=== PATIENT | female | born 1955 | race Caucasian/White ===

== ENCOUNTER → 2017-10-16 11:29 | Outpatient (CLI) | payer OTHER, SELFPAY ==
[2017-10-16 13:47] LABS: Absolute Lymphocyte Count 2.54 X10^3/ul (0.83-4.51); Absolute Neutrophil Count 5.5 X10^3/uL (2.0-7.7); Basophil# 0.06 X10^3/uL; Basophil% 0.7 % (0-1); Eosinophil# 0.31 X10^3/uL; Eosinophils% 3.4 % (0-5); Hematocrit 46.8 % (37-47); Lymphocyte # 2.54 X10^3/ul (4.0); Lymphocyte % 27.9 % (19-41); Mean Corp Hgb Conc 32.1 g/gl (32-36); Mean Corpuscular Hgb 27.4 pg (27.0-32.0); Mean Corpuscular Volume 85.4 fL (81-99); Mean Platelet Vol. 9.4 fl (6.2-12.0); Monocyte# 0.71 X10^3/uL; Monocyte% 7.8 % (0-10); Neutrophil # 5.47 X10^3/uL (2.7-7.7); Neutrophil % 59.9 % (47-70); Platelet Count 282 K/mm3 (150-450); RBC Distribution Width SD 43.6 fl (35.1-43.9); Red Blood Count 5.48 M/mm3 (4.2-5.4); White Blood Count 9.1 K/mm3 (4.4-11.0)
[2017-10-16 13:49] LABS: POSITIVE COUNT NO; POSITIVE DIFFERENTIAL NO; POSITIVE MORPHOLOGY NO
[2017-10-16 14:14] LABS: ALB/GLOB Ratio 0.9 RATIO (0.9-2.4); AST(SGOT) 14 U/L (15-37); Alanine Aminotransfer ALT/SGPT 22 U/L (13-56); Albumin, Serum 3.5 g/dL (3.2-5.0); Alkaline Phosphatase 102 U/L (45-117); Anion Gap 8 (5-15); BUN 7 mg/dL (7-18); BUN/Creat Ratio 7.5 RATIO (10-20); Calcium,Total 8.6 mg/dL (8.5-10.1); Chloride 96 mmol/L (98-107); Cholesterol 223 mg/dL (200); Creatinine, Serum 0.93 mg/dL (0.55-1.02); EST Glomerular Filtration Rate 65 mL/min (>60); Est Glom Filt Rate - Afr Amer 79 mL/min (>60); Globulin 3.8 g/dL (2.2-4.2); Glucose 251 mg/dL (74-106); High Density Lipoprotein 46 mg/dL; Potassium 3.9 mmol/L (3.5-5.1); Protein, Total 7.3 g/dL (6.4-8.2); Sodium Level 136 mmol/L (136-145); Triglycerides 172 mg/dL; Very Low Density Lipoprotein 34 mg/dL (5-40)
[2017-10-16 14:20] LABS: Hemoglobin A1c 10.2 % (4.2-6.3)
== END ==
PROVIDERS: Family Provider Family Medicine; PCP Family Medicine; Visit Provider Family Medicine
DX: I10 Essential (primary) hypertension (principal); E11.65 Type 2 diabetes mellitus with hyperglycemia; Z79.4 Long term (current) use of insulin; E78.5 Hyperlipidemia, unspecified
CPT/HCPCS: 36415; 80053; 80061; 83036; 85025

== ENCOUNTER → 2017-11-29 15:05 | Outpatient (CLI) | payer OTHER, SELFPAY ==
[2017-11-29 16:25] LABS: Anion Gap 12 (5-15); BUN 14 mg/dL (7-18); BUN/Creat Ratio 14.7 RATIO (10-20); Calcium,Total 9.2 mg/dL (8.5-10.1); Chloride 95 mmol/L (98-107); Creatinine, Serum 0.95 mg/dL (0.55-1.02); EST Glomerular Filtration Rate 63 mL/min (>60); Est Glom Filt Rate - Afr Amer 76 mL/min (>60); Glucose 279 mg/dL (74-106); Potassium 3.4 mmol/L (3.5-5.1); Sodium Level 135 mmol/L (136-145); Thyroid Stim Hormone (TSH) 2.21 uIU/mL (0.358-3.74)
== END ==
PROVIDERS: Family Provider Family Medicine; PCP Family Medicine; Visit Provider Nurse Practitioner Family
DX: I10 Essential (primary) hypertension (principal); R00.0 Tachycardia, unspecified; E89.0 Postprocedural hypothyroidism
CPT/HCPCS: 36415; 80048; 83735; 84443

== ENCOUNTER → 2017-12-11 13:50 | Outpatient (CLI) | payer OTHER, SELFPAY ==
--- NOTE | 2017-12-11 13:52 | BI_ITS ---
MAMMOGRAPHY - BILATERAL SCREENING REASON FOR EXAM: Female, 62 years old. Routine annual screening examination. PERTINENT HISTORY: Non-contributory. TECHNIQUE: Digital bilateral breast kwesi (3D mammographic acquisition) in the CC and MLO projections. 2-D mediolateral oblique (MLO) and craniocaudad (CC) views of both breasts were obtained. CAD: Full Field Digital Mammography with Computer Added Detection was performed. COMPARISON: Comparison is made with prior study of November 25, 2016 and July 21, 2015. FINDINGS: Breast Composition: The breasts are almost entirely fatty. There are no dominant masses or suspicious calcifications. Stable calcified 5.3 mm nodule in the superior lateral retroareolar region of the right breast. This is in keeping with a calcified fibroadenoma. No other significant abnormalities are identified. There has been no significant change since the prior study. BI/SCREENING MAMM (CAD), BILAT IMPRESSION: Stable bilateral screening mammogram. Yearly follow-up mammogram recommended. (A) ASSESSMENT CATEGORY: BIRADS Category 2: Benign. A letter regarding these results will be sent to the patient by the facility within 30 days. Approximately 10% of breast cancers are not detected by mammography. A normal mammogram should not delay biopsy of a clinically suspicious abnormality. [id number] Electronically Signed: Cliff Horowitz MD at 8:26 EDT Tel [phone], Service support ,
== END ==
PROVIDERS: Family Provider Family Medicine; PCP Family Medicine; Visit Provider Family Medicine
DX: Z12.31 Encounter for screening mammogram for malignant neoplasm of breast (principal)
CPT/HCPCS: 77063; 77067

== ENCOUNTER → 2018-01-17 11:13 | Outpatient (CLI) | payer OTHER, SELFPAY ==
[2018-01-17 14:59] LABS: Anion Gap 7 (5-15); BUN 11 mg/dL (7-18); BUN/Creat Ratio 11.3 RATIO (10-20); Calcium,Total 9.2 mg/dL (8.5-10.1); Chloride 96 mmol/L (98-107); Creatinine, Serum 0.97 mg/dL (0.55-1.02); EST Glomerular Filtration Rate 61 mL/min (>60); Est Glom Filt Rate - Afr Amer 74 mL/min (>60); Glucose 214 mg/dL (74-106); Magnesium 1.8 mg/dL (1.6-2.6); Potassium 3.7 mmol/L (3.5-5.1); Sodium Level 134 mmol/L (136-145); Thyroid Stim Hormone (TSH) 6.14 uIU/mL (0.358-3.74)
[2018-01-18 11:09] LABS: Hep C Antibodies <0.1 s/co ratio (0.0-0.9)
== END ==
PROVIDERS: Family Provider Family Medicine; PCP Family Medicine; Visit Provider Family Medicine
DX: I10 Essential (primary) hypertension (principal); R00.9 Unspecified abnormalities of heart beat; E89.0 Postprocedural hypothyroidism; Z11.59 Encounter for screening for other viral diseases
CPT/HCPCS: 36415; 80048; 83735; 84443; 86803

== ENCOUNTER → 2018-04-27 11:53 | Outpatient (CLI) | payer OTHER, SELFPAY ==
[2018-04-27 13:30] LABS: Microalbumin,Random Urine 11.3 mg/L (NO RANGE EST.); Microalbumin:Creatinine Ratio 8.2 mg/g CRE (<30 mg/g CRE)
[2018-04-27 13:47] LABS: Hemoglobin A1c 9.6 % (4.2-6.3)
[2018-04-27 13:48] LABS: Anion Gap 9 (5-15); BUN 9 mg/dL (7-18); BUN/Creat Ratio 10.4 RATIO (10-20); Calcium,Total 8.7 mg/dL (8.5-10.1); Chloride 99 mmol/L (98-107); Cholesterol 122 mg/dL (200); Creatinine, Serum 0.87 mg/dL (0.55-1.02); EST Glomerular Filtration Rate 70 mL/min (>60); Est Glom Filt Rate - Afr Amer 85 mL/min (>60); Glucose 258 mg/dL (74-106); High Density Lipoprotein 43 mg/dL; Magnesium 1.9 mg/dL (1.6-2.6); Potassium 3.6 mmol/L (3.5-5.1); Sodium Level 137 mmol/L (136-145); T4 Free Direct 1.36 ng/dL (0.76-1.46); Thyroid Stim Hormone (TSH) 1.38 uIU/mL (0.358-3.74); Triglycerides 121 mg/dL; Very Low Density Lipoprotein 24 mg/dL (5-40)
[2018-04-28 08:52] LABS: Hep C Antibodies <0.1 s/co ratio (0.0-0.9)
== END ==
PROVIDERS: Family Provider Family Medicine; PCP Family Medicine; Visit Provider Family Medicine
DX: E89.0 Postprocedural hypothyroidism (principal); E11.9 Type 2 diabetes mellitus without complications; E78.5 Hyperlipidemia, unspecified
CPT/HCPCS: 36415; 80048; 80061; 82043; 82570; 83036; 83735; 84436; 84439; 84443; 86803

== ENCOUNTER 2018-08-08 17:45 | Emergency (ER) | payer OTHER, SELFPAY ==
[2018-08-08 17:46] VITALS: BP 152/70; PULSE 89; RESP 14; TEMP 36.3; O2SAT 96; BMI 38.4
--- NOTE | 2018-08-08 18:32 | EKG12_ITS ---
Test Reason : Blood Pressure : / mmHG Vent. Rate : 093 BPM Atrial Rate : 093 BPM P-R Int : 156 ms QRS Dur : 080 ms QT Int : 372 ms P-R-T Axes : 028 -12 008 degrees QTc Int : 462 ms Normal sinus rhythm Low voltage QRS Septal infarct , age undetermined Inferior infarct , age undetermined Abnormal ECG Confirmed by NGUYỄN GRIMM, IVAN ([id number]), editor map ELENA OSBORN ([id number]) on 08/10/2018 2:39:23 PM Referred By: MAK Confirmed By:IVAN ADRIAN MD
--- NOTE | 2018-08-08 18:36 | CT_ITS ---
STUDY: CT BRAIN WITHOUT CONTRAST REASON FOR EXAM: Female, 62 years old. Headache, weakness RADIATION DOSAGE (If Supplied By Facility): CTDIvol = ( 44.99 ) mGy, DLP = ( 796.11 ) mGycm TECHNIQUE: Transaxial CT imaging of the brain was performed without administration of intravenous contrast material. Individualized dose optimization techniques were used for this CT. COMPARISON: October 12, 2016 FINDINGS: The soft tissues are unremarkable. The osseous structures are unremarkable. Normal size ventricles and extra-axial spaces for the patient's age. The white matter tracts are unremarkable. The basal ganglia and thalami are unremarkable. No abnormalities are seen in the brainstem. The cerebellum is unremarkable. There are moderate vascular calcifications. There is no intracranial hemorrhage. There are no findings of acute ischemia. The visualized sinuses are unremarkable. CT/Brain/Head without Contrast IMPRESSION: No acute intracranial abnormalities. Electronically Signed: Mary Atwood MD at 20:30 EST Tel Direct: [phone], Service support ,
--- NOTE | 2018-08-08 18:36 | RAD_ITS ---
STUDY: X-RAY CHEST REASON FOR EXAM: Female, 62 years old. Worsening shortness of breath TECHNIQUE: Single AP portable view of the chest. COMPARISON: 11/11/2016 FINDINGS: EKG leads overlie the chest The lungs are clear and expanded. There is no demonstrated pleural abnormality. Normal size heart. Normal mediastinum and jud. Normal visualized pulmonary arteries. Normal visualized aortic arch and descending thoracic aorta. Normal visualized thoracic spine. Normal visualized ribs, clavicles, and shoulders. Stable sclerotic lesion in the proximal right humerus RAD/Chest 1 View (Portable) IMPRESSION: No acute pulmonary process Electronically Signed: Stefano Ren MD at 19:05 EST , Service support ,
--- NOTE | 2018-08-08 18:43 | ED.DCSUM_ITS ---
- ER Visit Summary Date of Service: 08/08/18 Chief Complaint: [] Generalized fatigue headache no energy History of Present Illness: The patient is a 62 F [] who basically woke today feeling fine she went to hospital appointments with then mid afternoon around 2:00 as she had lunch with at [employer], they went home they both lay down, sometime around 3 or 4:00 she complained of generalized fatigue and a headache, she has had no fever no cough no chest pain abdominal pain numbness weakness paresthesias she simply has no energy does not want to move or get up versus family moving her around the home so she was brought to the hospital Diabetes is generally well controlled apparently her blood sugar came up high as 300 its insulin managed with no difficulty, on examination here in the ED when I talked her she simply complains of a very mild headache and generalized whole body fatigue she denies neck pain or stiffness chest pain abdominal pain she cannot explain why she suddenly developed this diffuse fatigue Physical Examination: [] 152/70 afebrile General, no distress resting comfortably HEENT is generally unremarkable The neck is supple no adenopathy, full range of motion Cardiovascular, regular rate and rhythm Lungs, clear bilateral Abdomen, soft nontender Extremities, no clubbing cyanosis or edema Neurologic, awake alert answering questions appropriately moving all 4 extremities NIH is 0, she is moving all 4 extremities but simply states she has no energy to move, her NIH is 0 she is awake and alert answering questions appropriately just complains of being very tired Test Results: [] Emergency Department Course and Treatment: [] Given her complaints all the above screening labs fluids CT had The patient's EKG shows nothing acute all of the screening labs head CT unremarkable potassium 3.1 oral supplementation provided on reevaluation after IV fluids she states she is feeling better she has much more energy she is more talkative and awake, we discussed inpatient versus outpatient management the family expressed concerns about cost of admission and difficulty with insurance companies, and indicated a preference to be discharged home for outpatient management, they showed me her glucometer meter and apparently her blood sugars have been spiking to 350 I suggest that she really try to monitor her food intake and stick to a diabetic diet follow with her family physicians and outpatient providers in the next day or 2 return for change in symptoms and they are very comfortable with this plan Treatment Plan: [] Disposition: [] Stable, home Impression: [] Fatigue improved history of diabetes This note was generated with [employer] dictation software. It may contain incorrect words, spelling, and punctuation that were not noted in review of the chart prior to signing ED Disposition - Plan for ED Patient: Chief Complaint: General Illness Referrals: Korey Guillen III, MD [Primary Care Provider] -
[2018-08-08 19:22] LABS: Bacteria 0 SEEN /hpf (None Seen); Mucous, Urine 0 SEEN /hpf (<or=2+); Red Blood Cells-Urine 0 SEEN /hpf (0-5); White Blood Cells 0 SEEN /hpf (0-5)
[2018-08-08] MEDS: 0.9% Normal Saline 1,000 ML 1000 ML IV (19:45)
[2018-08-08 19:46] VITALS: BP 149/75; PULSE 76; RESP 16; O2SAT 95
[2018-08-08 19:56] LABS: Absolute Lymphocyte Count 1.81 X10^3/ul (0.83-4.51); Absolute Neutrophil Count 6.7 X10^3/uL (2.0-7.7); Basophil# 0.03 X10^3/uL; Basophil% 0.3 % (0-1); Eosinophil# 0.16 X10^3/uL; Eosinophils% 1.7 % (0-5); Hematocrit 42.8 % (37-47); Hemoglobin 14.1 g/dl (12.0-15.0); Lymphocyte # 1.81 X10^3/ul (4.0); Lymphocyte % 19.4 % (19-41); Mean Corp Hgb Conc 32.9 g/gl (32-36); Mean Corpuscular Hgb 27.8 pg (27.0-32.0); Mean Corpuscular Volume 84.3 fL (81-99); Monocyte# 0.56 X10^3/uL; Neutrophil # 6.74 X10^3/uL (2.7-7.7); Neutrophil % 72.5 % (47-70); Platelet Count 281 K/mm3 (150-450); RBC Distribution Width CV 13.4 % (11.6-14.6); RBC Distribution Width SD 41.1 fl (35.1-43.9); Red Blood Count 5.08 M/mm3 (4.2-5.4); White Blood Count 9.3 K/mm3 (4.4-11.0)
[2018-08-08 19:57] LABS: POSITIVE COUNT NO; POSITIVE DIFFERENTIAL NO; POSITIVE MORPHOLOGY NO
[2018-08-08 19:57] LABS: Color, Urine Yellow (Yellow); Glucose, Dipstick 100 mg/dl (Normal); Ketone-Dipstick Negative (Negative); Leukocyte Esterase-Dipstick Negative /ul (Negative); Nitrite-Dipstick Negative (Negative); Occult Blood-Urine Negative /ul (Negative); Protein-Dipstick Negative (Negative); Urine Bilirubin Dipstick Negative (Negative); Urine Clarity Clear (Clear); Urine Urobilinogen Normal (Normal)
[2018-08-08 20:09] LABS: Squamous Epithelial Cells - UA 0-5 SEEN /hpf (5-10)
[2018-08-08 20:14] LABS: AST(SGOT) 12 U/L (15-37); Alanine Aminotransfer ALT/SGPT 15 U/L (13-56); Albumin, Serum 3.4 g/dL (3.2-5.0); Alkaline Phosphatase 120 U/L (45-117); Anion Gap 7 (5-15); BUN 15 mg/dL (7-18); BUN/Creat Ratio 16.3 RATIO (10-20); Bilirubin, Direct 0.17 mg/dL (0.00-0.30); Calcium,Total 9.2 mg/dL (8.5-10.1); Chloride 99 mmol/L (98-107); Creatinine, Serum 0.92 mg/dL (0.55-1.02); EST Glomerular Filtration Rate 66 mL/min (>60); Est Glom Filt Rate - Afr Amer 79 mL/min (>60); Estimated Creatinine Clearance 65.41 ml/min; Globulin 3.8 g/dL (2.2-4.2); Glucose 159 mg/dL (74-106); Lipase 57 U/L (73-393); Potassium 3.1 mmol/L (3.5-5.1); Protein, Total 7.2 g/dL (6.4-8.2); Sodium Level 139 mmol/L (136-145)
--- NOTE | 2018-08-08 21:06 | ED.DEP ---
ED Disposition - Plan for ED Patient: Chief Complaint: General Illness Instructions: ED Weakness [facility] Referrals: Korey Guillen III, MD [Primary Care Provider] -
[2018-08-08 21:39] VITALS: BP 158/75; PULSE 86; RESP 16; O2SAT 95
[2018-08-08 21:40] VITALS: BP 158/75; PULSE 86; RESP 16; O2SAT 95
== END 2018-08-08 21:43 | disposition home or self-care (01) ==
PROVIDERS: Emergency Provider Emergency Medicine; Family Provider Family Medicine; PCP Family Medicine
DX: R53.83 Other fatigue (principal); E10.9 Type 1 diabetes mellitus without complications; R51 Headache; Z79.82 Long term (current) use of aspirin; Z79.4 Long term (current) use of insulin; Z79.899 Other long term (current) drug therapy
CPT/HCPCS: 70450; 71045; 80048; 80076; 81001; 82009; 83690; 84484; 85025; 93005; 96360; 96361; 99285; J7030; A4216

== ENCOUNTER → 2018-09-03 10:18 | Outpatient (CLI) | payer OTHER, SELFPAY ==
[2018-08-08 17:46] VITALS: BMI 38.4
[2018-09-03 12:34] LABS: AST(SGOT) 17 U/L (15-37); Alanine Aminotransfer ALT/SGPT 21 U/L (13-56); Albumin, Serum 3.6 g/dL (3.2-5.0); Alkaline Phosphatase 112 U/L (45-117); Anion Gap 11 (5-15); BUN 16 mg/dL (7-18); BUN/Creat Ratio 17.5 RATIO (10-20); Calcium,Total 9.1 mg/dL (8.5-10.1); Chloride 100 mmol/L (98-107); Creatinine, Serum 0.91 mg/dL (0.55-1.02); EST Glomerular Filtration Rate 66 mL/min (>60); Est Glom Filt Rate - Afr Amer 80 mL/min (>60); Globulin 3.7 g/dL (2.2-4.2); Glucose 190 mg/dL (74-106); Potassium 3.8 mmol/L (3.5-5.1); Protein, Total 7.3 g/dL (6.4-8.2); Sodium Level 140 mmol/L (136-145)
[2018-09-03 12:35] LABS: Hemoglobin A1c 8.8 % (4.2-6.3)
== END ==
PROVIDERS: Family Provider Family Medicine; PCP Family Medicine; Referring Provider Family Medicine; Visit Provider Family Medicine
DX: E11.9 Type 2 diabetes mellitus without complications (principal)
CPT/HCPCS: 36415; 80053; 83036

== ENCOUNTER → 2018-12-07 12:01 | Outpatient (CLI) | payer OTHER, SELFPAY ==
[2018-12-07 14:25] LABS: AST(SGOT) 20 U/L (15-37); Alanine Aminotransfer ALT/SGPT 21 U/L (13-56); Albumin, Serum 3.9 g/dL (3.2-5.0); Alkaline Phosphatase 121 U/L (45-117); Anion Gap 6 (5-15); BUN 18 mg/dL (7-18); BUN/Creat Ratio 15.3 RATIO (10-20); Calcium,Total 9.3 mg/dL (8.5-10.1); Chloride 99 mmol/L (98-107); Cholesterol 146 mg/dL (200); Creatinine, Serum 1.18 mg/dL (0.55-1.02); EST Glomerular Filtration Rate 49 mL/min (>60); Est Glom Filt Rate - Afr Amer 59 mL/min (>60); Globulin 3.9 g/dL (2.2-4.2); Glucose 250 mg/dL (74-106); High Density Lipoprotein 44 mg/dL; Potassium 3.7 mmol/L (3.5-5.1); Protein, Total 7.8 g/dL (6.4-8.2); Sodium Level 134 mmol/L (136-145); Triglycerides 156 mg/dL; Very Low Density Lipoprotein 31 mg/dL (5-40)
== END ==
PROVIDERS: Family Provider Family Medicine; PCP Family Medicine; Referring Provider Family Medicine; Visit Provider Family Medicine
DX: E11.9 Type 2 diabetes mellitus without complications (principal); E78.5 Hyperlipidemia, unspecified
CPT/HCPCS: 36415; 80053; 80061; 83036

== ENCOUNTER → 2018-12-25 13:53 | Outpatient (CLI) | payer OTHER, SELFPAY ==
--- NOTE | 2018-12-25 13:56 | ECHOCS_ITS ---
Reason For Study: HTN (benign) Procedure This was a 2D Doppler, Color Flow transthoracic echocardiogram. The study was technically difficult. Contrast injection was performed. Exam performed in department. Left Ventricle Normal LV size. Left ventricular systolic function is normal. The estimated ejection fraction is 60 %. Diastolic function is indeterminate. No regional wall motion abnormalities noted. Right Ventricle Normal RV size. Normal systolic function. Atria The left atrium is mildly enlarged. Normal right atrium. No doppler evidence for ASD. Mitral Valve There is mild mitral annular calcification. Mild focal mitral valve calcification of the anterior leaflet. The mitral valve chordae are thickened and/or calcified. Trivial mitral valve insufficiency. Tricuspid Valve Normal tricuspid valve. Trivial tricuspid valve insufficiency. Unable to estimate RV systolic pressure/pulmonary artery pressure due to technically difficult study. Aortic Valve The aortic valve is not well visualized. Pulmonic Valve The pulmonic valve is not well visualized. Trivial pulmonic valve insufficiency identified. Great Vessels Normal sized aortic root. Pericardium/Pleural No pericardial effusion. Medication 22 gauge I.V. with prn adaptor inserted into left arm. Diluted definity 3.0ml given slow IV push to enhance endocardial definition. MMode/2D Measurements & Calculations LVIDd: 4.2 cm IVSd: 1.0 cm Ao root diam: 2.9 cm LVIDs: 2.6 cm LVPWd: 0.99 cm RVDd: 2.7 cm FS: 37.8 % LAV(MOD-bp): 48.5 ml LA A4 area: 16.8 cm2 LA dimension(2D): 4.0 cm LAV(MOD-bp) Indexed: 23.1 ml/m2 LAV(MOD-sp2): 43.4 ml LAV(MOD-sp4): 49.1 ml Doppler Measurements & Calculations MV E max jonathan: 79.9 cm/sec Lat Peak E' Jonathan: 5.9 cm/sec Med Peak E' Jonathan: 4.5 cm/sec MV A max jonathan: 126.0 cm/sec E/E' lat: 13.5 E/E' med: 17.9 MV E/A: 0.63 Ao V2 max: 101.8 cm/sec LV V1 max: 79.2 cm/sec PA V2 max: 95.9 cm/sec Ao max P.1 mmHg LV V1 max P.5 mmHg Interpretation Summary The study was technically difficult. Contrast injection was performed. Left ventricular systolic function is normal. The estimated ejection fraction is 60 %. The left atrium is mildly enlarged. Mild focal mitral valve calcification of the anterior leaflet. The mitral valve chordae are thickened and/or calcified. Trivial mitral valve insufficiency. Trivial pulmonic valve insufficiency identified. Unable to estimate RV systolic pressure/pulmonary artery pressure due to technically difficult study. Diastolic function is indeterminate. Ordering Physician: Korey Guillen Referring Physician: Korey Guillen Performed By: Candy Blandon, MIRACLE, RVT
== END ==
PROVIDERS: Family Provider Family Medicine; PCP Family Medicine; Referring Provider Family Medicine; Visit Provider Family Medicine
DX: I10 Essential (primary) hypertension (principal); R06.09 Other forms of dyspnea
CPT/HCPCS: 93306; Q9957; A4216; C8929

== ENCOUNTER → 2019-02-28 14:01 | Outpatient (CLI) | payer OTHER, SELFPAY ==
[2019-02-14 11:00] VITALS: BMI 38.4
[2019-03-01 09:57] LABS: Hematocrit 41.4 % (37-47); Hemoglobin 13.9 g/dl (12.0-15.0); Mean Corp Hgb Conc 33.6 g/gl (32-36); Mean Corpuscular Hgb 28.8 pg (27.0-32.0); Mean Corpuscular Volume 85.9 fL (81-99); Mean Platelet Vol. 9.9 fl (6.2-12.0); Platelet Count 257 K/mm3 (150-450); RBC Distribution Width CV 13.6 % (11.6-14.6); RBC Distribution Width SD 42.8 fl (35.1-43.9); Red Blood Count 4.82 M/mm3 (4.2-5.4); White Blood Count 8.8 K/mm3 (4.4-11.0)
[2019-03-01 09:58] LABS: Scan Indicated on CBC? Y/N NO
[2019-03-01 10:16] LABS: Hemoglobin A1c 8.1 % (4.2-6.3)
== END ==
LOC: LAB 14:04 → LAB.FUTURE 03-01 05:56
PROVIDERS: Family Provider Family Medicine; PCP Family Medicine; Referring Provider Family Medicine; Visit Provider Family Medicine
DX: E11.65 Type 2 diabetes mellitus with hyperglycemia (principal); E89.0 Postprocedural hypothyroidism; I10 Essential (primary) hypertension; E78.5 Hyperlipidemia, unspecified; Z79.4 Long term (current) use of insulin
CPT/HCPCS: 36415; 83036; 85027

== ENCOUNTER → 2019-03-01 15:12 | Outpatient (CLI) | payer OTHER, SELFPAY ==
[2019-02-14 11:00] VITALS: BMI 38.4
[2019-03-01 17:41] LABS: ALB/GLOB Ratio 0.9 RATIO (0.9-2.4); AST(SGOT) 12 U/L (15-37); Alanine Aminotransfer ALT/SGPT 20 U/L (13-56); Albumin, Serum 3.6 g/dL (3.2-5.0); Alkaline Phosphatase 107 U/L (45-117); Anion Gap 10 (5-15); BUN 13 mg/dL (7-18); Calcium,Total 9.3 mg/dL (8.5-10.1); Chloride 98 mmol/L (98-107); EST Glomerular Filtration Rate 44 mL/min (>60); Est Glom Filt Rate - Afr Amer 53 mL/min (>60); Globulin 3.8 g/dL (2.2-4.2); Glucose 232 mg/dL (74-106); Potassium 3.8 mmol/L (3.5-5.1); Protein, Total 7.4 g/dL (6.4-8.2); Sodium Level 138 mmol/L (136-145)
== END ==
PROVIDERS: Family Provider Family Medicine; PCP Family Medicine; Referring Provider Family Medicine; Visit Provider Family Medicine
DX: E11.65 Type 2 diabetes mellitus with hyperglycemia (principal); I10 Essential (primary) hypertension; Z79.4 Long term (current) use of insulin
CPT/HCPCS: 80053

== ENCOUNTER → 2019-03-05 06:01 | Outpatient (CLI) | payer OTHER, SELFPAY ==
[2019-02-14 11:00] VITALS: BMI 38.4
--- NOTE | 2019-03-05 11:33 | STRESSREP ---
Stress Test Report Date: 03-05-19 Procedure: Pharmacologic stress nuclear imaging study Indications: Chest pain Consent: Per the patient Procedure: The patient underwent pharmacologic (Regadenoson) evaluation with a peak heart rate of 102 beats per minute (65 %predicted maximal heart rate) and a peak blood pressure of 124/78 mmHg. The baseline ECG demonstrated normal sinus rhythm. The peak pharmacologic ECG demonstrated no obvious ECG changes. There were no cardiac dysrhythmias pretest, during pharmacologic infusion, or recovery. There was no complaint of chest discomfort during pharmacologic infusion or recovery. The examination was discontinued secondary to completion of protocol. Impression: 1. Pharmacologic (Regadenoson) evaluation 2. Peak pharmacologic ECG with no obvious ECG changes. 3. There were no cardiac dysrhythmias pretest, during pharmacologic infusion, or recovery. 4. Nuclear images pending Myocardial perfusion imaging study: Technique: The patient was injected with 14.3 millicuries of technetium 99m Cardiolite and subsequently rest SPECT Cardiolite nuclear imaging was obtained in the horizontal long, vertical long, and short axis views. The patient underwent pharmacologic (Regadenoson) evaluation with a peak heart rate of 102 beats per minute (65 % percent predicted maximal heart rate) and a peak blood pressure of 124/78 mmHg. The patient was injected with 44.6 millicuries of technetium 99m Cardiolite and subsequently stress SPECT Cardiolite nuclear imaging was obtained in the horizontal long, vertical long, and short axis views. A gated Cardiolite study at peak stress was obtained. Interpretation: Rest and stress SPECT Cardiolite nuclear imaging status post realignment and normalization demonstrate a small area of subtle diminished tracer uptake in the distal anterior/anteroapical segment at stress. There is end systolic thickening and brightening. The gated Cardiolite study demonstrates myocardial thickening and inward wall motion. The reported LVEF is 77 %. Impression: 1. Rest and stress SPECT currently nuclear imaging demonstrate a small area of subtle diminished tracer uptake in the distal anterior/anterior apical segments at stress potentially compatible with shifting soft tissue attenuation/artifact, however, an element of stress-induced myocardial ischemia cannot necessarily be excluded. 2. The gated Cardiolite study reports an LVEF of 77 %. This note was generated with [employer] software. It may contain incorrect words, spelling, and punctuation that were not noted in checking the note before signing.
== END ==
PROVIDERS: Family Provider Family Medicine; PCP Family Medicine; Referring Provider Internal Medicine Cardiovascular Disease; Visit Provider Internal Medicine Cardiovascular Disease
DX: R07.9 Chest pain, unspecified (principal)
CPT/HCPCS: 78452; 93017; A9500; A4216; J2785

== ENCOUNTER → 2019-03-08 16:01 | Outpatient (CLI) | payer OTHER, SELFPAY ==
[2019-03-08 10:16] VITALS: BMI 38.4
--- NOTE | 2019-03-08 16:10 | RAD_ITS ---
STUDY: X-RAY CHEST REASON FOR EXAM: Female, 63 years old. Chest pain TECHNIQUE: Frontal and lateral views of the chest. COMPARISON: August 08, 2018 FINDINGS: The lungs are clear and expanded. There is no demonstrated pleural abnormality. Normal size heart. Normal mediastinum and jud. Normal visualized pulmonary arteries. Normal visualized aortic arch and descending thoracic aorta. Normal visualized thoracic spine. Normal visualized ribs, clavicles, and shoulders. There is no demonstrated abnormality of the visualized soft tissue structures of the upper abdomen. RAD/Chest PA and Lateral IMPRESSION: Normal x-ray examination of the chest. Electronically Signed: Rui Victoria MD at 16:26 EDT , Service support ,
[2019-03-08 17:28] LABS: Prothrombin Time (Protime)PT. 13.1 SECONDS (11.7-14.9)
[2019-03-08 17:29] LABS: Partial Thromboplast Time 29.7 Seconds (24.1-36.2)
== END ==
PROVIDERS: Family Provider Family Medicine; PCP Family Medicine; Referring Provider Internal Medicine Cardiovascular Disease; Visit Provider Internal Medicine Cardiovascular Disease
DX: R94.39 Abnormal result of other cardiovascular function study (principal); R07.9 Chest pain, unspecified; I10 Essential (primary) hypertension
CPT/HCPCS: 71046; 85610; 85730

== ENCOUNTER 2019-03-13 07:38 | Day surgery (SDC) | payer OTHER, SELFPAY ==
[2019-02-14 11:00] VITALS: BMI 38.4
[2019-03-08 10:16] VITALS: BMI 38.4
[2019-03-12 08:02] VITALS: BMI 45.1
[2019-03-13] VITALS (20 sets, daily range): BP systolic 100–139; BP diastolic 62–85; PULSE 10–102; RESP 12–23; TEMP 36.2–37; O2SAT 94–98; BMI 46.7; BMI 46.6
--- NOTE | 2019-03-13 08:24 | PCM.HP.BLA ---
Problem List (1) Abnormal stress test Status: Acute (2) Chest pain Status: Acute (3) HLD (hyperlipidemia) Status: Chronic Qualifiers: (4) Essential hypertension Status: Chronic (5) Type II diabetes mellitus Status: Chronic Qualifiers: Comment: Dx : 1997 Last exacerbation : DKA : years ago Hypoglycemic episode : never ER visit : years ago (6) Hypothyroidism Status: Chronic Qualifiers: History and Physical Date of Admission: 03/13/19 HPI History of Present Illness Details: This is a 63-year-old white female who presents today for outpatient cardiovascular consultation. She is previously been followed by [facility] cardiology. In the past she has been evaluated for concerns of chest discomfort. She is undergone noninvasive and invasive studies. She states that the moment she has been concerned about recurrent chest discomfort. She has had episodes of both sharp chest discomfort as well as episodes of a non-sharp/heavy chest discomfort. She states this is more prominent with activity such as ambulation to and from the mailbox. It can be associated with shortness of breath and dyspnea. She has not necessarily had nausea or emesis or become diaphoretic. There is been no near syncope or syncope. She does have an ECG from this day. At the present time she appeared to be an underlying sinus rhythm with low voltage QRS in the limb leads and poor R wave progression. She had no acute ECG changes. This was compared to a previous ECG from 02/05/2019. In comparison to that ECG there did not appear to be any significant changes. Intake Vital Signs 02/14/19 Body Mass Index (BMI) 38.4 02/14/19 Height 5 ft 2 in 02/14/19 Weight: 247 lb 02/14/19 Body Mass Index (BMI) 45.1 02/14/19 Blood Pressure 128/62 H 02/14/19 Blood Pressure Location Lt brachial 02/14/19 Blood Pressure Position Sitting 02/14/19 Respiratory Rate 16 02/14/19 Pulse Rate 80 02/14/19 Pulse Source Auscultation Intake Visit Reasons: [place] [facility], on/off [employer] [place]NEY LEE, tachy Cook Fishing Vessel Required: No Accompanied by: Friend Allergies Fish Containing Products Allergy (Verified 02/14/19 10:45) Hives fluconazole [From Diflucan] Allergy (Verified 02/14/19 10:45) Hives iodine Allergy (Verified 02/14/19 10:45) Unknown orange Allergy (Verified 02/14/19 10:45) Hives Penicillins Allergy (Verified 02/14/19 10:45) Unknown pioglitazone [From Actos] Allergy (Verified 02/14/19 10:45) Hives povidone-iodine [From Betadine] Allergy (Verified 02/14/19 10:45) Unknown soap [From Betadine] Allergy (Verified 02/14/19 10:45) Unknown Sulfa (Sulfonamide Antibiotics) Allergy (Verified 02/14/19 10:45) Unknown sulfamethoxazole [From Bactrim] Allergy (Verified 02/14/19 10:45) Unknown tetanus and diphtheria toxoids Allergy (Verified 02/14/19 10:45) Hives trimethoprim [From Bactrim] Allergy (Verified 02/14/19 10:45) Unknown Medications Aspirin 325 mg PO DAILY@0800 11/11/16 [History Confirmed 02/14/19] Nitroglycerin 0.4 mg SL PRN PRN 11/11/16 [History Confirmed 02/14/19] epinephrine 0.3 mg/0.3 mL injection, auto-injector 0.3 mg IM ONCE 10/30/17 [History Confirmed 02/14/19] insulin regular human U- 500concentrate 500 unit/mL subcutaneous soln See Rx Instructions SC TID ml 10/30/17 [History Confirmed 02/14/19] dulaglutide 0.75 mg/0.5 mL subcutaneous pen injector 1.5 mg SC QWEEK ml 11/22/17 [History Confirmed 02/14/19] rosuvastatin 20 mg tablet 20 mg PO QDAY 11/22/17 [History Confirmed 02/14/19] blood sugar diagnostic strips See Dose Instructions .ROUTE .MEDSUPPLY #550 ea 03/05/18 [Rx Confirmed 02/14/19] furosemide 40 mg tablet 40 mg PO DAILY tab 02/12/19 [History Confirmed 02/14/19] hydrochlorothiazide 25 mg tablet 12.5 mg PO DAILY tab 02/12/19 [History Confirmed 02/14/19] meloxicam 7.5 mg tablet 15 mg PO DAILY tab 02/12/19 [History Confirmed 02/14/19] ranitidine 150 mg capsule 150 mg PO BID cap 02/12/19 [History Confirmed 02/14/19] spironolactone 25 mg tablet 25 mg PO BID tab 02/12/19 [History Confirmed 02/14/19] levothyroxine 150 mcg tablet 150 mcg PO DAILY 02/14/19 [History Confirmed 02/14/19] [facility] Medical History Essential hypertension (Chronic) Obesity (Chronic) Hypothyroidism (Chronic) HLD (hyperlipidemia) (Chronic) Type II diabetes mellitus (Chronic) Chapman's palsy (Acute) Arthritis (Acute) Back problem (Acute) Heart murmur (Acute) Kidney stones (Acute) Bone fracture (Resolved) Hives (Resolved) Recurrent UTI (Resolved) Anemia (Inactive) Asthma (Inactive) HTN (hypertension) (Inactive) Thyroid disease (Inactive) Surgical History History of left heart catheterization (LHC) (Resolved) H/O arthroscopic knee surgery (Resolved) H/O colonoscopy (Resolved) H/O sinus surgery (Resolved) H/O thyroidectomy (Resolved) History of tonsillectomy (Resolved) History of total abdominal hysterectomy (Resolved) Hx of cholecystectomy (Resolved) H/O right heart catheterization (Inactive) Family History Mother Diabetes Heart disease Hypertension High cholesterol Kidney disease Cancer Father Diabetes Hypertension High cholesterol Cancer Sister Cancer Social History Smoking Status: Never smoker second hand exposure: No alcohol intake: never substance use type: does not use caffeine: Yes Type: carbonated beverages Number of servings: 1, tea Number of servings: 1 ROS Const Const: Positive for fatigue (increased); negative for weakness, frequent falls, excessive sweating, weight gain or weight loss Eyes Eyes: Negative for transient loss of vision, blurry vision or change in vision ENT ENT: Negative for dizziness or balance problems Cardio Chest Pain: Yes Character: sharp, squeezing Onset: at rest, exercise Location: mid sternal Duration: minutes Relieving: rest, other (nitro x1) Palpitations: Yes feels like its: fast Edema: Bilateral (LE,pedals) Muscle aches with walking: None Resp Respiratory: Positive for SOB with activity (increased) and SOB at rest GI GI: Negative vomiting or vomiting blood/hematemesis : Negative for hematuria Musc Musc: Positive for joint pain (bilat knee); negative for muscle aches/ myalgia, muscle weakness or balance problems Skin Skin: Negative non-healing lesions or rash Neuro Neuro: Positive for lightheadedness (driving in traffic, BS high/low); negative for dizziness, orthostatic symptoms, frequent falls, weakness or blurry vision [place] Hematologic/Lymphatic: Negative for easy bleeding Endo Endo: Positive for fatigue (increased); negative for excessive sweating Psych Psych: Negative for anxiety or depression Allergy Allergy/Immunology: Negative for hives, Negative for rash Cardiology Exam Const Appearance: cooperative, healthy appearing, comfortable, no acute distress, well developed and well groomed Nutritional Appearance: obese Orientation: alert, awake and oriented x3 Head Head: normal to inspection, normocephalic and atraumatic Ears: hearing grossly normal bilaterally Nose: external nose normal Face and Sinus: face symmetric Mouth: oral mucosae normal Teeth and gingiva: fair dentition Eyes Eyelids: eyelids normal Conjunctivae: conjunctivae normal Pupils: PERRL EOM: EOM intact bilaterally Neck Neck: normal visual inspection and full ROM Carotids: normal carotid upstroke Chest Chest inspection: normal inspection of the chest and symmetric chest movement Auscultation: Bilateral: Clear to Auscultation Cardio Palpation: normal PMI Rate: regular rate Rhythm: regular rhythm Heart sounds: S1 normal and S2 normal GI GI: normal to inspection, soft, bowel sounds present and obese Neuro General: alert, awake, oriented x3 and moves all extremities Skin Skin: no rashes or lesions noted Extremities Pulses: Normal: Right Radial Pulse Lower Extremity Edema: +2: Bilateral Psych Psychological: normal affect Assessment & Plan 1. Chest pain R07.9 Plan At the present time she has episodes of chest discomfort. Her chest discomfort is somewhat mixed in characteristics. Her graph she has had previous noninvasive and invasive evaluation as noted above. At the moment she will continue medical management. She will undergo further evaluation with a pharmacologic stress nuclear imaging study. Depending upon the findings she may or may not need repeat cardiac catheterization. If she does, based on her history of dye allergy, she will require premedication. Orders Orders: Nuclear Stress Test - Chemical Today 2. Edema R60.9 Plan She does have a history of lower extremity edema. She states her amlodipine was discontinued as this could be a contributing factor. She continues with an element of lower extremity edema. The moment it appears to be mild. She will continue her current medical management with her diuretic therapy. 3. Hyperlipidemia, unspecified hyperlipidemia type E78.5 Plan She does have a history of hyperlipidemia. She is on lipid-lowering medication. This will be continued. 4. Essential hypertension I10 Plan Her blood pressure at the moment appears to be recently well controlled. She will continue her current medical therapy. Orders Orders: 12 Lead EKG performed by [facility] Today 5. Type 2 diabetes mellitus without complication, with long-term current use of insulin E11.9 Dx : 1995 Last exacerbation : DKA : years ago Hypoglycemic episode : never ER visit : years ago Plan She will continue under evaluation care by her primary care physician. Plan Detail Additional Comments At the present time she will continue her current medical therapy. She will proceed with further noninvasive evaluation as noted above. Depending upon her findings she may need further cardiac or noncardiac evaluation. The above was discussed with her. She was agreeable to this approach. Thank you for allowing me to participate in the care of your patient. Please don't hesitate to call if any issues arise. This note was generated using a voice recognition system and there may be incorrect words, spelling or punctuation that were not noted when reviewing the office note prior to saving. Follow Up 6 Months (with PFM) Coding Level of Care Code Off vis,new,level 4 Diagnoses Chest pain R07.9 Edema R60.9 Hyperlipidemia, unspecified hyperlipidemia type E78.5 ??Hyperlipidemia type: unspecified Essential hypertension I10 Type 2 diabetes mellitus without complication, with long-term current use of insulin E11.9 ??Diabetes mellitus director long term care insulin use: with penitentiary use ??Diabetes mellitus complication status: without complication Coding Level of Care Code Off vis,new,level 4 Diagnoses Chest pain R07.9 Edema R60.9 Hyperlipidemia, unspecified hyperlipidemia type E78.5 ??Hyperlipidemia type: unspecified Essential hypertension I10 Type 2 diabetes mellitus without complication, with long-term current use of insulin E11.9 ??Diabetes mellitus penitentiary insulin use: with director long term care use ??Diabetes mellitus complication status: without complication Supplemental Info Supplemental Information Transthoracic echocardiogram: 12-25-18 Interpretation Summary The study was technically difficult. Contrast injection was performed. Left ventricular systolic function is normal. The estimated ejection fraction is 60 %. The left atrium is mildly enlarged. Mild focal mitral valve calcification of the anterior leaflet. The mitral valve chordae are thickened and/or calcified. Trivial mitral valve insufficiency. Trivial pulmonic valve insufficiency identified. Unable to estimate RV systolic pressure/pulmonary artery pressure due to technically difficult study. Diastolic function is indeterminate. Cardiac catheterization: 05-13-13: [facility]: Left main coronary artery normal Left anterior descending coronary artery with mild disease Left circumflex coronary artery being nondominant with no significant disease Right coronary artery being dominant with no significant stenosis Left ventriculogram not performed secondary to dye allergy Holter monitor: 12-28-2016 Sinus rhythm with PACs and PVCs with no narrow or wide complex runs Labs LDL Cholesterol 71 mg/dL (0-130) 12/07/18 HDL Cholesterol 44 mg/dL (40-) 12/07/18 Triglycerides 156 mg/dL (-199) 12/07/18 VLDL Cholesterol 31 mg/dL (5-40) 12/07/18 Diagnostics Electrocardiogram 02/14/19 Echocardiogram 12/25/18 Chest X-Ray 08/08/18 02/14/19 1311 <Electronically signed by Harry Hudson MD> Date Harry Hudson MD I have examined the patient the following changes are noted: Stress Test Report Date: 03-05-19 Procedure: Pharmacologic stress nuclear imaging study Indications: Chest pain Consent: Per the patient Procedure: The patient underwent pharmacologic (Regadenoson) evaluation with a peak heart rate of 102 beats per minute (65 %predicted maximal heart rate) and a peak blood pressure of 124/78 mmHg. The baseline ECG demonstrated normal sinus rhythm. The peak pharmacologic ECG demonstrated no obvious ECG changes. There were no cardiac dysrhythmias pretest, during pharmacologic infusion, or recovery. There was no complaint of chest discomfort during pharmacologic infusion or recovery. The examination was discontinued secondary to completion of protocol. Impression: 1. Pharmacologic (Regadenoson) evaluation 2. Peak pharmacologic ECG with no obvious ECG changes. 3. There were no cardiac dysrhythmias pretest, during pharmacologic infusion, or recovery. 4. Nuclear images pending Myocardial perfusion imaging study: Technique: The patient was injected with 14.3 millicuries of technetium 99m Cardiolite and subsequently rest SPECT Cardiolite nuclear imaging was obtained in the horizontal long, vertical long, and short axis views. The patient underwent pharmacologic (Regadenoson) evaluation with a peak heart rate of 102 beats per minute (65 % percent predicted maximal heart rate) and a peak blood pressure of 124/78 mmHg. The patient was injected with 44.6 millicuries of technetium 99m Cardiolite and subsequently stress SPECT Cardiolite nuclear imaging was obtained in the horizontal long, vertical long, and short axis views. A gated Cardiolite study at peak stress was obtained. Interpretation: Rest and stress SPECT Cardiolite nuclear imaging status post realignment and normalization demonstrate a small area of subtle diminished tracer uptake in the distal anterior/anteroapical segment at stress. There is end systolic thickening and brightening. The gated Cardiolite study demonstrates myocardial thickening and inward wall motion. The reported LVEF is 77 %. Impression: 1. Rest and stress SPECT currently nuclear imaging demonstrate a small area of subtle diminished tracer uptake in the distal anterior/anterior apical segments at stress potentially compatible with shifting soft tissue attenuation/artifact, however, an element of stress-induced myocardial ischemia cannot necessarily be excluded. 2. The gated Cardiolite study reports an LVEF of 77 %. Comment: Based upon the above findings the patient has been recommended for further evaluation with diagnostic cardiac catheterization. The procedure and risks were discussed with the patient. She was agreeable to this approach. This is scheduled for 03-13-19 [facility]. This note was generated using a voice recognition system and there may be incorrect words, spelling or punctuation that were not noted when reviewing the office note prior to saving.
--- NOTE | 2019-03-13 09:33 | CL.D_ITS ---
Patient Name: DERRELL GERMAN Study Date: 03/13/2019 Performing: Harry Hudson MD Ht: 61.81 inches 157 cm : 1955 Wt: 246.92 lbs 112 kg Age: 63 Gender: female BSA: 2.09 PROCEDURE(S) PERFORMED OI10-QWR/COR/LV II37-TNU W OR WO PTCA, SINGLE CORONARY ARTERY CLINICAL PROFILE AND INDICATIONS Indications: Suspected CAD Heart Failure: None Stress/Imaging Date: 03/05/2019Stress Test with SPECT MPI: Positive Angina Classification Anginal Classification w/in 2 Weeks: CCS III CAD Presentations: Stable angina. CONCLUSIONS Elevated Left Ventricular End Diastolic Pressure Normal LV size, wall motion,and systolic function LVEF: by LV gram 60 % [place] Multivessel CAD RECOMMENDATIONS Risk factor modification Medical therapy Referred for immediate PCI DESCRIPTION OF PROCEDURE The patient arrived to the procedure lab. The risks and benefits of the procedure as well as a full d escription of our services here and current unavailability of surgical backup were fully explained to the patient and/or their significant other prior to the catheterization. The Timeout was completed, verifying the correct patient and procedure. The patient's procedural site was prepped and draped in the usual fashion. Local anesthetic was given subcutaneously to right radial region with Lidocaine 2% . Using a modified Seldinger technique, arterial access was obtained via the right radial artery, a 6 Fr sheath was inserted. Left Coronary Artery selective angiography was performed in multiple views u sing a 5 Fr. 4.0 [place] catheter. Right Coronary Artery selective angiography was then performed in mu ltiple views using a 5 Fr. 4.0 [place] catheter. Left Ventriculography was performed in CHOW projection using a 5 Fr. Pig[place] catheter. LV to AO pullback pressures were then recorded. CORONARY ANGIOGRAPHY DOMINANCE: Right Dominant LEFT HEART ASSESSMENT Left Ventricular Ejection Fraction: by LV Gram 60 % Normal LV wall motion Elevated Left Ventricular End Diastolic Pressure LVEDP: 31 mmHg LEFT MAIN: Angiographically normal LEFT ANTERIOR DESCENDING ARTERY: PROX LAD: Smooth: 10 - 25 % Stenosis DISTAL LAD: 85 % Stenosis CIRCUMFLEX ARTERY: OM 1: Proximal - Smooth: 10 - 25 % Stenosis RIGHT CORONARY ARTERY: Angiographically normal VALVE FINDINGS: Normal Aortic Valve function Normal Mitral Valve function AORTIC ROOT: Angiographically normal COMPLICATIONS PROCEDURE MEDICATIONS Versed 1 mg IV Fentanyl 50 mcg IV Oxygen: 2 L/min via nasal cannula Heparin diluted in 23cc Heparinized saline. Patient given 10cc IA of this solution. 03/13/2019 08:58: 21 Solu-medrol 125 mg IV 03/13/2019 08:45:11 Verapamil 2.5mg, Ntg 100mcgs, 2000 units of Heparin diluted in 23cc Heparinized saline. Patient give n 10cc IA of this solution. 03/13/2019 08:58:21 SUMMARY OF HEMODYNAMIC DATA Time AIR REST ECG 07:59:41 AO 127/81 (102) SA 08:59:56 LV 162/6, 33 09:08:27 LV 161/2, 31 09:08:33 LV 162/6, 31 09:09:45 LV 161/1, 33 09:09:51 LVp 160/0, 31 09:09:56 AOp 153/78 (110) 09:10:02 AO 184/77 (108) 09:16:32 Signed By Harry Hudson MD On 03/13/2019 09:32:32 Harry Hudson MD
--- NOTE | 2019-03-13 10:39 | CL.I_ITS ---
Patient Name: DERRELL GERMAN Study Date: 03/13/2019 Performing: Freeman Abdi MD Ht: 61.81 inches 157 cm : 1955 Wt: 246.92 lbs 112 kg Age: 63 Gender: female BSA: 2.09 PROCEDURE(S) PERFORMED [id number] W OR WO PTCA, SINGLE CORONARY ARTERY [id number] W OR WO PTCA, SINGLE CORONARY ARTERY CLINICAL PROFILE AND CO-MORBIDITIES Indications: Suspected CAD, New Onset Angina <= 2 months, Suspected CAD Heart Failure: None Stress/Imaging Date: 03/05/2019 Stress Test with SPECT MPI: Positive Angina Classification Anginal Classification w/in 2 Weeks: CCS III CAD Presentations: Stable angina. Unstable angina. Other: Dyspnea on exertion. Comorbidities/Risk Factors: Hypertension Dyslipidemia Diabetes Mellitus: Diabetes Therapy: Insulin CONCLUSIONS Successful PTCA/ALFONSO to distal/apical LAD with a 2.25 x 12 Promus Synergy, followed immediately upstre am with a 2.25 x 8 Promus Synergy d/t retrograde plaque shifting; 75%-->0%, no dissection. Pt had id entical CP with balloon and stent deployment. Successful PTCA/ALFONSO mid LCX with a 2.5 x 20 Promus Synergy; 75%-->0%, no dissection. Pt had again si milar anginal symptoms as she did at home with this lesion as well. Complete revascularization recom mended given pt's abnl stress test, dyspnea on exertion, and difficulty evaluating pt due to body hab itus. RECOMMENDATIONS Highly recommend quitting all tobacco products Follow up with primary storm sash maker Risk factor modification ASA Indefinitley Plavix for at least 12 months Routine post interventional care Refer for Outpatient Cardiac Rehab Manual sheath removal per protocol Follow up with Dr. Hudson Medical management for mid LAD non obstructive disease. Successful Mynx Control closure of RFA. DESCRIPTION OF PROCEDURE The patient arrived to the procedure lab. The risks and benefits of the procedure as well as a full d escription of our services here and current unavailability of surgical backup were fully explained to the patient and/or their significant other prior to the catheterization. The Timeout was completed, verifying the correct patient and procedure. The patient's procedural site was prepped and draped in the usual fashion. Local anesthetic was given subcutaneously to right radial region with Lidocaine 2% . Local anesthetic was given subcutaneously to right groin region with Lidocaine 2% Using a modified Seldinger technique,arterial access was obtained via the right radial artery, a 6Fr sheath was insert ed., arterial access was obtained via the right femoral artery, a 6Fr x 45cm sheath was inserted. Lef t Coronary Artery selective angiography was performed in multiple views using a [address] Right Coronary Artery selective angiography was then performed in multiple views using a 5 Fr. 4.0 [place] catheter. Left Ventriculography was performed in CHOW projection using a 5 Fr. Pigtail catheter. LV to AO pullback pressures were then recorded.The images were reviewed and option s discussed. A decision was then made to proceed with an Intervention, IVUS or other adjunct procedur e. EBU 3.75 Guide catheter was inserted and engaged into the LCA. BMW (1) Guide wire was advanced to the Circumflex. BMW (2) Guide wire was advanced to the LAD. Angiogram performed pre balloon dilatati on. PTCA balloon inflated at 6 atms for 10 secs. PTCA balloon inflated at 6 atms for 10 secs. PTCA ba lloon inflated at 7 atms for 10 secs. Angiogram performed post balloon dilatation. PTCA balloon infla tequila at 7 atms for 9 secs. 2.25 x 12 Synergy Drug Eluting stent was advanced across the lesion in the LAD, distal. Angiogram performed pre stent deployment. Angiogram performed post stent deployment. 2.2 5 x 8 Synergy Drug Eluting stent was advanced across the lesion in the LAD, distal. Angiogram perform ed pre stent deployment. Angiogram performed post stent deployment. 2.0 x 12 Emerge Balloon catheter was advanced across lesion in the circumflex, mid. PTCA balloon inflated at 6 atms for 6 secs. PTCA b alloon inflated at 6 atms for 8 secs. 2.5 x 20 Synergy Drug Eluting stent was advanced across the lesion in the circumflex, mid. Angiogram performed pre stent deployment. Angiogram perform ed post stent deployment. Contrast was injected through the sheath and the Right Iliac and Femoral ar michel were assessed for possible closure device. The Radial arterial sheath was pulled and a TR Band was applied for hemostasis 13cc. The Femoral arterial sheath was pulled and a Mynx closure device was deployed for hemostasis INTERVENTION INFORMATION LESION SITE: LAD (Distal) Lesion Complexity: Non-High/Non-C, lesion at bifurcation: No, thrombus present: No, lesion length: 20 mm, culprit lesion: Yes Pre Stenosis: 75 % Pre intervention LARISSA flow: 3 PROCEDURE: Drug Eluting Stent with pre dilatation. Post Stenosis: 0 % Post intervention LARISSA flow: 3 Lesion Devices: Maciel .014 BMW [place] Straight 190cm Medtronic 6 Fr EBU3.75 100cm Guide Catheter Cole Sci EMERGE MR 2.00x12 BALLOON Cole Sci Synergy MR ALFONSO 2.25x12 Cole Sci Synergy MR ALFONSO 2.25x08 LESION SITE: Circumflex (Mid) Lesion Complexity: High/C, lesion at bifurcation: No, thrombus present: No, lesion length: 20 mm, cul prit lesion: No Pre Stenosis: 75 % Pre intervention LARISSA flow: 3 PROCEDURE: Drug Eluting Stent with pre dilatation. Post Stenosis: 0 % Post intervention LARISSA flow: 3 Lesion Devices: Medtronic 6 Fr EBU3.75 100cm Guide Catheter Cole Sci EMERGE MR 2.00x12 BALLOON Maciel .014 BMW [place] Straight 190cm Cole Sci Synergy MR ALFONSO 2.50x20 COMPLICATIONS No Complications PROCEDURE MEDICATIONS Versed 1 mg IV Fentanyl 50 mcg IV Oxygen: 2 L/min via nasal cannula Heparin diluted in 23cc Heparinized saline. Patient given 10cc IA of this solution. 03/13/2019 08:58: 21 Heparin 6000 unit(s) IV 03/13/2019 09:38:44 Nitro 200 mcg IC 03/13/2019 09:40:52 Nitro 200 mcg IC 03/13/2019 09:40:52 Nitro 200 mcg IC 03/13/2019 09:52:10 Nitro 200 mcg IC 03/13/2019 09:56:39 Nitro 200 mcg IC 03/13/2019 09:57:45 Solu-medrol 125 mg IV 03/13/2019 08:45:11 Verapamil 2.5mg, Ntg 100mcgs, 2000 units of Heparin diluted in 23cc Heparinized saline. Patient give n 10cc IA of this solution. 03/13/2019 08:58:21 IV Bolus: .9 NaCl 400 ml total 03/13/2019 10:24:25 IV Fluids: .9 NaCl increased to WO ml/hr 03/13/2019 09:38:32 SUMMARY OF HEMODYNAMIC DATA Time AIR REST ECG 07:59:41 AO 127/81 (102) SA 08:59:56 LV 162/6, 33 09:08:27 LV 161/2, 31 09:08:33 LV 162/6, 31 09:09:45 LV 161/1, 33 09:09:51 LVp 160/0, 31 09:09:56 AOp 153/78 (110) 09:10:02 AO 184/77 (108) 09:16:32 10:37:52 Signed By Freeman Abdi MD On 03/13/2019 10:39:07 Freeman Abdi MD
[2019-03-13] MEDS: 0.9% Normal Saline 1,000 ML 150 ML IV (10:45)
--- NOTE | 2019-03-13 11:22 | EKG12_ITS ---
Test Reason : POST STENT Blood Pressure : / mmHG Vent. Rate : 100 BPM Atrial Rate : 100 BPM P-R Int : 150 ms QRS Dur : 082 ms QT Int : 382 ms P-R-T Axes : 051 050 036 degrees QTc Int : 492 ms Normal sinus rhythm Low voltage QRS Prolonged QT Abnormal ECG When compared with ECG of 08-AUG-2018 18:56, Criteria for Septal infarct are no longer Present Criteria for Inferior infarct are no longer Present Nonspecific T wave abnormality no longer evident in Anterior leads Confirmed by JOANNA GRIMM, JANICE ([id number]), non linear editor PRINCE HAIDER ([id number]) on 03/15/2019 12:40:26 PM Referred By: Harry Hudson Confirmed By:DIANE MARSHALL MD
[2019-03-13 11:45] LABS: ACT Activated Clotting Time 202 sec (74-137)
--- NOTE | 2019-03-13 13:07 | CRPHASE1 ---
Patient Communication PHII Cardiac Rehab Discussed with Patient:: Yes Cardiac Rehab Facility Choice List Given to Patient:: Yes - chooses [facility] Choice Program [facility] CR PHII:: Communication Given to CR, Refer to [facility] Choice Program Other:: Communication Given to CR, With permission faxed order and referral information Bindery Assistant:: Freeman Abdi Refer Phase II Cardiac Rehab:: Yes Sessions:: 36 sessions - 3 days/wk, 12 weeks Risk Factors/Lifestyle Hx Hypertension: Yes Hx Diabetes Mellitus Type 2: Yes Hx Dyslipidemia: Yes Hx Obesity: Yes Height: 1.57 m Weight:: 115.666 kg BMI: 46.6 Family History: Family History (Last Reviewed 02/14/19 @ 10:51 by Carrie Bravo) Mother Diabetes Heart disease Hypertension High cholesterol Kidney disease Cancer Father Diabetes Hypertension High cholesterol Cancer Sister Cancer Phase I Education Given On:: [place], Nutrition, Antiplatelet medication, CHF, Smoking cessation, Diabetes - Type I, Diabetes - Type II Knowledge of Condition:: Yes Hospital Course Presenting Symptoms:: chest heaviness Cardiac Cath Date:: 03/13/19 Medical/Surgical History Diabetes Type II:: Yes Hypertension:: Yes Dyslipidemia:: Yes Discharge/Home/Social Eval Marital Status: Cardiac Rehabilitation Info Cardiac Rehabilitation Program Information: Cardiac Rehabilitation is important for patients like you who are recovering from a heart problem. Cardiac rehabilitation programs are recognized as integral to the continued care of the patient with coronary heart disease. The cardiac rehabilitation program is designed to optimize a patient's physical, psychological, and social functioning. Health intensive care unit registered nurse work in cardiac rehabilitation programs and assist you with getting the treatments you need to get stronger and healthier - like exercise, healthy eating habits, and medications. Cardiac rehabilitation has been show to help people with heart problems live longer and have better life enjoyment than people who do not go to cardiac rehabilitation. Please contact the Cardiac Rehabilitation Program at [facility] at in two weeks if you have not heard from them.
--- NOTE | 2019-03-13 13:14 | CRPH1.INSTRU ---
General Education CAD and cardiac anatomy and function:: Patient communicates acknowledgment Explanation of diagnoses and procedures:: Patient communicates acknowledgment Sign/Symptoms of IL:: Patient communicates acknowledgment Antiplatelet therapy: Patient communicates acknowledgment Proper use of NTG-SL: Not instructed Emergency procedures and activation of EMS: Patient communicates acknowledgment Compliance of all prescribed medications: Patient communicates acknowledgment Smoking Nicotine/Smoking Response Code:: Patient communicates acknowledgment Dyslipidemia Dyslipidemia Response Code:: Patient communicates acknowledgment Overweight/Obesity Patient Overweight/Obesity Risk Factors Are:: Obesity - > or = 30 Recommendations Include:: Weight loss of 5-10%, Reduced calorie diet, Exercise 5-7 times/week Overweight/Obesity:: Patient communicates acknowledgment Hypertension Recommendations Include:: Maintain BP <130/85, BP <130/80 if diabetic, DASH dietary guidelines, Decrease/maintain normal body weight, Moderation of ETOH Hypertension:: Patient communicates acknowledgment Heart Disease Heart Disease Response Code:: Patient communicates acknowledgment Diabetes Recommendations Include:: Maintain fasting blood sugars 70-110 md/dL, Maintain HgbA1c of 6% or less, Monitor blood sugar as prescribed, Diabetic dietary guidelines, Decrease/maintain body weight Diabetes:: Patient communicates acknowledgment Metabolic Syndrome Metabolic Syndrome Response Code:: Patient communicates acknowledgment Sedentary Sedentary Response Code:: Patient communicates acknowledgment Stress Stress Response Code:: Patient communicates acknowledgment
[2019-03-13] MEDS: Acetaminophen 325 MG Tablet 650 MG PO (13:52)
[2019-03-13] MEDS: diazePAM 5 MG Tablet PO (13:52)
[2019-03-13] MEDS: CLARIFY ORDER NOTE ×4 (16:30→16:31)
[2019-03-13] MEDS: Metoprolol Tartrate 25 MG Tablet PO (22:00)
[2019-03-13] MEDS: Famotidine 20 MG Tablet PO (22:00)
[2019-03-13] MEDS: Spironolactone 25 MG Tablet PO (22:00)
[2019-03-13] MEDS: Atorvastatin Calcium 80 MG Tablet PO (22:00)
[2019-03-14] VITALS (12 sets, daily range): BP systolic 111–127; BP diastolic 61–70; PULSE 74–87; RESP 11–21; TEMP 36.7–36.8; O2SAT 97–99
[2019-03-14 05:16] LABS: Anion Gap 9 (5-15); BUN 21 mg/dL (7-18); BUN/Creat Ratio 17.6 RATIO (10-20); Calcium,Total 8.4 mg/dL (8.5-10.1); Chloride 103 mmol/L (98-107); Cholesterol 130 mg/dL (200); Creatinine, Serum 1.19 mg/dL (0.55-1.02); EST Glomerular Filtration Rate 49 mL/min (>60); Est Glom Filt Rate - Afr Amer 59 mL/min (>60); Estimated Creatinine Clearance 37.77 ml/min; Glucose 306 mg/dL (74-106); High Density Lipoprotein 39 mg/dL; Sodium Level 132 mmol/L (136-145); Triglycerides 191 mg/dL; Very Low Density Lipoprotein 38 mg/dL (5-40)
[2019-03-14] MEDS: Levothyroxine 150 MCG Tablet PO (05:24)
[2019-03-14] MEDS: 0.9% NaCl Peripheral Flush Adult/Peds IV (05:25)
[2019-03-14 05:33] LABS: Hematocrit 37.4 % (37-47); Hemoglobin 12.2 g/dl (12.0-15.0); Mean Corp Hgb Conc 32.6 g/gl (32-36); Mean Platelet Vol. 9.2 fl (6.2-12.0); Platelet Count 305 K/mm3 (150-450); RBC Distribution Width CV 13.6 % (11.6-14.6); RBC Distribution Width SD 42.7 fl (35.1-43.9); Red Blood Count 4.35 M/mm3 (4.2-5.4)
[2019-03-14 05:35] LABS: Scan Indicated on CBC? Y/N NO
[2019-03-14] MEDS: Aspirin E.C. 81 MG Tablet PO (08:27)
[2019-03-14] MEDS: Losartan Potassium 25 MG Tablet PO (08:28)
[2019-03-14] MEDS: Spironolactone 25 MG Tablet PO (08:28)
[2019-03-14] MEDS: hydroCHLOROthiazide 12.5mg 12.5 MG PO (08:29)
[2019-03-14] MEDS: Metoprolol Tartrate 25 MG Tablet PO (08:29)
[2019-03-14] MEDS: Furosemide 40 MG Tablet PO (08:29)
[2019-03-14] MEDS: Famotidine 20 MG Tablet PO (08:30)
[2019-03-14] MEDS: Meloxicam 15 MG Tablet PO (08:30)
[2019-03-14] MEDS: Clopidogrel Bisulfate 75 MG Tablet PO (08:33)
--- NOTE | 2019-03-14 08:36 | PCM.DC ---
- Discharge Diagnoses Current Active Problems: Current Active and Chronic Problems (Last Updated 03/06/19 @ 09:04 by Carrie Bravo) Atherosclerotic heart disease of [place] coronary artery without angina pectoris (Chronic) You will use the following diet at home:: Calorie/Carbohydrate Controlled (specify 1200, 1400, etc) - 1800 Calories Your food should be the consistency of: Regular Discharge Activity: May Shower, May Take a Tub Bath - May not take a tub bath x7 days Weight Bearing Status: - - Avoid heavy exertional activity ending outpatient cardiovascular follow-up Call your doctor if your incision/area has: Continuous Slow Oozing, Sudden Increased Bleeding, Increased Pain/ Swelling, Increased Redness Call your doctor if you observe: Shortness of breath, Fainting spells, Swelling in the ankles, Chest pain, Increased palpitations (irregular heartbeat), Calf discomfort Remove Dressing in (days):: 1 Cleanse incision/area with: Soap & Water Allergies/Adverse Reactions: Allergies Fish Containing Products Allergy (Verified 02/14/19 10:45) Hives fluconazole [From Diflucan] Allergy (Verified 02/14/19 10:45) Hives iodine Allergy (Verified 02/14/19 10:45) Unknown orange Allergy (Verified 02/14/19 10:45) Hives Penicillins Allergy (Verified 02/14/19 10:45) Unknown pioglitazone [From Actos] Allergy (Verified 02/14/19 10:45) Hives povidone-iodine [From Betadine] Allergy (Verified 02/14/19 10:45) Unknown soap [From Betadine] Allergy (Verified 02/14/19 10:45) Unknown Sulfa (Sulfonamide Antibiotics) Allergy (Verified 02/14/19 10:45) Unknown sulfamethoxazole [From Bactrim] Allergy (Verified 02/14/19 10:45) Unknown tetanus and diphtheria toxoids Allergy (Verified 02/14/19 10:45) Hives trimethoprim [From Bactrim] Allergy (Verified 02/14/19 10:45) Unknown Medications to take at Discharge Aspirin 325 mg PO DAILY@0800 11/11/16 Nitroglycerin 0.4 mg SL PRN PRN 11/11/16 epinephrine 0.3 mg/0.3 mL injection, auto-injector 0.3 mg IM ONCE 10/30/17 insulin regular human U-500concentrate 500 unit/mL subcutaneous soln See Rx Instructions SC TID ml 10/30/17 dulaglutide 0.75 mg/0.5 mL subcutaneous pen injector 1.5 mg SC QWEEK ml 11/22/17 rosuvastatin 20 mg tablet 20 mg PO QDAY 11/22/17 blood sugar diagnostic strips See Dose Instructions .ROUTE .MEDSUPPLY #550 ea 03/05/18 furosemide 40 mg tablet 40 mg PO DAILY tab 02/12/19 hydrochlorothiazide 25 mg tablet 12.5 mg PO DAILY tab 02/12/19 meloxicam 7.5 mg tablet 15 mg PO DAILY tab 02/12/19 ranitidine 150 mg capsule 150 mg PO BID cap 02/12/19 spironolactone 25 mg tablet 40 mg PO BID tab 02/12/19 levothyroxine 150 mcg tablet 175 mcg PO DAILY 02/14/19 clopidogrel 75 mg tablet 75 mg PO .COMPLEX #30 tab 03/08/19 Aspirin E.C. [Ecotrin] 81 mg PO DAILY@0800 tab 03/14/19 Insulin U-500 [Humulin R U-500 (BKC)] See Protocol SUBCUT ACHS & 0200 pen 03/14/19 Losartan Potassium [Cozaar] 25 mg PO DAILY tab 03/14/19 Metoprolol Tartrate [Lopressor (beta destiney)] 25 mg PO BID #60 tab 03/14/19 Nitroglycerin (INPATIENT USE) [Nitrostat] 0.4 mg SUBLINGUAL Q5M PRN tab.subl 03/14/19 The following prescriptions were given: Metoprolol Tartrate [Lopressor (beta destiney)] 25 mg PO BID #60 tab Transmission Status: Pending to [facility] Primary Care Physician: Korey Guillen III, MD [Primary Care Provider] - Test Results: Test results from this visit will be discussed in further detail at your follow-up appointment, if applicable. Please Follow Up With: Harry Hudson MD When: [facility] office to arrange outpatient follow up
--- NOTE | 2019-03-14 08:39 | PCM.DC.SUM ---
Discharge Date and Diagnosis Date of Admission: 03/13/19 Date of Discharge: 03/14/19 - Primary Discharge Diagnosis CAD status post PCI - Secondary Discharge Diagnosis Chronic Problems (Last Updated 03/06/19 @ 09:04 by Carrie Bravo) Atherosclerotic heart disease of [place] coronary artery without angina pectoris (Chronic) Stented coronary artery (Chronic 03/13/19) Successful PTCA/ALFONSO to distal/apical LAD with a 2.25 x 12 Promus Synergy, followed immediately upstream with a 2.25 x 8 Promus Synergy d/t retrograde plaque shifting; 75%-->0%, no dissection. Pt had identical CP with balloon and stent deployment. Successful PTCA/ALFONSO mid LCX with a 2.5 x 20 Promus Synergy; 75%-->0%, no dissection. Pt had again similar anginal symptoms as she did at home with this lesion as well. Complete revascularization recommended given pt's abnl stress test, dyspnea on exertion, and difficulty evaluating pt due to body habitus. Essential hypertension (Chronic) Obesity (Chronic) Hypothyroidism (Chronic) HLD (hyperlipidemia) (Chronic) Type II diabetes mellitus (Chronic) Dx : 1995 Last exacerbation : DKA : years ago Hypoglycemic episode : never ER visit : years ago Hospital Course and Treatment Procedures: Cardiac catheterization, - - Cardiac intervention Summary of Care Provided: The patient is a 63 year old white female with multiple cardiovascular risk factors who presented for evaluation of an abnormal exercise tolerance test. She underwent diagnostic cardiac catheterization. She was found to have evidence of angiographically significant appearing CAD. Subsequent underwent PCI/ALFONSO of the LAD and LCx distributions. She recuperated in the ICU overnight. She has remained symptomatically and hemodynamically stable. At the present time it was felt the patient could be released home for continued outpatient cardiovascular follow-up and outpatient cardiac rehabilitation therapy. [] Subjective: The patient appears to be awake and alert and resting comfortably in no acute distress. - Physical Exam General: Alert, Oriented x3, Cooperative, No apparent distress HEENT: Atraumatic, PERRLA, EOMI, Normocephalic Oral: Moist Mucosa Neck: Supple, No JVD Lungs: Clear to auscultation Cardiovascular: Regular rate, Regular Rhythm, Normal S1, Normal S2 Abdomen: Bowel Sounds Present, Soft, Non Tender, Obese Extremities: No clubbing, No cyanosis, No edema, - - Right radial artery site and right femoral artery; pulse 2+/4+; no bruits; no hematoma Skin: - - Right inguinal area: Small ecchymoses Neurological: Neuro grossly intact Vital Signs Temp Pulse Resp BP Pulse Ox 98.0 F 78 15 126/69 H 97 03/14/19 04:00 03/14/19 08:29 03/14/19 07:00 03/14/19 08:29 03/14/19 07:00 Oxygen Flow Rate (L/min) 2 Oxygen Delivery Method Room Air Weight: 255 lb 11.779 oz Body Mass Index (BMI) 46.7 Finger Stick Blood Glucose 397 Intake and Output for Last 24 Hours 03/12/19 03/13/19 03/14/19 23:59 23:59 23:59 Intake Total 1915 / 1915 500 / 500 Output Total 900 / 900 Balance 1015 / 1015 500 / 500 Laboratory Tests Past 24 Hrs 03/13/19 03/14/19 03/14/19 10:15 04:50 04:50 WBC Cancelled Corrected WBC Cancelled RBC Cancelled Hgb Cancelled Hct Cancelled MCV Cancelled MCH Cancelled MCHC Cancelled RDW Cancelled RDW Differential Cancelled Plt Count Cancelled MPV Cancelled Diff Path Review Cancelled Activated Clotting Time 202 H Sodium 132 L Potassium 5.0 Chloride 103 Carbon Dioxide 20.0 L Anion Gap 9 BUN 21 H Creatinine 1.19 H Estim Creat Clear Calc 37.77 Est GFR (MDRD) Af Amer 59 L Est GFR (MDRD) Non-Af 49 L BUN/Creatinine Ratio 17.6 Glucose 306 H Calcium 8.4 L Triglycerides 191 Cholesterol 130 LDL Cholesterol 53 VLDL Cholesterol 38 HDL Cholesterol 39 L 03/14/19 05:20 WBC 15.0 H Corrected WBC RBC 4.35 Hgb 12.2 Hct 37.4 MCV 86.0 MCH 28.0 MCHC 32.6 RDW 13.6 RDW Differential 42.7 Plt Count 305 MPV 9.2 Diff Path Review Activated Clotting Time Sodium Potassium Chloride Carbon Dioxide Anion Gap BUN Creatinine Estim Creat Clear Calc Est GFR (MDRD) Af Amer Est GFR (MDRD) Non-Af BUN/Creatinine Ratio Glucose Calcium Triglycerides Cholesterol LDL Cholesterol VLDL Cholesterol HDL Cholesterol Discharge Diet: 1800 Calorie Control Diet Discharge Activity: May Shower, May Take a Tub Bath - May not take a tub bath x7 days May resume sexual activity in: 2 weeks Weight Bearing Status: - - Avoid heavy exertional activity ending outpatient cardiovascular follow-up Call your doctor if your incision/area has: Continuous Slow Oozing, Sudden Increased Bleeding, Increased Pain/ Swelling, Increased Redness Call your doctor if you observe: Shortness of breath, Fainting spells, Swelling in the ankles, Chest pain, Increased palpitations (irregular heartbeat), Calf discomfort Remove Dressing in (days):: 1 Cleanse incision/area with: Soap & Water Home Medications: Medications to take at Discharge Aspirin 325 mg PO DAILY@0800 11/11/16 Nitroglycerin 0.4 mg SL PRN PRN 11/11/16 epinephrine 0.3 mg/0.3 mL injection, auto-injector 0.3 mg IM ONCE 10/30/17 insulin regular human U-500concentrate 500 unit/mL subcutaneous soln See Rx Instructions SC TID ml 10/30/17 dulaglutide 0.75 mg/0.5 mL subcutaneous pen injector 1.5 mg SC QWEEK ml 11/22/17 rosuvastatin 20 mg tablet 20 mg PO QDAY 11/22/17 blood sugar diagnostic strips See Dose Instructions .ROUTE .MEDSUPPLY #550 ea 03/05/18 furosemide 40 mg tablet 40 mg PO DAILY tab 02/12/19 hydrochlorothiazide 25 mg tablet 12.5 mg PO DAILY tab 02/12/19 meloxicam 7.5 mg tablet 15 mg PO DAILY tab 02/12/19 ranitidine 150 mg capsule 150 mg PO BID cap 02/12/19 spironolactone 25 mg tablet 40 mg PO BID tab 02/12/19 levothyroxine 150 mcg tablet 175 mcg PO DAILY 02/14/19 clopidogrel 75 mg tablet 75 mg PO .COMPLEX #30 tab 03/08/19 Aspirin E.C. [Ecotrin] 81 mg PO DAILY@0800 tab 03/14/19 Insulin U-500 [Humulin R U-500 (BKC)] See Protocol SUBCUT ACHS & 0200 pen 03/14/19 Losartan Potassium [Cozaar] 25 mg PO DAILY tab 03/14/19 Metoprolol Tartrate [Lopressor (beta destiney)] 25 mg PO BID #60 tab 03/14/19 Nitroglycerin (INPATIENT USE) [Nitrostat] 0.4 mg SUBLINGUAL Q5M PRN tab.subl 03/14/19 Following Prescrptions Were Given to Patient: Metoprolol Tartrate [Lopressor (beta destiney)] 25 mg PO BID #60 tab Transmission Status: Pending to [facility] Primary Care Physician: Korey Guillen III, MD [Primary Care Provider] - Please Follow Up With: Harry Hudson MD When: [facility] office to arrange outpatient follow up Disposition: Home Minutes spent on discharge:: 45 Patient Condition:: Stable Medical Necessity - Tobacco Use Smoking Status: Never smoker Meaningful Use Info Meaningful Use Diagnoses (Choose all that apply): None applicable
--- NOTE | 2019-03-14 10:00 | EKG12_ITS ---
Test Reason : AM Blood Pressure : / mmHG Vent. Rate : 078 BPM Atrial Rate : 078 BPM P-R Int : 136 ms QRS Dur : 084 ms QT Int : 418 ms P-R-T Axes : 049 021 021 degrees QTc Int : 476 ms Normal sinus rhythm Low voltage QRS Borderline ECG When compared with ECG of 13-MAR-2019 10:45, MANUAL COMPARISON REQUIRED, DATA IS UNCONFIRMED Confirmed by JOANNA GRIMM, JANICE ([id number]), avid editor PRINCE HAIDER ([id number]) on 03/15/2019 12:41:55 PM Referred By: Harry Hudson Confirmed By:DIANE MARSHALL MD
== END 2019-03-14 11:20 | disposition home or self-care (01) ==
LOC: CLSP 07:41 → ICU 09:54
PROVIDERS: Internal Medicine Cardiovascular Disease; Family Provider Family Medicine; PCP Family Medicine; Referring Provider Internal Medicine Cardiovascular Disease; Visit Provider Internal Medicine Cardiovascular Disease
DX: I25.110 Atherosclerotic heart disease of native coronary artery with unstable angina pectoris (principal); R94.39 Abnormal result of other cardiovascular function study; E78.5 Hyperlipidemia, unspecified; I10 Essential (primary) hypertension; E11.9 Type 2 diabetes mellitus without complications; E03.9 Hypothyroidism, unspecified; R60.9 Edema, unspecified; E66.9 Obesity, unspecified; Z68.42 Body mass index [BMI] 45.0-49.9, adult; Z88.0 Allergy status to penicillin; Z88.3 Allergy status to other anti-infective agents; Z88.8 Allergy status to other drugs, medicaments and biological substances; Z88.1 Allergy status to other antibiotic agents; Z88.2 Allergy status to sulfonamides; Z79.82 Long term (current) use of aspirin; Z79.4 Long term (current) use of insulin
CPT/HCPCS: 80048; 80061; 85027; 85347; 92928; 93005; 93458; 99152; 99153; C1760; J7030; J7040; Q9967; A4216; C1725; C1769; C1874; C1887; C1894; C9600

== ENCOUNTER → 2019-03-21 11:49 | Outpatient (CLI) | payer OTHER, SELFPAY ==
[2019-03-13 11:00] VITALS: BMI 46.7
[2019-03-13 13:12] VITALS: BMI 46.6
--- NOTE | 2019-03-21 12:13 | CR.ITP_ITS ---
General Information - General Information Admitting Diagnosis: DCI with stenting - Education/Goals Barriers to Learning: None Individual Counseling: Initial Assessment: Abnormal Cholesterol Levels, High Blood Pressure, Overweight/Obesity, Diabetes, Hypertension, Sedentary Lifestyle, Stress, Family History of Heart Disease (under 65 years) Cardiac Rehabilitation Goals: 1. Maintain the individual as the primary focus of care. 2. To improve the patient's quality of life. 3. Identification of cardiac risk factors and provide cardiac risk factor management. 4. Enhance the psychosocial status of the patient. 5. Reconditioning enough to allow the patient to resume customary activities. 6. Control symptoms of cardiac disease Scale for measuring improvement of personal goals: Enter appropriate number in Comments. 2 = Unchanged. 3 = Slightly Better. 4 = Moderate Improvement. 5 = Met my Goal Personal Goals: Initial Assessment: Improve energy level, Participate in home e xercise program, Get back to work, or to resume activities faster, Improve knowledge of cardiac disease, Improve muscle strength and endurance, Improve diet and eating habits (eat healthier), Control risk factors (learn risk factor modification) Exercise - Initial Assessment - Visit Date of Eval: 03/21/19 - Stages of Change Stages of Change:: Action - Physician Prescribed Exercise Modalities: Treadmill, Biodyne, Rower, Airdyne, NuStep, SciFit Frequency (days/week): 3x/week for 12 weeks [36 sessions] Duration (Minutes):: 30-35 Intensity: 60-80% age predicted maximum heart rate reserve METs - Progression: 0.5-1.0 MET, RPE 11-14 WEEK: 0.5-1.0 - Hypertension Do any of the following apply?: Yes, Medication, Diet - Intervention Home Exercise/Activity Goal:: Moderate Exercise 30 min/day x 5 days/wk - Education Goals:: Warm-up, RPE [place] Scale, S/S, Safe Exercise, Self-Monitoring - Exercise Program Goals Exercise Program Goals: Aerobic Activity >30 min Nutrition - Initial Assessment - Program Goals Nutrition Program Goals: LDL <70. Total Cholesterol <200. HDL >45. Triglycerides <150. HgbA1C <7%. BMI <25 - Visit Date of Assessment:: 03/21/19 - Stages of Change Stages of Change:: Action - Lipids Total Cholesterol (mg/dL) Goal = less than 200 mg/dL: 130 HDL Cholesterol (mg/dL) Goal = less than 45 mg/dL: 39 LDL Cholesterol (mg/dL) Goal = less than 70 mg/dL: 53 Triglycerides (mg/dL) Goal = less than 150 mg/dL: 191 Lipid Medication: yes - Diabetes Diabetes:: Yes Hgb A1C: 8.1 Insulin: Yes Do you monitor your blood sugar at home?: Yes - Weight Management Height: 5 ft 2 in Weight:: 247 lb Weight Goal (kg):: 200 lb Body Fat %:: 38.4 - Intervention Referral to dietitian:: Yes Referral to Diabetic Clinic:: Yes Will attend diet classes:: Yes - Education Gave educational materials for:: Signs & symptoms of hypoglycemia, Signs & symptoms of hyperglycemia, Relate diabetes to coronary artery disease, Healthy eating Tobacco - Initial Assessment - Program Goals Tobacco Program Goals: Complete smoking cessation. Attend education classes. Improve Knowledge Test score - Stage of Change Stages of Change:: Action - Learning Barriers Learning Barriers: Ready to Learn Total Score:: 19 - Family Support Do you have family support?: Yes - Tobacco Use Tobacco Use: Non-smoker Do you use smokeless tobacco?: No - Intervention Smoking Cessation Referral:: No Individual Education/Counseling:: Yes Education Schedule Given:: Yes - Education Attended class for:: Treating Heart Disease, How The Heart Works, What it means to have Heart Disease, How Coronary Artery Disease is Diagnosed, Heart Procedures, What Heart Medications Do, Risk Factors & Modifications, Living an Active Life, Nutrition, Emotions & Heart Disease, Stress Management & Relaxation, Sleep Disorders & Heart Disease Psychosocial - Initial Assess - Target Goals Target Goals: Assess presence or absence of depression. Using a valid screening tool, maximizes coping skills. Positive support system - Stages of Change Stages of Change:: Action - Psychosocial Test Tool Used:: HANDS Depression Questionnaire Self-reported stress:: no Tests Completed: SF - 36 survey completed, Mood Scale Test Total Mood Screening Score:: 8 Self-Efficacy Score:: 3 - Intervention PS - Interventions: Yes Referral to Physician, Yes Attend Stress Management Classes, Yes Uses Stress Management Skills, No Referral to Mental Health, No Referral to [facility] Case Management - Education Gave educational materials for:: Coping techniques, Signs & symptoms of depression, Stress management, Relaxation techniques - Patient/Program Goal Preventative Medication(s):: Aspirin, ANDRIY inhibitor, Clopidogrel, Beta destiney, Statin/lipid - Assistive Devices Assistive Devices:: None Fall Risk Assessed:: Yes Patient Health Questionnaire Initial Assessment 1. Little interest or pleasure in doing things: Several days 2. Feeling down, depressed, or hopeless: Several days 3. Trouble falling or staying asleep, or sleeping too much: More than half the days 4. Feeling tired or having little energy: Several days 5. Poor appetite or overeating: Several days 6. Feeling bad about yourself -- or that you are a failure or have let yourself or your family down: Several days 7. Trouble concentrating on things, such as reading the newspaper or watching television: Several days 8. Moving or speaking so slowly that other people could have noticed. Or the opposite - being so fidgety or restless that you have been moving around a lot more than usual: Not at all 9. Thoughts that you would be better off , or of hurting yourself in some way: Not at all How difficult have these problems made it for you to do your work, take care of things at home, or get along with other people?: Extremely difficult Total Score: 8 ASHLY-Q SV Test - Statements CAD is a disease of the arteries in the heart: False Examples of risk factors for heart disease: True Angina is chest pain or discomfort: True The benefits of resistance training include: True Eating more meat and dairy products: False Anti-platelet medications such as aspirin are important: True The only effective way to manage stress: False An exercise warm-up slowly increases heart rate: True Prepared, processed foods usually have high sodium: True Depression is common after a heart attack: True The statin medications lower cholesterol: True To control blood pressure, lower the amount of sodium: True If someone gets chest discomfort during walking: False Transfats are partially hydrogenated vegetable oils: True Sleep apnea that is not treated increases the risk: True To control cholesterol, one should become a vegetarian: False Someone knows if he/she is exercising at the right level: True Diabetes cannot be prevented with exercise & health eating: False Stress is a large risk for heart attack: True A diet that can help lower blood pressure is rich in: True - Total Score Total Correct Responses: 19 Self-Efficacy Initial Assessment We would like to know how confident you are in doing certain activities. Please select your confidence level for:: Select your confidence level for the following using the scale 1-10 where 1 is not at all confident and 10 is totally confident. Your score is the average of all 6 responses. Fatigue: How confident are you that you can keep the fatigue caused by your disease from interfering with the things you want to do? Select Number: 1 Physical Discomfort or Pain: How confident are you that you can keep the physical discomfort or pain of your disease from interfering with the things you want to do? Select Number: 1 Emotional Distress: How confident are you that you can keep the emotional distress caused by your disease from interfering with the things you want to do? Select Number: 5 Other Symptoms or Health Problems: How confident are you that you can keep other symptoms or health problems from interfering with the things you want to do? Select Number: 5 Different Tasks and Activities: How confident are you that you can do the different tasks and activities needed to manage your health condition so as to reduce your need to see a doctor? Select Number: 5 Medication: How confident are you that you can do things other than just taking medication to reduce how much your illness affects your everyday life? Select Number: 5 Total Score:: 3 Nutrition Survey - Nutrition Survey Instructions Scoring Instructions: Scoring is as follows: Yes = 1 points. No = 0 point. Patient score that is >/=12 is considered to be at potential nutritional risk and could benefit from a referral to a registered dietitian. - Nutrition Survey Initial Have you lost >10 lbs over the past 2 months without trying?: No Are you following a special diet at home for diabetes, low fat, or low salt?: Yes Are you interested in meeting with a dietitian for help understanding your diet?: No Do you eat less than 3 meals a day?: No Do you eat fatty meats (augustine, sausage, ribs, etc), fried foods, desserts, large amounts of salad dressings, margarine, butter, or cheese most days?: Yes Do you have food allergies? [Enter types in comment field]: Yes Do you eat in restaurants more than 3 times a week?: No Do you season food with salt, seasoning salt, or garlic salt?: Yes Do you used canned, boxed, frozen meals, or soups, seasoning packets?: Yes Total Score:: 5
--- NOTE | 2019-03-21 12:36 | CR.HP_ITS ---
CR - History & Physical - General Arrival date:: 03/21/19 Arrival time:: 12:36 Date of CR Evaluation:: 03/21/19 Referring Physician: Dr. David Hudson Primary Diagnosis: PCI with stenting. - History of Present Cardiac Event Onset Date: Enter Onset Date of cardiac illnesses in Comment field below Current stable Angina Pectoris:: Yes - this past Monday, pain went away with rest Acute Myocardial Infarction within 12 months:: No Coronary Artery Bypass Graft:: No Heart valve replacement or repair:: No PTCA or coronary stenting:: Yes - 03/13/19 3 stents Heart or Heart-Lung Transplant:: No Heart Failure EF <35%:: No Type of Symptoms:: LE edema, SOB, chest pain. Interventions with present event:: stress test, then heart cath Were there any complications?: no - Medications Home Medications: Ambulatory Orders Medication Instructions Recorded Aspirin 325 mg PO DAILY@0800 11/11/16 Nitroglycerin 0.4 mg SL PRN PRN 11/11/16 epinephrine 0.3 mg/0.3 mL 0.3 mg IM ONCE 10/30/17 injection, auto-injector insulin regular human See Rx Instructions SC TID ml 10/30/17 U-500concentrate 500 unit/mL subcutaneous soln dulaglutide 0.75 mg/0.5 mL 1.5 mg SC QWEEK ml 11/22/17 subcutaneous pen injector rosuvastatin 20 mg tablet 20 mg PO QDAY 11/22/17 blood sugar diagnostic strips See Dose Instructions .ROUTE 03/05/18 .MEDSUPPLY #550 ea furosemide 40 mg tablet 40 mg PO DAILY tab 02/12/19 hydrochlorothiazide 25 mg tablet 12.5 mg PO DAILY tab 02/12/19 meloxicam 7.5 mg tablet 15 mg PO DAILY tab 02/12/19 ranitidine 150 mg capsule 150 mg PO BID cap 02/12/19 spironolactone 25 mg tablet 40 mg PO BID tab 02/12/19 levothyroxine 150 mcg tablet 175 mcg PO DAILY 02/14/19 clopidogrel 75 mg tablet 75 mg PO .COMPLEX #30 tab 03/08/19 Aspirin E.C. [Ecotrin] 81 mg PO DAILY@0800 tab 03/14/19 Insulin U-500 [Humulin R U-500 See Protocol SUBCUT ACHS & 0200 03/14/19 ([facility])] pen Losartan Potassium [Cozaar] 25 mg PO DAILY tab 03/14/19 Metoprolol Tartrate [Lopressor 25 mg PO BID #60 tab 03/14/19 (beta destiney)] Nitroglycerin (INPATIENT USE) 0.4 mg SUBLINGUAL Q5M PRN tab.subl 03/14/19 [Nitrostat] losartan 25 mg tablet 25 mg PO DAILY #30 tab 03/14/19 - Allergies Allergies/Adverse Reactions: Allergies Fish Containing Products Allergy (Verified 02/14/19 10:45) Hives fluconazole [From Diflucan] Allergy (Verified 02/14/19 10:45) Hives iodine Allergy (Verified 02/14/19 10:45) Unknown orange Allergy (Verified 02/14/19 10:45) Hives Penicillins Allergy (Verified 02/14/19 10:45) Unknown pioglitazone [From Actos] Allergy (Verified 02/14/19 10:45) Hives povidone-iodine [From Betadine] Allergy (Verified 02/14/19 10:45) Unknown soap [From Betadine] Allergy (Verified 02/14/19 10:45) Unknown Sulfa (Sulfonamide Antibiotics) Allergy (Verified 02/14/19 10:45) Unknown sulfamethoxazole [From Bactrim] Allergy (Verified 02/14/19 10:45) Unknown tetanus and diphtheria toxoids Allergy (Verified 02/14/19 10:45) Hives trimethoprim [From Bactrim] Allergy (Verified 02/14/19 10:45) Unknown - Sleep Disorder Evaluation Hx of Sleep Apnea: Yes STOP Results: pt is on cpap already. Advanced Directives - Advanced Directives Power of Security Systems Engineer: No Living Will: No Advance Directives Information Provided: Yes Advance Directives on File: No Past Medical History - Past Medical Illness Medical History: Past Medical History (Last Updated 03/06/19 @ 09:04 by Carrie Bravo) Abnormal stress test (Acute) R94.39 Chest pain (Acute) R07.9 Essential hypertension (Chronic) I10 Obesity (Chronic) E66.9 Hypothyroidism (Chronic) E03.9 HLD (hyperlipidemia) (Chronic) E78.5 Type II diabetes mellitus (Chronic) E11.9 Dx : 1995 Last exacerbation : DKA : years ago Hypoglycemic episode : never ER visit : years ago Arthritis M19.90 Back problem M53.9 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 Pt had identical CP with balloon and stent deployment. Successful PTCA/ALFONSO mid LCX with a 2.5 x 20 Promus Synergy; 75%-->0%, no dissection. Pt had again similar anginal symptoms as she did at home with this lesion as well. Complete revascularization recommended given pt's abnl stress test, dyspnea on exertion, and difficulty evaluating pt due to body habitus. H/O arthroscopic knee surgery Z98.890 H/O colonoscopy Z98.890 H/O sinus surgery Z98.890 H/O thyroidectomy Z98.890, E89.0 History of left heart catheterization (LHC) Z98.890 2001; Mild disease of the LAD per cath 05/13/13 @ [facility] History of tonsillectomy Z98.890, Z90.89 History of total abdominal hysterectomy Z98.890, Z90.710 Hx of cholecystectomy Z98.890, Z90.49 H/O right heart catheterization Z98.890 Surgical History: total knee arthroplasty - Family History Summary Family History: Family History (Last Reviewed 02/14/19 @ 10:51 by Carrie Bravo) Mother Diabetes Heart disease Hypertension High cholesterol Kidney disease Cancer Father Diabetes Hypertension High cholesterol Cancer Sister Cancer Social History - Smoking History Smoking Status: Never smoker Hx Tobacco Use: No Hx Smoking Exposure: No - Alcohol Use Alcohol Usage: No - Occupation Occupation (List type of work in comments):: Retired - Hobbies, Recreation, Social Activities Hobbies: Reading, Other - crafts Recreational Activities: I am able to engage in all my recreational activities Social Environment - Status Marital Status: - Current Living Arrangements Living Environment:: Family, Spouse - Children How many children do you have?: 2 Do any of your children live nearby?: Yes - Safety Do you feel safe in your surroundings?: Yes - Assistance Do you need any assistance at home?: occas to get out of a chair d/t knees Review of Systems - Review of Systems Hints: Right click = Denies (Slash). Left click = Reports ([place]) Review of Present Symptoms: Reports: Shortness of Breath with Exertion - some SOB still, but improving., Angina - x 1 since stent. Does have prn Nitrostat if needed., Dizziness/Lightheadedness - occas with BS issues, Fatigue - but improving., Appetite - Normal, Appetite - Special Diet - cardiac diabetic diet., Sleep - Normal. Denies: Shortness of Breath at Rest, PVD, Operative Discomfort, Wound Healing, Heart Arrhythmia/Irregularities, Sexual Changes - Pain Is Patient Pain Free?: No Previous experience dealing with pain?: tylenol and mobic for knee pains. Risk Factor Assessment - Vital Signs Pulse Ox: 98 - Pulse Pulse Rate: 72 Pulse Rhythm: Regular - Hypertension How long have you been treated?: 30 On medication(s)?: yes Blood Pressure Sitting - Right Arm: 140/78 Blood Pressure Sitting - Left Arm: 120/60 - Blood Cholesterol/Lipids Total Cholesterol (mg/dL) Goal = less than 200 mg/dL: 130 HDL Cholesterol (mg/dL) Goal = less than 40 mg/dL: 39 LDL Cholesterol (mg/dL) Goal = less than 70 mg/dL: 53 Triglycerides (mg/dL) Goal = less than 150 mg/dL: 191 - Diabetes Diabetic History: Type II, Insulin Dependent Nutrition Referral for Diabetes: Yes - Obesity Height: 5 ft 2 in Weight:: 247 lb Weight in Pounds: 247.0 lbs Weight Source: Standing Scale Body Mass Index (BMI): 45.1 Desired Body Weight: 200 Realistic Weight Goal (Loss of 1-2 lbs/week): 223 Nutritional Referral for Obesity: Yes - Physical Inactivity Physical Inactivity: Reg Exercise 30 min/day - Risk Stratification Risk Guidelines: Lowest Risk: Risk Factor for Smoking, Risk Factor for Depression, Moderate Risk: Risk Factor for Dyslipidemia, Risk Factor for Hypertension, Highest Risk: Risk Factor for Diabetes, Risk Factor for Obesity, Risk Factor for Sedentary Lifestyle - For Smoking Smoking Risk Guidelines: Smoking Low Risk: None or quit greater than 6 months ago. Smoking Moderate Risk: Smoker or quit 6 months or less ago. Smoking High Risk: Smoker - For Dyslipidemia Dyslipidemia Risk Guidelines: Low Risk: Moderate Risk: High Risk: 15-25% fat 25.1-29% fat >/= 30% fat. <7% sat fat 7-9% sat fat >9% sat fat. <150 mg chol 150-299 mg chol >/= 300 mg chol. LDL <100 LDL 100-129 LDL >/= 130. Chol/HDL ratio <5.0 Chol/HDL ratio 5.0-6.0 Chol/HDL ratio >6.0. Triglycerides <100 Triglycerides 100-149 Triglycerides >/= 150 - For Diabetes Mellitus Diabetes Risk Guidelines: Diabetes Low Risk: HgA1c <6.5% and/or FBG <120. Diabetes Moderate Risk: HgA1c 6.6-7.9% and/or FBG 120-180. Diabetes High Risk: HgA1c >/= 8% and/or FBG >180 - For Obesity/Overweight Obesity/Overweight Risk Guidelines: Obesity Low Risk: BMI <25.0. Obesity Moderate Risk: BMI 25-29.9. Obesity High Risk: BMI >/= 30.0 - For Hypertension Hypertension Risk Guidelines: Hypertension Low Risk: Systolic <120 and Diastolic <80. Hypertension Moderate Risk: Systolic 120-139 and Diastolic 80-89. Hypertension High Risk: Systolic >/= 140 and Diastolic >/= 90 - For Sedentary Lifestyle Sedentary Lifestyle Risk Guidelines: Sedentary Lifestyle Low Risk: >/= 1,500 kcal/week. Sedentary Lifestyle Moderate Risk: 700-1,499 kcal/week. Sedentary Lifestyle High Risk: < 700 kcal/week - For Depression Depression Risk Guidelines: Depression Low Risk: Not clinically depressed. Depression Moderate Risk: Mildly depressed. Depression High Risk: Clinically depressed - Family History Family History: Family History (Last Reviewed 02/14/19 @ 10:51 by Carrie Bravo) Mother Diabetes Heart disease Hypertension High cholesterol Kidney disease Cancer Father Diabetes Hypertension High cholesterol Cancer Sister Cancer Motivation - Motivation to Participate On a scale of 1 to 10, how prepared are you to commit to attending program?: 8
[2019-03-21 13:11] VITALS: BP 120/60; BP 140/78; PULSE 72; O2SAT 98; BMI 45.1
== END ==
PROVIDERS: Family Provider Family Medicine; PCP Family Medicine; Referring Provider Internal Medicine Cardiovascular Disease; Visit Provider Internal Medicine Cardiovascular Disease
DX: I25.10 Atherosclerotic heart disease of native coronary artery without angina pectoris (principal); Z95.5 Presence of coronary angioplasty implant and graft

== ENCOUNTER → 2019-04-04 17:01 | Outpatient (CLI) | payer OTHER, SELFPAY ==
[2019-03-13 13:12] VITALS: BMI 46.6
[2019-03-28 10:43] VITALS: BMI 45.3
--- NOTE | 2019-04-04 17:08 | RAD_ITS ---
HISTORY: Abdominal pain for several months XR Abdomen 1 View TECHNIQUE: 1 view # of images incl. paperwork: 3 COMPARISON: None. FINDINGS: Post cholecystectomy clips. Loops of bowel are not dilated. No anomalous air-fluid levels are seen. No unusual abdominal calcifications. No evidence for pneumoperitoneum. Osseous structures are grossly intact. Mild lumbar spine degenerative changes. RAD/Abdomen Single View IMPRESSION: 1. Nonspecific nonobstructive bowel gas pattern. at 0053 Reported and signed by: Ambrose Norris MD Electronically Signed: Ambrose Norris MD at 0:52 EDT Tel , Service support ,
== END ==
PROVIDERS: Family Provider Family Medicine; PCP Family Medicine; Referring Provider Family Medicine; Visit Provider Family Medicine
DX: R10.9 Unspecified abdominal pain (principal)
CPT/HCPCS: 74018

== ENCOUNTER 2019-04-05 14:32 | Emergency (ER) | payer OTHER, SELFPAY ==
[2019-03-13 13:12] VITALS: BMI 46.6
[2019-03-28 10:43] VITALS: BMI 45.3
[2019-04-05 14:33] VITALS: BP 148/68; PULSE 100; RESP 18; TEMP 36.9; O2SAT 99; BMI 43.9
--- NOTE | 2019-04-05 15:02 | ED.DCSUM_ITS ---
- ER Visit Summary Date of Service: 04/05/19 Chief Complaint: Nausea, vomiting, diarrhea, abdominal pain History of Present Illness: The patient is a 63 F with nausea, vomiting, diarrhea, and abdominal pain. Symptoms started 2 weeks ago. She had incontinence at a restaurant. Last Monday and Monday, she had nausea, vomiting, and diarrhea. Earlier this week her symptoms returned. She saw her doctor yesterday and had an outpatient x-ray because her emesis was dark brown and she was worried about obstruction. She had continued symptoms today and was referred to the ED. Denies any recent antibiotics, travel, change in food. She has been on Plavix and a beta-destiney but no other new medications. No fevers, rash, or other associated symptoms. Physical Examination: Afebrile and vital signs unremarkable except for heart rate of 100. Patient is alert and oriented. No acute distress. HEENT exam mucous membranes are unremarkable. Heart regular rate. No respiratory distress. Abdomen soft, nontender, nondistended. No guarding or rebound. Skin appears normal. Test Results: We will check labs, CT, urine, and stool studies. Emergency Department Course and Treatment: Patient treated with fluids and Zofr an while awaiting results. CBC was unremarkable. Glucose was 68. She did have some juice. Creatinine was 1.10. Liver panel and lipase normal. Urinalysis unremarkable. Patient was unable to provide a stool specimen. CT abdomen showed a fatty liver and skin thickening of her lower abdominal wall consistent with her insulin injections. On reevaluation, patient is feeling better. She would like to try outpatient therapy. She declined inpatient care. She will be prescribed Cipro, Flagyl, and Zofran. She was given a paper order form for outpatient stool testing. Patient will follow-up with her doctor. If she has any issues or cannot take her medications, she will return for admission. Treatment Plan: As above Disposition: Discharge Impression: 1. Diarrhea This note was generated with [employer] dictation software. It may contain incorrect words, spelling, and punctuation that were not noted in review of the chart prior to signing ED Disposition - Plan for ED Patient: Referrals: Korey Guillen III, MD [Primary Care Provider] -
--- NOTE | 2019-04-05 15:03 | CT_ITS ---
STUDY: CT ABDOMEN AND PELVIS WITHOUT CONTRAST REASON FOR EXAM: Female, 63 years old. Abdominal pain. Diarrhea. RADIATION DOSAGE (If Supplied By Facility): CTDIvol = ( 23.76 ) mGy, DLP = ( 1163.38 ) mGycm TECHNIQUE: Transaxial images were obtained from the dome of the diaphragm to the symphysis pubis without oral contrast, and without intravenous contrast. Sagittal and coronal images were reconstructed. Individualized dose optimization techniques were used for this CT. COMPARISON: 11/11/2016 FINDINGS: Evaluation of the abdominal viscera is limited in the absence of intravenous contrast. The visualized lung bases are clear. The visualized portions of the heart and pericardium are within normal limits. The patient is status post cholecystectomy. The liver is low in density, consistent with fatty infiltration. The spleen is normal in size. The pancreas demonstrates an unremarkable unenhanced appearance. The adrenal glands are within normal limits. There are no renal or ureteral stones. There is no hydronephrosis. Normal visualized stomach. There is no bowel obstruction or inflammation. The appendix is visualized and appears normal. The aorta is normal in caliber. There are atherosclerotic calcifications noted in the aorta and its branches. There is no abdominal or pelvic free air, free fluid, fluid collection or lymphadenopathy. There are no destructive osseous lesions. There is skin thickening in the right lower quadrant and left lower quadrant anterior abdominal wall (for example image 132 series 2). Correlation with physical exam is recommended. CT/Abdomen/Pelvis without Cont IMPRESSION: No bowel obstruction or summation. Normal appendix. No urinary calculi. No hydronephrosis. Fatty liver. Skin thickening in the lower abdominal wall. Correlation with physical exam is recommended. Electronically Signed: Jonnie Vernon, at 16:32 EDT Tel , Service support ,
[2019-04-05] MEDS: 0.9% Normal Saline 1,000 ML 1000 ML IV (15:24)
[2019-04-05] MEDS: Ondansetron 4 MG/2 ML Vial IV (15:25)
[2019-04-05 15:39] LABS: Absolute Neutrophil Count 5.6 X10^3/uL (2.0-7.7); Basophil# 0.03 X10^3/uL; Basophil% 0.3 % (0-1); Eosinophil# 0.27 X10^3/uL; Eosinophils% 3.1 % (0-5); Hematocrit 41.9 % (37-47); Hemoglobin 13.4 g/dL (12.0-15.0); Lymphocyte % 22.8 % (19-41); Mean Corpuscular Hgb 27.7 pg (27.0-32.0); Mean Corpuscular Volume 86.7 fL (81-99); Mean Platelet Vol. 9.1 fl (6.2-12.0); Monocyte% 9.1 % (0-10); NRBC Flagged by Analyzer 0 % (0-5); Neutrophil # 5.62 X10^3/uL (2.7-7.7); Neutrophil % 64.2 % (47-70); Platelet Count 311 K/mm3 (150-450); RBC Distribution Width CV 13.5 % (11.6-14.6); RBC Distribution Width SD 42.8 fl (35.1-43.9); Red Blood Count 4.83 M/mm3 (4.2-5.4); White Blood Count 8.8 K/mm3 (4.4-11.0)
[2019-04-05 15:58] LABS: ALB/GLOB Ratio 0.9 RATIO (0.9-2.4); AST(SGOT) 19 U/L (15-37); Alanine Aminotransfer ALT/SGPT 17 U/L (13-56); Albumin, Serum 3.4 g/dL (3.2-5.0); Alkaline Phosphatase 99 U/L (45-117); Anion Gap 6 (5-15); BUN 16 mg/dL (7-18); BUN/Creat Ratio 14.5 RATIO (10-20); Chloride 104 mmol/L (98-107); EST Glomerular Filtration Rate 53 mL/min (>60); Est Glom Filt Rate - Afr Amer 64 mL/min (>60); Estimated Creatinine Clearance 40.86 ml/min; Globulin 3.7 g/dL (2.2-4.2); Glucose 68 mg/dL (74-106); Lipase 88 U/L (73-393); Potassium 4.1 mmol/L (3.5-5.1); Protein, Total 7.1 g/dL (6.4-8.2); Sodium Level 136 mmol/L (136-145)
[2019-04-05 16:27] LABS: Bacteria 0 SEEN /hpf (None Seen); Mucous, Urine 0 SEEN /hpf (<or=2+); Red Blood Cells-Urine 0 SEEN /hpf (0-5); White Blood Cells 0 SEEN /hpf (0-5)
[2019-04-05 16:50] LABS: Color, Urine Yellow (Yellow); Glucose, Dipstick Normal (Normal); Ketone-Dipstick Negative (Negative); Leukocyte Esterase-Dipstick Negative /ul (Negative); Nitrite-Dipstick Negative (Negative); Occult Blood-Urine Negative /ul (Negative); Protein-Dipstick Negative (Negative); Specific Gravity, Urine 1.015 (1.002-1.030); Urine Bilirubin Dipstick Negative (Negative); Urine Clarity Clear (Clear); Urine Urobilinogen Normal (Normal)
[2019-04-05 17:05] VITALS: BP 94/46; PULSE 75; RESP 16; O2SAT 100
[2019-04-05 17:05] LABS: Squamous Epithelial Cells - UA 0-5 SEEN /hpf (5-10)
--- NOTE | 2019-04-05 17:37 | ED.DEP ---
ED Disposition - Plan for ED Patient: Instructions: Self-Care for Vomiting and Diarrhea Prescriptions: Ciprofloxacin [Cipro] 500 mg PO BID #14 tab Prescription Printed metroNIDAZOLE [Flagyl] 500 mg PO Q8H #21 tab Prescription Printed Ondansetron [Zofran Odt] 4 mg PO Q8H PRN PRN #10 tab PRN Reason: Nausea Prescription Printed Referrals: Korey Guillen III, MD [Primary Care Provider] -
[2019-04-05] MEDS: metroNIDAZOLE 500 MG Tablet PO (17:54)
[2019-04-05] MEDS: Ciprofloxacin 500 MG Tablet PO (17:54)
[2019-04-05 17:56] VITALS: BP 118/71; PULSE 79; RESP 14; O2SAT 99
== END 2019-04-05 18:06 | disposition home or self-care (01) ==
LOC: ED 14:59
PROVIDERS: Emergency Provider Emergency Medicine; Family Provider Family Medicine; PCP Family Medicine
DX: R19.7 Diarrhea, unspecified (principal); R11.2 Nausea with vomiting, unspecified; R10.9 Unspecified abdominal pain; I25.10 Atherosclerotic heart disease of native coronary artery without angina pectoris; E11.9 Type 2 diabetes mellitus without complications; I10 Essential (primary) hypertension; E03.9 Hypothyroidism, unspecified; G47.33 Obstructive sleep apnea (adult) (pediatric); Z79.82 Long term (current) use of aspirin; Z79.4 Long term (current) use of insulin; Z79.899 Other long term (current) drug therapy; Z79.02 Long term (current) use of antithrombotics/antiplatelets; Z95.5 Presence of coronary angioplasty implant and graft
CPT/HCPCS: 74176; 80053; 81001; 83690; 85025; 87177; 87209; 87493; 87506; 96361; 96374; 99285; J7030; A4216; J2405

== ENCOUNTER → 2019-04-09 20:02 | Outpatient (CLI) | payer OTHER, SELFPAY ==
[2019-03-13 13:12] VITALS: BMI 46.6
[2019-03-28 10:43] VITALS: BMI 45.3
== END ==
PROVIDERS: Family Provider Family Medicine; PCP Family Medicine; Referring Provider Internal Medicine Critical Care Medicine; Visit Provider Internal Medicine Critical Care Medicine
DX: G47.33 Obstructive sleep apnea (adult) (pediatric) (principal)
CPT/HCPCS: 95811

== ENCOUNTER → 2019-04-19 14:01 | Outpatient (CLI) | payer OTHER, SELFPAY ==
[2019-03-13 13:12] VITALS: BMI 46.6
[2019-04-05 14:33] VITALS: BMI 43.9
== END ==
PROVIDERS: Family Provider Family Medicine; PCP Family Medicine; Visit Provider Nurse Practitioner Acute Care
DX: Z46.89 Encounter for fitting and adjustment of other specified devices (principal)

== ENCOUNTER → 2019-04-30 09:51 | Outpatient (CLI) | payer OTHER, SELFPAY ==
[2019-03-13 13:12] VITALS: BMI 46.6
[2019-03-28 10:43] VITALS: BMI 45.3
[2019-04-05 14:33] VITALS: BMI 43.9
--- NOTE | 2019-04-30 12:10 | BI_ITS ---
MAMMOGRAPHY - BILATERAL SCREENING REASON FOR EXAM: Female, 63 years old. Routine annual screening examination. PERTINENT HISTORY: Non-contributory. TECHNIQUE: Digital bilateral breast jayne (3D mammographic acquisition) in the CC and MLO projections. 2-D mediolateral oblique (MLO) and craniocaudad (CC) views of both breasts were obtained. CAD: Full Field Digital Mammography with Computer Added Detection was performed. COMPARISON: Comparison is made with prior examination dated December 11, 2017 and November 25, 2016. FINDINGS: Breast Composition: The breasts are almost entirely fatty. There are no dominant masses or suspicious calcifications. Stable 5.3 mm calcified nodule in the superior lateral retroareolar region of the right breast. No other significant abnormalities are identified. There has been no significant change since the prior study. BI/SCREEN MAMM (CAD) W/JAYNE BILAT IMPRESSION: Stable bilateral screening mammogram. Yearly follow-up mammogram recommended. (A) ASSESSMENT CATEGORY: BIRADS Category 2: Benign. A letter regarding these results will be sent to the patient by the facility within 30 days. Approximately 10% of breast cancers are not detected by mammography. A normal mammogram should not delay biopsy of a clinically suspicious abnormality. [id number] Electronically Signed: Cliff Horowitz, at 13:40 EDT , Service support ,
--- NOTE | 2019-05-01 13:31 | PFT ---
INTRODUCTION: The patient is a 63-year-old female that presents for pulmonary function studies secondary to a diagnosis of dyspnea. Respiratory therapy reports good patient effort. Bronchodilators were used during testing. INTERPRETATION: Forced expiration spirometry demonstrates no evidence of a large airways obstructive ventilatory defect. There was no significant response to aerosolized bronchodilators. Spirograms are of good quality and plateau gradually. Body plethysmography was performed and reveals lung volumes to be within normal limits. Diffusing capacity by single breath CO is reduced at 55% of predicted. IMPRESSION: Isolated reduction in diffusing capacity, which could be related to an underlying pulmonary vascular disorder such as pulmonary hypertension.
== END ==
PROVIDERS: Family Provider Family Medicine; PCP Family Medicine; Referring Provider Family Medicine; Visit Provider Family Medicine
DX: Z12.31 Encounter for screening mammogram for malignant neoplasm of breast (principal); R06.09 Other forms of dyspnea
CPT/HCPCS: 77063; 77067; 94060; 94726; 94729

== ENCOUNTER 2019-05-01 13:00 | Outpatient (RCR) | payer OTHER, SELFPAY ==
[2019-03-13 13:12] VITALS: BMI 46.6
[2019-03-28 10:43] VITALS: BMI 45.3
== END 2019-05-04 23:59 ==
LOC: DC 13:00
PROVIDERS: Family Provider Family Medicine; PCP Family Medicine; Visit Provider Internal Medicine Cardiovascular Disease
DX: E11.9 Type 2 diabetes mellitus without complications (principal); E66.9 Obesity, unspecified; Z71.3 Dietary counseling and surveillance
CPT/HCPCS: 97802; G0108

== ENCOUNTER 2019-05-03 11:30 | Outpatient (RCR) | payer OTHER, SELFPAY ==
[2019-03-13 13:12] VITALS: BMI 46.6
[2019-03-21 13:11] VITALS: BMI 45.1
--- NOTE | 2019-04-22 12:58 | PCM.CR.ITP ---
Exercise - 30-day Assessment - Visit Date of Eval: 04/22/19 Session #:: 3 - Delayed starting CR due to other health issue. Patient started CR on 04/17/2019. Nutrition - Initial Assessment - Program Goals Nutrition Program Goals: LDL <70. Total Cholesterol <200. HDL >45. Triglycerides <150. HgbA1C <7%. BMI <25 - Diabetes Do you monitor your blood sugar at home?: Yes Nutrition - 30-Day Assessment - Program Goals Nutrition Program Goals: LDL <70. Total Cholesterol <200. HDL >45. Triglycerides <150. HgbA1C <7%. BMI <25 - Visit Date of Eval: 04/22/19 - Delayed start; patient started here CR on 04/17/2019 due to other health related issues. Tobacco - Initial Assessment - Program Goals Tobacco Program Goals: Complete smoking cessation. Attend education classes. Improve Knowledge Test score - Learning Barriers Learning Barriers: Ready to Learn Psychosocial - Initial Assess - Target Goals Target Goals: Assess presence or absence of depression. Using a valid screening tool, maximizes coping skills. Positive support system - Psychosocial Test Tool Used:: HANDS Depression Questionnaire - Assistive Devices Fall Risk Assessed:: Yes
== END 2019-05-04 23:59 ==
LOC: CR 11:30
PROVIDERS: Family Provider Family Medicine; PCP Family Medicine; Referring Provider Internal Medicine Cardiovascular Disease; Visit Provider Internal Medicine Cardiovascular Disease
DX: Z95.5 Presence of coronary angioplasty implant and graft (principal); I25.10 Atherosclerotic heart disease of native coronary artery without angina pectoris
CPT/HCPCS: 93798

== ENCOUNTER 2019-05-28 12:16 | Outpatient (RCR) | payer OTHER, SELFPAY ==
[2019-03-13 13:12] VITALS: BMI 46.6
== END 2019-06-03 23:59 ==
LOC: DC 12:16
PROVIDERS: Family Provider Family Medicine; PCP Family Medicine; Visit Provider Internal Medicine Cardiovascular Disease
DX: E11.9 Type 2 diabetes mellitus without complications (principal); E66.9 Obesity, unspecified; Z71.3 Dietary counseling and surveillance
CPT/HCPCS: 97803

== ENCOUNTER 2019-06-03 11:30 | Outpatient (RCR) | payer OTHER, SELFPAY ==
[2019-03-13 13:12] VITALS: BMI 46.6
--- NOTE | 2019-05-22 07:18 | PCM.CR.ITP ---
General Information - General Information Admitting Diagnosis: PCI with stent - Education/Goals Barriers to Learning: None Cardiac Rehabilitation Goals: 1. Maintain the individual as the primary focus of care. 2. To improve the patient's quality of life. 3. Identification of cardiac risk factors and provide cardiac risk factor management. 4. Enhance the psychosocial status of the patient. 5. Reconditioning enough to allow the patient to resume customary activities. 6. Control symptoms of cardiac disease Scale for measuring improvement of personal goals: Enter appropriate number in Comments. 2 = Unchanged. 3 = Slightly Better. 4 = Moderate Improvement. 5 = Met my Goal Exercise - 60-Day Assessment - Visit Date of Eval: 05/22/19 Session #:: 14 - Stages of Change Stages of Change:: Action - Physician Prescribed Exercise Modalities: Biodyne, NuStep, SciFit Frequency (days/week): 3 Duration (Minutes):: 30-45 Intensity: 60-80% age predicted maximum heart rate reserve METs - Progression: 0.5-1.0 MET, RPE 11-14 WEEK: 2.5 Target Heart Rate:: 101-132 Max HR 114 - Hypertension Resting Blood Pressure:: 100/52 Peak Exercise Blood Pressure:: 152/66 - Intervention Home Exercise/Activity Goal:: Sitting Time <3 hrs/day - Education Goals:: Warm-up, RPE [place] Scale, S/S, Safe Exercise, Self-Monitoring - Exercise Program Goals Exercise Program Goals: Aerobic Activity >30 min, B/P <130/80 Nutrition - Initial Assessment - Program Goals Nutrition Program Goals: LDL <70. Total Cholesterol <200. HDL >45. Triglycerides <150. HgbA1C <7%. BMI <25 - Diabetes Do you monitor your blood sugar at home?: Yes Nutrition - 60-Day Assessment - Program Goals Nutrition Program Goals: LDL <70. Total Cholesterol <200. HDL >45. Triglycerides <150. HgbA1C <7%. BMI <25 - Visit Date of Eval: 05/22/19 - Stages of Change Stages of Change:: Action - Lipids Has the patient seen the dietitian?: Yes - Diabetes Diabetes:: Yes Insulin: Yes Random Blood Glucose:: 113 - Weight Management Weight:: 111.357 kg - Intervention Referral to dietitian:: Yes Referral to Diabetic Clinic:: Yes Will attend diet classes:: Yes - Education Attended class for:: Signs & symptoms of hypoglycemia, Signs & symptoms of hyperglycemia, Relate diabetes to coronary artery disease, Healthy eating Tobacco - Initial Assessment - Program Goals Tobacco Program Goals: Complete smoking cessation. Attend education classes. Improve Knowledge Test score - Learning Barriers Learning Barriers: Ready to Learn Tobacco - 60-Day Assessment - Program Goals Tobacco Program Goals: Complete smoking cessation. Attend education classes. Improve Knowledge Test score - Stage of Change Stages of Change:: Action - Learning Barriers Learning Barriers: Participates in education - Family Support Do you have family support?: Yes - Tobacco Use Tobacco Use: Non-smoker Do you use smokeless tobacco?: No - Intervention Smoking Cessation Referral:: No Individual Education/Counseling:: No Education Schedule Given:: Yes - Education Attended class for:: Treating Heart Disease, How The Heart Works, What it means to have Heart Disease, How Coronary Artery Disease is Diagnosed, Heart Procedures, What Heart Medications Do, Risk Factors & Modifications, Living an Active Life, Nutrition, Emotions & Heart Disease, Stress Management & Relaxation, Sleep Disorders & Heart Disease Psychosocial - Initial Assess - Target Goals Target Goals: Assess presence or absence of depression. Using a valid screening tool, maximizes coping skills. Positive support system - Psychosocial Test Tool Used:: HANDS Depression Questionnaire - Assistive Devices Fall Risk Assessed:: Yes Psychosocial - 60-Day Assess - Target Goals Target Goals: Assess presence or absence of depression. Using a valid screening tool, maximizes coping skills. Positive support system - Stages of Change Stages of Change:: Action - Psychosocial Test Tool Used:: HANDS Depression Questionnaire - Intervention PS - Interventions: Yes Attend Stress Management Classes, Yes Uses Stress Management Skills, No Referral to Mental Health, No Referral to [facility] Case Management, No Referral to Physician - Education Attended classes for:: Coping techniques, Signs & symptoms of depression, Stress management, Relaxation techniques - Assistive Devices Assistive Devices:: None Fall Risk Assessed:: Yes Patient Health Questionnaire 60-Day Re-eval Assessment 1. Little interest or pleasure in doing things: Several days 2. Feeling down, depressed, or hopeless: Several days 3. Trouble falling or staying asleep, or sleeping too much: More than half the days 4. Feeling tired or having little energy: Several days 5. Poor appetite or overeating: Several days 6. Feeling bad about yourself -- or that you are a failure or have let yourself or your family down: Several days 7. Trouble concentrating on things, such as reading the newspaper or watching television: Several days 8. Moving or speaking so slowly that other people could have noticed. Or the opposite - being so fidgety or restless that you have been moving around a lot more than usual: Not at all 9. Thoughts that you would be better off , or of hurting yourself in some way: Not at all How difficult have these problems made it for you to do your work, take care of things at home, or get along with other people?: Very difficult Total Score: 8 Self-Efficacy 60-Day Re-eval Assessment We would like to know how confident you are in doing certain activities. Please select your confidence level for:: Select your confidence level for the following using the scale 1-10 where 1 is not at all confident and 10 is totally confident. Your score is the average of all 6 responses. Fatigue: How confident are you that you can keep the fatigue caused by your disease from interfering with the things you want to do? Select Number: 1 Physical Discomfort or Pain: How confident are you that you can keep the physical discomfort or pain of your disease from interfering with the things you want to do? Select Number: 1 Emotional Distress: How confident are you that you can keep the emotional distress caused by your disease from interfering with the things you want to do? Select Number: 5 Other Symptoms or Health Problems: How confident are you that you can keep other symptoms or health problems from interfering with the things you want to do? Select Number: 5 Different Tasks and Activities: How confident are you that you can do the different tasks and activities needed to manage your health condition so as to reduce your need to see a doctor? Select Number: 5 Medication: How confident are you that you can do things other than just taking medication to reduce how much your illness affects your everyday life? Select Number: 5 Total Score:: 3
[2019-05-22 07:23] VITALS: BP 100/52; BP 152/66
== END 2019-06-03 23:59 ==
LOC: CR 11:30
PROVIDERS: Family Provider Family Medicine; PCP Family Medicine; Referring Provider Internal Medicine Cardiovascular Disease; Visit Provider Internal Medicine Cardiovascular Disease
DX: I25.10 Atherosclerotic heart disease of native coronary artery without angina pectoris (principal); Z95.5 Presence of coronary angioplasty implant and graft
CPT/HCPCS: 93798

== ENCOUNTER → 2019-06-07 10:20 | Outpatient (CLI) | payer OTHER, SELFPAY ==
[2019-03-13 13:12] VITALS: BMI 46.6
[2019-06-07 11:44] LABS: Microalbumin,Random Urine < 5.0 mg/L (NO RANGE EST.)
[2019-06-07 11:54] LABS: Hemoglobin A1c 8.6 % (4.2-6.3)
[2019-06-07 12:22] LABS: AST(SGOT) 12 U/L (15-37); Alanine Aminotransfer ALT/SGPT 16 U/L (13-56); Albumin, Serum 3.5 g/dL (3.2-5.0); Alkaline Phosphatase 103 U/L (45-117); Anion Gap 10 (5-15); BUN 17 mg/dL (7-18); BUN/Creat Ratio 15.3 RATIO (10-20); Calcium,Total 9.1 mg/dL (8.5-10.1); Chloride 98 mmol/L (98-107); Creatinine, Serum 1.11 mg/dL (0.55-1.02); EST Glomerular Filtration Rate 53 mL/min (>60); Est Glom Filt Rate - Afr Amer 64 mL/min (>60); Globulin 3.6 g/dL (2.2-4.2); Glucose 208 mg/dL (74-106); Potassium 3.7 mmol/L (3.5-5.1); Protein, Total 7.1 g/dL (6.4-8.2); Sodium Level 137 mmol/L (136-145); Thyroid Stim Hormone (TSH) 0.01 uIU/mL (0.358-3.74)
== END ==
PROVIDERS: Family Provider Family Medicine; PCP Family Medicine; Referring Provider Family Medicine; Visit Provider Family Medicine
DX: E11.22 Type 2 diabetes mellitus with diabetic chronic kidney disease (principal); N18.3 Chronic kidney disease, stage 3 (moderate); E11.65 Type 2 diabetes mellitus with hyperglycemia; Z79.4 Long term (current) use of insulin; E89.0 Postprocedural hypothyroidism
CPT/HCPCS: 36415; 80053; 82043; 82570; 83036; 84443

== ENCOUNTER 2019-06-17 12:15 | Outpatient (RCR) | payer OTHER, SELFPAY ==
[2019-03-13 13:12] VITALS: BMI 46.6
== END 2019-07-04 23:59 ==
LOC: DC 12:15
PROVIDERS: Family Provider Family Medicine; PCP Family Medicine; Visit Provider Internal Medicine Cardiovascular Disease
DX: E11.9 Type 2 diabetes mellitus without complications (principal); E66.9 Obesity, unspecified; Z71.3 Dietary counseling and surveillance
CPT/HCPCS: 97803; G0108

== ENCOUNTER 2019-07-03 11:30 | Outpatient (RCR) | payer OTHER, SELFPAY ==
[2019-03-13 13:12] VITALS: BMI 46.6
[2019-06-04 00:17] VITALS: BP 100/52; BP 152/66
--- NOTE | 2019-06-17 09:39 | PCM.CR.ITP ---
Exercise - 60-Day Assessment - Visit Date of Eval: 06/17/19 Session #:: 23 - DELAYED STARTING CR UNTIL 04/17/2019. HAS MISSED 2 SESSIONS SINCE DUE TO ILLNESS. - Stages of Change Stages of Change:: Action - Physician Prescribed Exercise Modalities: Biodyne, NuStep, SciFit Frequency (days/week): 3 Duration (Minutes):: 30-45 Intensity: 60-80% age predicted maximum heart rate reserve METs - Progression: 0.5-1.0 MET, RPE 11-14 WEEK: 3.5 LIMITED DUE TO KNEE ISSUES, PATIENT STATES WHICH ARE [id number]. Target Heart Rate:: 101-132 W/ MAX HR 98 - Hypertension Resting Blood Pressure:: 104/58 Peak Exercise Blood Pressure:: 116/64 Medication Changes:: Yes - 06/14 RANITIDINE AND LOSARTAN DC'D - Intervention Home Exercise/Activity Goal:: Sitting Time <3 hrs/day - Education Goals:: Warm-up, RPE [place]O Scale, S/S, Safe Exercise, Self-Monitoring - Exercise Program Goals Exercise Program Goals: Aerobic Activity >30 min Nutrition - Initial Assessment - Program Goals Nutrition Program Goals: LDL <70. Total Cholesterol <200. HDL >45. Triglycerides <150. HgbA1C <7%. BMI <25 - Diabetes Do you monitor your blood sugar at home?: Yes Nutrition - 60-Day Assessment - Program Goals Nutrition Program Goals: LDL <70. Total Cholesterol <200. HDL >45. Triglycerides <150. HgbA1C <7%. BMI <25 - Visit Date of Eval: 06/17/19 - Stages of Change Stages of Change:: Action - Lipids Has the patient seen the dietitian?: Yes - 04/25/2019 - Diabetes Diabetes:: Yes Insulin: Yes Non-Insulin Dependent?: Yes - Weight Management Weight:: 247 lb - +/- 2 POUNDS WEEKLY - Intervention Referral to dietitian:: No - SSEN ON 04/25/2019 Referral to Diabetic Clinic:: No Will attend diet classes:: Yes - Education Attended class for:: Signs & symptoms of hypoglycemia, Signs & symptoms of hyperglycemia, Relate diabetes to coronary artery disease, Healthy eating Tobacco - Initial Assessment - Program Goals Tobacco Program Goals: Complete smoking cessation. Attend education classes. Improve Knowledge Test score - Learning Barriers Learning Barriers: Ready to Learn Tobacco - 60-Day Assessment - Program Goals Tobacco Program Goals: Complete smoking cessation. Attend education classes. Improve Knowledge Test score - Stage of Change Stages of Change:: Action - Learning Barriers Learning Barriers: Participates in education, Change in behavior - Family Support Do you have family support?: Yes - Tobacco Use Tobacco Use: Non-smoker Do you use smokeless tobacco?: No - Intervention Smoking Cessation Referral:: No Individual Education/Counseling:: No Education Schedule Given:: Yes - Education Attended class for:: How Coronary Artery Disease is Diagnosed, Heart Procedures, What Heart Medications Do, Risk Factors & Modifications, Living an Active Life, Nutrition Psychosocial - Initial Assess - Target Goals Target Goals: Assess presence or absence of depression. Using a valid screening tool, maximizes coping skills. Positive support system - Psychosocial Test Tool Used:: HANDS Depression Questionnaire - Assistive Devices Fall Risk Assessed:: Yes Psychosocial - 60-Day Assess - Target Goals Target Goals: Assess presence or absence of depression. Using a valid screening tool, maximizes coping skills. Positive support system - Stages of Change Stages of Change:: Action - Psychosocial Test Tool Used:: HANDS Depression Questionnaire - Intervention PS - Interventions: Yes Attend Stress Management Classes, No Referral to Mental Health, No Referral to [facility] Case Management, No Referral to Physician, No Uses Stress Management Skills - Education Attended classes for:: Coping techniques, Signs & symptoms of depression, Stress management, Relaxation techniques - Patient/Program Goal Preventative Medication(s):: Aspirin, ANDRIY inhibitor, Clopidogrel, Beta destiney, Statin/lipid - PATINET COMPLIANT WITH MEDICATIONS - Assistive Devices Assistive Devices:: None Fall Risk Assessed:: Yes Patient Health Questionnaire 60-Day Re-eval Assessment 1. Little interest or pleasure in doing things: Several days 2. Feeling down, depressed, or hopeless: Several days 3. Trouble falling or staying asleep, or sleeping too much: More than half the days 4. Feeling tired or having little energy: Several days 5. Poor appetite or overeating: Several days 6. Feeling bad about yourself -- or that you are a failure or have let yourself or your family down: Several days 7. Trouble concentrating on things, such as reading the newspaper or watching television: Not at all 8. Moving or speaking so slowly that other people could have noticed. Or the opposite - being so fidgety or restless that you have been moving around a lot more than usual: Not at all 9. Thoughts that you would be better off , or of hurting yourself in some way: Not at all How difficult have these problems made it for you to do your work, take care of things at home, or get along with other people?: Very difficult Total Score: 7 Self-Efficacy 60-Day Re-eval Assessment We would like to know how confident you are in doing certain activities. Please select your confidence level for:: Select your confidence level for the following using the scale 1-10 where 1 is not at all confident and 10 is totally confident. Your score is the average of all 6 responses. Fatigue: How confident are you that you can keep the fatigue caused by your disease from interfering with the things you want to do? Select Number: 3 Physical Discomfort or Pain: How confident are you that you can keep the physical discomfort or pain of your disease from interfering with the things you want to do? Select Number: 3 Emotional Distress: How confident are you that you can keep the emotional distress caused by your disease from interfering with the things you want to do? Select Number: 5 Other Symptoms or Health Problems: How confident are you that you can keep other symptoms or health problems from interfering with the things you want to do? Select Number: 5 Different Tasks and Activities: How confident are you that you can do the different tasks and activities needed to manage your health condition so as to reduce your need to see a doctor? Select Number: 6 Medication: How confident are you that you can do things other than just taking medication to reduce how much your illness affects your everyday life? Select Number: 6 Total Score:: 4
[2019-06-17 09:46] VITALS: BP 104/58; BP 116/64
== END 2019-07-04 23:59 ==
LOC: CR 11:30
PROVIDERS: Family Provider Family Medicine; PCP Family Medicine; Referring Provider Internal Medicine Cardiovascular Disease; Visit Provider Internal Medicine Cardiovascular Disease
DX: I25.10 Atherosclerotic heart disease of native coronary artery without angina pectoris (principal); Z95.5 Presence of coronary angioplasty implant and graft
CPT/HCPCS: 93798

== ENCOUNTER 2019-07-11 17:31 | Outpatient (RCR) | payer OTHER, SELFPAY ==
[2019-03-13 13:12] VITALS: BMI 46.6
[2019-06-28 12:14] VITALS: BMI 44.8
== END 2019-07-11 23:59 | disposition home or self-care (01) ==
LOC: DC 17:31
PROVIDERS: Family Provider Family Medicine; PCP Family Medicine; Visit Provider Internal Medicine Cardiovascular Disease
DX: Z71.3 Dietary counseling and surveillance (principal); E11.9 Type 2 diabetes mellitus without complications; E66.9 Obesity, unspecified
CPT/HCPCS: G0109

== ENCOUNTER 2019-07-15 12:00 | Outpatient (RCR) | payer OTHER, SELFPAY ==
[2019-03-13 13:12] VITALS: BMI 46.6
[2019-06-28 12:14] VITALS: BMI 44.8
[2019-07-05 00:23] VITALS: BP 104/58; BP 116/64
== END 2019-08-03 23:59 ==
LOC: CR 12:00
PROVIDERS: Family Provider Family Medicine; PCP Family Medicine; Referring Provider Internal Medicine Cardiovascular Disease; Visit Provider Internal Medicine Cardiovascular Disease
DX: I25.10 Atherosclerotic heart disease of native coronary artery without angina pectoris (principal); Z95.5 Presence of coronary angioplasty implant and graft
CPT/HCPCS: 93798

== ENCOUNTER → 2019-07-22 16:45 | Outpatient (CLI) | payer OTHER, SELFPAY ==
[2019-03-13 13:12] VITALS: BMI 46.6
[2019-06-28 12:14] VITALS: BMI 44.8
[2019-07-22 18:34] LABS: Thyroid Stim Hormone (TSH) 0.41 uIU/mL (0.358-3.74)
== END ==
PROVIDERS: Family Provider Family Medicine; PCP Family Medicine; Referring Provider Family Medicine; Visit Provider Family Medicine
DX: E03.9 Hypothyroidism, unspecified (principal)
CPT/HCPCS: 36415; 84443

== ENCOUNTER → 2019-09-03 11:14 | Outpatient (CLI) | payer OTHER, SELFPAY ==
[2019-03-13 13:12] VITALS: BMI 46.6
[2019-06-28 12:14] VITALS: BMI 44.8
[2019-09-03 13:50] LABS: Absolute Lymphocyte Count 2.28 X10^3/uL (0.83-4.51); Absolute Neutrophil Count 6.5 X10^3/uL (2.0-7.7); Basophil# 0.05 X10^3/uL; Basophil% 0.5 % (0-1); Eosinophil# 0.13 X10^3/uL; Eosinophils% 1.3 % (0-5); Hematocrit 40.5 % (37-47); Lymphocyte # 2.28 X10^3/ul (4.0); Lymphocyte % 23.3 % (19-41); Mean Corp Hgb Conc 32.1 g/dL (32-36); Mean Corpuscular Volume 87.3 fL (81-99); Mean Platelet Vol. 9.2 fl (6.2-12.0); Monocyte# 0.77 X10^3/uL; Monocyte% 7.9 % (0-10); NRBC Flagged by Analyzer 0 % (0-5); Neutrophil # 6.52 X10^3/uL (2.7-7.7); Neutrophil % 66.6 % (47-70); Platelet Count 303 K/mm3 (150-450); RBC Distribution Width CV 13.4 % (11.6-14.6); RBC Distribution Width SD 42.7 fl (35.1-43.9); Red Blood Count 4.64 M/mm3 (4.2-5.4); White Blood Count 9.8 K/mm3 (4.4-11.0)
[2019-09-03 14:23] LABS: Hemoglobin A1c 9.1 % (4.2-6.3)
[2019-09-03 14:38] LABS: Anion Gap 9 (5-15); BUN 23 mg/dL (7-18); Calcium,Total 9.9 mg/dL (8.5-10.1); Chloride 98 mmol/L (98-107); Cholesterol 123 mg/dL (200); Creatinine, Serum 1.15 mg/dL (0.55-1.02); EST Glomerular Filtration Rate 50 mL/min (>60); Est Glom Filt Rate - Afr Amer 61 mL/min (>60); Glucose 263 mg/dL (74-106); High Density Lipoprotein 45 mg/dL; Sodium Level 136 mmol/L (136-145); Triglycerides 230 mg/dL; Very Low Density Lipoprotein 46 mg/dL (5-40)
== END ==
PROVIDERS: Family Provider Family Medicine; PCP Family Medicine; Referring Provider Family Medicine; Visit Provider Family Medicine
DX: E11.65 Type 2 diabetes mellitus with hyperglycemia (principal); E78.5 Hyperlipidemia, unspecified
CPT/HCPCS: 36415; 80048; 80061; 83036; 85025

== ENCOUNTER → 2019-12-19 13:14 | Outpatient (CLI) | payer MEDICARE, BC, SELFPAY ==
[2019-03-13 13:12] VITALS: BMI 46.6
[2019-11-25 13:24] VITALS: BMI 45.3
[2019-12-19 15:35] LABS: ALB/GLOB Ratio 0.9 RATIO (0.9-2.4); AST(SGOT) 13 U/L (15-37); Alanine Aminotransfer ALT/SGPT 20 U/L (13-56); Albumin, Serum 3.4 g/dL (3.2-5.0); Alkaline Phosphatase 99 U/L (45-117); Anion Gap 8 (5-15); BUN 14 mg/dL (7-18); BUN/Creat Ratio 13.3 RATIO (10-20); Calcium,Total 9.1 mg/dL (8.5-10.1); Chloride 100 mmol/L (98-107); Cholesterol 134 mg/dL (200); Creatinine, Serum 1.05 mg/dL (0.55-1.02); EST Glomerular Filtration Rate 56 mL/min (>60); Est Glom Filt Rate - Afr Amer 68 mL/min (>60); Globulin 3.8 g/dL (2.2-4.2); Glucose 348 mg/dL (74-106); Hemoglobin A1c 9.1 % (4.2-6.3); High Density Lipoprotein 49 mg/dL; Potassium 4.1 mmol/L (3.5-5.1); Protein, Total 7.2 g/dL (6.4-8.2); Sodium Level 136 mmol/L (136-145); Triglycerides 122 mg/dL; Very Low Density Lipoprotein 24 mg/dL (5-40)
== END ==
PROVIDERS: PCP Family Medicine; Referring Provider Family Medicine; Visit Provider Family Medicine
DX: E11.9 Type 2 diabetes mellitus without complications (principal); I10 Essential (primary) hypertension; E78.5 Hyperlipidemia, unspecified
CPT/HCPCS: 36415; 80053; 80061; 83036

== ENCOUNTER → 2020-02-10 | Outpatient (CLI) | payer MEDICARE, BC, SELFPAY ==
[2019-03-13 13:12] VITALS: BMI 46.6
[2020-02-03 07:54] VITALS: BMI 49.0
[2020-02-10 17:48] LABS: Anion Gap 13 (5-15); BUN 23 mg/dL (7-18); Calcium,Total 9.9 mg/dL (8.5-10.1); Chloride 92 mmol/L (98-107); Creatinine, Serum 1.15 mg/dL (0.55-1.02); EST Glomerular Filtration Rate 50 mL/min (>60); Est Glom Filt Rate - Afr Amer 61 mL/min (>60); Glucose 182 mg/dL (74-106); Potassium 2.9 mmol/L (3.5-5.1); Sodium Level 137 mmol/L (136-145)
== END | disposition home or self-care (01) ==
LOC: MTLAB 14:00
PROVIDERS: PCP Family Medicine; Referring Provider Internal Medicine Cardiovascular Disease; Visit Provider Internal Medicine Cardiovascular Disease
DX: I25.10 Atherosclerotic heart disease of native coronary artery without angina pectoris (principal); I50.9 Heart failure, unspecified
CPT/HCPCS: 36415; 80048

== ENCOUNTER → 2020-02-20 11:18 | Outpatient (CLI) | payer MEDICARE, BC, SELFPAY ==
[2019-03-13 13:12] VITALS: BMI 46.6
[2020-02-03 07:54] VITALS: BMI 49.0
[2020-02-20 16:02] LABS: Anion Gap 10 (5-15); BUN 18 mg/dL (7-18); BUN/Creat Ratio 17.8 RATIO (10-20); Calcium,Total 9.3 mg/dL (8.5-10.1); Chloride 98 mmol/L (98-107); Creatinine, Serum 1.01 mg/dL (0.55-1.02); EST Glomerular Filtration Rate 58 mL/min (>60); Est Glom Filt Rate - Afr Amer 71 mL/min (>60); Glucose 265 mg/dL (74-106); Potassium 4.1 mmol/L (3.5-5.1); Sodium Level 136 mmol/L (136-145)
== END ==
PROVIDERS: PCP Family Medicine; Referring Provider Internal Medicine Cardiovascular Disease; Visit Provider Internal Medicine Cardiovascular Disease
DX: E87.6 Hypokalemia (principal); E11.22 Type 2 diabetes mellitus with diabetic chronic kidney disease; N18.3 Chronic kidney disease, stage 3 (moderate); I50.9 Heart failure, unspecified
CPT/HCPCS: 36415; 80048

== ENCOUNTER → 2020-02-21 16:36 | Outpatient (CLI) | payer MEDICARE, BC, SELFPAY ==
[2019-03-13 13:12] VITALS: BMI 46.6
[2020-02-21 11:14] VITALS: BMI 47.2
--- NOTE | 2020-02-21 16:40 | RAD_ITS ---
STUDY: X-RAY CHEST REASON FOR EXAM: Female, 64 years old. Short of breath and slight chest pressure. TECHNIQUE: PA and lateral views of the chest. COMPARISON: 03/08/2019. 08/08/2018. FINDINGS: The lungs are clear and expanded. There is no demonstrated pleural abnormality. Normal size heart. Normal mediastinum and jud. Normal visualized pulmonary arteries. Normal visualized aortic arch and descending thoracic aorta. There is a dextroscoliosis and degenerative changes of the thoracic spine. Stable sclerotic lesion in the right proximal humerus. There is no demonstrated abnormality of the visualized soft tissue structures of the upper abdomen. RAD/Chest PA and Lateral IMPRESSION: No acute cardiopulmonary disease. No significant interval change. Electronically Signed: Milagro Arreola MD at 0:22 EDT , Service support ,
[2020-02-21 17:37] LABS: Absolute Lymphocyte Count 2.34 X10^3/uL (0.83-4.51); Absolute Neutrophil Count 7.2 X10^3/uL (2.0-7.7); Basophil# 0.05 X10^3/uL; Basophil% 0.5 % (0-1); Eosinophil# 0.11 X10^3/uL; Eosinophils% 1.1 % (0-5); Hematocrit 42.8 % (37-47); Hemoglobin 13.6 g/dL (12.0-15.0); Lymphocyte # 2.34 X10^3/ul (4.0); Lymphocyte % 22.4 % (19-41); Mean Corp Hgb Conc 31.8 g/dL (32-36); Mean Corpuscular Hgb 27.8 pg (27.0-32.0); Mean Corpuscular Volume 87.5 fL (81-99); Mean Platelet Vol. 9.2 fl (6.2-12.0); Monocyte# 0.68 X10^3/uL; Monocyte% 6.5 % (0-10); NRBC Flagged by Analyzer 0 % (0-5); Neutrophil % 68.9 % (47-70); Platelet Count 319 K/mm3 (150-450); RBC Distribution Width CV 13.7 % (11.6-14.6); RBC Distribution Width SD 43.9 fl (35.1-43.9); Red Blood Count 4.89 M/mm3 (4.2-5.4); White Blood Count 10.4 K/mm3 (4.4-11.0)
[2020-02-21 17:49] LABS: International Normalized Ratio 1.1; Partial Thromboplast Time 24.2 Seconds (24.1-36.2); Prothrombin Time (Protime)PT. 13.5 SECONDS (11.7-14.9)
== END ==
PROVIDERS: PCP Family Medicine; Referring Provider Internal Medicine Cardiovascular Disease; Visit Provider Internal Medicine Cardiovascular Disease
DX: I25.10 Atherosclerotic heart disease of native coronary artery without angina pectoris (principal); I11.0 Hypertensive heart disease with heart failure; I50.33 Acute on chronic diastolic (congestive) heart failure; E78.2 Mixed hyperlipidemia; Z95.5 Presence of coronary angioplasty implant and graft
CPT/HCPCS: 36415; 71046; 85025; 85610; 85730

== ENCOUNTER 2020-03-03 07:55 | Day surgery (SDC) | payer MEDICARE, BC, SELFPAY ==
[2019-03-13 13:12] VITALS: BMI 46.6
[2020-02-21 11:14] VITALS: BMI 47.2
--- NOTE | 2020-02-21 12:25 | HP_ITS ---
HPI HPI History of Present Illness Surgical H&P: Yes Details: This is a 64-year-old female that is here today for a cardiovascular follow-up for her history of CAD and PCI. The patient states that she has been noticing, similar to last year prior to her cardiac catheterization, the sensation of chest discomfort. She describes it as a toothache-like sensation that occurs in her central chest area. She also notes that she is more short of breath and dyspneic. She has had more issues with her fluid balance being positive. She has not described any near-syncope or syncope. She states her diuretics had been adjusted earlier this year. Her dose have been decreased. She has had her dose increased. She states she has lost approximately 5 pounds of what she believes to be is fluid weight. She notes that is somewhat better for her although she continues with her chest discomfort and her shortness of breath and dyspnea. She did have an ECG in the office today. She was noted to be in sinus rhythm with low voltage QRS in the limb leads and poor R wave progression. Intake Vital Signs 02/21/20 Height 5 ft 2 in 02/21/20 Weight: 258 lb 1 oz 02/21/20 BP 102/58 L 02/21/20 Blood Pressure Location Rt brachial 02/21/20 Position Sitting 02/21/20 Respiration 16 02/21/20 Pulse 84 02/21/20 Pulse Source Auscultation 02/21/20 BMI 49.0 Intake Visit Reasons: COMING IN/INCREASED WEIGHT GAIN. Registry Rn Required: No Accompanied by: self Allergies Fish Containing Products Allergy (Verified 02/21/20 11:14) Hives fluconazole [From Diflucan] Allergy (Verified 02/21/20 11:14) Hives iodine Allergy (Verified 02/21/20 11:14) Unknown orange Allergy (Verified 02/21/20 11:14) Hives Penicillins Allergy (Verified 02/21/20 11:14) Unknown pioglitazone [From Actos] Allergy (Verified 02/21/20 11:14) Hives povidone-iodine [From Betadine] Allergy (Verified 02/21/20 11:14) Unknown soap [From Betadine] Allergy (Verified 02/21/20 11:14) Unknown Sulfa (Sulfonamide Antibiotics) Allergy (Verified 02/21/20 11:14) Unknown sulfamethoxazole [From Bactrim] Allergy (Verified 02/21/20 11:14) Unknown tetanus and diphtheria toxoids Allergy (Verified 02/21/20 11:14) Hives trimethoprim [From Bactrim] Allergy (Verified 02/21/20 11:14) Unknown amlodipine Adverse Reaction (Severe, Verified 02/21/20 11:14) Swelling Medications epinephrine 0.3 mg/0.3 mL injection, auto-injector 0.3 mg IM ONCE 10/30/17 [History Confirmed 02/21/20] rosuvastatin 20 mg tablet 20 mg PO QDAY 11/22/17 [History Confirmed 02/21/20] blood sugar diagnostic See Dose Instructions .ROUTE .MEDSUPPLY #550 ea 03/05/18 [Rx Confirmed 02/21/20] hydrochlorothiazide 25 mg tablet 12.5 mg PO DAILY tab 02/12/19 [History Confirmed 02/21/20] Aspirin E.C. [Ecotrin] 81 mg PO DAILY@0800 tab 03/14/19 [Rx Confirmed 02/21/20] Nitroglycerin (INPATIENT USE) [Nitrostat] 0.4 mg SUBLINGUAL Q5M PRN tab.subl 03/14/19 [Rx Confirmed 02/21/20] metoprolol tartrate 25 mg tablet 25 mg PO BID #180 tab 05/09/19 [Rx Confirmed 02/21/20] levothyroxine 150 mcg tablet 150 mcg PO DAILY 06/21/19 [History Confirmed 02/21/20] famotidine 20 mg tablet 20 mg PO BID tab 09/09/19 [History Confirmed 02/21/20] spironolactone 25 mg tablet 25 mg PO DAILY tab 09/09/19 [History Confirmed 02/21/20] flash glucose sensor See Rx Instructions .ROUTE .MEDSUPPLY #1 ea 11/25/19 [History Confirmed 02/21/20] flash glucose sensor See Rx Instructions .ROUTE .MEDSUPPLY #2 ea 11/25/19 [Rx Confirmed 02/21/20] insulin syringe-needle U-100 0.3 mL 31 gauge x 01/17 See Rx Instructions .ROUTE .MEDSUPPLY #300 ea 11/25/19 [Rx Confirmed 02/21/20] insulin regular hum U-500 conc 500 unit/mL subcutaneous soln See Rx Instructions SC TID #20 ml 01/29/20 [Rx Confirmed 02/21/20] clobetasol 0.05 % topical cream 1 applic TOPICAL DAILY 02/21/20 [History Confirmed 02/21/20] clopidogrel 75 mg tablet 75 mg PO DAILY #90 tab 02/21/20 [Rx Confirmed 02/21/20] diphenhydramine HCl 25 mg tablet 25 mg PO .COMPLEX #4 tab 02/21/20 [Rx Confirmed 02/21/20] furosemide 40 mg tablet 40 mg PO BID #60 tab 02/21/20 [Rx Confirmed 02/21/20] isosorbide mononitrate 30 mg tablet,extended release 24 hr 30 mg PO DAILY #30 tab 02/21/20 [Rx Confirmed 02/21/20] nystatin 100,000 unit/gram topical cream 1 applic TOPICAL DAILY 02/21/20 [History Confirmed 02/21/20] potassium chloride 20 mEq tablet,extended release 20 meq PO BID 02/21/20 [History Confirmed 02/21/20] prednisone 20 mg tablet 20 mg PO .COMPLEX #9 tab 02/21/20 [Rx Confirmed 02/21/20] [facility] Medical History Pure hypercholesterolemia (Chronic) Abnormal stress test (Resolved) Chest pain (Resolved) Essential hypertension (Chronic) Obesity (Chronic) Hypothyroidism (Chronic) Type II diabetes mellitus (Chronic) Kidney stones (Acute) Arthritis (Chronic) Back problem (Chronic) Heart murmur (Chronic) Chapman's palsy (Resolved) Bone fracture (Resolved) Hives (Resolved) Recurrent UTI (Resolved) Anemia (Inactive) Asthma (Inactive) HTN (hypertension) (Inactive) Thyroid disease (Inactive) Surgical History Stented coronary artery (Chronic 03/13/19) Cataract extraction status, left eye (Acute) Cataract extraction status, right eye (Resolved) H/O arthroscopic knee surgery (Resolved) H/O colonoscopy (Resolved) H/O sinus surgery (Resolved) H/O thyroidectomy (Resolved) History of left heart catheterization (LHC) (Resolved) History of tonsillectomy (Resolved) History of total abdominal hysterectomy (Resolved) Hx of cholecystectomy (Resolved) H/O right heart catheterization (Inactive) Family History Mother Diabetes Heart disease Hypertension High cholesterol Kidney disease Cancer Father Diabetes Hypertension High cholesterol Cancer Sister Cancer Social History (Updated 02/21/20 @ 12:[address] Harry Hudson MD) Smoking Status: Never smoker second hand exposure: No alcohol intake: never substance use type: does not use caffeine: Yes Type: carbonated beverages Number of servings: 1, tea Number of servings: 1 ROS Const Const: Positive for fatigue; negative for weakness, frequent falls, excessive sweating, weight gain or weight loss Eyes Eyes: Negative for transient loss of vision, blurry vision or change in vision ENT ENT: Negative for dizziness or balance problems Cardio Chest Pain: Yes (intermittent) Character: other (aching) Location: mid sternal Relieving: other (nitro x2 on Monday and x1 Monday) Palpitations: Yes (occasional; daily) feels like its: fast Edema: Bilateral (slight, by end of day increased) Muscle aches with walking: None Resp Respiratory: Positive for SOB with activity (increased), SOB at rest (occasional), Cough (dry in the evening) and other (wears BIPAP at night) GI GI: Negative vomiting or vomiting blood/hematemesis : Negative for hematuria Musc Musc: Negative for muscle aches/ myalgia, muscle weakness, joint pain or balance problems Skin Skin: Negative non-healing lesions or rash Neuro Neuro: Negative for dizziness, lightheadedness, orthostatic symptoms, frequent falls, weakness or blurry vision [place] Hematologic/Lymphatic: Negative for easy bleeding Endo Endo: Positive for fatigue; negative for excessive sweating Psych Psych: Negative for anxiety or depression Allergy Allergy/Immunology: Negative for hives, Negative for rash Cardiology Exam Const Appearance: cooperative, healthy appearing, comfortable, no acute distress, well developed and well groomed Nutritional Appearance: obese Orientation: alert, awake and oriented x3 Head Head: normal to inspection, normocephalic and atraumatic Ears: hearing grossly normal bilaterally Nose: external nose normal Face and Sinus: face symmetric Eyes Eyelids: eyelids normal Conjunctivae: conjunctivae normal Pupils: PERRL EOM: EOM intact bilaterally Neck Neck: normal visual inspection and full ROM Carotids: normal carotid upstroke Chest Chest inspection: normal inspection of the chest, symmetric chest movement and normal respiratory effort Auscultation: Bilateral: Clear to Auscultation Cardio Palpation: normal PMI Rate: regular rate Rhythm: regular rhythm Heart sounds: S1 normal and S2 normal GI GI: normal to inspection, soft, bowel sounds present and obese Neuro General: alert, awake, oriented x3 and moves all extremities Skin Skin: no rashes or lesions noted Extremities Pulses: Normal: Right Radial Pulse, Left Radial Pulse Lower Extremity Edema: +1: Bilateral Psych Psychological: normal affect Assessment & Plan 1. Atherosclerosis of [place] coronary artery of [place] heart without angina pectoris I25.10 Plan At the present time there are concerns that her symptoms are related to angina pectoris. She does have a history of CAD and is undergone PCI in the past. The results of her studies are as noted. At the present time she will be placed on additional medical therapy with isosorbide mononitrate at 30 mg p.o. daily. However based upon her symptoms, which can occur at rest with no exertion, associated with her shortness of breath and dyspnea and concerns of her volume overload, it was felt reasonable that she have further evaluation. This will include a transthoracic echocardiogram to reassess her left ventricular wall motion systolic function. It was also include reevaluation in the cardiac catheterization laboratory. Depending upon the findings she may require additional medical therapy as well as revascularization therapy. Orders Orders: 12 Lead EKG performed by BMS Today Left Heart Cath/COR/LV Percut Today Partial Thromboplast Time Today Prothrombin Time w/INR Today CBC W/Diff, Automated Today Chest PA and Lateral Today 2. Stented coronary artery Z95.5 Successful PTCA/ALFONSO to distal/apical LAD with a 2.25 x 12 Promus Synergy, followed immediately upstream with a 2.25 x 8 Promus Synergy d/t retrograde plaque shifting; 75%-->0%, no dissection. Pt had identical CP with balloon and stent deployment. Successful PTCA/ALFONSO mid LCX with a 2.5 x 20 Promus Synergy; 75%-->0%, no dissection. Pt had again similar anginal symptoms as she did at home with this lesion as well. Complete revascularization recommended given pt's abnl stress test, dyspnea on exertion, and difficulty evaluating pt due to body habitus. Plan She did undergo PCI as noted above. Her PCI report is noted. At the moment based upon a combination of her symptoms and objective findings she will undergo repeat evaluation in the cardiac catheterization laboratory. Orders Orders: 12 Lead EKG performed by BMS Today Left Heart Cath/COR/LV Percut Today Partial Thromboplast Time Today Prothrombin Time w/INR Today CBC W/Diff, Automated Today Chest PA and Lateral Today 3. Acute on chronic diastolic congestive heart failure I50.33 Plan She has had symptoms concerning for acute on chronic diastolic mediated CHF. The present time she will continue medical therapy. She will undergo reevaluation of her left ventricular wall motion systolic function with a transthoracic echocardiogram. Also based upon this change in her clinical status she will be reassessed in the cardiac catheterization laboratory as well for progression of disease that would be contributing to the symptoms and/or objective findings. Orders Orders: Left Heart Cath/COR/LV Percut Today Partial Thromboplast Time Today Prothrombin Time w/INR Today CBC W/Diff, Automated Today Chest PA and Lateral Today Echo Complete Today 4. Mixed hyperlipidemia E78.2 Plan She will continue risk factor evaluation and care. Orders Orders: Left Heart Cath/COR/LV Percut Today Partial Thromboplast Time Today Prothrombin Time w/INR Today CBC W/Diff, Automated Today Chest PA and Lateral Today 5. Benign essential HTN I10 Plan She will continue her medical management. Orders Orders: Left Heart Cath/COR/LV Percut Today Partial Thromboplast Time Today Prothrombin Time w/INR Today CBC W/Diff, Automated Today Chest PA and Lateral Today Plan Detail Other Orders Orders: 12 Lead EKG performed by BMS Today R07.9 Other Medications New: isosorbide mononitrate ER 30 mg PO DAILY 30 tabs 3RF furosemide 40 mg PO BID 60 tabs 3RF diphenhydramine HCl (Benadryl Allergy) 25 mg PO take 2 tabs at bedtime the day prior to procedure and take 2 tabs the morning of procedure; 4 tabs 0RF prednisone 20 mg PO take 3 tabs at noon and at bedtime day prior to procedure and take 3 tabs the morning of procedure; 9 tabs 0RF Refilled: clopidogrel 75 mg PO DAILY 90 tabs 3RF Additional Comments The above was discussed with her. The cardiac catheterization procedure with respect to risks and benefits were discussed with her. She was agreeable to this approach. Thank you for allowing me to participate in the care of your patient. Please don't hesitate to call if any issues arise. This note was generated using a voice recognition system and there may be incorrect words, spelling or punctuation that were not noted when reviewing the office note prior to saving. Follow Up 3 Months (PFM) Coding Level of Care Code Off vis,est,level 5 Diagnoses Atherosclerosis of [place] coronary artery of [place] heart without angina pectoris I25.10 ??[place] vs. transplanted heart: [place] heart Stented coronary artery Z95.5 Acute on chronic diastolic congestive heart failure I50.33 ??Heart failure type: diastolic ??Heart failure chronicity: acute on chronic Mixed hyperlipidemia E78.2 Benign essential HTN I10 Coding Level of Care Code Off vis,est,level 5 Diagnoses Atherosclerosis of [place] coronary artery of [place] heart without angina pectoris I25.10 ??[place] vs. transplanted heart: [place] heart Stented coronary artery Z95.5 Acute on chronic diastolic congestive heart failure I50.33 ??Heart failure type: diastolic ??Heart failure chronicity: acute on chronic Mixed hyperlipidemia E78.2 Benign essential HTN I10 Supplemental Info Supplemental Information Echocardiogram in 12/25/2018: Left ventricular systolic function is normal. The estimated ejection fraction is 60 %. The left atrium is mildly enlarged. Mild focal mitral valve calcification of the anterior leaflet. The mitral valve chordae are thickened and/or calcified. Trivial mitral valve insufficiency. Trivial pulmonic valve insufficiency identified. Unable to estimate RV systolic pressure/pulmonary artery pressure due to technically difficult study. Diastolic function is indeterminate. Stress test 03/05/2019: 1. Rest and stress SPECT currently nuclear imaging demonstrate a small area of subtle diminished tracer uptake in the distal anterior/anterior apical segments at stress potentially compatible with shifting soft tissue attenuation/artifact, however, an element of stress-induced myocardial ischemia cannot necessarily be excluded. 2. The gated Cardiolite study reports an LVEF of 77 %. Cardiac catheterization: 03-13-19 CONCLUSIONS Elevated Left Ventricular End Diastolic Pressure Normal LV size, wall motion,and systolic function LVEF: by LV gram 60 % [place] Multivessel CAD RECOMMENDATIONS Risk factor modification Medical therapy Referred for immediate PCI CORONARY ANGIOGRAPHY DOMINANCE: Right Dominant LEFT HEART ASSESSMENT Left Ventricular Ejection Fraction: by LV Gram 60 % Normal LV wall motion Elevated Left Ventricular End Diastolic Pressure LVEDP: 31 mmHg LEFT MAIN: Angiographically normal LEFT ANTERIOR DESCENDING ARTERY: PROX LAD: Smooth: 10 - 25 % Stenosis DISTAL LAD: 85 % Stenosis CIRCUMFLEX ARTERY: OM 1: Proximal - Smooth: 10 - 25 % Stenosis RIGHT CORONARY ARTERY: Angiographically normal VALVE FINDINGS: Normal Aortic Valve function Normal Mitral Valve function AORTIC ROOT: Angiographically normal Cardiac intervention: 03-13-19 CONCLUSIONS Successful PTCA/ALFONSO to distal/apical LAD with a 2.25 x 12 Promus Synergy, followed immediately upstream with a 2.25 x 8 Promus Synergy d/t retrograde plaque shifting; 75%-->0%, no dissection. Pt had identical CP with balloon and stent deployment. Successful PTCA/ALFONSO mid LCX with a 2.5 x 20 Promus Synergy; 75%-->0%, no dissection. Pt had again similar anginal symptoms as she did at home with this lesion as well. Complete revascularization recommended given pt's abnl stress test, dyspnea on exertion, and difficulty evaluating pt due to body habitus. Labs LDL Cholesterol 61 mg/dL (0-130) 12/19/19 HDL Cholesterol 49 mg/dL (40-) 12/19/19 Triglycerides 122 mg/dL (-199) 12/19/19 VLDL Cholesterol 24 mg/dL (5-40) 12/19/19 Diagnostics Electrocardiogram 02/21/20 Echocardiogram 12/25/18 Stress Test Nuclear Medicine 03/05/19 Stress Test 03/05/19 Cardiac Catheterization 03/13/19 Chest X-Ray 03/08/19 Pulmonary Pulmonary Function Test 05/01/19 02/21/20 1225 <Electronically signed by Harry read MD> Date _ Harry Hudson MD Procedure Criteria Procedure Type: Elective COVID Risk Discussion: The surgeon/proceduralist and patient have discussed in detail the risk of exposure to and/or potential harm posed by the COVID-19 virus with having a surgery/procedure at this time versus the risk of delaying the surgery/procedure. It is not possible to know either the risk of delaying the surgery or procedure or chance of getting an infection with perfect accuracy, but a joint decision was made between the patient and the surgeon/proceduralist to proceed at this time with the scheduled surgery/procedure as indicated on the consent form. Addendum: Date: 03-03-2020 I have re-examined the patient. There are no clinical changes since date of exam.
[2020-02-25 19:23] VITALS: BMI 49.0
[2020-03-02 14:40] VITALS: BMI 47.2
--- NOTE | 2020-03-03 09:59 | CL.D_ITS ---
Patient Name: DERRELL GERMAN Study Date: 03/03/2020 Performing: Harry Hudson MD Ht: 61.81 inches 157 cm : 1955 Wt: 257.94 lbs 117 kg Age: 64 Gender: female BSA: 2.13 PROCEDURE(S) PERFORMED [id number]/COR/LV CLINICAL PROFILE AND INDICATIONS Indications: Suspected CAD Heart Failure: None Stress/Imaging Stress/Image Study Performed: No Angina Classification Anginal Classification w/in 2 Weeks: CCS III CAD Presentations: Other: worsening angina pectoris CONCLUSIONS Elevated Left Ventricular End Diastolic Pressure Normal LV size, wall motion,and systolic function [place] Multivessel CAD LAD: distal stent: patent LCX: mid stent: patent RECOMMENDATIONS Risk factor modification Medical therapy DESCRIPTION OF PROCEDURE The patient arrived to the procedure lab. The risks and benefits of the procedure as well as a full d escription of our services here and current unavailability of surgical backup were fully explained to the patient and/or their significant other prior to the catheterization. The Timeout was completed, verifying the correct patient and procedure. The patient's procedural site was prepped and draped in the usual fashion. Local anesthetic was given subcutaneously to right groin region with Lidocaine 2%. Using a modified Seldinger technique, arterial access was obtained via the right femoral artery, a 4 Fr sheath was inserted Left Coronary Artery selective angiography was performed in multiple views us ing a 4 Fr. JL5 catheter. Right Coronary Artery selective angiography was then performed in multiple views using a 4 Fr. 3DRC catheter. CORONARY ANGIOGRAPHY DOMINANCE: Right Dominant LEFT HEART ASSESSMENT Left Ventricular Ejection Fraction: by LV Gram 60 % Normal LV wall motion Elevated Left Ventricular End Diastolic Pressure LVEDP: 25 mmHg LEFT MAIN: Angiographically normal LEFT ANTERIOR DESCENDING ARTERY: PROX LAD: smooth: 10 - 25 % Stenosis DISTAL LAD: Previously placed stent is patent DIAGONAL 1: Ostial - 50 % Stenosis CIRCUMFLEX ARTERY: PROX CIRC: smooth: 10 - 25 % Stenosis MID CIRC: Previously placed stent is patent RIGHT CORONARY ARTERY: Angiographically normal AORTIC ROOT: Angiographically normal COMPLICATIONS No Complications PROCEDURE MEDICATIONS Versed 1 mg IV Oxygen: 2 L/min via nasal cannula Solu-medrol 125 mg IV 03/03/2020 09:06:02 SUMMARY OF HEMODYNAMIC DATA Time AIR REST ECG 08:39:39 AO 142/74 (105) SA 09:21:52 LV 134/0, 27 09:32:50 LV 136/0, 25 09:32:57 LV 138/0, 36 09:33:42 LV 137/0, 29 09:33:49 LVp 136/0, 24 09:33:56 AOp 132/64 (95) 09:34:01 Signed By Harry Hudson MD On 03/03/2020 09:59:13 Harry Hudson MD
== END 2020-03-03 14:40 | disposition home or self-care (01) ==
LOC: CLSP 07:57
PROVIDERS: PCP Family Medicine; Referring Provider Internal Medicine Cardiovascular Disease; Visit Provider Internal Medicine Cardiovascular Disease
DX: I25.110 Atherosclerotic heart disease of native coronary artery with unstable angina pectoris (principal); I11.0 Hypertensive heart disease with heart failure; I50.33 Acute on chronic diastolic (congestive) heart failure; E11.9 Type 2 diabetes mellitus without complications; E78.2 Mixed hyperlipidemia; E03.9 Hypothyroidism, unspecified; M19.90 Unspecified osteoarthritis, unspecified site; E66.9 Obesity, unspecified; Z79.82 Long term (current) use of aspirin; Z79.4 Long term (current) use of insulin; Z79.02 Long term (current) use of antithrombotics/antiplatelets; Z79.899 Other long term (current) drug therapy; Z95.5 Presence of coronary angioplasty implant and graft
CPT/HCPCS: 93458; 99152; 99153; J7040; Q9967; C1769; C1894

== ENCOUNTER 2020-03-14 08:59 | Emergency (ER) | payer MEDICARE, BC, SELFPAY ==
[2019-03-13 13:12] VITALS: BMI 46.6
[2020-03-14 08:59] VITALS: BMI 49.0
[2020-03-14 09:01] VITALS: BP 162/82; PULSE 98; RESP 15; TEMP 36.4; O2SAT 95; BMI 46.5
[2020-03-14 09:03] VITALS: BP 162/82; PULSE 98; RESP 15; TEMP 36.4; O2SAT 95
--- NOTE | 2020-03-14 09:43 | CT_ITS ---
STUDY: CT ABDOMEN AND PELVIS WITHOUT CONTRAST REASON FOR EXAM: Female, 64 years old. URINARY SX, BACK PAIN X 2 DAYS RADIATION DOSAGE (If Supplied By Facility): CTDIvol = ( 24.06 ) mGy, DLP = ( 1208.25 ) mGycm TECHNIQUE: Transaxial images were obtained from the dome of the diaphragm to the symphysis pubis without oral contrast, and without intravenous contrast. Sagittal and coronal images were reconstructed. Individualized dose optimization techniques were used for this CT. COMPARISON: None. FINDINGS: The visualized lung bases are unremarkable. The visualized portions of the heart are within normal limits. Normal liver. There are surgical clips in the gallbladder fossa consistent with a prior cholecystectomy. Normal spleen. Normal pancreas. Normal bilateral adrenal glands. Normal right kidney. Normal left kidney. Normal visualized stomach. Normal small intestine. Normal colon. The appendix is visualized and appears normal. Normal abdominal aorta. Normal inferior vena cava. Normal retroperitoneum. Normal urinary bladder. Normal abdominal wall. Normal osseous structures. CT/Abdomen/Pelvis without Cont IMPRESSION: Normal unenhanced CT of the abdomen and pelvis. Electronically Signed: Jaime Helton MD at 11:20 EDT Tel , Service support ,
[2020-03-14 10:01] LABS: Bacteria 0 SEEN /hpf (None Seen); Mucous, Urine 0 SEEN /hpf (<or=2+); Red Blood Cells-Urine 0 SEEN /hpf (0-5); White Blood Cells 0 SEEN /hpf (0-5)
[2020-03-14 10:06] LABS: Color, Urine Yellow (Yellow); Glucose, Dipstick 1000 mg/dl (Normal); Leukocyte Esterase-Dipstick Negative /ul (Negative); Nitrite-Dipstick Negative (Negative); Occult Blood-Urine Negative /ul (Negative); Protein-Dipstick Negative (Negative); Urine Bilirubin Dipstick Negative (Negative); Urine Clarity Clear (Clear); Urine Urobilinogen Normal (Normal)
[2020-03-14 10:12] LABS: Ketone-Dipstick 150 mg/dl (Negative); Squamous Epithelial Cells - UA 0-5 SEEN /hpf (5-10)
[2020-03-14] MEDS: Ondansetron 4 MG/2 ML Vial IV (10:15)
[2020-03-14] MEDS: Morphine 4 MG/ML Syringe IV (10:15)
[2020-03-14] MEDS: 0.9% Normal Saline 1,000 ML 1000 ML IV (10:15)
[2020-03-14 10:28] LABS: Absolute Lymphocyte Count 1.23 X10^3/uL (0.83-4.51); Absolute Neutrophil Count 8.9 X10^3/uL (2.0-7.7); Basophil# 0.04 X10^3/uL; Basophil% 0.4 % (0-1); Eosinophil# 0.02 X10^3/uL; Eosinophils% 0.2 % (0-5); Hematocrit 44.1 % (37-47); Hemoglobin 14.2 g/dL (12.0-15.0); Lymphocyte # 1.23 X10^3/ul (4.0); Lymphocyte % 11.2 % (19-41); Mean Corp Hgb Conc 32.2 g/dL (32-36); Mean Corpuscular Hgb 27.9 pg (27.0-32.0); Mean Corpuscular Volume 86.6 fL (81-99); Mean Platelet Vol. 9.3 fl (6.2-12.0); Monocyte# 0.72 X10^3/uL; Monocyte% 6.5 % (0-10); NRBC Flagged by Analyzer 0 % (0-5); Neutrophil # 8.94 X10^3/uL (2.7-7.7); Neutrophil % 81.2 % (47-70); Platelet Count 250 K/mm3 (150-450); RBC Distribution Width CV 13.5 % (11.6-14.6); RBC Distribution Width SD 42.6 fl (35.1-43.9); Red Blood Count 5.09 M/mm3 (4.2-5.4)
[2020-03-14 10:46] LABS: AST(SGOT) 15 U/L (15-37); Alanine Aminotransfer ALT/SGPT 22 U/L (13-56); Albumin, Serum 3.9 g/dL (3.2-5.0); Alkaline Phosphatase 93 U/L (45-117); Anion Gap 12 (5-15); BUN 16 mg/dL (7-18); Calcium,Total 9.1 mg/dL (8.5-10.1); Chloride 89 mmol/L (98-107); Creatinine, Serum 1.33 mg/dL (0.55-1.02); EST Glomerular Filtration Rate 43 mL/min (>60); Est Glom Filt Rate - Afr Amer 51 mL/min (>60); Estimated Creatinine Clearance 31.82 ml/min; Globulin 3.8 g/dL (2.2-4.2); Glucose 412 mg/dL (74-106); Potassium 4.5 mmol/L (3.5-5.1); Protein, Total 7.7 g/dL (6.4-8.2); Sodium Level 129 mmol/L (136-145)
--- NOTE | 2020-03-14 12:19 | ED.DCSUM_ITS ---
- ER Visit Summary Date of Service: 03/14/20 Chief Complaint: Back pain and dysuria History of Present Illness: The patient is a [address] Korey Guillen. She reports she has low back pain that began yesterday. It is 9 out of 10 in severity currently and at worst. Is increased with movement or standing. Is decreased with Tylenol. She denies any radiation to her legs. No numbness, tingling, or weakness in her legs. No loss of control of her bowels. She has been able to urinate. She denies any recent trauma. No fall, MVA, or change in activity. Patient reports that she also has dysuria and frequency that began yesterday. She denies any hematuria. States that this back pain is not similar to her prior kidney stones. Patient also reports that she is been having diarrhea for the past 2 days. She reports that she had it 3 x 2 days ago and 4 times yesterday. She has not had it today. No blood in her stools or black tarry stools. She has not had any sick contacts. No recent antibiotic use. She has not been camping out of the country. No possible bad food exposure. She does drink well water, but others do at home as well and they are not ill. Physical Examination: Vitals: Stable. Afebrile. General: A&O x 3. NAD. Cardiovascular exam: Regular rate and rhythm, no murmur, rub or gallop. Respiratory exam: Clear to auscultation bilaterally. No wheezes or stridor. Abdominal exam: Soft, nontender, nondistended, normal bowel sounds. No peritoneal signs. Back: Diffuse moderate tenderness to palpation over the lumbar spine and the paraspinous musculature in the lumbar region. No point tenderness. Negative straight leg bilaterally. 5/5 DF, PF, EHL bilaterally. Normal sensation to light touch throughout. Skin: Rash consistent with Dione in the superior portion of her gluteal cleft. Extremity: No clubbing, cyanosis, or edema. Test Results: CBC shows 7 neutrophils 81 lymphocytes of 11. Chem-7 shows a sodium of 129, but this is 134 when corrected for her glucose of 412. Chloride is 89, creatinine is 1.33. LFTs are normal. UA shows ketones and glucose. Clinical Impression(s) from Imaging Studies Abdomen/Pelvis CT 03/14/20 09:43 IMPRESSION: Normal unenhanced CT of the abdomen and pelvis. Electronically Signed: Jaime Helton MD at 11:20 EDT Tel , Service support , Emergency Department Course and Treatment: Patient was treated morphine and Zofran. She is resting comfortably she has been able to ambulate about the emergency department without difficulty. She reports that she has her insulin here and has a sliding scale and has dose herself for her glucose of 412. Had not taken her insulin yet today. We had a prolonged discussion about her dysu tim. She was given a dose of Azo p.o. Treatment Plan: Patient will be discharged with Pyridium and Monistat. She is also given prescriptions for Percocet and Colace. Instructed to follow-up her primary care physician in 3 to 5 days if not improving. Return to the emergency department for any worsening symptoms. Disposition: To home in improved and stable condition. Impression: 1. Back pain. 2. Hyperglycemia with type 2 diabetes mellitus. 3. Dysuria. 4. Candidal skin rash in gluteal cleft. This note was generated with [employer] dictation software. It may contain incorrect words, spelling, and punctuation that were not noted in review of the chart prior to signing ED Disposition - Plan for ED Patient: Instructions: ED Back Pain Acute or Chronic Prescriptions: Docusate Sodium [Colace] 100 mg PO DAILY #20 cap Prescription Printed Miconazole Nitrate [Monistat 3] 1 ea VG QHS #1 kit Prescription Printed Oxycodone HCl/Acetaminophen [Percocet 5/325] 1 tab PO Q6H PRN PRN 3 Days #12 tab PRN Reason: Pain Prescription Printed Phenazopyridine HCl [Pyridium] 200 mg PO TID #10 tab Prescription Printed Referrals: Korey Guillen III, MD [Primary Care Provider] - 3-5 Days if not improving
[2020-03-14] MEDS: Phenazopyridine 95 MG Tablet 190 MG PO (12:30)
[2020-03-14 12:37] VITALS: BP 163/91; PULSE 81; RESP 16; O2SAT 97
== END 2020-03-14 12:38 | disposition home or self-care (01) ==
LOC: ED 10:25
PROVIDERS: Emergency Provider Emergency Medicine; PCP Family Medicine
DX: M54.5 Low back pain (principal); R30.0 Dysuria; R35.0 Frequency of micturition; R19.7 Diarrhea, unspecified; E11.65 Type 2 diabetes mellitus with hyperglycemia; B37.2 Candidiasis of skin and nail; Z79.02 Long term (current) use of antithrombotics/antiplatelets; Z79.82 Long term (current) use of aspirin; Z79.4 Long term (current) use of insulin; Z79.899 Other long term (current) drug therapy
CPT/HCPCS: 74176; 80053; 81001; 85025; 96361; 96374; 96375; 99284; J7030; A4216; J2405

== ENCOUNTER → 2020-03-17 10:59 | Outpatient (CLI) | payer MEDICARE, BC, SELFPAY ==
[2019-03-13 13:12] VITALS: BMI 46.6
[2020-02-25 19:23] VITALS: BMI 49.0
[2020-03-14 09:01] VITALS: BMI 46.5
--- NOTE | 2020-03-17 11:00 | ECHOCS_ITS ---
Reason For Study: CHF Procedure This was a 2D Doppler, Color Flow transthoracic echocardiogram. The study was technically difficult. Contrast injection was performed. Exam performed in department. Left Ventricle Left ventricular systolic function is normal. The estimated ejection fraction is 65 %. Diastolic function is indeterminate. No regional wall motion abnormalities noted. Right Ventricle Normal RV size. Normal systolic function. Atria The left atrium is mildly enlarged. Normal right atrium. No doppler evidence for ASD. Mitral Valve There is mild mitral annular calcification. Mild focal mitral valve thickening. Trivial mitral valve insufficiency. Tricuspid Valve Normal tricuspid valve. Trivial tricuspid valve insufficiency. Unable to estimate RV systolic pressure/pulmonary artery pressure due to technically difficult study. Aortic Valve Trisinus/trileaflet aortic valve. Mild focal aortic valve thickening. Pulmonic Valve The pulmonic valve is not well visualized. Great Vessels Normal sized aortic root. Pericardium/Pleural No pericardial effusion. Medication 22 gauge I.V. with prn adaptor inserted into left arm. Diluted definity 1.5ml given slow IV push to enhance endocardial definition. MMode/2D Measurements & Calculations RVDd: 2.4 cm Ao root diam: 2.7 cm LAV(MOD-bp): 32.9 ml LAV(MOD-bp) Indexed: 15.8 ml/m2 LAV(MOD-sp2): 35.2 ml LAV(MOD-sp4): 29.4 ml LA dimension(2D): 3.6 cm LA A4 area: 13.0 cm2 RA A4 area: 9.1 cm2 Doppler Measurements & Calculations MV E max jonathan: 63.8 cm/sec Lat Peak E' Jonathan: 7.3 cm/sec Med Peak E' Jonathan: 7.1 cm/sec MV A max jonathan: 101.2 cm/sec E/E' lat: 8.7 E/E' med: 9.0 MV E/A: 0.63 Ao V2 max: 140.4 cm/sec LV V1 max: 99.7 cm/sec PA V2 max: 102.5 cm/sec Ao max P.9 mmHg LV V1 max P.0 mmHg Interpretation Summary The study was technically difficult. Contrast injection was performed. Left ventricular systolic function is normal. The estimated ejection fraction is 65 %. The left atrium is mildly enlarged. There is mild mitral annular calcification. Mild focal mitral valve thickening. Trivial mitral valve insufficiency. Trivial tricuspid valve insufficiency. Mild focal aortic valve thickening. Unable to estimate RV systolic pressure/pulmonary artery pressure due to technically difficult study. Diastolic function is indeterminate. Ordering Physician: Harry Hudson Referring Physician: POLLO Guillen M.D. Performed By: Shital Minor RDCS
== END ==
PROVIDERS: PCP Family Medicine; Referring Provider Internal Medicine Cardiovascular Disease; Visit Provider Internal Medicine Cardiovascular Disease
DX: I50.33 Acute on chronic diastolic (congestive) heart failure (principal)
CPT/HCPCS: 93306; Q9957; A4216; C8929

== ENCOUNTER → 2020-07-01 09:49 | Outpatient (CLI) | payer MEDICARE, BC, SELFPAY ==
[2019-03-13 13:12] VITALS: BMI 46.6
[2020-06-02 10:43] VITALS: BMI 46.8
--- NOTE | 2020-07-01 09:53 | BI_ITS ---
MAMMOGRAPHY - BILATERAL SCREENING REASON FOR EXAM: Female, 64 years old. Routine annual screening examination. PERTINENT HISTORY: Non-contributory. TECHNIQUE: Digital bilateral breast jayne (3D mammographic acquisition) in the CC and MLO projections. 2-D mediolateral oblique (MLO) and craniocaudad (CC) views of both breasts were obtained. CAD: Full Field Digital Mammography with Computer Added Detection was performed. COMPARISON: Comparison is made with prior examination dated 04/30/2019 and 12/11/2017. FINDINGS: Breast Composition: The breasts are almost entirely fatty. There are no dominant masses or suspicious calcifications. Stable 5.3 mm calcified nodule in the superior lateral retroareolar region of the right breast. No other significant abnormalities are identified. There has been no significant change since the prior study. BI/SCREEN MAMM (CAD) W/JAYNE BILAT IMPRESSION: Stable bilateral screening mammogram. Yearly follow-up mammogram recommended. (A) ASSESSMENT CATEGORY: BIRADS Category 2: Benign. A letter regarding these results will be sent to the patient by the facility within 30 days. Approximately 10% of breast cancers are not detected by mammography. A normal mammogram should not delay biopsy of a clinically suspicious abnormality. [id number] Electronically Signed: Cliff Horowitz, at 11:06 EDT , Service support ,
--- NOTE | 2020-07-01 09:55 | BD_ITS ---
STUDY: DUAL ENERGY X-RAY ABSORPTIOMETRY / DXA REASON FOR EXAM: Female, 64 years old. 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 COMPARISON: None. FINDINGS: Lumbar Spine (L1-L4): g/cm2 (1.140) / T-score (-0.2) / Z-score (1.3) Findings are suggestive of normal bone density with a low fracture risk. Left Femur Total: g/cm2 (0.910) / T-score (-0.8) / Z-score (0.4) Left Femoral Neck: g/cm2 (0.655) / T-score (-2.8) / Z-score (-1.3) Right Femur Total: g/cm2 (0.892) / T-score (-0.9) / Z-score (0.3) Right Femoral Neck: g/cm2 (0.720) / T-score (-2.3) / Z-score (0.8) BD/Dexa Bone Density Study IMPRESSION: The patient is considered osteoporotic as outlined below according to World Rony Organization (WHO) criteria with a high fracture risk. Reference Information: The T-score is the number of standard deviations above or below the standard which is normal for young adults at their peak bone mineral density. The World Health Organization (WHO) interprets the T-scores as follows: Above -1 Normal bone density Between -1 and -2.5 Osteopenia Equal to / or below -2.5 Osteoporosis As a practical clinical guideline, osteopenia may be graded as follows: Mild -1 through -1.5 Moderate -1.6 through -2.0 Severe -2.1 through -2.4 The Z-score is the number of standard deviations above or below age-matched controls. A Z-score of less than -1.5 would be considered abnormal. References: 1. NIH Osteoporosis and Related Bone Diseases www osteo.org 2. International Society for Clinical Densitometry www iscd.org 3. National Osteoporosis Foundation www nof.org Electronically Signed: Cliff Horowitz, at 15:32 EDT , Service support ,
== END ==
PROVIDERS: PCP Family Medicine; Referring Provider Family Medicine; Visit Provider Family Medicine
DX: Z12.31 Encounter for screening mammogram for malignant neoplasm of breast (principal); M85.80 Other specified disorders of bone density and structure, unspecified site; Z78.0 Asymptomatic menopausal state; E11.9 Type 2 diabetes mellitus without complications
CPT/HCPCS: 77063; 77067; 77080

== ENCOUNTER 2020-08-12 13:30 | Outpatient (RCR) | payer MEDICARE, BC, SELFPAY ==
[2019-03-13 13:12] VITALS: BMI 46.6
--- NOTE | 2020-04-10 11:35 | HP.PTEVAL ---
Patient's Visit Information DERRELL GERMAN is a 64 year old F referred to Physical Therapy by Dr. Rebecca Lozano DO with a diagnosis of LUMBAR RADICULOPATHY. Date of Evaluation: 04/10/20 Physical Therapist: Stevenson Chi, PT, Cert MDT, OCS - Visit Plan Frequency: 2x /Week Duration: 4 Weeks Plan: PT INTERVENTIONS DLS,POSTURAL EX'S,LE STRENGTHENING ESPECIALLY HIP ,MODLATIES ASE NEED - Subjective This 64 y/o female presnets to physical therapy with lumbar radiculopathy . Patient has had lumbar pain and right hip. Location right L-S pain with symptoms radiating to anterior thigh. Patient has h/o HNP lumbar spine lifting patient . Aggraveting factors standing ,extended walk ,elevation from chair,siiting. Alleviating factors rest and MEDS. Pain at worse 10/10 when get spasms.Denies parathesia/tingling. Bowel/bladder -.Coughing/sneezing-. Patient has had PT but not for lumbar. Sleeping better with MEDS. Patient symptoms affects housework tasks ,ADLS' and function. Patient symptoms affects QOL.Patient has which made pain worse. Patient does have FWW and cane. SOCIAL: . VOCATION: retired - Pain Right Back Pain Intensity (Out of 10): 8 Pain Intensity Range: 10 - Objective POSTURE: mild foward posture trunk elevated left side pelvis ,knne valgus. LEG LENGTH: LEFT 1/2 shorter. GAIT: recipocal pattern antalgic gat right side. NEURO: denies parathesia/tingling,reflexes L3-4,L4-5.L5-S1 1/2. PALAPTION: tender right L-S ,right anterior thigh groin. PROM HIP: excessive ER,IR 25 degrees,hip flexion 100. MMT: hip flexon R 3/5,L 3+/5,hip abd 3-/5 right,left 3+/5,quads/hams 4-/5,ankle 4/5. LUMBAR ROM: flexion WFL ,extension mod loss pain,side glids min loss. FLEXABLITY: hams min tight - Special Tests L/S Slump test left side: Negative L/S Slump test right side: Negative L/S Left Straight Leg Raise: Negative L/S Right Straight Leg Raise: Negative Lumbar Standing: Flexion - Mechanical Response: No effect Lumbar Standing: Flexion - Symptoms During Testing: No effect Lumbar Standing: Flexion - Symptoms After Testing: No effect Lumbar Standing: Extension - Mechanical Response: No effect Lumbar Standing: Extension - Symptoms During Testing: Increases Lumbar Standing: Extension - Symptoms After Testing: Worse R Hip Scour: Positive - Goals Goal 1:: Patient to be I with HEP. Goal Time Frame: 4-6 Weeks Goal 2:: Patient to decrease hip and lumbat pain by 50% or > to improve function. Goal Time Frame: 4-6 Weeks Goal 3:: Patient to increase strength of quad/hams 4/5 and hip 3+/5 to improve gait. Goal Time Frame: 2-4 Weeks Goal 4:: Patient to improve lumbar ROM for function of recovery Goal Time Frame: 4-6 Weeks Goal 5:: Patient to improve back owestry score by 5 points or > to improve QOL. Goal Time Frame: 4-6 Weeks - Rehabilitation Potential Physical Therapy Diagnosis: This patient has lumbar pain along with some isolated hip groin pain with + scouring test ,left leg shorter ,weakness of hips,poor lumbar extension,antalgic gait right with pain thus benifit from skilled PT Rehabilitation Potential: Good - Anticipated Interventions Patient/Client Instruction: Educate patient on: Condition, Plan of Care For the Purpose of:: To decrease pain, To increase ROM, To improve muscle performance and motor function, To improve ability to perform ADL's, To increase tolerance to activity/condition/position, To improve ability of physical actions for home/community/work/leisure, To improve health of tissue, To decrease soft tissue restriction, To reduce risk of recurrence, To improve ability to perform tasks related to life management Therapeutic Exercise to Include: Strength training, Endurance training, Postural training, Flexibilty training, In an aquatic setting, Active ROM, Dynamic Lumbar Stabilization Comment: INTIALLLY LAND BASED EX'S For the Purpose of:: To decrease pain, To decrease swelling/inflammation, To improve muscle performance and motor function, To improve ability to perform ADL's, To increase tolerance to activity/condition/position, To improve ability of physical actions for home/community/work/leisure, To improve health of tissue, To decrease soft tissue restriction, To increase flexibility/ROM, To improve ability to perform tasks related to life management TENS: Yes IF ES: Yes Cryotherapy (ice pack, ice massage): Yes Thermo therapy (hot pack): Yes Ultrasound (thermal/non thermal): Yes Thank you for the opportunity to evaluate your patient. For Medicare and Medicare HMO plans, please review the plan of care and approve it. It will need to be FAXED BACK to us at [phone] for Medicare purposes. For Medicare only, by signing this I certify the plan of care. Please let me know if there are questions or concerns regarding this plan of care. Physician Signature: Date:
--- NOTE | 2020-05-21 14:54 | HP.PTREVAL ---
Dr. Korey Guillen III, MD, It has been my pleasure to treat DERRELL GERMAN over the last 10 visits for LUMBAR RADICULOPATHY. Please see the progress note below for an update on the physical therapy plan of care! Subjective: Patient reports alot better walking better. Core needs to get stronger. [place] better Objective/Function: POSTURE: mild foward posture. GAIT: reciprocal pattern lateral sway mild antalgic gait. NEURO: intcat. MMT: quads/hams 4-/5,hip flexion 3+/5,ankle 4/5. LUMBAR ROM: flexion WFL extension min loss Plan Plan: CONT POC 2XWEEK FOR 3WEEKS. PT INTERVENTIONS DLS,POSTURAL EX'S,LE STRENGTHENING ESPECIALLY HIP ,MODLATIES ASE NEED Goals Goal 1:: Patient to be I with HEP. Goal Time Frame: 4-6 Weeks Goal Progress: Goal Met Goal 2:: Patient to decrease hip and lumbat pain by 70% or > to improve function. Goal Time Frame: 4-6 Weeks Goal Progress: Progressing Goal 3:: Patient to increase strength of quad/hams 4/5 and hip 3+/5 to improve gait. Goal Time Frame: 2-4 Weeks Goal Progress: Progressing Goal 4:: Patient to improve lumbar ROM for function of recovery Goal Time Frame: 4-6 Weeks Goal Progress: Progressing Goal 5:: Patient to improve back owestry score by 5 points or > to improve QOL. Goal Time Frame: 4-6 Weeks Goal Progress: Goal Met Anticipated Interventions Patient/Client Instruction: Educate patient on: Condition, Plan of Care For the Purpose of:: To decrease pain, To increase ROM, To improve muscle performance and motor function, To improve ability to perform ADL's, To increase tolerance to activity/condition/position, To improve ability of physical actions for home/community/work/leisure, To improve health of tissue, To decrease soft tissue restriction, To reduce risk of recurrence, To improve ability to perform tasks related to life management Therapeutic Exercise to Include: Strength training, Endurance training, Postural training, Flexibilty training, In an aquatic setting, Active ROM, Dynamic Lumbar Stabilization Comment: INTIALLLY LAND BASED EX'S For the Purpose of:: To decrease pain, To decrease swelling/inflammation, To improve muscle performance and motor function, To improve ability to perform ADL's, To increase tolerance to activity/condition/position, To improve ability of physical actions for home/community/work/leisure, To improve health of tissue, To decrease soft tissue restriction, To increase flexibility/ROM, To improve ability to perform tasks related to life management TENS: Yes IF ES: Yes Cryotherapy (ice pack, ice massage): Yes Thermo therapy (hot pack): Yes Ultrasound (thermal/non thermal): Yes Please do not hesitate to contact me at [phone] by phone or if you have questions or concerns regarding this new plan of care! Sincerely, Stevenson Chi, PT, Cert MDT, OCS
--- NOTE | 2020-06-24 16:30 | HP.PTEVAL2_ITS ---
Patient's Visit Information DERRELL GERMAN is a 64 year old F referred to Physical Therapy by Dr. Korey Guillen III, MD with a diagnosis of UNILATERAL PRIMARY OSTEOARTHRITIS ,RIGHT AND LEFT KNEE. Date of Evaluation: 06/24/20 Physical Therapist: Stevenson Chi, PT, Cert MDT, OCS - Visit Plan Frequency: 2x /Week Duration: 4 Weeks Plan: PT INTERVENTIONS ROM KNEE, STRENGTHENING QUAD/HAMS/HIP ,MODLALITIES ,FUNCTIONAL STRENGTHENING - Subjective Subjective: This 64 y/o female presents to physical therapy with right and left left pain.Patient has had knee pain many years and left > right. Patient has h/o synvix injection x2 2016 .Most recently seen PA at [facility]. Patient had cortizone injection Jul 14 . Patient located grossly anterior knee popps and clicks left and right more pain medial side. Unable to squat /kneel. Difficulty with steps with one step at a time. Aggraveting factors extended walking and standing affects ADL's. Patient denies parathesia/tingling. Patient has pain elvation from chair with difficulty L>R. 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 Patient pain affects sleeping. Patient on ibuprofin. Patient pain affects ADL's and housework tasks . Patient pain affects QOL. SOCAIL: . VOCATION: retired - Pain Left Knee Intensity: 8 Pain Intensity Range: 10 Right Intensity: 2 Pain Intensity Range: 10 - Objective Objective: POSTURE: mild foward posture ,knee valgus. GAIT: antalgic gait L> R with lateral sway. NEURO: intact. PALPATION: tenfer medial joint line. AROM: R : 0-112 degrees supine knee flexion ,L :0-120 supine knee flexion crepitis. MMT: quads/hams 4-/5,hip flexion 4-/5,abd 3+/5,ankle 4/5. STAIRS: one step at a time with rail - Goals Goal 1:: I with HEP. Goal Time Frame: 4-6 Weeks Goal 2:: Patient to improve quality of gait with less antalgic gait pattern. Goal Time Frame: 4-6 Weeks Goal 3:: Decrease knee pain by 50% or > to improve function with gait. Goal Time Frame: 4-6 Weeks Goal 4:: Patient increase strength quads/hams 4/5 to improve fuction with ADL'S Goal Time Frame: 4-6 Weeks Goal 5:: Patient to LFES score by 5 points or > to improve QOL. Goal Time Frame: 4-6 Weeks - Rehabilitation Potential Physical Therapy Diagnosis: This patient has bilteral knee pain with OA with pain ,decrease ROM ,decrease strength impairs gait and function thus causes deficts with ADL'S could benifit from skilled PT Rehabilitation Potential: Good - Anticipated Interventions Patient/Client Instruction: Educate patient on: Condition, Plan of Care For the Purpose of:: To decrease pain, To increase ROM, To improve muscle performance and motor function, To improve ability to perform ADL's, To increase tolerance to activity/condition/position, To improve ability of physical actions for home/community/work/leisure, To improve health of tissue, To decrease soft tissue restriction, To increase flexibility/ROM, To improve ability to perform tasks related to life management Therapeutic Exercise to Include: Strength training, Endurance training, Flexibilty training, Active ROM For the Purpose of:: To decrease pain, To increase ROM, To improve muscle performance and motor function, To improve ability to perform ADL's, To increase tolerance to activity/condition/position, To improve ability of physical actions for home/community/work/leisure, To improve health of tissue, To decrease soft tissue restriction, To increase flexibility/ROM TENS: Yes IF ES: Yes Cryotherapy (ice pack, ice massage): Yes Thermo therapy (hot pack): Yes Ultrasound (thermal/non thermal): Yes For the Purpose of:: To decrease pain, To increase ROM, To improve nutrient delivery to tissue, To increase oxygenation perfusion, To improve health of tissue, To decrease soft tissue restriction Thank you for the opportunity to evaluate your patient. For Medicare and Medicare HMO plans, please review the plan of care and approve it. It will need to be FAXED BACK to us at [phone] for Medicare purposes. For Medicare only, by signing this I certify the plan of care. Please let me know if there are questions or concerns regarding this plan of care. Physician Signature: Date:
--- NOTE | 2020-06-24 16:42 | HP.PTDCSUM_ITS ---
It has been my pleasure to treat DERRELL GERMAN referred by Dr. Korey Guillen III, MD, with the diagnosis of LUMBAR RADICULOPATHY for a total of 14 visit(s). Discharge Date: 06/24/20 Please see the following information for a summary of their discharge status. Subjective: Patient Stated back k is doing alot better . Min pain with ADLS' Right Back Pain Intensity (Out of 10): 1 % Improvement: 90 Objective/Function: POSTURE: mild knee valgus ,mild foward posture. GAIT: ant algic waddle gait pattern. MMT: QUADS/HAMS 4/5. LUMBAR ROM: flexion WFL,extension min loss,side glides min loss Goal 1:: Patient to be I with HEP. Goal Progress: Goal Met Goal 2:: Patient to decrease hip and lumbat pain by 70% or > to improve function. Goal Progress: Goal Met Goal 3:: Patient to increase strength of quad/hams 4/5 and hip 3+/5 to improve gait. Goal Progress: Goal Met Goal 4:: Patient to improve lumbar ROM for function of recovery Goal Progress: Goal Met Goal 5:: Patient to improve back owestry score by 5 points or > to improve QOL. Goal Progress: Goal Met Plan: D/C to [facility] Discharge Comments: [facility] If there are questions or concerns regarding this patient's physical therapy, alberto mccarthy feel free to call me at [phone]. Thank you for the referral of this patient. Sincerely, Stevenson Chi, PT, Cert MDT, OCS
--- NOTE | 2020-08-12 14:29 | HP.PTDCS(2) ---
It has been my pleasure to treat DERRELL GERMAN referred by Dr. Korey Guillen III, MD, with the diagnosis of UNILATERAL PRIMARY OSTEOARTHRITIS ,RIGHT AND LEFT KNEE for a total of 10 visit(s). Discharge Date: 08/12/20 Please see the following information for a summary of their discharge status. Subjective: patient is doing good with knees about 95% improve .Patient is able to stand and sit fairly easy .Waliking better % Improvement: 95 Objective/Function/Assessment: POSTURE: hips/knees slightly flexed. GAIT: reciprocal pattern lateral sway. AROM: 0-130 supine knee flexion. MMT: quads/hams 4/5,4-/5 hip Patient Goals: Improve Mobility, Improve Function, Decrease Pain, Alleviate Pain, Walk Normal, Maneuver Steps, Improve ROM Goal 1:: I with HEP. Goal Progress: Goal Met Goal 2:: Patient to improve quality of gait with less antalgic gait pattern. Goal Progress: Goal Met Goal 3:: Decrease knee pain by 50% or > to improve function with gait. Goal Progress: Goal Met Goal 4:: Patient increase strength quads/hams 4/5 to improve fuction with ADL'S Goal Progress: Goal Met Goal 5:: Patient to LFES score by 5 points or > to improve QOL. Goal Progress: Goal Met Plan: d/c to [facility] Discharge Comments: [facility] If there are questions or concerns regarding this patient's physical therapy, please feel free to call me at [phone]. Thank you for the referral of this patient. Sincerely, Stevenson Chi, PT, Cert MDT, OCS
== END 2020-08-12 19:00 | disposition home or self-care (01) ==
LOC: PT 13:30
PROVIDERS: PCP Family Medicine; Referring Provider Family Medicine; Visit Provider Family Medicine
DX: M54.16 Radiculopathy, lumbar region (principal); M17.0 Bilateral primary osteoarthritis of knee
CPT/HCPCS: 97110; 97162; 97530

== ENCOUNTER → 2020-10-01 12:22 | Outpatient (CLI) | payer MEDICARE, BC, SELFPAY ==
[2019-03-13 13:12] VITALS: BMI 46.6
[2020-10-01 11:51] VITALS: BMI 48.6
[2020-10-01 15:24] LABS: Vitamin D,25 Hydroxy 8.2 ng/mL
[2020-10-01 15:33] LABS: AST(SGOT) 15 U/L (15-37); Alanine Aminotransfer ALT/SGPT 25 U/L (13-56); Albumin, Serum 3.7 g/dL (3.2-5.0); Alkaline Phosphatase 104 U/L (45-117); Anion Gap 7 (5-15); BUN 18 mg/dL (7-18); BUN/Creat Ratio 16.2 RATIO (10-20); Calcium,Total 9.3 mg/dL (8.5-10.1); Chloride 99 mmol/L (98-107); Cholesterol 127 mg/dL (200); Creatinine, Serum 1.11 mg/dL (0.55-1.02); EST Glomerular Filtration Rate 52 mL/min (>60); Est Glom Filt Rate - Afr Amer 63 mL/min (>60); Globulin 3.7 g/dL (2.2-4.2); Glucose 151 mg/dL (74-106); High Density Lipoprotein 43 mg/dL; Potassium 3.2 mmol/L (3.5-5.1); Protein, Total 7.4 g/dL (6.4-8.2); Sodium Level 138 mmol/L (136-145); T4 Free Direct 0.83 ng/dL (0.76-1.46); Thyroid Stim Hormone (TSH) 9.07 uIU/mL (0.358-3.74); Triglycerides 221 mg/dL; Very Low Density Lipoprotein 44 mg/dL (5-40)
== END ==
PROVIDERS: PCP Family Medicine; Referring Provider Internal Medicine Endocrinology, Diabetes & Metabolism; Visit Provider Internal Medicine Endocrinology, Diabetes & Metabolism
DX: E11.22 Type 2 diabetes mellitus with diabetic chronic kidney disease (principal); N18.30 Chronic kidney disease, stage 3 unspecified; E78.2 Mixed hyperlipidemia; E03.9 Hypothyroidism, unspecified; E55.9 Vitamin D deficiency, unspecified
CPT/HCPCS: 36415; 80053; 80061; 82306; 84439; 84443

== ENCOUNTER 2020-10-25 15:23 | Emergency (ER) | payer MEDICARE, BC, SELFPAY ==
[2019-03-13 13:12] VITALS: BMI 46.6
[2020-10-01 11:51] VITALS: BMI 48.6
[2020-10-25] VITALS (9 sets, daily range): BP systolic 123–171; BP diastolic 66–77; PULSE 64–94; RESP 13–19; TEMP 36.6–37.1; O2SAT 94–100; BMI 49.1
--- NOTE | 2020-10-25 15:44 | EKG12_ITS ---
Test Reason : CP Blood Pressure : / mmHG Vent. Rate : 096 BPM Atrial Rate : 096 BPM P-R Int : 140 ms QRS Dur : 082 ms QT Int : 392 ms P-R-T Axes : 053 039 030 degrees QTc Int : 495 ms Normal sinus rhythm Prolonged QT Abnormal ECG Confirmed by NGUYỄN GRIMM, IVAN ([id number]), photographic editor MAGDALENE ARRIETA ([id number]) on 10/27/2020 11:37:03 AM Referred By: DAYTON Confirmed By:IVAN ADRIAN MD
--- NOTE | 2020-10-25 15:45 | RAD_ITS ---
STUDY: X-RAY CHEST REASON FOR EXAM: Female, 64 years old. chest pain. nausea and diarrhea TECHNIQUE: AP COMPARISON: 02/21/2020 FINDINGS: Stable chondroid lesion of the proximal right humerus, likely enchondroma. EKG leads project over the chest. The lungs are clear and expanded. There is no demonstrated pleural abnormality. Normal size heart. Normal mediastinum and jud. Normal visualized pulmonary arteries. Normal visualized aortic arch and descending thoracic aorta. Normal visualized thoracic spine. Normal visualized ribs, clavicles, and shoulders. There is no demonstrated abnormality of the visualized soft tissue structures of the upper abdomen. RAD/Chest 1 View (Portable) IMPRESSION: Stable, nonacute portable x-ray examination of the chest. Electronically Signed: Alvarez Arreaga MD (Brooks) at 16:05 EST , Service support ,
--- NOTE | 2020-10-25 15:46 | ED.VISSUMM ---
- ER Visit Summary Date of Service: 10/25/20 Chief Complaint: Chest pain History of Present Illness: The patient is a 64 F who presents with chest pain that has been waxing and waning throughout the day today. Patient states it gets worse for approximately 5 to 10 minutes. Patient states it improved with sublingual nitroglycerin. Patient describes the pain as constant aching and pressure but sharp at times. Patient states nothing makes it worse. Patient does have a history of coronary artery disease, hypertension, diabetes, hypercholesterolemia, and congestive heart failure. Physical Examination: Vital signs are stable. Patient is afebrile. Patient is in no acute distress. Oral mucosa is pink and moist. Neck is supple. Trachea is midline. There is no JVD noted. Heart was regular rate and rhythm. Lungs are clear and equal bilaterally. Abdomen is soft. Bowel sounds are normal. There is no tenderness. There is no rebound or guarding noted. Skin is warm dry. Cranial nerves II through XII are intact. There are no focal motor or sensory deficits noted. Extremities are intact. There is 1+ edema of the lower extremities bilaterally. Test Results: EKG was obtained. On my interpretation, there is a normal sinus rhythm with a rate of 96. There are no acute ST or T wave changes. This was unchanged compared to previous EKG dated 03/14/2019. CBC and basic metabolic profile were obtained and were within normal limits with the exception of an elevated glucose of 282 and a creatinine of 1.29. These are consistent with prior results. Troponin was normal. BNP was normal. TSH was obtained and was normal. Portable 1 view chest x-ray was obtained. On my interpretation, lung hardin are clear. There is normal cardiac silhouette. Bony thorax is normal. There is no acute process noted. Radiologist also interpreted the x-ray and agrees. Emergency Department Course and Treatment: Patient was given aspirin and nitroglycerin here. Patient was still having some pain on reevaluation. Case was discussed with the hospitalist. He noted that the patient had a cardiac catheterization last February. There is minimal coronary artery disease noted. He recommended obtaining a delta troponin. This was done and was normal. Patient was instructed to follow-up with her primary care physician in 5 to 7 days. Patient understood and was agreeable with the plan. All questions were answered. Disposition: Discharge home Impression: Chest pain This note was generated with [employer] dictation software. It may contain incorrect words, spelling, and punctuation that were not noted in review of the chart prior to signing ED Disposition - Plan for ED Patient: Disposition: Home or Assisted Living Diagnosis: Chest pain Instructions: ED Chest Pain, Uncertain Cause Referrals: Korey Guillen III, MD [Primary Care Provider] - 3-5 Days
[2020-10-25] MEDS: Aspirin 325 MG Tablet PO (16:06)
[2020-10-25 16:17] LABS: Absolute Lymphocyte Count 1.77 X10^3/uL (0.83-4.51); Absolute Neutrophil Count 6.9 X10^3/uL (2.0-7.7); Basophil# 0.04 X10^3/uL; Basophil% 0.4 % (0-1); Eosinophil# 0.06 X10^3/uL; Eosinophils% 0.6 % (0-5); Hemoglobin 13.9 g/dL (12.0-15.0); Lymphocyte # 1.77 X10^3/ul (4.0); Mean Corp Hgb Conc 31.6 g/dL (32-36); Mean Corpuscular Hgb 28.1 pg (27.0-32.0); Mean Corpuscular Volume 89.1 fL (81-99); Mean Platelet Vol. 9.7 fl (6.2-12.0); Monocyte# 0.53 X10^3/uL; Monocyte% 5.7 % (0-10); NRBC Flagged by Analyzer 0 % (0-5); Neutrophil # 6.86 X10^3/uL (2.7-7.7); Neutrophil % 73.7 % (47-70); Platelet Count 310 K/mm3 (150-450); RBC Distribution Width CV 13.9 % (11.6-14.6); RBC Distribution Width SD 45.4 fl (35.1-43.9); Red Blood Count 4.94 M/mm3 (4.2-5.4); White Blood Count 9.3 K/mm3 (4.4-11.0)
[2020-10-25 16:21] LABS: Anion Gap 10 (5-15); BUN 12 mg/dL (7-18); BUN/Creat Ratio 9.3 RATIO (10-20); Calcium,Total 9.4 mg/dL (8.5-10.1); Chloride 98 mmol/L (98-107); Creatinine, Serum 1.29 mg/dL (0.55-1.02); EST Glomerular Filtration Rate 44 mL/min (>60); Est Glom Filt Rate - Afr Amer 53 mL/min (>60); Estimated Creatinine Clearance 34.39 ml/min; Glucose 282 mg/dL (74-106); Potassium 3.5 mmol/L (3.5-5.1); Sodium Level 136 mmol/L (136-145); Thyroid Stim Hormone (TSH) 3.57 uIU/mL (0.358-3.74)
[2020-10-25 16:37] LABS: BNP,B-Type NATRIURETIC PEPTIDE 12.3 pg/mL (0-100)
--- NOTE | 2020-10-25 17:42 | NURSING ---
DR MICKEY ALVES
[2020-10-25] MEDS: Morphine 4 MG/ML Syringe IV (18:45)
== END 2020-10-25 19:58 | disposition home or self-care (01) ==
PROVIDERS: Emergency Provider Emergency Medicine; PCP Family Medicine
DX: R07.9 Chest pain, unspecified (principal); I11.0 Hypertensive heart disease with heart failure; I50.9 Heart failure, unspecified; I25.10 Atherosclerotic heart disease of native coronary artery without angina pectoris; E11.65 Type 2 diabetes mellitus with hyperglycemia; E78.00 Pure hypercholesterolemia, unspecified; E03.9 Hypothyroidism, unspecified; J45.909 Unspecified asthma, uncomplicated; R19.7 Diarrhea, unspecified; R00.2 Palpitations; R51.9 Headache, unspecified; M54.9 Dorsalgia, unspecified; E66.9 Obesity, unspecified; Z79.02 Long term (current) use of antithrombotics/antiplatelets; Z79.82 Long term (current) use of aspirin; Z79.4 Long term (current) use of insulin; Z79.899 Other long term (current) drug therapy; Z95.5 Presence of coronary angioplasty implant and graft
CPT/HCPCS: 71045; 80048; 83880; 84443; 84484; 85025; 90471; 93005; 96374; 99285; A4216

== ENCOUNTER 2020-11-29 13:25 | Emergency (ER) | payer MEDICARE, BC, SELFPAY ==
[2019-03-13 13:12] VITALS: BMI 46.6
[2020-10-25 15:24] VITALS: BMI 49.1
[2020-11-29 13:27] VITALS: BP 156/72; PULSE 87; RESP 16; TEMP 36.2; O2SAT 99; BMI 47.5
--- NOTE | 2020-11-29 14:14 | ED.DCSUM_ITS ---
History of Present Illness Chief Complaint: Lower Extremity Injury Informant: Patient Narrative: Patient is a 65-year-old female who presents to the emerge department for right hip pain. She states that she fell on Monday. She was bending over to pick and shovel man toys and falling backwards onto her left side. She was having pain in her right shoulder, wrist, right hip and knee. All of her symptoms have been resolving except the right hip pain. She has been taking her home gabapentin, Tylenol and ibuprofen. This has not been giving her any relief. She has been able to ambulate on the right leg but was always been clutching onto something due to the pain in the leg. Any movement seem to exacerbate it. No known relieving factors. She cannot lay on that side either. She denies any back pain. No urinary retention. No saddle anesthesia. No loss of sensation in her extremities. No radiation of the pain down her legs. She is not on any blood thinning medications. Past Medical History - Allergies and Home Meds Allergies/Adverse Reactions: Allergies Fish Containing Products Allergy (Verified 11/29/20 13:26) Hives fluconazole [From Diflucan] Allergy (Verified 11/29/20 13:26) Hives iodine Allergy (Verified 11/29/20 13:26) Unknown orange Allergy (Verified 11/29/20 13:26) Hives Penicillins Allergy (Verified 11/29/20 13:26) Unknown pioglitazone [From Actos] Allergy (Verified 11/29/20 13:26) Hives povidone-iodine [From Betadine] Allergy (Verified 11/29/20 13:26) Unknown soap [From Betadine] Allergy (Verified 11/29/20 13:26) Unknown Sulfa (Sulfonamide Antibiotics) Allergy (Verified 11/29/20 13:26) Unknown sulfamethoxazole [From Bactrim] Allergy (Verified 11/29/20 13:26) Unknown tetanus and diphtheria toxoids Allergy (Verified 11/29/20 13:26) Hives trimethoprim [From Bactrim] Allergy (Verified 11/29/20 13:26) Unknown amlodipine Adverse Reaction (Severe, Verified 11/29/20 13:26) Swelling Primary Care Physician: Korey Guillen III, MD [Primary Care Provider] - 2 Days Prior records reviewed: Yes Surgical History: total knee arthroplasty Smoking Status: Never smoker Review of Systems All systems negative except as indicated General: Denies: Chills, Fever, Sweats Eyes: Denies: Visual changes - bilaterally, Diplopia ENT: Denies: Rhinorrhea, Sore throat Cardiovascular: Denies: Chest pain, Palpitations Respiratory: Denies: Dyspnea, Cough, Dyspnea on exertion Gastrointestinal: Denies: Abdominal pain, Nausea, Vomiting Musculoskeletal: Reports: Extremity Pain - Right hip. Denies: Neck pain, Back pain Skin: Denies: Rash, Wounds Neurological: Denies: Headache, Weakness, Numbness Physical Exam Vital Signs/Narrative: Vital Signs Temp Pulse Resp BP Pulse Ox 11/29/20 13:27 97.2 F L 87 16 156/72 H 99 Inital Vital Signs reviewed: Yes General: Well nourished, Well developed, No Acute Distress Head: Normocephalic, Atraumatic Eyes: Perrl, EOMI ENT: Moist mucous membranes, No rhinorrhea Neck: Supple, Nontender Cardiovascular: Regular rate, Regular rhythm, No murmurs Respiratory: No distress, CTA bilaterally, Chest nontender Abdomen: Soft, Nontender, Nondistended, Normal bowel sounds Back: Nontender, Normal Inspection. Negative for: Spinal tenderness Extremities: No edema, Tenderness - Patient has tenderness along the right piriformis. She has some pain at the ASIS. Passive range of motion is limited due to pain at that site. She otherwise is neurovascularly intact. Skin: Normal color, No rash Neurological: Alert, Oriented x3, Cranial nerves II-XII grossly intact, Normal Strength, Normal Sensation Psychological: Normal affect, Normal Mood Diagnostic/Tx/Re-eval Chest X-Ray - ED: - - Pelvis and hip x-ray interpreted by myself. There are arthritic changes but no obvious fracture. Agree with radiologist interpretation. - Medical Decision Making Patient presents to the ED for right hip pain after a fall earlier this week. She did not hit her head or lose consciousness. Her only complaint is the hip pain. Upon arrival to the ED vital signs within normal limits. She is in no acute distress. She has been able to ambulate on the leg. Will obtain an x-ray of the hip and pelvis. Patient is given a Sebec for symptomatic treatment. X-ray did not reveal any acute traumatic findings. She is able to ambulate on this. She is feeling better after treatment. Will discharge home in stable condition. She is going to follow-up with the PCP. Return precautions are reviewed. She understands and is agreeable this plan. ED Disposition - Plan for ED Patient: Disposition: Home or Assisted Living Diagnosis: Injury of hip Instructions: ED Hip Contusion Prescriptions: Hydrocodone Bitart/Apap 5-325 [Sebec 5MG-325MG] 1 tablet PO Q6H PRN PRN 3 Days #8 tab PRN Reason: Pain Transmission Status: Received by [id number] Referrals: Korey Guillen III, MD [Primary Care Provider] - 2 Days
[2020-11-29] MEDS: HYDROcodone Bitartrate/Apap 5/325 Tablet PO (14:19)
--- NOTE | 2020-11-29 14:40 | RAD_ITS ---
STUDY: X-RAY - PELVIS AND RIGHT HIP REASON FOR EXAM: Female, 65 years old. Fall, R hip pain TECHNIQUE: 4 views of the pelvis and hip. COMPARISON: March 14, 2020 FINDINGS: There is abundant stool in the colon. Normal visualized soft tissue structures. Degenerative change in the lower lumbar spine. Normal bilateral iliac wings, sacroiliac joints and visualized sacrum. Normal bilateral superior and inferior pubic rami. Normal pubic symphysis. Normal bilateral ischial tuberosities. There is mild narrowing of the bilateral hip joints. Minimal acetabular spurring. There is no visualized acute fracture. RAD/HIP, UNI W/ Pelvis 2-3 Views IMPRESSION: Degenerative change. No visualized acute fracture. Electronically Signed: Devika Carlos MD at 16:39 EDT Tel , Service support ,
[2020-11-29 17:08] VITALS: BP 138/70; PULSE 88; RESP 18; O2SAT 97
== END 2020-11-29 17:09 | disposition home or self-care (01) ==
PROVIDERS: Emergency Provider Emergency Medicine; PCP Family Medicine
DX: S79.911A Unspecified injury of right hip, initial encounter (principal); W19.XXXA Unspecified fall, initial encounter; Y93.9 Activity, unspecified; Y92.9 Unspecified place or not applicable; Y99.9 Unspecified external cause status; Z79.02 Long term (current) use of antithrombotics/antiplatelets; Z79.82 Long term (current) use of aspirin; Z79.4 Long term (current) use of insulin; Z79.899 Other long term (current) drug therapy
CPT/HCPCS: 73502; 99283

== ENCOUNTER → 2021-01-05 11:18 | Outpatient (CLI) | payer MEDICARE, BC, SELFPAY ==
[2019-03-13 13:12] VITALS: BMI 46.6
[2021-01-05 10:53] VITALS: BMI 47.9
[2021-01-05 12:50] LABS: Vitamin D,25 Hydroxy 26.5 ng/mL
[2021-01-05 13:00] LABS: T4 Free Direct 1.13 ng/dL (0.76-1.46); Thyroid Stim Hormone (TSH) 4.16 uIU/mL (0.358-3.74)
== END ==
PROVIDERS: PCP Family Medicine; Referring Provider Internal Medicine Endocrinology, Diabetes & Metabolism; Visit Provider Internal Medicine Endocrinology, Diabetes & Metabolism
DX: E03.9 Hypothyroidism, unspecified (principal); E55.9 Vitamin D deficiency, unspecified
CPT/HCPCS: 36415; 82306; 84439; 84443

== ENCOUNTER → 2021-01-21 13:28 | Outpatient (CLI) | payer MEDICARE, BC, SELFPAY ==
[2019-03-13 13:12] VITALS: BMI 46.6
[2021-01-05 10:53] VITALS: BMI 47.9
[2021-01-21 13:43] VITALS: BP 146/77; PULSE 99; RESP 18; TEMP 35.6; O2SAT 98; BMI 48.2
[2021-01-21] MEDS: DENOSUMAB 60 MG/ML SC (13:46)
== END ==
PROVIDERS: PCP Family Medicine; Referring Provider Internal Medicine Endocrinology, Diabetes & Metabolism; Visit Provider Internal Medicine Endocrinology, Diabetes & Metabolism
DX: M81.0 Age-related osteoporosis without current pathological fracture (principal)
CPT/HCPCS: 96372; J0897

== ENCOUNTER → 2021-04-21 10:53 | Outpatient (CLI) | payer MEDICARE, BC, SELFPAY ==
[2019-03-13 13:12] VITALS: BMI 46.6
[2021-02-16 05:50] VITALS: BMI 49.0
--- NOTE | 2021-04-21 11:25 | RAD_ITS ---
STUDY: X-RAY - RIGHT SHOULDER REASON FOR EXAM: Female, 65 years old. ABN FINDINGS TECHNIQUE: 4 view(s) of the shoulder. COMPARISON: 02/21/2020 chest x-ray FINDINGS: Normal glenohumeral articulation with mild DJD. Mild acromioclavicular DJD. Normal acromion. Cement in the humeral head again noted. Otherwise normal appearance of the proximal humerus. The soft tissue structures are unremarkable. Normal visualized pulmonary apex. RAD/Shoulder min 2 Views IMPRESSION: Mild glenohumeral and acromioclavicular DJD. Electronically Signed: Harry Raman MD at 22:29 EDT Tel , Service support ,
== END ==
PROVIDERS: PCP Family Medicine; Referring Provider Orthopaedic Surgery; Visit Provider Orthopaedic Surgery
DX: R93.89 Abnormal findings on diagnostic imaging of other specified body structures (principal)
CPT/HCPCS: 73030

== ENCOUNTER → 2021-07-13 13:55 | Outpatient (CLI) | payer MEDICARE, BC, SELFPAY ==
[2019-03-13 13:12] VITALS: BMI 46.6
[2021-02-16 05:50] VITALS: BMI 49.0
--- NOTE | 2021-07-13 13:58 | BI_ITS ---
MAMMOGRAPHY - BILATERAL SCREENING REASON FOR EXAM: Female, 65 years old. Routine annual screening examination. PERTINENT HISTORY: Non-contributory. TECHNIQUE: Digital bilateral breast jayne (3D mammographic acquisition) in the CC and MLO projections. 2-D mediolateral oblique (MLO) and craniocaudad (CC) views of both breasts were obtained. CAD: Full Field Digital Mammography with Computer Added Detection was performed. COMPARISON: Comparison is made with prior study dated 07/01/2020 and 04/30/2019. FINDINGS: Breast Composition: The breasts are almost entirely fatty. There are no dominant masses or suspicious calcifications. Stable 5.3 mm calcified nodule in the superior lateral retroareolar region of the right breast. No other significant abnormalities are identified. There has been no significant change since the prior study. BI/SCRN MAMM (CAD)W/JAYNE BILAT IMPRESSION: Stable bilateral screening mammogram. Yearly follow-up mammogram recommended. (A) ASSESSMENT CATEGORY: BIRADS Category 2: Benign. A letter regarding these results will be sent to the patient by the facility within 30 days. Approximately 10% of breast cancers are not detected by mammography. A normal mammogram should not delay biopsy of a clinically suspicious abnormality. [id number] Electronically Signed: Cliff Horowitz MD at 14:53 EST , Service support ,
== END ==
PROVIDERS: PCP Family Medicine; Referring Provider Family Medicine; Visit Provider Family Medicine
DX: Z12.31 Encounter for screening mammogram for malignant neoplasm of breast (principal)
CPT/HCPCS: 77063; 77067

== ENCOUNTER → 2021-07-22 13:12 | Outpatient (CLI) | payer MEDICARE, BC, SELFPAY ==
[2019-03-13 13:12] VITALS: BMI 46.6
[2021-01-05 10:53] VITALS: BMI 47.9
[2021-07-22 13:26] VITALS: BP 143/79; PULSE 83; RESP 16; TEMP 36.6; O2SAT 98
[2021-07-22] MEDS: DENOSUMAB 60 MG/ML SC (13:28)
== END ==
PROVIDERS: PCP Family Medicine; Referring Provider Internal Medicine Endocrinology, Diabetes & Metabolism; Visit Provider Internal Medicine Endocrinology, Diabetes & Metabolism
DX: M81.0 Age-related osteoporosis without current pathological fracture (principal)
CPT/HCPCS: 96372; J0897

== ENCOUNTER 2021-09-21 07:07 | Outpatient (CLI) | payer MEDICARE, BC, SELFPAY ==
[2019-03-13 13:12] VITALS: BMI 46.6
--- NOTE | 2021-09-21 07:13 | ECHOCS_ITS ---
Reason For Study: CAD/ASHD Procedure This was a 2D Doppler, Color Flow transthoracic echocardiogram. Technically difficult study due to patients body habitus. Contrast injection performed. The study was technically difficult. Contrast injection was performed. Exam performed in department. Left Ventricle Normal LV size. Left ventricular systolic function is normal. The estimated ejection fraction is 65 %. Diastolic function is indeterminate. No regional wall motion abnormalities noted. Right Ventricle Normal RV size. Normal systolic function. Atria The left atrium is mildly enlarged. Normal right atrium. No doppler evidence for ASD. Mitral Valve There is mild mitral annular calcification. Mild focal mitral valve thickening. Mild (1+) mitral valve insufficiency. Tricuspid Valve Normal tricuspid valve. Trivial tricuspid valve insufficiency. Unable to estimate RV systolic pressure/pulmonary artery pressure due to technically difficult study. Aortic Valve The aortic valve is not well visualized. Pulmonic Valve The pulmonic valve is not well visualized. Great Vessels The aortic root is not well visualized. Pericardium/Pleural No pericardial effusion. Medication 22 gauge I.V. with prn adaptor inserted into left arm. Diluted definity 4.5ml given slow IV push to enhance endocardial definition. MMode/2D Measurements & Calculations LVIDd: 4.5 cm IVSd: 1.1 cm LA dimension: 3.5 cm LVIDs: 2.6 cm LVPWd: 1.2 cm FS: 41.1 % LAV(MOD-bp): 46.2 ml LA A4 area: 17.6 cm2 RA A4 area: 11.1 cm2 LAV(MOD-bp) Indexed: 21.1 ml/m2 LAV(MOD-sp2): 43.1 ml LAV(MOD-sp4): 50.3 ml Time Measurements MV dec time: 0.26 sec Doppler Measurements & Calculations MV E max jonathan: 82.9 cm/sec Lat Peak E' Jonathan: 5.3 cm/sec Med Peak E' Jonathan: 5.9 cm/sec MV A max jonathan: 118.9 cm/sec E/E' lat: 15.7 E/E' med: 14.0 MV E/A: 0.70 MV V2 max: 131.0 cm/sec MV P1/2t max jonathan: 98.2 cm/sec Ao V2 max: 131.8 cm/sec MV max P.9 mmHg MV P1/2t: 75.0 msec Ao max P.0 mmHg MV V2 mean: 68.1 cm/sec MV dec slope: 383.7 cm/sec2 MV mean P.2 mmHg MV V2 VTI: 25.5 cm MVA(P1/2t): 2.9 cm2 LV V1 max: 111.1 cm/sec PA V2 max: 89.1 cm/sec LV V1 max P.9 mmHg ECHO/Echo Complete W/ Contrast Interpretation Summary The study was technically difficult. Contrast injection was performed. Left ventricular systolic function is normal. The estimated ejection fraction is 65 %. The left atrium is mildly enlarged. There is mild mitral annular calcification. Mild focal mitral valve thickening. Mild (1+) mitral valve insufficiency. Trivial tricuspid valve insufficiency. Unable to estimate RV systolic pressure/pulmonary artery pressure due to techni breanne difficult study. Diastolic function is indeterminate. Ordering Physician: Harry Hudson Referring Physician: Willard Friedman Performed By: Josafat Decker RCS
--- NOTE | 2021-09-21 13:02 | STRESSREP_ITS ---
Stress Test Report Date: 09-21-2021 Procedure: Pharmacologic stress nuclear imaging study Indications: Chest pain; CAD; PCI Consent: Per the patient Procedure: The patient underwent pharmacologic (Regadenoson 0.4mg ) evaluation with a peak heart rate of 100 beats per minute (64%predicted maximal heart rate) and a peak blood pressure of 142/80 mmHg. The baseline ECG demonstrated normal sinus rhythm; low voltage QRS. The peak pharmacologic ECG demonstrated no obvious ECG changes. There were no cardiac dysrhythmias pretest, during pharmacologic infusion, or recovery. There was no complaint of chest discomfort during pharmacologic infusion or recovery. The examination was discontinued secondary to completion of protocol. Impression: 1. Pharmacologic (Regadenoson) evaluation 2. Peak pharmacologic ECG with no obvious ECG changes. 3. There were no cardiac dysrhythmias pretest, during pharmacologic infusion, or recovery. 4. Nuclear images pending Myocardial perfusion imaging study: Technique: The patient was injected with 14.6 millicuries of technetium 99m Cardiolite and subsequently rest SPECT Cardiolite nuclear imaging was obtained in the horizontal long, vertical long, and short axis views. The patient underwent pharmacologic (Regadenoson) evaluation with a peak heart rate of 100 beats per minute (64% percent predicted maximal heart rate) and a peak blood pressure of 142/80 mmHg. The patient was injected with 44.5 millicuries of technetium 99m Cardiolite and subsequently stress SPECT Cardiolite nuclear imaging was obtained in the horizontal long, vertical long, and short axis views. A gated Cardiolite study at peak stress was obtained. Interpretation: Rest and stress SPECT Cardiolite nuclear imaging status post realignment, normalization, and attenuation correction demonstrate a small area of subtle diminished tracer uptake near the apical segments without significant change between rest and stress. There is end systolic thickening and brightening. The gated Cardiolite study demonstrates myocardial thickening and inward wall motion. The reported LVEF is 84%. Impression: 1. Rest and stress SPECT Cardiolite nuclear imaging demonstrate a small area of subtle diminished tracer uptake near the apical segments without significant change between rest and stress appearing compatible with physiologic apical thinning with no myocardial perfusion changes considered diagnostic for associated stress-induced myocardial ischemia. 2. The gated Cardiolite study reports an LVEF of 84%. This note was generated with [employer] software. It may contain incorrect words, spelling, and punctuation that were not noted in checking the note before signing.
== END 2021-09-21 23:59 | disposition short-term general hospital (02) ==
LOC: CVS 07:11
PROVIDERS: PCP Family Medicine; Referring Provider Internal Medicine Cardiovascular Disease; Visit Provider Internal Medicine Cardiovascular Disease
DX: I25.10 Atherosclerotic heart disease of native coronary artery without angina pectoris (principal)
CPT/HCPCS: 78452; 93017; 93306; A9500; Q9957; A4216; C8929; J2785

== ENCOUNTER 2021-10-05 13:21 | Outpatient (CLI) | payer MEDICARE, BC, SELFPAY ==
[2019-03-13 13:12] VITALS: BMI 46.6
[2021-10-05 15:45] LABS: Hemoglobin A1c 9.6 % (3.8-5.6)
== END 2021-10-05 23:59 | disposition home or self-care (01) ==
LOC: MTLAB 13:24
PROVIDERS: PCP Family Medicine; Referring Provider Nurse Practitioner Family; Visit Provider Nurse Practitioner Family
DX: E11.9 Type 2 diabetes mellitus without complications (principal)
CPT/HCPCS: 36415; 83036

== ENCOUNTER → 2022-01-20 | Outpatient (CLI) | payer MEDICARE, BC, SELFPAY ==
[2019-03-13 13:12] VITALS: BMI 46.6
[2022-01-20 13:34] VITALS: BP 120/67; PULSE 85; RESP 14; O2SAT 94; BMI 46.4
[2022-01-20] MEDS: DENOSUMAB 60 MG/ML SC (13:38)
== END | disposition home or self-care (01) ==
PROVIDERS: PCP Family Medicine; Referring Provider Internal Medicine Endocrinology, Diabetes & Metabolism; Visit Provider Internal Medicine Endocrinology, Diabetes & Metabolism
DX: M81.0 Age-related osteoporosis without current pathological fracture (principal)
CPT/HCPCS: 96372; J0897

== ENCOUNTER → 2022-02-22 | Outpatient (CLI) | payer MEDICARE, BC, SELFPAY ==
[2019-03-13 13:12] VITALS: BMI 46.6
[2022-02-22 13:47] LABS: Mucous, Urine 0 SEEN /hpf (<or=2+)
[2022-02-22 15:41] LABS: Color, Urine Straw (Yellow); Glucose, Dipstick Normal (Normal); Ketone-Dipstick Negative (Negative); Leukocyte Esterase-Dipstick 500 /ul (Negative); Nitrite-Dipstick Positive (Negative); Occult Blood-Urine 10 /ul (Negative); Protein-Dipstick 15 mg/dl (Negative); Urine Bilirubin Dipstick Negative (Negative); Urine Clarity Sl. Cloudy (Clear); Urine Urobilinogen Normal (Normal); Urine pH 6.5 (5.0 - 8.0)
[2022-02-22 15:54] LABS: ALB/GLOB Ratio 0.9 RATIO (0.9-2.4); AST(SGOT) 37 U/L (15-37); Alanine Aminotransfer ALT/SGPT 25 U/L (13-56); Albumin, Serum 3.4 g/dL (3.2-5.0); Alkaline Phosphatase 110 U/L (45-117); Anion Gap 6 (5-15); BUN 15 mg/dL (7-18); BUN/Creat Ratio 13.6 RATIO (10-20); Calcium,Total 9.7 mg/dL (8.5-10.1); Chloride 100 mmol/L (98-107); Cholesterol 114 mg/dL (200); EST Glomerular Filtration Rate 53 mL/min (>60); Est Glom Filt Rate - Afr Amer 64 mL/min (>60); Globulin 3.8 g/dL (2.2-4.2); Glucose 115 mg/dL (74-106); High Density Lipoprotein 40 mg/dL; Potassium 4.1 mmol/L (3.5-5.1); Protein, Total 7.2 g/dL (6.4-8.2); Sodium Level 138 mmol/L (136-145); T4 Free Direct 1.51 ng/dL (0.76-1.46); Thyroid Stim Hormone (TSH) 0.41 uIU/mL (0.358-3.74); Triglycerides 131 mg/dL; Very Low Density Lipoprotein 26 mg/dL (5-40)
[2022-02-22 16:22] LABS: Red Blood Cells-Urine 5-10 SEEN /hpf (0-5); Squamous Epithelial Cells - UA 0-5 SEEN /hpf (5-10); White Blood Cells 25-50 SEEN /hpf (0-5)
[2022-02-22 16:23] LABS: Bacteria 4+ /hpf (None Seen)
[2022-02-22 18:07] LABS: Vitamin D,25 Hydroxy 36.5 ng/mL
== END | disposition home or self-care (01) ==
LOC: BIMLAB 13:45
PROVIDERS: PCP Family Medicine; Visit Provider Internal Medicine Endocrinology, Diabetes & Metabolism
DX: R31.9 Hematuria, unspecified (principal); E11.65 Type 2 diabetes mellitus with hyperglycemia; E11.22 Type 2 diabetes mellitus with diabetic chronic kidney disease; E66.01 Morbid (severe) obesity due to excess calories; Z68.42 Body mass index [BMI] 45.0-49.9, adult; Z79.4 Long term (current) use of insulin; N18.30 Chronic kidney disease, stage 3 unspecified; E55.9 Vitamin D deficiency, unspecified; E03.9 Hypothyroidism, unspecified; E78.2 Mixed hyperlipidemia; I25.10 Atherosclerotic heart disease of native coronary artery without angina pectoris; R06.09 Other forms of dyspnea
CPT/HCPCS: 36415; 80053; 80061; 81001; 82306; 84439; 84443; 87077; 87086; 87088; 87186

== ENCOUNTER → 2022-03-11 | Outpatient (CLI) | payer MEDICARE, BC, SELFPAY ==
[2019-03-13 13:12] VITALS: BMI 46.6
== END | disposition home or self-care (01) ==
LOC: MTLAB 14:33
PROVIDERS: PCP Family Medicine; Referring Provider Internal Medicine Endocrinology, Diabetes & Metabolism; Visit Provider Internal Medicine Endocrinology, Diabetes & Metabolism
DX: N39.0 Urinary tract infection, site not specified (principal)
CPT/HCPCS: 87086; 87088

== ENCOUNTER 2022-05-24 09:02 | Day surgery (SDC) | payer MEDICARE, BC, SELFPAY ==
[2019-03-13 13:12] VITALS: BMI 46.6
[2022-05-24] VITALS (7 sets, daily range): BP systolic 105–146; BP diastolic 60–72; PULSE 70–75; RESP 18–96; TEMP 36.2–37.1; O2SAT 94–99; BMI 44.0
--- NOTE | 2022-05-24 09:18 | HP.PCM_ITS ---
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 Is patient in pain?: No Allergies Fish Containing Products Allergy (Verified 04/26/22 13:14) Hivesfluconazole [From Diflucan] Allergy (Verified 04/26/22 13:14) Hivesiodine Allergy (Verified 04/26/22 13:14) Unknownorange Allergy (Verified 04/26/22 13:14) HivesPenicillins Allergy (Verified 04/26/22 13:14) Unknownpioglitazone [From Actos] Allergy (Verified 04/26/22 13:14) Hivespovidone-iodine [From Betadine] Allergy (Verified 04/26/22 13:14) Unknownsoap [From Betadine] Allergy (Verified 04/26/22 13:14) UnknownSulfa (Sulfonamide Antibiotics) Allergy (Verified 04/26/22 13:14) Unknownsulfamethoxazole [From Bactrim] Allergy (Verified 04/26/22 13:14) Unknowntetanus and diphtheria toxoids Allergy (Verified 04/26/22 13:14) Hivestrimethoprim [From Bactrim] Allergy (Verified 04/26/22 13:14) Unknownamlodipine Adverse Reaction (Severe, Verified 04/26/22 13:14) Swelling Medications epinephrine 0.3 mg/0.3 mL injection, auto-injector (EpiPen) 0.3 mg IM ONCE 10/30/17 [History Confirmed 04/26/22] rosuvastatin 20 mg tablet 20 mg PO QDAY Cholesterol 11/22/17 [History Confirmed 04/26/22] aspirin 81 mg tablet,delayed release 81 mg PO DAILY@0800 03/14/19 [Rx Confirmed 04/26/22] famotidine 20 mg tablet 20 mg PO BID 09/09/19 [History Confirmed 04/26/22] gabapentin 100 mg capsule 100 - 300 mg PO TID 05/27/20 [History Confirmed 04/26/22] pen needle, diabetic 32 gauge x 5/32 (BD Ultra-Fine Eva Pen Needle) #100 ea 10/01/20 [Rx Confirmed 04/26/22] levothyroxine 175 mcg tablet 175 mcg PO DAILY 10/25/20 [History Confirmed 04/26/22] cholecalciferol (vitamin D3) 125 mcg (5,000 unit) tablet 125 mcg PO DAILY 12/02/20 [History Confirmed 04/26/22] Prolia 60 mg/mL subcutaneous syringe (denosumab) 60 mg subcut [id number] #1 mL 07/11/21 [Rx Confirmed 04/26/22] doxycycline hyclate 20 mg tablet 20 mg PO BID 10/15/21 [History Confirmed 04/26/22] hydrocortisone 2.5 % topical cream 1 applic topical BID PRN Itching 10/15/21 [History Confirmed 04/26/22] melatonin 5 mg tablet 5 mg PO HS PRN 10/15/21 [History Confirmed 04/26/22] triamcinolone acetonide 0.1 % topical cream 1 applic topical DAILY 10/15/21 [History Confirmed 04/26/22] isosorbide mononitrate 60 mg tablet,extended release 24 hr 60 mg PO DAILY #30 tabs 11/10/21 [Rx Confirmed 04/26/22] clopidogrel 75 mg tablet 75 mg PO DAILY #90 tabs 11/11/21 [Rx Confirmed 04/26/22] nitroglycerin 0.4 mg sublingual tablet 0.4 mg sublingual Q5M PRN .CHEST PAIN #25 tabs 11/11/21 [Rx Confirmed 04/26/22] Humulin R U-500 (Conc) Insulin 500 unit/mL subcutaneous soln (insulin regular hum U-500 conc) See Rx Instructions subcut ONCE #220 mL 12/03/21 [Rx Confirmed 04/26/22] insulin U-500 syringe-needle 1/2 mL 31 gauge x 15/64 (BD Insulin Syringe U-500) #100 ea 12/20/21 [Rx Confirmed 04/26/22] ciprofloxacin HCl 500 mg tablet (Cipro) 500 mg PO DAILY #7 tabs 02/23/22 [Rx Confirmed 04/26/22] nystatin 100,000 unit/gram topical cream 1 applic topical DAILY #30 grams 02/23/22 [Rx Confirmed 04/26/22] hydrochlorothiazide 12.5 mg tablet 12.5 mg PO DAILY #90 tabs 02/24/22 [Rx Confirmed 04/26/22] metoprolol tartrate 25 mg tablet 25 mg PO BID #180 tabs 02/24/22 [Rx Confirmed 04/26/22] potassium chloride 10 mEq tablet,extended release 10 meq PO BID 02/24/22 [History Confirmed 04/26/22] dulaglutide 4.5 mg/0.5 mL subcutaneous pen injector (Trulicity) 4.5 mg (0.5 mL) subcut QWEEK #2 mL 03/07/22 [Rx Confirmed 04/26/22] Farxiga 10 mg tablet (dapagliflozin) 10 mg PO DAILY #30 tabs 03/14/22 [Rx Confirmed 04/26/22] FreeStyle Octavia 2 Sensor (flash glucose sensor) #2 ea 04/11/22 [Rx Confirmed 04/26/22] FreeStyle Octavia 2 Summit (flash glucose scanning reader) #1 ea 04/12/22 [Rx Confirmed 04/26/22] furosemide 20 mg tablet 20 mg PO BID 04/26/22 [History Confirmed 04/26/22] furosemide 40 mg tablet 40 mg PO BID 04/26/22 [History Confirmed 04/26/22] spironolactone 25 mg tablet 25 mg PO BID water pill 04/26/22 [History Confirmed 04/26/22] PFSH Medical History? Abnormal stress test Acute on chronic diastolic (congestive) heart failure Anemia Arthritis Asthma Back problem Chapman's palsy Benign essential hypertension Bone fracture Cataract associated with type 2 diabetes mellitus Chest pain Chest pain, unspecified Diabetes Edema Heart murmur History of left heart catheterization (LHC) (~03/03/20) Hives HTN (hypertension) Hypothyroidism (acquired) Kidney stones Mixed hyperlipidemia Obesity NATALIE (obstructive sleep apnea) Osteoporosis Recurrent UTI 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 2 diabetes mellitus Thyroid disease Vitamin D deficiency Surgical History? Cataract extraction status, left eye Cataract extraction status, right eye H/O arthroscopic knee surgery H/O colonoscopy H/O right heart catheterization H/O sinus surgery H/O thyroidectomy History of back surgery History of left heart catheterization (LHC) History of tonsillectomy History of total abdominal hysterectomy Hx of cholecystectomy Presence of coronary angioplasty implant and graft (~03/13/19) Stented coronary artery (03/13/19) Family History? Mother Diabetes Heart disease Hypertension High cholesterol Kidney disease CancerFather Diabetes Hypertension High cholesterol CancerSister Cancer Social History? Smoking Status:? Never smoker second hand exposure:? No alcohol intake:? never substance use type:? does not use caffeine:? Yes Type: carbonated beverages Number of servings: 1 and tea Number of servings: 1 HPI HPI HPI: DERRELL GERMAN, is a 66 F who presents to the office today for surgical consultation regarding a colonoscopy.? The patient's had a history of PTCA of her coronaries with history of congestive heart failure and hypertension.? She is on clopidogrel and low-dose aspirin.? She has a history of stage III chronic kidney disease.? BMI is 47.? She is diabetic and is managed by Dr. Jorje Marques.? She has obstructive sleep apnea is treated by Dr. Alex Chris.? Primary care physician is Dr. Willard Friedman. Post recent colonoscopy was 2010.? She denies bright red blood per rectum or melena.? She has chronic low back problems.? She had a spinal stimulator in place but it got infected.? She has had problems in the past with glucose [id number] but now is much better managed.? She is awaiting her hemoglobin A1c is dropped below 7.[address] Lopez will replace a spinal stimulator ROS General General: Yes weight change; No appetite, fatigue, colon cancer, breast cancer or weakness Additional Details: Pt trying to lose weight HEENT HEENT: No difficulty swallowing, eye injury, eye surgery, swollen glands or hoarseness Endo Endocrine: Yes thyroid disease and diabetes mellitus; No thyroid cancer, Hair loss, heat intolerance or cold intolerance Skin Skin: No rash or changing moles Musc Musculoskeletal: Yes back problems and arthritis; No rheumatoid arthritis, gout or joint pain Cardio Cardiovascular: Yes heart disease, high blood pressure and heart stent; No murmur, pacemaker, atrial fibrillation, heart attack, palpitations, shortness of breat with exertion or chest pain Psych Psychiatric: No depression, anxiety or hearing voices Resp Respiratory: No shortness of breath, Yes sleep apnea, No cough, No COPD, Yes asthma, No emphysema and No wheezing Gastro Gastrointestinal: No abdominal pain, No nausea or vomiting, No diarrhea, Yes constipation, No blood in stool, Yes acid reflux, Yes hemorrhoids, Yes ulcers, No gallbladder problem and No black,tarry stools Shayne Hematologic: Yes blood thinners, No blood disorders, No bleeding, No anemia and No blood clots Neuro Neurologic: No system reviewed and no additional complaints, except as documented, No as per HPI, No abnormal gait, No abnormal hearing, No abnormal movements, No abnormal speech, No behavioral changes, No burning sensations, No confusion, No convulsions, No disequilibrium, No dizziness, No localized weakness, No frequent falls, No headache(s), No lack of coordination, No loss of vision, No memory loss, No numbness, No other visual disturbances, No radicular pain, No restless legs, No sensory deficit, No syncope, No tingling, No tremor(s), No weakness and No other Exam Const General: cooperative and healthy appearing Nutritional Appearance: obese morbidly obese Orientation: alert and awake [facility] Head: normal to inspection Eyes General: appearance normal, both eyes and all related structures Neck Neck: normal visual inspection Resp Effort & Inspection: normal respiratory effort Auscultation: clear to auscultation bilaterally Cardio Rate: regular rate Rhythm: regular rhythm GI Palpation: soft and no hepatosplenomegaly Auscultation: normal bowel sounds Musc Cervical Spine: normal cervical lordosis Skin Other: Mild nonpitting bilateral extremity edema Neuro General: patient alert, patient awake and patient oriented x3 Extrem General: no calf tenderness Psych Appearance: grossly normal Assessment and Plan Assessment and Plan (1) Screening for intestinal cancer: ?Status:?Acute ?Plan: I recommended the patient a screening colonoscopy with possible biopsy or polypectomy as indicated.? Patient is aware of the technique, benefit, risk and alternatives.? She has had an opportunity ask questions answered.? She is on aspirin and clopidogrel therapy because she has 3 coronary stents.? We will leave her on those medications.? We will utilize monitored anesthesia care because of her medical comorbidities.? We will schedule procedure at her discretion.? I appreciate the opportunity of assisting with her surgical care. Copy: Dr. Willard Guillen M.D., F.A.C.S. I have re-examined the patient. There are no clinical changes since date of exam. Stan Guillen M.D., F.A.C.S.
[2022-05-24] MEDS: Lactated Ringers 1,000 ML 15 ML IV (09:25)
--- NOTE | 2022-05-24 09:59 | SUR.PREOP ---
DR. GASCA SAID IT IS OK TO USE PATIENT'S OWN INTERNAL GLUCOSE MONITOR TO DOCUMENT HER GLUCOSE. BG IS 188.
--- NOTE | 2022-05-24 10:15 | COLBX_PTH ---
PATIENT: DERRELL GERMAN LOC: EN U#:[id number] AGE/SX: 66/F ROOM: RE05/24/[address]: Dr. Stan Guillen MD : 1955 BED: DIS: 05/24/2022 SPEC #: [id number] RECD: 05/24/22 11:06 STATUS: DALLIN TABOR #: [id number] ABNER: 05/24/22 10:[address]: Stan Guillen DEPT: SURGICAL PATHOLOGY RECD BY: Ann Hickey ENTERED: 05/24/22 12:05 SP TYPE: COLON BX OTHR DR: Dr. Willard Friedman MD Tissues: Cecum, NOS Procedures: Surgery Specimen Level IV HEADER OPERATION: Colonoscopy (MAC) with polypectomy PRE-OP DIAGNOSIS: Screening TISSUE SUBMITTED: Cecum polyp MICROSCOPIC DIAGNOSIS Cecal polyp, biopsy: Tubular adenoma. AM:julián 05/25/2022 MICROSCOPIC DESCRIPTION Slides are reviewed. GROSS DESCRIPTION Received in fixative is one container labeled with the patient's name and designated cecum polyp. The specimen consists of one irregular fragment of light galindo soft tissue that measures 0.3 x 0.3 x 0.2 cm. The specimen is totally submitted in one cassette. / SJ:julián 05/24/2022 TC:5 CPT: 49789
--- NOTE | 2022-05-24 10:58 | OP.COLON_ITS ---
Patient Name: Hermelinda Chong Procedure Date: 05/24/2022 10:33 AM Date of : 1955 Age: 66 Procedure: Colonoscopy Indications: Screening for colorectal malignant neoplasm Providers: Stan Guillen MD Referring MD: Willard Friedman MD Medicines: See the Anesthesia note for documentation of the administered medications Patient Profile: Last Colonoscopy: 2010. Complications: No immediate complications. Procedure: Pre-Anesthesia Assessment: - Prior to the procedure, a History and Physical was performed, and patient medications and allergies were reviewed. The patient's tolerance of previous anesthesia was also reviewed. The risks and benefits of the procedure and the sedation options and risks were discussed with the patient. All questions were answered, and informed consent was obtained. Prior Anticoagulants: The patient has taken Plavix (clopidogrel), last dose was 1 day prior to procedure. ASA Grade Assessment: III - A patient with severe systemic disease. After reviewing the risks and benefits, the patient was deemed in satisfactory condition to undergo the procedure. After I obtained informed consent, the scope was passed under direct vision. Throughout the procedure, the patient's blood pressure, pulse, and oxygen saturations were monitored continuously. The adult colonoscope was introduced through the anus and advanced to the cecum, identified by appendiceal orifice and ileocecal valve. The colonoscopy was performed without difficulty. The patient tolerated the procedure well. The quality of the bowel preparation was adequate to identify polyps. The ileocecal valve and the appendiceal orifice were photographed. Scope In: 10:41:11 AM Scope Withdrawal Time 0 hours 7 minutes 26 seconds Scope Out: 10:52:35 AM Total Procedure Duration Time 0 hours 11 minutes 24 seconds Findings: Hemorrhoids were found on perianal exam. A 6 mm polyp was found in the cecum. The polyp was sessile. The polyp was removed with a hot snare. Resection and retrieval were complete. The exam was otherwise without abnormality. Impression: - Hemorrhoids found on perianal exam. - One 6 mm polyp in the cecum, removed with a hot snare. Resected and retrieved. - The examination was otherwise normal. Recommendation: - Discharge patient to home. - Resume previous diet. - Continue present medications. - Repeat colonoscopy in 5 years for surveillance. - Telephone my office for pathology results in 1 week. Procedure Code(s): --- Professional --- 02829, Colonoscopy, flexible; with removal of tumor(s), polyp(s), or other lesion(s) by snare technique Diagnosis Code(s): --- Professional --- Z12.11, Encounter for screening for malignant neoplasm of colon K64.9, Unspecified hemorrhoids D12.0, Benign neoplasm of cecum CPT copyright 2017 [employer]. All rights reserved. The codes documented in this report are preliminary and upon marble cutter review may be revised to meet current compliance requirements. Stan Guillen MD 05/24/2022 10:57:27 AM This report has been signed electronically. Number of Addenda: 0 Note Initiated On: 05/24/2022 10:33 AM
--- NOTE | 2022-05-24 10:59 | OP.CCLET_ITS ---
05/24/2022 Willard Friedman MD Re : Colonoscopy procedure for Hermelinda Chong Dear Dr. Friedman This procedure was performed on Tuesday, May 24, 2022. My impressions and recommendations are as follows: Impressions : - Hemorrhoids found on perianal exam. - One 6 mm polyp in the cecum, removed with a hot snare. Resected and retrieved. - The examination was otherwise normal. Recommendations : - Discharge patient to home. - Resume previous diet. - Continue present medications. - Repeat colonoscopy in 5 years for surveillance. - Telephone my office for pathology results in 1 week. My findings are described in the full procedure note, which is enclosed. If I can be of further assistance, please feel free to contact me at Doctor phone number(s): Work: . Sincerely, Stan Guillen MD 05/24/2022 10:57:27 AM This report has been signed electronically.
== END 2022-05-24 11:50 | disposition home or self-care (01) ==
LOC: EN 09:03 → AC 09:05
PROVIDERS: PCP Family Medicine; Referring Provider Family Medicine; Visit Provider Surgery
PROC: 0DJD8ZZ Inspection of Lower Intestinal Tract, Via Natural or Artificial Opening Endoscopic (ICD-10-PCS; CPT 45378; principal; 2022-05-24 10:10)
DX: Z12.11 Encounter for screening for malignant neoplasm of colon (principal); I13.0 Hypertensive heart and chronic kidney disease with heart failure and stage 1 through stage 4 chronic kidney disease, or unspecified chronic kidney disease; I50.9 Heart failure, unspecified; E11.22 Type 2 diabetes mellitus with diabetic chronic kidney disease; E11.36 Type 2 diabetes mellitus with diabetic cataract; Z68.42 Body mass index [BMI] 45.0-49.9, adult; E66.01 Morbid (severe) obesity due to excess calories; Z79.4 Long term (current) use of insulin; N18.30 Chronic kidney disease, stage 3 unspecified; K64.9 Unspecified hemorrhoids; D12.0 Benign neoplasm of cecum; E03.9 Hypothyroidism, unspecified; G47.33 Obstructive sleep apnea (adult) (pediatric); Z79.02 Long term (current) use of antithrombotics/antiplatelets; Z79.82 Long term (current) use of aspirin; Z79.890 Hormone replacement therapy; Z79.899 Other long term (current) drug therapy; Z96.82 Presence of neurostimulator; Z95.5 Presence of coronary angioplasty implant and graft
CPT/HCPCS: 45385; 88305; J7120; J2405

== ENCOUNTER → 2022-07-19 | Outpatient (CLI) | payer MEDICARE, BC, SELFPAY ==
[2019-03-13 13:12] VITALS: BMI 46.6
[2022-07-19 15:21] LABS: Erythrocyte Sedimentation Rate 27 mm/hr (0-30)
[2022-07-19 15:22] LABS: Hematocrit 40.3 % (37-47); Hemoglobin 12.9 g/dL (12.0-15.0); Mean Corpuscular Hgb 29.3 pg (27.0-32.0); Mean Corpuscular Volume 91.4 fL (81-99); Mean Platelet Vol. 9.2 fl (6.2-12.0); Platelet Count 272 K/mm3 (150-450); RBC Distribution Width CV 14.4 % (11.6-14.6); RBC Distribution Width SD 48.4 fl (35.1-43.9); Red Blood Count 4.41 M/mm3 (4.2-5.4); White Blood Count 8.6 K/mm3 (4.4-11.0)
[2022-07-19 15:44] LABS: BUN 13 mg/dL (7-18); EST Glomerular Filtration Rate 53 mL/min (>60); Est Glom Filt Rate - Afr Amer 64 mL/min (>60)
== END | disposition home or self-care (01) ==
PROVIDERS: PCP Family Medicine
DX: T81.49XD Infection following a procedure, other surgical site, subsequent encounter (principal); M51.36 Other intervertebral disc degeneration, lumbar region; M48.062 Spinal stenosis, lumbar region with neurogenic claudication; M48.04 Spinal stenosis, thoracic region; M46.40 Discitis, unspecified, site unspecified
CPT/HCPCS: 36415; 82565; 84520; 85027; 85652; 86140

== ENCOUNTER → 2022-07-22 | Outpatient (CLI) | payer MEDICARE, BC, SELFPAY ==
[2019-03-13 13:12] VITALS: BMI 46.6
[2022-07-22 13:47] VITALS: BP 136/56; PULSE 79; RESP 16; TEMP 36; O2SAT 97
[2022-07-22] MEDS: DENOSUMAB 60 MG/ML SC (13:53)
== END | disposition home or self-care (01) ==
LOC: MEDOUTP 13:22
PROVIDERS: PCP Family Medicine; Referring Provider Internal Medicine Endocrinology, Diabetes & Metabolism; Visit Provider Internal Medicine Endocrinology, Diabetes & Metabolism
DX: M81.0 Age-related osteoporosis without current pathological fracture (principal)
CPT/HCPCS: 96372; J0897

== ENCOUNTER → 2022-10-25 | Outpatient (CLI) | payer MEDICARE, BC, SELFPAY ==
[2019-03-13 13:12] VITALS: BMI 46.6
--- NOTE | 2022-10-25 12:14 | CT_ITS ---
STUDY: CT LUMBAR SPINE WITHOUT CONTRAST REASON FOR EXAM: Female, 66 years old. SPINAL STENOSIS RADIATION DOSAGE (If Supplied By Facility): CTDIvol = ( 49.02 ) mGy, DLP = ( 1657.24 ) mGycm TECHNIQUE: The patient was scanned in a multi detector CT scanner. High resolution transaxial imaging was performed. Images were obtained from T12 to S1 vertebral level. Sagittal and coronal images were reconstructed. Individualized dose optimization techniques were used for this CT. COMPARISON: None FINDINGS: Atherosclerotic calcification of the splenic artery. Normal lumbar lordosis. There is no substantial scoliosis. Minimal loss of height of the superior endplate of the L1 vertebrae. L1-2: Spondylosis. Mild degree of disc space narrowing. Mild degree of central canal stenosis due to mild disc bulging. L2-3: Mild degree of spondylolisthesis. No significant stenosis seen. L3-4: Mild degree of anterior spondylosis. Minimal degree of central canal stenosis due to diffuse posterior disc bulge. L4-5: Moderate degree of disc space narrowing and disc degeneration. There is evidence of a marked degree of central canal stenosis due to hypertrophy of the facet joints as well as the ligamenta flava and diffuse posterior disc bulge. L5-S1: Marked degree of disc space narrowing and disc degeneration. Minimal retrolisthesis of L5 on S1. Moderate degree of central canal stenosis. Atherosclerotic calcific plaques of the abdominal aorta. CT/Spine Lumbar without Contrast IMPRESSION: Multilevel degenerative changes, as described above. Spinal stenosis at the L4-L5 and L5-S1 levels. The spinal stenosis is more prominent at the L4-L5 level. Electronically Signed: Cliff Horowitz MD at 15:17 EST ,
== END | disposition home or self-care (01) ==
LOC: CT 12:12
PROVIDERS: PCP Family Medicine
DX: M51.36 Other intervertebral disc degeneration, lumbar region (principal); M48.062 Spinal stenosis, lumbar region with neurogenic claudication; M48.04 Spinal stenosis, thoracic region; M43.16 Spondylolisthesis, lumbar region; M51.27 Other intervertebral disc displacement, lumbosacral region
CPT/HCPCS: 72131

== ENCOUNTER 2023-01-20 13:23 | Outpatient (CLI) | payer MEDICARE, BC, SELFPAY ==
[2019-03-13 13:12] VITALS: BMI 46.6
[2023-01-20] MEDS: DENOSUMAB 60 MG/ML SC (13:30)
[2023-01-20 13:33] VITALS: BP 161/67; PULSE 80; RESP 18; O2SAT 95; BMI 44.8
== END 2023-01-20 13:24 | disposition home or self-care (01) ==
LOC: MEDOUTP 13:23
PROVIDERS: PCP Family Medicine; Referring Provider Internal Medicine Endocrinology, Diabetes & Metabolism; Visit Provider Internal Medicine Endocrinology, Diabetes & Metabolism
DX: M81.0 Age-related osteoporosis without current pathological fracture (principal)
CPT/HCPCS: 96372; J0897

== ENCOUNTER → 2023-02-02 | Outpatient (CLI) | payer MEDICARE, BC, SELFPAY ==
[2019-03-13 13:12] VITALS: BMI 46.6
[2023-02-02 18:21] LABS: Absolute Lymphocyte Count 2.15 X10^3/uL (0.83-4.51); Absolute Neutrophil Count 7.4 X10^3/uL (2.0-7.7); Basophil# 0.05 X10^3/uL; Basophil% 0.5 % (0-1); Eosinophil# 0.08 X10^3/uL; Eosinophils% 0.8 % (0-5); Hematocrit 42.4 % (37-47); Hemoglobin 13.1 g/dL (12.0-15.0); Lymphocyte # 2.15 X10^3/ul (0.83-4.51); Lymphocyte % 20.4 % (19-41); Mean Corp Hgb Conc 30.9 g/dL (32-36); Mean Corpuscular Hgb 27.5 pg (27.0-32.0); Mean Corpuscular Volume 88.9 fL (81-99); Mean Platelet Vol. 9.2 fl (6.2-12.0); Monocyte# 0.77 X10^3/uL; Monocyte% 7.3 % (0-10); NRBC Flagged by Analyzer 0 % (0-5); Neutrophil # 7.42 X10^3/uL (2.7-7.7); Neutrophil % 70.4 % (47-70); Platelet Count 292 K/mm3 (150-450); RBC Distribution Width CV 13.6 % (11.6-14.6); RBC Distribution Width SD 44.3 fl (35.1-43.9); Red Blood Count 4.77 M/mm3 (4.2-5.4); White Blood Count 10.5 K/mm3 (4.4-11.0)
[2023-02-02 19:12] LABS: ALB/GLOB Ratio 0.9 RATIO (0.9-2.4); AST(SGOT) 22 U/L (15-37); Alanine Aminotransfer ALT/SGPT 21 U/L (13-56); Albumin, Serum 3.5 g/dL (3.2-5.0); Alkaline Phosphatase 107 U/L (45-117); Anion Gap 9 (5-15); BUN 13 mg/dL (7-18); BUN/Creat Ratio 11.9 RATIO (10-20); Calcium,Total 8.5 mg/dL (8.5-10.1); Chloride 104 mmol/L (98-107); Cholesterol 131 mg/dL (200); Creatinine, Serum 1.09 mg/dL (0.55-1.02); EST Glomerular Filtration Rate 53 mL/min (>60); Est Glom Filt Rate - Afr Amer 64 mL/min (>60); Glucose 96 mg/dL (74-106); High Density Lipoprotein 46 mg/dL; Potassium 3.9 mmol/L (3.5-5.1); Protein, Total 7.5 g/dL (6.4-8.2); Sodium Level 139 mmol/L (136-145); Thyroid Stim Hormone (TSH) 0.02 uIU/mL (0.358-3.74); Triglycerides 126 mg/dL; Very Low Density Lipoprotein 25 mg/dL (5-40)
[2023-02-02 19:18] LABS: Microalbumin,Random Urine 20.9 mg/L (NO RANGE EST.); Microalbumin:Creatinine Ratio 24.4 mg/g CRE (<30 mg/g CRE)
[2023-02-02 19:43] LABS: Hemoglobin A1c 7.6 % (3.8-5.6)
== END | disposition home or self-care (01) ==
PROVIDERS: PCP Family Medicine; Referring Provider Internal Medicine Endocrinology, Diabetes & Metabolism; Visit Provider Internal Medicine Endocrinology, Diabetes & Metabolism
DX: I25.10 Atherosclerotic heart disease of native coronary artery without angina pectoris (principal); E11.22 Type 2 diabetes mellitus with diabetic chronic kidney disease; E11.36 Type 2 diabetes mellitus with diabetic cataract; N18.30 Chronic kidney disease, stage 3 unspecified; E03.9 Hypothyroidism, unspecified; E66.9 Obesity, unspecified; R06.09 Other forms of dyspnea
CPT/HCPCS: 36415; 80053; 80061; 82043; 82570; 83036; 84443; 85025

== ENCOUNTER → 2023-05-09 | Outpatient (CLI) | payer MEDICARE, BC, SELFPAY ==
[2019-03-13 13:12] VITALS: BMI 46.6
== END | disposition home or self-care (01) ==
LOC: SL 14:06
PROVIDERS: PCP Family Medicine; Referring Provider Internal Medicine Critical Care Medicine; Visit Provider Internal Medicine Critical Care Medicine
DX: G47.33 Obstructive sleep apnea (adult) (pediatric) (principal)
CPT/HCPCS: 98960; G0463

== ENCOUNTER 2023-07-21 13:20 | Outpatient (CLI) | payer MEDICARE, BC, SELFPAY ==
[2019-03-13 13:12] VITALS: BMI 46.6
[2023-07-21 13:38] VITALS: BP 128/63; PULSE 68; RESP 16; TEMP 35.9; O2SAT 100; BMI 43.9
[2023-07-21] MEDS: DENOSUMAB 60 MG/ML SC (13:41)
== END 2023-07-21 13:21 | disposition home or self-care (01) ==
LOC: MEDOUTP 13:20
PROVIDERS: PCP Family Medicine; Referring Provider Internal Medicine Endocrinology, Diabetes & Metabolism; Visit Provider Internal Medicine Endocrinology, Diabetes & Metabolism
DX: M81.0 Age-related osteoporosis without current pathological fracture (principal)
CPT/HCPCS: 96372; J0897

== ENCOUNTER → 2023-10-10 | Outpatient (CLI) | payer MEDICARE, BC, SELFPAY ==
[2019-03-13 13:12] VITALS: BMI 46.6
[2023-10-10 14:59] LABS: Bacteria 0 SEEN /hpf (None Seen); Mucous, Urine 0 SEEN /hpf (<or=2+); Red Blood Cells-Urine 0 SEEN /hpf (0-5); White Blood Cells 0 SEEN /hpf (0-5)
[2023-10-10 17:39] LABS: Absolute Lymphocyte Count 1.95 X10^3/uL (0.83-4.51); Absolute Neutrophil Count 6.8 X10^3/uL (2.0-7.7); Basophil# 0.09 X10^3/uL; Basophil% 0.9 % (0-1); Eosinophil# 0.13 X10^3/uL; Eosinophils% 1.3 % (0-5); Hematocrit 44.3 % (37-47); Hemoglobin 13.7 g/dL (12.0-15.0); Lymphocyte # 1.95 X10^3/ul (0.83-4.51); Lymphocyte % 19.8 % (19-41); Mean Corp Hgb Conc 30.9 g/dL (32-36); Mean Corpuscular Hgb 26.7 pg (27.0-32.0); Mean Corpuscular Volume 86.4 fL (81-99); Mean Platelet Vol. 9.5 fl (6.2-12.0); Monocyte# 0.81 X10^3/uL; Monocyte% 8.2 % (0-10); NRBC Flagged by Analyzer 0 % (0-5); Neutrophil # 6.83 X10^3/uL (2.7-7.7); Neutrophil % 69.3 % (47-70); Platelet Count 295 K/mm3 (150-450); RBC Distribution Width CV 14.9 % (11.6-14.6); RBC Distribution Width SD 47.2 fl (35.1-43.9); Red Blood Count 5.13 M/mm3 (4.2-5.4); White Blood Count 9.9 K/mm3 (4.4-11.0)
[2023-10-10 17:57] LABS: Vitamin D,25 Hydroxy 49.9 ng/mL
[2023-10-10 18:00] LABS: AST(SGOT) 22 U/L (15-37); Alanine Aminotransfer ALT/SGPT 29 U/L (13-56); Albumin, Serum 3.9 g/dL (3.2-5.0); Alkaline Phosphatase 101 U/L (45-117); Anion Gap 5 (5-15); BUN 21 mg/dL (7-18); BUN/Creat Ratio 17.4 RATIO (10-20); Calcium,Total 9.7 mg/dL (8.5-10.1); Chloride 102 mmol/L (98-107); Cholesterol 126 mg/dL (200); Creatinine, Serum 1.21 mg/dL (0.55-1.02); EST Glomerular Filtration Rate 47 mL/min (>60); Est Glom Filt Rate - Afr Amer 57 mL/min (>60); Glucose 208 mg/dL (74-106); High Density Lipoprotein 46 mg/dL; Potassium 3.8 mmol/L (3.5-5.1); Protein, Total 7.9 g/dL (6.4-8.2); Sodium Level 134 mmol/L (136-145); T4 Free Direct 1.57 ng/dL (0.76-1.46); Thyroid Stim Hormone (TSH) 0.75 uIU/mL (0.358-3.74); Triglycerides 148 mg/dL; Very Low Density Lipoprotein 30 mg/dL (5-40)
[2023-10-10 18:26] LABS: Color, Urine Yellow (Yellow); Glucose, Dipstick 1000 mg/dl (Normal); Ketone-Dipstick Negative (Negative); Leukocyte Esterase-Dipstick Negative /ul (Negative); Nitrite-Dipstick Negative (Negative); Occult Blood-Urine 10 /ul (Negative); Protein-Dipstick 15 mg/dl (Negative); Urine Bilirubin Dipstick Negative (Negative); Urine Clarity Clear (Clear); Urine Urobilinogen Normal (Normal)
[2023-10-10 18:33] LABS: Squamous Epithelial Cells - UA 0-5 SEEN /hpf (5-10)
[2023-10-10 18:47] LABS: Microalbumin,Random Urine 31.6 mg/L (NO RANGE EST.); Microalbumin:Creatinine Ratio 62.2 mg/g CRE (<30 mg/g CRE)
== END | disposition home or self-care (01) ==
LOC: MTLAB 14:56
PROVIDERS: PCP Family Medicine; Referring Provider Internal Medicine Endocrinology, Diabetes & Metabolism; Visit Provider Internal Medicine Endocrinology, Diabetes & Metabolism
DX: R06.09 Other forms of dyspnea (principal); E11.22 Type 2 diabetes mellitus with diabetic chronic kidney disease; N18.30 Chronic kidney disease, stage 3 unspecified; I25.10 Atherosclerotic heart disease of native coronary artery without angina pectoris; E03.9 Hypothyroidism, unspecified; I12.9 Hypertensive chronic kidney disease with stage 1 through stage 4 chronic kidney disease, or unspecified chronic kidney disease; M81.0 Age-related osteoporosis without current pathological fracture; E66.9 Obesity, unspecified; E55.9 Vitamin D deficiency, unspecified; E78.2 Mixed hyperlipidemia; R30.0 Dysuria
CPT/HCPCS: 36415; 80053; 80061; 81001; 82043; 82306; 82570; 84439; 84443; 85025; 87086; 87088

== ENCOUNTER 2023-10-13 15:00 | Outpatient (RCR) | payer MEDICARE, BC, SELFPAY ==
[2019-03-13 13:12] VITALS: BMI 46.6
--- NOTE | 2023-04-21 15:03 | HP.PTEVAL_ITS ---
Patient's Visit Information Visit Information Visit Information: DERRELL GERMAN is a 67 year old F referred to Physical Therapy by ANDREA CARVALHO with a diagnosis of SPINAL STENOSIS ,LUMBAR REGION. Date of Evaluation: 04/21/23 Physical Therapist: Stevenson Chi, PT, Cert MDT, OCS Visit Plan Frequency: 2x /Week Duration: 2 Months Plan: PT INTERVENTIONS GAIT AND BALANCE TRAINING , POSTURAL EX'S ,DLS ,BLE STRENGTHENING ,LUMBAR ROM AND FUNCTIONAL STRENGTHENING Subjective Subjective: This 67 y/o female presents to physical therapy with lumbar fusion. Patient underwent s/p Left L4-S1 TLIF and L4-S1 with instrumentation and decompression 02/23/[address] Sandoval and [facility] . Patient was d/c ~ 3days with fww and brace. Patient seen ~ 2weeks Apr 10 and did x-rays looked good. Patient has no precautions. Patient has had back pain with right hip pain many years . Patient tried PT and Aquatics. Patient tried pain management .Tried pain spinal stimulator which helped but got infected . Patient had prior to surgery showed spinal stenosis. Patient conts to FWW min distance w/o in house. Patient has min pain just occasional muscle spams. Denies paresthesia/tingling -. Bowel/bladder-. Patient sleeping good. Aggravating factors walking extended distances and standing long. Alleviating factors rest seated. Medication : Oxycodone, hydrocodone ,muscle relaxer and gabapentin. Patient condition affects QOL and function . Patient goals walk and get stronger. SOCIAL: VOCATION: retired Objective Objective: POSTURE: mild forward posture NEURO: denies paresthesia/tingling ,reflexes L3-4,L4-5 ,L5-S1 1/3 PALPATION: tender paraspinals -lumbar GAIT: ambulates with fww reciprocal pattern slow nani mild forward posture MMT: ( peak force) quads R 14.6 ,L 15.2 ,hamstrings L 12.6 ,R 12.9 ,hip flexion R 10.6 ,L 9.8 ,ankle 4/5 LUMBAR ROM: flexion mod loss ,extension mod loss ,side glides min loss FLEXABLITY: hamstrings WFL Special Tests L/S Slump test left side: Negative L/S Slump test right side: Negative L/S Left Straight Leg Raise: Negative L/S Right Straight Leg Raise: Negative Balance/Special Test Scores Oswestry Low Back Score: 31 Goals Goal 1:: Patient to be I with HEP for back Goal Time Frame: 4-6 Weeks Goal 2:: Patient to ambulate with straight cane community distances with improve gait pattern Goal Time Frame: 4-6 Weeks Goal 3:: Patient to improve lumbar ROM for function of recovery to tie shoes Goal Time Frame: 4-6 Weeks Goal 4:: Patient to improve peak force of quads/hams/hip by 5-10 # strength to improve gait Goal Time Frame: 4-6 Weeks Goal 5:: Patient to improve back oswestry score by 5-10 points improve function Goal Time Frame: 4-6 Weeks Rehabilitation Potential Physical Therapy Diagnosis: This patient underwent s/p lumbar fusion 02/03/23 with decrease gait ,weakness BLE ,decrease Lumbar ROM ,impairs function and ADLS' thus benefit from skilled PT Rehabilitation Potential: Good Anticipated Interventions Patient/Client Instruction: Educate patient on: Condition and Plan of Care For the Purpose of:: To decrease pain, To increase ROM, To improve muscle performance and motor function, To improve ability to perform ADL's, To increase tolerance to activity/condition/position, To improve ability of physical actions for home/community/work/leisure, To improve health of tissue, To decrease soft tissue restriction, To increase flexibility/ROM, To improve endurance, To improve balance, To reduce risk of recurrence and To improve health and function Therapeutic Exercise to Include: Strength training, Endurance training, Balance training, Active ROM, Dynamic Lumbar Stabilization and Juliocesar Exercises Comment: BLE For the Purpose of:: To decrease pain, To increase ROM, To improve muscle performance and motor function, To improve ability to perform ADL's, To increase tolerance to activity/condition/position, To improve ability of physical actions for home/community/work/leisure, To improve gait and locomotor functions, To improve health of tissue, To decrease soft tissue restriction, To increase flexibility/ROM and To improve tolerance to ADL's For the Purpose of:: To improve performance and independence with ADL's and To decrease level of supervision to perform tasks Text: Thank you for the opportunity to evaluate your patient. For Medicare and Medicare HMO plans, please review the plan of care and approve it. It will need to be FAXED BACK to us at [phone] for Medicare purposes. For Medicare only, by signing this I certify the plan of care. Please let me know if there are questions or concerns regarding this plan of care. Physician Signature: Date:
--- NOTE | 2023-06-09 15:21 | HP.PTREVAL_ITS ---
Re-Evaluation Intro: ANDREA CARVALHO, It has been my pleasure to treat DERRELL GERMAN over the last 11 visits for SPINAL STENOSIS ,LUMBAR REGION. Please see the progress note below for an update on the physical therapy plan of care! Subjective Subjective: Patient doing better overall Seen DR So 25b Doing well happy with progress Patient is walking better Objective Objective/Function: Objective: POSTURE: mild forward posture NEURO: denies paresthesia/tingling ,reflexes L3-4,L4-5 ,L5-S1 1/3 PALPATION: tender paraspinals -lumbar GAIT: ambulates with fww reciprocal pattern slow nani mild forward posture MMT: ( peak force) quads L 21.9 ,R 22.2 ,hamstrings L 15.3 ,R 13.9 ,hip flexion R 28.6 ,L 9.8 ,ankle 4/5 LUMBAR ROM: flexion mod loss ,extension mod loss ,side glides min loss FLEXABLITY: hamstrings WFL Plan Plan Plan: CONT WITH POC PT INTERVENTIONS GAIT AND BALANCE TRAINING , POSTURAL EX'S ,DLS ,BLE STRENGTH ENING ,LUMBAR ROM AND FUNCTIONAL STRENGTHENING. Balance/Gait/Functional tests Balance/Special Test Scores Oswestry Low Back Score: 31 Goals Goals Goal 1:: Patient to be I with HEP for back Goal Time Frame: 4-6 Weeks Goal Progress: Progressing Goal 2:: Patient to ambulate with straight cane community distances with improve gait pattern Goal Time Frame: 4-6 Weeks Goal Progress: Progressing Goal 3:: Patient to improve lumbar ROM for function of recovery to tie shoes Goal Time Frame: 4-6 Weeks Goal Progress: Progressing Goal 4:: Patient to improve peak force of quads/hams/hip by 5-10 # strength to improve gait Goal Time Frame: 4-6 Weeks Goal 5:: Patient to improve back oswestry score by 5-10 points improve function Goal Time Frame: 4-6 Weeks Goal Progress: Progressing Anticipated Interventions Anticipated Interventions Patient/Client Instruction: Educate patient on: Condition and Plan of Care For the Purpose of:: To decrease pain, To increase ROM, To improve muscle performance and motor function, To improve ability to perform ADL's, To increase tolerance to activity/condition/position, To improve ability of physical actions for home/community/work/leisure, To improve health of tissue, To decrease soft tissue restriction, To increase flexibility/ROM, To improve endurance, To improve balance, To reduce risk of recurrence and To improve health and function Therapeutic Exercise to Include: Strength training, Endurance training, Balance training, Active ROM, Dynamic Lumbar Stabilization and Juliocesar Exercises Comment: BLE For the Purpose of:: To decrease pain, To increase ROM, To improve muscle performance and motor function, To improve ability to perform ADL's, To increase tolerance to activity/condition/position, To improve ability of physical actions for home/community/work/leisure, To improve gait and locomotor functions, To improve health of tissue, To decrease soft tissue restriction, To increase flexibility/ROM and To improve tolerance to ADL's For the Purpose of:: To improve performance and independence with ADL's and To decrease level of supervision to perform tasks Re-Evaluation Ending Re-evaluation ending: Please do not hesitate to contact me at [phone] by phone or if you have questions or concerns regarding this new plan of care! Sincerely, Stevenson Chi, PT, Cert MDT, OCS
--- NOTE | 2023-07-14 15:21 | HP.PTREVAL ---
Re-Evaluation Intro: ANDREA CARVALHO, It has been my pleasure to treat DERRELL GERMAN over the last 19 visits for SPINAL STENOSIS ,LUMBAR REGION. Please see the progress note below for an update on the physical therapy plan of care! Subjective Subjective: Patient making progress with function and gait more ADLS and walking with cane Discussed with patient need new order Objective Objective/Function: Objective: POSTURE: mild forward posture leg length discrepancy NEURO: denies paresthesia/tingling ,reflexes L3-4,L4-5 ,L5-S1 1/3 PALPATION: tender paraspinals -lumbar GAIT: ambulates with fww reciprocal pattern slow nani mild forward posture in PT dept ,ambulates with cane straight cane 2 point pattern slow nani Trendelenburg lateral sway MMT: ( peak force) quads L 24.9 ,R 25.5 ,hamstrings L 25.3 ,R 24.9 ,hip flexion R 31.6 ,L 34.1 ,ankle 4/5 LUMBAR ROM: flexion mod loss ,extension mod loss ,side glides min loss FLEXABLITY: hamstrings WFL Plan Plan Plan: CONT WITH POC PT INTERVENTIONS GAIT AND BALANCE TRAINING , POSTURAL EX'S ,DLS ,BLE STRENGTHENING ,LUMBAR ROM AND FUNCTIONAL STRENGTHENING. Balance/Gait/Functional tests Balance/Special Test Scores Oswestry Low Back Score: 27 Goals Goals Goal 1:: Patient to be I with HEP for back Goal Time Frame: 4-6 Weeks Goal Progress: Progressing Goal 2:: Patient to ambulate with straight cane community distances with improve gait pattern Goal Time Frame: 4-6 Weeks Goal Progress: Progressing Goal 3:: Patient to improve lumbar ROM for function of recovery to tie shoes Goal Time Frame: 4-6 Weeks Goal Progress: Progressing Goal 4:: Patient to improve peak force of quads/hams/hip by 5-10 # strength to improve gait Goal Time Frame: 4-6 Weeks Goal Progress: ( new goal) Goal 5:: Patient to improve back oswestry score by 5-10 points improve function Goal Time Frame: 4-6 Weeks Goal Progress: ( new goal) Anticipated Interventions Anticipated Interventions Patient/Client Instruction: Educate patient on: Condition and Plan of Care For the Purpose of:: To decrease pain, To increase ROM, To improve muscle performance and motor function, To improve ability to perform ADL's, To increase tolerance to activity/condition/position, To improve ability of physical actions for home/community/work/leisure, To improve health of tissue, To decrease soft tissue restriction, To increase flexibility/ROM, To improve endurance, To improve balance, To reduce risk of recurrence and To improve health and function Therapeutic Exercise to Include: Strength training, Endurance training, Balance training, Active ROM, Dynamic Lumbar Stabilization and Juliocesar Exercises Comment: BLE For the Purpose of:: To decrease pain, To increase ROM, To improve muscle performance and motor function, To improve ability to perform ADL's, To increase tolerance to activity/condition/position, To improve ability of physical actions for home/community/work/leisure, To improve gait and locomotor functions, To improve health of tissue, To decrease soft tissue restriction, To increase flexibility/ROM and To improve tolerance to ADL's For the Purpose of:: To improve performance and independence with ADL's and To decrease level of supervision to perform tasks Re-Evaluation Ending Re-evaluation ending: Please do not hesitate to contact me at [phone] by phone or if you have questions or concerns regarding this new plan of care! Sincerely, Stevenson Chi, PT, Cert MDT, OCS
--- NOTE | 2023-08-25 15:19 | HP.PTREVAL ---
Re-Evaluation Intro: ANDREA CARVALHO, It has been my pleasure to treat DERRELL GERMAN over the last 27 visits for SPINAL STENOSIS ,LUMBAR REGION. Please see the progress note below for an update on the physical therapy plan of care! Subjective Subjective: Patient progressing with walking to no device occasionally Does have knee pain ,no back pain RTD next week Objective Objective/Function: Function: Objective: POSTURE: mild forward posture leg length discrepancy NEURO: denies paresthesia/tingling ,reflexes L3-4,L4-5 ,L5-S1 1/3 PALPATION: tender paraspinals -lumbar GAIT: ambulates with fww reciprocal pattern slow nani mild forward posture in PT d,ambulates with cane straight cane 2 point pattern slow nani occassional without at home MMT: ( peak force) quads L 25.1 ,R 26.1 ,hamstrings L 25.9 ,R 25.4 ,hip flexion R 33.6 ,L 35.1 ,ankle 4/5 LUMBAR ROM: flexion min loss ,extension mod loss ,side glides min loss FLEXABLITY: hamstrings WFL Plan Plan Plan: CONT WITH POC 2x week for 4weeks PT INTERVENTIONS GAIT AND BALANCE TRAINING , POSTURAL EX'S ,DLS ,BLE STRENGTHENING ,LUMBAR ROM AND FUNCTIONAL STRENGTHENING. Balance/Gait/Functional tests Balance/Special Test Scores Oswestry Low Back Score: 20 Goals Goals Goal 1:: Patient to be I with HEP for back Goal Time Frame: 4-6 Weeks Goal Progress: Progressing Goal 2:: Patient to ambulate with straight cane community distances with improve gait pattern Goal Time Frame: 4-6 Weeks Goal Progress: Progressing Goal 3:: Patient to improve lumbar ROM for function of recovery to tie shoes Goal Time Frame: 4-6 Weeks Goal Progress: Progressing Goal 4:: Patient to improve peak force of quads/hams/hip by 5-10 # strength to improve gait Goal Time Frame: 4-6 Weeks Goal Progress: ( new goal) Goal 5:: Patient to improve back oswestry score by 5-10 points improve function Goal Time Frame: 4-6 Weeks Goal Progress: ( new goal) Anticipated Interventions Anticipated Interventions Patient/Client Instruction: Educate patient on: Condition and Plan of Care For the Purpose of:: To decrease pain, To increase ROM, To improve muscle performance and motor function, To improve ability to perform ADL's, To increase tolerance to activity/condition/position, To improve ability of physical actions for home/community/work/leisure, To improve health of tissue, To decrease soft tissue restriction, To increase flexibility/ROM, To improve endurance, To improve balance, To reduce risk of recurrence and To improve health and function Therapeutic Exercise to Include: Strength training, Endurance training, Balance training, Active ROM, Dynamic Lumbar Stabilization and Juliocesar Exercises Comment: BLE For the Purpose of:: To decrease pain, To increase ROM, To improve muscle performance and motor function, To improve ability to perform ADL's, To increase tolerance to activity/condition/position, To improve ability of physical actions for home/community/work/leisure, To improve gait and locomotor functions, To improve health of tissue, To decrease soft tissue restriction, To increase flexibility/ROM and To improve tolerance to ADL's For the Purpose of:: To improve performance and independence with ADL's and To decrease level of supervision to perform tasks Re-Evaluation Ending Re-evaluation ending: Please do not hesitate to contact me at [phone] by phone or if you have questions or concerns regarding this new plan of care! Sincerely, Stevenson Chi, PT, Cert MDT, OCS
--- NOTE | 2023-10-03 15:29 | HP.PTREVAL ---
Re-Evaluation Intro: ANDREA CARVALHO, It has been my pleasure to treat DERRELL GERMAN over the last 33 visits for SPINAL STENOSIS ,LUMBAR REGION. Please see the progress note below for an update on the physical therapy plan of care! Subjective Subjective: Has new order to continue. Pain is better just get stronger Objective Objective/Function: Objective: POSTURE: mild forward posture leg length discrepancy NEURO: denies paresthesia/tingling ,reflexes L3-4,L4-5 ,L5-S1 1/3 PALPATION: tender paraspinals -lumbar GAIT: ambulates with fww reciprocal pattern slow nani mild forward posture in PT ambulates with cane straight cane 2 point pattern slow nani MMT: ( peak force) quads L 25.9 ,R 26.2 ,hamstrings L 24.9 ,R 25.6 ,hip flexion R 37.6 ,L 45.1 ,ankle 4/5 LUMBAR ROM: flexion min loss ,extension mod loss ,side glides min loss FLEXABLITY: hamstrings WFL Plan Plan Plan: CONT WITH POC 2x week for 4weeks PT INTERVENTIONS GAIT AND BALANCE TRAINING , POSTURAL EX'S ,DLS ,BLE STRENGTHENING ,LUMBAR ROM AND FUNCTIONAL STRENGTHENING. Balance/Gait/Functional tests Balance/Special Test Scores Oswestry Low Back Score: 19 Goals Goals Goal 1:: Patient to be I with HEP for back Goal Time Frame: 4-6 Weeks Goal Progress: Progressing Goal 2:: Patient to ambulate with straight cane community distances with improve gait pattern Goal Time Frame: 4-6 Weeks Goal Progress: Progressing Goal 3:: Patient to improve lumbar ROM for function of recovery to tie shoes Goal Time Frame: 4-6 Weeks Goal Progress: Progressing Goal 4:: Patient to improve peak force of quads/hams/hip by 5-10 # strength to improve gait Goal Time Frame: 4-6 Weeks Goal Progress: Progressing Goal 5:: Patient to improve back oswestry score by 5-10 points improve function Goal Time Frame: 4-6 Weeks Goal Progress: Progressing Anticipated Interventions Anticipated Interventions Patient/Client Instruction: Educate patient on: Condition and Plan of Care For the Purpose of:: To decrease pain, To increase ROM, To improve muscle performance and motor function, To improve ability to perform ADL's, To increase tolerance to activity/condition/position, To improve ability of physical actions for home/community/work/leisure, To improve health of tissue, To decrease soft tissue restriction, To increase flexibility/ROM, To improve endurance, To improve balance, To reduce risk of recurrence and To improve health and function Therapeutic Exercise to Include: Strength training, Endurance training, Balance training, Active ROM, Dynamic Lumbar Stabilization and Juliocesar Exercises Comment: BLE For the Purpose of:: To decrease pain, To increase ROM, To improve muscle performance and motor function, To improve ability to perform ADL's, To increase tolerance to activity/condition/position, To improve ability of physical actions for home/community/work/leisure, To improve gait and locomotor functions, To improve health of tissue, To decrease soft tissue restriction, To increase flexibility/ROM and To improve tolerance to ADL's For the Purpose of:: To improve performance and independence with ADL's and To decrease level of supervision to perform tasks Re-Evaluation Ending Re-evaluation ending: Please do not hesitate to contact me at [phone] by phone or if you have questions or concerns regarding this new plan of care! Sincerely, Stevenson Chi, PT, Cert MDT, OCS
== END 2023-10-13 19:00 | disposition home or self-care (01) ==
LOC: PT 15:00
PROVIDERS: PCP Family Medicine
DX: M48.062 Spinal stenosis, lumbar region with neurogenic claudication (principal)
CPT/HCPCS: 97110; 97162; 97530

== ENCOUNTER → 2023-10-25 | Outpatient (CLI) | payer MEDICARE, BC, SELFPAY ==
[2019-03-13 13:12] VITALS: BMI 46.6
== END | disposition home or self-care (01) ==
LOC: LAB 12:05
PROVIDERS: PCP Family Medicine; Referring Provider Physician Assistant Medical; Visit Provider Physician Assistant Medical
DX: R06.09 Other forms of dyspnea (principal)
CPT/HCPCS: 36415; 83880

== ENCOUNTER → 2023-11-22 | Outpatient (CLI) | payer MEDICARE, BC, SELFPAY ==
[2019-03-13 13:12] VITALS: BMI 46.6
--- NOTE | 2023-11-22 13:46 | ECHOCS_ITS ---
Reason For Study: Dyspnea/SOB Procedure This was a 2D Doppler, Color Flow transthoracic echocardiogram. The study was technically difficult. Contrast injection was performed. Exam performed in department. Left Ventricle Normal LV size. Left ventricular systolic function is normal. The estimated ejection fraction is 60 %. Stage 1 diastolic dysfunction. No regional wall motion abnormalities noted. Right Ventricle Normal RV size. Normal systolic function. Atria Normal left atrium. Mitral Valve Normal mitral valve. Aortic Valve Trisinus/trileaflet aortic valve. Pulmonic Valve The pulmonic valve is not well visualized. Great Vessels Normal aortic root. The pulmonary artery is normal size. Normal inferior vena cava. Pericardium/Pleural No pericardial effusion. Medication 22 gauge I.V. with prn adaptor inserted into left arm. Diluted definity 4ml given slow IV push to enhance endocardial definition. MMode/2D Measurements & Calculations LVIDd: 4.1 cm IVSd: 1.2 cm Ao root diam: 2.8 cm LVIDs: 3.0 cm LVPWd: 1.0 cm LA dimension: 4.4 cm FS: 27.6 % LAV(MOD-bp): 57.6 ml LVAd ap4: 23.8 cm2 SV(MOD-sp4): 35.8 ml LAV(MOD-bp) Indexed: 26.8 ml/m2 LVLd ap4: 7.6 cm LAV(MOD-sp2): 59.9 ml EDV(MOD-sp4): 61.1 ml LAV(MOD-sp4): 53.1 ml EDV(sp4-el): 63.4 ml LVAs ap4: 13.2 cm2 LVLs ap4: 5.7 cm ESV(MOD-sp4): 25.3 ml ESV(sp4-el): 26.1 ml EF(MOD-sp4): 58.6 % EF(sp4-el): 58.8 % SV(sp4-el): 37.3 ml LA A4 area: 18.7 cm2 RA A4 area: 14.1 cm2 Time Measurements MV dec time: 0.27 sec Doppler Measurements & Calculations MV E max jonathan: 84.0 cm/sec Lat Peak E' Jonathan: 8.9 cm/sec Med Peak E' Jonathan: 7.6 cm/sec MV A max jonathan: 127.9 cm/sec E/E' lat: 9.5 E/E' med: 11.1 MV E/A: 0.66 MV V2 max: 162.2 cm/sec MV P1/2t max jonathan: 126.5 cm/sec Ao V2 max: 142.3 cm/sec MV max P.5 mmHg MV P1/2t: 109.0 msec Ao max P.1 mmHg MV V2 mean: 89.7 cm/sec Ao V2 mean: 99.1 cm/sec MV mean P.8 mmHg MV dec slope: 339.9 cm/sec2 Ao mean P.4 mmHg MV V2 VTI: 36.4 cm MVA(P1/2t): 2.0 cm2 Ao V2 VTI: 29.3 cm AV (velocity ratio): 0.79 LV V1 max: 114.6 cm/sec PA V2 max: 93.3 cm/sec LV V1 max P.3 mmHg PA V2 mean: 63.8 cm/sec LV V1 mean P.9 mmHg LV V1 mean: 79.9 cm/sec LV V1 VTI: 23.3 cm ECHO/Echo Complete W/ Contrast Interpretation Summary Normal LV size. Left ventricular systolic function is normal. The estimated ejection fraction is 60 %. Stage 1 diastolic dysfunction. Ordering Physician: Carrie Waters Referring Physician: Carrie Waters Performed By: Josafat Decker RCS
== END | disposition home or self-care (01) ==
LOC: CVS 13:44
PROVIDERS: PCP Family Medicine; Referring Provider Physician Assistant Medical; Visit Provider Physician Assistant Medical
DX: I25.10 Atherosclerotic heart disease of native coronary artery without angina pectoris (principal); R06.02 Shortness of breath
CPT/HCPCS: 93306; Q9957; C8929

== ENCOUNTER 2024-02-02 15:30 | Outpatient (RCR) | payer MEDICARE, BC, SELFPAY ==
[2019-03-13 13:12] VITALS: BMI 46.6
--- NOTE | 2023-11-03 16:02 | HP.PTREVAL_ITS ---
Re-Evaluation Intro: ANDREA CARVALHO, It has been my pleasure to treat DERRELL GERMAN over the last 39 visits for SPINAL STENOSIS ,LUMBAR REGION.. Please see the progress note below for an update on the physical therapy plan of care! Subjective Subjective: Plan to have knee injections gel. Objective Objective/Function: * Patient progressing towards goals with increasing strength and function but conts to need FWW with gait thus will continue to benefit from skilled PT to address goals with PT interventions* Objective: POSTURE: mild forward posture leg length discrepancy NEURO: denies paresthesia/tingling ,reflexes L3-4,L4-5 ,L5-S1 1/3 GAIT: ambulates with fww reciprocal pattern slow nani mild forward posture ..PT clinic ambulates with cane straight cane 2 point pattern slow nani MMT: ( peak force) quads L 25.8 ,R 30.2 ,hamstrings L 27.9 ,R 25.6 ,hip flexion R 37.6 ,L 45.1 ,ankle 4/5 LUMBAR ROM: flexion min loss ,extension mod loss ,side glides min loss FLEXABLITY: hamstrings WFL Plan Plan Plan: CONT WITH POC 2x week for 4weeks PT INTERVENTIONS GAIT AND BALANCE TRAINING , POSTURAL EX'S , DLS ,BLE STRENGTHENING , LUMBAR ROM AND FUNCTIONAL STRENGTHENING. Balance/Gait/Functional tests Balance/Special Test Scores Oswestry Low Back Score: 26 Goals Goals Goal 1:: Patient to be I with HEP for back Goal Time Frame: 4-6 Weeks Goal Progress: Progressing Goal 2:: Patient to ambulate with straight cane community distances with improve gait pattern Goal Time Frame: 4-6 Weeks Goal Progress: Progressing Goal 3:: Patient to improve lumbar ROM for function of recovery to tie shoes Goal Time Frame: 4-6 Weeks Goal Progress: Progressing Goal 4:: Patient to improve peak force of quads/hams/hip by 5-10 # strength to improve gait (new goal) Goal Time Frame: 4-6 Weeks Goal 5:: Patient to improve back oswestry score by 5-10 points improve function( new goal) Goal Time Frame: 4-6 Weeks Goal Progress: Progressing Goal 6:: Patient to demonstrate 80% improvement with increase function and less pain for ADLS( new goals) Goal Time Frame: 4-6 Weeks Anticipated Interventions Anticipated Interventions Patient/Client Instruction: Educate patient on: Condition and Plan of Care For the Purpose of:: To decrease pain, To increase ROM, To improve muscle performance and motor function, To improve ability to perform ADL's, To increase tolerance to activity/condition/position, To improve gait and locomotor functions, To increase flexibility/ROM, To improve endurance, To improve alexsandra nce, To prevent re-injury and To improve tolerance to ADL's Therapeutic Exercise to Include: Strength training, Endurance training, Balance training, Postural training, Flexibilty training and Active ROM For the Purpose of:: To decrease pain, To increase ROM, To improve muscle performance and motor function, To improve ability to perform ADL's, To improve ability of physical actions for home/community/work/leisure, To improve gait and locomotor functions, To decrease soft tissue restriction, To increase flexibility/ROM, To improve endurance and To improve safety with gait Re-Evaluation Ending Re-evaluation ending: Please do not hesitate to contact me at [phone] by phone or if you have questions or concerns regarding this new plan of care! Sincerely, Stevenson Chi, PT, Cert MDT, OCS
--- NOTE | 2023-12-06 15:57 | HP.PTREVAL ---
Re-Evaluation Intro: ANDREA CARVALHO, It has been my pleasure to treat DERRELL GERMAN over the last 43 visits for SPINAL STENOSIS ,LUMBAR REGION.. Please see the progress note below for an update on the physical therapy plan of care! Subjective Subjective: Patient had injection gel in knees Objective Objective/Function: * Patient progressing towards goals with increasing strength and function has received gel injection which promote legs getting stronger but conts to need FWW with gait thus will continue to benefit from skilled PT to address goals with PT interventions are appropriate* Objective: POSTURE: mild forward posture leg length discrepancy NEURO: denies paresthesia/tingling ,reflexes L3-4,L4-5 ,L5-S1 1/3 GAIT: ambulates with fww reciprocal pattern slow nani mild forward posture ..PT clinic ambulates with cane straight cane 2 point pattern slow nani MMT: ( peak force) quads L 28.6 ,R 28.2 ,hamstrings L 26.9 ,R 25.8 ,hip flexion R 32.6 ,L 30.1 ,ankle 4/5 LUMBAR ROM: flexion min loss ,extension mod loss ,side glides min loss Plan Plan Plan: CONT WITH POC 2x week/4 weeks PT INTERVENTIONS GAIT AND BALANCE TRAINING, POSTURAL EX'S, DLS, BLE STRENGTHENING, LUMBAR ROM AND FUNCTIONAL STRENGTHENING. Balance/Gait/Functional tests Balance/Special Test Scores Oswestry Low Back Score: 24 Goals Goals Goal 1:: Patient to be I with HEP for back Goal Time Frame: 4-6 Weeks Goal Progress: Progressing Goal 2:: Patient to ambulate with straight cane community distances with improve gait pattern Goal Time Frame: 4-6 Weeks Goal Progress: Progressing Goal 3:: Patient to improve lumbar ROM for function of recovery to tie shoes Goal Time Frame: 4-6 Weeks Goal Progress: Progressing Goal 4:: Patient to improve peak force of quads/hams/hip by 5-10 # strength to improve gait (new goal) Goal Time Frame: 4-6 Weeks Goal 5:: Patient to improve back oswestry score by 5-10 points improve function( new goal) Goal Time Frame: 4-6 Weeks Goal Progress: Progressing Goal 6:: Patient to demonstrate 80% improvement with increase function and less pain for ADLS( new goals) Goal Time Frame: 4-6 Weeks Anticipated Interventions Anticipated Interventions Patient/Client Instruction: Educate patient on: Condition and Plan of Care For the Purpose of:: To decrease pain, To increase ROM, To improve muscle performance and motor function, To improve ability to perform ADL's, To increase tolerance to activity/condition/position, To improve gait and locomotor functions, To increase flexibility/ROM, To improve endurance, To improve balance, To prevent re-injury and To improve tolerance to ADL's Therapeutic Exercise to Include: Strength training, Endurance training, Balance training, Postural training, Flexibilty training and Active ROM For the Purpose of:: To decrease pain, To increase ROM, To improve muscle performance and motor function, To improve ability to perform ADL's, To improve ability of physical actions for home/community/work/leisure, To improve gait and locomotor functions, To decrease soft tissue restriction, To increase flexibility/ROM, To improve endurance and To improve safety with gait Re-Evaluation Ending Re-evaluation ending: Please do not hesitate to contact me at [phone] by phone or if you have questions or concerns regarding this new plan of care! Sincerely, Stevenson Chi, PT, Cert MDT, OCS
--- NOTE | 2024-01-12 16:32 | HP.PTREVAL_ITS ---
Re-Evaluation Intro: ANDREA CARVALHO, It has been my pleasure to treat DERRELL GERMAN over the last 50 visits for SPINAL STENOSIS ,LUMBAR REGION.. Please see the progress note below for an update on the physical therapy plan of care! Subjective Subjective: PATIENT REPORTS SHE CAN GET IN AND OUT OF A CHAIR BETTER, SHE CAN WALK BETTER AND SHE CAN STAND BETTER SINCE HER LAST RE-CHECK. SHE REPORTS SHE IS WALKING WITHOUT A WALKER SOME NOW BUT SHE PREFERS NOT TO USE A CANE BECAUSE SHE HAS GOT TRIPPED UP WITH A CANE IN THE PAST. PATIENT REPORTS SHE WANTS TO BE ABLE TO WALK WITHOUT A WALKER. SHE REPORTS WHEN SHE FIRST STARTED THERAPY SHE WAS AFRAID OF WALKING WITHOUT A WALKER BECAUSE A FALL IS WHAT STARTED HER PROBLEM 3 YEARS AGO BUT TODAY SHE WALKED ACROSS THE GYM AND DIDN'T HAVE THAT FEAR WITH THE THERAPIST WITH HER. SHE REPORTS SHE IS HAPPY WITH HER PROGRESS WITH PT AND WANTS TO CONTINUE. STATES SHE IS ONLY TAKING GABAPENTIN AND TYLENOL AT NIGHT NOW AND SHE WAS TAKING IT 3 TIMES A DAY. PATIENT REPORTS SHE HAS LOST 5 LBS AND LESS SOB IN THE LAST WEEK OR 2 SINCE TAKING DIURETIC MORE consistently and reducing salt intake which is helping her progress with PT. She also reports her knees are doing better now from the injections which are limiting her less in PT. No recent falls. Patient reports she has Silver Sneakers and thinks she would like to use [facility] (where her goes) at least initially, once formal physical therapy concludes. Objective Objective/Function: PATIENT IS MAKING SLOW PROGRESS WITH MOBILITY AND STRENGTH AND WOULD BENEFIT FROM FURTHER SKILLED PT TO HELP TRANISITON TO AN INDEP EX PROGRAM FOR FURTHER IMPROVEMENT ONCE FORMAL PHYSICAL THERAPY CONCLUDES. PATIENT IS AGREEABLE. UPON EXAM TODAY: GAIT: THIS PATIENT IS NOW ABLE TO AMBULATE INDEP'LY X APPROX 150 FEET X 2 WITHOUT ANY AD WITHOUT LOB AND MILD C/O LB AND BENJA KNEE PAIN. SHE HOWEVER ISN'T ABLE TO MAINTAIN PROPER POSTURE CONTROL BUT IMPROVING. SHE STANDS AND WALKS WITH INCREASED TRUNK FLEXION. SEE TUG TIME BELOW. MMT: (peak force) quads L 28.8 ,R 28.3 ,hamstrings L 27.9 ,R 25.7 ,hip flexion R 32.7 ,L 31.1 ,ankle 5/5 TRANSFERS: PATIENT IS NOW ABLE TO TRANSFER SIT TO STAND WITH HANDS ON KNEES ONLY. LUMBAR ROM LOSS: FLEX - MIN EXT - MOD BENJA SG - MIN Plan Plan Plan: CONTINUE PT 2X'S A WK X 10 VISITS FOR: FOCUS ON ASSISTING PATIENT TO TRANSITION TO INDEP HOME AND GYM EX PROGRAMS WITH [facility] AT G[facility] OF CHOICE FOR CORE STRENGTH AND STABILITY AND LE ROM, STRETCHING AND STRENGTHENING WHILE USING PROPER POSTURE CONROL AND BODY MECHANICS. INCLUDE GAIT AND BALANCE ACTIVITIES. Balance/Gait/Functional tests Balance/Special Test Scores Oswestry Low Back Score: 23 TUG Test Time Seconds: 19.05 Tug Test: <20 sec.=mostly independent Goals Goals Goal 1:: Patient to be I with HEP for back. NEW GOAL: PATIENT WILL BE INDEP WITH A HEP AND GYM EX PROGRAM FOR CONTINUED IMPROVEMENT ONCE FORMAL PHYSICAL THERAPY CONCLUDES. Goal Time Frame: 4-6 Weeks Goal Progress: Progressing Goal 2:: Patient to ambulate with straight cane community distances with improve gait pattern. New Goal: PATIENT WILL COMPLETE TUG IN < 15 SECS WITHOUT AN AD TO DEMONSTRATE IMPROVED GAIT STABILITY. Goal Time Frame: 4-6 Weeks Goal Progress: Progressing Goal 3:: Patient to improve lumbar ROM for function of recovery to tie shoes Goal Time Frame: 4-6 Weeks Goal Progress: Progressing Goal 4:: Patient to improve peak force of quads/hams/hip by 5-10 # strength to improve gait (new goal) Goal Time Frame: 4-6 Weeks Goal Progress: Progressing Goal 5:: Patient to improve back oswestry score by 5-10 points improve function( new goal) Goal Time Frame: 4-6 Weeks Goal Progress: Progressing Goal 6:: Patient to demonstrate 80% improvement with increase function and less pain for ADLS( new goals) Goal Time Frame: 4-6 Weeks Goal Progress: Goal Met Anticipated Interventions Anticipated Interventions Patient/Client Instruction: Educate patient on: Condition and Plan of Care For the Purpose of:: To decrease pain, To increase ROM, To improve muscle performance and motor function, To improve ability to perform ADL's, To increase tolerance to activity/condition/position, To improve gait and locomotor functions, To increase flexibility/ROM, To improve endurance, To improve balance, To prevent re-injury and To improve tolerance to ADL's Therapeutic Exercise to Include: Strength training, Endurance training, Balance training, Postural training, Flexibilty training and Active ROM For the Purpose of:: To decrease pain, To increase ROM, To improve muscle performance and motor function, To improve ability to perform ADL's, To improve ability of physical actions for home/community/work/leisure, To improve gait and locomotor functions, To decrease soft tissue restriction, To increase flexibility/ROM, To improve endurance and To improve safety with gait Re-Evaluation Ending Re-evaluation ending: Please do not hesitate to contact me at [phone] by phone or if you have questions or concerns regarding this new plan of care! Sincerely, Shaye Gerber, PT, Cert MDT
--- NOTE | 2024-04-08 13:13 | HP.PT.NRP ---
Patient Information Patient Information: DERRELL GERMAN was seen in my office for initial evaluation on 04/21/24. The following Plan of Care was established for this patient: Anticipated Interventions Patient/Client Instruction: Educate patient on: Condition and Plan of Care For the Purpose of:: To decrease pain, To increase ROM, To improve muscle performance and motor function, To improve ability to perform ADL's, To increase tolerance to activity/condition/position, To improve gait and locomotor functions, To increase flexibility/ROM, To improve endurance, To improve balance, To prevent re-injury and To improve tolerance to ADL's Therapeutic Exercise to Include: Strength training, Endurance training, Balance training, Postural training, Flexibilty training and Active ROM For the Purpose of:: To decrease pain, To increase ROM, To improve muscle performance and motor function, To improve ability to perform ADL's, To improve ability of physical actions for home/community/work/leisure, To improve gait and locomotor functions, To decrease soft tissue restriction, To increase flexibility/ROM, To improve endurance and To improve safety with gait Last Seen Last Seen: This patient was last seen in our office . Pertinent comments regarding their Physical therapy will appear below: Patient was seen for PT for spinal stenosis s/p surgery with strengthening and gait ,but d/c due to other medical reasons At this point I will be discontinuing this patient from physical therapy. I would be happy to see this patient again in the future if found appropriate by the physician. Thank you! Stevenson Chi, PT, Cert MDT, OCS Balance/Gait/Functional tests Balance/Special Test Scores Oswestry Low Back Score: 23 TUG Test Time Seconds: 19.05 Tug Test: <20 sec.=mostly independent
== END 2024-02-02 19:00 | disposition home or self-care (01) ==
LOC: PT 15:30
PROVIDERS: PCP Family Medicine
DX: Z98.1 Arthrodesis status (principal); Z47.89 Encounter for other orthopedic aftercare; M48.062 Spinal stenosis, lumbar region with neurogenic claudication
CPT/HCPCS: 97110; 97116; 97530

== ENCOUNTER 2024-02-05 13:40 | Outpatient (CLI) | payer MEDICARE, BC, SELFPAY ==
[2019-03-13 13:12] VITALS: BMI 46.6
[2024-02-05 14:18] VITALS: BP 148/61; PULSE 69; RESP 16; TEMP 36.3; O2SAT 98; BMI 48.4
[2024-02-05] MEDS: MethylPREDNISolone 1,000 MG in 0.9% Normal Saline (250mL Bag) 250 ML 250 MG IV (14:39)
[2024-02-05] MEDS: 0.9% NaCl Peripheral Flush Adult/Peds IV ×2 (14:40→15:55)
[2024-02-05 15:56] VITALS: BP 148/73; PULSE 73; RESP 16; TEMP 36.2; O2SAT 97
== END 2024-02-05 23:59 | disposition home or self-care (01) ==
LOC: MEDOUTP 13:40
PROVIDERS: PCP Family Medicine; Referring Provider Ophthalmology; Visit Provider Ophthalmology
DX: M31.6 Other giant cell arteritis (principal)
CPT/HCPCS: 96365; J7050; A4216; J2919

== ENCOUNTER → 2024-02-05 | Outpatient (CLI) | payer MEDICARE, BC, SELFPAY ==
[2019-03-13 13:12] VITALS: BMI 46.6
--- NOTE | 2024-02-05 13:06 | CT_ITS ---
STUDY: CT BRAIN WITHOUT CONTRAST REASON FOR EXAM: Female, 68 years old. Unspecified papilledema RADIATION DOSAGE (If Supplied By Facility): CTDIvol = ( 47.06 ) mGy, DLP = ( 907.97 ) mGycm TECHNIQUE: Transaxial CT imaging of the brain was performed without administration of intravenous contrast material. Individualized dose optimization techniques were used for this CT. COMPARISON: Comparison is made with prior study dated August 08, 2018. FINDINGS: Normal soft tissue structures. Normal calvarium. Normal size ventricles and extra-axial spaces for the patient''s age. Normal white matter tracts of the cerebral hemispheres. Normal basal ganglia and thalami. Normal brainstem. Normal cerebellum. There is no intracranial hemorrhage. There are no findings of an acute ischemic infarction. Atherosclerotic plaque formation of the cavernous portions of the internal carotid arteries bilaterally. Normal visualized paranasal sinuses. CT/Brain/Head without Contrast IMPRESSION: No acute abnormality is seen. Electronically Signed: Cliff Horowitz MD at 13:39 EDT ,
== END | disposition home or self-care (01) ==
LOC: CT 13:05
PROVIDERS: PCP Family Medicine; Referring Provider Ophthalmology; Visit Provider Ophthalmology
DX: H47.10 Unspecified papilledema (principal); M31.6 Other giant cell arteritis
CPT/HCPCS: 70450

== ENCOUNTER 2024-02-06 12:16 | Outpatient (CLI) | payer MEDICARE, BC, SELFPAY ==
[2019-03-13 13:12] VITALS: BMI 46.6
[2024-02-06 12:23] VITALS: BP 165/72; PULSE 94; RESP 16; TEMP 36.2; O2SAT 96; BMI 48.4
[2024-02-06] MEDS: 0.9% NaCl Peripheral Flush Adult/Peds IV ×2 (12:49→14:38)
[2024-02-06] MEDS: MethylPREDNISolone 1,000 MG in 0.9% Normal Saline (250mL Bag) 250 ML 250 MG IV (12:50)
[2024-02-06 14:33] VITALS: BP 146/62; PULSE 87; RESP 16; TEMP 36.4; O2SAT 96
[2024-02-06 14:52] LABS: Absolute Lymphocyte Count 1.62 X10^3/uL (0.83-4.51); Absolute Neutrophil Count 13.8 X10^3/uL (2.0-7.7); Basophil# 0.02 X10^3/uL; Basophil% 0.1 % (0-1); Hematocrit 43.8 % (37-47); Hemoglobin 13.7 g/dL (12.0-15.0); Lymphocyte # 1.62 X10^3/ul (0.83-4.51); Mean Corp Hgb Conc 31.3 g/dL (32-36); Mean Corpuscular Hgb 28.1 pg (27.0-32.0); Mean Corpuscular Volume 89.8 fL (81-99); Mean Platelet Vol. 9.1 fl (6.2-12.0); Monocyte# 0.48 X10^3/uL; NRBC Flagged by Analyzer 0 % (0-5); Neutrophil # 13.83 X10^3/uL (2.7-7.7); Neutrophil % 85.4 % (47-70); Platelet Count 339 K/mm3 (150-450); RBC Distribution Width CV 15.3 % (11.6-14.6); RBC Distribution Width SD 50.4 fl (35.1-43.9); Red Blood Count 4.88 M/mm3 (4.2-5.4); White Blood Count 16.2 K/mm3 (4.4-11.0)
[2024-02-06 14:55] LABS: Erythrocyte Sedimentation Rate 27 mm/hr (0-30)
[2024-02-06 15:00] LABS: CRP 6.66 mg/L (0.0-3.0)
[2024-02-08 13:08] LABS: Angiotensin Convert Enzyme 56 U/L (14-82)
== END 2024-02-06 23:59 | disposition home or self-care (01) ==
LOC: MEDOUTP 12:16
PROVIDERS: PCP Family Medicine; Referring Provider Ophthalmology; Visit Provider Ophthalmology
DX: M31.6 Other giant cell arteritis (principal)
CPT/HCPCS: 96365; 82164; 85025; 85652; 86140; J7050; A4216; J2919

== ENCOUNTER 2024-02-07 12:08 | Outpatient (CLI) | payer MEDICARE, BC, SELFPAY ==
[2019-03-13 13:12] VITALS: BMI 46.6
[2024-02-07] MEDS: 0.9% NaCl Peripheral Flush Adult/Peds IV (12:20)
[2024-02-07 12:21] VITALS: BP 142/62; PULSE 78; RESP 16; TEMP 36.5; O2SAT 97
[2024-02-07] MEDS: MethylPREDNISolone 1,000 MG in 0.9% Normal Saline (250mL Bag) 250 ML 250 MG IV (12:37)
[2024-02-07 13:51] VITALS: BP 131/65; PULSE 79; RESP 16
== END 2024-02-07 23:59 | disposition home or self-care (01) ==
LOC: MEDOUTP 12:09
PROVIDERS: PCP Family Medicine; Referring Provider Ophthalmology; Visit Provider Ophthalmology
DX: M31.6 Other giant cell arteritis (principal)
CPT/HCPCS: 96365; J7050; A4216; J2919

== ENCOUNTER → 2024-02-09 | Outpatient (CLI) | payer MEDICARE, BC, SELFPAY ==
[2019-03-13 13:12] VITALS: BMI 46.6
--- NOTE | 2024-02-09 09:53 | CDU_ITS ---
Reason For Study: RETINAL ISCHEMIA Rt. Velocities/BP Lt. Velocities/BP Prox CCA 84.3/9.3 cm/sec. Prox CCA 73.3/7.2 cm/sec. Mid CCA 87.9/11.8 cm/sec. Mid CCA 79.9/11.9 cm/sec. Dist CCA 64.6/10.6 cm/sec. Dist CCA 84.6/11.9 cm/sec. Prox ICA 58.2/12.8 cm/sec. Prox ICA 56.4/15.4 cm/sec. Mid ICA 50.6/13.8 cm/sec. Mid ICA 51.1/10.1 cm/sec. Dist ICA 64.8/14.7 cm/sec. Dist ICA 76.4/19.7 cm/sec. Rt. ICA/CCA = 64.8/87.9=0.7. Lt. ICA/CCA = 76.4/79.9=1.0. Prox ECA 86.7/0.0 cm/sec. Prox ECA 88.4/6.2 cm/sec. Rt. Vert. 38.1/7.5 cm/sec. Lt. Vert. 36.0/9.0 cm/sec. Right Extracranial There is homogeneous, smooth atherosclerotic plaque noted in the right common carotid artery. There is heterogeneous, irregular atherosclerotic plaque noted in the right internal carotid artery. There is intimal thickening but no significant atherosclerotic plaque noted in the right external carotid artery. Antegrade flow is noted in the right vertebral artery. Left Extracranial There is homogeneous, smooth atherosclerotic plaque noted in the left common carotid artery. There is homogeneous, smooth atherosclerotic plaque noted in the left internal carotid artery. There is no significant atherosclerotic plaque noted in the left external carotid artery. Antegrade flow is noted in the left vertebral artery. Procedure Carotid Duplex 94405. This is a Carotid Duplex examination using B-mode, color flow and specral Doppler. Exam performed in department. VL/Carotid Duplex Ultrasound Interpretation Summary Mild (<50%) stenosis right extracranial internal carotid. Mild (<50%) stenosis left extracranial internal carotid. Patent and antegrade vertebrals bilaterally. Ordering Physician: Juvenal Euceda Referring Physician: Willard Friedman Performed By: Candy Blandon RDCS, RVT
== END | disposition home or self-care (01) ==
LOC: CVS 09:52
PROVIDERS: PCP Family Medicine; Referring Provider Ophthalmology; Visit Provider Ophthalmology
DX: H35.82 Retinal ischemia (principal); M31.6 Other giant cell arteritis
CPT/HCPCS: 93880

== ENCOUNTER 2024-02-12 08:56 | Day surgery (SDC) | payer MEDICARE, BC, SELFPAY ==
[2019-03-13 13:12] VITALS: BMI 46.6
[2024-02-12] VITALS (7 sets, daily range): BP systolic 110–155; BP diastolic 54–77; PULSE 69–72; RESP 16–18; TEMP 36.2–36.8; O2SAT 94–99; BMI 51.1
[2024-02-12] MEDS: Lactated Ringers 1,000 ML 15 ML IV (09:15)
--- NOTE | 2024-02-12 09:53 | PCM.HP.BLA ---
History and Physical Date of Admission: 02/12/24 Intake Vital Signs 10/30/2414:03 02/07/2412:21 02/06/2414:18 Height 5 ft 2 in 5 ft 2 in 5 ft 2 in Weight: 270 lb BMI 49.4 BP 133/75 H Blood Pressure Location Rt radial Position Sitting Respiration 18 Pulse 70 Pulse Source Monitor Temp 97.3 F L Temp Source Temporal Pulse Oximetry (%) 97 Oxygen Delivery Method room air Intake Visit Reasons: TEMPORAL ARTERY BIOPSY Chief Complaint: temporal artery biopsy Accompanied by: Is patient in pain?: No Allergies adhesive Allergy (Verified 02/08/24 08:54) OtherFish Containing Products Allergy (Verified 02/08/24 08:54) Hivesfluconazole (From Diflucan) Allergy (Verified 02/08/24 08:54) Hivesiodine Allergy (Verified 02/08/24 08:54) Unknownorange Allergy (Verified 02/08/24 08:54) HivesPenicillins Allergy (Verified 02/08/24 08:54) Unknownpioglitazone (From Actos) Allergy (Verified 02/08/24 08:54) Hivespovidone-iodine (From Betadine) Allergy (Verified 02/08/24 08:54) Unknownsoap (From Betadine) Allergy (Verified 02/08/24 08:54) UnknownSulfa (Sulfonamide Antibiotics) Allergy (Verified 02/08/24 08:54) Unknownsulfamethoxazole (From Bactrim) Allergy (Verified 02/08/24 08:54) Unknowntetanus and diphtheria toxoids Allergy (Verified 02/08/24 08:54) Hivestrimethoprim (From Bactrim) Allergy (Verified 02/08/24 08:54) Unknownamlodipine Adverse Reaction (Severe, Verified 02/08/24 08:54) Swelling Medications ?Medication ?Instructions ?Recorded ?Confirmed ?Type epinephrine 0.3 mg/0.3 mL 0.3 mg IM ONCE 10/30/17 02/08/24 History injection, auto-injector (EpiPen) rosuvastatin 20 mg tablet 20 mg PO QDAY Cholesterol 11/22/17 02/08/24 History aspirin 81 mg tablet,delayed 81 mg PO DAILY@0800 03/14/19 02/08/24 Rx release gabapentin 100 mg capsule 100 - 300 mg PO TID 05/27/20 02/08/24 History pen needle, diabetic 32 gauge x #100 ea 10/01/20 02/08/24 Rx (BD Ultra-Fine Eva Pen Needle) levothyroxine 175 mcg tablet 175 mcg PO DAILY 10/25/20 02/08/24 History cholecalciferol (vitamin D3) 125 125 mcg PO DAILY 12/02/20 02/08/24 History mcg (5,000 unit) tablet hydrocortisone 2.5 % topical cream 1 applic topical BID PRN Itching 10/15/21 02/08/24 History melatonin 5 mg tablet 5 mg PO HS PRN Sleep 10/15/21 02/08/24 History triamcinolone acetonide 0.1 % 1 applic topical DAILY 10/15/21 02/08/24 History topical cream spironolactone 25 mg tablet 25 mg PO BID water pill 04/26/22 02/08/24 History metoprolol tartrate 25 mg tablet 25 mg PO DAILY 05/23/22 02/08/24 History potassium chloride 10 mEq 20 meq PO DAILY 09/22/22 02/08/24 History capsule,extended release clobetasol 0.05 % topical cream 1 applic topical DAILY PRN psorasis 04/06/23 02/08/24 History montelukast 10 mg tablet 10 mg PO QHS 04/06/23 02/08/24 History (Singulair) nitroglycerin 0.4 mg sublingual 0.4 mg sublingual Q5M PRN .CHEST 04/26/23 02/08/24 Rx tablet PAIN #25 tabs blood-glucose sensor (Dexcom G7 #3 ea 06/08/23 02/08/24 Rx Sensor device) blood-glucose sensor (Dexcom G7 #3 ea 06/08/23 02/08/24 Rx Sensor device) blood-glucose meter,continuous #1 ea 06/19/23 02/08/24 Rx (Dexcom G7 [employer]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) denosumab 60 mg/mL subcutaneous 60 mg subcut [id number] #1 mL 07/12/23 02/08/24 Rx syringe (Prolia) Farxiga 10 mg tablet 10 mg PO DAILY #90 tabs 09/11/23 02/08/24 Rx (dapagliflozin propanediol) nystatin 100,000 unit/gram topical 1 applic topical DAILY #30 grams 11/09/23 02/08/24 Rx cream Trulicity 3 mg/0.5 mL subcutaneous 3 mg (0.5 mL) subcut QWEEK #2 mL 01/04/24 02/08/24 Rx pen injector (dulaglutide) insulin regular hum U-500 conc 500 See Rx Instructions subcut ONCE 01/04/24 02/08/24 Rx unit/mL(3 mL) subcut pen (Humulin #45 mL R U-500 (Conc) Insulin Kwikpen) clopidogrel 75 mg tablet 75 mg PO DAILY #90 tabs 01/22/24 02/08/24 Rx furosemide 20 mg tablet 20 mg PO .COMPLEX #180 tabs 01/22/24 02/08/24 Rx furosemide 40 mg tablet 40 mg PO .COMPLEX #180 tabs 01/22/24 02/08/24 Rx isosorbide mononitrate 60 mg 60 mg PO DAILY #90 tabs 01/22/24 02/08/24 Rx tablet,extended release 24 hr famotidine 20 mg tablet 20 mg PO BID 02/08/24 02/08/24 History prednisone 20 mg tablet 80 mg PO DAILY 02/08/24 02/08/24 History PFSH Medical History Presence of insulin pump Post-menopausal Psoriasis Walker as ambulation aid Fatty liver History of migraine Seasonal allergies PONV (postoperative nausea and vomiting) Back pain Dietary restriction History of diverticulitis History of GI bleed Gastric reflux Non-smoker BiPAP (biphasic positive airway pressure) dependence Shortness of breath on exertion History of edema History of CHF (congestive heart failure) History of atrial fibrillation History of echocardiogram History of stress test Cardiology follow-up encounter Edema Chest pain, unspecified Diabetes Vitamin D deficiency Osteoporosis Acute on chronic diastolic (congestive) heart failure History of left heart catheterization (LHC) (~03/03/20) Hypothyroidism (acquired) Mixed hyperlipidemia Benign essential hypertension Cataract associated with type 2 diabetes mellitus 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 2 diabetes mellitus NATALIE (obstructive sleep apnea) Abnormal stress test Chest pain Chapman's palsy Thyroid disease Heart murmur Hives Recurrent UTI Bone fracture Back problem Arthritis Kidney stones HTN (hypertension) Anemia Asthma Obesity Surgical History Presence of stent in coronary artery (~03/13/19) History of surgery History of back surgery Presence of coronary angioplasty implant and graft (~03/13/19) Cataract extraction status, left eye Cataract extraction status, right eye History of left heart catheterization (LHC) H/O colonoscopy H/O right heart catheterization H/O thyroidectomy H/O sinus surgery History of tonsillectomy History of total abdominal hysterectomy H/O arthroscopic knee surgery Hx of cholecystectomy Family History Mother Diabetes Heart disease Hypertension High cholesterol Kidney disease CancerFather Diabetes Hypertension High cholesterol CancerSister Cancer Social History Smoking Status: Never smoker second hand exposure: No alcohol intake: never substance use type: does not use caffeine: Yes Type: carbonated beverages Number of servings: 1 and tea Number of servings: 1 HPI HPI HPI: Patient is a 68-year-old female here with loss of vision in the right eye and change in vision on the left. The patient was started on IV steroids. The patient reports some headache as well. She was sent here for temporal artery biopsy. ROS General General: No weight change, appetite, fatigue, colon cancer, breast cancer or weakness HEENT HEENT: Yes eye surgery; No difficulty swallowing, eye injury, swollen glands or hoarseness Additional Details: cataracts Endo Endocrine: Yes thyroid disease and diabetes mellitus; No thyroid cancer, Hair loss, heat intolerance or cold intolerance Additional Details: thyroid has been removed Skin Skin: No rash or changing moles Musc Musculoskeletal: Yes back problems and arthritis; No rheumatoid arthritis, gout or joint pain Cardio Cardiovascular: Yes atrial fibrillation, high blood pressure and heart stent; No murmur, pacemaker, heart disease, heart attack, palpitations, shortness of breat with exertion or chest pain Additional Details: three heart stents Psych Psychiatric: No depression, anxiety or hearing voices Resp Respiratory: Yes shortness of breath, Yes sleep apnea, Yes cough, No COPD, Yes asthma, No emphysema and No wheezing Gastro Gastrointestinal: No abdominal pain, Yes nausea or vomiting, No diarrhea, No constipation, No blood in stool, Yes acid reflux, No hemorrhoids, No ulcers, No gallbladder problem and No black,tarry stools Additional Details: nausea related to vision issue Shayne Hematologic: Yes blood thinners, No blood disorders, No bleeding, No anemia and No blood clots Additional Details: plavix and aspirin Neuro Neurologic: Yes numbness (arms ), Yes tingling (arms) and No weakness Exam Const General: cooperative Orientation: alert and oriented x3 HENMT Head: normal to inspection Neck Neck: normal visual inspection and full ROM Chest Chest palpation & inspection: normal inspection of the chest Resp Effort & Inspection: normal respiratory effort Auscultation: clear to auscultation bilaterally Cardio Rate: regular rate Rhythm: regular rhythm GI Inspection: non-distended Palpation: soft and nontender Skin General: no rashes or lesions noted Neuro General: patient alert and patient oriented x3 Extrem General: full ROM Psych Appearance: grossly normal Mental Status: mental status grossly normal Assessment and Plan Assessment and Plan (1) Visual loss, right eye: Status: Acute Plan: The patient has vision loss of her right eye and was sent for temporal artery biopsy. Unfortunately she has been taking her aspirin and Plavix. I will hold these medications starting now and plan for surgery Monday on the right. I discussed right temporal artery biopsy with her in detail. I discussed the risks including but not limited to bleeding, infection, nondiagnosis or injury to nerve. Patient understands all the risks and is willing to proceed. Nic Coleman MD Pager: [facility] [address] [place] [address], [address] [place] [address] Office: I have examined the patient and the H&P has been reviewed. There are no clinical changes since date of exam.
[2024-02-12] MEDS: Clindamycin 900 MG/50 ML BAG 75 MG IV (10:33)
--- NOTE | 2024-02-12 10:45 | TEM_PTH ---
PATIENT: DERRELL GERMAN LOC: [facility] [place] U#:[id number] AGE/SX: 68/F ROOM: RE02/12/[address]: Dr. Nic Coleman MD : 1955 BED: DIS: 02/12/2024 SPEC #: [id number] RECD: 02/12/24 11:33 STATUS: DALLIN REQ #: [id number] ABNER: 02/12/24 10:[address]: Nic Coleman DEPT: SURGICAL PATHOLOGY RECD BY: Hannah Winchester ENTERED: 02/12/24 13:07 SP TYPE: TEMPORAL OTHR DR: Dr. Willard Friedman MD Tissues: Temporal region Procedures: Elastin Stain (control) Special Stain Group I Surgery Specimen Level IV HEADER OPERATION: Biopsy, temporal artery PRE-OP DIAGNOSIS: Vision loss right eye TISSUE SUBMITTED: Right temporal artery MICROSCOPIC DIAGNOSIS Right temporal artery, biopsy: Negative for giant cell arteritis. Mild intimal hyperplasia. Extensive medial vascular calcifications. See comment. LEEANNE/ 02/13/2024 COMMENT Elastic stain match control is used in the relation of the specimen. Clinical correlation and appropriate follow up are necessary. MICROSCOPIC DESCRIPTION Slides are reviewed. GROSS DESCRIPTION Received in fixative is one container labeled with the patient's name and designated Right temporal artery. The specimen consists of a tubular piece of galindo soft tissue measuring 2.5cm in length and 0.2cm in diameter. The specimen is serially sectioned and totally submitted in one cassette. LEEANNE/ 02/12/2024 TC:5 CPT:[id number]
[2024-02-12] MEDS: Lidocaine 1% (20 ml mdv) 20 ML Vial (10:50)
[2024-02-12] MEDS: Dextrose 5%/0.9% NaCl 1,000 ML 100 ML IV (10:52)
--- NOTE | 2024-02-12 11:07 | PCM.POSTANE2 ---
Anesthesia Postop Eval I Sum Anesthesia Postop Eval I Summary Anesthesia Postop Eval I Summary: Anesthesia Postop Eval I: Assessment Summary Airway patent Spontaneous unlabored respirations Mental status nausea Vomiting Anesthesia Postop Eval I: Fluid Summary Crystalloid volume administer (ml) Colloids volume administered ( ml) Blood Product volume administered (ml) Total IV fluid infused Anesthesia Postop Eval I: Summary Notes Anesthesia Complication Anesthesia Complication Comment: Post-operative progress note Anesthesia: Postop Eval II Evaluation Mental status: Awake Pain Level: 1 nausea: No Vomiting: No
[2024-02-12 11:11] LABS: Bedside Glucose 63 mg/dL (74-106)
--- NOTE | 2024-02-12 11:19 | PCM.OPRPT ---
Report of Operation Date of Procedure: 02/12/24 Pre-Operative Diagnosis: Temporal headaches and vision change Post-Operative Diagnosis: Same Surgery/Procedure Performed:: Right temporal artery biopsy Type of Anesthesia: Local MAC Specimen's removed: Right temporal artery segment Estimated Blood Loss (mL): 5 Description of Procedure: Patient was brought back to the operating room and MAC anesthesia was induced. The hair in the right pentecostal was clipped. Ultrasound was then used to localize the temporal artery and it was marked. Next the right pentecostal was prepped and draped in usual sterile fashion. The marked site was injected with local anesthetic. Next incision was made with scalpel and electrocautery was used to maintain hemostasis. Sharp dissection was carried out to encounter the artery once it was encountered it was dissected free superiorly and inferiorly. The side branches were clipped with small clips. The proximal and distal end of the artery were clipped with medium clips and suture tied and then the artery was resected. The area was irrigated and suctioned dry and there was good hemostasis. The skin was closed with interrupted 4-0 Monocryl sutures and a running 4-0 Monocryl suture. Dermabond was applied. Patient was taken to PACU in stable condition and tolerated the procedure well. Admit VTE Documentation VTE Mechan Device Prophylaxis: SCD's
--- NOTE | 2024-02-12 11:22 | EX.PCM.DISCH ---
Discharge Instructions Diet Discharge Diet: Light diet - advance as tolerated Activity Discharge Activity: Return to Normal Activity and May Shower Lifting Restrictions: 15 lbs for 1 week Dressing / Incision Call your doctor if your incision/area has: Continuous Slow Oozing, Sudden Increased Bleeding, Increased Pain/ Swelling, Increased Redness, Foul Smelling Discharge and Swelling at the incision site Call your doctor if you observe: Fever of 101 or Higher Cleanse incision/area with: Soap & Water Additional Dressing/Incision Instructions:: Resume aspirin and Plavix on Monday, Tylenol for pain control Follow Up Care Please Follow Up With: Nic Coleman MD When: Please call to schedule 2 week follow up appointment. [phone] Test Results: Test results from this visit will be discussed in further detail at your follow-up appointment, if applicable. Discharge Plan Admission Attending Provider: Nic Coleman Primary Care Provider: Willard Friedman Instructions Print Language: Swedish Discharge Orders/Prescriptions Prescriptions: No Action rosuvastatin 20 mg tablet 20 mg PO QDAY epinephrine [EpiPen] 0.3 mg/0.3 mL auto-injector 0.3 mg IM ONCE spironolactone 25 mg tablet 25 mg PO BID gabapentin 100 mg capsule 100 - 300 mg PO TID cholecalciferol (vitamin D3) 125 mcg (5,000 unit) tablet 125 mcg PO DAILY (DME) pen needle, diabetic [BD Ultra-Fine Eva Pen Needle] 32 gauge x 5/32 needle See Rx Instructions .ROUTE .MEDSUPPLY Qty: 100 6RF Rx Instructions: tid hydrocortisone 2.5 % cream 1 applic topical BID PRN (Reason: Itching) triamcinolone acetonide 0.1 % cream 1 applic topical DAILY melatonin 5 mg tablet 5 mg PO HS PRN (Reason: Sleep) clobetasol 0.05 % cream 1 applic topical DAILY PRN (Reason: psorasis) montelukast [Singulair] 10 mg tablet 10 mg PO QHS nitroglycerin 0.4 mg tablet, sublingual 0.4 mg SL Q5M PRN (Reason: .CHEST PAIN) Qty: 25 3RF potassium chloride 10 mEq capsule, extended release 20 meq PO DAILY (DME) Dexcom G7 Sensor Device See Rx Instructions .Route Qty: 3 6RF Rx Instructions: As directed (DME) Dexcom G7 Sensor Device See Rx Instructions .Route Qty: 3 0RF Rx Instructions: As directed aspirin 81 MG tablet 81 mg PO DAILY@0800 0RF Patient Comments: HOLDING 02/07/24 FOR PROCEDURE ON 02/12/24 levothyroxine 175 MCG tablet 175 mcg PO DAILY metoprolol tartrate 25 mg tablet 25 mg PO DAILY prednisone 20 mg tablet 80 mg PO DAILY famotidine 20 mg tablet 20 mg PO BID (DME) Dexcom G7 Stitcher Set Up Operator Automatic Misc See Rx Instructions .Route Qty: 1 0RF Rx Instructions: As directed Prolia 60 mg/mL syringe 60 mg subcut [id number] Qty: 1 1RF dapagliflozin propanediol [Farxiga] 10 mg tablet 10 mg PO DAILY Qty: 90 2RF nystatin 100,000 unit/gram cream 1 applic TOPICAL DAILY Qty: 30 0RF Humulin R U-500 (Conc) Kwikpen 500 unit/mL (3 mL) insulin pen See Rx Instructions subcut ONCE Qty: 45 3RF Patient Comments: PT STATES SHE TAKES 300 TID WHILE ON STEROIDS, PT TAKES INSULIN WITH SNACKS. CHECKS BLOOD SUGAR AND TAKES ACCORDINGLY. Rx Instructions: 200 units tid with meals 80 units bid with snacks subcutaneously once; Trulicity 3 mg/0.5 mL pen injector 3 mg subcut QWEEK Qty: 2 3RF Rx Instructions: to be used when 4.5 mg is not avaialble isosorbide mononitrate 60 mg tablet extended release 24 hr 60 mg PO DAILY Qty: 90 3RF clopidogrel 75 mg tablet 75 mg PO DAILY Qty: 90 3RF Patient Comments: HOLDING 02/07/24 FOR PROCEDURE ON 02/12/24 furosemide 40 mg tablet 40 mg PO .COMPLEX Qty: 180 3RF Rx Instructions: 40 mg orally twice a day; takes with a 20 mg tablet to = 60 mg twice a day; furosemide 20 mg tablet 20 mg PO .COMPLEX Qty: 180 3RF Rx Instructions: 20 mg orally twice a day; take with a 40 mg tablet to = 60 mg twice a day; Referrals / Follow Up: Willard Friedman MD [Primary Care Provider] - Disposition Disposition (needs filled in before D/C Order can be placed): Home, Self Care
[2024-02-12 11:59] LABS: Bedside Glucose 91 mg/dL (74-106)
[2024-02-12] MEDS: Acetaminophen 325 MG Tablet 650 MG PO (12:04)
== END 2024-02-12 12:42 | disposition home or self-care (01) ==
LOC: SDC 08:56 → AC 08:57
PROVIDERS: PCP Family Medicine; Referring Provider Surgery; Visit Provider Surgery
PROC: (CPT 37609; principal; 2024-02-12 10:30)
DX: G44.89 Other headache syndrome (principal); I13.0 Hypertensive heart and chronic kidney disease with heart failure and stage 1 through stage 4 chronic kidney disease, or unspecified chronic kidney disease; I50.33 Acute on chronic diastolic (congestive) heart failure; Z68.42 Body mass index [BMI] 45.0-49.9, adult; E11.22 Type 2 diabetes mellitus with diabetic chronic kidney disease; Z79.4 Long term (current) use of insulin; N18.30 Chronic kidney disease, stage 3 unspecified; E66.9 Obesity, unspecified; H54.7 Unspecified visual loss; G47.33 Obstructive sleep apnea (adult) (pediatric); E03.9 Hypothyroidism, unspecified; Z79.82 Long term (current) use of aspirin; Z79.01 Long term (current) use of anticoagulants; Z79.899 Other long term (current) drug therapy; Z79.84 Long term (current) use of oral hypoglycemic drugs; Z95.5 Presence of coronary angioplasty implant and graft
CPT/HCPCS: 37609; 00352; 82962; 88305; 88312; A4648; J7120; J2405

== ENCOUNTER → 2024-02-14 | Outpatient (CLI) | payer MEDICARE, BC, SELFPAY ==
[2019-03-13 13:12] VITALS: BMI 46.6
[2024-02-14 14:57] LABS: Hemoglobin 13.4 g/dL (12.0-15.0); Mean Corp Hgb Conc 31.2 g/dL (32-36); Mean Corpuscular Hgb 27.7 pg (27.0-32.0); Mean Platelet Vol. 9.2 fl (6.2-12.0); POSITIVE COUNT YES; POSITIVE MORPHOLOGY YES; Platelet Count 308 K/mm3 (150-450); RBC Distribution Width CV 15.3 % (11.6-14.6); RBC Distribution Width SD 50.1 fl (35.1-43.9); Red Blood Count 4.83 M/mm3 (4.2-5.4); White Blood Count 17.6 K/mm3 (4.4-11.0)
[2024-02-14 14:58] LABS: Differential Indicated MANUAL DIFF
[2024-02-14 15:42] LABS: CRP < 2.90 mg/L (0.0-3.0)
[2024-02-14 15:44] LABS: Lymphocyte 9 % (19-41); Monocyte 4 % (0-10); Neutrophil-Band 4 % (0-5); Neutrophil-Segmented 83 % (47-70); Total Cells Counted 100 (MANUAL DIFF)
[2024-02-14 15:47] LABS: Absolute Lymphocyte Count 1.58 X10^3/uL (0.83-4.51); Absolute Neutrophil Count 15.3 X10^3/uL (2.0-7.7)
[2024-02-15 14:32] LABS: Pathologist Review Reviewed
== END | disposition home or self-care (01) ==
LOC: PAVLAB 14:40
PROVIDERS: PCP Family Medicine; Referring Provider Ophthalmology; Visit Provider Ophthalmology
DX: M31.6 Other giant cell arteritis (principal); H35.82 Retinal ischemia
CPT/HCPCS: 36415; 85025; 86140

== ENCOUNTER → 2024-02-23 | Outpatient (CLI) | payer MEDICARE, BC, SELFPAY ==
[2019-03-13 13:12] VITALS: BMI 46.6
[2024-02-23 17:43] LABS: Absolute Lymphocyte Count 0.68 X10^3/uL (0.83-4.51); Absolute Neutrophil Count 14.4 X10^3/uL (2.0-7.7); Basophil# 0.02 X10^3/uL; Basophil% 0.1 % (0-1); Hematocrit 43.4 % (37-47); Hemoglobin 13.3 g/dL (12.0-15.0); Lymphocyte # 0.68 X10^3/ul (0.83-4.51); Lymphocyte % 4.3 % (19-41); Mean Corp Hgb Conc 30.6 g/dL (32-36); Mean Corpuscular Hgb 27.9 pg (27.0-32.0); Mean Platelet Vol. 9.3 fl (6.2-12.0); Monocyte# 0.43 X10^3/uL; Monocyte% 2.7 % (0-10); NRBC Flagged by Analyzer 0 % (0-5); Neutrophil # 14.35 X10^3/uL (2.7-7.7); Neutrophil % 89.9 % (47-70); POSITIVE COUNT YES; Platelet Count 174 K/mm3 (150-450); RBC Distribution Width CV 16.1 % (11.6-14.6); RBC Distribution Width SD 53.9 fl (35.1-43.9); Red Blood Count 4.77 M/mm3 (4.2-5.4)
[2024-02-23 18:26] LABS: Erythrocyte Sedimentation Rate 4 mm/hr (0-30)
[2024-02-23 18:35] LABS: ALB/GLOB Ratio 1.2 RATIO (0.9-2.4); AST(SGOT) 18 U/L (15-37); Alanine Aminotransfer ALT/SGPT 40 U/L (13-56); Albumin, Serum 3.3 g/dL (3.2-5.0); Alkaline Phosphatase 58 U/L (45-117); Anion Gap 13 (5-15); BUN 41 mg/dL (7-18); BUN/Creat Ratio 33.6 RATIO (10-20); Calcium,Total 8.2 mg/dL (8.5-10.1); Chloride 103 mmol/L (98-107); Creatinine, Serum 1.22 mg/dL (0.55-1.02); EST Glomerular Filtration Rate 46 mL/min (>60); Est Glom Filt Rate - Afr Amer 56 mL/min (>60); Globulin 2.8 g/dL (2.2-4.2); Glucose 113 mg/dL (74-106); Potassium 4.1 mmol/L (3.5-5.1); Protein, Total 6.1 g/dL (6.4-8.2); Rheumatoid Factor < 10.0 IU/mL (<15); Sodium Level 140 mmol/L (136-145)
[2024-02-23 19:13] LABS: Hepatitis B Surface Antibody Reactive; Hepatitis B Surface Antigen Non-Reactive (Nonreactive); Hepatitis C Antibody Non-Reactive (Nonreactive)
== END | disposition home or self-care (01) ==
LOC: MTLAB 15:45
PROVIDERS: PCP Family Medicine; Referring Provider Internal Medicine Rheumatology; Visit Provider Internal Medicine Rheumatology
DX: M31.6 Other giant cell arteritis (principal); L40.59 Other psoriatic arthropathy; E11.3299 Type 2 diabetes mellitus with mild nonproliferative diabetic retinopathy without macular edema, unspecified eye; E11.22 Type 2 diabetes mellitus with diabetic chronic kidney disease; Z79.52 Long term (current) use of systemic steroids; M17.0 Bilateral primary osteoarthritis of knee; L40.8 Other psoriasis; M47.897 Other spondylosis, lumbosacral region; N18.9 Chronic kidney disease, unspecified; I12.9 Hypertensive chronic kidney disease with stage 1 through stage 4 chronic kidney disease, or unspecified chronic kidney disease; I25.10 Atherosclerotic heart disease of native coronary artery without angina pectoris; E89.0 Postprocedural hypothyroidism; Z87.442 Personal history of urinary calculi; J30.2 Other seasonal allergic rhinitis
CPT/HCPCS: 36415; 80053; 85025; 85652; 86140; 86200; 86431; 86480; 86706; 86803; 87340

== ENCOUNTER → 2024-03-06 | Outpatient (CLI) | payer MEDICARE, BC, SELFPAY ==
[2019-03-13 13:12] VITALS: BMI 46.6
[2024-03-06 18:08] LABS: Erythrocyte Sedimentation Rate 5 mm/hr (0-30)
[2024-03-06 18:13] LABS: CRP < 2.90 mg/L (0.0-3.0)
[2024-03-09 15:08] LABS: CCP IgG Antibodies 3 units (0-19); QNTFERON TB Nil Value 0 IU/mL (.); QNTFERON TB1+ Ag Value 0 IU/mL (.); QNTFERON TB2+ Ag Value 0.01 IU/mL (.); QNTIFERON TB Positive Criteria Negative (Negative)
== END | disposition home or self-care (01) ==
LOC: MTLAB 15:54
PROVIDERS: PCP Family Medicine; Referring Provider Internal Medicine Rheumatology; Visit Provider Internal Medicine Rheumatology
DX: M31.6 Other giant cell arteritis (principal); Z79.52 Long term (current) use of systemic steroids
CPT/HCPCS: 85652; 86140; 86200; 86480

== ENCOUNTER → 2024-03-19 | Outpatient (CLI) | payer MEDICARE, BC, SELFPAY ==
[2019-03-13 13:12] VITALS: BMI 46.6
--- NOTE | 2024-03-19 13:17 | MRI_ITS ---
STUDY: MRI BRAIN WITH AND WITHOUT CONTRAST REASON FOR EXAM: Female, 68 years old. vision loss RIGHT EYE TECHNIQUE: Standardized multiplanar fat and water weighted pulse sequences were obtained. 26ML IV CLARISCAN was administered for the contrast portion of the examination. COMPARISON: CT 02/05/2024 FINDINGS: There is mild cerebral atrophy with widening of the extra-axial spaces and ventricular dilatation. There are a limited number of small white matter hyperintensities, distributed throughout the deep white matter tracts of the cerebral hemispheres, consistent with mild chronic white matter ischemic changes. There is no evidence for recent intracranial ischemia or other cause of cytotoxic edema on diffusion weighted imaging (DWI). Normal T2* images of the brain without demonstrated susceptibility artifact. There is no demonstrated hemosiderin stain. Normal bilateral basal ganglia. Normal thalami. There is no extra-axial fluid accumulation. Normal flow voids within the major intracranial circulation suggesting patency by spin echo criteria. Normal venous enhancement. There is no enhancing intra-axial or extra-axial abnormality. Normal sella turcica, pituitary gland, infundibular stalk, optic chiasm and hypothalamus. Normal tectal plate and pineal gland. Normal midbrain, zack and medulla. Normal cerebellum. Normal basal cisterns. There is moderate chronic otomastoiditis of the right temporal bone. Normal bilateral internal auditory canals. There are bilateral ocular lens implants with otherwise normal intraorbital contents. Normal visualized paranasal sinuses. Normal calvarium and skull base. Normal visualized soft tissue structures. Normal visualized upper cervical spine. MRI/Brain W/WO Contrast IMPRESSION: Involutional changes of the brain, as described above. No acute infarct. Electronically Signed: Jaime Helton MD at 8:35 EDT ,
== END | disposition home or self-care (01) ==
LOC: MRI 13:15
PROVIDERS: PCP Family Medicine; Referring Provider Surgery; Visit Provider Surgery
DX: H54.61 Unqualified visual loss, right eye, normal vision left eye (principal)
CPT/HCPCS: 70553; A9575

== ENCOUNTER → 2024-03-27 | Outpatient (CLI) | payer MEDICARE, BC, SELFPAY ==
[2019-03-13 13:12] VITALS: BMI 46.6
[2024-03-27 15:29] LABS: CRP 3.55 mg/L (0.0-3.0)
[2024-03-27 15:42] LABS: Erythrocyte Sedimentation Rate 19 mm/hr (0-30)
== END | disposition home or self-care (01) ==
PROVIDERS: PCP Family Medicine; Referring Provider Internal Medicine Rheumatology; Visit Provider Internal Medicine Rheumatology
DX: M31.6 Other giant cell arteritis (principal); L40.59 Other psoriatic arthropathy; Z79.52 Long term (current) use of systemic steroids; M17.0 Bilateral primary osteoarthritis of knee
CPT/HCPCS: 36415; 85652; 86140

== ENCOUNTER → 2024-04-08 | Outpatient (CLI) | payer MEDICARE, BC, SELFPAY ==
[2019-03-13 13:12] VITALS: BMI 46.6
[2024-04-08 15:50] LABS: CRP 8.93 mg/L (0.0-3.0)
[2024-04-08 16:03] LABS: Erythrocyte Sedimentation Rate 12 mm/hr (0-30)
== END | disposition home or self-care (01) ==
LOC: MTLAB 13:52
PROVIDERS: PCP Family Medicine; Referring Provider Internal Medicine Rheumatology; Visit Provider Internal Medicine Rheumatology
DX: M31.6 Other giant cell arteritis (principal); L40.59 Other psoriatic arthropathy; M17.0 Bilateral primary osteoarthritis of knee; Z79.52 Long term (current) use of systemic steroids
CPT/HCPCS: 36415; 85652; 86140

== ENCOUNTER → 2024-04-18 | Outpatient (CLI) | payer MEDICARE, BC, SELFPAY ==
[2019-03-13 13:12] VITALS: BMI 46.6
[2024-04-18 15:03] LABS: Erythrocyte Sedimentation Rate 15 mm/hr (0-30)
[2024-04-18 15:14] LABS: CRP 6.09 mg/L (0.0-3.0)
== END | disposition home or self-care (01) ==
LOC: LAB 14:14
PROVIDERS: PCP Family Medicine; Referring Provider Internal Medicine Rheumatology; Visit Provider Internal Medicine Rheumatology
DX: M31.6 Other giant cell arteritis (principal); L40.59 Other psoriatic arthropathy; Z79.52 Long term (current) use of systemic steroids; M17.0 Bilateral primary osteoarthritis of knee
CPT/HCPCS: 36415; 85652; 86140

== ENCOUNTER → 2024-05-07 | Outpatient (CLI) | payer MEDICARE, BC, SELFPAY ==
[2019-03-13 13:12] VITALS: BMI 46.6
[2024-05-07 12:33] LABS: Erythrocyte Sedimentation Rate 2 mm/hr (0-30)
[2024-05-07 12:44] LABS: CRP < 2.90 mg/L (0.0-3.0)
== END | disposition home or self-care (01) ==
LOC: MTLAB 10:06
PROVIDERS: PCP Family Medicine; Referring Provider Internal Medicine Rheumatology; Visit Provider Internal Medicine Rheumatology
DX: M31.6 Other giant cell arteritis (principal); L40.59 Other psoriatic arthropathy; L40.8 Other psoriasis
CPT/HCPCS: 36415; 85652; 86140

== ENCOUNTER 2024-05-09 13:56 | Emergency (ER) | payer MEDICARE, BC, SELFPAY ==
[2019-03-13 13:12] VITALS: BMI 46.6
[2024-05-09 13:57] VITALS: BP 184/61; PULSE 98; RESP 18; TEMP 37.2; O2SAT 96
--- NOTE | 2024-05-09 16:17 | EDS_ITS ---
HPI <MABLE Schultz - Last Filed: 05/09/24 17:54> History of Present Illness Chief Complaint: Rash Narrative Narrative: Patient is a 68-year-old female with history of obesity, diabetes, hypothyroidism, history of giant cell arteritis with right eye blindness presenting to the emergency department for left lower leg swelling, left leg redness. Patient states that it started abruptly this morning. She did go to her inside contractor sales office who then referred her to her PCP and her PCP then referred her to the emerged department. Patient states that it did get more swollen red and painful today, she does have a wound to her anterior tibia, and is here for evaluation. [facility] <MABLE Schultz - Last Filed: 05/09/24 17:54> [facility] Medical History Wears glasses Presence of insulin pump Post-menopausal Psoriasis Walker as ambulation aid Fatty liver History of migraine Seasonal allergies PONV (postoperative nausea and vomiting) Back pain Dietary restriction History of diverticulitis History of GI bleed Gastric reflux Non-smoker BiPAP (biphasic positive airway pressure) dependence Shortness of breath on exertion History of edema History of CHF (congestive heart failure) History of atrial fibrillation History of echocardiogram History of stress test Cardiology follow-up encounter Edema Chest pain, unspecified Diabetes Vitamin D deficiency Osteoporosis Acute on chronic diastolic (congestive) heart failure History of left heart catheterization (LHC) (~03/03/20) Hypothyroidism (acquired) Mixed hyperlipidemia Benign essential hypertension Cataract associated with type 2 diabetes mellitus 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 2 diabetes mellitus NATALIE (obstructive sleep apnea) Abnormal stress test Chest pain Chapman's palsy Thyroid disease Heart murmur Hives Recurrent UTI Bone fracture Back problem Arthritis Kidney stones HTN (hypertension) Anemia Asthma Obesity Home Medications ?Medication ?Instructions ?Recorded ?Last Taken ?Type epinephrine 0.3 mg/0.3 mL 0.3 mg IM ONCE 10/30/17 Unknown History injection, auto-injector (EpiPen) rosuvastatin 20 mg tablet 20 mg PO QDAY Cholesterol 11/22/17 02/11/24 History gabapentin 100 mg capsule 100 - 300 mg PO TID 05/27/20 02/12/24 History pen needle, diabetic 32 gauge x #100 ea 10/01/20 Unknown Rx (BD Ultra-Fine Eva Pen Needle) levothyroxine 175 mcg tablet 175 mcg PO DAILY 10/25/20 02/12/24 History cholecalciferol (vitamin D3) 125 125 mcg PO DAILY 12/02/20 02/11/24 History mcg (5,000 unit) tablet hydrocortisone 2.5 % topical cream 1 applic topical BID PRN Itching 10/15/21 Unknown History melatonin 5 mg tablet 5 mg PO HS PRN Sleep 10/15/21 02/11/24 History triamcinolone acetonide 0.1 % 1 applic topical DAILY 10/15/21 02/11/24 History topical cream spironolactone 25 mg tablet 25 mg PO BID water pill 04/26/22 02/11/24 History metoprolol tartrate 25 mg tablet 25 mg PO DAILY 05/23/22 02/12/24 History clobetasol 0.05 % topical cream 1 applic topical DAILY PRN psorasis 04/06/23 02/11/24 History montelukast 10 mg tablet 10 mg PO QHS 04/06/23 02/11/24 History (Singulair) nitroglycerin 0.4 mg sublingual 0.4 mg sublingual Q5M PRN .CHEST 04/26/23 Unknown Rx tablet PAIN #25 tabs blood-glucose sensor (Dexcom G7 #3 ea 06/08/23 Unknown Rx Sensor device) blood-glucose sensor (Dexcom G7 #3 ea 06/08/23 Unknown Rx Sensor device) blood-glucose meter,continuous #1 ea 06/19/23 Unknown Rx (Dexcom G7 Ui Lead Developer) denosumab 60 mg/mL subcutaneous 60 mg subcut [id number] #1 mL 07/12/23 Unknown Rx syringe (Prolia) nystatin 100,000 unit/gram topical 1 applic topical DAILY #30 grams 11/09/23 02/11/24 Rx cream Trulicity 3 mg/0.5 mL subcutaneous 3 mg (0.5 mL) subcut QWEEK #2 mL 01/04/24 Unknown Rx pen injector (dulaglutide) insulin regular hum U-500 conc 500 See Rx Instructions subcut ONCE 01/04/24 02/11/24 Rx unit/mL(3 mL) subcut pen (Humulin #45 mL R U-500 (Conc) Insulin Kwikpen) clopidogrel 75 mg tablet 75 mg PO DAILY #90 tabs 01/22/24 02/07/24 Rx furosemide 20 mg tablet 20 mg PO .COMPLEX #180 tabs 01/22/24 02/11/24 Rx furosemide 40 mg tablet 40 mg PO .COMPLEX #180 tabs 01/22/24 02/11/24 Rx isosorbide mononitrate 60 mg 60 mg PO DAILY #90 tabs 01/22/24 02/12/24 Rx tablet,extended release 24 hr prednisone 20 mg tablet 80 mg PO DAILY 02/08/24 02/11/24 History omeprazole 20 mg capsule,delayed 20 mg PO QDAY 02/26/24 Unknown History release nystatin 100,000 unit/gram topical 1 applic topical TID #60 grams 03/25/24 Unknown Rx powder potassium chloride 10 mEq 20 meq PO BID 03/25/24 Unknown History tablet,extended release dapagliflozin propanediol 10 mg 10 mg PO DAILY #90 tabs 04/08/24 Unknown Rx tablet (Farxiga) cephalexin 500 mg capsule 500 mg PO Q6 7 days #28 CAPSULES 05/09/24 Unknown Rx Allergy/AdvReac Type Severity Reaction Status Date / Time adhesive Allergy Other Verified 05/09/24 13:57 Fish Containing Products Allergy Hives Verified 05/09/24 13:57 fluconazole (From Diflucan) Allergy Hives Verified 05/09/24 13:57 iodine Allergy Unknown Verified 05/09/24 13:57 orange Allergy Hives Verified 05/09/24 13:57 Penicillins Allergy Unknown Verified 05/09/24 13:57 pioglitazone (From Actos) Allergy Hives Verified 05/09/24 13:57 povidone-iodine (From Allergy Unknown Verified 05/09/24 13:57 Betadine) soap (From Betadine) Allergy Unknown Verified 05/09/24 13:57 Sulfa (Sulfonamide Allergy Unknown Verified 05/09/24 13:57 Antibiotics) sulfamethoxazole (From Allergy Unknown Verified 05/09/24 13:57 Bactrim) tetanus and diphtheria Allergy Hives Verified 05/09/24 13:57 toxoids trimethoprim (From Bactrim) Allergy Unknown Verified 05/09/24 13:57 amlodipine AdvReac Severe Swelling Verified 05/09/24 13:57 Family History Mother Diabetes Heart disease Hypertension High cholesterol Kidney disease Cancer Father Diabetes Hypertension High cholesterol Cancer Sister Cancer Surgical History Presence of stent in coronary artery (~03/13/19) History of surgery History of back surgery Presence of coronary angioplasty implant and graft (~03/13/19) Cataract extraction status, left eye Cataract extraction status, right eye History of left heart catheterization (LHC) H/O colonoscopy H/O right heart catheterization H/O thyroidectomy H/O sinus surgery History of tonsillectomy History of total abdominal hysterectomy H/O arthroscopic knee surgery Hx of cholecystectomy Social History Smoking Status: Never smoker second hand exposure: No alcohol intake: never substance use type: does not use caffeine: Yes Type: carbonated beverages Number of servings: 1 and tea Number of servings: 1 ROS <MABLE Schultz - Last Filed: 05/09/24 17:54> ROS ED ROS Narrative Constitutional: Negative for fever, chills, weight loss, weakness Eyes: Negative for vision loss, vision change, double vision ENT: Negative for any sore throat, ear pain, congestion Cardiovascular: Negative for any chest pain, tightness, palpitations Respiratory: Negative for any cough, sputum production, hemoptysis, dyspnea, dyspnea on exertion, orthopnea Gastrointestinal: Negative for any abdominal pain, nausea, vomiting, diarrhea, constipation, blood in stool, blood in vomit : Negative for any urinary frequency, dysuria, retention, blood in urine Muscle skeletal: Negative for any neck pain, back pain. Positive for left lower leg edema, left leg redness Neurological: Negative for any headache, syncope, dizziness Skin: Negative for any rashes, itching, abrasions, lacerations. Positive for left leg redness Psychiatric: Negative for any depression, anxiety, stress, suicidal ideation, homicidal ideation Hematologic: Negative for any excessive bruising, easy bleeding EXAM <MABLE Schultz - Last Filed: 05/09/24 17:54> Physical Exam Narrative Exam Narrative: Vital signs reviewed. HEET: Head normocephalic atraumatic, TMs clear bilaterally. Posterior pharynx is clear, moist mucous membranes. Nares clear bilaterally. Neck: Supple with no lymphadenopathy or tenderness. No signs of meningismus. Cardiac: Regular rate and rhythm no murmurs gallops or rubs, equal peripheral pulses bilaterally. Respiratory: Lungs clear to auscultation bilaterally. No chest tenderness. Abdomen: Soft, nontender, nondistended. No abdominal bruit or pulsatile masses. No hepatosplenomegaly Extremities: Patient's left lower extremity shows some petechial rash there is circumferential below the knee all the way down to the foot. There is +2 pedal edema. There is audible pedal pulse with Doppler. Active full range of motion of all extremities. Neuro: Cranial nerves II through XII intact, no focal neurological deficits. Skin: Clean dry and intact with no rash, purpura, petechiae, vesicles or pustules. Backs/flank: No CVA tenderness, no midline spinal tenderness, no deformity. Psych: Normal mood and affect. No SI, HI or acute psychosis. Const Vital Signs: 05/09/24 13:57 05/09/24 17:38 Temperature 99 F 97.5 F L Temperature Source Temporal Pulse Rate 98 88 Respiratory Rate 18 16 Blood Pressure 184/61 H 141/67 H Blood Pressure Mean 102 91 Pulse Ox 96 96 Oxygen Delivery Method Room Air Positive well nourished, well developed and obese General Appearance ED: well developed Nutritional Appearance: obese <Dr. Monica Klein DO - Last Filed: 05/17/24 06:49> Physical Exam Const Vital Signs: 05/09/24 13:57 05/09/24 17:38 Temperature 99 F 97.5 F L Temperature Source Temporal Pulse Rate 98 88 Respiratory Rate 18 16 Blood Pressure 184/61 H 141/67 H Blood Pressure Mean 102 91 Pulse Ox 96 96 Oxygen Delivery Method Room Air MDM <MABLE Schultz - Last Filed: 05/09/24 17:54> [facility] Lab Data Labs: Laboratory Results - last 24 hr 05/09/24 15:58 WBC 12.4 H RBC 4.49 Hgb 11.8 L Hct 38.9 MCV 86.6 MCH 26.3 L MCHC 30.3 L RDW Std Deviation 51.8 H RDW Coeff of Barrie 16.6 H Plt Count 187 MPV 9.1 Immature Gran % (Auto) 2.200 H Neut % (Auto) 86.5 H Lymph % (Auto) 5.6 L [place] % (Auto) 5.3 Eos % (Auto) 0.0 Baso % (Auto) 0.4 Absolute Neuts (auto) 10.7 H Absolute Lymphs (auto) 0.69 L Nucleated RBC % 0 PT 13.6 INR 1.0 Sodium 139 Potassium 3.9 Chloride 103 Carbon Dioxide 30.0 Anion Gap 6 BUN 24 H Creatinine 1.31 H Est GFR (MDRD) Af Amer 52 L Est GFR (MDRD) Non-Af 43 L BUN/Creatinine Ratio 18.3 Glucose 150 H Lactic Acid 2.2 H* Calcium 9.7 C-React Prot Ext Range < 2.90 Treatment and Re-Evaluation :: Differential diagnosis includes however is not limited to: Platelet abnormality, cellulitis, DVT, vasculitis Patient appears to be in no obvious distress vital signs are stable. Patient's vital signs are stable. Presenting to the emergency department with worsening pain, redness to the left lower extremity. There was an error with the patient being put in a room and wrong name. Patient will basic laboratory values, PT/INR, lactic acid, CRP. Venous duplex will be ordered. Venous duplex was ordered, venous duplex was negative for any DVT. Currently w aiting on the blood work. Patient CBC shows slight leukocytosis white blood count 12.4, patient's platelet count is within normal limits at 187, this is baseline for the patient over the last 2 months. Patient is likely acid slightly elevated 2.2, glucose 150, creatinine 1.31 which is baseline, CRP is negative at less than 2.9. At this time, there is no evidence of any DVT, significant infection. I did speak with the patient's inside contractor sales, the plan will be to place the patient in a short course of Keflex, the patient will continue to hold her biologic medication, she will follow-up outpatient. The Keflex is for caution secondary to patient being on long-term steroids, her immunocompromise, patient replaced on Keflex 4 times a day for a week. Struck to return for any worsening symptoms. <Dr. Monica Klein, DO - Last Filed: 05/17/24 06:49> [facility] Lab Data Attestation: I reviewed the patient's lab results. Labs: Laboratory Results - last 24 hr 05/09/24 15:58 WBC 12.4 H RBC 4.49 Hgb 11.8 L Hct 38.9 MCV 86.6 MCH 26.3 L MCHC 30.3 L RDW Std Deviation 51.8 H RDW Coeff of Barrie 16.6 H Plt Count 187 MPV 9.1 Immature Gran % (Auto) 2.200 H Neut % (Auto) 86.5 H Lymph % (Auto) 5.6 L [place] % (Auto) 5.3 Eos % (Auto) 0.0 Baso % (Auto) 0.4 Absolute Neuts (auto) 10.7 H Absolute Lymphs (auto) 0.69 L Nucleated RBC % 0 PT 13.6 INR 1.0 Sodium 139 Potassium 3.9 Chloride 103 Carbon Dioxide 30.0 Anion Gap 6 BUN 24 H Creatinine 1.31 H Est GFR (MDRD) Af Amer 52 L Est GFR (MDRD) Non-Af 43 L BUN/Creatinine Ratio 18.3 Glucose 150 H Lactic Acid 2.2 H* Calcium 9.7 C-React Prot Ext Range < 2.90 Treatment and Re-Evaluation :: Differential diagnosis includes however is not limited to: Platelet abnormality, cellulitis, DVT, vasculitis Patient appears to be in no obvious distress vital signs are stable. Patient's vital signs are stable. Presenting to the emergency department with worsening pain, redness to the left lower extremity. There was an error with the patient being put in a room and wrong name. Patient will basic laboratory values, PT/INR, lactic acid, CRP. Venous duplex will be ordered. Venous duplex was ordered, venous duplex was negative for any DVT. Currently waiting on the blood work. Patient CBC shows slight leukocytosis white blood count 12.4, patient's platelet count is within normal limits at 187, this is baseline for the patient over the last 2 months. Patient is likely acid slightly elevated 2.2, glucose 150, creatinine 1.31 which is baseline, CRP is negative at less than 2.9. At this time, there is no evidence of any DVT, significant infection. I did speak with the patient's inside contractor sales, the plan will be to place the patient in a short course of Keflex, the patient will continue to hold her biologic medication, she will follow-up outpatient. The Keflex is for caution secondary to patient being on long-term steroids, her immunocompromise, patient replaced on Keflex 4 times a day for a week. Struck to return for any worsening symptoms. I have personally performed a face to face assessment of the patient and have reviewed the RALPH Note. I performed a substantive portion of the visit including all aspects of the following. My bennett findings include: History is patient is evaluated for atraumatic redness to the left lower extremity. Patient states it started as a small area on her lower leg earlier today and she saw her inside contractor sales, Dr. Dangelo. It got worse and she followed up with her primary care team. They then sent her to the emergency room given the rapid progression. It now involves her lower leg from the knee down and is mostly circumferential. She states she feels well. She has pretty complex medical history recently including high-dose steroids for giant cell arteritis. She is currently being weaned off of her prednisone and is at 25 mg a day. She notes it is mildly painful. She denies any trauma to the area however she does have a very easy bruising because of her steroid use. The rash itself is petechial/ecchymotic in nature. Differential is pretty large including vasculitis, trauma, easy bruising associated with steroids, cellulitis and DVT. Venous duplex is obtained which is negative for DVT. Lab work shows a very mild leukocytosis 12.4 which is nonspecific but she does have a left shift, CKD with a creatinine of 1.31 and a mildly elevated lactate of 2.2 (suspect was falsely elevated as it was not put on ice per family report) and normal CRP. I spoke with patient's inside contractor sales as well about this. Lower suspicion for vasculitis given that is unilateral. Because she is immunosuppressed and the rapid progression will cover with antibiotics in case is early cellulitis however the rash itself does not look cellulitic at this time. She will hold her biologic as instructed. Given close return precautions. I discharged home in stable condition. Other additions or changes: [None] Discharge Plan Triage Chief Complaint: Rash Other Complaint: Lower Extremity Injury ED Midlevel Provider: Harry Dominguez ED Provider: Monica Klein Dx/Rx/DC Orders Clinical Impression: Petechiae, Venous stasis, Wound drainage Instructions: ED Petechiae Prescriptions: New cephalexin 500 mg capsule 500 mg PO Q6 7 Days Qty: 28 0RF No Action rosuvastatin 20 mg tablet 20 mg PO QDAY epinephrine [EpiPen] 0.3 mg/0.3 mL auto-injector 0.3 mg IM ONCE spironolactone 25 mg tablet 25 mg PO BID gabapentin 100 mg capsule 100 - 300 mg PO TID cholecalciferol (vitamin D3) 125 mcg (5,000 unit) tablet 125 mcg PO DAILY (DME) pen needle, diabetic [BD Ultra-Fine Eva Pen Needle] 32 gauge x 5/32 needle See Rx Instructions .ROUTE .MEDSUPPLY Qty: 100 6RF Rx Instructions: tid hydrocortisone 2.5 % cream 1 applic topical BID PRN (Reason: Itching) triamcinolone acetonide 0.1 % cream 1 applic topical DAILY melatonin 5 mg tablet 5 mg PO HS PRN (Reason: Sleep) clobetasol 0.05 % cream 1 applic topical DAILY PRN (Reason: psorasis) montelukast [Singulair] 10 mg tablet 10 mg PO QHS nitroglycerin 0.4 mg tablet, sublingual 0.4 mg SL Q5M PRN (Reason: .CHEST PAIN) Qty: 25 3RF (DME) Dexcom G7 Sensor Device See Rx Instructions .Route Qty: 3 6RF Rx Instructions: As directed (DME) Dexcom G7 Sensor Device See Rx Instructions .Route Qty: 3 0RF Rx Instructions: As directed potassium chloride 10 mEq tablet extended release 20 meq PO BID nystatin 100,000 unit/gram powder 1 applic topical TID Qty: 60 3RF Rx Instructions: must be powder formulation omeprazole 20 mg capsule,delayed release(DR/EC) 20 mg PO QDAY levothyroxine 175 MCG tablet 175 mcg PO DAILY metoprolol tartrate 25 mg tablet 25 mg PO DAILY prednisone 20 mg tablet 80 mg PO DAILY (DME) Dexcom G7 Ui Lead Developer Misc See Rx Instructions .Route Qty: 1 0RF Rx Instructions: As directed Prolia 60 mg/mL syringe 60 mg subcut [id number] Qty: 1 1RF nystatin 100,000 unit/gram cream 1 applic TOPICAL DAILY Qty: 30 0RF Humulin R U-500 (Conc) Kwikpen 500 unit/mL (3 mL) insulin pen See Rx Instructions subcut ONCE Qty: 45 3RF Patient Comments: PT STATES SHE TAKES 300 TID WHILE ON STEROIDS, PT TAKES INSULIN WITH SNACKS. CHECKS BLOOD SUGAR AND TAKES ACCORDINGLY. Rx Instructions: 200 units tid with meals 80 units bid with snacks subcutaneously once; Trulicity 3 mg/0.5 mL pen injector 3 mg subcut QWEEK Qty: 2 3RF Rx Instructions: to be used when 4.5 mg is not avaialble isosorbide mononitrate 60 mg tablet extended release 24 hr 60 mg PO DAILY Qty: 90 3RF clopidogrel 75 mg tablet 75 mg PO DAILY Qty: 90 3RF Patient Comments: HOLDING 02/07/24 FOR PROCEDURE ON 02/12/24 furosemide 40 mg tablet 40 mg PO .COMPLEX Qty: 180 3RF Rx Instructions: 40 mg orally twice a day; takes with a 20 mg tablet to = 60 mg twice a day; furosemide 20 mg tablet 20 mg PO .COMPLEX Qty: 180 3RF Rx Instructions: 20 mg orally twice a day; take with a 40 mg tablet to = 60 mg twice a day; dapagliflozin propanediol [Farxiga] 10 mg tablet 10 mg PO DAILY Qty: 90 1RF Primary Care Provider: Willard Friedman Referrals: Willard Friedman MD [Primary Care Provider] - Activity Restrictions/Additional Instructions: Please take your medication as prescribed. Follow-up outpatient. Print Language: Icelandic Disposition Disposition: Home, Self Care Discharge Date/Time: 05/09/24 18:07
[2024-05-09 16:44] LABS: Absolute Lymphocyte Count 0.69 X10^3/uL (0.83-4.51); Absolute Neutrophil Count 10.7 X10^3/uL (2.0-7.7); Basophil# 0.05 X10^3/uL; Basophil% 0.4 % (0-1); Hematocrit 38.9 % (37-47); Hemoglobin 11.8 g/dL (12.0-15.0); Lymphocyte # 0.69 X10^3/ul (0.83-4.51); Lymphocyte % 5.6 % (19-41); Mean Corp Hgb Conc 30.3 g/dL (32-36); Mean Corpuscular Hgb 26.3 pg (27.0-32.0); Mean Corpuscular Volume 86.6 fL (81-99); Mean Platelet Vol. 9.1 fl (6.2-12.0); Monocyte# 0.65 X10^3/uL; Monocyte% 5.3 % (0-10); NRBC Flagged by Analyzer 0 % (0-5); Neutrophil # 10.69 X10^3/uL (2.7-7.7); Neutrophil % 86.5 % (47-70); Platelet Count 187 K/mm3 (150-450); RBC Distribution Width CV 16.6 % (11.6-14.6); RBC Distribution Width SD 51.8 fl (35.1-43.9); Red Blood Count 4.49 M/mm3 (4.2-5.4); White Blood Count 12.4 K/mm3 (4.4-11.0)
[2024-05-09 16:48] LABS: Prothrombin Time (Protime)PT. 13.6 SECONDS (11.7-14.9)
[2024-05-09 16:50] LABS: Anion Gap 6 (5-15); BUN 24 mg/dL (7-18); BUN/Creat Ratio 18.3 RATIO (10-20); CRP < 2.90 mg/L (0.0-3.0); Calcium,Total 9.7 mg/dL (8.5-10.1); Chloride 103 mmol/L (98-107); Creatinine, Serum 1.31 mg/dL (0.55-1.02); EST Glomerular Filtration Rate 43 mL/min (>60); Est Glom Filt Rate - Afr Amer 52 mL/min (>60); Glucose 150 mg/dL (74-106); Potassium 3.9 mmol/L (3.5-5.1); Sodium Level 139 mmol/L (136-145)
[2024-05-09 16:59] LABS: Lactic Acid 2.2 mmol/L (0.4-1.9)
[2024-05-09 17:38] VITALS: BP 141/67; PULSE 88; RESP 16; TEMP 36.4; O2SAT 96
[2024-05-09] MEDS: Cephalexin 250 MG Capsule 500 MG PO (17:51)
[2024-05-09 20:31] LABS: Reflex Lactate? Y
== END 2024-05-09 18:07 | disposition home or self-care (01) ==
PROVIDERS: Nurse Practitioner; Emergency Provider Emergency Medicine; PCP Family Medicine; Referring Provider Emergency Medicine; Visit Provider Emergency Medicine
DX: R23.3 Spontaneous ecchymoses (principal); I50.9 Heart failure, unspecified; I13.0 Hypertensive heart and chronic kidney disease with heart failure and stage 1 through stage 4 chronic kidney disease, or unspecified chronic kidney disease; M31.6 Other giant cell arteritis; E11.22 Type 2 diabetes mellitus with diabetic chronic kidney disease; N18.30 Chronic kidney disease, stage 3 unspecified; R21 Rash and other nonspecific skin eruption; I87.8 Other specified disorders of veins; E66.9 Obesity, unspecified; E78.2 Mixed hyperlipidemia; E03.9 Hypothyroidism, unspecified; M79.89 Other specified soft tissue disorders; K21.9 Gastro-esophageal reflux disease without esophagitis; Z79.52 Long term (current) use of systemic steroids; D84.9 Immunodeficiency, unspecified
CPT/HCPCS: 80048; 83605; 85025; 85610; 86140; 93971; 99285; A4216

== ENCOUNTER → 2024-06-12 | Outpatient (CLI) | payer MEDICARE, BC, SELFPAY ==
[2019-03-13 13:12] VITALS: BMI 46.6
[2024-06-12 17:49] LABS: CRP 7.22 mg/L (0.0-3.0)
[2024-06-12 18:01] LABS: Erythrocyte Sedimentation Rate 16 mm/hr (0-30)
== END | disposition home or self-care (01) ==
LOC: MTLAB 14:04
PROVIDERS: PCP Family Medicine; Referring Provider Internal Medicine Rheumatology; Visit Provider Internal Medicine Rheumatology
DX: M31.6 Other giant cell arteritis (principal); Z79.52 Long term (current) use of systemic steroids
CPT/HCPCS: 36415; 85652; 86140

== ENCOUNTER → 2024-07-05 | Outpatient (CLI) | payer MEDICARE, BC, SELFPAY ==
[2019-03-13 13:12] VITALS: BMI 46.6
[2024-07-05 17:36] LABS: Erythrocyte Sedimentation Rate 3 mm/hr (0-30)
[2024-07-05 17:52] LABS: CRP < 2.90 mg/L (0.0-3.0)
== END | disposition home or self-care (01) ==
LOC: MTLAB 14:24
PROVIDERS: PCP Family Medicine; Referring Provider Internal Medicine Rheumatology; Visit Provider Internal Medicine Rheumatology
DX: M31.6 Other giant cell arteritis (principal); M17.0 Bilateral primary osteoarthritis of knee; Z79.52 Long term (current) use of systemic steroids
CPT/HCPCS: 36415; 85652; 86140

== ENCOUNTER → 2024-07-31 | Outpatient (CLI) | payer MEDICARE, BC, SELFPAY ==
[2019-03-13 13:12] VITALS: BMI 46.6
[2024-07-31 08:05] LABS: Erythrocyte Sedimentation Rate 1 mm/hr (0-30)
[2024-07-31 09:26] LABS: CRP < 2.90 mg/L (0.0-3.0)
== END | disposition home or self-care (01) ==
LOC: LAB 07:06
PROVIDERS: PCP Family Medicine; Referring Provider Internal Medicine Rheumatology; Visit Provider Internal Medicine Rheumatology
DX: M31.6 Other giant cell arteritis (principal); L40.59 Other psoriatic arthropathy; L40.8 Other psoriasis; Z79.52 Long term (current) use of systemic steroids
CPT/HCPCS: 36415; 85652; 86140

== ENCOUNTER → 2024-09-30 | Outpatient (CLI) | payer MEDICARE, BC, SELFPAY ==
[2019-03-13 13:12] VITALS: BMI 46.6
[2024-09-30 17:50] LABS: Absolute Lymphocyte Count 1.11 X10^3/uL (0.83-4.51); Basophil# 0.05 X10^3/uL; Basophil% 0.4 % (0-1); Eosinophil# 0.11 X10^3/uL; Hematocrit 40.1 % (37-47); Hemoglobin 11.7 g/dL (12.0-15.0); Lymphocyte # 1.11 X10^3/ul (0.83-4.51); Lymphocyte % 9.9 % (19-41); Mean Corp Hgb Conc 29.2 g/dL (32-36); Mean Corpuscular Hgb 25.8 pg (27.0-32.0); Mean Corpuscular Volume 88.5 fL (81-99); Mean Platelet Vol. 9.1 fl (6.2-12.0); Monocyte# 0.71 X10^3/uL; Monocyte% 6.3 % (0-10); NRBC Flagged by Analyzer 0.3 % (0-5); Neutrophil % 80.3 % (47-70); Platelet Count 211 K/mm3 (150-450); RBC Distribution Width CV 16.5 % (11.6-14.6); RBC Distribution Width SD 53.1 fl (35.1-43.9); Red Blood Count 4.53 M/mm3 (4.2-5.4); White Blood Count 11.2 K/mm3 (4.4-11.0)
[2024-09-30 18:02] LABS: ALB/GLOB Ratio 1.4 RATIO (0.9-2.4); AST(SGOT) 21 U/L (15-37); Alanine Aminotransfer ALT/SGPT 36 U/L (13-56); Albumin, Serum 3.7 g/dL (3.2-5.0); Alkaline Phosphatase 52 U/L (45-117); Anion Gap 10 (5-15); BUN 15 mg/dL (7-18); BUN/Creat Ratio 10.5 RATIO (10-20); CRP < 2.90 mg/L (0.0-3.0); Calcium,Total 9.2 mg/dL (8.5-10.1); Chloride 106 mmol/L (98-107); Creatinine, Serum 1.43 mg/dL (0.55-1.02); EST Glomerular Filtration Rate 39 mL/min (>60); Est Glom Filt Rate - Afr Amer 47 mL/min (>60); Globulin 2.7 g/dL (2.2-4.2); Glucose 83 mg/dL (74-106); Potassium 3.6 mmol/L (3.5-5.1); Protein, Total 6.4 g/dL (6.4-8.2); Sodium Level 142 mmol/L (136-145)
[2024-09-30 18:06] LABS: Erythrocyte Sedimentation Rate 1 mm/hr (0-30)
== END | disposition home or self-care (01) ==
LOC: MTLAB 14:14
PROVIDERS: PCP Family Medicine; Referring Provider Internal Medicine Rheumatology; Visit Provider Internal Medicine Rheumatology
DX: M17.0 Bilateral primary osteoarthritis of knee (principal); L40.59 Other psoriatic arthropathy; M31.6 Other giant cell arteritis; Z79.52 Long term (current) use of systemic steroids
CPT/HCPCS: 36415; 80053; 85025; 85652; 86140

== ENCOUNTER → 2024-10-31 | Outpatient (CLI) | payer MEDICARE, BC, SELFPAY ==
[2019-03-13 13:12] VITALS: BMI 46.6
[2024-10-31 17:37] LABS: Erythrocyte Sedimentation Rate < 1 mm/hr (0-30)
[2024-10-31 19:27] LABS: CRP < 3.00 mg/L (0.0-3.0)
== END | disposition home or self-care (01) ==
LOC: MTLAB 15:46
PROVIDERS: PCP Family Medicine; Referring Provider Internal Medicine Rheumatology; Visit Provider Internal Medicine Rheumatology
DX: M31.6 Other giant cell arteritis (principal); Z79.52 Long term (current) use of systemic steroids
CPT/HCPCS: 36415; 85652; 86140

== ENCOUNTER 2024-11-29 14:59 | Emergency (ER) | payer MEDICARE, BC, SELFPAY ==
[2019-03-13 13:12] VITALS: BMI 46.6
[2024-11-29] VITALS (7 sets, daily range): BP systolic 122–163; BP diastolic 60–87; PULSE 72–83; RESP 15–21; TEMP 36.6; O2SAT 92–99; BMI 58.7
--- NOTE | 2024-11-29 15:04 | EKG12_ITS ---
Test Reason : SOB/CP Blood Pressure : */* mmHG Vent. Rate : 76 BPM Atrial Rate : 76 BPM P-R Int : 138 ms QRS Dur : 78 ms QT Int : 410 ms P-R-T Axes : 37 -9 23 degrees QTcB Int : 461 ms Normal sinus rhythm Low voltage QRS Borderline ECG Confirmed by IVAN ADRIAN MD ([id number]), video effects editor MAGED COY ([id number]) on 12/02/2024 9:22:08 AM Referred By: Confirmed By: IVAN ADRIAN MD
--- NOTE | 2024-11-29 15:38 | RAD_ITS ---
PROCEDURE: CHEST PA AND LATERAL 11/29/2024 REASON FOR EXAM: DYSPNEA TECHNIQUE: Frontal and lateral views of the chest. FINDINGS: Mild infrahilar pulmonary opacities are present bilaterally. No pleural effusion or pneumothorax. The cardiomediastinal silhouette is unremarkable. No acute osseous or soft tissue abnormality. RAD/Chest PA and Lateral IMPRESSION: Mild infrahilar pulmonary opacities, likely due to pulmonary edema. Reading Location: [facility]
--- NOTE | 2024-11-29 15:38 | ED.VIS.DYS ---
HPI History of Present Illness Chief Complaint: Chest Pain Detail of Chief Complaint: Shortness of breath for 3 weeks getting worse the last 2 weeks. Informant: patient and spouse/S.O. Onset/Context/Timing Onset: Weeks Context: gradual Timing: Continuous Quality: Positive for Dyspnea on exertion Current Severity: Mild Maximum Severity: Moderate Associated Symptoms Chest Pain: Positive for Intermittent and Sharp Narrative Narrative: 69-year-old female history of CAD with 3 stents chronic kidney disease, diabetes and giant cell arteritis. Patient been on steroids since last January. Has been on 70 pounds. States manage really she has been more short of breath and worse in the last 2 weeks. Intermittent sharp chest pain. No history of DVT or PE. Saw her primary care physician this week is in the ER today. Once all her ensemble member earlier in the week. We wanted do left walking pulse ox test ordered think she may need oxygen but they do not live as of yet. PE Risk Factors: Negative for Cancer, OCP + Smoking + > 35, Prior DVT or PE, Recent immobilization, Recent surgery or Recent travel Prior similar symptoms: Yes Recent Illness/Hospitalization: No PFSH PFSH Medical History Giant cell arteritis Wears glasses Post-menopausal Psoriasis Walker as ambulation aid Fatty liver History of migraine Seasonal allergies PONV (postoperative nausea and vomiting) Back pain Dietary restriction History of diverticulitis History of GI bleed Gastric reflux Non-smoker BiPAP (biphasic positive airway pressure) dependence Shortness of breath on exertion History of edema History of CHF (congestive heart failure) History of atrial fibrillation History of echocardiogram History of stress test Cardiology follow-up encounter Edema Chest pain, unspecified Diabetes Vitamin D deficiency Osteoporosis Acute on chronic diastolic (congestive) heart failure History of left heart catheterization (LHC) (~03/03/20) Hypothyroidism (acquired) Mixed hyperlipidemia Benign essential hypertension Cataract associated with type 2 diabetes mellitus 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 2 diabetes mellitus NATALIE (obstructive sleep apnea) Abnormal stress test Chest pain Chapman's palsy Thyroid disease Heart murmur Hives Recurrent UTI Bone fracture Back problem Arthritis Kidney stones HTN (hypertension) Anemia Asthma Obesity Home Medications ?Medication ?Instructions ?Recorded ?Last Taken ?Type epinephrine 0.3 mg/0.3 mL 0.3 mg IM ONCE 10/30/17 Unknown History injection, auto-injector (EpiPen) rosuvastatin 20 mg tablet 20 mg PO QDAY Cholesterol 11/22/17 02/11/24 History gabapentin 100 mg capsule 100 - 300 mg PO TID 05/27/20 02/12/24 History pen needle, diabetic 32 gauge x #100 ea 10/01/20 Unknown Rx (BD Ultra-Fine Eva Pen Needle) cholecalciferol (vitamin D3) 125 125 mcg PO DAILY 12/02/20 02/11/24 History mcg (5,000 unit) tablet hydrocortisone 2.5 % topical cream 1 applic topical BID PRN Itching 10/15/21 Unknown History spironolactone 25 mg tablet 25 mg PO BID water pill 04/26/22 02/11/24 History metoprolol tartrate 25 mg tablet 25 mg PO DAILY 05/23/22 02/12/24 History clobetasol 0.05 % topical cream 1 applic topical DAILY PRN psorasis 04/06/23 02/11/24 History montelukast 10 mg tablet 10 mg PO QHS 04/06/23 02/11/24 History (Singulair) nitroglycerin 0.4 mg sublingual 0.4 mg sublingual Q5M PRN .CHEST 04/26/23 Unknown Rx tablet PAIN #25 tabs blood-glucose sensor (Dexcom G7 #3 ea 06/08/23 Unknown Rx Sensor device) blood-glucose sensor (Dexcom G7 #3 ea 06/08/23 Unknown Rx Sensor device) blood-glucose meter,continuous #1 ea 06/19/23 Unknown Rx (Dexcom G7 Assembler Final) denosumab 60 mg/mL subcutaneous 60 mg subcut [id number] #1 mL 07/12/23 Unknown Rx syringe (Prolia) clopidogrel 75 mg tablet 75 mg PO DAILY #90 tabs 01/22/24 02/07/24 Rx furosemide 20 mg tablet 20 mg PO .COMPLEX #180 tabs 01/22/24 02/11/24 Rx furosemide 40 mg tablet 40 mg PO .COMPLEX #180 tabs 01/22/24 02/11/24 Rx isosorbide mononitrate 60 mg 60 mg PO DAILY #90 tabs 01/22/24 02/12/24 Rx tablet,extended release 24 hr omeprazole 20 mg capsule,delayed 20 mg PO QDAY 02/26/24 Unknown History release potassium chloride 10 mEq 20 meq PO BID 03/25/24 Unknown History tablet,extended release levothyroxine 175 mcg tablet 175 mcg PO .6xw 07/08/24 Unknown History melatonin 10 mg capsule 10 mg PO HS PRN sleep 10/23/24 Unknown History tocilizumab 162 mg/0.9 mL mg subcut QWEEK 10/23/24 Unknown History subcutaneous pen injector (Actemra ACTPen) dapagliflozin propanediol 10 mg 10 mg PO DAILY #90 tabs 11/11/24 Unknown Rx tablet (Farxiga) dulaglutide 4.5 mg/0.5 mL 4.5 mg (0.5 mL) subcut QWEEK #6 mL 11/11/24 Unknown Rx subcutaneous pen injector (Trulicity) insulin regular hum U-500 conc 500 See Rx Instructions subcut ONCE 11/11/24 Unknown Rx unit/mL(3 mL) subcut pen (Humulin #45 mL R U-500 (Conc) Insulin Kwikpen) famotidine 20 mg tablet 20 mg PO BID 11/27/24 Unknown History prednisone 20 mg tablet 7.5 mg PO DAILY 11/27/24 Unknown History apixaban 5 mg (74 tabs) tablets in See Rx Instructions .Route 11/29/24 Unknown Rx a dose pack (Vigilix DVT-PE Treat .COMPLEX #74 tabs 30D Start) nystatin 100,000 unit/gram topical 1 applic topical DAILY PRN yeast 11/29/24 Unknown History cream infection nystatin 100,000 unit/gram topical 1 applic topical TID PRN yeast 11/29/24 Unknown History powder dematitis Allergy/AdvReac Type Severity Reaction Status Date / Time adhesive Allergy Other Verified 11/29/24 15:00 Fish Containing Products Allergy Hives Verified 11/29/24 15:00 fluconazole (From Diflucan) Allergy Hives Verified 11/29/24 15:00 iodine Allergy Unknown Verified 11/29/24 15:00 orange Allergy Hives Verified 11/27/24 14:40 Penicillins Allergy Unknown Verified 11/29/24 15:00 pioglitazone (From Actos) Allergy Hives Verified 11/29/24 15:00 povidone-iodine (From Allergy Unknown Verified 11/29/24 15:00 Betadine) soap (From Betadine) Allergy Unknown Verified 11/29/24 15:00 Sulfa (Sulfonamide Allergy Unknown Verified 11/29/24 15:00 Antibiotics) sulfamethoxazole (From Allergy Unknown Verified 11/29/24 15:00 Bactrim) tetanus and diphtheria Allergy Hives Verified 11/29/24 15:00 toxoids trimethoprim (From Bactrim) Allergy Unknown Verified 11/29/24 15:00 amlodipine AdvReac Severe Swelling Verified 11/29/24 15:00 Family History Mother Diabetes Heart disease Hypertension High cholesterol Kidney disease Cancer Father Diabetes Hypertension High cholesterol Cancer Sister Cancer Surgical History Presence of stent in coronary artery (~03/13/19) History of surgery History of back surgery Presence of coronary angioplasty implant and graft (~03/13/19) Cataract extraction status, left eye Cataract extraction status, right eye History of left heart catheterization (LHC) H/O colonoscopy H/O right heart catheterization H/O thyroidectomy H/O sinus surgery History of tonsillectomy History of total abdominal hysterectomy H/O arthroscopic knee surgery Hx of cholecystectomy Social History Smoking Status: Never smoker second hand exposure: No alcohol intake: never substance use type: does not use caffeine: Yes Type: carbonated beverages Number of servings: 1 and tea Number of servings: 1 ROS ROS ED ROS Narrative Shortness of breath. Constitutional Constitutional ED: Denies chills Eyes Eyes: Denies blurry vision ENT ENT ED: Denies ear pain Cardiovascular Cardiovascular: Reports chest pain and racing heartbeat; Denies palpitations Respiratory/Chest Respiratory/Chest: Reports dyspnea and dyspnea on exertion Gastrointestinal Gastrointestinal: Denies abdominal pain Genitourinary Genitourinary ED: Denies dysuria or hematuria Musculoskeletal Musculoskeletal: Denies arthralgias, back pain or myalgias Integumentary Denies abscess or Abrasions Neurologic Neurologic: Denies headache(s) Psychiatric Psychiatric: Denies anxiety Endocrine Endocrinology: Denies cold intolerance Hematologic/Lymphatic Hematologic/Lymphatic: Denies easy bleeding, easy bruising or lymphadenopathy Allergic/Immunologic Allergic/Immunologic ED: Denies mouth swelling, tongue swelling or urticaria EXAM Physical Exam Narrative Exam Narrative: 69-year-old female sitting upright in bed. If she does not exert herself she clinically looks well. Pulse ox is 94 to 100% on room air no signs of hypoxia. H EENT exam unremarkable. Moist mucous membranes. Neck nontender no JVD. No lymphadenopathy. Lungs clear to auscultation bilaterally. Heart regular rhythm rate about 80 no murmur. Chest wall ribs nontender. Abdomen soft nontender. Obese. Moving all 4 extremities. Bilateral lower extremity edema. Anterior shins are tender from the swelling. Dorsi plantarflexion is intact. Neurologically she is awake alert. Answer questions following commands. Const Vital Signs: 11/29/24 15:01 11/29/24 15:04 11/29/24 16:00 Temperature 97.8 F Temperature Source Oral Pulse Rate 83 79 Respiratory Rate 16 21 H Blood Pressure 163/73 H 127/63 H Blood Pressure Mean 103 84 Pulse Ox 94 99 93 Oxygen Delivery Method Room Air Room Air Room Air 11/29/24 17:00 11/29/24 18:00 11/29/24 19:00 Temperature Temperature Source Pulse Rate 72 77 74 Respiratory Rate 18 15 Blood Pressure 145/64 H 122/60 H 134/87 H Blood Pressure Mean 91 80 102 Pulse Ox 95 97 Oxygen Delivery Method Room Air Room Air 11/29/24 20:00 Temperature Temperature Source Pulse Rate 75 Respiratory Rate 21 H Blood Pressure 147/70 H Blood Pressure Mean 95 Pulse Ox 92 Oxygen Delivery Method Room Air Positive well nourished, well developed and obese; Negative for cachectic, contractures or unkempt General Appearance ED: well developed and NAD; Negative for unkempt, cachectic, contractures or pallor Nutritional Appearance: obese; Negative for cachectic HEENT Reports moist mucous membranes Negative for atraumatic, trauma or tenderness Eyes PERRL and EOMs intact bilaterally General Eye ED: Negative for pale conjunctiva or scleral icterus Neck no lymphadenopathy, supple, no meningeal signs and no JVD Resp normal respiratory effort and clear to auscultation bilaterally Effort and Inspection: Negative for pain with movement Auscultation: Negative for rales, rhonchi, wheezes or diminished lung sounds Cardio regular rate, regular rhythm, S1 normal heart sound and S2 normal heart sound Rate: Negative for bradycardia or tachycardic GI non-tender, non-distended and no masses Palpation: soft; Negative for tender, guarding or rebound tenderness present Back/Spine no CVA tenderness and normal to inspection Extremity Negative for normal to inspection Extremity Narrative: Bilateral anterior azevedo tenderness. Swelling. No calf tenderness. General Extremety ED: Yes edema and tenderness General Extremity: edema Neuro oriented x3 and CN's II-XII intact bilaterally Sensorium / Orientation: alert, oriented to person, oriented to place and oriented to time; Negative for orientation impaired, confused, lethargic or stuporous Motor Exam: strength 5/5 throughout Psych mental status grossly normal Appearance: Negative for unkempt Attitude: No agitated and No other Mood & Affect: Negative for depressed, anxious or tearful Skin no wounds General Skin Exam: Negative for jaundice or pallor Lesions: no lesions Rashes: no rashes MDM MDM MDM Narrative Medical decision making narrative: 69-year-old female with exertional dyspnea for the last 3 weeks worse the last 2 weeks. Differential would include CHF, pleural effusions, PE, dysrhythmia, anemia, etc. She will undergo a cardiac workup. Repeat exam patient is doing well at 5:50 PM. She had a significant anaphylactic reaction before to iodine she does not want a CAT scan to evaluate for PE. I am obtaining a D-dimer. D-dimer was elevated. Patient had prior reactions that she was pretreated with Solu-Medrol and Benadryl. Had a CTA which showed bilateral pulmonary emboli. She will be started on Eliquis. Discharged to home. On repeat exam at 940 she is stable. Her pulse ox is in the mid 90s. I went over the diagnosis with both her and her . They are comfortable with her being discharged home with outpatient follow-up with her primary care physician next week and her ensemble member next week. I have the primary care physician on page prior to discharge. History & Record Review Discussion w/independent historian: Patient and Family Additional record(s) reviewed:: Prior inpatient record, Prior outpatient record, Prior ED visit and Prior labs Lab Data Attestation: I reviewed the patient's lab results. Lab results narrative: CBC shows a white count 9. H&H 11.0 and 35. Platelets 200. Electrolytes show sodium 141. Gap is 24 which I think is erroneous. BUN is 19 and creatinine is 1.2. Glucose is 178. Initial troponin is 23. D-dimer is elevated at 1.81. Labs: Laboratory Results - last 24 hr 11/29/24 11/29/24 15:41 15:45 WBC 9.6 RBC 4.17 L Hgb 11.0 L Hct 35.7 L MCV 85.6 MCH 26.4 L MCHC 30.8 L RDW Std Deviation 51.7 H RDW Coeff of Barrie 16.6 H Plt Count 200 MPV 9.0 Immature Gran % (Auto) 2.300 H Neut % (Auto) 79.4 H Lymph % (Auto) 10.1 L [place] % (Auto) 6.9 Eos % (Auto) 0.8 Baso % (Auto) 0.5 Absolute Neuts (auto) 7.6 Absolute Lymphs (auto) 0.97 Nucleated RBC % 0.4 D-Dimer Quant (PE/DVT) 1.81 H* Sodium 141 Potassium 3.9 Chloride 104 Carbon Dioxide 12.3 L Anion Gap 24 H BUN 9 Creatinine 1.20 Est GFR (MDRD) Non-Af 49 L BUN/Creatinine Ratio 7.7 L Glucose 178 H Calcium 9.2 Troponin T High Sens 23 H NT pro BNP II 277 Radiography Chest X-Ray - ED: 2 View, Read by ED Physician, Read by Radiologist, Normal, Heart, Lungs, Mediastinum, Bony Structures, No Acute Disease and Chronic Changes Diagnostic Testing: Clinical Impression(s) from Imaging Studies Chest X-Ray 11/29/24 15:38 IMPRESSION: Mild infrahilar pulmonary opacities, likely due to pulmonary edema. Reading Location: [facility] Chest CTA 11/29/24 19:05 IMPRESSION: Study is positive for bilateral multifocal partially occlusive distal hilar interlobar artery and segmental branches pulmonary embolism. No large saddle central pulmonary embolism. LV to RV ratio appears within limits without CT findings to suggest right heart strain at this time. Small somewhat wedge-shaped opacity at the right posterior recesses for example axial 72 can not exclude small infarct. Recommend follow-up to resolution. Posterior soft tissue changes and partial T10 hemilaminectomy sagittal 172, clinically correlate. Findings were discussed by myself by phone with Dr. Vital at 9:05 p.m. 11/29/2024. Reading Location: [id number] Chest x-ray, 2 views, AP and lateral, interpreted by myself and radiologist. Shows chronic changes no acute process. CTA of the chest was done and she was pretreated with Solu-Medrol and Benadryl due to her prior iodine reaction. The CTA showed bilateral pulmonary emboli. But no heart strain. I did discuss this with the radiologist who read the CT. Rhythm Strip Rhythm Strip: Sinus Rhythm Rate: 76 EKG Initial EKG: Attestation: I personally reviewed and interpreted this EKG as follows: Interpretation: Sinus Rhythm and No Acute Injury Pattern Comments: Normal sinus rhythm rate of 76 no acute signs of VA or ischemia. Discharge Plan Triage Chief Complaint: Chest Pain ED Provider: Glen Vital Dx/Rx/DC Orders Clinical Impression: Bilateral pulmonary embolism, Exertional dyspnea, Hx of heart artery stent, History of diabetes mellitus Instructions: Embolism Pulmonary Dc Prescriptions: New Eliquis DVT-PE Treat 30D Start 5 mg (74 tabs) tablets,dose pack See Rx Instructions .Route .COMPLEX Qty: 74 0RF Rx Instructions: orally per package directions No Action rosuvastatin 20 mg tablet 20 mg PO QDAY epinephrine [EpiPen] 0.3 mg/0.3 mL auto-injector 0.3 mg IM ONCE spironolactone 25 mg tablet 25 mg PO BID gabapentin 100 mg capsule 100 - 300 mg PO TID cholecalciferol (vitamin D3) 125 mcg (5,000 unit) tablet 125 mcg PO DAILY (DME) pen needle, diabetic [BD Ultra-Fine Eva Pen Needle] 32 gauge x 5/32 needle See Rx Instructions .ROUTE .MEDSUPPLY Qty: 100 6RF Rx Instructions: tid hydrocortisone 2.5 % cream 1 applic topical BID PRN (Reason: Itching) clobetasol 0.05 % cream 1 applic topical DAILY PRN (Reason: psorasis) montelukast [Singulair] 10 mg tablet 10 mg PO QHS nitroglycerin 0.4 mg tablet, sublingual 0.4 mg SL Q5M PRN (Reason: .CHEST PAIN) Qty: 25 3RF (DME) Dexcom G7 Sensor Device See Rx Instructions .Route Qty: 3 6RF Rx Instructions: As directed (DME) Dexcom G7 Sensor Device See Rx Instructions .Route Qty: 3 0RF Rx Instructions: As directed potassium chloride 10 mEq tablet extended release 20 meq PO BID omeprazole 20 mg capsule,delayed release(DR/EC) 20 mg PO QDAY famotidine 20 mg tablet 20 mg PO BID dapagliflozin propanediol [Farxiga] 10 mg tablet 10 mg PO DAILY Qty: 90 1RF Trulicity 4.5 mg/0.5 mL pen injector 4.5 mg subcut QWEEK Qty: 6 1RF Patient Comments: takes it on Mondays Humulin R U-500 (Conc) Kwikpen 500 unit/mL (3 mL) insulin pen See Rx Instructions subcut ONCE Qty: 45 3RF Patient Comments: PT STATES SHE TAKES 300 TID WHILE ON STEROIDS, PT TAKES INSULIN WITH SNACKS. CHECKS BLOOD SUGAR AND TAKES ACCORDINGLY. Rx Instructions: 200 units tid with meals 80 units bid with snacks subcutaneously once; melatonin 10 mg capsule 10 mg PO HS PRN (Reason: sleep) Actemra ACTPen 162 mg/0.9 mL pen injector subcut QWEEK Patient Comments: [NO ORIGINAL SIG] levothyroxine 175 mcg tablet 175 mcg PO .6xw Patient Comments: does not take it on Sundays. metoprolol tartrate 25 mg tablet 25 mg PO DAILY prednisone 20 mg tablet 7.5 mg PO DAILY nystatin 100,000 unit/gram cream 1 applic TOPICAL DAILY PRN (Reason: yeast infection) nystatin 100,000 unit/gram powder 1 applic topical TID PRN (Reason: yeast dematitis) Rx Instructions: must be powder formulation (DME) Dexcom G7 Assembler Final Misc See Rx Instructions .Route Qty: 1 0RF Rx Instructions: As directed Prolia 60 mg/mL syringe 60 mg subcut [id number] Qty: 1 1RF isosorbide mononitrate 60 mg tablet extended release 24 hr 60 mg PO DAILY Qty: 90 3RF clopidogrel 75 mg tablet 75 mg PO DAILY Qty: 90 3RF furosemide 40 mg tablet 40 mg PO .COMPLEX Qty: 180 3RF Rx Instructions: 40 mg orally twice a day; takes with a 20 mg tablet to = 60 mg twice a day; furosemide 20 mg tablet 20 mg PO .COMPLEX Qty: 180 3RF Rx Instructions: 20 mg orally twice a day; take with a 40 mg tablet to = 60 mg twice a day; Primary Care Provider: Willard Friedman Referrals: Willard Friedman MD [Primary Care Provider] - As soon as possible Activity Restrictions/Additional Instructions: You have blood clots in both sides your lungs. That is why you get short of breath. You will be started on the blood thinner Eliquis. Take as prescribed. You need to follow-up with your primary care physician Dr. Friedman for further evaluation. You also need to follow-up with the ensemble member Dr. Florez. Call their office on Monday let them know you were seen emergency department and you were diagnosed with blood clots. Print Language: Occitan Disposition Disposition: Home, Self Care
[2024-11-29 15:56] LABS: Absolute Lymphocyte Count 0.97 X10^3/uL (0.83-4.51); Absolute Neutrophil Count 7.6 X10^3/uL (2.0-7.7); Basophil# 0.05 X10^3/uL; Basophil% 0.5 % (0-1); Eosinophil# 0.08 X10^3/uL; Eosinophils% 0.8 % (0-5); Hematocrit 35.7 % (37-47); Lymphocyte # 0.97 X10^3/ul (0.83-4.51); Lymphocyte % 10.1 % (19-41); Mean Corp Hgb Conc 30.8 g/dL (32-36); Mean Corpuscular Hgb 26.4 pg (27.0-32.0); Mean Corpuscular Volume 85.6 fL (81-99); Monocyte# 0.66 X10^3/uL; Monocyte% 6.9 % (0-10); NRBC Flagged by Analyzer 0.4 % (0-5); Neutrophil # 7.64 X10^3/uL (2.7-7.7); Neutrophil % 79.4 % (47-70); Platelet Count 200 K/mm3 (150-450); RBC Distribution Width CV 16.6 % (11.6-14.6); RBC Distribution Width SD 51.7 fl (35.1-43.9); Red Blood Count 4.17 M/mm3 (4.2-5.4); White Blood Count 9.6 K/mm3 (4.4-11.0)
[2024-11-29 16:17] LABS: Anion Gap 24 (5-15); BUN 9 mg/dL (4-19); BUN/Creat Ratio 7.7 RATIO (10-20); Calcium,Total 9.2 mg/dL (7.6-11.0); Carbon Dioxide 12.3 mmol/L (21.0-32.0); Chloride 104 mmol/L (98-108); EST Glomerular Filtration Rate 49 (>60); Glucose 178 mg/dL (70-99); Potassium 3.9 mmol/L (3.3-5.1); Sodium Level 141 mmol/L (133-145); Troponin T High Sensitivity 23 ng/L (<=14)
--- NOTE | 2024-11-29 17:52 | ED.RN ---
PT CAME TO ED WITH C/O SOB WITH EXERTION AND CHEST PAIN THAT STARTED LAST NIGHT. PT WAS SENT OVER FROM [facility]. BNP AND TROP DONE AND EKG DONE IN TRIAGE. PT VS ARE STABLE. AT THE BEDSIDE.
[2024-11-29 17:58] LABS: Pro- Brain NATRIURETIC PEPTIDE 277 pg/mL (<=900)
[2024-11-29 18:14] LABS: D-Dimer Quantitative (DVT/PE) 1.81 FEU/ug/m (0.27-0.49)
--- NOTE | 2024-11-29 19:05 | CT_ITS ---
EXAM: CTA CHEST W/WO CONTRAST 11/29/2024 CLINICAL HISTORY: Dyspnea and elevated D-dimer will be pretreated COMPARISON: Preceding radiographs TECHNIQUE: CTA of the chest with coronal and sagittal and MIP reformatted images. 96 cc Isovue 370 contrast FINDINGS: Study is positive for bilateral multifocal partially occlusive distal hilar interlobar artery and segmental branches pulmonary embolism. No large saddle central pulmonary embolism. LV to RV ratio appears within limits without CT findings to suggest right heart strain at this time. Thoracic aorta appears within limits. Apparent thyroidectomy. Coronary calcification and/or stents greatest circumflex. No pericardial or pleural effusion. No adenopathy identified. Images of the upper abdomen appear within limits. Status post cholecystectomy. The central airways are patent. Small somewhat wedge-shaped opacity at the right posterior recesses for example axial 72 can not exclude small infarct. Recommend follow-up to resolution. Posterior soft tissue changes and partial T10 hemilaminectomy sagittal 172, clinically correlate. Large sclerotic focus within the right humeral head coronal 162 may represent bone island or bone infarct and is visible on radiographs 08/08/2018. CT/CTA Chest W/WO Contrast IMPRESSION: Study is positive for bilateral multifocal partially occlusive distal hilar int erlobar artery and segmental branches pulmonary embolism. No large saddle central pulmonary embolism. LV to RV ratio appears within limits without CT findings to suggest right heart strain at this time. Small somewhat wedge-shaped opacity at the right posterior recesses for example axial 72 can not exclude small infarct. Recommend follow-up to resolution. Posterior soft tissue changes and partial T10 hemilaminectomy sagittal 172, cli nically correlate. Findings were discussed by myself by phone with Dr. Vital at 9:05 p.m. 025. Reading Location: [id number]
[2024-11-29] MEDS: DiphenhydrAMINE 50 MG/ML Syringe IV (19:15)
[2024-11-29] MEDS: MethylPREDNISolone 125 MG/2 ML Vial IV (19:15)
[2024-11-29] MEDS: DiphenhydrAMINE 50 MG/ML Syringe 25 MG IV (21:07)
== END 2024-11-29 22:11 | disposition home or self-care (01) ==
PROVIDERS: Emergency Provider Emergency Medicine; PCP Family Medicine; Visit Provider Emergency Medicine
DX: I26.99 Other pulmonary embolism without acute cor pulmonale (principal); I13.0 Hypertensive heart and chronic kidney disease with heart failure and stage 1 through stage 4 chronic kidney disease, or unspecified chronic kidney disease; I50.32 Chronic diastolic (congestive) heart failure; M31.6 Other giant cell arteritis; E11.22 Type 2 diabetes mellitus with diabetic chronic kidney disease; Z79.4 Long term (current) use of insulin; I25.10 Atherosclerotic heart disease of native coronary artery without angina pectoris; E78.2 Mixed hyperlipidemia; G47.33 Obstructive sleep apnea (adult) (pediatric); E03.9 Hypothyroidism, unspecified; Z79.02 Long term (current) use of antithrombotics/antiplatelets; Z79.85 Long-term (current) use of injectable non-insulin antidiabetic drugs; Z79.52 Long term (current) use of systemic steroids; Z99.81 Dependence on supplemental oxygen; Z95.5 Presence of coronary angioplasty implant and graft; Z90.710 Acquired absence of both cervix and uterus
CPT/HCPCS: 71046; 71275; 80048; 83880; 84484; 85025; 85379; 93005; 96374; 96375; 96376; 99284; Q9967; A4216

== ENCOUNTER 2024-12-03 11:05 | Outpatient (CLI) | payer MEDICARE, BC, SELFPAY ==
[2019-03-13 13:12] VITALS: BMI 46.6
[2024-12-03 11:15] VITALS: PULSE 101; PULSE 91; O2SAT 3; O2SAT 97; O2SAT 98
--- NOTE | 2024-12-03 11:47 | CPS ---
Pt arrived at walk on room air in wheelchair. Room air rest saturation was 98%. Walk was started on room air. Pt walked down baig turned around to come back and stated she needed to sit. Pt rested from 1 minute 43 seconds to end of walk. Pt rated her S.O.B as 3 (severe). Pt also stated that she felt her heart was racing and coming out of her chest. Pt's saturation was always between 94% and 97% on room air at rest.Once pt stated she felt back to baseline for her breathing and S.O.B she left.
--- NOTE | 2024-12-05 10:11 | PCM.PSN.6M ---
PSN 6 Minute Walk Test 6 Minute Walk Test 6 Minute Walk Test: 6 Minute Walk Test PSN:6-Minute Walk Test Start: 12/03/24 11:43 Freq: Status: Active Protocol: [id number] Document 12/03/24 11:15 AEH (Rec: 12/03/24 11:56 AEH [id number]) 6 Minute Walk Test Date Performed 12/03/24 Time Performed 11:15 Height 5 ft 2 in Weight: 320 lb Weight in Pounds 320.[address]: Roland Assistive device Walker used: Pre-test Oxygen Delivery Room Air Method Pulse Ox (%) 98 Pulse Rate (60-100 91 beats/min) Dyspnea Arielle Scale ( 0.5 0-10) Exertion Arielle Scale 6 (6-20) 1st minute Oxygen Delivery Room Air Method Pulse Ox (%) 97 Pulse Rate (60-100 101 H beats/min) 2nd minute Oxygen Delivery Room Air Method Dyspnea Arielle Scale ( 3 0-10) Number of Rests 1 Taken Reported Symptoms Increased Work of Breathing 3rd minute Oxygen Delivery Room Air Method Dyspnea Arielle Scale ( 3 0-10) Number of Rests 1 Taken Reported Symptoms Increased Work of Breathing 4th minute Oxygen Delivery Room Air Method Pulse Ox (%) 3 Number of Rests 1 Taken Reported Symptoms Increased Work of Breathing 5th minute Oxygen Delivery Room Air Method Dyspnea Arielle Scale ( 3 0-10) Number of Rests 1 Taken Reported Symptoms Increased Work of Breathing 6th minute Oxygen Delivery Room Air Method Dyspnea Arielle Scale ( 3 0-10) Number of Rests 1 Taken Reported Symptoms Increased Work of Breathing Post-test Oxygen Delivery Room Air Method Pulse Ox (%) 98 Pulse Rate (60-100 91 beats/min) Full Laps Walked 1 Partial Lap, Number 0 of Tiles Walked Total Distance 59 Walked (ft) 12/03/24 11:47 Cardiopulmonary Services by Christin Nicholas Pt arrived at walk on room air in wheelchair. Room air rest saturation was 98%. Walk was started on room air. Pt walked down baig turned around to come back and stated she needed to sit. Pt rested from 1 minute 43 seconds to end of walk. Pt rated her S.O.B as 3 (severe). Pt also stated that she felt her heart was racing and coming out of her chest. Pt's saturation was always between 94% and 97% on room air at rest.Once pt stated she felt back to baseline for her breathing and S.O.B she left. Initialized on 12/03/24 11:47 - END OF NOTE Interpretation Interpretation: The patient ambulated only 59 feet over the course of 1 minute and 43 seconds. Pretesting oxygen saturation was noted to be 98% on room air. With limited ambulation, the patient's kenna oxygen saturation was 97%. Although there was evidence of severely impaired walk distance, there was no significant exertional oxygen desaturation. Recommendations Recommendations: Nondiagnostic study due to limited ambulatory distance. There is no significant exertional oxygen desaturation.
== END 2024-12-03 23:59 | disposition home or self-care (01) ==
PROVIDERS: PCP Family Medicine; Referring Provider Nurse Practitioner Acute Care; Visit Provider Nurse Practitioner Acute Care
DX: R06.09 Other forms of dyspnea (principal); R09.02 Hypoxemia
CPT/HCPCS: 94618; 94762; 95806

== ENCOUNTER → 2024-12-12 | Outpatient (CLI) | payer MEDICARE, BC, SELFPAY ==
[2019-03-13 13:12] VITALS: BMI 46.6
[2024-12-12 16:04] LABS: Erythrocyte Sedimentation Rate 2 mm/hr (0-30)
[2024-12-12 16:18] LABS: CRP < 3.00 mg/L (0.0-3.0)
== END | disposition home or self-care (01) ==
LOC: MTLAB 12:32
PROVIDERS: PCP Family Medicine; Referring Provider Internal Medicine Rheumatology; Visit Provider Internal Medicine Rheumatology
DX: M31.6 Other giant cell arteritis (principal); L40.8 Other psoriasis; Z79.52 Long term (current) use of systemic steroids
CPT/HCPCS: 36415; 85652; 86140

== ENCOUNTER 2024-12-17 18:33 | Emergency (ER) | payer MEDICARE, BC, SELFPAY ==
[2019-03-13 13:12] VITALS: BMI 46.6
[2024-12-17 18:33] VITALS: BP 134/65; PULSE 104; RESP 18; TEMP 37.1; O2SAT 99
--- NOTE | 2024-12-17 18:36 | RAD_ITS ---
PROCEDURE: CHEST 1 VIEW (PORTABLE) 12/17/2024 REASON FOR EXAM: CHEST PAIN TECHNIQUE: Frontal view of the chest. COMPARISON: 11/29/2024 FINDINGS: Hardware: None Heart: Cardiac and mediastinal contours are stable. Lungs: The lungs are clear. Bones: The bones are unremarkable. Other: RAD/Chest 1 View (Portable) IMPRESSION: No Acute Findings. Reading Location: [id number]
--- NOTE | 2024-12-17 18:36 | EKG12_ITS ---
Test Reason : PALPS Blood Pressure : */* mmHG Vent. Rate : 100 BPM Atrial Rate : 100 BPM P-R Int : 128 ms QRS Dur : 80 ms QT Int : 364 ms P-R-T Axes : 40 -5 24 degrees QTcB Int : 469 ms Sinus rhythm with Premature atrial complexes with Aberrant conduction Low voltage QRS Nonspecific ST abnormality Abnormal ECG Confirmed by Ambrose Cervantes ([id number]), art editor MAGDALENE ARRIETA ([id number]) on 12/20/2024 6:51:26 AM Referred By: Confirmed By: Ambrose Cervantes
[2024-12-17 18:52] VITALS: BMI 56.7
--- NOTE | 2024-12-17 19:12 | EX.ED.DYSGE1 ---
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 She also states that she was recently diagnosed a few weeks ago with bilateral pulmonary emboli. She was started on Eliquis and has not missed a dose. She states that even before her diagnosis and over the last few days she has had chest discomfort and shortness of breath with dyspnea on exertion. She denies any fevers or chills but no productive cough. She states she coughs when she exerts herself. She is also on a diuretic and takes potassium. She states that she has not felt well all day, and has generalized weakness and malaise. She and her are here mainly because on their home cardiac applications, their workers concern because notes stated that she could have possible atrial fibrillation. [facility] Medical History DVT (deep venous thrombosis) Giant cell arteritis Wears glasses Post-menopausal Psoriasis Walker as ambulation aid Fatty liver History of migraine Seasonal allergies PONV (postoperative nausea and vomiting) Back pain Dietary restriction History of diverticulitis History of GI bleed Gastric reflux Non-smoker BiPAP (biphasic positive airway pressure) dependence Shortness of breath on exertion History of edema History of CHF (congestive heart failure) History of atrial fibrillation History of echocardiogram History of stress test Cardiology follow-up encounter Edema Chest pain, unspecified Diabetes Vitamin D deficiency Osteoporosis Acute on chronic diastolic (congestive) heart failure History of left heart catheterization (LHC) (~03/03/20) Hypothyroidism (acquired) Mixed hyperlipidemia Benign essential hypertension Cataract associated with type 2 diabetes mellitus 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 2 diabetes mellitus NATALIE (obstructive sleep apnea) Abnormal stress test Chest pain Chapman's palsy Thyroid disease Heart murmur Hives Recurrent UTI Bone fracture Back problem Arthritis Kidney stones HTN (hypertension) Anemia Asthma Obesity Home Medications ?Medication ?Instructions ?Recorded ?Last Taken ?Type epinephrine 0.3 mg/0.3 mL 0.3 mg IM ONCE 10/30/17 Unknown History injection, auto-injector (EpiPen) rosuvastatin 20 mg tablet 20 mg PO QDAY Cholesterol 11/22/17 02/11/24 History gabapentin 100 mg capsule 100 - 300 mg PO TID 05/27/20 02/12/24 History pen needle, diabetic 32 gauge x #100 ea 10/01/20 Unknown Rx (BD Ultra-Fine Eva Pen Needle) cholecalciferol (vitamin D3) 125 125 mcg PO DAILY 12/02/20 02/11/24 History mcg (5,000 unit) tablet hydrocortisone 2.5 % topical cream 1 applic topical BID PRN Itching 10/15/21 Unknown History spironolactone 25 mg tablet 25 mg PO BID water pill 04/26/22 02/11/24 History metoprolol tartrate 25 mg tablet 25 mg PO DAILY 05/23/22 02/12/24 History clobetasol 0.05 % topical cream 1 applic topical DAILY PRN psorasis 04/06/23 02/11/24 History montelukast 10 mg tablet 10 mg PO QHS 04/06/23 02/11/24 History (Singulair) nitroglycerin 0.4 mg sublingual 0.4 mg sublingual Q5M PRN .CHEST 04/26/23 Unknown Rx tablet PAIN #25 tabs blood-glucose sensor (Dexcom G7 #3 ea 06/08/23 Unknown Rx Sensor device) blood-glucose sensor (Dexcom G7 #3 ea 06/08/23 Unknown Rx Sensor device) blood-glucose meter,continuous #1 ea 06/19/23 Unknown Rx (Dexcom G7 Video Production Specialist) denosumab 60 mg/mL subcutaneous 60 mg subcut [id number] #1 mL 07/12/23 Unknown Rx syringe (Prolia) clopidogrel 75 mg tablet 75 mg PO DAILY #90 tabs 01/22/24 02/07/24 Rx furosemide 20 mg tablet 20 mg PO .COMPLEX #180 tabs 01/22/24 02/11/24 Rx furosemide 40 mg tablet 40 mg PO .COMPLEX #180 tabs 01/22/24 02/11/24 Rx isosorbide mononitrate 60 mg 60 mg PO DAILY #90 tabs 01/22/24 02/12/24 Rx tablet,extended release 24 hr omeprazole 20 mg capsule,delayed 20 mg PO QDAY 02/26/24 Unknown History release potassium chloride 10 mEq 20 meq PO BID 03/25/24 Unknown History tablet,extended release levothyroxine 175 mcg tablet 175 mcg PO .6xw 07/08/24 Unknown History melatonin 10 mg capsule 10 mg PO HS PRN sleep 10/23/24 Unknown History tocilizumab 162 mg/0.9 mL mg subcut QWEEK 10/23/24 Unknown History subcutaneous pen injector (Actemra ACTPen) dapagliflozin propanediol 10 mg 10 mg PO DAILY #90 tabs 11/11/24 Unknown Rx tablet (Farxiga) dulaglutide 4.5 mg/0.5 mL 4.5 mg (0.5 mL) subcut QWEEK #6 mL 11/11/24 Unknown Rx subcutaneous pen injector (Trulicity) insulin regular hum U-500 conc 500 See Rx Instructions subcut ONCE 11/11/24 Unknown Rx unit/mL(3 mL) subcut pen (Humulin #45 mL R U-500 (Conc) Insulin Kwikpen) famotidine 20 mg tablet 20 mg PO BID 11/27/24 Unknown History prednisone 20 mg tablet 7.5 mg PO DAILY 11/27/24 Unknown History apixaban 5 mg (74 tabs) tablets in See Rx Instructions .Route 11/29/24 Unknown Rx a dose pack (Predikt DVT-PE Treat .COMPLEX #74 tabs 30D Start) nystatin 100,000 unit/gram topical 1 applic topical DAILY PRN yeast 11/29/24 Unknown History cream infection nystatin 100,000 unit/gram topical 1 applic topical TID PRN yeast 11/29/24 Unknown History powder dematitis cephalexin 500 mg capsule 500 mg PO Q12 #14 CAPSULES 12/17/24 Unknown Rx Allergy/AdvReac Type Severity Reaction Status Date / Time adhesive Allergy Other Verified 12/17/24 18:36 Fish Containing Products Allergy Hives Verified 12/17/24 18:36 fluconazole (From Diflucan) Allergy Hives Verified 12/17/24 18:36 iodine Allergy Unknown Verified 12/17/24 18:36 orange Allergy Hives Verified 12/17/24 18:36 Penicillins Allergy Unknown Verified 12/17/24 18:36 pioglitazone (From Actos) Allergy Hives Verified 12/17/24 18:36 povidone-iodine (From Allergy Unknown Verified 12/17/24 18:36 Betadine) soap (From Betadine) Allergy Unknown Verified 12/17/24 18:36 Sulfa (Sulfonamide Allergy Unknown Verified 12/17/24 18:36 Antibiotics) sulfamethoxazole (From Allergy Unknown Verified 12/17/24 18:36 Bactrim) tetanus and diphtheria Allergy Hives Verified 12/17/24 18:36 toxoids trimethoprim (From Bactrim) Allergy Unknown Verified 12/17/24 18:36 amlodipine AdvReac Severe Swelling Verified 12/17/24 18:36 Family History Mother Diabetes Heart disease Hypertension High cholesterol Kidney disease Cancer Father Diabetes Hypertension High cholesterol Cancer Sister Cancer Surgical History Presence of stent in coronary artery (~03/13/19) History of surgery History of back surgery Presence of coronary angioplasty implant and graft (~03/13/19) Cataract extraction status, left eye Cataract extraction status, right eye History of left heart catheterization (LHC) H/O colonoscopy H/O right heart catheterization H/O thyroidectomy H/O sinus surgery History of tonsillectomy History of total abdominal hysterectomy H/O arthroscopic knee surgery Hx of cholecystectomy Social History Smoking Status: Never smoker second hand exposure: No alcohol intake: never substance use type: does not use caffeine: Yes Type: carbonated beverages Number of servings: 1 and tea Number of servings: 1 ROS ROS ED ROS Narrative Review of systems positive for shortness of breath with dyspnea on exertion, generalized weakness and malaise. No fevers or chills. Positive nonproductive cough especially with dyspnea on exertion. Positive steroid weight gain. No dysuria or hematuria. No exacerbating or alleviating factors. EXAM Physical Exam Narrative Exam Narrative: Afebrile. Vital signs noted. Nontoxic-appearing. Cardiovascular examination reveals mild tachycardia with occasional extra beats. Lungs are clear to auscultation bilaterally. No tachypnea. No wheezing. Abdomen is soft and nontender. Neurological examination is nonfocal and nonlateralizing. Const Vital Signs: 12/17/24 18:33 12/17/24 18:47 12/17/24 18:52 Temperature 98.7 F Temperature Source Oral Pulse Rate 104 H Respiratory Rate 18 Respiratory Effort Labored Accessory Muscle Use Blood Pressure 134/65 H Blood Pressure Mean 88 Pulse Ox 99 Oxygen Delivery Method Room Air Room Air 12/17/24 19:41 12/17/24 20:00 Temperature Temperature Source Pulse Rate 90 88 Respiratory Rate 14 21 H Respiratory Effort Blood Pressure 141/40 H Blood Pressure Mean 73 Pulse Ox 97 Oxygen Delivery Method Room Air MDM MDM MDM Narrative Medical decision making narrative: Differential diagnosis includes but not limited to pneumonia versus pneumothorax. She already has a diagnosis of bilateral pulmonary emboli which could be causing her pain and shortness of breath. Also the differential would be atrial fibrillation as well. She has not missed a dose of her Eliquis. Hence, I already feel that she is anticoagulated and I do not feel CTA is indicated. I did review her prior records/ED visit. She was discharged to follow-up with her carton stamper Dr. Florez as well as her primary care provider. An EKG was obtained and interpreted by myself independently as normal sinus rhythm with PACs at 100 bpm. I do not feel that this is atrial fibrillation. Labs were started per protocol. I did add a magnesium as well given that she states she has been hypokalemic in the past. Chest x-ray obtained and interpreted by myself independently shows no evidence of pneumothorax or pneumonia. I reviewed her laboratory work and she has normal white count of 7.6 with hemoglobin stable at 11.3, hematocrit 36.8, platelet count normal at 214. BMP significant for an anion gap of 17 which I think is nonspecific, glucose 133 with CO2 of 24, normal sodium of 138. Potassium is low at 2.9. She was given 40 mill equivalents here in the emergency department will continue home supplementation. Her magnesium is normal at 1.7. High-sensitivity troponin is 24 and when compared to prior labs it was 23 in the past. This has been an ongoing thing for greater than 6 hours so I doubt that she requires any repeat troponin. Urinalysis shows 10-25 WBCs but negative ketones. I will treat her for a urinary tract infection. I reviewed her prior medications and she had been prescribed cephalexin in the past although she has an allergy to penicillins that is unknown. She was given her first dose here and a prescription written for the next week. At this point in time, I feel she can be discharged to follow-up. She has already followed up with her carton stamper and wears oxygen at night. She has a home compressor. Hence, she has oxygen at home, I do not feel that she requires observation or admission for any oxygen requirement. Return instructions to the emergency department were reviewed. Disposition is discharged home in stable condition. History & Record Review Discussion w/independent historian: Patient and Family () Lab Data Attestation: I reviewed the patient's lab results. Labs: Laboratory Results - last 24 hr 12/17/24 12/17/24 18:55 20:09 WBC 7.6 RBC 4.34 Hgb 11.3 L Hct 36.8 L MCV 84.8 MCH 26.0 L MCHC 30.7 L RDW Std Deviation 51.3 H RDW Coeff of Barrie 16.5 H Plt Count 214 MPV 9.2 Immature Gran % (Auto) 0.700 Neut % (Auto) 73.1 H Lymph % (Auto) 18.1 L Hickman % (Auto) 6.3 Eos % (Auto) 1.3 Baso % (Auto) 0.5 Absolute Neuts (auto) 5.6 Absolute Lymphs (auto) 1.38 Nucleated RBC % 0 PT 16.8 H INR 1.3 Sodium 138 Potassium 2.9 L Chloride 97 L Carbon Dioxide 24.2 Anion Gap 17 H BUN 8 Creatinine 1.13 Estim Creat Clear Calc 63.11 Est GFR (MDRD) Non-Af 52 L BUN/Creatinine Ratio 6.7 L Glucose 133 H Calcium 9.7 Magnesium 1.7 Troponin T High Sens 24 H Urine Color Yellow Urine Clarity Clear Urine pH 6.0 Ur Specific [place] 1.010 Urine Protein 15 H Urine Glucose (UA) 1000 H Urine Ketones Negative Urine Occult Blood Negative Urine Nitrite Negative Urine Bilirubin Negative Urine Urobilinogen Normal Ur Leukocyte Esterase 25 H Urine RBC 0 SEEN Urine WBC 10-25 SEEN Ur Squamous Epith Cells 0-5 SEEN Urine Bacteria 1+ Urine Mucus 0 SEEN Urine Yeast 1+ Radiography Chest X-Ray - ED: 1 View, Read by ED Physician and Read by Radiologist Diagnostic Testing: Clinical Impression(s) from Imaging Studies Chest X-Ray 12/17/24 18:36 IMPRESSION: No Acute Findings. Reading Location: [id number] Discharge Plan Triage Chief Complaint: Palpitations ED Provider: Son Craft Dx/Rx/DC Orders Clinical Impression: Chest pain, SOB (shortness of breath), History of pulmonary embolism, Hypokalemia, UTI (urinary tract infection) Instructions: ED Chest Pain, Uncertain Cause, ED Dyspnea, ED Hypokalemia, ED Cystitis Female Adult Prescriptions: New cephalexin 500 mg capsule 500 mg PO Q12 Qty: 14 0RF No Action rosuvastatin 20 mg tablet 20 mg PO QDAY epinephrine [EpiPen] 0.3 mg/0.3 mL auto-injector 0.3 mg IM ONCE spironolactone 25 mg tablet 25 mg PO BID gabapentin 100 mg capsule 100 - 300 mg PO TID cholecalciferol (vitamin D3) 125 mcg (5,000 unit) tablet 125 mcg PO DAILY (DME) pen needle, diabetic [BD Ultra-Fine Eva Pen Needle] 32 gauge x 5/32 needle See Rx Instructions .ROUTE .MEDSUPPLY Qty: 100 6RF Rx Instructions: tid hydrocortisone 2.5 % cream 1 applic topical BID PRN (Reason: Itching) clobetasol 0.05 % cream 1 applic topical DAILY PRN (Reason: psorasis) montelukast [Singulair] 10 mg tablet 10 mg PO QHS nitroglycerin 0.4 mg tablet, sublingual 0.4 mg SL Q5M PRN (Reason: .CHEST PAIN) Qty: 25 3RF (DME) Dexcom G7 Sensor Device See Rx Instructions .Route Qty: 3 6RF Rx Instructions: As directed (DME) Dexcom G7 Sensor Device See Rx Instructions .Route Qty: 3 0RF Rx Instructions: As directed potassium chloride 10 mEq tablet extended release 20 meq PO BID omeprazole 20 mg capsule,delayed release(DR/EC) 20 mg PO QDAY famotidine 20 mg tablet 20 mg PO BID dapagliflozin propanediol [Farxiga] 10 mg tablet 10 mg PO DAILY Qty: 90 1RF Trulicity 4.5 mg/0.5 mL pen injector 4.5 mg subcut QWEEK Qty: 6 1RF Patient Comments: takes it on Mondays Humulin R U-500 (Conc) Kwikpen 500 unit/mL (3 mL) insulin pen See Rx Instructions subcut ONCE Qty: 45 3RF Patient Comments: PT STATES SHE TAKES 300 TID WHILE ON STEROIDS, PT TAKES INSULIN WITH SNACKS. CHECKS BLOOD SUGAR AND TAKES ACCORDINGLY. Rx Instructions: 200 units tid with meals 80 units bid with snacks subcutaneously once; melatonin 10 mg capsule 10 mg PO HS PRN (Reason: sleep) Actemra ACTPen 162 mg/0.9 mL pen injector subcut QWEEK Patient Comments: [NO ORIGINAL SIG] levothyroxine 175 mcg tablet 175 mcg PO .6xw Patient Comments: does not take it on Sundays. metoprolol tartrate 25 mg tablet 25 mg PO DAILY prednisone 20 mg tablet 7.5 mg PO DAILY nystatin 100,000 unit/gram cream 1 applic TOPICAL DAILY PRN (Reason: yeast infection) nystatin 100,000 unit/gram powder 1 applic topical TID PRN (Reason: yeast dematitis) Rx Instructions: must be powder formulation Eliquis DVT-PE Treat 30D Start 5 mg (74 tabs) tablets,dose pack See Rx Instructions .Route .COMPLEX Qty: 74 0RF Rx Instructions: orally per package directions (DME) Dexcom G7 Video Production Specialist Misc See Rx Instructions .Route Qty: 1 0RF Rx Instructions: As directed Prolia 60 mg/mL syringe 60 mg subcut [id number] Qty: 1 1RF isosorbide mononitrate 60 mg tablet extended release 24 hr 60 mg PO DAILY Qty: 90 3RF clopidogrel 75 mg tablet 75 mg PO DAILY Qty: 90 3RF furosemide 40 mg tablet 40 mg PO .COMPLEX Qty: 180 3RF Rx Instructions: 40 mg orally twice a day; takes with a 20 mg tablet to = 60 mg twice a day; furosemide 20 mg tablet 20 mg PO .COMPLEX Qty: 180 3RF Rx Instructions: 20 mg orally twice a day; take with a 40 mg tablet to = 60 mg twice a day; Primary Care Provider: Willard Friedman Referrals: Willard Friedman MD [Primary Care Provider] - 3-5 Days if not improving Activity Restrictions/Additional Instructions: Continue your potassium supplementation. Antibiotics as directed. Follow-up with your primary care provider in the next 3 to 5 days if not improving. Continue your Eliquis for your pulmonary emboli. Return with increased chest pain, increased shortness of breath, new or worsening symptoms. Print Language: Norwegian Disposition Disposition: Home, Self Care
[2024-12-17 19:15] LABS: Absolute Lymphocyte Count 1.38 X10^3/uL (0.83-4.51); Absolute Neutrophil Count 5.6 X10^3/uL (2.0-7.7); Basophil# 0.04 X10^3/uL; Basophil% 0.5 % (0-1); Eosinophils% 1.3 % (0-5); Hematocrit 36.8 % (37-47); Hemoglobin 11.3 g/dL (12.0-15.0); Lymphocyte # 1.38 X10^3/ul (0.83-4.51); Lymphocyte % 18.1 % (19-41); Mean Corp Hgb Conc 30.7 g/dL (32-36); Mean Corpuscular Volume 84.8 fL (81-99); Mean Platelet Vol. 9.2 fl (6.2-12.0); Monocyte# 0.48 X10^3/uL; Monocyte% 6.3 % (0-10); NRBC Flagged by Analyzer 0 % (0-5); Neutrophil # 5.56 X10^3/uL (2.7-7.7); Neutrophil % 73.1 % (47-70); Platelet Count 214 K/mm3 (150-450); RBC Distribution Width CV 16.5 % (11.6-14.6); RBC Distribution Width SD 51.3 fl (35.1-43.9); Red Blood Count 4.34 M/mm3 (4.2-5.4); White Blood Count 7.6 K/mm3 (4.4-11.0)
[2024-12-17 19:39] LABS: Anion Gap 17 (5-15); BUN 8 mg/dL (4-19); BUN/Creat Ratio 6.7 RATIO (10-20); Calcium,Total 9.7 mg/dL (7.6-11.0); Carbon Dioxide 24.2 mmol/L (21.0-32.0); Chloride 97 mmol/L (98-108); Creatinine, Serum 1.13 mg/dL (0.70-1.20); EST Glomerular Filtration Rate 52 (>60); Estimated Creatinine Clearance 63.11 ml/min (50-250); Glucose 133 mg/dL (70-99); Potassium 2.9 mmol/L (3.3-5.1); Sodium Level 138 mmol/L (133-145); Troponin T High Sensitivity 24 ng/L (<=14)
[2024-12-17 19:41] VITALS: BP 141/40; PULSE 90; RESP 14; O2SAT 97
[2024-12-17 19:43] LABS: International Normalized Ratio 1.3; Prothrombin Time (Protime)PT. 16.8 SECONDS (11.7-14.9)
[2024-12-17 19:52] LABS: Magnesium 1.7 mg/dL (1.5-2.2)
[2024-12-17] MEDS: Potassium Chloride Oral Tablet 20 MEQ 40 MEQ PO (19:52)
[2024-12-17 20:00] VITALS: PULSE 88; RESP 21
[2024-12-17 20:23] LABS: Mucous, Urine 0 SEEN /hpf (<or=2+); Red Blood Cells-Urine 0 SEEN /hpf (0-5)
[2024-12-17 20:26] LABS: Color, Urine Yellow (Yellow); Glucose, Dipstick 1000 mg/dl (Normal); Ketone-Dipstick Negative (Negative); Leukocyte Esterase-Dipstick 25 /ul (Negative); Nitrite-Dipstick Negative (Negative); Occult Blood-Urine Negative /ul (Negative); Protein-Dipstick 15 mg/dl (Negative); Urine Bilirubin Dipstick Negative (Negative); Urine Clarity Clear (Clear); Urine Urobilinogen Normal (Normal)
[2024-12-17 20:47] LABS: Squamous Epithelial Cells - UA 0-5 SEEN /hpf (5-10)
[2024-12-17 20:48] LABS: Bacteria 1+ /hpf (None Seen); White Blood Cells 10-25 SEEN /hpf (0-5); Yeast-Urine 1+ /hpf (None Seen)
[2024-12-17 21:11] VITALS: PULSE 88; RESP 20; O2SAT 98
[2024-12-17] MEDS: Cephalexin 250 MG Capsule 500 MG PO (21:19)
== END 2024-12-17 21:33 | disposition home or self-care (01) ==
PROVIDERS: Emergency Provider Emergency Medicine; PCP Family Medicine; Visit Provider Emergency Medicine
DX: R07.9 Chest pain, unspecified (principal); I50.32 Chronic diastolic (congestive) heart failure; I13.0 Hypertensive heart and chronic kidney disease with heart failure and stage 1 through stage 4 chronic kidney disease, or unspecified chronic kidney disease; E11.22 Type 2 diabetes mellitus with diabetic chronic kidney disease; N18.30 Chronic kidney disease, stage 3 unspecified; N39.0 Urinary tract infection, site not specified; E87.6 Hypokalemia; E78.2 Mixed hyperlipidemia; E03.9 Hypothyroidism, unspecified; R00.2 Palpitations; J45.909 Unspecified asthma, uncomplicated; G47.33 Obstructive sleep apnea (adult) (pediatric); E66.9 Obesity, unspecified; Z88.0 Allergy status to penicillin; Z79.01 Long term (current) use of anticoagulants; Z79.02 Long term (current) use of antithrombotics/antiplatelets; Z79.85 Long-term (current) use of injectable non-insulin antidiabetic drugs; Z79.890 Hormone replacement therapy; Z79.899 Other long term (current) drug therapy; Z86.711 Personal history of pulmonary embolism
CPT/HCPCS: 71045; 80048; 81001; 83735; 84484; 85025; 85610; 87086; 87088; 93005; 99284; A4216

== ENCOUNTER → 2025-01-01 | Outpatient (CLI) | payer MEDICARE, BC, SELFPAY ==
[2019-03-13 13:12] VITALS: BMI 46.6
[2025-01-01 13:45] LABS: Absolute Lymphocyte Count 0.92 X10^3/uL (0.83-4.51); Absolute Neutrophil Count 7.5 X10^3/uL (2.0-7.7); Basophil# 0.06 X10^3/uL; Basophil% 0.6 % (0-1); Eosinophil# 0.08 X10^3/uL; Eosinophils% 0.9 % (0-5); Hemoglobin 10.3 g/dL (12.0-15.0); Lymphocyte # 0.92 X10^3/ul (0.83-4.51); Lymphocyte % 9.9 % (19-41); Mean Corp Hgb Conc 29.4 g/dL (32-36); Mean Corpuscular Hgb 25.6 pg (27.0-32.0); Mean Corpuscular Volume 86.8 fL (81-99); Mean Platelet Vol. 9.7 fl (6.2-12.0); Monocyte# 0.57 X10^3/uL; Monocyte% 6.2 % (0-10); NRBC Flagged by Analyzer 0 % (0-5); Neutrophil # 7.51 X10^3/uL (2.7-7.7); Neutrophil % 81.2 % (47-70); Platelet Count 222 K/mm3 (150-450); RBC Distribution Width CV 16.2 % (11.6-14.6); RBC Distribution Width SD 51.6 fl (35.1-43.9); Red Blood Count 4.03 M/mm3 (4.2-5.4); White Blood Count 9.3 K/mm3 (4.4-11.0)
[2025-01-01 16:41] LABS: Anion Gap 17 (5-15); BUN 7 mg/dL (4-19); BUN/Creat Ratio 6.5 RATIO (10-20); Calcium,Total 9.5 mg/dL (7.6-11.0); Carbon Dioxide 25.2 mmol/L (21.0-32.0); Chloride 99 mmol/L (98-108); Creatinine, Serum 1.13 mg/dL (0.70-1.20); EST Glomerular Filtration Rate 52 (>60); Glucose 202 mg/dL (70-99); Potassium 3.1 mmol/L (3.3-5.1); Pro- Brain NATRIURETIC PEPTIDE 233 pg/mL (<=900); Sodium Level 141 mmol/L (133-145)
== END | disposition home or self-care (01) ==
LOC: LAB 12:34
PROVIDERS: PCP Family Medicine; Referring Provider Nurse Practitioner Family; Visit Provider Nurse Practitioner Family
DX: I10 Essential (primary) hypertension (principal); E66.01 Morbid (severe) obesity due to excess calories; Z68.42 Body mass index [BMI] 45.0-49.9, adult; E78.2 Mixed hyperlipidemia; R06.09 Other forms of dyspnea; Z95.5 Presence of coronary angioplasty implant and graft
CPT/HCPCS: 36415; 80048; 83880; 85025

== ENCOUNTER → 2025-01-16 | Outpatient (CLI) | payer MEDICARE, BC, SELFPAY ==
[2019-03-13 13:12] VITALS: BMI 46.6
[2025-01-16 15:31] LABS: AST(SGOT) 39 U/L (<=31); Alanine Aminotransfer ALT/SGPT 21 U/L (<=34); Albumin, Serum 3.9 g/dL (3.4-4.8); Alkaline Phosphatase 66 U/L (35-104); Bilirubin, Direct 0.36 mg/dL (0.00-0.30); Globulin 2.1 g/dL (2.2-4.2); Total Bilirubin 0.67 mg/dL (0.00-1.30)
[2025-01-20 13:08] LABS: Anti-Centromere B Ab <0.2 AI (0.0-0.9); Anti-Chromatin <0.2 AI (0.0-0.9); Anti-Jo <0.2 AI (0.0-0.9); Anti-Scleroderma-70 AB <0.2 AI (0.0-0.9); Anti-dsDNA Ab <1 IU/mL (0-9); RNP Ab <0.2 AI (0.0-0.9); SJOGREN'S Anti-SS-A test < 0.2 AI (0.0-0.9); SJOGREN'S Anti-SS-B test < 0.2 AI (0.0-0.9); Smith Ab <0.2 AI (0.0-0.9)
[2025-01-21 09:08] LABS: Cytoplasmic Ab (C-ANCA) <1:20 titer (Neg:<1:20); Endomysial Antibody IgA Negative (Negative); Immunoglobulin A 134 mg/dL (87-352); Immunoglobulin E 107 IU/mL (6-495); Immunoglobulin G 452 mg/dL (586-1602); Immunoglobulin M 68 mg/dL (26-217); Perinuclear Ab (P-ANCA) <1:20 titer (Neg:<1:20); t-Transglutaminase IgA <2 U/mL (0-3)
== END | disposition home or self-care (01) ==
LOC: LAB 14:16
PROVIDERS: PCP Family Medicine
DX: D50.9 Iron deficiency anemia, unspecified (principal); R19.7 Diarrhea, unspecified; R10.9 Unspecified abdominal pain; R15.9 Full incontinence of feces
CPT/HCPCS: 36415; 80076; 82784; 82785; 83516; 86037; 86225; 86235; 86255

== ENCOUNTER → 2025-01-17 | Outpatient (CLI) | payer MEDICARE, BC, SELFPAY ==
[2019-03-13 13:12] VITALS: BMI 46.6
[2025-01-21 14:08] LABS: Pancreatic Elastase, Fecal 459 (>200)
[2025-01-21 16:08] LABS: Calprotectin, Stool 130 ug/g (0-120)
== END | disposition home or self-care (01) ==
LOC: LABSPEC 13:29
PROVIDERS: PCP Family Medicine
DX: D50.9 Iron deficiency anemia, unspecified (principal); R19.7 Diarrhea, unspecified; R10.9 Unspecified abdominal pain; R15.9 Full incontinence of feces
CPT/HCPCS: 82274; 82653; 83993

== ENCOUNTER → 2025-01-28 | Outpatient (CLI) | payer MEDICARE, BC, SELFPAY ==
[2019-03-13 13:12] VITALS: BMI 46.6
--- NOTE | 2025-01-28 09:59 | ECHOCS_ITS ---
Reason For Study Reason For Study: Dyspnea/SOB Procedure This was a 2D Doppler, Color Flow transthoracic echocardiogram. Contrast injection was performed. The study was technically difficult. Exam performed in department. Left Ventricle Normal size and thickness. The LV systolic function is normal. EF is 65 %. Diastolic function is indeterminate. Right Ventricle Moderately dilated RV. Moderate to severe RV systolic dysfunction. Atria There is mild biatrial dilatation. Mitral Valve Moderate (2+) posteriorly directed mitral valve insufficiency. Tricuspid Valve Mild tricuspid valve insufficiency. Right ventricular systolic pressure estimated to be 56-66 mmHg. Aortic Valve The aortic valve is not well visualized in the short axis view. There is no aortic stenosis. Trivial aortic valve insufficiency. Pulmonic Valve The pulmonic valve is not well visualized. Great Vessels Normal sized aortic root. Pericardium/Pleural No pericardial effusion. Medication Diluted definity 1ml given slow IV push to enhance endocardial definition. MMode/2D Measurements & Calculations LVIDd: 5.3 cm IVSd: 0.96 cm Ao root diam: 2.8 cm LVIDs: 3.2 cm LVPWd: 0.89 cm LA dimension: 4.3 cm RVDd: 3.9 cm FS: 40.5 % LAV(MOD-bp): 54.9 ml LVAd ap4: 30.9 cm2 SV(MOD-sp4): 74.5 ml LAV(MOD-bp) Indexed: 23.9 ml/m2 LVLd ap4: 7.2 cm SI(MOD-sp4): 32.5 ml/m2 LAV(MOD-sp2): 58.6 ml EDV(MOD-sp4): 108.8 ml LAV(MOD-sp4): 47.7 ml EDV(sp4-el): 112.8 ml LVAs ap4: 15.8 cm2 LVLs ap4: 6.0 cm ESV(MOD-sp4): 34.4 ml ESV(sp4-el): 35.1 ml EF(MOD-sp4): 68.4 % EF(sp4-el): 68.9 % SV(sp4-el): 77.7 ml LA A4 area: 17.8 cm2 LA dimension(2D): 4.1 cm RA A4 area: 13.6 cm2 TAPSE: 2.4 cm Time Measurements MV dec time: 0.23 sec Doppler Measurements & Calculations MV E max jonathan: 142.2 cm/sec Lat Peak E' Jonathan: 8.0 cm/sec Med Peak E' Jonathan: 5.6 cm/sec MV A max jonathan: 131.4 cm/sec E/E' lat: 17.7 E/E' med: 25.2 MV E/A: 1.1 MV V2 max: 173.0 cm/sec MV dec slope: 605.4 cm/sec2 Ao V2 max: 140.4 cm/sec MV max P.0 mmHg Ao max P.9 mmHg MV V2 mean: 98.6 cm/sec Ao V2 mean: 95.6 cm/sec MV mean P.6 mmHg Ao mean P.2 mmHg MV V2 VTI: 43.9 cm Ao V2 VTI: 34.6 cm AV (velocity ratio): 0.88 LV V1 max: 124.4 cm/sec PA V2 max: 79.1 cm/sec TR max jonathan: 358.4 cm/sec LV V1 max P.2 mmHg TR max P.4 mmHg LV V1 mean P.5 mmHg LV V1 mean: 88.2 cm/sec LV V1 VTI: 30.5 cm ECHO/Echo Complete W/ Contrast Interpretation Summary The LV systolic function is normal. EF is 65 %. Diastolic function is indeterminate. Moderately dilated RV. Moderate to severe RV systolic dysfunction. There is mild biatrial dilatation. Moderate (2+) posteriorly directed mitral valve insufficiency. Mild tricuspid valve insufficiency. Right ventricular systolic pressure estimated to be 56-66 mmHg. The study was technically difficult. Ordering Physician: Robert Cheng Referring Physician: Willard Friedman Performed By: Tayler Cheng, MIRACLE, RVT
== END | disposition home or self-care (01) ==
LOC: CVS 09:59
PROVIDERS: PCP Family Medicine; Referring Provider Nurse Practitioner Family; Visit Provider Nurse Practitioner Family
DX: I26.99 Other pulmonary embolism without acute cor pulmonale (principal); I10 Essential (primary) hypertension; R06.09 Other forms of dyspnea; Z95.5 Presence of coronary angioplasty implant and graft
CPT/HCPCS: 93225; 93226; 93306; Q9957; A4216; C8929

== ENCOUNTER 2025-02-18 05:23 | Day surgery (SDC) | payer MEDICARE, BC, SELFPAY ==
[2019-03-13 13:12] VITALS: BMI 46.6
--- NOTE | 2025-02-17 14:33 | PAT.ANE_ITS ---
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 When Was Last Pacemaker Check QUESTION #4 FULL TEXT: You/Your Family Experience fever (hyperthermia) with Anesthesia Last Oral Intake Last Oral intake: Last Oral Intake NPO since Meds taken in AM with sips of water? Meds patient instructed to take am of surgery PONV PONV - concrete float maker: PONV - concrete float maker Female Yes 02/17/25 09:37 HX of Motion Sickness No 02/17/25 09:37 HX of N/V After Surgery No 02/17/25 09:37 Non-Smoker Yes 02/17/25 09:37 Duration of Surgery greater No 02/17/25 09:37 than 60 minutes Number of Risk Factors 2 02/17/25 09:37 PONV Score Moderate Risk 02/17/25 09:37 Height & Weight Height & Weight: Anesthesia: Height & Weight Height 5 ft 2 in 01/20/25 13:52 Respiratory Assessment Respiratory Assessment - concrete float maker: Respiratory Tract Infection Hx - concrete float maker Hx Respiratory Tract Infection No 02/17/25 09:37 STOP Sleep Apnea STOP Sleep Apnea - concrete float maker: STOP Sleep Apnea - concrete float maker Hx Hypertension Yes: CONTROLLED WITH MEDS 02/17/25 09:37 Hx Sleep Apnea Yes 02/17/25 09:37 CPAP No 02/17/25 09:37 BIPAP Yes 02/17/25 09:37 Do you snore loudly (louder than talking or can be heard Do you often feel tired/ fatigued/ sleepy during daytime? Has anyone observed you stop breathing during sleep? STOP Results Positive 02/17/25 09:37 QUESTION #5 FULL TEXT : Do you snore loudly (louder than talking or can be heard through closed doors)? Tobacco Use History Tobacco Use History - concrete float maker: Tobacco Use History - concrete float maker Tobacco Use Smoking Status Never smoker 02/17/25 09:37 Hx Tobacco Use No 02/17/25 09:37 Years Smoking Packs Smoked per Day Smoking Cessation Date was within the last 15 years Hx Smoking Cessation Date Hx Smoking Cessation Counseling Hematologic Medial History Hematologic Hx - concrete float maker: Hematologic Medical Hx - spirits model Hx of Blood Transfusion No 02/17/25 09:37 Hx of Transfusion in last 3 No 02/17/25 09:37 Months Date of Last Transfusion (if within last 3 months) Ever experience any problems No 02/17/25 09:37 with transfusion(s)? Specify any problems Hx of Preganancy in last 3 No 02/17/25 09:37 Months Nurse Filling Out Transfusion VCHRISTIN 02/17/25 09:37 & Questions: Date: 02/17/25 02/17/25 09:37 Time: 09:41 02/17/25 09:37 Patient unable to answer at this time (ie. confused, unrespo /Reproduction History /Reproductive History - concrete float maker: /Reproductive Hx- concrete float maker Hx Now No 02/17/25 09:37 Gestational Age (in weeks): EDC: Hx Hx Para Hx Section SAB No 02/17/25 09:37 ON LICENSE OF [facility] Medical History (Updated 02/17/25 @ 09:37 by Felecia Rey) History of Holter monitoring Iron deficiency anemia Pulmonary embolism DVT (deep venous thrombosis) Giant cell arteritis Wears glasses Post-menopausal Psoriasis Walker as ambulation aid Fatty liver History of migraine Seasonal allergies PONV (postoperative nausea and vomiting) Back pain Dietary restriction History of diverticulitis History of GI bleed Gastric reflux Non-smoker BiPAP (biphasic positive airway pressure) dependence Shortness of breath on exertion History of edema History of CHF (congestive heart failure) History of atrial fibrillation History of echocardiogram History of stress test Cardiology follow-up encounter Edema Chest pain, unspecified Diabetes Vitamin D deficiency Osteoporosis Acute on chronic diastolic (congestive) heart failure History of left heart catheterization (LHC) (~03/03/20) Hypothyroidism (acquired) Mixed hyperlipidemia Benign essential hypertension Cataract associated with type 2 diabetes mellitus 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 2 diabetes mellitus NATALIE (obstructive sleep apnea) Abnormal stress test Chest pain Chapman's palsy Thyroid disease Heart murmur Hives Recurrent UTI Bone fracture Back problem Arthritis Kidney stones HTN (hypertension) Anemia Asthma Obesity Home Medications ?Medication ?Instructions ?Recorded ?Last Taken ?Type epinephrine 0.3 mg/0.3 mL 0.3 mg IM ONCE 10/30/17 Unkn own History injection, auto-injector (EpiPen) rosuvastatin 20 mg tablet 20 mg PO QDAY Cholesterol 02/11/24 History gabapentin 100 mg capsule 100 - 300 mg PO TID 05/27/20 02/12/24 History pen needle, diabetic 32 gauge x #100 ea 10/01/20 Unkno wn Rx (BD Ultra-Fine Eva Pen Needle) cholecalciferol (vitamin D3) 125 125 mcg PO DAILY 11/0402/11/24 History mcg (5,000 unit) tablet spironolactone 25 mg tablet 25 mg PO BID water pill 02/11/24 History metoprolol tartrate 25 mg tablet 25 mg PO DAILY 02/12/24 History clobetasol 0.05 % topical cream 1 applic topical DAILY PRN psorasis 04/06/23 02/11/24 History montelukast 10 mg tablet 10 mg PO QHS 04/06/23 History (Singulair) nitroglycerin 0.4 mg sublingual 0.4 mg sublingual Q5M PRN .CHEST 04/26/23 Unknown Rx tablet PAIN #25 tabs blood-glucose sensor (Dexcom G7 #3 ea 06/08/23 Unknown Rx Sensor device) blood-glucose sensor (Dexcom G7 #3 ea 06/08/23 Unknown Rx Sensor device) blood-glucose,stock receiver,cont #1 ea 06/19/23 Unknown Rx (Dexcom G7 Bookseamer Blindstitch) denosumab 60 mg/mL subcutaneous 60 mg subcut [id number] #1 mL 07/12/23 Unknown Rx syringe (Prolia) clopidogrel 75 mg tablet 75 mg PO DAILY #90 tabs 01/0302/13/25 Rx furosemide 20 mg tablet 20 mg PO .COMPLEX #180 tabs 01/22/24 02/11/24 Rx furosemide 40 mg tablet 40 mg PO .COMPLEX #180 tabs 01/22/24 02/11/24 Rx omeprazole 20 mg capsule,delayed 20 mg PO QDAY 4 Unknown History release melatonin 10 mg capsule 10 mg PO HS PRN sleep Unknown History tocilizumab 162 mg/0.9 mL 162 mg subcut QWEEK ARTHRITI S 10/23/24 01/27/25 History subcutaneous pen injector (Actemra ACTPen) dapagliflozin propanediol 10 mg 10 mg PO DAILY #90 tab s 11/11/24 02/15/25 Rx tablet (Farxiga) famotidine 20 mg tablet 20 mg PO BID 11/27/24 Unknow n History nystatin 100,000 unit/gram topical 1 applic topical TI D PRN yeast 11/29/24 Unknown History powder dematitis prednisone 5 mg tablet 5 mg PO QDAY 01/01/25 Unknow n History potassium chloride 10 mEq 30 meq PO BID 01/05/25 Unkno wn History tablet,extended release apixaban 5 mg (74 tabs) tablets in 5 mg PO BID 5 02/13/25 History a dose pack (Hookit DVT-PE Treat 30D Start) mecobalamin (vitamin B12) 500 mcg 500 mcg PO DAILY 04/28 Unknown History chewable tablet Mounjaro 10 mg/0.5 mL subcutaneous 10 mg (0.5 mL) subc ut QWEEK #2 mL 01/20/25 02/08/25 Rx pen injector (tirzepatide) insulin regular hum U-500 conc 500 300 unit (0.6 mL) s ubcut TID #54 mL 01/20/25 Unknown Rx unit/mL(3 mL) subcut pen (Humulin R U-500 (Conc) Insulin Kwikpen) isosorbide mononitrate 60 mg 60 mg PO DAILY #90 tabs 0 01/22/25 Unknown Rx tablet,extended release 24 hr levothyroxine 175 mcg tablet 175 mcg PO MOTUWETHFRSA 0 02/17/25 Unknown History Allergy/AdvReac Type Severity Reaction Status Date / Time adhesive Allergy Other Verified 02/17/25 09:19 Fish Containing Products Allergy Hives Verified 02/17/25 09:19 fluconazole (From Diflucan) Allergy Hives Verified 02/17/25 09:19 iodine Allergy Unknown Verified 02/17/25 09:19 orange Allergy Hives Verified 02/17/25 09:19 Penicillins Allergy Unknown Verified 02/17/25 09:19 pioglitazone (From Actos) Allergy Hives Verified 02/17/25 09:19 povidone-iodine (From Allergy Unknown Verified 02/17/25 09:19 Betadine) soap (From Betadine) Allergy Unknown Verified 02/17/25 09:19 Sulfa (Sulfonamide Allergy Unknown Verified 02/17/25 09:19 Antibiotics) sulfamethoxazole (From Allergy Unknown Verified 02/17/25 09:19 Bactrim) tetanus and diphtheria Allergy Hives Verified 02/17/25 09:19 toxoids trimethoprim (From Bactrim) Allergy Unknown Verified 02/17/25 09:19 amlodipine AdvReac Severe Swelling Verified 02/17/25 09:19
--- NOTE | 2025-02-17 14:33 | PAT.ANESEVAL ---
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 When Was Last Pacemaker Check QUESTION #4 FULL TEXT: You/Your Family Experience fever (hyperthermia) with Anesthesia Last Oral Intake Last Oral intake: Last Oral Intake NPO since Meds taken in AM with sips of water? 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: PONV - call center operator Female Yes 02/17/25 09:37 HX of Motion Sickness No 02/17/25 09:37 HX of N/V After Surgery No 02/17/25 09:37 Non-Smoker Yes 02/17/25 09:37 Duration of Surgery greater No 02/17/25 09:37 than 60 minutes Number of Risk Factors 2 02/17/25 09:37 PONV Score Moderate Risk 02/17/25 09:37 Height & Weight Height & Weight: Anesthesia: Height & Weight Height 5 ft 2 in 01/20/25 13:52 Respiratory Assessment Respiratory Assessment - call center operator: Respiratory Tract Infection Hx - call center operator Hx Respiratory Tract Infection No 02/17/25 09:37 STOP Sleep Apnea STOP Sleep Apnea - call center operator: STOP Sleep Apnea - call center operator Hx Hypertension Yes: CONTROLLED WITH MEDS 02/17/25 09:37 Hx Sleep Apnea Yes 02/17/25 09:37 CPAP No 02/17/25 09:37 BIPAP Yes 02/17/25 09:37 Do you snore loudly (louder than talking or can be heard Do you often feel tired/ fatigued/ sleepy during daytime? Has anyone observed you stop breathing during sleep? STOP Results Positive 02/17/25 09:37 QUESTION #5 FULL TEXT : Do you snore loudly (louder than talking or can be heard through closed doors)? Tobacco Use History Tobacco Use History - call center operator: Tobacco Use History - call center operator Tobacco Use Smoking Status Never smoker 02/17/25 09:37 Hx Tobacco Use No 02/17/25 09:37 Years Smoking Packs Smoked per Day Smoking Cessation Date was within the last 15 years Hx Smoking Cessation Date Hx Smoking Cessation Counseling Hematologic Medial History Hematologic Hx - call center operator: Hematologic Medical Hx - documentation coordinator Hx of Blood Transfusion No 02/17/25 09:37 Hx of Transfusion in last 3 No 02/17/25 09:37 Months Date of Last Transfusion (if within last 3 months) Ever experience any problems No 02/17/25 09:37 with transfusion(s)? Specify any problems Hx of Preganancy in last 3 No 02/17/25 09:37 Months Nurse Filling Out Transfusion VCHRISTIN 02/17/25 09:37 & Questions: Date: 02/17/25 02/17/25 09:37 Time: 09:41 02/17/25 09:37 Patient unable to answer at this time (ie. 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: /Reproductive Hx- call center operator Hx Now No 02/17/25 09:37 Gestational Age (in weeks): EDC: Hx Hx Para Hx Section SAB No 02/17/25 09:37 FOR[facility]LY [facility] Medical History (Updated 02/17/25 @ 09:37 by Felecia Rey) History of Holter monitoring Iron deficiency anemia Pulmonary embolism DVT (deep venous thrombosis) Giant cell arteritis Wears glasses Post-menopausal Psoriasis Walker as ambulation aid Fatty liver History of migraine Seasonal allergies PONV (postoperative nausea and vomiting) Back pain Dietary restriction History of diverticulitis History of GI bleed Gastric reflux Non-smoker BiPAP (biphasic positive airway pressure) dependence Shortness of breath on exertion History of edema History of CHF (congestive heart failure) History of atrial fibrillation History of echocardiogram History of stress test Cardiology follow-up encounter Edema Chest pain, unspecified Diabetes Vitamin D deficiency Osteoporosis Acute on chronic diastolic (congestive) heart failure History of left heart catheterization (LHC) (~03/03/20) Hypothyroidism (acquired) Mixed hyperlipidemia Benign essential hypertension Cataract associated with type 2 diabetes mellitus 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 2 diabetes mellitus NATALIE (obstructive sleep apnea) Abnormal stress test Chest pain Chapman's palsy Thyroid disease Heart murmur Hives Recurrent UTI Bone fracture Back problem Arthritis Kidney stones HTN (hypertension) Anemia Asthma Obesity Home Medications ?Medication ?Instructions ?Recorded ?Last Taken ?Type epinephrine 0.3 mg/0.3 mL 0.3 mg IM ONCE 10/30/17 Unknown History injection, auto-injector (EpiPen) rosuvastatin 20 mg tablet 20 mg PO QDAY Cholesterol 11/22/17 02/11/24 History gabapentin 100 mg capsule 100 - 300 mg PO TID 05/27/20 02/12/24 History pen needle, diabetic 32 gauge x #100 ea 10/01/20 Unknown Rx (BD Ultra-Fine Eva Pen Needle) cholecalciferol (vitamin D3) 125 125 mcg PO DAILY 12/02/20 02/11/24 History mcg (5,000 unit) tablet spironolactone 25 mg tablet 25 mg PO BID water pill 04/26/22 02/11/24 History metoprolol tartrate 25 mg tablet 25 mg PO DAILY 05/23/22 02/12/24 History clobetasol 0.05 % topical cream 1 applic topical DAILY PRN psorasis 04/06/23 02/11/24 History montelukast 10 mg tablet 10 mg PO QHS 04/06/23 02/11/24 History (Singulair) nitroglycerin 0.4 mg sublingual 0.4 mg sublingual Q5M PRN .CHEST 04/26/23 Unknown Rx tablet PAIN #25 tabs blood-glucose sensor (Dexcom G7 #3 ea 06/08/23 Unknown Rx Sensor device) blood-glucose sensor (Dexcom G7 #3 ea 06/08/23 Unknown Rx Sensor device) blood-glucose,nutrient management specialist,cont #1 ea 06/19/23 Unknown Rx (Dexcom G7 Zigzag Tunnel Elastic Operator) denosumab 60 mg/mL subcutaneous 60 mg subcut [id number] #1 mL 07/12/23 Unknown Rx syringe (Prolia) clopidogrel 75 mg tablet 75 mg PO DAILY #90 tabs 01/22/24 02/13/25 Rx furosemide 20 mg tablet 20 mg PO .COMPLEX #180 tabs 01/22/24 02/11/24 Rx furosemide 40 mg tablet 40 mg PO .COMPLEX #180 tabs 01/22/24 02/11/24 Rx omeprazole 20 mg capsule,delayed 20 mg PO QDAY 02/26/24 Unknown History release melatonin 10 mg capsule 10 mg PO HS PRN sleep 10/23/24 Unknown History tocilizumab 162 mg/0.9 mL 162 mg subcut QWEEK ARTHRITIS 10/23/24 01/27/25 History subcutaneous pen injector (Actemra ACTPen) dapagliflozin propanediol 10 mg 10 mg PO DAILY #90 tabs 11/11/24 02/15/25 Rx tablet (Farxiga) famotidine 20 mg tablet 20 mg PO BID 11/27/24 Unknown History nystatin 100,000 unit/gram topical 1 applic topical TID PRN yeast 11/29/24 Unknown History powder dematitis prednisone 5 mg tablet 5 mg PO QDAY 01/01/25 Unknown History potassium chloride 10 mEq 30 meq PO BID 01/05/25 Unknown History tablet,extended release apixaban 5 mg (74 tabs) tablets in 5 mg PO BID 01/09/25 02/13/25 History a dose pack (App [employer] DVT-PE Treat 30D Start) mecobalamin (vitamin B12) 500 mcg 500 mcg PO DAILY 01/09/25 Unknown History chewable tablet Mounjaro 10 mg/0.5 mL subcutaneous 10 mg (0.5 mL) subcut QWEEK #2 mL 01/20/25 02/08/25 Rx pen injector (tirzepatide) insulin regular hum U-500 conc 500 300 unit (0.6 mL) subcut TID #54 mL 01/20/25 Unknown Rx unit/mL(3 mL) subcut pen (Humulin R U-500 (Conc) Insulin Kwikpen) isosorbide mononitrate 60 mg 60 mg PO DAILY #90 tabs 01/22/25 Unknown Rx tablet,extended release 24 hr levothyroxine 175 mcg tablet 175 mcg PO MOTUWETHFRSA 02/17/25 Unknown History Allergy/AdvReac Type Severity Reaction Status Date / Time adhesive Allergy Other Verified 02/17/25 09:19 Fish Containing Products Allergy Hives Verified 02/17/25 09:19 fluconazole (From Diflucan) Allergy Hives Verified 02/17/25 09:19 iodine Allergy Unknown Verified 02/17/25 09:19 orange Allergy Hives Verified 02/17/25 09:19 Penicillins Allergy Unknown Verified 02/17/25 09:19 pioglitazone (From Actos) Allergy Hives Verified 02/17/25 09:19 povidone-iodine (From Allergy Unknown Verified 02/17/25 09:19 Betadine) soap (From Betadine) Allergy Unknown Verified 02/17/25 09:19 Sulfa (Sulfonamide Allergy Unknown Verified 02/17/25 09:19 Antibiotics) sulfamethoxazole (From Allergy Unknown Verified 02/17/25 09:19 Bactrim) tetanus and diphtheria Allergy Hives Verified 02/17/25 09:19 toxoids trimethoprim (From Bactrim) Allergy Unknown Verified 02/17/25 09:19 amlodipine AdvReac Severe Swelling Verified 02/17/25 09:19 Family History Mother Diabetes Heart disease Hypertension High cholesterol Kidney disease Cancer Father Diabetes Hypertension High cholesterol Cancer Sister Cancer Surgical History (Updated 02/17/25 @ 09:37 by Felecia Rey) History of temporal artery biopsy Presence of stent in coronary artery (~03/13/19) History of surgery History of back surgery Presence of coronary angioplasty implant and graft (~03/13/19) Cataract extraction status, left eye Cataract extraction status, right eye History of left heart catheterization (LHC) H/O colonoscopy H/O right heart catheterization H/O thyroidectomy H/O sinus surgery History of tonsillectomy History of total abdominal hysterectomy H/O arthroscopic knee surgery Hx of cholecystectomy Social History Smoking Status: Never smoker second hand exposure: No alcohol intake: never substance use type: does not use caffeine: Yes Type: carbonated beverages Number of servings: 1 and tea Number of servings: 1 Audit: Pertinent Findings Pertinent Findings EKG Perinent findings: December 17, 2024. Sinus rhythm with PACs with aberrant conduction. Nonspecific ST abnormality. Stress test pertinent findings: September 21, 2021. EF of 84%. No perfusion changes considered diagnostic for stress-induced myocardial ischemia. Echo (EF%) pertinent findings: January 28, 2025. EF 65%. Moderate to severe RV systolic dysfunction. RVSP is 56 to 66 mmHg. No aortic stenosis. Heart catheterization pertinent findings: March 03, 2020. Yocha Dehe multivessel coronary artery disease. Distal LAD stent patent. Mid left circumflex stent patent. Normal LV size and function. Elevated left ventricular end-diastolic pressure. Consult pertinent findings: January 01, 2025. Prosper AKINS. (Cardiac) 1. Stented coronary [id number] LAD stent and mid left circumflex stent are both patent by the last cardiac cath. Last stress test in 2021 showed no ischemia. Latest EKGs in December showed no ischemia. Plan for echo (see above). 2. Dyspnea on scfoathc-[id number]-oyblmbcrcqxrug including recent diagnosed pulmonary embolus. Await pulmonology consult and echo. 3. Hypertension?chronic?well-controlled. 4. Obesity-may be contributing factor to her ongoing symptoms. 5. Pulmonary embolus?acute-diagnosed November 29, 2024. Etiology unclear. To be evaluated by pulmonology prior to further cardiac workup. 6. Palpitations?acute-will get a Holter. January 09, 2025. Phong AKINS. 1. Hypoxia?acute-patient had hypoxia with her BiPAP and was started on 2 L/min of supplemental oxygen. She has also failed her 6-minute pulmonary stress test and would benefit with portable oxygen. Will repeat test in the future. 2. Pulmonary embolus?acute-likely related to sedentary lifestyle. Anticoagulated with Eliquis. Continue anticoagulation and reassess symptoms and risk factors in 6 months. 3. Obstructive sleep apnea?chronic-benefiting from BiPAP. Will continue. 4. Obesity?complicates all aspects of patient's exam, plan, care and prognosis. Encourage weight loss. Additional pertinent findings: January 28, 2025. Predominant beat was normal sinus rhythm. Rare PVCs and PACs. 24-hour diary noted shortness of breath, palpitations and rapid heart rate which corresponded with normal sinus rhythm and/or sinus tachycardia. Recommendation Anesthesia Recommendation Anesthesia recommendation: OPTIMIZED for anesthesia
[2025-02-18] VITALS (13 sets, daily range): BP systolic 134–152; BP diastolic 48–84; PULSE 84–97; RESP 16–20; TEMP 36.2–36.6; O2SAT 93–99; BMI 56.6
--- OUTSIDE RECORDS SUMMARY | 2025-02-18 05:29 | XMS RPT_ITS | CCD ---
Author Organization [facility] Care Team Providers Care Director Of Speech Pathology Name Role Phone PORFIRIO GARZON MD, III Primary Care Physician Dr. Porfirio Garzon III Referring Provider Dr. Nash Hudson Attending Provider Dr. Willard Henriquez Primary Care Provider Dr. Nash Hudson Referring Provider Dr. Nash Hudson Other Provider Dr. Willard Henriquez Referring Provider Dr. Jorje Marques Attending Provider [phone] Willard Henriquez MD Primary Care Provider Dr. Willard Henriquez Primary Care Provider Dr. Willard Henriquez Primary Care Provider Dr. Willard Henriquez Referring Provider Dr. Jorje Marques Attending Provider [phone] Dr. Ventura Chris Attending Provider [facility] OIL REFINERY OPERATOR, OIL REFINERY OPERATORRadha Ureña Attending Provider Dr. Jorje Marques Attending Provider Willard Henriquez MD Primary Care Provider Dr. Willard Henriquez Primary Care Provider Dr. Willard Henriquez Referring Provider Dr. Jorje Marques Attending Provider [phone] Dr. Stan Garzon Attending Provider Dr. Stan Garzon Other Provider Willard Henriquez MD Primary Care Provider Dr. Willard Henriquez Primary Care Provider Dr. Willard Henriquez Referring Provider Dr. Stan Garzon Attending Provider Dr. Stan Garzon Other Provider Dr. Jorje Marques Attending Provider [phone] Willard Henriquez MD Primary Care Provider DR. ANDREA SANDOVAL DO Attending Unavailab neeta GARZON MD, PORFIRIO Ezio [facility] Primary Care Unavailabl e Dr. Willard Henriquez Primary Care Provider Dr. Willard Henriquez Referring Provider Roof OIL REFINERY OPERATOR, OIL REFINERY OPERATOR-Etelvina Ureña Attending Provider Dr. Jorej Marques Attending Provider Dr. Willard Henriquez Primary Care Provider Dr. Willard Henriquez Referring Provider Dr. Jorje Marques Attending Provider WILLARD HENRIQUEZ Primary Care Unavailable ANDREA SANDOVAL Referring Unavailable WILLARD HENRIQUEZ Primary Care Unavailable ANDREA SANDOVAL Admitting Unavailable ANDREA SANDOVAL Attending Unavailable WILLARD HENRIQUEZ Primary Care Unavailable JERICHO SMALLS Unavailable Dr. Ventura Chris Attending Provider SHANEL Roe Attending Provider Dr. Willard Henriquez Primary Care Provider Dr. Willard Henriquez Referring Provider Dr. Ventura Chris Attending Provider SHANEL Roe Attending Provider Dr. Jorje Marques Attending Provider [phone] Dr. Willard Henriquez Primary Care Provider Dr. Willard Henriquez Referring Provider Dr. Jorje Marques Attending Provider Dr. Willard Henriquez Primary Care Provider Dr. Willard Henriquez Referring Provider Dr. Jorje Marques Attending Provider SHANEL Roe Attending Provider Dr. Rahul Stone Attending Provider Dr. Kilo Rey Attending Provider Yemi GRIMM, Willard Holguin Primary Care Provider Yemi GRIMM, Willard Holguin Primary Care Provider Yemi GRIMM, Willard Holguin Primary Care Provider Chase Arevalo MD, Joseph Unavailable Gautam DO, David M Unavailable Jared GRIMM, Nic Unavailable Toy GRIMM, Chilo Main Unavailable Kilo Rey MD Unavailable Antolin GRIMM, Nikki Le Unavailable Jaime GRIMM, Andrea Unavailable Ron MOORE.ENROLLMENT REPRESENTATIVE, Padmini Unavailable Jesica Sierra PA-C Unavailable Dr. Willard Henriquez MD Primary Care Provider Dr. Nikki Dangelo MD Attending Provider Antolin GRIMM, Dr. Jordan Referring Provider Yemi GRIMM, Dr. Lamar Referring Provider Dr. Jericho Cervantes MD Attending Provider Dr. Jorje Marques MD Attending Provider Yemi GRIMM, Dr. Lamar Primary Care Provider Dr. Nikki Dangelo MD Attending Provider Antolin GRIMM, Dr. Jordan Referring Provider Darling OIL REFINERY OPERATOR-C, Cathy Attending Provider Amanuel GRIMM, Dr. Carroll Emergency Provider Amanuel GRIMM, Dr. Carroll Attending Provider [phone] Darling OIL REFINERY OPERATOR-C, Cathy Referring Provider Darling OIL REFINERY OPERATOR-C, Cathy Other Provider [phone] David Florez DO Attending Provider Yemi GRIMM, Dr. Lamar Primary Care Provider Antolin GRIMM, Dr. Jordan Attending Provider Antolin GRIMM, Dr. Jordan Referring Provider Yemi GRIMM, Dr. Lamar Referring Provider Helen GRIMM, Dr. Boggs Attending Provider King SIRISHA, Dr. Recinos Attending Provider Darling OIL REFINERY OPERATOR-C, Cathy Attending Provider Amanuel GRIMM, Dr. Carroll Attending Provider Amanuel GRIMM, Dr. Carroll Emergency Provider Darling OIL REFINERY OPERATOR-C, Cathy Referring Provider Darling OIL REFINERY OPERATOR-C, Cathy Other Provider Dr. David Florez DO Attending Provider [phone] Venancio GRIMM, Son Emergency Provider Yemi GRIMM, Willard Holguin Primary Care Provider [phone] Son Craft MD Attending Provider Prosper OIL REFINERY OPERATOR-C, Robert Adelita Attending Provider Prosper OIL REFINERY OPERATOR-C, Robert H Referring Provider Damaso OIL REFINERY OPERATOR-C, Shelli Attending Provider [phone] Damaso OIL REFINERY OPERATOR-C, Shelli Referring Provider David Florez DO Unavailable Jared GRIMM, Nic Unavailable Unavailab neeta Rey MD, Kilo S Unavailable Antolin GRIMM, Nikki Le Unavailable Jaime GRIMM, Andrea Unavailable VELMA WHELANH Attending Unavailable SELF, SELF Referring Unavailable YEMI, WILLARD A Primary Care Unavailable DEE EUCEDA Referring Unavailable KASSY, PHILLIP Attending Unavailable YEMI, WILLARD A Primary Care Unavailable YEMI, WILLARD A Referring Unavailable YEMI, WILLARD A Primary Care Unavailable KNOBLE, PADMINI Referring Unavailable YEMI, WILLARD A Primary Care Unavailable KNOBLE, PADMINI Attending Unavailable YMEI, WILLARD A Primary Care Unavailable KNOBLE, PADMINI Referring Unavailable YEIM, WILLARD A Primary Care Unavailable KNOBLEESVINPADMINI Attending Unavailable YEMI, WILLARD A Primary Care Unavailable YEMI, WILLARD A Attending Unavailable YEMI, WILLARD A Primary Care Unavailable YEMI, WILLARD A Attending Unavailable YEMI, WILLARD A Primary Care Unavailable YEMI, WILLARD A Referring Unavailable YEMI, WILLARD A Primary Care Unavailable KNOBLE, PADMINI Attending Unavailable SELF Referring Unavailable YEMI, WILLARD A Primary Care Unavailable YEMI, WILLARD A Attending Unavailable YEMI, WILLARD A Primary Care Unavailable Yemi GRIMM, Dr. Lamar Primary Care Provider Antolin RGIMM, Dr. Jordan Attending Provider Antolin GRIMM, Dr. Jordan Referring Provider Raji GRIMM, Dr. Umana Attending Provider Ron STOVE POLISHER.ENROLLMENT REPRESENTATIVE, Padmini Unavailable Jesica Sierra PA-C Unavailable Yaya Reveles Attending Unavailable Yemi, Willard Primary Care Unavailable Robert Cheng Attending Unavailable Robert Cheng Referring Unavailable Yemi, Willard Primary Care Unavailable Vellanki, Nikki Attending Unavailable Vellanki, Nikki Referring Unavailable Yemi, Willard Primary Care Unavailable Cathy Darling Attending Unavailable Darling, Cathy Referring Unavailable Yemi, Willard Primary Care Unavailable Vellanki, Nikki Attending Unavailable Vellanki, Nikki Referring Unavailable Yemi, Willard Primary Care Unavailable Vellanki, Nikki Attending Unavailable Vellanki, Nikki Referring Unavailable Yemi, Willard Primary Care Unavailable Vellanki, Nikki Attending Unavailable Vellanki, Nikki Referring Unavailable Yemi, Willard Primary Care Unavailable Jonathanlanki, Nikki Attending Unavailable Vellanki, Nikki Referring Unavailable Yemi, Willard Primary Care Unavailable Nic Coleman Attending Unavailable Nic Coleman Referring Unavailable Yemi, Willard Primary Care Unavailable Ata Portillo Attending Unavailable Yemi, Willard Primary Care Unavailable Yemi, Willard Referring Unavailable Vellanki, Nikki Attending Unavailable Vellanki, Nikki Referring Unavailable Yemi, Willard Primary Care Unavailable Vellanki, Nikki Attending Unavailable Vellanki, Nikki Referring Unavailable Yemi, Willard Primary Care Unavailable Vellanki, Nikki Attending Unavailable Yemi, Willard Primary Care Unavailable Vellanki, Nikki Referring Unavailable Yemi, Willard Primary Care Unavailable Son Craft Attending Unavailable Yemi, Willard Primary Care Unavailable Monica Klein Attending Unavailable Monica Klein Referring Unavailable Cathy Darling Attending Unavailable Cathy Darling Referring Unavailable Yemi, Willard Primary Care Unavailable Yemi, Willard Primary Care Unavailable Glen Vital Attending Unavailable Vellanki, Nikki Attending Unavailable Vellanki, Nikki Referring Unavailable Yemi, Willard Primary Care Unavailable Dong Alegria Attending Unavailable Yemi, Willard Primary Care Unavailable Shelli Petit Attending Unavailable Shelli Petit Referring Unavailable Yemi, Willard Primary Care Unavailable Vellanki, Nikki Attending Unavailable Vellanki, Nikki Referring Unavailable Yemi, Willard Primary Care Unavailable Vellanki, Nikki Attending Unavailable Yemi, Willard Primary Care Unavailable Vellanki, Nikki Referring Unavailable Vellanki, Nikki Attending Unavailable Vellanki, Nikki Referring Unavailable Yemi, Willard Primary Care Unavailable Nic Coleman Attending Unavailable Yemi, Willard Referring Unavailable Yemi, Willard Primary Care Unavailable Yemi, Willard Attending Unavailable Yemi, Willard Referring Unavailable Yemi, Willard Primary Care Unavailable Jericho Cervantes Attending Unavailable Yemi, Willard Referring Unavailable Yemi, Willard Primary Care Unavailable Carrie Waters Attending Unavailabl e Yemi, Willard Referring Unavailable Yemi, Willard Primary Care Unavailable Cathy Darling Attending Unavailable Yemi, Willard Referring Unavailable Yemi, Willard Primary Care Unavailable Shelli Petit Attending Unavailable Yemi, Willard Referring Unavailable Yemi, Willard Primary Care Unavailable Jorje Marques Attending Unavailable Yemi, Willard Referring Unavailable Yemi, Willard Primary Care Unavailable Lou Zapata Attending Unavailable Yemi, Willard Primary Care Unavailable Yemi, Willard Referring Unavailable Cathy Darling Attending Unavailable Yemi, Willard Referring Unavailable Yemi, Willard Primary Care Unavailable Jorje Marques Attending Unavailable Yemi, Willard Primary Care Unavailable Yemi, Willard Referring Unavailable Jorje Marques Attending Unavailable Yemi, Willard Referring Unavailable Yemi, Willard Primary Care Unavailable Cathy Darling Attending Unavailable Yemi, Willard Referring Unavailable Yemi, Willard Primary Care Unavailable Robert Cheng H Attending Unavailable Yemi, Willard Referring Unavailable Yemi, Willard Primary Care Unavailable Dong Alegria Attending Unavailable Roof, Robert H Referring Unavailable Yemi, Willard Primary Care Unavailable David Florez Attending Unavailable Phong, Cathy Referring Unavailable Yemi, Willard Primary Care Unavailable Cathy Darling Consulting Unavailable Robert Cheng H Attending Unavailable Roof, Robert H Referring Unavailable Yemi, Willard Primary Care Unavailable Shelli Petit Attending Unavailable Shelli Petit Referring Unavailable Yemi, Willard Primary Care Unavailable Nikki Dangelo Referring Unavailable Yemi, Willard Primary Care Unavailable Nikki Dangelo Attending Unavailable Allergies Allergy Classification Reported Allergen(s) Allergy Type Date of Onset Reaction(s) Facility amLODIPine (1 source) amLODIPine Drug Allergy 023 Swelling [facility] Work Phone: Azole Antifungals (1 source) Fluconazole Drug Allergy 015 [facility] HMG-CoA Reductase Inhibitors (statins) (1 source) atorvastatin Drug Allergy 010 Rash, Itching [facility] Iodine (and Iodine containting drugs) (1 source) Iodine Drug Allergy 005 Anaphylaxis [facility] metFORMIN (1 source) metFORMIN Drug Allergy 014 Diarrhea, GI Upset [facility] Penicillins (antibiotic) (1 source) Penicillins Drug Allergy 005 Unknown [facility] Povidone-Iodine (1 source) Povidone-Iodine Drug Allergy 005 Anaphylaxis [facility] Sulfamethoxazole / Trimethoprim (1 source) Sulfamethoxazole / Trimethoprim Drug Allergy 005 [facility] Sulfonamides (antibiotic) (1 source) Sulfonamides (Antibiotic) Drug Allergy 006 Swelling [facility] Thiazolidinediones (glitazones) (1 source) pioglitazone Drug Allergy 007 Other: See Comments [facility] (20 sources) amLODIPine; Translations: [amlodipine] Drug Allergy 022 Swelling [facility] Work Phone: (20 sources) Fish - dietary; Translations: [FISH] Food allergy 005 Unknown, Anaphylaxis [facility] Work Phone: (20 sources) Fluconazole; Translations: [fluconazole] Drug Allergy 015 [facility] Work Phone: (20 sources) Iodine; Translations: [iodine topical] Drug Allergy 005 Anaphylaxis (disorder), Anaphylaxis, [facility] Work Phone: (1 source) [place] - fruit Food allergy [facility] Work Phone: (1 source) Penicillin; Translations: [penicillin] Drug Allergy [facility] Work Phone: (20 sources) pioglitazone; Translations: [pioglitazone] Drug Allergy 022 [facility] Work Phone: Comment on above: Swelling (20 sources) Povidone-Iodine; Translations: [povidone iodine topical] Drug Allergy 005 Unknown, Anaphylaxis [facility] Work Phone: (20 sources) Sulfamethoxazole / Trimethoprim; Translations: [sulfamethoxazole-t rimethoprim] Drug Allergy 005 Unknown, [facility] Work Phone: (1 source) Sulfonamides (Antibiotic); Translations: [sulfa drugs] Drug allergy [facility] Work Phone: (1 source) tetanus toxoid vaccine, inactivated; Translations: [tetanus toxoid] Drug Allergy [facility] Work Phone: (20 sources) [place] - fruit; Translations: [ORANGE] Allergy to substance 005 Unknown, Anaphylaxis [facility] Work Phone: [phone] (20 sources) Penicillins; Translations: [PENICILLINS] Allergy to substance 005 Unknown [facility] Work Phone: [phone] (20 sources) Sulfamethoxazole Drug Allergy 022 Unknown [facility] (20 sources) Sulfonamides (Antibiotic); Translations: [SULFA (SULFONAMIDE ANTIBIOTICS)] Allergy to substance 006 Unknown, Swelling [facility] Work Phone: [phone] (20 sources) Trimethoprim Drug Allergy 022 Unknown [facility] (20 sources) Fish Containing Products; Translations: [Fish Containing Products] Allergy to substance [facility] (20 sources) soap; Translations: [soap] Allergy to substance Unknown [facility] (20 sources) tetanus and diphtheria toxoids; Translations: [tetanus and diphtheria toxoids] Allergy to substance [facility] (20 sources) atorvastatin; Translations: [ATORVASTATIN CALCIUM] Drug Allergy 010 Rash, Itching [facility] Work Phone: [phone] (20 sources) metFORMIN; Translations: [METFORMIN] Drug Allergy 014 Diarrhea, GI Upset [facility] Work Phone: [phone] (20 sources) pioglitazone; Translations: [PIOGLITAZONE HCL] Drug Allergy 007 Other: See Comments [facility] Work Phone: [phone] (20 sources) Adhesive agent; Translations: [adhesive] Allergy to substance 022 Other [facility] Comment on above: WELTS IF LEFT ON EUGENIO G TIME (20 sources) Diphth,Pertus(Acell ),Tetanus; Translations: [DIPHTH,PERTUS(ACEL L),TETANUS] Drug Allergy 023 [facility] (2 sources) Sulfamethoxazole / Trimethoprim; Translations: [SULFAMETHOXAZOLE-T RIMETHOPRIM] Drug Allergy [facility] (1 source) Fluconazole Propensity to adverse reactions to drug [facility] (1 source) Povidone-Iodine Drug Allergy [facility] (1 source) Sulfonamides (Antibiotic) Propensity to adverse reactions to drug 006 Hives, Shortness of Breath, Swelling [facility] (1 source) Tetanus vaccine Propensity to adverse reactions to drug 025 Hives [facility] (1 source) amLODIPine Drug Allergy [facility] (1 source) Fluconazole Drug Allergy [facility] (1 source) Iodine Drug Allergy [facility] (1 source) [place] - fruit Drug allergy (disorder) [facility] (1 source) pioglitazone Drug Allergy [facility] (1 source) Povidone-Iodine Drug Allergy [facility] (1 source) Sulfamethoxazole Drug Allergy [facility] (1 source) Trimethoprim Drug Allergy [facility] Medications Current Medications Medication Drug Class(es) Dates Sig (Normalized) Sig (Original) acetaminophen 500 mg oral tablet (20 sources) Start: 02-23-2023 take 2 tablets by mouth every six hours as needed acetaminophen (TYLENOL) 500 mg tablet Take 2 tablets by mouth every 6 hours as needed for pain. 02/23/2023 Active take 1 tablet by christen every eight hours as needed acetaminophen (TYLENOL) 500 mg tablet Ta ke 500 mg by mouth every 8 hours as needed. 0 Active Comment on above: Take 500 mg by mouth every 8 hours as needed. Take 2 tablets by mo [facility] every 6 hours as needed for pain. Apixaban (20 sources) Factor Xa Inhibitor Start: 01-09-2025 Start: 11-29-2024 End: 12-05-2024 take 1 tablet by mouth twice daily apixaban (ELIQUIS) 5 mg tab(s) Indications: Acute pulmonary embolism, unspecified pulmonary embolism type, unspecified whether acute cor pulmonale present (HCC) Take 1 tablet by mouth two times a day. 180 tablet 1 12/05/2024 Active Start: 11-29-2024 End: 01-09-2025 Start: 11-29-2024 Start: 11-29-2024 take 1 tablet by mouth once Ap ixaban (Eliquis Dvt-Pe Treat 30d Start) 5 mg (74 tabs) tablets,dose pack Active 0 .Route .COMPLEX 74 November 29, 2024 12:00am orally per package directions take 1 tablet by christen th every twelve hours Eliquis 5 MG tablet Take 1 tablet by mouth every 12 hours. Active ascorbic acid 500 mg oral tablet (9 sources) Vitamin C Start: 01-06-2025 take 1 tablet by mouth every other day ascorbic acid, vitamin C, (VITAMIN C) 500 mg tablet Take 1 tablet by mouth every other day. 01/06/2025 Active BIPAP (20 sources) BIPAP daily at bedtime. Active BIPAP daily at b edtime. 0 Active Comment on above: daily at bedtime. bisacodyl 5 mg delayed release oral tablet (20 sources) Stimulant Laxative Start: take 2 tablets by mouth once daily as needed for constipation bisacodyl EC (DULCOLAX) 5 mg EC tablet Take 2 tablets by mouth once daily as needed for constipation. 02/23/2023 Active Comment on above: Take 2 tablets by mo uth once daily as needed for constipation. Blood-Glucose Meter,Continuous (Dexcom G7 Mechanical Insulator) misc (8 sources) Start: Blood-Glucose Meter,Continuous (Dexcom G7 Mechanical Insulator) misc Active 0 .Route June 19, 2023 12:00am As directed Start: 06-19-2023 Blood-Glucose Meter,Continuous (Dexcom G7 Mechanical Insulator) misc Active 0 .Route June 18, 2023 11:00pm As directed Blood-Glucose Sensor (Dexcom G7 Sensor) device (16 sources) Start: 06-08-2023 Blood-Glucose Sensor (Dexcom G7 Sensor) device Active 0 .Route June 08, 2023 12:00am As directed Start: 06-08-2023 Blood-Glucose Sensor (Dexcom G7 Sensor) device Active 0 .Route June 07, 2023 11:00pm As directed Calcium Carbonate (20 sources) calcium carbonat e (ANTACID CALCIUM ORAL) Take by mouth as needed. Last dose 02/09 Active calcium carbonat e (ANTACID CALCIUM ORAL) Take by mouth as needed. Last dose 02/09 0 Active calcium carbonat e (ANTACID CALCIUM ORAL) Take by mouth as needed. 0 Active Comment on above: Take by mouth as nee ded. Take by mouth as nee ded. Last dose 02/09 cholecalciferol 0.125 mg ora l capsule (20 sources) Vitamin D Start: 12-02-2020 Start: 10-17-2020 End: 05-31-2024 take 1 capsule by mouth once daily in the morning Cholecalciferol, Vitamin D3, 125 mcg (5,000 unit) cap Take 1 capsule by mouth every morning. Last dose 02/07/23 05/31/2024 Active Comment on above: Take 1 capsule by [facility] once daily. ciprofloxacin 500 mg oral tablet (20 sources) Quinolone Antimicrobial Start: 02-24-20 take 1 tablet by mouth once daily Ciprofloxacin Hcl (Cipro) 500 mg tablet Active 500 MG PO DAILY February 23, 2022 12:00am Start: 04-05-2019 End: 06-28-2019 Start: 04-05-2019 End: 06-28-2019 take 1 tablet by mouth twice daily Ciprofloxacin Hcl 500 MG tablet Discontinued 500 mg PO TWICE A DAY April 05, 2019 12:00am June 28, 2019 10:57am Start: 11-11-2016 End: 10-04-2017 Start: 11-11-2016 End: 10-04-2017 take 1 tablet by mouth twice daily Ciprofloxacin Hcl 500 MG tablet Discontinued 500 mg PO TWICE A DAY November 11, 2016 1:00am October 04, 2017 5:46pm clobetasol propionate 0.0005 mg/mg topical ointment (20 sources) Corticosteroid Start: 09-11-2023 End: 12-10-2023 clobetasol (TEMOVATE) 0.05 % ointment Indications: Psoriasis Apply to affected area two times a day. 30 g 1 09/11/2023 Active Start: 09-11-2023 Clobetasol 0.0 5 % Ointment Apply 1 Application topically 2 times daily. 09/11/2023 Active Start: 04-06-2023 Start: 02-15-2021 clobetasol 0.0 5% topical cream Apply 1 will, Topical, qDay, # 15 gram(s), 0 Refill(s), Cream, 120.5 Start Date: 02/15/21 Status: Ordered Start: 09-16-2020 End: 05-03-2023 clobetasol (TEMOVATE) 0.05 % ointment Indications: Psoriasis Apply to affected area twice daily. 30 g 1 02/02/2023 Active Start: 02-21-2020 End: 02-14-2022 Start: 02-21-2020 End: 02-14-2022 Clobetasol 0.05 % cream Disc ontinued 1 NMA TOPICAL DAILY February 21, 2020 12:00am February 14, 2022 12:57pm Comment on above: Apply to affected ar ea twice daily. Apply to affected ar ea two times a day. clopidogrel 75 mg oral tablet (20 sources) [id number] Platelet Inhibitor Start: 03-06-2019 End: 01-22-2024 take 1 tablet by mouth once daily clopidogrel (PLAVIX) 75 mg tablet Take 1 tablet by mouth once daily. 09/29/2023 Active Comment on above: Take 75 mg by mouth once daily. Take 75 mg by mouth every morning. HOLD 5 DAYS PRE OP PER DR SANDOVAL AND NASH GARCIA Take 1 tablet by christen th once daily. 1 ml denosumab 60 mg/ml prefilled syringe (20 sources) RANK Ligand Inhibitor Start: 07-12-2023 Start: 02-10-2021 Prolia Dose : 60 mg =, Subcutaneous, q6mo, 0 Refill(s) Start Date: 02/10/21 Status: Ordered Start: 01-07-2021 End: 04-06-2023 0.4 ml enoxaparin sodium 100 mg/ml prefilled syringe (20 sources) Low Molecular Weight Heparin Start: 10-25-2023 enoxaparin (LOVENOX) 40 mg/0.4 mL 40 mg sub Q twice a day. 4 Each 10/25/2023 Active Comment on above: 40 mg sub Q twice a day. EPINEPHrine (20 sources) alpha-Adrenergic Agonist, beta-Adrenergic Agonist, Catecholamine Start: 02-10-2021 EPINEPHrine 0.3 m g injectable kit Dose : 0.3 mg =, Intramuscular, q5min, PRN Anaphylaxis, 0 Refill(s) Start Date: 02/10/21 Status: Ordered Start: 11-14-2020 EPINEPHrine (E PIPEN) 0.3 mg/0.3 mL auto-injector Indications: Medication refill Use auto-injector x 1 for allergic reaction. 2 Each 2 11/14/2020 Active Start: 10-30-2017 Start: 10-30-2017 Epinephrine (E pipen) 0.3 mg/0.3 mL auto-injector Active 0.3 mg IM ONCE October 30, 2017 1:00am Comment on above: Use auto-injector x 1 for allergic reaction. erythromycin 0.005 mg/mg ophthalmic ointment (7 sources) Macrolide, Macrolide Antimicrobial Start: 01-09-2025 Start: 01-20-2024 End: 01-20-2024 Erythromycin 5 MG/GM Ointmen t ophthalmic ointment Apply 1 Application to both eyes once. 01/20/2024 Active famotidine 20 mg oral tablet (20 sources) Histamine-2 Receptor Antagonist Start: 06-21-2019 End: 02-26-2024 take 1 tablet by mouth twice daily famotidine (PEPCID) 20 mg tablet Take 1 tablet by mouth two times a day. 180 tablet 1 10/25/2023 Active Start: 06-21-2019 End: 02-26-2024 Start: 06-21-2019 End: 02-26-2024 Start: 06-21-2019 End: 02-26-2024 Comment on above: Take 1 tablet by christen th at bedtime as needed. Take 1 tablet by christen th twice daily. Take 1 tablet by christen th two times a day. 24 hr ferrous sulfate 142 mg extended release oral tablet (1 source) Start: 01-06-2025 take 1 tablet by mouth every other day Ferrous Sulfate ER (Slow Fe) 45 MG Tab CR Take 1 tablet by mouth Every other day. 01/06/2025 Active ferrous sulfate (SLOW FE) 137 mg (45 mg iron) TbER (9 sources) Start: 01-06-2025 take 1 tablet by mouth every other day ferrous sulfate (SLOW FE) 137 mg (45 mg iron) TbER Take 1 tablet by mouth every other day. 01/06/2025 Active Flash Glucose Sensor (Freestyle Octavia 14 Day Sensor) kit (20 sources) Start: 11-25-2019 Flash Glucose Sensor (Freestyle Octavia 14 Day Sensor) kit Active 0 .ROUTE .MEDSUPPLY 2 November 25, 2019 11:48am change every 14 days Start: 11-25-2019 Flash Glucose Sensor (Freestyle Octavia 14 Day Sensor) kit Active 0 .ROUTE .MEDSUPPLY 1 November 25, 2019 11:40am apply to back of arm to moniter BG. change q 14 days Start: 11-25-2019 End: 04-11-2022 Flash Glucose Sensor (Freest yle Octavia 14 Day Sensor) kit Discontinued 0 .ROUTE .MEDSUPPLY 1 November 24, 2019 11:00pm April 11, 2022 9:09am apply to back of arm to moniter BG. change q 14 days Start: 11-25-2019 End: 04-11-2022 Flash Glucose Sensor (Freest yle Octavia 14 Day Sensor) kit Discontinued 0 .ROUTE .MEDSUPPLY 2 November 24, 2019 11:00pm April 11, 2022 9:09am change every 14 days Start: 11-25-2019 End: 04-11-2022 Flash Glucose Sensor (Freest yle Octavia 14 Day Sensor) kit Discontinued 0 .ROUTE .MEDSUPPLY 1 November 25, 2019 12:00am April 11, 2022 10:09am apply to back of arm to moniter BG. change q 14 days Start: 11-25-2019 End: 04-11-2022 Flash Glucose Sensor (Freest yle Octavia 14 Day Sensor) kit Discontinued 0 .ROUTE .MEDSUPPLY 2 November 25, 2019 12:00am April 11, 2022 10:09am change every 14 days Start: 11-25-2019 Flash Glucose Sensor (Freestyle Octavia 14 Day Sensor) kit Active 0 .ROUTE .MEDSUPPLY 1 November 25, 2019 12:00am apply to back of arm to moniter BG. change q 14 days Start: 11-25-2019 Flash Glucose Sensor (Freestyle Octavia 14 Day Sensor) kit Active 0 .ROUTE .MEDSUPPLY 2 November 25, 2019 12:00am change every 14 days FreeStyle Octavia 14 Day Sensor kit (1 source) Start: 02-10-2021 FreeStyle Libr e 14 Day Sensor kit FreeStyle Octavia 14 Day Sensor kit, 0 Refill(s) Start Date: 02/10/21 Status: Ordered furosemide 40 mg oral tablet (20 sources) Loop Diuretic Start: 08-19-2021 End: 01-22-2024 Start: 08-19-2021 End: 01-22-2024 Start: 08-19-2021 End: 09-29-2022 take 1 tablet by mouth twice daily Furosemide 20 mg tablet Discontinued 20 mg PO TWICE A DAY 60 November 11, 2021 2:07pm February 14, 2022 12:58pm Start: 11-11-2016 End: 01-22-2024 furosemide (LASIX) 40 mg tab let Take 1 tablet by mouth twice daily. Per [facility] 08/23/2021 Active Start: 11-11-2016 End: 01-22-2024 Start: 11-11-2016 End: 01-22-2024 Start: 11-11-2016 End: 01-22-2024 take 1 tablet by mouth once daily furOSEmide 40 MG tablet Take 1 tablet by mouth daily. 01/22/2024 Active Start: 11-11-2016 End: 01-22-2024 Comment on above: Take 1 tablet by christen th twice daily. Per [facility] gabapentin 100 mg oral capsule (20 sources) Anti-epileptic Agent Start: 05-27-2020 End: 05-31-2025 take 3 capsules by mouth three times daily gabapentin (NEURONTIN) 100 mg capsule 300 mg by mouth three times/day 270 capsule 1 05/20/2024 05/31/2025 Active Start: 05-27-2020 End: 01-18-2023 Start: 10-30-2017 End: 02-12-2019 Comment on above: 300 mg by mouth thre e times/day Do not start before January 02, 2022. 300 mg by mouth thre e times/day hydrocortisone 25 mg/ml topical cream (20 sources) Corticosteroid Start: 10-15-2021 insulin, regular, human 500 unt/ml injectable solution (20 sources) Insulin Start: 01-29-2025 insulin regular human, CONCENTRATED 500 UNIT/ML, (HUMULIN R) 500 unit/mL soln Indications: Uncontrolled type 2 diabetes mellitus with hyperglycemia (HCC) 300 units TID, Per Endo: Dr. Marques 01/29/2025 Active Start: 05-31-2024 insulin regula r human, CONCENTRATED 500 UNIT/ML, (HUMULIN R) 500 unit/mL soln Indications: Uncontrolled type 2 diabetes mellitus with hyperglycemia (HCC) 150 units before breakfast 180 units before lunch 150 units before dinner 80-100 units at bedtime Depends on BS tests 05/31/2024 Active Start: 08-30-2022 End: 01-20-2025 Start: 12-03-2021 End: 03-15-2023 Insulin Regular Hum U-500 Co nc (Humulin R U-500 (Conc) Insulin) 500 unit/mL solution Discontinued 0 SC ONCE August 23, 2022 4:49pm March 15, 2023 5:05pm 185 units tid with meals and 80 units bid with snacks Start: 12-03-2021 Insulin Regula r Hum U-500 Conc (Humulin R U-500 (Conc) Insulin) 500 unit/mL solution Active 0 SC ONCE December 03, 2021 12:21pm 320 units tid with meals and 160 units bid with snacks Start: 02-10-2021 Humulin R (CON CENTRATED) 500 units/mL 20 mL VIAL* 250 unit(s), Subcutaneous (INT), TID Start Date: 02/10/21 Status: Ordered Start: 11-19-2020 End: 03-15-2023 Start: 11-19-2020 End: 12-03-2021 inject 250 [IU] by subcutaneous injection once at breakfast, then inject 100 [IU] by subcutaneous injection once Insulin Regular Hum U-500 Conc (Humulin R U-500 (Conc) Insulin) 500 unit/mL solution Discontinued 0 SC ONCE November 19, 2021 12:36pm December 03, 2021 12:23pm 250 units at breakfast and lunch and 100 units at supper subcut once; Start: 10-01-2020 End: 11-19-2020 Start: 01-29-2020 End: 10-01-2020 Insulin Regular Hum U-500 Co nc (Humulin R U-500 (Conc) Insulin) 500 unit/mL solution Discontinued 0 SC THREE TIMES A DAY February 25, 2020 11:07am October 01, 2020 12:58pm 20U with breakfast, 20U with lunch, 10U with supper subcut three times a day; Start: 01-29-2020 End: 10-01-2020 Insulin Regular Hum U-500 Co nc (Humulin R U-500 (Conc) Insulin) 500 unit/mL solution Discontinued 0 SC THREE TIMES A DAY February 25, 2020 11:07am October 01, 2020 12:58pm 20U with breakfast, 20U with lunch, 10U with supper subcut three times a day; Start: 12-18-2019 End: 05-31-2024 insulin regular human, CONCENTRATED 500 UNIT/ML, (HUMULIN R) 500 unit/mL soln Indications: Uncontrolled type 2 diabetes mellitus with hyperglycemia (HCC) Inject 15 units ac brkt; 10 unts ac lunch; 15 units ac supper 4 Vial 3 12/18/2019 05/31/2024 Discontinued (Adjust Sig - Block E-Cancel) Start: 03-14-2019 End: 01-29-2020 Start: 03-14-2019 End: 01-29-2020 Insulin Regular Hum U-500 Co nc 500 UNITS/ML insulin pen Discontinued 0 U SC AC, HS, & 0200 March 14, 2019 12:00am January 29, 2020 3:32pm Please contact the information source for Protocol details. Start: 10-30-2017 End: 10-01-2020 Start: 10-30-2017 End: 01-29-2020 Insulin Regular Hum U-500 Co nc (Humulin R U-500 (Conc) Insulin) 500 unit/mL solution Discontinued 0 SC THREE TIMES A DAY October 30, 2017 1:00am January 29, 2020 3:32pm use for correction per sliding scale SC TID Start: 10-30-2017 End: 01-29-2020 Insulin Regular Hum U-500 Co nc (Humulin R U-500 (Conc) Insulin) 500 unit/mL solution Discontinued 0 SC THREE TIMES A DAY October 30, 2017 1:00am January 29, 2020 3:32pm use for correction per sliding scale SC TID Comment on above: Inject 15 units ac b rkt; 10 unts ac lunch; 15 units ac supper levoFLOXacin 500 mg oral tablet (2 sources) Quinolone Antimicrobial Start: 02-01-20 End: 02-11-20 take 1 tablet by mouth once daily levoFLOXacin (LEVAQUIN) 500 mg tablet Take 1 tablet by mouth once daily for 10 days. 10 tablet 01/31/2025 02/10/2025 Active melatonin 10 mg oral capsule (20 sources) Start: 10-23-19 Start: 08-19-2021 End: 10-23-2024 Start: 08-19-2021 End: 10-23-2024 take 1 tablet by mouth at bedtime as needed for sleep Melatonin 5 mg tablet Discontinued 5 mg PO BEDTIME as needed for Sleep October 15, 2021 1:00am October 23, 2024 3:27pm Start: 04-14-2021 melatonin 3 mg oral tablet Dose : 3 mg = 1 tab(s), Oral, qHS, PRN as needed for insomnia, # 60 tab(s), 0 Refill(s) Start Date: 04/14/21 Status: Ordered Comment on above: Take 5-10 mg by mout h daily at bedtime. 24 hr metoprolol succinate 25 mg extended release oral tablet (20 sources) beta-Adrenergic Destiney Start: 04-24-2023 End: 08-12-2024 take 1 tablet by mouth once daily in the morning metoprolol succinate ER (TOPROL XL) 25 mg 24 hr tablet Take 1 tablet by mouth every morning. 90 tablet 1 08/12/2024 Active Start: 04-04-2019 End: 04-24-2023 take 1 tablet by mouth twice daily metoprolol succinate ER (TOPROL XL) 25 mg 24 hr tablet Take 1 tablet by mouth twice daily. 0 04/04/2019 04/24/2023 Discontinued Start: 03-14-2019 End: 05-23-2022 Start: 03-14-2019 End: 05-23-2022 take 1 tablet by mouth twice daily Metoprolol Tartrate 25 mg tablet Discontinued 25 mg PO TWICE A DAY 180 May 09, 2019 11:14am December 02, 2020 3:13pm Start: 02-12-2019 End: 02-14-2019 Comment on above: Take 1 tablet by christen th twice daily. Take 1 tablet by christen th every morning. montelukast 10 mg oral tablet (20 sources) Leukotriene Receptor Antagonist Start: 02-21-20 End: 08-12-20 take 1 tablet by mouth once daily at bedtime montelukast (SINGULAIR) 10 mg tablet Take 1 tablet by mouth daily at bedtime. 90 tablet 1 08/12/2024 Active Comment on above: Take 1 tablet by christen th daily at bedtime. Neomycin (20 sources) Aminoglycoside Antibacterial neomycin sulfate (NEOMYCIN 1%) Irrigate 500 mL as instructed one time only. Active nitroglycerin 0.4 mg sublingual tablet (20 sources) Nitrate Vasodilator Start: 11-12-19 End: 04-26-20 nitroglycerin sublingual (NITROQUICK) 0.4 mg SL tablet Dissolve 1 tablet under the tongue every 5 minutes as needed for Chest Pain. 75 tablet 08/15/2019 Active Comment on above: Dissolve 1 tablet un gayle the tongue every 5 minutes as needed for Chest Pain. nitroglycerin 0.4 mg sublingual tablet (1 source) Start: 02-11-20 nitroglycerin 0.4 mg sublingual tablet 0 Refill(s) Start Date: 02/10/21 Status: Ordered nystatin 100 unt/mg topical powder (20 sources) Polyene Antifungal Start: 11-30-19 Start: 11-29-2024 Nystatin 100,0 00 unit/gram powder Active 1 NMA TOPICAL THREE TIMES A DAY as needed for yeast dematitis November 29, 2024 12:00am must be powder formulation Start: 11-09-2023 nystatin 02601 0 UNIT/GM Cream Apply 1 Application topically 2 times daily. 11/09/2023 Active Start: 02-21-2020 End: 01-01-2025 Start: 02-21-2020 End: 11-29-2024 Nystatin 100,000 unit/gram c ream Discontinued 1 NMA TOPICAL DAILY November 09, 2023 1:46pm November 29, 2024 6:40pm Start: 02-21-2020 End: 11-09-2023 Nystatin Discontinued 1 APPL IC TOPICAL DAILY February 23, 2022 8:50am February 02, 2023 2:28pm nystatin 100,000 units/g topical cream (1 source) Start: 02-10-2021 nystatin 100,0 00 units/g topical cream Apply 1 will, Topical, BID, PRN Rash, 0 Refill(s) Start Date: 02/10/21 Status: Ordered omeprazole 20 mg delayed release oral capsule (12 sources) Proton Pump Inhibitor Start: 02-26-2024 polyethylene glycol 3350 63268 mg powder for oral solution (20 sources) Osmotic Laxative Start: 02-24-2023 polyethylene glycol 3350 17 gram packet Take 1 Packet by mouth once daily as needed. Dissolve dose in 4 - 8 ounces of liquid and take as directed. 02/24/2023 Active Comment on above: Take 1 Packet by christen once daily as needed. Dissolve dose in 4 - 8 ounces of liquid and take as directed. Take 1 Packet by christen once daily. Dissolve dose in 4 - 8 ounces of liquid and take as directed. potassium chloride 10 meq extended release oral tablet (20 sources) Start: 09-22-2022 End: 03-25-2024 Start: 09-22-2022 take 10 mEq by mouth once isha y Potassium Chloride Active 10 MEQ PO DAILY September 22, 2022 1:00am Start: 09-21-2022 End: 08-12-2024 Start: 02-24-2022 take 10 mEq by mouth twice daily Potassium Chloride Active 10 MEQ PO TWICE A DAY February 24, 2022 12:00am Start: 04-14-2021 Potassium Chlo ride (Eqv-K-Tab) 10 mEq oral tablet, extended release Dose : 10 mEq = 1 tab(s), Oral, BID, 0 Refill(s) Start Date: 04/14/21 Status: Ordered Start: 02-21-2020 End: 02-24-2022 Start: 02-21-2020 End: 08-19-2021 take 1 tablet by mouth once daily Potassium Chloride 20 mEq tablet extended release Discontinued 20 meq PO DAILY February 21, 2020 12:00am August 19, 2021 5:17pm Start: 11-11-2016 End: 02-12-2019 Comment on above: Take 1 tablet by christen twice daily. Per [facility] Take 2 tablets by [facility] twice daily. Take 2 tablets by [facility] two times a day. rosuvastatin calcium 20 mg oral tablet (20 sources) HMG-CoA Reductase Inhibitor Start: take 1 tablet by mouth once daily rosuvastatin (CRESTOR) 20 mg tablet Indications: Hyperlipidemia with target LDL less than 100 Take 1 tablet by mouth once daily. 90 tablet 1 01/13/2025 Active Start: 11-22-2017 End: 05-20-2024 take 1 tablet by mouth once daily rosuvastatin (CRESTOR) 20 mg tablet Indications: Hyperlipidemia with target LDL less than 100 Take 1 tablet by mouth once daily. 90 tablet 1 01/13/2025 Active Comment on above: Take 1 tablet by christen once daily. spironolactone 25 mg oral tablet (20 sources) Aldosterone Antagonist Start: 02-08-20 End: 08-06-20 take 1 tablet by mouth twice daily spironolactone (ALDACTONE) 25 mg tablet Indications: Benign hypertension Take 1 tablet by mouth two times a day. 180 tablet 1 02/07/2025 08/06/2025 Active Start: 10-30-2017 End: 04-23-2024 Start: 10-30-2017 End: 04-26-2022 Start: 10-30-2017 End: 03-26-2019 Spironolactone 25 mg tablet Discontinued 40 mg PO TWICE A DAY February 12, 2019 11:44am March 26, 2019 2:53pm Start: 10-30-2017 End: 04-26-2022 Comment on above: Take 1 tablet by christen twice daily. TAKE 1 TABLET BY CHRISTEN TWICE DAILY tirzepatide (MOUNJARO) 10 mg/0.5 mL pen injector (3 sources) inject 10 mg by subcutaneous injection once tirzepatide (MOUNJARO) 10 mg/0.5 mL pen injector Inject 10 mg subcutaneously one time a week. Per Endo: Dr. Marques Active 0.9 ml tocilizumab 180 mg/ml auto-injector (20 sources) Interleukin-6 Receptor Antagonist Start: 10-23-19 Start: 10-23-2024 Tocilizumab (A ctemra Actpen) 162 mg/0.9 mL pen injector Active mg SC EVERY WEEK October 23, 2024 1:00am inject 162 mg by sub cutaneous injection every week tocilizumab (ACTEMRA) 162 mg/0.9 mL subcutaneous injection Inject 162 mg subcutaneously one time a week. Active TRULICITY 3 mg/0.5 mL pen injector (20 sources) Start: 12-20-2021 inject 4.5 mg by subcutaneous injection every week TRULICITY 3 mg/0.5 mL pen injector Inject 4.5 mg subcutaneously one time a week. Monday12/20/2021 Active Start: 12-20-2021 inject 4.5 mg by sub cutaneous injection every week TRULICITY 3 mg/0.5 mL pen injector Inject 4.5 mg subcutaneously one time a week. 12/20/2022 Active Start: 12-20-2021 inject 4.5 mg by sub cutaneous injection every week TRULICITY 3 mg/0.5 mL pen injector Inject 4.5 mg subcutaneously one time a week. MONDAY 0 12/20/2021 Active Start: 12-20-2021 TRULICITY 3 mg /0.5 mL pen injector 4.5 mg daily 0 12/20/2021 Active Start: 12-20-2021 TRULICITY 3 mg /0.5 mL pen injector INJECT THE CONTENTS OF ONE SYRINGE SUBCUTANEOUSLY ONCE A WEEK. 0 12/20/2021 Active Comment on above: INJECT THE CONTENTS OF ONE SYRINGE SUBCUTANEOUSLY ONCE A WEEK. 4.5 mg daily Inject 4.5 mg subcut aneously one time a week. MONDAY Inject 4.5 mg subcut aneously one time a week. Monday Trulicity 3 MG/0.5ML Solution Pen-injector (1 source) Start: Trulicity 3 MG/0.5ML Solution Pen-injector INJECT 3 MG SUBCUTANEOUSLY ONCE A WEEK: TO BE USED WHEN 4.5 IS NOT AVAIABLE 02/12/2024 Active Trulicity 3 MG/0.5ML Solution Pen-injector (1 source) Start: Trulicity 3 MG/0.5ML Solution Pen-injector INJECT 3 MG SUBCUTANEOUSLY ONCE A WEEK: TO BE USED WHEN 4.5 IS NOT AVAIABLE 02/12/2024 Active Trulicity 4.5 MG/0.5ML Solution Pen-injector (1 source) Start: inject 4.5 mg by subcutaneous injection once Trulicity 4.5 MG/0.5ML Solution Pen-injector INJECT 4.5 MG SUBCUTANEOUSLY EVERY Monday03/08/2024 Active Trulicity 4.5 MG/0.5ML Solution Pen-injector (1 source) Start: inject 4.5 mg by subcutaneous injection once Trulicity 4.5 MG/0.5ML Solution Pen-injector INJECT 4.5 MG SUBCUTANEOUSLY EVERY Monday03/08/2024 Active vitamin b12 0.5 mg oral tablet (10 sources) Vitamin B12 Start: take 1 tablet by mouth once daily cyanocobalamin (B-12 DOTS) 500 mcg tablet Take 1 tablet by mouth once daily. 01/06/2025 Active Vitamin D3 (1 source) Start: take 1 dose by mouth once daily Vitamin D3 Dose : 5,000 Int unit =, Oral, qDay, 0 Refill(s) Start Date: 02/10/21 Status: Ordered (20 sources) Start: Start: 01-09-2025 Start: 01-01-2025 Start: 11-27-2024 Start: 03-25-2024 End: 01-05-2025 Start: 03-25-2024 Start: 03-25-2024 End: 11-29-2024 Start: 06-19-2023 Start: 06-08-2023 Start: 12-19-2022 End: 10-10-2023 Start: 09-22-2022 End: 09-23-2022 Start: 04-12-2022 End: 10-10-2023 Start: 04-11-2022 End: 12-19-2022 Start: 04-11-2022 End: 04-12-2022 Start: 04-11-2022 End: 04-11-2022 Start: 12-20-2021 End: 01-04-2024 Start: 11-29-2020 End: 12-02-2020 Start: 11-19-2020 End: 12-20-2021 Start: 10-01-2020 Start: 11-25-2019 End: 12-03-2019 Start: 11-25-2019 End: 04-11-2022 Start: 11-25-2019 End: 04-11-2022 Start: 02-12-2019 End: 06-21-2019 Start: 03-05-2018 End: 02-25-2020 Start: 02-26-2018 End: 03-05-2018 Start: 10-30-2017 End: 02-12-2019 Start: 10-30-2017 End: 02-26-2018 Start: 11-11-2016 End: 10-30-2017 Completed/Discontinued Medications Medication Drug Class(es) Dates Sig (Normalized) Sig (Original) acetaminophen 325 mg / HYDROcodone bitartrate 5 mg oral tablet (20 sources) Opioid Agonist Start: 02-26-2023 End: 10-25-2023 take 1 tablet by mouth every six hours as needed HYDROcodone-acetami nophen (NORCO) 5-325 mg per tablet Indications: Other acute postoperative pain Take 1 tablet by mouth every 6 hours as needed. 28 tablet 0 02/26/2023 10/25/2023 Discontinued Start: 06-22-2021 acetaminophen- hydrocodone 325 mg-5 mg oral tablet Dose = 1 tab(s), Oral, q6h, PRN for pain, 0 Refill(s), 124.55 Start Date: 06/22/21 Status: Ordered Start: 11-29-2020 End: 12-02-2020 Start: 11-29-2020 End: 12-02-2020 Hydrocodone-Acetaminophen 1 TABLET tablet Discontinued 1 {tbl} PO EVERY 6 HOURS NEEDED as needed for Pain 8 November 29, 2020 December 01, 2020 12:00am December 02, 2020 12:03am Start: 11-29-2020 End: 12-02-2020 take 1 tablet by mouth every six hours as needed Hydrocodone-Acetaminophen Discontinued 1 TABLET PO EVERY 6 HOURS NEEDED 8 November 29, 2020 December 02, 2020 12:03am Start: 10-30-2017 End: 02-12-2019 Start: 10-30-2017 End: 02-12-2019 Hydrocodone-Acetaminophen 2. 5-325 mg tablet Discontinued 1 {tbl} PO ONCE as needed October 30, 2017 1:00am February 12, 2019 11:48am Start: 10-30-2017 End: 02-12-2019 take 1 tablet by mouth once Hydrocodone-Acetaminophen Discontinued 1 TABLET PO ONCE October 30, 2017 1:00am February 12, 2019 11:48am take 1 tablet by christen th every eight hours as needed HYDROcodone-acetaminophen (NORCO) 5-325 mg per tablet Take 1 tablet by mouth every 8 hours as needed for pain. 0 Active Comment on above: Take 1 tablet by christen th every 8 hours as needed for pain. Take 1 tablet by christen th every 6 hours as needed. acetaminophen 325 mg / oxyCO DONE hydrochloride 5 mg oral tablet (20 sources) Opioid Agonist Start: 03-14-2020 End: 03-17-2020 Start: 03-14-2020 End: 03-17-2020 Oxycodone-Acetaminophen 1 TA BLET tablet Discontinued 1 {tbl} PO EVERY 6 HOURS NEEDED as needed for Pain 12 March 14, 2020 March 16, 2020 12:00am March 17, 2020 12:02am Start: 03-14-2020 End: 03-17-2020 take 1 tablet by mouth every six hours as needed Oxycodone-Acetaminophen Discontinued 1 TABLET PO EVERY 6 HOURS NEEDED 12 March 14, 2020 March 17, 2020 12:02am amLODIPine 5 mg oral tablet (20 sources) Dihydropyridine Calcium Channel Destiney Start: 06-21-2019 End: 06-28-2019 Start: 11-11-2016 End: 02-14-2019 aspirin 81 mg delayed release oral tablet (20 sources) Platelet Aggregation Inhibitor, Nonsteroidal Anti-inflammatory Drug Start: 03-14-2019 End: 03-01-2024 Start: 11-11-2016 End: 03-26-2019 take 1 tablet by christen th once daily in the morning aspirin 81 mg chewable tablet Take 81 mg by mouth every morning. HOLD 5 DAYS PRE OP PER DR SANDOVAL, AND DR HUDSON'S office is aware 0 Active Comment on above: Take 81 mg by mouth once daily. Take 81 mg by mouth every morning. HOLD 5 DAYS PRE OP PER DR SANDOVAL, AND DR HUDSON,NASH Take 81 mg by mouth every morning. HOLD 5 DAYS PRE OP PER DR SANDOVAL, AND DR HUDSON'S office is aware cephalexin 500 mg oral capsu le (16 sources) Cephalosporin Antibacterial Start: 12-17-2024 End: 01-01-2025 Start: 05-09-2024 End: 11-11-2024 Cholecalciferol (Vitamin D3) (Vitamin D3) 5,000 UNIT capsule (18 sources) Start: 11-29-2020 End: 12-02-2020 take 1 capsule by mouth once daily Cholecalciferol (Vitamin D3) (Vitamin D3) 5,000 UNIT capsule Discontinued 5000 UNIT PO DAILY November 29, 2020 2:10pm December 02, 2020 3:11pm Start: 11-29-2020 End: 12-02-2020 take 1 capsule by mouth once daily Cholecalciferol (Vitamin D3) (Vitamin D3) 5,000 UNIT capsule Discontinued 5000 U PO DAILY November 29, 2020 12:00am December 02, 2020 3:11pm Start: 11-29-2020 End: 12-02-2020 take 1 capsule by mouth once daily Cholecalciferol (Vitamin D3) (Vitamin D3) 5,000 UNIT capsule Discontinued 5000 UNIT PO DAILY November 28, 2020 11:00pm December 02, 2020 2:11pm Start: 11-29-2020 End: 12-02-2020 take 1 capsule by mouth once daily Cholecalciferol (Vitamin D3) (Vitamin D3) 5,000 UNIT capsule Discontinued 5000 UNIT PO DAILY November 29, 2020 12:00am December 02, 2020 3:11pm clindamycin 300 mg oral capsule (1 source) Lincosamide Antibacterial Start: 06-22-2021 clindamycin 300 mg oral capsule Dose : 300 mg = 1 cap(s), Oral, q8h, 0 Refill(s), 124.55 Start Date: 06/22/21 Status: Ordered COMPOUNDED PRESCRIPTION (20 sources) Start: 12-11-2018 COMPOUNDED PRESCRIPTION Indications: Peripheral venous insufficiency pair of zippered support hose 6 Each 2 12/11/2018 Active Start: 12-21-2016 End: 10-24-2022 COMPOUNDED PRESCRIPTION Katheryn cations: Tachycardia , Hypokalemia Cbc Bmp tsh DX: tachycardia, hypokalemia Please do stat and call to [phone] 1 Each 0 12/21/2016 10/24/2022 Discontinued Start: 12-21-2016 COMPOUNDED PRE SCRIPTION Indications: Tachycardia , Hypokalemia Cbc Bmp tsh DX: tachycardia, hypokalemia Please do stat and call to [phone] 1 Each 0 12/21/2016 Active Comment on above: Cbc Bmp tsh DX: tachycardia, hypokalemia Please do stat and call to [phone] pair of zippered sup port hose cyclobenzaprine hydrochloride 10 mg oral tablet (15 sources) Muscle Relaxant Start: 023 End: 024 take 1 tablet by mouth every eight hours as needed cyclobenzaprine (FLEXERIL) 10 mg tablet Take 1 tablet by mouth three times daily as needed. 0 02/23/2023 10/25/2023 Discontinued Comment on above: Take 1 tablet by christen three times daily as needed. dapagliflozin 10 mg oral tablet (20 sources) Sodium-Glucose Cotransporter 2 Inhibitor Start: End: Comment on above: Take by mouth daily with breakfast. Take 1 tablet daily Take 10 mg by mouth daily with breakfast. Take 1 tablet daily diphenhydrAMINE hydrochloride 25 mg oral tablet (20 sources) Histamine-1 Receptor Antagonist Start: End: Start: 02-21-2020 End: 05-27-2020 Diphenhydramine Hcl (Benadry l Allergy) 25 mg tablet Discontinued 25 mg PO .COMPLEX February 21, 2020 12:12pm May 27, 2020 3:31pm 25 mg PO take 2 tabs at bedtime the day prior to procedure and take 2 tabs the morning of procedure; Start: 03-11-2019 End: 03-14-2019 Start: 03-11-2019 End: 03-14-2019 Diphenhydramine Hcl (Benadry l) 25 mg capsule Discontinued 25 mg PO .COMPLEX March 11, 2019 12:00am March 14, 2019 8:34am 25 mg PO 2 tabs @ bedtime day prior to procedure and 2 tablets the morning of procedure; docusate sodium 100 mg oral capsule (20 sources) Start: 02-23-2023 End: 10-25-2023 take 1 capsule by mouth twice daily docusate sodium (COLACE) 100 mg capsule Take 1 capsule by mouth twice daily. 0 02/23/2023 10/25/2023 Discontinued Start: 03-14-2020 End: 05-27-2020 Start: 03-14-2020 End: 05-27-2020 take 1 capsule by mouth once daily Docusate Sodium 100 MG capsule Discontinued 100 mg PO DAILY March 14, 2020 12:00am May 27, 2020 3:31pm Comment on above: Take 1 capsule by mo [facility] twice daily. doxycycline hyclate 20 mg or al tablet (20 sources) Tetracycline-class Drug Start: 10-15-2021 End: 02-02-2023 Dulaglutide (20 sources) GLP-1 Receptor Agonist Start: 11-11-2024 End: 01-20-2025 Start: 11-11-2024 Start: 11-11-2024 Dulaglutide (T rulicity) 4.5 mg/0.5 mL pen injector Active 4.5 mg SC EVERY WEEK November 11, 2024 3:25pm Start: 05-30-2024 End: 11-11-2024 Start: 05-30-2024 End: 11-11-2024 Dulaglutide (Trulicity) 4.5 mg/0.5 mL pen injector Discontinued 4.5 mg SC EVERY WEEK May 30, 2024 12:00am November 11, 2024 3:26pm Start: 01-04-2024 End: 11-29-2024 Start: 01-04-2024 End: 11-29-2024 Dulaglutide (Trulicity) 3 mg /0.5 mL pen injector Discontinued 3 mg SC EVERY WEEK 2 January 04, 2024 12:00am November 29, 2024 6:38pm to be used when 4.5 mg is not avaialble Start: 01-04-2024 Dulaglutide (T rulicity) 3 mg/0.5 mL pen injector Active 3 mg SC EVERY WEEK 2 January 04, 2024 12:00am to be used when 4.5 mg is not avaialble Start: 10-17-2023 End: 02-05-2024 Start: 10-17-2023 End: 02-05-2024 Dulaglutide (Trulicity) 4.5 mg/0.5 mL pen injector Discontinued 4.5 mg SC October 17, 2023 3:15pm February 05, 2024 2:22pm Start: 10-17-2023 Dulaglutide (T rulicity) 4.5 mg/0.5 mL pen injector Active 4.5 MG SC October 17, 2023 3:15pm Start: 10-17-2023 Dulaglutide (T rulicity) 4.5 mg/0.5 mL pen injector Active 4.5 MG SC October 17, 2023 2:15pm Start: 04-24-2023 End: 10-17-2023 Start: 04-24-2023 End: 10-17-2023 Dulaglutide (Trulicity) 4.5 mg/0.5 mL pen injector Discontinued 4.5 mg SC April 24, 2023 12:34pm October 17, 2023 3:15pm Start: 04-24-2023 End: 10-17-2023 Dulaglutide (Trulicity) 4.5 mg/0.5 mL pen injector Discontinued 4.5 MG SC April 24, 2023 12:34pm October 17, 2023 3:15pm Start: 04-24-2023 End: 10-17-2023 Dulaglutide (Trulicity) 4.5 mg/0.5 mL pen injector Discontinued 4.5 MG SC April 24, 2023 11:34am October 17, 2023 2:15pm Start: 04-24-2023 Dulaglutide (T rulicity) 4.5 mg/0.5 mL pen injector Active 4.5 MG SC April 24, 2023 11:34am Start: 04-24-2023 Dulaglutide (T rulicity) 4.5 mg/0.5 mL pen injector Active 4.5 MG SC April 24, 2023 12:34pm Start: 10-26-2022 End: 04-24-2023 Start: 10-26-2022 End: 04-24-2023 Dulaglutide (Trulicity) 4.5 mg/0.5 mL pen injector Discontinued 4.5 mg SC October 26, 2022 11:51am April 24, 2023 12:35pm Start: 10-26-2022 End: 04-24-2023 Dulaglutide (Trulicity) 4.5 mg/0.5 mL pen injector Discontinued 4.5 MG SC October 26, 2022 10:51am April 24, 2023 11:35am Start: 10-26-2022 End: 04-24-2023 Dulaglutide (Trulicity) 4.5 mg/0.5 mL pen injector Discontinued 4.5 MG SC October 26, 2022 11:51am April 24, 2023 12:35pm Start: 10-26-2022 Dulaglutide (T rulicity) 4.5 mg/0.5 mL pen injector Active 4.5 MG SC October 26, 2022 11:51am Start: 10-26-2022 Dulaglutide (T rulicity) 4.5 mg/0.5 mL pen injector Active 4.5 MG SC October 26, 2022 10:51am Start: 08-30-2022 End: 09-22-2022 Start: 08-30-2022 End: 09-22-2022 Dulaglutide (Trulicity) 1.5 mg/0.5 mL pen injector Discontinued 1.5 mg SC EVERY WEEK August 30, 2022 1:00am September 22, 2022 3:44pm Start: 05-23-2022 End: 10-26-2022 Start: 05-23-2022 End: 10-26-2022 Dulaglutide (Trulicity) 4.5 mg/0.5 mL pen injector Discontinued 4.5 mg SC May 23, 2022 8:41am October 26, 2022 11:51am Start: 05-23-2022 End: 10-26-2022 Dulaglutide (Trulicity) 4.5 mg/0.5 mL pen injector Discontinued 4.5 MG SC May 23, 2022 8:41am October 26, 2022 11:51am Start: 05-23-2022 End: 10-26-2022 Dulaglutide (Trulicity) 4.5 mg/0.5 mL pen injector Discontinued 4.5 MG SC May 23, 2022 7:41am October 26, 2022 10:51am Start: 05-23-2022 Dulaglutide (T rulicity) 4.5 mg/0.5 mL pen injector Active 4.5 MG SC May 23, 2022 7:41am Start: 05-23-2022 Dulaglutide (T rulicity) 4.5 mg/0.5 mL pen injector Active 4.5 MG SC May 23, 2022 8:41am Start: 03-07-2022 End: 05-23-2022 Start: 03-07-2022 End: 05-23-2022 Dulaglutide (Trulicity) 4.5 mg/0.5 mL pen injector Discontinued 4.5 mg SC EVERY WEEK March 07, 2022 12:00am May 23, 2022 8:41am Start: 03-07-2022 End: 05-23-2022 Dulaglutide (Trulicity) 4.5 mg/0.5 mL pen injector Discontinued 4.5 MG SC EVERY WEEK 2 March 06, 2022 11:00pm May 23, 2022 7:41am Start: 03-07-2022 End: 05-23-2022 Dulaglutide (Trulicity) 4.5 mg/0.5 mL pen injector Discontinued 4.5 MG SC EVERY WEEK 2 March 07, 2022 12:00am May 23, 2022 8:41am Start: 03-07-2022 Dulaglutide (T rulicity) 4.5 mg/0.5 mL pen injector Active 4.5 MG SC EVERY WEEK 2 March 07, 2022 12:00am Start: 12-20-2021 Dulaglutide (T rulicity) 3 mg/0.5 mL pen injector Active 3 MG SC EVERY WEEK 2 December 20, 2021 3:01pm Start: 12-20-2021 End: 03-07-2022 Start: 12-20-2021 End: 03-07-2022 Dulaglutide (Trulicity) 3 mg /0.5 mL pen injector Discontinued 3 mg SC EVERY WEEK 2 December 20, 2021 12:00am March 07, 2022 12:35pm Start: 12-20-2021 End: 03-07-2022 Dulaglutide (Trulicity) 3 mg /0.5 mL pen injector Discontinued 3 MG SC EVERY WEEK 2 December 19, 2021 11:00pm March 07, 2022 11:35am Start: 12-20-2021 End: 03-07-2022 Dulaglutide (Trulicity) 3 mg /0.5 mL pen injector Discontinued 3 MG SC EVERY WEEK 2 December 20, 2021 12:00am March 07, 2022 12:35pm Start: 12-20-2021 Dulaglutide (T rulicity) 3 mg/0.5 mL pen injector Active 3 MG SC EVERY WEEK 2 December 20, 2021 12:00am Start: 11-09-2021 End: 12-20-2021 Start: 11-09-2021 End: 12-20-2021 Dulaglutide (Trulicity) 1.5 mg/0.5 mL pen injector Discontinued 1.5 mg SC EVERY WEEK 2 November 09, 2021 1:00am December 20, 2021 3:01pm Start: 10-15-2021 End: 11-09-2021 Start: 10-15-2021 End: 11-09-2021 Dulaglutide (Trulicity) 0.75 mg/0.5 mL pen injector Discontinued 0.75 mg SC EVERY WEEK 2 October 15, 2021 1:00am November 09, 2021 6:57pm Start: 11-22-2017 End: 11-25-2019 Dulaglutide (Trulicity) 0.75 mg/0.5 mL pen injector Discontinued 1.5 mg SC EVERY WEEK November 22, 2017 2:01pm November 25, 2019 11:26am Start: 10-30-2017 End: 11-25-2019 Start: 10-30-2017 End: 11-22-2017 Dulaglutide (Trulicity) 0.75 mg/0.5 mL pen injector Discontinued 0.75 mg SC EVERY WEEK October 30, 2017 1:00am November 22, 2017 2:06pm flash glucose scanning reade r (FREESTYLE OCTAVIA 14 DAY READER) misc (20 sources) Start: 08-15-2019 End: 10-25-2023 flash glucose scanning reade r (FREESTYLE OCTAVIA 14 DAY READER) misc 1 Device every 2 weeks. 14 Each 5 08/15/2019 10/25/2023 Discontinued Start: 08-15-2019 flash glucose scanning reader (FREESTYLE OCTAVIA 14 DAY READER) misc 1 Device every 2 weeks. 14 Each 5 08/15/2019 Active Comment on above: 1 Device every 2 wee ks. Flash Glucose Scanning [place] (Freestyle Octavia 2 [place]) misc (20 sources) Start: 04-12-2022 End: 10-10-2023 Flash Glucose Scanning [place] (Freestyle Octavia 2 [place]) misc Discontinued 0 .Route 1 April 12, 2022 8:16am October 10, 2023 3:07pm As directed Start: 04-12-2022 End: 10-10-2023 Flash Glucose Scanning Reade r (Freestyle Octavia 2 [place]) misc Discontinued 0 .Route 1 April 12, 2022 7:16am October 10, 2023 2:07pm As directed Start: 04-12-2022 Flash Glucose Scanning [place] (Freestyle Octavia 2 [place]) misc Active 0 .Route 1 April 12, 2022 7:16am As directed Start: 04-12-2022 Flash Glucose Scanning [place] (Freestyle Octavia 2 [place]) misc Active 0 .Route 1 April 12, 2022 8:16am As directed Start: 04-11-2022 End: 04-12-2022 Flash Glucose Scanning Reade r (Freestyle Octavia 2 [place]) misc Discontinued 0 .Route 1 April 10, 2022 11:00pm April 12, 2022 7:16am As directed Start: 04-11-2022 End: 04-12-2022 Flash Glucose Scanning Reade r (Freestyle Octavia 2 [place]) misc Discontinued 0 .Route 1 April 11, 2022 12:00am April 12, 2022 8:16am As directed flash glucose sensor (FREESTYLE OCTAVIA 14 DAY SENSOR) kit (20 sources) Start: 03-23-2021 flash glucose sensor (FREESTYLE OCTAVIA 14 DAY SENSOR) kit Indications: Uncontrolled type 2 diabetes mellitus with hyperglycemia (HCC) Apply new sensor every 14 days as directed. E11.65. Insulin: yes 8 Kit 3 03/23/2021 Active Comment on above: Apply new sensor leisa ry 14 days as directed. E11.65. Insulin: yes Flash Glucose Sensor (Freestyle Octavia 2 Sensor) kit (20 sources) Start: 12-19-2022 End: 10-10-2023 Flash Glucose Sensor (Freestyle Octavia 2 Sensor) kit Discontinued 0 .Route 2 December 19, 2022 10:50am October 10, 2023 3:07pm 1 sensor q 14 days Start: 12-19-2022 End: 10-10-2023 Flash Glucose Sensor (Freest yle Octavia 2 Sensor) kit Discontinued 0 .Route 2 December 19, 2022 9:50am October 10, 2023 2:07pm 1 sensor q 14 days Start: 12-19-2022 Flash Glucose Sensor (Freestyle Octavia 2 Sensor) kit Active 0 .Route 2 December 19, 2022 9:50am 1 sensor q 14 days Start: 12-19-2022 Flash Glucose Sensor (Freestyle Octavia 2 Sensor) kit Active 0 .Route 2 December 19, 2022 10:50am 1 sensor q 14 days Start: 04-11-2022 End: 12-19-2022 Flash Glucose Sensor (Freest yle Octavia 2 Sensor) kit Discontinued 0 .Route 2 April 11, 2022 10:46am December 19, 2022 9:50am 1 sensor q 14 days Start: 04-11-2022 End: 12-19-2022 Flash Glucose Sensor (Freest yle Octavia 2 Sensor) kit Discontinued 0 .Route 2 April 11, 2022 11:46am December 19, 2022 10:50am 1 sensor q 14 days Start: 04-11-2022 Flash Glucose Sensor (Freestyle Octavia 2 Sensor) kit Active 0 .Route 2 April 11, 2022 10:46am 1 sensor q 14 days Start: 04-11-2022 Flash Glucose Sensor (Freestyle Octavia 2 Sensor) kit Active 0 .Route 2 April 11, 2022 11:46am 1 sensor q 14 days Start: 04-11-2022 End: 04-11-2022 Flash Glucose Sensor (Freest yle Octavia 2 Sensor) kit Discontinued 0 .Route 2 April 10, 2022 11:00pm April 11, 2022 10:47am As directed Start: 04-11-2022 End: 04-11-2022 Flash Glucose Sensor (Freest yle Octavia 2 Sensor) kit Discontinued 0 .Route 2 April 11, 2022 12:00am April 11, 2022 11:47am As directed fluticasone propionate 0.05 mg/actuat metered dose nasal spray (20 sources) Corticosteroid Start: 08-13-2019 take 2 spray(s) nasal route once daily fluticasone (FLONASE) 50 mcg/actuation nasal spray Indications: Acute non-recurrent maxillary sinusitis Use 2 Sprays in each nostril once daily. 1 Bottle 0 08/13/2019 Active Comment on above: Use 2 Sprays in each nostril once daily. hydroCHLOROthiazide 12.5 mg oral tablet (20 sources) Thiazide Diuretic Start: 11-05-2021 End: 11-05-2022 take 1 capsule by mouth once daily hydroCHLOROthiazide 12.5 mg capsule Indications: Benign hypertension Take 1 capsule by mouth once daily. 90 capsule 3 11/05/2021 06/10/2022 Discontinued Start: 02-10-2021 hydroCHLOROthi azide 12.5 mg oral capsule Dose : 12.5 mg = 1 cap(s), Oral, qDay, 0 Refill(s) Start Date: 02/10/21 Status: Ordered Start: 05-27-2020 End: 08-16-2022 Start: 03-02-2020 End: 05-27-2020 Start: 11-11-2016 End: 05-27-2020 Start: 11-11-2016 End: 05-27-2020 Hydrochlorothiazide 25 mg ta blet Discontinued 12.5 mg PO DAILY February 12, 2019 11:44am May 27, 2020 3:29pm Start: 11-11-2016 End: 02-12-2019 take 1 tablet by mouth once daily Hydrochlorothiazide 25 MG tablet Discontinued 25 mg PO DAILY November 11, 2016 1:00am February 12, 2019 11:50am Comment on above: Take 1 capsule by mo [facility] once daily. Take 1 tablet by christen once daily. hydrocortisone 10 mg/ml / neomycin 3.5 mg/ml / polymyxin b 92802 unt/ml otic solution (9 sources) Aminoglycoside Antibacterial, Polymyxin-class Antibacterial, Corticosteroid Start: 11-27-2024 End: 11-29-2024 Start: 11-27-2024 End: 11-29-2024 Emzgwntc-Mkcypomjo-Bu 3.5-10 ,000-1 mg/mL-unit/mL-% solution Discontinued 4 NMA OTIC THREE TIMES A DAY November 27, 2024 12:00am November 29, 2024 6:35pm ibuprofen 200 mg oral tablet (9 sources) Nonsteroidal Anti-inflammatory Drug take 1 tablet by mouth every six hours as needed ibuprofen (MOTRIN) 200 mg tablet Take 200 mg by mouth every 6 hours as needed. Last dose 02/07/23 0 Active Comment on above: Take 200 mg by mouth every 6 hours as needed. Last dose 11/23/22 Take 200 mg by mouth every 6 hours as needed. Last dose 02/07/23 3 ml insulin isophane, human 100 unt/ml pen injector (17 sources) Start: 2 End: 2 3 ml insulin lispro 200 unt/ml pen injector (20 sources) Insulin Analog Start: 2 End: 2 Start: 02-22-2022 End: 02-24-2022 Insulin Lispro (Humalog Kwik pen Insulin) 200 unit/mL (3 mL) insulin pen Discontinued 20 U SC February 22, 2022 12:00am February 24, 2022 2:50pm Start: 10-15-2021 End: 11-10-2021 Start: 10-15-2021 End: 11-10-2021 Insulin Lispro (Humalog Kwik pen Insulin) 200 unit/mL (3 mL) insulin pen Discontinued 0 SC .COMPLEX October 15, 2021 4:36pm November 10, 2021 5:44pm 180 20 units; 221 25 units; 261 30 units; 300 35 units subcut every 4 hours for high blood sugar; Start: 10-15-2021 End: 11-10-2021 Insulin Lispro (Humalog Kwik pen Insulin) 200 unit/mL (3 mL) insulin pen Discontinued 0 SC .COMPLEX October 15, 2021 4:36pm November 10, 2021 5:44pm 180 20 units; 221 25 units; 261 30 units; 300 35 units subcut every 4 hours for high blood sugar; Start: 10-30-2017 End: 02-12-2019 Start: 10-30-2017 End: 02-12-2019 Insulin Lispro (Humalog U-10 0 Insulin) 100 unit/mL cartridge Discontinued 5 U SC EVERY MORNING October 30, 2017 1:00am February 12, 2019 11:48am Start: 11-11-2016 End: 10-30-2017 inject 20 [IU] by subcutaneous injection every six hours Humalog Discontinued 20 UNITS SQ EVERY 6 HOURS November 11, 2016 3:04pm October 30, 2017 1:01pm Start: 11-11-2016 End: 10-30-2017 inject 20 [IU] by subcutaneous injection every six hours Humalog 500 ML Discontinued 20 U SQ EVERY 6 HOURS November 11, 2016 1:00am October 30, 2017 1:01pm Start: 11-11-2016 End: 10-30-2017 inject 20 [IU] by subcutaneous injection every six hours Humalog Discontinued 20 UNITS SQ EVERY 6 HOURS November 11, 2016 12:00am October 30, 2017 12:01pm Start: 11-11-2016 End: 10-30-2017 inject 20 [IU] by subcutaneous injection every six hours Humalog Discontinued 20 UNITS SQ EVERY 6 HOURS November 11, 2016 1:00am October 30, 2017 1:01pm 24 hr isosorbide mononitrate 60 mg extended release oral tablet (20 sources) Nitrate Vasodilator Start: 05-27-2020 End: 01-22-2025 Start: 02-21-2020 End: 05-27-2020 isosorbide monon itrate ER (IMDUR) 30 mg 24 hr tablet Take 60 mg by mouth every morning. Active Comment on above: Take 30 mg by mouth once daily. Take 60 mg by mouth once daily. Take 60 mg by mouth every morning. levothyroxine sodium 0.175 mg oral tablet (20 sources) l-Thyroxine Start: 02-10-2021 levothyroxine 175 mcg (0.175 mg) oral tablet Dose : 175 mcg = 1 tab(s), Oral, qDay, 0 Refill(s) Start Date: 02/10/21 Status: Ordered Start: 10-25-2020 End: 01-03-2025 Start: 10-25-2020 End: 07-08-2024 Start: 02-14-2019 End: 06-21-2019 Start: 02-14-2019 End: 06-21-2019 take 175 ug by mouth once daily Levothyroxine Discontinued 175 MCG PO DAILY February 14, 2019 12:00am June 21, 2019 8:38am Start: 02-12-2019 End: 02-14-2019 Start: 11-11-2016 End: 02-12-2019 Comment on above: Take 1 tablet by christen th once daily. Mon- Sat and two on Sun. Take on empty stomach. For Thyroid. Take 1 tablet by christen th once daily. Mon- Sat and 1.5 tabs on Sun. Take on empty stomach. For Thyroid. Take 1 tablet by christen th once daily. Mon- Sat and none on Sun. Take on empty stomach. For Thyroid. Per endo: Dr. Marques loratadine 10 mg oral tablet (15 sources) Start: 04-06-2023 End: 02-08-2024 losartan potassium 25 mg ora l tablet (20 sources) Angiotensin 2 Receptor Destiney Start: 06-28-2019 End: 02-21-2020 Start: 03-14-2019 End: 06-21-2019 melatonin 3 mg / vitamin b6 10 mg oral tablet (20 sources) Start: 10-25-2020 End: 08-19-2021 Start: 10-25-2020 End: 08-19-2021 Melatonin-Pyridoxine Hcl (B6 ) Discontinued 1 EACH PO AT BEDTIME October 25, 2020 1:00am August 19, 2021 4:39pm meloxicam 7.5 mg oral tablet (20 sources) Nonsteroidal Anti-inflammatory Drug Start: 10-30-2017 End: 03-26-2019 Start: 10-30-2017 End: 03-26-2019 take 2 tablets by mouth once daily Meloxicam 7.5 mg tablet Discontinued 15 mg PO DAILY February 12, 2019 11:45am March 26, 2019 2:52pm Start: 10-30-2017 End: 02-12-2019 take 1 tablet by mouth twice daily Meloxicam 7.5 mg tablet Discontinued 7.5 mg PO TWICE A DAY October 30, 2017 1:00am February 12, 2019 11:50am metroNIDAZOLE 500 mg oral tablet (20 sources) Nitroimidazole Antimicrobial Start: 04-05-2019 End: 06-28-2019 Miconazole Nitrate (20 sources) Azole Antifungal Start: 03-14-2020 End: 05-27-2020 Miconazole Nitrate Discontinued 1 EACH VG AT BEDTIME March 14, 2020 12:23pm May 27, 2020 3:32pm Start: 03-14-2020 End: 05-27-2020 Start: 03-14-2020 End: 05-27-2020 Miconazole Nitrate 1 EACH ki t Discontinued 1 NMA VG AT BEDTIME March 14, 2020 12:00am May 27, 2020 3:32pm Start: 03-14-2020 End: 05-27-2020 Miconazole Nitrate Discontin ued 1 EACH VG AT BEDTIME March 13, 2020 11:00pm May 27, 2020 2:32pm Start: 03-14-2020 End: 05-27-2020 Miconazole Nitrate Discontin ued 1 EACH VG AT BEDTIME March 14, 2020 12:00am May 27, 2020 3:32pm nabumetone 500 mg oral tablet (20 sources) Nonsteroidal Anti-inflammatory Drug Start: 10-30-2017 End: 02-12-2019 naproxen 250 mg oral tablet (5 sources) Nonsteroidal Anti-inflammatory Drug naproxen (NAPROSYN) 250 mg tablet Take 250 mg by mouth as needed. Last dose 11/23/22 0 Active Comment on above: Take 250 mg by mouth as needed. Last dose 11/23/22 nitrofurantoin, macrocrystals 25 mg / nitrofurantoin, monohydrate 75 mg oral capsule (20 sources) Nitrofuran Antibacterial Start: 02-22-2022 End: 02-24-2022 Start: 01-24-2022 End: 01-31-2022 take 1 capsule by mouth twice daily at mealtime nitrofurantoin monohydrate and macrocrystal (MACROBID) 100 mg capsule Indications: Acute cystitis with hematuria Take 1 capsule by mouth twice daily with meals for 7 days. 14 capsule 0 01/24/2022 01/31/2022 Active Comment on above: Take 1 capsule by mo [facility] twice daily with meals for 7 days. Nystatin 100,000 unit/gram powder (4 sources) Start: 03-25-2024 End: 11-29-2024 Nystatin 100,000 unit/gram powder Discontinued 1 NMA TOPICAL THREE TIMES A DAY 60 March 25, 2024 12:00am November 29, 2024 6:40pm must be powder formulation Start: 03-25-2024 Nystatin 100,0 00 unit/gram powder Active 1 NMA TOPICAL THREE TIMES A DAY 60 March 25, 2024 12:00am must be powder formulation ondansetron 4 mg oral tablet (20 sources) Serotonin-3 Receptor Antagonist Start: 02-23-2023 End: 10-25-2023 take 1 tablet by mouth every six hours as needed ondansetron (ZOFRAN) 4 mg tablet Take 1 tablet by mouth every 6 hours as needed. 0 02/23/2023 10/25/2023 Discontinued Start: 04-05-2019 End: 09-09-2019 Comment on above: Take 1 tablet by [facility] every 6 hours as needed. phenazopyridine hydrochlorid e 200 mg oral tablet (20 sources) Start: 03-14-2020 End: 10-01-2020 pravastatin sodium 40 mg ora l tablet (20 sources) HMG-CoA Reductase Inhibitor Start: 11-11-2016 End: 02-12-2019 predniSONE 20 mg oral tablet (20 sources) Start: 02-08-2024 End: 01-01-2025 Start: 02-08-2024 End: 11-27-2024 Start: 02-08-2024 End: 11-27-2024 Start: 02-08-2024 End: 10-23-2024 take 4 tablets by mouth once daily Prednisone 20 mg tablet Discontinued 80 mg PO DAILY February 08, 2024 12:00am October 23, 2024 3:29pm Start: 02-21-2020 End: 05-27-2020 Start: 02-21-2020 End: 05-27-2020 Prednisone 20 mg tablet Disc ontinued 20 mg PO .COMPLEX February 21, 2020 12:12pm May 27, 2020 3:31pm 20 mg PO take 3 tabs at noon and at bedtime day prior to procedure and take 3 tabs the morning of procedure; Start: 03-06-2019 End: 03-14-2019 Start: 03-06-2019 End: 03-14-2019 Prednisone 20 mg tablet Disc ontinued 20 mg PO .COMPLEX March 08, 2019 10:09am March 14, 2019 8:34am 20 mg PO take 3 tabs at noon and bedtime day prior to procedure and 3 tabs the morning of procedure; take 1 tablet by mouth once pred niSONE (DELTASONE) 5 mg tablet Take 1 tablet by mouth once daily. Per Rheum, Dr. Mcdowell Active promethazine hydrochloride 25 mg oral tablet (20 sources) Phenothiazine Start: 11-11-2016 End: 10-30-2017 raNITIdine 150 mg oral tablet (20 sources) Histamine-2 Receptor Antagonist Start: 02-12-2019 End: 06-21-2019 take 1 capsule by mouth twice daily Ranitidine Hcl 150 MG capsule Discontinued 150 mg PO TWICE A DAY 0 February 12, 2019 11:47am June 21, 2019 8:38am Start: 02-12-2019 End: 06-21-2019 take 150 mg by mouth twice daily Ranitidine Hcl Discontinued 150 MG PO TWICE A DAY 0 February 12, 2019 10:47am June 21, 2019 7:38am Start: 10-30-2017 End: 02-12-2019 take 1 capsule by mouth once daily Ranitidine Hcl 150 mg capsule Discontinued 150 mg PO daily October 30, 2017 1:00am February 12, 2019 11:50am Start: 10-30-2017 End: 02-12-2019 take 1 capsule by mouth once daily ranitidine 150 mg capsule Discontinued 150 MG PO daily October 30, 2017 12:00am February 12, 2019 10:50am semaglutide 14 mg oral table t (17 sources) Start: 09-23-2022 End: 09-23-2022 Tirzepatide (Mounjaro) 10 mg/0.5 mL pen injector (11 sources) Start: 09-22-2022 End: 09-23-2022 Tirzepatide (Mounjaro) 10 mg /0.5 mL pen injector Discontinued 10 mg SC EVERY WEEK 2 September 22, 2022 1:00am September 23, 2022 8:31am Start: 09-22-2022 End: 09-23-2022 Tirzepatide (Mounjaro) 10 mg /0.5 mL pen injector Discontinued 10 MG SC EVERY WEEK 2 September 22, 2022 1:00am September 23, 2022 8:31am Start: 09-22-2022 End: 09-23-2022 Tirzepatide (Mounjaro) 10 mg /0.5 mL pen injector Discontinued 10 MG SC EVERY WEEK 2 September 22, 2022 12:00am September 23, 2022 7:31am traMADol hydrochloride 50 mg oral tablet (15 sources) Opioid Agonist Start: 04-26-2023 End: 06-08-2023 triamcinolone acetonide 1 mg /ml topical cream (20 sources) Corticosteroid Start: 10-15-2021 End: 11-29-2024 Problems Active Problems Problem Classification Problem Date Documented Da te Episodic/Chronic Abdominal pain (17 sources) Generalized abdominal pain; Translations: [Generalized abdominal pain] Onset: 9 04-04-2019 Episodic Asthma (20 sources) Asthma; Translations: [Unspecified asthma, uncomplicated] Onset: 1 02-10-2011 Chronic Bacterial infection; unspecified site (1 source) Other specified bacterial agents as the cause of diseases classified elsewhere; Translations: [Bacterial sinusitis] Onset: Episodic Blindness and vision defects (5 sources) Blind right eye; Translations: [Blindness right eye category 4, normal vision left eye] Onset: 4 03-29-2024 Chronic Blindness and vision defects (10 sources) Visual impairment; Translations: [Unqualified visual loss, right eye, normal vision left eye] 02-08-2024 Chronic Cardiac dysrhythmias (13 sources) Palpitations; Translations: [Palpitations] Onset: 5 01-03-2025 Episodic Cataract (2 sources) Cataract; Translations: [Unspecified cataract] Onset: 4 03-28-2024 Chronic Chronic kidney disease (20 sources) Chronic kidney disease stage 3A ; Translations: [Stage 3a chronic kidney disease] Onset: 1 03-19-2021 Chronic Chronic kidney disease (1 source) Chronic kidney disease; Translations: [Stage 3a chronic kidney disease (HCC)] Onset: 2 Chronic obstructive pulmonary disease and bronchiectasis (1 source) Chronic obstructive pulmonary disease, unspecified; Translations: [Chronic obstructive pulmonary disease, unspecified] Onset: 4 Chronic Coagulation and hemorrhagic disorders (12 sources) Petechiae of skin; Translations: [Spontaneous ecchymoses] Onset: 4 05-09-2024 Episodic Complications of surgical procedures or medical care (20 sources) Postoperative hypothyroidism; Translations: [Postprocedural hypothyroidism] Onset: 3 03-14-2014 Chronic Congestive heart failure; nonhypertensive (20 sources) Acute on chronic diastolic heart failure; Translations: [Acute on chronic diastolic (congestive) heart failure] Onset: 3 05-26-2020 Chronic Coronary atherosclerosis and other heart disease (20 sources) Coronary atherosclerosis; Translations: [Atherosclerotic heart disease of [place] coronary artery without angina pectoris] Onset: 9 Chronic Coronary atherosclerosis and other heart disease (20 sources) Stented coronary artery; Translations: [Presence of coronary angioplasty implant and graft] Onset: 9 Episodic Comment on above: Successful PTCA/ALFONSO to distal/apical LAD with a 2.25 x 12 Promus Synergy, followed immediately upstream with a 2.25 x 8 Promus Synergy d/t retrograde plaque shifting; 75%-->0%, no dissection. Pt had identical CP with balloon and stent deployment.Successful PTCA/ALFONSO mid LCX with a 2.5 x 20 Promus Synergy; 75%-->0%, no dissection. Pt had again similar anginal symptoms as she did at home with this lesion as well. Complete revascularization recommended given pt's abnl stress test, dyspnea on exertion, and difficulty evaluating pt due to body habitus per cardiac cath 03/13/19 Successful PTCA/ALFONSO to distal/apical LAD with a 2.25 x 12 Promus Synergy, followed immediately upstream with a 2.25 x 8 Promus Synergy d/t retrograde plaque shifting; 75%-->0%, no dissection. Pt had identical CP with balloon and stent deployment.Successful PTCA/ALFONSO mid LCX with a 2.5 x 20 Promus Synergy; 75%-->0%, no dissection. Pt had again similar anginal symptoms as she did at home with this lesion as well. Complete revascularization recommended given pt's abnl stress test, dyspnea on exertion, and difficulty evaluating pt due to body habitus. Successful PTCA/ALFONSO to distal/apical LAD with a 2.25 x 12 Promus Synergy, followed immediately upstream with a 2.25 x 8 Promus Synergy d/t retrograde plaque shifting; 75%-->0%, no dissection. Pt had identical CP with balloon and stent deployment.Successful PTCA/ALFONSO mid LCX with a 2.5 x 20 Promus Synergy; 75%-->0%, no dissection. Pt had again similar anginal symptoms as she did at home with this lesion as well. Complete revascularization recommended given pt's abnl stress test, dyspnea on exertion, and difficulty evaluating pt due to body habitus. per cath 03/13/19 Deficiency and other anemia (1 source) Anemia; Translations: [Anemia, unspecified] 01-03-2025 Episodic Deficiency and other anemia (20 sources) Iron deficiency anemia; Translations: [Iron deficiency anemia, unspecified] Onset: 5 01-08-2025 Episodic Deficiency and other anemia (2 sources) Iron deficiency anemia, unspecified; Translations: [Iron deficiency anemia, unspecified iron deficiency anemia type] Onset: 5 Episodic Deficiency and other anemia (1 source) Anemia, unspecified; Translations: [Anemia, unspecified type] Onset: 5 Episodic Diabetes mellitus with complications (20 sources) Cataract due to diabetes mellitus type 2; Translations: [Type 2 diabetes mellitus with diabetic cataract] Onset: 6 Chronic Diabetes mellitus without complication (20 sources) Diabetes mellitus; Translations: [Type 2 diabetes mellitus without complications] Onset: 6 Chronic Diabetes mellitus without complication (2 sources) Insulin pump present; Translations: [Presence of insulin pump (external) (internal)] 10-24-2023 Episodic Diabetes mellitus without complication (1 source) Diabetes mellitus without complication; Translations: [Type 2 diabetes mellitus with stage 3a chronic kidney disease, with long-term current use of insulin (HCC)] Onset: 3 Disorders of lipid metabolism (20 sources) Mixed hyperlipidemia; Translations: [Mixed hyperlipidemia] Onset: 5 Chronic Esophageal disorders (20 sources) Gastroesophageal reflux disease; Translations: [Gastro-esophageal reflux disease without esophagitis] Onset: 2 08-07-2012 Chronic Essential hypertension (20 sources) Benign hypertension; Translations: [Essential (primary) hypertension] Onset: 5 Chronic Immunizations and screening for infectious disease (20 sources) Patient encounter status; Translations: [Encounter for immunization] Episodic Nonspecific chest pain (20 sources) Chest pain; Translations: [Chest pain, unspecified] Onset: 7 Resolved: 4 Episodic Nutritional deficiencies (20 sources) Vitamin D deficiency; Translations: [Vitamin D deficiency, unspecified] Onset: 1 Chronic Nutritional deficiencies (11 sources) Cobalamin deficiency; Translations: [Deficiency of other specified B group vitamins] Onset: 5 01-05-2025 Episodic Occlusion or stenosis of precerebral arteries (20 sources) Bilateral stenosis of carotid arteries; Translations: [Occlusion and stenosis of bilateral carotid arteries] Onset: 4 02-14-2024 Chronic Osteoarthritis (20 sources) Bilateral osteoarthritis of knees; Translations: [Bilateral primary osteoarthritis of knee] Onset: 7 02-02-2017 Chronic Osteoporosis (20 sources) Osteoporosis; Translations: [Age-related osteoporosis without current pathological fracture] Onset: 5 Chronic Other connective tissue disease (1 source) Bilateral calf pain; Translations: [Pain in right lower leg] 10-25-2023 Episodic Other diseases of veins and lymphatics (10 sources) Venous stasis; Translations: [Other specified disorders of veins] 05-17-2024 Episodic Other ear and sense organ disorders (2 sources) Disorder of ear; Translations: [Other specified disorders of right ear] 01-31-2025 Episodic Other ear and sense organ disorders (1 source) Other specified disorders of right ear; Translations: [Audible heartbeat in right ear] Onset: 5 Episodic Other eye disorders (2 sources) Bilateral ischemic optic neuropathy of eyes; Translations: [Ischemic optic neuropathy, bilateral] 03-29-2024 Chronic Other eye disorders (2 sources) Ischemic optic neuropathy, bilateral; Translations: [Ischemic optic neuropathy, bilateral] Onset: 5 Chronic Other eye disorders (2 sources) Unspecified papilledema; Translations: [Unspecified papilledema] Onset: 4 Chronic Other gastrointestinal disorders (10 sources) Diarrhea; Translations: [Diarrhea, unspecified] 01-16-2025 Episodic Other gastrointestinal disorders (10 sources) Incontinence of feces; Translations: [Full incontinence of feces] 01-16-2025 Episodic Other gastrointestinal disorders (1 source) Diarrhea, unspecified; Translations: [Diarrhea, unspecified] Onset: 5 Episodic Other gastrointestinal disorders (1 source) Full incontinence of feces; Translations: [Full incontinence of feces] Onset: 5 Episodic Other inflammatory condition of skin (20 sources) Psoriasis; Translations: [Psoriasis, unspecified] Onset: 8 10-23-2017 Chronic Other injuries and conditions due to external causes (20 sources) Injury of hip region; Translations: [Unspecified injury of unspecified hip, initial encounter] 11-30-2020 Episodic Other injuries and conditions due to external causes (10 sources) Open wound; Translations: [Other injury of unspecified body region, initial encounter] 05-17-2024 Episodic Other lower respiratory disease (20 sources) Dyspnea; Translations: [Dyspnea, unspecified] 03-28-2019 Episodic Other lower respiratory disease (1 source) Wheezing; Translations: [Wheezing] Episodic Other lower respiratory disease (1 source) Wheezing; Translations: [Wheezing] Onset: 3 Episodic Other lower respiratory disease (20 sources) Dyspnea on exertion; Translations: [Other forms of dyspnea] 10-25-2023 Episodic Other lower respiratory disease (4 sources) Other forms of dyspnea; Translations: [Other respiratory abnormalities] Onset: 5 10-25-2023 Episodic Other lower respiratory disease (1 source) Orthopnea; Translations: [Orthopnea] 11-29-2024 Episodic Other lower respiratory disease (20 sources) Hypoxia; Translations: [Hypoxemia] 11-27-2024 Episodic Other lower respiratory disease (1 source) Shortness of breath; Translations: [SOB (shortness of breath)] Onset: 5 Episodic Other lower respiratory disease (1 source) Orthopnea; Translations: [Orthopnea] Onset: 5 Episodic Other lower respiratory disease (1 source) Dyspnea, unspecified; Translations: [Dyspnea, unspecified] Onset: 5 Episodic Other lower respiratory disease (1 source) Hypoxemia; Translations: [Hypoxemia] Onset: 5 Episodic Other nervous system disorders (1 source) Other acute postprocedural pain; Translations: [Other acute postoperative pain] Onset: 3 Episodic Other nervous system disorders (1 source) Burning sensation; Translations: [Other disturbances of skin sensation] 01-31-2025 Episodic Other nervous system disorders (2 sources) Other disturbances of skin sensation; Translations: [Burning sensation of lower extremity] Onset: 5 Episodic Other non-traumatic joint disorders (2 sources) Joint pain; Translations: [Pain in other joint] Episodic Other nutritional; endocrine; and metabolic disorders (20 sources) Obesity; Translations: [Obesity, unspecified] 02-25-2020 Chronic Other nutritional; endocrine; and metabolic disorders (20 sources) Obesity, unspecified; Translations: [Obesity, unspecified] Chronic Other nutritional; endocrine; and metabolic disorders (20 sources) Morbid obesity; Translations: [Morbid (severe) obesity due to excess calories] Onset: 5 06-30-2015 Chronic Other nutritional; endocrine; and metabolic disorders (20 sources) Body mass index 40+ - severely obese; Translations: [Morbid (severe) obesity due to excess calories] Onset: 3 02-23-2023 Chronic Other nutritional; endocrine; and metabolic disorders (3 sources) Morbid (severe) obesity due to excess calories; Translations: [Morbid obesity due to excess calories (HCC)] Onset: 2 Chronic Other nutritional; endocrine; and metabolic disorders (1 source) Body mass index (BMI) 45.0-49.9, adult; Translations: [Body mass index [BMI] 45.0-49.9, adult] Onset: 5 Chronic Other nutritional; endocrine; and metabolic disorders (9 sources) H/O: diabetes mellitus; Translations: [Personal history of other endocrine, nutritional and metabolic disease] 11-29-2024 Episodic Other screening for suspected conditions (not mental disorders or infectious disease) (3 sources) Encounter for screening for malignant neoplasm of intestinal tract, unspecified; Translations: [Special screening for malignant neoplasms for intestine, unspecified] Episodic Other upper respiratory disease (20 sources) Allergic rhinitis; Translations: [Allergic rhinitis, unspecified] Onset: 1 02-10-2011 Chronic Other upper respiratory disease (2 sources) Allergic rhinitis due to pollen; Translations: [Allergic rhinitis due to pollen] Chronic Other upper respiratory infections (2 sources) Bacterial sinusitis; Translations: [Chronic sinusitis, unspecified] Onset: 5 01-31-2025 Chronic Pulmonary heart disease (20 sources) Pulmonary embolism; Translations: [Other pulmonary embolism without acute cor pulmonale] Onset: 5 11-29-2024 Episodic Residual codes; unclassified (20 sources) Obstructive sleep apnea syndrome; Translations: [Obstructive sleep apnea (adult) (pediatric)] Onset: 0 03-19-2021 Chronic Residual codes; unclassified (7 sources) Obstructive sleep apnea (adult) (pediatric); Translations: [Obstructive sleep apnea (adult)(pediatric)] Onset: 2 Chronic Residual codes; unclassified (1 source) Swelling - edema - symptom; Translations: [Edema, unspecified] Episodic Residual codes; unclassified (5 sources) Edema, unspecified; Translations: [Edema] Episodic Residual codes; unclassified (20 sources) Edema; Translations: [Edema, unspecified] 08-19-2021 Episodic Residual codes; unclassified (5 sources) Active living will ; Translations: [Personal history of other specified conditions] Onset: 2 Episodic Residual codes; unclassified (2 sources) Pain; Translations: [Pain, unspecified] Episodic Residual codes; unclassified (1 source) Bilateral lower limb edema; Translations: [Localized edema] 10-25-2023 Episodic Spondylosis; intervertebral disc disorders; other back problems (20 sources) Degeneration of lumbar intervertebral disc; Translations: [Other intervertebral disc degeneration, lumbar region] Onset: 1 03-19-2021 Chronic Systemic lupus erythematosus and connective tissue disorders (20 sources) Temporal arteritis; Translations: [Other giant cell arteritis] Onset: 5 10-23-2024 Chronic Thyroid disorders (20 sources) Acquired hypothyroidism; Translations: [Hypothyroidism, unspecified] Onset: 4 Chronic Unclassified (20 sources) Active living will ; Translations: [Living will on file] Onset: 2 04-06-2022 Unclassified (1 source) Pain in other specified joint; Translations: [Pain in other specified joint] Onset: 3 Unclassified (1 source) Pain in other joint; Translations: [Pain in other joint] Onset: 3 Unclassified (1 source) Multiple subsegmental pulmonary emboli without acute cor pulmonale; Translations: [Multiple subsegmental pulmonary emboli without acute cor pulmonale (HCC)] Onset: 5 Urinary tract infections (7 sources) Acute cystitis; Translations: [Acute cystitis with hematuria] Episodic Past or Other Problems Problem Classification Problem Date Documented Date Episodic/Chronic Administrative/social admission (20 sources) Advance directive discussed with patient; Translations: [Other specified counseling] Onset: 04-06-2022 Episodic Fluid and electrolyte disorders (20 sources) Hypokalemia; Translations: [Hypokalemia] Onset: 02-02-2017 Resolved: 05-25-2017 Episodic Genitourinary symptoms and ill-defined conditions (2 sources) Urinary symptoms ; Translations: [Unspecified symptoms and signs involving the genitourinary system] Onset: 07-08-2024 Episodic Mycoses (20 sources) Tinea corporis; Translations: [Tinea corporis] Onset: 12-24-2019 12-24-2019 Episodic Other acquired deformities (20 sources) Lumbar spondylolisthesis; Translations: [Spondylolisthesis, lumbar region] Onset: 02-23-2023 02-23-2023 Episodic Other aftercare (2 sources) 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; Translations: [Type 2 diabetes mellitus with stage 3a chronic kidney disease, with long-term current use of insulin (HCC)] Onset: 10-24-2022 Episodic Other aftercare (1 source) 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; Translations: [Medication management] Onset: 05-28-2024 Episodic Other nervous system disorders (6 sources) Chapman's palsy; 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] Onset: 10-31-2016 10-31-2016 Episodic Other nervous system disorders (20 sources) H/O: Chapman's palsy; Translations: [Personal history of other diseases of the nervous system and sense organs] Onset: 10-31-2016 04-06-2022 Episodic Other skin disorders (1 source) Rash and other nonspecific skin eruption; Translations: [Rash and other nonspecific skin eruption] Onset: 05-29-2024 Episodic Residual codes; unclassified (1 source) Pain, unspecified; Translations: [Pain, unspecified] Onset: 11-07-2022 Episodic Screening and history of mental health and substance abuse codes (2 sources) Encounter for screening for depression; Translations: [Encounter for screening examination for other mental health and behavioral disorders] Onset: 05-31-2024 Episodic Spondylosis; intervertebral disc disorders; other back problems (20 sources) Lumbar radiculopathy; Translations: [Radiculopathy, lumbar region] Onset: 04-28-2020 04-28-2020 Episodic Viral infection (20 sources) Postherpetic neuralgia; Translations: [Other postherpetic nervous system involvement] Onset: 03-14-2014 08-30-2021 Episodic Results Test Name Value Interpretation Reference Range Facility [facility] 01-31-2025 CNOV Office Visit (FAMPWS ) DERRELL GERMAN ([id number]) 1955 F Date Time Provider Department 01/31/25 10:40 AM WILLARD HENRIQUEZ During your visit today, we recorded the following information about you: Pulse Respiration Blood pressure Weight 68/minute 20/minute 133/71 140.2 kg Willard Henriquez MD 01/31/2025 12:51 PM Signed Chief Complaint Patient presents with: Follow Up HPI Derrell German is a 69 year old female who presents here today for 4 week follow up. ECHO completed 01/29/2025, turning in 25 holter monitor tomorrow. She is doing another breathing test on 02/11/2025. Dr. Marques is also having her switch from Trucility to Mounjaro 10 mg. She will hopefully be starting that medication tomorrow. Patient indicated that she is currently off of the iron from Dr. Portillo's office she is waiting for a call back if she can resume. They have her off of due the fact it can increase inflammation and with the Temporal arteritis not sure if contraindicated. . Patient did indicated that she had a positive occult test. Waiting to find what she should do next. Patient was also seen in [place] ER on 11/29/2024 for chest pain and shortness of breath. Was found to have pulmonary emboli: patient on Eliquis twice a day. Had seen Pulm in f/u. Was seen for f/u with us on 01/03/2025 Hospital visit 12/17/2024: Patient recently seen cardio and is set up to get a Echo and halter monitor. If all negative they will get a stress and then possible Cath Recent labs below. Patient continues to have the chest pains and shortness of breath. Her prednisone is at 5 mg a day for the giant cell arteritis. Past medical history, appointments, medications, allergies reviewed. Previous Medical History PAST MEDICAL HISTORY Diagnosis Date Advance directive discussed with patient 04/06/2022 Discussed 04/2022 Allergic rhinitis 02/10/2011 ASHD (arteriosclerotic heart disease) 03/08/[address] Hudson Asthma ([facility]) Dr. 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 History of left heart catheterization HEART CATH X2 STENTS X 3 NASH GARCIA Hyperlipidemia, mixed 06/30/2015 DR HUDSON, Hypertension, essential 06/30/2015 NASH GARCIA CARD- controlled with medication Iron deficiency anemia 01/06/2025 Joint pain PAIN MANAGMENT WILLARD CRUZ MELISSA Living will on file 04/06/2022 DPA: Ever () Lumbar radiculopathy 04/28/2020 R L4 radiculopathy 04/2020 Medicare annual wellness visit, initial 04/06/2022 Medicare part B: 11/03/2019 Last done: 04/06/2022 Medicare annual wellness visit, subsequent 04/24/2023 Mild intermittent asthma without complication ([facility]) 02/10/2011 DENIES PROBLEMS, DENIES INHALERS Morbid obesity ([facility]) 01/10/2012 NATALIE (obstructive sleep apnea) 09/10/2019 On BiPAP and sees VENTURA Schaffer Osteoarthritis of both knees 02/02/2017 Other intervertebral disc displacement, lumbosacral region 02/23/2023 PONV (postoperative nausea and vomiting) Postherpetic neuralgia 03/14/2014 Right mid-trunk area. 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 Psoriasis 10/23/2017 Rash bilateral forearms Rosacea 04/19/2013 Shingles 2014 Spinal stenosis of lumbar region without neurogenic claudication 03/19/2021 DR SANDOVAL FOLLOWING Spondylolisthesis of lumbar region 02/23/2023 Stage 3a chronic kidney disease ([facility]) 03/19/2021 GERALD CALHOUN AND WILLARD HARRINGTON Temporal arteritis ([facility]) 12/08/2024 Seeing Rheum: Dr. Mcdowell on prednisone Uncontrolled type 2 diabetes mellitus with hyperglycemia ([facility]) 12/24/2019 Seeing GERALD Marte Uses roller walker Vitamin B12 deficiency 01/05/2025 Vitamin D deficiency 03/19/2021 Wears glasses reading Previous Surgical History PAST SURGICAL HISTORY Procedure Laterality Date ANESTH, HYSTERECTOMY 2000 ANESTHESIA NOSE AND ACCESSORY SINUSES NOS 1995 CHOLECYSTECTOMY 1989 COLONOSCOPY FLX DX W/COLLJ SPEC WHEN PFRMD 04/18/2011 X3 HEART CATHETERIZATION 2002 HEART CATH X2 2002 AND 2019 STENTS X3 2019 PAST SURGICAL HISTORY OF L. knee PAST SURGICAL HISTORY OF kidney stones PAST SURGICAL HISTORY OF Right 2007 Knee PAST SURGICAL HISTORY OF NERVE STIMULATOR AND REMOVAL TOLLEY ORTH REMV CATARACT EXTRACAP,INSERT LENS Bilateral Rt 08/2019, Lt 11/2019 STRESS TEST ADENOSINE 05/11/2013 THYROIDECTOMY TOTAL/COMPLETE 2000 TONSILLECTOMY HX 1963 Family History FAMILY HISTORY Problem Relation Age of Onset Meera (more content not included)... Normal [facility] Echocardiogram study reportO rdered By: Dong Alegria on 01-29-2025 Study report [facility] Work Phone: Echo Complete W/ Contraston 01-28-2025 Echo Complete W/ Contrast Normal [facility] ANCAon 01-21-2025 Atypical pANCA <1:20 Normal Neg:<1:20 [facility] Comment on above: Result Comment: The atypical pANCA pattern has been observed in asignificant percentage of patients with ulcerative colitis,primary sclerosing cholangitis and autoimmune hepatitis.Performed at: [facility] [id number] Director: Sami Moulton PhD, Phone: [phone] at: [facility] [employer] [id number] Director: Reymundo Burgos MD, Phone: [phone] Performed By: #### L 500.3400, L3410.2400, L3100.5440, L3200.1100, L3300.1200 ####[facility] [address] [place], [place], [id number] Cytoplasmic Ab <1:20 Normal Neg:<1:20 [facility] Comment on above: Performed By: #### L 500.3400, L3410.2400, L3100.5440, L3200.1100, L3300.1200 ####[facility] [address] [place], [place], [id number] Perinuclear Ab. <1:20 Normal Neg:<1:20 [facility] Comment on above: Result Comment: The presence of positive fluorescence exhibiting P-ANCA orC-ANCA patterns alone is not specific for the diagnosis ofWegener's Granulomatosis (WG) or microscopic polyangiitis.Decisions about treatment should not be based solely onANCA IFA results. The International ANCA Group Consensusrecommends follow up testing of positive sera with both OR-3 and MPO-ANCA enzyme immunoassays. As many as 5% serumsamples are positive only by EIA. Ref. AM J Clin [id number];111:507-513. Performed By: #### L 500.3400, L3410.2400, L3100.5440, L3200.1100, L3300.1200 ####[facility] [address] [place], [place], [id number] Calprotectin, Stoolon [address] 130 ug/g Abnormal 0-120 [facility] Comment on above: Result Comment: Conc entration Interpretation Follow-Up< 5 - 50 ug/g Normal None>50 -120 ug/g Borderline Re-evaluate in 4-6 weeks >120 ug/g Abnormal Repeat as clinically indicatedPerformed at: - [facility] [id number] Director: Reymundo Burgos MD, Phone: [phone] Performed By: #### L 7000.0700, L7000.0750, M100.3515 ####[facility] [address] [place], [address] Celiac Disease Profileon ENDOMYSIAL IGA Negative Normal Negative [facility] Comment on above: Performed By: #### L 500.3400, L3410.2400, L3100.5440, L3200.1100, L3300.1200 ####[facility] [address] [place], [place], [id number] tTG IGA <2 Normal 0-3 [facility] Comment on above: Result Comment: Nega tive 0 - 3 Weak Positive 4 - 10 Positive >10 Tissue Transglutaminase (tTG) has been identified as the endomysial antigen. Studies have demonstr- ated that endomysial IgA antibodies have over 99% specificity for gluten sensitive enteropathy. Performed By: #### L 500.3400, L3410.2400, L3100.5440, L3200.1100, L3300.1200 ####[facility] [address] [place], [address] Immunoglobulins G/A/M/Gulshan IMMUNOGLOB A QN 134 mg/dL Normal 87-352 [facility] Comment on above: Order Comment: N Performed By: #### L 500.3400, L3410.2400, L3100.5440, L3200.1100, L3300.1200 ####[facility] [address] [place], [address] IMMUNOGLOB E QN 107 IU/mL Normal 6-495 [facility] Comment on above: Order Comment: N Performed By: #### L 500.3400, L3410.2400, L3100.5440, L3200.1100, L3300.1200 ####[facility] [address] [place], [address] IMMUNOGLOB G QN 452 mg/dL Low 586-1602 [facility] Comment on above: Order Comment: N Performed By: #### L 500.3400, L3410.2400, L3100.5440, L3200.1100, L3300.1200 ####[facility] [address] [place], [address] IMMUNOGLOB M QN 68 mg/dL Normal 26-217 [facility] Comment on above: Order Comment: N Performed By: #### L 500.3400, L3410.2400, L3100.5440, L3200.1100, L3300.1200 ####[facility] [address] [place], [address] L7000.0750on 01-21-2025 P ELASTASE,FECA 459 Normal >200 [facility] Comment on above: Result Comment: Resu lt Units: ug Elast./g Severe Pancreatic Insufficiency: <100 Moderate Pancreatic Insufficiency: 100 - 200 Normal: >200Performed at: [facility] [id number] Director: Reymundo Burgos MD, Phone: [phone] Performed By: #### L 7000.0700, L7000.0750, M100.7900 ####[facility] [address] [place], [address] ALAN Comprehensive Panelon ANTI-DNA (DS)AB <1 Normal 0-9 [facility] Comment on above: Result Comment: Nega tive <5 Equivocal 5 - 9 Positive >9 Performed By: #### L 500.3400, L3410.2400, L3100.5440, L3200.1100, L3300.1200 ####[facility] [address] [place], [address] ANTI-SS-A < 0.2 Normal 0.0-0.9 [facility] [facility] Comment on above: Performed By: #### L 500.3400, L3410.2400, L3100.5440, L3200.1100, L3300.1200 ####[facility] [address] [place], [address] ANTI-SS-B < 0.2 Normal 0.0-0.9 [facility] Comment on above: Performed By: #### L 500.3400, L3410.2400, L3100.5440, L3200.1100, L3300.1200 ####[facility] [address] [place], [address] Endocrinology Visit Reporton 01-20-2025 Endocrinology Visit Report Normal [facility] Calprotectin stoolOrdered By : Shelli Petit on 01-17-2025 Calprotectin stool 130 ug/g High 0-120 [facility] Stool Occult Blood iFOBon STOB Positive Normal [facility] Comment on above: Performed By: #### L 7000.0700, L7000.0750, M100.7900 ####[facility] [address] [place], [address] Stool gastrointestinal hemog lobin detection by immunologic methodOrdered By: Shelli Petit on 01-17-2025 Lower GI hemoglobin IA Ql (Stl) Positive Abnormal [facility] Stool pancreatic elastase me asurement (mass/mass)Ordered By: Shelli Petit on 01-17-2025 Elastase.pancreatic (Stl) [Mass/Mass] 459 >200 [facility] Bilirubin directOrdered By: Shelli Petit on 01-16-2025 Bilirubin.direct [Mass/Vol] 0.36 mg/dL High 0.00-0.30 [facility] Bilirubin, totalOrdered By: Shelli Petit on 01-16-2025 Bilirubin [Mass/Vol] 0.67 mg/dL 0.00-1.30 [facility] Gastroenterology Visit Repor ton 01-16-2025 Gastroenterology Visit Report Normal [facility] IgEOrdered By: Shelli Petit on 01-16-2025 IgE 107 IU/mL 6-495 [facility] Liver Profileon 01-16-2025 Albumin [Mass/Vol] 3.9 g/dL Normal 3.4-4.8 [facility] Comment on above: Performed By: #### L 500.3400, L3410.2400, L3100.5440, L3200.1100, L3300.1200 ####[facility] [address] [place], [address] ALK PHOS 66 U/L Normal 35-104 [facility] Comment on above: Performed By: #### L 500.3400, L3410.2400, L3100.5440, L3200.1100, L3300.1200 ####[facility] [address] [place], [address] ALT [Catalytic activity/Vol] 21 U/L Normal <=34 [facility] Comment on above: Performed By: #### L 500.3400, L3410.2400, L3100.5440, L3200.1100, L3300.1200 ####[facility] [address] [place], [address] AST [Catalytic activity/Vol] 39 U/L High <=31 [facility] Comment on above: Performed By: #### L 500.3400, L3410.2400, L3100.5440, L3200.1100, L3300.1200 ####[facility] [address] [place], [address] Bilirubin [Mass/Vol] 0.67 mg/dL Normal 0.00-1.30 [facility] Comment on above: Performed By: #### L 500.3400, L3410.2400, L3100.5440, L3200.1100, L3300.1200 ####[facility] [address] [place], [address] Bilirubin.direct [Mass/Vol] 0.36 mg/dL High 0.00-0.30 [facility] Comment on above: Performed By: #### L 500.3400, L3410.2400, L3100.5440, L3200.1100, L3300.1200 ####[facility] [address] [place], [address] Globulin (S) [Mass/Vol] 2.1 g/dL Low 2.2-4.[address] [facility] Comment on above: Performed By: #### L 500.3400, L3410.2400, L3100.5440, L3200.1100, L3300.1200 ####[facility] [address] [place], [address] T PROT 6.0 g/dL Normal 5.9-8.4 [facility] Comment on above: Performed By: #### L 500.3400, L3410.2400, L3100.5440, L3200.1100, L3300.1200 ####[facility] [address] [place], [address] No Panel InformationOrdered By: Shelli Petit on 01-16-2025 39 U/L High <32 [facility] Serum DNA double strand anti body assay (units/volume)Ordered By: Shelli Petit on 01-16-2025 DNA double strand Ab Qn (S) [IU]/mL 0-9 [facility] Serum Scl-70 antibody assay (units/volume)Ordered By: Shelli Petit on 01-16-2025 SCL-70 extractable nuclear Ab Qn (S) TNP [facility] SCL-70 extractable nuclear Ab Qn (S) <0.2 AI 0.0-0.9 [facility] Serum classic neutrophil cyt oplasmic antibody assay (units/volume)Ordered By: Shelli Petit on 01-16-2025 Neutrophil cytoplasmic Ab.classic Qn (S) <1:20 titer Neg:<1:20 [facility] Serum globulin measurementOr dered By: Shelli Petit on 01-16-2025 Globulin (S) [Mass/Vol] 2.1 g/dL Low 2.2-4.2 [facility] Serum or plasma IgA measurem ent (mass/volume)Ordered By: Shelli Petit on 01-16-2025 IgA [Mass/Vol] 134 mg/dL 87-352 [facility] Serum or plasma IgG measurem ent (mass/volume)Ordered By: Shelli Petit on 01-16-2025 IgG [Mass/Vol] 452 mg/dL Low 586-1602 [facility] Serum or plasma alanine schrader otransferase (ALT) measurementOrdered By: Shelli Petit on 01-16-2025 ALT [Catalytic activity/Vol] 21 U/L <35 [facility] Serum or plasma albumin christi urement (mass/volume)Ordered By: Shelli Petit on 01-16-2025 Albumin [Mass/Vol] 3.9 g/dL 3.4-4.8 [facility] Serum or plasma alkaline darlin sphatase measurementOrdered By: Shelli Petit on 01-16-2025 ALP [Catalytic activity/Vol] 66 U/L 35-104 [facility] Serum perinuclear neutrophil cytoplasmic antibody titer by immunofluorescenceOrdered By: Shelli Petit on 01-16-2025 Neutrophil cytoplasmic Ab.perinuclear IF (S) [Titer] <1:20 titer Neg:<1:20 [facility] Serum tissue transglutaminas e (tTG) IgA antibody assay (units/volume)Ordered By: Shelli Petit on 01-16-2025 tTG IgA Qn (S) <2 U/mL 0-3 [facility] Total proteinOrdered By: Kerline Petit on 01-16-2025 Protein [Mass/Vol] 6.0 g/dL 5.9-8.4 [facility] HVF 24-2 FAST - OUon 025 HVF 24-2 FAST - OU Table formatting fro m the original result was not included. HVF OD Reliability Fovea MD PSD Interp 01/10/2025 Low; 01/14 FL' 28% FN 8 -6.87 8.36 Temporal paracentral defect on Pattern w/ nasal depression on Total and Pattern. Improved. 03/28/2024 Low; 3/ FL Off N/a N/a Stim-V: central and temporal cecocentral dense defect. Mild nasal scotoma. EBS. HVF OS Reliability Fovea MD PSD Interp 01/10/2025 Low; 03/13 FL 38 2.97 1.45 Normal field; stable. 03/28/2024 Low; 02/12 36 -1.59 2.13 Inferior small defects on Total and Pattern. Normal [facility] OCT OPTIC NERVE OUon 025 OCT OPTIC NERVE OU Table formatting fro m the original result was not included. RNFL OD OS Interp 01/10/2025 54 77 OD: S, I thinning; borderline N thinning; progressed. OS: no localized NFL loss; small C/D 03/28/2024 77 88 OD: S thinning OS: no localized NFL loss; small C/D GCC OD OS Interp 01/10/2025 48 74 OD: diffuse GCC loss; no localized OS: borderline S, ST thinning; stable 03/28/2024 57 80 OD: diffuse GCC loss OS: no localized GCC loss Normal [facility] Ophthalmic OCT panelon 01-10 Table formatting fro m the original result was not included. RNFL OD OS Interp 01/10/2025 54 77 OD: S, I thinning; borderline N thinning; progressed. OS: no localized NFL loss; small C/D 03/28/2024 77 88 OD: S thinning OS: no localized NFL loss; small C/D GCC OD OS Interp 01/10/2025 48 74 OD: diffuse GCC loss; no localized OS: borderline S, ST thinning; stable 03/28/2024 57 80 OD: diffuse GCC loss OS: no localized GCC loss RADIOLOGY [facility] Radiology Study observation (narrative) [facility] Perimetry studyon 01-10-2025 Table formatting fro m the original result was not included. HVF OD Reliability Fovea MD PSD Interp 01/10/2025 Low; 01/14 FL' 28% FN 8 -6.87 8.36 Temporal paracentral defect on Pattern w/ nasal depression on Total and Pattern. Improved. 03/28/2024 Low; 3/ FL Off N/a N/a Stim-V: central and temporal cecocentral dense defect. Mild nasal scotoma. EBS. HVF OS Reliability Fovea MD PSD Interp 01/10/2025 Low; 03/13 FL 38 2.97 1.45 Normal field; stable. 03/28/2024 Low; 02/12 36 -1.59 2.13 Inferior small defects on Total and Pattern. RADIOLOGY [facility]) [facility] Pulmonary Visit Report Normal [facility] CNOVon 01-03-2025 CNOV Office Visit (FAMPWS ) RAKESHDERRELL YOUNG ([id number]) 1955 F Date Time Provider Department 01/03/25 11:20 AM WILLARD HENRIQUEZ During your visit today, we recorded the following information about you: Pulse Respiration Blood pressure Weight 91/minute 20/minute 118/70 139.3 kg Willard Henriquez MD 01/03/2025 12:42 PM Signed Chief Complaint Patient presents with: Hospital F/U [facility] Derrell Pierce German is a 69 year old female who presents here today for Hospital Discharge Follow up.. Patient was also seen in [place] ER on 11/29/2024 for chest pain and shortness of breath. Was found to have pulmonary emboli: patient on Eliquis twice a day. Had sen Pulm in f/u. Hospital visit 12/17/2024: Patient recently seen cardio and is set up to get a Echo and halter monitor. If all negative they will get a stress and then possible Cath Recent labs below. Patient continues to ave the chest pains and shortness of breath. Her prednisone is at 5 mg a day for the giant cell arteritis. Past medical history, appointments, medications, allergies reviewed. Previous Medical History PAST MEDICAL HISTORY Diagnosis Date Advance directive discussed with patient 04/06/2022 Discussed 04/2022 Allergic rhinitis 02/10/2011 ASHD (arteriosclerotic heart disease) 03/08/[address] Hudson Asthma ([facility]) Dr. 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 History of left heart catheterization HEART CATH X2 STENTS X 3 NASH GARCIA Hyperlipidemia, mixed 06/30/2015 DR HUDSON, Hypertension, essential 06/30/2015 NASH GARCIA CARD- controlled with medication Joint pain PAIN MANAGMENT WILLARD CRUZ TOLLEY Living will on file 04/06/2022 DPA: Ever () Lumbar radiculopathy 04/28/2020 R L4 radiculopathy 04/2020 Medicare annual wellness visit, initial 04/06/2022 Medicare part B: 11/03/2019 Last done: 04/06/2022 Medicare annual wellness visit, subsequent 04/24/2023 Mild intermittent asthma without complication (HCC) 02/10/2011 DENIES PROBLEMS, DENIES INHALERS Morbid obesity (HCC) 01/10/2012 NATALIE (obstructive sleep apnea) 09/10/2019 On BiPAP and sees VENTURA Schaffer Osteoarthritis of both knees 02/02/2017 Other intervertebral disc displacement, lumbosacral region 02/23/2023 PONV (postoperative nausea and vomiting) Postherpetic neuralgia 03/14/2014 Right mid-trunk area. 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 Psoriasis 10/23/2017 Rash bilateral forearms Rosacea 04/19/2013 Shingles 2014 Spinal stenosis of lumbar region without neurogenic claudication 03/19/2021 DR SANDOVAL FOLLOWING Spondylolisthesis of lumbar region 02/23/2023 Stage 3a chronic kidney disease (HCC) 03/19/2021 GERALD CALHOUN AND WILLARD HARRINGTON Temporal arteritis ([facility]) 12/08/2024 Seeing Rheum: Dr. Mcdowell on prednisone Uncontrolled type 2 diabetes mellitus with hyperglycemia ([facility]) 12/24/2019 Seeing GERALD Marte Uses roller walker Vitamin D deficiency 03/19/2021 Wears glasses reading Previous Surgical History PAST SURGICAL HISTORY Procedure Laterality Date ANESTH, HYSTERECTOMY 2000 ANESTHESIA NOSE AND ACCESSORY SINUSES NOS 1995 CHOLECYSTECTOMY 1989 COLONOSCOPY FLX DX W/COLLJ SPEC WHEN PFRMD 04/18/2011 X3 HEART CATHETERIZATION 2002 HEART CATH X2 2001 AND 2019 STENTS X3 2019 PAST SURGICAL HISTORY OF L. knee PAST SURGICAL HISTORY OF kidney stones PAST SURGICAL HISTORY OF Right 2007 Knee PAST SURGICAL HISTORY OF NERVE STIMULATOR AND REMOVAL MELISSA ORTH REMV CATARACT EXTRACAP,INSERT LENS Bilateral Rt 08/2019, Lt 11/2019 STRESS TEST ADENOSINE 05/11/2013 THYROIDECTOMY TOTAL/COMPLETE 2000 TONSILLECTOMY HX 1963 Family History FAMILY HISTORY Problem Relation Age of Onset Diabetes Mother Thyroid Mother Diabetes Father Diabetes Paternal Aunt Patient Allergies ALLERGIES Allergen Reactions Amlodipine Swelling Diflucan [Fluconazo* Hives Diphth,Pertus(Acell* Hives Actos [Pioglitazone* Other: See Comments Edema BLE AND OLGA HANDS Bactrim [Sulfametho* Hives HIVES Betadine [Povidone-* Anaphylaxis SEVERE ALLERGY TO IODINE AND BETADINE Fish Anaphylaxis ALL FISH Iodine Anaphylaxis IV contrast Lipitor [Atorvastat* Rash, Itching Metformin Diarrhea, GI Upset [place] Anaphylaxis Penicillins Unknown NOT SURE A CHILD Sulfa (Sulfonamide * Swelling SWELLING AND HIVES Current Medications Current Outpatient Medications on File Prior to Visit (more content not included)... Normal [facility] Ferritin SerPl-mCncon 05-02- 2025 Ferritin [Mass/Vol] 26.6 ng/mL Normal 14.7-205.1 [facility] Comment on above: Order Comment: Speci men Type: BLOOD SPECIMENOrdering Facility: [facility] Address: [address] [place] [address] Performed By: #### 5 0190-8, 2275-4, 9, 8 ####[facility] LABIA [id number] [place] [address] [place] Folate SerPl-ncon 01-04-20 25 Folate [Mass/Vol] 6.0 ng/mL Normal >4.7 [facility] Comment on above: Order Comment: Speci men Type: BLOOD SPECIMENOrdering Facility: [facility] Address: [address] [place] [address] Performed By: #### 5 0190-8, 2275-12, 2132-05, 2284-04 ####[facility] LABIA [id number] [place] [address] [place] Iron and Iron binding capaci panel 01-03-2025 Iron [Mass/Vol] 49 ug/dL Normal 41-186 [facility] Comment on above: Order Comment: Speci men Type: BLOOD SPECIMENOrdering Facility: [facility] Address: [address] [place] [address] Performed By: #### 5 0190-8, 2275-12, 2132-05, 2284-04 ####[facility] LABIA [id number] [place] [address] [place] Iron binding capacity [Mass/Vol] 404 ug/dL High 232-386 [facility] Comment on above: Order Comment: Speci men Type: BLOOD SPECIMENOrdering Facility: [facility] Address: [address] [place] [address] Performed By: #### 5 0190-8, 2275-12, 2132-05, 2284-04 ####[facility] LABCLIA [id number] [address] [address] [place] Iron/TIBC [Molar ratio] 12.1 % Low 15.0-57.[address] [facility] Comment on above: Order Comment: Speci men Type: BLOOD SPECIMENOrdering Facility: [facility] Address: [address] [place], [place] [address] Performed By: #### 5 0190-8, 2275-4, 9, 2284-04 ####[facility] LABCLIA [id number] [address] [address] [place] Vit B12 [facility] 025 Cobalamin (Vitamin B12) [Mass/Vol] 271 pg/mL Normal 232-1245 [facility] Comment on above: Order Comment: Speci men Type: BLOOD SPECIMENOrdering Facility: [facility] Address: [address] [place], [place] [address] Performed By: #### 5 0190-8, 2275-12, 2132-05, 2284-04 ####[facility] LABCLIA [id number] [place] [id number] [place] Absolute lymphocyte countOrd ered By: Robert Cheng on 01-01-2025 Lymphocytes Auto (Unsp spec) [#/Vol] 0.92 10*3/uL 0.83-4.51 [facility] Anion gap in Serum or Plasma Ordered By: Robert Cheng on 01-01-2025 Anion gap [Moles/Vol] 17 mmol/L High 5-15 [facility] Automated lymphocyte count a s percentage of total leukocytesOrdered By: Robert Cheng on 01-01-2025 Lymphocytes/100 WBC Auto (Unsp spec) 9.9 % Low 19-41 [facility] BUN/creatinine ratioOrdered By: Robert Cheng on 01-01-2025 Urea nitrogen/Creatinine [Mass ratio] 6.5 mg/mg Low 10-20 [facility] Basic Metabolic Profile (BMP )on 01-01-2025 BUN/CRE 6.5 RATIO Low 10-20 [facility] Comment on above: Order Comment: PT RE FUSED TO LET ME CHECK HANDS OR AC. PT WOULD ONLY LET MEDRAW FROM RIGHT WRIST-SWRIGHT Performed By: #### L 503.7505, L100.0100, L500.2500 ####[facility] [address] [place], [address] Calcium [Mass/Vol] 9.5 mg/dL Normal 7.6-11.0 [facility] Comment on above: Order Comment: PT RE FUSED TO LET ME CHECK HANDS OR AC. PT WOULD ONLY LET MEDRAW FROM RIGHT WRIST-SWRIGHT Performed By: #### L 503.7505, L100.0100, L500.2500 ####[facility] [address] [place], [address] Chloride [Moles/Vol] 99 mmol/L Normal 98-108 [facility] Comment on above: Order Comment: PT RE FUSED TO LET ME CHECK HANDS OR AC. PT WOULD ONLY LET MEDRAW FROM RIGHT WRIST-SWRIGHT Performed By: #### L 503.7505, L100.0100, L500.2500 ####[facility] [address] [place], [address] CO2 [Moles/Vol] 25.2 mmol/L Normal 21.0-32.0 [facility] Comment on above: Order Comment: PT RE FUSED TO LET ME CHECK HANDS OR AC. PT WOULD ONLY LET MEDRAW FROM RIGHT WRIST-SWRIGHT Performed By: #### L 503.7505, L100.0100, L500.2500 ####[facility] [address] [place], [address] Creatinine [Mass/Vol] 1.13 mg/dL Normal 0.70-1.20 [facility] Comment on above: Order Comment: PT RE FUSED TO LET ME CHECK HANDS OR AC. PT WOULD ONLY LET MEDRAW FROM RIGHT WRIST-SWRIGHT Performed By: #### L 503.7505, L100.0100, L500.2500 ####[facility] [address] [place], [address] GAP 17 High 5-15 [facility] Comment on above: Order Comment: PT RE FUSED TO LET ME CHECK HANDS OR AC. PT WOULD ONLY LET MEDRAW FROM RIGHT WRIST-SWRIGHT Performed By: #### L 503.7505, L100.0100, L500.2500 ####[facility] [address] [place], [address] GFR/1.73 sq M.predicted among non-blacks MDRD (S/P/Bld) [Vol rate/Area] 52 mL/min/{1.73_m2} Low >60 [facility] Comment on above: Order Comment: PT RE FUSED TO LET ME CHECK HANDS OR AC. PT WOULD ONLY LET MEDRAW FROM RIGHT WRIST-SWRIGHT Result Comment: mL/m in/1.73m2 CKD-EPI Creatinine Equation (2020) Performed By: #### L 503.7505, L100.0100, L500.2500 ####[facility] [address] [place], [address] Glucose [Mass/Vol] 202 mg/dL High 70-99 [facility] Comment on above: Order Comment: PT RE FUSED TO LET ME CHECK HANDS OR AC. PT WOULD ONLY LET MEDRAW FROM RIGHT WRIST-SWRIGHT Performed By: #### L 503.7505, L100.0100, L500.2500 ####[facility] [address] [place], [address] Potassium [Moles/Vol] 3.1 mmol/L Low 3.3-5.1 [facility] Comment on above: Order Comment: PT RE FUSED TO LET ME CHECK HANDS OR AC. PT WOULD ONLY LET MEDRAW FROM RIGHT WRIST-SWRIGHT Performed By: #### L 503.7505, L100.0100, L500.2500 ####[facility] [address] [place], [address] Sodium [Moles/Vol] 141 mmol/L Normal 133-145 [facility] Comment on above: Order Comment: PT RE FUSED TO LET ME CHECK HANDS OR AC. PT WOULD ONLY LET MEDRAW FROM RIGHT WRIST-SWRIGHT Performed By: #### L 503.7505, L100.0100, L500.2500 ####[facility] [address] [place], [address] Urea nitrogen [Mass/Vol] 7 mg/dL Normal 4-19 [facility] Comment on above: Order Comment: PT RE FUSED TO LET ME CHECK HANDS OR AC. PT WOULD ONLY LET MEDRAW FROM RIGHT WRIST-SWRIGHT Performed By: #### L 503.7505, L100.0100, L500.2500 ####[facility] [address] [place], [address] Basophil percentageOrdered B y: Robert Cheng on 01-01-2025 Basophils/100 WBC (Bld) 0.6 % 0-1 [facility] CBC W/Diff, Automatedon 12-05-2024 Absolute Lymph 0.92 X10 3/uL Normal 0.83-4.51 [facility] Comment on above: Performed By: #### L 503.7505, L100.0100, L500.2500 ####[facility] [address] [place], [address] Absolute Neut 7.5 X10 3/uL Normal 2.0-7.7 [facility] Comment on above: Performed By: #### L 503.7505, L100.0100, L500.2500 ####[facility] [address] [place], [address] Basophils/100 WBC (Bld) 0.6 % Normal 0-1 [facility] Comment on above: Performed By: #### L 503.7505, L100.0100, L500.2500 ####[facility] [address] [place], [address] Eosinophils/100 WBC (Bld) 0.9 % Normal 0-5 [facility] Comment on above: Performed By: #### L 503.7505, L100.0100, L500.2500 ####[facility] [address] [place], [address] Erythrocyte distribution width (RBC) [Ratio] 16.2 % High 11.6-14.6 [facility] Comment on above: Performed By: #### L 503.7505, L100.0100, L500.2500 ####[facility] [address] [place], [address] Hematocrit (Bld) [Volume fraction] 35.0 % Low 37-47 [facility] Comment on above: Performed By: #### L 503.7505, L100.0100, L500.2500 ####[facility] [address] [place], [address] Hemoglobin (Bld) [Mass/Vol] 10.3 g/dL Low 12.0-15.0 [facility] Comment on above: Performed By: #### L 503.7505, L100.0100, L500.2500 ####[facility] [address] [place], [address] IG% 1.200 High 0.0-0.9 [facility] Comment on above: Result Comment: IG% - Immature Granulocytes (promyelocytes, myelocytes andmetamyelocytes) > 1% indicates that a LEFT SHIFT is Present. Performed By: #### L 503.7505, L100.0100, L500.2500 ####[facility] [address] [place], [address] Lymphocytes/100 WBC (Bld) 9.9 % Low 19-41 [facility] Comment on above: Performed By: #### L 503.7505, L100.0100, L500.2500 ####[facility] [address] [place], [address] MCH (RBC) [Entitic mass] 25.6 pg Low 27.0-32.0 [facility] Comment on above: Performed By: #### L 503.7505, L100.0100, L500.2500 ####[facility] [address] [place], [address] MCHC (RBC) [Mass/Vol] 29.4 g/dL Low 32-36 [facility] Comment on above: Performed By: #### L 503.7505, L100.0100, L500.2500 ####[facility] [address] [place], [address] MCV (RBC) [Entitic vol] 86.8 fL Normal 81-[address] [facility] Comment on above: Performed By: #### L 503.7505, L100.0100, L500.2500 ####[facility] [address] [place], [address] Monocytes/100 WBC (Bld) 6.2 % Normal 0-[address] [facility] Comment on above: Performed By: #### L 503.7505, L100.0100, L500.2500 ####[facility] [address] [place], [address] Neutrophils/100 WBC (Bld) 81.2 % High 47-70 [facility] Comment on above: Performed By: #### L 503.7505, L100.0100, L500.2500 ####[facility] [address] [place], [address] Nucleated RBC (Bld) [#/Vol] 0 10*3/uL Normal 0-5 [facility] Comment on above: Performed By: #### L 503.7505, L100.0100, L500.2500 ####[facility] [address] [place], [address] Platelet mean volume (Bld) [Entitic vol] 9.7 fL Normal 6.2-12.0 [facility] Comment on above: Performed By: #### L 503.7505, L100.0100, L500.2500 ####[facility] [address] [place], [address] Platelets (Bld) [#/Vol] 222 10*3/uL Normal 150-450 [facility] Comment on above: Performed By: #### L 503.7505, L100.0100, L500.2500 ####[facility] [address] [place], [address] RBC (Bld) [#/Vol] 4.03 10*6/uL Low 4.2-5.4 [facility] Comment on above: Performed By: #### L 503.7505, L100.0100, L500.2500 ####[facility] [address] [place], [address] RDW SD 51.6 fl High 35.1-43.9 [facility] Comment on above: Performed By: #### L 503.7505, L100.0100, L500.2500 ####[facility] [address] [place], [address] WBC (Bld) [#/Vol] 9.3 10*3/uL Normal 4.4-11.0 [facility] Comment on above: Performed By: #### L 503.7505, L100.0100, L500.2500 ####[facility] [address] [place], [address] Carbon dioxide, total [Moles /volume] in Central venous bloodOrdered By: Robert Cheng on 01-01-2025 CO2 [Moles/Vol] 25.2 mmol/L 21.0-32.0 [facility] Cardiology Visit Reporton Cardiology Visit Report Normal [facility] Chloride assayOrdered By: Sonya Cheng on 01-01-2025 Chloride [Moles/Vol] 99 mmol/L 98-108 [facility] Eosinophil percentageOrdered By: Robert Cheng on 01-01-2025 Eosinophils/100 WBC (Bld) 0.9 % 0-5 [facility] Erythrocyte distribution wid th ratioOrdered By: Robert Cheng on 01-01-2025 Erythrocyte distribution width (RBC) [Ratio] 16.2 % High 11.6-14.6 [facility] Erythrocyte distribution wid th standard deviationOrdered By: Robert Cheng on 01-01-2025 Erythrocyte distribution width (RBC) [Ratio] 51.6 fl High 35.1-43.9 [facility] Glomerular filtration rate ( GFR) estimation/1.73 sq m using serum, plasma, or whole bOrdered By: Robert Cheng on 01-01-2025 GFR/1.73 sq M.predicted among non-blacks MDRD (S/P/Bld) [Vol rate/Area] 52 mL/min/{1.73_m2} Low >60 [facility] Hematocrit Auto (Bld) [Volum e fraction]Ordered By: Robert Cheng on 01-01-2025 Hematocrit (Bld) [Volume fraction] 35.0 % Low 37-47 [facility] Hemoglobin measurementOrdere d By: Robert Cheng on 01-01-2025 Hemoglobin (Bld) [Mass/Vol] 10.3 g/dL Low 12.0-15.0 [facility] Immature granulocytes/100 WB C Auto (Bld)Ordered By: Robert Cheng on 01-01-2025 Immature granulocytes/100 WBC (Bld) 1.200 % High 0.0-0.9 [facility] L503.7505on 01-01-2025 Natriuretic peptide B (Bld) [Mass/Vol] 233 pg/mL Normal <=900 [facility] Comment on above: Order Comment: PT RE FUSED TO LET ME CHECK HANDS OR AC. PT WOULD ONLY LET MEDRAW FROM RIGHT WRIST-SWRIGHT Result Comment: Hear t Failure Unlikely: < 300 pg/mLHeart Failure Likely< 50 Years: > 450 pg/mL50-75 Years: > 900 pg/mL>75 Years: > 1800 pg/mL Performed By: #### L 503.7555, L100.0100, L500.2500 ####[facility] [address] [place], [address] MCV (mean corpuscular volume ) determinationOrdered By: Robert Cheng on 01-01-2025 MCV (RBC) [Entitic vol] 86.8 fL 81-99 [facility] Mean corpuscular hemoglobin (MCH) determinationOrdered By: Robert Cheng on 01-01-2025 MCH (RBC) [Entitic mass] 25.6 pg Low 27.0-32.0 [facility] Monocyte percentageOrdered B y: Robert Cheng on 01-01-2025 Monocytes/100 WBC (Bld) 6.2 % 0-10 [facility] Natriuretic peptide.B prohor augustine N-Terminal [Mass/volume] in Serum or PlasmaOrdered By: Robert Cheng on 01-01-2025 Natriuretic peptide.B prohormone N-Terminal [Mass/Vol] 233 pg/mL <900 [facility] Neutrophil percentageOrdered By: Robert Cheng on 01-01-2025 Neutrophils/100 WBC (Bld) 81.2 % High 47-70 [facility] Platelet countOrdered By: Sonya Cheng on 01-01-2025 Platelets (Bld) [#/Vol] 222 10*3/uL 150-450 [facility] Potassium measurement (mass/ volume)Ordered By: Robert Cheng on 01-01-2025 Potassium (Unsp spec) [Mass/Vol] 3.1 mmol/L Low 3.3-5.1 [facility] RBC Auto (Bld) [#/Vol]Ordere d By: Robert Cheng on 01-01-2025 RBC (Bld) [#/Vol] 4.03 10*6/uL Low 4.2-5.4 [facility] Serum creatinine measurement (mass/volume)Ordered By: Robert Cheng on 01-01-2025 Creatinine [Mass/Vol] 1.13 mg/dL 0.70-1.20 [facility] Serum glucose measurement (m ass/volume)Ordered By: Robert Cheng on 01-01-2025 Glucose [Mass/Vol] 202 mg/dL High 70-99 [facility] Serum or plasma calcium christi urement (mass/volume)Ordered By: Robert Cheng on 01-01-2025 Calcium [Mass/Vol] 9.5 mg/dL 7.6-11.0 [facility] Serum or plasma urea nitroge n measurement (mass/volume)Ordered By: Robert Cheng on 01-01-2025 Urea nitrogen [Mass/Vol] 7 mg/dL 4-19 [facility] Sodium levelOrdered By: Robert Cheng on 01-01-2025 Sodium [Moles/Vol] 141 mmol/L 133-145 [facility] White blood cell (WBC) count Ordered By: Robert Cheng on 01-01-2025 WBC (Bld) [#/Vol] 9.3 10*3/uL 4.4-11.0 [facility] Urine Cultureon 12-20-2024 [facility] Mixed Gram Positive Organisms [place] Count 11,000-25,000 [facility] Mixed contaminants. Submit a new specimen if indicated. Normal [facility] Comment on above: Performed By: #### M 100.5790 ####[facility] [address] [place], [address] 12 Lead EKGon 12-17-2024 12 Lead EKG Normal [facility] Absolute lymphocyte countOrd ered By: Son Craft on 12-17-2024 Lymphocytes Auto (Unsp spec) [#/Vol] 1.38 10*3/uL 0.83-4.51 [facility] Absolute neutrophil countOrd ered By: Son Craft on 12-17-2024 Absolute neutrophil count 5.6 X10^3/uL 2.0-7.7 [facility] Anion gap [Moles/Vol]Ordered By: Son Craft on 12-17-2024 Anion gap in Serum or Plasma 17 High 01-16 [facility] Anion gap in Serum or Plasma Ordered By: Son Craft on 12-17-2024 Anion gap [Moles/Vol] 17 mmol/L High 01-16 [facility] Automated lymphocyte count a s percentage of total leukocytesOrdered By: Son Craft on 12-17-2024 Lymphocytes/100 WBC Auto (Unsp spec) 18.1 % Low 19-41 [facility] BUN/creatinine ratioOrdered By: Son Craft on 12-17-2024 Urea nitrogen/Creatinine [Mass ratio] 6.7 mg/mg Low 10-20 [facility] BUN/creatinine ratio 6.7 RATIO Low 10-20 [facility] Basic Metabolic Profile (BMP )on 12-17-2024 BUN/CRE 6.7 RATIO Low 10-20 [facility] Comment on above: Performed By: #### L 501.4021, L500.2500, L100.0100, L300.3900 ####[facility] [address] [place], [address] Calcium [Mass/Vol] 9.7 mg/dL Normal 7.6-11.0 [facility] Comment on above: Performed By: #### L 501.4021, L500.2500, L100.0100, L300.3900 ####[facility] [address] [place], [address] Chloride [Moles/Vol] 97 mmol/L Low 98-108 [facility] Comment on above: Performed By: #### L 501.4021, L500.2500, L100.0100, L300.3900 ####[facility] [address] [place], [address] CO2 [Moles/Vol] 24.2 mmol/L Normal 21.0-32.0 [facility] Comment on above: Performed By: #### L 501.4021, L500.2500, L100.0100, L300.3900 ####[facility] [address] [place], [address] Creatinine [Mass/Vol] 1.13 mg/dL Normal 0.70-1.20 [facility] Comment on above: Performed By: #### L 501.4021, L500.2500, L100.0100, L300.3900 ####[facility] [address] [place], [address] ECRCL 63.11 ml/min Normal 50-250 [facility] Comment on above: Performed By: #### L 501.4021, L500.2500, L100.0100, L300.3900 ####[facility] [address] [place], [address] GAP 17 High 5-15 [facility] Comment on above: Performed By: #### L 501.4021, L500.2500, L100.0100, L300.3900 ####[facility] [address] [place], [address] GFR/1.73 sq M.predicted among non-blacks MDRD (S/P/Bld) [Vol rate/Area] 52 mL/min/{1.73_m2} Low >60 [facility] Comment on above: Result Comment: mL/m in/1.73m2 CKD-EPI Creatinine Equation (2020) Performed By: #### L 501.4021, L500.2500, L100.0100, L300.3900 ####[facility] [address] [place], [address] Glucose [Mass/Vol] 133 mg/dL High 70-99 [facility] Comment on above: Performed By: #### L 501.4021, L500.2500, L100.0100, L300.3900 ####[facility] [address] [place], [address] Potassium [Moles/Vol] 2.9 mmol/L Low 3.3-5.1 [facility] Comment on above: Performed By: #### L 501.4021, L500.2500, L100.0100, L300.3900 ####[facility] [address] [place], [address] Sodium [Moles/Vol] 138 mmol/L Normal 133-145 [facility] Comment on above: Performed By: #### L 501.4021, L500.2500, L100.0100, L300.3900 ####[facility] [address] [place], [address] Urea nitrogen [Mass/Vol] 8 mg/dL Normal 4-19 [facility] Comment on above: Performed By: #### L 501.4021, L500.2500, L100.0100, L300.3900 ####[facility] [address] [place], [address] Basophil percentageOrdered B y: Son Craft on 12-17-2024 Basophils/100 WBC (Bld) 0.5 % 0-1 [facility] Basophil percentage 0.5 % 0-1 [facility] Bilirubin Test strip Ql (U)O rdered By: Son Craft on 12-17-2024 Bilirubin Ql (U) Negative Negative [facility] CBC W/Diff, Automatedon 12-03 Absolute Lymph 1.38 X10 3/uL Normal 0.83-4.51 [facility] Comment on above: Performed By: #### L 501.4021, L500.2500, L100.0100, L300.3900 ####[facility] [address] [place], [address] Absolute Neut 5.6 X10 3/uL Normal 2.0-7.7 [facility] Comment on above: Performed By: #### L 501.4021, L500.2500, L100.0100, L300.3900 ####[facility] [address] [place], [address] Basophils/100 WBC (Bld) 0.5 % Normal 0-1 [facility] Comment on above: Performed By: #### L 501.4021, L500.2500, L100.0100, L300.3900 ####[facility] [address] [place], [address] Eosinophils/100 WBC (Bld) 1.3 % Normal 0-5 [facility] Comment on above: Performed By: #### L 501.4021, L500.2500, L100.0100, L300.3900 ####[facility] [address] [place], [address] Erythrocyte distribution width (RBC) [Ratio] 16.5 % High 11.6-14.6 [facility] Comment on above: Performed By: #### L 501.4021, L500.2500, L100.0100, L300.3900 ####[facility] [address] [place], [address] Hematocrit (Bld) [Volume fraction] 36.8 % Low 37-47 [facility] Comment on above: Performed By: #### L 501.4021, L500.2500, L100.0100, L300.3900 ####[facility] [address] [place], [address] Hemoglobin (Bld) [Mass/Vol] 11.3 g/dL Low 12.0-15.0 [facility] Comment on above: Performed By: #### L 501.4021, L500.2500, L100.0100, L300.3900 ####[facility] [address] [place], [address] IG% 0.700 Normal 0.0-0.9 [facility] Comment on above: Result Comment: IG% - Immature Granulocytes (promyelocytes, myelocytes andmetamyelocytes) > 1% indicates that a LEFT SHIFT is Present. Performed By: #### L 501.4021, L500.2500, L100.0100, L300.3900 ####[facility] [address] [place], [address] Lymphocytes/100 WBC (Bld) 18.1 % Low 19-41 [facility] Comment on above: Performed By: #### L 501.4021, L500.2500, L100.0100, L300.3900 ####[facility] [address] [place], [address] MCH (RBC) [Entitic mass] 26.0 pg Low 27.0-32.0 [facility] Comment on above: Performed By: #### L 501.4021, L500.2500, L100.0100, L300.3900 ####[facility] [address] [place], [address] MCHC (RBC) [Mass/Vol] 30.7 g/dL Low 32-36 [facility] Comment on above: Performed By: #### L 501.4021, L500.2500, L100.0100, L300.3900 ####[facility] [address] [place], [address] MCV (RBC) [Entitic vol] 84.8 fL Normal 81-[address] [facility] Comment on above: Performed By: #### L 501.4021, L500.2500, L100.0100, L300.3900 ####[facility] [address] [place], [address] Monocytes/100 WBC (Bld) 6.3 % Normal 0-[address] [facility] Comment on above: Performed By: #### L 501.4021, L500.2500, L100.0100, L300.3900 ####[facility] [address] [place], [address] Neutrophils/100 WBC (Bld) 73.1 % High 47-70 [facility] Comment on above: Performed By: #### L 501.4021, L500.2500, L100.0100, L300.3900 ####[facility] [address] [place], [address] Nucleated RBC (Bld) [#/Vol] 0 10*3/uL Normal 0-5 [facility] Comment on above: Performed By: #### L 501.4021, L500.2500, L100.0100, L300.3900 ####[facility] [address] [place], [address] Platelet mean volume (Bld) [Entitic vol] 9.2 fL Normal 6.2-12.0 [facility] Comment on above: Performed By: #### L 501.4021, L500.2500, L100.0100, L300.3900 ####[facility] [address] [place], [address] Platelets (Bld) [#/Vol] 214 10*3/uL Normal 150-450 [facility] Comment on above: Performed By: #### L 501.4021, L500.2500, L100.0100, L300.3900 ####[facility] [address] [place], [address] RBC (Bld) [#/Vol] 4.34 10*6/uL Normal 4.2-5.4 [facility] Comment on above: Performed By: #### L 501.4021, L500.2500, L100.0100, L300.3900 ####[facility] [address] [place], [address] RDW SD 51.3 fl High 35.1-43.9 [facility] Comment on above: Performed By: #### L 501.4021, L500.2500, L100.0100, L300.3900 ####[facility] [address] [place], [address] WBC (Bld) [#/Vol] 7.6 10*3/uL Normal 4.4-11.0 [facility] Comment on above: Performed By: #### L 501.4021, L500.2500, L100.0100, L300.3900 ####[facility] [address] [place], [address] Calcium [Mass/Vol]Ordered By : Son Craft on 12-17-2024 Serum or plasma calcium measurement (mass/volume) 9.7 mg/dL 7.6-11.0 [facility] Carbon dioxide, total [Moles /volume] in Central venous bloodOrdered By: Son Craft on 12-17-2024 CO2 [Moles/Vol] 24.2 mmol/L 21.0-32.0 [facility] Carbon dioxide, total [Moles/volume] in Central venous blood 24.2 mmol/L 21.0-32.0 [facility] Chest 1 View (Portable)on Chest 1 View (Portable) Normal [facility] Chloride assayOrdered By: Shirlene Craft on 12-17-2024 Chloride [Moles/Vol] 97 mmol/L Low 98-108 [facility] Chloride assay 97 mmol/L Low 98-108 [facility] Clarity (U)Ordered By: Son Craft on 12-17-2024 Urine clarity Clear Clear [facility] Color (U)Ordered By: Son raygoza on 12-17-2024 Urine color determination Yellow Yellow [facility] Creatinine [Mass/Vol]Ordered By: Son Craft on 12-17-2024 Serum creatinine measurement (mass/volume) 1.13 mg/dL 0.70-1.20 [facility] Emergency Department Summary on 12-17-2024 Emergency Department Summary Normal [facility] Eosinophil percentageOrdered By: Son Craft on 12-17-2024 Eosinophils/100 WBC (Bld) 1.3 % 0-5 [facility] Eosinophil percentage 1.3 % 0-5 [facility] Epithelial cells.squamous LM Ql (Urine sed)Ordered By: Son Craft on 12-17-2024 Squamous epithelial cells detection in urine sediment by light microscopy 0-5 SEEN /hpf 5-10 [facility] Erythrocyte distribution wid th (RBC) [Ratio]Ordered By: Son Craft on 12-17-2024 Erythrocyte distribution width ratio 16.5 % High 11.6-14.6 [facility] Erythrocyte distribution width standard deviation 51.3 fl High 35.1-43.9 [facility] Erythrocyte distribution wid th ratioOrdered By: Son Craft on 12-17-2024 Erythrocyte distribution width (RBC) [Ratio] 16.5 % High 11.6-14.6 [facility] Erythrocyte distribution wid th standard deviationOrdered By: Son Craft on 12-17-2024 Erythrocyte distribution width (RBC) [Ratio] 51.3 fl High 35.1-43.9 [facility] Estimation of creatinine husam aranceOrdered By: Son Craft on 12-17-2024 Estimation of creatinine clearance 63.11 ml/min 50-250 [facility] GFR/1.73 sq M.predicted keenan g non-blacks MDRD (S/P/Bld) [Vol rate/Area]Ordered By: Son Craft on 12-17-2024 Glomerular filtration rate (GFR) estimation/1.73 sq m using serum, plasma, or whole b 52 Low >60 [facility] Glomerular filtration rate ( GFR) estimation/1.73 sq m using serum, plasma, or whole bOrdered By: Son Craft on 12-17-2024 GFR/1.73 sq M.predicted among non-blacks MDRD (S/P/Bld) [Vol rate/Area] 52 mL/min/{1.73_m2} Low >60 [facility] Glucose Ql (U)Ordered By: Shirlene Craft on 12-17-2024 Urine glucose detection 1000 mg/dl High Normal [facility] Glucose [Mass/Vol]Ordered By : Son Craft on 12-17-2024 Serum glucose measurement (mass/volume) 133 mg/dL High 70-99 [facility] Hematocrit Auto (Bld) [Volum e fraction]Ordered By: Son Craft on 12-17-2024 Hematocrit (Bld) [Volume fraction] 36.8 % Low 37-47 [facility] Automated blood hematocrit (percentage) 36.8 % Low 37-47 [facility] Hemoglobin measurementOrdere d By: Son Craft on 12-17-2024 Hemoglobin (Bld) [Mass/Vol] 11.3 g/dL Low 12.0-15.0 [facility] Hemoglobin measurement 11.3 g/dL Low 12.0-15.0 [facility] Immature granulocytes/100 WB C Auto (Bld)Ordered By: Son Craft on 12-17-2024 Immature granulocytes/100 WBC (Bld) 0.700 % 0.0-0.9 [facility] Automated immature granulocyte percentage 0.700 % 0.0-0.9 [facility] International normalized rat io (INR) calculationOrdered By: Son Craft on 12-17-2024 International normalized ratio (INR) calculation 1.3 [facility] Ketones Test strip Ql (U)Ord ered By: Son Craft on 12-17-2024 Ketones Ql (U) Negative Negative [facility] L499.0042on 12-17-2024 Trop T High Sen Normal <=14 [facility] Comment on above: Result Comment: PT D ISCHARGED Performed By: #### L 499.0042 ####[facility] [address] [place], [address] L499.0043on 12-17-2024 Trop T High Sen Normal <=14 [facility] Comment on above: Result Comment: Canc elled via OM: Order cancelled - Patient discharged Performed By: #### L 499.0043 ####[facility] [address] [place], [address] L501.4021on 12-17-2024 Trop T High Sen 24 ng/L High <=14 [facility] Comment on above: Performed By: #### L 501.4021, L500.2500, L100.0100, L300.3900 ####[facility] [address] [place], [address] Leukocyte esterase Test stri p Ql (U)Ordered By: Son Craft on 12-17-2024 Urine leukocyte esterase detection by dipstick 25 /ul High Negative [facility] Lymphocytes Auto (Unsp spec) [#/Vol]Ordered By: Son Craft on 12-17-2024 Absolute lymphocyte count 1.38 X10^3/uL 0.83-4.51 [facility] Lymphocytes/100 WBC Auto (Un sp spec)Ordered By: Son Craft on 12-17-2024 Automated lymphocyte count as percentage of total leukocytes 18.1 % Low 19-41 [facility] MCV (RBC) [Entitic vol]Order ed By: Son Craft on 12-17-2024 MCV (mean corpuscular volume) determination 84.8 fL 81-99 [facility] MCV (mean corpuscular volume ) determinationOrdered By: Son Craft on 12-17-2024 MCV (RBC) [Entitic vol] 84.8 fL 81-99 [facility] Magnesiumon 12-17-2024 Magnesium [Mass/Vol] 1.7 mg/dL Normal 1.5-2.2 [facility] Comment on above: Performed By: #### L 501.5200 ####[facility] [address] [place], [place], [address] Magnesium (Unsp spec) [Mass/ Vol]Ordered By: Son Craft on 12-17-2024 Magnesium measurement (mass/volume) 1.7 mg/dL 1.5-2.2 [facility] Magnesium measurement (mass/ volume)Ordered By: Son Craft on 12-17-2024 Magnesium (Unsp spec) [Mass/Vol] 1.7 mg/dL 1.5-2.2 [facility] Mean corpuscular hemoglobin (MCH) determinationOrdered By: Son Craft on 12-17-2024 MCH (RBC) [Entitic mass] 26.0 pg Low 27.0-32.0 [facility] Mean corpuscular hemoglobin (MCH) determination 26.0 pg Low 27.0-32.0 [facility] Mean corpuscular hemoglobin concentration (MCHC) determinationOrdered By: Son Craft on 12-17-2024 Mean corpuscular hemoglobin concentration (MCHC) determination 30.7 g/dL Low 32-36 [facility] Mean platelet volume determi nationOrdered By: Son Craft on 12-17-2024 Mean platelet volume determination 9.2 fl 6.2-12.0 [facility] Microscopic analysis of urin e for red blood cells (RBC)Ordered By: Son Craft on 12-17-2024 Microscopic analysis of urine for red blood cells (RBC) 0 SEEN /hpf [facility] Monocyte percentageOrdered B y: Son Craft on 12-17-2024 Monocytes/100 WBC (Bld) 6.3 % 0-10 [facility] Monocyte percentage 6.3 % 0-10 [facility] [place] LM Ql (Urine sed)Order ed By: Son Craft on 12-17-2024 Mucus Ql (Urine sed) 0 SEEN /hpf [facility] Neutrophil percentageOrdered By: Son Craft on 12-17-2024 Neutrophils/100 WBC (Bld) 73.1 % High 47-70 [facility] Neutrophil percentage 73.1 % High 47-70 [facility] Nitrite Test strip Ql (U)Ord ered By: Son Craft on 12-17-2024 Nitrite Ql (U) Negative Negative [facility] Nucleated red blood cell per centageOrdered By: Son Craft on 12-17-2024 Nucleated red blood cell percentage 0 % 0-5 [facility] Platelet countOrdered By: Shirlene Craft on 12-17-2024 Platelets (Bld) [#/Vol] 214 10*3/uL 150-450 [facility] Platelet count 214 K/mm3 150-450 [facility] Potassium (Unsp spec) [Mass/ Vol]Ordered By: Son Craft on 12-17-2024 Potassium measurement (mass/volume) 2.9 mmol/L Low 3.3-5.1 [facility] Potassium measurement (mass/ volume)Ordered By: Son Craft on 12-17-2024 Potassium (Unsp spec) [Mass/Vol] 2.9 mmol/L Low 3.3-5.1 [facility] Protein Test strip Ql (U)Ord ered By: Son Craft on 12-17-2024 Protein Ql (U) 15 mg/dl High Negative [facility] Urine protein assay by test strip, semi-quantitative 15 mg/dl High Negative [facility] Prothrombin Time w/INRon INR Coag (PPP) [Relative time] 1.3 {INR} Normal [facility] Comment on above: Performed By: #### L 501.4021, L500.2500, L100.0100, L300.3900 ####[facility] [address] [place], [address] PT Coag (PPP) [Time] 16.8 s High 11.7-14.9 [facility] Comment on above: Performed By: #### L 501.4021, L500.2500, L100.0100, L300.3900 ####[facility] [address] [place], [address] Prothrombin timeOrdered By: Son Craft on 12-17-2024 PT Coag (PPP) [Time] 16.8 s High 11.7-14.9 [facility] Prothrombin time 16.8 SECONDS High 11.7-14.9 [facility] RBC Auto (Bld) [#/Vol]Ordere d By: Son Craft on 12-17-2024 RBC (Bld) [#/Vol] 4.34 10*6/uL 4.2-5.4 [facility] Automated blood erythrocyte count 4.34 M/mm3 4.2-5.4 [facility] Serum creatinine measurement (mass/volume)Ordered By: Son Craft on 12-17-2024 Creatinine [Mass/Vol] 1.13 mg/dL 0.70-1.20 [facility] Serum glucose measurement (m ass/volume)Ordered By: Son Craft on 12-17-2024 Glucose [Mass/Vol] 133 mg/dL High 70-99 [facility] Serum or plasma calcium christi urement (mass/volume)Ordered By: Son Craft on 12-17-2024 Calcium [Mass/Vol] 9.7 mg/dL 7.6-11.0 [facility] Serum or plasma urea nitroge n measurement (mass/volume)Ordered By: Son Craft on 12-17-2024 Urea nitrogen [Mass/Vol] 8 mg/dL 4-19 [facility] Sodium levelOrdered By: Son Craft on 12-17-2024 Sodium [Moles/Vol] 138 mmol/L 133-145 [facility] Sodium level 138 mmol/L 133-145 [facility] Specific gravity (U) [Rel de nsity]Ordered By: Son Craft on 12-17-2024 Urine specific gravity measurement 1.010 1.002-1.030 [facility] Squamous epithelial cells de tection in urine sediment by light microscopyOrdered By: Son Craft on 12-17-2024 Epithelial cells.squamous LM Ql (Urine sed) 0-5 SEEN /hpf 5-10 [facility] Troponin T.cardiac High sens itivity method [Mass/Vol]Ordered By: Son Craft on 12-17-2024 Troponin T.cardiac [Mass/volume] in Serum or Plasma by High sensitivity method 24 ng/L High <14 [facility] Troponin T.cardiac [Mass/vol ume] in Serum or Plasma by High sensitivity methodOrdered By: Son Craft on 12-17-2024 Troponin T.cardiac High sensitivity method [Mass/Vol] 24 ng/L High <14 [facility] Urea nitrogen [Mass/Vol]Orde red By: Son Craft on 12-17-2024 Serum or plasma urea nitrogen measurement (mass/volume) 8 mg/dL 4-19 [facility] Urinalysis, Completeon 12-17 BACTERIA 1+ /hpf Normal None Seen [facility] Comment on above: Order Comment: CLEAN CATCH Performed By: #### L 400.0001 ####[facility] [address] [facility] [address] WBC 10-25 SEEN Normal 0-5 [facility] Comment on above: Order Comment: CLEAN CATCH Performed By: #### L 400.0001 ####[facility] [address] [place], [address] YEAST 1+ /hpf Normal None Seen [facility] Comment on above: Order Comment: CLEAN CATCH Performed By: #### L 400.0001 ####[facility] [address] [place], [address] EPI,SQUAMOUS 0-5 SEEN Normal 5-10 [facility] Comment on above: Order Comment: CLEAN CATCH Performed By: #### L 400.0001 ####[facility] [address] [place], [address] BILIRUBIN URINE Negative Normal Negative [facility] Comment on above: Order Comment: CLEAN CATCH Performed By: #### L 400.0001 ####[facility] [address] [place], [address] Clarity (U) Clear Normal Clear [facility] Comment on above: Order Comment: CLEAN CATCH Performed By: #### L 400.0001 ####[facility] [address] [place], [address] Color (U) Yellow Normal Yellow [facility] Comment on above: Order Comment: CLEAN CATCH Performed By: #### L 400.0001 ####[facility] [address] [place], [address] GLUCOSE, UR 1000 mg/dl Abnormal Normal [facility] Comment on above: Order Comment: CLEAN CATCH Performed By: #### L 400.0001 ####[facility] [address] [place], [address] KETONE UR Negative Normal Negative [facility] Comment on above: Order Comment: CLEAN CATCH Performed By: #### L 400.0001 ####[facility] [address] [place], [address] LEUK ESTERASE 25 /ul Abnormal Negative [facility] Comment on above: Order Comment: CLEAN CATCH Performed By: #### L 400.0001 ####[facility] [address] [place], [address] Nitrite Ql (U) Negative Normal Negative [facility] Comment on above: Order Comment: CLEAN CATCH Performed By: #### L 400.0001 ####[facility] [address] [place], [address] OCCULT BLOOD-UR Negative Normal Negative [facility] Comment on above: Order Comment: CLEAN CATCH Performed By: #### L 400.0001 ####[facility] [address] [place], [address] pH UR 6.0 Normal 5.0 - 8.0 [facility] Comment on above: Order Comment: CLEAN CATCH Performed By: #### L 400.0001 ####[facility] [address] [place], [address] PROT DIPSTX 15 mg/dl Abnormal Negative [facility] Comment on above: Order Comment: CLEAN CATCH Performed By: #### L 400.0001 ####[facility] [address] [place], [address] SP.GR. DIPSTX 1.010 Normal 1.002-1.030 [facility] Comment on above: Order Comment: CLEAN CATCH Performed By: #### L 400.0001 ####[facility] [address] [place], [address] UROBILI Normal Normal Normal [facility] Comment on above: Order Comment: CLEAN CATCH Performed By: #### L 400.0001 ####[facility] [address] [place], [address] Mucus Ql (Urine sed) 0 SEEN Normal [facility] Comment on above: Order Comment: CLEAN CATCH Performed By: #### L 400.0001 ####[facility] [address] [place], [address] RBC 0 SEEN Normal 0-5 [facility] Comment on above: Order Comment: CLEAN CATCH Performed By: #### L 400.0001 ####[facility] [address] [place], [address] Urine clarityOrdered By: Uma Craft on 12-17-2024 Clarity (U) Clear Clear [facility] Urine color determinationOrd ered By: Son Craft on 12-17-2024 Color (U) Yellow Yellow [facility] Urine cultureOrdered By: Uma Craft on 12-17-2024 Bacteria identified Cx Nom (U) Positive Abnormal [facility] Urine glucose detectionOrder ed By: Son Craft on 12-17-2024 Glucose Ql (U) 1000 mg/dl High Normal [facility] Urine leukocyte esterase det ection by dipstickOrdered By: Son Craft on 12-17-2024 Leukocyte esterase Test strip Ql (U) 25 /ul High Negative [facility] Urine pHOrdered By: Son meeks on 12-17-2024 pH (U) 6.0 [pH] 5.0 - 8.0 [facility] Urine sediment bacteria coun t by microscopy (number/high power field)Ordered By: Son Craft on 12-17-2024 Bacteria LM.HPF (Urine sed) [#/Area] 1 /[HPF] None Seen [facility] Urine sediment bacteria count by microscopy (number/high power field) 1+ /hpf None Seen [facility] Urine sediment yeast count b y microscopy (number/high powered field)Ordered By: Son Craft on 12-17-2024 Yeast LM.HPF (Urine sed) [#/Area] 1 /[HPF] None Seen [facility] Urine specific gravity measu rementOrdered By: Son Craft on 12-17-2024 Specific gravity (U) [Rel density] 1.010 1.002-1.030 [facility] Urine total bilirubin detect ion by test stripOrdered By: Son Craft on 12-17-2024 Urine total bilirubin detection by test strip Negative Negative [facility] Urine urobilinogen measureme ntOrdered By: Son Craft on 12-17-2024 Urobilinogen Ql (U) Normal mg/dl Normal [facility] Urobilinogen Ql (U)Ordered B y: Son Craft on 12-17-2024 Urine urobilinogen measurement Normal mg/dl Normal [facility] White blood cell (WBC) count Ordered By: Son Craft on 12-17-2024 WBC (Bld) [#/Vol] 7.6 10*3/uL 4.4-11.0 [facility] White blood cell (WBC) count 7.6 K/mm3 4.4-11.0 [facility] White blood cell countOrdere d By: Son Craft on 12-17-2024 White blood cell count 10-25 SEEN /hpf 0-5 [facility] White blood cell count 10-25 SEEN /hpf 0-5 [facility] pH (U)Ordered By: Son mendes on 12-17-2024 Urine pH 6.0 5.0 - 8.0 [facility] CRPon 12-12-2024 C-REACTIVE PROT < 3.00 Normal 0.0-3.0 [facility] Comment on above: Performed By: #### L 101.9900, L501.6710 ####[facility] [address] [place], [place], [id number] CRP [Mass/Vol]Ordered By: Shanel Dangelo on 12-12-2024 C-Reactive Protein Extended Range < 3.00 mg/L 0.0-3.0 [facility] Serum or plasma C reactive protein measurement (mass/volume) < 3.00 mg/L 0.0-3.0 [facility] ESR (Bld) [Velocity]Ordered By: Nikki Dangelo on 12-12-2024 Erythrocyte sedimentation rate 2 mm/hr 0-30 [facility] Erythrocyte Sed Rateon 12-12 SED RATE 2 mm/hr Normal 0-30 [facility] Comment on above: Performed By: #### L 101.9900, L501.6710 ####[facility] [address] [place], [place], [id number] Erythrocyte sedimentation ra teOrdered By: Nikki Dangelo on 12-12-2024 ESR (Bld) [Velocity] 2 mm/h 0-30 [facility] Serum or plasma C reactive p rotein measurement (mass/volume)Ordered By: Nikki Dangelo on 12-12-2024 CRP [Mass/Vol] mg/L 0.0-3.0 [facility] 6 Minute Walk Teston 025 6 Minute Walk Test Normal [facility] CNOVon 12-05-2024 CNOV Office Visit (FAMPWS ) DERRELL GERMAN ([id number]) 1955 F Date Time Provider Department 12/05/24 2:00 PM PADMINI ANGUIANO During your visit today, we recorded the following information about you: Pulse Blood pressure Weight 84/minute 124/73 142 kg Padmini Anguiano APRN.ENROLLMENT REPRESENTATIVE 12/05/2024 2:19 PM Signed Chief Complaint Patient presents with: ER F/U HPI Derrell German is a 69 year old female who presents here today for Above Complaints.. Patient presents for ER follow up for bilateral PE. Patient was initiated on Eliquis. Patient reports she continues to have SOB and fatigue. Patient reports she completed 6 min ambulatory pulse ox and nighttime oxygen sleep study for pulmonology this past week. Past medical history, appointments, medications, allergies reviewed. Previous Medical History PAST MEDICAL HISTORY Diagnosis Date Advance directive discussed with patient 04/06/2022 Discussed 04/2022 Allergic rhinitis 02/10/2011 ASHD (arteriosclerotic heart disease) 03/08/[address] Dr[address] 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 History of left heart catheterization HEART CATH X2 STENTS X 3 NASH GARCIA Hyperlipidemia, mixed 06/30/2015 DR HUDSON, Hypertension, essential 06/30/2015 NASH GARCIA CARD- controlled with medication Joint pain PAIN MANAGMENT WILLARD CRUZ Living will on file 04/06/2022 DPA: [place] () Lumbar radiculopathy 04/28/2020 R L4 radiculopathy 04/2020 Medicare annual wellness visit, initial 04/06/2022 Medicare part B: 11/03/2019 Last done: 04/06/2022 Mild intermittent asthma without complication 02/10/2011 DENIES PROBLEMS, DENIES INHALERS Morbid obesity (HCC) 01/10/2012 NATALIE (obstructive sleep apnea) 09/10/2019 On BiPAP and sees VENTURA Schaffer Osteoarthritis of both knees 02/02/2017 Other intervertebral disc displacement, lumbosacral region 02/23/2023 PONV (postoperative nausea and vomiting) Postherpetic neuralgia 03/14/2014 Right mid-trunk area. 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 Psoriasis 10/23/2017 Rash bilateral forearms Rosacea 04/19/2013 Shingles 2014 Spinal stenosis of lumbar region without neurogenic claudication 03/19/2021 DR SANDOVAL FOLLOWING Spondylolisthesis of lumbar region 02/23/2023 Stage 3a chronic kidney disease ([facility]) 03/19/2021 GERALD CALHOUN AND WILLARD HARRINGTON Uncontrolled type 2 diabetes mellitus with hyperglycemia ([facility]) 12/24/2019 Seeing GERALD Marte Uses roller walker Vitamin D deficiency 03/19/2021 Wears glasses reading Previous Surgical History PAST SURGICAL HISTORY Procedure Laterality Date ANESTH, HYSTERECTOMY 2000 ANESTHESIA NOSE AND ACCESSORY SINUSES NOS 1995 CHOLECYSTECTOMY 1989 COLONOSCOPY FLX DX W/COLLJ SPEC WHEN PFRMD 04/18/2011 X3 HEART CATHETERIZATION 2002 HEART CATH X2 2001 AND 2019 STENTS X3 2019 PAST SURGICAL HISTORY OF L. knee PAST SURGICAL HISTORY OF kidney stones PAST SURGICAL HISTORY OF Right 2007 Knee PAST SURGICAL HISTORY OF NERVE STIMULATOR AND REMOVAL MELISSA ORTH REMV CATARACT EXTRACAP,INSERT LENS Bilateral Rt 08/2019, Lt 11/2019 STRESS TEST ADENOSINE 05/11/2013 THYROIDECTOMY TOTAL/COMPLETE 2000 TONSILLECTOMY HX 1963 Family History FAMILY HISTORY Problem Relation Age of Onset Diabetes Mother Thyroid Mother Diabetes Father Diabetes Paternal Aunt Patient Allergies ALLERGIES Allergen Reactions Amlodipine Swelling Diflucan [Fluconazo* Hives Diphth,Pertus(Acell* Hives Actos [Pioglitazone* Other: See Comments Edema BLE AND OLAG HANDS Bactrim [Sulfametho* Hives HIVES Betadine [Povidone-* Anaphylaxis SEVERE ALLERGY TO IODINE AND BETADINE Fish Anaphylaxis ALL FISH Iodine Anaphylaxis IV contrast Lipitor [Atorvastat* Rash, Itching Metformin Diarrhea, GI Upset [place] Anaphylaxis Penicillins Unknown NOT SURE A CHILD Sulfa (Sulfonamide * Swelling SWELLING AND HIVES Current Medications Current Outpatient Medications on File Prior to Visit Medication Sig ELIQUIS 5 mg tab(s) Take 5 mg by mouth two times a day. montelukast (SINGULAIR) 10 mg tablet Take 1 tablet by mouth daily at bedtime. metoprolol succinate ER (TOPROL XL) 25 mg 24 hr tablet Take 1 tablet by mouth every morning. potassium chloride (K-TAB) 10 mEq tablet Take 2 tablets by mouth two times a day. levothyroxine (SYNTHROID) 175 mcg tablet Take 1 tablet by mouth once daily. M-T--- (more content not included)... Normal [facility] 12 Lead EKGon 11-29-2024 12 Lead EKG Normal [facility] Absolute lymphocyte countOrd ered By: Glen Vital on 11-29-2024 Lymphocytes Auto (Unsp spec) [#/Vol] 0.97 10*3/uL 0.83-4.51 [facility] Absolute neutrophil countOrd ered By: Glen Vital on 11-29-2024 Neutrophils (Bld) [#/Vol] 7.6 10*3/uL 2.0-7.7 [facility] Absolute neutrophil count 7.6 X10^3/uL 2.0-7.7 [facility] Anion gap [Moles/Vol]Ordered By: Glen Vital on 11-29-2024 Anion gap in Serum or Plasma 24 High 5-15 [facility] Anion gap in Serum or Plasma Ordered By: Glen Vital on 11-29-2024 Anion gap [Moles/Vol] 24 mmol/L High 5-15 [facility] Automated lymphocyte count a s percentage of total leukocytesOrdered By: Glen Vital on 11-29-2024 Lymphocytes/100 WBC Auto (Unsp spec) 10.1 % Low 19-41 [facility] BUN/creatinine ratioOrdered By: Glen Vital on 11-29-2024 Urea nitrogen/Creatinine [Mass ratio] 7.7 mg/mg Low 10-20 [facility] BUN/creatinine ratio 7.7 RATIO Low 10-20 [facility] Basic Metabolic Profile (BMP )on 11-29-2024 BUN/CRE 7.7 RATIO Low 10-20 [facility] Comment on above: Performed By: #### L 100.0100, L501.4021, L500.2500 ####[facility] [address] [place], [address] Calcium [Mass/Vol] 9.2 mg/dL Normal 7.6-11.0 [facility] Comment on above: Performed By: #### L 100.0100, L501.4021, L500.2500 ####[facility] [address] [place], [address] Chloride [Moles/Vol] 104 mmol/L Normal 98-108 [facility] Comment on above: Performed By: #### L 100.0100, L501.4021, L500.2500 ####[facility] [address] [place], [address] CO2 [Moles/Vol] 12.3 mmol/L Low 21.0-32.0 [facility] Comment on above: Performed By: #### L 100.0100, L501.4021, L500.2500 ####[facility] [address] [place], [address] Creatinine [Mass/Vol] 1.20 mg/dL Normal 0.70-1.20 [facility] Comment on above: Performed By: #### L 100.0100, L501.4021, L500.2500 ####[facility] [address] [place], [address] GAP 24 High 5-15 [facility] Comment on above: Performed By: #### L 100.0100, L501.4021, L500.2500 ####[facility] [address] [place], [address] GFR/1.73 sq M.predicted among non-blacks MDRD (S/P/Bld) [Vol rate/Area] 49 mL/min/{1.73_m2} Low >60 [facility] Comment on above: Result Comment: mL/m in/1.73m2 CKD-EPI Creatinine Equation (2020) Performed By: #### L 100.0100, L501.4021, L500.2500 ####[facility] [address] [place], [address] Glucose [Mass/Vol] 178 mg/dL High 70-99 [facility] Comment on above: Performed By: #### L 100.0100, L501.4021, L500.2500 ####[facility] [address] [place], [address] Potassium [Moles/Vol] 3.9 mmol/L Normal 3.3-5.1 [facility] Comment on above: Performed By: #### L 100.0100, L501.4021, L500.2500 ####[facility] [address] [place], [address] Sodium [Moles/Vol] 141 mmol/L Normal 133-145 [facility] Comment on above: Performed By: #### L 100.0100, L501.4021, L500.2500 ####[facility] [address] [place], [address] Urea nitrogen [Mass/Vol] 9 mg/dL Normal 4-19 [facility] Comment on above: Performed By: #### L 100.0100, L501.4021, L500.2500 ####[facility] [address] [place], [address] Basophil percentageOrdered B y: Glen Vital on 11-29-2024 Basophils/100 WBC (Bld) 0.5 % 0-1 [facility] Basophil percentage 0.5 % 0-1 [facility] CBC W/Diff, Automatedon 11-03 Absolute Lymph 0.97 X10 3/uL Normal 0.83-4.51 [facility] Comment on above: Performed By: #### L 100.0100, L501.4021, L500.2500 ####[facility] [address] [place], [address] Absolute Neut 7.6 X10 3/uL Normal 2.0-7.7 [facility] Comment on above: Performed By: #### L 100.0100, L501.4021, L500.2500 ####[facility] [address] [place], [address] Basophils/100 WBC (Bld) 0.5 % Normal 0-1 [facility] Comment on above: Performed By: #### L 100.0100, L501.4021, L500.2500 ####[facility] [address] [place], [address] Eosinophils/100 WBC (Bld) 0.8 % Normal 0-5 [facility] Comment on above: Performed By: #### L 100.0100, L501.4021, L500.2500 ####[facility] [address] [place], [address] Erythrocyte distribution width (RBC) [Ratio] 16.6 % High 11.6-14.6 [facility] Comment on above: Performed By: #### L 100.0100, L501.4021, L500.2500 ####[facility] [address] [place], [address] Hematocrit (Bld) [Volume fraction] 35.7 % Low 37-47 [facility] [facility] Comment on above: Performed By: #### L 100.0100, L501.4021, L500.2500 ####[facility] [address] [place], [address] Hemoglobin (Bld) [Mass/Vol] 11.0 g/dL Low 12.0-15.0 [facility] Comment on above: Performed By: #### L 100.0100, L501.4021, L500.2500 ####[facility] [address] [place], [address] IG% 2.300 High 0.0-0.9 [facility] Comment on above: Result Comment: IG% - Immature Granulocytes (promyelocytes, myelocytes andmetamyelocytes) > 1% indicates that a LEFT SHIFT is Present. Performed By: #### L 100.0100, L501.4021, L500.2500 ####[facility] [address] [place], [address] Lymphocytes/100 WBC (Bld) 10.1 % Low 19-41 [facility] Comment on above: Performed By: #### L 100.0100, L501.4021, L500.2500 ####[facility] [address] [place], [address] MCH (RBC) [Entitic mass] 26.4 pg Low 27.0-32.0 [facility] Comment on above: Performed By: #### L 100.0100, L501.4021, L500.2500 ####[facility] [address] [place], [address] MCHC (RBC) [Mass/Vol] 30.8 g/dL Low 32-36 [facility] Comment on above: Performed By: #### L 100.0100, L501.4021, L500.2500 ####[facility] [address] [place], [address] MCV (RBC) [Entitic vol] 85.6 fL Normal 81-99 [facility] Comment on above: Performed By: #### L 100.0100, L501.4021, L500.2500 ####[facility] [address] [place], [address] Monocytes/100 WBC (Bld) 6.9 % Normal 0-10 [facility] Comment on above: Performed By: #### L 100.0100, L501.4021, L500.2500 ####[facility] [address] [place], [address] Neutrophils/100 WBC (Bld) 79.4 % High 47-70 [facility] Comment on above: Performed By: #### L 100.0100, L501.4021, L500.2500 ####[facility] [address] [place], [address] Nucleated RBC (Bld) [#/Vol] 0.4 10*3/uL Normal 0-5 [facility] Comment on above: Performed By: #### L 100.0100, L501.4021, L500.2500 ####[facility] [address] [place], [address] Platelet mean volume (Bld) [Entitic vol] 9.0 fL Normal 6.2-12.0 [facility] Comment on above: Performed By: #### L 100.0100, L501.4021, L500.2500 ####[facility] [address] [place], [address] Platelets (Bld) [#/Vol] 200 10*3/uL Normal 150-450 [facility] Comment on above: Performed By: #### L 100.0100, L501.4021, L500.2500 ####[facility] [address] [place], [address] RBC (Bld) [#/Vol] 4.17 10*6/uL Low 4.2-5.4 [facility] Comment on above: Performed By: #### L 100.0100, L501.4021, L500.2500 ####[facility] [address] [place], [address] RDW SD 51.7 fl High 35.1-43.9 [facility] Comment on above: Performed By: #### L 100.0100, L501.4021, L500.2500 ####[facility] [address] [place], [address] WBC (Bld) [#/Vol] 9.6 10*3/uL Normal 4.4-11.0 [facility] Comment on above: Performed By: #### L 100.0100, L501.4021, L500.2500 ####[facility] [address] [place], [address] CNOVon 11-29-2024 CNOV Office Visit (FAMPWS ) DERRELL GERMAN ([id number]) 1955 F Date Time Provider Department 11/29/24 2:20 PM [facility] During your visit today, we recorded the following information about you: Pulse Respiration Blood pressure Weight 82/minute 24/minute 136/62 143.8 kg Willard Henriquez MD 11/29/2024 2:55 PM Signed Chief Complaint Patient presents with: F/U 6 months HPI Derrell German is a 69 year old female who presents here today for 6 month follow up. 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 Patient has gained 75 pounds since the steroids. Patient also saw Dr. Florez yesterday and they are doing overnight 02 next week; 02 during day walking test not until january 2025. Patient has been SOB and having chest pain at night; is having some discomfort. Very MIRAMONTES and positive for orthopnea. Past medical history, appointments, medications, allergies reviewed. Previous Medical History PAST MEDICAL HISTORY Diagnosis Date Advance directive discussed with patient 04/06/2022 Discussed 04/2022 Allergic rhinitis 02/10/2011 ASHD (arteriosclerotic heart disease) 03/08/[address] Hudson Asthma Dr. 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 History of left heart catheterization HEART CATH X2 STENTS X 3 NASH GARCIA Hyperlipidemia, mixed 06/30/2015 DR HUDSON, Hypertension, essential 06/30/2015 NASH GARCIA CARD- controlled with medication Joint pain PAIN MANAGMENT WILLARD CRUZ MELISSA Living will on file 04/06/2022 DPA: Ever () Lumbar radiculopathy 04/28/2020 R L4 radiculopathy 04/2020 Medicare annual wellness visit, initial 04/06/2022 Medicare part B: 11/03/2019 Last done: 04/06/2022 Mild intermittent asthma without complication 02/10/2011 DENIES PROBLEMS, DENIES INHALERS Morbid obesity (HCC) 01/10/2012 NATALIE (obstructive sleep apnea) 09/10/2019 On BiPAP and sees VENTURA Schaffer Osteoarthritis of both knees 02/02/2017 Other intervertebral disc displacement, lumbosacral region 02/23/2023 PONV (postoperative nausea and vomiting) Postherpetic neuralgia 03/14/2014 Right mid-trunk area. 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 Psoriasis 10/23/2017 Rash bilateral forearms Rosacea 04/19/2013 Shingles 2014 Spinal stenosis of lumbar region without neurogenic claudication 03/19/2021 DR SANDOVAL FOLLOWING Spondylolisthesis of lumbar region 02/23/2023 Stage 3a chronic kidney disease (HCC) 03/19/2021 GERALD CALHOUN AND WILLARD HARRINGTON Uncontrolled type 2 diabetes mellitus with hyperglycemia ([facility]) 12/24/2019 Seeing GERALD Marte Uses roller walker Vitamin D deficiency 03/19/2021 Wears glasses reading Previous Surgical History PAST SURGICAL HISTORY Procedure Laterality Date ANESTH, HYSTERECTOMY 2000 ANESTHESIA NOSE AND ACCESSORY SINUSES NOS 1996 CHOLECYSTECTOMY 1989 COLONOSCOPY FLX DX W/COLLJ SPEC WHEN PFRMD 04/18/2011 X3 HEART CATHETERIZATION 2002 HEART CATH X2 2002 AND 2019 STENTS X3 2019 PAST SURGICAL HISTORY OF L. knee PAST SURGICAL HISTORY OF kidney stones PAST SURGICAL HISTORY OF Right 2007 Knee PAST SURGICAL HISTORY OF NERVE STIMULATOR AND REMOVAL TOLLEY ORTH REMV CATARACT EXTRACAP,INSERT LENS Bilateral Rt 08/2019, Lt 11/2019 STRESS TEST ADENOSINE 05/11/2013 THYROIDECTOMY TOTAL/COMPLETE 2000 TONSILLECTOMY HX 1963 Family History FAMILY HISTORY Problem Relation Age of Onset Diabetes Mother Thyroid Mother Diabetes Father Diabetes Paternal Aunt Patient Allergies ALLERGIES Allergen Reactions Amlodipine Swelling Diflucan [Fluconazo* Hives Diphth,Pertus(Acell* Hives Actos [Pioglitazone* Other: See Comments Edema BLE AND OLGA HANDS Bactrim [Sulfametho* Hives HIVES Betadine [Povidone-* Anaphylaxis SEVERE ALLERGY TO IODINE AND BETADINE Fish Anaphylaxis ALL FISH Iodine Anaphylaxis IV contrast Lipitor [Atorvastat* Rash, Itching Metformin Diarrhea, GI Upset [place] Anaphylaxis Penicillins Unknown NOT SURE A CHILD Sulfa (Sulfonamide * Swelling SWELLING AND HIVES Current Medications Current Outpatient Medications on File Prior to Visit Medication Sig montelukast (SINGULAIR) 10 mg tablet Take 1 tablet by mouth daily at bedtime. metoprolol succinate ER (TOPROL XL) 25 mg 24 hr tablet Take 1 tablet b (more content not included)... Normal [facility] CTA Chest W/WO Contraston CTA Chest W/WO Contrast Normal [facility] Calcium [Mass/Vol]Ordered By : Glen Vital on 11-29-2024 Serum or plasma calcium measurement (mass/volume) 9.2 mg/dL 7.6-11.0 [facility] Carbon dioxide, total [Moles /volume] in Central venous bloodOrdered By: Glen Vital on 11-29-2024 CO2 [Moles/Vol] 12.3 mmol/L Low 21.0-32.0 [facility] Carbon dioxide, total [Moles/volume] in Central venous blood 12.3 mmol/L Low 21.0-32.0 [facility] Chest PA and Lateralon 11-29 Chest PA and Lateral Normal [facility] Chloride assayOrdered By: Robert Vital on 11-29-2024 Chloride [Moles/Vol] 104 mmol/L 98-108 [facility] Chloride assay 104 mmol/L 98-108 [facility] Creatinine [Mass/Vol]Ordered By: Glen Vital on 11-29-2024 Serum creatinine measurement (mass/volume) 1.20 mg/dL 0.70-1.20 [facility] D-Dimer Quantitative (DVT/PE )on 11-29-2024 D-DIMER QUANT 1.81 FEU/ug/m Invalid Interpretation Code 0.27-0.49 [facility] Comment on above: Result Comment: D-Di renny ELEVATED (>0.49): Additional studies and clinicalassessments are indicated to conclude diagnosis of:Deep Vein Thrombosis (DVT) or Pulmonary Embolism (PE)CRITICAL VALUE CALLED TO ETEAL11/29/24 1813 Marquita Mathur.RESULTS READ BACK BY SAME. Performed By: #### L 300.8000 ####[facility] [address] [place], [place], [address] D-dimer measurement for deep venous thrombosisOrdered By: Glen Vital on 11-29-2024 D-Dimer Quantitative (PE/DVT) 1.81 FEU/ug/m High 0.27-0.49 [facility] Comment on above: D-Dimer ELEVATED (>0 .49): Additional studies and clinicalassessments are indicated to conclude diagnosis of:Deep Vein Thrombosis (DVT) or Pulmonary Embolism (PE)CRITICAL VALUE CALLED TO ETEAL11/29/24 1813 Marquita Mathur.RESULTS READ BACK BY SAME. D-dimer measurement for deep venous thrombosis 1.81 FEU/ug/m High 0.27-0.49 [facility] Emergency Department Summary on 11-29-2024 Emergency Department Summary Normal [facility] Eosinophil percentageOrdered By: Glen Vital on 11-29-2024 Eosinophils/100 WBC (Bld) 0.8 % 0-5 [facility] Eosinophil percentage 0.8 % 0-5 [facility] Erythrocyte distribution wid th (RBC) [Ratio]Ordered By: Glen Vital on 11-29-2024 Erythrocyte distribution width ratio 16.6 % High 11.6-14.6 [facility] Erythrocyte distribution width standard deviation 51.7 fl High 35.1-43.9 [facility] Erythrocyte distribution wid th ratioOrdered By: Glen Vital on 11-29-2024 Erythrocyte distribution width (RBC) [Ratio] 16.6 % High 11.6-14.6 [facility] Erythrocyte distribution wid th standard deviationOrdered By: Glen Vital on 11-29-2024 Erythrocyte distribution width (RBC) [Entitic vol] 51.7 fL High 35.1-43.9 [facility] Erythrocyte distribution width (RBC) [Ratio] 51.7 fl High 35.1-43.9 [facility] GFR/1.73 sq M.predicted keenan g non-blacks MDRD (S/P/Bld) [Vol rate/Area]Ordered By: Glen Vital on 11-29-2024 Estimated GFR (MDRD) Non-Af Amer 49 Low >60 [facility] Comment on above: mL/min/1.73m2 CKD-EP I Creatinine Equation (2020) Glomerular filtration rate (GFR) estimation/1.73 sq m using serum, plasma, or whole b 49 Low >60 [facility] Glomerular filtration rate ( GFR) estimation/1.73 sq m using serum, plasma, or whole bOrdered By: Glen Vital on 11-29-2024 GFR/1.73 sq M.predicted among non-blacks MDRD (S/P/Bld) [Vol rate/Area] 49 mL/min/{1.73_m2} Low >60 [facility] Glucose [Mass/Vol]Ordered By : Glen Vital on 11-29-2024 Serum glucose measurement (mass/volume) 178 mg/dL High 70-99 [facility] Hematocrit Auto (Bld) [Volum e fraction]Ordered By: Glen Vital on 11-29-2024 Hematocrit (Bld) [Volume fraction] 35.7 % Low 37-47 [facility] Automated blood hematocrit (percentage) 35.7 % Low 37-47 [facility] Hemoglobin measurementOrdere d By: Glen Vital on 11-29-2024 Hemoglobin (Bld) [Mass/Vol] 11.0 g/dL Low 12.0-15.0 [facility] Hemoglobin measurement 11.0 g/dL Low 12.0-15.0 [facility] Immature granulocytes/100 WB C Auto (Bld)Ordered By: Glen Vital on 11-29-2024 Immature granulocytes/100 WBC (Bld) 2.300 % High 0.0-0.9 [facility] Comment on above: IG% - Immature Granu locytes (promyelocytes, myelocytes and metamyelocytes) > 1% indicates that a LEFT SHIFT is Present. Automated immature granulocyte percentage 2.300 % High 0.0-0.9 [facility] L499.0042on 11-29-2024 Trop T High Sen Normal <=14 [facility] Comment on above: Result Comment: Canc elled via OM: MD Ordered Performed By: #### L 499.0042 ####[facility] [address] [place], [address] L499.0043on 11-29-2024 Trop T High Sen Normal <=14 [facility] Comment on above: Result Comment: Canc elled via OM: MD Ordered Performed By: #### L 499.0043 ####[facility] [address] [place], [address] L501.4021on 11-29-2024 Trop T High Sen 23 ng/L High <=14 [facility] Comment on above: Performed By: #### L 100.0100, L501.4021, L500.2500 ####[facility] [address] [place], [address] L503.7505on 11-29-2024 Natriuretic peptide B (Bld) [Mass/Vol] 277 pg/mL Normal <=900 [facility] Comment on above: Result Comment: Hear t Failure Unlikely: < 300 pg/mLHeart Failure Likely< 50 Years: > 450 pg/mL50-75 Years: > 900 pg/mL>75 Years: > 1800 pg/mL Performed By: #### L 503.7505 ####[facility] [address] [place], [address] Laboratory - Chemistry and C hemistry - challengeOrdered By: Glen Vital on 11-29-2024 Natriuretic peptide B (Bld) [Mass/Vol] 277 pg/mL <900 [facility] Comment on above: Heart Failure Unlike ly: < 300 pg/mLHeart Failure Likely< 50 Years: > 450 pg/mL50-75 Years: > 900 pg/mL>75 Years: > 1800 pg/mL Lymphocytes Auto (Unsp spec) [#/Vol]Ordered By: Glen Vital on 11-29-2024 Lymphocytes (Bld) [#/Vol] 0.97 10*3/uL 0.83-4.51 [facility] Absolute lymphocyte count 0.97 X10^3/uL 0.83-4.51 [facility] Lymphocytes/100 WBC Auto (Un sp spec)Ordered By: Glen Vital on 11-29-2024 Lymphocytes/100 WBC (Bld) 10.1 % Low 19-41 [facility] Automated lymphocyte count as percentage of total leukocytes 10.1 % Low 19-41 [facility] MCV (RBC) [Entitic vol]Order ed By: Glen Vital on 11-29-2024 MCV (mean corpuscular volume) determination 85.6 fL 81-99 [facility] MCV (mean corpuscular volume ) determinationOrdered By: Glen Vital on 11-29-2024 MCV (RBC) [Entitic vol] 85.6 fL 81-[address] [facility] Mean corpuscular hemoglobin (MCH) determinationOrdered By: Glen Vital on 11-29-2024 MCH (RBC) [Entitic mass] 26.4 pg Low 27.0-32.0 [facility] Mean corpuscular hemoglobin (MCH) determination 26.4 pg Low 27.0-32.0 [facility] Mean corpuscular hemoglobin concentration (MCHC) determinationOrdered By: Glen Vital on 11-29-2024 MCHC (RBC) [Mass/Vol] 30.8 g/dL Low 32-36 [facility] Mean corpuscular hemoglobin concentration (MCHC) determination 30.8 g/dL Low 32-36 [facility] Mean platelet volume determi nationOrdered By: Glen Vital on 11-29-2024 Platelet mean volume (Bld) [Entitic vol] 9.0 fL 6.2-12.0 [facility] Mean platelet volume determination 9.0 fl 6.2-12.0 [facility] Monocyte percentageOrdered B y: Glen Vital on 11-29-2024 Monocytes/100 WBC (Bld) 6.9 % 0-10 [facility] Monocyte percentage 6.9 % 0-10 [facility] Neutrophil percentageOrdered By: Glen Vital on 11-29-2024 Neutrophils/100 WBC (Bld) 79.4 % High 47-70 [facility] Neutrophil percentage 79.4 % High 47-70 [facility] No Panel InformationOrdered By: Glen Vital on 11-29-2024 Troponin T High Sensitivity 23 ng/L High <14 [facility] 23 ng/L High <14 [facility] 277 pg/mL <900 [facility] Nucleated red blood cell per centageOrdered By: Glen Vital on 11-29-2024 Nucleated RBC/100 WBC (Bld) [Ratio] 0.4 % 0-5 [facility] Nucleated red blood cell percentage 0.4 % 0-5 [facility] Platelet countOrdered By: Robert Vital on 11-29-2024 Platelets (Bld) [#/Vol] 200 10*3/uL 150-450 [facility] Platelet count 200 K/mm3 150-450 [facility] Potassium (Unsp spec) [Mass/ Vol]Ordered By: Glen Vital on 11-29-2024 Potassium [Moles/Vol] 3.9 mmol/L 3.3-5.1 [facility] Potassium measurement (mass/volume) 3.9 mmol/L 3.3-5.1 [facility] Potassium measurement (mass/ volume)Ordered By: Glen Vital on 11-29-2024 Potassium (Unsp spec) [Mass/Vol] 3.9 mmol/L 3.3-5.1 [facility] RBC Auto (Bld) [#/Vol]Ordere d By: Glen Vital on 11-29-2024 RBC (Bld) [#/Vol] 4.17 10*6/uL Low 4.2-5.4 [facility] Automated blood erythrocyte count 4.17 M/mm3 Low 4.2-5.4 [facility] Serum creatinine measurement (mass/volume)Ordered By: Glen Vital on 11-29-2024 Creatinine [Mass/Vol] 1.20 mg/dL 0.70-1.20 [facility] Serum glucose measurement (m ass/volume)Ordered By: Glen Vital on 11-29-2024 Glucose [Mass/Vol] 178 mg/dL High 70-99 [facility] Serum or plasma calcium christi urement (mass/volume)Ordered By: Glen Vital on 11-29-2024 Calcium [Mass/Vol] 9.2 mg/dL 7.6-11.0 [facility] Serum or plasma urea nitroge n measurement (mass/volume)Ordered By: Glen Vital on 11-29-2024 Urea nitrogen [Mass/Vol] 9 mg/dL 12-21 [facility] Sodium levelOrdered By: Glen Vital on 11-29-2024 Sodium [Moles/Vol] 141 mmol/L 133-145 [facility] Sodium level 141 mmol/L 133-145 [facility] Urea nitrogen [Mass/Vol]Orde red By: Glen Vital on 11-29-2024 Serum or plasma urea nitrogen measurement (mass/volume) 9 mg/dL 12-21 [facility] White blood cell (WBC) count Ordered By: Glen Vital on 11-29-2024 WBC (Bld) [#/Vol] 9.6 10*3/uL 4.4-11.0 [facility] White blood cell (WBC) count 9.6 K/mm3 4.4-11.0 [facility] Pulmonary Visit Reporton Pulmonary Visit Report Normal [facility] CBC W Auto Differential pane l (Bld)on 11-21-2024 Basophils (Bld) [#/Vol] 0.07 10*3/uL Normal <0.11 [facility] Comment on above: Order Comment: Speci men Type: BLOOD SPECIMENOrdering Facility: [facility] Address: [address] [place] [address] Performed By: #### 5 7021-8 ####[facility] LABCLIA [id number] [place] [address] [place] Basophils/100 WBC (Bld) 0.6 % Normal C [facility] Comment on above: Order Comment: Speci men Type: BLOOD SPECIMENOrdering Facility: [facility] Address: [address] [place] [address] Performed By: #### 5 7021-8 ####[facility] LABCLIA [id number] [place] [address] [place] Differential cell count method Nom (Bld) Auto Normal [facility] Comment on above: Order Comment: Speci men Type: BLOOD SPECIMENOrdering Facility: [facility] Address: [address] [place] [address] Performed By: #### 5 7021-8 ####[facility] LABIA [id number] [place] [address] [place] Eosinophils (Bld) [#/Vol] 0.14 10*3/uL Normal <0.46 [facility] Comment on above: Order Comment: Speci men Type: BLOOD SPECIMENOrdering Facility: [facility] Address: [address] [place] [address] Performed By: #### 5 7021-8 ####[facility] LABIA [id number] [place] [address] [place] Eosinophils/100 WBC (Bld) 1.3 % Normal [facility] Comment on above: Order Comment: Speci men Type: BLOOD SPECIMENOrdering Facility: [facility] Address: [address] [place] [address] Performed By: #### 5 7021-8 ####[facility] LABIA [id number] [place] [address] [place] Erythrocyte distribution width (RBC) [Ratio] 16.6 % High 11.5-15.0 [facility] Comment on above: Order Comment: Speci men Type: BLOOD SPECIMENOrdering Facility: [facility] Address: [address] [place] [address] Performed By: #### 5 7021-8 ####[facility] LABIA [id number] [place] [address] [place] Hematocrit (Bld) [Volume fraction] 39.6 % Normal 36.0-46.0 [facility] Comment on above: Order Comment: Speci men Type: BLOOD SPECIMENOrdering Facility: [facility] Address: [address] [place] [address] Performed By: #### 5 7021-8 ####[facility] LABCLIA [id number] [place] [address] [place] Hemoglobin (Bld) [Mass/Vol] 11.4 g/dL Low 11.5-15.5 [facility] Comment on above: Order Comment: Speci men Type: BLOOD SPECIMENOrdering Facility: [facility] Address: [address] [place] [address] Performed By: #### 5 7021-8 ####[facility] LABCLIA [id number] [place] [address] [place] Immature granulocytes (Bld) [#/Vol] 0.21 10*3/uL High <0.10 [facility] Comment on above: Order Comment: Speci men Type: BLOOD SPECIMENOrdering Facility: [facility] Address: [address] [place] [address] Performed By: #### 5 7021-8 ####[facility] LABIA [id number] [place] [address] [place] Immature granulocytes/100 WBC (Bld) 1.9 % Normal [facility] Comment on above: Order Comment: Speci men Type: BLOOD SPECIMENOrdering Facility: [facility] Address: [address] [place] [address] Performed By: #### 5 7021-8 ####[facility] LABIA [id number] [place] [address] [place] Lymphocytes (Bld) [#/Vol] 1.39 10*3/uL Normal 1.00-4.00 [facility] Comment on above: Order Comment: Speci men Type: BLOOD SPECIMENOrdering Facility: [facility] Address: [address] [place] [address] Performed By: #### 5 7021-8 ####[facility] LABIA [id number] [place] [address] [place] Lymphocytes/100 WBC (Bld) 12.4 % Normal [facility] Comment on above: Order Comment: Speci men Type: BLOOD SPECIMENOrdering Facility: [facility] Address: [address] [place] [address] Performed By: #### 5 7021-8 ####[facility] LABIA [id number] [place] [address] [place] MCH (RBC) [Entitic mass] 25.6 pg Low 26.0-34.0 [facility] Comment on above: Order Comment: Speci men Type: BLOOD SPECIMENOrdering Facility: [facility] Address: [address] [place] [address] Performed By: #### 5 7021-8 ####[facility] LABIA [id number] [place] [address] [place] MCHC (RBC) [Mass/Vol] 28.8 g/dL Low 30.5-36.0 [facility] Comment on above: Order Comment: Speci men Type: BLOOD SPECIMENOrdering Facility: [facility] Address: [address] [place] [address] Performed By: #### 5 7021-8 ####[facility] LABIA [id number] [place] [address] [place] MCV (RBC) [Entitic vol] 89.0 fL Normal 80.0-100.[address] [facility] Comment on above: Order Comment: Speci men Type: BLOOD SPECIMENOrdering Facility: [facility] Address: [address] [place] [address] Performed By: #### 5 7021-8 ####[facility] LABIA [id number] [place] [address] [place] Monocytes (Bld) [#/Vol] 0.73 10*3/uL Normal <0.87 [facility] Comment on above: Order Comment: Speci men Type: BLOOD SPECIMENOrdering Facility: [facility] Address: [address] [place] [address] Performed By: #### 5 7021-8 ####[facility] LABCLIA [id number] [address] [place] [address] [place] Monocytes/100 WBC (Bld) 6.5 % Normal [facility] Comment on above: Order Comment: Speci men Type: BLOOD SPECIMENOrdering Facility: [facility] Address: [address] [place] [address] Performed By: #### 5 7021-8 ####[facility] LABIA [id number] [place] [address] [place] Neutrophils (Bld) [#/Vol] 8.64 10*3/uL High 1.45-7.50 [facility] Comment on above: Order Comment: Speci men Type: BLOOD SPECIMENOrdering Facility: [facility] Address: [address] [place] [address] Performed By: #### 5 7021-8 ####[facility] LABIA [id number] [place] [address] [place] Neutrophils/100 WBC (Bld) 77.3 % Normal [facility] Comment on above: Order Comment: Speci men Type: BLOOD SPECIMENOrdering Facility: [facility] Address: [address] [place] [address] Performed By: #### 5 7021-8 ####[facility] LABIA [id number] [place] [id number] [place] Nucleated RBC (Bld) [#/Vol] 0.03 10*3/uL High <0.01 [facility] Comment on above: Order Comment: Speci men Type: BLOOD SPECIMENOrdering Facility: [facility] Address: [address] [place] [address] Performed By: #### 5 7021-8 ####[facility] LABIA [id number] [place] [id number] [place] Nucleated RBC/100 WBC (Bld) [Ratio] 0.3 /100 WBC Normal [facility] Comment on above: Order Comment: Speci men Type: BLOOD SPECIMENOrdering Facility: [facility] Address: [address] [place] [address] Performed By: #### 5 7021-8 ####[facility] LABCLIA [id number] [place] [address] [place] Platelet mean volume (Bld) [Entitic vol] 9.6 fL Normal 9.0-12.7 [facility] Comment on above: Order Comment: Speci men Type: BLOOD SPECIMENOrdering Facility: [facility] Address: [address] [place] [address] Performed By: #### 5 7021-8 ####[facility] LABCLIA [id number] [place] [address] [place] Platelets (Bld) [#/Vol] 234 10*3/uL Normal 150-400 [facility] Comment on above: Order Comment: Speci men Type: BLOOD SPECIMENOrdering Facility: [facility] Address: [address] [place] [address] Performed By: #### 5 7021-8 ####[facility] LABIA [id number] [place] [address] [place] RBC (Bld) [#/Vol] 4.45 10*6/uL Normal 3.90-5.20 [facility] Comment on above: Order Comment: Speci men Type: BLOOD SPECIMENOrdering Facility: [facility] Address: [address] [place] [address] Performed By: #### 5 7021-8 ####[facility] LABCLIA [id number] [place] [address] [place] WBC (Bld) [#/Vol] 11.18 10*3/uL High 3.70-11.00 [facility] Comment on above: Order Comment: Speci men Type: BLOOD SPECIMENOrdering Facility: [facility] Address: [address] [place] [address] Performed By: #### 5 7021-8 ####[facility] LABCLIA [id number] [address] [place] [address] [place] CNPNon 11-21-2024 CNPN Telephone (FAMPWS) DERRELL GERMAN ([id number]) 1955 F Date Time Provider Department 11/21/24 [facility] During your visit today, we recorded the following information about you: Trish Garcia RN 11/21/2024 9:22 AM Signed Patient calls and states that she has 6 month follow up with provider on 11/29/2024. Patient asking for labs to be placed prior to appointment so that she can get these done. Patient did have HbgA1C done 0n 11/11/2024 which was or ordered by Dr. Marques so that lab does not need to be ordered. Please review and advise, SOLOMON Mcbride Jeffrey A, MD 11/21/2024 9:28 AM Signed Let patient know orders for non-fasting blood work placed. Abby Cox, SOLOMON 11/21/2024 10:31 AM Signed Pt called and is notified of providers message. Pt voices understanding and states she already has them scheduled. Abby Cox RN Allergies As of Date: 11/21/2024 Noted Allergy Reaction AMLODIPINE 02/16/2023 7 - Swelling DIFLUCAN (FLUCONAZOLE) 07/06/2015 4 - Hives DIPHTH,PERTUS(ACELL),TE TANUS 02/16/2023 4 - Hives ACTOS (PIOGLITAZONE HCL) 07/31/2007 14 - Other: See Comments Comments: Edema BLE AND OLGA HANDS BACTRIM (SULFAMETHOXAZOLE-TRIME TH*08/18/2005 4 - Hives Comments: HIVES BETADINE (POVIDONE-IODINE) 08/18/2005 10 - Anaphylaxis Comments: SEVERE ALLERGY TO IODINE AND BETADINE FISH 08/18/2005 10 - Anaphylaxis Comments: ALL FISH IODINE 08/18/2005 10 - Anaphylaxis Comments: IV contrast LIPITOR (ATORVASTATIN CALCIUM) 03/01/2010 2 - Rash 9 - Itching METFORMIN 03/14/2014 6 - Diarrhea 8 - GI Upset ORANGE 08/18/2005 10 - Anaphylaxis PENICILLINS 08/18/2005 16 - Unknown Comments: NOT SURE A CHILD SULFA (SULFONAMIDE ANTIBIOTICS) 12/02/2005 7 - Swelling Comments: SWELLING AND HIVES Date Reviewed: 05/31/2024 Reviewed by: Marcie Sharma MA - Fully Assessed Reason for Visit: Lab Orders [1688] Primary Visit Diagnosis:Uncontrolled type 2 diabetes mellitus with hyperglycemia (HCC) [E11.65] Other Visit Diagnoses:Postsurgical hypothyroidism [E89.0] Hyperlipidemia, mixed [E78.2] Type 2 diabetes mellitus with stage 3a chronic kidney disease, with long-term current use of insulin (HCC) [E11.22, N18.31, Z79.4] Hypertension, essential [I10] Stage 3a chronic kidney disease (HCC) [N18.31] Order(s):THYROID STIMULATING HORMONE [SQTSH] Order #: [id number] FUTURE LIPID PANEL, NONFASTING [SQLIPNF] Order #: [id number] FUTURE COMPREHENSIVE METABOLIC PANEL [SQCMP] Order #: [id number] FUTURE COMPLETE BLOOD COUNT AND DIFFERENTIAL [SQCBCDIF] Order #: [id number] FUTURE Prescriptions as of 11/21/2024 - montelukast (SINGULAIR) 10 mg tablet Take 1 tablet by mouth daily at bedtime. - metoprolol succinate ER (TOPROL XL) 25 mg 24 hr tablet Take 1 tablet by mouth every morning. - potassium chloride (K-TAB) 10 mEq tablet Take 2 tablets by mouth two times a day. - levothyroxine (SYNTHROID) 175 mcg tablet Take 1 tablet by mouth once daily. M-T-TH-F-Sa and none on Wed and Sun. Take on empty stomach. For Thyroid. Per endo: Dr. Marques - Cholecalciferol, Vitamin D3, 125 mcg (5,000 unit) cap Take 1 capsule by mouth every morning. Last dose 02/07/23 - insulin regular human, CONCENTRATED 500 UNIT/ML, (HUMULIN R) 500 unit/mL soln 150 units before breakfast 180 units before lunch 150 units before dinner 80-100 units at bedtime Depends on BS tests - gabapentin (NEURONTIN) 100 mg capsule 300 mg by mouth three times/day - rosuvastatin (CRESTOR) 20 mg tablet Take 1 tablet by mouth once daily. - tocilizumab (ACTEMRA) 162 mg/0.9 mL subcutaneous injection Inject 162 mg subcutaneously one time a week. - neomycin sulfate (NEOMYCIN 1%) Irrigate 500 mL as instructed one time only. - clopidogrel (PLAVIX) 75 mg tablet Take 1 tablet by mouth once daily. - enoxaparin (LOVENOX) 40 mg/0.4 mL 40 mg sub Q twice a day. - famotidine (PEPCID) 20 mg tablet Take 1 tablet by mouth two times a day. - clobetasol (TEMOVATE) 0.05 % ointment Apply to affected area two times a day. - spironolactone (ALDACTONE) 25 mg tablet Take 1 tablet by mouth twice daily. - polyethylene glycol 3350 17 gram packet Take 1 Packet by mouth once daily. Dissolve dose in 4 - 8 ounces of liquid and take as directed. - acetaminophen (TYLENOL) 500 mg tablet Take 2 tablets by mouth every 6 hours as needed for pain. - bisacodyl EC (DULCOLAX) 5 mg EC tablet Take 2 tablets by mouth once daily as needed for constipation. - polyethylene glycol 3350 17 gram packet Take 1 Packet by mouth once daily as needed. Dissolve dose in 4 - 8 ounces of liquid and take as directed. - calcium carbonate (ANTACID CALCIUM ORAL) Take by mouth as needed. Last dose 02/09 - melatonin 10 mg cap Take 5-10 mg by mouth daily at bedtime. - BIPAP daily at bedtime. - dapagliflozin (FARXIGA) 10 mg tablet Take 10 mg by mouth daily (more content not included)... Normal [facility] Comprehensive metabolic 2000 panelon 11-21-2024 Albumin [Mass/Vol] 4.1 g/dL Normal 3.9-4.9 [facility] Comment on above: Order Comment: Speci men Type: BLOOD SPECIMENOrdering Facility: [facility] Address: [address] [place] [address] Performed By: #### L IPNF, 3, ####[facility] LABCLIA [id number] [place] [id number] [place] ALP [Catalytic activity/Vol] 57 U/L Normal 34-123 [facility] Comment on above: Order Comment: Speci men Type: BLOOD SPECIMENOrdering Facility: [facility] Address: [address] [place] [address] Performed By: #### L IPNF, 3, ####[facility] LABCLIA [id number] [place] [address] [place] ALT [Catalytic activity/Vol] 22 U/L Normal 7-38 [facility] Comment on above: Order Comment: Speci men Type: BLOOD SPECIMENOrdering Facility: [facility] Address: [address] [place] [address] Performed By: #### L IPNF, 3, ####[facility] LABCLIA [id number] [place] [id number] [place] Anion gap [Moles/Vol] 19 mmol/L High 8-15 [facility] Comment on above: Order Comment: Speci men Type: BLOOD SPECIMENOrdering Facility: [facility] Address: [address] [place] [address] Performed By: #### L IPNF, 3, ####[facility] LABCLIA [id number] [place] [id number] [place] AST [Catalytic activity/Vol] 29 U/L Normal 13-35 [facility] Comment on above: Order Comment: Speci men Type: BLOOD SPECIMENOrdering Facility: [facility] Address: [address] [place] [address] Performed By: #### L IPNF, 3, ####[facility] LABCLIA [id number] [address] [address] [place] Bilirubin [Mass/Vol] 0.7 mg/dL Normal 0.2-1.3 [facility] Comment on above: Order Comment: Speci men Type: BLOOD SPECIMENOrdering Facility: [facility] Address: [address] [place] [address] Performed By: #### L IPNF, 3, ####[facility] LABCLIA [id number] [address] [address] [place] Calcium [Mass/Vol] 9.9 mg/dL Normal 8.5-10.2 [facility] Comment on above: Order Comment: Speci men Type: BLOOD SPECIMENOrdering Facility: [facility] Address: [address] [place], [place] [address] Performed By: #### L IPNF, 3015-11, ####[facility] LABCLIA [id number] [address] [address] [place] Chloride [Moles/Vol] 102 mmol/L Normal 98-107 [facility] Comment on above: Order Comment: Speci men Type: BLOOD SPECIMENOrdering Facility: [facility] Address: [address] [place] [address] Performed By: #### L IPNF, 3015-11, ####[facility] LABCLIA [id number] [address] [address] [place] CO2 [Moles/Vol] 24 mmol/L Normal 22-30 [facility] Comment on above: Order Comment: Speci men Type: BLOOD SPECIMENOrdering Facility: [facility] Address: [address] [place] [address] Performed By: #### L IPNF, 3, ####[facility] LABCLIA [id number] [address] [address] [place] Creatinine [Mass/Vol] 1.24 mg/dL High 0.58-0.96 [facility] Comment on above: Order Comment: Oleg najera Type: BLOOD SPECIMENOrdering Facility: [facility] Address: [address] [place] [address] Performed By: #### L MORENA, 3016-3, 46184-0 ####[facility] LABIA [id number] [address] [address] [place] Creatinine and Glomerular filtration rate.predicted panel (S/P/Bld) 47 mL/min/1.73m??? Low >=60 [facility] Comment on above: Order Comment: Oleg najera Type: BLOOD SPECIMENOrdering Facility: [facility] Address: [address] [place] [address] Result Comment: Poornima mated Glomerular Filtration Rate (eGFR) is calculated using the 2020 CKD-EPI creatinine equation. This equation utilizes serum creatinine, sex, and age as parameters. The creatinine assay has traceable calibration to isotope dilution-mass spectrometry. Refer to KDIGO guidelines for clinical interpretation. In patients with unstable renal function, e.g. those with acute kidney injury, the eGFR may not accurately reflect actual GFR. Performed By: #### L MORENA, 3016-3, 58491-7 ####[facility] LABIA [id number] [address] [address] [place] Glucose [Mass/Vol] 107 mg/dL High 74-99 [facility] Comment on above: Order Comment: Specadams dania Type: BLOOD SPECIMENOrdering Facility: [facility] Address: [address] [place] [address] Result Comment: The [place] Diabetes Association (ADA) provides guidance for cutoff values for fasting glucose and random glucose. The ADA defines fasting as no caloric intake for at least 8 hours. Fasting plasma glucose results between 100 to 125 mg/dL indicate increased risk for diabetes (prediabetes). Fasting plasma glucose results greater than or equal to 126 mg/dL meet the criteria for diagnosis of diabetes. In the absence of unequivocal hyperglycemia, results should be confirmed by repeat testing. In a patient with classic symptoms of hyperglycemia or hyperglycemic crisis, random plasma glucose results greater than or equal to 200 mg/dL meet the criteria for diagnosis of diabetes. Reference: Standards of Medical Care in Diabetes 2016, [place] Diabetes Association. Diabetes Care. 2016.39(Suppl 1). Performed By: #### L IPNF, 3015-3, ####[facility] LABCLIA [id number] [place] [address] [place] Potassium [Moles/Vol] 3.6 mmol/L Low 3.7-5.1 [facility] Comment on above: Order Comment: Speci men Type: BLOOD SPECIMENOrdering Facility: [facility] Address: [address] [place] [address] Performed By: #### L IPNF, 3015-11, ####[facility] LABCLIA [id number] [place] [address] [place] Protein [Mass/Vol] 6.3 g/dL Normal 6.3-8.0 [facility] Comment on above: Order Comment: Speci men Type: BLOOD SPECIMENOrdering Facility: [facility] Address: [address] [place] [address] Performed By: #### L IPNF, 3015-11, ####[facility] LABCLIA [id number] [place] [address] [place] Sodium [Moles/Vol] 145 mmol/L High 136-144 [facility] Comment on above: Order Comment: Speci men Type: BLOOD SPECIMENOrdering Facility: [facility] Address: [address] [place] [address] Performed By: #### L IPNF, 3015-11, ####[facility] LABCLIA [id number] [address] [address] [place] Urea nitrogen [Mass/Vol] 9 mg/dL Normal 7-21 [facility] Comment on above: Order Comment: Speci men Type: BLOOD SPECIMENOrdering Facility: [facility] Address: [address] [place] [address] Performed By: #### L IPNF, 3016-3, 47064-9 ####[facility] LABCLIA [id number] [address] [address] [place] LIPID PANEL, NONFASTINGon Cholesterol [Mass/Vol] 127 mg/dL Normal <200 [facility] Comment on above: Order Comment: Speci men Type: BLOOD SPECIMENOrdering Facility: [facility] Address: [address] [place] [address] Result Comment: <200 mg/dL, Desirable 200-239 mg/dL, Borderline high >239 mg/dL, High Performed By: #### L IPERVIN, 6-3, ####[facility] LABCLIA [id number] [place] [address] [place] HDL CHOLESTEROL, NF 56 mg/dL Normal >39 [facility] Comment on above: Order Comment: Speci men Type: BLOOD SPECIMENOrdering Facility: [facility] Address: [address] [place] [address] Result Comment: 40-5 9 mg/dL, Acceptable >59 mg/dL, High: Negative risk factor for coronary heart disease <40 mg/dL, Low: Positive risk factor for coronary heart disease Performed By: #### L IPNF, 6-3, 05891-7 ####[facility] LABCLIA [id number] [place] [id number] [place] LDL CHOLESTEROL, NF 38 mg/dL Normal <100 [facility] Comment on above: Order Comment: Speci men Type: BLOOD SPECIMENOrdering Facility: [facility] Address: [address] [place] [address] Result Comment: <100 mg/dL, Optimal 100-129 mg/dL, Near optimal/above optimal 130-159 mg/dL, Borderline high 160-189 mg/dL, High >189 mg/dL, Very high Secondary prevention optimal LDL Cholesterol levels are recommended to be < 70 mg/dL Performed By: #### L MORENA, 3015-3, ####[facility] LABCLIA [id number] [address] [place] LDL/HDL RATIO, NF 0.68 mg/dL Normal <2.54 [facility] Comment on above: Order Comment: Speci men Type: BLOOD SPECIMENOrdering Facility: [facility] Address: [address] [place] [address] Result Comment: Refe liz: 1. National Cholesterol Education Program ATP III Guideline At-A-Glance Quick Desk Reference: National Heart, Lung, and Blood [place]. National Institutes of Health. 2001: NIH Publication No. 01-3305. 2. An International Atherosclerosis Society position paper: global recommendations for the management of dyslipidemia: executive summary, Atherosclerosis. 2014: 232(2):410-413. Performed By: #### L MORENA, 3015-3, ####[facility] LABCLIA [id number] [address] [place] NON HDL CHOL, NF 71 mg/dL Normal <130 [facility] Comment on above: Order Comment: Oleg men Type: BLOOD SPECIMENOrdering Facility: [facility] Address: [address] [place] [address] Result Comment: <130 mg/dL, Optimal 130-159 mg/dL, Near optimal/above optimal 160-189 mg/dL, Borderline high 190-219 mg/dL, High >219 mg/dL, Very high Secondary prevention optimal non HDL Cholesterol levels are recommended to be <100 mg/dL Performed By: #### L MORENA, 3015-3, ####[facility] LABCLIA [id number] [address] [address] [facility] [place] T CHOL/HDL RATIO NF 2.27 mg/dL Normal <5.10 [facility] Comment on above: Order Comment: Speci men Type: BLOOD SPECIMENOrdering Facility: [facility] Address: [address] [place] [address] Performed By: #### L IPNF, 3, ####[facility] LABCLIA [id number] [place] [id number] [place] TRIGLYCERIDES, NF 167 mg/dL High <150 [facility] Comment on above: Order Comment: Speci men Type: BLOOD SPECIMENOrdering Facility: [facility] Address: [address] [place] [address] Result Comment: <150 mg/dL, Normal 150-199 mg/dL, Borderline high 200-499 mg/dL, High >499 mg/dL, Very high Performed By: #### L MORENA, 3, ####[facility] LABCLIA [id number] [place] [address] [place] VLDL CHOLESTEROL, NF 33 mg/dL High <30 [facility] Comment on above: Order Comment: Speci men Type: BLOOD SPECIMENOrdering Facility: [facility] Address: [address] [place] [address] Performed By: #### L MORENA, 3, ####[facility] LABCLIA [id number] [place] [id number] [place] TSH SerPl-aCncon 11-21-2024 TSH Qn 1.020 m[IU]/L Normal 0.270-4.200 [facility] Comment on above: Order Comment: Speci men Type: BLOOD SPECIMENOrdering Facility: [facility] Address: [address] [place] [address] Performed By: #### L IPERVIN, 3, ####[facility] LABCLIA [id number] [address] [address] [place] Endocrinology Visit Reporton 11-11-2024 Endocrinology Visit Report Normal [facility] Laboratory - Hematology and Cell countsOrdered By: Jorje Marques on 11-11-2024 HbA1c (Bld) [Mass fraction] 7.5 % High 4.2-6.3 [facility] No Panel InformationOrdered By: Jorje Marques on 11-11-2024 7.5 % High 4.2-6.3 [facility] CRPon 10-31-2024 C-REACTIVE PROT < 3.00 Normal 0.0-3.0 [facility] Comment on above: Performed By: #### L 501.6710, L101.9900 ####[facility] [id number] [place], [place], [id number] CRP [Mass/Vol]Ordered By: Shanle Dangelo on 10-31-2024 C-Reactive Protein Extended Range < 3.00 mg/L 0.0-3.0 [facility] Serum or plasma C reactive protein measurement (mass/volume) < 3.00 mg/L 0.0-3.0 [facility] ESR (Bld) [Velocity]Ordered By: Nikki Dangelo on 10-31-2024 Erythrocyte sedimentation rate < 1 mm/hr 0-30 [facility] Erythrocyte Sed Rateon 10-31 SED RATE < 1 Normal 0-30 [facility] Comment on above: Performed By: #### L 501.6710, L101.9900 ####[facility] [id number] [place], [place], [id number] Erythrocyte sedimentation ra teOrdered By: Nikki Dangelo on 10-31-2024 ESR (Bld) [Velocity] mm/h 0-30 [facility] Serum or plasma C reactive p rotein measurement (mass/volume)Ordered By: Nikki Dangelo on 10-31-2024 CRP [Mass/Vol] mg/L 0.0-3.0 [facility] 12 Lead EKG performed by BMS on 10-23-2024 12 Lead EKG performed by BMS Normal [facility] Cardiology Visit Reporton Cardiology Visit Report Normal [facility] ALP [Catalytic activity/Vol] Ordered By: Nikki Dangelo on 09-30-2024 Serum or plasma alkaline phosphatase measurement 52 U/L 45-117 [facility] ALT [Catalytic activity/Vol] Ordered By: Nikki Dangelo on 09-30-2024 Serum or plasma alanine aminotransferase (ALT) measurement 36 U/L 13-56 [facility] Absolute lymphocyte countOrd ered By: Nikki Dangelo on 09-30-2024 Lymphocytes Auto (Unsp spec) [#/Vol] 1.11 10*3/uL 0.83-4.51 [facility] Absolute neutrophil countOrd ered By: Nikki Dangelo on 09-30-2024 Neutrophils (Bld) [#/Vol] 9.0 10*3/uL High 2.0-7.7 [facility] Absolute neutrophil count 9.0 X10^3/uL High 2.0-7.7 [facility] Albumin [Mass/Vol]Ordered By : Nikki Dangelo on 09-30-2024 Serum or plasma albumin measurement (mass/volume) 3.7 g/dL 3.2-5.0 [facility] Albumin to globulin ratioOrd ered By: Nikkilizette Dangelo on 09-30-2024 Albumin/Globulin [Mass ratio] 1.4 {ratio} 0.9-2.4 [facility] Albumin to globulin ratio 1.4 RATIO 0.9-2.4 [facility] Automated lymphocyte count a s percentage of total leukocytesOrdered By: Nikki Dangelo on 09-30-2024 Lymphocytes/100 WBC Auto (Unsp spec) 9.9 % Low 19-41 [facility] Basophil percentageOrdered B y: Nikki Dangelo on 09-30-2024 Basophils/100 WBC (Bld) 0.4 % 0-1 [facility] Basophil percentage 0.4 % 0-1 [facility] Bilirubin, totalOrdered By: Nikki Dangelo on 09-30-2024 Bilirubin [Mass/Vol] 0.90 mg/dL 0.20-1.00 [facility] Comment on above: For patients on eltr ombopag therapy, use of Dimension Tutor Key TBIL is not recommended. Bilirubin, total 0.90 mg/dL 0.20-1.00 [facility] Blood urea nitrogen (BUN)/cr eatinine ratioOrdered By: Nikki Dangelo on 09-30-2024 Urea nitrogen/Creatinine [Mass ratio] 10.5 mg/mg 06-23 [facility] Blood urea nitrogen (BUN)/creatinine ratio 10.5 RATIO 06-23 [facility] C-reactive protein measureme nt by high sensitivity methodOrdered By: Nikki Dangelo on 09-30-2024 C-Reactive Protein Extended Range < 2.90 mg/L 0.0-3.0 [facility] Comment on above: C-Reactive Protein ( CRP) provides useful information for thediagnosis, therapy and monitoring of inflammatory processesand associated diseases. For the evaluation of Relative Riskfor Cardiovascular Disease, a High Sensitivity CRP (HSCRP)should be ordered. C-reactive protein measurement by high sensitivity method < 2.90 mg/L 0.0-3.0 [facility] CBC W/Diff, Automatedon 09-05 Absolute Lymph 1.11 X10 3/uL Normal 0.83-4.51 [facility] Comment on above: Performed By: #### L 100.0100, L101.9900, L500.4050, L501.6710 ####[facility] [address] [place], [address] Absolute Neut 9.0 X10 3/uL High 2.0-7.7 [facility] Comment on above: Performed By: #### L 100.0100, L101.9900, L500.4050, L501.6710 ####[facility] [address] [place], [address] Basophils/100 WBC (Bld) 0.4 % Normal 0-1 [facility] Comment on above: Performed By: #### L 100.0100, L101.9900, L500.4050, L501.6710 ####[facility] [address] [place], [address] Eosinophils/100 WBC (Bld) 1.0 % Normal 0-5 [facility] Comment on above: Performed By: #### L 100.0100, L101.9900, L500.4050, L501.6710 ####[facility] [address] [place], [address] Erythrocyte distribution width (RBC) [Ratio] 16.5 % High 11.6-14.6 [facility] Comment on above: Performed By: #### L 100.0100, L101.9900, L500.4050, L501.6710 ####[facility] [address] [place], [address] Hematocrit (Bld) [Volume fraction] 40.1 % Normal 37-47 [facility] Comment on above: Performed By: #### L 100.0100, L101.9900, L500.4050, L501.6710 ####[facility] [address] [place], [address] Hemoglobin (Bld) [Mass/Vol] 11.7 g/dL Low 12.0-15.0 [facility] Comment on above: Performed By: #### L 100.0100, L101.9900, L500.4050, L501.6710 ####[facility] [address] [place], [address] IG% 2.100 High 0.0-0.9 [facility] Comment on above: Result Comment: IG% - Immature Granulocytes (promyelocytes, myelocytes andmetamyelocytes) > 1% indicates that a LEFT SHIFT is Present. Performed By: #### L 100.0100, L101.9900, L500.4050, L501.6710 ####[facility] [address] [place], [address] Lymphocytes/100 WBC (Bld) 9.9 % Low 19-41 [facility] Comment on above: Performed By: #### L 100.0100, L101.9900, L500.4050, L501.6710 ####[facility] [address] [place], [address] MCH (RBC) [Entitic mass] 25.8 pg Low 27.0-32.0 [facility] Comment on above: Performed By: #### L 100.0100, L101.9900, L500.4050, L501.6710 ####[facility] [address] [place], [address] MCHC (RBC) [Mass/Vol] 29.2 g/dL Low 32-36 [facility] Comment on above: Performed By: #### L 100.0100, L101.9900, L500.4050, L501.6710 ####[facility] [address] [place], [address] MCV (RBC) [Entitic vol] 88.5 fL Normal 81-99 [facility] Comment on above: Performed By: #### L 100.0100, L101.9900, L500.4050, L501.6710 ####[facility] [address] [place], [address] Monocytes/100 WBC (Bld) 6.3 % Normal 0-[address] [facility] Comment on above: Performed By: #### L 100.0100, L101.9900, L500.4050, L501.6710 ####[facility] [address] [place], [address] Neutrophils/100 WBC (Bld) 80.3 % High 47-70 [facility] Comment on above: Performed By: #### L 100.0100, L101.9900, L500.4050, L501.6710 ####[facility] [address] [place], [address] Nucleated RBC (Bld) [#/Vol] 0.3 10*3/uL Normal 0-5 [facility] Comment on above: Performed By: #### L 100.0100, L101.9900, L500.4050, L501.6710 ####[facility] [address] [place], [address] Platelet mean volume (Bld) [Entitic vol] 9.1 fL Normal 6.2-12.0 [facility] Comment on above: Performed By: #### L 100.0100, L101.9900, L500.4050, L501.6710 ####[facility] [address] [place], [address] Platelets (Bld) [#/Vol] 211 10*3/uL Normal 150-450 [facility] Comment on above: Performed By: #### L 100.0100, L101.9900, L500.4050, L501.6710 ####[facility] [address] [place], [address] RBC (Bld) [#/Vol] 4.53 10*6/uL Normal 4.2-5.4 [facility] Comment on above: Performed By: #### L 100.0100, L101.9900, L500.4050, L501.6710 ####[facility] [address] [place], [address] RDW SD 53.1 fl High 35.1-43.9 [facility] Comment on above: Performed By: #### L 100.0100, L101.9900, L500.4050, L501.6710 ####[facility] [address] [place], [address] WBC (Bld) [#/Vol] 11.2 10*3/uL High 4.4-11.0 [facility] Comment on above: Performed By: #### L 100.0100, L101.9900, L500.4050, L501.6710 ####[facility] [address] [place], [address] CRPon 01-27-2025 C-REACTIVE PROT < 2.90 Normal 0.0-3.0 [facility] Comment on above: Result Comment: C-Re active Protein (CRP) provides useful information for thediagnosis, therapy and monitoring of inflammatory processesand associated diseases. For the evaluation of Relative Riskfor Cardiovascular Disease, a High Sensitivity CRP (HSCRP)should be ordered. Performed By: #### L 100.0100, L101.9900, L500.4050, L501.6710 ####[facility] [address] [place], [address] Calcium [Mass/Vol]Ordered By : Nikki Dangelo on 09-30-2024 Serum or plasma calcium measurement (mass/volume) 9.2 mg/dL 8.5-10.1 [facility] Carbon dioxide measurementOr dered By: Nikki Dangelo on 09-30-2024 CO2 [Moles/Vol] 26.0 mmol/L 21.0-32.0 [facility] Carbon dioxide measurement 26.0 mmol/L 21.0-32.0 [facility] Chloride measurementOrdered By: Nikki Dangelo on 09-30-2024 Chloride [Moles/Vol] 106 mmol/L 98-107 [facility] Chloride measurement 106 mmol/L 98-107 [facility] Comprehensive Metabolic Prof ilon 09-30-2024 Albumin [Mass/Vol] 3.7 g/dL Normal 3.2-5.0 [facility] Comment on above: Performed By: #### L 100.0100, L101.9900, L500.4050, L501.6710 ####[facility] [address] [place], [address] Albumin/Globulin [Mass ratio] 1.4 {ratio} Normal 0.9-2.4 [facility] Comment on above: Performed By: #### L 100.0100, L101.9900, L500.4050, L501.6710 ####[facility] [address] [place], [address] ALK P 52 U/L Normal 45-117 [facility] Comment on above: Performed By: #### L 100.0100, L101.9900, L500.4050, L501.6710 ####[facility] [address] [place], [address] ALT [Catalytic activity/Vol] 36 U/L Normal 13-56 [facility] Comment on above: Performed By: #### L 100.0100, L101.9900, L500.4050, L501.6710 ####[facility] [address] [place], [address] AST [Catalytic activity/Vol] 21 U/L Normal 15-37 [facility] Comment on above: Performed By: #### L 100.0100, L101.9900, L500.4050, L501.6710 ####[facility] [address] [place], [address] Bilirubin [Mass/Vol] 0.90 mg/dL Normal 0.20-1.00 [facility] Comment on above: Result Comment: For patients on eltrombopag therapy, use of Dimension Tutor Key TBIL is not recommended. Performed By: #### L 100.0100, L101.9900, L500.4050, L501.6710 ####[facility] [address] [place], [address] BUN/CRE 10.5 RATIO Normal 10-20 [facility] Comment on above: Performed By: #### L 100.0100, L101.9900, L500.4050, L501.6710 ####[facility] [address] [place], [address] CA,Total 9.2 mg/dL Normal 8.5-10.1 [facility] Comment on above: Performed By: #### L 100.0100, L101.9900, L500.4050, L501.6710 ####[facility] [address] [place], [address] Chloride [Moles/Vol] 106 mmol/L Normal 98-107 [facility] Comment on above: Performed By: #### L 100.0100, L101.9900, L500.4050, L501.6710 ####[facility] [address] [place], [address] CO2 [Moles/Vol] 26.0 mmol/L Normal 21.0-32.0 [facility] Comment on above: Performed By: #### L 100.0100, L101.9900, L500.4050, L501.6710 ####[facility] [address] [place], [address] Creatinine [Mass/Vol] 1.43 mg/dL High 0.55-1.02 [facility] Comment on above: Result Comment: The validity of the calculated GFR GFRAA in patients over70 years has not been determined. Clinical correlation isessential. Performed By: #### L 100.0100, L101.9900, L500.4050, L501.6710 ####[facility] [address] [place], [address] EST GFR - AA 47 mL/min Low >60 [facility] Comment on above: Result Comment: Afri can Palauan GFR Calc Performed By: #### L 100.0100, L101.9900, L500.4050, L501.6710 ####[facility] [address] [place], [address] GAP 10 Normal 5-15 [facility] Comment on above: Performed By: #### L 100.0100, L101.9900, L500.4050, L501.6710 ####[facility] [address] [place], [address] GFR/1.73 sq M.predicted among non-blacks MDRD (S/P/Bld) [Vol rate/Area] 39 mL/min/{1.73_m2} Low >60 [facility] Comment on above: Result Comment: Non- GFR Calc Performed By: #### L 100.0100, L101.9900, L500.4050, L501.6710 ####[facility] [address] [place], [address] Globulin (S) [Mass/Vol] 2.7 g/dL Normal 2.2-4.[address] [facility] Comment on above: Performed By: #### L 100.0100, L101.9900, L500.4050, L501.6710 ####[facility] [address] [place], [address] Glucose [Mass/Vol] 83 mg/dL Normal 74-106 [facility] Comment on above: Performed By: #### L 100.0100, L101.9900, L500.4050, L501.6710 ####[facility] [address] [place], [address] Potassium [Moles/Vol] 3.6 mmol/L Normal 3.5-5.1 [facility] Comment on above: Performed By: #### L 100.0100, L101.9900, L500.4050, L501.6710 ####[facility] [address] [place], [address] Sodium [Moles/Vol] 142 mmol/L Normal 136-145 [facility] Comment on above: Performed By: #### L 100.0100, L101.9900, L500.4050, L501.6710 ####[facility] [address] [place], [address] T PROT 6.4 g/dL Normal 6.4-8.2 [facility] Comment on above: Performed By: #### L 100.0100, L101.9900, L500.4050, L501.6710 ####[facility] [address] [place], [place], [address] Urea nitrogen [Mass/Vol] 15 mg/dL Normal 7-18 [facility] Comment on above: Performed By: #### L 100.0100, L101.9900, L500.4050, L501.6710 ####[facility] [address] [place], [place], [id number] Creatinine [Mass/Vol]Ordered By: Nikki Dangelo on 09-30-2024 Serum or plasma creatinine measurement (mass/volume) 1.43 mg/dL High 0.55-1.02 [facility] ESR (Bld) [Velocity]Ordered By: Nikki Dangelo on 09-30-2024 Erythrocyte sedimentation rate 1 mm/hr 0-30 [facility] Eosinophil percentageOrdered By: Nikki Dangelo on 09-30-2024 Eosinophils/100 WBC (Bld) 1.0 % 0-5 [facility] Eosinophil percentage 1.0 % 0-5 [facility] Erythrocyte Sed Rateon 09-30 SED RATE 1 mm/hr Normal 0-30 [facility] Comment on above: Performed By: #### L 100.0100, L101.9900, L500.4050, L501.6710 ####[facility] [address] [place], [place], [id number] Erythrocyte distribution wid th (RBC) [Ratio]Ordered By: Nikki Dangelo on 09-30-2024 Erythrocyte distribution width ratio 16.5 % High 11.6-14.6 [facility] Erythrocyte distribution width standard deviation 53.1 fl High 35.1-43.9 [facility] Erythrocyte distribution wid th ratioOrdered By: Nikki Dangelo on 09-30-2024 Erythrocyte distribution width (RBC) [Ratio] 16.5 % High 11.6-14.6 [facility] Erythrocyte distribution wid th standard deviationOrdered By: Nikki Dangelo on 09-30-2024 Erythrocyte distribution width (RBC) [Entitic vol] 53.1 fL High 35.1-43.9 [facility] Erythrocyte distribution width (RBC) [Ratio] 53.1 fl High 35.1-43.9 [facility] Erythrocyte sedimentation ra teOrdered By: Nikki Dangelo on 09-30-2024 ESR (Bld) [Velocity] 1 mm/h 0-30 [facility] Estimated glomerular filtrat ion rate (GFR) AmericanOrdered By: Nikki Dangelo on 09-30-2024 Estimated GFR (MDRD) Amer 47 mL/min Low >60 [facility] Comment on above: GFR Calc Estimated glomerular filtration rate (GFR) 47 mL/min Low >60 [facility] Glomerular filtration rate ( GFR) estimationOrdered By: Nikki Dangelo on 09-30-2024 Estimated GFR (MDRD) Non-Af Amer 39 mL/min Low >60 [facility] Comment on above: Non- GFR Calc GFR/1.73 sq M.predicted among non-blacks MDRD (S/P/Bld) [Vol rate/Area] 39 mL/min/{1.73_m2} Low >60 [facility] Glomerular filtration rate (GFR) estimation 39 mL/min Low >60 [facility] Glucose measurementOrdered B y: Nikki Dangelo on 09-30-2024 Glucose [Mass/Vol] 83 mg/dL 74-106 [facility] Glucose measurement 83 mg/dL 74-106 [facility] Hematocrit Auto (Bld) [Volum e fraction]Ordered By: Nikki Dangelo on 09-30-2024 Hematocrit (Bld) [Volume fraction] 40.1 % 37-47 [facility] Automated blood hematocrit (percentage) 40.1 % -47 [facility] Hemoglobin measurementOrdere d By: Nikki Dangelo on 09-30-2024 Hemoglobin (Bld) [Mass/Vol] 11.7 g/dL Low 12.0-15.0 [facility] Hemoglobin measurement 11.7 g/dL Low 12.0-15.0 [facility] Immature granulocytes/100 WB C Auto (Bld)Ordered By: Nikki Dangelo on 09-30-2024 Immature granulocytes/100 WBC (Bld) 2.100 % High 0.0-0.9 [facility] Comment on above: IG% - Immature Granu locytes (promyelocytes, myelocytes and metamyelocytes) > 1% indicates that a LEFT SHIFT is Present. Automated immature granulocyte percentage 2.100 % High 0.0-0.9 [facility] Laboratory - Chemistry and C hemistry - challengeOrdered By: Nikki Dangelo on 09-30-2024 AST [Catalytic activity/Vol] 21 U/L 15-37 [facility] Lymphocytes Auto (Unsp spec) [#/Vol]Ordered By: Nikki Dangelo on 09-30-2024 Lymphocytes (Bld) [#/Vol] 1.11 10*3/uL 0.83-4.51 [facility] Absolute lymphocyte count 1.11 X10^3/uL 0.83-4.51 [facility] Lymphocytes/100 WBC Auto (Un sp spec)Ordered By: Nikki Dangelo on 09-30-2024 Lymphocytes/100 WBC (Bld) 9.9 % Low 19- [facility] Automated lymphocyte count as percentage of total leukocytes 9.9 % Low 19-41 [facility] MCV (RBC) [Entitic vol]Order ed By: Nikki Dangelo on 09-30-2024 MCV (mean corpuscular volume) determination 88.5 fL 81-99 [facility] MCV (mean corpuscular volume ) determinationOrdered By: Nikki Dangelo on 09-30-2024 MCV (RBC) [Entitic vol] 88.5 fL 81-99 [facility] Mean corpuscular hemoglobin (MCH) determinationOrdered By: Nikki Dangelo on 09-30-2024 MCH (RBC) [Entitic mass] 25.8 pg Low 27.0-32.0 [facility] Mean corpuscular hemoglobin (MCH) determination 25.8 pg Low 27.0-32.0 [facility] Mean corpuscular hemoglobin concentration (MCHC) determinationOrdered By: Nikki Dangelo on 09-30-2024 MCHC (RBC) [Mass/Vol] 29.2 g/dL Low 32-36 [facility] Mean corpuscular hemoglobin concentration (MCHC) determination 29.2 g/dL Low 32-36 [facility] Mean platelet volume determi nationOrdered By: Nikki Dangelo on 09-30-2024 Platelet mean volume (Bld) [Entitic vol] 9.1 fL 6.2-12.0 [facility] Mean platelet volume determination 9.1 fl 6.2-12.0 [facility] Monocyte percentageOrdered B y: Nikki Dangelo on 09-30-2024 Monocytes/100 WBC (Bld) 6.3 % 0-10 [facility] Monocyte percentage 6.3 % 0-10 [facility] Neutrophil percentageOrdered By: Nikki Dangelo on 09-30-2024 Neutrophils/100 WBC (Bld) 80.3 % High 47-70 [facility] Neutrophil percentage 80.3 % High 47-70 [facility] No Panel InformationOrdered By: Nikki Dangelo on 09-30-2024 21 U/L 15-37 [facility] Nucleated red blood cell per centageOrdered By: Nikki Dangelo on 09-30-2024 Nucleated RBC/100 WBC (Bld) [Ratio] 0.3 % 0-5 [facility] Nucleated red blood cell percentage 0.3 % 0-5 [facility] Platelet countOrdered By: Shanel Dangelo on 09-30-2024 Platelets (Bld) [#/Vol] 211 10*3/uL 150-450 [facility] Platelet count 211 K/mm3 150-450 [facility] Potassium measurementOrdered By: Nikki Dangelo on 09-30-2024 Potassium [Moles/Vol] 3.6 mmol/L 3.5-5.1 [facility] Potassium measurement 3.6 mmol/L 3.5-5.1 [facility] RBC Auto (Bld) [#/Vol]Ordere d By: Nikki Dangelo on 09-30-2024 RBC (Bld) [#/Vol] 4.53 10*6/uL 4.2-5.4 [facility] Automated blood erythrocyte count 4.53 M/mm3 4.2-5.4 [facility] Serum anion gap measurementO rdered By: Nikki Dangelo on 09-30-2024 Anion gap [Moles/Vol] 10 mmol/L 5-15 [facility] Serum anion gap measurement 10 5-15 [facility] Serum globulin measurementOr dered By: Nikki Dangelo on 09-30-2024 Globulin (S) [Mass/Vol] 2.7 g/dL 2.2-4.2 [facility] Serum globulin measurement 2.7 g/dL 2.2-4.2 [facility] Serum or plasma alanine schrader otransferase (ALT) measurementOrdered By: Nikki Dangelo on 09-30-2024 ALT [Catalytic activity/Vol] 36 U/L 13-56 [facility] Serum or plasma albumin christi urement (mass/volume)Ordered By: Nikki Dangelo on 09-30-2024 Albumin [Mass/Vol] 3.7 g/dL 3.2-5.0 [facility] Serum or plasma alkaline darlin sphatase measurementOrdered By: Nikki Dangelo on 09-30-2024 ALP [Catalytic activity/Vol] 52 U/L 45-117 [facility] Serum or plasma calcium christi urement (mass/volume)Ordered By: Nikki Dangelo on 09-30-2024 Calcium [Mass/Vol] 9.2 mg/dL 8.5-10.1 [facility] Serum or plasma creatinine m easurement (mass/volume)Ordered By: Nikki Dangelo on 09-30-2024 Creatinine [Mass/Vol] 1.43 mg/dL High 0.55-1.02 [facility] Comment on above: The validity of the calculated GFR & GFRAA in patients over 70 years has not been determined. Clinical correlation is essential. Serum or plasma urea nitroge n measurement (mass/volume)Ordered By: Nikki Dangelo on 09-30-2024 Urea nitrogen [Mass/Vol] 15 mg/dL 7-18 [facility] Sodium levelOrdered By: Moustapha Dangelo on 09-30-2024 Sodium [Moles/Vol] 142 mmol/L 136-145 [facility] Sodium level 142 mmol/L 136-145 [facility] Total proteinOrdered By: Jake Dangelo on 09-30-2024 Protein [Mass/Vol] 6.4 g/dL 6.4-8.2 [facility] Total protein 6.4 g/dL 6.4-8.2 [facility] Urea nitrogen [Mass/Vol]Orde red By: Nikki Dangelo on 09-30-2024 Serum or plasma urea nitrogen measurement (mass/volume) 15 mg/dL 7-18 [facility] White blood cell (WBC) count Ordered By: Nikki Dangelo on 09-30-2024 WBC (Bld) [#/Vol] 11.2 10*3/uL High 4.4-11.0 [facility] White blood cell (WBC) count 11.2 K/mm3 High 4.4-11.0 [facility] C-reactive protein measureme nt by high sensitivity methodOrdered By: Nikki Dangelo on 07-31-2024 C-Reactive Protein Extended Range < 2.90 mg/L 0.0-3.0 [facility] Comment on above: C-Reactive Protein ( CRP) provides useful information for thediagnosis, therapy and monitoring of inflammatory processesand associated diseases. For the evaluation of Relative Riskfor Cardiovascular Disease, a High Sensitivity CRP (HSCRP)should be ordered. CRPon 07-31-2024 C-REACTIVE PROT < 2.90 Normal 0.0-3.0 [facility] Comment on above: Order Comment: PT RE FUSED TO LET ME POKE HER ANYWHERE OTHER THEN [facility] Result Comment: C-Re active Protein (CRP) provides useful information for thediagnosis, therapy and monitoring of inflammatory processesand associated diseases. For the evaluation of Relative Riskfor Cardiovascular Disease, a High Sensitivity CRP (HSCRP)should be ordered. Performed By: #### L 101.9900, L501.6710 ####[facility] [address] [place], [place], [id number] Erythrocyte Sed Rateon 07-31 SED RATE 1 mm/hr Normal 0-30 [facility] Comment on above: Performed By: #### L 101.9900, L501.6710 ####[facility] [address] [place], [place], [id number] Erythrocyte sedimentation ra teOrdered By: Nikki Dangelo on 07-31-2024 ESR (Bld) [Velocity] 1 mm/h 0-30 [facility] Endocrinology Visit Reporton 07-08-2024 Endocrinology Visit Report Normal [facility] CRPon 07-05-2024 C-REACTIVE PROT < 2.90 Normal 0.0-3.0 [facility] Comment on above: Result Comment: C-Re active Protein (CRP) provides useful information for thediagnosis, therapy and monitoring of inflammatory processesand associated diseases. For the evaluation of Relative Riskfor Cardiovascular Disease, a High Sensitivity CRP (HSCRP)should be ordered. Performed By: #### L 501.6710, L101.9900 ####[facility] [address] [place], [address] Erythrocyte Sed Rateon 07-05 SED RATE 3 mm/hr Normal 0-30 [facility] Comment on above: Performed By: #### L 501.6710, L101.9900 ####[facility] [address] [place], [address] CNPNon 07-03-2024 CNPN Telephone (4CQ) DERRELL GERMAN ([id number]) 1955 F Date Time Provider Department 07/03/24 WILLARD HENRIQUEZ 4CQ During your visit today, we recorded the following information about you: Adeline Jeffers 07/03/2024 10:21 AM Signed Patient is asking for recent labs results to be faxed to Endocrinology Dr Marques at [place]. Love Freeman LPN 07/03/2024 10:51 AM Signed Lab results from 05/31/24 have been faxed to Dr Marques as requested by [place]. Love Freeman LPN Allergies As of Date: 07/03/2024 Noted Allergy Reaction AMLODIPINE 02/16/2023 7 - Swelling DIFLUCAN (FLUCONAZOLE) 07/06/2015 4 - Hives DIPHTH,PERTUS(ACELL),TE TANUS 02/16/2023 4 - Hives ACTOS (PIOGLITAZONE HCL) 07/31/2007 14 - Other: See Comments Comments: Edema BLE AND OLGA HANDS BACTRIM (SULFAMETHOXAZOLE-TRIME TH*08/18/2005 4 - Hives Comments: HIVES BETADINE (POVIDONE-IODINE) 08/18/2005 10 - Anaphylaxis Comments: SEVERE ALLERGY TO IODINE AND BETADINE FISH 08/18/2005 10 - Anaphylaxis Comments: ALL FISH IODINE 08/18/2005 10 - Anaphylaxis Comments: IV contrast LIPITOR (ATORVASTATIN CALCIUM) 03/01/2010 2 - Rash 9 - Itching METFORMIN 03/14/2014 6 - Diarrhea 8 - GI Upset ORANGE 08/18/2005 10 - Anaphylaxis PENICILLINS 08/18/2005 16 - Unknown Comments: NOT SURE A CHILD SULFA (SULFONAMIDE ANTIBIOTICS) 12/02/2005 7 - Swelling Comments: SWELLING AND HIVES Date Reviewed: 05/31/2024 Reviewed by: Marcie Sharma MA - Fully Assessed Reason for Visit: Results [95] Prescriptions as of 07/03/2024 - levothyroxine (SYNTHROID) 175 mcg tablet Take 1 tablet by mouth once daily. M---- and none on Mon and Mon. Take on empty stomach. For Thyroid. Per endo: Dr. Marques - Cholecalciferol, Vitamin D3, 125 mcg (5,000 unit) cap Take 1 capsule by mouth every morning. Last dose 02/07/23 - insulin regular human, CONCENTRATED 500 UNIT/ML, (HUMULIN R) 500 unit/mL soln 150 units before breakfast 180 units before lunch 150 units before dinner 80-100 units at bedtime Depends on BS tests - gabapentin (NEURONTIN) 100 mg capsule 300 mg by mouth three times/day - rosuvastatin (CRESTOR) 20 mg tablet Take 1 tablet by mouth once daily. - tocilizumab (ACTEMRA) 162 mg/0.9 mL subcutaneous injection Inject 162 mg subcutaneously one time a week. - neomycin sulfate (NEOMYCIN 1%) Irrigate 500 mL as instructed one time only. - clopidogrel (PLAVIX) 75 mg tablet Take 1 tablet by mouth once daily. - enoxaparin (LOVENOX) 40 mg/0.4 mL 40 mg sub Q twice a day. - montelukast (SINGULAIR) 10 mg tablet Take 1 tablet by mouth daily at bedtime. - metoprolol succinate ER (TOPROL XL) 25 mg 24 hr tablet Take 1 tablet by mouth every morning. - famotidine (PEPCID) 20 mg tablet Take 1 tablet by mouth two times a day. - potassium chloride (K-TAB) 10 mEq tablet Take 2 tablets by mouth two times a day. - clobetasol (TEMOVATE) 0.05 % ointment Apply to affected area two times a day. - spironolactone (ALDACTONE) 25 mg tablet Take 1 tablet by mouth twice daily. - polyethylene glycol 3350 17 gram packet Take 1 Packet by mouth once daily. Dissolve dose in 4 - 8 ounces of liquid and take as directed. - acetaminophen (TYLENOL) 500 mg tablet Take 2 tablets by mouth every 6 hours as needed for pain. - bisacodyl EC (DULCOLAX) 5 mg EC tablet Take 2 tablets by mouth once daily as needed for constipation. - polyethylene glycol 3350 17 gram packet Take 1 Packet by mouth once daily as needed. Dissolve dose in 4 - 8 ounces of liquid and take as directed. - calcium carbonate (ANTACID CALCIUM ORAL) Take by mouth as needed. Last dose 02/09 - melatonin 10 mg cap Take 5-10 mg by mouth daily at bedtime. - BIPAP daily at bedtime. - dapagliflozin (FARXIGA) 10 mg tablet Take 10 mg by mouth daily with breakfast. Take 1 tablet daily - TRULICITY 3 mg/0.5 mL pen injector Inject 4.5 mg subcutaneously one time a week. Monday - furosemide (LASIX) 40 mg tablet Take 1 tablet by mouth twice daily. Per Melissa Cardio - EPINEPHrine (EPIPEN) 0.3 mg/0.3 mL auto-injector Use auto-injector x 1 for allergic reaction. - isosorbide mononitrate ER (IMDUR) 30 mg 24 hr tablet Take 60 mg by mouth every morning. - nitroglycerin sublingual (NITROQUICK) 0.4 mg SL tablet Dissolve 1 tablet under the tongue every 5 minutes as needed for Chest Pain. Problem List As Of Date 07/03/2024 Noted Resolved Type 2 diabetes mellitus with stage 3a chronic *03/14/1996 Postsurgical hypothyroidism [E89.0] Chest pain, unspecified [R07.9] 06/15/2007 03/14/2014 Mild intermittent asthma without complication [*02/10/2011 Allergic rhinitis [J30.9] 02/10/2011 GERD (gastroesophageal reflux disease) [K21.9] 08/07/2012 Postherpetic neuralgia [B02.29] 03/14/2014 Morbid obesity due to excess calories (HCC) [E6*06/30/2015 Hypertension, essential [I10] 06/30/2015 Hyperlipidemia, mixed [E78. (more content not included)... Normal [facility] CRPon 06-12-2024 C-REACTIVE PROT 7.22 mg/L High 0.0-3.0 [facility] Comment on above: Result Comment: C-Re active Protein (CRP) provides useful information for thediagnosis, therapy and monitoring of inflammatory processesand associated diseases. For the evaluation of Relative Riskfor Cardiovascular Disease, a High Sensitivity CRP (HSCRP)should be ordered. Performed By: #### L 501.6710, L101.9900 ####[facility] [address] [place], [place], [id number] Erythrocyte Sed Rateon 06-12 SED RATE 16 mm/hr Normal 0-30 [facility] Comment on above: Performed By: #### L 501.6710, L101.9900 ####[facility] [address] [place], [address] CNPNon 06-03-[address] [facility] Telephone (BILL) DERRELL GERMAN ([id number]) 1955 F Date Time Provider Department 06/03/24 PADMINI ANGUIANO [facility] During your visit today, we recorded the following information about you: Padmini Anguiano APRN.ENROLLMENT REPRESENTATIVE 06/03/2024 10:28 AM Signed Please let patient know her TSH is low. I want her to take 175mcg ----S and nothing on Monday and Monday. Marcie Sharma MA 06/03/2024 10:31 AM Signed Pt notified and verbalized understanding Marcie Sharma MA Allergies As of Date: 06/03/2024 Noted Allergy Reaction AMLODIPINE 02/16/2023 7 - Swelling DIFLUCAN (FLUCONAZOLE) 07/06/2015 4 - Hives DIPHTH,PERTUS(ACELL),TE TANUS 02/16/2023 4 - Hives ACTOS (PIOGLITAZONE HCL) 07/31/2007 14 - Other: See Comments Comments: Edema BLE AND OLGA HANDS BACTRIM (SULFAMETHOXAZOLE-TRIME TH*08/18/2005 4 - Hives Comments: HIVES BETADINE (POVIDONE-IODINE) 08/18/2005 10 - Anaphylaxis Comments: SEVERE ALLERGY TO IODINE AND BETADINE FISH 08/18/2005 10 - Anaphylaxis Comments: ALL FISH IODINE 08/18/2005 10 - Anaphylaxis Comments: IV contrast LIPITOR (ATORVASTATIN CALCIUM) 03/01/2010 2 - Rash 9 - Itching METFORMIN 03/14/2014 6 - Diarrhea 8 - GI Upset ORANGE 08/18/2005 10 - Anaphylaxis PENICILLINS 08/18/2005 16 - Unknown Comments: NOT SURE A CHILD SULFA (SULFONAMIDE ANTIBIOTICS) 12/02/2005 7 - Swelling Comments: SWELLING AND HIVES Date Reviewed: 05/31/2024 Reviewed by: Marcie Sharma MA - Fully Assessed Reason for Visit: Results [95] Primary Visit Diagnosis:Postsurgical hypothyroidism [E89.0] Order(s):THYROID STIMULATING HORMONE [SQTSH] Order #: [id number] FUTURE levothyroxine (SYNTHROID) 175 mcg tabletTake 1 tablet by mouth once daily. and none on Mon and Sun. Take on empty stomach. For Thyroid. Per endo: Dr. Iniguez: 20 tabletRfl: 5 Prescriptions as of 06/03/2024 - levothyroxine (SYNTHROID) 175 mcg tablet Take 1 tablet by mouth once daily. - and none on Mon and Sun. Take on empty stomach. For Thyroid. Per endo: Dr. Marques - Cholecalciferol, Vitamin D3, 125 mcg (5,000 unit) cap Take 1 capsule by mouth every morning. Last dose 02/07/23 - insulin regular human, CONCENTRATED 500 UNIT/ML, (HUMULIN R) 500 unit/mL soln 150 units before breakfast 180 units before lunch 150 units before dinner 80-100 units at bedtime Depends on BS tests - gabapentin (NEURONTIN) 100 mg capsule 300 mg by mouth three times/day - rosuvastatin (CRESTOR) 20 mg tablet Take 1 tablet by mouth once daily. - tocilizumab (ACTEMRA) 162 mg/0.9 mL subcutaneous injection Inject 162 mg subcutaneously one time a week. - neomycin sulfate (NEOMYCIN 1%) Irrigate 500 mL as instructed one time only. - clopidogrel (PLAVIX) 75 mg tablet Take 1 tablet by mouth once daily. - enoxaparin (LOVENOX) 40 mg/0.4 mL 40 mg sub Q twice a day. - montelukast (SINGULAIR) 10 mg tablet Take 1 tablet by mouth daily at bedtime. - metoprolol succinate ER (TOPROL XL) 25 mg 24 hr tablet Take 1 tablet by mouth every morning. - famotidine (PEPCID) 20 mg tablet Take 1 tablet by mouth two times a day. - potassium chloride (K-TAB) 10 mEq tablet Take 2 tablets by mouth two times a day. - clobetasol (TEMOVATE) 0.05 % ointment Apply to affected area two times a day. - spironolactone (ALDACTONE) 25 mg tablet Take 1 tablet by mouth twice daily. - polyethylene glycol 3350 17 gram packet Take 1 Packet by mouth once daily. Dissolve dose in 4 - 8 ounces of liquid and take as directed. - acetaminophen (TYLENOL) 500 mg tablet Take 2 tablets by mouth every 6 hours as needed for pain. - bisacodyl EC (DULCOLAX) 5 mg EC tablet Take 2 tablets by mouth once daily as needed for constipation. - polyethylene glycol 3350 17 gram packet Take 1 Packet by mouth once daily as needed. Dissolve dose in 4 - 8 ounces of liquid and take as directed. - calcium carbonate (ANTACID CALCIUM ORAL) Take by mouth as needed. Last dose 02/09 - melatonin 10 mg cap Take 5-10 mg by mouth daily at bedtime. - BIPAP daily at bedtime. - dapagliflozin (FARXIGA) 10 mg tablet Take 10 mg by mouth daily with breakfast. Take 1 tablet daily - TRULICITY 3 mg/0.5 mL pen injector Inject 4.5 mg subcutaneously one time a week. Monday - furosemide (LASIX) 40 mg tablet Take 1 tablet by mouth twice daily. Per Melissa Cardio - EPINEPHrine (EPIPEN) 0.3 mg/0.3 mL auto-injector Use auto-injector x 1 for allergic reaction. - isosorbide mononitrate ER (IMDUR) 30 mg 24 hr tablet Take 60 mg by mouth every morning. - nitroglycerin sublingual (NITROQUICK) 0.4 mg SL tablet Dissolve 1 tablet under the tongue every 5 minutes as needed for Chest Pain. Problem List As Of Date 06/03/2024 Noted Resolved Type 2 diabetes mellitus with stage 3a chronic *03/14/1996 Postsurgical hypothyroidism [E89.0] Chest pain, unspecified [R07.9] 06/15/2007 03/14/2014 Mild intermit (more content not included)... Normal [facility] ALBUMIN/CREATININE RATIO, UR INEon 05-31-2024 Albumin DL <= 20 mg/L (U) [Mass/Vol] mg/dL Normal [facility] Comment on above: Order Comment: Speci men Type: URINE SPECIMENOrdering Facility: [facility] Address: [address] [place] [address] Performed By: #### U ACR ####[facility] LABCLIA [id number] [place] [address] [place] Albumin/Creatinine (U) [Mass ratio] <12 Normal <30 [facility] Comment on above: Order Comment: Speci men Type: URINE SPECIMENOrdering Facility: [facility] Address: [address] [place] [address] Result Comment: Adul t Male and Female Nephrotic Criteria: <30 mg/g is considered normal to mildly increased 30-300 mg/g is considered moderately increased >300 mg/g is considered severely increased KDIGO. (2013). KDIGO 2012 Clinical Practice Guideline for the Evaluation and Management of Chronic Kidney Disease. Official Journal of the International Society of Nephrology, 3(1), 1-150. Performed By: #### U ACR ####[facility] LABCLIA [id number] [place] [address] [place] Creatinine (U) [Mass/Vol] 101.8 mg/dL Normal 20.0-300.0 [facility] Comment on above: Order Comment: Speci men Type: URINE SPECIMENOrdering Facility: [facility] Address: [address] [place] [address] Performed By: #### U ACR ####[facility] LABCLIA [id number] [address] [facility] CNOVon 05-31-2024 CNOV Office Visit (BILL ) DERRELL GERMAN ([id number]) 1955 F Date Time Provider Department 05/31/24 1:40 PM PADMINI ANGUIANO During your visit today, we recorded the following information about you: Pulse Respiration Blood pressure Weight 94/minute 18/minute 138/79 138.3 kg Padmini Anguiano APRN.[facility] 05/31/2024 2:47 PM Signed Derrell German is a 68 year old female here for a Medicare wellness visit. 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 Current care team: Patient Care Team: Willard Henriquez MD as PCP - General (Family Medicine) Medical/Family history review Reviewed and updated problem list, medical/surgical/family /social history, medications, and allergies. Opioid use review Opioid Medications (last 90 days) No data to display Anxiety/Depression screening PHQ-2 Score: 0 (Lower risk for anxiety) Recommendation: no further intervention at this time Cognitive screening Cognitive screening reviewed and No further action needed (score 3-5). Functional Observation Was the patient's Timed Up AND Go test unsteady or >= 12 seconds? No Advance Care Planning Surrogate decision maker and/or advance care plan documented Measurements BP 138/79 Pulse 94 Resp 18 Wt (!) 138.3 kg (305 lb) SpO2 96% BMI 55.79 kg/m? Vision Screening: Follows with optometry/ophthalmology Assessment/Plan Medicare annual wellness visit, subsequent (Z00.00) - Counseled on healthy diet and regular exercise - Fall avoidance information provided - Personalized prevention plan provided - Discussed need for and benefit of weight loss. BMI 55.79 kg/(m2) Chief Complaint Patient presents with: Medicare Wellness Exam HPI Derrell German is a 68 year old female who presents here today for Above Complaints.. Patient presents for annual wellness Past medical history, appointments, medications, allergies reviewed. Previous Medical History PAST MEDICAL HISTORY Diagnosis Date Advance directive discussed with patient 04/06/2022 Discussed 04/2022 Allergic rhinitis 02/10/2011 ASHD (arteriosclerotic heart disease) 03/08/[address] Ast[address] 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 History of left heart catheterization HEART CATH X2 STENTS X 3 NASH GARCIA Hyperlipidemia, mixed 06/30/2015 DR HUDSON, Hypertension, essential 06/30/2015 NASH GARCIA CARD- controlled with medication Joint pain PAIN MANAGMENT WILLARD CRUZ Living will on file 04/06/2022 DPA: [place] () Lumbar radiculopathy 04/28/2020 R L4 radiculopathy 04/2020 Medicare annual wellness visit, initial 04/06/2022 Medicare part B: 11/03/2019 Last done: 04/06/2022 Mild intermittent asthma without complication 02/10/2011 DENIES PROBLEMS, DENIES INHALERS Morbid obesity (HCC) 01/10/2012 NATALIE (obstructive sleep apnea) 09/10/2019 On BiPAP and sees VENTURA Schaffer Osteoarthritis of both knees 02/02/2017 Other intervertebral disc displacement, lumbosacral region 02/23/2023 PONV (postoperative nausea and vomiting) Postherpetic neuralgia 03/14/2014 Right mid-trunk area. 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 Psoriasis 10/23/2017 Rash bilateral forearms Rosacea 04/19/2013 Shingles 2014 Spinal stenosis of lumbar region without neurogenic claudication 03/19/2021 DR SNADOVAL FOLLOWING Spondylolisthesis of lumbar region 02/23/2023 Stage 3a chronic kidney disease (HCC) 03/19/2021 GERALD CALHOUN AND WILLARD HARRINGTON Uncontrolled type 2 diabetes mellitus with hyperglycemia ([facility]) 12/24/2019 Seeing GERALD Marte Uses roller walker Vitamin D deficiency 03/19/2021 Wears glasses reading Previous Surgical History PAST SURGICAL HISTORY Procedure Laterality Date ANESTH, HYSTERECTOMY 2000 ANESTHESIA NOSE AND ACCESSORY SINUSES NOS 1995 CHOLECYSTECTOMY 1989 COLONOSCOPY FLX DX W/COLLJ SPEC WHEN PFRMD 04/18/2011 X3 HEART CATHETERIZATION 2001 HEART CA (more content not included)... Normal [facility] HbA1c (Bld)on 05-31-2024 Average glucose Estimated from glycated hemoglobin (Bld) [Mass/Vol] 163 mg/dL Normal [facility] Comment on above: Order Comment: Speci men Type: BLOOD SPECIMENOrdering Facility: [facility] Address: [address] [place] [address] Result Comment: eAG: (Estimated average glucose) is a calculated value from HgbA1c and is outbound call center representative of the average blood glucose level in the last 2-3 month period. Performed By: #### 5 5454-3 ####[facility] LABCLIA [id number] [facility] [id number] [address] [place] HbA1c (Bld) [Mass fraction] 7.3 % High 4.3-5.6 [facility] Comment on above: Order Comment: Oleg najera Type: BLOOD SPECIMENOrdering Facility: [facility] Address: [address] [place] [address] Result Comment: Jt [place] Diabetes Association guidelines indicate that patients with HgbA1c in the range 5.7-6.4% are at increased risk for development of diabetes, and intervention by lifestyle modification may be beneficial. HgbA1c greater or equal to 6.5% is considered diagnostic of diabetes. Performed By: #### 5 5454-3 ####[facility] LABCLIA [id number] [place] [address] [place] TSH SerPl-aCncon 05-31-2024 TSH Qn 0.243 m[IU]/L Low 0.270-4.200 [facility] Comment on above: Order Comment: Oleg najera Type: BLOOD SPECIMENOrdering Facility: [facility] Address: [address] [place] [address] Performed By: #### 3 016-3 ####[facility] LABCLIA [id number] [place] [address] [place] 25(OH)D3 SerPl-mCncon 2023 25-hydroxyvitamin D3 [Mass/Vol] 39.3 ng/mL Normal 31.0-80.0 [facility] Comment on above: Order Comment: Jessii men Type: BLOOD SPECIMENOrdering Facility: [facility] Address: [address] [place] [address] Performed By: #### 1 989-3 ####[facility] LABIA [id number] [place] [address] [place] CBC W Auto Differential pane l (Bld)on 05-28-2024 Basophils (Bld) [#/Vol] 0.09 10*3/uL Normal <0.11 [facility] Comment on above: Order Comment: Jessii men Type: BLOOD SPECIMENOrdering Facility: [facility] Address: [address] [place] [address] Performed By: #### 5 7021-8 ####[facility] LABCLIA [id number] [place] [address] [place] Basophils/100 WBC (Bld) 0.7 % Normal C [facility] Comment on above: Order Comment: Speci men Type: BLOOD SPECIMENOrdering Facility: [facility] Address: [address] [place] [address] Performed By: #### 5 7021-8 ####[facility] LABCLIA [id number] [place] [address] [place] Differential cell count method Nom (Bld) Auto Normal [facility] Comment on above: Order Comment: Speci men Type: BLOOD SPECIMENOrdering Facility: [facility] Address: [address] [place] [address] Performed By: #### 5 7021-8 ####[facility] LABCLIA [id number] [place] [address] [place] Eosinophils (Bld) [#/Vol] 0.14 10*3/uL Normal <0.46 [facility] Comment on above: Order Comment: Speci men Type: BLOOD SPECIMENOrdering Facility: [facility] Address: [address] [place] [address] Performed By: #### 5 7021-8 ####[facility] LABCLIA [id number] [place] [address] [place] Eosinophils/100 WBC (Bld) 1.1 % Normal [facility] Comment on above: Order Comment: Speci men Type: BLOOD SPECIMENOrdering Facility: [facility] Address: [address] [place] [address] Performed By: #### 5 7021-8 ####[facility] LABCLIA [id number] [place] [address] [place] Erythrocyte distribution width (RBC) [Ratio] 18.1 % High 11.5-15.0 [facility] Comment on above: Order Comment: Speci men Type: BLOOD SPECIMENOrdering Facility: [facility] Address: [address] [place] [address] Performed By: #### 5 7021-8 ####[facility] LABIA [id number] [place] [address] [place] Hematocrit (Bld) [Volume fraction] 39.8 % Normal 36.0-46.0 [facility] Comment on above: Order Comment: Speci men Type: BLOOD SPECIMENOrdering Facility: [facility] Address: [address] [place] [address] Performed By: #### 5 7021-8 ####[facility] LABIA [id number] [place] [address] [place] Hemoglobin (Bld) [Mass/Vol] 11.9 g/dL Normal 11.5-15.5 [facility] Comment on above: Order Comment: Speci men Type: BLOOD SPECIMENOrdering Facility: [facility] Address: [address] [place] [address] Performed By: #### 5 7021-8 ####[facility] LABIA [id number] [place] [address] [place] Immature granulocytes (Bld) [#/Vol] 0.22 10*3/uL High <0.10 [facility] Comment on above: Order Comment: Speci men Type: BLOOD SPECIMENOrdering Facility: [facility] Address: [address] [place] [address] Performed By: #### 5 7021-8 ####[facility] LABIA [id number] [place] [address] [place] Immature granulocytes/100 WBC (Bld) 1.8 % Normal [facility] Comment on above: Order Comment: Speci men Type: BLOOD SPECIMENOrdering Facility: [facility] Address: [address] [place] [address] Performed By: #### 5 7021-8 ####[facility] LABCLIA [id number] [place] [address] [place] Lymphocytes (Bld) [#/Vol] 1.80 10*3/uL Normal 1.00-4.00 [facility] Comment on above: Order Comment: Speci men Type: BLOOD SPECIMENOrdering Facility: [facility] Address: [address] [place] [address] Performed By: #### 5 7021-8 ####[facility] LABCLIA [id number] [place] [address] [place] Lymphocytes/100 WBC (Bld) 14.5 % Normal [facility] Comment on above: Order Comment: Speci men Type: BLOOD SPECIMENOrdering Facility: [facility] Address: [address] [place] [address] Performed By: #### 5 7021-8 ####[facility] LABCLIA [id number] [place] [address] [place] MCH (RBC) [Entitic mass] 27.3 pg Normal 26.0-34.0 [facility] Comment on above: Order Comment: Speci men Type: BLOOD SPECIMENOrdering Facility: [facility] Address: [address] [place] [address] Performed By: #### 5 7021-8 ####[facility] LABCLIA [id number] [place] [address] [place] MCHC (RBC) [Mass/Vol] 29.9 g/dL Low 30.5-36.0 [facility] Comment on above: Order Comment: Speci men Type: BLOOD SPECIMENOrdering Facility: [facility] Address: [address] [place] [address] Performed By: #### 5 7021-8 ####[facility] LABCLIA [id number] [place] [address] [place] MCV (RBC) [Entitic vol] 91.3 fL Normal 80.0-100.[address] [facility] Comment on above: Order Comment: Speci men Type: BLOOD SPECIMENOrdering Facility: [facility] Address: [address] [place] [address] Performed By: #### 5 7021-8 ####[facility] LABCLIA [id number] [place] [address] [place] Monocytes (Bld) [#/Vol] 0.94 10*3/uL High <0.87 [facility] Comment on above: Order Comment: Speci men Type: BLOOD SPECIMENOrdering Facility: [facility] Address: [address] [place] [address] Performed By: #### 5 7021-8 ####[facility] LABCLIA [id number] [place] [address] [place] Monocytes/100 WBC (Bld) 7.6 % Normal C [facility] Comment on above: Order Comment: Speci men Type: BLOOD SPECIMENOrdering Facility: [facility] Address: [address] [place] [address] Performed By: #### 5 7021-8 ####[facility] LABCLIA [id number] [place] [address] [place] Neutrophils (Bld) [#/Vol] 9.25 10*3/uL High 1.45-7.50 [facility] Comment on above: Order Comment: Speci men Type: BLOOD SPECIMENOrdering Facility: [facility] Address: [address] [place] [address] Performed By: #### 5 7021-8 ####[facility] LABCLIA [id number] [place] [address] [place] Neutrophils/100 WBC (Bld) 74.3 % Normal [facility] Comment on above: Order Comment: Speci men Type: BLOOD SPECIMENOrdering Facility: [facility] Address: [address] [place] [address] Performed By: #### 5 7021-8 ####[facility] LABCLIA [id number] [place] [address] [place] Nucleated RBC (Bld) [#/Vol] 0.03 10*3/uL High <0.01 [facility] Comment on above: Order Comment: Speci men Type: BLOOD SPECIMENOrdering Facility: [facility] Address: [address] [place] [address] Performed By: #### 5 7021-8 ####[facility] LABIA [id number] [place] [address] [place] Nucleated RBC/100 WBC (Bld) [Ratio] 0.2 /100 WBC Normal [facility] Comment on above: Order Comment: Speci men Type: BLOOD SPECIMENOrdering Facility: [facility] Address: [address] [place] [address] Performed By: #### 5 7021-8 ####[facility] LABIA [id number] [place] [address] [place] Platelet mean volume (Bld) [Entitic vol] 8.8 fL Low 9.0-12.7 [facility] Comment on above: Order Comment: Speci men Type: BLOOD SPECIMENOrdering Facility: [facility] Address: [address] [place] [address] Performed By: #### 5 7021-8 ####[facility] LABCLIA [id number] [place] [address] [place] Platelets (Bld) [#/Vol] 272 10*3/uL Normal 150-400 [facility] Comment on above: Order Comment: Speci men Type: BLOOD SPECIMENOrdering Facility: [facility] Address: [address] [place] [address] Performed By: #### 5 7021-8 ####[facility] LABCLIA [id number] [address] [address] [place] RBC (Bld) [#/Vol] 4.36 10*6/uL Normal 3.90-5.20 [facility] Comment on above: Order Comment: Speci men Type: BLOOD SPECIMENOrdering Facility: [facility] Address: [address] [place] [address] Performed By: #### 5 7021-8 ####[facility] LABIA [id number] [place] [address] [place] WBC (Bld) [#/Vol] 12.44 10*3/uL High 3.70-11.00 [facility] Comment on above: Order Comment: Speci men Type: BLOOD SPECIMENOrdering Facility: [facility] Address: [address] [place] [address] Performed By: #### 5 7021-8 ####[facility] [id number] [place] [address] [place] Comprehensive metabolic 2000 panelon 05-28-2024 Albumin [Mass/Vol] 3.9 g/dL Normal 3.9-4.9 [facility] Comment on above: Order Comment: Speci men Type: BLOOD SPECIMENOrdering Facility: [facility] Address: [address] [place] [address] Performed By: #### 2 4323-8, LIPNF ####[facility] [id number] [place] [address] [place] ALP [Catalytic activity/Vol] 64 U/L Normal 34-123 [facility] Comment on above: Order Comment: Speci men Type: BLOOD SPECIMENOrdering Facility: [facility] Address: [address] [place] [address] Performed By: #### 2 4323-8, LIPNF ####[facility] LABIA [id number] [address] [place] [address] [place] ALT [Catalytic activity/Vol] 23 U/L Normal 7-38 [facility] Comment on above: Order Comment: Speci men Type: BLOOD SPECIMENOrdering Facility: [facility] Address: [address] [id number] Performed By: #### 2 4323-8, LIPNF ####[facility] LABCLIA [id number] [place] [address] [place] Anion gap [Moles/Vol] 16 mmol/L High 8-15 [facility] Comment on above: Order Comment: Speci men Type: BLOOD SPECIMENOrdering Facility: [facility] Address: [address] [place] [address] Performed By: #### 2 4323-8, LIPNF ####[facility] LABCLIA [id number] [place] [address] [place] AST [Catalytic activity/Vol] 17 U/L Normal 13-35 [facility] Comment on above: Order Comment: Speci men Type: BLOOD SPECIMENOrdering Facility: [facility] Address: [address] [place], [place] [address] Performed By: #### 2 4323-8, LIPNF ####[facility] LABCLIA [id number] [place] [address] [place] Bilirubin [Mass/Vol] 0.5 mg/dL Normal 0.2-1.3 [facility] Comment on above: Order Comment: Speci men Type: BLOOD SPECIMENOrdering Facility: [facility] Address: [address] [id number] Performed By: #### 2 4323-8, LIPNF ####[facility] LABCLIA [id number] [place] [address] [place] Calcium [Mass/Vol] 9.7 mg/dL Normal 8.5-10.2 [facility] Comment on above: Order Comment: Speci men Type: BLOOD SPECIMENOrdering Facility: [facility] Address: [address] [place] [address] Performed By: #### 2 4323-8, LIPNF ####[facility] LABCLIA [id number] [place] [address] [place] Chloride [Moles/Vol] 102 mmol/L Normal 98-107 [facility] Comment on above: Order Comment: Speci men Type: BLOOD SPECIMENOrdering Facility: [facility] Address: [address] [place] [address] Performed By: #### 2 4323-8, LIPNF ####[facility] LABCLIA [id number] [place] [address] [place] CO2 [Moles/Vol] 26 mmol/L Normal 22-30 [facility] Comment on above: Order Comment: Speci men Type: BLOOD SPECIMENOrdering Facility: [facility] Address: [address] [place] [address] Performed By: #### 2 4323-8, LIPNF ####[facility] LABCLIA [id number] [place] [address] [place] Creatinine [Mass/Vol] 1.15 mg/dL High 0.58-0.96 [facility] Comment on above: Order Comment: Speci men Type: BLOOD SPECIMENOrdering Facility: [facility] Address: [address] [place] [address] Performed By: #### 2 4323-8, LIPNF ####[facility] LABCLIA [id number] [place] [address] [place] Creatinine and Glomerular filtration rate.predicted panel (S/P/Bld) 52 mL/min/1.73m??? Low >=60 [facility] Comment on above: Order Comment: Speci men Type: BLOOD SPECIMENOrdering Facility: [facility] Address: [address] [place] [address] Result Comment: Poornima mated Glomerular Filtration Rate (eGFR) is calculated using the 2020 CKD-EPI creatinine equation. This equation utilizes serum creatinine, sex, and age as parameters. The creatinine assay has traceable calibration to isotope dilution-mass spectrometry. Refer to KDIGO guidelines for clinical interpretation. In patients with unstable renal function, e.g. those with acute kidney injury, the eGFR may not accurately reflect actual GFR. Performed By: #### 2 4323-8, LIPNF ####[facility] LABCLIA [id number] [place] [address] [place] Glucose [Mass/Vol] 119 mg/dL High 74-99 [facility] Comment on above: Order Comment: Speci dania Type: BLOOD SPECIMENOrdering Facility: [facility] Address: [address] [place] [address] Result Comment: The [place] Diabetes Association (ADA) provides guidance for cutoff values for fasting glucose and random glucose. The ADA defines fasting as no caloric intake for at least 8 hours. Fasting plasma glucose results between 100 to 125 mg/dL indicate increased risk for diabetes (prediabetes). Fasting plasma glucose results greater than or equal to 126 mg/dL meet the criteria for diagnosis of diabetes. In the absence of unequivocal hyperglycemia, results should be confirmed by repeat testing. In a patient with classic symptoms of hyperglycemia or hyperglycemic crisis, random plasma glucose results greater than or equal to 200 mg/dL meet the criteria for diagnosis of diabetes. Reference: Standards of Medical Care in Diabetes 2016, [place] [employer] Association. Diabetes Care. 2016.39(Suppl 1). Performed By: #### 2 4323-8, LIPNF ####[facility] LABCLIA [id number] [place] [address] [place] Potassium [Moles/Vol] 4.1 mmol/L Normal 3.7-5.1 [facility] Comment on above: Order Comment: Oleg najera Type: BLOOD SPECIMENOrdering Facility: [facility] Address: [address] [id number] Performed By: #### 2 4323-8, LIPNF ####[facility] LABCLIA [id number] [place] [address] [place] Protein [Mass/Vol] 6.4 g/dL Normal 6.3-8.0 [facility] Comment on above: Order Comment: Speci men Type: BLOOD SPECIMENOrdering Facility: [facility] Address: [address] [place] [address] Performed By: #### 2 4323-8, LIPNF ####[facility] LABCLIA [id number] [place] [address] [place] Sodium [Moles/Vol] 144 mmol/L Normal 136-144 [facility] Comment on above: Order Comment: Speci men Type: BLOOD SPECIMENOrdering Facility: [facility] Address: [address] [place] [address] Performed By: #### 2 4323-8, LIPNF ####[facility] LABCLIA [id number] [place] [address] [place] Urea nitrogen [Mass/Vol] 19 mg/dL Normal 7-21 [facility] Comment on above: Order Comment: Speci men Type: BLOOD SPECIMENOrdering Facility: [facility] Address: [address] [place] [address] Performed By: #### 2 4323-8, LIPNF ####[facility] LABCLIA [id number] [place] [address] [place] LIPID PANEL, NONFASTINGon Cholesterol [Mass/Vol] 143 mg/dL Normal <200 [facility] Comment on above: Order Comment: Speci men Type: BLOOD SPECIMENOrdering Facility: [facility] Address: [address] [place] [address] Result Comment: <200 mg/dL, Desirable 200-239 mg/dL, Borderline high >239 mg/dL, High Performed By: #### 2 4323-8, LIPNF ####[facility] LABCLIA [id number] [place] [address] [place] HDL CHOLESTEROL, NF 63 mg/dL Normal >39 [facility] Comment on above: Order Comment: Speci men Type: BLOOD SPECIMENOrdering Facility: [facility] Address: [address] [place] [address] Result Comment: 40-5 9 mg/dL, Acceptable >59 mg/dL, High: Negative risk factor for coronary heart disease <40 mg/dL, Low: Positive risk factor for coronary heart disease Performed By: #### 2 4323-8, LIPNF ####[facility] LABCLIA [id number] [address] [facility] LDL CHOLESTEROL, NF 51 mg/dL Normal <100 [facility] Comment on above: Order Comment: Speci men Type: BLOOD SPECIMENOrdering Facility: [facility] Address: [address] [place] [address] Result Comment: <100 mg/dL, Optimal 100-129 mg/dL, Near optimal/above optimal 130-159 mg/dL, Borderline high 160-189 mg/dL, High >189 mg/dL, Very high Secondary prevention optimal LDL Cholesterol levels are recommended to be < 70 mg/dL Performed By: #### 2 4323-8, LIPNF ####[facility] LABCLIA [id number] [place] LDL/HDL RATIO, NF 0.81 mg/dL Normal <2.54 [facility] Comment on above: Order Comment: Speci dania Type: BLOOD SPECIMENOrdering Facility: [facility] Address: [address] [place] [address] Result Comment: Refe rence: 1. National Cholesterol Education Program ATP III Guideline At-A-Glance Quick Desk Reference: National Heart, Lung, and Blood [place]. National Institutes of Health. 2001: NIH Publication No. 01-3305. 2. An International Atherosclerosis Society position paper: global recommendations for the management of dyslipidemia: executive summary, Atherosclerosis. 2014: 232(2):410-413. Performed By: #### 2 4323-8, LIPNF ####[facility] LABCLIA [id number] [place] [address] [place] NON HDL CHOL, NF 80 mg/dL Normal <130 [facility] Comment on above: Order Comment: Speci men Type: BLOOD SPECIMENOrdering Facility: [facility] Address: [address] [place] [address] Result Comment: <130 mg/dL, Optimal 130-159 mg/dL, Near optimal/above optimal 160-189 mg/dL, Borderline high 190-219 mg/dL, High >219 mg/dL, Very high Secondary prevention optimal non HDL Cholesterol levels are recommended to be <100 mg/dL Performed By: #### 2 4323-8, LIPNF ####[facility] LABCLIA [id number] [place] [address] [place] T CHOL/HDL RATIO NF 2.27 mg/dL Normal <5.10 [facility] Comment on above: Order Comment: Speci men Type: BLOOD SPECIMENOrdering Facility: [facility] Address: [address] [place] [address] Performed By: #### 2 4323-8, LIPNF ####[facility] LABCLIA [id number] [place] [address] [place] TRIGLYCERIDES, NF 147 mg/dL Normal <150 [facility] Comment on above: Order Comment: Speci men Type: BLOOD SPECIMENOrdering Facility: [facility] Address: [address] [place] [address] Result Comment: <150 mg/dL, Normal 150-199 mg/dL, Borderline high 200-499 mg/dL, High >499 mg/dL, Very high Performed By: #### 2 4323-8, LIPNF ####[facility] LABCLIA [id number] [place] [address] [place] VLDL CHOLESTEROL, NF 29 mg/dL Normal <30 [facility] Comment on above: Order Comment: Speci men Type: BLOOD SPECIMENOrdering Facility: [facility] Address: [address] [place] [address] Performed By: #### 2 4323-8, LIPNF ####[facility] LABCLIA [id number] [place] [address] [place] Pulmonary Visit Reporton Pulmonary Visit Report Normal [facility] Urinalysis complete panel (U )on 05-28-2024 Bacteria LM.HPF (Urine sed) [#/Area] Negative Normal Negative [facility] Comment on above: Order Comment: Speci men Type: URINE SPECIMENOrdering Facility: [facility] Address: [address] [place] [address] Performed By: #### 2 4356-8 ####[facility] LABCLIA [id number] [place] [address] [place] Bilirubin Ql (U) Negative Normal Negative [facility] Comment on above: Order Comment: Speci men Type: URINE SPECIMENOrdering Facility: [facility] Address: [address] [place] [address] Performed By: #### 2 4356-8 ####[facility] LABCLIA [id number] [place] [address] [place] Clarity (Unsp spec) Clear Normal Clear [facility] Comment on above: Order Comment: Speci men Type: URINE SPECIMENOrdering Facility: [facility] Address: [address] [place] [address] Performed By: #### 2 4356-8 ####[facility] LABCLIA [id number] [place] [address] [place] Color (U) Yellow Normal Yellow [facility] Comment on above: Order Comment: Speci men Type: URINE SPECIMENOrdering Facility: [facility] Address: [address] [place] [address] Performed By: #### 2 4356-8 ####[facility] LABCLIA [id number] [place] [address] [place] Epithelial cells LM.HPF (Urine sed) [#/Area] None Seen Normal [facility] Comment on above: Order Comment: Speci men Type: URINE SPECIMENOrdering Facility: [facility] Address: [address] [place] [address] Performed By: #### 2 4356-8 ####[facility] LABCLIA [id number] [place] [address] [place] Glucose Test strip (U) [Mass/Vol] 2+ Abnormal Negative [facility] Comment on above: Order Comment: Speci men Type: URINE SPECIMENOrdering Facility: [facility] Address: [address] [place] [address] Performed By: #### 2 4356-8 ####[facility] LABCLIA [id number] [place] [address] [place] Hemoglobin Ql (U) Negative Normal Negative [facility] Comment on above: Order Comment: Speci men Type: URINE SPECIMENOrdering Facility: [facility] Address: [address] [place] [address] Performed By: #### 2 4356-8 ####[facility] LABCLIA [id number] [place] [address] [place] Hyaline casts (Urine sed) [#/Area] 0 /[LPF] Normal 0 /LPF [facility] Comment on above: Order Comment: Speci men Type: URINE SPECIMENOrdering Facility: [facility] Address: [address] [place] [address] Performed By: #### 2 4356-8 ####[facility] LABCLIA [id number] [place] [address] [place] Ketones Ql (U) Negative Normal Negative [facility] Comment on above: Order Comment: Speci men Type: URINE SPECIMENOrdering Facility: [facility] Address: [address] [place] [address] Performed By: #### 2 4356-8 ####[facility] LABCLIA [id number] [place] [address] [place] Leukocyte esterase Test strip Ql (U) Negative Normal Negative [facility] Comment on above: Order Comment: Speci men Type: URINE SPECIMENOrdering Facility: [facility] Address: [address] [place] [address] Performed By: #### 2 4356-8 ####[facility] LABCLIA [id number] [place] [address] [place] Nitrite Ql (U) Negative Normal Negative [facility] Comment on above: Order Comment: Speci men Type: URINE SPECIMENOrdering Facility: [facility] Address: [address] [place] [address] Performed By: #### 2 4356-8 ####[facility] LABCLIA [id number] [place] [address] [place] pH (U) 6.0 [pH] Normal <8.5 [facility] Comment on above: Order Comment: Speci men Type: URINE SPECIMENOrdering Facility: [facility] Address: [address] [place] [address] Performed By: #### 2 4356-8 ####[facility] LABCLIA [id number] [place] [address] [place] Protein (U) [Mass/Vol] Negative Normal Negative [facility] [facility] Comment on above: Order Comment: Speci men Type: URINE SPECIMENOrdering Facility: [facility] Address: [address] [place] [address] Performed By: #### 2 4356-8 ####[facility] LABCLIA [id number] [place] [address] [place] RBC LM.HPF (Urine sed) [#/Area] 0-2 /HPF Normal 0-2 /HPF [facility] Comment on above: Order Comment: Speci men Type: URINE SPECIMENOrdering Facility: [facility] Address: [address] [place] [address] Performed By: #### 2 4356-8 ####[facility] LABIA [id number] [place] [id number] [place] Specific gravity (U) [Rel density] 1.011 Normal 1.005-1.030 [facility] Comment on above: Order Comment: Speci men Type: URINE SPECIMENOrdering Facility: [facility] Address: [address] [place] [address] Performed By: #### 2 4356-8 ####[facility] [id number] [place] [id number] [place] Urobilinogen Ql (U) 0.2 EU/dL Normal 0.2-1.0 EU/dL [facility] Comment on above: Order Comment: Speci men Type: URINE SPECIMENOrdering Facility: [facility] Address: [address] [place] [address] Performed By: #### 2 4356-8 ####[facility] [id number] [place] [id number] [place] WBC LM.HPF (Urine sed) [#/Area] 0-5 /HPF Normal 0-5 /HPF [facility] Comment on above: Order Comment: Speci men Type: URINE SPECIMENOrdering Facility: [facility] Address: [address] [place] [address] Performed By: #### 2 4356-8 ####[facility] [id number] [place] [id number] [place] Basic Metabolic Profile (BMP )on 05-09-2024 BUN/CRE 18.3 RATIO Normal 10-20 [facility] Comment on above: Performed By: #### L 500.2500, L501.6710, L300.3900, L100.0100 ####[facility] [address] [place], [place], [id number] CA,Total 9.7 mg/dL Normal 8.5-10.1 [facility] Comment on above: Performed By: #### L 500.2500, L501.6710, L300.3900, L100.0100 ####[facility] [address] [place], [address] Chloride [Moles/Vol] 103 mmol/L Normal 98-107 [facility] Comment on above: Performed By: #### L 500.2500, L501.6710, L300.3900, L100.0100 ####[facility] [address] [place], [address] CO2 [Moles/Vol] 30.0 mmol/L Normal 21.0-32.0 [facility] Comment on above: Performed By: #### L 500.2500, L501.6710, L300.3900, L100.0100 ####[facility] [address] [place], [address] Creatinine [Mass/Vol] 1.31 mg/dL High 0.55-1.02 [facility] Comment on above: Result Comment: The validity of the calculated GFR GFRAA in patients over70 years has not been determined. Clinical correlation isessential. Performed By: #### L 500.2500, L501.6710, L300.3900, L100.0100 ####[facility] [address] [place], [address] EST GFR - AA 52 mL/min Low >60 [facility] Comment on above: Result Comment: Afri can Palauan GFR Calc Performed By: #### L 500.2500, L501.6710, L300.3900, L100.0100 ####[facility] [address] [place], [address] GAP 6 Normal 5-15 [facility] Comment on above: Performed By: #### L 500.2500, L501.6710, L300.3900, L100.0100 ####[facility] [address] [place], [address] GFR/1.73 sq M.predicted among non-blacks MDRD (S/P/Bld) [Vol rate/Area] 43 mL/min/{1.73_m2} Low >60 [facility] Comment on above: Result Comment: Non- GFR Calc Performed By: #### L 500.2500, L501.6710, L300.3900, L100.0100 ####[facility] [address] [place], [address] Glucose [Mass/Vol] 150 mg/dL High 74-106 [facility] Comment on above: Result Comment: Fast ing Glucose result greater than or equal to 126 mg/dLsuggests DIABETES MELLITUS per A.D.A. criteria. Performed By: #### L 500.2500, L501.6710, L300.3900, L100.0100 ####[facility] [address] [place], [address] Potassium [Moles/Vol] 3.9 mmol/L Normal 3.5-5.1 [facility] Comment on above: Performed By: #### L 500.2500, L501.6710, L300.3900, L100.0100 ####[facility] [address] [place], [address] Sodium [Moles/Vol] 139 mmol/L Normal 136-145 [facility] Comment on above: Performed By: #### L 500.2500, L501.6710, L300.3900, L100.0100 ####[facility] [address] [place], [address] Urea nitrogen [Mass/Vol] 24 mg/dL High 7-18 [facility] Comment on above: Performed By: #### L 500.2500, L501.6710, L300.3900, L100.0100 ####[facility] [address] [place], [address] CBC W/Diff, Automatedon 09-0 5-2024 Absolute Lymph 0.69 X10 3/uL Low 0.83-4.51 [facility] Comment on above: Performed By: #### L 500.2500, L501.6710, L300.3900, L100.0100 ####[facility] [address] [place], [address] Absolute Neut 10.7 X10 3/uL High 2.0-7.7 [facility] Comment on above: Performed By: #### L 500.2500, L501.6710, L300.3900, L100.0100 ####[facility] [address] [place], [address] Basophils/100 WBC (Bld) 0.4 % Normal 0-1 [facility] Comment on above: Performed By: #### L 500.2500, L501.6710, L300.3900, L100.0100 ####[facility] [address] [place], [address] Eosinophils/100 WBC (Bld) 0.0 % Normal 0-5 [facility] Comment on above: Performed By: #### L 500.2500, L501.6710, L300.3900, L100.0100 ####[facility] [address] [place], [address] Erythrocyte distribution width (RBC) [Ratio] 16.6 % High 11.6-14.6 [facility] Comment on above: Performed By: #### L 500.2500, L501.6710, L300.3900, L100.0100 ####[facility] [address] [place], [address] Hematocrit (Bld) [Volume fraction] 38.9 % Normal 37-47 [facility] Comment on above: Performed By: #### L 500.2500, L501.6710, L300.3900, L100.0100 ####[facility] [address] [place], [address] Hemoglobin (Bld) [Mass/Vol] 11.8 g/dL Low 12.0-15.0 [facility] Comment on above: Performed By: #### L 500.2500, L501.6710, L300.3900, L100.0100 ####[facility] [address] [place], [address] IG% 2.200 High 0.0-0.9 [facility] Comment on above: Result Comment: IG% - Immature Granulocytes (promyelocytes, myelocytes andmetamyelocytes) > 1% indicates that a LEFT SHIFT is Present. Performed By: #### L 500.2500, L501.6710, L300.3900, L100.0100 ####[facility] [address] [place], [address] Lymphocytes/100 WBC (Bld) 5.6 % Low 19-41 [facility] Comment on above: Performed By: #### L 500.2500, L501.6710, L300.3900, L100.0100 ####[facility] [address] [place], [address] MCH (RBC) [Entitic mass] 26.3 pg Low 27.0-32.0 [facility] Comment on above: Performed By: #### L 500.2500, L501.6710, L300.3900, L100.0100 ####[facility] [address] [place], [address] MCHC (RBC) [Mass/Vol] 30.3 g/dL Low 32-36 [facility] Comment on above: Performed By: #### L 500.2500, L501.6710, L300.3900, L100.0100 ####[facility] [address] [place], [address] MCV (RBC) [Entitic vol] 86.6 fL Normal 81-99 [facility] Comment on above: Performed By: #### L 500.2500, L501.6710, L300.3900, L100.0100 ####[facility] [address] [place], [address] Monocytes/100 WBC (Bld) 5.3 % Normal 0-10 [facility] Comment on above: Performed By: #### L 500.2500, L501.6710, L300.3900, L100.0100 ####[facility] [address] [place], [address] Neutrophils/100 WBC (Bld) 86.5 % High 47-70 [facility] Comment on above: Performed By: #### L 500.2500, L501.6710, L300.3900, L100.0100 ####[facility] [address] [place], [address] Nucleated RBC (Bld) [#/Vol] 0 10*3/uL Normal 0-5 [facility] Comment on above: Performed By: #### L 500.2500, L501.6710, L300.3900, L100.0100 ####[facility] [address] [place], [address] Platelet mean volume (Bld) [Entitic vol] 9.1 fL Normal 6.2-12.0 [facility] Comment on above: Performed By: #### L 500.2500, L501.6710, L300.3900, L100.0100 ####[facility] [address] [place], [address] Platelets (Bld) [#/Vol] 187 10*3/uL Normal 150-450 [facility] Comment on above: Performed By: #### L 500.2500, L501.6710, L300.3900, L100.0100 ####[facility] [address] [place], [address] RBC (Bld) [#/Vol] 4.49 10*6/uL Normal 4.2-5.4 [facility] Comment on above: Performed By: #### L 500.2500, L501.6710, L300.3900, L100.0100 ####[facility] [address] [place], [address] RDW SD 51.8 fl High 35.1-43.9 [facility] Comment on above: Performed By: #### L 500.2500, L501.6710, L300.3900, L100.0100 ####[facility] [address] [place], [address] WBC (Bld) [#/Vol] 12.4 10*3/uL High 4.4-11.0 [facility] Comment on above: Performed By: #### L 500.2500, L501.6710, L300.3900, L100.0100 ####[facility] [address] [place], [address] CNOVon 05-09-2024 CNOV Office Visit [facility] DERRELL GERMAN ([id number]) 1955 F Date Time Provider Department 05/09/24 1:40 PM PADMINI ANGUIANO [facility] During your visit today, we recorded the following information about you: Temperature Pulse Respiration Blood pressure 98.2 degrees 102/minute 14/minute 118/75 Weight 136.5 kg Padmini Anguiano, OSCAR.ENROLLMENT REPRESENTATIVE 05/09/2024 1:51 PM Signed Chief Complaint Patient presents with: Edema: Left leg X 1 day HPI Derrell German is a 68 year old female who presents here today for Above Complaints.. Patient presents for concern for cellulitis at the advice of rheumatology. Patient reports her left lower leg looked normal upon waking but now is very red and quickly getting more red and has become painful. Patient also reports large amount of bruising to abdomen just from wearing seat belt. No injury. Past medical history, appointments, medications, allergies reviewed. Previous Medical History PAST MEDICAL HISTORY 04/06/2022: Advance directive discussed with patient Comment: Discussed 04/202202/10/2011: Allergic rhinitis 03/08/2019: ASHD (arteriosclerotic heart disease) Comment: Seeing Dr. Hudson No date: Asthma Comment: Dr. 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 No date: History of left heart catheterization Comment: HEART CATH X2 STENTS X 3 NASH GARCIA 06/30/2015: Hyperlipidemia, mixed Comment: DR HUDSON, 06/30/2015: Hypertension, essential Comment: NASH GARCIA CARD- controlled with medication No date: Joint pain Comment: PAIN MANAGMENT WILLARD CRUZ 04/06/2022: Living will on file Comment: DPA: [place] () 04/28/2020: Lumbar radiculopathy Comment: R L4 radiculopathy 04/202004/06/2022: Medicare annual wellness visit, initial Comment: Medicare part B: 11/03/2019 Last done: 04/06/2022 02/10/2011: Mild intermittent asthma without complication Comment: DENIES PROBLEMS, DENIES INHALERS 01/10/2012: Morbid obesity (HCC) 09/10/2019: NATALIE (obstructive sleep apnea) Comment: On BiPAP and sees VENTURA Schaffer 02/02/2017: Osteoarthritis of both knees 02/23/2023: Other intervertebral disc displacement, lumbosacral region No date: PONV (postoperative nausea and vomiting) 03/14/2014: Postherpetic neuralgia Comment: Right mid-trunk area. No date: Postsurgical hypothyroidism Comment: followed by Dr. Marques 10/23/2017: Psoriasis No date: Rash Comment: bilateral forearms 04/19/2013: Rosacea No date: Shingles Comment: 201303/19/2021: Spinal stenosis of lumbar region without neurogenic claudication Comment: DR SANDOVAL FOLLOWING 02/23/2023: Spondylolisthesis of lumbar region 03/19/2021: Stage 3a chronic kidney disease (HCC) Comment: GERALD CALHOUN AND WILLARD [facility] 12/24/2019: Uncontrolled type 2 diabetes mellitus with hyperglycemia (HCC) Comment: Seeing GERALD Marte No date: Uses roller walker 03/19/2021: Vitamin D deficiency No date: Wears glasses Comment: reading Previous Surgical History PAST SURGICAL HISTORY 2000: ANESTH, HYSTERECTOMY 1995: ANESTHESIA NOSE AND ACCESSORY SINUSES NOS 1989: CHOLECYSTECTOMY 04/18/2011: COLONOSCOPY FLX DX W/COLLJ SPEC WHEN PFRMD Comment: X3 2001: HEART CATHETERIZATION Comment: HEART CATH X2 2001 AND 2019 STENTS X3 2019 No date: PAST SURGICAL HISTORY OF Comment: L. knee No date: PAST SURGICAL HISTORY OF Comment: kidney stones 2007: PAST SURGICAL HISTORY OF; Right Comment: Knee No date: PAST SURGICAL HISTORY OF Comment: NERVE STIMULATOR AND REMOVAL MELISSA ORTH No date: REMV CATARACT EXTRACAP,INSERT LENS; Bilateral Comment: Rt 08/2019, Lt 11/201905/11/2013: STRESS TEST ADENOSINE 2001: THYROIDECTOMY TOTAL/COMPLETE 1963: TONSILLECTOMY HX Family History FAMILY HISTORY Problem Relation Age of Onset Diabetes Mother Thyroid Mother Diabetes Father Diabetes Paternal Aunt Patient Allergies ALLERGIES Allergen Reactions Amlodipine Swelling Diflucan [Fluconazo* Hives Diphth,Pertus(Acell* Hives Actos [Pioglitazone* Other: See Comments Edema BLE AND OLGA HANDS Bactrim [Sulfametho* Hives HIVES Betadine [Povidone-* Anaphylaxis SEVERE ALLERGY TO IODINE AND BETADINE Fish Anaphylaxis ALL FISH Iodine Anaphylaxis IV contrast Lipitor [Atorvastat* Rash, Itching Metformin Diarrhea, GI Upset [place] Anaphylaxis Penicillins Unknown NOT SURE A CHILD Sulfa (Sulfonamide * Swelling SWELLING AND HIVES Current Medications Current Outpatient Medications on File Prior (more content not included)... [facility] C-REACTIVE PROT < 2.90 Normal 0.0-3.0 [facility] Comment on above: Result Comment: C-Re active Protein (CRP) provides useful information for thediagnosis, therapy and monitoring of inflammatory processesand associated diseases. For the evaluation of Relative Riskfor Cardiovascular Disease, a High Sensitivity CRP (HSCRP)should be ordered. Performed By: #### L 500.2500, L501.6710, L300.3900, L100.0100 ####[facility] [address] [place], [address] Emergency Department Summary on 05-09-2024 Emergency Department Summary Normal [facility] Lactic Acidon 05-09-2024 Lactate [Moles/Vol] 2.2 mmol/L Invalid Interpretation Code 0.4-1.9 [facility] Comment on above: Order Comment: Y Result Comment: Crit ical Result(s) Called at: 16:58:32 05/09/2024 by: CAROL Results read back by Urmila NICE Performed By: #### L 503.6005 ####[facility] [address] [place], [address] Prothrombin Time w/INRon INR Coag (PPP) [Relative time] 1.0 {INR} Normal [facility] Comment on above: Performed By: #### L 500.2500, L501.6710, L300.3900, L100.0100 ####[facility] [address] [place], [address] PT Coag (PPP) [Time] 13.6 s Normal 11.7-14.9 [facility] Comment on above: Performed By: #### L 500.2500, L501.6710, L300.3900, L100.0100 ####[facility] [address] [place], [address] CRPon 05-07-2024 C-REACTIVE PROT < 2.90 Normal 0.0-3.0 [facility] Comment on above: Result Comment: C-Re active Protein (CRP) provides useful information for thediagnosis, therapy and monitoring of inflammatory processesand associated diseases. For the evaluation of Relative Riskfor Cardiovascular Disease, a High Sensitivity CRP (HSCRP)should be ordered. Performed By: #### L 101.9900, L501.6710 ####[facility] [address] [place], [address] Erythrocyte Sed Rateon 05-07 SED RATE 2 mm/hr Normal 0-30 [facility] Comment on above: Performed By: #### L 101.9900, L501.6710 ####[facility] [address] [place], [address] CRPon 04-18-2024 C-REACTIVE PROT 6.09 mg/L High 0.0-3.0 [facility] Comment on above: Result Comment: C-Re active Protein (CRP) provides useful information for thediagnosis, therapy and monitoring of inflammatory processesand associated diseases. For the evaluation of Relative Riskfor Cardiovascular Disease, a High Sensitivity CRP (HSCRP)should be ordered. Performed By: #### L 101.9900, L501.6710 ####[facility] [address] [place], [place], [phone] Erythrocyte Sed Rateon 04-18 SED RATE 15 mm/hr Normal 0-30 [facility] Comment on above: Performed By: #### L 101.9900, L501.6710 ####[facility] [address] [place], [address] CRPon 04-08-2024 C-REACTIVE PROT 8.93 mg/L High 0.0-3.0 [facility] Comment on above: Result Comment: C-Re active Protein (CRP) provides useful information for thediagnosis, therapy and monitoring of inflammatory processesand associated diseases. For the evaluation of Relative Riskfor Cardiovascular Disease, a High Sensitivity CRP (HSCRP)should be ordered. Performed By: #### L 501.6710, L101.9900 ####[facility] [address] [place], [place], [address] Erythrocyte Sed Rateon 04-08 SED RATE 12 mm/hr Normal 0-30 [facility] Comment on above: Performed By: #### L 501.6710, L101.9900 ####[facility] [address] [place], [address] HVF 24-2 FAST - OUon 024 HVF 24-2 FAST - OU Table formatting fro m the original result was not included. HVF OD Reliability Fovea MD PSD Interp 03/28/2024 Low; 3/14 FL Off N/a N/a Stim-V: central and temporal cecocentral dense defect. Mild nasal scotoma. EBS. HVF OS Reliability Fovea MD PSD Interp 03/28/2024 Low; 6/11 36 -1.59 2.13 Inferior small defects on Total and Pattern. Normal [facility] OCT OPTIC NERVE OUon 024 OCT OPTIC NERVE OU Table formatting fro m the original result was not included. RNFL OD OS Interp 03/28/2024 77 88 OD: S thinning OS: no localized NFL loss; small C/D GCC OD OS Interp 03/28/2024 57 80 OD: diffuse GCC loss OS: no localized GCC loss Normal [facility] Ophthalmic OCT panelon 03-28 Table formatting fro m the original result was not included. RNFL OD OS Interp 03/28/2024 77 88 OD: S thinning OS: no localized NFL loss; small C/D GCC OD OS Interp 03/28/2024 57 80 OD: diffuse GCC loss OS: no localized GCC loss RADIOLOGY [facility] Radiology Study observation (narrative) [facility] Perimetry studyon 03-28-2024 Table formatting fro m the original result was not included. HVF OD Reliability Fovea MD PSD Interp 03/28/2024 Low; 3/14 FL Off N/a N/a Stim-V: central and temporal cecocentral dense defect. Mild nasal scotoma. EBS. HVF OS Reliability Fovea MD PSD Interp 03/28/2024 Low; 02/12 36 -1.59 2.13 Inferior small defects on Total and Pattern. RADIOLOGY [facility] Radiology Study observation (narrative) [facility] CRPon 03-27-2024 C-REACTIVE PROT 3.55 mg/L High 0.0-3.0 [facility] Comment on above: Result Comment: C-Re active Protein (CRP) provides useful information for thediagnosis, therapy and monitoring of inflammatory processesand associated diseases. For the evaluation of Relative Riskfor Cardiovascular Disease, a High Sensitivity CRP (HSCRP)should be ordered. Performed By: #### L 101.9900, L501.6710 ####[facility] [address] [place], [place], [address] Erythrocyte Sed Rateon 03-27 SED RATE 19 mm/hr Normal 0-30 [facility] Comment on above: Performed By: #### L 101.9900, L501.6710 ####[facility] [address] [place], [place], [id number] Endocrinology Visit Reporton 03-25-2024 Endocrinology Visit Report Normal [facility] Brain W/WO Contraston 2023 Brain W/WO Contrast Normal [facility] CCP IgG Antibodieson 024 CCP IgG Ab. 3 units Normal 0-19 [facility] Comment on above: Result Comment: Nega tive <20 Weak positive 20 - 39 Moderate positive 40 - 59 Strong positive >59Performed at: - [facility] [id number] Director: Sami Moulton PhD, Phone: [phone] Performed By: #### L 3400.8000, L4600.0100, L501.6710, L101.9900 ####[facility] [address] [place], [address] Quantiferon TB-Gold+on 03-09 QFT MITOGEN ROSCOE 1.20 IU/mL Normal . [facility] Comment on above: Performed By: #### L 3400.8000, L4600.0100, L501.6710, L101.9900 ####[facility] [address] [place], [address] QFT NIL VALUE 0 IU/mL Normal . [facility] Comment on above: Performed By: #### L 3400.8000, L4600.0100, L501.6710, L101.9900 ####[facility] [address] [place], [address] QFT TB GOLD+ Comment Normal . [facility] Comment on above: Result Comment: Ariel tiFERON-TB Gold Plus is a qualitative indirect test forM tuberculosis infection (including disease) and isintended for use in conjunction with risk assessment,radiography, and other medical and diagnostic evaluations.The QuantiFERON-TB Gold Plus result is determined bysubtracting the Nil value from either TB antigen (Ag)value. The Mitogen tube serves as a control for the test. Performed By: #### L 3400.8000, L4600.0100, L501.6710, L101.9900 ####[facility] [address] [place], [address] QFT TB POS CRIT Negative Normal Negative [facility] Comment on above: Result Comment: No r esponse to M tuberculosis antigens detected.Infection with M tuberculosis is unlikely, but high riskindividuals should be considered for additional testing(ATS/IDSA/CDC Clinical Practice Guidelines, 2017). Thereference range is an Antigen minus Nil result of <0.35IU/mL.The specimen received for QuantiFERON testing was incubatedby the ordering institution. Specific procedures outlinedin our Directory of Services and in the package insert forthe QuantiFERON Gold (In Tube) test must be followed toenable for proper stimulation of cells for the productionof interferon gamma. Chemiluminescence immunoassaymethodology Performed By: #### L 3400.8000, L4600.0100, L501.6710, L101.9900 ####[facility] [address] [place], [address] QFT TB1+ AG ROSCOE 0 IU/mL Normal . [facility] Comment on above: Performed By: #### L 3400.8000, L4600.0100, L501.6710, L101.9900 ####[facility] [address] [place], [address] QFT TB2+ AG ROSCOE 0.01 IU/mL Normal . [facility] Comment on above: Performed By: #### L 3400.8000, L4600.0100, L501.6710, L101.9900 ####[facility] [address] [place], [address] CRPon 03-06-2024 C-REACTIVE PROT < 2.90 Normal 0.0-3.0 [facility] Comment on above: Result Comment: C-Re active Protein (CRP) provides useful information for thediagnosis, therapy and monitoring of inflammatory processesand associated diseases. For the evaluation of Relative Riskfor Cardiovascular Disease, a High Sensitivity CRP (HSCRP)should be ordered. Performed By: #### L 3400.8000, L4600.0100, L501.6710, L101.9900 ####[facility] [address] [place], [address] Erythrocyte Sed Rateon 03-06 SED RATE 5 mm/hr Normal 0-30 [facility] Comment on above: Performed By: #### L 3400.8000, L4600.0100, L501.6710, L101.9900 ####[facility] [address] [place], [address] Cardiology Visit Reporton Cardiology Visit Report Normal [facility] Surgery Visit Reporton 02-25 Surgery Visit Report Normal [facility] CBC W/Diff, Automatedon 02-03 Absolute Lymph 0.68 X10 3/uL Low 0.83-4.51 [facility] Comment on above: Order Comment: SHARE SPEC. IF POSSIBLE. PT TO RETURN FOR UTO TESTS Performed By: #### L 100.0100, L505.7010, L3890.6200, L500.4050, L3890.6300, L101.9900, L501.6710, L3890.6100 ####[facility] [address] [place], [place], [phone]) Absolute Neut 14.4 X10 3/uL High 2.0-7.7 [facility] Comment on above: Order Comment: SHARE SPEC. IF POSSIBLE. PT TO RETURN FOR UTO TESTS Performed By: #### L 100.0100, L505.7010, L3890.6200, L500.4050, L3890.6300, L101.9900, L501.6710, L3890.6100 ####[facility] [address] [place], [place], [phone]) Basophils/100 WBC (Bld) 0.1 % Normal 0-1 [facility] Comment on above: Order Comment: SHARE SPEC. IF POSSIBLE. PT TO RETURN FOR UTO TESTS Performed By: #### L 100.0100, L505.7010, L3890.6200, L500.4050, L3890.6300, L101.9900, L501.6710, L3890.6100 ####[facility] [address] [place], [place], [phone]) Eosinophils/100 WBC (Bld) 0.0 % Normal 0-5 [facility] Comment on above: Order Comment: SHARE SPEC. IF POSSIBLE. PT TO RETURN FOR UTO TESTS Performed By: #### L 100.0100, L505.7010, L3890.6200, L500.4050, L3890.6300, L101.9900, L501.6710, L3890.6100 ####[facility] [address] [place], [phone]) Erythrocyte distribution width (RBC) [Ratio] 16.1 % High 11.6-14.6 [facility] Comment on above: Order Comment: SHARE SPEC. IF POSSIBLE. PT TO RETURN FOR UTO TESTS Performed By: #### L 100.0100, L505.7010, L3890.6200, L500.4050, L3890.6300, L101.9900, L501.6710, L3890.6100 ####[facility] [address] [place], [place], [phone]) Hematocrit (Bld) [Volume fraction] 43.4 % Normal 37-47 [facility] Comment on above: Order Comment: SHARE SPEC. IF POSSIBLE. PT TO RETURN FOR UTO TESTS Performed By: #### L 100.0100, L505.7010, L3890.6200, L500.4050, L3890.6300, L101.9900, L501.6710, L3890.6100 ####[facility] [address] [place], [place], [phone]) Hemoglobin (Bld) [Mass/Vol] 13.3 g/dL Normal 12.0-15.0 [facility] Comment on above: Order Comment: SHARE SPEC. IF POSSIBLE. PT TO RETURN FOR UTO TESTS Performed By: #### L 100.0100, L505.7010, L3890.6200, L500.4050, L3890.6300, L101.9900, L501.6710, L3890.6100 ####[facility] [address] [place], [place], [phone] IG% 3.000 High 0.0-0.9 [facility] Comment on above: Order Comment: SHARE SPEC. IF POSSIBLE. PT TO RETURN FOR UTO TESTS Result Comment: IG% - Immature Granulocytes (promyelocytes, myelocytes andmetamyelocytes) > 1% indicates that a LEFT SHIFT is Present. Performed By: #### L 100.0100, L505.7010, L3890.6200, L500.4050, L3890.6300, L101.9900, L501.6710, L3890.6100 ####[facility] [address] [place], [address] Lymphocytes/100 WBC (Bld) 4.3 % Low 19-41 [facility] Comment on above: Order Comment: SHARE SPEC. IF POSSIBLE. PT TO RETURN FOR UTO TESTS Performed By: #### L 100.0100, L505.7010, L3890.6200, L500.4050, L3890.6300, L101.9900, L501.6710, L3890.6100 ####[facility] [address] [place], [address] MCH (RBC) [Entitic mass] 27.9 pg Normal 27.0-32.0 [facility] Comment on above: Order Comment: SHARE SPEC. IF POSSIBLE. PT TO RETURN FOR UTO TESTS Performed By: #### L 100.0100, L505.7010, L3890.6200, L500.4050, L3890.6300, L101.9900, L501.6710, L3890.6100 ####[facility] [address] [place], [address] MCHC (RBC) [Mass/Vol] 30.6 g/dL Low 32-36 [facility] Comment on above: Order Comment: SHARE SPEC. IF POSSIBLE. PT TO RETURN FOR UTO TESTS Performed By: #### L 100.0100, L505.7010, L3890.6200, L500.4050, L3890.6300, L101.9900, L501.6710, L3890.6100 ####[facility] [address] [place], [address] MCV (RBC) [Entitic vol] 91.0 fL Normal 81-99 [facility] Comment on above: Order Comment: SHARE SPEC. IF POSSIBLE. PT TO RETURN FOR UTO TESTS Performed By: #### L 100.0100, L505.7010, L3890.6200, L500.4050, L3890.6300, L101.9900, L501.6710, L3890.6100 ####[facility] [address] [place], [address] Monocytes/100 WBC (Bld) 2.7 % Normal 0-10 [facility] Comment on above: Order Comment: SHARE SPEC. IF POSSIBLE. PT TO RETURN FOR UTO TESTS Performed By: #### L 100.0100, L505.7010, L3890.6200, L500.4050, L3890.6300, L101.9900, L501.6710, L3890.6100 ####[facility] [address] [place], [address] Neutrophils/100 WBC (Bld) 89.9 % High 47-70 [facility] Comment on above: Order Comment: SHARE SPEC. IF POSSIBLE. PT TO RETURN FOR UTO TESTS Performed By: #### L 100.0100, L505.7010, L3890.6200, L500.4050, L3890.6300, L101.9900, L501.6710, L3890.6100 ####[facility] [address] [place], [address] Nucleated RBC (Bld) [#/Vol] 0 10*3/uL Normal 0-5 [facility] Comment on above: Order Comment: SHARE SPEC. IF POSSIBLE. PT TO RETURN FOR UTO TESTS Performed By: #### L 100.0100, L505.7010, L3890.6200, L500.4050, L3890.6300, L101.9900, L501.6710, L3890.6100 ####[facility] [address] [place], [address] Platelet mean volume (Bld) [Entitic vol] 9.3 fL Normal 6.2-12.0 [facility] Comment on above: Order Comment: SHARE SPEC. IF POSSIBLE. PT TO RETURN FOR UTO TESTS Performed By: #### L 100.0100, L505.7010, L3890.6200, L500.4050, L3890.6300, L101.9900, L501.6710, L3890.6100 ####[facility] [address] [place], [place], [phone]) Platelets (Bld) [#/Vol] 174 10*3/uL Normal 150-450 [facility] Comment on above: Order Comment: SHARE SPEC. IF POSSIBLE. PT TO RETURN FOR UTO TESTS Performed By: #### L 100.0100, L505.7010, L3890.6200, L500.4050, L3890.6300, L101.9900, L501.6710, L3890.6100 ####[facility] [address] [place], [place], [phone]) RBC (Bld) [#/Vol] 4.77 10*6/uL Normal 4.2-5.4 [facility] Comment on above: Order Comment: SHARE SPEC. IF POSSIBLE. PT TO RETURN FOR UTO TESTS Performed By: #### L 100.0100, L505.7010, L3890.6200, L500.4050, L3890.6300, L101.9900, L501.6710, L3890.6100 ####[facility] [address] [place], [place], [phone]) RDW SD 53.9 fl High 35.1-43.9 [facility] Comment on above: Order Comment: SHARE SPEC. IF POSSIBLE. PT TO RETURN FOR UTO TESTS Performed By: #### L 100.0100, L505.7010, L3890.6200, L500.4050, L3890.6300, L101.9900, L501.6710, L3890.6100 ####[facility] [address] [place], [place], [phone](582) WBC (Bld) [#/Vol] 16.0 10*3/uL High 4.4-11.0 [facility] Comment on above: Order Comment: SHARE SPEC. IF POSSIBLE. PT TO RETURN FOR UTO TESTS Performed By: #### L 100.0100, L505.7010, L3890.6200, L500.4050, L3890.6300, L101.9900, L501.6710, L3890.6100 ####[facility] [address] [place], [place], [phone] CRPon 02-23-2024 C-REACTIVE PROT 6.80 mg/L High 0.0-3.0 [facility] Comment on above: Order Comment: SHARE SPEC. IF POSSIBLE. PT TO RETURN FOR UTO TESTS Result Comment: C-Re active Protein (CRP) provides useful information for thediagnosis, therapy and monitoring of inflammatory processesand associated diseases. For the evaluation of Relative Riskfor Cardiovascular Disease, a High Sensitivity CRP (HSCRP)should be ordered. Performed By: #### L 100.0100, L505.7010, L3890.6200, L500.4050, L3890.6300, L101.9900, L501.6710, L3890.6100 ####[facility] [address] [place], [place], [phone] Comprehensive Metabolic Prof ilon 02-23-2024 Albumin [Mass/Vol] 3.3 g/dL Normal 3.2-5.0 [facility] Comment on above: Order Comment: SHARE SPEC. IF POSSIBLE. PT TO RETURN FOR UTO TESTS Performed By: #### L 100.0100, L505.7010, L3890.6200, L500.4050, L3890.6300, L101.9900, L501.6710, L3890.6100 ####[facility] [address] [place], [place], [phone] Albumin/Globulin [Mass ratio] 1.2 {ratio} Normal 0.9-2.4 [facility] Comment on above: Order Comment: SHARE SPEC. IF POSSIBLE. PT TO RETURN FOR UTO TESTS Performed By: #### L 100.0100, L505.7010, L3890.6200, L500.4050, L3890.6300, L101.9900, L501.6710, L3890.6100 ####[facility] [address] [place], [address] ALK P 58 U/L Normal 45-117 [facility] Comment on above: Order Comment: SHARE SPEC. IF POSSIBLE. PT TO RETURN FOR UTO TESTS Performed By: #### L 100.0100, L505.7010, L3890.6200, L500.4050, L3890.6300, L101.9900, L501.6710, L3890.6100 ####[facility] [address] [place], [place], [phone] ALT [Catalytic activity/Vol] 40 U/L Normal 13-56 [facility] Comment on above: Order Comment: SHARE SPEC. IF POSSIBLE. PT TO RETURN FOR UTO TESTS Performed By: #### L 100.0100, L505.7010, L3890.6200, L500.4050, L3890.6300, L101.9900, L501.6710, L3890.6100 ####[facility] [address] [place], [place], [phone] AST [Catalytic activity/Vol] 18 U/L Normal 15-37 [facility] Comment on above: Order Comment: SHARE SPEC. IF POSSIBLE. PT TO RETURN FOR UTO TESTS Performed By: #### L 100.0100, L505.7010, L3890.6200, L500.4050, L3890.6300, L101.9900, L501.6710, L3890.6100 ####[facility] [address] [place], [place], [phone] Bilirubin [Mass/Vol] 0.50 mg/dL Normal 0.20-1.00 [facility] Comment on above: Order Comment: SHARE SPEC. IF POSSIBLE. PT TO RETURN FOR UTO TESTS Result Comment: For patients on eltrombopag therapy, use of Dimension Tutor Key TBIL is not recommended. Performed By: #### L 100.0100, L505.7010, L3890.6200, L500.4050, L3890.6300, L101.9900, L501.6710, L3890.6100 ####[facility] [address] [place], [place], [phone](941) BUN/CRE 33.6 RATIO High 10-20 [facility] Comment on above: Order Comment: SHARE SPEC. IF POSSIBLE. PT TO RETURN FOR UTO TESTS Performed By: #### L 100.0100, L505.7010, L3890.6200, L500.4050, L3890.6300, L101.9900, L501.6710, L3890.6100 ####[facility] [address] [place], [place], [phone] CA,Total 8.2 mg/dL Low 8.5-10.1 [facility] Comment on above: Order Comment: SHARE SPEC. IF POSSIBLE. PT TO RETURN FOR UTO TESTS Performed By: #### L 100.0100, L505.7010, L3890.6200, L500.4050, L3890.6300, L101.9900, L501.6710, L3890.6100 ####[facility] [address] [place], [place], [phone] Chloride [Moles/Vol] 103 mmol/L Normal 98-107 [facility] Comment on above: Order Comment: SHARE SPEC. IF POSSIBLE. PT TO RETURN FOR UTO TESTS Performed By: #### L 100.0100, L505.7010, L3890.6200, L500.4050, L3890.6300, L101.9900, L501.6710, L3890.6100 ####[facility] [address] [place] [phone] CO2 [Moles/Vol] 24.0 mmol/L Normal 21.0-32.0 [facility] Comment on above: Order Comment: SHARE SPEC. IF POSSIBLE. PT TO RETURN FOR UTO TESTS Performed By: #### L 100.0100, L505.7010, L3890.6200, L500.4050, L3890.6300, L101.9900, L501.6710, L3890.6100 ####[facility] [address] [place], [place], [phone] Creatinine [Mass/Vol] 1.22 mg/dL High 0.55-1.02 [facility] Comment on above: Order Comment: SHARE SPEC. IF POSSIBLE. PT TO RETURN FOR UTO TESTS Result Comment: The validity of the calculated GFR GFRAA in patients over70 years has not been determined. Clinical correlation isessential. Performed By: #### L 100.0100, L505.7010, L3890.6200, L500.4050, L3890.6300, L101.9900, L501.6710, L3890.6100 ####[facility] [address] [facility] [address] [place], [place], [phone] EST GFR - AA 56 mL/min Low >60 [facility] Comment on above: Order Comment: SHARE SPEC. IF POSSIBLE. PT TO RETURN FOR UTO TESTS Result Comment: Afri can Palauan GFR Calc Performed By: #### L 100.0100, L505.7010, L3890.6200, L500.4050, L3890.6300, L101.9900, L501.6710, L3890.6100 ####[facility] [address] [facility] [address] [place], [place], [phone] GAP 13 Normal 5-15 [facility] Comment on above: Order Comment: SHARE SPEC. IF POSSIBLE. PT TO RETURN FOR UTO TESTS Performed By: #### L 100.0100, L505.7010, L3890.6200, L500.4050, L3890.6300, L101.9900, L501.6710, L3890.6100 ####[facility] [address] [place], [place], [phone](962) GFR/1.73 sq M.predicted among non-blacks MDRD (S/P/Bld) [Vol rate/Area] 46 mL/min/{1.73_m2} Low >60 [facility] Comment on above: Order Comment: SHARE SPEC. IF POSSIBLE. PT TO RETURN FOR UTO TESTS Result Comment: Non- GFR Calc Performed By: #### L 100.0100, L505.7010, L3890.6200, L500.4050, L3890.6300, L101.9900, L501.6710, L3890.6100 ####[facility] [address] [place], [place], [phone]) Globulin (S) [Mass/Vol] 2.8 g/dL Normal 2.2-4.2 [facility] Comment on above: Order Comment: SHARE SPEC. IF POSSIBLE. PT TO RETURN FOR UTO TESTS Performed By: #### L 100.0100, L505.7010, L3890.6200, L500.4050, L3890.6300, L101.9900, L501.6710, L3890.6100 ####[facility] [address] [place], [place], [phone](930) Glucose [Mass/Vol] 113 mg/dL High 74-106 [facility] Comment on above: Order Comment: SHARE SPEC. IF POSSIBLE. PT TO RETURN FOR UTO TESTS Result Comment: Fast ing Glucose result from 100 to 125 mg/dLsuggests IMPAIRED HOMEOSTASIS per A.D.A. criteria. Performed By: #### L 100.0100, L505.7010, L3890.6200, L500.4050, L3890.6300, L101.9900, L501.6710, L3890.6100 ####[facility] [address] [place], [address] Potassium [Moles/Vol] 4.1 mmol/L Normal 3.5-5.1 [facility] Comment on above: Order Comment: SHARE SPEC. IF POSSIBLE. PT TO RETURN FOR UTO TESTS Performed By: #### L 100.0100, L505.7010, L3890.6200, L500.4050, L3890.6300, L101.9900, L501.6710, L3890.6100 ####[facility] [address] [place], [address] Sodium [Moles/Vol] 140 mmol/L Normal 136-145 [facility] Comment on above: Order Comment: SHARE SPEC. IF POSSIBLE. PT TO RETURN FOR UTO TESTS Performed By: #### L 100.0100, L505.7010, L3890.6200, L500.4050, L3890.6300, L101.9900, L501.6710, L3890.6100 ####[facility] [address] [place], [address] T PROT 6.1 g/dL Low 6.4-8.2 [facility] Comment on above: Order Comment: SHARE SPEC. IF POSSIBLE. PT TO RETURN FOR UTO TESTS Performed By: #### L 100.0100, L505.7010, L3890.6200, L500.4050, L3890.6300, L101.9900, L501.6710, L3890.6100 ####[facility] [address] [place], [address] Urea nitrogen [Mass/Vol] 41 mg/dL High 7-18 [facility] Comment on above: Order Comment: SHARE SPEC. IF POSSIBLE. PT TO RETURN FOR UTO TESTS Performed By: #### L 100.0100, L505.7010, L3890.6200, L500.4050, L3890.6300, L101.9900, L501.6710, L3890.6100 ####[facility] [address] [place], [place], [phone] Erythrocyte Sed Rateon 02-22 SED RATE 4 mm/hr Normal 0-30 [facility] Comment on above: Order Comment: SHARE SPEC. IF POSSIBLE. PT TO RETURN FOR UTO TESTS Performed By: #### L 100.0100, L505.7010, L3890.6200, L500.4050, L3890.6300, L101.9900, L501.6710, L3890.6100 ####[facility] [address] [place], [place], [phone] Hepatitis B Surface Antibody on 02-23-2024 HEP B Surf Ab Reactive Normal [facility] Comment on above: Order Comment: SHARE SPEC. IF POSSIBLE. PT TO RETURN FOR UTO TESTS Result Comment: Non Reactive: Inconsistent with immunity less than <10 mIU/mL Reactive: Consistent with immunity greater than or equal to 10 mIU/mL Performed By: #### L 100.0100, L505.7010, L3890.6200, L500.4050, L3890.6300, L101.9900, L501.6710, L3890.6100 ####[facility] [address] [place], [place], [phone] Hepatitis B Surface Antigeno n 02-23-2024 HEP B Surf Ag Non-Reactive Normal Nonreactive [facility] Comment on above: Order Comment: SHARE SPEC. IF POSSIBLE. PT TO RETURN FOR UTO TESTS Performed By: #### L 100.0100, L505.7010, L3890.6200, L500.4050, L3890.6300, L101.9900, L501.6710, L3890.6100 ####[facility] [address] [place], [place], [phone] Hepatitis C Antibodyon 02-22 Hepatitis C AB Non-Reactive Normal Nonreactive [facility] Comment on above: Order Comment: SHARE SPEC. IF POSSIBLE. PT TO RETURN FOR UTO TESTS Result Comment: Non Reactive: < 0.8 Equivocal: >/= 0.8 to < 1.0 Reactive: >/= 1.0The CDC requires that a reactive/equivocal HCV antibodyresult be sent out for confirmation. HCV Quant by PCRtesting. Performed By: #### L 100.0100, L505.7010, L3890.6200, L500.4050, L3890.6300, L101.9900, L501.6710, L3890.6100 ####[facility] [address] [place], [address] Rheumatoid Factoron 02-23-20 24 RHEUMATOID FAC < 10.0 Normal <15 [facility] Comment on above: Order Comment: SHARE SPEC. IF POSSIBLE. PT TO RETURN FOR UTO TESTS Performed By: #### L 100.0100, L505.7010, L3890.6200, L500.4050, L3890.6300, L101.9900, L501.6710, L3890.6100 ####[facility] [address] [place], [place], [phone] CBC W/Diff, Automatedon 06- 0-2023 Absolute Neut Normal 2.0-7.7 [facility] Comment on above: Result Comment: UTO X 2 PHLEBS 2 TRIES EACH. PT WILL RETURN TOMORROW Performed By: #### L 100.0100, L500.4050, L101.9900, L3400.8000 ####[facility] [address] [place], [address] HCT Normal 37-47 [facility] Comment on above: Result Comment: UTO X 2 PHLEBS 2 TRIES EACH. PT WILL RETURN TOMORROW Performed By: #### L 100.0100, L500.4050, L101.9900, L3400.8000 ####[facility] [address] [place], [place], [phone] HGB Normal 12.0-15.0 [facility] Comment on above: Result Comment: UTO X 2 PHLEBS 2 TRIES EACH. PT WILL RETURN TOMORROW Performed By: #### L 100.0100, L500.4050, L101.9900, L3400.8000 ####[facility] [address] [place], [address] MCH Normal 27.0-32.0 [facility] Comment on above: Result Comment: UTO X 2 PHLEBS 2 TRIES EACH. PT WILL RETURN TOMORROW Performed By: #### L 100.0100, L500.4050, L101.9900, L3400.8000 ####[facility] [address] [place], [address] MCHC Normal 32-36 [facility] Comment on above: Result Comment: UTO X 2 PHLEBS 2 TRIES EACH. PT WILL RETURN TOMORROW Performed By: #### L 100.0100, L500.4050, L101.9900, L3400.8000 ####[facility] [address] [place], [address] MCV Normal 81-99 [facility] Comment on above: Result Comment: UTO X 2 PHLEBS 2 TRIES EACH. PT WILL RETURN TOMORROW Performed By: #### L 100.0100, L500.4050, L101.9900, L3400.8000 ####[facility] [address] [place], [address] NEUT% Normal 47-70 [facility] Comment on above: Result Comment: UTO X 2 PHLEBS 2 TRIES EACH. PT WILL RETURN TOMORROW Performed By: #### L 100.0100, L500.4050, L101.9900, L3400.8000 ####[facility] [address] [place], [address] PLT Normal 150-450 [facility] Comment on above: Result Comment: UTO X 2 PHLEBS 2 TRIES EACH. PT WILL RETURN TOMORROW Performed By: #### L 100.0100, L500.4050, L101.9900, L3400.8000 ####[facility] [address] [place], [address] RBC Normal 4.2-5.4 [facility] Comment on above: Result Comment: UTO X 2 PHLEBS 2 TRIES EACH. PT WILL RETURN TOMORROW Performed By: #### L 100.0100, L500.4050, L101.9900, L3400.8000 ####[facility] [address] [place], [address] RDW CV Normal 11.6-14.6 [facility] Comment on above: Result Comment: UTO X 2 PHLEBS 2 TRIES EACH. PT WILL RETURN TOMORROW Performed By: #### L 100.0100, L500.4050, L101.9900, L3400.8000 ####[facility] [address] [place], [address] RDW SD Normal 35.1-43.9 [facility] Comment on above: Result Comment: UTO X 2 PHLEBS 2 TRIES EACH. PT WILL RETURN TOMORROW Performed By: #### L 100.0100, L500.4050, L101.9900, L3400.8000 ####[facility] [address] [place], [address] WBC Normal 4.4-11.0 [facility] Comment on above: Result Comment: UTO X 2 PHLEBS 2 TRIES EACH. PT WILL RETURN TOMORROW Performed By: #### L 100.0100, L500.4050, L101.9900, L3400.8000 ####[facility] [address] [place], [address] Comprehensive Metabolic Prof ilon 02-22-2024 ALB Normal 3.2-5.0 [facility] Comment on above: Result Comment: UTO X 2 PHLEBS 2 TRIES EACH. PT WILL RETURN TOMORROW Performed By: #### L 100.0100, L500.4050, L101.9900, [id number] ####[facility] [address] [place], [address] ALK P Normal 45-117 [facility] Comment on above: Result Comment: UTO X 2 PHLEBS 2 TRIES EACH. PT WILL RETURN TOMORROW Performed By: #### L 100.0100, L500.4050, L101.9900, L3400.8000 ####[facility] [address] [place], [address] ALT Normal 13-56 [facility] Comment on above: Result Comment: UTO X 2 PHLEBS 2 TRIES EACH. PT WILL RETURN TOMORROW Performed By: #### L 100.0100, L500.4050, L101.9900, L3400.8000 ####[facility] [address] [place], [address] AST Normal 15-37 [facility] Comment on above: Result Comment: UTO X 2 PHLEBS 2 TRIES EACH. PT WILL RETURN TOMORROW Performed By: #### L 100.0100, L500.4050, L101.9900, L3400.8000 ####[facility] [address] [place], [address] BUN Normal 7-18 [facility] Comment on above: Result Comment: UTO X 2 PHLEBS 2 TRIES EACH. PT WILL RETURN TOMORROW Performed By: #### L 100.0100, L500.4050, L101.9900, L3400.8000 ####[facility] [address] [place], [address] BUN/CRE Normal 10-20 [facility] Comment on above: Result Comment: UTO X 2 PHLEBS 2 TRIES EACH. PT WILL RETURN TOMORROW Performed By: #### L 100.0100, L500.4050, L101.9900, L3400.8000 ####[facility] [address] [place], [address] CA,Total Normal 8.5-10.1 [facility] Comment on above: Result Comment: UTO X 2 PHLEBS 2 TRIES EACH. PT WILL RETURN TOMORROW Performed By: #### L 100.0100, L500.4050, L101.9900, L3400.8000 ####[facility] [address] [place], [address] CL Normal 98-107 [facility] Comment on above: Result Comment: UTO X 2 PHLEBS 2 TRIES EACH. PT WILL RETURN TOMORROW Performed By: #### L 100.0100, L500.4050, L101.9900, L3400.8000 ####[facility] [address] [place], [address] CO2 Normal 21.0-32.0 [facility] Comment on above: Result Comment: UTO X 2 PHLEBS 2 TRIES EACH. PT WILL RETURN TOMORROW Performed By: #### L 100.0100, L500.4050, L101.9900, L3400.8000 ####[facility] [address] [place], [address] CREAT,SERUM Normal 0.55-1.02 [facility] Comment on above: Result Comment: UTO X 2 PHLEBS 2 TRIES EACH. PT WILL RETURN TOMORROW Performed By: #### L 100.0100, L500.4050, L101.9900, L3400.8000 ####[facility] [address] [place], [address] EST GFR Normal >60 [facility] Comment on above: Result Comment: UTO X 2 PHLEBS 2 TRIES EACH. PT WILL RETURN TOMORROW Performed By: #### L 100.0100, L500.4050, L101.9900, L3400.8000 ####[facility] [address] [place], [address] EST GFR - AA Normal >60 [facility] Comment on above: Result Comment: UTO X 2 PHLEBS 2 TRIES EACH. PT WILL RETURN TOMORROW Performed By: #### L 100.0100, L500.4050, L101.9900, L3400.8000 ####[facility] [address] [place], [address] GAP Normal 5-15 [facility] Comment on above: Result Comment: UTO X 2 PHLEBS 2 TRIES EACH. PT WILL RETURN TOMORROW Performed By: #### L 100.0100, L500.4050, L101.9900, L3400.8000 ####[facility] [address] [place], [address] GLU Normal 74-106 [facility] Comment on above: Result Comment: UTO X 2 PHLEBS 2 TRIES EACH. PT WILL RETURN TOMORROW Performed By: #### L 100.0100, L500.4050, L101.9900, L3400.8000 ####[facility] [address] [place], [address] Potassium Normal 3.5-5.1 [facility] Comment on above: Result Comment: UTO X 2 PHLEBS 2 TRIES EACH. PT WILL RETURN TOMORROW Performed By: #### L 100.0100, L500.4050, L101.9900, L3400.8000 ####[facility] [address] [place], [address] T BILI Normal 0.20-1.00 [facility] Comment on above: Result Comment: UTO X 2 PHLEBS 2 TRIES EACH. PT WILL RETURN TOMORROW Performed By: #### L 100.0100, L500.4050, L101.9900, L3400.8000 ####[facility] [address] [place], [address] T PROT Normal 6.4-8.2 [facility] Comment on above: Result Comment: UTO X 2 PHLEBS 2 TRIES EACH. PT WILL RETURN TOMORROW Performed By: #### L 100.0100, L500.4050, L101.9900, L3400.8000 ####[facility] [address] [place], [address] Comprehensive Metabolic Profil Normal 136-145 [facility] Comment on above: Result Comment: UTO X 2 PHLEBS 2 TRIES EACH. PT WILL RETURN TOMORROW Performed By: #### L 100.0100, L500.4050, L101.9900, L3400.8000 ####[facility] [address] [place], [address] Erythrocyte Sed Rateon 02-21 SED RATE Normal 0-30 [facility] Comment on above: Result Comment: UTO X 2 PHLEBS 2 TRIES EACH. PT WILL RETURN TOMORROW Performed By: #### L 100.0100, L500.4050, L101.9900, L3400.8000 ####[facility] [address] [place], [address] Quantiferon TB-Gold+on 02-21 QFT MITOGEN ROSCOE Normal [facility] Comment on above: Result Comment: UTO X 2 PHLEBS 2 TRIES EACH. PT WILL RETURN TOMORROW Performed By: #### L 100.0100, L500.4050, L101.9900, L3400.8000 ####[facility] [address] [place], [address] QFT NIL VALUE Normal [facility] Comment on above: Result Comment: UTO X 2 PHLEBS 2 TRIES EACH. PT WILL RETURN TOMORROW Performed By: #### L 100.0100, L500.4050, L101.9900, L3400.8000 ####[facility] [address] [place], [address] QFT TB GOLD+ Normal [facility] Comment on above: Result Comment: UTO X 2 PHLEBS 2 TRIES EACH. PT WILL RETURN TOMORROW Performed By: #### L 100.0100, L500.4050, L101.9900, L3400.8000 ####[facility] [address] [place], [address] QFT TB POS CRIT Normal [facility] Comment on above: Result Comment: UTO X 2 PHLEBS 2 TRIES EACH. PT WILL RETURN TOMORROW Performed By: #### L 100.0100, L500.4050, L101.9900, L3400.8000 ####[facility] [address] [place], [address] QFT TB1+ AG ROSCOE Normal [facility] Comment on above: Result Comment: UTO X 2 PHLEBS 2 TRIES EACH. PT WILL RETURN TOMORROW Performed By: #### L 100.0100, L500.4050, L101.9900, L3400.8000 ####[facility] [address] [place], [address] QFT TB2+ AG ROSCOE Normal [facility] Comment on above: Result Comment: UTO X 2 PHLEBS 2 TRIES EACH. PT WILL RETURN TOMORROW Performed By: #### L 100.0100, L500.4050, L101.9900, L3400.8000 ####[facility] [address] [place], [address] XR Chest PA and Lateralon IMPRESSION: No acute radiographic abnormality. Loss Prevention Analyst: [facility] Transcribe Date/Time: 2023 3:53P Dictated by : RAMONA MILLS MD This examination was interpreted and the report reviewed and electronically signed by: RAMONA MILLS MD on 2023 3:54PM [facility] DIVISION OF RADIOLOGY * * *Final Report* * * DATE OF EXAM: 2023 3:24PM WOX 5291 - XR CHEST 2V FRONTAL/LAT / PROCEDURE REASON: SOB (shortness of breath) * * * * Physician Interpretation * * * * EXAMINATION: CHEST RADIOGRAPH (2 VIEW FRONTAL & LATERAL) CLINICAL HISTORY: SOB (shortness of breath) MQ: XC2_6 EXAM DATE/TIME: 2023 3:24 PM COMPARISON: No relevant prior studies available. RESULT: Lines, tubes, and devices: None. Lungs and pleura: No consolidation. No lung mass. No pleural effusion. No pneumothorax. Cardiomediastinal silhouette: Normal cardiomediastinal silhouette. Bones and soft tissues: The spine shows osteophyte formation. DIVISION OF RADIOLOGY Provider, [facility] - 2023 * * *Final Report* * * DATE OF EXAM: 2023 3:24PM WOX 5291 - XR CHEST 2V FRONTAL/LAT / PROCEDURE REASON: SOB (shortness of breath) * * * * Physician Interpretation * * * * EXAMINATION: CHEST RADIOGRAPH (2 VIEW FRONTAL & LATERAL) CLINICAL HISTORY: SOB (shortness of breath) MQ: XC2_6 EXAM DATE/TIME: 2023 3:24 PM COMPARISON: No relevant prior studies available. RESULT: Lines, tubes, and devices: None. Lungs and pleura: No consolidation. No lung mass. No pleural effusion. No pneumothorax. Cardiomediastinal silhouette: Normal cardiomediastinal silhouette. Bones and soft tissues: The spine shows osteophyte formation. IMPRESSION IMPRESSION: No acute radiographic abnormality. Loss Prevention Analyst: [facility] Transcribe Date/Time: 2023 3:53P Dictated by : RAMONA MILLS MD This examination was interpreted and the report reviewed and electronically signed by: RAMONA MILLS MD on 2023 3:54PM [facility] Radiology Study observation (narrative) Lanie lentz [facility] XR Chest PA and LateralOrder ed By: Cc Provider on 2023 [facility] - Chemistry and C hemistry - challengeOrdered By: Carrie Waters on 10-25-2023 Natriuretic peptide B (Bld) [Mass/Vol] 22.0 pg/mL 0-100 [facility] Absolute lymphocyte countOrd ered By: Jorje Marques on 10-10-2023 Lymphocytes Auto (Unsp spec) [#/Vol] 1.95 10*3/uL 0.83-4.51 [facility] Automated lymphocyte count a s percentage of total leukocytesOrdered By: Jorje Marques on 10-10-2023 Lymphocytes/100 WBC Auto (Unsp spec) 19.8 % 19-41 [facility] Basophil percentageOrdered B y: Jorje Marques on 10-10-2023 Basophil percentage 0 SEEN /hpf 0-5 [facility] Basophils/100 WBC (Bld) 0.9 % 0-1 [facility] Bilirubin [Mass/Vol] 0.60 mg/dL 0.20-1.00 [facility] Comment on above: For patients on eltr ombopag therapy, use of Dimension Tutor Key TBIL is not recommended. Chloride [Moles/Vol] 102 mmol/L 98-107 [facility] Cholesterol [Mass/Vol] 126 mg/dL <200 [facility] Comment on above: <200 mg/dL Desirable 200-240 mg/dL Borderline >240 mg/dL High Risk Eosinophils/100 WBC (Bld) 1.3 % 0-5 [facility] Glucose [Mass/Vol] 208 mg/dL 74-106 [facility] Comment on above: Glucose result great er than or equal to 200 mg/dLsuggests DIABETES MELLITUS per A.D.A. criteria. Hemoglobin (Bld) [Mass/Vol] 13.7 g/dL 12.0-15.0 [facility] Monocytes/100 WBC (Bld) 8.2 % 0-10 [facility] Neutrophils (Bld) [#/Vol] 6.8 10*3/uL 2.0-7.7 [facility] Neutrophils/100 WBC (Bld) 69.3 % 47-70 [facility] Potassium [Moles/Vol] 3.8 mmol/L 3.5-5.1 [facility] Comment on above: Slight Hemolysis, Re sult may be falsely increased. Protein [Mass/Vol] 7.9 g/dL 6.4-8.2 [facility] Sodium [Moles/Vol] 134 mmol/L 136-145 [facility] Triglyceride [Mass/Vol] 148 mg/dL <199 [facility] Comment on above: The drugs N-Acetylcy steine and Metamizole may falsely depress this assay.Serum Triglycerides Reference Interval Normal <150 mg/dL Borderline high 150 - 199 mg/dL High 200 - 499 mg/dL Very High > or = 500 mg/dL WBC (Bld) [#/Vol] 9.9 10*3/uL 4.4-11.0 [facility] Bilirubin Test strip Ql (U)O rdered By: Jorje Marques on 10-10-2023 Bilirubin Ql (U) Negative Negative [facility] Culture, urineOrdered By: Trevin Marques on 10-10-2023 Bacteria identified Cx Nom (U) Positive [facility] Bacteria identified Cx Nom (U) Positive [facility] Determination of erythrocyte mean corpuscular volume (MCV)Ordered By: Jorje Marques on 10-10-2023 MCV (RBC) [Entitic vol] 86.4 fL 81-99 [facility] Erythrocyte distribution wid th ratioOrdered By: Jorje Marques on 10-10-2023 Erythrocyte distribution width (RBC) [Ratio] 14.9 % 11.6-14.6 [facility] Erythrocyte distribution wid th standard deviationOrdered By: Jorje Marques on 10-10-2023 Erythrocyte distribution width (RBC) [Entitic vol] 47.2 fL 35.1-43.9 [facility] Hematocrit Auto (Bld) [Volum e fraction]Ordered By: Jorje Marques on 10-10-2023 Hematocrit (Bld) [Volume fraction] 44.3 % 37-47 [facility] Immature granulocytes/100 WB C Auto (Bld)Ordered By: Jorje Marques on 10-10-2023 Immature granulocytes/100 WBC (Bld) 0.500 % 0.0-0.9 [facility] Comment on above: IG% - Immature Granu locytes (promyelocytes, myelocytes and metamyelocytes) > 1% indicates that a LEFT SHIFT is Present. Ketones Test strip Ql (U)Ord ered By: Jorje Marques on 10-10-2023 Ketones Ql (U) Negative Negative [facility] Laboratory - Chemistry and C hemistry - challengeOrdered By: Jorje Marques on 10-10-2023 Albumin/Globulin [Mass ratio] 1.0 {ratio} 0.9-2.4 [facility] ALP [Catalytic activity/Vol] 101 U/L 45-117 [facility] ALT [Catalytic activity/Vol] 29 U/L 13-56 [facility] Cholesterol in HDL [Mass/Vol] 46 mg/dL >40 [facility] Comment on above: The drugs N-Acetylcy steine and Metamizole may falsely depress this assay. Reference Range HDL <40 mg/dL Low HDL Cholesterol HDL >or= 60 mg/dL High HDL Cholesterol Cholesterol in LDL [Mass/Vol] 50 mg/dL 0-130 [facility] CO2 [Moles/Vol] 27.0 mmol/L 21.0-32.0 [facility] Globulin (S) [Mass/Vol] 4.0 g/dL 2.2-4.2 [facility] Urea nitrogen/Creatinine [Mass ratio] 17.4 mg/mg 10-20 [facility] Laboratory - Hematology and Cell countsOrdered By: Jorje Marques on 10-10-2023 MCH (RBC) [Entitic mass] 26.7 pg 27.0-32.0 [facility] MCHC (RBC) [Mass/Vol] 30.9 g/dL 32-36 [facility] Nucleated RBC/100 WBC (Bld) [Ratio] 0 % 0-5 [facility] Platelet mean volume (Bld) [Entitic vol] 9.5 fL 6.2-12.0 [facility] Platelets (Bld) [#/Vol] 295 10*3/uL 150-450 [facility] Laboratory - Hematology and Cell countson 10-10-2023 HbA1c (Bld) [Mass fraction] 7.4 % 4.2-6.3 [facility] Mucus LM Ql (Urine sed)Order ed By: Jorje Marques on 10-10-2023 Mucus Ql (Urine sed) 0 SEEN /hpf [facility] Nitrite Test strip Ql (U)Ord ered By: Jorje Marques on 10-10-2023 Nitrite Ql (U) Negative Negative [facility] No Panel InformationOrdered By: Jorje Marques on 10-10-2023 Estimated GFR (MDRD) Amer 57 mL/min >60 [facility] Comment on above: GFR Calc Estimated GFR (MDRD) Non-Af Amer 47 mL/min >60 [facility] Comment on above: Non- GFR Calc Urine Microalbumin/Creatinine Ratio 62.2 mg/g CRE <30 [facility] Urine RBC 0 SEEN /hpf 0-5 [facility] Vitamin D 25-Hydroxy 49.9 ng/mL [facility] Comment on above: Vitamin D 25(OH) Sta tus Range Deficiency <20 ng/mL (50nmol/L) Insufficiency 20 - 30 ng/mL (50 - 75 nmol/L) Sufficiency 30 - 100 ng/mL (75 - 250 nmol/L) Toxicity >100 ng/mL (>250 nmol/L) VLDL Cholesterol 30 mg/dL 5-40 [facility] Protein Test strip Ql (U)Ord ered By: Jorje Marques on 10-10-2023 Protein Ql (U) 15 mg/dl Negative [facility] RBC Auto (Bld) [#/Vol]Ordere d By: Jorje Marques on 10-10-2023 RBC (Bld) [#/Vol] 5.13 10*6/uL 4.2-5.4 [facility] Serum or plasma calcium christi urement (mass/volume)Ordered By: Jorje Marques on 10-10-2023 Calcium [Mass/Vol] 9.7 mg/dL 8.5-10.1 [facility] Serum or plasma creatinine m easurement (mass/volume)Ordered By: Jorje Marques on 10-10-2023 Creatinine [Mass/Vol] 1.21 mg/dL 0.55-1.02 [facility] Comment on above: The validity of the calculated GFR & GFRAA in patients over 70 years has not been determined. Clinical correlation is essential. Serum or plasma thyroid stim ulating hormone (TSH) measurement (units/volume)Ordered By: Jorje Marques on 10-10-2023 TSH Qn 0.75 uIU/mL 0.358-3.74 [facility] Serum or plasma urea nitroge n measurement (mass/volume)Ordered By: Jorje Marques on 10-10-2023 Urea nitrogen [Mass/Vol] 21 mg/dL 7-18 [facility] Squamous epithelial cells de tection in urine sediment by light microscopyOrdered By: Jorje Marques on 10-10-2023 Epithelial cells.squamous LM Ql (Urine sed) 0-5 SEEN /hpf 5-10 [facility] TSH (EXTERNAL)on 10-10-2023 TSH 0.75 IU/ml 0.2 - 5.6 IU/ml [facility] Thin prep Papanicolaou smear with manual screeningOrdered By: Jorje Marques on 10-10-2023 Thin prep Papanicolaou smear with manual screening 3.9 g/dL 3.2-5.0 [facility] Thin prep Papanicolaou smear with manual screening 22 U/L 15-37 [facility] Comment on above: Slight Hemolysis, Re sult may be falsely increased. Thin prep Papanicolaou smear with manual screening 5 5-15 [facility] Thin prep Papanicolaou smear with manual screening 31.6 mg/L NO RANGE EST. [facility] Thin prep Papanicolaou smear with manual screening 1.57 ng/dL 0.76-1.46 [facility] Urine blood detectionOrdered By: Jorje Marques on 10-10-2023 RBC Ql (U) 10 /ul Negative [facility] Urine clarityOrdered By: Bud Marques on 10-10-2023 Clarity (U) Clear Clear [facility] Urine color determinationOrd ered By: Jorje Marques on 10-10-2023 Color (U) Yellow Yellow [facility] Urine creatinine measurement (mass/volume)Ordered By: Jorje Marques on 10-10-2023 Creatinine (U) [Mass/Vol] 50.80 mg/dL NO RANGE EST. [facility] Urine glucose detectionOrder ed By: Jorje Marques on 10-10-2023 Glucose Ql (U) 1000 mg/dl Normal [facility] Urine leukocyte esterase det ection by dipstickOrdered By: Jorje Marques on 10-10-2023 Leukocyte esterase Test strip Ql (U) Negative Negative [facility] Urine pHOrdered By: Jorje hamlin on 10-10-2023 pH (U) 6.0 [pH] 5.0 - 8.0 [facility] Urine sediment bacteria coun t by microscopy (number/high power field)Ordered By: Jorje Marques on 10-10-2023 Bacteria LM.HPF (Urine sed) [#/Area] 0 /[HPF] None Seen [facility] Urine specific gravity measu rementOrdered By: Jorje Marques on 10-10-2023 Specific gravity (U) [Rel density] 1.010 1.002-1.030 [facility] Urine urobilinogen measureme ntOrdered By: Jorje Marques on 10-10-2023 Urobilinogen Ql (U) Normal mg/dl Normal [facility] Laboratory - Hematology and Cell countson 06-08-2023 HbA1c (Bld) [Mass fraction] 8.8 % 4.2-6.3 [facility] CNDSon 02-27-2023 CNDS HNO ID: [id number] Author: Rianna Forbes PA-C Service: Orthopaedic Surgery Author Type: Physician Contract Lead Type: Discharge Summary Filed: 03/09/2023 8:39 PM Note Text: Attestation signed by Andrea Sandoval DO at 03/21/2023 9:17 AM I agree with above. DISCHARGE SUMMARY PATIENT NAME: Derrell German Code Status: Prior Highest Readmission Risk Score: 16 The 30 day readmissions risk score is derived from an internally validated risk model which evaluates patient level characteristics, utilization history, medication orders and lab results up until the day of discharge. Patients with a score of 40 or above are considered highest risk for readmission. Specific patient level drivers will be listed at the bottom of the summary. Admission Information Admission Information ADMIT DATE: 02/23/2023 DISCHARGE DATE: 02/26/2023 MY DOCTORS AND MEDICAL TEAM: My Main Hospital Doctor: Andrea Sandoval DO Primary Care Provider: Willard Henriquez MD My Medical Team Members: Treatment Team: Attending Provider: Andrea Sandoval DO Consulting: Mr Devries Admits/Consults MY CONDITION AT DISCHARGE: Stable REASON I WAS IN THE HOSPITAL: to undergo surgery SUMMARY OF WHAT HAPPENED WHILE I WAS IN THE HOSPITAL: Patient was admitted to the hospital to undergo L5-S1 TLIF, L4-S1 PLF w/ instrumentation and decompression, BMA by Dr. Sandoval on 02/23/2023. Patient was seen by Internal Medicine to manage her diabetes. She worked with PT and OT to increase activity with LSO brace on when out of bed. It took several days for the the surgical drain output to decrease so it could be removed. OTHER PROBLEMS/DIAGNOSIS: Principal Problem: Spinal stenosis, lumbar region, with neurogenic claudication Active Problems: Obesity, Class III, BMI >= 40 Spondylolisthesis of lumbar region Other intervertebral disc displacement, lumbosacral region Other intervertebral disc degeneration, lumbar region Spinal stenosis, lumbar region with neurogenic claudication Resolved Problems: * No resolved hospital problems. * OPERATIONS PERFORMED WHILE IN THE HOSPITAL: L5-S1 TLIF, L4-S1 PLF w/ instrumentation and decompression, BMA by Dr. Sandoval on 02/23/2023 IMPORTANT TEST/PROCEDURES: See above TEST RESULTS NOT AVAILABLE AT THIS TIME: No pending results Discharge Disposition Discharge Disposition: Home With Self Care Activity When You Leave the Hospital Other: No lifting > 15 lbs. Avoid bending and twisting. Wear LSO brace when out of bed. May walk as much as tolerate. No driving. Diet Instructions Resume your pre-hospital diet For Pain When You Leave the Hospital If you become constipated, you may use any [id number]-vhb-[id number] treatment such as Milk of Magnesia, Sennakot, Prune Juice, Suppositories, etc. in addition to the stool softener/fiber supplement Other: May resume blood thinners 7 days after surgery. Use acetaminophen (Tylenol) as recommended on the bottle You should use an zaau-jnd-fcbrcrc stool softener (Docusate sodium) and/or a fiber supplement (Metamucil, Fiber Con) every day while taking prescribed pain medication Wound/Surgical Site Care Other: May remove outer bandage and shower after 7 days. Recover the incision with a new clean bandage. Continue to keep covered and change daily until 2 weeks post op. Do not soak the incision. Follow Up Appointments Follow-Up Appointment With: Dr. Sandoval When: In 3 weeks Patient/Parents to call for appointment?: Scheduled Additional Provider to Provider Information: No notes on file Treatment Team: Attending Provider: Andrea Sandoval DO Consulting: Rui Kimbrough DO Transitions of Care Critical Issues: NEW BASELINE FOR PATIENT: improved LABS AND PROCEDURES PENDING AT DISCHARGE: No pending results. FOLLOW-UP APPOINTMENTS ALREADY SCHEDULED WITH A [facility] PROVIDER: Future Appointments Date Time Provider Department Center 04/24/2023 1:40 PM Padmini Anguiano APRN.ENROLLMENT REPRESENTATIVE [facility] MELISSA ALLERGIES Allergen Reactions Amlodipine Swelling Diphth,Pertus(Acell* Hives Diflucan [Fluconazo* Hives Actos [Pioglitazone* Other: See Comments Edema BLE AND OLGA HANDS Bactrim [Sulfametho* Hives HIVES Betadine [Povidone-* Anaphylaxis SEVERE ALLERGY TO IODINE AND BETADINE Fish Anaphylaxis ALL FISH Iodine Anaphylaxis IV contrast Lipitor [Atorvastat* Rash, Itching Metformin Diarrhea, GI Upset [place] Anaphylaxis Penicillins Unknown NOT SURE A CHILD Sulfa (Sulfonamide * Swelling SWELLING AND HIVES DISCHARGE MEDICATION: Medication List START taking these medications bisacodyl EC 5 mg EC tablet Commonly known as: DULCOLAX Take 2 tablets by mouth once daily as needed for constipation. cyclobenzaprine 10 mg tablet Commonly k (more content not included)... [facility] THERAPY NTon 02-27-2023 THERAPY NT HNO ID: [id number] Author: RANI Benz Service: Occupational Therapy Author Type: [facility] Counselor Type: Therapy (PT/OT/Speech/Resp) Filed: 02/27/2023 12:33 PM Note Text: Attestation signed by MISTY Luna at 02/27/2023 12:35 PM I reviewed and agree with the documentation corresponding to this therapy visit. SIGNATURE: MISTY Shha DATE: February 27, 2023 TIME: 12:35 PM Occupational Therapy Treatment SERVICE DATE: 02/27/2023 SERVICE TIME: 1135 to 1215 ROOM: [place] [address] Recommended Discharge Disposition: Home Recommended Discharge Disposition Comments: pt presents with decreased endurance, dynamic balance, functional independence and safety. pt feeling drowsy this AM, would benefit from cont OT services Anticipated Discharge Needs: Supervision at Home Supervision at Home due to: Decreased safety awareness OT 6 Clicks Score: 20 Precautions/Activity Restrictions: Spine, Lines/Tubes/Drains, Fall Risk, Brace Precaution/Activity Restriction Comments: large FABRICE drain; LSO Current Hospital Course: Elective surgery Reason for Hospital Admission: s/p TLIF L5-S1, PLIF L4-S1, decompression L4-S1, BMA by Dr. Sandoval Relevant Past Medical History: HTN, DM, GERD Response to Therapy Interventions: Good Participation in Activities, Improved Tolerance for Activity, Notable Progression with Functional Activities/Skills, Requires Additional Time to Complete Activities Assessment Comments: Tolerated fair w/ small improvements noted today, pt does still require clos ehand son assist for transfers and LE self care and is limited by standing activity tolerance. Pt is progressing Occupational Therapy Problem List: Pain, Safety Deficits, Impaired Self Care, Decreased Activity Tolerance Cognition/Communication Deficits Responsiveness: Awake, Alert Follows Commands: 2-step Commands, 3-step Commands Treatment Interventions: Education, Self Care/Home Management Plan for Next Visit: Dressing Training, IADLs/Home Management, Sitting Tolerance, Sitting Balance, Shower/Tub Transfer Training, Standing Tolerance, Standing Balance Home Environment Patient Lives With: Spouse, Other: See Comment Comments: recently diagnosed with Cancer Assistance Available: 24-Hour Entry To Home: Stairs, With Rail Number Of Stairs Into Home: 3 Number Of Stairs To Bed/Bath: 0 Tub/Shower Type: tub/shower in main bath; has half bath she will used raised Laundry: FFSU - stackable in kitchen Equipment Owned: Grab Bars- Shower, Hand Held Shower, Commode- Raised, Cane, Rollator, Physician Practice Administrator, Long Handled Shoe Horn Prior Functional Level: Within Functional Limits Assistance Required With: Ambulation Prior Functional Level Comments: pt reports use of rollator at all times, notes unable to stand for long times - takes seated rest breaks on rollator. Notes poor endurance for 2 years after a fall on her buttocks, denies recent falls. Baseline Cognition: Oriented to self, Oriented to place, Oriented to time, Oriented to situation Current and/or Former Occupation: Retired - [employer] Highest Level of Education: College/Professional Trade Occupational Factors Life Roles: Family Member, Retired, Parent, Spouse/Significant Other Identified Strengths: Good Support System Identified Barriers: Difficulty with ADLs/IADLs Patient Report: Pt was pleasant and agreeable to therapy Im doing a little better CURRENT FUNCTIONAL STATUS: Most recent performance Current Activities of Daily Living Assist Level Additional Information Feeding Set Up Grooming Minimal Assistance Bathing Upper Body Minimal Assistance Bathing Lower Body Maximal Assistance Dressing Upper Body Minimal Assistance Dressing Lower Body Minimal Assistance (credit and collection manager and sock aide) Toileting Minimal Assistance Instrumental Activities of Daily Living Assist Level Additional Information Meal/Beverage Prep Cleaning Laundry Medication Management with Strategies Functional Mobility Assist Level Additional Information Rolling Supine to Sit Minimal Assistance Sit to Supine Scooting Sit to Stand Minimal Assistance Stand to Sit Minimal Assistance Bed to Chair Minimal Assistance Stand Pivot Wheeled Walker Toilet/Commode Minimal Assistance (heavy use of grab bars) Shower Functional Mobility Supervision (15 ft x 2) Wheeled Walker Blank peters indicate activity not attempted Tub Transfer: Moderate Assistance (grab bars and extended tub bench needed) Balance: Dynamic Sitting, Dynamic Standing Dynamic Sitting Balance: Good Patient accepts moderate challenge, able to maintain balance while picking up object off floor Dynamic Standing Balance: Fair Patient accepts minimal challenge, able to maintain balance while turning head/trun (more content not included)... [facility] THERAPY NT HNO ID: [id number] Author: Suellen Cruz PTA Service: Physical Therapy Author Type: Rose Grower Type: Therapy (PT/OT/Speech/Resp) Filed: 02/27/2023 12:19 PM Note Text: Attestation signed by Elle Johnson PT at 02/27/2023 12:51 PM I reviewed and agree with the documentation corresponding to this therapy visit. SIGNATURE: Elle Johnson PT DATE: February 27, 2023 TIME: 12:51 PM Physical Therapy Treatment SERVICE DATE: 02/27/2023 SERVICE TIME: 1056 to 1137 ROOM: [place] [address] Total Joint Replacement Discharge Readiness: Pending Physical Therapy Clearance Recommended Discharge Disposition: Home Recommended Discharge Disposition Comments: with HEP pending progress Anticipated Discharge Needs: Supervision at Home Supervision at Home due to: Decreased safety awareness PT 6 Clicks Score: 23 Precautions/Activity Restrictions: Spine, Lines/Tubes/Drains, Fall Risk, Brace Precaution/Activity Restriction Comments: large FABRICE drain; LSO Current Hospital Course: Elective surgery Reason for Hospital Admission: s/p TLIF L5-S1, PLIF L4-S1, decompression L4-S1, BMA by Dr. Sandoval Relevant Past Medical History: HTN, DM, GERD Response to Therapy Interventions: Low Activity Tolerance, Requires Additional Time to Complete Activities Assessment Comments: pt w/ decreased endurance/activity tolerance. 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 Physical Therapy Problem List: Pain, Safety Deficits, Decreased Activity Tolerance, Functional Mobility Impairment, Balance Impaired Treatment Interventions: Education, Functional Mobility Training, Balance Training, Neuromuscular Re-education Home Environment Patient Lives With: Spouse, Other: See Comment Comments: recently diagnosed with Cancer Assistance Available: 24-Hour Entry To Home: Stairs, With Rail Number Of Stairs Into Home: 3 Number Of Stairs To Bed/Bath: 0 Tub/Shower Type: tub/shower in main bath; has half bath she will used raised Laundry: FFSU - stackable in kitchen Equipment Owned: Grab Bars- Shower, Hand Held Shower, Commode- Raised, Cane, Rollator, Physician Practice Administrator, Long Handled Shoe Horn Prior Functional Level: Within Functional Limits Assistance Required With: Ambulation Prior Functional Level Comments: pt reports use of rollator at all times, notes unable to stand for long times - takes seated rest breaks on rollator. Notes poor endurance for 2 years after a fall on her buttocks, denies recent falls. Baseline Cognition: Oriented to self, Oriented to place, Oriented to time, Oriented to situation Patient Report: I fell two years ago and since then I am very afraid of falling CURRENT FUNCTIONAL STATUS: Most recent performance Current Functional Mobility Assist Level Additional Information Rolling Supervision Supine to Sit Supervision slow to move, log roll technique Sit to Supine Moderate Assistance, Additional Information Scooting Supervision Sit to Stand Supervision (multiple trials from various surface heights. Slow to move.) Stand to Sit Supervision Bed to Chair Toilet/Commode Gait Supervision Gait Device: Wheeled Walker Gait Distance (feet): 90'x1 Stairs Supervision Stairs Device: Rail, Other: See Comment (Pt forward facing, declined to attempt w/ rail and cane due to fear of falling. per pt can provide assist as needed.) Number of Stairs: 3 Curb Step Car Transfer Verbal Cues Only Blank peters indicate activity not attempted General Deviations/Observations : Lilibeth decreased, Non-functional gait speed, Step length decreased (4 standing rest breaks.) Balance: Static Sitting, Dynamic Sitting, Static Standing, Dynamic Standing Static Sitting Balance: Good Patient able to maintain balance without handhold support, limited postural sway Dynamic Sitting Balance: Good Patient accepts moderate challenge, able to maintain balance while picking up object off floor Static Standing Balance: Normal Patient able to maintain steady balance without handhold support Dynamic Standing Balance: Normal Patient accepts maximal challenge and can shift weight easily within full range in all directions -HLM: 7: Walk 25 feet or more Learning/Educational Needs: Plan of Care Goals for Plan of Care: Patient/Caregiver Goals: Walk, Go Home Goals: Patient will demonstrate understanding of importance of mobility during hospital stay and resolve all functional needs identified. Transfer Supine to/from Sit with: Supervision Transfer Sit to/from Stand with: Supervision Ambulate with: Supervision Distance: 80 Device: Wheeled Walker Ambulate Up and Down Steps with: Supervision Number of Steps: 3 Device: (more content not included)... Normal [facility] Basic metabolic 2000 panelon 02-26-2023 Anion gap [Moles/Vol] 8 mmol/L Normal 5-16 [facility] Comment on above: Order Comment: Speci men Type: BLOOD SPECIMEN Ordering Facility: [facility] Address: [address] Performed By: #### 2 4321-2, 6-4, 38843-1 #### [facility] CLIA [id number] [address] [place] [address] [place] #### 65301-4 #### [facility] CLIA [id number] [address] [place] [address] [place] Calcium [Mass/Vol] 9.1 mg/dL Normal 8.5-10.5 [facility] Comment on above: Order Comment: Speci men Type: BLOOD SPECIMEN Ordering Facility: [facility] Address: [address] [place], [place] Performed By: #### 2 4321-2, 6-4, 10733-9 #### [facility] CLIA [id number] [address] [place] [address] [place] #### 57264-4 #### [facility] CLIA [id number] [address] [place] [address] [place] Chloride [Moles/Vol] 98 mmol/L Normal 98-107 [facility] Comment on above: Order Comment: Speci men Type: BLOOD SPECIMEN Ordering Facility: [facility] Address: [address] [place], [place] Performed By: #### 2 4321-2, 6-4, 44959-2 #### [facility] CLIA [id number] [address] [place] [address] [place] #### 62918-3 #### [facility] CLIA [id number] [address] [place] [address] [place] CO2 [Moles/Vol] 31 mmol/L Normal 21-32 [facility] Comment on above: Order Comment: Oleg najera Type: BLOOD SPECIMEN Ordering Facility: [facility] Address: [address] [place] [address] Performed By: #### 2 4321-2, 2276-4, 43164-4 #### [facility] CLIA [id number] [address] [place] [address] [place] #### 05864-3 #### [facility] CLIA [id number] [address] [place] [address] [place] Creatinine [Mass/Vol] 1.11 mg/dL High 0.51-0.95 [facility] Comment on above: Order Comment: Oleg najera Type: BLOOD SPECIMEN Ordering Facility: [facility] Address: [address] [place], [place] [address] Result Comment: Sade ents receiving either N-Acetylcysteine (NAC) or Metamizole prior to venipuncture, may have falsely depressed results. Performed By: #### 2 4321-2, 2276-4, 58280-8 #### [facility] CLIA [id number] [address] [place] [address] [place] #### 80019-2 #### [facility] CLIA [id number] [address] [place] [address] [place] ESTIMATED GLOMERULAR FILTRATION RATE 54 mL/min/1.73m??? Low >=60 [facility] Comment on above: Order Comment: Oleg najera Type: BLOOD SPECIMEN Ordering Facility: [facility] Address: [address] [place] [address] Result Comment: Poornima mated Glomerular Filtration Rate (eGFR) is calculated using the 2020 CKD-EPI creatinine equation. This equation utilizes serum creatinine, sex, and age as parameters. The creatinine assay has traceable calibration to isotope dilution-mass spectrometry. Refer to KDIGO guidelines for clinical interpretation. In patients with unstable renal function, e.g. those with acute kidney injury, the eGFR may not accurately reflect actual GFR. Performed By: #### 2 4321-2, 2276-4, 82254-7 #### [facility] CLIA [id number] [address] [place] [address] [place] #### 57107-3 #### [facility] CLIA [id number] [facility] [place] [address] [place] Glucose [Mass/Vol] 205 mg/dL High 70-100 [facility] Comment on above: Order Comment: Oleg najera Type: BLOOD SPECIMEN Ordering Facility: [facility] Address: [place] [id number] Result Comment: The [place] Diabetes Association (ADA) provides guidance for cutoff values for fasting glucose and random glucose. The ADA defines fasting as no caloric intake for at least 8 hours. Fasting plasma glucose results between 100 to 125 mg/dL indicate increased risk for diabetes (prediabetes). Fasting plasma glucose results greater than or equal to 126 mg/dL meet the criteria for diagnosis of diabetes. In the absence of unequivocal hyperglycemia, results should be confirmed by repeat testing. In a patient with classic symptoms of hyperglycemia or hyperglycemic crisis, random plasma glucose results greater than or equal to 200 mg/dL meet the criteria for diagnosis of diabetes. Reference: Standards of Medical Care in Diabetes 2016, [place] Diabetes Association. Diabetes Care. 2016.39(Suppl 1). Results may be falsely elevated after the administration of Sulfapyridine. Results may be falsely depressed after the administration of Sulfasalazine. Performed By: #### 2 4321-2, 2276-4, 67605-6 #### [facility] CLIA [id number] [address] [place] [address] [place] #### 90018-3 #### [facility] CLIA [id number] [address] [place] [address] [place] Potassium [Moles/Vol] 4.3 mmol/L Normal 3.5-5.1 [facility] Comment on above: Order Comment: Speci men Type: BLOOD SPECIMEN Ordering Facility: [facility] Address: [address] Performed By: #### 2 4321-2, 6-4, 54576-9 #### [facility] CLIA [id number] [address] [place] [address] [place] #### 38720-6 #### [facility] CLIA [id number] [address] [place] [address] [place] Sodium [Moles/Vol] 137 mmol/L Normal 136-145 [facility] Comment on above: Order Comment: Speci men Type: BLOOD SPECIMEN Ordering Facility: [facility] Address: [address] [place] [address] Performed By: #### 2 4321-2, 6-4, 47006-5 #### [facility] CLIA [id number] [address] [place] [address] [place] #### 17753-5 #### [facility] CLIA [id number] [address] [place] [address] [place] Urea nitrogen [Mass/Vol] 19 mg/dL Normal 7-26 [facility] Comment on above: Order Comment: Speci men Type: BLOOD SPECIMEN Ordering Facility: [facility] Address: [address] Performed By: #### 2 4321-2, 6-4, 14003-2 #### [facility] CLIA [id number] [address] [place] [address] [place] #### 13872-0 #### [facility] CLIA [id number] [address] [place] [address] [place] CBC panel Auto (Bld)on 02-26 Erythrocyte distribution width (RBC) [Ratio] 13.9 % Normal 11.5-15.0 [facility] Comment on above: Order Comment: Speci men Type: BLOOD SPECIMEN Ordering Facility: [facility] Address: [address] [place] [address] Performed By: #### 2 4321-2, 6-, 26548-6 #### [facility] CLIA [id number] [address] [place] [address] [place] #### 47522-6 #### [facility] CLIA [id number] [address] [place] [address] [place] Hematocrit (Bld) [Volume fraction] 36.2 % Normal 36.0-46.0 [facility] Comment on above: Order Comment: Speci men Type: BLOOD SPECIMEN Ordering Facility: [facility] Address: [address] [place], [place] [address] Performed By: #### 2 4321-2, 2275-12, 12951-7 #### [facility] CLIA [id number] [address] [place] [address] [place] #### 16131-8 #### [facility] CLIA [id number] [address] [place] [address] [place] Hemoglobin (Bld) [Mass/Vol] 11.4 g/dL Low 11.5-15.5 [facility] Comment on above: Order Comment: Speci men Type: BLOOD SPECIMEN Ordering Facility: [facility] Address: [address] [place], [place] [address] Performed By: #### 2 4321-2, 6-, 29259-9 #### [facility] CLIA [id number] [address] [place] [address] [place] #### 35360-3 #### [facility] CLIA [id number] [address] [place] [address] [place] MCH (RBC) [Entitic mass] 27.8 pg Normal 26.0-34.0 [facility] Comment on above: Order Comment: Speci men Type: BLOOD SPECIMEN Ordering Facility: [facility] Address: [facility] [place], [place] Performed By: #### 2 4321-2, 6-, 50325-5 #### [facility] CLIA [id number] [address] [place] [address] [place] #### 44834-5 #### [facility] CLIA [id number] [address] [place] [address] [place] MCHC (RBC) [Mass/Vol] 31.5 g/dL Normal 30.5-36.0 [facility] Comment on above: Order Comment: Speci men Type: BLOOD SPECIMEN Ordering Facility: [facility] Address: [address] [place] [address] Performed By: #### 2 4321-2, 2275-12, 60154-6 #### [facility] CLIA [id number] [address] [place] [address] [place] #### 32545-6 #### [facility] CLIA [id number] [address] [place] [address] [place] MCV (RBC) [Entitic vol] 88.3 fL Normal 80.0-100.0 M [facility] Comment on above: Order Comment: Speci men Type: BLOOD SPECIMEN Ordering Facility: [facility] Address: [address] [place], [place] Performed By: #### 2 4321-2, 2275-12, 09029-5 #### [facility] CLIA [id number] [address] [place] [address] [place] #### 47174-4 #### [facility] CLIA [id number] [address] [place] [address] [place] Nucleated RBC (Bld) [#/Vol] 10*3/uL Normal <0.01 [facility] Comment on above: Order Comment: Speci men Type: BLOOD SPECIMEN Ordering Facility: [facility] Address: [address] [place], [place] Performed By: #### 2 4321-2, 6-4, 70040-4 #### [facility] CLIA [id number] [address] [place] [address] [place] #### 12896-2 #### [facility] CLIA [id number] [address] [place] [address] [place] Platelet mean volume (Bld) [Entitic vol] 9.3 fL Normal 9.0-12.7 [facility] Comment on above: Order Comment: Speci men Type: BLOOD SPECIMEN Ordering Facility: [facility] Address: [address] [place], [place] Performed By: #### 2 4321-2, 2275-4, 19660-1 #### [facility] CLIA [id number] [address] [place] [address] [place] #### 23195-0 #### [facility] CLIA [id number] [address] [place] [address] [place] Platelets (Bld) [#/Vol] 242 10*3/uL Normal 150-400 [facility] Comment on above: Order Comment: Speci men Type: BLOOD SPECIMEN Ordering Facility: [facility] Address: [address] [place], [place] Performed By: #### 2 4321-2, 2275-12, 90335-8 #### [facility] CLIA [id number] [address] [place] [address] [place] #### 69581-0 #### [facility] CLIA [id number] [address] [place] [address] [place] RBC (Bld) [#/Vol] 4.10 10*6/uL Normal 3.90-5.20 [facility] Comment on above: Order Comment: Speci men Type: BLOOD SPECIMEN Ordering Facility: [facility] Address: [place] [address] Performed By: #### 2 4321-2, 2276-4, 18795-9 #### [facility] CLIA [id number] [address] [place], [place] [address] [facility] #### 60267-0 #### [facility] CLIA [id number] [address] [place] [address] [place] WBC (Bld) [#/Vol] 13.12 10*3/uL High 3.70-11.00 [facility] Comment on above: Order Comment: Speci men Type: BLOOD SPECIMEN [facility] [facility] Address: [facility] [place] [address] Performed By: #### 2 4321-2, 2276-4, 18413-9 #### [facility] CLIA [id number] [address] [place] [address] OF JULIENNE #### 18279-6 #### [facility] CLIA [id number] [address] [place] [address] [facility] THERAPY NTon 02-26-2023 THERAPY NT HNO ID: [id number] Author: Donna Alberto PTA Service: Physical Therapy Author Type: Rose Grower Type: Therapy (PT/OT/Speech/Resp) Filed: 02/26/2023 11:49 AM Note Text: Attestation signed by Lucrecia Parish PT at 02/26/2023 12:13 PM I reviewed and agree with the assessment as documented above. SIGNATURE: Lucrecia Parish PT DATE: February 26, 2023 TIME: 12:13 PM Physical Therapy Treatment SERVICE DATE: 02/26/2023 SERVICE TIME: 1040 to 1103 ROOM: [id number] Total Joint Replacement Discharge Readiness: Pending Physical Therapy Clearance Recommended Discharge Disposition: Home Recommended Discharge Disposition Comments: with HEP pending progress Anticipated Discharge Needs: Supervision at Home Supervision at Home due to: Decreased safety awareness PT 6 Clicks Score: 18 Precautions/Activity Restrictions: Spine, Lines/Tubes/Drains, Fall Risk, Brace Precaution/Activity Restriction Comments: large FABRICE drain; LSO Current Hospital Course: Elective surgery Reason for Hospital Admission: s/p TLIF L5-S1, PLIF L4-S1, decompression L4-S1, BMA by Dr. Sandoval Relevant Past Medical History: HTN, DM, GERD Response to Therapy Interventions: Low Activity Tolerance, Requires Additional Time to Complete Activities Assessment Comments: Patient responded fair. Patient once again appearing extremely drowsy/lethargic throughout treatment session. Patient often having difficulty keeping eyes open. Patient also continues to require some encouragement to push self throughout treatment session. Dr Sandoval present at end of treatment session; voiced concern re: patient's current level of drowsiness. Continued Skilled Needs Due to: Safety Concerns, Functional Mobility/Skill Impairments Physical Therapy Problem List: Pain, Safety Deficits, Decreased Activity Tolerance, Functional Mobility Impairment, Balance Impaired Treatment Interventions: Education, Functional Mobility Training, Balance Training, Neuromuscular Re-education Plan for Next Visit: Gait Training, Stair Training Home Environment Patient Lives With: Spouse, Other: See Comment Comments: recently diagnosed with Cancer Assistance Available: 24-Hour Entry To Home: Stairs, With Rail Number Of Stairs Into Home: 3 Number Of Stairs To Bed/Bath: 0 Tub/Shower Type: tub/shower in main bath; has half bath she will used raised Laundry: FFSU - stackable in kitchen Equipment Owned: Grab Bars- Shower, Hand Held Shower, Commode- Raised, Cane, Rollator, Physician Practice Administrator, Long Handled Shoe Horn Prior Functional Level: Within Functional Limits Assistance Required With: Ambulation Prior Functional Level Comments: pt reports use of rollator at all times, notes unable to stand for long times - takes seated rest breaks on rollator. Notes poor endurance for 2 years after a fall on her buttocks, denies recent falls. Baseline Cognition: Oriented to self, Oriented to place, Oriented to time, Oriented to situation Patient Report: I'm not having any pain CURRENT FUNCTIONAL STATUS: Most recent performance Current Functional Mobility Assist Level Additional Information Rolling Supine to Sit Minimal Assistance, Additional Information log roll. Increased time and effort required to complete. Sit to Supine Moderate Assistance, Additional Information Scooting Stand By Assistance Sit to Stand Minimal Assistance Stand to Sit Minimal Assistance Bed to Chair Toilet/Commode Gait Minimal Assistance Gait Device: Wheeled Walker Gait Distance (feet): 32 feet x 2 Stairs Curb Step Car Transfer Blank peters indicate activity not attempted General Deviations/Observations : Lilibeth decreased, Non-functional gait speed, Step length decreased, Improper distancing from assistive device Balance: Static Sitting, Dynamic Sitting, Static Standing, Dynamic Standing Static Sitting Balance: Good Patient able to maintain balance without handhold support, limited postural sway Dynamic Sitting Balance: Fair Patient accepts minimal challenge, able to maintain balance while turning head/trunk Static Standing Balance: Fair Patient able to maintain balance with handhold support, may require occasional minimal assistance Dynamic Standing Balance: Fair Patient accepts minimal challenge, able to maintain balance while turning head/trunk JH-HLM: 7: Walk 25 feet or more Learning/Educational Needs: Plan of Care Goals for Plan of Care: Patient/Caregiver Goals: Walk, Go Home Goals: Patient will demonstrate understanding of importance of mobility during hospital stay and resolve all functional needs identified. Transfer Supine to/from Sit with: Supervision Transfer Sit to/from Stand with: Supervision Ambulate with: Supervision Distance: 80 Device: Wheeled Walker (more content not included)... Normal [facility] Basic metabolic 2000 panelon 02-25-2023 Anion gap [Moles/Vol] 8 mmol/L Normal 5-16 [facility] Comment on above: Order Comment: Speci men Type: BLOOD SPECIMEN Ordering Facility: [facility] Address: [address] [place] [address] Performed By: #### 2 4321-2, 2276-4, 45990-0 #### [facility] CLIA [id number] [address] [place] [address] [place] #### 78653-4 #### [facility] CLIA [id number] [address] [place] [address] [place] Calcium [Mass/Vol] 8.7 mg/dL Normal 8.5-10.5 [facility] Comment on above: Order Comment: Speci men Type: BLOOD SPECIMEN Ordering Facility: [facility] Address: [address] [address] Performed By: #### 2 4321-2, 2276-4, 60760-7 #### [facility] CLIA [id number] [address] [place] [address] [place] #### 52114-3 #### [facility] CLIA [id number] [address] [place] [address] [place] Chloride [Moles/Vol] 99 mmol/L Normal 98-107 [facility] Comment on above: Order Comment: Speci men Type: BLOOD SPECIMEN Ordering Facility: [facility] Address: [address] [address] Performed By: #### 2 4321-2, 2275-4, 52137-2 #### [facility] CLIA [id number] [address] [place] [address] [place] #### 70759-8 #### [facility] CLIA [id number] [address] [place] [address] [place] CO2 [Moles/Vol] 34 mmol/L High 21-32 [facility] Comment on above: Order Comment: Speci men Type: BLOOD SPECIMEN Ordering Facility: [facility] Address: [address] [place] [address] Performed By: #### 2 4321-2, 6-4, 74440-0 #### [facility] CLIA [id number] [address] [place] [address] [place] #### 45810-9 #### [facility] CLIA [id number] [address] [place] [address] [place] Creatinine [Mass/Vol] 1.16 mg/dL High 0.51-0.95 [facility] Comment on above: Order Comment: Speci men Type: BLOOD SPECIMEN Ordering Facility: [facility] Address: [address] [place] [address] Result Comment: Sade ents receiving either N-Acetylcysteine (NAC) or Metamizole prior to venipuncture, may have falsely depressed results. Performed By: #### 2 4321-2, 2276-4, 50127-0 #### [facility] CLIA [id number] [address] [place] [address] STATES [facility] #### 30906-4 #### [facility] CLIA [id number] [address] [place] [address] [place] [facility] ESTIMATED GLOMERULAR FILTRATION RATE 51 mL/min/1.73m??? Low >=60 [facility] Comment on above: Order Comment: Jessii dania Type: BLOOD SPECIMEN Ordering Facility: [facility] Address: [address] [place] [address] Result Comment: Poornima mated Glomerular Filtration Rate (eGFR) is calculated using the 2020 CKD-EPI creatinine equation. This equation utilizes serum creatinine, sex, and age as parameters. The creatinine assay has traceable calibration to isotope dilution-mass spectrometry. Refer to KDIGO guidelines for clinical interpretation. In patients with unstable renal function, e.g. those with acute kidney injury, the eGFR may not accurately reflect actual GFR. Performed By: #### 2 4321-2, 2276-4, 49234-1 #### [facility] CLIA [id number] [address] [place] [address] [place] #### 63697-4 #### [facility] CLIA [id number] [address] [place] [address] [place] Glucose [Mass/Vol] 268 mg/dL High 70-100 [facility] Comment on above: Order Comment: Oleg najera Type: BLOOD SPECIMEN Ordering Facility: [facility] Address: [place] [address] Result Comment: The [place] Diabetes Association (ADA) provides guidance for cutoff values for fasting glucose and random glucose. The ADA defines fasting as no caloric intake for at least 8 hours. Fasting plasma glucose results between 100 to 125 mg/dL indicate increased risk for diabetes (prediabetes). Fasting plasma glucose results greater than or equal to 126 mg/dL meet the criteria for diagnosis of diabetes. In the absence of unequivocal hyperglycemia, results should be confirmed by repeat testing. In a patient with classic symptoms of hyperglycemia or hyperglycemic crisis, random plasma glucose results greater than or equal to 200 mg/dL meet the criteria for diagnosis of diabetes. Reference: Standards of Medical Care in Diabetes 2016, [place] Diabetes Association. Diabetes Care. 2016.39(Suppl 1). Results may be falsely elevated after the administration of Sulfapyridine. Results may be falsely depressed after the administration of Sulfasalazine. Performed By: #### 2 4321-2, 2276-4, 46852-7 #### [facility] CLIA [id number] [address] [place] [address] [place] #### 66570-9 #### [facility] CLIA [id number] [address] [place] [address] [place] Potassium [Moles/Vol] 4.3 mmol/L Normal 3.5-5.1 [facility] Comment on above: Order Comment: Oleg najera Type: BLOOD SPECIMEN Ordering Facility: [facility] Address: [place] [address] Performed By: #### 2 4321-2, 2276-4, 56364-9 #### [facility] CLIA [id number] [address] [place] [address] [place] #### 64541-6 #### [facility] CLIA [id number] [address] [place] [address] [place] Sodium [Moles/Vol] 141 mmol/L Normal 136-145 [facility] Comment on above: Order Comment: Speci men Type: BLOOD SPECIMEN Ordering Facility: [facility] Address: [address] Performed By: #### 2 4321-2, 2276-4, 23619-7 #### [facility] CLIA [id number] [address] [place] [address] [place] #### 55833-0 #### [facility] CLIA [id number] [address] [place] [address] [place] Urea nitrogen [Mass/Vol] 17 mg/dL Normal 7-26 [facility] Comment on above: Order Comment: Speci men Type: BLOOD SPECIMEN Ordering Facility: [facility] Address: [address] [address] Performed By: #### 2 4321-2, 2276-4, 00833-7 #### [facility] CLIA [id number] [address] [place] [address] [place] #### 26352-6 #### [facility] CLIA [id number] [address] [place] [address] [place] CBC panel Auto (Bld)on 02-25 Erythrocyte distribution width (RBC) [Ratio] 14.0 % Normal 11.5-15.0 [facility] Comment on above: Order Comment: Speci men Type: BLOOD SPECIMEN Ordering Facility: [facility] Address: [address] Performed By: #### 5 7021-8, 49500-5 #### [facility] CLIA [id number] [address] [place] [address] [place] Hematocrit (Bld) [Volume fraction] 36.5 % Normal 36.0-46.0 [facility] Comment on above: Order Comment: Speci men Type: BLOOD SPECIMEN Ordering Facility: [facility] Address: [address] Performed By: #### 5 7021-8, 54411-5 #### [facility] CLIA [id number] [address] [place] [address] [place] Hemoglobin (Bld) [Mass/Vol] 11.3 g/dL Low 11.5-15.5 [facility] Comment on above: Order Comment: Speci men Type: BLOOD SPECIMEN Ordering Facility: [facility] Address: [address] [address] Performed By: #### 5 7021-8, 71674-1 #### [facility] CLIA [id number] [address] [place] [address] [place] MCH (RBC) [Entitic mass] 27.4 pg Normal 26.0-34.0 [facility] Comment on above: Order Comment: Speci men Type: BLOOD SPECIMEN Ordering Facility: [facility] Address: [address] [address] Performed By: #### 5 7021-8, 40094-7 #### [facility] CLIA [id number] [address] [place] [address] [place] MCHC (RBC) [Mass/Vol] 31.0 g/dL Normal 30.5-36.0 [facility] Comment on above: Order Comment: Speci men Type: BLOOD SPECIMEN Ordering Facility: [facility] Address: [address] Performed By: #### 5 7021-8, 39548-1 #### [facility] CLIA [id number] [address] [place] [address] [place] MCV (RBC) [Entitic vol] 88.6 fL Normal 80.0-100.0 M [facility] Comment on above: Order Comment: Speci men Type: BLOOD SPECIMEN Ordering Facility: [facility] Address: [address] [address] Performed By: #### 5 7021-8, 47584-9 #### [facility] CLIA [id number] [address] [place] [address] [place] Nucleated RBC (Bld) [#/Vol] 10*3/uL Normal <0.01 [facility] Comment on above: Order Comment: Speci men Type: BLOOD SPECIMEN Ordering Facility: [facility] Address: [address] [place] [address] Performed By: #### 5 7021-8, 47384-2 #### [facility] CLIA [id number] [address] [place] [address] [place] Platelet mean volume (Bld) [Entitic vol] 9.2 fL Normal 9.0-12.7 [facility] Comment on above: Order Comment: Speci men Type: BLOOD SPECIMEN Ordering Facility: [facility] Address: [address] [place] [address] Performed By: #### 5 7021-8, 80560-7 #### [facility] CLIA [id number] [address] [place] [address] [place] Platelets (Bld) [#/Vol] 220 10*3/uL Normal 150-400 [facility] Comment on above: Order Comment: Speci men Type: BLOOD SPECIMEN Ordering Facility: [facility] Address: [address] [place] [address] Performed By: #### 5 7021-8, 85658-6 #### [facility] CLIA [id number] [address] [place] [address] [place] RBC (Bld) [#/Vol] 4.12 10*6/uL Normal 3.90-5.20 [facility] Comment on above: Order Comment: Speci men Type: BLOOD SPECIMEN Ordering Facility: [facility] Address: [address] [place] [address] Performed By: #### 5 7021-8, 38347-1 #### [facility] CLIA [id number] [address] [place] [address] [place] WBC (Bld) [#/Vol] 14.25 10*3/uL High 3.70-11.00 [facility] Comment on above: Order Comment: Speci men Type: BLOOD SPECIMEN Ordering Facility: [facility] Address: [place] [address] Performed By: #### 5 7021-8, 38452-9 #### [facility] CLIA [id number] [facility] [place] [address] [facility] THERAPY NTon 02-25-2023 THERAPY NT HNO ID: [id number] Author: Donna Alberto PTA Service: Physical Therapy Author Type: Rose Grower Type: Therapy (PT/OT/Speech/Resp) Filed: 02/25/2023 2:28 PM Note Text: Attestation signed by Shelli Mac PT, DPT at 02/25/2023 2:58 PM I reviewed and agree with the documentation corresponding to this therapy visit. SIGNATURE: Shelli Mac PT, DPT DATE: February 25, 2023 TIME: 2:58 PM Physical Therapy Treatment SERVICE DATE: 02/25/2023 SERVICE TIME: 1339 to 1403 ROOM: [place] [address] Recommended Discharge Disposition: Home Recommended Discharge Disposition Comments: with HEP pending progress Anticipated Discharge Needs: Supervision at Home Supervision at Home due to: Decreased safety awareness PT 6 Clicks Score: 18 Precautions/Activity Restrictions: Spine, Lines/Tubes/Drains, Fall Risk, Brace Precaution/Activity Restriction Comments: large FABRICE drain; LSO Current Hospital Course: Elective surgery Reason for Hospital Admission: s/p TLIF L5-S1, PLIF L4-S1, decompression L4-S1, BMA by Dr. Sandoval Relevant Past Medical History: HTN, DM, GERD Response to Therapy Interventions: Low Activity Tolerance, Requires Additional Time to Complete Activities Assessment Comments: Patient responded fair to today's visit. Patient continues to appear extremely drowsy/lethargic throughout treatment session. Patient required some encouragement to push self throughout treatment session. Continued Skilled Needs Due to: Safety Concerns, Functional Mobility/Skill Impairments Physical Therapy Problem List: Pain, Safety Deficits, Decreased Activity Tolerance, Functional Mobility Impairment, Balance Impaired Treatment Interventions: Education, Functional Mobility Training, Balance Training, Neuromuscular Re-education Plan for Next Visit: Gait Training Home Environment Patient Lives With: Spouse, Other: See Comment Comments: recently diagnosed with Cancer Assistance Available: 24-Hour Entry To Home: Stairs, With Rail Number Of Stairs Into Home: 3 Number Of Stairs To Bed/Bath: 0 Tub/Shower Type: tub/shower in main bath; has half bath she will used raised Laundry: FFSU - stackable in kitchen Equipment Owned: Grab Bars- Shower, Hand Held Shower, Commode- Raised, Cane, Rollator, Physician Practice Administrator, Long Handled Shoe Horn Prior Functional Level: Within Functional Limits Assistance Required With: Ambulation Prior Functional Level Comments: pt reports use of rollator at all times, notes unable to stand for long times - takes seated rest breaks on rollator. Notes poor endurance for 2 years after a fall on her buttocks, denies recent falls. Baseline Cognition: Oriented to self, Oriented to place, Oriented to time, Oriented to situation Patient Report: I'm just so sleepy CURRENT FUNCTIONAL STATUS: Most recent performance Current Functional Mobility Assist Level Additional Information Rolling Supine to Sit Sit to Supine Moderate Assistance, Additional Information Scooting Sit to Stand Minimal Assistance Stand to Sit Minimal Assistance Bed to Chair Toilet/Commode Gait Minimal Assistance Gait Device: Wheeled Walker Gait Distance (feet): 25 feet x 2 Stairs Curb Step Car Transfer Blank peters indicate activity not attempted General Deviations/Observations : Lilibeth decreased, Non-functional gait speed, Step length decreased Balance: Static Sitting, Dynamic Sitting, Static Standing, Dynamic Standing Static Sitting Balance: Good Patient able to maintain balance without handhold support, limited postural sway Dynamic Sitting Balance: Fair Patient accepts minimal challenge, able to maintain balance while turning head/trunk Static Standing Balance: Fair Patient able to maintain balance with handhold support, may require occasional minimal assistance Dynamic Standing Balance: Fair Patient accepts minimal challenge, able to maintain balance while turning head/trunk -HLM: 7: Walk 25 feet or more Learning/Educational Needs: Plan of Care Exercise Ankle Pumps (number of reps): 10 Glut Sets (number of reps): 10 LAQ (number of reps): 10 Goals for Plan of Care: Patient/Caregiver Goals: Walk, Go Home Goals: Patient will demonstrate understanding of importance of mobility during hospital stay and resolve all functional needs identified. Transfer Supine to/from Sit with: Supervision Transfer Sit to/from Stand with: Supervision Ambulate with: Supervision Distance: 80 Device: Wheeled Walker Ambulate Up and Down Steps with: Supervision Number of Steps: 3 Device: Rail Progress Toward Goals: Progressing slower than expected Due To: Drowsy/lethargic Rehab Potential: Good Patient will be discontinued from Physical Therapy when no further skilled needs are identified in this setting (more content not included)... [facility] THERAPY NT HNO ID: [id number] Author: RANI Benz Service: Occupational Therapy Author Type: [facility] Counselor Type: Therapy (PT/OT/Speech/Resp) Filed: 02/25/2023 10:25 AM Note Text: Attestation signed by MISTY Tamez at 02/25/2023 12:53 PM I reviewed and agree with the documentation corresponding to this therapy visit. SIGNATURE: MISTY Tamez DATE: February 25, 2023 TIME: 12:53 PM Occupational Therapy Treatment SERVICE DATE: 02/25/2023 SERVICE TIME: 0924 to 1006 ROOM: [id number] Recommended Discharge Disposition: Home Recommended Discharge Disposition Comments: pt presents with decreased endurance, dynamic balance, functional independence and safety. pt feeling drowsy this AM, would benefit from cont OT services Anticipated Discharge Needs: Supervision at Home Supervision at Home due to: Decreased safety awareness OT 6 Clicks Score: 16 Precautions/Activity Restrictions: Spine, Lines/Tubes/Drains, Fall Risk, Brace Precaution/Activity Restriction Comments: large FABRICE drain; LSO Current Hospital Course: Elective surgery Reason for Hospital Admission: s/p TLIF L5-S1, PLIF L4-S1, decompression L4-S1, BMA by Dr. Sandoval Relevant Past Medical History: HTN, DM, GERD Response to Therapy Interventions: Good Participation in Activities, Low Activity Tolerance, Slow Progression with Functional Activities/Skills, Slow Progression with ADLs/IADLs Assessment Comments: Tolerated fair, pt continues to struggle w/ pain, OOB activity tolerance and decreased standing balance. Pt demos multiple LoB today requiring heavy hands on assist at all times and is a high fall risk. Anticipating pt will improve to d/c home but will continue to monitor for possible rehab placement if she does not improve as she is currently min to mod A for functional tasks and a high fall risk Occupational Therapy Problem List: Pain, Safety Deficits, Impaired Self Care, Decreased Activity Tolerance Cognition/Communication Deficits Responsiveness: Drowsy, Alert Follows Commands: 3-step Commands Treatment Interventions: Education, Self Care/Home Management Plan for Next Visit: Bed Mobility, Dressing Training, Standing Tolerance, Standing Balance, Sit to Stand Transfers, Shower/Tub Transfer Training Home Environment Patient Lives With: Spouse, Other: See Comment Comments: recently diagnosed with Cancer Assistance Available: 24-Hour Entry To Home: Stairs, With Rail Number Of Stairs Into Home: 3 Number Of Stairs To Bed/Bath: 0 Tub/Shower Type: tub/shower in main bath; has half bath she will used raised Laundry: FFSU - stackable in kitchen Equipment Owned: Grab Bars- Shower, Hand Held Shower, Commode- Raised, Cane, Rollator, Physician Practice Administrator, Long Handled Shoe Horn Prior Functional Level: Within Functional Limits Assistance Required With: Ambulation Prior Functional Level Comments: pt reports use of rollator at all times, notes unable to stand for long times - takes seated rest breaks on rollator. Notes poor endurance for 2 years after a fall on her buttocks, denies recent falls. 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 Highest Level of Education: College/Professional Trade Occupational Factors Life Roles: Family Member, Retired, Parent, Spouse/Significant Other Identified Strengths: Good Support System Identified Barriers: Difficulty with ADLs/IADLs Patient Report: Pt was pleasant and agreeable to therapy Im a little groggy after the pain meds, I have to get home because my found out he has cancer and I need to go to my husbands 1st doctors appointment CURRENT FUNCTIONAL STATUS: Most recent performance Current Activities of Daily Living Assist Level Additional Information Feeding Set Up Grooming Minimal Assistance Bathing Upper Body Minimal Assistance Bathing Lower Body Maximal Assistance Dressing Upper Body Minimal Assistance Dressing Lower Body Moderate Assistance (credit and collection manager and sock aide) Toileting Maximal Assistance Instrumental Activities of Daily Living Assist Level Additional Information Meal/Beverage Prep Cleaning Laundry Medication Management with Strategies Functional Mobility Assist Level Additional Information Rolling Supine to Sit Minimal Assistance Sit to Supine Scooting Sit to Stand Moderate Assistance Stand to Sit Minimal Assistance Bed to Chair Minimal Assistance Stand Pivot Wheeled Walker Toilet/Commode Shower Functional Mobility Minimal Assistance (15 ft x 2, very slow pace) Wheeled Walker Blank peters indicate activity not attempted Balance: Dynamic Sitting, Dynamic Standing Dynamic Sitting Balance: Good Patient accepts mod (more content not included)... Normal [facility] Basic metabolic 2000 panelon 02-24-2023 Anion gap [Moles/Vol] 7 mmol/L Normal 5-16 [facility] Comment on above: Order Comment: Speci men Type: BLOOD SPECIMEN Ordering Facility: [facility] Address: [place] [address] Performed By: #### 5 7021-8, 35503-4 #### [facility] CLIA [id number] [address] [place] [address] [place] Calcium [Mass/Vol] 8.6 mg/dL Normal 8.5-10.5 [facility] Comment on above: Order Comment: Speci men Type: BLOOD SPECIMEN Ordering Facility: [facility] Address: [address] [place] [address] Performed By: #### 5 7021-8, 33490-9 #### [facility] CLIA [id number] [address] [place] [address] [place] Chloride [Moles/Vol] 101 mmol/L Normal 98-107 [facility] Comment on above: Order Comment: Speci men Type: BLOOD SPECIMEN Ordering Facility: [facility] Address: [address] [place] [address] Performed By: #### 5 7021-8, 02022-0 #### [facility] CLIA [id number] [address] [place] [address] [place] CO2 [Moles/Vol] 29 mmol/L Normal 21-32 [facility] Comment on above: Order Comment: Speci men Type: BLOOD SPECIMEN Ordering Facility: [facility] Address: [address] [place] [address] Performed By: #### 5 7021-8, 03663-5 #### [facility] CLIA [id number] [address] [place] [address] [place] Creatinine [Mass/Vol] 0.97 mg/dL High 0.51-0.95 [facility] Comment on above: Order Comment: Speci men Type: BLOOD SPECIMEN Ordering Facility: [facility] Address: [address] [place] [address] Result Comment: Sade ents receiving either N-Acetylcysteine (NAC) or Metamizole prior to venipuncture, may have falsely depressed results. Performed By: #### 5 7021-8, 96816-7 #### [facility] CLIA [id number] [address] [place] [address] [place] ESTIMATED GLOMERULAR FILTRATION RATE 64 mL/min/1.73m??? Normal >=60 [facility] Comment on above: Order Comment: Speci men Type: BLOOD SPECIMEN Ordering Facility: [facility] Address: [address] [place] [address] Result Comment: Poornima mated Glomerular Filtration Rate (eGFR) is calculated using the 2020 CKD-EPI creatinine equation. This equation utilizes serum creatinine, sex, and age as parameters. The creatinine assay has traceable calibration to isotope dilution-mass spectrometry. Refer to KDIGO guidelines for clinical interpretation. In patients with unstable renal function, e.g. those with acute kidney injury, the eGFR may not accurately reflect actual GFR. Performed By: #### 5 7021-8, 09122-2 #### [facility] CLIA [id number] [address] [place] [address] [place] Glucose [Mass/Vol] 366 mg/dL High 70-100 [facility] Comment on above: Order Comment: Oleg najera Type: BLOOD SPECIMEN Ordering Facility: [facility] Address: [address] [place], [place] [address] Result Comment: The [place] Diabetes Association (ADA) provides guidance for cutoff values for fasting glucose and random glucose. The ADA defines fasting as no caloric intake for at least 8 hours. Fasting plasma glucose results between 100 to 125 mg/dL indicate increased risk for diabetes (prediabetes). Fasting plasma glucose results greater than or equal to 126 mg/dL meet the criteria for diagnosis of diabetes. In the absence of unequivocal hyperglycemia, results should be confirmed by repeat testing. In a patient with classic symptoms of hyperglycemia or hyperglycemic crisis, random plasma glucose results greater than or equal to 200 mg/dL meet the criteria for diagnosis of diabetes. Reference: Standards of Medical Care in Diabetes 2016, [place] Diabetes Association. Diabetes Care. 2016.39(Suppl 1). Results may be falsely elevated after the administration of Sulfapyridine. Results may be falsely depressed after the administration of Sulfasalazine. Performed By: #### 5 7021-8, 78143-9 #### [facility] CLIA [id number] [address] [place], [place] [id number] [place] Potassium [Moles/Vol] 5.2 mmol/L High 3.5-5.1 [facility] Comment on above: Order Comment: Oleg najera Type: BLOOD SPECIMEN Ordering Facility: [facility] Address: [address] [id number] Performed By: #### 5 7021-8, 82074-7 #### [facility] CLIA [id number] [address] [place] [address] [place] Sodium [Moles/Vol] 137 mmol/L Normal 136-145 [facility] Comment on above: Order Comment: Speci men Type: BLOOD SPECIMEN Ordering Facility: [facility] Address: [address] [address] Performed By: #### 5 7021-8, 95901-9 #### [facility] CLIA [id number] [address] [place] [address] [place] Urea nitrogen [Mass/Vol] 16 mg/dL Normal 7-26 [facility] Comment on above: Order Comment: Speci men Type: BLOOD SPECIMEN Ordering Facility: [facility] Address: [address] [address] Performed By: #### 5 7021-8, 89121-7 #### [facility] CLIA [id number] [address] [place] [address] [place] CBC panel Auto (Bld)on 02-24 Erythrocyte distribution width (RBC) [Ratio] 13.8 % Normal 11.5-15.0 [facility] Comment on above: Order Comment: Speci men Type: BLOOD SPECIMEN Ordering Facility: [facility] Address: [address] [address] Performed By: #### 5 7021-8, 01145-8 #### [facility] CLIA [id number] [address] [place] [address] [place] Hematocrit (Bld) [Volume fraction] 36.1 % Normal 36.0-46.0 [facility] Comment on above: Order Comment: Speci men Type: BLOOD SPECIMEN Ordering Facility: [facility] Address: [address] [address] Performed By: #### 5 7021-8, 31561-2 #### [facility] CLIA [id number] [address] [place] [address] [place] Hemoglobin (Bld) [Mass/Vol] 11.6 g/dL Normal 11.5-15.5 [facility] Comment on above: Order Comment: Speci men Type: BLOOD SPECIMEN Ordering Facility: [facility] Address: [address] [place] [address] Performed By: #### 5 7021-8, 11779-6 #### [facility] CLIA [id number] [address] [place] [address] [place] MCH (RBC) [Entitic mass] 27.7 pg Normal 26.0-34.0 [facility] Comment on above: Order Comment: Speci men Type: BLOOD SPECIMEN Ordering Facility: [facility] Address: [address] [place] [address] Performed By: #### 5 7021-8, 12549-5 #### [facility] CLIA [id number] [address] [place] [address] OF [facility] MCHC (RBC) [Mass/Vol] 32.1 g/dL Normal 30.5-36.0 [facility] Comment on above: Order Comment: Speci men Type: BLOOD SPECIMEN Ordering Facility: [facility] Address: [address] [place] [address] Performed By: #### 5 7021-8, 84456-8 #### [facility] CLIA [id number] [address] [place] [address] [place] MCV (RBC) [Entitic vol] 86.2 fL Normal 80.0-100.0 M [facility] Comment on above: Order Comment: Speci men Type: BLOOD SPECIMEN Ordering Facility: [facility] Address: [address] [place] [address] Performed By: #### 5 7021-8, 30333-9 #### [facility] CLIA [id number] [address] [place] [address] [place] Nucleated RBC (Bld) [#/Vol] 10*3/uL Normal <0.01 [facility] Comment on above: Order Comment: Speci men Type: BLOOD SPECIMEN Ordering Facility: [facility] Address: [address] [address] Performed By: #### 5 7021-8, 92903-6 #### [facility] CLIA [id number] [address] [place] [address] [place] Platelet mean volume (Bld) [Entitic vol] 8.9 fL Low 9.0-12.7 [facility] Comment on above: Order Comment: Speci men Type: BLOOD SPECIMEN Ordering Facility: [facility] Address: [address] [place] [address] Performed By: #### 5 7021-8, 78457-6 #### [facility] CLIA [id number] [address] [place] [address] [place] Platelets (Bld) [#/Vol] 255 10*3/uL Normal 150-400 [facility] Comment on above: Order Comment: Speci men Type: BLOOD SPECIMEN Ordering Facility: [facility] Address: [address] [place], [place] [id number] Performed By: #### 5 7021-8, 87338-9 #### [facility] CLIA [id number] [address] [place] [address] [place] RBC (Bld) [#/Vol] 4.19 10*6/uL Normal 3.90-5.20 [facility] Comment on above: Order Comment: Speci men Type: BLOOD SPECIMEN Ordering Facility: [facility] Address: [address] Performed By: #### 5 7021-8, 72114-4 #### [facility] CLIA [id number] [address] [place] [address] [place] WBC (Bld) [#/Vol] 15.42 10*3/uL High 3.70-11.00 [facility] Comment on above: Order Comment: Speci men Type: BLOOD SPECIMEN Ordering Facility: [facility] Address: [address] [place] [address] [place] [address] Performed By: #### 5 7021-8, 09683-1 #### [facility] CLIA [id number] [address] [place] [address] [facility] CONSULTon 02-24-2023 CONSULT HNO ID: [id number] Author: Cecilia Farfan APRN.ENROLLMENT REPRESENTATIVE Service: Hospital Medicine Author Type: Nurse Practitioner Type: Consults Filed: 02/24/2023 4:30 PM Note Text: Attestation signed by Jericho Smalls MD at 02/25/2023 6:51 PM Agree with endocrinology consultation and aggressive stool regimen HOSPITALIST INITIAL CONSULT NOTE SERVICE DATE: 02/24/2023 SERVICE TIME: 3:54 PM REASON FOR CONSULT:med mgt, dm, obesity, ASHD REQUESTING PHYSICIAN: Jaime PRIMARY CARE PHYSICIAN: Willard Henriquez MD Subjective Ms. German is a 67 year old female with history of obesity, diabetes, ASHD, degenerative disc disease, hypertension who presents for decompression of L4-S1. Patient had ongoing hip pain related to stenosis. We have been asked to see postoperatively for medical management. Patient seen lying in bed complains of back pain 03/13. FABRICE drain present. Patient on U500 insulin, consulted endocrine as bs noted in the 300's. Appreciate recommendations. She admits to constipation. States its been over a week since her last bm but that is not uncommon for her. Denies numbness or tingling. FUNCTIONAL STATUS: Independent PAST MEDICAL HISTORY Diagnosis Date Advance directive discussed with patient 04/06/2022 Discussed 04/2022 Allergic rhinitis 02/10/2011 ASHD (arteriosclerotic heart disease) 03/08/[address] Ast[address] Dr[address] 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 History of left heart catheterization HEART CATH X2 STENTS X 3 NASH GARCIA Hyperlipidemia, mixed 06/30/2015 DR HUDSON, Hypertension, essential 06/30/2015 NASH GARCIA CARD- controlled with medication Joint pain PAIN MANAGMENT WILLARD [facility]UZ [facility] Living will on file 04/06/2022 DPA: Ever () Lumbar radiculopathy 04/28/2020 R L4 radiculopathy 04/2020 Medicare annual wellness visit, initial 04/06/2022 Medicare part B: 11/03/2019 Last done: 04/06/2022 Mild intermittent asthma without complication 02/10/2011 DENIES PROBLEMS, DENIES INHALERS Morbid obesity ([facility]) 01/10/2012 NATALIE (obstructive sleep apnea) 09/10/2019 On BiPAP and sees VENTURA Schaffer Osteoarthritis of both knees 02/02/2017 PONV (postoperative nausea and vomiting) Postherpetic neuralgia 03/14/2014 Right mid-trunk area. 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 Psoriasis 10/23/2017 Rash bilateral forearms Rosacea 04/19/2013 Shingles 2014 Spinal stenosis of lumbar region without neurogenic claudication 03/19/2021 DR SANDOVAL FOLLOWING Stage 3a chronic kidney disease (HCC) 03/19/2021 GERALD CALHOUN AND WILLARD [facility] Uncontrolled type 2 diabetes mellitus with hyperglycemia ([facility]) 12/24/2019 Seeing GERALD Marte Uses roller walker Vitamin D deficiency 03/19/2021 Wears glasses reading PAST SURGICAL HISTORY Procedure Laterality Date ANESTH, HYSTERECTOMY 2000 ANESTHESIA NOSE AND ACCESSORY SINUSES NOS 1995 CHOLECYSTECTOMY 1989 COLONOSCOPY FLX DX W/COLLJ SPEC WHEN PFRMD 04/18/2011 X3 HEART CATHETERIZATION 2002 HEART CATH X2 2002 AND 2019 STENTS X3 2019 PAST SURGICAL HISTORY OF L. knee PAST SURGICAL HISTORY OF kidney stones PAST SURGICAL HISTORY OF Right 2007 Knee PAST SURGICAL HISTORY OF NERVE STIMULATOR AND REMOVAL MELISSA ORTH REMV CATARACT EXTRACAP,INSERT LENS Bilateral Rt 08/2019, Lt 11/2019 STRESS TEST ADENOSINE 05/11/2013 THYROIDECTOMY TOTAL/COMPLETE 2000 TONSILLECTOMY HX 1963 FAMILY HISTORY Problem Relation Age of Onset Diabetes Mother Thyroid Mother Diabetes Father Diabetes Paternal Aunt Social History Tobacco Use Smoking status: Never Passive exposure: Never Smokeless tobacco: Never Vaping Use Vaping Use: Never used Substance Use Topics Alcohol use: Never Drug use: Never levothyroxine (SYNTHROID) 175 mcg tablet, Take 1 tablet by mouth once daily. Mon- Sat and none on Sun. Take on empty stomach. For Thyroid. Per endo: Dr. Marques, Disp: 34 tablet, Rfl: 5, 02/23/2023 at 0530 rosuvastatin (CRESTOR) 20 mg tablet, Take 1 tablet by mouth once daily. (Patient taking differently: Take 20 mg by mouth every morning.), Disp: 90 tablet, Rfl: 1, 02/23/2023 at 0530 clobetasol (TEMOVATE) 0.05 % ointment, Apply to affected area twice daily., Disp: 30 g, Rfl: 1 gabapentin (NEURONTIN) 100 mg capsule, 300 mg by mouth three times/day, Disp: 270 capsule, Rfl: 1, 02/23/2023 at 0530 calcium carbonate (ANTACID CALCIUM ORAL), Take by mouth as need (more content not included)... [facility] CONSULT HNO ID: [id number] Author: Rui Kimbrough DO Service: Endocrinology Author Type: Physician Type: Consults Filed: 02/24/2023 9:01 AM Note Text: INITIAL CONSULT ENDOCRINOLOGY SERVICE DATE: 02/24/2023 SERVICE TIME: 8:05 AM Requesting Provider: Andrea Sandoval DO Opinion/Advice Regarding: Management of Diabetes Mellitus Type 2 hyperglycemia Service: Endocrinology Consult Service Subjective HPI: Patient admitted for surgery, uses u500 inuslin at home. Managed by Dr. Marques Also on farciga 10mg daily and trulicity 3mg once weekly. Most recent a1c 7.6% per anesthesiology note. Outpatient regimen:u500 pens 185 with breakfast, 175 with lunch and dinner COMPLETE REVIEW OF SYSTEMS: WEIGHT: Stable EYES: Normal HYDRATION: No polydypsia or thirst CARDIAC: No chest pain, dyspnea, palpitations or edema RESPIRATORY: Negative for cough, wheezing or shortness of breath GI: no nausea, fullness, vomiting, diarrhea, constipation, GI bleeding or heartburn : no dysuria, frequency, hesitancy, hematuria, polyuria or nocturia SKIN: normal MUSCULOSKELETAL: No joint pain, stiffness, swelling, cramping or weakness NERVOUS SYSTEM: no numbness, paresthesias, weakness, cramping, burning or dizziness ALL OTHER SYSTEMS: normal Objective PHYSICAL EXAM: General: Well appearing, alert, in no acute distress, well-hydrated, well nourished. Skin: skin color, texture, turgor normal, no rashes or lesions. Head: normocephalic, no masses, lesions, tenderness or abnormalities. Eyes: Anicteric sclera. Pupils are equally round and reactive to light. Extraocular movements are intact. Oropharynx: Lips, mucosa, and tongue normal, teeth and gums normal, oropharynx normal Neck: Supple, no adenopathy; thyroid symmetric, normal size, no bruits Heart: RRR without murmur, gallop, or rubs. No ectopy Abdomen: soft, non-tender, positive bowel sounds Extremities: no edema, no calluses or ulcers present. Peripheral Pulses: posterior tibial and doralis pedis pulses 2+ and symmetrical Laboratory Results: Hemoglobin (g/dL) Date Value 02/24/2023 11.6 03/19/2021 14.0 Hematocrit (%) Date Value 02/24/2023 36.1 03/19/2021 42.8 WBC (k/uL) Date Value 02/24/2023 15.42 03/19/2021 10.84 Platelet Count (k/uL) Date Value 02/24/2023 255 03/19/2021 319 Potassium (mmol/L) Date Value 02/24/2023 5.2 04/05/2021 3.8 K (mmol/L) Date Value 02/22/2022 4.1 Sodium (mmol/L) Date Value 02/24/2023 137 04/05/2021 137 NA (mmol/L) Date Value 02/22/2022 138 Creatinine Date Value 02/24/2023 0.97 mg/dL 02/22/2022 1.10 MG/DL 04/05/2021 0.94 mg/dL BUN Date Value 02/24/2023 16 mg/dL 02/22/2022 15 MG/DL 04/05/2021 16 mg/dL Glucose Date Value 02/24/2023 366 mg/dL 02/22/2022 115 MG/DL 04/05/2021 277 mg/dL INR (no units) Date Value 02/16/2023 1.0 TSH Date Value 06/28/2022 0.335 mIU/L 02/22/2022 0.41 IU/ml 06/08/2021 1.080 uU/mL NT Pro BNP (pg/mL) Date Value 02/16/2023 80 Lipids: Total Cholesterol, Nonfasting (mg/dL) Date Value 03/19/2021 136 Cholesterol (mg/dL) Date Value 02/22/2022 114 HDL Cholesterol (no units) Date Value 02/22/2022 40 HDL Cholesterol, Nonfasting (mg/dL) Date Value 03/19/2021 54 LDL Cholesterol (no units) Date Value 02/22/2022 48 LDL Cholesterol, Nonfasting (mg/dL) Date Value 03/19/2021 56 Triglyceride (no units) Date Value 02/22/2022 131 Triglycerides, Nonfasting (mg/dL) Date Value 03/19/2021 128 Albumin (g/dL) Date Value 09/20/2022 3.9 Bilirubin, Total (mg/dL) Date Value 09/20/2022 0.4 Alkaline Phosphatase (U/L) Date Value 09/20/2022 86 AST (U/L) Date Value 09/20/2022 24 ALT (U/L) Date Value 09/20/2022 12 Protein, Total (g/dL) Date Value 09/20/2022 6.8 No results found for: LVEF Hemoglobin A1C Date Value 11/07/2022 8.7 % 02/22/2022 8.1 % 10/05/2021 9.6 02/25/2020 9.6 09/03/2018 8.8 % 05/18/2017 10.3 12/08/2016 8.9(ext) 08/18/2016 12.3 % Hemoglobin A1c (%) Date Value 12/17/2014 11.7 09/15/2014 11.7 03/14/2014 12.0 HGB A1C (no units) Date Value 12/19/2019 9.1 09/03/2019 9.1 12/07/2018 8.0 04/27/2018 9.6 Most recent labs and imaging results. Assessment/Plan Principal Problem: Spinal stenosis, lumbar region, with neurogenic claudication POA: Yes Assessment AND Plan: Per primary team Diabetes Mellitus: Patient uses u500 at home for management, as well as farxiga and trulicity. Farxiga resumed this AM. BS are relatively stable given that patient has not had u500, and may be able to be managed as inpatient on MDI given diet control as well Will adjust regimen accordingly and follow trend Patient will need to continue to follow as outpatient with endocrinology Resolved Problems: * No resolved hospital problems. * Physician making all medical decisions/reviewing case and placing orders SIGNATURE: Magalis Castro APRN.CHAZ BOYCE (more content not included)... [facility] THERAPY NTon 02-24-2023 THERAPY NT HNO ID: [id number] Author: Stevenson Lopez, PT Service: Physical Therapy Author Type: Physical Therapist Type: Therapy (PT/OT/Speech/Resp) Filed: 02/24/2023 11:00 AM Note Text: Physical Therapy Evaluation SERVICE DATE: 02/24/2023 SERVICE TIME: 0923 to 0950 ROOM: [place] [address] Recommended Discharge Disposition: Home Recommended Discharge Disposition Comments: with HEP pending progress Anticipated Discharge Needs: Supervision at Home Supervision at Home due to: Decreased safety awareness PT 6 Clicks Score: 13 Precautions/Activity Restrictions: Spine, Lines/Tubes/Drains, Fall Risk, Brace Precaution/Activity Restriction Comments: large FABRICE drain; LSO Current Hospital Course: Elective surgery Reason for Hospital Admission: s/p TLIF L5-S1, PLIF L4-S1, decompression L4-S1, BMA by Dr. Sandoval Relevant Past Medical History: HTN, DM, GERD Pt tolerated PT evaluation fairly. Pt presents with limitations in all mobility and required physical assistance and cuing for safety. They would be safe to return home at this time. They would benefit from further therapeutic services in order to decrease their impairments and increase their function Pt was educated on spinal precautions, log roll technique, and spine HEP. Pt was also educated on proper pain management strategies including rest and ice. Response to Therapy Interventions: Good Participation in Activities Continued Skilled Needs Due to: Functional Mobility/Skill Impairments, Safety Concerns Physical Therapy Problem List: Pain, Safety Deficits, Decreased Activity Tolerance, Functional Mobility Impairment, Balance Impaired Treatment Interventions: Education, Functional Mobility Training, Balance Training, Neuromuscular Re-education Plan for Next Visit: Bed Mobility, Fall Prevention, Gait Training, Stair Training, Sit to Stand Transfers, Sitting Balance, Standing Tolerance, Standing Balance Home Environment Patient Lives With: Spouse, Other: See Comment Comments: recently diagnosed with Cancer Assistance Available: 24-Hour Entry To Home: Stairs, With Rail Number Of Stairs Into Home: 3 Number Of Stairs To Bed/Bath: 0 Tub/Shower Type: tub/shower in main bath; has half bath she will used raised Laundry: FFSU - stackable in kitchen Equipment Owned: Grab Bars- Shower, Hand Held Shower, Commode- Raised, Cane, Rollator, Physician Practice Administrator, Long Handled Shoe Horn Prior Functional Level: Within Functional Limits Assistance Required With: Ambulation Prior Functional Level Comments: pt reports use of rollator at all times, notes unable to stand for long times - takes seated rest breaks on rollator. Notes poor endurance for 2 years after a fall on her buttocks, denies recent falls. Baseline Cognition: Oriented to self, Oriented to place, Oriented to time, Oriented to situation CURRENT FUNCTIONAL STATUS: Most recent performance Current Functional Mobility Assist Level Additional Information Rolling Supine to Sit Sit to Supine Moderate Assistance, Additional Information log roll; assist with B LE Scooting Sit to Stand Moderate Assistance Stand to Sit Moderate Assistance Bed to Chair Toilet/Commode Gait Minimal Assistance Gait Device: Wheeled Walker Gait Distance (feet): 5 Stairs Curb Step Car Transfer Blank peters indicate activity not attempted General Deviations/Observations : Flexed trunk posture, Non-functional gait speed, Step length decreased, Shuffling Gait Range of Motion: WFL Strength: WFL Vital Signs Pulse: 116 SpO2: 92 % O2 Therapy: Room Air Balance: Static Sitting, Dynamic Sitting, Static Standing, Dynamic Standing Static Sitting Balance: Good Patient able to maintain balance without handhold support, limited postural sway Dynamic Sitting Balance: Good Patient accepts moderate challenge, able to maintain balance while picking up object off floor Static Standing Balance: Fair Patient able to maintain balance with handhold support, may require occasional minimal assistance Dynamic Standing Balance: Fair Patient accepts minimal challenge, able to maintain balance while turning head/trunk JH-HLM: 5: Standing (1 or more minutes) Learning/Educational Needs: Plan of Care Goals for Plan of Care: Patient/Caregiver Goals: Walk, Go Home Goals: Patient will demonstrate understanding of importance of mobility during hospital stay and resolve all functional needs identified. Transfer Supine to/from Sit with: Supervision Transfer Sit to/from Stand with: Supervision Ambulate with: Supervision Distance: 80 Device: Wheeled Walker Ambulate Up and Down Steps with: Supervision Number of Steps: 3 Device: Rail Rehab Potential: Good Patient will be discontinued from Physical Therapy when no further skilled needs are identified in this setting. PLAN: PT Frequency: Once Daily Plan of Care developed with: Patient TREATMENT INTERVENTIONS: Therapy Diagnosis: Unsteadiness on f (more content not included)... [facility] THERAPY NT HNO ID: [id number] Author: Karlee Cevallos, OTR/L Service: Occupational Therapy Author Type: Occupational Therapist Type: Therapy (PT/OT/Speech/Resp) Filed: 02/24/2023 9:03 AM Note Text: Occupational Therapy Evaluation SERVICE DATE: 02/24/2023 SERVICE TIME: 810 to 854 ROOM: [place] [address] Recommended Discharge Disposition: Home Recommended Discharge Disposition Comments: pt presents with decreased endurance, dynamic balance, functional independence and safety. pt feeling drowsy this AM, would benefit from cont OT services OT 6 Clicks Score: 15 Precautions/Activity Restrictions: Spine, Lines/Tubes/Drains, Fall Risk, Brace Precaution/Activity Restriction Comments: large FABRICE drain; LSO Current Hospital Course: Elective surgery Reason for Hospital Admission: s/p TLIF L5-S1, PLIF L4-S1, decompression L4-S1, BMA by Dr. Sandoval Relevant Past Medical History: HTN, DM, GERD Response to Therapy Interventions: Good Participation in Activities Continued Skilled Needs Due to: Safety Concerns, Functional Impairment Occupational Therapy Problem List: Pain, Safety Deficits, Impaired Self Care, Decreased Activity Tolerance Cognition/Communication Deficits Responsiveness: Drowsy Follows Commands: 3-step Commands Treatment Interventions: Education, Self Care/Home Management Plan for Next Visit: Bathing Training, Bed Mobility, Chair/Commode Transfer Training, Dressing Training, Edema Management, Energy Conservation, Sit to Stand Transfers, Standing Balance, Standing Tolerance Home Environment Patient Lives With: Spouse, Other: See Comment Comments: recently diagnosed with Cancer Assistance Available: 24-Hour Entry To Home: Stairs, With Rail Number Of Stairs Into Home: 3 Number Of Stairs To Bed/Bath: 0 Tub/Shower Type: tub/shower in main bath; has half bath she will used raised Laundry: FFSU - stackable in kitchen Equipment Owned: Grab Bars- Shower, Hand Held Shower, Commode- Raised, Cane, Rollator, Physician Practice Administrator, Long Handled Shoe Horn Prior Functional Level: Required Assistance Assistance Required With: Ambulation Prior Functional Level Comments: pt reports use of rollator at all times, notes unable to stand for long times - takes seated rest breaks on rollator. Notes poor endurance for 2 years after a fall on her buttocks, denies recent falls. Baseline Cognition: Oriented to self, Oriented to place, Oriented to time, Oriented to situation Current and/or Former Occupation: Retired - [employer] Highest Level of Education: College/Professional Trade Occupational Factors Life Roles: Family Member, Retired, Parent, Spouse/Significant Other Identified Strengths: Good Support System Identified Barriers: Difficulty with ADLs/IADLs Patient Report: I feel better CURRENT FUNCTIONAL STATUS: Most recent performance Current Activities of Daily Living Assist Level Additional Information Feeding Set Up Grooming Minimal Assistance Bathing Upper Body Minimal Assistance Bathing Lower Body Maximal Assistance Dressing Upper Body Minimal Assistance Dressing Lower Body Maximal Assistance Toileting Maximal Assistance Instrumental Activities of Daily Living Assist Level Additional Information Meal/Beverage Prep Cleaning Laundry Medication Management with Strategies Functional Mobility Assist Level Additional Information Rolling Supine to Sit Minimal Assistance, Additional Information log roll Sit to Supine Scooting Sit to Stand Minimal Assistance Stand to Sit Minimal Assistance Bed to Chair Minimal Assistance, Additional Information Stepping Wheeled Walker pt feeling light headed, keeping eyes closed, upon sitting feeling better Toilet/Commode Shower Functional Mobility Blank peters indicate activity not attempted Range of Motion: WFL Strength: WFL Balance: Dynamic Sitting, Dynamic Standing Dynamic Sitting Balance: Good Patient accepts moderate challenge, able to maintain balance while picking up object off floor Dynamic Standing Balance: Fair Patient accepts minimal challenge, able to maintain balance while turning head/trunk Learning/Educational Needs: Safety, Self Care, Plan of Care, Precautions Goals for Plan of Care: Patient/Caregiver Goals: Participate in meaningful activities Goals: Patient will demonstrate progress with self-care, cognitive and/or coping needs identified to allow safe discharge to home with available support and/or physical assistance. Grooming with: Supervision Upper Body Bathing with: Supervision Upper Body Dressing with: Supervision Lower Body Bathing with: Supervision Lower Body Dressing with: Supervision Toilet Hygiene with: Supervision Chair Transfer with: Supervision Toilet Transfer with: Supervision Rehab Potential: Fair Patient will be discontinued from Occupational Therapy when no further skilled needs are identified in this setting. PLAN: OT Frequency: 6 Times Per Week Plan of Care develo (more content not included)... [facility] ANES POSTPROC EVALon 023 ANES POSTPROC EVAL HNO ID: [id number] Author: Conrad Ha MD Service: Anesthesiology Author Type: Physician Type: Anesthesia Postprocedure Evaluation Filed: 02/23/2023 8:54 PM Note Text: POST ANESTHESIA EVALUATION NOTE : 1955 Procedure Summary Date: 02/23/23 Room / Location: MR OR 05 / MR OR Anesthesia Start: 1441 Anesthesia Stop: 1902 Procedures: ARTHDSIS POST/POSTEROLATERAL TECH W/POST INTERBODY TECH MANDUJANO AND/OR DISCECT SUFF TO PREP INTERSPACE SINGLE INTERSPACE AND SEG LUMBAR FUSION LUMBAR POSTERIOR LEVEL 2 INSERT SPINE FIXATION DEVICE MANDUJANO FACETEC/FORAMOT DRG ARTHRD LUMBAR 1 VRT SGM DECOMPRESSION LAMINECTOMY LUMBAR POSTERIOR LEVEL 1 WITH C ARM DECOMPRESSION LAMINECTOMY 1ST ADD'L LUMBAR SEGMENT BONE MARROW ASPIRATION FOR BONE GRAFTING,SPINE SURGERY ONLY,VIA SEPARATE SKIN OR FASCIAL INCISION AUTOGRAFT FOR SPINE SURGERY ONLY, OBTAINED FROM SAME INCISION ALLOGRAFT FOR SPINE SURGERY MORSELIZED Diagnosis: Other intervertebral disc degeneration, lumbar region Spinal stenosis, lumbar region, with neurogenic claudication Spondylolisthesis of lumbar region Other intervertebral disc displacement, lumbosacral region Spinal stenosis of lumbar region with neurogenic claudication (Other intervertebral disc degeneration, lumbar region [M51.36]) (Spinal stenosis, lumbar region, with neurogenic claudication [M48.062]) (Spondylolisthesis of lumbar region [M43.16]) (Other intervertebral disc displacement, lumbosacral region [M51.27]) (Spinal stenosis of lumbar region with neurogenic claudication [M48.062]) Surgeons: Andrea Sandoval DO Responsible Provider: Conrad Ha MD Anesthesia Type: general ASA Status: 3 Anesthesia Type: general Airway Type: ETT Last Vitals Vitals Value Taken Time BP 135/58 02/23/232044 Temp 36.7 ?C (98.1 ?F) 02/23/232029 Pulse 92 02/23/232049 Resp 20 02/23/232029 SpO2 98 % 02/23/232049 Vitals shown include unvalidated device data. Post Anesthesia Patient Status Patient Evaluation: PACU. PACU/ICU Patient Condition: stable. Anticipated Disposition: inpatient floor planned admission. Neurological Status: sleepy but arousable. Pulmonary Status: breathing comfortably on supplemental oxygen Airway Control: returned to baseline unsupported. Cardiovascular Status: stable. Pain Management: inadequate (Patient with significant pain sedation mismatch. When pain treatedm, patient is somnolemnt and when awak, moaning and crying out. PAtient will be monitored on the floor with SPO2 and ETCO2) with additional pain medication ordered/administered. - multimodal analgesia pain management approach Postoperative Hydration: acceptable. Intraoperative Events: no significant anesthesia events Post Operative Nausea/Vomiting Status: no significant post operative nausea or vomiting Recommendation: further care per PACU/ICU/floor team. Anesthesia Observations No Documentation SIGNATURE: Conrad Ha MD PATIENT NAME: Derrell German DATE: February 23, 2023 TIME: 8:52 PM CSN: [id number] [facility] ANES PRE-OPon 02-23-2023 ANES PRE-OP HNO ID: [id number] Author: Nikolai Carrizales DO Service: ? Author Type: Physician Type: Anesthesia Preprocedure Evaluation Filed: 02/23/2023 1:21 PM Note Text: ANESTHESIOLOGY DAY OF SURGERY NOTE : 1955 Procedure Information Date/Time: 02/23/23 1213 Procedures: ARTHDSIS POST/POSTEROLATERAL TECH W/POST INTERBODY TECH MANDUJANO AND/OR DISCECT SUFF TO PREP INTERSPACE SINGLE INTERSPACE AND SEG LUMBAR FUSION LUMBAR POSTERIOR LEVEL 2 INSERT SPINE FIXATION DEVICE MANDUJANO FACETEC/FORAMOT DRG ARTHRD LUMBAR 1 VRT SGM DECOMPRESSION LAMINECTOMY LUMBAR POSTERIOR LEVEL 1 WITH C ARM DECOMPRESSION LAMINECTOMY 1ST ADD'L LUMBAR SEGMENT BONE MARROW ASPIRATION FOR BONE GRAFTING,SPINE SURGERY ONLY,VIA SEPARATE SKIN OR FASCIAL INCISION AUTOGRAFT FOR SPINE SURGERY ONLY, OBTAINED FROM SAME INCISION ALLOGRAFT FOR SPINE SURGERY MORSELIZED Location: MR OR 05 / MR OR Surgeons: Andrea Sandoval, DO Estimated body mass index is 43.84 kg/m? as calculated from the following: Height as of this encounter: 157.5 cm (5' 2). Weight as of this encounter: 108.7 kg (239 lb 11.2 oz). Most recent hematocrit and potassium results: HCT 39.7 11/07/2022 Potassium 3.5 11/07/2022 Relevant Problems ANESTHESIA (+) NATALIE (obstructive sleep apnea) CARDIO (+) ASHD (arteriosclerotic heart disease) (+) Hypertension, essential ENDO (+) Postsurgical hypothyroidism (+) Type 2 diabetes mellitus with stage 3a chronic kidney disease, with long-term current use of insulin (HCC) GI (+) GERD (gastroesophageal reflux disease) -RENAL (+) Stage 3a chronic kidney disease (HCC) NEURO-PSYCH (+) History of Chapman's palsy PULMONARY (+) Mild intermittent asthma without complication (+) NATALIE (obstructive sleep apnea) I - PHYSICAL EVALUATION AIRWAY Patient intubated: No. Tracheostomy tube not present Mallampati: II. TM distance: >3 FB. Neck ROM: full ROM without neurological symptoms. Mouth opening: adequate. Short neck: no. Thick neck: yes DENTAL Dental findings: teeth intact. II - ANESTHESIA PLAN ASA Score: 3 Anesthetic Plan: general Airway type: ETT NPO Status: adequate Beta Destiney Monitoring Plan Monitoring plan: standard ASA. Post Procedure Analgesic Plan Postoperative analgesic plan: parenteral or oral opioids and multimodal analgesia. Informed Consent Anesthetic risks, benefits, alternatives, personnel and consent discussed: yes. Patient / Responsible Constitution Party agrees to proceed: yes Patient / Surrogate agrees to blood products: Yes Vitals Value Taken Time BP 141/78 02/23/23 1105 Pulse 79 02/23/23 1105 Resp 20 02/23/23 1105 Temp 36.1 ?C (97 ?F) 02/23/23 1105 SpO2 99 % 02/23/23 1105 Facility-Administered Medications as of 02/23/2023 Medication Dose Route Frequency - lidocaine (PF) 10 mg/mL (1 %) 1-2 mg injection (XYLOCAINE) 0.1-0.2 mL INTRADERMAL PRN - lactated ringers iv infusion 5-30 mL/hr INTRAVENOUS CONTINUOUS - NaCl 0.9% iv flush bag 20 mL INTRAVENOUS PRN - ceFAZolin iv piggyback 2 g in D5W (iso-osmotic) 100 mL (ANCEF) 2 g INTRAVENOUS ONCE Outpatient Medications as of 02/23/2023 Medication Sig - rosuvastatin (CRESTOR) 20 mg tablet Take 1 tablet by mouth once daily. (Patient taking differently: Take 20 mg by mouth every morning.) - clobetasol (TEMOVATE) 0.05 % ointment Apply to affected area twice daily. - gabapentin (NEURONTIN) 100 mg capsule 300 mg by mouth three times/day - acetaminophen (TYLENOL) 500 mg tablet Take 500 mg by mouth every 8 hours as needed. - ibuprofen (MOTRIN) 200 mg tablet Take 200 mg by mouth every 6 hours as needed. Last dose 02/07/23 - calcium carbonate (ANTACID CALCIUM ORAL) Take by mouth as needed. Last dose 02/09 - HYDROcodone-acetaminoph en (NORCO) 5-325 mg per tablet Take 1 tablet by mouth every 8 hours as needed for pain. - melatonin 10 mg cap Take 5-10 mg by mouth daily at bedtime. - BIPAP daily at bedtime. - spironolactone (ALDACTONE) 25 mg tablet TAKE 1 TABLET BY MOUTH TWICE DAILY - potassium chloride (K-TAB) 10 mEq tablet Take 2 tablets by mouth twice daily. - famotidine (PEPCID) 20 mg tablet Take 1 tablet by mouth at bedtime as needed. (Patient taking differently: Take 20 mg by mouth twice daily.) - dapagliflozin (FARXIGA) 10 mg tablet Take 10 mg by mouth daily with breakfast. Take 1 tablet daily - TRULICITY 3 mg/0.5 mL pen injector Inject 4.5 mg subcutaneously one time a week. Monday - EPINEPHrine (EPIPEN) 0.3 mg/0.3 mL auto-injector Use auto-injector x 1 for allergic reaction. (Patient taking differently: Inject 0.3 mg intramuscularly as needed. Use auto-injector x 1 for allergic reaction.) - Cholecalciferol, Vitamin D3, 125 mcg (5,000 unit) cap Take 1 capsule by mouth once daily. (Patient taking differently: Take 5,000 Units by mouth every morning. Last dose 02/07/23) - isosorbide mononitrate ER (IMDUR) 30 mg 24 hr tablet Take 60 mg by mouth every morning. - nitroglycerin sublingual (NITROQUICK) 0.4 mg SL (more content not included)... [facility] BRIEF OP NOTon 02-23-2023 BRIEF OP NOT HNO ID: [id number] Author: Andrea Sandoval DO Service: Orthopaedic Surgery Author Type: Physician Type: Brief Op Note Filed: 02/23/2023 6:50 PM Note Text: BRIEF OPERATIVE / PROCEDURE NOTE LOG ID: [id number] SURGERY/PROCEDURE DATE: 02/23/2023 INCISION/PROCEDURE START TIME: 3:37 PM INCISION CLOSE/PROCEDURE END TIME: 6:40 PM SURGEON(S)/PROCEDURALIS T(S) AND SCREW MACHINE OPERATOR SWISS TYPE(S): Surgeon(s) and Role: * Andrea Sandoval DO - Primary Campaign Marketing Specialist (Relief): Susan Castañeda SA SURGERY/PROCEDURE(S): Transforaminal lumbar interbody fusion L5-S1, posterolateral fusion with instrumentation L4-S1, decompression L4-S1, bone marrow aspirate left ilium. ANESTHESIA: General FINDINGS: See dictation ESTIMATED BLOOD LOSS: 50 cc SPECIMENS: None COMPLICATIONS: None DRAINS: VAC drain CLOSURE TECHNIQUE: Primary PRE-OP/PRE-PROCEDURE DIAGNOSIS: Degenerative spinal listhesis L4-5, spinal stenosis L5 4 5 and L5-S1, foraminal stenosis left side L5-S1, degenerative disc disease L5-S1 POST-OP/POST-PROCEDURE DIAGNOSIS: Same as Preop SIGNATURE: Andrea Sandoval DO PATIENT NAME: Derrell German DATE: February 23, 2023 TIME: 6:49 PM [facility] NURSING PROGon 02-23-2023 NURSING PROG HNO ID: [id number] Author: Mirian Mix RN Service: ? Author Type: Registered Nurse Type: Nursing Progress Note Filed: 02/23/2023 6:56 PM Note Text: Other: When operating room team rolling patient back to inpatient bed, two bluish/reddened areas noted to both sides of the lower abdomen. Also some reddish area noted on right hand of patent. Dr Sandoval made aware. Normal [facility] OPERATIVE NOon 02-23-2023 OPERATIVE NO HNO ID: [id number] Author: Andrea Sandoval DO Service: Orthopaedic Surgery Author Type: Physician Type: Operative Report Filed: 02/25/2023 10:24 AM Note Text: [facility] - Operative Notes DERRELL GERMAN : 1955 AGE: 67 SEX: F [facility]: [id number] [facility]: LOCATION: [address] [place] [address] ATTENDING PHYSICIAN: DATE OF SERVICE: 02/23/2023 PREOPERATIVE DIAGNOSES: 1. Degenerative spondylolisthesis at L4-5. 2. Degenerative disk disease at L5-S1. 3. Spinal stenosis at L4-5, as well as L5-S1, and foraminal stenosis on the left side at L5-S1. POSTOPERATIVE DIAGNOSES: 1. Degenerative spondylolisthesis at L4-5. 2. Degenerative disk disease at L5-S1. 3. Spinal stenosis at L4-5, as well as L5-S1, and foraminal stenosis on the left side at L5-S1. OPERATION: 1. Left-sided transforaminal lumbar interbody fusion at L5-S1 from a left-sided approach. 2. Posterolateral fusion with instrumentation, L4 to S1. 3. Decompression from L4 to S1. 4. There was a left-sided bone marrow aspirate, approximately 10 mL. 5. Bone morphogenetic proteins, demineralized bone matrix and local bone graft, as well as cancellous bone chips were placed in the posterolateral gutters for fusion purposes, as well as the L5-S1 disk space. 6. Expandable titanium X-Pac cage from [employer] that was used for interbody graft at L5-S1. SURGEON: Andrea Sandoval DO SCREW MACHINE OPERATOR SWISS TYPE: Lexy and finishing up with Susan Castañeda SA. ANESTHESIA: General endotracheal. ANESTHESIOLOGIST: Rahul Villalobos DO FLUIDS: Per Anesthesia. ESTIMATED BLOOD LOSS: 150 mL. COMPLICATIONS: There were no complications; no changes in neuromonitoring. DRAINS: A Hemovac drain exited out of a separate incision on the right side of the patient. DISPOSITION: Patient to PACU; will be admitted to the floor for postoperative care. HISTORY: Patient is a 67-year-old female who presented to my office a number of months ago, this past winter, with complaints of having symptoms of neurogenic claudication and difficulty ambulating. Now she was set up to have a spinal cord stimulator and I think she had infected spine, so they removed her stimulator. She was sent to my office from [place] and I saw this patient. Now, working her up, it appeared that she had severe stenosis at the L4-5 level and an anterior slip. I explained to her that trying to do a revision spinal cord stimulator, I did not think, would be in her best interests and that she did have a pathology that was consistent with her symptoms. Now patient had uncontrolled diabetes and was morbidly obese, BMI was 44. Patient's subcutaneous tissue depth was about 10 mL on dissection. Unfortunately for this patient, her A1c was out of control and we halted doing anything until this was more controlled. She got her A1c down to a 7.1 recently, so she wanted to proceed forward. The risks, benefits and alternative methods of treatment were discussed. She understood, signed informed consent and wanted to proceed. PROCEDURE: Patient was medication in the preoperative holding area by myself with the anesthesia team. The patient had her lower lumbar spine identified and marked. Consent was signed and H and P was updated. She was brought back by the anesthesia team and underwent successful endotracheal anesthesia. The patient was taken from a supine lie to prone position on the Sudeep bed. She was positioned accordingly. She was prepped and draped in the normal sterile fashion with the lower lumbar spine free for operative intervention. At this time, a formal timeout was performed, including the appropriate patient and procedure being contemplated. Once this was deemed correct, I took a spinal needle and placed in the right paraspinal musculature and took a lateral fluoroscopic image to confirm we were at the appropriate level. Once this was deemed correct, I injected 0.25% Marcaine with epinephrine into the skin, subcutaneous tissue and lumbar musculature. I made a midline incision and dissected down using Bovie electrocautery. Now I dissected down to the fascia, which was about 10 cm deep. I then exposed laterally down the laminae and out to the pars. I exposed L4, L5 and S1. I marked my L4-5 interval; there was a slight stepoff due to listhesis. I took AP and lateral fluoroscopic imaging and per [facility] protocol, we confirmed with Dr. Fox we were at the appropriate levels. I removed my Leena that was marking at the L4-5 level, took a Leksell rongeur and removed my supraspinous and interspinous ligament with the Leksell. At this point, I extended my exposure out to the transverse processes of L4, L5 and S1. I did this bilaterally, ensuring I did not disrupt the L3-4 facet joint in my exposure of the transverse process of L4, but I did take down the L4-5 and L5-S1 facet joints bilateral (more content not included)... [facility] XR FLUOROSCOPYon 02-23-2023 XR FLUOROSCOPY * * *Final Report* * * DATE OF EXAM: Feb 23 2023 7:36PM [id number] - XR FLUOROSCOPY / PROCEDURE REASON: SPINAL STENOSIS * * * * Physician Interpretation * * * * XR FLUOROSCOPY Ordering Physician: ANDREA SANDOVAL Flouroscopy with OR Surgical Navigation assist Clinical Statement: Spinal stenosis FINDINGS: 1 minute 8 seconds fluoroscopy time utilized. A total of 197 images were obtained during lumbar spinal fusion procedure IMPRESSION: Documentation of flouroscopy with OR Surgical Navigation assist utilized during spinal surgery. Please see operative report for complete details. Loss Prevention Analyst: PSCB Transcribe Date/Time: Feb 24 2023 6:15A Dictated by : CLAUDIO FOX MD This examination was interpreted and the report reviewed and electronically signed by: CLAUDIO FOX MD on Feb 24 2023 6:16AM EST [id number] [facility] XR LUMBAR 2V AP/LATon 2022 XR LUMBAR 2V AP/LAT * * *Final Report* * * DATE OF EXAM: Feb 23 2023 3:53PM [id number] - XR LUMBAR 2V AP/LAT / PROCEDURE REASON: Spinal stenosis, lumbar * * * * Physician Interpretation * * * * XR LUMBAR 2V AP/LAT Ordering Physician: ANDREA SANDOVAL INTRAOPERATIVE RADIOGRAPHS OF THE LUMBAR SPINE FOR LOCALIZATION Clinical Statement: Spinal stenosis, lumbar FINDINGS: The tip of the surgical instrument is at the interspace between the L4 and L5 spinous processes. IMPRESSION: The tip of the surgical instrument is at the interspace between the L4 and L5 spinous processes. Findings were discussed with the spine surgeon at the time of the examination. Loss Prevention Analyst: ALIS Transcribe Date/Time: Feb 23 2023 3:55P Dictated by : CLAUDIO FOX MD This examination was interpreted and the report reviewed and electronically signed by: CLAUDIO FOX MD on Feb 23 2023 3:55PM EST [id number] [facility] Bacteria Ur Culton Bacteria identified Cx Nom (U) ORGANISM ID: 1 50,000-<100,000 CFU/ml Lactobacillus species Not viable for susceptibility. Normal [facility] Comment on above: Performed By: #### 5 [id number], [id number] #### [facility] CLIA [id number] Laboratory - Microbiology an d Antimicrobial susceptibilityon 02-16-2023 S. aureus and MRSA panel MASHA+probe (Nose) Negative Negative [facility] NT PRO BNPon 02-16-2023 Natriuretic peptide.B prohormone N-Terminal [Mass/Vol] 80 pg/mL <125 pg/mL [facility] NT-proBNP SerPl-ncon 02-16 Natriuretic peptide.B prohormone N-Terminal [Mass/Vol] 80 pg/mL Normal <125 [facility] Comment on above: Order Comment: Speci men Type: BLOOD SPECIMENOrdering Facility: [facility] Address: [address] [place], [place] [address] Result Comment: NT-p roBNP results of less than 300 pg/mL likely rules out acute congestive heart failure with 99% predictive value. NOTE: These cutoff points are suggested for ACUTE CHF DIAGNOSIS only Less than 50 years Greater than 450 pg/mL 50 - 75 years Greater than 900 pg/mL Greater than 75 years Greater than 1800 pg/mL NOTE NEW NORMAL RANGE Performed By: #### 3 3762-6 ####[facility] LABORATORYCLIA [id number] [address] PT panel Coag (PPP)on 2022 INR Coag (PPP) [Relative time] 1.0 {INR} Normal 0.9-1.3 [facility] Comment on above: Order Comment: Oleg najera Type: BLOOD SPECIMENOrdering Facility: [facility] Address: [place] [address] Result Comment: Geri min K Antagonist (VKA) Therapeutic Range: INR 2 to 3 (Target INR of 2.5) Note: For patients treated with VKA drugs, such as warfarin, the [place] [employer] 2012 Guideline recommends a therapeutic INR range of 2 to 3 (target INR of 2.5). This recommendation includes high-risk patients with antiphospholipid syndrome with previous arterial or venous thromboembolism, current-generation mechanical or bioprosthetic aortic heart valve replacement. Note: Patients with mechanical aortic valve replacement and additional risk factors for thromboembolic events (atrial fibrillation, previous thromboembolism, LV dysfunction, hypercoagulable conditions) or an older generation mechanical AVR (i.e., ball in-Cage) or any mechanical MVR should have a INR therapeutic range of 2.5 to 3.5 (target INR of 3). Lui GH, et al. Chest 2012, 141:7S-47S Regine RA et al. [facility] 2017, 70: 252-289 Performed By: #### 3 4528-0 ####[facility] LABORATORYCLIA [id number] [place] [address] [place] PT Coag (PPP) [Time] 10.6 s Normal 9.7-13.0 [facility] Comment on above: Order Comment: Oleg najera Type: BLOOD SPECIMENOrdering Facility: [facility] Address: [address] [place] [address] Performed By: #### 3 4528-0 ####[facility] LABORATORYCLIA [id number] [address] [place] INR Coag (PPP) [Relative time] 1.0 {INR} 0.9 - 1.3 [facility] PT Coag (PPP) [Time] 10.6 s 9.7 - 1 3.0 sec [facility] STAPH AUREUS PCRon 3 S. aureus and MRSA panel MASHA+probe (Nose) Normal Negative [facility] Comment on above: Order Comment: Oleg najera Type: SWAB OF INTERNAL NOSEOrdering Facility: [facility] Address: [address] [address] Result Comment: Nega tive for Staphylococcus aureus by PCR. Negative for MRSA by PCR Performed By: #### S APCR ####[facility] LABORATORYCLIA [id number] [address] TYPE AND SCREEN,30 DAYon ABO A Normal [facility] Comment on above: Order Comment: Speci men Type: BLOOD SPECIMENOrdering Facility: [facility] Address: [address] [place] [address] Performed By: #### T SCR30 ####[facility] BLOOD BANKCLIA [id number] [address] HISTORICAL AB SCR STATUS Negative [facility] Comment on above: Order Comment: Speci men Type: BLOOD SPECIMENOrdering Facility: [facility] Address: [address] [place] [address] Performed By: #### T SCR30 ####[facility] BLOOD BANKCLIA [id number] [address] Rh Nom (Bld) Positive [facility] Comment on above: Order Comment: Speci men Type: BLOOD SPECIMENOrdering Facility: [facility] Address: [address] [place] [address] Performed By: #### T SCR30 ####[facility] BLOOD BANKCLIA [id number] [address] ABO A [facility] HIstorical Ab Scr Status Negative [facility] Rh Nom (Bld) Positive [facility] Absolute lymphocyte countOrd ered By: Dr. Marques on 02-02-2023 Lymphocytes Auto (Unsp spec) [#/Vol] 2.15 10*3/uL 0.83-4.51 [facility] Basophil percentageOrdered B y: Dr. Marques on 02-02-2023 Basophils/100 WBC (Bld) 0.5 % 0-1 [facility] Bilirubin [Mass/Vol] 0.40 mg/dL 0.20-1.00 [facility] Comment on above: For patients on eltr ombopag therapy, use of Dimension Tutor Key TBIL is not recommended. Chloride [Moles/Vol] 104 mmol/L 98-107 [facility] Cholesterol [Mass/Vol] 131 mg/dL <200 [facility] Comment on above: <200 mg/dL Desirable 200-240 mg/dL Borderline >240 mg/dL High Risk Eosinophils/100 WBC (Bld) 0.8 % 0-5 [facility] Glucose [Mass/Vol] 96 mg/dL 74-106 [facility] Neutrophils (Bld) [#/Vol] 7.4 10*3/uL 2.0-7.7 [facility] Neutrophils/100 WBC (Bld) 70.4 % 47-70 [facility] Potassium [Moles/Vol] 3.9 mmol/L 3.5-5.1 [facility] Protein [Mass/Vol] 7.5 g/dL 6.4-8.2 [facility] Sodium [Moles/Vol] 139 mmol/L 136-145 [facility] Triglyceride [Mass/Vol] 126 mg/dL <[address] [facility] Comment on above: The drugs N-Acetylcy steine and Metamizole may falsely depress this assay.Serum Triglycerides Reference Interval Normal <150 mg/dL Borderline high 150 - 199 mg/dL High 200 - 499 mg/dL Very High > or = 500 mg/dL WBC (Bld) [#/Vol] 10.5 10*3/uL 4.4-11.0 [facility] Blood erythrocytes count (nu mber/volume)Ordered By: Dr. Marques on 02-02-2023 RBC (Bld) [#/Vol] 4.77 10*6/uL 4.2-5.4 [facility] Blood hemoglobin measurement (mass/volume)Ordered By: Dr. Marques on 02-02-2023 Hemoglobin (Bld) [Mass/Vol] 13.1 g/dL 12.0-15.0 [facility] Blood lymphocytes/100 leukoc ytesOrdered By: Dr. Marques on 02-02-2023 Lymphocytes/100 WBC (Bld) 20.4 % 19-41 [facility] Blood monocytes/100 leukocyt esOrdered By: Dr. Marques on 02-02-2023 Monocytes/100 WBC (Bld) 7.3 % 0-10 [facility] Blood platelet mean volumeOr dered By: Dr. Marques on 02-02-2023 Platelet mean volume (Bld) [Entitic vol] 9.2 fL 6.2-12.0 [facility] Determination of erythrocyte mean corpuscular volume (MCV)Ordered By: Dr. Marques on 02-02-2023 MCV (RBC) [Entitic vol] 88.9 fL 81-99 [facility] Hematocrit Auto (Bld) [Volum e fraction]Ordered By: Dr. Marques on 02-02-2023 Hematocrit (Bld) [Volume fraction] 42.4 % 37-47 [facility] Laboratory - Chemistry and C hemistry - challengeOrdered By: Dr. Marques on 02-02-2023 ALP [Catalytic activity/Vol] 107 U/L 45-117 [facility] ALT [Catalytic activity/Vol] 21 U/L 13-56 [facility] CO2 [Moles/Vol] 26.0 mmol/L 21.0-32.0 [facility] Globulin (S) [Mass/Vol] 4.0 g/dL 2.2-4.[address] [facility] Urea nitrogen/Creatinine [Mass ratio] 11.9 mg/mg 10-20 [facility] Laboratory - Hematology and Cell countsOrdered By: Dr. Marques on 02-02-2023 Erythrocyte distribution width (RBC) [Entitic vol] 44.3 fL 35.1-43.9 [facility] Erythrocyte distribution width (RBC) [Ratio] 13.6 % 11.6-14.6 [facility] Immature granulocytes/100 WBC (Bld) 0.600 % 0.0-0.9 [facility] Comment on above: IG% - Immature Granu locytes (promyelocytes, myelocytes and metamyelocytes) > 1% indicates that a LEFT SHIFT is Present. MCH (RBC) [Entitic mass] 27.5 pg 27.0-32.0 [facility] Nucleated RBC/100 WBC (Bld) [Ratio] 0 % 0-5 [facility] MCHC Auto (RBC) [Mass/Vol]Or dered By: Dr. Marques on 02-02-2023 MCHC (RBC) [Mass/Vol] 30.9 g/dL 32-36 [facility] No Panel InformationOrdered By: Dr. Marques on 02-02-2023 Estimated GFR (MDRD) Amer 64 mL/min >60 [facility] Comment on above: GFR Calc Estimated GFR (MDRD) Non-Af Amer 53 mL/min >60 [facility] Comment on above: Non- GFR Calc Thyroid Stimulating Hormone (TSH) 0.02 uIU/mL 0.358-3.74 [facility] Urine Microalbumin/Creatinine Ratio 24.4 mg/g CRE <30 [facility] Platelets bldOrdered By: Dr. Marques on 02-02-2023 Platelets (Bld) [#/Vol] 292 10*3/uL 150-450 [facility] Serum or plasma albumin christi urement (mass/volume)Ordered By: Dr. Marques on 02-02-2023 Albumin [Mass/Vol] 3.5 g/dL 3.2-5.0 [facility] Serum or plasma albumin/glob ulin mass ratioOrdered By: Dr. Marques on 02-02-2023 Albumin/Globulin [Mass ratio] 0.9 {ratio} 0.9-2.4 [facility] Serum or plasma calcium christi urement (mass/volume)Ordered By: Dr. Marques on 02-02-2023 Calcium [Mass/Vol] 8.5 mg/dL 8.5-10.1 [facility] Serum or plasma cholesterol in HDL measurement (mass/volume)Ordered By: Dr. Marques on 02-02-2023 Cholesterol in HDL [Mass/Vol] 46 mg/dL >40 [facility] Comment on above: The drugs N-Acetylcy steine and Metamizole may falsely depress this assay. Reference Range HDL <40 mg/dL Low HDL Cholesterol HDL >or= 60 mg/dL High HDL Cholesterol Serum or plasma cholesterol in VLDL measurement (mass/volume)Ordered By: Dr. Marques on 02-02-2023 Cholesterol in VLDL [Mass/Vol] 25 mg/dL 5-40 [facility] Serum or plasma creatinine m easurement (mass/volume)Ordered By: Dr. Marques on 02-02-2023 Creatinine [Mass/Vol] 1.09 mg/dL 0.55-1.02 [facility] Comment on above: The validity of the calculated GFR & GFRAA in patients over 70 years has not been determined. Clinical correlation is essential. Serum or plasma low density lipoprotein (LDL) cholesterol measurement (mass/volume)Ordered By: Dr. Marques on 02-02-2023 Cholesterol in LDL [Mass/Vol] 60 mg/dL 0-130 [facility] Serum or plasma urea nitroge n measurement (mass/volume)Ordered By: Dr. Marques on 02-02-2023 Urea nitrogen [Mass/Vol] 13 mg/dL 7-18 [facility] Thin prep Papanicolaou smear with manual screeningOrdered By: Dr. Marques on 02-02-2023 Thin prep Papanicolaou smear with manual screening 22 U/L 15-37 [facility] Thin prep Papanicolaou smear with manual screening 9 5-15 [facility] Thin prep Papanicolaou smear with manual screening 20.9 mg/L NO RANGE EST. [facility] Urine creatinine measurement (mass/volume)Ordered By: Dr. Marques on 02-02-2023 Creatinine (U) [Mass/Vol] 85.60 mg/dL NO RANGE EST. [facility] Whole blood hemoglobin A1c/t otal hemoglobin ratio (mass fraction)Ordered By: Dr. Marques on 02-02-2023 HbA1c (Bld) [Mass fraction] 7.6 % 3.8-5.6 [facility] Comment on above: Normal < 5.7 % Predi abetic 5.7 - 6.4 % Diabetic >or= 6.5 % Please note range changes. Bacteria Ur Culton 3 Bacteria identified Cx Nom (U) CULTURE, URINE: <10,000 CFU/ml Normal Urogenital Bridgett Normal [facility] Comment on above: Performed By: #### 6 30-4 ####[facility] LABORATORYCLIA [id number] [place] [address] [place] Basic metabolic 2000 panelon 11-07-2022 Anion gap [Moles/Vol] 9 mmol/L Normal 5-16 [facility] Comment on above: Order Comment: Speci men Type: BLOOD SPECIMEN [facility] Address: [address] [place] [address] Performed By: #### 2 4321-2, 6-4, 26309-6 #### [facility] CLIA [id number] [address] [place] [address] [place] #### 29400-0 #### [facility] CLIA [id number] [address] [place], [place] [address] [place] Calcium [Mass/Vol] 9.5 mg/dL Normal 8.5-10.5 [facility] Comment on above: Order Comment: Speci men Type: BLOOD SPECIMEN [facility] Address: [address] [place], [place] Performed By: #### 2 4321-2, 2275-12, #### [facility] CLIA [id number] [address] [place] [address] [place] #### 45301-5 #### [facility] CLIA [id number] [address] [place] [address] [place] Chloride [Moles/Vol] 102 mmol/L Normal 98-107 [facility] Comment on above: Order Comment: Speci men Type: BLOOD SPECIMEN [facility] Address: [address] [place], [place] Performed By: #### 2 4321-2, 2275-12, 02368-2 #### [facility] CLIA [id number] [address] [place], [place] [address] [place] #### 49616-6 #### [facility] CLIA [id number] [address] [place] [address] [place] CO2 [Moles/Vol] 28 mmol/L Normal 21-32 [facility] Comment on above: Order Comment: Speci men Type: BLOOD SPECIMEN [facility] Address: [address] [place], [place] Performed By: #### 2 4321-2, 2275-, 69407-9 #### [facility] CLIA [id number] [address] [place] [address] [place] #### 99475-3 #### [facility] CLIA [id number] [address] [place] [address] [place] Creatinine [Mass/Vol] 0.92 mg/dL Normal 0.51-0.95 [facility] Comment on above: Order Comment: Speci men Type: BLOOD SPECIMEN [facility] Address: [address] [address] Result Comment: Sade ents receiving either N-Acetylcysteine (NAC) or Metamizole prior to venipuncture, may have falsely depressed results. Performed By: #### 2 4321-2, 2276-4, 60599-9 #### [facility] CLIA [id number] [address] [place] [address] [place] [facility] #### 42285-6 #### [facility] CLIA [id number] [address] [place] [address] ESTIMATED GLOMERULAR FILTRATION RATE 68 mL/min/1.73m??? Normal >=60 [facility] Comment on above: Order Comment: Jessii men Type: BLOOD SPECIMEN [facility] Address: [address] [place] [address] Result Comment: Poornima mated Glomerular Filtration Rate (eGFR) is calculated using the 2020 CKD-EPI creatinine equation. This equation utilizes serum creatinine, sex, and age as parameters. The creatinine assay has traceable calibration to isotope dilution-mass spectrometry. Refer to KDIGO guidelines for clinical interpretation. In patients with unstable renal function, e.g. those with acute kidney injury, the eGFR may not accurately reflect actual GFR. Performed By: #### 2 4321-2, 2276-4, 80317-5 #### [facility] CLIA [id number] [address] [place] [address] [place] #### 81241-2 #### [facility] CLIA [id number] [address] [place] [address] [place] Glucose [Mass/Vol] 196 mg/dL High 70-100 [facility] Comment on above: Order Comment: Oleg najera Type: BLOOD SPECIMEN [facility] Address: [address] [id number] Result Comment: The [place] [employer] (ADA) provides guidance for cutoff values for fasting glucose and random glucose. The ADA defines fasting as no caloric intake for at least 8 hours. Fasting plasma glucose results between 100 to 125 mg/dL indicate increased risk for diabetes (prediabetes). Fasting plasma glucose results greater than or equal to 126 mg/dL meet the criteria for diagnosis of diabetes. In the absence of unequivocal hyperglycemia, results should be confirmed by repeat testing. In a patient with classic symptoms of hyperglycemia or hyperglycemic crisis, random plasma glucose results greater than or equal to 200 mg/dL meet the criteria for diagnosis of diabetes. Reference: Standards of Medical Care in Diabetes 2016, [place] [employer]. Diabetes Care. 2016.39(Suppl 1). Results may be falsely elevated after the administration of Sulfapyridine. Results may be falsely depressed after the administration of Sulfasalazine. Performed By: #### 2 4321-2, 2276-4, 93988-2 #### [facility] CLIA [id number] [address] [place] [address] [place] #### 22005-0 #### [facility] CLIA [id number] [address] [place] [address] [place] Potassium [Moles/Vol] 3.5 mmol/L Normal 3.5-5.1 [facility] Comment on above: Order Comment: Oleg najera Type: BLOOD SPECIMEN [facility] Address: [address] [place] [address] Performed By: #### 2 4321-2, 2276-4, 77095-6 #### [facility] CLIA [id number] [address] [place] [address] [place] #### 82509-2 #### [facility] CLIA [id number] [address] [place] [address] [place] Sodium [Moles/Vol] 139 mmol/L Normal 136-145 [facility] Comment on above: Order Comment: Speci men Type: BLOOD SPECIMEN [facility] Address: [address] [address] Performed By: #### 2 4321-2, 2276-4, 53352-2 #### [facility] CLIA [id number] [address] [place] [address] [place] #### 17472-1 #### [facility] CLIA [id number] [address] [place] [address] [place] Urea nitrogen [Mass/Vol] 15 mg/dL Normal 7-26 [facility] Comment on above: Order Comment: Speci men Type: BLOOD SPECIMEN [facility] Address: [address] [address] Performed By: #### 2 4321-2, 2276-4, 37917-3 #### [facility] CLIA [id number] [address] [place] [address] [place] #### 88696-7 #### [facility] CLIA [id number] [address] [place] [address] [place] Anion gap [Moles/Vol] 9 mmol/L 5 - 16 mmol/L [facility] Calcium [Mass/Vol] 9.5 mg/dL 8.5 - 10. 5 mg/dL [facility] Chloride [Moles/Vol] 102 mmol/L 98 - 10 7 mmol/L [facility] CO2 [Moles/Vol] 28 mmol/L 21 - 32 mmol/L [facility] Creatinine [Mass/Vol] 0.92 mg/dL 0.51 - 0.95 mg/dL [facility] Estimated Glomerular Filtration Rate 68 mL/min/1.73m >=60 mL/min/1.73m [facility] Glucose [Mass/Vol] 196 mg/dL High 70 - 100 mg/dL [facility] Potassium [Moles/Vol] 3.5 mmol/L 3.5 - 5.1 mmol/L [facility] Sodium [Moles/Vol] 139 mmol/L 136 - 145 mmol/L [facility] Urea nitrogen [Mass/Vol] 15 mg/dL 7 - 26 mg/d L [facility] CBC W Auto Differential pane l (Bld)on 11-07-2022 Basophils (Bld) [#/Vol] 0.04 10*3/uL Normal <0.11 [facility] Comment on above: Order Comment: Speci men Type: BLOOD SPECIMEN [facility] Address: [address] [address] Performed By: #### 5 7021-8, 91269-9 #### [facility] CLIA [id number] [address] [place] [address] [place] Basophils/100 WBC (Bld) 0.4 % Normal [facility] Comment on above: Order Comment: Speci men Type: BLOOD SPECIMEN [facility] Address: [address] [address] Performed By: #### 5 7021-8, 75558-0 #### [facility] CLIA [id number] [address] [place] [address] [place] Differential cell count method Nom (Bld) Auto Normal [facility] Comment on above: Order Comment: Speci men Type: BLOOD SPECIMEN [facility] Address: [address] [address] Performed By: #### 5 7021-8, 80440-7 #### [facility] CLIA [id number] [address] [place] [address] [place] Eosinophils (Bld) [#/Vol] 0.64 10*3/uL High <0.46 [facility] Comment on above: Order Comment: Speci men Type: BLOOD SPECIMEN [facility] Address: [address] [address] Performed By: #### 5 7021-8, 33060-6 #### [facility] CLIA [id number] [address] [place] [address] [place] Eosinophils/100 WBC (Bld) 5.9 % Normal [facility] Comment on above: Order Comment: Speci men Type: BLOOD SPECIMEN [facility] Address: [address] [place] [address] Performed By: #### 5 7021-8, 27999-3 #### [facility] CLIA [id number] [address] [place] [address] [place] Erythrocyte distribution width (RBC) [Ratio] 14.6 % Normal 11.5-15.0 [facility] Comment on above: Order Comment: Speci men Type: BLOOD SPECIMEN [facility] Facility[facility] Address: [address] [place] [address] Performed By: #### 5 7021-8, 42973-6 #### [facility] CLIA [id number] [address] [place] [address] [place] Hematocrit (Bld) [Volume fraction] 39.7 % Normal 36.0-46.0 [facility] Comment on above: Order Comment: Speci men Type: BLOOD SPECIMEN [facility]ing Facility: [facility] Address: [address] [place] [address] Performed By: #### 5 7021-8, 53441-8 #### [facility] CLIA [id number] [address] [place] [address] [place] Hemoglobin (Bld) [Mass/Vol] 12.4 g/dL Normal 11.5-15.5 [facility] Comment on above: Order Comment: Speci men Type: BLOOD SPECIMEN [facility] Facility: [facility] Address: [address] [place] [address] Performed By: #### 5 7021-8, 04037-9 #### [facility] CLIA [id number] [address] [place] [address] [place] Immature granulocytes (Bld) [#/Vol] 0.06 10*3/uL Normal <0.10 [facility] Comment on above: Order Comment: Speci men Type: BLOOD SPECIMEN [facility]ing Facility: [facility] Address: [address] [address] Performed By: #### 5 7021-8, 46642-4 #### [facility] CLIA [id number] [address] [place] [address] [place] Immature granulocytes/100 WBC (Bld) 0.6 % Normal [facility] Comment on above: Order Comment: Speci men Type: BLOOD SPECIMEN Ordering Facility: [facility] Address: [address] [address] Performed By: #### 5 7021-8, 58971-6 #### [facility] CLIA [id number] [address] [place] [address] [place] Lymphocytes (Bld) [#/Vol] 1.72 10*3/uL Normal 1.00-4.00 [facility] Comment on above: Order Comment: Speci men Type: BLOOD SPECIMEN [facility]ing Facility: [facility] Address: [address] [address] Performed By: #### 5 7021-8, 35479-9 #### [facility] CLIA [id number] [address] [place] [address] [place] Lymphocytes/100 WBC (Bld) 16.0 % Normal [facility] Comment on above: Order Comment: Speci men Type: BLOOD SPECIMEN [facility] Address: [address] [address] Performed By: #### 5 7021-8, 49305-8 #### [facility] [facility] CLIA [id number] [address] [place] [address] [place] MCH (RBC) [Entitic mass] 27.2 pg Normal 26.0-34.0 [facility] Comment on above: Order Comment: Speci men Type: BLOOD SPECIMEN Ordering Facility: [facility] Address: [address] [address] Performed By: #### 5 7021-8, 20905-4 #### [facility] CLIA [id number] [address] [place] [address] [place] MCHC (RBC) [Mass/Vol] 31.2 g/dL Normal 30.5-36.0 [facility] Comment on above: Order Comment: Speci men Type: BLOOD SPECIMEN Ordering Facility: [facility] Address: [address] [place] [address] Performed By: #### 5 7021-8, 48849-9 #### [facility] CLIA [id number] [address] [place] [address] [place] MCV (RBC) [Entitic vol] 87.1 fL Normal 80.0-100.0 [facility] Comment on above: Order Comment: Speci men Type: BLOOD SPECIMEN Ordering Facility: [facility] Address: [address] [place] [address] Performed By: #### 5 7021-8, 92266-2 #### [facility] CLIA [id number] [address] [place] [address] [place] Monocytes (Bld) [#/Vol] 0.68 10*3/uL Normal <0.87 [facility] Comment on above: Order Comment: Speci men Type: BLOOD SPECIMEN Ordering Facility: [facility] Address: [address] [place] [address] Performed By: #### 5 7021-8, 61671-6 #### [facility] CLIA [id number] [address] [place] [address] [place] Monocytes/100 WBC (Bld) 6.3 % Normal [facility] Comment on above: Order Comment: Speci men Type: BLOOD SPECIMEN Ordering Facility: [facility] Address: [address] [place] [address] Performed By: #### 5 7021-8, 45417-0 #### [facility] CLIA [id number] [address] [place] [address] [place] Neutrophils (Bld) [#/Vol] 7.63 10*3/uL High 1.45-7.50 [facility] Comment on above: Order Comment: Speci men Type: BLOOD SPECIMEN Ordering Facility: [facility] Address: [address] [address] Performed By: #### 5 7021-8, 84121-6 #### [facility] CLIA [id number] [address] [place] [address] [place] Neutrophils/100 WBC (Bld) 70.8 % Normal [facility] Comment on above: Order Comment: Speci men Type: BLOOD SPECIMEN Ordering Facility: [facility] Address: [address] [place] [address] Performed By: #### 5 7021-8, 02343-2 #### [facility] CLIA [id number] [address] [place] [address] [place] Nucleated RBC (Bld) [#/Vol] 10*3/uL Normal <0.01 [facility] Comment on above: Order Comment: Speci men Type: BLOOD SPECIMEN Ordering Facility: [facility] Address: [address] [place] [address] Performed By: #### 5 7021-8, 72770-5 #### [facility] CLIA [id number] [address] [place] [address] [place] Nucleated RBC/100 WBC (Bld) [Ratio] 0.0 /100 WBC Normal [facility] Comment on above: Order Comment: Speci men Type: BLOOD SPECIMEN Ordering Facility: [facility] Address: [address] [address] Performed By: #### 5 7021-8, 30607-0 #### [facility] CLIA [id number] [address] [place] [address] [place] Platelet mean volume (Bld) [Entitic vol] 9.6 fL Normal 9.0-12.7 [facility] Comment on above: Order Comment: Speci men Type: BLOOD SPECIMEN Ordering Facility: [facility] Address: [address] [address] Performed By: #### 5 7021-8, 08451-5 #### [facility] CLIA [id number] [address] [place] [address] [place] Platelets (Bld) [#/Vol] 244 10*3/uL Normal 150-400 [facility] Comment on above: Order Comment: Speci men Type: BLOOD SPECIMEN Ordering Facility: [facility] Address: [address] Performed By: #### 5 7021-8, 59967-2 #### [facility] CLIA [id number] [address] [place] [address] [place] RBC (Bld) [#/Vol] 4.56 10*6/uL Normal 3.90-5.20 [facility] Comment on above: Order Comment: Speci men Type: BLOOD SPECIMEN Ordering Facility: [facility] Address: [address] Performed By: #### 5 7021-8, 66279-3 #### [facility] CLIA [id number] [address] [place] [address] [place] WBC (Bld) [#/Vol] 10.77 10*3/uL Normal 3.70-11.00 [facility] Comment on above: Order Comment: Speci men Type: BLOOD SPECIMEN Ordering Facility: [facility] Address: [address] Performed By: #### 5 7021-8, 34893-0 #### [facility] CLIA [id number] [address] [place] [address] [place] Basophils (Bld) [#/Vol] 0.04 10*3/uL <0.11 k/uL [facility] Basophils/100 WBC (Bld) 0.4 % C [facility] Differential cell count method Nom (Bld) Auto [facility] Eosinophils (Bld) [#/Vol] 0.64 10*3/uL High <0.46 k/uL [facility] Eosinophils/100 WBC (Bld) 5.9 % [facility] Erythrocyte distribution width (RBC) [Ratio] 14.6 % 11.5 - 15.0 % [facility] Hematocrit (Bld) [Volume fraction] 39.7 % 36.0 - 46.0 % [facility] Hemoglobin (Bld) [Mass/Vol] 12.4 g/dL 11.5 - 15.5 g/dL [facility] Immature granulocytes (Bld) [#/Vol] 0.06 10*3/uL <0.10 k/uL [facility] Immature granulocytes/100 WBC (Bld) 0.6 % [facility] Lymphocytes (Bld) [#/Vol] 1.72 10*3/uL 1.00 - 4.00 k/uL [facility] Lymphocytes/100 WBC (Bld) 16.0 % [facility] MCH (RBC) [Entitic mass] 27.2 pg 26. 0 - 34.0 pg [facility] MCHC (RBC) [Mass/Vol] 31.2 g/dL 30.5 - 36.0 g/dL [facility] MCV (RBC) [Entitic vol] 87.1 fL 80.0 - 100.0 fL [facility] Monocytes (Bld) [#/Vol] 0.68 10*3/uL <0.87 k/uL [facility] Monocytes/100 WBC (Bld) 6.3 % C [facility] Neutrophils (Bld) [#/Vol] 7.63 10*3/uL High 1.45 - 7.50 k/uL [facility] Neutrophils/100 WBC (Bld) 70.8 % [facility] Nucleated RBC (Bld) [#/Vol] <0.01 k/uL [facility] Nucleated RBC/100 WBC (Bld) [Ratio] 0.0 /100 WBC [facility] Platelet mean volume (Bld) [Entitic vol] 9.6 fL 9.0 - 12.7 fL [facility] Platelets (Bld) [#/Vol] 244 10*3/uL 150 - 400 k/uL [facility] RBC (Bld) [#/Vol] 4.56 10*6/uL 3.90 - 5.2 0 m/uL [facility] WBC (Bld) [#/Vol] 10.77 10*3/uL 3.70 - 11 .00 k/uL [facility] ECG COMPLETEon 11-07-2022 Atrial Rate 73 BPM [facility] Calculated P [place] 70 [facility] Calculated R [place] 78 degrees [facility] Calculated T [place] 44 degrees [facility] P-R Interval 160 ms [facility] QRS Duration 72 ms [facility] QT Interval 416 ms [facility] QTC Calculation (Bazett) 458 ms [facility] Ventricular Rate 73 BPM [facility] [id number] 11-07-2022 ECG01 Ventricular Rate : 7 3 BPM Atrial Rate : 73 BPM P-R Interval : 160 ms QRS Duration : 72 ms Q-T Interval : 416 ms QTC Calculation(Bazett) : 458 ms Calculated P [place] : 70 degrees Calculated R [place] : 78 degrees Calculated T [place] : 44 degrees Normal sinus rhythm Low voltage QRS Borderline ECG No previous ECGs available Confirmed by LAURA PERRY MD ([id number]) on 11/07/2022 4:02:05 PM NAME : DERRELL GERMAN PID : [id number] : 1955 Gender : Female Race : ORD : [id number] Procedure Date : Nov 07 2022 12:13:35 Edit Date : Nov 07 2022 16:02:06 Diagnosis: Normal sinus rhythm Low voltage QRS Borderline ECG No previous ECGs available Confirmed by LAURA PERRY MD ([id number]) on 11/07/2022 4:02:05 PM Test Reason : [facility] By : LAURA PERRY MD Edited By : LAURA PERRY MD Referred By : JAIME Acquired by : AMANDAK, Evangelina [facility] FERRITIN BLDon 11-07-2022 Ferritin [Mass/Vol] 51.2 ng/mL 8.0 - 30 7.0 ng/mL [facility] Ferritin SerPl-mCncon 2022 Ferritin [Mass/Vol] 51.2 ng/mL Normal 8.0-307.0 [facility] Comment on above: Order Comment: Speci men Type: BLOOD SPECIMEN Ordering Facility: [facility] Address: [address] [place] [id number] Performed By: #### 2 4321-2, 2276-4, 09667-6 #### [facility] CLIA [id number] [address] [place] [address] [place] #### 82883-7 #### [facility] CLIA [id number] [address] [place], [place] [address] [place] HbA1c (Bld)on 11-07-2022 Average glucose Estimated from glycated hemoglobin (Bld) [Mass/Vol] 203 mg/dL Normal [facility] Comment on above: Order Comment: Oleg najera Type: BLOOD SPECIMEN Ordering Facility: [facility] Address: [address] [id number] Result Comment: eAG: (Estimated average glucose) is a calculated value from HgbA1c and is outbound call center representative of the average blood glucose level in the last 2-3 month period. Performed By: #### 5 7021-8, 14084-4 #### [facility] CLIA [id number] [address] [place] [address] HbA1c (Bld) [Mass fraction] 8.7 % High 4.3-6.0 [facility] Comment on above: Order Comment: Oleg najera Type: BLOOD SPECIMEN Ordering Facility: [facility] Address: [address] [place] [address] Result Comment: [place] Diabetes Association guidelines indicate that patients with HgbA1c in the range 5.7-6.4% are at increased risk for development of diabetes, and intervention by lifestyle modification may be beneficial. HgbA1c greater or equal to 6.5% is considered diagnostic of diabetes. Performed By: #### 5 7021-8, 40794-0 #### [facility] CLIA [id number] [address] [place] [address] [place] Average glucose Estimated from glycated hemoglobin (Bld) [Mass/Vol] 203 mg/dL [facility] HbA1c (Bld) [Mass fraction] 8.7 % High 4.3 - 6.0 % [facility] Iron and Iron binding capaci ty panelon 11-07-2022 Iron [Mass/Vol] 64 ug/dL 50 - 170 ug/dL [facility] Iron binding capacity [Mass/Vol] 392 ug/dL 221 - 481 ug/dL [facility] Iron/TIBC [Molar ratio] 16.3 % Low 22.0 - 44.0 % [facility] Iron [Mass/Vol] 64 ug/dL Normal 50-170 [facility] Comment on above: Order Comment: Oleg najera Type: BLOOD SPECIMEN Ordering Facility: [facility] Address: [address] [id number] Result Comment: Sade ents treated with metal-binding drugs (e.g.deferoxamine) may have depressed iron values, as chelated iron may not properly react in the Siemens iron assay. Performed By: #### 2 4321-2, 6-4, 86784-7 #### [facility] CLIA [id number] [address] [place] [address] [place] #### 01216-8 #### [facility] CLIA [id number] [address] [place] [address] STATES [facility] Iron binding capacity [Mass/Vol] 392 ug/dL Normal 221-481 [facility] Comment on above: Order Comment: Oleg najera Type: BLOOD SPECIMEN Ordering Facility: [facility] Address: [address] Performed By: #### 2 4321-2, 6-4, 36296-6 #### [facility] CLIA [id number] [address] [place] [address] [place] #### 43273-8 #### [facility] CLIA [id number] [address] [place] [address] [place] Iron/TIBC [Molar ratio] 16.3 % Low 22.0-44.0 M [facility] Comment on above: Order Comment: Oleg najera Type: BLOOD SPECIMEN Ordering Facility: [facility] Address: [address] Performed By: #### 2 4321-2, 2276-4, 82921-4 #### [facility] CLIA [id number] [address] [place] [address] [place] #### 47271-8 #### [facility] CLIA [id number] [address] OF [place] Laboratory - Microbiology an d Antimicrobial susceptibilityon 11-07-2022 S. aureus and MRSA panel MASHA+probe (Nose) Negative Negative [facility] NT-proBNP SerPl-mCncon 11-07 Natriuretic peptide.B prohormone N-Terminal [Mass/Vol] 64 pg/mL Normal <125 [facility] Comment on above: Order Comment: Speci men Type: BLOOD SPECIMEN Ordering Facility: [facility] Address: [address] [place] [address] Performed By: #### 2 4321-2, 2276-4, 67487-8 #### [facility] CLIA [id number] [address] [place] [address] OF [place] #### 19115-2 #### [facility] CLIA [id number] [facility] [address] [employer] PCRon S. aureus and MRSA panel MASHA+probe (Nose) Normal Negative [facility] Comment on above: Order Comment: Speci men Type: SWAB OF INTERNAL NOSEOrdering Facility: [facility] Address: [address] [place] [address] Result Comment: Nega tive for Staphylococcus aureus by PCR. Negative for MRSA by PCR Performed By: #### S APCR ####[facility] [id number] [address] OF [place] TYPE AND SCREEN,30 DAYon ABO A [facility] HIstorical Ab Scr Status Negative [facility] Rh Nom (Bld) Positive [facility] ABO A Normal [facility] Comment on above: Order Comment: Speci men Type: BLOOD SPECIMEN Ordering Facility: [facility] Address: [address] [place] [address] Performed By: #### T SCR30 #### [facility] CLIA [id number] [address] [place] [address] [place] HISTORICAL AB SCR STATUS Negative [facility] Comment on above: Order Comment: Speci men Type: BLOOD SPECIMEN Ordering Facility: [facility] Address: [address] [place] [place] [address] Performed By: #### T SCR30 #### [facility] CLIA [id number] [address] [place] [address] OF [place] Rh Nom (Bld) Positive [facility] Comment on above: Order Comment: Speci men Type: BLOOD SPECIMEN Ordering Facility: [facility] Address: [address] [address] Performed By: #### T SCR30 #### [facility] CLIA [id number] [address] [place] [address] [place] CNCOon 11-01-2022 CNCO Letter Text [facility] - Hematology and Cell countson 09-22-2022 HbA1c (Bld) [Mass fraction] 8.2 % [facility] Basophil percentageon 2021 WBC (Bld) [#/Vol] 8.6 10*3/uL 4.4-11.0 [facility] Blood erythrocytes count (nu mber/volume)on 07-19-2022 RBC (Bld) [#/Vol] 4.41 10*6/uL 4.2-5.4 [facility] Blood hemoglobin measurement (mass/volume)on 07-19-2022 Hemoglobin (Bld) [Mass/Vol] 12.9 g/dL 12.0-15.0 [facility] Blood platelet mean volumeon 07-19-2022 Platelet mean volume (Bld) [Entitic vol] 9.2 fL 6.2-12.0 [facility] Determination of erythrocyte mean corpuscular volume (MCV)on 07-19-2022 MCV (RBC) [Entitic vol] 91.4 fL 81-99 [facility] Erythrocyte sedimentation ra avni 07-19-2022 ESR (Bld) [Velocity] 27 mm/h 0-30 [facility] Hematocrit Auto (Bld) [Volum e fraction]on 07-19-2022 Hematocrit (Bld) [Volume fraction] 40.3 % 37-47 [facility] Laboratory - Hematology and Cell countson 07-19-2022 Erythrocyte distribution width (RBC) [Entitic vol] 48.4 fL 35.1-43.9 [facility] Erythrocyte distribution width (RBC) [Ratio] 14.4 % 11.6-14.6 [facility] MCH (RBC) [Entitic mass] 29.3 pg 27.0-32.0 [facility] MCHC Auto (RBC) [Mass/Vol]on 07-19-2022 MCHC (RBC) [Mass/Vol] 32.0 g/dL 32-36 [facility] No Panel Informationon 07-19 Estimated GFR (MDRD) Amer 64 mL/min >60 [facility] Comment on above: GFR Calc Estimated GFR (MDRD) Non-Af Amer 53 mL/min >60 [facility] Comment on above: Non- GFR Calc Platelets bldon 07-19-2022 Platelets (Bld) [#/Vol] 272 10*3/uL 150-450 [facility] Serum or plasma C reactive p rotein measurement (mass/volume)on 07-19-2022 CRP [Mass/Vol] 14.80 mg/L 0.0-3.0 [facility] Comment on above: C-Reactive Protein ( CRP) provides useful information for thediagnosis, therapy and monitoring of inflammatory processesand associated diseases. For the evaluation of Relative Riskfor Cardiovascular Disease, a High Sensitivity CRP (HSCRP)should be ordered. Serum or plasma creatinine m easurement (mass/volume)on 07-19-2022 Creatinine [Mass/Vol] 1.10 mg/dL 0.55-1.02 [facility] Comment on above: The validity of the calculated GFR & GFRAA in patients over 70 years has not been determined. Clinical correlation is essential. Serum or plasma urea nitroge n measurement (mass/volume)on 07-19-2022 Urea nitrogen [Mass/Vol] 13 mg/dL 7-18 [facility] - Hematology and Cell countson 05-26-2022 HbA1c (Bld) [Mass fraction] 7.5 % [facility] Work Phone: Basophil percentageon 2021 Basophil percentage 25-50 SEEN /hpf 0-5 [facility] Work Phone: Bilirubin [Mass/Vol] 0.30 mg/dL 0.20-1.00 [facility] Work Phone: Comment on above: For patients on eltr ombopag therapy, use of Dimension Tutor Key TBIL is not recommended. Chloride [Moles/Vol] 100 mmol/L 98-107 [facility] Cholesterol [Mass/Vol] 114 mg/dL <200 Cl [facility] Comment on above: <200 mg/dL Desirable 200-240 mg/dL Borderline >240 mg/dL High Risk Glucose [Mass/Vol] 115 mg/dL 74-106 [facility] Comment on above: Fasting Glucose resu lt from 100 to 125 mg/dL suggests IMPAIRED HOMEOSTASIS per A.D.A. criteria. Potassium [Moles/Vol] 4.1 mmol/L 3.5-5.1 [facility] Protein [Mass/Vol] 7.2 g/dL 6.4-8.2 [facility] Sodium [Moles/Vol] 138 mmol/L 136-145 [facility] Triglyceride [Mass/Vol] 131 mg/dL <199 [facility] Comment on above: The drugs N-Acetylcy steine and Metamizole may falsely depress this assay.Serum Triglycerides Reference Interval Normal <150 mg/dL Borderline high 150 - 199 mg/dL High 200 - 499 mg/dL Very High > or = 500 mg/dL Bilirubin Test strip Ql (U)o n 02-22-2022 Bilirubin Ql (U) Negative Negative [facility] Work Phone: CMP (EXTERNAL)on 02-22-2022 Alk Phos Total 110 U/L 45 - 117 U/L [facility] Anion Gap 6 mg/dL 5 - 15 mg/dL [facility] AST [Catalytic activity/Vol] 37 U/L 8 - 37 U/L [facility] Bili Total 0.30 mg/dL 0.2 - 1 mg/dL [facility] GFR AFR AMER 64 mL/MIN [facility] GFR/1.73 sq M.predicted among non-blacks MDRD (S/P/Bld) [Vol rate/Area] 53 mL/min/{1.73_m2} [facility] Ketones Test strip Ql (U)on 02-22-2022 Ketones Ql (U) Negative Negative [facility] Work Phone: LIPID PANEL (OUTSIDE)on 02-03 LDL:HDL Ratio [facility] Non-HDL Cholesterol [facility] TC:HDL Ratio [facility] VLDL Cholesterol 26 [facility] Laboratory - Chemistry and C hemistry - challengeon 02-22-2022 ALP [Catalytic activity/Vol] 110 U/L 45-117 [facility] Work Phone: ALT [Catalytic activity/Vol] 25 U/L 13-56 [facility] CO2 [Moles/Vol] 32.0 mmol/L 21.0-32.0 [facility] Free T4 [Mass/Vol] 1.51 ng/dL 0.76-1.46 [facility] Globulin (S) [Mass/Vol] 3.8 g/dL 2.2-4.2 C leveland [facility] Urea nitrogen/Creatinine [Mass ratio] 13.6 mg/mg 10-20 [facility] Laboratory - Hematology and Cell countson 02-22-2022 HbA1c (Bld) [Mass fraction] 8.1 % [facility] Work Phone: Mucus LM Ql (Urine sed)on Mucus Ql (Urine sed) 0 SEEN /hpf [facility] Work Phone: Nitrite Test strip Ql (U)on 02-22-2022 Nitrite Ql (U) Positive Negative [facility] Work Phone: No Panel Informationon 02-22 Estimated GFR (MDRD) Amer 64 mL/min >60 [facility] Work Phone: Comment on above: GFR Calc Estimated GFR (MDRD) Non-Af Amer 53 mL/min >60 [facility] Work Phone: Comment on above: Non- GFR Calc Thyroid Stimulating Hormone (TSH) 0.41 uIU/mL 0.358-3.74 [facility] Work Phone: Vitamin D 25-Hydroxy 36.5 ng/mL [facility] Work Phone: Comment on above: Vitamin D 25(OH) Sta tus Range Deficiency <20 ng/mL (50nmol/L) Insufficiency 20 - 30 ng/mL (50 - 75 nmol/L) Sufficiency 30 - 100 ng/mL (75 - 250 nmol/L) Toxicity >100 ng/mL (>250 nmol/L) Protein Test strip Ql (U)on 02-22-2022 Protein Ql (U) 15 mg/dl Negative [facility] Work Phone: Serum or plasma albumin christi urement (mass/volume)on 02-22-2022 Albumin [Mass/Vol] 3.4 g/dL 3.2-5.0 [facility] Serum or plasma albumin/glob ulin mass ratioon 02-22-2022 Albumin/Globulin [Mass ratio] 0.9 {ratio} 0.9-2.4 [facility] Serum or plasma calcium christi urement (mass/volume)on 02-22-2022 Calcium [Mass/Vol] 9.7 mg/dL 8.5-10.1 [facility] Serum or plasma cholesterol in HDL measurement (mass/volume)on 02-22-2022 Cholesterol in HDL [Mass/Vol] 40 mg/dL >40 [facility] Comment on above: The drugs N-Acetylcy steine and Metamizole may falsely depress this assay. Reference Range HDL <40 mg/dL Low HDL Cholesterol HDL >or= 60 mg/dL High HDL Cholesterol Serum or plasma cholesterol in VLDL measurement (mass/volume)on 02-22-2022 Cholesterol in VLDL [Mass/Vol] 26 mg/dL 5-40 [facility] Work Phone: Serum or plasma creatinine m easurement (mass/volume)on 02-22-2022 Creatinine [Mass/Vol] 1.10 mg/dL 0.55-1.02 [facility] Comment on above: The validity of the calculated GFR & GFRAA in patients over 70 years has not been determined. Clinical correlation is essential. Serum or plasma low density lipoprotein (LDL) cholesterol measurement (mass/volume)on 02-22-2022 Cholesterol in LDL [Mass/Vol] 48 mg/dL 0-130 [facility] Serum or plasma urea nitroge n measurement (mass/volume)on 02-22-2022 Urea nitrogen [Mass/Vol] 15 mg/dL 7-18 [facility] Squamous epithelial cells de tection in urine sediment by light microscopyon 02-22-2022 Epithelial cells.squamous LM Ql (Urine sed) 0-5 SEEN /hpf 5-10 [facility] Work Phone: TSH (EXTERNAL)on 02-22-2022 TSH 0.41 IU/ml 0.2 - 5.6 IU/ml [facility] Thin prep Papanicolaou smear with manual screeningon 02-22-2022 Thin prep Papanicolaou smear with manual screening 37 U/L 15-37 [facility] Work Phone: Thin prep Papanicolaou smear with manual screening 6 5-15 [facility] Work Phone: Urine blood detectionon - RBC Ql (U) 10 /ul Negative [facility] Work Phone: RBC Ql (U) 5-10 SEEN /hpf 0-5 [facility] Work Phone: Urine clarityon 02-22-2022 Clarity (U) Sl. Cloudy Clear [facility] Work Phone: Urine color determinationon 02-22-2022 Color (U) Straw Yellow [facility] Work Phone: Urine glucose detectionon Glucose Ql (U) Normal mg/dl Normal [facility] Work Phone: Urine leukocyte esterase det ection by dipstickon 02-22-2022 Leukocyte esterase Test strip Ql (U) 500 /ul Negative [facility] Work Phone: Urine pHon 02-22-2022 pH (U) 6.5 [pH] 5.0 - 8.0 [facility] Work Phone: Urine sediment bacteria coun t by microscopy (number/high power field)on 02-22-2022 Bacteria LM.HPF (Urine sed) [#/Area] 4 /[HPF] None Seen [facility] Work Phone: Urine specific gravity measu rementon 02-22-2022 Specific gravity (U) [Rel density] 1.010 1.002-1.030 [facility] Work Phone: Urobilinogen Auto test strip Ql (U)on 02-22-2022 Urobilinogen Ql (U) Normal mg/dl Normal [facility] Work Phone: VITAMIN D 25 (OH)on 02-23-20 Vitamin D 25 OH 36.5 ng/mL 30 - 100 ng/mL [facility] UA DIP, URINE (POC)on 2021 BILIRUBIN UA (POCT) Moderate Abnormal Negative Juan [facility] CLARITY UA (POCT) Turbid [facility] COLOR UA (POCT) Red [facility] GLUCOSE UA (POCT) 100 mg/dL Abnormal Negative mg/dL [facility] HEMOGLOBIN/BLOOD UA (POCT) Large Abnormal Negative [facility] KETONE UA (POCT) Trace Negative mg/dL [facility] LEUKOCYTES UA (POCT) Large Abnormal Negative [facility] NITRITE UA (POCT) Positive Abnormal Negative [facility] PH UA (POCT) 6.0 4.5 - 8.0 [facility] Protein Ql (U) >=300 Abnormal Negative mg/dL [facility] SPECIFIC GRAVITY UA (POCT) 1.020 1.005 - 1.030 [facility] UROBILINOGEN UA (POCT) 1.0 E.U./dL Lynne l E.U./dL [facility] Whole blood hemoglobin A1c/t otal hemoglobin ratio (mass fraction)on 10-05-2021 HbA1c (Bld) [Mass fraction] 9.6 % 3.8-5.6 [facility] Work Phone: Comment on above: Normal < 5.7 % Predi abetic 5.7 - 6.4 % Diabetic >or= 6.5 % Please note range changes. LABORATORYOrdered By: Romelia solo on 06-22-2021 Glucose [Mass/Vol] 182 mg/dL Invalid Interpretation Code 82 - 115 mg/dL [facility] Work Phone: LABORATORYOrdered By: Doreen Oneal on 06-22-2021 Glucose [Mass/Vol] 237 mg/dL Invalid Interpretation Code 82 - 115 mg/dL [facility] Work Phone: Comment on above: Result Comment: PERF ORMED BY MARIANNE MONTGOMERY IN SURGERY WITH THE USE OF PATIENTS PHONE No Panel Informationon 06-22 GS No organisms seen. [facility] Work Phone: GS Rare Epithelial cell s Rare Polymorphonuclear cells Rare Mononuclear cells 2+ Gram Positive Cocci [facility] Work Phone: Culture, urine Bacteria identified Cx Nom (U) Escherichia coli [facility] Work Phone: Bacteria identified Cx Nom (U) Positive [facility] Work Phone: Vital Signs Date Time Vital Sign Value Performing Clinician Facility 01-31-2025 10:44-0400 Body mass index (BMI) [Ratio] 56.52 kg/m2 Willard Henriquez MD Work Phone: [facility] 01-31-2025 10:44-0400 Body weight 140.16 kg Willard Henriuqez MD Work Phone: [facility] 01-31-2025 10:44-0400 Diastolic blood pressure 71 mm[Hg] Willard Henriquez MD Work Phone: [facility] 01-31-2025 10:44-0400 Heart rate 68 /min Willard Henriquez MD Work Phone: [facility] 01-31-2025 10:44-0400 Respiratory rate 20 /min Willard Henriquez MD Work Phone: [facility] 01-31-2025 10:44-0400 SaO2% (BldA) [Mass fraction] 98 % Willard Henriquez MD Work Phone: [facility] 01-31-2025 10:44-0400 Systolic blood pressure 133 mm[Hg] Willard Henriquez MD Work Phone: [facility] 01-20-2025 13:52-0400 Body height 157.[address] Willard Henriquez MD Work Phone: 2(341)970-530076 [place] [address] 01-20-2025 13:52-0400 Body mass index (BMI) [Ratio] 56.5 kg/m2 Dr. Willard Henriquez MD Work Phone: 2(993)288-465576 [place] [address] 01-20-2025 13:52-0400 Body weight 140.[address] Willard Henriquez MD Work Phone: 8(644)069-519076 [place] [address] 01-20-2025 13:52-0400 Diastolic blood pressure 60 mm[Hg] Dr. Willard Henriquez MD Work Phone: 8(465)277-881776 [place] [address] 01-20-2025 13:52-0400 Heart rate 86 /min Dr. Willard Henriquez MD Work Phone: 3(557)182-091476 [place] [address] 01-20-2025 13:52-0400 SaO2% (BldA) [Mass fraction] 97 % Dr. Willard Henriquez MD Work Phone: 7(089)307-989576 [place] [address] 01-20-2025 13:52-0400 Systolic blood pressure 142 mm[Hg] Dr. Willard Henriquez MD Work Phone: 9(433)624-347876 [place] [address] 01-09-2025 09:05-0400 Body mass index (BMI) [Ratio] 56.3 kg/m2 Dr. Willard Henriquez MD Work Phone: 2(698)180-200376 [place] [address] 01-09-2025 09:05-0400 Body temperature 97.4 [degF] Dr. Willard Henriquez MD Work Phone: 3(563)708-420176 [place] [address] 01-09-2025 09:05-0400 Body weight 139.[address] Willard Henriquez MD Work Phone: 4(506)227-162576 [place] [address] 01-09-2025 09:05-0400 Diastolic blood pressure 70 mm[Hg] Dr. Willard Henriquez MD Work Phone: 2(979)912-768076 [place] [address] 01-09-2025 09:05-0400 Heart rate 88 /min Dr. Willard Henriquez MD Work Phone: 9(187)980-686676 [place] [address] 01-09-2025 09:05-0400 Respiratory rate 20 /min Dr. Willard Henriquez MD Work Phone: [facility] 01-09-2025 09:05-0400 SaO2% (BldA) [Mass fraction] 92 % Dr. Willard Henriquez MD Work Phone: [facility] 01-09-2025 09:05-0400 Systolic blood pressure 141 mm[Hg] Dr. Willard Henriquez MD Work Phone: [facility] 01-03-2025 11:43-0400 Body mass index (BMI) [Ratio] 56.15 kg/m2 Willard Henriquez MD Work Phone: [facility] 01-03-2025 11:43-0400 Body weight 139.25 kg Willard Henriquez MD Work Phone: [facility] 01-03-2025 11:43-0400 Diastolic blood pressure 70 mm[Hg] Willard Henriquez MD Work Phone: [facility] 01-03-2025 11:43-0400 Heart rate 91 /min Willard Henriquez MD Work Phone: [facility] 01-03-2025 11:43-0400 Respiratory rate 20 /min Willard Henriquez MD Work Phone: [facility] 01-03-2025 11:43-0400 SaO2% (BldA) [Mass fraction] 97 % Willard Henriquez MD Work Phone: [facility] 01-03-2025 11:43-0400 Systolic blood pressure 118 mm[Hg] Willard Henriquez MD Work Phone: [facility] 01-01-2025 11:22-0400 Body height 157.[address] Willard Henriquez MD Work Phone: [facility] 01-01-2025 11:22-0400 Body mass index (BMI) [Ratio] 55.7 kg/m2 Dr. Willard Henriquez MD Work Phone: [facility] 01-01-2025 11:22-0400 Body weight 138.[address] Willard Henriquez MD Work Phone: 3(334)782-264276 [place] [address] 01-01-2025 11:22-0400 Diastolic blood pressure 69 mm[Hg] Dr. Willard Henriquez MD Work Phone: 6(062)377-160676 [place] [address] 01-01-2025 11:22-0400 Heart rate 88 /min Dr. Willard Henriquez MD Work Phone: 1(516)533-697976 [place] [address] 01-01-2025 11:22-0400 Respiratory rate 18 /min Dr. Willard Henriquez MD Work Phone: 5(680)829-845976 [place] [address] 01-01-2025 11:22-0400 Systolic blood pressure 156 mm[Hg] Dr. Willard Henriquez MD Work Phone: 4(883)391-726976 [place] [address] 12-17-2024 21:11-0400 Heart rate 88 /min Dr. Willard Henriquez MD Work Phone: 3(938)422-668976 [place] [address] 12-17-2024 21:11-0400 Respiratory rate 20 /min Dr. Willard Henriquez MD Work Phone: 8(799)023-926476 [place] [address] 12-17-2024 21:11-0400 SaO2% (BldA) [Mass fraction] 98 % Dr. Willard Henriquez MD Work Phone: 1(213)441-811776 [place] [address] 12-17-2024 19:41-0400 Diastolic blood pressure 40 mm[Hg] Dr. Willard Henriquez MD Work Phone: 4(893)237-100776 [place] [address] 12-17-2024 19:41-0400 Systolic blood pressure 141 mm[Hg] Dr. Willard Henriquez MD Work Phone: 6(308)399-016976 [place] [address] 12-17-2024 18:52-0400 Body mass index (BMI) [Ratio] 56.7 kg/m2 Dr. Willard Henriquez MD Work Phone: 9(180)333-821476 [place] [address] 12-17-2024 18:52-0400 Body weight 140.[address] Willard Henriquez MD Work Phone: 2(611)984-494076 [place] [address] 12-17-2024 18:33-0400 Body height 157.[address] Willard Henriquez MD Work Phone: [facility] 12-17-2024 18:33-0400 Body temperature 98.7 [degF] Dr. Willard Henriquez MD Work Phone: [facility] 12-05-2024 13:59-0400 Body mass index (BMI) [Ratio] 57.26 kg/m2 Padmini Anguiano STOVE POLISHER.ENROLLMENT REPRESENTATIVE Work Phone: [facility] 12-05-2024 13:59-0400 Body weight 142 kg Padmini Anguiano [employer]OVE POLISHER.ENROLLMENT REPRESENTATIVE Work Phone: [facility] 12-05-2024 13:59-0400 Diastolic blood pressure 73 mm[Hg] Padmini Anguiano STOVE POLISHER.ENROLLMENT REPRESENTATIVE Work Phone: [facility] 12-05-2024 13:59-0400 Heart rate 84 /min Padmini Anguiano STOVE POLISHER.ENROLLMENT REPRESENTATIVE Work Phone: [facility] 12-05-2024 13:59-0400 SaO2% (BldA) [Mass fraction] 97 % Padmini Anguiano [employer]OVE POLISHER.ENROLLMENT REPRESENTATIVE Work Phone: [facility] 12-05-2024 13:59-0400 Systolic blood pressure 124 mm[Hg] Padmini Anguiano STOVE POLISHER.ENROLLMENT REPRESENTATIVE Work Phone: [facility] 12-03-2024 11:15-0400 Body height 157.[address] Willard Henriquez MD Work Phone: [facility] 12-03-2024 11:15-0400 Body weight 145.[address] Willard Henriquez MD Work Phone: [facility] 12-03-2024 11:15-0400 Heart rate 91 /min Dr. Willard Henriquez MD Work Phone: [facility] 12-03-2024 11:15-0400 SaO2% (BldA) [Mass fraction] 98 % Dr. Willard Henriquez MD Work Phone: [facility] 11-29-2024 20:00-0400 Diastolic blood pressure 70 mm[Hg] Dr. Willard Henriquez MD Work Phone: 5(092)782-888004 [place] [address] 11-29-2024 20:00-0400 Heart rate 75 /min Dr. Willard Henriquez MD Work Phone: 1(697)923-747504 [place] [address] 11-29-2024 20:00-0400 Respiratory rate 21 /min Dr. Willard Henriquez MD Work Phone: 2(990)503-256576 [place] [address] 11-29-2024 20:00-0400 SaO2% (BldA) [Mass fraction] 92 % Dr. Willard Henriquez MD Work Phone: 9(611)502-425476 [place] [address] 11-29-2024 20:00-0400 Systolic blood pressure 147 mm[Hg] Dr. Willard Henriquez MD Work Phone: 8(174)344-681404 [place] [address] 11-29-2024 18:28-0400 Body mass index (BMI) [Ratio] 58.7 kg/m2 Dr. Willard Henriquez MD Work Phone: 3(668)472-289704 [place] [address] 11-29-2024 18:28-0400 Body weight 145.[address] Willard Henriquez MD Work Phone: 1(783)056-169776 [place] [address] 11-29-2024 15:01-0400 Body height 157.[address] Willard Henriquez MD Work Phone: 5(048)616-737076 [place] [address] 11-29-2024 15:01-0400 Body temperature 97.8 [degF] Dr. Willard Henriquez MD Work Phone: [facility] 11-29-2024 14:33-0400 Body mass index (BMI) [Ratio] 57.98 kg/m2 Willard Henriquez MD Work Phone: [facility] 11-29-2024 14:33-0400 Body weight 143.79 kg Willard Henriquez MD Work Phone: [facility] 11-29-2024 14:33-0400 Diastolic blood pressure 62 mm[Hg] Willard Henriquez MD Work Phone: [facility] 11-29-2024 14:33-0400 Heart rate 82 /min Willard Henriquez MD Work Phone: [facility] 11-29-2024 14:33-0400 Respiratory rate 24 /min Willard Henriquez MD Work Phone: [facility] 11-29-2024 14:33-0400 SaO2% (BldA) [Mass fraction] 95 % Willard Henriquez MD Work Phone: [facility] 11-29-2024 14:33-0400 Systolic blood pressure 136 mm[Hg] Willard Henriquez MD Work Phone: [facility] 11-27-2024 07:57-0400 Body mass index (BMI) [Ratio] 57.8 kg/m2 Dr. Willard Henriquez MD Work Phone: [facility] 11-27-2024 07:57-0400 Body temperature 97.3 [degF] Dr. Willard Henriquez MD Work Phone: 3(767)847-795404 [place] [address] 11-27-2024 07:57-0400 Body weight 143.[address] Willard Henriquez MD Work Phone: [facility] 11-27-2024 07:57-0400 Diastolic blood pressure 82 mm[Hg] Dr. Willard Henriquez MD Work Phone: [facility] 11-27-2024 07:57-0400 Heart rate 94 /min Dr. Willard Henriquez MD Work Phone: [facility] 11-27-2024 07:57-0400 Respiratory rate 18 /min Dr. Willard Henriquez MD Work Phone: [facility] 11-27-2024 07:57-0400 SaO2% (BldA) [Mass fraction] 93 % Dr. Willard Henriquez MD Work Phone: [facility] 11-27-2024 07:57-0400 Systolic blood pressure 144 mm[Hg] Dr. Willard Henriquez MD Work Phone: [facility] 11-11-2024 14:15-0400 Body height 157.[address] Willard Henriquez MD Work Phone: [facility] 11-11-2024 14:15-0400 Body mass index (BMI) [Ratio] 56.1 kg/m2 Dr. Willard Henriquez MD Work Phone: [facility] 11-11-2024 14:15-0400 Body weight 139.[address] Willard Henriquez MD Work Phone: [facility] 11-11-2024 14:15-0400 Diastolic blood pressure 79 mm[Hg] Dr. Willard Henriquez MD Work Phone: 7(300)808-614204 [place] [address] 11-11-2024 14:15-0400 Heart rate 93 /min Dr. Willard Henriquez MD Work Phone: [facility] 11-11-2024 14:15-0400 SaO2% (BldA) [Mass fraction] 95 % Dr. Willard Henriquez MD Work Phone: [facility] 11-11-2024 14:15-0400 Systolic blood pressure 147 mm[Hg] Dr. Willard Henriquez MD Work Phone: [facility] 05-31-2024 13:32-0400 Body mass index (BMI) [Ratio] 55.79 kg/m2 Padmini Anguiano APRN.ENROLLMENT REPRESENTATIVE Work Phone: [facility] 05-31-2024 13:32-0400 Body weight 138.35 kg Padmini Anguiano APRN.ENROLLMENT REPRESENTATIVE Work Phone: [facility] 05-31-2024 13:32-0400 Diastolic blood pressure 79 mm[Hg] Padmini Anguiano APRN.ENROLLMENT REPRESENTATIVE Work Phone: [facility] 05-31-2024 13:32-0400 Heart rate 94 /min Padmini Anguiano APRN.ENROLLMENT REPRESENTATIVE Work Phone: [facility] 05-31-2024 13:32-0400 Respiratory rate 18 /min Padmini Anguiano APRN.ENROLLMENT REPRESENTATIVE Work Phone: [facility] 05-31-2024 13:32-0400 SaO2% (BldA) [Mass fraction] 96 % Padmini Anguiano APRN.ENROLLMENT REPRESENTATIVE Work Phone: [facility] 05-31-2024 13:32-0400 Systolic blood pressure 138 mm[Hg] Padmini Anguiano APRN.ENROLLMENT REPRESENTATIVE Work Phone: [facility] 05-09-2024 13:35-0400 Body mass index (BMI) [Ratio] 55.05 kg/m2 Padmini Anguiano APRN.ENROLLMENT REPRESENTATIVE Work Phone: [facility] 05-09-2024 13:35-0400 Body temperature 98.2 [degF] Padmini Anguiano APRN.ENROLLMENT REPRESENTATIVE Work Phone: [facility] 05-09-2024 13:35-0400 Body weight 136.53 kg Padmini Anguiano APRN.ENROLLMENT REPRESENTATIVE Work Phone: [facility] 05-09-2024 13:35-0400 Diastolic blood pressure 75 mm[Hg] Padmini Anguiano APRN.ENROLLMENT REPRESENTATIVE Work Phone: [facility] 05-09-2024 13:35-0400 Heart rate 102 /min Padmini Anguiano APRN.ENROLLMENT REPRESENTATIVE Work Phone: [facility] 05-09-2024 13:35-0400 Respiratory rate 14 /min Padmini Anguiano APRN.ENROLLMENT REPRESENTATIVE Work Phone: [facility] 05-09-2024 13:35-0400 Systolic blood pressure 118 mm[Hg] Padmini Anguiano APRN.ENROLLMENT REPRESENTATIVE Work Phone: [facility] 2023 14:11-0400 Body weight 123.83 kg Padmini Anguiano APRN.ENROLLMENT REPRESENTATIVE Work Phone: [facility] 2023 14:11-0400 Diastolic blood pressure 76 mm[Hg] Padmini Anguiano APRN.ENROLLMENT REPRESENTATIVE Work Phone: [facility] 2023 14:11-0400 Heart rate 80 /min Padmini Anguiano APRN.ENROLLMENT REPRESENTATIVE Work Phone: [facility] 2023 14:11-0400 Respiratory rate 18 /min Padmini Anguiano STOVE POLISHER.ENROLLMENT REPRESENTATIVE Work Phone: [facility] 2023 14:11-0400 Systolic blood pressure 134 mm[Hg] Padmini Anguiano APRN.ENROLLMENT REPRESENTATIVE Work Phone: [facility] 10-30-2023 15:03-0500 Body height 157.[address] Willard Henriquez Work Phone: [facility] 10-30-2023 15:03-0500 Body mass index (BMI) [Ratio] 49.7 kg/m2 Dr. Willard Henriquez Work Phone: [facility] 10-30-2023 15:03-0500 Body weight 123.[address] Willard Henriquez Work Phone: [facility] 10-25-2023 16:38-0500 Body weight 122.02 kg Willard Henriquez MD Work Phone: [facility] 10-25-2023 16:38-0500 Diastolic blood pressure 70 mm[Hg] Willard Henriquez MD Work Phone: [facility] 10-25-2023 16:38-0500 Heart rate 76 /min Willard Henriquez MD Work Phone: [facility] 10-25-2023 16:38-0500 Respiratory rate 16 /min Willard Henriquez MD Work Phone: [facility] 10-25-2023 16:38-0500 Systolic blood pressure 124 mm[Hg] Willard Henriquez MD Work Phone: [facility] 10-25-2023 10:15-0500 Body mass index (BMI) [Ratio] 48.6 kg/m2 Dr. Willard Henriquez Work Phone: [facility] 10-25-2023 10:15-0500 Body weight 120.[address] Willard Henriquez Work Phone: [facility] 10-25-2023 10:15-0500 Diastolic blood pressure 73 mm[Hg] Dr. Willard Henriquez Work Phone: 0(834)324-673304 [place] [address] 10-25-2023 10:15-0500 Heart rate 79 /min Dr. Willard Henriquez Work Phone: 6(343)842-014376 [place] [address] 10-25-2023 10:15-0500 Respiratory rate 20 /min Dr. Willard Henriquez Work Phone: 8(922)282-843876 [place] [address] 10-25-2023 10:15-0500 SaO2% (BldA) [Mass fraction] 99 % Dr. Willard Henriquez Work Phone: 3(056)326-437976 [place] [address] 10-25-2023 10:15-0500 Systolic blood pressure 128 mm[Hg] Dr. Willard Henriquez Work Phone: 7(560)551-324376 [place] [address] 10-10-2023 13:38-0500 Body height 157.[address] Willard Henriquez Work Phone: 7(964)481-906676 [place] [address] 10-10-2023 13:38-0500 Body mass index (BMI) [Ratio] 47.2 kg/m2 Dr. Willard Henriquez Work Phone: 7(981)655-718376 [place] [address] 10-10-2023 13:38-0500 Body temperature 98.7 [degF] Dr. Willard Henriquez Work Phone: 3(057)987-539576 [place] [address] 10-10-2023 13:38-0500 Body weight 117.[address] Willard Henriquez Work Phone: 7(398)946-604876 [place] [address] 10-10-2023 13:38-0500 Diastolic blood pressure 70 mm[Hg] Dr. Willard Henriquez Work Phone: 8(512)834-987076 [place] [address] 10-10-2023 13:38-0500 Heart rate 82 /min Dr. Willard Henriquez Work Phone: 2(597)147-368476 [place] [address] 10-10-2023 13:38-0500 Respiratory rate 18 /min Dr. Willard Henriquez Work Phone: 2(101)314-983376 [place] [address] 10-10-2023 13:38-0500 SaO2% (BldA) [Mass fraction] 97 % Dr. Willard Henriquez Work Phone: 4(288)517-327476 [place] [address] 10-10-2023 13:38-0500 Systolic blood pressure 150 mm[Hg] Dr. Willard Henriquez Work Phone: 7(944)595-317576 [place] [address] 07-21-2023 13:38-0500 Body height 157.[address] Willard Henriquez Work Phone: 1(595)293-084676 [place] [address] 07-21-2023 13:38-0500 Body mass index (BMI) [Ratio] 43.9 kg/m2 Dr. Willard Henriquez Work Phone: 8(380)875-219376 [place] [address] 07-21-2023 13:38-0500 Body temperature 96.6 [degF] Dr. Willard Henriquez Work Phone: 6(098)500-039376 [place] [address] 07-21-2023 13:38-0500 Body weight 108.[address] Willard Henriquez Work Phone: 1(905)719-498476 [place] [address] 07-21-2023 13:38-0500 Diastolic blood pressure 63 mm[Hg] Dr. Willard Henriquez Work Phone: 3(869)567-852176 [place] [address] 07-21-2023 13:38-0500 Heart rate 68 /min Dr. Willard Henriquez Work Phone: 6(291)460-733976 [place] [address] 07-21-2023 13:38-0500 Respiratory rate 16 /min Dr. Willard Henriquez Work Phone: 5(846)423-428776 [place] [address] 07-21-2023 13:38-0500 SaO2% (BldA) [Mass fraction] 100 % Dr. Willard Henriquez Work Phone: 9(007)068-573776 [place] [address] 07-21-2023 13:38-0500 Systolic blood pressure 128 mm[Hg] Dr. Willard Henriquez Work Phone: 9(176)938-228276 [place] [address] 06-08-2023 13:31-0400 Body mass index (BMI) [Ratio] 43.5 kg/m2 Dr. Willard Henriquez Work Phone: 4(771)053-551676 [place] [address] 06-08-2023 13:31-0400 Body temperature 98 [degF] Dr. Willard Henriquez Work Phone: 4(944)693-334976 [place] [address] 06-08-2023 13:31-0400 Body weight 108.[address] Willard Henriquez Work Phone: 7(969)088-329276 [place] [address] 06-08-2023 13:31-0400 Diastolic blood pressure 72 mm[Hg] Dr. Willard Henriquez Work Phone: 8(815)935-870976 [place] [address] 06-08-2023 13:31-0400 Heart rate 72 /min Dr. Willard Henriquez Work Phone: 6(139)347-752076 [place] [address] 06-08-2023 13:31-0400 Respiratory rate 16 /min Dr. Willard Henriquez Work Phone: 3(413)280-163976 [place] [address] 06-08-2023 13:31-0400 SaO2% (BldA) [Mass fraction] 97 % Dr. Willard Henriquez Work Phone: 0(772)167-910676 [place] [address] 06-08-2023 13:31-0400 Systolic blood pressure 126 mm[Hg] Dr. Willard Henriquez Work Phone: 0(904)336-181176 [place] [address] 04-26-2023 13:31-0400 Body height 157.[address] Willard Henriquez Work Phone: 9(883)685-317476 [place] [address] 04-26-2023 13:31-0400 Body mass index (BMI) [Ratio] 43 kg/m2 Dr. Willard Henriquez Work Phone: 8(348)845-371176 [place] [address] 04-26-2023 13:31-0400 Body weight 106.[address] Willard Henriquez Work Phone: 0(034)940-600876 [place] [address] 04-26-2023 13:31-0400 Diastolic blood pressure 75 mm[Hg] Dr. Willard Henriquez Work Phone: 0(358)269-850676 [place] [address] 04-26-2023 13:31-0400 Heart rate 77 /min Dr. Willard Henriquez Work Phone: 9(515)082-448876 [place] [address] 04-26-2023 13:31-0400 Respiratory rate 18 /min Dr. Willard Henriquez Work Phone: 5(035)619-713776 [place] [address] 04-26-2023 13:31-0400 SaO2% (BldA) [Mass fraction] 96 % Dr. Willard Henriquez Work Phone: [facility] 04-26-2023 13:31-0400 Systolic blood pressure 136 mm[Hg] Dr. Willard Henriquez Work Phone: [facility] 04-24-2023 13:35-0400 Body weight 108.41 kg Padmini Anguiano STOVE POLISHER.ENROLLMENT REPRESENTATIVE Work Phone: [facility] 04-24-2023 13:35-0400 Diastolic blood pressure 70 mm[Hg] Padmini Anguiano STOVE POLISHER.ENROLLMENT REPRESENTATIVE Work Phone: [facility] 04-24-2023 13:35-0400 Heart rate 84 /min Padmini Anguiano STOVE POLISHER.ENROLLMENT REPRESENTATIVE Work Phone: [facility] 04-24-2023 13:35-0400 Respiratory rate 16 /min Padmini Anguiano STOVE POLISHER.ENROLLMENT REPRESENTATIVE Work Phone: [facility] 04-24-2023 13:35-0400 Systolic blood pressure 128 mm[Hg] Padmini Anguiano [employer]OVE POLISHER.ENROLLMENT REPRESENTATIVE Work Phone: [facility] 04-06-2023 11:04-0400 Body mass index (BMI) [Ratio] 43.1 kg/m2 Dr. Willard Henriquez Work Phone: [facility] 04-06-2023 11:04-0400 Body temperature 97.5 [degF] Dr. Willard Henriquez Work Phone: [facility] 04-06-2023 11:04-0400 Body weight 107.[address] Willard Henriquez Work Phone: [facility] 04-06-2023 11:04-0400 Diastolic blood pressure 64 mm[Hg] Dr. Willard Henriquez Work Phone: [facility] 04-06-2023 11:04-0400 Heart rate 73 /min Dr. Willard Henriquez Work Phone: [facility] 04-06-2023 11:04-0400 Respiratory rate 16 /min Dr. Willard Henriquez Work Phone: [facility] 04-06-2023 11:04-0400 SaO2% (BldA) [Mass fraction] 98 % Dr. Willard Henriquez Work Phone: [facility] 04-06-2023 11:04-0400 Systolic blood pressure 140 mm[Hg] Dr. Willard Henriquez Work Phone: [facility] 02-20-2023 15:31-0400 Body weight 107.96 kg Willard Henriquez MD Work Phone: [facility] 02-20-2023 15:31-0400 Diastolic blood pressure 72 mm[Hg] Willard Henriquez MD Work Phone: [facility] 02-20-2023 15:31-0400 Heart rate 72 /min Willard Henriquez MD Work Phone: [facility] 02-20-2023 15:31-0400 Respiratory rate 16 /min Willard Henriquez MD Work Phone: [facility] 02-20-2023 15:31-0400 Systolic blood pressure 126 mm[Hg] Willard Henriquez MD Work Phone: [facility] 02-16-2023 13:52-0400 Diastolic blood pressure 54 mm[Hg] Pacc 2 Work Phone: [facility] 02-16-2023 13:52-0400 Systolic blood pressure 120 mm[Hg] Pacc 2 Work Phone: [facility] 02-16-2023 13:50-0400 Body height 157.5 cm Pacc 2 Work Phone: [facility] 02-16-2023 13:50-0400 Body weight 105.42 kg Pacc 2 Work Phone: [facility] 02-16-2023 13:50-0400 Heart rate 70 /min Pacc 2 Work Phone: [facility] 02-16-2023 13:50-0400 Respiratory rate 20 /min Pacc 2 Work Phone: [facility] 02-16-2023 13:50-0400 SaO2% (BldA) [Mass fraction] 97 % Pacc 2 Work Phone: [facility] 02-02-2023 14:09-0400 Body height 157.[address] Willard Henriquez Work Phone: [facility] 02-02-2023 14:09-0400 Body mass index (BMI) [Ratio] 44 kg/m2 Dr. Willard Henriquez Work Phone: 9(959)858-727476 [place] [address] 02-02-2023 14:09-0400 Body temperature 98 [degF] Dr. Willard Henriquez Work Phone: [facility] 02-02-2023 14:09-0400 Body weight 109.[address] Willard Henriquez Work Phone: 2(023)629-744904 [place] [address] 02-02-2023 14:09-0400 Diastolic blood pressure 74 mm[Hg] Dr. Willard Henriquez Work Phone: 7(726)590-779876 [place] [address] 02-02-2023 14:09-0400 Heart rate 72 /min Dr. Willard Henriquez Work Phone: [facility] 02-02-2023 14:09-0400 Respiratory rate 16 /min Dr. Willard Henriquez Work Phone: [facility] 02-02-2023 14:09-0400 SaO2% (BldA) [Mass fraction] 96 % Dr. Willard Henriquez Work Phone: [facility] 02-02-2023 14:09-0400 Systolic blood pressure 140 mm[Hg] Dr. Willard Henriquez Work Phone: [facility] 01-20-2023 13:33-0400 Body mass index (BMI) [Ratio] 44.8 kg/m2 Dr. Willard Henriquez Work Phone: 8(399)584-134504 [place] [address] 01-20-2023 13:33-0400 Body weight 111.[address] Willard Henriquez Work Phone: [facility] 01-20-2023 13:33-0400 Diastolic blood pressure 67 mm[Hg] Dr. Willard Henriquez Work Phone: [facility] 01-20-2023 13:33-0400 Heart rate 80 /min Dr. Willard Henriquez Work Phone: [facility] 01-20-2023 13:33-0400 Respiratory rate 18 /min Dr. Willard Henriquez Work Phone: [facility] 01-20-2023 13:33-0400 SaO2% (BldA) [Mass fraction] 95 % Dr. Willard Henriquez Work Phone: [facility] 01-20-2023 13:33-0400 Systolic blood pressure 161 mm[Hg] Dr. Willard Henriquez Work Phone: [facility] 11-07-2022 11:14-0500 Diastolic blood pressure 73 mm[Hg] Pacc 2 Work Phone: [facility] 11-07-2022 11:14-0500 Systolic blood pressure 163 mm[Hg] Pacc 2 Work Phone: [facility] 11-07-2022 11:13-0500 Body height 157.5 cm Pacc 2 Work Phone: [facility] 11-07-2022 11:13-0500 Body weight 110.68 kg Pacc 2 Work Phone: [facility] 11-07-2022 11:13-0500 Heart rate 77 /min Pacc 2 Work Phone: [facility] 11-07-2022 11:13-0500 Respiratory rate 20 /min Pacc 2 Work Phone: [facility] 11-07-2022 11:13-0500 SaO2% (BldA) [Mass fraction] 97 % Pacc 2 Work Phone: [facility] 10-24-2022 14:05-0500 Body weight 109.77 kg Willard Henriquez MD Work Phone: [facility] 10-24-2022 14:05-0500 Diastolic blood pressure 74 mm[Hg] Willard Henriquez MD Work Phone: [facility] 10-24-2022 14:05-0500 Heart rate 70 /min Willard Henriquez MD Work Phone: [facility] 10-24-2022 14:05-0500 Respiratory rate 16 /min Willard Henriquez MD Work Phone: [facility] 10-24-2022 14:05-0500 Systolic blood pressure 124 mm[Hg] Willard Henriquez MD Work Phone: [facility] 09-22-2022 14:20-0500 Body height 157.[address] Willard Henriquez Work Phone: [facility] 09-22-2022 14:20-0500 Body mass index (BMI) [Ratio] 46 kg/m2 Dr. Willard Henriquez Work Phone: 8(312)446-185904 [place] [address] 09-22-2022 14:20-0500 Body temperature 95.9 [degF] Dr. Willard Henriquez Work Phone: 5(058)587-018104 [place] [address] 09-22-2022 14:20-0500 Body weight 114.[address] Willard Henriquez Work Phone: 2(339)080-002204 [place] [address] 09-22-2022 14:20-0500 Diastolic blood pressure 77 mm[Hg] Dr. Willard Henriquez Work Phone: 9(588)738-840204 [place] [address] 09-22-2022 14:20-0500 Heart rate 66 /min Dr. Willard Henriquez Work Phone: [facility] 09-22-2022 14:20-0500 Respiratory rate 20 /min Dr. Willard Henriquez Work Phone: 0(725)057-924404 [place] [address] 09-22-2022 14:20-0500 SaO2% (BldA) [Mass fraction] 95 % Dr. Willard Henriquez Work Phone: 1(271)907-984876 [place] [address] 09-22-2022 14:20-0500 Systolic blood pressure 146 mm[Hg] Dr. Willard Henriquez Work Phone: 3(104)051-012576 [place] [address] 08-16-2022 13:57-0500 Body mass index (BMI) [Ratio] 43.3 kg/m2 Dr. Willard Henriquez Work Phone: 8(942)474-931876 [place] [address] 08-16-2022 13:57-0500 Body weight 107.[address] Willard Henriquez Work Phone: 7(644)136-815876 [place] [address] 08-16-2022 13:57-0500 Diastolic blood pressure 66 mm[Hg] Dr. Willard Henriquez Work Phone: 1(148)789-083176 [place] [address] 08-16-2022 13:57-0500 Heart rate 59 /min Dr. Willard Henriquez Work Phone: 6(552)747-163376 [place] [address] 08-16-2022 13:57-0500 Respiratory rate 18 /min Dr. Willard Henriquez Work Phone: 4(948)035-427076 [place] [address] 08-16-2022 13:57-0500 SaO2% (BldA) [Mass fraction] 99 % Dr. Willard Henriquez Work Phone: 8(699)526-507076 [place] [address] 08-16-2022 13:57-0500 Systolic blood pressure 138 mm[Hg] Dr. Willard Henriquez Work Phone: 1(947)548-791276 [place] [address] 07-22-2022 13:47-0500 Body height 157.[address] Willard Henriquez Work Phone: 2(057)209-994276 [place] [address] Work Phone: 07-22-2022 13:47-0500 Body temperature 96.8 [degF] Dr. Willard Henriquez Work Phone: 5(179)277-518576 [place] [address] 07-22-2022 13:47-0500 Diastolic blood pressure 56 mm[Hg] Dr. Willard Henriquez Work Phone: 3(861)229-584976 [place] [address] 07-22-2022 13:47-0500 Heart rate 79 /min Dr. Willard Henriquez Work Phone: [facility] 07-22-2022 13:47-0500 Respiratory rate 16 /min Dr. Willard Henriquez Work Phone: [facility] 07-22-2022 13:47-0500 SaO2% (BldA) [Mass fraction] 97 % Dr. Willard Henriquez Work Phone: [facility] 07-22-2022 13:47-0500 Systolic blood pressure 136 mm[Hg] Dr. Willard Henriquez Work Phone: [facility] 05-26-2022 14:04-0400 Body mass index (BMI) [Ratio] 44.9 kg/m2 Dr. Willard Henriquez Work Phone: [facility] Work Phone: 05-26-2022 14:04-0400 Body temperature 94.4 [degF] Dr. Willard Henriquez Work Phone: [facility] Work Phone: 05-26-2022 14:04-0400 Body weight 111.[address] Willard Henriquez Work Phone: [facility] Work Phone: 05-26-2022 14:04-0400 Diastolic blood pressure 68 mm[Hg] Dr. Willard Henriquez Work Phone: [facility] Work Phone: 05-26-2022 14:04-0400 Heart rate 65 /min Dr. Willard Henriquez Work Phone: [facility] Work Phone: 05-26-2022 14:04-0400 Respiratory rate 20 /min Dr. Willard Henriquez Work Phone: [facility] Work Phone: 05-26-2022 14:04-0400 SaO2% (BldA) [Mass fraction] 97 % Dr. Willard Henriquez Work Phone: [facility] Work Phone: 05-26-2022 14:04-0400 Systolic blood pressure 120 mm[Hg] Dr. Willard Henriquez Work Phone: [facility] Work Phone: 05-24-2022 11:15-0400 Body temperature 98.7 [degF] Dr. Willard Henriquez Work Phone: [facility] Work Phone: 05-24-2022 11:15-0400 Diastolic blood pressure 60 mm[Hg] Dr. Willard Henriquez Work Phone: [facility] Work Phone: 05-24-2022 11:15-0400 Heart rate 70 /min Dr. Willard Henriquez Work Phone: [facility] Work Phone: 05-24-2022 11:15-0400 Respiratory rate 96 /min Dr. Willard Henriquez Work Phone: [facility] Work Phone: 05-24-2022 11:15-0400 SaO2% (BldA) [Mass fraction] 95 % Dr. Willard Henriquez Work Phone: [facility] Work Phone: 05-24-2022 11:15-0400 Systolic blood pressure 117 mm[Hg] Dr. Willard Henriquez Work Phone: [facility] Work Phone: 05-24-2022 09:39-0400 Body height 157.[address] Willard Henriquez Work Phone: [facility] Work Phone: 05-24-2022 09:39-0400 Body mass index (BMI) [Ratio] 44 kg/m2 Dr. Willard Henriquez Work Phone: [facility] Work Phone: 05-24-2022 09:39-0400 Body weight 109.[address] Willard Henriquez Work Phone: [facility] Work Phone: 04-26-2022 13:11-0400 Body mass index (BMI) [Ratio] 43.9 kg/m2 Dr. Willard Henriquez Work Phone: [facility] Work Phone: 04-26-2022 13:11-0400 Body temperature 97.2 [degF] Dr. Willard Henriquez Work Phone: [facility] Work Phone: 04-26-2022 13:11-0400 Body weight 109.[address] Willard Henriquez Work Phone: [facility] Work Phone: 04-26-2022 13:11-0400 Diastolic blood pressure 75 mm[Hg] Dr. Willard Henriquez Work Phone: [facility] Work Phone: 04-26-2022 13:11-0400 Heart rate 81 /min Dr. Willard Henriquez Work Phone: [facility] Work Phone: 04-26-2022 13:11-0400 Respiratory rate 17 /min Dr. Willard Henriquez Work Phone: [facility] Work Phone: 04-26-2022 13:11-0400 SaO2% (BldA) [Mass fraction] 98 % Dr. Willard Henriquez Work Phone: [facility] Work Phone: 04-26-2022 13:11-0400 Systolic blood pressure 136 mm[Hg] Dr. Willard Henriquez Work Phone: [facility] Work Phone: 04-06-2022 16:07-0400 Body height 157.5 cm Willard Henriquez MD Work Phone: [facility] 04-06-2022 16:07-0400 Body weight 112.49 kg Willard Henriquez MD Work Phone: [facility] 04-06-2022 16:07-0400 Diastolic blood pressure 84 mm[Hg] Willard Henriquez MD Work Phone: [facility] 04-06-2022 16:07-0400 Heart rate 84 /min Willard Henriquez MD Work Phone: [facility] 04-06-2022 16:07-0400 Respiratory rate 16 /min Willard Henriquez MD Work Phone: [facility] 04-06-2022 16:07-0400 Systolic blood pressure 122 mm[Hg] Willard Henriquez MD Work Phone: [facility] 02-24-2022 14:25-0400 Body height 157.[address] Willard Henriquez Work Phone: [facility] Work Phone: 02-24-2022 14:25-0400 Body mass index (BMI) [Ratio] 47.2 kg/m2 Dr. Willard Henriquez Work Phone: [facility] Work Phone: 02-24-2022 14:25-0400 Body weight 117.[address] Willard Henriquez Work Phone: [facility] Work Phone: 02-24-2022 14:25-0400 Diastolic blood pressure 63 mm[Hg] Dr. Willard Henriquez Work Phone: [facility] Work Phone: 02-24-2022 14:25-0400 Heart rate 73 /min Dr. Willard Henriquez Work Phone: [facility] Work Phone: 02-24-2022 14:25-0400 Respiratory rate 18 /min Dr. Willard Henriquez Work Phone: [facility] Work Phone: 02-24-2022 14:25-0400 Systolic blood pressure 113 mm[Hg] Dr. Willard Henriquez Work Phone: [facility] Work Phone: 02-22-2022 13:06-0400 Body temperature 96 [degF] Dr. Willard Henriquez Work Phone: [facility] Work Phone: 02-22-2022 13:06-0400 Body weight 117.[address] Willard Henriquez Work Phone: [facility] Work Phone: 02-22-2022 13:06-0400 Diastolic blood pressure 80 mm[Hg] Dr. Willard Henriquez Work Phone: [facility] Work Phone: 02-22-2022 13:06-0400 Heart rate 84 /min Dr. Willard Henriquez Work Phone: [facility] Work Phone: 02-22-2022 13:06-0400 Respiratory rate 18 /min Dr. Willard Henriquez Work Phone: [facility] Work Phone: 02-22-2022 13:06-0400 SaO2% (BldA) [Mass fraction] 98 % Dr. Willard Henriquez Work Phone: [facility] Work Phone: 02-22-2022 13:06-0400 Systolic blood pressure 144 mm[Hg] Dr. Willard Henriquez Work Phone: [facility] Work Phone: 02-14-2022 12:37-0400 Body mass index (BMI) [Ratio] 46.4 kg/m2 Dr. Willard Henriquez Work Phone: [facility] Work Phone: 02-14-2022 12:37-0400 Body temperature 97.5 [degF] Dr. Willard Henriquez Work Phone: [facility] Work Phone: 02-14-2022 12:37-0400 Body weight 115.[address] Willard Henriquez Work Phone: [facility] Work Phone: 02-14-2022 12:37-0400 Diastolic blood pressure 82 mm[Hg] Dr. Willard Henriquez Work Phone: [facility] Work Phone: 02-14-2022 12:37-0400 Heart rate 87 /min Dr. Willard Henriquez Work Phone: [facility] Work Phone: 02-14-2022 12:37-0400 Respiratory rate 17 /min Dr. Willard Henriquez Work Phone: [facility] Work Phone: 02-14-2022 12:37-0400 SaO2% (BldA) [Mass fraction] 94 % Dr. Willard Henriquez Work Phone: [facility] Work Phone: 02-14-2022 12:37-0400 Systolic blood pressure 123 mm[Hg] Dr. Willard Henriquez Work Phone: [facility] Work Phone: 01-24-2022 13:57-0400 Body weight 115.12 kg Za Stearns [employer]OVE POLISHER.ENROLLMENT REPRESENTATIVE Work Phone: [facility] 01-24-2022 13:25-0400 Diastolic blood pressure 72 mm[Hg] Za Haagen [employer] POLISHER.ENROLLMENT REPRESENTATIVE Work Phone: [facility] 01-24-2022 13:25-0400 Heart rate 89 /min Za Haagen STOVE POLISHER.ENROLLMENT REPRESENTATIVE Work Phone: [facility] 01-24-2022 13:25-0400 Respiratory rate 18 /min Za Haagen STOVE POLISHER.ENROLLMENT REPRESENTATIVE Work Phone: [facility] 01-24-2022 13:25-0400 SaO2% (BldA) [Mass fraction] 98 % Za Stearns [employer]OVE POLISHER.ENROLLMENT REPRESENTATIVE Work Phone: [facility] 01-24-2022 13:25-0400 Systolic blood pressure 124 mm[Hg] Za Stearns APRN.ENROLLMENT REPRESENTATIVE Work Phone: [facility] 01-20-2022 13:34-0400 Body height 157.[address] Willard Henriquez Work Phone: [facility] Work Phone: 01-20-2022 13:34-0400 Body mass index (BMI) [Ratio] 46.4 kg/m2 Dr. Willard Henriquez Work Phone: [facility] Work Phone: 01-20-2022 13:34-0400 Body weight 115.[address] Willard Henriquez Work Phone: [facility] Work Phone: 01-20-2022 13:34-0400 Diastolic blood pressure 67 mm[Hg] Dr. Willard Henriquez Work Phone: [facility] Work Phone: 01-20-2022 13:34-0400 Heart rate 85 /min Dr. Willard Henriquez Work Phone: [facility] Work Phone: 01-20-2022 13:34-0400 Respiratory rate 14 /min Dr. Willard Henriquez Work Phone: [facility] Work Phone: 01-20-2022 13:34-0400 SaO2% (BldA) [Mass fraction] 94 % Dr. Willard Henriquez Work Phone: [facility] Work Phone: 01-20-2022 13:34-0400 Systolic blood pressure 120 mm[Hg] Dr. Willard Henriquez Work Phone: [facility] Work Phone: 12-20-2021 14:37-0400 Body mass index (BMI) [Ratio] 47.5 kg/m2 Dr. Willard Henriquez Work Phone: [facility] Work Phone: 12-20-2021 14:37-0400 Body temperature 94.9 [degF] Dr. Willard Henriquez Work Phone: [facility] Work Phone: 12-20-2021 14:37-0400 Body weight 117.[address] Willard Henriquez Work Phone: [facility] Work Phone: 12-20-2021 14:37-0400 Diastolic blood pressure 78 mm[Hg] Dr. Willard Henriquez Work Phone: [facility] Work Phone: 12-20-2021 14:37-0400 Heart rate 100 /min Dr. Willard Henriquez Work Phone: [facility] Work Phone: 12-20-2021 14:37-0400 Respiratory rate 18 /min Dr. Willard Henriquez Work Phone: [facility] Work Phone: 12-20-2021 14:37-0400 SaO2% (BldA) [Mass fraction] 100 % Dr. Willard Henriquez Work Phone: [facility] Work Phone: 12-20-2021 14:37-0400 Systolic blood pressure 140 mm[Hg] Dr. Willard Henriquez Work Phone: [facility] Work Phone: 12-20-2021 14:37-0400 Body mass index (BMI) [Ratio] 47.5 kg/m2 Dr. Willard Henriquez Work Phone: [facility] Work Phone: 12-20-2021 14:37-0400 Body temperature 94.9 [degF] Dr. Willard Henriquez Work Phone: [facility] Work Phone: 12-20-2021 14:37-0400 Body weight 117.[address] Willard Henriquez Work Phone: [facility] Work Phone: 12-20-2021 14:37-0400 Diastolic blood pressure 78 mm[Hg] Dr. Willard Henriquez Work Phone: [facility] Work Phone: 12-20-2021 14:37-0400 Heart rate 100 /min Dr. Willard Henriquez Work Phone: [facility] Work Phone: 12-20-2021 14:37-0400 Respiratory rate 18 /min Dr. Willard Henriquez Work Phone: [facility] Work Phone: 12-20-2021 14:37-0400 SaO2% (BldA) [Mass fraction] 100 % Dr. Willard Henriquez Work Phone: [facility] Work Phone: 12-20-2021 14:37-0400 Systolic blood pressure 140 mm[Hg] Dr. Willard Henriquez Work Phone: [facility] Work Phone: 10-15-2021 10:13-0500 Body height 157.[address] Porfirio Garzon III Work Phone: [facility] Work Phone: 10-15-2021 10:13-0500 Body mass index (BMI) [Ratio] 48.4 kg/m2 Dr. Porfirio Garzon III Work Phone: [facility] Work Phone: 10-15-2021 10:13-0500 Body temperature 95 [degF] Dr. Porfirio Garzon III Work Phone: [facility] Work Phone: 10-15-2021 10:13-0500 Body weight 120.[address] Porfirio Garzon III Work Phone: [facility] Work Phone: 10-15-2021 10:13-0500 Diastolic blood pressure 86 mm[Hg] Dr. Porfirio Garzon III Work Phone: [facility] Work Phone: 10-15-2021 10:13-0500 Heart rate 96 /min Dr. Porfirio Garzon III Work Phone: [facility] Work Phone: 10-15-2021 10:13-0500 Respiratory rate 18 /min Dr. Porfirio Garzon III Work Phone: [facility] Work Phone: 10-15-2021 10:13-0500 SaO2% (BldA) [Mass fraction] 98 % Dr. Porfirio Garzon III Work Phone: [facility] Work Phone: 10-15-2021 10:13-0500 Systolic blood pressure 150 mm[Hg] Dr. Porfirio Garzon III Work Phone: [facility] Work Phone: 08-19-2021 14:34-0500 Body weight 126.[address] Porfirio Garzon III Work Phone: [facility] Work Phone: 08-19-2021 14:34-0500 Diastolic blood pressure 88 mm[Hg] Dr. Porfirio Garzon III Work Phone: [facility] Work Phone: 08-19-2021 14:34-0500 Heart rate 68 /min Dr. Porfirio Garzon III Work Phone: [facility] Work Phone: 08-19-2021 14:34-0500 Respiratory rate 18 /min Dr. Porfirio Garzon III Work Phone: [facility] Work Phone: 08-19-2021 14:34-0500 Systolic blood pressure 140 mm[Hg] Dr. Porfirio Garzon III Work Phone: [facility] Work Phone: 06-22-2021 16:00-0400 Diastolic Blood Pressure NBP 79 1 WILLARD CHUNG DO [facility] 06-22-2021 16:00-0400 Heart rate 87 /min WILLARD CHUNG DO [facility] 06-22-2021 16:00-0400 Reason For Taking VItal Signs WILLARD CHUNG DO [facility] 06-22-2021 16:00-0400 Respiratory rate 16 /min WILLARD CHUNG DO [facility] 06-22-2021 16:00-0400 Systolic Blood Pressure NBP 152 1 WILLARD CHUNG DO [facility] 06-22-2021 15:30-0400 Diastolic Blood Pressure NBP 62 1 WILLARD CHUNG DO [facility] 06-22-2021 15:30-0400 Heart rate 83 /min WILLARD CHUNG DO [facility] 06-22-2021 15:30-0400 Respiratory rate 12 /min WILLARD CHUNG DO [facility] 06-22-2021 15:30-0400 Systolic Blood Pressure NBP 113 1 WILLARD CHUNG DO [facility] 06-22-2021 15:15-0400 Diastolic Blood Pressure NBP 69 1 WILLARD CHUNG DO [facility] 06-22-2021 15:15-0400 Heart rate 81 /min WILLARD CHUNG DO [facility] 06-22-2021 15:15-0400 Respiratory rate 19 /min [facility]G [facility] [facility] 06-22-2021 15:15-0400 Systolic Blood Pressure NBP 128 1 WILLARD CHUNG DO [facility] 06-22-2021 15:00-0400 Heart rate 88 /min WILLARD CHUNG DO [facility] 06-22-2021 14:07-0400 Body temperature 96.62 [degF] WILLARD CHUNG DO [facility] 06-22-2021 13:55-0400 Body temperature 97.57 [degF] WILLADR CHUNG DO [facility] 06-22-2021 13:50-0400 Body temperature 97.63 [degF] WILLARD CHUNG DO [facility] 06-22-2021 13:45-0400 Body temperature 97.68 [degF] WILLARD CHUNG DO [facility] 06-22-2021 12:21-0400 Body temperature 97.88 [degF] WILLARD CHUNG DO [facility] 06-22-2021 12:21-0400 Heart rate 116 /min WILLARD CHUNG DO [facility] 12-02-2020 15:09-0400 Body mass index (BMI) [Ratio] 47.9 kg/m2 Dr. Porfirio Grazon III Work Phone: [facility] Work Phone: Encounters Encounter Date Encounter Type Care Provider Facility Start: 03-05-2025 ambulatory Willard Henriquez Facility :[facility] Start: 02-18-2025 ambulatory Ata Portillo Facility :[facility] Start: 02-06-2025 End: 02-07-2025 Refill Padmini Anguiano APRN.CNP Work Phone: [facility] Comment on above: Refill Request Start: 01-31-2025 End: 01-31-2025 Ophthalmic examination and evaluation Willard Henriquez MD Work Phone: [facility] Start: 01-31-2025 End: 01-31-2025 Patient encounter procedure Willard Henriquez MD Work Phone: [facility] Comment on above: Type 2 diabetes melodie itus with stage 3a chronic kidney disease, with long-term current use of insulin (HCC) (Primary Dx); Diabetic eye exam (HCC); Hypertension, essential; Hyperlipidemia, mixed; Gastroesophageal reflux disease, unspecified whether esophagitis present; Iron deficiency anemia, unspecified iron deficiency anemia type; Bilateral carotid artery stenosis; ASHD (arteriosclerotic heart disease); Acute on chronic diastolic congestive heart failure (HCC); Postsurgical hypothyroidism; Stage 3a chronic kidney disease (HCC); Mild intermittent asthma without complication (HCC); Temporal arteritis (HCC); Morbid obesity due to excess calories (HCC); Postherpetic neuralgia; Vitamin B12 deficiency; Vitamin D deficiency; Lumbar radiculopathy; Spinal stenosis, lumbar region, with neurogenic claudication; Multiple subsegmental pulmonary emboli without acute cor pulmonale (HCC); Audible heartbeat in right ear; Bacterial sinusitis; Burning sensation of lower extremity Start: 01-31-2025 End: 01-31-2025 ambulatory WILLARD HENRIQUEZ Facility:[facility] Start: 01-30-2025 End: 01-30-2025 Chart abstracting Willard Henriquez MD Work Phone: [facility] [place] Comment on above: Outside Echo Start: 01-29-2025 End: 01-29-2025 Chart abstracting Willard Henriquez MD Work Phone: Family [facility] [place] Comment on above: Outside Endocrinolog y Start: 01-28-2025 ambulatory Dong Alegria [facility] Start: 01-28-2025 End: 01-28-[address] Willard Henriquez MD Work Phone: [facility] Work Phone: Start: 01-28-2025 End: 01-28-2025 Dr. Dong Alegria MD -[facility] Start: 01-28-2025 End: 01-28-2025 ambulatory Robert [facility] Facility:[facility] Start: 01-21-2025 End: 01-21-2025 Chart abstracting Willard Henriquez MD Work Phone: [facility] [place] Comment on above: Outside Jhas-Wtg-RLT Ordered Start: 01-20-2025 End: 01-20-2025 Dr. Jorje Marques MD -[facility] Work Phone: Start: 01-20-2025 End: 01-20-[address] Willard Henriquez MD Work Phone: [facility] Work Phone: Start: 01-17-2025 End: 01-17-2025 Chart abstracting Willard Henriquez MD Work Phone: [facility] [place] Comment on above: Outside Zcli-Esc-CCY Ordered Start: 01-17-2025 End: 01-17-[address] Willard Henriquez MD Work Phone: [facility] Work Phone: Start: 01-17-2025 End: 01-17-2025 Shelli Petit OIL REFINERY OPERATOR-C -Laboratory Specimen Work Phone: Start: 01-16-2025 End: 01-16-[address] Willard Henriquez MD Work Phone: [facility] Work Phone: Start: 01-16-2025 End: 01-16-2025 Shelli Petit OIL REFINERY OPERATOR-C -Laboratory Work Phone: Start: 01-16-2025 End: 01-16-2025 Shelli Petit OIL REFINERY OPERATOR-C -[facility] Work Phone: Start: 01-16-2025 End: 01-17-[address] Willard Henriquez MD Work Phone: [facility] Work Phone: Start: 01-16-2025 End: 01-16-2025 ambulatory Shelli Petit Facility:[facility] Start: 01-13-2025 End: 01-13-2025 [facility] [place] Start: 01-13-2025 End: 01-13-2025 Patient encounter procedure Silke Erazo MA [facility] [place] Comment on above: Population Health Na vigation Outreach [facility] Start: 01-10-2025 End: 01-10-2025 Office outpatient visit 15 minutes Phillip Whelan MD Work Phone: [facility] Comment on above: 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 [place] Comment on above: Outside Pulmonary Start: 01-09-2025 End: 01-09-2025 Cathy Darling OIL REFINERY OPERATOR-C -[facility] Work Phone: Start: 01-09-2025 End: 01-09-2025 ambulatory Cathy Darling Facility:[facility] Start: 01-06-2025 End: 01-08-2025 Follow-up encounter Willard Henriquez MD Work Phone: Family [facility] [place] Start: 01-03-2025 End: 01-03-2025 ambulatory WILLARD HENRIQUEZ Facility:[facility] Start: 01-03-2025 End: 01-03-2025 Patient encounter procedure Willard Henriquez MD Work Phone: [facility] [place] Comment on above: Multiple subsegmenta l pulmonary emboli without acute cor pulmonale (HCC) (Primary Dx); Anemia, unspecified type; SOB (shortness of breath); Atypical chest pain; Palpitations Start: 01-03-2025 End: 01-03-2025 ambulatory WILLARD HENRIQUEZ Facility:[facility] Start: 01-02-2025 End: 01-02-2025 Chart abstracting Willard Henriquez MD Work Phone: [facility] [place] Comment on above: Outside Bgaa-Cbi-VTE Ordered Start: 01-01-2025 End: 01-01-2025 Chart abstracting Willard Henriquez MD Work Phone: [facility] [place] Comment on above: Outside Cardiology ( Labs) Start: 01-01-2025 End: 01-01-2025 Robert Cheng OIL REFINERY OPERATOR-C -Laboratory Work Phone: Start: 01-01-2025 End: 01-01-2025 Robert Cheng OIL REFINERY OPERATOR-C -[facility] Work Phone: Start: 01-01-2025 End: 01-01-2025 ambulatory Robert Cheng Facility:[facility] Start: 12-31-2024 End: 01-01-2025 Refgustavo Anguiano APRN.ENROLLMENT REPRESENTATIVE Work Phone: [facility] Comment on above: Refill Request Start: 12-17-2024 End: 12-17-2024 Dr. Willard Henriquez MD Work Phone: -Emergency Department Work Phone: Start: 12-17-2024 End: 12-17-2024 Emergency department patient visit Dr. Willard Henriquez MD Work Phone: [facility] Work Phone: Start: 12-12-2024 End: 12-12-[address] Willard Henriquez MD Work Phone: [facility] Work Phone: Start: 12-12-2024 End: 12-12-[address] Nikki Dangelo MD -Laboratory, [place] Work Phone: Start: 12-12-2024 End: 12-12-2024 Dr. Nikki Dangelo MD -Laboratory, [place] Work Phone: Start: 12-12-2024 End: 12-12-2024 ambulatory Nikki Dangelo Facility:[facility] Start: 12-05-2024 End: 12-05-2024 Patient encounter procedure Padmini Anguiano STOVE POLISHER.ENROLLMENT REPRESENTATIVE Work Phone: [facility] Comment on above: Acute pulmonary embo lism, unspecified pulmonary embolism type, unspecified whether acute cor pulmonale present (HCC) (Primary Dx) Start: 12-05-2024 End: 12-05-2024 ambulatory PADMINI ANGUIANO Facility:[facility] Start: 12-05-2024 ambulatory David Florez Facility:[facility] Start: 12-05-2024 Non-patient / Non-visit Dr. David fountain DO -[facility] Start: 12-05-2024 Dr. David Florez DO -[facility] Start: 12-04-2024 End: 12-04-2024 Chart abstracting Kay Newman [facility] Comment on above: ER F/U ([facility] ER ) Consult Start: 12-03-2024 End: 12-03-[address] Willard Henriquez MD Work Phone: [facility] Work Phone: Start: 12-03-2024 End: 12-03-2024 Patient encounter procedure Cathy Darling NP-C -Sleep Lab Work Phone: Start: 12-03-2024 End: 12-03-2024 Cathy Darling OIL REFINERY OPERATOR-C -Sleep Lab Work Phone: Start: 12-03-2024 End: 12-03-2024 ambulatory Cathy Darling Facility:[facility] Start: 11-29-2024 End: 11-29-2024 Dr. Glen Vital MD -Emergency [facility] Work Phone: Start: 11-29-2024 End: 11-29-2024 Emergency department patient visit Dr. Willard Henriquez MD Work Phone: -Emergency Department Work Phone: Start: 11-29-2024 End: 11-29-2024 Patient encounter procedure Willard Henriquez MD Work Phone: [facility] Comment on above: Acute on chronic meera stolic congestive heart failure (HCC) (Primary Dx); ASHD (arteriosclerotic heart disease); Orthopnea; Stage 3a chronic kidney disease (HCC); Mild intermittent asthma without complication; MIRAMONTES (dyspnea on exertion) Start: 11-29-2024 End: 11-29-2024 ambulatory WILLARD HENRIQUEZ Facility:[facility] Start: 11-28-2024 End: 11-28-2024 Chart abstracting Willard Henriquez MD Work Phone: [facility] [place] Start: 11-27-2024 End: 11-27-2024 Patient encounter procedure Cathy Darling NP-C -[facility] Work Phone: Start: 11-27-2024 End: 11-27-2024 Cathy Darling NP-C -[facility] Work Phone: Start: 11-27-2024 End: 11-27-2024 ambulatory Cathy Darling Facility:[facility] Start: 11-21-2024 End: 11-21-2024 Telephone encounter Willard Henriquez MD Work Phone: [facility] Comment on above: Lab Orders Start: 11-21-2024 End: 11-21-2024 ambulatory WILLARD HENRIQUEZ Facility:[facility] Start: 11-20-2024 End: 11-20-2024 Chart abstracting Kay Newman [facility] [address] [facility] Comment on above: Consult (Outside End ocrinology /) Start: 11-11-2024 End: 11-11-[address] Jorje Marques MD -[facility] Work Phone: Start: 11-11-2024 End: 11-11-2024 Dr. Jorje Marques MD -[facility] Work Phone: Start: 11-11-2024 End: 11-11-2024 ambulatory Jorje Marques Facility:[facility] Start: 11-04-2024 End: 11-04-2024 Chart abstracting Kay Newman MA [facility] [address] Comment on above: Results (Outside lab results /) Start: 10-31-2024 End: 10-31-[address] Willard Henriquez MD Work Phone: [facility] Work Phone: Start: 10-31-2024 End: 10-31-[address] Nikki Dangelo MD -Laboratory, [place] Work Phone: Start: 10-31-2024 End: 10-31-2024 Dr. Nikki Dangelo MD -Laboratory, [place] Work Phone: Start: 10-31-2024 End: 10-31-2024 ambulatory Nikki Dangelo Facility:[facility] Start: 10-23-2024 End: 10-23-2024 Chart abstracting Kay Newman MA [facility] [address] Comment on above: Consult (Outside car diology /) Start: 10-23-2024 End: 10-23-[address] Jericho Cervantes MD -[place] [facility] Work Phone: Start: 10-23-2024 End: 10-23-2024 Dr. Jericho Cervantes MD -[facility] Work Phone: Start: 10-23-2024 End: 10-23-2024 ambulatory Jericho Cervantes Facility:[facility] Start: 10-01-2024 End: 10-01-2024 Chart abstracting Willard Henriquez MD Work Phone: [facility] Comment on above: Outside Duvb-Xnz-YRX Ordered Start: 09-30-2024 End: 09-30-[address] Nikki Dangelo MD -Laboratory, [place] Work Phone: Start: 09-30-2024 End: 09-30-2024 Dr. Nikki Dangelo MD -Labor[facility], [place] Work Phone: Start: 09-30-2024 End: 09-30-2024 ambulatory [facility] Facility:[facility] Start: 08-12-2024 End: 08-12-2024 Refill Willard Henriquez MD Work Phone: [facility] Comment on above: Refill Request Start: 08-02-2024 End: 08-02-2024 Chart abstracting Kay Newman MA [facility] Comment on above: Results (Outside lab s /) Start: 07-31-2024 End: 07-31-[address] Nikki Dangelo MD -Laboratory Work Phone: Start: 07-31-2024 End: 07-31-2024 ambulatory [facility] Facility:[facility] Start: 07-17-2024 ambulatory [facility] Facility :[facility] Start: 07-08-2024 End: 07-08-2024 ambulatory [facility] Facility:[facility] Start: 07-08-2024 End: 07-08-2024 Chart abstracting Willard Henriquez MD Work Phone: [facility] Comment on above: Outside Xgzs-Stu-RHT Ordered Start: 07-05-2024 End: 07-05-2024 ambulatory [facility] Facility:[facility] Start: 07-03-2024 End: 07-08-2024 ambulatory Willard Henriquez MD Work Phone: Internal Medicine [place] [id number] Start: 07-03-2024 Patient encounter procedure Willard Henriquez MD Work Phone: [facility] Start: 07-03-2024 End: 07-03-2024 Telephone encounter Willard Henriquez MD Work Phone: [address] [place] [address] Comment on above: Results Start: 06-13-2024 End: 06-13-2024 Chart abstracting Willard Henriquez MD Work Phone: [facility] Comment on above: Outside Ohsg-Qlg-MFZ Ordered Start: 06-12-2024 End: 06-12-2024 ambulatory [facility] Facility:[facility] Start: 06-03-2024 End: 06-03-2024 Telephone encounter Padmini Anguiano APRN.CNP Work Phone: [facility] Comment on above: Results Start: 05-31-2024 End: 05-31-2024 Patient encounter procedure Padmini Anguiano APRN.CNP Work Phone: [facility] Comment on above: Postsurgical hypothy roidism (Primary Dx); Screening for depression; Encounter for screening examination for other mental health and behavioral disorders; Uncontrolled type 2 diabetes mellitus with hyperglycemia ([facility]); Lumbar radiculopathy; Hypertension, essential; Hyperlipidemia, mixed; ASHD (arteriosclerotic heart disease); Stage 3a chronic kidney disease (HCC); Type 2 diabetes mellitus with stage 3a chronic kidney disease, with long-term current use of insulin (HCC); Gastroesophageal reflux disease, unspecified whether esophagitis present; NATALIE (obstructive sleep apnea); Mild intermittent asthma without complication; Advance directive discussed with patient; Encounter for Medicare annual wellness exam; Morbid obesity due to excess calories ([facility]); Vitamin D deficiency; DDD (degenerative disc disease), lumbar; Osteoarthritis of both knees, unspecified osteoarthritis type; Obesity, Class III, BMI >= 40 Start: 05-31-2024 End: 05-31-2024 ambulatory PADMINI ANGUIANO Facility:[facility] Start: 05-28-2024 End: 05-28-2024 ambulatory PADMINI ANGUIANO Facility:[facility] Start: 05-28-2024 End: 05-28-2024 ambulatory Cathymorgan Darling Facility:[facility] Start: 05-18-2024 End: 05-20-2024 Refill Jesica Sierra PA-C Work Phone: [facility] Comment on above: Refill Request Start: 05-17-2024 End: 05-17-2024 Chart abstracting Willard Henriquez MD Work Phone: [facility] [place] Comment on above: ER Discharge Summary Start: 05-10-2024 End: 05-10-2024 Chart abstracting Willard Henriquez MD Work Phone: [facility] [place] Comment on above: Outside Rheumatology Start: 05-09-2024 ambulatory Yaya Anushka [facility] Start: 05-09-2024 End: 05-09-2024 Emergency department patient visit Willard Henriquez Facility:[facility] Start: 05-09-2024 End: 05-09-2024 Patient encounter procedure Padmini Anguiano APRN.ENROLLMENT REPRESENTATIVE Work Phone: [facility] Comment on above: Petechial rash (Prim laxmi Dx) Start: 05-09-2024 End: 05-09-2024 ambulatory PADMINI ANGUIANO Facility:[facility] Start: 05-08-2024 End: 05-08-2024 Chart abstracting Willard Henriquez MD Work Phone: [facility] Comment on above: Outside Iyzy-Fyx-FLU Ordered Start: 05-07-2024 End: 05-07-2024 ambulatory [facility] Facility:[facility] Start: 04-19-2024 Chart abstracting Willard metzger MD Work Phone: [facility] Comment on above: Outside Vilx-Zcs-RNK Ordered Start: 04-18-2024 End: 04-18-2024 ambulatory [facility] Facility:[facility] Start: 04-09-2024 Chart abstracting Willard metzger MD Work Phone: [facility] Comment on above: Outside Eiyl-Put-TRQ Ordered Start: 04-08-2024 Chart abstracting Kay Allred [facility] [place] Comment on above: Consult (PT) Start: 04-08-2024 End: 04-08-2024 ambulatory [facility] Facility:[facility] Start: 03-28-2024 Chart abstracting Willard metzger MD Work Phone: [facility] [place] Comment on above: Outside Busl-Yfz-VZK Ordered Start: 03-28-2024 End: 03-28-2024 Office outpatient new 45 minutes Phillip Whelan MD Work Phone: [facility] [place] Comment on above: 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); Category 4 blindness of right eye, unspecified left eye visual impairment category Start: 03-28-2024 ambulatory DEE EUCEDA Facility: [facility] Start: 03-27-2024 End: 03-27-2024 ambulatory [facility] Facility:[facility] Start: 03-25-2024 End: 03-25-2024 ambulatory Lou Zapata Facility:[facility] Start: 03-20-2024 Chart abstracting Willard metzger MD Work Phone: [facility] [place] Comment on above: Outside Imaging Start: 03-19-2024 End: 03-19-2024 ambulatory Nic Coleman Facility:[facility] Start: 03-11-2024 Chart abstracting Willard metzger MD Work Phone: [facility] [place] Comment on above: Outside Monk-Itd-EAK Ordered Start: 03-06-2024 End: 03-06-2024 ambulatory [facility] Facility:[facility] Start: 03-01-2024 End: 03-01-2024 ambulatory Carrie Waters Facility:[facility] Start: 02-26-2024 Chart abstracting Willard metzger MD Work Phone: [facility] [place] Comment on above: Outside Fwlp-Gra-MPT Ordered Outside Surgical Con sult Start: 02-26-2024 End: 02-26-2024 ambulatory Nic Coleman Facility:[facility] Start: 02-23-2024 End: 02-23-2024 ambulatory Nikki Dangelo Facility:[facility] Start: 02-15-2024 Chart abstracting Willard metzger MD Work Phone: [facility] Comment on above: Outside Lab Results Outside Zjln-Alt-LMX Ordered Start: 02-13-2024 Chart abstracting Kay Newman MA [facility] Comment on above: Results, Lab Outside Cardiac Start: 02-08-2024 Chart abstracting Willard metzger MD Work Phone: [facility] Comment on above: Outside Surgery Cons ult Start: 02-06-2024 Chart abstracting Willard metzger MD Work Phone: [facility] Comment on above: Outside Ndxq-Rad-UUC Ordered Start: 01-15-2024 Chart abstracting Willard metzger MD Work Phone: [facility] Comment on above: Ext / Physical Thera py Start: 01-04-2024 Chart abstracting Willard metzger MD Work Phone: [facility] Comment on above: ext document (Endo r eport) Start: 11-24-[address] Abhishek Henriquze Work Phone: [facility]-Physical Therapy Work Phone: Start: 11-24-2023 Telephone encounter Padmini tripathi APRN.ENROLLMENT REPRESENTATIVE Work Phone: [facility] Comment on above: Results Start: 2023 End: 2023 Subsequent hospital visit by physician [facility] Work Phone: Radiology Comment on above: SOB (shortness of br eath) [R06.02] Start: 2023 End: 2023 Patient encounter procedure Padmini Anguiano APRN.ENROLLMENT REPRESENTATIVE Work Phone: [facility] Comment on above: SOB (shortness of br eath) (Primary Dx); Type 2 diabetes mellitus with stage 3a chronic kidney disease, with long-term current use of insulin (HCC); Hyperlipidemia, mixed; Vitamin D deficiency; Medication management; Morbid obesity due to excess calories (HCC) Start: 2023 Telephone encounter Padmini Palmer tripathi APRN.CNP Work Phone: [facility] Comment on above: Results Start: 11-22-2023 Non-patient / Non-visit Dr. Robert Henriquez Work Phone: [facility] Start: 11-22-2023 End: 11-22-[address] Willard Henriquez Work Phone: [facility] Work Phone: Start: 11-22-2023 End: 11-22-[address] [facility] Start: 11-22-2023 End: 11-22-[address] Willard Henriquez Work Phone: [facility] Work Phone: Start: 11-15-2023 End: 11-15-[address] Willard Henriquez Work Phone: [facility] Work Phone: Start: 11-05-2023 ambulatory Willard kebede MD Work Phone: [facility] Comment on above: i saw Dr Henriquez Oct 25 Start: 10-30-2023 End: 10-30-[address] Willard Henriquez Work Phone: [facility] Work Phone: Start: 10-26-2023 Telephone encounter Willard Henriquez MD Work Phone: [facility] Comment on above: Results Start: 10-25-2023 Chart abstracting Willard metzger MD Work Phone: [facility] Comment on above: Outside Cardiology ( Lab ) Start: 10-25-2023 Telephone encounter Kay Newman MA [facility] [place] Comment on above: Orders Start: 10-25-2023 End: 10-25-2023 Patient encounter procedure Willard Henriquez MD Work Phone: [facility] Work Phone: Comment on above: Bilateral leg edema (Primary Dx); Bilateral calf pain; Acute on chronic diastolic congestive heart failure (HCC); Advance directive discussed with patient Start: 10-24-2023 Chart abstracting Willard metzger MD Work Phone: [facility] [place] Comment on above: Outside Endocrinolog y Start: 10-17-2023 Refill Jesica Hernández on PA-C Work Phone: [facility] [place] Comment on above: Refill Request Start: 10-13-2023 End: 10-13-[address] Willard Henriquez Work Phone: [facility] Work Phone: Start: 10-13-2023 End: 10-13-[address] Willard Henriquez Work Phone: [facility]-Physical Therapy Work Phone: Start: 10-13-[address] Abhishek Henriquez Work Phone: [facility]-Physical Therapy Work Phone: Start: 10-12-2023 Chart abstracting Willard metzger MD Work Phone: [facility] [place] Comment on above: Outside Vids-Rtm-WYQ Ordered Start: 10-11-2023 Chart abstracting Willard metzger MD Work Phone: [facility] [place] Comment on above: Outside Deoq-Cne-JDT Ordered Start: 10-10-2023 End: 10-10-[address] Willard Henriquez Work Phone: [facility] Work Phone: Start: 10-10-2023 End: 10-10-[address] Willard Henriquez Work Phone: [facility] Work Phone: Start: 10-10-2023 End: 10-10-[address] Willard Henriquez Work Phone: [facility] Work Phone: Start: 08-02-2023 ambulatory Silke parra [place] [facility] [place] Comment on above: Population Health Na vigation Outreach ([facility]) Start: 08-02-2023 Telephone encounter Willard Henriquez MD Work Phone: [facility] [place] Start: 07-26-2023 ambulatory Willard kebede MD Work Phone: Internal Medicine [facility] Start: 07-21-2023 End: 07-21-[address] Willard Henriquez Work Phone: [facility] Work Phone: Start: 07-21-2023 End: 07-21-[address] Willard Henriquez Work Phone: [facility]-Medical Out Work Phone: Start: 07-19-[address] Abhishek Henriquez Work Phone: [facility]-Physical Therapy Work Phone: Start: 06-08-2023 End: 06-08-[address] Willard Henriquez Work Phone: [facility]ocrinology Work Phone: Start: 05-19-[address] Abhishek Henriquez Work Phone: [facility]-Physical Therapy Work Phone: Start: 05-09-2023 End: 05-09-[address] Willard Henriquez Work Phone: [facility] Work Phone: Start: 05-09-2023 End: 05-09-[address] Willard Henriquez Work Phone: [facility]-Sleep Lab Work Phone: Start: 04-27-2023 Chart abstracting Willard metzger MD Work Phone: [facility] Comment on above: Consult Start: 04-26-2023 End: 04-26-[address] Willard Henriquez Work Phone: [facility] Work Phone: Start: 04-25-2023 Telephone encounter Jesica urias PA-C Work Phone: [facility] Comment on above: Results Start: 04-24-2023 End: 04-24-2023 Patient encounter procedure Padmini Anguiano APRN.CNP Work Phone: [facility] Comment on above: Lumbar radiculopathy (Primary Dx); Seasonal allergic rhinitis due to pollen; Benign hypertension; Obesity, Class III, BMI >= 40; Stage 3a chronic kidney disease (HCC); Spinal stenosis, lumbar region, with neurogenic claudication; DDD (degenerative disc disease), lumbar; NATALIE (obstructive sleep apnea); Vitamin D deficiency; ASHD (arteriosclerotic heart disease); Type 2 diabetes mellitus with stage 3a chronic kidney disease, with long-term current use of insulin (HCC); Mild intermittent asthma without complication; Hyperlipidemia, mixed; Hypertension, essential; Gastroesophageal reflux disease, unspecified whether esophagitis present; Postsurgical hypothyroidism; Medicare annual wellness visit, subsequent; Acute on chronic diastolic congestive heart failure (HCC) Start: 04-19-2023 Telephone encounter Willard Henriquez MD Work Phone: [facility] Comment on above: Orders Start: 04-07-2023 Chart abstracting Willard metzger MD Work Phone: [facility] Start: 04-06-2023 End: 04-06-[address] Willard Henriquez Work Phone: [facility] Work Phone: Start: 03-27-2023 Chart abstracting Willard metzger MD Work Phone: [facility] Comment on above: Results Start: 02-23-2023 End: 02-27-2023 Evaluation and management of inpatient ANDREA SANDOVAL Facility:[id number] Start: 02-21-2023 Telephone encounter Willard Henriquez MD Work Phone: [facility] [place] Comment on above: Forms Start: 02-20-2023 End: 02-20-2023 Patient encounter procedure Willard Henriquez MD Work Phone: [facility] Comment on above: Pre-op examination ( Primary Dx); Spinal stenosis of lumbar region without neurogenic claudication; Mild intermittent asthma without complication; Hypertension, essential; Seasonal allergic rhinitis due to pollen Start: 02-20-2023 End: 02-20-2023 Preprocedural examination done Willard Henriquez MD Work Phone: [facility] [place] Start: 02-20-2023 Chart abstracting Willard metzger MD Work Phone: [facility] Comment on above: Consult Start: 02-16-2023 End: 02-16-2023 Admission to [place] [id number] Work Phone: [facility] Start: 02-16-2023 End: 02-17-2023 ambulatory WILLARD HENRIQUEZ Pre Anesthesia Comment on above: Coronary artery dise ase involving [place] heart, unspecified vessel or lesion type, unspecified whether angina present (Primary Dx); Wheezing ; Preop testing; Pain, unspecified ; Pain in other specified joint Start: 02-16-2023 End: 02-16-2023 Patient encounter status Pacc 2 Work Phone: Pre Anesthesia Start: 02-06-2023 Refill Willard kebede MD Work Phone: [facility] Comment on above: Refill Request Results, Lab Start: 02-02-2023 End: 02-02-[address] Willard Henriquez Work Phone: [facility] Start: 02-02-2023 End: 02-02-2023 Refill [facility] Provider Family Medicine Karthik harmon Comment on above: Refill Request Start: 02-02-2023 End: 02-02-[address] Willard Henriquez Work Phone: [facility] Start: 01-20-2023 End: 01-20-[address] Willard Henriquez Work Phone: [facility]-Medical Out Start: 12-24-2022 Refill Padmini bruce APRN.ENROLLMENT REPRESENTATIVE Work Phone: [facility] Comment on above: Refill Request Start: 11-07-2022 End: 11-08-2022 ambulatory WILLARD HENRIQUEZ Facility:[id number] Start: 11-07-2022 Encounter for other preprocedural examination WILLARD YEMI [facility] Start: 11-07-2022 End: 11-07-2022 Admission to [place] [id number] Work Phone: [facility] Start: 11-07-2022 End: 11-07-2022 ambulatory [facility] 2 Work Phone: Pre Anesthesia Comment on above: Preop testing (Prima ry Dx); Pain, unspecified ; Postprocedural hypoinsulinemia ; Pain in other joint ; Unspecified diastolic (congestive) heart failure (HCC) Start: 11-07-2022 End: 11-07-2022 Patient encounter status Pacc 2 Work Phone: Pre Anesthesia Start: 10-30-2022 Refill Freeman Hernandez APRN.ENROLLMENT REPRESENTATIVE, DNP Work Phone: Urology Comment on above: Refill Request Start: 10-26-2022 Admission to [facility] Willard Henriquez MD Work Phone: [facility] [place] Comment on above: back surgery Start: 10-26-2022 ambulatory Willard kebede MD Work Phone: [facility] Start: 10-25-2022 End: 10-25-[address] Willard Henriquez Work Phone: [facility] Work Phone: Start: 10-25-2022 End: 10-25-[address] Willard Henriquez Work Phone: [facility] Start: 10-24-2022 End: 10-24-2022 Ophthalmic examination and evaluation Willard Henriquez MD Work Phone: [facility] Start: 10-24-2022 End: 10-24-2022 Patient encounter procedure Willard Henriquez MD Work Phone: [facility] Comment on above: Type 2 diabetes melodie itus with stage 3a chronic kidney disease, with long-term current use of insulin (HCC) (Primary Dx); Diabetic eye exam ([facility]); Hypertension, essential; Hyperlipidemia, mixed; Gastroesophageal reflux disease, unspecified whether esophagitis present; Postsurgical hypothyroidism; Mild intermittent asthma without complication; ASHD (arteriosclerotic heart disease); Stage 3a chronic kidney disease ([facility]); Morbid obesity due to excess calories ([facility]); NATALIE (obstructive sleep apnea); Vitamin D deficiency Start: 10-21-[address] ANDREA GARCIA DO Facility:B Start: 09-22-2022 End: 09-22-[address] Willard Henriquez Work Phone: [facility] Start: 09-21-2022 Telephone encounter Freeman ascencio APRN.ENROLLMENT REPRESENTATIVE, DNP Work Phone: Urology Comment on above: Results Start: 09-11-2022 Telephone encounter Ilsa [facility] Comment on above: Appointment Start: 08-25-2022 Refill Willard kebede MD Work Phone: [facility] Comment on above: Refill Request Refill Request; Refi ll Request Start: 08-17-2022 ambulatory Willard kebede MD Work Phone: Internal [facility] [place] Start: 08-16-2022 End: 08-16-[address] Willard Henriquez Work Phone: [facility] [facility] Start: 08-10-2022 Ophthalmic examinati on and evaluation Willard Henriquez MD Work Phone: [facility] Start: 07-22-2022 End: 07-22-[address] Willard Henriquez Work Phone: [facility] Work Phone: Start: 07-22-2022 End: 07-22-[address] Willard Henriquez Work Phone: [facility]-Medical Out Start: 07-19-2022 End: 07-19-[address] Willard Henriquez Work Phone: [facility] Work Phone: Start: 07-19-2022 End: 07-19-[address] Willard Henriquez Work Phone: [facility] Start: 06-29-2022 Telephone encounter Jesica urias PA-C Work Phone: [facility] Comment on above: Results Start: 06-09-2022 Refill Jesica Hernández on PA-C Work Phone: [facility] Comment on above: Refill Request Start: 05-27-2022 Chart abstracting Willard metzger MD Work Phone: [facility] Comment on above: Pathology Report (co lonoscopy) Start: 05-26-2022 End: 05-26-[address] Willard Henriquez Work Phone: [facility] Start: 05-24-2022 Non-patient / Non-visit Dr. Robert Henriquez Work Phone: [facility] Start: 05-24-2022 End: 05-24-2022 Admission to same day surgery center Dr. Willard Henriquez Work Phone: [facility]-Endoscopy Start: 05-24-2022 End: 05-24-[address] Willard Henriquez Work Phone: [facility] Work Phone: Start: 05-10-2022 Telephone encounter Willard Henriquez MD Work Phone: [facility] Comment on above: Results Start: 04-28-2022 Telephone encounter Willard Henriquez MD Work Phone: [facility] Comment on above: Lab Orders Start: 04-26-2022 End: 04-26-[address] Willard Henriquez Work Phone: [facility] Start: 04-06-2022 End: 04-06-2022 Patient encounter procedure Willard Henriquez MD Work Phone: [facility] Comment on above: Medicare annual well [facility] visit, initial (Primary Dx); Diabetes mellitus type 2 (HCC); Uncontrolled type 2 diabetes mellitus with hyperglycemia (HCC); Hypertension, essential; Hyperlipidemia, mixed; Postsurgical hypothyroidism; Gastroesophageal reflux disease, unspecified whether esophagitis present; ASHD (arteriosclerotic heart disease); Stage 3a chronic kidney disease (HCC); Mild intermittent asthma without complication; Morbid obesity due to excess calories (HCC); NATALIE (obstructive sleep apnea); Vitamin D deficiency; Spinal stenosis of lumbar region without neurogenic claudication; Lumbar radiculopathy; Psoriasis; Living will on file; Advance directive discussed with patient; Screening for colon cancer; Encounter for immunization Start: 03-14-2022 Telephone encounter Jesica urias PA-C Work Phone: [facility] Comment on above: requesting office no bakari Start: 03-11-2022 End: 03-11-[address] Willard Henriquez Work Phone: [facility] Start: 02-28-2022 ambulatory Willard kebede MD Work Phone: [facility] Comment on above: Handicap Placcolby Anderson ewshirlene Start: 02-25-2022 Chart abstracting Willard metzger MD Work Phone: [facility] Comment on above: outside cardiology Start: 02-24-2022 End: 02-24-[address] Willard Henriquez Work Phone: [facility] Start: 02-23-2022 Chart abstracting Willard metzger MD Work Phone: [facility] Comment on above: Outside Labs Results Start: 02-22-2022 End: 02-22-[address] Willard Henriquez Work Phone: [facility] Start: 02-14-2022 End: 02-14-[address] [facility] Start: 01-24-2022 End: 01-24-2022 Office outpatient visit 25 minutes Za Stearns APRN.CNP Work Phone: [facility] Comment on above: Acute cystitis with hematuria (Primary Dx); UTI symptoms Start: 01-20-2022 End: 01-20-[address] Willard Henriquez Work Phone: [facility]-Medical Out Start: 01-14-2022 Refill Willard kebede MD Work Phone: [facility] Comment on above: Refill Request Start: 12-20-2021 End: 12-20-[address] Willard Henriquez Work Phone: [facility] Start: 10-15-2021 End: 10-15-[address] Porfirio Garzon III Work Phone: [facility] Start: 10-05-2021 End: 10-05-[address] Porfirio Garzon III Work Phone: [facility] Start: 09-21-2021 Non-patient / Non-visit Dr. Fr linnea Garzon III Work Phone: [facility] Start: 09-21-2021 End: 09-21-[address] Porfirio Garzon III Work Phone: [facility]-Cardiovascular Services Start: 08-19-2021 End: 08-19-[address] Porfirio Garzon III Work Phone: [facility] [facility] Start: 06-22-2021 End: 06-22-2021 SAME DAY STAY WILLARD CHUNG [facility] Procedures Date Procedure Procedure Detail Performing Clinician Start: 01-17-2025 Measurement of occul t blood in stool specimen using immunoassay Dr. Willard Henriquez MD Work Phone: Start: 01-16-[address] Kelle Henriquez MD Work Phone: Start: 01-16-2025 Antibody to centrome re measurement Dr. Willard Henriquez MD Work Phone: Start: 01-16-2025 Antibody to extracta ble nuclear antigen measurement Dr. Willard Henriquez MD Work Phone: Start: 01-16-2025 Antibody to SONYA-[address] Willard Henriquez MD Work Phone: Start: 01-16-2025 Antibody to lupus La protein measurement Dr. Willard Henriquez MD Work Phone: Start: 01-16-2025 Antibody to SS-A measurement Dr. Willard Henriquez MD Work Phone: Start: 01-16-[address] Willard Henriquez MD Work Phone: Start: 01-16-2025 Endomysial antibody IgA level Dr. Willard Henriquez MD Work Phone: Start: 01-16-[address] Willard Henriquez MD Work Phone: Start: 01-16-2025 JEWEL OLIVING MACHINE OPERATOR antibody measurement Dr. Willard Henriquez MD Work Phone: Start: 01-10-2025 End: 01-10-2025 Computerized ophthalmic imaging optic nerve Phillip Whelan MD Work Phone: Start: 01-01-2025 Blood count smear mc rscp w/mnl difrntl wbc count Dr. Willard Henriquez MD Work Phone: Start: 01-01-2025 Mean corpuscular hem oglobin concentration determination Dr. Willard Henriquez MD Work Phone: Start: 01-01-2025 Nucleated red blood cell count procedure Dr. Willard Henriquez MD Work Phone: Start: 01-01-2025 Platelet mean volume determination Dr. Willard Henriquez MD Work Phone: Start: 12-17-2024 Urine microscopy: red cells Dr. Willard Henriquez MD Work Phone: Start: 12-17-2024 Urnls dip stick/tabl et reagent auto microscopy Dr. Willard Henriquez MD Work Phone: Start: 12-17-2024 Blood count smear mc rscp w/mnl difrntl wbc count Dr. Willard Henriquez MD Work Phone: Start: 12-17-2024 Calculation of international normalized ratio Dr. Willard Henriquez MD Work Phone: Start: 12-17-[address] Willard Henriquez MD Work Phone: Start: 12-17-2024 Mean corpuscular hem oglobin concentration determination Dr. Willard Henriquez MD Work Phone: Start: 12-17-2024 Nucleated red blood cell count procedure Dr. Willard Henriquez MD Work Phone: Start: 12-17-2024 Platelet mean volume determination Dr. Willard Henriquez MD Work Phone: Start: 12-17-2024 Plain chest X-ray Dr. Kandis Henriquez MD Work Phone: Start: 12-17-[address] Abhishek Henriquez MD Work Phone: Start: 11-29-2024 CT angiography of ch est with contrast Dr. Willard Henriquez MD Work Phone: Start: 11-29-2024 D-dimer assay, quantitative Dr. Willard Henriquez MD Work Phone: Start: 11-29-2024 Blood count smear mc rscp w/mnl difrntl wbc count Dr. Willard Henriquez MD Work Phone: Start: 11-29-2024 Mean corpuscular hem oglobin concentration determination Dr. Willard Henriquez MD Work Phone: Start: 11-29-2024 Nucleated red blood cell count procedure Dr. Willard Henriquez MD Work Phone: Start: 11-29-2024 Platelet mean volume determination Dr. Willard Henriquez MD Work Phone: Start: 11-29-2024 X-ray of chest, PA a nd lateral views Dr. Willard Henriquez MD Work Phone: Start: 10-23-2024 Evaluation of diagno stic study results Dr. Willard Henriquez MD Work Phone: Start: 09-30-2024 Albumin/Globulin ratio Dr. Willard Henriquez MD Work Phone: Start: 09-30-2024 Anion gap measurement Mary Carmen Henriquez MD Work Phone: Start: 09-30-2024 Blood count smear mc rscp w/mnl difrntl wbc count Dr. Willard Henriquez MD Work Phone: Start: 09-30-2024 BUN/Creatinine ratio Dr Kelle Henriquez MD Work Phone: Start: 09-30-2024 Mean corpuscular hem oglobin concentration determination Dr. Willard Henriquez MD Work Phone: Start: 09-30-2024 Measurement of C-carey ctive protein using high sensitivity technique Dr. Willard Henriquez MD Work Phone: Start: 09-30-2024 Measurement of renal function Dr. Willard Henriquez MD Work Phone: Start: 09-30-2024 Nucleated red blood cell count procedure Dr. Willard Henriquez MD Work Phone: Start: 09-30-2024 Platelet mean volume determination Dr. Willard Henriquez MD Work Phone: Start: 05-31-2024 Adult depression scr eening assessment Padmini Anguiano STOVE POLISHER.ENROLLMENT REPRESENTATIVE Work Phone: Start: 03-28-2024 End: 03-28-2024 Computerized ophthalmic imaging optic nerve Phillip Whelan MD Work Phone: Start: 2023 Radiologic exam ches t 2 views Padmini Anguiano STOVE POLISHER.ENROLLMENT REPRESENTATIVE Work Phone: Start: 10-30-2023 Radiologic examinati on of knee Dr. Willard Henriquez Work Phone: Start: 10-10-2023 Hemoglobin A1c/Hemoglobin.total in Blood [facility] Provider Start: 10-10-2023 Thyrotropin [Units/v olume] in Serum or Plasma [facility] Provider Start: 10-10-[address] Abhishek Henriquez Work Phone: Start: 02-16-2023 End: 02-16-2023 Antibody screen Pacc 2 Work Phone: Comment on above: Order Comment: Speci men Type: BLOOD SPECIMENOrdering Facility: [facility] Address: [address] [place], [place] [id number] Performed By: #### T [id number] ####[facility]IA [id number] [address] [place] Start: 02-16-2023 Antibody screen rbc each serum technique Andrea Sandoval DO Work Phone: Start: 02-16-2023 Prothrombin time Andrea Sandoval DO Work Phone: Start: 02-16-2023 Culture bacterial quanttative colony count urine Andrea Sandoval DO Work Phone: Start: 11-07-2022 End: 11-07-2022 Antibody screen Pacc 2 Work Phone: Comment on above: Order Comment: Speci men Type: BLOOD SPECIMEN Ordering Facility: [facility] Address: [address] [place] [id number] Performed By: #### T [id number] #### [facility] CLIA [id number] [address] [place] [id number] [facility] Start: 11-07-2022 Ecg routine ecg w/le ast 12 lds i&r only Andrea Marquis Isaacvangie DO Work Phone: Start: 11-07-2022 Antibody screen rbc each serum technique Andrea Kandis Josececil DO Work Phone: Start: 11-07-2022 Basic metabolic pane l calcium total Andrea Kandis Josececil DO Work Phone: Start: 11-07-2022 Iadna s aureus ampli fied probe tq Andrea Kandis Jaime DO Work Phone: Start: 10-25-2022 CT of lumbar spine Dr. Willard Henriquez Work Phone: Start: 05-24-2022 End: 05-24-[address] Willard Henriquez Work Phone: Start: 02-22-2022 Comprehensive metabo lic 2000 panel - Serum or Plasma [facility] Provider Start: 02-22-2022 Hemoglobin A1c/Hemoglobin.total in Blood [facility] Provider Start: 02-22-2022 Lipid panel [facility] Provid er Start: 02-22-2022 T4 FREE DIRECT DIALY SIS (MM) [facility] Provider Start: 02-22-2022 Thyrotropin [Units/v olume] in Serum or Plasma [facility] Provider Start: 02-22-2022 VITAMIN D 25 ([place]) [facility] P rovider Start: 01-24-2022 Urnls dip stick/tabl et rgnt auto w/o microscopy Za Stearns STOVE POLISHER.ENROLLMENT REPRESENTATIVE Work Phone: Start: 09-21-2021 Nuclear Stress Test - Chemical Dr. Porfirio Garzon III Work Phone: Start: 07-13-2021 Mammography Willard metzger MD Work Phone: Start: 05-13-2021 Laminectomy WILLARD KISER TTS DO Comment on above: THORACIC 9 AND 10 LA MINECTOMY, IMPLANTATION OF SPINAL CORD STIMULATOR LEAD AND GENERATOR Start: 04-18-2011 Colonoscopy Willard metzger MD Work Phone: Arthroscopy WILLARD Lentz O Comment on above: BILATERAL KNEE Bilateral cataracts (disorder) WILLARD CHUNG DO Comment on above: Bilateral Cholecystectomy WILLARD OSMANStanley S DO History of placement of stent for coronary artery disease Hx of heart artery stent Dr. Willard Henriquez MD Work Phone: Hysterectomy WILLARD CHUNG D O Nasal septoplasty WILLARD RASHEL TTS DO Percutaneous translu hernesto coronary angioplasty WILLARD CHUNG DO Comment on above: 3 stents Placement of stent i n cardiac conduit WILLARD CHUNG DO Comment on above: X3 Thyroidectomy WILLARD CHUNG DO Tonsillectomy WILLARD CHUNG DO Urine culture Dr. Willard metzger Work Phone: Plan of Treatment Date Care Activity Detail Author Start: 05-24-2027 Colonoscopy COLONOSCOPY [facility] Start: 05-24-2027 COLORECTAL CANCER SCREENING COLORECTAL CANCER SCREENING [facility] Start: 05-24-2027 Screening for malign ant neoplasm of colon [facility] Start: 01-31-2026 Annual PCP Team Caseworker Intake alisa Disease Visit Annual PCP Team Chronic Disease Visit [facility] Start: 01-03-2026 Annual PCP Team Caseworker Intake alisa Disease Visit Annual PCP Team Chronic Disease Visit [facility] Start: 01-03-2026 BP Controlled (<130/80) BP Controlle d (<130/80) [facility] Start: 12-05-2025 Annual PCP Team Caseworker Intake alisa Disease Visit Annual PCP Team Chronic Disease Visit [facility] Start: 12-05-2025 BP Controlled (<130/80) BP Controlle d (<130/80) [facility] Start: 11-29-2025 Annual PCP Team Caseworker Intake alisa Disease Visit Annual PCP Team Chronic Disease Visit [facility] Start: 11-21-2025 Complete blood count Hemoglobin/Shayne tocrit [facility] Start: 11-21-2025 Creatinine measurement Serum Creatin ine [facility] Start: 11-21-2025 Hepatitis B surface antibody level LDL Cholesterol [facility] Start: 08-05-2025 End: 08-05-2025 Patient encounter procedure 08/05/2025 1:20 PM EST Office Visit [facility] [address] [place], [place] [id number] Jesica Sierra PA-C [address] [place], [place] [id number] Medicare wellness [facility] Comment on above: Medicare wellness Start: 07-23-2025 Hemoglobin A1c measurement HbA1C [facility] Start: 06-30-2025 Tetanus vaccination TETANUS U [facility] Start: 06-30-2025 Urine microalbumin profile [facility] Start: 06-12-2025 End: 06-12-2025 Patient encounter procedure 06/12/2025 2:40 PM EDT Office Visit [facility] [place] [address] [place] [id number] Phillip Whelan MD [address] [address] [place], [place] [id number] [facility] [place] Start: 06-06-2025 End: 06-06-2025 Patient encounter procedure 06/06/2025 2:20 PM EDT Office Visit [facility] [address] [place], [place] [id number] Willard Henriquez MD [address] [place] [id number] medicare wellness Family [facility] Comment on above: medicare wellness Start: 05-31-2025 Annual PCP Team Caseworker Intake alisa Disease Visit Annual PCP Team Chronic Disease Visit [facility] Start: 05-31-2025 Anxiety Screening Anxiety Screening [facility] Start: 05-31-2025 Depression Screening Depression Scre ening [facility] Start: 05-31-2025 Hepatitis B screening Urine Albumin:Creatinine Ratio [facility] Start: 05-28-2025 Complete blood count Hemoglobin/Shayne tocrit [facility] Start: 05-28-2025 Creatinine measurement Serum Creatin ine [facility] Start: 05-28-2025 Hepatitis B surface antibody level LDL Cholesterol [facility] Start: 05-14-2025 Hemoglobin A1c measurement HbA1C [facility] Start: 05-09-2025 Annual PCP Team Caseworker Intake alisa Disease Visit Annual PCP Team Chronic Disease Visit [facility] Start: 05-09-2025 BP Controlled (<130/80) BP Controlle d (<130/80) [facility] Start: 03-25-2025 End: 03-25-2025 Patient encounter procedure 03/25/2025 11:00 AM EDT Office Visit [facility] [address] [place] [address] Bilateral carotid artery stenosis [I65.23]; Audible heartbeat in right ear [H93.8X1] [facility] Comment on above: Bilateral carotid ar michel stenosis [I65.23]; Audible heartbeat in right ear [H93.8X1] Start: 02-11-2025 Walking distance 6 minutes [facility] Start: 02-01-2025 Glaucoma screening Dilated Retinal E xam [facility] Start: 01-31-2025 End: 01-31-2025 Patient encounter procedure 01/31/2025 10:40 AM EDT Office Visit Family [facility] [address] [place] [address] Willard Henriquez MD [address] [place] [address] 4 week follow up Family [facility] Comment on above: 4 week follow up Start: 01-17-2025 Elastase.pancreatic [Presence] in Stool [facility] Start: 01-17-2025 Protein measurement [facility] Start: 01-16-2025 Celiac disease screen [facility] Start: 01-16-2025 Hepatic function panel [facility] Start: 01-16-2025 Immunoglobulin measurement [facility] Start: 01-16-2025 [facility] Start: 01-03-2025 End: 04-04-2025 Cobalamin (Vitamin B12) [Mass/volume] in Serum or Plasma [facility] Work Phone: Comment on above: Expected: 01/03/2025 , Expires: 04/04/2025 Start: 01-03-2025 End: 04-04-2025 Ferritin [Mass/volume] in Serum or Plasma [facility] Comment on above: Expected: 01/03/2025 , Expires: 04/04/2025 Start: 01-03-2025 End: 04-04-2025 Folate [Mass/volume] in Serum or Plasma [facility] Comment on above: Expected: 01/03/2025 , Expires: 04/04/2025 Start: 01-03-2025 End: 04-04-2025 Iron and Iron binding capacity panel - Serum or Plasma [facility] Comment on above: Expected: 01/03/2025 , Expires: 04/04/2025 Start: 01-03-2025 End: 01-03-2025 Patient encounter procedure 01/03/2025 11:20 AM EDT Office Visit [facility] [address] [place] [address] Willard Henriquez MD [address] [place] [address] Hospital f/U [facility] Comment on above: Hospital f/U Start: 01-02-2025 Walking distance 6 minutes [facility] Start: 01-01-2025 Evaluation of diagno stic study results [facility] Start: 12-17-2024 End: 12-17-2024 [facility] Start: 12-17-2024 End: 12-17-2024 [facility] Start: 12-05-2024 End: 12-05-2024 Patient encounter procedure 12/05/2024 2:00 PM EDT Office Visit Family [facility] [address] [place] [address] Padmini Anguiano APRN.ENROLLMENT REPRESENTATIVE [address] [place] [address] ER Follow up [facility] blood clots in lungs [facility] Comment on above: ER Follow up [facility] blo od clots in lungs Start: 12-03-2024 Continuous pulse oximetry [facility] Start: 11-30-2024 [facility] Start: 11-29-2024 [facility] Start: 11-29-2024 End: 11-29-2024 [facility] Start: 11-29-2024 End: 11-29-2024 Patient encounter procedure [facility] Comment on above: 6 month follow up Start: 11-28-2024 Hemoglobin A1c measurement HbA1C [facility] Start: 11-22-2024 Annual PCP Team Caseworker Intake alisa Disease Visit Annual PCP Team Chronic Disease Visit [facility] Start: 11-21-2024 End: 02-20-2025 CBC W Auto Differential panel - Blood [facility] Comment on above: Expected: 11/21/2024 , Expires: 02/20/2025 Start: 11-21-2024 End: 02-20-2025 Comprehensive metabolic 2000 panel - Serum or Plasma [facility] Comment on above: Expected: 11/21/2024 , Expires: 02/20/2025 Start: 11-21-2024 End: 02-20-2025 LIPID PANEL, NONFASTING [facility] Comment on above: Expected: 11/21/2024 , Expires: 02/20/2025 Start: 11-21-2024 End: 02-20-2025 Thyrotropin [Units/volume] in Serum or Plasma [facility] Work Phone: Comment on above: Expected: 11/21/2024 , Expires: 02/20/2025 Start: 10-25-2024 Annual PCP Team Caseworker Intake alisa Disease Visit Annual PCP Team Chronic Disease Visit [facility] Start: 10-25-2024 BP Controlled (<130/80) BP Controlle d (<130/80) [facility] Start: 09-27-2024 End: 09-27-2024 Patient encounter procedure 09/27/2024 2:00 PM EST Office Visit [facility] [place] [address] [place] [address] [address] [place] [address] Phillip Whelan MD [address] [facility] [address] [place] [address] [facility] Start: 09-04-2024 Advance Directive Discussion Advance Directive Discussion [facility] Start: 08-03-2024 End: 11-02-2024 Thyrotropin [Units/volume] in Serum or Plasma THYROID STIMULATING HORMONE Lab Routine Postsurgical hypothyroidism Expected: 08/03/2024, Expires: 11/02/2024 [facility] Work Phone: Comment on above: Expected: 08/03/2024 , Expires: 11/02/2024 Start: 05-31-2024 End: 08-30-2024 Microalbumin/Creatinine [Mass Ratio] in Urine [facility] Work Phone: Comment on above: Expected: 05/31/2024 , Expires: 08/30/2024 Start: 05-31-2024 End: 08-30-2024 Thyrotropin [Units/volume] in Serum or Plasma [facility] Comment on above: Expected: 05/31/2024 , Expires: 08/30/2024 Start: 05-31-2024 End: 05-31-2024 Patient encounter procedure 05/31/2024 1:40 PM EDT Office Visit [facility] [place] [address] [place] [address] Padmini Anguiano APRN.[facility] [address] [place], [place] [id number] medicare wellness [facility] [place] Comment on above: medicare wellness Start: 05-24-2024 End: 08-23-2024 25-hydroxyvitamin D3 [Mass/volume] in Serum or Plasma VITAMIN D 25 HYDROXY Lab Routine Vitamin D deficiency Expected: 05/24/2024, Expires: 08/23/2024 [facility] Work Phone: Comment on above: Expected: 05/24/2024 , Expires: 08/23/2024 Start: 05-24-2024 End: 08-23-2024 CBC W Auto Differential panel - Blood CBC + DIFF Lab Routine Medication management Expected: 05/24/2024, Expires: 08/23/2024 [facility] Work Phone: Comment on above: Expected: 05/24/2024 , Expires: 08/23/2024 Start: 05-24-2024 End: 08-23-2024 Comprehensive metabolic 2000 panel - Serum or Plasma COMP METABOLIC PANEL Lab Routine Type 2 diabetes mellitus with stage 3a chronic kidney disease, with long-term current use of insulin (HCC) Expected: 05/24/2024, Expires: 08/23/2024 [facility] Work Phone: Comment on above: Expected: 05/24/2024 , Expires: 08/23/2024 Start: 05-24-2024 End: 08-23-2024 Hemoglobin A1c in Blood HGB A1C Lab Routine Type 2 diabetes mellitus with stage 3a chronic kidney disease, with long-term current use of insulin (HCC) Expected: 05/24/2024, Expires: 08/23/2024 [facility] Work Phone: Comment on above: Expected: 05/24/2024 , Expires: 08/23/2024 Start: 05-24-2024 End: 08-23-2024 LIPID PANEL, NONFASTING LIPID PANEL, NONFASTING Lab Routine Hyperlipidemia, mixed Expected: 05/24/2024, Expires: 08/23/2024 [facility] Work Phone: Comment on above: Expected: 05/24/2024 , Expires: 08/23/2024 Start: 05-24-2024 End: 08-23-2024 Urinalysis complete panel - Urine URINALYSIS, WITH MICROSCOPIC Lab Routine Type 2 diabetes mellitus with stage 3a chronic kidney disease, with long-term current use of insulin (HCC) Expected: 05/24/2024, Expires: 08/23/2024 [facility] Work Phone: Comment on above: Expected: 05/24/2024 , Expires: 08/23/2024 Start: 05-05-2024 Covid-19 Vaccine () Covid-19 Vaccine () [facility] Start: 05-05-2024 Covid-19 Vaccine () Covid-19 Vaccine () [facility] Start: 05-05-2024 Influenza vaccination Influenza Vacc ine (#1) [facility] Start: 04-24-2024 ANNUAL PCP TEAM PMO MANAGER ALISA DISEASE VISIT ANNUAL PCP TEAM CHRONIC DISEASE VISIT [facility] Start: 04-24-2024 BP CONTROLLED (<130/80) BP CONTROLLE D (<130/80) [facility] Start: 04-18-2024 Creatinine measurement Serum Creatin ine [facility] Start: 04-18-2024 Hepatitis B surface antibody level LDL CHOLESTEROL [facility] Start: 04-18-2024 SERUM CREATININE SERUM CREATININE [facility] Start: 04-09-2024 Hemoglobin A1c measurement HbA1C [facility] Start: 02-27-2024 HEMOGLOBIN/HEMATOCRIT HEMOGLOBIN/HEM ATOCRIT [facility] Start: 02-27-2024 SERUM CREATININE SERUM CREATININE [facility] Start: 02-21-2024 ANNUAL PCP TEAM PMO MANAGER ALISA DISEASE VISIT ANNUAL PCP TEAM CHRONIC DISEASE VISIT [facility] Start: 02-21-2024 BP CONTROLLED (<130/80) BP CONTROLLE D (<130/80) [facility] Start: 02-17-2024 BP CONTROLLED (<130/80) BP CONTROLLE D (<130/80) [facility] Start: 01-08-2024 Hemoglobin A1c measurement HbA1C [facility] Start: 2023 End: 02-22-2024 Natriuretic peptide.B prohormone N-Terminal [Mass/volume] in Serum or Plasma [facility] Work Phone: Comment on above: Expected: 2023 , Expires: 02/22/2024 Start: 11-08-2023 SERUM CREATININE SERUM CREATININE [facility] Start: 10-24-2023 ANNUAL PCP TEAM PMO MANAGER ALISA DISEASE VISIT ANNUAL PCP TEAM CHRONIC DISEASE VISIT [facility] Start: 10-24-2023 BP CONTROLLED (<130/80) BP CONTROLLE D (<130/80) [facility] Start: 10-18-2023 Covid-19 Vaccine () Covid-19 Vaccine () [facility] Start: 10-13-2023 End: 01-12-2024 25-hydroxyvitamin D3 [Mass/volume] in Serum or Plasma VITAMIN D 25 HYDROXY Lab Routine Vitamin D deficiency Expected: 10/13/2023, Expires: 01/12/2024 [facility] Work Phone: Comment on above: Expected: 10/13/2023 , Expires: 01/12/2024 Start: 10-13-2023 End: 01-12-2024 ALBUMIN/CREAT RATIO RND UR ALBUMIN/CREAT RATIO RND UR Lab Routine Type 2 diabetes mellitus with stage 3a chronic kidney disease, with long-term current use of insulin ([facility]) Expected: 10/13/2023, Expires: 01/12/2024 [facility] Work Phone: Comment on above: Expected: 10/13/2023 , Expires: 01/12/2024 Start: 10-13-2023 End: 01-12-2024 CBC W Auto Differential panel - Blood CBC + DIFF Lab Routine Postsurgical hypothyroidism Stage 3a chronic kidney disease (HCC) Type 2 diabetes mellitus with stage 3a chronic kidney disease, with long-term current use of insulin (HCC) Expected: 10/13/2023, Expires: 01/12/2024 [facility] Work Phone: Comment on above: Expected: 10/13/2023 , Expires: 01/12/2024 Start: 10-13-2023 End: 01-12-2024 Comprehensive metabolic 2000 panel - Serum or Plasma COMP METABOLIC PANEL Lab Routine Hyperlipidemia, mixed Hypertension, essential Stage 3a chronic kidney disease (HCC) Type 2 diabetes mellitus with stage 3a chronic kidney disease, with long-term current use of insulin (HCC) Expected: 10/13/2023, Expires: 01/12/2024 [facility] Work Phone: Comment on above: Expected: 10/13/2023 , Expires: 01/12/2024 Start: 10-13-2023 End: 01-12-2024 Hemoglobin A1c in Blood HGB A1C Lab Routine Type 2 diabetes mellitus with stage 3a chronic kidney disease, with long-term current use of insulin (HCC) Expected: 10/13/2023, Expires: 01/12/2024 [facility] Work Phone: Comment on above: Expected: 10/13/2023 , Expires: 01/12/2024 Start: 10-13-2023 End: 01-12-2024 LIPID PANEL, NONFASTING LIPID PANEL, NONFASTING Lab Routine Hyperlipidemia, mixed Hypertension, essential Type 2 diabetes mellitus with stage 3a chronic kidney disease, with long-term current use of insulin (HCC) Expected: 10/13/2023, Expires: 01/12/2024 [facility] Work Phone: Comment on above: Expected: 10/13/2023 , Expires: 01/12/2024 Start: 10-13-2023 End: 01-12-2024 Thyrotropin [Units/volume] in Serum or Plasma TSH BLD Lab Routine Postsurgical hypothyroidism Expected: 10/13/2023, Expires: 01/12/2024 [facility] Work Phone: Comment on above: Expected: 10/13/2023 , Expires: 01/12/2024 Start: 10-13-2023 End: 01-12-2024 Urinalysis complete panel - Urine URINALYSIS, WITH MICROSCOPIC Lab Routine Hyperlipidemia, mixed Hypertension, essential Stage 3a chronic kidney disease (HCC) Type 2 diabetes mellitus with stage 3a chronic kidney disease, with long-term current use of insulin (HCC) Expected: 10/13/2023, Expires: 01/12/2024 [facility] Work Phone: Comment on above: Expected: 10/13/2023 , Expires: 01/12/2024 Start: 09-20-2023 SERUM CREATININE SERUM CREATININE [facility] Start: 09-04-2023 Advance Directive Discussion Advance Directive Discussion [facility] Start: 09-04-2023 Behavioral Health Screening Behavioral Health Screening [facility] Start: 09-04-2023 Depression Assessment Depression Ass essment [facility] Start: 08-09-2023 Glaucoma screening Dilated Retinal E xam [facility] Start: 08-09-2023 Hepatitis C antibody , confirmatory test DILATED RETINAL EXAM [facility] Start: 07-19-2023 Hemoglobin A1c measurement HbA1C [facility] Start: 07-19-2023 Hemoglobin A1c/Hemoglobin.total in Blood HBA1C [facility] Start: 05-10-2023 HEMOGLOBIN/HEMATOCRIT HEMOGLOBIN/HEM ATOCRIT [facility] Start: 05-05-2023 Influenza vaccination INFLUENZA (#1) [facility] Start: 04-26-2023 Hepatitis B screening URINE ALBUMIN:CREATININE RATIO [facility] Start: 04-19-2023 End: 06-19-2023 CBC W Auto Differential panel - Blood CBC + DIFF Lab Routine Postsurgical hypothyroidism Stage 3a chronic kidney disease (HCC) Type 2 diabetes mellitus with stage 3a chronic kidney disease, with long-term current use of insulin (HCC) Expected: 04/19/2023, Expires: 06/19/2023 [facility] Work Phone: Comment on above: Expected: 04/19/2023 , Expires: 06/19/2023 Start: 04-14-2023 End: 06-14-2023 25-hydroxyvitamin D3 [Mass/volume] in Serum or Plasma VITAMIN D 25 HYDROXY Lab Routine Vitamin D deficiency Expected: 04/14/2023, Expires: 06/14/2023 [facility] Work Phone: Comment on above: Expected: 04/14/2023 , Expires: 06/14/2023 Start: 04-14-2023 End: 06-14-2023 CBC W Auto Differential panel - Blood CBC + DIFF Lab Routine Postsurgical hypothyroidism Stage 3a chronic kidney disease (HCC) Type 2 diabetes mellitus with stage 3a chronic kidney disease, with long-term current use of insulin (HCC) Expected: 04/14/2023, Expires: 06/14/2023 [facility] Work Phone: Comment on above: Expected: 04/14/2023 , Expires: 06/14/2023 Start: 04-14-2023 End: 06-14-2023 Comprehensive metabolic 2000 panel - Serum or Plasma COMP METABOLIC PANEL Lab Routine Hypertension, essential Hyperlipidemia, mixed Stage 3a chronic kidney disease (HCC) Type 2 diabetes mellitus with stage 3a chronic kidney disease, with long-term current use of insulin (HCC) Expected: 04/14/2023, Expires: 06/14/2023 [facility] Work Phone: Comment on above: Expected: 04/14/2023 , Expires: 06/14/2023 Start: 04-14-2023 End: 06-14-2023 Hemoglobin A1c in Blood HGB A1C Lab Routine Type 2 diabetes mellitus with stage 3a chronic kidney disease, with long-term current use of insulin (HCC) Expected: 04/14/2023, Expires: 06/14/2023 [facility] Work Phone: Comment on above: Expected: 04/14/2023 , Expires: 06/14/2023 Start: 04-14-2023 End: 06-14-2023 LIPID PANEL, NONFASTING LIPID PANEL, NONFASTING Lab Routine Hypertension, essential Hyperlipidemia, mixed ASHD (arteriosclerotic heart disease) Expected: 04/14/2023, Expires: 06/14/2023 [facility] Work Phone: Comment on above: Expected: 04/14/2023 , Expires: 06/14/2023 Start: 04-14-2023 End: 06-14-2023 Thyrotropin [Units/volume] in Serum or Plasma TSH BLD Lab Routine Postsurgical hypothyroidism Expected: 04/14/2023, Expires: 06/14/2023 [facility] Work Phone: Comment on above: Expected: 04/14/2023 , Expires: 06/14/2023 Start: 04-14-2023 End: 06-14-2023 Urinalysis complete panel - Urine URINALYSIS, WITH MICROSCOPIC Lab Routine Hypertension, essential Hyperlipidemia, mixed Type 2 diabetes mellitus with stage 3a chronic kidney disease, with long-term current use of insulin (HCC) Expected: 04/14/2023, Expires: 06/14/2023 [facility] Work Phone: Comment on above: Expected: 04/14/2023 , Expires: 06/14/2023 Start: 04-06-2023 ANNUAL PCP TEAM PMO MANAGER ALISA DISEASE VISIT ANNUAL PCP TEAM CHRONIC DISEASE VISIT [facility] Start: 04-06-2023 BP CONTROLLED (<130/80) BP CONTROLLE D (<130/80) [facility] Start: 04-06-2023 SHINGRIX VACCINE (2 of 3) LOPES GRIX VACCINE (2 of 3) [facility] Comment on above: Postponed from 03/13 (Insurance Coverage) Start: 02-22-2023 3 comp foot exam completed DIABETIC FOOT EXAM [facility] Start: 02-22-2023 Diabetic foot examination Diabetic F oot Exam [facility] Start: 02-22-2023 Hepatitis B surface antibody level LDL CHOLESTEROL [facility] Start: 02-22-2023 SERUM CREATININE SERUM CREATININE [facility] Start: 02-07-2023 Hemoglobin A1c/Hemoglobin.total in Blood HBA1C [facility] Start: 01-24-2023 ANNUAL PCP TEAM PMO MANAGER ALISA DISEASE VISIT ANNUAL PCP TEAM CHRONIC DISEASE VISIT [facility] Start: 01-24-2023 BP CONTROLLED (<130/80) BP CONTROLLE D (<130/80) [facility] Start: 11-07-2022 End: 01-07-2023 Bacteria identified in Urine by Culture [facility] Work Phone: Comment on above: Expected: 11/07/2022 , Expires: 01/07/2023 Start: 11-07-2022 End: 01-07-2023 Natriuretic peptide.B prohormone N-Terminal [Mass/volume] in Serum or Plasma [facility] Work Phone: Comment on above: Expected: 11/07/2022 , Expires: 01/07/2023 Start: 11-05-2022 ANNUAL PCP TEAM PMO MANAGER ALISA DISEASE VISIT ANNUAL PCP TEAM CHRONIC DISEASE VISIT [facility] Start: 10-26-2022 COVID-19 VACCINE (4 - Additional dose for Kalani series) COVID-19 VACCINE (4 - Additional dose for Kalani series) [facility] Start: 09-26-2022 End: 11-26-2022 Comprehensive metabolic 2000 panel - Serum or Plasma COMP METABOLIC PANEL Lab Routine Medication management Expected: 09/26/2022 (Approximate), Expires: 11/26/2022 [facility] Work Phone: Comment on above: Expected: 09/26/2022 (Approximate), Expires: 11/26/2022 Start: 09-21-2022 End: 11-21-2022 POTASSIUM BLD POTASSIUM BLD Lab Routine Hypokalemia Expected: 09/21/2022, Expires: 11/21/2022 [facility] Work Phone: Comment on above: Expected: 09/21/2022 , Expires: 11/21/2022 Start: 09-04-2022 ADVANCE DIRECTIVE DISCUSSION ADVANCE DIRECTIVE DISCUSSION [facility] Start: 09-04-2022 DEPRESSION ASSESSMENT DEPRESSION ASS ESSMENT [facility] Start: 07-13-2022 Mammography [facility] Start: 07-13-2022 Screening for malign ant neoplasm of breast Mammogram Screening [facility] Start: 06-28-2022 End: 08-28-2022 Thyrotropin [Units/volume] in Serum or Plasma TSH BLD Lab Routine Postsurgical hypothyroidism Expected: 06/28/2022, Expires: 08/28/2022 [facility] Work Phone: Comment on above: Expected: 06/28/2022 , Expires: 08/28/2022 Start: 05-25-2022 Hemoglobin A1c/Hemoglobin.total in Blood HBA1C [facility] Start: 05-24-2022 Colsc flx w/rmvl of tumor polyp lesion snare tq COLONOSCOPY W/LESION REMOVAL [facility] Work Phone: Start: 05-24-2022 Patient discharge [facility] Work Phone: Start: 05-05-2022 Influenza vaccination INFLUENZA (#1) [facility] Start: 04-28-2022 End: 06-28-2022 CBC W Auto Differential panel - Blood CBC + DIFF Lab Routine Diabetes mellitus type 2 (HCC) Uncontrolled type 2 diabetes mellitus with hyperglycemia (HCC) Stage 3a chronic kidney disease (HCC) Expected: 04/28/2022, Expires: 06/28/2022 [facility] Work Phone: Comment on above: Expected: 04/28/2022 , Expires: 06/28/2022 Start: 04-06-2022 End: 10-03-2022 ALBUMIN/CREAT RATIO RND UR ALBUMIN/CREAT RATIO RND UR Lab Routine Diabetes mellitus type 2 (HCC) Uncontrolled type 2 diabetes mellitus with hyperglycemia (HCC) Expected: 04/06/2022, Expires: 06/06/2022 [facility] Work Phone: Comment on above: Expected: 04/06/2022 , Expires: 06/06/2022 Start: 04-06-2022 End: 06-06-2022 CBC W Auto Differential panel - Blood CBC + DIFF Lab Routine Diabetes mellitus type 2 (HCC) Uncontrolled type 2 diabetes mellitus with hyperglycemia (HCC) Stage 3a chronic kidney disease (HCC) Expected: 04/06/2022, Expires: 06/06/2022 [facility] Work Phone: Comment on above: Expected: 04/06/2022 , Expires: 06/06/2022 Start: 04-06-2022 End: 06-06-2022 Thyrotropin [Units/volume] in Serum or Plasma TSH BLD Lab Routine Postsurgical hypothyroidism Expected: 04/06/2022, Expires: 06/06/2022 [facility] Work Phone: Comment on above: Expected: 04/06/2022 , Expires: 06/06/2022 Start: 04-05-2022 SERUM CREATININE SERUM CREATININE [facility] Start: 03-19-2022 HEMOGLOBIN/HEMATOCRIT HEMOGLOBIN/HEM ATOCRIT [facility] Start: 03-19-2022 Hepatitis B screening URINE ALBUMIN:CREATININE RATIO [facility] Start: 03-19-2022 Hepatitis B surface antibody level LDL CHOLESTEROL [facility] Start: 01-02-2022 Hemoglobin A1c/Hemoglobin.total in Blood HBA1C [facility] Start: 12-04-2021 Hepatitis C antibody , confirmatory test DILATED RETINAL EXAM [facility] Start: 11-20-2021 COVID-19 VACCINE (3 - Booster for Kalani series) COVID-19 VACCINE (3 - Booster for Kalani series) [facility] Start: 09-17-2021 COVID-19 VACCINE (3 - Booster for Kalnai series) COVID-19 VACCINE (3 - Booster for Kalani series) [facility] Start: 09-04-2021 ADVANCE DIRECTIVE DISCUSSION ADVANCE DIRECTIVE DISCUSSION [facility] Start: 09-04-2021 DEPRESSION ASSESSMENT DEPRESSION ASS ESSMENT [facility] Start: 04-18-2021 Colonoscopy COLONOSCOPY [facility] Start: 04-18-2021 COLORECTAL CANCER SCREENING COLORECTAL CANCER SCREENING [facility] Start: 09-10-2020 3 comp foot exam completed DIABETIC FOOT EXAM [facility] Start: 11-24-2019 PNEUMOVAX AGE 65 AND OVER WITH 5YR LOOKBACK (#1) PNEUMOVAX AGE 65 AND OVER WITH 5YR LOOKBACK (#1) [facility] Start: 03-13-2015 Shingrix Vaccine (1 of 2) Lopes grix Vaccine (1 of 2) [facility] Start: 03-13-2015 SHINGRIX VACCINE (2 of 3) LOPES GRIX VACCINE (2 of 3) [facility] Start: 03-13-2015 Zoster vaccine hzv l chetan for subcutaneous use ZOSTER (SHINGLES) VACCINE (2 of 3) [facility] Start: 2014 Hepatitis B Vaccine (1 of 3 - Risk 3-dose series) Hepatitis B Vaccine (1 of 3 - Risk 3-dose series) [facility] Start: 2014 RSV Vaccine (1 - 1-d ose 60+ series) RSV Vaccine (1 - 1-dose 60+ series) [facility] Start: 2014 RSV Vaccine (1 - Ris k 60-74 years 1-dose series) RSV Vaccine (1 - Risk 60-74 years 1-dose series) [facility] Start: 05-23-2014 PNEUMOCOCCAL: 65+ (2 - PCV) PNEUMOCOCCAL: 65+ (2 - PCV) [facility] Start: 11-24-1999 COLOGUARD (FIT-DNA) COLOGUARD (FIT-D NA) [facility] Start: 11-24-[address] COLONOGRAPHY [facility] Start: 11-24-1999 FECAL OCCULT BLOOD FECAL OCCULT BLOO D [facility] Start: 11-24-1999 Screening for malign ant neoplasm of colon [facility] Start: 11-24-1999 SIGMOIDOSCOPY SIGMOIDOSCOPY [facility] Start: 1994 Lipid panel LIPID SCREENING [facility] Start: 1994 Screening for malign ant neoplasm of breast MAMMOGRAM SCREENING DISCUSSION [facility] Start: 11-24-1975 Screening for malign ant neoplasm of cervix CERVICAL CANCER SCREENING DISCUSSION [facility] Start: 1972 Anxiety Screening Anxiety Screening [facility] Start: 1972 BP CONTROLLED (<130/80) BP CONTROLLE D (<130/80) [facility] Start: 1972 Depression Screening Depression Scre ening [facility] Start: 1972 SPIROMETRY SPIROMETRY [facility] Start: 1954 Hepatitis C screening HEPATITI S C VIRUS SCREENING [facility] Start: 1954 Potassium [Moles/vol ume] in Serum or Plasma POTASSIUM [facility] Start: 1954 Screening for osteoporosis DEXA SCAN DISCUSSION [facility] Start: 1954 Thyroid stimulating hormone measurement TSH [facility] 24 Hour ECG [facility] Alanine aminotransfe rase [Enzymatic activity/volume] in Serum or Plasma [facility] Albumin [Mass/volume ] in Serum or Plasma [facility] Alkaline phosphatase [Enzymatic activity/volume] in Serum or Plasma [facility] Antibody to lupus La protein measurement [facility] Antibody to SS-A measurement [facility] Bacteria identified in Urine by Culture URINE CULTURE Microbiology Routine UTI symptoms 01/24/2022 2:07 PM EDT [facility] Work Phone: Bacteria identified in Urine by Culture URINE CULTURE Microbiology Routine Preop testing Pain, unspecified 02/16/2023 1:00 PM T [facility] Work Phone: Bilirubin, total measurement [facility] Bilirubin.direct [Mass/volume] in Serum or Plasma [facility] End: 08-02-2025 DBT Breast - bilateral screening JOSE SCREENING W JAYNE Radiology Routine Encounter for screening mammogram for breast cancer 1 Occurrences starting 07/03/2024 until 08/02/2025 [facility] Work Phone: Comment on above: 1 Occurrences starti ng 07/03/2024 until 08/02/2025 DNA double strand Ab [Units/volume] in Serum [facility] Elastase.pancreatic [Presence] in Stool [facility] IgA [Mass/volume] in Serum or Plasma [facility] IgE [Units/volume] i n Serum or Plasma [facility] IgG [Mass/volume] in Serum or Plasma [facility] IgM [Mass/volume] in Serum or Plasma [facility] Lipid 1996 panel - S jose eduardo or Plasma [facility] End: 09-16-2023 [facility] SCREENING [facility] SCREENING Radiology Routine Encounter for screening mammogram for breast cancer 1 Occurrences starting 08/17/2022 until 09/16/2023 [facility] Work Phone: Comment on above: 1 Occurrences starti ng 08/17/2022 until 09/16/2023 End: 08-24-2024 JOSE SCREENING JOSE SCREENING Radiology Routine Encounter for screening mammogram for breast cancer 1 Occurrences starting 07/26/2023 until 08/24/2024 [facility] Work Phone: Comment on above: 1 Occurrences starti ng 07/26/2023 until 08/24/2024 Measurement of occul t blood in stool specimen using immunoassay [facility] Neutrophil cytoplasm ic Ab.classic [Units/volume] in Serum [facility] P-ANCA measurement [facility] Patient Education [facility] Work Phone: Patient referral [facility] Work Phone: Protein measurement [facility] T4 free measurement [facility] Thyroid stimulating hormone measurement [facility] Tissue transglutamin ase IgA Ab [Units/volume] in Serum [facility] Total protein measurement [facility] Troponin T.cardiac [Mass/volume] in Serum or Plasma by High sensitivity method [facility] Urinalysis complete panel - Urine URINALYSIS, WITH MICROSCOPIC Lab Routine UTI symptoms 01/24/2022 2:07 PM EDT [facility] Work Phone: Urine culture [facility] Urine microalbumin/creatinine ratio measurement [facility] End: 01-31-2026 US Carotid arteries - bilateral US CAROTID ARTERIES [facility] Routine Bilateral carotid artery stenosis Audible heartbeat in right ear 1 Occurrences starting 01/31/2025 until 01/31/2026 [facility] Work Phone: Comment on above: 1 Occurrences starti ng 01/31/2025 until 01/31/2026 US Heart [facility] End: 10-25-2024 US Lower extremity veins - bilateral US LEG VEIN DVT [facility] STAT Bilateral leg edema Bilateral calf pain 1 Occurrences starting 10/25/2023 until 10/25/2024 [facility] Work Phone: Comment on above: 1 Occurrences starti ng 10/25/2023 until 10/25/2024 Vitamin D, 25-hydrox y measurement [facility] Immunizations Immunization Date Immunization Notes Care Provider Fa [facility] 05-28-2024 influenza (aIIV4) vaccine, age 65+ yr, quadrivalent, PF (FLUAD QUAD) Padmini Anguiano APRN.CNP Work Phone: [facility] 05-28-2024 Seasonal trivalent influenza vaccine, adjuvanted, preservative free Dr. Willard Henriquez MD Work Phone: [facility] 06-17-2023 COVID-19 vaccine, ag e 12+ yr, season (MODERNA) Willard Henriquez MD Work Phone: [facility] 06-17-2023 influenza, high dose seasonal, preservative-free Willard Henriquez MD Work Phone: [facility] 06-17-2023 influenza virus vacc ine, unspecified formulation Willard Henriquez MD Work Phone: [facility] 06-25-2022 COVID-19 booster vaccine, age 12+ yr, bivalent ([employer]) Jesica Sierra PA-C Work Phone: [facility] 06-25-2022 influenza, high dose seasonal, preservative-free Jesica Sierra PA-C Work Phone: [facility] 04-06-2022 pneumococcal Conjuga te, unspecified formulation Willard Henriquez MD Work Phone: [facility] Work Phone: 04-06-2022 pneumococcal (PCV20) vaccine, 20 valent (PREVNAR 20) Willard Henriquez MD Work Phone: [facility] 07-23-2021 COVID-19 vaccine, ag e 12+ yr ([employer] - PURPLE TOP) Willard Henriquez MD Work Phone: [facility] 07-23-2021 influenza, high-dose , quadrivalent vaccine (FLUZONE HIGH DOSE QUADRIVALENT) Willard Henriquez MD Work Phone: [facility] 11-12-2020 SARS-CoV-2 (COVID-19 ) Ad26 vaccine, recombinant WILLARD CHUNG DO [facility] Comment on above: Result Comment: 2020: [id number] 06-10-2019 influenza virus vacc ine, unspecified formulation WILLARD CHUNG DO [facility] 06-10-2019 influenza, injectabl e, quadrivalent, contains preservative Willard Henriquez MD Work Phone: [facility] 06-04-2018 influenza virus vacc ine, unspecified formulation WILLARD CHUNG DO [facility] 06-04-2018 influenza, injectabl e, quadrivalent, contains preservative Willard Henriquez MD Work Phone: [facility] Work Phone: 05-25-2017 influenza virus vacc ine, unspecified formulation WILLARD CHUNG DO [facility] 05-25-2017 influenza, injectabl e, quadrivalent, contains preservative Willard Henriquez MD Work Phone: [facility] 09-20-2016 influenza virus vacc ine, unspecified formulation WILLARD CHUNG DO [facility] 09-20-2016 influenza, injectabl e, quadrivalent, contains preservative Willard Henriquez MD Work Phone: [facility] 06-30-2015 tetanus and diphther ia toxoids, adsorbed, preservative free, for adult use (2 Lf of tetanus toxoid and 2 Lf of diphtheria toxoid) Willard Henriquez MD Work Phone: [facility] 06-30-2015 tetanus toxoid, redu omayra diphtheria toxoid, and acellular pertussis vaccine, adsorbed WILLARD CHUNG DO [facility] 06-17-2015 influenza virus vacc ine, unspecified formulation WILLARD CHUNG DO [facility] 06-17-2015 influenza, injectabl e, quadrivalent, contains preservative Willard Henriquez MD Work Phone: [facility] Work Phone: 03-26-2015 pertussis vaccine Willard metzger MD Work Phone: [facility] 01-16-2015 zoster vaccine, live WILLARD CHUNG DO [facility] 01-16-2015 zoster vaccine, unspecified formulation Phillip Whelan MD Work Phone: [facility] 08-12-2014 influenza virus vacc ine, unspecified formulation WILLARD CHUNG DO [facility] 08-12-2014 influenza, seasonal, injectable Willard Henriquez MD Work Phone: [facility] Work Phone: 05-23-2013 influenza virus vacc ine, unspecified formulation Willard Henriquez MD Work Phone: [facility] Work Phone: 05-23-2013 pneumococcal polysaccharide vaccine, 23 valent Willard Henriquez MD Work Phone: [facility] Work Phone: 06-19-2010 tetanus and diphther ia toxoids, adsorbed, preservative free, for adult use (2 Lf of tetanus toxoid and 2 Lf of diphtheria toxoid) Willard Henriquez MD Work Phone: [facility] Work Phone: 06-29-2009 novel influenza-H1N1 -09, preservative-free, injectable Willard Henriquez MD Work Phone: [facility] 03-26-2009 pertussis vaccine Willard metzger MD Work Phone: [facility] 04-22-2006 pneumococcal polysaccharide vaccine, 23 valent Willard Henriquez MD Work Phone: [facility] Work Phone: 09-18-1998 diphtheria and tetan us toxoids, adsorbed for pediatric use Willard Henriquez MD Work Phone: [facility] Payers Date Payer Category Payer Managed Care (unspecified) MEDICARE SUPPLEMENT [id number] 2024 Self-pay [id number] 2019 [facility] DICARE SUPPLEMENT [id number] 2019 Medicare MEDICARE MEDICAR E A AND B [id number] 2019-Present [phone] [place] [address] Medicare [id number] 2019 Medicare [id number] 2019 Unknown [facility] DICARE SUPPLEMENT [id number] 2019-Present [phone] [id number] [place] [address] Indemnity [id number] 2019 Unknown [id number] [id number]. [id number] 2019 Medicare [id number] 2019 Unknown [id number] 2016 Unknown [id number] 2006 Unknown [id number] 2006 Unknown [facility] [id number] 1954 Unknown [id number] 2.16.840.1.003743.3.579.2. 627 1954 Unknown [id number] 2.16.840.1.825629.3.579.2. 594 1954 Unknown [id number] 2..840.1.130200.3.579.2. 594 Unknown [id number] 2.16.840.1.787140.3.579.2. 462 Unknown [id number] 2..840.1.720518.3.579.2. 462 Unknown [id number] 2.840.1.205475.3.579.2. 462 Unknown [id number] 2.840.1.710532.3.579.2. 462 Unknown [id number] 2.840.1.812336.3.579.2. 462 Unknown [id number] 2.840.1.142903.3.579.2. 462 Unknown [id number] 2.840.1.264688.3.579.2. 462 Unknown [id number] 2.840.1.937689.3.579.2. 462 Unknown [id number] 2.840.1.673714.3.579.2. 462 Unknown [id number] 2.840.1.619607.3.579.2. 462 Unknown [id number] 2.840.1.014697.3.579.2. 462 Unknown [id number] 2..840.1.303243.3.579.2. 462 Unknown [id number] 2.840.1.032065.3.579.2. 462 Unknown [id number] 2.16.840.1.748234.3.579.2. 462 Unknown [id number] 2.840.1.632598.3.579.2. 462 Unknown [id number] 2.16840.1.908462.3.579.2. 462 Unknown [id number] 2.16840.1.926971.3.579.2. 462 Unknown [id number] 2.16840.1.155234.3.579.2. 462 Unknown [id number] 2.840.1.675110.3.579.2. 462 Unknown [id number] 2.16840.1.596283.3.579.2. 462 Unknown [id number] 2.840.1.437058.3.579.2. 462 Unknown [id number] 2.840.1.918677.3.579.2. 462 Unknown [id number] 2.840.1.336626.3.579.2. 462 Unknown [id number] 2.840.1.769627.3.579.2. 462 Unknown [id number] 2.840.1.653252.3.579.2. 462 Unknown [id number] 2.840.1.309322.3.579.2. 462 Unknown [id number] 2.840.1.561133.3.579.2. 462 Unknown [id number] 2.840.1.852854.3.579.2. 462 Unknown [id number] 2.840.1.260757.3.579.2. 462 Unknown [id number] 2.840.1.127106.3.579.2. 462 Unknown [id number] 2.840.1.660170.3.579.2. 462 Unknown [id number] 2.840.1.461923.3.579.2. 462 Unknown [id number] 2.840.1.840709.3.579.2. 462 Unknown [id number] 2.16.840.1.982477.3.579.2. 462 Unknown [id number] 2.16.840.1.020369.3.579.2. 462 Unknown [id number] 2.16.840.1.197281.3.579.2. 462 Unknown [id number] 2.16.840.1.701076.3.579.2. 462 Unknown [id number] 2.16.840.1.820417.3.579.2. 462 Unknown [id number] 2.16.840.1.664426.3.579.2. 462 Unknown [id number] 2.16.840.1.677504.3.579.2. 462 Unknown [id number] 2.16.840.1.142530.3.579.2. 462 Social History Date Type Detail Facility Start: 02-10-2021 End: 02-16-2023 Never smoked tobacco (finding) [facility] Sex Assigned At [facility] Start: 10-15-2021 End: 11-22-2023 Tobacco smoking status MTIS Unknown if ever smoked [facility] Start: 01-05-2021 None [facility] Start: 1955 Sex Assigned At Female C [facility] Start: 11-05-2021 End: 10-24-2022 Alcohol intake Current non-drinker of alcohol (finding) [facility] Start: 04-28-2020 End: 04-06-2022 History SDOH Alcohol Frequency 1 [facility] Start: 04-28-2020 End: 04-06-2022 History SDOH Social Connections Phone 5 [facility] Start: 04-28-2020 History SDOH Social Connections Amish 98 [facility] Start: 04-28-2020 End: 04-06-2022 History SDOH Social Connections Membership 2 [facility] Start: 06-25-2019 End: 04-06-2022 History SDOH Social Connections Living 3 [facility] Start: 04-28-2020 End: 04-06-2022 History SDOH Physical Activity DPW 0 [facility] Start: 04-27-2020 Education 15 [facility] Start: 01-01-2022 End: 04-26-2022 Exposure to SARS-CoV-2 (event) Not sure [facility] Start: 04-06-2022 History SDOH Financial 4 [facility] Start: 04-26-2011 End: 02-16-2023 Tobacco use and exposure Smokeless tobacco non-user [facility] Work Phone: Start: 11-01-2022 End: 01-31-2025 Alcohol intake Lifetime non-drinker (finding) [facility] Start: 04-05-2022 End: 02-16-2023 History of Social function [facility] Start: 04-05-2022 End: 02-16-2023 Social connection and isolation panel [facility] Do you belong to any clubs or organizations such as buddhist groups, unions, fraternal or athletic groups, or school groups? No [facility] Are you now , , , , never or living with a partner? [facility] How often to you hav e a drink containing alcohol? Never [facility] Start: 01-09-2025 Average Number of Drinks Not on file [facility] Work Phone: How hard is it for y ou to pay for the very basics like food, housing, medical care, and heating Not very hard [facility] Do you feel stress - tense, restless, nervous, or anxious, or unable to sleep at night because your mind is troubled all the time - these days [OSQ] To some extent [facility] (I/We) worried avelina er (my/our) food would run out before (I/we) got money to buy more. Never true [facility] Start: 10-28-2020 Gender identity Identifies as female gender (finding) [facility] Start: 1955 Sex assigned at Not on file [facility] Start: 02-20-2024 End: 11-13-2024 Sex Female (finding) [facility] Start: 01-09-2025 Sexual orientation Heterosexual (lainey bosch) [facility] NEGATED: Highlighted rowStart: NINF History of tobacco use Passive smoker [facility] Medical Equipment Procedure Code Equipment Code Equipment Origin al Text Equipment Identifier Dates Biopsy, artery, temporal SUTURE,LIGA CLIP SM LT-100 FDA Start: 02-12-2024 Biopsy, artery, temporal SUTURE,LIGA CLIP SM LT-100 FDA Start: 02-12-2024 Biopsy, artery, temporal SUTURE,LIGA CLIP SM LT-100 FDA Start: 02-12-2024 Biopsy, artery, temporal SUTURE,LIGA CLIP SM LT-100 FDA Start: 02-12-2024 Biopsy, artery, temporal FDA Start: 02-12-2024 Biopsy, artery, temporal FDA Start: 02-12-2024 Biopsy, artery, temporal FDA Start: 02-12-2024 Biopsy, artery, temporal FDA Start: 02-12-2024 Biopsy, artery, temporal FDA Start: 02-12-2024 Biopsy, artery, temporal FDA Start: 02-12-2024 Insulin U-500 Syringe-Needle (Bd Insulin Syringe U-500) 1/2 mL 31 gauge x 15/64 syringe Start: 11-19-2020 Pen Needle, Diabetic (Bd Ultra-Fine Eva Pen Needle) 32 gauge x 5/32 needle Start: 10-01-2020 Blood Sugar Diagnostic (Freestyle Lite Strips) strip Start: 10-30-2017 End: 02-26-2018 Blood Sugar Diagnostic (Freestyle Lite Strips) strip Start: 02-26-2018 End: 03-05-2018 Blood Sugar Diagnostic (Freestyle Lite Strips) strip Start: 03-05-2018 End: 02-25-2020 Insulin Syringe-Needle U-100 (Bd Insulin Syringe Ultra-Fine) 1 mL 31 gauge x 5/16 syringe Start: 11-25-2019 End: 12-03-2019 Start: 02-14-2017 End: 10-24-2022 Comment on above: Test blood sugar(s) 4 times daily. Dx: E11.65. Insulin: Yes 1 Each twice daily. 3 daily for insulin injections. DX: E11.65, Z79.4 Insulin use: yes Test blood sugar(s) 4 times daily. Dx: 250.02. Insulin: Yes Insulin U-500 Syringe-Needle (Bd Insulin Syringe U-500) 1/2 mL 31 gauge x 15/64 syringe Start: 12-20-2021 Pen Needle, Diabetic (Bd Ultra-Fine Eva Pen Needle) 32 gauge x 5/32 needle Start: 10-01-2020 Blood Sugar Diagnostic (Freestyle Lite Strips) strip Start: 10-30-2017 End: 02-26-2018 Blood Sugar Diagnostic (Freestyle Lite Strips) strip Start: 02-26-2018 End: 03-05-2018 Blood Sugar Diagnostic (Freestyle Lite Strips) strip Start: 03-05-2018 End: 02-25-2020 Insulin Syringe-Needle U-100 (Bd Insulin Syringe Ultra-Fine) 1 mL 31 gauge x 5/16 syringe Start: 11-25-2019 End: 12-03-2019 Insulin U-500 Syringe-Needle (Bd Insulin Syringe U-500) 1/2 mL 31 gauge x 15/64 syringe Start: 11-19-2020 End: 12-20-2021 Insulin U-500 Syringe-Needle (Bd Insulin Syringe U-500) 1/2 mL 31 gauge x 15/64 syringe Start: 12-20-2021 Pen Needle, Diabetic (Bd Ultra-Fine Eva Pen Needle) 32 gauge x 5/32 needle Start: 10-01-2020 Blood Sugar Diagnostic (Freestyle Lite Strips) strip Start: 10-30-2017 End: 02-26-2018 Blood Sugar Diagnostic (Freestyle Lite Strips) strip Start: 02-26-2018 End: 03-05-2018 Blood Sugar Diagnostic (Freestyle Lite Strips) strip Start: 03-05-2018 End: 02-25-2020 Insulin Syringe-Needle U-100 (Bd Insulin Syringe Ultra-Fine) 1 mL 31 gauge x 5/16 syringe Start: 11-25-2019 End: 12-03-2019 Insulin U-500 Syringe-Needle (Bd Insulin Syringe U-500) 1/2 mL 31 gauge x 15/64 syringe Start: 11-19-2020 End: 12-20-2021 Insulin U-500 Syringe-Needle (Bd Insulin Syringe U-500) 1/2 mL 31 gauge x 15/64 syringe Start: 12-20-2021 Pen Needle, Diabetic (Bd Ultra-Fine Eva Pen Needle) 32 gauge x 5/32 needle Start: 10-01-2020 Blood Sugar Diagnostic (Freestyle Lite Strips) strip Start: 10-30-2017 End: 02-26-2018 Blood Sugar Diagnostic (Freestyle Lite Strips) strip Start: 02-26-2018 End: 03-05-2018 Blood Sugar Diagnostic (Freestyle Lite Strips) strip Start: 03-05-2018 End: 02-25-2020 Insulin Syringe-Needle U-100 (Bd Insulin Syringe Ultra-Fine) 1 mL 31 gauge x 5/16 syringe Start: 11-25-2019 End: 12-03-2019 Insulin U-500 Syringe-Needle (Bd Insulin Syringe U-500) 1/2 mL 31 gauge x 15/64 syringe Start: 11-19-2020 End: 12-20-2021 Insulin U-500 Syringe-Needle (Bd Insulin Syringe U-500) 1/2 mL 31 gauge x 15/64 syringe Start: 12-20-2021 Pen Needle, Diabetic (Bd Ultra-Fine Eva Pen Needle) 32 gauge x 5/32 needle Start: 10-01-2020 Blood Sugar Diagnostic (Freestyle Lite Strips) strip Start: 10-30-2017 End: 02-26-2018 Blood Sugar Diagnostic (Freestyle Lite Strips) strip Start: 02-26-2018 End: 03-05-2018 Blood Sugar Diagnostic (Freestyle Lite Strips) strip Start: 03-05-2018 End: 02-25-2020 Insulin Syringe-Needle U-100 (Bd Insulin Syringe Ultra-Fine) 1 mL 31 gauge x 5/16 syringe Start: 11-25-2019 End: 12-03-2019 Insulin U-500 Syringe-Needle (Bd Insulin Syringe U-500) 1/2 mL 31 gauge x 15/64 syringe Start: 11-19-2020 End: 12-20-2021 Insulin U-500 Syringe-Needle (Bd Insulin Syringe U-500) 1/2 mL 31 gauge x 15/64 syringe Start: 12-20-2021 Pen Needle, Diabetic (Bd Ultra-Fine Eva Pen Needle) 32 gauge x 5/32 needle Start: 10-01-2020 Blood Sugar Diagnostic (Freestyle Lite Strips) strip Start: 10-30-2017 End: 02-26-2018 Blood Sugar Diagnostic (Freestyle Lite Strips) strip Start: 02-26-2018 End: 03-05-2018 Blood Sugar Diagnostic (Freestyle Lite Strips) strip Start: 03-05-2018 End: 02-25-2020 Insulin Syringe-Needle U-100 (Bd Insulin Syringe Ultra-Fine) 1 mL 31 gauge x 5/16 syringe Start: 11-25-2019 End: 12-03-2019 Insulin U-500 Syringe-Needle (Bd Insulin Syringe U-500) 1/2 mL 31 gauge x 15/64 syringe Start: 11-19-2020 End: 12-20-2021 Insulin U-500 Syringe-Needle (Bd Insulin Syringe U-500) 1/2 mL 31 gauge x 15/64 syringe Start: 12-20-2021 Pen Needle, Diabetic (Bd Ultra-Fine Eva Pen Needle) 32 gauge x 5/32 needle Start: 10-01-2020 Blood Sugar Diagnostic (Freestyle Lite Strips) strip Start: 10-30-2017 End: 02-26-2018 Blood Sugar Diagnostic (Freestyle Lite Strips) strip Start: 02-26-2018 End: 03-05-2018 Blood Sugar Diagnostic (Freestyle Lite Strips) strip Start: 03-05-2018 End: 02-25-2020 Insulin Syringe-Needle U-100 (Bd Insulin Syringe Ultra-Fine) 1 mL 31 gauge x 5/16 syringe Start: 11-25-2019 End: 12-03-2019 Insulin U-500 Syringe-Needle (Bd Insulin Syringe U-500) 1/2 mL 31 gauge x 15/64 syringe Start: 11-19-2020 End: 12-20-2021 Insulin U-500 Syringe-Needle (Bd Insulin Syringe U-500) 1/2 mL 31 gauge x 15/64 syringe Start: 12-20-2021 Pen Needle, Diabetic (Bd Ultra-Fine Eva Pen Needle) 32 gauge x 5/32 needle Start: 10-01-2020 Blood Sugar Diagnostic (Freestyle Lite Strips) strip Start: 10-30-2017 End: 02-26-2018 Blood Sugar Diagnostic (Freestyle Lite Strips) strip Start: 02-26-2018 End: 03-05-2018 Blood Sugar Diagnostic (Freestyle Lite Strips) strip Start: 03-05-2018 End: 02-25-2020 Insulin Syringe-Needle U-100 (Bd Insulin Syringe Ultra-Fine) 1 mL 31 gauge x 5/16 syringe Start: 11-25-2019 End: 12-03-2019 Insulin U-500 Syringe-Needle (Bd Insulin Syringe U-500) 1/2 mL 31 gauge x 15/64 syringe Start: 11-19-2020 End: 12-20-2021 Insulin U-500 Syringe-Needle (Bd Insulin Syringe U-500) 1/2 mL 31 gauge x 15/64 syringe Start: 12-20-2021 Pen Needle, Diabetic (Bd Ultra-Fine Eva Pen Needle) 32 gauge x 5/32 needle Start: 10-01-2020 Blood Sugar Diagnostic (Freestyle Lite Strips) strip Start: 10-30-2017 End: 02-26-2018 Blood Sugar Diagnostic (Freestyle Lite Strips) strip Start: 02-26-2018 End: 03-05-2018 Blood Sugar Diagnostic (Freestyle Lite Strips) strip Start: 03-05-2018 End: 02-25-2020 Insulin Syringe-Needle U-100 (Bd Insulin Syringe Ultra-Fine) 1 mL 31 gauge x 5/16 syringe Start: 11-25-2019 End: 12-03-2019 Insulin U-500 Syringe-Needle (Bd Insulin Syringe U-500) 1/2 mL 31 gauge x 15/64 syringe Start: 11-19-2020 End: 12-20-2021 Connector Expedi um Sfx 5.5mm A6 Titanium 49-66mm Levi Nonsterile Spine [id number] Start: 02-23-2023 Graft Infuse 20g a Medium Bovine Collagen Rhbmp-2 2x1in Bone Vial Absorbable - [id number] [facility] Start: 02-23-2023 Prime Dbm Hd [id number] Start: 02-23-2023 Levi Expedium 5.5 mm Titanium 65mm Spinal Prebent Line Nonsterile - [id number] Start: 02-23-2023 Expedium 5.50 Ti X25 Set Screw [id number] Start: 02-23-2023 X-Pac Lordotic Cage 10mm X 25mm [id number] Start: 02-23-2023 Insulin U-500 Syringe-Needle (Bd Insulin Syringe U-500) 1/2 mL 31 gauge x 15/64 syringe Start: 12-20-2021 Pen Needle, Diabetic (Bd Ultra-Fine Eva Pen Needle) 32 gauge x 5/32 needle Start: 10-01-2020 Blood Sugar Diagnostic (Freestyle Lite Strips) strip Start: 10-30-2017 End: 02-26-2018 Blood Sugar Diagnostic (Freestyle Lite Strips) strip Start: 02-26-2018 End: 03-05-2018 Blood Sugar Diagnostic (Freestyle Lite Strips) strip Start: 03-05-2018 End: 02-25-2020 Insulin Syringe-Needle U-100 (Bd Insulin Syringe Ultra-Fine) 1 mL 31 gauge x 5/16 syringe Start: 11-25-2019 End: 12-03-2019 Insulin U-500 Syringe-Needle (Bd Insulin Syringe U-500) 1/2 mL 31 gauge x 15/64 syringe Start: 11-19-2020 End: 12-20-2021 Insulin U-500 Syringe-Needle (Bd Insulin Syringe U-500) 1/2 mL 31 gauge x 15/64 syringe Start: 12-20-2021 Pen Needle, Diabetic (Bd Ultra-Fine Eva Pen Needle) 32 gauge x 5/32 needle Start: 10-01-2020 Blood Sugar Diagnostic (Freestyle Lite Strips) strip Start: 10-30-2017 End: 02-26-2018 Blood Sugar Diagnostic (Freestyle Lite Strips) strip Start: 02-26-2018 End: 03-05-2018 Blood Sugar Diagnostic (Freestyle Lite Strips) strip Start: 03-05-2018 End: 02-25-2020 Insulin Syringe-Needle U-100 (Bd Insulin Syringe Ultra-Fine) 1 mL 31 gauge x 5/16 syringe Start: 11-25-2019 End: 12-03-2019 Insulin U-500 Syringe-Needle (Bd Insulin Syringe U-500) 1/2 mL 31 gauge x 15/64 syringe Start: 11-19-2020 End: 12-20-2021 Graft Bone Cancello Chips 30cc - [id number] FDA Start: 02-23-2023 Prime Dbm Hd [id number] Start: 02-23-2023 Prime Dbm Hd 10cc [id number] Start: 02-23-2023 Screw Bone 6mm 55mm Expedium Ti Spine Rick Fix 55mm Levi [id number] Start: 02-23-2023 Screw 7mm Titani um 35mm Bone Fix 5.5mm Levi Spine Cortical [id number] Start: 02-23-2023 Screw Viper 6mm Titanium 50mm Bone Fix 5.5mm Levi Spine Cortical - [id number] Start: 02-23-2023 Screw Depuy Vipe r Rick 7.0x40mm [id number] Start: 02-23-2023 Viper System Cortical Fix Polyaxial Screw 5.5 7x30mm [id number] Start: 02-23-2023 Insulin U-500 Syringe-Needle (Bd Insulin Syringe U-500) 1/2 mL 31 gauge x 15/64 syringe Start: 12-20-2021 Pen Needle, Diabetic (Bd Ultra-Fine Eva Pen Needle) 32 gauge x 5/32 needle Start: 10-01-2020 Blood Sugar Diagnostic (Freestyle Lite Strips) strip Start: 10-30-2017 End: 02-26-2018 Blood Sugar Diagnostic (Freestyle Lite Strips) strip Start: 02-26-2018 End: 03-05-2018 Blood Sugar Diagnostic (Freestyle Lite Strips) strip Start: 03-05-2018 End: 02-25-2020 Insulin Syringe-Needle U-100 (Bd Insulin Syringe Ultra-Fine) 1 mL 31 gauge x 5/16 syringe Start: 11-25-2019 End: 12-03-2019 Insulin U-500 Syringe-Needle (Bd Insulin Syringe U-500) 1/2 mL 31 gauge x 15/64 syringe Start: 11-19-2020 End: 12-20-2021 Insulin U-500 Syringe-Needle (Bd Insulin Syringe U-500) 1/2 mL 31 gauge x 15/64 syringe Start: 12-20-2021 Pen Needle, Diabetic (Bd Ultra-Fine Eva Pen Needle) 32 gauge x 5/32 needle Start: 10-01-2020 Blood Sugar Diagnostic (Freestyle Lite Strips) strip Start: 10-30-2017 End: 02-26-2018 Blood Sugar Diagnostic (Freestyle Lite Strips) strip Start: 02-26-2018 End: 03-05-2018 Blood Sugar Diagnostic (Freestyle Lite Strips) strip Start: 03-05-2018 End: 02-25-2020 Insulin Syringe-Needle U-100 (Bd Insulin Syringe Ultra-Fine) 1 mL 31 gauge x 5/16 syringe Start: 11-25-2019 End: 12-03-2019 Insulin U-500 Syringe-Needle (Bd Insulin Syringe U-500) 1/2 mL 31 gauge x 15/64 syringe Start: 11-19-2020 End: 12-20-2021 Insulin U-500 Syringe-Needle (Bd Insulin Syringe U-500) 1/2 mL 31 gauge x 15/64 syringe Start: 12-20-2021 Pen Needle, Diabetic (Bd Ultra-Fine Eva Pen Needle) 32 gauge x 5/32 needle Start: 10-01-2020 Blood Sugar Diagnostic (Freestyle Lite Strips) strip Start: 10-30-2017 End: 02-26-2018 Blood Sugar Diagnostic (Freestyle Lite Strips) strip Start: 02-26-2018 End: 03-05-2018 Blood Sugar Diagnostic (Freestyle Lite Strips) strip Start: 03-05-2018 End: 02-25-2020 Insulin Syringe-Needle U-100 (Bd Insulin Syringe Ultra-Fine) 1 mL 31 gauge x 5/16 syringe Start: 11-25-2019 End: 12-03-2019 Insulin U-500 Syringe-Needle (Bd Insulin Syringe U-500) 1/2 mL 31 gauge x 15/64 syringe Start: 11-19-2020 End: 12-20-2021 Pen Needle, Diabetic (Bd Ultra-Fine Eav Pen Needle) 32 gauge x 5/32 needle Start: 10-01-2020 Blood Sugar Diagnostic (Freestyle Lite Strips) strip Start: 10-30-2017 End: 02-26-2018 Blood Sugar Diagnostic (Freestyle Lite Strips) strip Start: 02-26-2018 End: 03-05-2018 Blood Sugar Diagnostic (Freestyle Lite Strips) strip Start: 03-05-2018 End: 02-25-2020 Insulin Syringe-Needle U-100 (Bd Insulin Syringe Ultra-Fine) 1 mL 31 gauge x 5/16 syringe Start: 11-25-2019 End: 12-03-2019 Insulin U-500 Syringe-Needle (Bd Insulin Syringe U-500) 1/2 mL 31 gauge x 15/64 syringe Start: 11-19-2020 End: 12-20-2021 Insulin U-500 Syringe-Needle (Bd Insulin Syringe U-500) 1/2 mL 31 gauge x 15/64 syringe Start: 12-20-2021 End: 01-04-2024 Pen Needle, Diabetic (Bd Ultra-Fine Eva Pen Needle) 32 gauge x 5/32 needle Start: 10-01-2020 Blood Sugar Diagnostic (Freestyle Lite Strips) strip Start: 10-30-2017 End: 02-26-2018 Blood Sugar Diagnostic (Freestyle Lite Strips) strip Start: 02-26-2018 End: 03-05-2018 Blood Sugar Diagnostic (Freestyle Lite Strips) strip Start: 03-05-2018 End: 02-25-2020 Insulin Syringe-Needle U-100 (Bd Insulin Syringe Ultra-Fine) 1 mL 31 gauge x 5/16 syringe Start: 11-25-2019 End: 12-03-2019 Insulin U-500 Syringe-Needle (Bd Insulin Syringe U-500) 1/2 mL 31 gauge x 15/64 syringe Start: 11-19-2020 End: 12-20-2021 Insulin U-500 Syringe-Needle (Bd Insulin Syringe U-500) 1/2 mL 31 gauge x 15/64 syringe Start: 12-20-2021 End: 01-04-2024 Pen Needle, Diabetic (Bd Ultra-Fine Eva Pen Needle) 32 gauge x 5/32 needle Start: 10-01-2020 Blood Sugar Diagnostic (Freestyle Lite Strips) strip Start: 10-30-2017 End: 02-26-2018 Blood Sugar Diagnostic (Freestyle Lite Strips) strip Start: 02-26-2018 End: 03-05-2018 Blood Sugar Diagnostic (Freestyle Lite Strips) strip Start: 03-05-2018 End: 02-25-2020 Insulin Syringe-Needle U-100 (Bd Insulin Syringe Ultra-Fine) 1 mL 31 gauge x 5/16 syringe Start: 11-25-2019 End: 12-03-2019 Insulin U-500 Syringe-Needle (Bd Insulin Syringe U-500) 1/2 mL 31 gauge x 15/64 syringe Start: 11-19-2020 End: 12-20-2021 Insulin U-500 Syringe-Needle (Bd Insulin Syringe U-500) 1/2 mL 31 gauge x 15/64 syringe Start: 12-20-2021 End: 01-04-2024 Pen Needle, Diabetic (Bd Ultra-Fine Eva Pen Needle) 32 gauge x 5/32 needle Start: 10-01-2020 Blood Sugar Diagnostic (Freestyle Lite Strips) strip Start: 10-30-2017 End: 02-26-2018 Blood Sugar Diagnostic (Freestyle Lite Strips) strip Start: 02-26-2018 End: 03-05-2018 Blood Sugar Diagnostic (Freestyle Lite Strips) strip Start: 03-05-2018 End: 02-25-2020 Insulin Syringe-Needle U-100 (Bd Insulin Syringe Ultra-Fine) 1 mL 31 gauge x 5/16 syringe Start: 11-25-2019 End: 12-03-2019 Insulin U-500 Syringe-Needle (Bd Insulin Syringe U-500) 1/2 mL 31 gauge x 15/64 syringe Start: 11-19-2020 End: 12-20-2021 Insulin U-500 Syringe-Needle (Bd Insulin Syringe U-500) 1/2 mL 31 gauge x 15/64 syringe Start: 12-20-2021 End: 01-04-2024 Goals Date Patient Goal Desired Activity /State Personal health goal Personal health goal Personal health goal Functional Status Date Assessment Result Facility 02-27-2023 Are you deaf, or do you have serious difficulty hearing No 02/27/2023 2:16 PM Tiara Zepeda RN No [facility] 02-27-2023 Are you blind, or do you have serious difficulty seeing, even when wearing glasses No 02/27/2023 2:16 PM Tiara Zepeda RN No [facility] 02-27-2023 Do you have serious difficulty walking or climbing stairs No 02/27/2023 2:16 PM Tiara Zepeda RN No [facility] 02-27-2023 Do you have difficul ty dressing or bathing No 02/27/2023 2:16 PM Tiara Zepeda RN No [facility] 02-27-2023 Because of a physica l, mental, or emotional condition, do you have difficulty doing errands alone such as visiting a physician's office or shopping Yes 02/27/2023 2:16 PM Tiara Zepeda RN Yes [facility] Mental Status Date Assessment Result Facility 12-17-2024 Cognitive function Voice/Name [facility] Work Phone: 11-29-2024 Cognitive function Voice/Name [facility] Work Phone: 07-21-2023 Cognitive function Voice/Name [facility] Work Phone: 02-27-2023 Because of a physica l, mental, or emotional condition, do you have serious difficulty concentrating, remembering, or making decisions No 02/27/2023 2:16 PM EDT Tiara Yousif RN No [facility] 01-20-2023 Cognitive function Voice/Name [facility] Work Phone: 07-22-2022 Cognitive function Voice/Name [facility] Work Phone: 05-24-2022 Cognitive function Level Of Cons ciousness Awake;Alert;Appropriate [facility] Work Phone: 05-24-2022 Cognitive function Patient Orien tation Person;Place;Time [facility] Work Phone: 01-20-2022 Cognitive function Voice/Name [facility] Work Phone: Clinical Notes 02-02-2017 to 02-07-2025 Telephone Encounter - Willard Henriquez MD - 02/07/2025 4:11 PM EDTTelephone Encounter - Willard Henriquez MD - 02/07/2025 4:11 PM EDTBWillard smith MD - 01/31/2025 10:40 AM EDT Note Date & Type Note Facility 02-07-2025 Telephone encounter Note The following approved medication requests have been transmitted electronically. Requested Prescriptions Signed Prescriptions Disp Refills spironolactone (ALDACTONE) 25 mg tablet 180 tablet 1 Sig: Take 1 tablet by mouth two times a day. Authorizing Provider: WILLARD HENRIQUEZ MD [facility] 02-07-2025 Miscellaneous Notes The following approved medication requests have been transmitted electronically. Requested Prescriptions Signed Prescriptions Disp Refills spironolactone (ALDACTONE) 25 mg tablet 180 tablet 1 Sig: Take 1 tablet by mouth two times a day. Authorizing Provider: WILLARD HENRIQUEZ MD See pt response: i have been taking this medication.i forgot who was getting this for me. i had that yemi is who does this. Rachel Prescription Refill Information The patient has been identified by name and date of : Yes Caregiver verified no other encounters exist for this prescription request: Yes Caregiver confirmed with patient/requestor that no other refills are due, in the near future, with this provider at this time: Yes The last office visit in the department: 01/31/25 Does the patient have a future office visit with this provider/department: Yes, 08/05/25 Requested Prescriptions Pending Prescriptions Disp Refills spironolactone (ALDACTONE) 25 mg tablet 180 tablet 3 Sig: Take 1 tablet by mouth two times a day. *Last rx written 04/24/23 # 180 with 3 refills. Pt would have been out of medication April 2024. Per pharm dispense report rx has not been filled in the last 4 months. message advising to contact office. Jason Martinez LPN February 07, 2025 11:41 AM documented in this encounter [facility] 02-07-2025 Telephone encounter Note See pt response: i have been taking this medication.i forgot who was getting this for me. i had that yemi is who does this. Rachel [facility] 02-07-2025 Telephone encounter Note Prescription Refill Information The patient has been identified by name and date of : Yes Caregiver verified no other encounters exist for this prescription request: Yes Caregiver confirmed with patient/requestor that no other refills are due, in the near future, with this provider at this time: Yes The last office visit in the department: 01/31/25 Does the patient have a future office visit with this provider/department: Yes, 08/05/25 Requested Prescriptions Pending Prescriptions Disp Refills spironolactone (ALDACTONE) 25 mg tablet 180 tablet 3 Sig: Take 1 tablet by mouth two times a day. *Last rx written 04/24/23 # 180 with 3 refills. Pt would have been out of medication April 2024. Per pharm dispense report rx has not been filled in the last 4 months. message advising to contact office. Jason Martinez LPN February 07, 2025 11:41 AM [facility] 01-31-2025 History of Presen t illness Narrative Images from the original note were not included. Chief Complaint Patient presents with: Follow Up HPI Derrellezio German is a 69 year old female who presents here today for 4 week follow up. ECHO completed 01/29/2025, turning in 25 holter monitor tomorrow. She is doing another breathing test on 02/11/2025. Dr. Marques is also having her switch from Trucility to Mounjaro 10 mg. She will hopefully be starting that medication tomorrow. Patient indicated that she is currently off of the iron from Dr. Portillo's office she is waiting for a call back if she can resume. They have her off of due the fact it can increase inflammation and with the Temporal arteritis not sure if contraindicated. . Patient did indicated that she had a positive occult test. Waiting to find what she should do next. Patient was also seen in [place] ER on 11/29/2024 for chest pain and shortness of breath. Was found to have pulmonary emboli: patient on Eliquis twice a day. Had seen Pulm in f/u. Was seen for f/u with us on 01/03/2025 Hospital visit 12/17/2024: Patient recently seen cardio and is set up to get a Echo and halter monitor. If all negative they will get a stress and then possible Cath Recent labs below. Patient continues to have the chest pains and shortness of breath. Her prednisone is at 5 mg a day for the giant cell arteritis. Past medical history, appointments, medications, allergies reviewed. Previous Medical History PAST MEDICAL HISTORY Diagnosis Date Advance directive discussed with patient 04/06/2022 Discussed 04/2022 Allergic rhinitis 02/10/2011 ASHD (arteriosclerotic heart disease) 03/08/[address] Hudson Asthma ([facility]) Dr. 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 History of left heart catheterization HEART CATH X2 STENTS X 3 NASH GARCIA Hyperlipidemia, mixed 06/30/2015 DR HUDSON, Hypertension, essential 06/30/2015 NASH GARCIA CARD- controlled with medication Iron deficiency anemia 01/06/2025 Joint pain PAIN MANAGMENT WILLARD [facility] Living will on file 04/06/2022 DPA: Ever () Lumbar radiculopathy 04/28/2020 R L4 radiculopathy 04/2020 Medicare annual wellness visit, initial 04/06/2022 Medicare part B: 11/03/2019 Last done: 04/06/2022 Medicare annual wellness visit, subsequent 04/24/2023 Mild intermittent asthma without complication ([facility]) 02/10/2011 DENIES PROBLEMS, DENIES INHALERS Morbid obesity ([facility]) 01/10/2012 NATALIE (obstructive sleep apnea) 09/10/2019 On BiPAP and sees VENTURA Schaffer Osteoarthritis of both knees 02/02/2017 Other intervertebral disc displacement, lumbosacral region 02/23/2023 PONV (postoperative nausea and vomiting) Postherpetic neuralgia 03/14/2014 Right mid-trunk area. 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 Psoriasis 10/23/2017 Rash bilateral forearms Rosacea 04/19/2013 Shingles 2014 Spinal stenosis of lumbar region without neurogenic claudication 03/19/2021 DR SANDOVAL FOLLOWING Spondylolisthesis of lumbar region 02/23/2023 Stage 3a chronic kidney disease ([facility]) 03/19/2021 GERALD CALHOUN AND WILLRAD [facility] Temporal arteritis ([facility]) 12/08/2024 Seeing Rheum: Dr. Mcdowell on prednisone Uncontrolled type 2 diabetes mellitus with hyperglycemia ([facility]) 12/24/2019 Seeing GERALD Marte Uses roller walker Vitamin B12 deficiency 01/05/2025 Vitamin D deficiency 03/19/2021 Wears glasses reading Previous Surgical History PAST SURGICAL HISTORY Procedure Laterality Date ANESTH, HYSTERECTOMY 2000 ANESTHESIA NOSE & ACCESSORY SINUSES NOS 1995 CHOLECYSTECTOMY 1989 COLONOSCOPY FLX DX W/COLLJ SPEC WHEN PFRMD 04/18/2011 X3 HEART CATHETERIZATION 2001 HEART CATH X2 2001 & 2019 STENTS X3 2019 PAST SURGICAL HISTORY OF L. knee PAST SURGICAL HISTORY OF kidney stones PAST SURGICAL HISTORY OF Right 2007 Knee PAST SURGICAL HISTORY OF NERVE STIMULATOR AND REMOVAL MELISSA ORTH REMV CATARACT EXTRACAP,INSERT LENS Bilateral Rt 08/2019, Lt 11/2019 STRESS TEST ADENOSINE 05/11/2013 THYROIDECTOMY TOTAL/COMPLETE 2000 TONSILLECTOMY HX 1963 Family History FAMILY HISTORY Problem Relation Age of Onset Diabetes Mother Thyroid Mother Diabetes Father Diabetes Paternal Aunt Patient Allergies ALLERGIES Allergen Reactions Amlodipine Swelling Diflucan [Fluconazo* Hives Diphth,Pertus(Acell* Hives Actos [Pioglitazone* Other: See Comments Edema BLE AND OLGA HANDS Bactrim [Sulfametho* Hives HIVES Betadine [Povidone-* Anaphylaxis SEVERE ALLERGY TO IODINE AND BETADINE Fish Anaphylaxis ALL FISH Iodine Anaphylaxis IV contrast Lipitor [Atorvastat* Rash, Itching Metformin Diarrhea, GI Upset [place] Anaphylaxis Penicillins Unknown NOT SURE A CHILD Sulfa (Sulfonamide * Swelling SWELLING AND HIVES Current Medications Current Outpatient Medications on File Prior to Visit Medication Sig tirzepatide (MOUNJARO) 10 mg/0.5 mL pen injector Inject 10 mg subcutaneously one time a week. Per Endo: Dr. Marques insulin regular human, CONCENTRATED 500 UNIT/ML, (HUMULIN R) 500 unit/mL soln 300 units TID, Per Endo: Dr. Marques rosuvastatin (CRESTOR) 20 mg tablet Take 1 tablet by mouth once daily. cyanocobalamin (B-12 DOTS) 500 mcg tablet Take 1 tablet by mouth once daily. ferrous sulfate (SLOW FE) 137 mg (45 mg iron) TbER Take 1 tablet by mouth every other day. ascorbic acid, vitamin C, (VITAMIN C) 500 mg tablet Take 1 tablet by mouth every other day. predniSONE (DELTASONE) 5 mg tablet Take 1 tablet by mouth once daily. Per Rheum, Dr. Mcdowell apixaban (ELIQUIS) 5 mg tab(s) Take 1 tablet by mouth two times a day. montelukast (SINGULAIR) 10 mg tablet Take 1 tablet by mouth daily at bedtime. metoprolol succinate ER (TOPROL XL) 25 mg 24 hr tablet Take 1 tablet by mouth every morning. potassium chloride (K-TAB) 10 mEq tablet Take 2 tablets by mouth two times a day. Cholecalciferol, Vitamin D3, 125 mcg (5,000 unit) cap Take 1 capsule by mouth every morning. Last dose 02/07/23 gabapentin (NEURONTIN) 100 mg capsule 300 mg by mouth three times/day tocilizumab (ACTEMRA) 162 mg/0.9 mL subcutaneous injection Inject 162 mg subcutaneously one time a week. neomycin sulfate (NEOMYCIN 1%) Irrigate 500 mL as instructed one time only. clopidogrel (PLAVIX) 75 mg tablet Take 1 tablet by mouth once daily. famotidine (PEPCID) 20 mg tablet Take 1 tablet by mouth two times a day. clobetasol (TEMOVATE) 0.05 % ointment Apply to affected area two times a day. spironolactone (ALDACTONE) 25 mg tablet Take 1 tablet by mouth twice daily. polyethylene glycol 3350 17 gram packet Take 1 Packet by mouth once daily. Dissolve dose in 4 - 8 ounces of liquid and take as directed. acetaminophen (TYLENOL) 500 mg tablet Take 2 tablets by mouth every 6 hours as needed for pain. bisacodyl EC (DULCOLAX) 5 mg EC tablet Take 2 tablets by mouth once daily as needed for constipation. polyethylene glycol 3350 17 gram packet Take 1 Packet by mouth once daily as needed. Dissolve dose in 4 - 8 ounces of liquid and take as directed. calcium carbonate (ANTACID CALCIUM ORAL) Take by mouth as needed. Last dose 02/09 melatonin 10 mg cap Take 5-10 mg by mouth daily at bedtime. BIPAP daily at bedtime. dapagliflozin (FARXIGA) 10 mg tablet Take 10 mg by mouth daily with breakfast. Take 1 tablet daily furosemide (LASIX) 40 mg tablet Take 1 tablet by mouth twice daily. Per [facility] EPINEPHrine (EPIPEN) 0.3 mg/0.3 mL auto-injector Use auto-injector x 1 for allergic reaction. isosorbide mononitrate ER (IMDUR) 30 mg 24 hr tablet Take 60 mg by mouth every morning. nitroglycerin sublingual (NITROQUICK) 0.4 mg SL tablet Dissolve 1 tablet under the tongue every 5 minutes as needed for Chest Pain. No current facility-administered medications on file prior to visit. Social History Social History Tobacco Use Smoking status: Never Passive exposure: Never Smokeless tobacco: Never Vaping Use Vaping status: Never Used Substance Use Topics Alcohol use: Never Drug use: Never Review of Symptoms REVIEW OF SYSTEMS GENERAL: No unintentional weight loss, malaise or fevers Ears: hears heart beat in the right ear. NECK: Negative for lumps, goiter, pain and significant neck swelling Sinuses: maxillary and frontal sinuses tender. RESPIRATORY: Negative for hemoptysis, wheezing, No increased dyspnea or shortness of breath. Has been coughing up some yellow mucus in th past week. Her maxillary sinuses have been tender. With her seasonal allergy issues it's not un common to have nasal drainage or productive cough but is usually clear. CARDIOVASCULAR: Negative for increased leg swelling, hypertension, CH. See HPI. Still noting the heart palpitations GI: No vomiting. Occasional nausea. Having some diarrhea ad is seeing Gastro. NEURO: No history of frequent headaches, syncope, paralysis, seizures or tremors. Complains of feeling a burning sensation in the front of her legs. Worse at night for several weeks to months. SEE HPI EXAM: BP 133/71 Pulse 68 Resp 20 Wt (!) 140.2 kg (309 lb) SpO2 98% BMI 56.52 kg/m Last 5 Encounter Wt Readings: Date: Wt: 01/31/2025 140.2 kg (309 lb) 01/03/2025 139.3 kg (307 lb) 12/05/2024 142 kg (313 lb 0.9 oz) 11/29/2024 143.8 kg (317 lb) 05/31/2024 138.3 kg (305 lb) General Appearance: Well appearing, alert, in no acute distress, well-hydrated, well nourished.. Ears: External ears normal, canals clear. Nose/Sinuses: Nares normal, septum midline, mucosa normal, no drainage or sinus tenderness. Oropharynx: Lips, mucosa, and tongue normal, teeth and gums normal, oropharynx normal. Neck: Supple, no adenopathy; thyroid symmetric, normal size, no bruits. Lungs: Lungs clear to auscultation. No wheezing, rhonchi, rales.. Heart: RRR without murmur, gallop, or rubs. No ectopy. Abdomen: Normal abdominal exam, Abdomen soft, non-tender. Bowel sounds normal. No masses, organomegaly. Extremities: No deformities. Has her support socks and wraps on. Peripheral Pulses: Normal. Neurologic: Gait assisted with walker. Sensation grossly intact.. Health Maintenance List RSV Vaccine(1 - Risk 60-74 years 1-dose series) Never done Shingrix Vaccine(1 of 2) due on 03/13/2015 Mammogram Screening due on 07/13/2022 Diabetic Foot Exam due on 02/22/2023 Covid-19 Vaccine(2023- season) due on 05/05/2024 Advance Directive Discussion due on 09/04/2024 Dilated Retinal Exam due on 02/01/2025 Urine Albumin:Creatinine Ratio due on 05/31/2025 Depression Screening due on 05/31/2025 Anxiety Screening due on 05/31/2025 DTaP,Tdap,Td Vaccine(5 - Td or Tdap) due on 06/30/2025 HbA1C due on 07/23/2025 LDL Cholesterol due on 11/21/2025 Serum Creatinine due on 11/21/2025 Hemoglobin/Hematocrit due on 11/21/2025 Annual PCP Team Chronic Disease Visit due on 01/03/2026 BP Controlled (<130/80) due on 01/03/2026 Colorectal Cancer Screening due on 05/24/2027 Bone Density Screening Completed Influenza Vaccine Completed Hepatitis C Screening Completed Pneumococcal Vaccine: 50+ Completed Cervical Cancer Screening Discontinued Data reviewed Latest Ref Rng 11/11/2024 11/21/2024 01/03/2025 01/20/2025 WBC 3.70 - 11.00 k/uL 11.18 (H) RBC 3.90 - 5.20 m/uL 4.45 Hemoglobin 11.5 - 15.5 g/dL 11.4 (L) Hematocrit 36.0 - 46.0 % 39.6 MCV 80.0 - 100.0 fL 89.0 MCH 26.0 - 34.0 pg 25.6 (L) MCHC 30.5 - 36.0 g/dL 28.8 (L) RDW-CV 11.5 - 15.0 % 16.6 (H) Platelet Count 150 - 400 k/uL 234 MPV 9.0 - 12.7 fL 9.6 Neut% % 77.3 Abs Neut (ANC) 1.45 - 7.50 k/uL 8.64 (H) Lymph% % 12.4 Abs Lymph 1.00 - 4.00 k/uL 1.39 [place]% % 6.5 Abs [place] <0.87 k/uL 0.73 Eosin% % 1.3 Abs Eosin <0.46 k/uL 0.14 Baso% % 0.6 Abs Baso <0.11 k/uL 0.07 Immature Gran % % 1.9 IMMATURE GRANS (ABS) <0.10 k/uL 0.21 (H) NRBC /100 WBC 0.3 Absolute nRBC <0.01 k/uL 0.03 (H) DTYPE Auto Protein, Total 6.3 - 8.0 g/dL 6.3 Albumin 3.9 - 4.9 g/dL 4.1 Calcium 8.5 - 10.2 mg/dL 9.9 Bilirubin, Total 0.2 - 1.3 mg/dL 0.7 Alkaline Phosphatase 34 - 123 U/L 57 AST 13 - 35 U/L 29 ALT 7 - 38 U/L 22 Glucose 74 - 99 mg/dL 107 (H) BUN 7 - 21 mg/dL 9 Creatinine 0.58 - 0.96 mg/dL 1.24 (H) Sodium 136 - 144 mmol/L 145 (H) Potassium 3.7 - 5.1 mmol/L 3.6 (L) Chloride 98 - 107 mmol/L 102 CO2 22 - 30 mmol/L 24 Anion Gap 8 - 15 mmol/L 19 (H) eGFR >=60 mL/min/1.73m 47 (L) Total Cholesterol, Nonfasting <200 mg/dL 127 Triglycerides, Nonfasting <150 mg/dL 167 (H) HDL Cholesterol, Nonfasting >39 mg/dL 56 LDL Cholesterol Calculated, Nonfasting <100 mg/dL 38 Non HDL Cholesterol, Nonfasting <130 mg/dL 71 VLDL Cholesterol, Nonfasting <30 mg/dL 33 (H) Total Chol/HDL Ratio, Nonfasting <5.10 mg/dL 2.27 LDL/HDL Ratio, Nonfasting <2.54 mg/dL 0.68 Iron 41 - 186 ug/dL 49 TIBC 232 - 386 ug/dL 404 (H) Transferrin Saturation 15.0 - 57.0 % 12.1 (L) Hemoglobin A1C 0 - 5.7 % 7.5 ! (E) 7.5 ! (E) TSH 0.270 - 4.200 mIU/L 1.020 Vitamin B12 232 - 1,245 pg/mL 271 Folate >4.7 ng/mL 6.0 Ferritin 14.7 - 205.1 ng/mL 26.6 Assessment and Plan ASSESSMENT/PLAN: 1. Type 2 diabetes mellitus with stage 3a chronic kidney disease, with long-term current use of insulin (HCC) - ICD9: 250.40, 585.3, V58.67, ICD10: E11.22, N18.31, Z79.4 (primary diagnosis) - follows with [facility] for management 2. Diabetic eye exam (HCC) - ICD9: V72.0, 250.00, ICD10: Z01.00, E11.9 - up to date 3. Hypertension, essential - ICD9: 401.9, ICD10: I10 - Controlled - Continue current medications - Recommend home blood pressure monitoring, to bring results to next visit - Encouraged sodium restriction, DASH or Mediterranean diet - Recommend regular aerobic exercise - Discussed need for and benefit of weight loss. BMI 56.52 kg/(m^2) 4. Hyperlipidemia, mixed - ICD9: 272.2, ICD10: E78.2 - Controlled - Continue current medications - Counseled on healthy diet and regular exercise - Discussed need for and benefit of weight loss. BMI 56.52 kg/(m^2) 5. Gastroesophageal reflux disease, unspecified whether esophagitis present - ICD9: 530.81, ICD10: K21.9 - Continue treatment with Pepcid 20 mg BID 6. Iron deficiency anemia, unspecified iron deficiency anemia type - ICD9: 280.9, ICD10: D50.9 - of iron for now per Gastro and following with them 7. Bilateral carotid artery stenosis - ICD9: 433.10, 433.30, ICD10: I65.23 Check - US CAROTID ARTERIES [facility] - cont Crestor 8. ASHD (arteriosclerotic heart disease) - ICD9: 414.00, ICD10: I25.10 - cont current Tx and f/u wit cardio 9. Acute on chronic diastolic congestive heart failure (HCC) - ICD9: 428.33, 428.0, ICD10: I50.33 - as per #8 10. Postsurgical hypothyroidism - ICD9: 244.0, ICD10: E89.0 - on meds managed per Endo 11. Stage 3a chronic kidney disease (HCC) - ICD9: 585.3, ICD10: N18.31 - eGFR: 47 Stable - Counseled on avoiding NSAIDs, adequate hydration - ACEi/ARB prescribed: This patient does not have an active medication from one of the medication groupers. - SGLT2i prescribed: dapagliflozin propanediol 12. Mild intermittent asthma without complication (HCC) - ICD9: 493.90, ICD10: J45.20 - Mild intermittent asthma stable - Avoidance of triggers recommended - following with [facility] 13. Temporal arteritis (HCC) - ICD9: 446.5, ICD10: M31.6 - on prednisone and managed per Rheum 14. Morbid obesity due to excess calories (HCC) - ICD9: 278.01, ICD10: E66.01 Weight decreasing - Behavioral intervention 15. Postherpetic neuralgia - ICD9: 053.19, ICD10: B02.29 - cont the gabapentin 16. Vitamin B12 deficiency - ICD9: 266.2, ICD10: E53.8 - cont replacement 17. Vitamin D deficiency - ICD9: 268.9, ICD10: E55.9 - cot replacement 18. Lumbar radiculopathy - ICD9: 724.4, ICD10: M54.16 - on gabapentin 19. Spinal stenosis, lumbar region, with neurogenic claudication - ICD9: 724.03, ICD10: M48.062 - as per #18 20. Multiple subsegmental pulmonary emboli without acute cor pulmonale (HCC) - ICD9: 415.19, ICD10: I26.94 - on eliquis and seeing Pulm 21. Audible heartbeat in right ear - ICD9: 388.8, ICD10: H93.8X1 Check - US CAROTID ARTERIES [facility] 22. Bacterial sinusitis - ICD9: 473.9, 041.9, ICD10: J32.9, B96.89 - Will begin treatment with Levaquin 50 mg a day for 10 days. 23. Burning sensation of lower extremity - ICD9: 782.0, ICD10: R20.8 - will check NCS and [facility] Requested Prescriptions Signed Prescriptions Disp Refills levoFLOXacin (LEVAQUIN) 500 mg tablet 10 tablet 0 Sig: Take 1 tablet by mouth once daily for 10 days. F/u 6 month extensive. I spent a total of 41 minutes on the date of the service which included preparing to see the patient, [id number] patient care, completing clinical documentation, performing a medically appropriate examination, counseling and educating the patient/family/caregiver and ordering medications, tests, or procedures. Willard Henriquez MD documented in this encounter [facility] 01-31-2025 Note HNO ID: [id number] Author: WILLARD HENRIQUEZ MD Service: ? Author Type: Physician Type: Progress Notes Filed: 01/31/2025 12:51 Note Text: Chief Complaint Patient presents with: Follow Up HPI Derrell German is a 69 year old female who presents here today for 4 week follow up. ECHO completed 01/29/2025, turning in 25 holter monitor tomorrow. She is doing another breathing test on 02/11/2025. Dr. Marques is also having her switch from Trucility to Mounjaro 10 mg. She will hopefully be starting that medication tomorrow. Patient indicated that she is currently off of the iron from Dr. Portillo's office she is waiting for a call back if she can resume. They have her off of due the fact it can increase inflammation and with the Temporal arteritis not sure if contraindicated. . Patient did indicated that she had a positive occult test. Waiting to find what she should do next. Patient was also seen in [place] ER on 11/29/2024 for chest pain and shortness of breath. Was found to have pulmonary emboli: patient on Eliquis twice a day. Had seen Pulm in f/u. Was seen for f/u with us on 01/03/2025 Hospital visit 12/17/2024: Patient recently seen cardio and is set up to get a Echo and halter monitor. If all negative they will get a stress and then possible Cath Recent labs below. Patient continues to have the chest pains and shortness of breath. Her prednisone is at 5 mg a day for the giant cell arteritis. Past medical history, appointments, medications, allergies reviewed. Previous Medical History PAST MEDICAL HISTORY Diagnosis Date Advance directive discussed with patient 04/06/2022 Discussed 04/2022 Allergic rhinitis 02/10/2011 ASHD (arteriosclerotic heart disease) 03/08/[address] Hudson Asthma ([facility]) Dr. 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 History of left heart catheterization HEART CATH X2 STENTS X 3 NASH GARCIA Hyperlipidemia, mixed 06/30/2015 DR HUDSON, Hypertension, essential 06/30/2015 NASH GARCIA CARD- controlled with medication Iron deficiency anemia 01/06/2025 Joint pain PAIN MANAGMENT WILLARD CRUZ Living will on file 04/06/2022 DPA: Ever () Lumbar radiculopathy 04/28/2020 R L4 radiculopathy 04/2020 Medicare annual wellness visit, initial 04/06/2022 Medicare part B: 11/03/2019 Last done: 04/06/2022 Medicare annual wellness visit, subsequent 04/24/2023 Mild intermittent asthma without complication ([facility]) 02/10/2011 DENIES PROBLEMS, DENIES INHALERS Morbid obesity ([facility]) 01/10/2012 NATALIE (obstructive sleep apnea) 09/10/2019 On BiPAP and sees VENTURA Schaffer Osteoarthritis of both knees 02/02/2017 Other intervertebral disc displacement, lumbosacral region 02/23/2023 PONV (postoperative nausea and vomiting) Postherpetic neuralgia 03/14/2014 Right mid-trunk area. 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 Psoriasis 10/23/2017 Rash bilateral forearms Rosacea 04/19/2013 Shingles 2014 Spinal stenosis of lumbar region without neurogenic claudication 03/19/2021 DR SANDOVAL FOLLOWING Spondylolisthesis of lumbar region 02/23/2023 Stage 3a chronic kidney disease ([facility]) 03/19/2021 GERALD CALHOUN AND WILLARD HARRINGTON Temporal arteritis ([facility]) 12/08/2024 Seeing Rheum: Dr. Mcdowell on prednisone Uncontrolled type 2 diabetes mellitus with hyperglycemia ([facility]) 12/24/2019 Seeing GERALD Marte Uses roller walker Vitamin B12 deficiency 01/05/2025 Vitamin D deficiency 03/19/2021 Wears glasses reading Previous Surgical History PAST SURGICAL HISTORY Procedure Laterality Date ANESTH, HYSTERECTOMY 2000 ANESTHESIA NOSE AND ACCESSORY SINUSES NOS 1996 CHOLECYSTECTOMY 1989 COLONOSCOPY FLX DX W/COLLJ SPEC WHEN PFRMD 04/18/2011 X3 HEART CATHETERIZATION 2002 HEART CATH X2 2001 AND 2019 STENTS X3 2019 PAST SURGICAL HISTORY OF L. knee PAST SURGICAL HISTORY OF kidney stones PAST SURGICAL HISTORY OF Right 2007 Knee PAST SURGICAL HISTORY OF NERVE STIMULATOR AND REMOVAL MELISSA ORTH REMV CATARACT EXTRACAP,INSERT LENS Bilateral Rt 08/2019, Lt 11/2019 STRESS TEST ADENOSINE 05/11/2013 THYROIDECTOMY TOTAL/COMPLETE 2000 TONSILLECTOMY HX 1963 Family History FAMILY HISTORY Problem Relation Age of Onset Diabetes Mother Thyroid Mother Diabetes Father Diabetes Paternal Aunt Patient Allergies ALLERGIES Allergen Reactions Amlodipine Swelling Diflucan [Fluconazo* Hives Diphth,Pertus(Acell* Hives Actos [Pioglitazone* Other: See Comments Edema BLE AND OLGA HANDS Bact (more content not included)... [facility] 01-31-2025 Evaluation note Diagnosis Type 2 diabetes mellitus with stage 3a chronic kidney disease, with long-term current use of insulin ([facility])- Primary Diabetic eye exam ([facility]) Type II or unspecified type diabetes mellitus without mention of complication, not stated as uncontrolled Hypertension, essential Unspecified essential hypertension Hyperlipidemia, mixed Mixed hyperlipidemia Gastroesophageal reflux disease, unspecified whether esophagitis present Iron deficiency anemia, unspecified iron deficiency anemia type Bilateral carotid artery stenosis Occlusion and stenosis of carotid artery without mention of cerebral infarction ASHD (arteriosclerotic heart disease) Coronary atherosclerosis of unspecified type of vessel, [place] or graft Acute on chronic diastolic congestive heart failure (HCC) Acute on chronic diastolic heart failure Postsurgical hypothyroidism Stage 3a chronic kidney disease (HCC) Mild intermittent asthma without complication (HCC) Unspecified asthma Temporal arteritis (HCC) Giant cell arteritis Morbid obesity due to excess calories (HCC) Postherpetic neuralgia Herpes zoster with other nervous system complications Vitamin B12 deficiency Other B-complex deficiencies Vitamin D deficiency Unspecified vitamin D deficiency Lumbar radiculopathy Thoracic or lumbosacral neuritis or radiculitis, unspecified Spinal stenosis, lumbar region, with neurogenic claudication Multiple subsegmental pulmonary emboli without acute cor pulmonale (HCC) Audible heartbeat in right ear Bacterial sinusitis Unspecified sinusitis (chronic) Burning sensation of lower extremity documented in this encounter [facility]05-29-2025 NoteHNO ID: [id number] Author: LOVE FREEMAN LPN Service: ? Author Type: LICENSED NURSE Type: Progress Notes Filed: 01/30/2025 14:24 Note Text: Scan on 01/29/2025 10:49 AM by Mary Dow PA-C: [facility] History of Present illness Narrative* Love Freeman LPN - 01/30/2025 2:24 PM EDT Scan on 01/29/2025 10:49 AM by Mary Dow PA-C: Echo [facility] NoteHNO ID: [id number] Author: LOVE FREEMAN LPN Service: ? Author Type: LICENSED NURSE Type: Progress Notes Filed: 01/29/2025 07:41 Note Text: Scan on 01/28/2025 3:01 PM by Mary Dow PA-C: [facility] History of Present illness Narrative* Love Freeman LPN - 01/29/2025 7:41 AM EDT Scan on 01/28/2025 3:01 PM by Mary Dow PA-C: Consultation - Endocrinology [facility] NoteHNO ID: [id number] Author: LOVE FREEMAN LPN Service: ? Author Type: LICENSED NURSE Type: Progress Notes Filed: 01/22/2025 07:46 Note Text: Scan on 01/21/2025 3:06 PM by Mary Dow PA-C: Miscellaneous Lab [facility]05-20-2025 NoteHNO ID: [id number] Author: LOVE FREEMAN LPN Service: ? Author Type: LICENSED NURSE Type: Progress Notes Filed: 01/21/2025 12:03 Note Text: Scan on 01/20/2025 1:42 PM by Mary Dow PA-C: Miscellaneous Lab Scan on 01/21/2025 9:21 AM by Mary Dow PA-C: Miscellaneous Lab [facility]05-20-2025 History of Present illness Narrative* Love Freeman LPN - 01/21/2025 8:43 AM EDT Scan on 01/20/2025 1:42 PM by Mary Dow PA-C: Miscellaneous Lab Scan on 01/21/2025 9:21 AM by Mary Dow PA-C: Miscellaneous Lab [facility] NoteHNO ID: [id number] Author: LOVE FREEMAN LPN Service: ? Author Type: LICENSED NURSE Type: Progress Notes Filed: 01/17/2025 09:03 Note Text: Scan on 01/16/2025 4:18 PM by Mary Dow PA-C: [facility] History of Present illness Narrative* Love Freeman LPN - 01/17/2025 9:02 AM EDT Scan on 01/16/2025 4:18 PM by Provider, TRINA Hernandez: Chemistry [facility]25 NoteHNO ID: [id number] Author: SILKE ERAZO MA Service: ? 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 Type: Progress Notes Filed: 01/13/2025 15:16 Note Text: POPULATION HEALTH NAVIGATION OUTREACH Action/FYI UPDATED APPOINTMENT NOTES HCC CLOSURE Topic Due (Y or N) Comments Medicare Wellness Y PCP Follow up Y Colorectal Cancer Screening Controlling Blood Pressure A1C HCC Y Flu Vaccine Care Everywhere Reviewed MyChart Activation Updated Appointment Note Y Reason for Outreach Care Gap/HCC or Scheduling Wellness Visits Care Gaps due: Medicare Annual Wellness Visit Patient Contacted: Unable or unnecessary to reach patient: HCC related Patient already scheduled Updated appointment notes Navigation Signature: Silke Erazo MA January 13, 2025 3:14 [facility]05-12-2025 History of Present illness Narrative* Silke Erazo MA - 01/13/2025 3:13 PM EDT POPULATION HEALTH NAVIGATION OUTREACH Action/FYI UPDATED APPOINTMENT NOTES HCC CLOSURE Topic Due (Y or N) Comments Medicare Wellness Y PCP Follow up Y Colorectal Cancer Screening Controlling Blood Pressure A1C HCC Y Flu Vaccine Care Everywhere Reviewed MyChart Activation Updated Appointment Note Y Reason for Outreach Care Gap/HCC or Scheduling Wellness Visits Care Gaps due: Medicare Annual Wellness Visit Patient Contacted: Unable or unnecessary to reach patient: HCC related Patient already scheduled Updated appointment notes Navigation Signature: Silke Erazo MA January 13, 2025 3:14 PM [facility] NotePatient Outreach (NETNAV) DERRELL GERMAN ([id number]) 1955 F Date Time Provider Department 01/13/25 SILKE ERAZO During your visit today, we recorded the following information about you: Silke Erazo MA 01/13/2025 3:16 PM Signed POPULATION HEALTH NAVIGATION OUTREACH Action/FYI UPDATED APPOINTMENT NOTES HCC CLOSURE Topic Due (Y or N) Comments Medicare Wellness Y PCP Follow up Y Colorectal Cancer Screening Controlling Blood Pressure A1C HCC Y Flu Vaccine Care Everywhere Reviewed MyChart Activation Updated Appointment Note Y Reason for Outreach Care Gap/HCC or Scheduling Wellness Visits Care Gaps due: Medicare Annual Wellness Visit Patient Contacted: Unable or unnecessary to reach patient: HCC related Patient already scheduled Updated appointment notes Navigation Signature: Silke Erazo MA January 13, 2025 3:14 PM Allergies As of Date: 01/13/2025 Noted Allergy Reaction AMLODIPINE 02/16/2023 7 - Swelling DIFLUCAN (FLUCONAZOLE) 07/06/2015 4 - Hives DIPHTH,PERTUS(ACELL),TETANUS 02/16/2023 4 - Hives ACTOS (PIOGLITAZONE HCL) 07/31/2007 14 - Other: See Comments Comments: Edema BLE AND OLGA HANDS BACTRIM (SULFAMETHOXAZOLE-TRIMETH*08/18/2005 4 - Hives Comments: HIVES BETADINE (POVIDONE-IODINE) 08/18/2005 10 - Anaphylaxis Comments: SEVERE ALLERGY TO IODINE AND BETADINE FISH 08/18/2005 10 - Anaphylaxis Comments: ALL FISH IODINE 08/18/2005 10 - Anaphylaxis Comments: IV contrast LIPITOR (ATORVASTATIN CALCIUM) 03/01/2010 2 - Rash 9 - Itching METFORMIN 03/14/2014 6 - Diarrhea 8 - GI Upset ORANGE 08/18/2005 10 - Anaphylaxis PENICILLINS 08/18/2005 16 - Unknown Comments: NOT SURE A CHILD SULFA (SULFONAMIDE ANTIBIOTICS) 12/02/2005 7 - Swelling Comments: SWELLING AND HIVES Date Reviewed: 01/03/2025 Reviewed by: Willard Henriquez MD - Fully Assessed Reason for Visit: Population Health Navigation Outreach [3910] Cmt: ACO WORKBEMIHAI TORRES PCSA Prescriptions as of 01/13/2025 - rosuvastatin (CRESTOR) 20 mg tablet Take 1 tablet by mouth once daily. - cyanocobalamin (B-12 DOTS) 500 mcg tablet Take 1 tablet by mouth once daily. - ferrous sulfate (SLOW FE) 137 mg (45 mg iron) TbER Take 1 tablet by mouth every other day. - ascorbic acid, vitamin C, (VITAMIN C) 500 mg tablet Take 1 tablet by mouth every other day. - predniSONE (DELTASONE) 5 mg tablet Take 1 tablet by mouth once daily. Per Rheum, Dr. Mcdowell - apixaban (ELIQUIS) 5 mg tab(s) Take 1 tablet by mouth two times a day. - montelukast (SINGULAIR) 10 mg tablet Take 1 tablet by mouth daily at bedtime. - metoprolol succinate ER (TOPROL XL) 25 mg 24 hr tablet Take 1 tablet by mouth every morning. - potassium chloride (K-TAB) 10 mEq tablet Take 2 tablets by mouth two times a day. - Cholecalciferol, Vitamin D3, 125 mcg (5,000 unit) cap Take 1 capsule by mouth every morning. Last dose 02/07/23 - insulin regular human, CONCENTRATED 500 UNIT/ML, (HUMULIN R) 500 unit/mL soln 150 units before breakfast 180 units before lunch 150 units before dinner 80-100 units at bedtime Depends on BS tests - gabapentin (NEURONTIN) 100 mg capsule 300 mg by mouth three times/day - tocilizumab (ACTEMRA) 162 mg/0.9 mL subcutaneous injection Inject 162 mg subcutaneously one time a week. - neomycin sulfate (NEOMYCIN 1%) Irrigate 500 mL as instructed one time only. - clopidogrel (PLAVIX) 75 mg tablet Take 1 tablet by mouth once daily. - famotidine (PEPCID) 20 mg tablet Take 1 tablet by mouth two times a day. - clobetasol (TEMOVATE) 0.05 % ointment Apply to affected area two times a day. - spironolactone (ALDACTONE) 25 mg tablet Take 1 tablet by mouth twice daily. - polyethylene glycol 3350 17 gram packet Take 1 Packet by mouth once daily. Dissolve dose in 4 - 8 ounces of liquid and take as directed. - acetaminophen (TYLENOL) 500 mg tablet Take 2 tablets by mouth every 6 hours as needed for pain. - bisacodyl EC (DULCOLAX) 5 mg EC tablet Take 2 tablets by mouth once daily as needed for constipation. - polyethylene glycol 3350 17 gram packet Take 1 Packet by mouth once daily as needed. Dissolve dose in 4 - 8 ounces of liquid and take as directed. - calcium carbonate (ANTACID CALCIUM ORAL) Take by mouth as needed. Last dose 02/09 - melatonin 10 mg cap Take 5-10 mg by mouth daily at bedtime. - BIPAP daily at bedtime. - dapagliflozin (FARXIGA) 10 mg tablet Take 10 mg by mouth daily with breakfast. Take 1 tablet daily - TRULICITY 3 mg/0.5 mL pen injector Inject 4.5 mg subcutaneously one time a week. Monday - furosemide (LASIX) 40 mg tablet Take 1 tablet by mouth twice daily. Per [place] - EPINEPHrine (EPIPEN) 0.3 mg/0.3 mL auto-injector Use auto-injector x 1 for allergic reaction. - isosorbide mononitrate ER (IMDUR) 30 mg 24 hr tablet Take 60 mg by mouth every mo (more content not included)...[facility] History of Present illness Narrative* Phillip Whelan MD - 01/10/2025 2:40 PM EDT Images from the original note were not included. NEURO-OPHTHALMOLOGY CLINIC VISIT History of Present Illness: HPI Derrell German is a 69 y.o. female with ION who is present today for a 6 months follow up. Pt states that distance and reading vision is unchanged. Pt denies any eye pain or eye discomfort OU. Pt denies new flashes of light or floaters OU. Pt denies having double vision. Pt denies changes or decreases in color vision or brightness of vision. Pt notes she has bilateral blood clots in her lungs which was diagnosed in November 2024. Pt notes getting headaches from fatigue from eyes, denies migraines. Pt denies whooshing, ringing or pulsatile tinnitus in either ear. Current Ocular Medications: Artificial Tears Prednisone 5 mg every day Last edited by Elizabeth Mcclure on 01/10/2025 2:25 PM. Review of Outside of Prior Records: Outside Records: referring records reviewed CareEverywhere: reports reviewed Past Medical, Surgical, and Social History: Derrell has a past medical history of Arthritis, Asthma, Cardiovascular disease, Diabetes mellitus, Essential hypertension, benign, History of kidney problems, Migraine, and Stomach ulcer. Derrell has no past surgical history on file. Derrell family history includes Alzheimer's in her mother; Arthritis - Osteo in her mother; Cataract in her father and mother; Diabetes in her father and mother; Heart Disease - Other in her father andmother; Hypertension in her father and mother; Lipid Disorder in her father and mother. Derrell reports that she has never smoked. She has never used smokeless tobacco. She reports that shedoes not drink alcohol and does not use drugs. Current Medications: Current Outpatient Medications: Cyanocobalamin 500 MCG tablet, Take 1 tablet by mouth daily., Disp: , Rfl: Ferrous Sulfate ER (Slow Fe) 45 MG Tab CR, Take 1 tablet by mouth Every other day., Disp: , Rfl: Clobetasol 0.05 % Ointment, Apply 1 Application topically 2 times daily., Disp: , Rfl: Clopidogrel 75 MG tablet, Take 1 tablet by mouth daily., Disp: , Rfl: Eliquis 5 MG tablet, Take 1 tablet by mouth every 12 hours., Disp: , Rfl: Erythromycin 5 MG/GM Ointment ophthalmic ointment, Apply 1 Application to both eyes once., Disp: , Rfl: faMOTIdine 20 MG tablet, Take 1 tablet by mouth 2 times daily., Disp: , Rfl: Farxiga 10 MG tablet, Take 1 tablet by mouth daily., Disp: , Rfl: furOSEmide 20 MG tablet, Take 1 tablet by mouth daily., Disp: , Rfl: furOSEmide 40 MG tablet, Take 1 tablet by mouth daily., Disp: , Rfl: Gabapentin 100 MG capsule, Take 1 capsule by mouth 3 times daily., Disp: , Rfl: HumuLIN R U-500 KwikPen 500 UNIT/ML Solution Pen-injector injection, INJECT 200 UNITS SUBCUTANEOUSLY THREE TIMES DAILY WITH MEALS AND INJECT 80 UNITS TWICE DAILY WITH SNACKS., Disp: , Rfl: Isosorbide mononitrate 30 MG Tab SR 24 HR tablet XL, Take 2 tablets by mouth daily every morning., Disp: , Rfl: levothyroxine 175 MCG tablet, Take 1 tablet by mouth daily., Disp: , Rfl: Melatonin 10 MG capsule, Take 0.5-1 capsules by mouth., Disp: , Rfl: Metoprolol succinate 25 MG tablet XL, Take 1 tablet by mouth daily every morning., Disp: , Rfl: Montelukast 10 MG tablet, Take 1 tablet by mouth at bedtime., Disp: , Rfl: nitroGLYCERIN 0.4 MG tablet SL, Place 1 tablet under tongue every 5 minutes as needed., Disp: , Rfl: nystatin [id number] UNIT/GM Cream, Apply 1 Application topically 2 times daily., Disp: , Rfl: omeprazole [address] capsule, Take 1 capsule by mouth daily., Disp: , Rfl: potassium chloride 10 MEQ Tab CR tablet ER, Take 2 tablets by mouth 2 times daily., Disp: , Rfl: predniSONE 20 MG tablet, Take 1 tablet by mouth daily., Disp: , Rfl: Rosuvastatin 20 MG tablet, Take 1 tablet by mouth daily., Disp: , Rfl: Spironolactone 25 MG tablet, Take 1 tablet by mouth 2 times daily., Disp: , Rfl: Tocilizumab (Actemra) 162 MG/0.9ML Solution Prefilled Syringe injection, Inject 0.9 mL under the skin Once a week., Disp: , Rfl: Trulicity 3 MG/0.5ML Solution Pen-injector, INJECT 3 MG SUBCUTANEOUSLY ONCE A WEEK: TO BE USED WHEN4.5 IS NOT AVAIABLE, Disp: , Rfl: Trulicity 4.5 MG/0.5ML Solution Pen-injector, INJECT 4.5 MG SUBCUTANEOUSLY EVERY MONDAY, Disp: , Rfl: Allergies: Derrell is allergic to iodine, sulfa antibiotics, amlodipine, fluconazole, povidone iodine, tetanus toxoids, and sulfamethoxazole-trimethoprim. Review of Systems: Pertinent positives and negatives listed in HPI; all other systems reviewed and negative. Exam: Cooperation: excellent Base Eye Exam Visual Acuity (Snellen - Linear) Right Left Dist sc CF at face 20/25 Dist ph sc NI Near sc 20/800 J2 Pupils Pupils Shape APD Right PERRL Round + Left PERRL Round None Visual Peters Left Right Full Restrictions Partial inner inferior temporal, inferior nasal deficiencies Neuro/Psych Oriented x3: Yes Mood/Affect: Normal Additional Tests Color Right Left Ishihara 0/10 9/10 Slit Lamp and Fundus Exam External Exam Right Left External Normal Normal Slit Lamp Exam Right Left Lids/Lashes Normal Normal Conjunctiva/Sclera White and quiet White and quiet Cornea Clear Clear Anterior Chamber Deep and quiet Deep and quiet Iris Round and reactive Round and reactive Lens Psuedophakic Psuedophakic Fundus Exam Right Left Disc 2+ pallor Normal, no heme C/D Ratio 0.2 0.15 In-Office Testing: HVF OD Reliability Fovea MD PSD Interp 01/10/2025 Low; 01/14 FL' 28% FN 8 -6.87 8.36 Temporal paracentral defect on Pattern w/ nasal depression on Total and Pattern. Improved. 03/28/2024 Low; 3/14 FL Off N/a N/a Stim-V: central and temporal cecocentral dense defect. Mild nasal scotoma. EBS. HVF OS Reliability Fovea MD PSD Interp 01/10/2025 Low; 03/13 FL 38 2.97 1.45 Normal field; stable. 03/28/2024 Low; 02/12 36 -1.59 2.13 Inferior small defects on Total and Pattern. RNFL OD OS Interp 01/10/2025 54 77 OD: S, I thinning; borderline N thinning; progressed. OS: no localized NFL loss; small C/D 03/28/2024 77 88 OD: S thinning OS: no localized NFL loss; small C/D GCC OD OS Interp 01/10/2025 48 74 OD: diffuse GCC loss; no localized OS: borderline S, ST thinning; stable 03/28/2024 57 80 OD: diffuse GCC loss OS: no localized GCC loss Relevant Labs and Imaging Reports: Repeat Labs 03/06/2024 Negative: TB Quant, RF, Hep B, ANDRIY/lysozyme, MRI Brain w/wo Contrast 03/20/2024 R TABx 02/2024 Summary of HPI, Assessment, and Plan: Derrell German is a 69 y.o. female who presented 03/28/2024 as a referral from Dr. 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 She has a relevant history of IDDM, HTN, CAD s/p caths x3. She presented to Dr. Euceda 02/05/2024 with 3 days of painless, central visionloss OD. She was noted to have VA HM OD / 20/30 OS w/ rAPD OD, Grade 4+ hemorrhagic disc edema OD /Grade 1-2+ hemorrhagic edema OS. She complained of temporal headaches. Lab work showed mildly elevated CRP+ESR. R-sided TABx was negative. She was treated with IVMP x3d followed by Prednisone 80mg daily. She established w/ Veterinary Virus Serum Inspector (Dr. Dangelo), who concurred w/ diagnosis of biopsy-negativeGCA and recommended Actemra. At establishing visit, she confirmed the history as documented and further added that she tapered down to prednisone 40 mg per day. She was having a very hard time tolerating prednisone. The approvalfor Actemra was delayed due to pending lab work and a bout of cellulitis of her abdomen. She deniedheadaches, temporal tenderness, scalp pain, jaw claudication, excessive fatigue, myalgias, fevers, a nd chills. She had not had any weight loss, and instead had weight gain as a result of prednisone. On exam, she had resolving disc edema of the right eye with persistent central-predominant severe vision loss and total dyschromatopsia. The fellow eye showed no recurrence of edema and relatively normal afferent function with preserved micro architecture on OCT RNFL+GCC. 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 Today, she returns for much delayed follow-up after recent bilateral multiple sub-segmental PEs. She's now on Eliquis. She feels vision is stable. She has no symptoms of GCA. She continues to take Actemra and 5 mg of prednisone with plan to see her Veterinary Virus Serum Inspector in March. Her exam is stable w/ chronic R optic neuropathy. 1. Ischemic optic neuropathy of both eyes 2. Category 4 blindness of right eye, unspecified left eye visual impairment category Discussed findings and prognosis; reassured by stability again. Defer decision to come off Pred to Rheumatology and patient at this time Strict return precautions reviewed. Return in about 6 months (around 07/13/2025) for symptom check, VA/MB. Phillip Whelan MD Neuro-Ophthalmology and Adult Strabismus Department of Ophthalmology [facility] P: [phone] * Elizabeth Kami - 01/10/2025 2:40 PM EDT REASON FOR VISIT Derrell German presents to clinic today for a Follow-Up Patient visit. Chief Complaint Follow-up HISTORY OF PRESENT ILLNESS HPI Derrell German is a 69 y.o. female with ION who is present today for a 6 months follow up. Pt states that distance and reading vision is unchanged. Pt denies any eye pain or eye discomfort OU. Pt denies new flashes of light or floaters OU. Pt denies having double vision. Pt denies changes or decreases in color vision or brightness of vision. Pt notes she has bilateral blood clots in her lungs which was diagnosed in November 2024. Pt notes getting headaches from fatigue from eyes, denies migraines. Pt denies whooshing, ringing or pulsatile tinnitus in either ear. Current Ocular Medications: Artificial Tears Prednisone 5 mg every day Last edited by Elizabeth Mcclure on 01/10/2025 2:25 PM. Allergies, medications & history reviewed & updated by Elizabeth Mcclure REVIEW OF SYSTEMS Review of Systems Constitutional: Negative for fever. Respiratory: Positive for cough and shortness of breath. Neurological: Negative for headaches. >30 minutes was spent with patient updating allergies, medications, and medical history. * Meño Pearce - 01/10/2025 2:40 PM EDT Derrell German is a 69 y.o. female who presents to clinic for a 6 month ION follow-up Brief HPI: Pt denies changes in vision since last visit. She also denies eye pain or eye discomfort OU. She denies changes in color vision or brightness OU. She reports in November 2024 she was dx with bilateral pulmonary embolisms. She notes long hx of CPAP use. She continues to take Actemra and 5 mg of prednisone. She plans on following up with Veterinary Virus Serum Inspector Dr. Walton in March. She denies jaw claudication. Plan and Assessment: Today she continues to manage well with Actemra and prednisone. She wishes to meet with Dr. Waltonas she wants to stay on the prednisone to mitigate recurrent vision loss. Follow-up in 6 months Follow-up in 6 months Continue Prednisone and Actemra Follow-up with Veterinary Virus Serum Inspector. Strict Return Precautions Reviewed I, Meño Pearce, acted as a scribe for Dr. Phillip Whelan M.D. for this note of 01/10/2025 4:31 PM. I have reviewed edited the exam and documentation by Meño chappell. Please see my full note for final visit documentation. Phillip Whelan MD Neuro-Ophthalmology and Adult Strabismus Department of Ophthalmology [facility] NoteHNO ID: [id number] Author: LOVE FREEMAN LPN Service: ? Author Type: LICENSED NURSE Type: Progress Notes Filed: 01/10/2025 08:20 Note Text: Scan on 01/09/2025 2:59 PM by Provider, DAYSI HernandezC: Consultation - Pulmonary [facility]05-09-2025 History of Present illness Narrative* Love Freeman LPN - 01/10/2025 8:19 AM EDT Scan on 01/09/2025 2:59 PM by ProviderMary PA-C: Consultation - Pulmonary [facility] Tele[facility] encounter Note * Telephone Encounter - Love Freeman LPN - 01/08/2025 10:05 AM EDT Referral and info has been faxed to Dr Portillo's office. Pt notified via My Chart. Love Freeman LPN [facility]05-07-2025 Miscellaneous Notes* Telephone Encounter - Love Freeman LPN - 01/08/2025 10:05 AM EDT Referral and info has been faxed to Dr Portillo's office. Pt notified via My Chart. Love Freeman LPN * Telephone Encounter - Willard Henriquez MD - 01/07/2025 2:04 PM EDT Yes ok to fax consult and info to Dr. Haynes office. * Telephone Encounter - Love Freeman LPN - 01/07/2025 1:07 PM EDT Pt notified of results and instructions. Pt verbalizes understanding. Copy of Dr Henriquez's message has been sent to pt via My Chart per pt's request. Pt does not want to go to Gastro in [place]. Pt states she can't travel and prefers to stay in [place]. Pt advises that her sees Dr Portillo. Shewould like to stay local. Ok to send referral to Dr Portillo's office? Love Freeman LPN * Telephone Encounter - Willard Henriquez MD - 01/06/2025 3:50 PM EDT Let patient know her B12 is on the low side of normal at 271 and with being below 400 can increase risk oc memory issues. Advise her to start taking B12 500 mcg a day. Her Iron labs show that she is starting to develop iron def anemia. I want her to start taking Slo Fe one every other day and with it take Vit C 500 mg every other day. I'm also placing a consult to Gastro with [facility] in [place]. Order placed. documented in [facility] Telephone encounter Note * Telephone Encounter - Willard Henriquez MD - 01/07/2025 2:04 PM EDT Yes ok to fax consult and info to Dr. Haynes office. [facility]05-06-[facility] Telephone encounter Note* Telephone Encounter - Love Freeman LPN - 01/07/2025 1:07 PM EDT Pt notified of results and instructions. Pt verbalizes understanding. Copy of Dr Henriquez's message has been sent to pt via My Chart per pt's request. Pt does not want to go to Gastro in [place]. Pt states she can't travel and prefers to stay in [place]. Pt advises that her sees Dr Portillo. Shewould like to stay local. Ok to send referral to Dr Portillo's office? Love Freeman LPN [facility]05-05-[facility] Telephone encounter Note* Telephone Encounter - Willard Henriquez MD - 01/06/2025 3:50 PM EDT Let patient know her B12 is on the low side of normal at 271 and with being below 400 can increase risk oc memory issues. Advise her to start taking B12 500 mcg a day. Her Iron labs show that she is starting to develop iron def anemia. I want her to start taking Slo Fe one every other day and with it take Vit C 500 mg every other day. I'm also placing a consult to Gastro with [facility] in [place]. Order placed. [facility]05-02-[facility] History of Present illness Narrative* Willard Henriquez MD - 01/03/2025 11:20 AM EDT Images from the original note were not included. Chief Complaint Patient presents with: Hospital F/U [facility] Derrell German is a 69 year old female who presents here today for Hospital Discharge Follow up.. Patient was also seen in [place] ER on 11/29/2024 for chest pain and shortness of breath. Was found to have pulmonary emboli: patient on Eliquis twice a day. Had sen Pulm in f/u. Hospital visit 12/17/2024: Patient recently seen cardio and is set up to get a Echo and halter monitor. If all negative they will get a stress and then possible Cath Recent labs below. Patient continues to ave the chest pains and shortness of breath. Her prednisone is at 5 mg a day for the giant cell arteritis. Past medical history, appointments, medications, allergies reviewed. Previous Medical History PAST MEDICAL HISTORY Diagnosis Date Advance directive discussed with patient 04/06/2022 Discussed 04/2022 Allergic rhinitis 02/10/2011 ASHD (arteriosclerotic heart disease) 03/08/[address] Hudson Asthma ([facility]) Dr. 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 History of left heart catheterization HEART CATH X2 STENTS X 3 NASH GARCIA Hyperlipidemia, mixed 06/30/2015 DR HUDSON, Hypertension, essential 06/30/2015 NASH GARCIA CARD- controlled with medication Joint pain PAIN MANAGMENT WILLARD CRUZ Living will on file 04/06/2022 DPA: Ever () Lumbar radiculopathy 04/28/2020 R L4 radiculopathy 04/2020 Medicare annual wellness visit, initial 04/06/2022 Medicare part B: 11/03/2019 Last done: 04/06/2022 Medicare annual wellness visit, subsequent 04/24/2023 Mild intermittent asthma without complication ([facility]) 02/10/2011 DENIES PROBLEMS, DENIES INHALERS Morbid obesity (HCC) 01/10/2012 NATALIE (obstructive sleep apnea) 09/10/2019 On BiPAP and sees VENTURA Schaffer Osteoarthritis of both knees 02/02/2017 Other intervertebral disc displacement, lumbosacral region 02/23/2023 PONV (postoperative nausea and vomiting) Postherpetic neuralgia 03/14/2014 Right mid-trunk area. 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 Psoriasis 10/23/2017 Rash bilateral forearms Rosacea 04/19/2013 Shingles 2014 Spinal stenosis of lumbar region without neurogenic claudication 03/19/2021 DR SANDOVAL FOLLOWING Spondylolisthesis of lumbar region 02/23/2023 Stage 3a chronic kidney disease (HCC) 03/19/2021 GERALD CALHOUN AND WILLARD HARR[facility] Temporal arteritis ([facility]) 12/08/2024 Seeing Rheum: Dr. Mcdowell on prednisone Uncontrolled type 2 diabetes mellitus with hyperglycemia ([facility]) 12/24/2019 Seeing GERALD Marte Uses roller walker Vitamin D deficiency 03/19/2021 Wears glasses reading Previous Surgical History PAST SURGICAL HISTORY Procedure Laterality Date ANESTH, HYSTERECTOMY 2000 ANESTHESIA NOSE & ACCESSORY SINUSES NOS 1995 CHOLECYSTECTOMY 1989 COLONOSCOPY FLX DX W/COLLJ SPEC WHEN PFRMD 04/18/2011 X3 HEART CATHETERIZATION 2002 HEART CATH X2 2001 & 2019 STENTS X3 2019 PAST SURGICAL HISTORY OF L. knee PAST SURGICAL HISTORY OF kidney stones PAST SURGICAL HISTORY OF Right 2007 Knee PAST SURGICAL HISTORY OF NERVE STIMULATOR AND REMOVAL MELISSA ORTH REMV CATARACT EXTRACAP,INSERT LENS Bilateral Rt 08/2019, Lt 11/2019 STRESS TEST ADENOSINE 05/11/2013 THYROIDECTOMY TOTAL/COMPLETE 2000 TONSILLECTOMY HX 1963 Family History FAMILY HISTORY Problem Relation Age of Onset Diabetes Mother Thyroid Mother Diabetes Father Diabetes Paternal Aunt Patient Allergies ALLERGIES Allergen Reactions Amlodipine Swelling Diflucan [Fluconazo* Hives Diphth,Pertus(Acell* Hives Actos [Pioglitazone* Other: See Comments Edema BLE AND OLGA HANDS Bactrim [Sulfametho* Hives HIVES Betadine [Povidone-* Anaphylaxis SEVERE ALLERGY TO IODINE AND BETADINE Fish Anaphylaxis ALL FISH Iodine Anaphylaxis IV contrast Lipitor [Atorvastat* Rash, Itching Metformin Diarrhea, GI Upset [place] Anaphylaxis Penicillins Unknown NOT SURE A CHILD Sulfa (Sulfonamide * Swelling SWELLING AND HIVES Current Medications Current Outpatient Medications on File Prior to Visit Medication Sig predniSONE (DELTASONE) 5 mg tablet Take 1 tablet by mouth once daily. Per Rheum, Dr. Mcdowell apixaban (ELIQUIS) 5 mg tab(s) Take 1 tablet by mouth two times a day. montelukast (SINGULAIR) 10 mg tablet Take 1 tablet by mouth daily at bedtime. metoprolol succinate ER (TOPROL XL) 25 mg 24 hr tablet Take 1 tablet by mouth every morning. potassium chloride (K-TAB) 10 mEq tablet Take 2 tablets by mouth two times a day. Cholecalciferol, Vitamin D3, 125 mcg (5,000 unit) cap Take 1 capsule by mouth every morning. Last dose 02/07/23 insulin regular human, CONCENTRATED 500 UNIT/ML, (HUMULIN R) 500 unit/mL soln 150 units before breakfast 180 units before lunch 150 units before dinner 80-100 units at bedtime Depends on BS tests gabapentin (NEURONTIN) 100 mg capsule 300 mg by mouth three times/day rosuvastatin (CRESTOR) 20 mg tablet Take 1 tablet by mouth once daily. tocilizumab (ACTEMRA) 162 mg/0.9 mL subcutaneous injection Inject 162 mg subcutaneously one time a week. neomycin sulfate (NEOMYCIN 1%) Irrigate 500 mL as instructed one time only. clopidogrel (PLAVIX) 75 mg tablet Take 1 tablet by mouth once daily. famotidine (PEPCID) 20 mg tablet Take 1 tablet by mouth two times a day. clobetasol (TEMOVATE) 0.05 % ointment Apply to affected area two times a day. spironolactone (ALDACTONE) 25 mg tablet Take 1 tablet by mouth twice daily. polyethylene glycol 3350 17 gram packet Take 1 Packet by mouth once daily. Dissolve dose in 4 - 8 ounces of liquid and take as directed. acetaminophen (TYLENOL) 500 mg tablet Take 2 tablets by mouth every 6 hours as needed for pain. bisacodyl EC (DULCOLAX) 5 mg EC tablet Take 2 tablets by mouth once daily as needed for constipation. polyethylene glycol 3350 17 gram packet Take 1 Packet by mouth once daily as needed. Dissolve dose in 4 - 8 ounces of liquid and take as directed. calcium carbonate (ANTACID CALCIUM ORAL) Take by mouth as needed. Last dose 02/09 melatonin 10 mg cap Take 5-10 mg by mouth daily at bedtime. BIPAP daily at bedtime. dapagliflozin (FARXIGA) 10 mg tablet Take 10 mg by mouth daily with breakfast. Take 1 tablet daily TRULICITY 3 mg/0.5 mL pen injector Inject 4.5 mg subcutaneously one time a week. Monday furosemide (LASIX) 40 mg tablet Take 1 tablet by mouth twice daily. Per [facility] EPINEPHrine (EPIPEN) 0.3 mg/0.3 mL auto-injector Use auto-injector x 1 for allergic reaction. isosorbide mononitrate ER (IMDUR) 30 mg 24 hr tablet Take 60 mg by mouth every morning. nitroglycerin sublingual (NITROQUICK) 0.4 mg SL tablet Dissolve 1 tablet under the tongue every 5 minutes as needed for Chest Pain. No current facility-administered medications on file prior to visit. Social History Social History Tobacco Use Smoking status: Never Passive exposure: Never Smokeless tobacco: Never Vaping Use Vaping status: Never Used Substance Use Topics Alcohol use: Never Drug use: Never Review of Symptoms REVIEW OF SYSTEMS See HPI EXAM: BP 118/70 Pulse 91 Resp 20 Wt (!) 139.3 kg (307 lb) SpO2 97% BMI 56.15 kg/m General Appearance: Well appearing, alert, in no acute distress, well-hydrated, well nourished. andMorbidly obese. Looks much better then the last time I saw here. Lungs: Lungs clear to auscultation. No wheezing, rhonchi, rales. Diminished breath sounds throughout. . Heart: RRR without murmur, gallop, or rubs. No ectopy. Abdomen: Normal abdominal exam, Abdomen soft, non-tender. Bowel sounds normal. No masses, organomegaly. Extremities: No deformities, skin discoloration,Good capillary refill. .Has chronic edema Health Maintenance List RSV Vaccine(1 - Risk 60-74 years 1-dose series) Never done Shingrix Vaccine(1 of 2) due on 03/13/2015 Mammogram Screening due on 07/13/2022 Diabetic Foot Exam due on 02/22/2023 Covid-19 Vaccine(2023- season) due on 05/05/2024 Advance Directive Discussion due on 09/04/2024 Dilated Retinal Exam due on 02/01/2025 HbA1C due on 05/14/2025 Urine Albumin:Creatinine Ratio due on 05/31/2025 Depression Screening due on 05/31/2025 Anxiety Screening due on 05/31/2025 DTaP,Tdap,Td Vaccine(5 - Td or Tdap) due on 06/30/2025 LDL Cholesterol due on 11/21/2025 Serum Creatinine due on 11/21/2025 Hemoglobin/Hematocrit due on 11/21/2025 Annual PCP Team Chronic Disease Visit due on 12/05/2025 BP Controlled (<130/80) due on 12/05/2025 Colorectal Cancer Screening due on 05/24/2027 Bone Density Screening Completed Influenza Vaccine Completed Hepatitis C Screening Completed Pneumococcal Vaccine: 50+ Completed Cervical Cancer Screening Discontinued Data reviewed 01/01/2025 ER report from 12/17/2024 and recent labs per cardio. A/P ASSESSMENT/PLAN: 1. Multiple subsegmental pulmonary emboli without acute cor pulmonale (HCC) - ICD9: 415.19, ICD10: I26.94 (primary diagnosis) - is on Eliqus and seeing Pulm 2. Anemia, unspecified type - ICD9: 285.9, ICD10: D64.9 Check - VITAMIN B12 - FOLATE, SERUM - FERRITIN - IRON AND TIBC 3. SOB (shortness of breath) - ICD9: 786.05, ICD10: R06.02 - patient seeing Pulm and Cardio and undergoing w/u. Has O2 to wear at home. 4. Atypical chest pain - ICD9: 786.59, ICD10: R07.89 - seeing cardio and set up for halter and Echo. May get a stress test and possible cath 5. Palpitations - ICD9: 785.1, ICD10: R00.2 - as per #4 F/u routine in a month I spent a total of 40 minutes on the date of the service which included preparing to see the patient, clre-sg-iylj patient care, completing clinical documentation, performing a medically appropriate examination, counseling and educating the patient/family/caregiver and ordering medications, tests, or procedures. Willard Henriquez MD documented [facility] NoteHNO ID: [id number] Author: WILLARD HENRIQUEZ MD Service: ? Author Type: Physician Type: Progress Notes Filed: 01/03/2025 12:42 Note Text: Chief Complaint Patient presents with: Hospital F/U [facility] Derrell German is a 69 year old female who presents here today for Hospital Discharge Follow up.. Patient was also seen in [place] ER on 11/29/2024 for chest pain and shortness of breath. Was found to have pulmonary emboli: patient on Eliquis twice a day. Had sen Pulm in f/u. Hospital visit 12/17/2024: Patient recently seen cardio and is set up to get a Echo and halter monitor. If all negative they will get a stress and then possible Cath Recent labs below. Patient continues to ave the chest pains and shortness of breath. Her prednisone is at 5 mg a day for the giant cell arteritis. Past medical history, appointments, medications, allergies reviewed. Previous Medical History PAST MEDICAL HISTORY Diagnosis Date Advance directive discussed with patient 04/06/2022 Discussed 04/2022 Allergic rhinitis 02/10/2011 ASHD (arteriosclerotic heart disease) 03/08/[address] Hudson Asthma ([facility]) Dr. 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 History of left heart catheterization HEART CATH X2 STENTS X 3 NASH GARCIA Hyperlipidemia, mixed 06/30/2015 DR HUDSON, Hypertension, essential 06/30/2015 NASH GARCIA CARD- controlled with medication Joint pain PAIN MANAGMENT WILLARD CRUZ [place] Living will on file 04/06/2022 DPA: [place] () Lumbar radiculopathy 04/28/2020 R L4 radiculopathy 04/2020 Medicare annual wellness visit, initial 04/06/2022 Medicare part B: 11/03/2019 Last done: 04/06/2022 Medicare annual wellness visit, subsequent 04/24/2023 Mild intermittent asthma without complication ([facility]) 02/10/2011 DENIES PROBLEMS, DENIES INHALERS Morbid obesity ([facility]) 01/10/2012 NATALIE (obstructive sleep apnea) 09/10/2019 On BiPAP and sees VENTURA Schaffer Osteoarthritis of both knees 02/02/2017 Other intervertebral disc displacement, lumbosacral region 02/23/2023 PONV (postoperative nausea and vomiting) Postherpetic neuralgia 03/14/2014 Right mid-trunk area. 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 Psoriasis 10/23/2017 Rash bilateral forearms Rosacea 04/19/2013 Shingles 2014 Spinal stenosis of lumbar region without neurogenic claudication 03/19/2021 DR SANDOVAL FOLLOWING Spondylolisthesis of lumbar region 02/23/2023 Stage 3a chronic kidney disease ([facility]) 03/19/2021 GERALD CALHOUN AND WILLARD HARRINGTON Temporal arteritis ([facility]) 12/08/2024 Seeing Rheum: Dr. Mcdowell on prednisone Uncontrolled type 2 diabetes mellitus with hyperglycemia ([facility]) 12/24/2019 Seeing GERALD Marte Uses roller walker Vitamin D deficiency 03/19/2021 Wears glasses reading Previous Surgical History PAST SURGICAL HISTORY Procedure Laterality Date ANESTH, HYSTERECTOMY 2000 ANESTHESIA NOSE AND ACCESSORY SINUSES NOS 1995 CHOLECYSTECTOMY 1989 COLONOSCOPY FLX DX W/COLLJ SPEC WHEN PFRMD 04/18/2011 X3 HEART CATHETERIZATION 2002 HEART CATH X2 2001 AND 2019 STENTS X3 2019 PAST SURGICAL HISTORY OF L. knee PAST SURGICAL HISTORY OF kidney stones PAST SURGICAL HISTORY OF Right 2007 Knee PAST SURGICAL HISTORY OF NERVE STIMULATOR AND REMOVAL MELISSA ORTH REMV CATARACT EXTRACAP,INSERT LENS Bilateral Rt 08/2019, Lt 11/2019 STRESS TEST ADENOSINE 05/11/2013 THYROIDECTOMY TOTAL/COMPLETE 2000 TONSILLECTOMY HX 1963 Family History FAMILY HISTORY Problem Relation Age of Onset Diabetes Mother Thyroid Mother Diabetes Father Diabetes Paternal Aunt Patient Allergies ALLERGIES Allergen Reactions Amlodipine Swelling Diflucan [Fluconazo* Hives Diphth,Pertus(Acell* Hives Actos [Pioglitazone* Other: See Comments Edema BLE AND OLGA HANDS Bactrim [Sulfametho* Hives HIVES Betadine [Povidone-* Anaphylaxis SEVERE ALLERGY TO IODINE AND BETADINE Fish Anaphylaxis ALL FISH Iodine Anaphylaxis IV contrast Lipitor [Atorvastat* Rash, Itching Metformin Diarrhea, GI Upset [place] Anaphylaxis Penicillins Unknown NOT SURE A CHILD Sulfa (Sulfonamide * Swelling SWELLING AND HIVES Current Medications Current Outpatient Medications on File Prior to Visit Medication Sig predniSONE (DELTASONE) 5 mg tablet Take 1 tablet by mouth once daily. Per Rheum, Dr. Mcdowell apixaban (ELIQUIS) 5 mg tab(s) Take 1 tablet by mouth two times a day. montelukast (SINGULAIR) 10 mg tablet Take 1 tablet by mouth daily at bedtime. metoprolol (more content not included)...[facility]05-01-2025 NoteHNO ID: [id number] Author: LOVE FREEMAN LPN Service: ? Author Type: LICENSED NURSE Type: Progress Notes Filed: 01/02/2025 06:55 Note Text: Scan on 01/01/2025 5:14 PM by Mary Dow PA-C: [facility] History of Present illness Narrative* Love Freeman LPN - 01/02/2025 6:55 AM EDT Scan on 01/01/2025 5:14 PM by Mary Dow PA-C: Chemistry [facility] NoteHNO ID: [id number] Author: LOVE FREEMAN LPN Service: ? Author Type: LICENSED NURSE Type: Progress Notes Filed: 01/01/2025 14:54 Note Text: Scan on 01/01/2025 12:43 PM by Mary Dow PA-C: Consultation - Cardiology Scan on 01/01/2025 2:22 PM by Mary Dow PA-C: [facility] History of Present illness Narrative* Love Freeman LPN - 01/01/2025 2:11 PM EDT Scan on 01/01/2025 12:43 PM by Mary Dow PA-C: Consultation - Cardiology Scan on 01/01/2025 2:22 PM by Mary Dow PA-C: Hematology documented in [facility]The [facility] Telephone encounter Note * Telephone Encounter - Kay Newman MA - 01/01/2025 10:40 AM EDT Patient notified via my chart. Kay Newman MA [facility]04-30-2025 Miscellaneous Notes* Telephone Encounter - Kay Newman MA - 01/01/2025 10:40 AM EDT Patient notified via my chart. Kay Newman MA * Telephone Encounter - Willard Henriquez MD - 12/31/2024 4:55 PM EDT Please remind patient that she sees Dr. Marques for her thyroid and needs to get her thyroid med refills through her office. Med list updated with current dosing of her thyroid medication. * Telephone Encounter - Loev Freeman LPN - 12/31/2024 2:19 PM EDT Prescription Refill Information The patient has been identified by name and date of : Yes Caregiver verified no other encounters exist for this prescription request: Yes Caregiver confirmed with patient/requestor that no other refills are due, in the near future, with this provider at this time: Yes The last office visit in the department: 12/05/24 Does the patient have a future office visit with this provider/department: Yes Requested Prescriptions Pending Prescriptions Disp Refills levothyroxine (SYNTHROID) 175 mcg tablet 20 tablet 5 Sig: Take 1 tablet by mouth once daily. ---- and none on Mon and Mon. Take on empty stomach.For Thyroid. Per endo: Dr. King Love Freeman LPN December 31, 2024 2:19 PM documented in [facility]The [facility]04[facility] Telephone encounter Note * Telephone Encounter - Willard Henriquez MD - 12/31/2024 4:55 PM EDT Please remind patient that she sees Dr. Marques for her thyroid and needs to get her thyroid med refills through her office. Med list updated with current dosing of her thyroid medication. [facility]04-29[facility] Telephone encounter Note* Telephone Encounter - Love Freeman LPN - 12/31/2024 2:19 PM EDT Prescription Refill Information The patient has been identified by name and date of : Yes Caregiver verified no other encounters exist for this prescription request: Yes Caregiver confirmed with patient/requestor that no other refills are due, in the near future, with this provider at this time: Yes The last office visit in the department: 12/05/24 Does the patient have a future office visit with this provider/department: Yes Requested Prescriptions Pending Prescriptions Disp Refills levothyroxine (SYNTHROID) 175 mcg tablet 20 tablet 5 Sig: Take 1 tablet by mouth once daily. ---- and none on Mon and Mon. Take on empty stomach.For Thyroid. Per endo: Dr. King Love Freeman LPN December 31, 2024 2:19 PM [facility]04-15-2025 Radiology Diagnostic study [facility]04-15-2025 Discharge summary Author Son Craft [facility] Note Date/Time December 17, 2024 9:1 2pm [facility] Medical Records Department [address] [place] [address] Emergency Department Summary 12/17/24 MR#: [id number] Acct: [id number] Name: DERRELL GERMAN Rep #:[id number] : 1955 69 From: Son Craft MD PCP: Dr. Willard Henriquez MD Status:REG ER Location: ED HPI History of Present Illness Chief Complaint: Palpitations Narrative Narrative: 69-year-old female past medical history of giant cell arteritis with loss of vision in her eye, states she was put on Yandel steroids which caused her to gain 100 pounds. She also states that she was recently diagnosed a few weeks ago with bilateral pulmonary emboli. She was started on Eliquis and has not missed a dose. She states that even before her diagnosis and over the last few days she has had chest discomfort and shortness of breath with dyspnea on exertion. She denies any fevers or chills but no productive cough. She states she coughs when she exerts herself. She is also on a diuretic and takes potassium. She states that she has not felt well all day, and has generalized weakness and malaise. She and her are here mainly because on their home cardiac applications, their workers concern because notes stated that she could have possible atrial fibrillation. [facility] Medical History DVT (deep venous thrombosis) Giant cell arteritis Wears glasses Post-menopausal Psoriasis Walker as ambulation aid Fatty liver History of migraine Seasonal allergies PONV (postoperative nausea and vomiting) Back pain Dietary restriction History of diverticulitis History of GI bleed Gastric reflux Non-smoker BiPAP (biphasic positive airway pressure) dependence Shortness of breath on exertion History of edema History of CHF (congestive heart failure) History of atrial fibrillation History of echocardiogram History of stress test Cardiology follow-up encounter Edema Chest pain, unspecified Diabetes Vitamin D deficiency Osteoporosis Acute on chronic diastolic (congestive) heart failure History of left heart catheterization (LHC) (~03/03/20) Hypothyroidism (acquired) Mixed hyperlipidemia Benign essential hypertension Cataract associated with type 2 diabetes mellitus 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 2 diabetes mellitus NATALIE (obstructive sleep apnea) Abnormal stress test Chest pain Chapman's palsy Thyroid disease Heart murmur Hives Recurrent UTI Bone fracture Back problem Arthritis Kidney stones HTN (hypertension) Anemia Asthma Obesity Home Medications ?Medication ?Instructions ?Recorded ?Last Taken ?Type epinephrine 0.3 mg/0.3 mL 0.3 mg IM ONCE 10/30/17 Unkn own History injection, auto-injector (EpiPen) rosuvastatin 20 mg tablet 20 mg PO QDAY Cholesterol 02/11/24 History gabapentin 100 mg capsule 100 - 300 mg PO TID 05/27/20 02/12/24 History pen needle, diabetic 32 gauge x #100 ea 10/01/20 Unkno wn Rx (BD Ultra-Fine Eva Pen Needle) cholecalciferol (vitamin D3) 125 125 mcg PO DAILY 11/0402/11/24 History mcg (5,000 unit) tablet hydrocortisone 2.5 % topical cream 1 applic topical BI D PRN Itching 10/15/21 Unknown History spironolactone 25 mg tablet 25 mg PO BID water pill 02/11/24 History metoprolol tartrate 25 mg tablet 25 mg PO DAILY 02/12/24 History clobetasol 0.05 % topical cream 1 applic topical DAILY PRN psorasis 04/06/23 02/11/24 History montelukast 10 mg tablet 10 mg PO QHS 04/06/23 History (Singulair) nitroglycerin 0.4 mg sublingual 0.4 mg sublingual Q5M PRN .CHEST 04/26/23 Unknown Rx tablet PAIN #25 tabs blood-glucose sensor (Dexcom G7 #3 ea 06/08/23 Unknown Rx Sensor device) blood-glucose sensor (Dexcom G7 #3 ea 06/08/23 Unknown Rx Sensor device) blood-glucose meter,continuous #1 ea 06/19/23 Unknown Rx (Dexcom G7 Mechanical Insulator) denosumab 60 mg/mL subcutaneous 60 mg subcut [id number] #1 mL 07/12/23 Unknown Rx syringe (Prolia) clopidogrel 75 mg tablet 75 mg PO DAILY #90 tabs 2 02/07/24 Rx furosemide 20 mg tablet 20 mg PO .COMPLEX #180 tabs 01/22/24 02/11/24 Rx furosemide 40 mg tablet 40 mg PO .COMPLEX #180 tabs 01/22/24 02/11/24 Rx isosorbide mononitrate 60 mg 60 mg PO DAILY #90 tabs 0 01/22/24 02/12/24 Rx tablet,extended release 24 hr omeprazole 20 mg capsule,delayed 20 mg PO QDAY 4 Unknown History release potassium chloride 10 mEq 20 meq PO BID 03/25/24 Unkno wn History tablet,extended release levothyroxine 175 mcg tablet 175 mcg PO .6xw 07/08/24 Unknown History melatonin 10 mg capsule 10 mg PO HS PRN sleep Unknown History tocilizumab 162 mg/0.9 mL mg subcut QWEEK 10/23/24 Unk nown History subcutaneous pen injector (Actemra ACTPen) dapagliflozin propanediol 10 mg 10 mg PO DAILY #90 tab s 11/11/24 Unknown Rx tablet (Farxiga) dulaglutide 4.5 mg/0.5 mL 4.5 mg (0.5 mL) subcut QWEEK #6 mL 11/11/24 Unknown Rx subcutaneous pen injector (Trulicity) insulin regular hum U-500 conc 500 See Rx Instructions subcut ONCE 11/11/24 Unknown Rx unit/mL(3 mL) subcut pen (Humulin #45 mL R U-500 (Conc) Insulin Kwikpen) famotidine 20 mg tablet 20 mg PO BID 11/27/24 Unknow n History prednisone 20 mg tablet 7.5 mg PO DAILY 11/27/24 Unk nown History apixaban 5 mg (74 tabs) tablets in See Rx Instructions .Route 11/29/24 Unknown Rx a dose pack (Wriggle DVT-PE Treat .COMPLEX #74 tabs 30D Start) nystatin 100,000 unit/gram topical 1 applic topical DA YSABEL PRN yeast 11/29/24 Unknown History cream infection nystatin 100,000 unit/gram topical 1 applic topical TI D PRN yeast 11/29/24 Unknown History powder dematitis cephalexin 500 mg capsule 500 mg PO Q12 #14 CAPSULES 0 12/17/24 Unknown Rx Allergy/AdvReac Type Severity Reaction Status Date / Time adhesive Allergy Other Verified 12/17/24 18:36 Fish Containing Products Allergy Hives Verified 12/17/24 18:36 fluconazole (From Diflucan) Allergy Hives Verified 12/17/24 18:36 iodine Allergy Unknown Verified 12/17/24 18:36 orange Allergy Hives Verified 12/17/24 18:36 Penicillins Allergy Unknown Verified 12/17/24 18:36 pioglitazone (From Actos) Allergy Hives Verified 12/17/24 18:36 povidone-iodine (From Allergy Unknown Verified 12/17/24 18:36 Betadine) soap (From Betadine) Allergy Unknown Verified 12/17/24 18:36 Sulfa (Sulfonamide Allergy Unknown Verified 12/17/24 18:36 Antibiotics) sulfamethoxazole (From Allergy Unknown Verified 12/17/24 18:36 Bactrim) tetanus and diphtheria Allergy Hives Verified 12/17/24 18:36 toxoids trimethoprim (From Bactrim) Allergy Unknown Verified 12/17/24 18:36 amlodipine AdvReac Severe Swelling Verified 12/17/24 18:36 Family History Mother Diabetes Heart disease Hypertension High cholesterol Kidney disease Cancer Father Diabetes Hypertension High cholesterol Cancer Sister Cancer Surgical History Presence of stent in coronary artery (~03/13/19) History of surgery History of back surgery Presence of coronary angioplasty implant and graft (~03/13/19) Cataract extraction status, left eye Cataract extraction status, right eye History of left heart catheterization (LHC) H/O colonoscopy H/O right heart catheterization H/O thyroidectomy H/O sinus surgery History of tonsillectomy History of total abdominal hysterectomy H/O arthroscopic knee surgery Hx of cholecystectomy Social History Smoking Status: Never smoker second hand exposure: No alcohol intake: never substance use type: does not use caffeine: Yes Type: carbonated beverages Number of servings: 1 and tea Number of servings: 1 ROS ROS ED ROS Narrative Review of systems positive for shortness of breath with dyspnea on exertion, generalized weakness and malaise. No fevers or chills. Positive nonproductive cough especially with dyspnea on exertion. Positive steroid weight gain. No dysuria or hematuria. No exacerbating or alleviating factors. EXAM Physical Exam Narrative Exam Narrative: Afebrile. Vital signs noted. Nontoxic-appearing. Cardiovascular examination reveals mild tachycardia with occasional extra beats. Lungs are clear to auscultation bilaterally. No tachypnea. No wheezing. Abdomen is soft and nontender. Neurological examination is nonfocal and nonlateralizing. Const Vital Signs: 12/17/24 18:33 12/17/24 18:47 12/17/24 18:52 Temperature 98.7 F Temperature Source Oral Pulse Rate 104 H Respiratory Rate 18 Respiratory Effort Labored Accessory Muscle Use Blood Pressure 134/65 H Blood Pressure Mean 88 Pulse Ox 99 Oxygen Delivery Method Room Air Room Air 12/17/24 19:41 12/17/24 20:00 Temperature Temperature Source Pulse Rate 90 88 Respiratory Rate 14 21 H Respiratory Effort Blood Pressure 141/40 H Blood Pressure Mean 73 Pulse Ox 97 Oxygen Delivery Method Room Air MDM MDM MDM Narrative Medical decision making narrative: Differential diagnosis includes but not limited to pneumonia versus pneumothorax. She already has a diagnosis of bilateral pulmonary emboli which could be causing her pain and shortness of breath. Also the differential would be atrial fibrillation as well. She has not missed a dose of her Eliquis. Hence, I already feel that she is anticoagulated and I do not feel CTA is indicated. I did review her prior records/ED visit. She was discharged to follow-up with her carton folder Dr. Florez as well as her primary care provider. An EKG was obtained and interpreted by myself independently as normal sinus rhythm with PACs at 100 bpm. I do not feel that this is atrial fibrillation. Labs were started per protocol. I did add a magnesium as well given that she states she has been hypokalemic in the past. Chest x-ray obtained and interpreted by myself independently shows no evidence of pneumothorax or pneumonia. I reviewed her laboratory work and she has normal white count of 7.6 with hemoglobin stable at 11.3, hematocrit 36.8, platelet count normal at 214. BMP significant for an anion gap of 17 which I think is nonspecific, glucose 133 with CO2 of 24, normal sodium of 138. Potassium is low at 2.9. She was given 40 mill equivalents here in the emergency department will continue home supplementation. Her magnesium is normal at 1.7. High-sensitivity troponin is 24 and when compared to prior labs it was 23 in the past. This has been an ongoing thing for greater than 6 hours so I doubt that she requires any repeat troponin. Urinalysis shows 10-25 WBCs but negative ketones. I will treat her for a urinary tract infection. I reviewed her prior medications and she had been prescribed cephalexin in the past although she has an allergy to penicillins that is unknown. She was given her first dose here and a prescription written for the next week. At this point in time, I feel she can be discharged to follow-up. She has already followed up with her carton folder and wears oxygen at night. She has ahome compressor. Hence, she has oxygen at home, I do not feel that she requiresobservation or admission for any oxygen requirement. Return instructions to theemergency department were reviewed. Disposition is discharged home in stable condition. History & Record Review Discussion w/independent historian: Patient and Family () Lab Data Attestation: I reviewed the patient's lab results. Labs: Laboratory Results - last 24 hr 12/17/24 12/17/24 18:55 20:09 WBC 7.6 RBC 4.34 Hgb 11.3 L Hct 36.8 L MCV 84.8 MCH 26.0 L MCHC 30.7 L RDW Std Deviation 51.3 H RDW Coeff of Barrie 16.5 H Plt Count 214 MPV 9.2 Immature Gran % (Auto) 0.700 Neut % (Auto) 73.1 H Lymph % (Auto) 18.1 L [place] % (Auto) 6.3 Eos % (Auto) 1.3 Baso % (Auto) 0.5 Absolute Neuts (auto) 5.6 Absolute Lymphs (auto) 1.38 Nucleated RBC % 0 PT 16.8 H INR 1.3 Sodium 138 Potassium 2.9 L Chloride 97 L Carbon Dioxide 24.2 Anion Gap 17 H BUN 8 Creatinine 1.13 Estim Creat Clear Calc 63.11 Est GFR (MDRD) Non-Af 52 L BUN/Creatinine Ratio 6.7 L Glucose 133 H Calcium 9.7 Magnesium 1.7 Troponin T High Sens 24 H Urine Color Yellow Urine Clarity Clear Urine pH 6.0 Ur Specific [place] 1.010 Urine Protein 15 H Urine Glucose (UA) 1000 H Urine Ketones Negative Urine Occult Blood Negative Urine Nitrite Negative Urine Bilirubin Negative Urine Urobilinogen Normal Ur Leukocyte Esterase 25 H Urine RBC 0 SEEN Urine WBC 10-25 SEEN Ur Squamous Epith Cells 0-5 SEEN Urine Bacteria 1+ Urine Mucus 0 SEEN Urine Yeast 1+ Radiography Chest X-Ray - ED: 1 View, Read by ED Physician and Read by Radiologist Diagnostic Testing: Clinical Impression(s) from Imaging Studies Chest X-Ray 12/17/24 18:36 IMPRESSION: No Acute Findings. Reading Location: [id number] Discharge Plan Triage Chief Complaint: Palpitations ED Provider: Son Craft Dx/Rx/DC Orders Clinical Impression: Chest pain, SOB (shortness of breath), History of pulmonary embolism, Hypokalemia, UTI (urinary tract infection) Instructions: ED Chest Pain, Uncertain Cause, ED Dyspnea, ED Hypokalemia, ED Cystitis Female Adult Prescriptions: New cephalexin 500 mg capsule 500 mg PO Q12 Qty: 14 0RF No Action rosuvastatin 20 mg tablet 20 mg PO QDAY epinephrine [EpiPen] 0.3 mg/0.3 mL auto-injector 0.3 mg IM ONCE spironolactone 25 mg tablet 25 mg PO BID gabapentin 100 mg capsule 100 - 300 mg PO TID cholecalciferol (vitamin D3) 125 mcg (5,000 unit) tablet 125 mcg PO DAILY (DME) pen needle, diabetic [BD Ultra-Fine Eva Pen Needle] 32 gauge x 5/32 needle See Rx Instructions .ROUTE .MEDSUPPLY Qty: 100 6RF Rx Instructions: tid hydrocortisone 2.5 % cream 1 applic topical BID PRN (Reason: Itching) clobetasol 0.05 % cream 1 applic topical DAILY PRN (Reason: psorasis) montelukast [Singulair] 10 mg tablet 10 mg PO QHS nitroglycerin 0.4 mg tablet, sublingual 0.4 mg SL Q5M PRN (Reason: .CHEST PAIN) Qty: 25 3RF (DME) Dexcom G7 Sensor Device See Rx Instructions .Route Qty: 3 6RF Rx Instructions: As directed (DME) Dexcom G7 Sensor Device See Rx Instructions .Route Qty: 3 0RF Rx Instructions: As directed potassium chloride 10 mEq tablet extended release 20 meq PO BID omeprazole 20 mg capsule,delayed release(DR/EC) 20 mg PO QDAY famotidine 20 mg tablet 20 mg PO BID dapagliflozin propanediol [Farxiga] 10 mg tablet 10 mg PO DAILY Qty: 90 1RF Trulicity 4.5 mg/0.5 mL pen injector 4.5 mg subcut QWEEK Qty: 6 1RF Patient Comments: takes it on Mondays Humulin R U-500 (Conc) Kwikpen 500 unit/mL (3 mL) insulin pen See Rx Instructions subcut ONCE Qty: 45 3RF Patient Comments: PT STATES SHE TAKES 300 TID WHILE ON STEROIDS, PT TAKES INSULIN WITH SNACKS. CHECKS BLOOD SUGAR AND TAKES ACCORDINGLY. Rx Instructions: 200 units tid with meals 80 units bid with snacks subcutaneously once; melatonin 10 mg capsule 10 mg PO HS PRN (Reason: sleep) Actemra ACTPen 162 mg/0.9 mL pen injector subcut QWEEK Patient Comments: [NO ORIGINAL SIG] levothyroxine 175 mcg tablet 175 mcg PO .6xw Patient Comments: does not take it on Sundays. metoprolol tartrate 25 mg tablet 25 mg PO DAILY prednisone 20 mg tablet 7.5 mg PO DAILY nystatin 100,000 unit/gram cream 1 applic TOPICAL DAILY PRN (Reason: yeast infection) nystatin 100,000 unit/gram powder 1 applic topical TID PRN (Reason: yeast dematitis) Rx Instructions: must be powder formulation Eliquis DVT-PE Treat 30D Start 5 mg (74 tabs) tablets,dose pack See Rx Instructions .Route .COMPLEX Qty: 74 0RF Rx Instructions: orally per package directions (DME) Dexcom G7 Mechanical Insulator Misc See Rx Instructions .Route Qty: 1 0RF Rx Instructions: As directed Prolia 60 mg/mL syringe 60 mg subcut [id number] Qty: 1 1RF isosorbide mononitrate 60 mg tablet extended release 24 hr 60 mg PO DAILY Qty: 90 3RF clopidogrel 75 mg tablet 75 mg PO DAILY Qty: 90 3RF furosemide 40 mg tablet 40 mg PO .COMPLEX Qty: 180 3RF Rx Instructions: 40 mg orally twice a day; takes with a 20 mg tablet to = 60 mg twice a day; furosemide 20 mg tablet 20 mg PO .COMPLEX Qty: 180 3RF Rx Instructions: 20 mg orally twice a day; take with a 40 mg tablet to = 60 mg twice a day; Primary Care Provider: Willard Henriquez Referrals: Willard Henriquez MD [Primary Care Provider] - 3-5 Days if not improving Activity Restrictions/Additional Instructions: Continue your potassium supplementation. Antibiotics as directed. Follow-up with your primary care provider in the next 3 to 5 days if not improving. Continue your Eliquis for your pulmonary emboli. Return with increased chest pain, increased shortness of breath, new or worsening symptoms. Print Language: Tuvaluan Disposition Disposition: Home, Self Care What to do if you have Problems For any increased pain, shortness of breath, bleeding, nausea or vomiting, chestpain, or any unexpected problems, contact your Primary Care Provider. Call [facility] ([phone]) or report to the closest Emergency Room. Call 911 if necessary. 12/17/242111 <Electronically signed by Son Craft MD> Cosigner Signature (if applicable): CC: Dr. Willard Henriquez MD ~ Signed [facility] Work Phone: 1(929) 490-362404-15-2025 Hospital Discharge instructions Additional Instructions Continue your potassium supplementation. Antibiotics as directed. Follow-up with your primary care provider in the next 3 to 5 days if not improving. Continue your Eliquis for your pulmonary emboli. Return with increased chest pain, increased shortness of breath, new or worsening symptoms.[facility] Work Phone: 1(230) 210-620604-03-2025 NoteHNO ID: [id number] Author: PADMINI ANGUIANO APRN.ENROLLMENT REPRESENTATIVE Service: ? Author Type: Nurse Practitioner Type: Progress Notes Filed: 12/05/2024 14:19 Note Text: Chief Complaint Patient presents with: ER F/U HPI Derrell German is a 69 year old female who presents here today for Above Complaints.. Patient presents for ER follow up for bilateral PE. Patient was initiated on Eliquis. Patient reports she continues to have SOB and fatigue. Patient reports she completed 6 min ambulatory pulse ox and nighttime oxygen sleep study for pulmonology this past week. Past medical history, appointments, medications, allergies reviewed. Previous Medical History PAST MEDICAL HISTORY Diagnosis Date Advance directive discussed with patient 04/06/2022 Discussed 04/2022 Allergic rhinitis 02/10/2011 ASHD (arteriosclerotic heart disease) 03/08/[address] [place] [facility] Dr[address] 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 History of left heart catheterization HEART CATH X2 STENTS X 3 NASH GARCIA Hyperlipidemia, mixed 06/30/2015 DR HUDSON, Hypertension, essential 06/30/2015 NASH GARCIA CARD- controlled with medication Joint pain PAIN MANAGMENT WILLARD CRUZ MELISSA Living will on file 04/06/2022 DPA: Ever () Lumbar radiculopathy 04/28/2020 R L4 radiculopathy 04/2020 Medicare annual wellness visit, initial 04/06/2022 Medicare part B: 11/03/2019 Last done: 04/06/2022 Mild intermittent asthma without complication 02/10/2011 DENIES PROBLEMS, DENIES INHALERS Morbid obesity (HCC) 01/10/2012 NATALIE (obstructive sleep apnea) 09/10/2019 On BiPAP and sees VENTURA Schaffer Osteoarthritis of both knees 02/02/2017 Other intervertebral disc displacement, lumbosacral region 02/23/2023 PONV (postoperative nausea and vomiting) Postherpetic neuralgia 03/14/2014 Right mid-trunk area. 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 Psoriasis 10/23/2017 Rash bilateral forearms Rosacea 04/19/2013 Shingles 2014 Spinal stenosis of lumbar region without neurogenic claudication 03/19/2021 DR SANDOVAL FOLLOWING Spondylolisthesis of lumbar region 02/23/2023 Stage 3a chronic kidney disease (HCC) 03/19/2021 GERALD CALHOUN AND WILLARD HARRINGTON Uncontrolled type 2 diabetes mellitus with hyperglycemia ([facility]) 12/24/2019 Seeing GERALD Marte Uses roller walker Vitamin D deficiency 03/19/2021 Wears glasses reading Previous Surgical History PAST SURGICAL HISTORY Procedure Laterality Date ANESTH, HYSTERECTOMY 2000 ANESTHESIA NOSE AND ACCESSORY SINUSES NOS 1995 CHOLECYSTECTOMY 1989 COLONOSCOPY FLX DX W/COLLJ SPEC WHEN PFRMD 04/18/2011 X3 HEART CATHETERIZATION 2002 HEART CATH X2 2001 AND 2019 STENTS X3 2019 PAST SURGICAL HISTORY OF L. knee PAST SURGICAL HISTORY OF kidney stones PAST SURGICAL HISTORY OF Right 2007 Knee PAST SURGICAL HISTORY OF NERVE STIMULATOR AND REMOVAL MELISSA ORTH REMV CATARACT EXTRACAP,INSERT LENS Bilateral Rt 08/2019, Lt 11/2019 STRESS TEST ADENOSINE 05/11/2013 THYROIDECTOMY TOTAL/COMPLETE 2000 TONSILLECTOMY HX 1963 Family History FAMILY HISTORY Problem Relation Age of Onset Diabetes Mother Thyroid Mother Diabetes Father Diabetes Paternal Aunt Patient Allergies ALLERGIES Allergen Reactions Amlodipine Swelling Diflucan [Fluconazo* Hives Diphth,Pertus(Acell* Hives Actos [Pioglitazone* Other: See Comments Edema BLE AND OLGA HANDS Bactrim [Sulfametho* Hives HIVES Betadine [Povidone-* Anaphylaxis SEVERE ALLERGY TO IODINE AND BETADINE Fish Anaphylaxis ALL FISH Iodine Anaphylaxis IV contrast Lipitor [Atorvastat* Rash, Itching Metformin Diarrhea, GI Upset [place] Anaphylaxis Penicillins Unknown NOT SURE A CHILD Sulfa (Sulfonamide * Swelling SWELLING AND HIVES Current Medications Current Outpatient Medications on File Prior to Visit Medication Sig ELIQUIS 5 mg tab(s) Take 5 mg by mouth two times a day. montelukast (SINGULAIR) 10 mg tablet Take 1 tablet by mouth daily at bedtime. metoprolol succinate ER (TOPROL XL) 25 mg 24 hr tablet Take 1 tablet by mouth every morning. potassium chloride (K-TAB) 10 mEq tablet Take 2 tablets by mouth two times a day. levothyroxine (SYNTHROID) 175 mcg tablet Take 1 tablet by mouth once daily. M-T--F-Sa and none on Mon and Sun. Take on empty stomach. For Thyroid. Per endo: Dr. Marques (Patient taking differently: Take 175 mcg by mouth once daily. -T-TH-F-Sa and none and Sun. Take on empty stomach. For Thyroid. Per endo: Dr. Marques) C (more content not included)...[facility]04-03-2025 History of Present illness Narrative* Padmini Anguiano APRN.[facility] - 12/05/2024 1:59 PM EDT Chief Complaint Patient presents with: ER F/U HPI Derrell German is a 69 year old female who presents here today for Above Complaints.. Patient presents for ER follow up for bilateral PE. Patient was initiated on Eliquis. Patient reports she continues to have SOB and fatigue. Patient reports she completed 6 min ambulatory pulse ox and nighttime oxygen sleep study for pulmonology this past week. Past medical history, appointments, medications, allergies reviewed. Previous Medical History PAST MEDICAL HISTORY Diagnosis Date Advance directive discussed with patient 04/06/2022 Discussed 04/2022 Allergic rhinitis 02/10/2011 ASHD (arteriosclerotic heart disease) 03/08/[address] Hudson Asthma Dr[address] 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 History of left heart catheterization HEART CATH X2 STENTS X 3 NASH GARCIA Hyperlipidemia, mixed 06/30/2015 DR HUDSON, Hypertension, essential 06/30/2015 NASH GARCIA CARD- controlled with medication Joint pain PAIN MANAGMENT WILLARD CRUZ TOLLEY Living will on file 04/06/2022 DPA: [place] () Lumbar radiculopathy 04/28/2020 R L4 radiculopathy 04/2020 Medicare annual wellness visit, initial 04/06/2022 Medicare part B: 11/03/2019 Last done: 04/06/2022 Mild intermittent asthma without complication 02/10/2011 DENIES PROBLEMS, DENIES INHALERS Morbid obesity ([facility]) 01/10/2012 NATALIE (obstructive sleep apnea) 09/10/2019 On BiPAP and sees VENTURA Schaffer Osteoarthritis of both knees 02/02/2017 Other intervertebral disc displacement, lumbosacral region 02/23/2023 PONV (postoperative nausea and vomiting) Postherpetic neuralgia 03/14/2014 Right mid-trunk area. 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 Psoriasis 10/23/2017 Rash bilateral forearms Rosacea 04/19/2013 Shingles 2014 Spinal stenosis of lumbar region without neurogenic claudication 03/19/2021 DR SANDOVAL FOLLOWING Spondylolisthesis of lumbar region 02/23/2023 Stage 3a chronic kidney disease (HCC) 03/19/2021 GERALD CALHOUN AND WILLARD HARRINGTON Uncontrolled type 2 diabetes mellitus with hyperglycemia ([facility]) 12/24/2019 Seeing GERALD Marte Uses roller walker Vitamin D deficiency 03/19/2021 Wears glasses reading Previous Surgical History PAST SURGICAL HISTORY Procedure Laterality Date ANESTH, HYSTERECTOMY 2000 ANESTHESIA NOSE & ACCESSORY SINUSES NOS 1995 CHOLECYSTECTOMY 1989 COLONOSCOPY FLX DX W/COLLJ SPEC WHEN PFRMD 04/18/2011 X3 HEART CATHETERIZATION 2002 HEART CATH X2 2001 & 2019 STENTS X3 2019 PAST SURGICAL HISTORY OF L. knee PAST SURGICAL HISTORY OF kidney stones PAST SURGICAL HISTORY OF Right 2007 Knee PAST SURGICAL HISTORY OF NERVE STIMULATOR AND REMOVAL MELISSA ORTH REMV CATARACT EXTRACAP,INSERT LENS Bilateral Rt 08/2019, Lt 11/2019 STRESS TEST ADENOSINE 05/11/2013 THYROIDECTOMY TOTAL/COMPLETE 2000 TONSILLECTOMY HX 1963 Family History FAMILY HISTORY Problem Relation Age of Onset Diabetes Mother Thyroid Mother Diabetes Father Diabetes Paternal Aunt Patient Allergies ALLERGIES Allergen Reactions Amlodipine Swelling Diflucan [Fluconazo* Hives Diphth,Pertus(Acell* Hives Actos [Pioglitazone* Other: See Comments Edema BLE AND OLGA HANDS Bactrim [Sulfametho* Hives HIVES Betadine [Povidone-* Anaphylaxis SEVERE ALLERGY TO IODINE AND BETADINE Fish Anaphylaxis ALL FISH Iodine Anaphylaxis IV contrast Lipitor [Atorvastat* Rash, Itching Metformin Diarrhea, GI Upset [place] Anaphylaxis Penicillins Unknown NOT SURE A CHILD Sulfa (Sulfonamide * Swelling SWELLING AND HIVES Current Medications Current Outpatient Medications on File Prior to Visit Medication Sig ELIQUIS 5 mg tab(s) Take 5 mg by mouth two times a day. montelukast (SINGULAIR) 10 mg tablet Take 1 tablet by mouth daily at bedtime. metoprolol succinate ER (TOPROL XL) 25 mg 24 hr tablet Take 1 tablet by mouth every morning. potassium chloride (K-TAB) 10 mEq tablet Take 2 tablets by mouth two times a day. levothyroxine (SYNTHROID) 175 mcg tablet Take 1 tablet by mouth once daily. ----Sa and none onWed and Sun. Take on empty stomach. For Thyroid. Per endo: Dr. Marques (Patient taking differently: Take 175 mcg by mouth once daily. ----Sa and none and Sun. Take on empty stomach. For Thyroid. Per endo: Dr. Marques) Cholecalciferol, Vitamin D3, 125 mcg (5,000 unit) cap Take 1 capsule by mouth every morning. Last dose 02/07/23 insulin regular human, CONCENTRATED 500 UNIT/ML, (HUMULIN R) 500 unit/mL soln 150 units before breakfast 180 units before lunch 150 units before dinner 80-100 units at bedtime Depends on BS tests gabapentin (NEURONTIN) 100 mg capsule 300 mg by mouth three times/day rosuvastatin (CRESTOR) 20 mg tablet Take 1 tablet by mouth once daily. tocilizumab (ACTEMRA) 162 mg/0.9 mL subcutaneous injection Inject 162 mg subcutaneously one time a week. neomycin sulfate (NEOMYCIN 1%) Irrigate 500 mL as instructed one time only. clopidogrel (PLAVIX) 75 mg tablet Take 1 tablet by mouth once daily. enoxaparin (LOVENOX) 40 mg/0.4 mL 40 mg sub Q twice a day. (Patient not taking: Reported on 11/29/2024) famotidine (PEPCID) 20 mg tablet Take 1 tablet by mouth two times a day. clobetasol (TEMOVATE) 0.05 % ointment Apply to affected area two times a day. spironolactone (ALDACTONE) 25 mg tablet Take 1 tablet by mouth twice daily. polyethylene glycol 3350 17 gram packet Take 1 Packet by mouth once daily. Dissolve dose in 4 - 8 ounces of liquid and take as directed. acetaminophen (TYLENOL) 500 mg tablet Take 2 tablets by mouth every 6 hours as needed for pain. bisacodyl EC (DULCOLAX) 5 mg EC tablet Take 2 tablets by mouth once daily as needed for constipation. polyethylene glycol 3350 17 gram packet Take 1 Packet by mouth once daily as needed. Dissolve dose in 4 - 8 ounces of liquid and take as directed. calcium carbonate (ANTACID CALCIUM ORAL) Take by mouth as needed. Last dose 02/09 melatonin 10 mg cap Take 5-10 mg by mouth daily at bedtime. BIPAP daily at bedtime. dapagliflozin (FARXIGA) 10 mg tablet Take 10 mg by mouth daily with breakfast. Take 1 tablet daily TRULICITY 3 mg/0.5 mL pen injector Inject 4.5 mg subcutaneously one time a week. Monday furosemide (LASIX) 40 mg tablet Take 1 tablet by mouth twice daily. Per [facility] EPINEPHrine (EPIPEN) 0.3 mg/0.3 mL auto-injector Use auto-injector x 1 for allergic reaction. isosorbide mononitrate ER (IMDUR) 30 mg 24 hr tablet Take 60 mg by mouth every morning. nitroglycerin sublingual (NITROQUICK) 0.4 mg SL tablet Dissolve 1 tablet under the tongue every 5 minutes as needed for Chest Pain. No current facility-administered medications on file prior to visit. Social History Social History Tobacco Use Smoking status: Never Passive exposure: Never Smokeless tobacco: Never Vaping Use Vaping status: Never Used Substance Use Topics Alcohol use: Never Drug use: Never Review of Symptoms REVIEW OF SYSTEMS SEE HPI EXAM: BP 124/73 Pulse 84 Wt (!) 142 kg (313 lb 0.9 oz) BMI 57.26 kg/m General Appearance: Well appearing, alert, in no acute distress, well-hydrated, well nourished. Lungs: Lungs clear to auscultation. No wheezing, rhonchi, rales.. Heart: RRR without murmur, gallop, or rubs. No ectopy. Peripheral Pulses: Normal. Health Maintenance List RSV Vaccine(1 - Risk 60-74 years 1-dose series) Never done Shingrix Vaccine(1 of 2) due on 03/13/2015 Mammogram Screening due on 07/13/2022 Diabetic Foot Exam due on 02/22/2023 BP Controlled (<130/80) due on 04/06/2023 Covid-19 Vaccine( season) due on 05/05/2024 Advance Directive Discussion due on 09/04/2024 Dilated Retinal Exam due on 02/01/2025 HbA1C due on 05/14/2025 Urine Albumin:Creatinine Ratio due on 05/31/2025 Depression Screening due on 05/31/2025 Anxiety Screening due on 05/31/2025 DTaP,Tdap,Td Vaccine(5 - Td or Tdap) due on 06/30/2025 LDL Cholesterol due on 11/21/2025 Serum Creatinine due on 11/21/2025 Hemoglobin/Hematocrit due on 11/21/2025 Annual PCP Team Chronic Disease Visit due on 11/29/2025 Colorectal Cancer Screening due on 05/24/2027 Bone Density Screening Completed Influenza Vaccine Completed Hepatitis C Screening Completed Pneumococcal Vaccine: 50+ Completed Spirometry Discontinued Cervical Cancer Screening Discontinued Data reviewed ER report from [facility] reviewed. ASSESSMENT/PLAN: 1. Acute pulmonary embolism, unspecified pulmonary embolism type, unspecified whether acute cor pulmonale present (HCC) - ICD9: 415.19, ICD10: I26.99 - Follow up with pulm as scheduled. 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 OPERATOR-C Status: REG CLI Location: Date: Sex: F C PSN 6 Minute Walk Test 6 Minute Walk Test 6 Minute Walk Test: 6 Minute Walk Test PSN:6-Minute Walk Test Start: 12/03/24 11:43 Freq: Status: Active Protocol: [id number] Document 12/03/24 11:15 AEH (Rec: 12/03/24 11:56 AEH [id number]) 6 Minute Walk Test Date Performed 12/03/24 Time Performed 11:15 Height 5 ft 2 in Weight: 320 lb Weight in Pounds 320.[address]: Roland Assistive device Walker used: Pre-test Oxygen Delivery Room Air Method Pulse Ox (%) 98 Pulse Rate (60-100 91 beats/min) Dyspnea Arielle Scale ( 0.5 0-10) Exertion Arielle Scale 6 (6-20) 1st minute Oxygen Delivery Room Air Method Pulse Ox (%) 97 Pulse Rate (60-100 101 H beats/min) 2nd minute Oxygen Delivery Room Air Method Dyspnea Arielle Scale ( 3 0-10) Number of Rests 1 Taken Reported Symptoms Increased Work of Breathing 3rd minute Oxygen Delivery Room Air Method Dyspnea Arielle Scale ( 3 0-10) Number of Rests 1 Taken Reported Symptoms Increased Work of Breathing 4th minute Oxygen Delivery Room Air Method Pulse Ox (%) 3 Number of Rests 1 Taken Reported Symptoms Increased Work of Breathing 5th minute Oxygen Delivery Room Air Method Dyspnea Arielle Scale ( 3 0-10) Number of Rests 1 Taken Reported Symptoms Increased Work of Breathing 6th minute Oxygen Delivery Room Air Method Dyspnea Arielle Scale ( 3 0-10) Number of Rests 1 Taken Reported Symptoms Increased Work of Breathing Post-test Oxygen Delivery Room Air Method Pulse Ox (%) 98 Pulse Rate (60-100 91 beats/min) Full Laps Walked 1 Partial Lap, Number 0 of Tiles Walked Total Distance 59 Walked (ft) 12/03/24 11:47 Cardiopulmonary Services by Christin Nicholas Pt arrived at walk on room air in wheelchair. Room air rest saturation was 98%. Walk was started onroom air. Pt walked down baig turned around to come back andstated she needed to sit. Pt rested from 1 minute 43 seconds to end of walk. Pt rated her S.O.B as 3 (severe). Pt also stated that she felther heart was racingand coming out of her chest. Pt's saturation was always between 94% and 97% on room air at rest.Once pt stated she felt back to baseline for her breathing and S.O.B she left. Initialized on 12/03/24 11:47 - END OF NOTE Interpretation Interpretation: The patient ambulated only 59 feet over the course of 1 minute and 43 seconds. Pretesting oxygen saturation was noted to be 98% on room air. With limited ambulation, the patient's kenna oxygen saturation was 97%. Although there was evidence of severely impaired walk distance, there was no significant exertionaloxygen desaturation. Recommendations Recommendations: Nondiagnostic study due to limited ambulatory distance. There is no significantexertional oxygen desaturation. 12/05/24 1013 O> Date _ David Florez DO CC: ~ Date Dictated: 12/05/24 1011 Date Transcribed: 12/05/24 1011 Loss Prevention Analyst: Dr. David Florez DO Signed [facility]04-02-2025 NoteHNO ID: [id number] Author: KAY NEWMAN MA Service: ? 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 Type: Progress Notes Filed: 12/04/2024 11:12 Note Text: Scan on 12/03/2024 7:19 AM by Provider, External, PA-C: Consultation - Rheumatology Kay Newman MA'[facility]04-02-2025 NoteHNO ID: [id number] Author: KAY NEWMAN MA Service: ? 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 Type: Progress Notes Filed: 12/04/2024 11:11 Note Text: Scan on 11/30/2024 12:11 AM by Mary Dow PA-C: Consultation - Emergency Medicine Patient scheduled. [facility] History of Present illness Narrative* Kay Newman MA - 12/04/2024 11:11 AM EDT Scan on 11/30/2024 12:11 AM by Mary Dow PA-C: Consultation - Emergency Medicine Patient scheduled. Kay Newman MA documented in [facility]The [facility]04[facility] History of Present illness Narrative* Kay Newman MA - 12/04/2024 11:11 AM EDT Scan on 12/03/2024 7:19 AM by ProviderMary PA-C: Consultation - Rheumatology Kay Newman MA' documented in this encounterThe [facility]03-28-[facility] Radiology Diagnostic study note [facility] Imaging Services [address] [place] [address] [id number] CTA Chest W/WO Contrast MR#: [id number] Acct: [id number] Name: DERRELL GERMAN Rep #: [id number] : 1955 F 69 From: Rex Gupta MD PCP: Dr. Willard Henriquez MD Status: REG ER Study:CTA Chest W/WO Contrast Date of Exam: 11/29/24 Exam# [id number] Ordering Dr: Kandis Vital MD EXAM: CTA CHEST W/WO CONTRAST 11/29/2024 CLINICAL HISTORY: Dyspnea and elevated D-dimer will be pretreated COMPARISON: Preceding radiographs TECHNIQUE: CTA of the chest with coronal and sagittal and MIP reformatted images. 96 cc Isovue 370 contrast FINDINGS: Study is positive for bilateral multifocal partially occlusive distal hilar interlobar artery and segmental branches pulmonary embolism. No large saddle central pulmonary embolism. LV to RV ratio appears within limits without CT findings to suggest right heart strain at this time. Thoracic aorta appears within limits. Apparent thyroidectomy. Coronary calcification and/or stents greatest circumflex. No pericardial or pleural effusion. No adenopathy identified. Images of the upper abdomen appear within limits. Status post cholecystectomy. The central airways are patent. Small somewhat wedge-shaped opacity at the right posterior recessesfor example axial 72 can not exclude small infarct. Recommend follow-up to resolution. Posterior soft tissue changes and partial T10 hemilaminectomy sagittal 172, clinically correlate. Large sclerotic focus within the right humeral head coronal 162 may represent bone island or bone infarct andis visible on radiographs 08/08/2018. CT/CTA Chest W/WO Contrast IMPRESSION: Study is positive for bilateral multifocal partially occlusive distal hilar interlobar artery and segmental branches pulmonary embolism. No large saddle central pulmonary embolism. LV to RV ratio appears within limits without CT findings to suggest right heart strain at this time. Small somewhat wedge-shaped opacity at the right posterior recesses for example axial 72 can not exclude small infarct. Recommend follow-up to resolution. Posterior soft tissue changes and partial T10 hemilaminectomy sagittal 172, clinically correlate. Findings were discussed by myself by phone with Dr. Vital at 9:05 p.m. 11/29/2024. Reading Location: [id number] CC: Dr. Glen Vital MD; Dr. Willard Henriquez MD ~ Loss Prevention Analyst: Signed [facility]03-28-2025 Radiology Diagnostic study note [facility] Imaging Services [address] [place] [address] Chest PA and Lateral MR#: [id number] Acct: [id number] Name: DERRELL GERMAN Rep #: [id number] : 1955 F 69 From: Fariba Tamez MD PCP: Dr. Willard Yemi, MD Status: PRE ER Study:Chest PA and Lateral Date of Exam: 11/29/24 Exam# [id number] Ordering Dr: Kandis Vital MD PROCEDURE: CHEST PA AND LATERAL 11/29/2024 REASON FOR EXAM: DYSPNEA TECHNIQUE: Frontal and lateral views of the chest. FINDINGS: Mild infrahilar pulmonary opacities are present bilaterally. No pleural effusion or pneumothorax. The cardiomediastinal silhouette is unremarkable. No acute osseous or soft tissue abnormality. RAD/Chest PA and Lateral IMPRESSION: Mild infrahilar pulmonary opacities, likely due to pulmonary edema. Reading Location: [facility] CC: Dr. Glen Vital MD; Dr. Willard Henriquez MD ~ Loss Prevention Analyst: Signed [facility]03-28-2025 NoteHNO ID: [id number] Author: WILLARD HENRIQUEZ MD Service: ? Author Type: Physician Type: Progress Notes Filed: 11/29/2024 14:55 Note Text: Chief Complaint Patient presents with: F/U 6 months HPI Derrell German is a 69 year old female who presents here today for 6 month follow up. 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 Patient has gained 75 pounds since the steroids. Patient also saw Dr. Florez yesterday and they are doing overnight 02 next week; 02 during day walking test not until january 2025. Patient has been SOB and having chest pain at night; is having some discomfort. Very MIRAMONTES and positive for orthopnea. Past medical history, appointments, medications, allergies reviewed. Previous Medical History PAST MEDICAL HISTORY Diagnosis Date Advance directive discussed with patient 04/06/2022 Discussed 04/2022 Allergic rhinitis 02/10/2011 ASHD (arteriosclerotic heart disease) 03/08/[address] [place] Asthma Dr[address] 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 History of left heart catheterization HEART CATH X2 STENTS X 3 NASH GARCIA Hyperlipidemia, mixed 06/30/2015 DR HUDSON, Hypertension, essential 06/30/2015 NASH GARCIA CARD- controlled with medication Joint pain PAIN MANAGMENT WILLARD CRUZ TOLLEY Living will on file 04/06/2022 DPA: Ever () Lumbar radiculopathy 04/28/2020 R L4 radiculopathy 04/2020 Medicare annual wellness visit, initial 04/06/2022 Medicare part B: 11/03/2019 Last done: 04/06/2022 Mild intermittent asthma without complication 02/10/2011 DENIES PROBLEMS, DENIES INHALERS Morbid obesity (HCC) 01/10/2012 NATALIE (obstructive sleep apnea) 09/10/2019 On BiPAP and sees VENTURA Schaffer Osteoarthritis of both knees 02/02/2017 Other intervertebral disc displacement, lumbosacral region 02/23/2023 PONV (postoperative nausea and vomiting) Postherpetic neuralgia 03/14/2014 Right mid-trunk area. 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 Psoriasis 10/23/2017 Rash bilateral forearms Rosacea 04/19/2013 Shingles 2014 Spinal stenosis of lumbar region without neurogenic claudication 03/19/2021 DR SANDOVAL FOLLOWING Spondylolisthesis of lumbar region 02/23/2023 Stage 3a chronic kidney disease (HCC) 03/19/2021 GERALD CALHOUN AND WILLARD HARRINGTON Uncontrolled type 2 diabetes mellitus with hyperglycemia ([facility]) 12/24/2019 Seeing GERALD Marte Uses roller walker Vitamin D deficiency 03/19/2021 Wears glasses reading Previous Surgical History PAST SURGICAL HISTORY Procedure Laterality Date ANESTH, HYSTERECTOMY 2000 ANESTHESIA NOSE AND ACCESSORY SINUSES NOS 1996 CHOLECYSTECTOMY 1989 COLONOSCOPY FLX DX W/COLLJ SPEC WHEN PFRMD 04/18/2011 X3 HEART CATHETERIZATION 2002 HEART CATH X2 2002 AND 2019 STENTS X3 2019 PAST SURGICAL HISTORY OF L. knee PAST SURGICAL HISTORY OF kidney stones PAST SURGICAL HISTORY OF Right 2007 Knee PAST SURGICAL HISTORY OF NERVE STIMULATOR AND REMOVAL TOLLEY ORTH REMV CATARACT EXTRACAP,INSERT LENS Bilateral Rt 08/2019, Lt 11/2019 STRESS TEST ADENOSINE 05/11/2013 THYROIDECTOMY TOTAL/COMPLETE 2000 TONSILLECTOMY HX 1963 Family History FAMILY HISTORY Problem Relation Age of Onset Diabetes Mother Thyroid Mother Diabetes Father Diabetes Paternal Aunt Patient Allergies ALLERGIES Allergen Reactions Amlodipine Swelling Diflucan [Fluconazo* Hives Diphth,Pertus(Acell* Hives Actos [Pioglitazone* Other: See Comments Edema BLE AND OLGA HANDS Bactrim [Sulfametho* Hives HIVES Betadine [Povidone-* Anaphylaxis SEVERE ALLERGY TO IODINE AND BETADINE Fish Anaphylaxis ALL FISH Iodine Anaphylaxis IV contrast Lipitor [Atorvastat* Rash, Itching Metformin Diarrhea, GI Upset [place] Anaphylaxis Penicillins Unknown NOT SURE A CHILD Sulfa (Sulfonamide * Swelling SWELLING AND HIVES Current Medications Current Outpatient Medications on File Prior to Visit Medication Sig montelukast (SINGULAIR) 10 mg tablet Take 1 tablet by mouth daily at bedtime. metoprolol succinate ER (TOPROL XL) 25 mg 24 hr tablet Take 1 tablet by mouth every morning. potassium chloride (K-TAB) 10 mEq tablet Take 2 tablets by mouth two times a day. levothyroxine (SYNTHROID) 175 mcg tablet Take 1 tablet by mouth once daily. M-T--- and none on Mon and Mon. Take on empty stomach. For Thyroid. Per endo: (more content not included)...[facility]03-28-2025 History of Present illness Narrative* Willard Henriquez MD - 11/29/2024 2:07 PM EDT Chief Complaint Patient presents with: F/U 6 months HPI Derrell German is a 69 year old female who presents here today for 6 month follow up. 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 Patient has gained 75 pounds since the steroids. Patient also saw Dr. Florez yesterday and they are doing overnight 02 next week; 02 during day walking test not until january 2025. Patient has been SOB and having chest pain at night; is having some discomfort. Very MIRAMONTES and positive for orthopnea. Past medical history, appointments, medications, allergies reviewed. Previous Medical History PAST MEDICAL HISTORY Diagnosis Date Advance directive discussed with patient 04/06/2022 Discussed 04/2022 Allergic rhinitis 02/10/2011 ASHD (arteriosclerotic heart disease) 03/08/[address] [place] Asthma Dr[address] 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 History of left heart catheterization HEART CATH X2 STENTS X 3 NASH GARCIA Hyperlipidemia, mixed 06/30/2015 DR HUDSON, Hypertension, essential 06/30/2015 NASH GARCIA CARD- controlled with medication Joint pain PAIN MANAGMENT [facility] Living will on file 04/06/2022 DPA: [place] () Lumbar radiculopathy 04/28/2020 R L4 radiculopathy 04/2020 Medicare annual wellness visit, initial 04/06/2022 Medicare part B: 11/03/2019 Last done: 04/06/2022 Mild intermittent asthma without complication 02/10/2011 DENIES PROBLEMS, DENIES INHALERS Morbid obesity ([facility]) 01/10/2012 NATALIE (obstructive sleep apnea) 09/10/2019 On BiPAP and sees VENTURA Schaffer Osteoarthritis of both knees 02/02/2017 Other intervertebral disc displacement, lumbosacral region 02/23/2023 PONV (postoperative nausea and vomiting) Postherpetic neuralgia 03/14/2014 Right mid-trunk area. 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 Psoriasis 10/23/2017 Rash bilateral forearms Rosacea 04/19/2013 Shingles 2014 Spinal stenosis of lumbar region without neurogenic claudication 03/19/2021 DR SANDOVAL FOLLOWING Spondylolisthesis of lumbar region 02/23/2023 Stage 3a chronic kidney disease (HCC) 03/19/2021 GERALD CALHOUN AND WILLARD [facility] Uncontrolled type 2 diabetes mellitus with hyperglycemia ([facility]) 12/24/[address] Marques,GERALD Uses roller walker Vitamin D deficiency 03/19/2021 Wears glasses reading Previous Surgical History PAST SURGICAL HISTORY Procedure Laterality Date ANESTH, HYSTERECTOMY 2000 ANESTHESIA NOSE & ACCESSORY SINUSES NOS 1995 CHOLECYSTECTOMY 1989 COLONOSCOPY FLX DX W/COLLJ SPEC WHEN PFRMD 04/18/2011 X3 HEART CATHETERIZATION 2002 HEART CATH X2 2001 & 2019 STENTS X3 2019 PAST SURGICAL HISTORY OF L. knee PAST SURGICAL HISTORY OF kidney stones PAST SURGICAL HISTORY OF Right 2007 Knee PAST SURGICAL HISTORY OF NERVE STIMULATOR AND REMOVAL MELISSA ORTH REMV CATARACT EXTRACAP,INSERT LENS Bilateral Rt 08/2019, Lt 11/2019 STRESS TEST ADENOSINE 05/11/2013 THYROIDECTOMY TOTAL/COMPLETE 2000 TONSILLECTOMY HX 1963 Family History FAMILY HISTORY Problem Relation Age of Onset Diabetes Mother Thyroid Mother Diabetes Father Diabetes Paternal Aunt Patient Allergies ALLERGIES Allergen Reactions Amlodipine Swelling Diflucan [Fluconazo* Hives Diphth,Pertus(Acell* Hives Actos [Pioglitazone* Other: See Comments Edema BLE AND OLGA HANDS Bactrim [Sulfametho* Hives HIVES Betadine [Povidone-* Anaphylaxis SEVERE ALLERGY TO IODINE AND BETADINE Fish Anaphylaxis ALL FISH Iodine Anaphylaxis IV contrast Lipitor [Atorvastat* Rash, Itching Metformin Diarrhea, GI Upset [place] Anaphylaxis Penicillins Unknown NOT SURE A CHILD Sulfa (Sulfonamide * Swelling SWELLING AND HIVES Current Medications Current Outpatient Medications on File Prior to Visit Medication Sig montelukast (SINGULAIR) 10 mg tablet Take 1 tablet by mouth daily at bedtime. metoprolol succinate ER (TOPROL XL) 25 mg 24 hr tablet Take 1 tablet by mouth every morning. potassium chloride (K-TAB) 10 mEq tablet Take 2 tablets by mouth two times a day. levothyroxine (SYNTHROID) 175 mcg tablet Take 1 tablet by mouth once daily. M-T--- and none onWed and Sun. Take on empty stomach. For Thyroid. Per endo: Dr. Marques Cholecalciferol, Vitamin D3, 125 mcg (5,000 unit) cap Take 1 capsule by mouth every morning. Last dose 02/07/23 insulin regular human, CONCENTRATED 500 UNIT/ML, (HUMULIN R) 500 unit/mL soln 150 units before breakfast 180 units before lunch 150 units before dinner 80-100 units at bedtime Depends on BS tests gabapentin (NEURONTIN) 100 mg capsule 300 mg by mouth three times/day rosuvastatin (CRESTOR) 20 mg tablet Take 1 tablet by mouth once daily. tocilizumab (ACTEMRA) 162 mg/0.9 mL subcutaneous injection Inject 162 mg subcutaneously one time a week. neomycin sulfate (NEOMYCIN 1%) Irrigate 500 mL as instructed one time only. clopidogrel (PLAVIX) 75 mg tablet Take 1 tablet by mouth once daily. enoxaparin (LOVENOX) 40 mg/0.4 mL 40 mg sub Q twice a day. famotidine (PEPCID) 20 mg tablet Take 1 tablet by mouth two times a day. clobetasol (TEMOVATE) 0.05 % ointment Apply to affected area two times a day. spironolactone (ALDACTONE) 25 mg tablet Take 1 tablet by mouth twice daily. polyethylene glycol 3350 17 gram packet Take 1 Packet by mouth once daily. Dissolve dose in 4 - 8 ounces of liquid and take as directed. acetaminophen (TYLENOL) 500 mg tablet Take 2 tablets by mouth every 6 hours as needed for pain. bisacodyl EC (DULCOLAX) 5 mg EC tablet Take 2 tablets by mouth once daily as needed for constipation. polyethylene glycol 3350 17 gram packet Take 1 Packet by mouth once daily as needed. Dissolve dose in 4 - 8 ounces of liquid and take as directed. calcium carbonate (ANTACID CALCIUM ORAL) Take by mouth as needed. Last dose 02/09 melatonin 10 mg cap Take 5-10 mg by mouth daily at bedtime. BIPAP daily at bedtime. dapagliflozin (FARXIGA) 10 mg tablet Take 10 mg by mouth daily with breakfast. Take 1 tablet daily TRULICITY 3 mg/0.5 mL pen injector Inject 4.5 mg subcutaneously one time a week. Monday furosemide (LASIX) 40 mg tablet Take 1 tablet by mouth twice daily. Per Melissa Cardio (Patient taking differently: Take 60 mg by mouth twice daily. NASH GARCIA) EPINEPHrine (EPIPEN) 0.3 mg/0.3 mL auto-injector Use auto-injector x 1 for allergic reaction. (Patient taking differently: Inject 0.3 mg intramuscularly as needed. Use auto-injector x 1 for allergic reaction.) isosorbide mononitrate ER (IMDUR) 30 mg 24 hr tablet Take 60 mg by mouth every morning. nitroglycerin sublingual (NITROQUICK) 0.4 mg SL tablet Dissolve 1 tablet under the tongue every 5 minutes as needed for Chest Pain. No current facility-administered medications on file prior to visit. Social History Social History Tobacco Use Smoking status: Never Passive exposure: Never Smokeless tobacco: Never Vaping Use Vaping status: Never Used Substance Use Topics Alcohol use: Never Drug use: Never Review of Symptoms REVIEW OF SYSTEMS See HPI EXAM: BP 136/62 Pulse 82 Resp 24 Wt (!) 143.8 kg (317 lb) SpO2 95% BMI 57.98 kg/m General Appearance: patient does not appear well, alert, in and in no acute distress, well-hydrated, well nourished.. Lungs: Lungs clear to auscultation. No wheezing, rhonchi, rales. Breath sounds are diminished on the left and absent on the right. Health Maintenance List RSV Vaccine(1 - Risk 60-74 years 1-dose series) Never done Shingrix Vaccine(1 of 2) due on 03/13/2015 Mammogram Screening due on 07/13/2022 Diabetic Foot Exam due on 02/22/2023 BP Controlled (<130/80) due on 04/06/2023 Covid-19 Vaccine(2023- season) due on 05/05/2024 Advance Directive Discussion due on 09/04/2024 Dilated Retinal Exam due on 02/01/2025 HbA1C due on 05/14/2025 Urine Albumin:Creatinine Ratio due on 05/31/2025 Annual PCP Team Chronic Disease Visit due on 05/31/2025 Depression Screening due on 05/31/2025 Anxiety Screening due on 05/31/2025 DTaP,Tdap,Td Vaccine(5 - Td or Tdap) due on 06/30/2025 LDL Cholesterol due on 11/21/2025 Serum Creatinine due on 11/21/2025 Hemoglobin/Hematocrit due on 11/21/2025 Colorectal Cancer Screening due on 05/24/2027 Bone Density Screening Completed Influenza Vaccine Completed Hepatitis C Screening Completed Pneumococcal Vaccine: 50+ Completed Spirometry Discontinued Cervical Cancer Screening Discontinued Data reviewed A/P ASSESSMENT/PLAN: 1. Acute on chronic diastolic congestive heart failure (HCC) - ICD9: 428.33, 428.0, ICD10: I50.33 (primary diagnosis) - see below 2. ASHD (arteriosclerotic heart disease) - ICD9: 414.00, ICD10: I25.10 - see below 3. Orthopnea - ICD9: 786.02, ICD10: R06.01 - see below 4. Stage 3a chronic kidney disease (HCC) - ICD9: 585.3, ICD10: N18.31 - see below 5. Mild intermittent asthma without complication - ICD9: 493.90, ICD10: J45.20 - see below 6. MIARMONTES (dyspnea on exertion) - ICD9: 786.09, ICD10: R06.09 - see below Based on symptoms and exam differential includes acute on chronic CHF, acute TN, pneumonia, SISI. Patient and were advised that I'm concerned there is something significant going on and that he should take her to [facility] ER now. Both were comfortable with this. Report given to ER provider. Willard Henriquez MD documented in [facility]The [facility] NoteHNO ID: [id number] Author: JARRED CLEVELAND MA Service: ? 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 Type: Progress Notes Filed: 11/28/2024 09:28 Note Text: Scan on 11/27/2024 4:09 PM by Mary Dow PA-C: Consultation - Pulmonary [facility]03-27-2025 History of Present illness Narrative* Jarred Cleveland MA - 11/28/2024 9:28 AM EDT Scan on 11/27/2024 4:09 PM by Mary Dow PA-C: Consultation - Pulmonary documented in this encounterThe [facility]03-[facility] Telephone encounter Note * Telephone Encounter - Abby Cox RN - 11/21/2024 10:30 AM EDT Pt called and is notified of providers message. Pt voices understanding and states she already has them scheduled. Abby Cox RN [facility]03-20-2025 Miscellaneous Notes* Telephone Encounter - Abby Cox RN - 11/21/2024 10:30 AM EDT Pt called and is notified of providers message. Pt voices understanding and states she already has them scheduled. Abby Cox RN * Telephone Encounter - Willard Henriquez MD - 11/21/2024 9:27 AM EDT Let patient know orders for non-fasting blood work placed. * Telephone Encounter - Trish Garcia RN - 11/21/2024 9:20 AM EDT Patient calls and states that she has 6 month follow up with provider on 11/29/2024. Patient askingfor labs to be placed prior to appointment so that she can get these done. Patient did have HbgA1C done 0n 11/11/2024 which was or ordered by Dr. Marques so that lab does not need to be ordered. Please review and advise, Trish Garcia RN documented in this encounterThe [facility]03-20-[facility]25 Telephone encounter Note * Telephone Encounter - Willard Henriquez MD - 11/21/2024 9:27 AM EDT Let patient know orders for non-fasting blood work placed. [facility]03-20-[facility] Telephone encounter Note* Telephone Encounter - Trish Garcia RN - 11/21/2024 9:20 AM EDT Patient calls and states that she has 6 month follow up with provider on 11/29/2024. Patient askingfor labs to be placed prior to appointment so that she can get these done. Patient did have HbgA1C done 0n 11/11/2024 which was or ordered by Dr. Marques so that lab does not need to be ordered. Please review and advise, Trish Garcia RN [facility]03-19-2025 NoteHNO ID: [id number] Author: KAY NEWMAN MA Service: ? 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 Type: Progress Notes Filed: 11/20/2024 18:56 Note Text: Scan on 11/18/2024 3:44 PM by Mary Dow PA-C: Consultation - Endocrinology Kay Newman [facility]03-19-2025 History of Present illness Narrative* Kay Newman MA - 11/20/2024 6:56 PM EDT Scan on 11/18/2024 3:44 PM by Mary Dow PA-C: Consultation - Endocrinology Kay Newman MA documented in this encounterThe [facility]03-[facility]-2025 NoteHNO ID: [id number] Author: KAY NEWMAN MA Service: ? 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 Type: Progress Notes Filed: 11/04/2024 15:56 Note Text: Scan on 10/31/2024 6:13 PM by Mary Dow PA-C: Chemistry Scan on 10/31/2024 7:41 PM by Mary Dow PA-C: Chemistry Kay Newman [facility]03-03-2025 History of Present illness Narrative* Kay Newman MA - 11/04/2024 3:55 PM EST Scan on 10/31/2024 6:13 PM by Mary Dow PA-C: Chemistry Scan on 10/31/2024 7:41 PM by Mary Dow PA-C: Chemistry Kay Newman MA documented in this encounterThe [facility]02-19-2025 NoteHNO ID: [id number] Author: KAY NEWMAN MA Service: ? 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 Type: Progress Notes Filed: 10/23/2024 18:45 Note Text: Scan on 10/23/2024 3:28 PM by Provider, TRINA Hernandez: Consultation - Cardiology Kay Newman [facility]02-19-2025 History of Present illness Narrative* Kay Newman MA - 10/23/2024 6:45 PM EST Scan on 10/23/2024 3:28 PM by Provider, TRINA Hernandez: Consultation - Cardiology Kay Newman MA documented in this encounterThe [facility] Evaluation note* Diagnosis Onset Date Resolution Status Admit Date Chest pain, unspecified acute [facility] 2024 1:59pm Atherosclerotic heart diseas [place] coronary artery without angina pectoris chronic October 23, 2024 1:59pm MIRAMONTES (dyspnea on exertion) chronic October 23, 2024 1:59pm [facility] Work Phone: 1(352) 712-666602-19-2025 Evaluation note* Diagnosis Onset Date Resolution Status Admit Date Chest pain, unspecified acute F [facility] 2024 1:59pm Atherosclerotic heart diseas [place] coronary artery without angina pectoris chronic October 23, 2024 1:59pm MIRAMONTES (dyspnea on exertion) chronic October 23, 2024 1:59pm Benign essential hypertension chroni c November 11, 2024 2:13pm Diabetes chronic November 11 2:13pm Hypothyroidism (acquired) chronic November 11, 2024 2:13pm Mixed hyperlipidemia chronic 2024 2:13pm Obesity chronic November 11 2:13pm Osteoporosis chronic November 11, 2024 2:13pm Presence of stent in coronar y artery March, chronic November 11, 2024 2:13pm 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 2 diabetes mellitus chronic November 11, 2024 2:13pm Hypoxia acute November 27 2:33pm MIRAMONTES (dyspnea on exertion) chronic November 27, 2024 2:33pm Obesity chronic November 27 2:33pm NATALIE (obstructive sleep apnea) chroni c November 27, 2024 2:33pm [facility] Work Phone: 1(877) 767-592402-19-2025 Evaluation note* Diagnosis Onset Date Resolution Status Admit Date Chest pain, unspecified acute F ebruary 2024 1:59pm Atherosclerotic heart diseas [place] coronary artery without angina pectoris chronic October 23, 2024 1:59pm MIRAMONTES (dyspnea on exertion) chronic October 23, 2024 1:59pm Benign essential hypertension chroni c November 11, 2024 2:13pm Diabetes chronic November 11 2:13pm Hypothyroidism (acquired) November 11, 2024 2:13pm Mixed hyperlipidemia chronic 2024 2:13pm Obesity November 11 2:13pm Osteoporosis chronic November 11, 2024 2:13pm Presence of stent in coronar y artery March,November 11, 2024 2:13pm 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 2 diabetes mellitus November 11 2:13pm Hypoxia acute November 27 2:33pm MIRAMONTES (dyspnea on exertion) chronic November 27, 2024 2:33pm Obesity chronic November 27 2:33pm NATALIE (obstructive sleep apnea) chroni c November 27, 2024 2:33pm Palpitations acute January 01, 2025 10:49am Pulmonary embolism acute January 01, 2025 10:49am Benign essential hypertension chroni c January 01, 2025 10:49am MIRAMONTES (dyspnea on exertion) chronic January 01, 2025 10:49am Mixed hyperlipidemia chronic Apr l 2024 10:49am Obesity chronic January 01 10:49am Stented coronary artery March 13, 2019January 01, 2025 10:49am Hypoxia acute January 09, 2025 1:38pm Pulmonary embolism acute January 1:38pm Obesity chronic January 09, 2025 1:38pm NATALIE (obstructive sleep apnea) chroni c January 09, 2025 1:38pm Abdominal pain acute January 16, 2025 12:53pm Diarrhea acute January 16, 2025 12:53pm Fecal incontinence acute January 162024 12:53pm Iron deficiency anemia acute Ma y 2024 12:53pm [facility] Work Phone: 1(861) 313-991002-19-2025 Evaluation note* Diagnosis Onset Date Resolution Status Admit Date Chest pain, unspecified acute F ebruary 2024 1:59pm Atherosclerotic heart diseas [place] coronary artery without angina pectoris chronic October 23, 2024 1:59pm MIRAMONTES (dyspnea on exertion) chronic October 23, 2024 1:59pm Benign essential hypertension chroni c November 11, 2024 2:13pm Diabetes chronic November 11 2:13pm Hypothyroidism (acquired) chronic November 11, 2024 2:13pm Mixed hyperlipidemia chronic 2024 2:13pm Obesity chronic November 11 2:13pm Osteoporosis chronic November 11, 2024 2:13pm Presence of stent in coronar y artery March,November 11, 2024 2:13pm 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 2 diabetes mellitus chronic November 11 2:13pm Hypoxia acute November 27 2:33pm MIRAMONTES (dyspnea on exertion) chronic November 27, 2024 2:33pm Obesity chronic November 27 2:33pm NATALIE (obstructive sleep apnea) chroni c November 27, 2024 2:33pm Palpitations acute January 01, 2025 10:49am Pulmonary embolism acute January 01, 2025 10:49am Benign essential hypertension chroni c January 01, 2025 10:49am MIRAMONTES (dyspnea on exertion) chronic January 01, 2025 10:49am Mixed hyperlipidemia chronic Apri l 2024 10:49am Obesity chronic January 01 10:49am Stented coronary artery March 13, 2019 chronic January 01, 2025 10:49am Hypoxia acute January 09, 2025 1:38pm Pulmonary embolism acute January 1:38pm Obesity chronic January 09, 2025 1:38pm NATALIE (obstructive sleep apnea) chroni c January 09, 2025 1:38pm Abdominal pain acute January 16, 2025 12:53pm Diarrhea acute January 16, 2025 12:53pm Fecal incontinence acute January 162024 12:53pm Iron deficiency anemia acute Ma y 2024 12:53pm Benign essential hypertension chroni c January 20, 2025 1:49pm Diabetes chronic January 20, 2025 1:49pm Hypothyroidism (acquired) chronic January 20, 2025 1:49pm Mixed hyperlipidemia chronic January 20, 2025 1:49pm Obesity chronic January 20, 2025 1:49pm Osteoporosis chronic January 20 1:49pm 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 2 diabetes mellitus chronic January 20, 2025 1:49pm [facility] Work Phone: 1(108) 662-865401-28-2025 NoteHNO ID: [id number] Author: LOVE FREEMAN LPN Service: ? Author Type: LICENSED NURSE Type: Progress Notes Filed: 10/01/2024 07:11 Note Text: Scan on 09/30/2024 6:12 PM by Mary Dow PA-C: Chemistry Scan on 09/30/2024 6:36 PM by Mary Dow PA-C: [facility] History of Present illness Narrative* Love Freeman LPN - 10/01/2024 7:11 AM EST Scan on 09/30/2024 6:12 PM by Mary Dow PA-C: Chemistry Scan on 09/30/2024 6:36 PM by Mary Dow PA-C: Hematology documented in this encounterThe [facility]12-[facility]24 Telephone encounter Note * Telephone Encounter - Willard Henriquez MD - 08/12/2024 8:46 PM EST The following approved medication requests have been transmitted electronically. Requested Prescriptions Signed Prescriptions Disp Refills potassium chloride (K-TAB) 10 mEq tablet 120 tablet 11 Sig: Take 2 tablets by mouth two times a day. Authorizing Provider: WILLARD HENRIQUEZ MD [facility]12-09-2024 Telephone encounter Note* Telephone Encounter - Willard Henriquez MD - 08/12/2024 8:46 PM EST The following approved medication requests have been transmitted electronically. Requested Prescriptions Signed Prescriptions Disp Refills montelukast (SINGULAIR) 10 mg tablet 90 tablet 1 Sig: Take 1 tablet by mouth daily at bedtime. Authorizing Provider: WILLARD HENRIQUEZ metoprolol succinate ER (TOPROL XL) 25 mg 24 hr tablet 90 tablet 1 Sig: Take 1 tablet by mouth every morning. Authorizing Provider: WILLARD HENRIQUEZ MD [facility]12-09-2024 Miscellaneous Notes* Telephone Encounter - Willard Henriquez MD - 08/12/2024 8:46 PM EST The following approved medication requests have been transmitted electronically. Requested Prescriptions Signed Prescriptions Disp Refills montelukast (SINGULAIR) 10 mg tablet 90 tablet 1 Sig: Take 1 tablet by mouth daily at bedtime. Authorizing Provider: WILLARD HENRIQUEZ metoprolol succinate ER (TOPROL XL) 25 mg 24 hr tablet 90 tablet 1 Sig: Take 1 tablet by mouth every morning. Authorizing Provider: WILLARD HENRIQUEZ MD * Telephone Encounter - Jason Martinez LPN - 08/12/2024 6:53 PM EST Prescription Refill Information The patient has been identified by name and date of : Yes Caregiver verified no other encounters exist for this prescription request: Yes Caregiver confirmed with patient/requestor that no other refills are due, in the near future, with this provider at this time: Yes The last office visit in the department: 05/31/24 Does the patient have a future office visit with this provider/department: Yes, 11/29/24 Requested Prescriptions Pending Prescriptions Disp Refills montelukast (SINGULAIR) 10 mg tablet 90 tablet 1 Sig: Take 1 tablet by mouth daily at bedtime. metoprolol succinate ER (TOPROL XL) 25 mg 24 hr tablet 90 tablet 1 Sig: Take 1 tablet by mouth every morning. Jason Martinez LPN August 12, 2024 6:53 PM documented in this encounterThe [facility]12-[facility]24 Miscellaneous Notes* Telephone Encounter - Willard Henriquez MD - 08/12/2024 8:46 PM EST The following approved medication requests have been transmitted electronically. Requested Prescriptions Signed Prescriptions Disp Refills potassium chloride (K-TAB) 10 mEq tablet 120 tablet 11 Sig: Take 2 tablets by mouth two times a day. Authorizing Provider: WILLARD HENRIQUEZ MD * Telephone Encounter - Jason Martinez LPN - 08/12/2024 6:53 PM EST Prescription Refill Information The patient has been identified by name and date of : Yes Caregiver verified no other encounters exist for this prescription request: Yes Caregiver confirmed with patient/requestor that no other refills are due, in the near future, with this provider at this time: Yes The last office visit in the department: 05/31/24 Does the patient have a future office visit with this provider/department: Yes, 11/29/24 Requested Prescriptions Pending Prescriptions Disp Refills potassium chloride (K-TAB) 10 mEq tablet 120 tablet 11 Sig: Take 2 tablets by mouth two times a day. Jason Martinez LPN August 12, 2024 6:54 PM [facility] Tele[facility] encounter Note * Telephone Encounter - Jason Martinez LPN - 08/12/2024 6:53 PM EST Prescription Refill Information The patient has been identified by name and date of : Yes Caregiver verified no other encounters exist for this prescription request: Yes Caregiver confirmed with patient/requestor that no other refills are due, in the near future, with this provider at this time: Yes The last office visit in the department: 05/31/24 Does the patient have a future office visit with this provider/department: Yes, 11/29/24 Requested Prescriptions Pending Prescriptions Disp Refills potassium chloride (K-TAB) 10 mEq tablet 120 tablet 11 Sig: Take 2 tablets by mouth two times a day. Jason Martinez LPN August 12, 2024 6:54 PM [facility]12-09-2024 Telephone encounter Note* Telephone Encounter - Jason Martinez LPN - 08/12/2024 6:53 PM EST Prescription Refill Information The patient has been identified by name and date of : Yes Caregiver verified no other encounters exist for this prescription request: Yes Caregiver confirmed with patient/requestor that no other refills are due, in the near future, with this provider at this time: Yes The last office visit in the department: 05/31/24 Does the patient have a future office visit with this provider/department: Yes, 11/29/24 Requested Prescriptions Pending Prescriptions Disp Refills montelukast (SINGULAIR) 10 mg tablet 90 tablet 1 Sig: Take 1 tablet by mouth daily at bedtime. metoprolol succinate ER (TOPROL XL) 25 mg 24 hr tablet 90 tablet 1 Sig: Take 1 tablet by mouth every morning. Jason Martinez LPN August 12, 2024 6:53 PM [facility] NoteHNO ID: [id number] Author: KAY NEWMAN MA Service: ? 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 Type: Progress Notes Filed: 08/02/2024 15:27 Note Text: Scan on 07/31/2024 9:41 AM by ProviderMary PA-C: Chemistry Scan on 07/31/2024 8:37 AM by ProviderMray PA-C: Chemistry Kay Newman [facility]11-29-2024 History of Present illness Narrative* Kay Newman MA - 08/02/2024 3:26 PM EST Scan on 07/31/2024 9:41 AM by ProviderMary PA-C: Chemistry Scan on 07/31/2024 8:37 AM by Mary Dow PA-C: Chemistry Kay Newman MA documented in [facility]The [facility]11-[facility]24 NoteHNO ID: [id number] Author: LOVE FREEMAN LPN Service: ? Author Type: LICENSED NURSE Type: Progress Notes Filed: 07/08/2024 11:11 Note Text: Scan on 07/05/2024 6:10 PM by Mary Dow PA-C: Miscellaneous Lab [facility]11-04-2024 History of Present illness Narrative* Love Freeman LPN - 07/08/2024 11:11 AM EST Scan on 07/05/2024 6:10 PM by ProviderMary PA-C: Miscellaneous Lab documented in [facility]The [facility] Telephone encounter Note * Telephone Encounter - Love Freeman LPN - 07/03/2024 10:49 AM EDT Lab results from 05/31/24 have been faxed to Dr Marques as requested by pt. Love Freeman LPN [facility]10-30-2024 Miscellaneous Notes* Telephone Encounter - Love Freeman LPN - 07/03/2024 10:49 AM EDT Lab results from 05/31/24 have been faxed to Dr Marques as requested by ptKelle Freeman LPN * Telephone Encounter - Adeline Jeffers - 07/03/2024 10:20 AM EDT Patient is asking for recent labs results to be faxed to Endocrinology Dr Marques at [place]. documented in [facility]The [facility]10-[facility] Telephone encounter Note * Telephone Encounter - Adeline Jeffers - 07/03/2024 10:20 AM EDT Patient is asking for recent labs results to be faxed to Endocrinology Dr Marques at [place]. [facility]30[facility] NotePatient Outreach (INTMMN) DERRELL GERMAN ([id number]) 1955 F Date Time Provider Department 07/03/24 WILLARD HENRIQUEZ INTMMN During your visit today, we recorded the following information about you: Allergies As of Date: 07/03/2024 Noted Allergy Reaction AMLODIPINE 02/16/2023 7 - Swelling DIFLUCAN (FLUCONAZOLE) 07/06/2015 4 - Hives DIPHTH,PERTUS(ACELL),TETANUS 02/16/2023 4 - Hives ACTOS (PIOGLITAZONE HCL) 07/31/2007 14 - Other: See Comments Comments: Edema BLE AND OLGA HANDS BACTRIM (SULFAMETHOXAZOLE-TRIMETH*08/18/2005 4 - Hives Comments: HIVES BETADINE (POVIDONE-IODINE) 08/18/2005 10 - Anaphylaxis Comments: SEVERE ALLERGY TO IODINE AND BETADINE FISH 08/18/2005 10 - Anaphylaxis Comments: ALL FISH IODINE 08/18/2005 10 - Anaphylaxis Comments: IV contrast LIPITOR (ATORVASTATIN CALCIUM) 03/01/2010 2 - Rash 9 - Itching METFORMIN 03/14/2014 6 - Diarrhea 8 - GI Upset ORANGE 08/18/2005 10 - Anaphylaxis PENICILLINS 08/18/2005 16 - Unknown Comments: NOT SURE A CHILD SULFA (SULFONAMIDE ANTIBIOTICS) 12/02/2005 7 - Swelling Comments: SWELLING AND HIVES Date Reviewed: 05/31/2024 Reviewed by: Marcie Sharma MA - Fully Assessed Visit Diagnosis:Encounter for screening mammogram for breast cancer [Z12.31] Order(s):[facility] SCREENING W JAYNE [[id number]] Order #: [id number] FUTURE Prescriptions as of 07/08/2024 - levothyroxine (SYNTHROID) 175 mcg tablet Take 1 tablet by mouth once daily. M---- and none on Mon and Mon. Take on empty stomach. For Thyroid. Per endo: Dr. Marques - Cholecalciferol, Vitamin D3, 125 mcg (5,000 unit) cap Take 1 capsule by mouth every morning. Last dose 02/07/23 - insulin regular human, CONCENTRATED 500 UNIT/ML, (HUMULIN R) 500 unit/mL soln 150 units before breakfast 180 units before lunch 150 units before dinner 80-100 units at bedtime Depends on BS tests - gabapentin (NEURONTIN) 100 mg capsule 300 mg by mouth three times/day - rosuvastatin (CRESTOR) 20 mg tablet Take 1 tablet by mouth once daily. - tocilizumab (ACTEMRA) 162 mg/0.9 mL subcutaneous injection Inject 162 mg subcutaneously one time a week. - neomycin sulfate (NEOMYCIN 1%) Irrigate 500 mL as instructed one time only. - clopidogrel (PLAVIX) 75 mg tablet Take 1 tablet by mouth once daily. - enoxaparin (LOVENOX) 40 mg/0.4 mL 40 mg sub Q twice a day. - montelukast (SINGULAIR) 10 mg tablet Take 1 tablet by mouth daily at bedtime. - metoprolol succinate ER (TOPROL XL) 25 mg 24 hr tablet Take 1 tablet by mouth every morning. - famotidine (PEPCID) 20 mg tablet Take 1 tablet by mouth two times a day. - potassium chloride (K-TAB) 10 mEq tablet Take 2 tablets by mouth two times a day. - clobetasol (TEMOVATE) 0.05 % ointment Apply to affected area two times a day. - spironolactone (ALDACTONE) 25 mg tablet Take 1 tablet by mouth twice daily. - polyethylene glycol 3350 17 gram packet Take 1 Packet by mouth once daily. Dissolve dose in 4 - 8 ounces of liquid and take as directed. - acetaminophen (TYLENOL) 500 mg tablet Take 2 tablets by mouth every 6 hours as needed for pain. - bisacodyl EC (DULCOLAX) 5 mg EC tablet Take 2 tablets by mouth once daily as needed for constipation. - polyethylene glycol 3350 17 gram packet Take 1 Packet by mouth once daily as needed. Dissolve dose in 4 - 8 ounces of liquid and take as directed. - calcium carbonate (ANTACID CALCIUM ORAL) Take by mouth as needed. Last dose 02/09 - melatonin 10 mg cap Take 5-10 mg by mouth daily at bedtime. - BIPAP daily at bedtime. - dapagliflozin (FARXIGA) 10 mg tablet Take 10 mg by mouth daily with breakfast. Take 1 tablet daily - TRULICITY 3 mg/0.5 mL pen injector Inject 4.5 mg subcutaneously one time a week. Monday - furosemide (LASIX) 40 mg tablet Take 1 tablet by mouth twice daily. Per [facility] - EPINEPHrine (EPIPEN) 0.3 mg/0.3 mL auto-injector Use auto-injector x 1 for allergic reaction. - isosorbide mononitrate ER (IMDUR) 30 mg 24 hr tablet Take 60 mg by mouth every morning. - nitroglycerin sublingual (NITROQUICK) 0.4 mg SL tablet Dissolve 1 tablet under the tongue every 5 minutes as needed for Chest Pain. 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 Author Type: LICENSED NURSE Type: Progress Notes Filed: 06/13/2024 07:12 Note Text: Scan on 06/12/2024 6:10 PM by Provider, TRINA Hernandez: Miscellaneous Lab [facility]10-10-2024 History of Present illness Narrative* Love Freeman LPN - 06/13/2024 7:12 AM EDT Scan on 06/12/2024 6:10 PM by Provider, DAYSI HernandezC: Miscellaneous Lab documented in this encounterThe [facility]09-30-[facility]24 Telephone encounter Note * Telephone Encounter - Marcie Sharma MA - 06/03/2024 10:31 AM EDT Pt notified and verbalized understanding Marcie Sharma MA [facility]09-30-2024 Miscellaneous Notes* Telephone Encounter - Marcie Sharma MA - 06/03/2024 10:31 AM EDT Pt notified and verbalized understanding Marcie Sharma MA * Telephone Encounter - Padmini Anguiano APRN.ENROLLMENT REPRESENTATIVE - 06/03/2024 10:22 AM EDT Please let patient know her TSH is low. I want her to take 175mcg M-T-TH-F-S and nothing on Monday and Monday. documented in this encounterThe [facility]09-30-2024 Telephone encounter Note * Telephone Encounter - Padmini Anguiano APRN.CNP - 06/03/2024 10:22 AM EDT Please let patient know her TSH is low. I want her to take 175mcg M-T-TH-F-S and nothing on Monday and Monday. [facility]09-27-2024 NoteHNO ID: [id number] Author: PADMINI ANGUIANO APRN.CNP Service: ? Author Type: Nurse Practitioner Type: Progress Notes Filed: 05/31/2024 14:47 Note Text: Derrell German is a 68 year old female here for a Medicare wellness visit. 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 Current care team: Patient Care Team: Willard Henriquez MD as PCP - General (Family Medicine) Medical/Family history review Reviewed and updated problem list, medical/surgical/family/social history, medications, and allergies. Opioid use review Opioid Medications (last 90 days) No data to display Anxiety/Depression screening PHQ-2 Score: 0 (Lower risk for anxiety) Recommendation: no further intervention at this time Cognitive screening Cognitive screening reviewed and No further action needed (score 3-5). Functional Observation Was the patient's Timed Up AND Go test unsteady or >= 12 seconds? No Advance Care Planning Surrogate decision maker and/or advance care plan documented Measurements BP 138/79 Pulse 94 Resp 18 Wt (!) 138.3 kg (305 lb) SpO2 96% BMI 55.79 kg/m? Vision Screening: Follows with optometry/ophthalmology Assessment/Plan Medicare annual wellness visit, subsequent (Z00.00) - Counseled on healthy diet and regular exercise - Fall avoidance information provided - Personalized prevention plan provided - Discussed need for and benefit of weight loss. BMI 55.79 kg/(m2) Chief Complaint Patient presents with: Medicare Wellness Exam HPI Derrell German is a 68 year old female who presents here today for Above Complaints.. Patient presents for annual wellness Past medical history, appointments, medications, allergies reviewed. Previous Medical History PAST MEDICAL HISTORY Diagnosis Date Advance directive discussed with patient 04/06/2022 Discussed 04/2022 Allergic rhinitis 02/10/2011 ASHD (arteriosclerotic heart disease) 03/08/[address] [place] Asthma Dr[address] 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 History of left heart catheterization HEART CATH X2 STENTS X 3 NASH GARCIA Hyperlipidemia, mixed 06/30/2015 DR HUDSON, Hypertension, essential 06/30/2015 NASH GARCIA CARD- controlled with medication Joint pain PAIN MANAGMENT WILLARD CRUZ MELISSA Living will on file 04/06/2022 DPA: Ever () Lumbar radiculopathy 04/28/2020 R L4 radiculopathy 04/2020 Medicare annual wellness visit, initial 04/06/2022 Medicare part B: 11/03/2019 Last done: 04/06/2022 Mild intermittent asthma without complication 02/10/2011 DENIES PROBLEMS, DENIES INHALERS Morbid obesity (HCC) 01/10/2012 NATALIE (obstructive sleep apnea) 09/10/2019 On BiPAP and sees VENTURA Schaffer Osteoarthritis of both knees 02/02/2017 Other intervertebral disc displacement, lumbosacral region 02/23/2023 PONV (postoperative nausea and vomiting) Postherpetic neuralgia 03/14/2014 Right mid-trunk area. 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 Psoriasis 10/23/2017 Rash bilateral forearms Rosacea 04/19/2013 Shingles 2014 Spinal stenosis of lumbar region without neurogenic claudication 03/19/2021 DR SANDOVAL FOLLOWING Spondylolisthesis of lumbar region 02/23/2023 Stage 3a chronic kidney disease (HCC) 03/19/2021 GERALD CALHOUN AND WILLARD [facility] Uncontrolled type 2 diabetes mellitus with hyperglycemia (HCC) 12/24/2019 Seeing GERALD Marte Uses roller walker Vitamin D deficiency 03/19/2021 Wears glasses reading Previous Surgical History PAST SURGICAL HISTORY Procedure Laterality Date ANESTH, HYSTERECTOMY 2000 ANESTHESIA NOSE AND ACCESSORY SINUSES NOS 1995 CHOLECYSTECTOMY 1989 COLONOSCOPY FLX DX W/COLLJ SPEC WHEN PFRMD 04/18/2011 X3 HEART CATHETERIZATION 2002 HEART CATH X2 2001 AND 2019 STENTS X3 2019 PAST SURGICAL HISTORY OF L. knee PAST SURGICAL HISTORY OF kidney stones PAST SURGICAL HISTORY OF Right 2007 Knee PAST SURGICAL HISTORY OF NERVE STIMULATOR AND REMOVAL MELISSA ORTH REMV CATARACT EXTRACAP,INSERT LENS (more content not included)...[facility]09-27-20[facility] History of Present illness Narrative* Padmini Anguiano, OSCAR.ENROLLMENT REPRESENTATIVE - 05/31/2024 1:54 PM EDT Images from the original note were not included. Derrell German is a 68 year old female here for a Medicare wellness visit. 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 Current care team: Patient Care Team: Willard Henriquez MD as PCP - General (Family Medicine) Medical/Family history review Reviewed and updated problem list, medical/surgical/family/social history, medications, and allergies. Opioid use review Opioid Medications (last 90 days) No data to display Anxiety/Depression screening PHQ-2 Score: 0 (Lower risk for anxiety) Recommendation: no further intervention at this time Cognitive screening Cognitive screening reviewed and No further action needed (score 3-5). Functional Observation Was the patient's Timed Up & Go test unsteady or >= 12 seconds? No Advance Care Planning Surrogate decision maker and/or advance care plan documented Measurements BP 138/79 Pulse 94 Resp 18 Wt (!) 138.3 kg (305 lb) SpO2 96% BMI 55.79 kg/m Vision Screening: Follows with optometry/ophthalmology Assessment/Plan Medicare annual wellness visit, subsequent (Z00.00) - Counseled on healthy diet and regular exercise - Fall avoidance information provided - Personalized prevention plan provided - Discussed need for and benefit of weight loss. BMI 55.79 kg/(m^2) Chief Complaint Patient presents with: Medicare Wellness Exam HPI Derrell German is a 68 year old female who presents here today for Above Complaints.. Patient presents for annual wellness Past medical history, appointments, medications, allergies reviewed. Previous Medical History PAST MEDICAL HISTORY Diagnosis Date Advance directive discussed with patient 04/06/2022 Discussed 04/2022 Allergic rhinitis 02/10/2011 ASHD (arteriosclerotic heart disease) 03/08/[address] [place] Asthma Dr[address] 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 History of left heart catheterization HEART CATH X2 STENTS X 3 NASH AGRCIA Hyperlipidemia, mixed 06/30/2015 DR HUDSON, Hypertension, essential 06/30/2015 NASH GARCIA CARD- controlled with medication Joint pain PAIN MANAGMENT WILLARD CRUZ Living will on file 04/06/2022 DPA: Ever () Lumbar radiculopathy 04/28/2020 R L4 radiculopathy 04/2020 Medicare annual wellness visit, initial 04/06/2022 Medicare part B: 11/03/2019 Last done: 04/06/2022 Mild intermittent asthma without complication 02/10/2011 DENIES PROBLEMS, DENIES INHALERS Morbid obesity (HCC) 01/10/2012 NATALIE (obstructive sleep apnea) 09/10/2019 On BiPAP and sees VENTURA Shcaffer Osteoarthritis of both knees 02/02/2017 Other intervertebral disc displacement, lumbosacral region 02/23/2023 PONV (postoperative nausea and vomiting) Postherpetic neuralgia 03/14/2014 Right mid-trunk area. 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 Psoriasis 10/23/2017 Rash bilateral forearms Rosacea 04/19/2013 Shingles 2014 Spinal stenosis of lumbar region without neurogenic claudication 03/19/2021 DR SANDOVAL FOLLOWING Spondylolisthesis of lumbar region 02/23/2023 Stage 3a chronic kidney disease (HCC) 03/19/2021 GERALD CALHOUN AND WILLARD HARRINGTON Uncontrolled type 2 diabetes mellitus with hyperglycemia ([facility]) 12/24/2019 Seeing GERALD Marte Uses roller walker Vitamin D deficiency 03/19/2021 Wears glasses reading Previous Surgical History PAST SURGICAL HISTORY Procedure Laterality Date ANESTH, HYSTERECTOMY 2000 ANESTHESIA NOSE & ACCESSORY SINUSES NOS 1995 CHOLECYSTECTOMY 1989 COLONOSCOPY FLX DX W/COLLJ SPEC WHEN PFRMD 04/18/2011 X3 HEART CATHETERIZATION 2001 HEART CATH X2 2001 & 2019 STENTS X3 2019 PAST SURGICAL HISTORY OF L. knee PAST SURGICAL HISTORY OF kidney stones PAST SURGICAL HISTORY OF Right 2007 Knee PAST SURGICAL HISTORY OF NERVE STIMULATOR AND REMOVAL MELISSA ORTH REMV CATARACT EXTRACAP,INSERT LENS Bilateral Rt 08/2019, Lt 11/2019 STRESS TEST ADENOSINE 05/11/2013 THYROIDECTOMY TOTAL/COMPLETE 2000 TONSILLECTOMY HX 1963 Family History FAMILY HISTORY Problem Relation Age of Onset Diabetes Mother Thyroid Mother Diabetes Father Diabetes Paternal Aunt Patient Allergies ALLERGIES Allergen Reactions Amlodipine Swelling Diflucan [Fluconazo* Hives Diphth,Pertus(Acell* Hives Actos [Pioglitazone* Other: See Comments Edema BLE AND OLGA HANDS Bactrim [Sulfametho* Hives HIVES Betadine [Povidone-* Anaphylaxis SEVERE ALLERGY TO IODINE AND BETADINE Fish Anaphylaxis ALL FISH Iodine Anaphylaxis IV contrast Lipitor [Atorvastat* Rash, Itching Metformin Diarrhea, GI Upset [place] Anaphylaxis Penicillins Unknown NOT SURE A CHILD Sulfa (Sulfonamide * Swelling SWELLING AND HIVES Current Medications Current Outpatient Medications on File Prior to Visit Medication Sig gabapentin (NEURONTIN) 100 mg capsule 300 mg by mouth three times/day rosuvastatin (CRESTOR) 20 mg tablet Take 1 tablet by mouth once daily. tocilizumab (ACTEMRA) 162 mg/0.9 mL subcutaneous injection Inject 162 mg subcutaneously one time a week. neomycin sulfate (NEOMYCIN 1%) Irrigate 500 mL as instructed one time only. clopidogrel (PLAVIX) 75 mg tablet Take 1 tablet by mouth once daily. enoxaparin (LOVENOX) 40 mg/0.4 mL 40 mg sub Q twice a day. montelukast (SINGULAIR) 10 mg tablet Take 1 tablet by mouth daily at bedtime. metoprolol succinate ER (TOPROL XL) 25 mg 24 hr tablet Take 1 tablet by mouth every morning. levothyroxine (SYNTHROID) 175 mcg tablet Take 1 tablet by mouth once daily. Mon- Sat and none on Sun. Take on empty stomach. For Thyroid. Per endo: Dr. Marques famotidine (PEPCID) 20 mg tablet Take 1 tablet by mouth two times a day. potassium chloride (K-TAB) 10 mEq tablet Take 2 tablets by mouth two times a day. clobetasol (TEMOVATE) 0.05 % ointment Apply to affected area two times a day. spironolactone (ALDACTONE) 25 mg tablet Take 1 tablet by mouth twice daily. polyethylene glycol 3350 17 gram packet Take 1 Packet by mouth once daily. Dissolve dose in 4 - 8 ounces of liquid and take as directed. acetaminophen (TYLENOL) 500 mg tablet Take 2 tablets by mouth every 6 hours as needed for pain. bisacodyl EC (DULCOLAX) 5 mg EC tablet Take 2 tablets by mouth once daily as needed for constipation. polyethylene glycol 3350 17 gram packet Take 1 Packet by mouth once daily as needed. Dissolve dose in 4 - 8 ounces of liquid and take as directed. calcium carbonate (ANTACID CALCIUM ORAL) Take by mouth as needed. Last dose 8 melatonin 10 mg cap Take 5-10 mg by mouth daily at bedtime. BIPAP daily at bedtime. dapagliflozin (FARXIGA) 10 mg tablet Take 10 mg by mouth daily with breakfast. Take 1 tablet daily TRULICITY 3 mg/0.5 mL pen injector Inject 4.5 mg subcutaneously one time a week. Monday furosemide (LASIX) 40 mg tablet Take 1 tablet by mouth twice daily. Per [facility] (Patient taking differently: Take 60 mg by mouth twice daily. NASH GARCIA) EPINEPHrine (EPIPEN) 0.3 mg/0.3 mL auto-injector Use auto-injector x 1 for allergic reaction. (Patient taking differently: Inject 0.3 mg intramuscularly as needed. Use auto-injector x 1 for allergic reaction.) Cholecalciferol, Vitamin D3, 125 mcg (5,000 unit) cap Take 1 capsule by mouth once daily. (Patient taking differently: Take 5,000 Units by mouth every morning. Last dose 02/07/23) isosorbide mononitrate ER (IMDUR) 30 mg 24 hr tablet Take 60 mg by mouth every morning. insulin regular human, CONCENTRATED 500 UNIT/ML, (HUMULIN R) 500 unit/mL soln Inject 15 units ac brkt; 10 unts ac lunch; 15 units ac supper (Patient taking differently: Inject subcutaneously. 175 units before breakfast 175 units before lunch 185 units before dinner 80 units at bedtime Depends on BS tests) nitroglycerin sublingual (NITROQUICK) 0.4 mg SL tablet Dissolve 1 tablet under the tongue every 5 minutes as needed for Chest Pain. No current facility-administered medications on file prior to visit. Social History Social History Tobacco Use Smoking status: Never Passive exposure: Never Smokeless tobacco: Never Vaping Use Vaping status: Never Used Substance Use Topics Alcohol use: Never Drug use: Never Review of Symptoms REVIEW OF SYSTEMS SEE HPI EXAM: BP 138/79 Pulse 94 Resp 18 Wt (!) 138.3 kg (305 lb) SpO2 96% BMI 55.79 kg/m General Appearance: Well appearing, alert, in no acute distress, well-hydrated, well nourished.. Skin: Skin color, texture, turgor normal, no suspicious rashes or lesions. Lungs: Lungs clear to auscultation. No wheezing, rhonchi, rales.. Heart: RRR without murmur, gallop, or rubs. No ectopy. Abdomen: Normal abdominal exam, Abdomen soft, non-tender. Bowel sounds normal. No masses, organomegaly, Positive findings: obese. Musculoskeletal: Joint pain: Knee, Hips, and Back. Peripheral Pulses: Normal. Neurologic: Gait normal. Reflexes normal and symmetric. Sensation grossly intact.. Health Maintenance List Depression Screening Never done Anxiety Screening Never done RSV Vaccine(1 - Risk 60-74 years 1-dose series) Never done Shingrix Vaccine(1 of 2) due on 03/13/2015 Mammogram Screening due on 07/13/2022 Diabetic Foot Exam due on 02/22/2023 BP Controlled (<130/80) due on 04/06/2023 Urine Albumin:Creatinine Ratio due on 04/26/2023 Dilated Retinal Exam due on 08/09/2023 HbA1C due on 04/09/2024 Covid-19 Vaccine( - season) due on 05/05/2024 Influenza Vaccine(1) due on 05/05/2024 LDL Cholesterol due on 05/28/2025 Serum Creatinine due on 05/28/2025 Hemoglobin/Hematocrit due on 05/28/2025 Annual PCP Team Chronic Disease Visit due on 05/31/2025 DTaP,Tdap,Td Vaccine(5 - Td or Tdap) due on 06/30/2025 Colorectal Cancer Screening due on 05/24/2027 Bone Density Screening Completed Advance Directive Discussion Completed Hepatitis C Screening Completed Pneumococcal Vaccine: 65+ Completed Spirometry Discontinued Cervical Cancer Screening Discontinued Data reviewed Latest Ref Rng 05/28/2024 WBC 3.70 - 11.00 k/uL 12.44 (H) RBC 3.90 - 5.20 m/uL 4.36 Hemoglobin 11.5 - 15.5 g/dL 11.9 Hematocrit 36.0 - 46.0 % 39.8 MCV 80.0 - 100.0 fL 91.3 MCH 26.0 - 34.0 pg 27.3 MCHC 30.5 - 36.0 g/dL 29.9 (L) RDW-CV 11.5 - 15.0 % 18.1 (H) Platelet Count 150 - 400 k/uL 272 MPV 9.0 - 12.7 fL 8.8 (L) Neut% % 74.3 Abs Neut (ANC) 1.45 - 7.50 k/uL 9.25 (H) Lymph% % 14.5 Abs Lymph 1.00 - 4.00 k/uL 1.80 [place]% % 7.6 Abs [place] <0.87 k/uL 0.94 (H) Eosin% % 1.1 Abs Eosin <0.46 k/uL 0.14 Baso% % 0.7 Abs Baso <0.11 k/uL 0.09 Immature Gran % % 1.8 IMMATURE GRANS (ABS) <0.10 k/uL 0.22 (H) NRBC /100 WBC 0.2 Absolute nRBC <0.01 k/uL 0.03 (H) DTYPE Auto Color Yellow Yellow Clarity Clear Clear Glucose, Urine Negative 2+ ! Bilirubin, Urine Negative Negative Ketones, Urine Negative Negative Specific [place], Ur 1.005 - 1.030 1.011 Hemoglobin/Blood,Ur Negative Negative pH, Urine <8.5 6.0 Protein, Urine Negative Negative Urobilinogen 0.2-1.0 EU/dL 0.2 EU/dL Nitrites Negative Negative Leukest Negative Negative WBC, Urine 0-5 /HPF 0-5 /HPF RBC, Urine 0-2 /HPF 0-2 /HPF Bacteria Negative /HPF Negative Epithelial Cells /HPF None Seen Hyaline Cast 0 /LPF 0 /LPF Protein, Total 6.3 - 8.0 g/dL 6.4 Albumin 3.9 - 4.9 g/dL 3.9 Calcium 8.5 - 10.2 mg/dL 9.7 Bilirubin, Total 0.2 - 1.3 mg/dL 0.5 Alkaline Phosphatase 34 - 123 U/L 64 AST 13 - 35 U/L 17 ALT 7 - 38 U/L 23 Glucose 74 - 99 mg/dL 119 (H) BUN 7 - 21 mg/dL 19 Creatinine 0.58 - 0.96 mg/dL 1.15 (H) Sodium 136 - 144 mmol/L 144 Potassium 3.7 - 5.1 mmol/L 4.1 Chloride 98 - 107 mmol/L 102 CO2 22 - 30 mmol/L 26 Anion Gap 8 - 15 mmol/L 16 (H) eGFR >=60 mL/min/1.73m 52 (L) Total Cholesterol, Nonfasting <200 mg/dL 143 Triglycerides, Nonfasting <150 mg/dL 147 HDL Cholesterol, Nonfasting >39 mg/dL 63 LDL Cholesterol, Nonfasting <100 mg/dL 51 Non HDL Cholesterol, Nonfasting <130 mg/dL 80 VLDL Cholesterol, Nonfasting <30 mg/dL 29 Total Chol/HDL Ratio, Nonfasting <5.10 mg/dL 2.27 LDL/HDL Ratio, Nonfasting <2.54 mg/dL 0.81 Vitamin D 25 Hydroxy 31.0 - 80.0 ng/mL 39.3 ASSESSMENT/PLAN: 1. Postsurgical hypothyroidism - ICD9: 244.0, ICD10: E89.0 (primary diagnosis) - Instructed patient on importance of taking on an empty stomach either first thing in the morning or at bedtime. - check TSH today - THYROID STIMULATING HORMONE 2. Screening for depression - ICD9: V79.0, ICD10: Z13.31 - DEPRESSION SCREENING 3. Encounter for screening examination for other mental health and behavioral disorders - ICD9: V79.8, ICD10: Z13.39 - ANXIETY SCREENING 4. Uncontrolled type 2 diabetes mellitus with hyperglycemia (HCC) - ICD9: 250.02, ICD10: E11.65 - Controlled - Continue current medications - Counseled on healthy diet and regular exercise - Discussed need for and benefit of weight loss. BMI 55.79 kg/(m^2) - INSULIN REGULAR HUMAN U-500(CONCENTRATE) 500 UNIT/ML SUBCUTANEOUS SOLN - ALBUMIN/CREATININE RATIO, URINE 5. Lumbar radiculopathy - ICD9: 724.4, ICD10: M54.16 Chronic low back pain 6. Hypertension, essential - ICD9: 401.9, ICD10: I10 - Controlled - Continue current medications - Recommend home blood pressure monitoring, to bring results to next visit - Encouraged sodium restriction, DASH or Mediterranean diet - Recommend regular aerobic exercise 7. Hyperlipidemia, mixed - ICD9: 272.2, ICD10: E78.2 - Controlled - Continue current medications - Counseled on healthy diet and regular exercise - Discussed need for and benefit of weight loss. BMI 55.79 kg/(m^2) 8. ASHD (arteriosclerotic heart disease) - ICD9: 414.00, ICD10: I25.10 -Follows with cardiology 9. Stage 3a chronic kidney disease (HCC) - ICD9: 585.3, ICD10: N18.31 - eGFR: 52 Stable - Counseled on avoiding NSAIDs, adequate hydration - Counseled on low sodium diet 10. Type 2 diabetes mellitus with stage 3a chronic kidney disease, with long- term current use of insulin (HCC) - ICD9: 250.40, 585.3, V58.67, ICD10: E11.22, N18.31, Z79.4 - Controlled - Continue current medications - Counseled on healthy diet and regular exercise - Discussed need for and benefit of weight loss. BMI 55.79 kg/(m^2) - eGFR: 52 Stable - Counseled on avoiding NSAIDs, adequate hydration - Counseled on low sodium diet 11. Gastroesophageal reflux disease, unspecified whether esophagitis present - ICD9: 530.81, ICD10:K21.9 - Continue treatment with Pepcid 20 mg QD 12. NATALIE (obstructive sleep apnea) - ICD9: 327.23, ICD10: G47.33 -Wears CPAP nightly 13. Mild intermittent asthma without complication - ICD9: 493.90, ICD10: J45.20 - Mild intermittent asthma stable - Continue current medications - Avoidance of triggers recommended 14. Advance directive discussed with patient - ICD9: V65.49, ICD10: Z71.89 -Reviewed 15. Encounter for Medicare annual wellness exam - ICD9: V70.0, ICD10: Z00.00 - Counseled on healthy diet and regular exercise - Discussed need and benefit for weight loss. BMI 55.79 kg/(m^2) 16. Morbid obesity due to excess calories (HCC) - ICD9: 278.01, ICD10: E66.01 Weight decreasing 17. Vitamin D deficiency - ICD9: 268.9, ICD10: E55.9 -Stable 18. DDD (degenerative disc disease), lumbar - ICD9: 722.52, ICD10: M51.36 Chronic low back pain 19. Osteoarthritis of both knees, unspecified osteoarthritis type - ICD9: 715.96, ICD10: M17.0 -Stable Padmini Anguiano APRN.CNP documented in [facility]The [facility] Instructions* Patient Instructions* Padmini Anguiano APRN.CNP - 05/31/2024 1:54 PM EDT Screening schedule The following prevention plan is recommended: Depression Screening Never done Anxiety Screening Never done RSV Vaccine(1 - Risk 60-74 years 1-dose series) Never done Shingrix Vaccine(1 of 2) due on 03/13/2015 Mammogram Screening due on 07/13/2022 Diabetic Foot Exam due on 02/22/2023 BP Controlled (<130/80) due on 04/06/2023 Urine Albumin:Creatinine Ratio due on 04/26/2023 Dilated Retinal Exam due on 08/09/2023 HbA1C due on 04/09/2024 Covid-19 Vaccine( season) due on 05/05/2024 Influenza Vaccine(1) due on 05/05/2024 WHAT YOU CAN DO TO PREVENT FALLS Many falls can be prevented. By making some changes, you can lower your chances of falling. Four things YOU can do to prevent falls for you* and your caregiver 1. Begin a regular exercise program Exercise is one of the most important ways to lower your chances of falling. It makes you stronger and helps you feel better. Exercises that improve balance and coordination (like Joao Chi) are the most helpful. Lack of exercise leads to weakness and increases your chances of falling. Ask your doctor or health care provider about the best type of exercise program for you. 2. Have your health care provider review your medicines Have your doctor or pharmacist review all the medicines you take, even [id number] medicines. As you get older, the way medicines work in your body can change. Some medicines, or combinations of medicines, can make you sleepy or dizzy andcan cause you to fall. 3. Have your vision checked Have your eyes checked by an eye doctor at least once a year. You may be wearing the wrong glasses or have a condition like glaucoma or cataracts that limits your vision. Poor vision can increase your chances of falling. 4. Make your home safer About half of all falls happen at home. To make your home safer: Remove things you can trip over (like papers, books, clothes, and shoes) from stairs and places where you walk. Remove small throw rugs or use double-sided tape to keep the rugs from slipping. Keep items you use often in cabinets you can reach easily without using a step stool. Have grab bars put in next to your toilet and in the tub or shower. Use non-slip mats in the bathtub and on shower floors. Improve the lighting in your home. As you get older, you need brighter lights to see well. Hang light-weight curtains or shades to reduce glare. Have handrails and lights put in on all staircases. Wear shoes both inside and outside the house. Avoid going barefoot or wearing slippers. For more information, contact: Centers for Disease Control and Prevention www.cdc.gov/injury * This information may not apply if you have certain medical conditions. documented in this encounterThe [facility]09-[facility] Telephone encounter Note * Telephone Encounter - Chantell Carmona MA - 05/20/2024 11:18 AM EDT Crestor requested in other refill request. Chantell Carmona MA [facility] Miscellaneous Notes* Telephone Encounter - Chantell Carmona MA - 05/20/2024 11:18 AM EDT Crestor requested in other refill request. Chantell Carmona MA documented in this encounterThe [facility]09-16-[facility] Telephone encounter Note * Telephone Encounter - Chantell Carmona MA - 05/20/2024 11:17 AM EDT Prescription Refill Information The patient has been identified by name and date of : Yes Caregiver verified no other encounters exist for this prescription request: Yes Caregiver confirmed with patient/requestor that no other refills are due, in the near future, with this provider at this time: No The last office visit in the department: 05/09/24 Does the patient have a future office visit with this provider/department: Yes Requested Prescriptions Pending Prescriptions Disp Refills gabapentin (NEURONTIN) 100 mg capsule 270 capsule 1 Si mg by mouth three times/day rosuvastatin (CRESTOR) 20 mg tablet 90 tablet 1 Sig: Take 1 tablet by mouth once daily. Chantell Carmona MA May 20, 2024 11:17 AM [facility]-16[facility] Miscellaneous Notes* Telephone Encounter - Chantell Carmona MA - 05/20/2024 11:17 AM EDT Prescription Refill Information The patient has been identified by name and date of : Yes Caregiver verified no other encounters exist for this prescription request: Yes Caregiver confirmed with patient/requestor that no other refills are due, in the near future, with this provider at this time: No The last office visit in the department: 05/09/24 Does the patient have a future office visit with this provider/department: Yes Requested Prescriptions Pending Prescriptions Disp Refills gabapentin (NEURONTIN) 100 mg capsule 270 capsule 1 Si mg by mouth three times/day rosuvastatin (CRESTOR) 20 mg tablet 90 tablet 1 Sig: Take 1 tablet by mouth once daily. Chantell Carmona MA May 20, 2024 11:17 AM documented in this encounterThe [facility]09-13-2024 NoteHNO ID: [id number] Author: LOVE FREEMAN LPN Service: ? Author Type: LICENSED NURSE Type: Progress Notes Filed: 05/17/2024 08:46 Note Text: Scan on 05/17/2024 7:07 AM by Mary Dow PA-C: [facility] History of Present illness Narrative* Love Freeman LPN - 05/17/2024 8:46 AM EDT Scan on 05/17/2024 7:07 AM by Mary Dow PA-C: Consultation - Emergency Medicine documented in this encounterThe [facility]09-06-2024 NoteHNO ID: [id number] Author: LOVE FREEMAN LPN Service: ? Author Type: LICENSED NURSE Type: Progress Notes Filed: 05/10/2024 09:04 Note Text: Scan on 05/09/2024 12:15 PM by Mary Dow PA-C: [facility] History of Present illness Narrative* Love Freeman LPN - 05/10/2024 9:03 AM EDT Scan on 05/09/2024 12:15 PM by Provider, External, TRINA: Consultation - Rheumatology documented in this encounterThe [facility]09-05-2024 NoteHNO ID: [id number] Author: PADMINI ANGUIANO APRN.ENROLLMENT REPRESENTATIVE Service: ? Author Type: Nurse Practitioner Type: Progress Notes Filed: 05/09/2024 13:51 Note Text: Chief Complaint Patient presents with: Edema: Left leg X 1 day HPI Derrell German is a 68 year old female who presents here today for Above Complaints.. Patient presents for concern for cellulitis at the advice of rheumatology. Patient reports her left lower leg looked normal upon waking but now is very red and quickly getting more red and has become painful. Patient also reports large amount of bruising to abdomen just from wearing seat belt. No injury. Past medical history, appointments, medications, allergies reviewed. Previous Medical History PAST MEDICAL HISTORY 04/06/2022: Advance directive discussed with patient Comment: Discussed 04/202202/10/2011: Allergic rhinitis 03/08/2019: ASHD (arteriosclerotic heart disease) Comment: Seeing Dr. Hudson No date: Asthma Comment: Dr. 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 No date: History of left heart catheterization Comment: HEART CATH X2 STENTS X 3 NASH GARCIA 06/30/2015: Hyperlipidemia, mixed Comment: DR HUDSON 06/30/2015: Hypertension, essential Comment: NASH GARCIA CARD- controlled with medication No date: Joint pain Comment: PAIN MANAGMENT WILLARD CRUZ 04/06/2022: Living will on file Comment: DPA: Ever () 04/28/2020: Lumbar radiculopathy Comment: R L4 radiculopathy 04/202004/06/2022: Medicare annual wellness visit, initial Comment: Medicare part B: 11/03/2019 Last done: 04/06/2022 02/10/2011: Mild intermittent asthma without complication Comment: DENIES PROBLEMS, DENIES INHALERS 01/10/2012: Morbid obesity (HCC) 09/10/2019: NATALIE (obstructive sleep apnea) Comment: On BiPAP and sees VENTURA Schaffer 02/02/2017: Osteoarthritis of both knees 02/23/2023: Other intervertebral disc displacement, lumbosacral region No date: PONV (postoperative nausea and vomiting) 03/14/2014: Postherpetic neuralgia Comment: Right mid-trunk area. No date: Postsurgical hypothyroidism Comment: followed by Dr. Marques 10/23/2017: Psoriasis No date: Rash Comment: bilateral forearms 04/19/2013: Rosacea No date: Shingles Comment: 201303/19/2021: Spinal stenosis of lumbar region without neurogenic claudication Comment: DR SANDOVAL FOLLOWING 02/23/2023: Spondylolisthesis of lumbar region 03/19/2021: Stage 3a chronic kidney disease (HCC) Comment: GERALD CALHOUN AND WILLARD HARRINGTON 12/24/2019: Uncontrolled type 2 diabetes mellitus with hyperglycemia ([facility]) Comment: Seeing GERALD Marte No date: Uses roller walker 03/19/2021: Vitamin D deficiency No date: Wears glasses Comment: reading Previous Surgical History PAST SURGICAL HISTORY 2000: ANESTH, HYSTERECTOMY 1996: ANESTHESIA NOSE AND ACCESSORY SINUSES NOS 1990: CHOLECYSTECTOMY 04/18/2011: COLONOSCOPY FLX DX W/COLLJ SPEC WHEN PFRMD Comment: X3 2001: HEART CATHETERIZATION Comment: HEART CATH X2 2001 AND 2019 STENTS X3 2019 No date: PAST SURGICAL HISTORY OF Comment: L. knee No date: PAST SURGICAL HISTORY OF Comment: kidney stones 2007: PAST SURGICAL HISTORY OF; Right Comment: Knee No date: PAST SURGICAL HISTORY OF Comment: NERVE STIMULATOR AND REMOVAL MELISSA ORTH No date: REMV CATARACT EXTRACAP,INSERT LENS; Bilateral Comment: Rt 08/2019, Lt 11/201905/11/2013: STRESS TEST ADENOSINE 2001: THYROIDECTOMY TOTAL/COMPLETE 1963: TONSILLECTOMY HX Family History FAMILY HISTORY Problem Relation Age of Onset Diabetes Mother Thyroid Mother Diabetes Father Diabetes Paternal Aunt Patient Allergies ALLERGIES Allergen Reactions Amlodipine Swelling Diflucan [Fluconazo* Hives Diphth,Pertus(Acell* Hives Actos [Pioglitazone* Other: See Comments Edema BLE AND OLGA HANDS Bactrim [Sulfametho* Hives HIVES Betadine [Povidone-* Anaphylaxis SEVERE ALLERGY TO IODINE AND BETADINE Fish Anaphylaxis ALL FISH Iodine Anaphylaxis IV contrast Lipitor [Atorvastat* Rash, Itching Metformin Diarrhea, GI Upset [place] Anaphylaxis Penicillins Unknown NOT SURE A CHILD Sulfa (Sulfonamide * Swelling SWELLING AND HIVES Current Medications Current Outpatient Medications on File Prior to Visit Medication Sig tocilizumab (ACTEMRA) 162 mg/0.9 mL subcutaneous injection Inject 162 mg subcutaneously one time a week. neomycin sulfate (NEOMYCIN 1%) Irrigate 500 mL as instructed one time only. clopidogrel (PLAVIX) 75 mg tablet Take 1 tablet by mouth once daily. enoxapar (more content not included)...[facility]09-[facility] History of Present illness Narrative* Padmini Anguiano, OSCAR.ENROLLMENT REPRESENTATIVE - 05/09/2024 1:46 PM EDT Chief Complaint Patient presents with: Edema: Left leg X 1 day HPI Derrell Germna is a 68 year old female who presents here today for Above Complaints.. Patient presents for concern for cellulitis at the advice of rheumatology. Patient reports her leftlower leg looked normal upon waking but now is very red and quickly getting more red and has becomepainful. Patient also reports large amount of bruising to abdomen just from wearing seat belt. No injury. Past medical history, appointments, medications, allergies reviewed. Previous Medical History PAST MEDICAL HISTORY 04/06/2022: Advance directive discussed with patient Comment: Discussed 04/202202/10/2011: Allergic rhinitis 03/08/2019: ASHD (arteriosclerotic heart disease) Comment: Seeing Dr. Hudson No date: Asthma Comment: Dr. 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 No date: History of left heart catheterization Comment: HEART CATH X2 STENTS X 3 NASH GARCIA 06/30/2015: Hyperlipidemia, mixed Comment: DR HUDSON 06/30/2015: Hypertension, essential Comment: NASH GARCIA CARD- controlled with medication No date: Joint pain Comment: PAIN MANAGMENT WILLARD CRUZ 04/06/2022: Living will on file Comment: DPA: Ever () 04/28/2020: Lumbar radiculopathy Comment: R L4 radiculopathy 04/202004/06/2022: Medicare annual wellness visit, initial Comment: Medicare part B: 11/03/2019 Last done: 04/06/2022 02/10/2011: Mild intermittent asthma without complication Comment: DENIES PROBLEMS, DENIES INHALERS 01/10/2012: Morbid obesity (HCC) 09/10/2019: NATALIE (obstructive sleep apnea) Comment: On BiPAP and sees VENTURA Schaffer 02/02/2017: Osteoarthritis of both knees 02/23/2023: Other intervertebral disc displacement, lumbosacral region No date: PONV (postoperative nausea and vomiting) 03/14/2014: Postherpetic neuralgia Comment: Right mid-trunk area. No date: Postsurgical hypothyroidism Comment: followed by Dr. Marques 10/23/2017: Psoriasis No date: Rash Comment: bilateral forearms 04/19/2013: Rosacea No date: Shingles Comment: 201303/19/2021: Spinal stenosis of lumbar region without neurogenic claudication Comment: DR SANDOVAL FOLLOWING 02/23/2023: Spondylolisthesis of lumbar region 03/19/2021: Stage 3a chronic kidney disease (HCC) Comment: GERALD CALHOUN AND WILLARD HARRINGTON 12/24/2019: Uncontrolled type 2 diabetes mellitus with hyperglycemia (HCC) Comment: Seeing GERALD Marte No date: Uses roller walker 03/19/2021: Vitamin D deficiency No date: Wears glasses Comment: reading Previous Surgical History PAST SURGICAL HISTORY 2001: ANESTH, HYSTERECTOMY 1996: ANESTHESIA NOSE & ACCESSORY SINUSES NOS 1990: CHOLECYSTECTOMY 04/18/2011: COLONOSCOPY FLX DX W/COLLJ SPEC WHEN PFRMD Comment: X3 2002: HEART CATHETERIZATION Comment: HEART CATH X2 2001 & 2019 STENTS X3 2019 No date: PAST SURGICAL HISTORY OF Comment: L. knee No date: PAST SURGICAL HISTORY OF Comment: kidney stones 2007: PAST SURGICAL HISTORY OF; Right Comment: Knee No date: PAST SURGICAL HISTORY OF Comment: NERVE STIMULATOR AND REMOVAL MELISSA ORTH No date: REMV CATARACT EXTRACAP,INSERT LENS; Bilateral Comment: Rt 08/2019, Lt 11/201905/11/2013: STRESS TEST ADENOSINE 2001: THYROIDECTOMY TOTAL/COMPLETE 1963: TONSILLECTOMY HX Family History FAMILY HISTORY Problem Relation Age of Onset Diabetes Mother Thyroid Mother Diabetes Father Diabetes Paternal Aunt Patient Allergies ALLERGIES Allergen Reactions Amlodipine Swelling Diflucan [Fluconazo* Hives Diphth,Pertus(Acell* Hives Actos [Pioglitazone* Other: See Comments Edema BLE AND OLGA HANDS Bactrim [Sulfametho* Hives HIVES Betadine [Povidone-* Anaphylaxis SEVERE ALLERGY TO IODINE AND BETADINE Fish Anaphylaxis ALL FISH Iodine Anaphylaxis IV contrast Lipitor [Atorvastat* Rash, Itching Metformin Diarrhea, GI Upset [place] Anaphylaxis Penicillins Unknown NOT SURE A CHILD Sulfa (Sulfonamide * Swelling SWELLING AND HIVES Current Medications Current Outpatient Medications on File Prior to Visit Medication Sig tocilizumab (ACTEMRA) 162 mg/0.9 mL subcutaneous injection Inject 162 mg subcutaneously one time a week. neomycin sulfate (NEOMYCIN 1%) Irrigate 500 mL as instructed one time only. clopidogrel (PLAVIX) 75 mg tablet Take 1 tablet by mouth once daily. enoxaparin (LOVENOX) 40 mg/0.4 mL 40 mg sub Q twice a day. montelukast (SINGULAIR) 10 mg tablet Take 1 tablet by mouth daily at bedtime. metoprolol succinate ER (TOPROL XL) 25 mg 24 hr tablet Take 1 tablet by mouth every morning. levothyroxine (SYNTHROID) 175 mcg tablet Take 1 tablet by mouth once daily. Mon- Sat and none on Sun. Take on empty stomach. For Thyroid. Per endo: Dr. Marques gabapentin (NEURONTIN) 100 mg capsule 300 mg by mouth three times/day famotidine (PEPCID) 20 mg tablet Take 1 tablet by mouth two times a day. rosuvastatin (CRESTOR) 20 mg tablet Take 1 tablet by mouth once daily. potassium chloride (K-TAB) 10 mEq tablet Take 2 tablets by mouth two times a day. clobetasol (TEMOVATE) 0.05 % ointment Apply to affected area two times a day. spironolactone (ALDACTONE) 25 mg tablet Take 1 tablet by mouth twice daily. polyethylene glycol 3350 17 gram packet Take 1 Packet by mouth once daily. Dissolve dose in 4 - 8 ounces of liquid and take as directed. acetaminophen (TYLENOL) 500 mg tablet Take 2 tablets by mouth every 6 hours as needed for pain. bisacodyl EC (DULCOLAX) 5 mg EC tablet Take 2 tablets by mouth once daily as needed for constipation. polyethylene glycol 3350 17 gram packet Take 1 Packet by mouth once daily as needed. Dissolve dose in 4 - 8 ounces of liquid and take as directed. calcium carbonate (ANTACID CALCIUM ORAL) Take by mouth as needed. Last dose 02/09 melatonin 10 mg cap Take 5-10 mg by mouth daily at bedtime. BIPAP daily at bedtime. dapagliflozin (FARXIGA) 10 mg tablet Take 10 mg by mouth daily with breakfast. Take 1 tablet daily TRULICITY 3 mg/0.5 mL pen injector Inject 4.5 mg subcutaneously one time a week. Monday furosemide (LASIX) 40 mg tablet Take 1 tablet by mouth twice daily. Per [place] [facility] (Patient taking differently: Take 60 mg by mouth twice daily. NASH GARCIA) EPINEPHrine (EPIPEN) 0.3 mg/0.3 mL auto-injector Use auto-injector x 1 for allergic reaction. (Patient taking differently: Inject 0.3 mg intramuscularly as needed. Use auto-injector x 1 for allergic reaction.) Cholecalciferol, Vitamin D3, 125 mcg (5,000 unit) cap Take 1 capsule by mouth once daily. (Patient taking differently: Take 5,000 Units by mouth every morning. Last dose 02/07/23) isosorbide mononitrate ER (IMDUR) 30 mg 24 hr tablet Take 60 mg by mouth every morning. insulin regular human, CONCENTRATED 500 UNIT/ML, (HUMULIN R) 500 unit/mL soln Inject 15 units ac brkt; 10 unts ac lunch; 15 units ac supper (Patient taking differently: Inject subcutaneously. 175 units before breakfast 175 units before lunch 185 units before dinner 80 units at bedtime Depends on BS tests) nitroglycerin sublingual (NITROQUICK) 0.4 mg SL tablet Dissolve 1 tablet under the tongue every 5 minutes as needed for Chest Pain. No current facility-administered medications on file prior to visit. Social History Social History Tobacco Use Smoking status: Never Passive exposure: Never Smokeless tobacco: Never Vaping Use Vaping status: Never Used Substance Use Topics Alcohol use: Never Drug use: Never Review of Symptoms REVIEW OF SYSTEMS SEE HPI EXAM: BP 118/75 Pulse 102 Temp 36.8 C (98.2 F) Resp 14 Wt (!) 136.5 kg (301 lb) BMI 55.05 kg/m General Appearance: Well appearing, alert, in no acute distress, well-hydrated, well nourished.. Skin: Reddish purple petechial rash to entire lower left leg. Tender with palpation and with weightbearing. . Extremities: Edema: Bilateral lower extremity edema left worse than right. Health Maintenance List Depression Screening Never done Anxiety Screening Never done RSV Vaccine(1 - 1-dose 60+ series) Never done Shingrix Vaccine(2 of 3) due on 03/13/2015 Mammogram Screening due on 07/13/2022 Diabetic Foot Exam due on 02/22/2023 BP Controlled (<130/80) due on 04/06/2023 Urine Albumin:Creatinine Ratio due on 04/26/2023 Dilated Retinal Exam due on 08/09/2023 HbA1C due on 04/09/2024 Serum Creatinine due on 04/18/2024 Covid-19 Vaccine(2022- season) due on 05/05/2024 LDL Cholesterol due on 04/18/2024 Influenza Vaccine(1) due on 05/05/2024 Annual PCP Team Chronic Disease Visit due on 11/22/2024 DTaP,Tdap,Td Vaccine(5 - Td or Tdap) due on 06/30/2025 Colorectal Cancer Screening due on 05/24/2027 Bone Density Screening Completed Advance Directive Discussion Completed Hepatitis C Screening Completed Pneumococcal Vaccine: 65+ Completed Spirometry Discontinued ASSESSMENT/PLAN: 1. Petechial rash - ICD9: 782.7, ICD10: R23.3 - Due to sudden onset and quick spread as well as pain increasing in the left lower extremity patient advised to proceed to ER. Padmini Anguiano APRN.ENROLLMENT REPRESENTATIVE documented in this encounterThe [facility]09-[facility]24 NoteHNO ID: [id number] Author: LOVE FREEMAN LPN Service: ? Author Type: LICENSED NURSE Type: Progress Notes Filed: 05/08/2024 08:25 Note Text: Scan on 05/07/2024 1:12 PM by Mary Dow PA-C: [facility] History of Present illness Narrative* Love Freeman LPN - 05/08/2024 8:24 AM EDT Scan on 05/07/2024 1:12 PM by Mary Dow PA-C: Miscellaneous Lab documented in this encounterThe [facility]08-16-2024 NoteHNO ID: [id number] Author: LOVE FREEMAN LPN Service: ? Author Type: LICENSED NURSE Type: Progress Notes Filed: 04/19/2024 13:35 Note Text: Scan on 04/18/2024 3:39 PM by Mayr Dow PA-C: Miscellaneous Lab [facility] History of Present illness Narrative* Love Freeman LPN - 04/19/2024 1:34 PM EDT Scan on 04/18/2024 3:39 PM by Mary Dow PA-C: Miscellaneous Lab documented in this encounterThe [facility]08-06-2024 NoteHNO ID: [id number] Author: LOVE FREEMAN LPN Service: ? Author Type: LICENSED NURSE Type: Progress Notes Filed: 04/09/2024 07:02 Note Text: Scan on 04/08/2024 4:11 PM by Mary Dow PA-C: Miscellaneous Lab Scan on 04/08/2024 4:37 PM by Mary Dow PA-C: [facility] History of Present illness Narrative* Love Freeman LPN - 04/09/2024 7:01 AM EDT Scan on 04/08/2024 4:11 PM by Mary Dow PA-C: Miscellaneous Lab Scan on 04/08/2024 4:37 PM by Mary Dow PA-C: Miscellaneous Lab documented in this encounterThe [facility]08-[facility]-2024 NoteHNO ID: [id number] Author: KAY NEWMAN MA Service: ? 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 Type: Progress Notes Filed: 04/08/2024 15:11 Note Text: Scan on 04/08/2024 1:22 PM by Mary Dow PA-C: Consultation - PT/OT/Speech Kay Newman [facility]08-05-2024 History of Present illness Narrative* Kay Newman MA - 04/08/2024 3:11 PM EDT Scan on 04/08/2024 1:22 PM by Mary Dow PA-C: Consultation - PT/OT/Speech Kay Newman MA documented in this encounterThe [facility]07-25-2024 NoteHNO ID: [id number] Author: LOVE FREEMAN LPN Service: ? Author Type: LICENSED NURSE Type: Progress Notes Filed: 03/28/2024 13:25 Note Text: Scan on 03/27/2024 3:39 PM by Mary Dow PA-C: Miscellaneous Lab Scan on 03/27/2024 4:11 PM by Mary Dow PA-C: Miscellaneous Lab [facility] History of Present illness Narrative* Love Freeman LPN - 03/28/2024 1:25 PM EDT Scan on 03/27/2024 3:39 PM by ProviderMary PA-C: Miscellaneous Lab Scan on 03/27/2024 4:11 PM by Provider, TRINA Hernandez: Miscellaneous Lab documented in this encounterThe [facility]07-25-2024 History of Present illness Narrative* Phillip Whelan MD - 03/28/2024 1:20 PM EDT Images from the original note were not included. NEURO-OPHTHALMOLOGY CLINIC VISIT History of Present Illness: IVAN German is a 68 y.o. woman with POH of Papilledema OU who is present today for a neuro-ophthalmic evaluation, referred by Dee Euceda MD. Patient complains of sudden onset central vision loss, OD towards on February 01. Left eye seems to bestable. Patient has been being treated with steroids since February 03. She had a TABx and it was negative. Patient denies headaches, pentecostal pain, scalp tenderness, jaw pain/cramping, or pain when chewing. She does note some joint pain and cramping in her hands and fingers. Diabetes: Last A1C: 6.8 03/25/24 FBS: 138 right now FBS range: 68 - 400 Ocular History: Severe dry eye: Yes Cataracts: Yes, sx 2018 Glaucoma: No Refractive error: Yes Diabetes: Yes AMD: No Major eye surgery: No Ocular trauma: No Head/brain injury: No Outside Ocular Care: Patient follows with Dr. Hurd for routine eye exams. Patient last dilated eye exam was completed about a month ago. Care Team: Referring: Dee Euceda MD Ophth/Optom: Dr. Hurd PCP: Dr. Willard Henriquez Neurologist: Relevant Labs & Imaging: MRI - she brought images an discs Current Ocular Meds: Artificial Tears Last edited by Dona Cartagena on 03/28/2024 3:36 PM. Review of Outside of Prior Records: Outside Records: referring records reviewed CareEverywhere: reports reviewed Past Medical, Surgical, and Social History: Derrell has a past medical history of Arthritis, Asthma, Cardiovascular disease, Diabetes mellitus, Essential hypertension, benign, History of kidney problems, Migraine, and Stomach ulcer. Derrell has no past surgical history on file. Derrell family history includes Alzheimer's in her mother; Arthritis - Osteo in her mother; Cataract in her father and mother; Diabetes in her father and mother; Heart Disease - Other in her father andmother; Hypertension in her father and mother; Lipid Disorder in her father and mother. Derrell reports that she has never smoked. She has never used smokeless tobacco. She reports that shedoes not drink alcohol and does not use drugs. Current Medications: Current Outpatient Medications: Clobetasol 0.05 % Ointment, Apply 1 Application topically 2 times daily., Disp: , Rfl: Clopidogrel 75 MG tablet, Take 1 tablet by mouth daily., Disp: , Rfl: Erythromycin 5 MG/GM Ointment ophthalmic ointment, Apply 1 Application to both eyes once., Disp: , Rfl: faMOTIdine 20 MG tablet, Take 1 tablet by mouth 2 times daily., Disp: , Rfl: Farxiga 10 MG tablet, Take 1 tablet by mouth daily., Disp: , Rfl: furOSEmide 20 MG tablet, Take 1 tablet by mouth daily., Disp: , Rfl: furOSEmide 40 MG tablet, Take 1 tablet by mouth daily., Disp: , Rfl: Gabapentin 100 MG capsule, Take 1 capsule by mouth 3 times daily., Disp: , Rfl: HumuLIN R U-500 KwikPen 500 UNIT/ML Solution Pen-injector injection, INJECT 200 UNITS SUBCUTANEOUSLY THREE TIMES DAILY WITH MEALS AND INJECT 80 UNITS TWICE DAILY WITH SNACKS., Disp: , Rfl: Isosorbide mononitrate 30 MG Tab SR 24 HR tablet XL, Take 2 tablets by mouth daily every morning., Disp: , Rfl: levothyroxine 175 MCG tablet, Take 1 tablet by mouth daily., Disp: , Rfl: Melatonin 10 MG capsule, Take 0.5-1 capsules by mouth., Disp: , Rfl: Metoprolol succinate 25 MG tablet XL, Take 1 tablet by mouth daily every morning., Disp: , Rfl: Montelukast 10 MG tablet, Take 1 tablet by mouth at bedtime., Disp: , Rfl: nitroGLYCERIN 0.4 MG tablet SL, Place 1 tablet under tongue every 5 minutes as needed., Disp: , Rfl: nystatin 051444 UNIT/GM Cream, Apply 1 Application topically 2 times daily., Disp: , Rfl: omeprazole [address] capsule, Take 1 capsule by mouth daily., Disp: , Rfl: potassium chloride 10 MEQ Tab CR tablet ER, Take 2 tablets by mouth 2 times daily., Disp: , Rfl: predniSONE 20 MG tablet, Take 1 tablet by mouth daily., Disp: , Rfl: Rosuvastatin 20 MG tablet, Take 1 tablet by mouth daily., Disp: , Rfl: Spironolactone 25 MG tablet, Take 1 tablet by mouth 2 times daily., Disp: , Rfl: Trulicity 3 MG/0.5ML Solution Pen-injector, INJECT 3 MG SUBCUTANEOUSLY ONCE A WEEK: TO BE USED WHEN4.5 IS NOT AVAIABLE, Disp: , Rfl: Trulicity 4.5 MG/0.5ML Solution Pen-injector, INJECT 4.5 MG SUBCUTANEOUSLY EVERY MONDAY, Disp: , Rfl: Allergies: Derrell has no allergies on file. Review of Systems: Pertinent positives and negatives listed in HPI; all other systems reviewed and negative. Exam: Cooperation: excellent Base Eye Exam Visual Acuity (Snellen - Linear) Right Left Dist cc CF 1' 20/30 -2 Dist ph cc 20/25 -2 Pupils Pupils Shape React APD Right PERRL Round Brisk 0.6 log units Left PERRL Round Brisk None Visual Peters Left Right Full Restrictions Total inferior temporal deficiency; Partial outer inferior nasal deficiency; Partial inner superior temporal, superior nasal deficiencies Extraocular Movement Right Left Full Full Neuro/Psych Oriented x3: Yes Mood/Affect: Normal Strabismus Exam 0 0 0 Ortho 0 0 0 Ortho 0 0 Ortho 0 0 Ortho 0 0 0 Ortho 0 0 0 Slit Lamp and Fundus Exam External Exam Right Left External Normal Normal Slit Lamp Exam Right Left Lids/Lashes Normal Normal Conjunctiva/Sclera White and quiet White and quiet Cornea Clear Clear Anterior Chamber Deep and quiet Deep and quiet Iris Round and reactive Round and reactive Lens Psuedophakic Psuedophakic Fundus Exam Right Left Disc 2+ pallor, resolving inferior Nasal peripapillary heme Normal, no heme C/D Ratio 0.2 0.15 Refraction Wearing Rx Sphere Cylinder Monroe Right [place] +1.50 015 Left [place] +1.00 060 In-Office Testing: HVF OD Reliability Fovea MD PSD Interp 03/28/2024 Low; 3/14 FL Off N/a N/a Stim-V: central and temporal cecocentral dense defect. Mild nasal scotoma. EBS. HVF OS Reliability Fovea MD PSD Interp 03/28/2024 Low; 6/ 36 -1.59 2.13 Inferior small defects on Total and Pattern. RNFL OD OS Interp 03/28/2024 77 88 OD: S thinning OS: no localized NFL loss; small C/D GCC OD OS Interp 03/28/2024 57 80 OD: diffuse GCC loss OS: no localized GCC loss Relevant Labs and Imaging Reports: Repeat Labs 03/06/2024 Negative: TB Quant, RF, Hep B, NADRIY/lysozyme, MRI Brain w/wo Contrast 03/20/2024 R TABx 02/2024 Summary of HPI, Assessment, and Plan: Derrell German is a 68 y.o. female who presented 03/28/2024 as a referral from Dr. 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 She has a relevant history of IDDM, HTN, CAD s/p caths x3. She presented to Dr. Euceda 02/05/2024 with 3 days of painless, central visionloss OD. She was noted to have VA HM OD / 20/30 OS w/ rAPD OD, Grade 4+ hemorrhagic disc edema OD /Grade 1-2+ hemorrhagic edema OS. She complained of temporal headaches. Lab work showed mildly elevated CRP+ESR. R-sided TABx was negative. She was treated with IVMP x3d followed by Prednisone 80mg daily. She established w/ Veterinary Virus Serum Inspector (Dr. Dangelo), who concurred w/ diagnosis of biopsy-negativeGCA and recommended Actemra. Today, she confirms the history as documented and further adds that she has tapered down on her prednisone and is currently taking 40 mg per day. She is having a very hard time tolerating prednisone.The approval for Actemra has been delayed due to pending lab work and a bout of cellulitis of her abdomen. She denies headaches, temporal tenderness, scalp pain, jaw claudication, excessive fatigue, myalgias, fevers, and chills. She has not had any weight loss, and instead has had weight gain as a result of prednisone. On exam, she has resolving disc edema of the right eye with persistent central- predominant severe vision loss and total dyschromia. The fellow eye shows no recurrence of edema and relatively normal afferent function with preserved micro architecture on OCT RNFL+GCC. 1. Ischemic optic neuropathy of both eyes 2. 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 She does, of course, have numerous risk factors for non-arteritic ischemic optic neuropathy, but her original presentation with bilateral simultaneous edema which responded to steroids is not consistent with this. Work-upwas otherwise appropriate and negative. Agree with treatment as biopsy-negative giant cell arteritis. Appreciate rheumatology involvement for Actemra and prednisone taper. Strict return precautions reviewed. Return in about 6 months (around 09/28/2024) for Color Vision, OCT-RNFL, HVF 24-2 Fast. Phillip Whelan MD Neuro-Ophthalmology and Adult Strabismus Department of Ophthalmology [facility] P: [phone] * Dona Cartagena - 03/28/2024 1:20 PM EDT REASON FOR VISIT Derrell German presents to clinic today for a New Patient visit. Chief Complaint New Patient HISTORY OF PRESENT ILLNESS HPI Derrell German is a 68 y.o. woman with POH of Papilledema OU who is present today for a neuro-ophthalmic evaluation, referred by Dee Euceda MD. Patient complains of sudden onset central vision loss, OD towards on February 01. Left eye seems to bestable. Patient has been being treated with steroids since February 03. She had a TABx and it was negative. Patient denies headaches, pentecostal pain, scalp tenderness, jaw pain/cramping, or pain when chewing. She does note some joint pain and cramping in her hands and fingers. Diabetes: Last A1C: 6.8 03/25/24 FBS: 138 right now FBS range: 68 - 400 Ocular History: Severe dry eye: Yes Cataracts: Yes, sx 2018 Glaucoma: No Refractive error: Yes Diabetes: Yes AMD: No Major eye surgery: No Ocular trauma: No Head/brain injury: No Outside Ocular Care: Patient follows with Dr. Hudr for routine eye exams. Patient last dilated eye exam was completed about a month ago. Care Team: Referring: Dee Euceda MD Ophth/Optom: Dr. Hurd PCP: Dr. Willard Henriquez Neurologist: Relevant Labs & Imaging: MRI - she brought images an discs Current Ocular Meds: Artificial Tears Last edited by Dona Cartagena on 03/28/2024 3:36 PM. Allergies, medications & history reviewed & updated by Dona Cartagena REVIEW OF SYSTEMS Review of Systems HENT: Positive for postnasal drip, rhinorrhea, sinus pressure and tinnitus. Eyes: Positive for photophobia and visual disturbance. Respiratory: Positive for apnea and shortness of breath. Cardiovascular: Positive for leg swelling. Gastrointestinal: Positive for constipation and diarrhea. Endocrine: Positive for cold intolerance, heat intolerance and polydipsia. Musculoskeletal: Positive for back pain. Allergic/Immunologic: Positive for food allergies. Neurological: Positive for headaches. >30 minutes was spent with patient updating allergies, medications, and medical history. Referring Physician: Dee Euceda MD [address] [place] [address] * Meño Pearce - 03/28/2024 1:20 PM EDT Derrell German is a 68 y.o. female who presents to clinic for Vision Loss Brief HPI: Pt reports sudden Vision Loss OD on February 01. She went to see Dr.Ryan Kinsey MD. For head pain and Nerve swelling She was evaluated for GCA. She has been on oral steroid treatment since February 03 following a Negative TABx. At the subsequent visit her OD optic nerve swelling was resolved but was observed in the OS. Pt denies any other eye pain or eye discomfort OU. Pt denies any other vision changes. She does note a history of diabetes and insomnia. Pt notes history of 13.0 A1c but is now downto 6.8. Pt denies previous headaches or jaw pain prior to the episode one February 01. She does admit CPAP use. She was referred by her chief of staff Dr. Antolin MD for Actemra. Plan and Assessment: She presents to clinic today with scans and exam that support the diagnosis AION. Her symptoms wereresolved with Oral steroids. Defer to Veterinary Virus Serum Inspector for Actemra treatment. Explained the etiology and risk factor associated with AION. Referral to Low vision sent. Will send letters to both Dr. Dr.Ryan Kinsey MD and Dr. Rozina MD Continue Oral Prednisone Continue Care with chief of staff and wood machine carver Referral to Low vision Strict Return Precautions Reviewed Follow-up in 6 months I, Meño Pearce, acted as a scribe for Phillip Whelan MD for this note of 03/28/2024 4:25 PM. documented in this [facility]24 NoteHNO ID: [id number] Author: LOVE FREEMAN LPN Service: ? Author Type: LICENSED NURSE Type: Progress Notes Filed: 03/20/2024 13:13 Note Text: Scan on 03/20/2024 8:41 AM by Mary Dow PA-C: [facility] History of Present illness Narrative* Love Freeman LPN - 03/20/2024 1:12 PM EDT Scan on 03/20/2024 8:41 AM by Mary Dow PA-C: MRI documented in this encounterThe [facility]07-08-2024 NoteHNO ID: [id number] Author: LUCHO JAVED LPN Service: ? Author Type: LICENSED NURSE Type: Progress Notes Filed: 03/11/2024 15:24 Note Text: Scan on 03/09/2024 3:34 PM by ProviderMary PA-C: M[facility] LabC[facility]07-08-2024 History of Present illness Narrative* Lucho Javed LPN - 03/11/2024 3:23 PM EDT Scan on 03/09/2024 3:34 PM by Mary Dow PA-C: Miscellaneous Lab documented in this encounterThe [facility]06-24-2024 NoteHNO ID: [id number] Author: LOVE FREEMAN LPN Service: ? Author Type: LICENSED NURSE Type: Progress Notes Filed: 02/26/2024 14:40 Note Text: Scan on 02/26/2024 10:05 AM by Mary Dow PA-C: Consultation - General SurgeryC[facility]06-[facility] History of Present illness Narrative * Love Freeman LPN - 02/26/2024 2:40 PM EDT Scan on 02/26/2024 10:05 AM by Mary Dow PA-C: Consultation - General Surgery documented in this encounterThe [facility]06-24-2024 NoteHNO ID: [id number] Author: LOVE FREEMAN LPN Service: ? Author Type: LICENSED NURSE Type: Progress Notes Filed: 02/26/2024 08:53 Note Text: Scan on 02/23/2024 7:34 PM by Mary Dow PA-C: Chemistry Scan on 02/23/2024 7:05 PM by Mary Dow PA-C: Chemistry Scan on 02/23/2024 6:37 PM by Mary Dow PA-C: [facility] History of Present illness Narrative* Love Freeman LPN - 02/26/2024 8:52 AM EDT Scan on 02/23/2024 7:34 PM by Mary Dow PA-C: Chemistry Scan on 02/23/2024 7:05 PM by Mary Dow PA-C: Chemistry Scan on 02/23/2024 6:37 PM by Mary Dow PA-C: Hematology documented in this encounterThe [facility]06-13-2024 NoteHNO ID: [id number] Author: LUCHO JAVED LPN Service: ? Author Type: LICENSED NURSE Type: Progress Notes Filed: 02/15/2024 18:39 Note Text: Scan on 02/15/2024 3:11 PM by Mary Dow PA-C: [facility]ologyC[facility]06-13-[facility] History of Present illness Narrative* Lucho Javed LPN - 02/15/2024 6:39 PM EDT Scan on 02/15/2024 3:11 PM by Mary Dow PA-C: Hematology documented in this encounterThe [facility]06-13-2024 NoteHNO ID: [id number] Author: TIGIST PIERCE LPN Service: ? Author Type: LICENSED NURSE Type: Progress Notes Filed: 02/15/2024 10:48 Note Text: Scan on 02/14/2024 4:17 PM by Mary Dow PA-C: Miscellaneous Lab [facility] History of Present illness Narrative* Tigist Pierce LPN - 02/15/2024 10:48 AM EDT Scan on 02/14/2024 4:17 PM by Mary Dow PA-C: Miscellaneous Lab Tigist Pierce LPN documented in this encounterThe [facility]06-11-2024 NoteHNO ID: [id number] Author: LUCHO JAVED LPN Service: ? Author Type: LICENSED NURSE Type: Progress Notes Filed: 02/13/2024 17:47 Note Text: Scan on 02/09/2024 12:05 PM by Mary Dow PA-C: Miscellaneous [facility]iac [facility] History of Present illness Narrative* Lucho Javed LPN - 02/13/2024 5:46 PM EDT Scan on 02/09/2024 12:05 PM by Mary Dow PA-C: Miscellaneous Cardiac documented in this encounterThe [facility]06-11-2024 NoteHNO ID: [id number] Author: KAY NEWMAN MA Service: ? 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 Type: Progress Notes Filed: 02/13/2024 16:00 Note Text: Scan on 02/12/2024 6:35 PM by Mary Dow PA-C: Miscellaneous Lab Kay Newman [facility]06-11-2024 History of Present illness Narrative* Kay Newman MA - 02/13/2024 4:00 PM EDT Scan on 02/12/2024 6:35 PM by Mary Dow PA-C: Miscellaneous Lab Kay Newman MA documented in this encounterThe [facility]06-06-2024 NoteHNO ID: [id number] Author: LUCHO JAVED LPN Service: ? Author Type: LICENSED NURSE Type: Progress Notes Filed: 02/08/2024 16:31 Note Text: Scan on 02/08/2024 9:41 AM by Mary Dow PA-C: Consultation - General Surgery Scan on 02/06/2024 3:09 PM by Mary Dow PA-C: Miscellaneous Lab Scan on 02/08/2024 1:35 PM by Mary Dow PA-C: [facility]06[facility] History of Present illness Narrative* Lucho Javed LPN - 02/08/2024 4:30 PM EDT Scan on 02/08/2024 9:41 AM by Mary Dow PA-C: Consultation - General Surgery Scan on 02/06/2024 3:09 PM by Mary Dow PA-C: Miscellaneous Lab Scan on 02/08/2024 1:35 PM by Mary Dow PA-C: Miscellaneous Lab documented in this encounterThe [facility]06-04-2024 NoteHNO ID: [id number] Author: LUCHO JAVED LPN Service: ? Author Type: LICENSED NURSE Type: Progress Notes Filed: 02/06/2024 18:48 Note Text: Scan on 02/06/2024 3:09 PM by Mary Dow PA-C: [facility] LabC[facility]06-[facility] History of Present illness Narrative* Lucho Javed LPN - 02/06/2024 6:47 PM EDT Scan on 02/06/2024 3:09 PM by Mary Dow PA-C: Miscellaneous Lab documented in this encounterThe [facility]05-13-[facility] History of Present illness Narrative* Tigist Pierce LPN - 01/15/2024 11:05 AM EDT Scan on 01/12/2024 4:45 PM by Mary Dow PA-C: Consultation - PT/OT/Speech Tigist Pierce LPN documented in this encounterThe [facility]05-02-2024 History of Present illness Narrative* Chantell Carmona MA - 01/04/2024 11:06 AM EDT Scan on 01/04/2024 8:42 AM by Mary Dow PA-C: Consultation - Endocrinology documented in this encounterThe [facility]03-22-2024 Miscellaneous Notes* Telephone Encounter - Marcie Sharma MA - 11/24/2023 8:57 AM EDT Pt notified and verbalized understanding Marcie Sharma MA * Telephone Encounter - Padmini Anguiano APRN.CNP - 11/24/2023 8:43 AM EDT Please let patient know their labs are normal. documented in this encounterThe [facility]03-21-2024 Miscellaneous Notes* Telephone Encounter - Marcie Sharma MA - 2023 6:04 PM EDT Pt active on [employer]- message sent with normal results Marcie Sharma MA * Telephone Encounter - Padmini Anguiano APRN.CNP - 2023 5:11 PM EDT Please let patient know their xray is normal. documented in this encounterThe [facility]03-21-2024 History of Present illness Narrative* Bessy Calvin RT(R) - 2023 3:20 PM EDT Radiology Service Progress Note PATIENT NAME: Derrell German DATE OF SERVICE: 2023 TIME: 3:22 PM PATIENT IDENTITY VERIFICATION COMPLETED USING TWO (2) IDENTIFIERS: Name and Date of confirmedby patient verbally. FALL SCREENING: Has the patient had 2 falls in the last year or 1 fall with injury or currently using an Ambulatory Assistive Device (Walker, Cane, Wheelchair, Crutches, etc.)? Yes, Patient High Riskfor Falls What interventions were put in place to prevent falls during this visit? Offered Assistance with Transfers/Clothing and Increased Observations by Caregivers PATIENT GENDER DATA: Female. status: : No status: NO. PATIENT RELEVANT IMPLANT DATA REVIEWED: Yes PATIENT PRESENTS WITH AN IMPLANTABLE OR ATTACHED ROLLED GLASS CROSSCUTTER: Yes Dexcom RADIOLOGY DEPARTMENT: General X-ray: Exam(s) Completed: Chest X-Ray PERIPHERAL IV DATA: Not applicable SIGNED BY: Bessy Calvin, (R) 2023 3:22 PM documented in this encounterThe [facility] History of Present illness Narrative* Padmini Anguiano APRN.ENROLLMENT REPRESENTATIVE - 2023 2:17 PM EDT Chief Complaint Patient presents with: 6 Month Exam HPI Derrell German is a 67 year old female who presents here today for Above Complaints.. Concerned for swelling of both legs. Painful to touch. Recently underwent echo at OSH. Duplex of BLE negative for blood clots. Takes 60 mg lasix BID. Wears ANDRIY bandages daily as can not wear compression stockings. Shortness of breath with exertion. Denies cough. Has not noticed shortness of breath when laying down, uses BIPAP. Also reports dribbling of urine after standing up when finished voiding. This has increased in frequency. No other incontinence. Past medical history, appointments, medications, allergies reviewed. Previous Medical History PAST MEDICAL HISTORY Diagnosis Date Advance directive discussed with patient 04/06/2022 Discussed 04/2022 Allergic rhinitis 02/10/2011 ASHD (arteriosclerotic heart disease) 03/08/[address] [place] Asthma Dr[address] 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 History of left heart catheterization HEART CATH X2 STENTS X 3 NASH GARCIA Hyperlipidemia, mixed 06/30/2015 DR HUDSON, Hypertension, essential 06/30/2015 NASH GARCIA CARD- controlled with medication Joint pain PAIN MANAGMENT WILLARD CRUZ Living will on file 04/06/2022 DPA: Ever () Lumbar radiculopathy 04/28/2020 R L4 radiculopathy 04/2020 Medicare annual wellness visit, initial 04/06/2022 Medicare part B: 11/03/2019 Last done: 04/06/2022 Mild intermittent asthma without complication 02/10/2011 DENIES PROBLEMS, DENIES INHALERS Morbid obesity (HCC) 01/10/2012 NATALIE (obstructive sleep apnea) 09/10/2019 On BiPAP and sees VENTURA Schaffer Osteoarthritis of both knees 02/02/2017 Other intervertebral disc displacement, lumbosacral region 02/23/2023 PONV (postoperative nausea and vomiting) Postherpetic neuralgia 03/14/2014 Right mid-trunk area. 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 Psoriasis 10/23/2017 Rash bilateral forearms Rosacea 04/19/2013 Shingles 2014 Spinal stenosis of lumbar region without neurogenic claudication 03/19/2021 DR SANDOVAL FOLLOWING Spondylolisthesis of lumbar region 02/23/2023 Stage 3a chronic kidney disease (HCC) 03/19/2021 GERALD CALHOUN AND WILLARD HARRINGTON Uncontrolled type 2 diabetes mellitus with hyperglycemia ([facility]) 12/24/2019 Seeing GERALD Marte Uses roller walker Vitamin D deficiency 03/19/2021 Wears glasses reading Previous Surgical History PAST SURGICAL HISTORY Procedure Laterality Date ANESTH, HYSTERECTOMY 2000 ANESTHESIA NOSE & ACCESSORY SINUSES NOS 1996 CHOLECYSTECTOMY 1989 COLONOSCOPY FLX DX W/COLLJ SPEC WHEN PFRMD 04/18/2011 X3 HEART CATHETERIZATION 2002 HEART CATH X2 2001 & 2019 STENTS X3 2019 PAST SURGICAL HISTORY OF L. knee PAST SURGICAL HISTORY OF kidney stones PAST SURGICAL HISTORY OF Right 2007 Knee PAST SURGICAL HISTORY OF NERVE STIMULATOR AND REMOVAL MELISSA ORTH REMV CATARACT EXTRACAP,INSERT LENS Bilateral Rt 08/2019, Lt 11/2019 STRESS TEST ADENOSINE 05/11/2013 THYROIDECTOMY TOTAL/COMPLETE 2000 TONSILLECTOMY HX 1963 Family History FAMILY HISTORY Problem Relation Age of Onset Diabetes Mother Thyroid Mother Diabetes Father Diabetes Paternal Aunt Patient Allergies ALLERGIES Allergen Reactions Amlodipine Swelling Diflucan [Fluconazo* Hives Diphth,Pertus(Acell* Hives Actos [Pioglitazone* Other: See Comments Edema BLE AND OLGA HANDS Bactrim [Sulfametho* Hives HIVES Betadine [Povidone-* Anaphylaxis SEVERE ALLERGY TO IODINE AND BETADINE Fish Anaphylaxis ALL FISH Iodine Anaphylaxis IV contrast Lipitor [Atorvastat* Rash, Itching Metformin Diarrhea, GI Upset [place] Anaphylaxis Penicillins Unknown NOT SURE A CHILD Sulfa (Sulfonamide * Swelling SWELLING AND HIVES Current Medications Current Outpatient Medications on File Prior to Visit Medication Sig clopidogrel (PLAVIX) 75 mg tablet Take 1 tablet by mouth once daily. enoxaparin (LOVENOX) 40 mg/0.4 mL 40 mg sub Q twice a day. montelukast (SINGULAIR) 10 mg tablet Take 1 tablet by mouth daily at bedtime. metoprolol succinate ER (TOPROL XL) 25 mg 24 hr tablet Take 1 tablet by mouth every morning. levothyroxine (SYNTHROID) 175 mcg tablet Take 1 tablet by mouth once daily. Mon- Sat and none on Sun. Take on empty stomach. For Thyroid. Per endo: Dr. Marques gabapentin (NEURONTIN) 100 mg capsule 300 mg by mouth three times/day famotidine (PEPCID) 20 mg tablet Take 1 tablet by mouth two times a day. rosuvastatin (CRESTOR) 20 mg tablet Take 1 tablet by mouth once daily. potassium chloride (K-TAB) 10 mEq tablet Take 2 tablets by mouth two times a day. clobetasol (TEMOVATE) 0.05 % ointment Apply to affected area two times a day. spironolactone (ALDACTONE) 25 mg tablet Take 1 tablet by mouth twice daily. polyethylene glycol 3350 17 gram packet Take 1 Packet by mouth once daily. Dissolve dose in 4 - 8 ounces of liquid and take as directed. acetaminophen (TYLENOL) 500 mg tablet Take 2 tablets by mouth every 6 hours as needed for pain. bisacodyl EC (DULCOLAX) 5 mg EC tablet Take 2 tablets by mouth once daily as needed for constipation. polyethylene glycol 3350 17 gram packet Take 1 Packet by mouth once daily as needed. Dissolve dose in 4 - 8 ounces of liquid and take as directed. calcium carbonate (ANTACID CALCIUM ORAL) Take by mouth as needed. Last dose 02/09 melatonin 10 mg cap Take 5-10 mg by mouth daily at bedtime. BIPAP daily at bedtime. dapagliflozin (FARXIGA) 10 mg tablet Take 10 mg by mouth daily with breakfast. Take 1 tablet daily TRULICITY 3 mg/0.5 mL pen injector Inject 4.5 mg subcutaneously one time a week. Monday furosemide (LASIX) 40 mg tablet Take 1 tablet by mouth twice daily. Per [facility] (Patient taking differently: Take 60 mg by mouth twice daily. NASH GARCIA) EPINEPHrine (EPIPEN) 0.3 mg/0.3 mL auto-injector Use auto-injector x 1 for allergic reaction. (Patient taking differently: Inject 0.3 mg intramuscularly as needed. Use auto-injector x 1 for allergic reaction.) Cholecalciferol, Vitamin D3, 125 mcg (5,000 unit) cap Take 1 capsule by mouth once daily. (Patient taking differently: Take 5,000 Units by mouth every morning. Last dose 02/07/23) isosorbide mononitrate ER (IMDUR) 30 mg 24 hr tablet Take 60 mg by mouth every morning. insulin regular human, CONCENTRATED 500 UNIT/ML, (HUMULIN R) 500 unit/mL soln Inject 15 units ac brkt; 10 unts ac lunch; 15 units ac supper (Patient taking differently: Inject subcutaneously. 175 units before breakfast 175 units before lunch 185 units before dinner 80 units at bedtime Depends on BS tests) nitroglycerin sublingual (NITROQUICK) 0.4 mg SL tablet Dissolve 1 tablet under the tongue every 5 minutes as needed for Chest Pain. No current facility-administered medications on file prior to visit. Social History Social History Tobacco Use Smoking status: Never Passive exposure: Never Smokeless tobacco: Never Vaping Use Vaping Use: Never used Substance Use Topics Alcohol use: Never Drug use: Never Review of Symptoms REVIEW OF SYSTEMS See HPI EXAM: BP 134/76 Pulse 80 Resp 18 Wt 123.8 kg (273 lb) BMI 49.93 kg/m General Appearance: Well appearing, alert, in no acute distress, well-hydrated, well nourished.. Lungs: Lungs clear to auscultation. No wheezing, rhonchi, rales.. Heart: RRR without murmur, gallop, or rubs. No ectopy. Extremities: Edema: +3 edema bilateral legs. Peripheral Pulses: Normal. Health Maintenance List RSV Vaccine(1 - 1-dose 60+ series) Never done Shingrix Vaccine(2 of 3) due on 03/13/2015 Mammogram Screening due on 07/13/2022 Diabetic Foot Exam due on 02/22/2023 Urine Albumin:Creatinine Ratio due on 04/26/2023 Dilated Retinal Exam due on 08/09/2023 Depression Assessment due on 09/04/2023 HbA1C due on 04/09/2024 LDL Cholesterol due on 04/18/2024 Serum Creatinine due on 04/18/2024 Annual PCP Team Chronic Disease Visit due on 10/25/2024 BP Controlled (<130/80) due on 10/25/2024 DTaP,Tdap,Td Vaccine(5 - Td or Tdap) due on 06/30/2025 Colorectal Cancer Screening due on 05/24/2027 Bone Density Screening Completed Influenza Vaccine Completed Advance Directive Discussion Completed Hepatitis C Screening Completed Covid-19 Vaccine Completed Pneumococcal Vaccine: 65+ Completed Spirometry Discontinued ASSESSMENT/PLAN: 1. SOB (shortness of breath) - ICD9: 786.05, ICD10: R06.02 (primary diagnosis) -XR Chest 2. Bilateral leg edema - ICD9: 782.3, ICD10: R60.0 Stable previously recorded as 2-3+pitting edema 3. Postsurgical hypothyroidism - ICD9: 244.0, ICD10: E89.0 - Instructed patient on importance of taking on an empty stomach either first thing in the morning or at bedtime. - continue current dose of Synthroid 175mcg 4. Hypertension, essential - ICD9: 401.9, ICD10: I10 - Controlled - Continue current medications - Recommend home blood pressure monitoring, to bring results to next visit - Encouraged sodium restriction, DASH or Mediterranean diet - Recommend regular aerobic exercise - Discussed need for and benefit of weight loss. BMI 49.93 kg/(m^2) 5. Stage 3a chronic kidney disease (HCC) - ICD9: 585.3, ICD10: N18.31 - eGFR: 70 Stable - Counseled on avoiding NSAIDs, adequate hydration - Counseled on low sodium diet 6. Hyperlipidemia, mixed - ICD9: 272.2, ICD10: E78.2 - Controlled - Continue current medications - Counseled on healthy diet and regular exercise 7. Type 2 diabetes mellitus with stage 3a chronic kidney disease, with long-term current use of insulin (HCC) - ICD9: 250.40, 585.3, V58.67, ICD10: E11.22, N18.31, Z79.4 - Improving control - Continue current medications - Counseled on healthy diet and regular exercise - Discussed need for and benefit of weight loss. BMI 49.93 kg/(m^2) - eGFR: 70 Stable - Counseled on avoiding NSAIDs, adequate hydration - Counseled on low sodium diet 8. Vitamin D deficiency - ICD9: 268.9, ICD10: E55.9 -Continue supplementation 9. NATALIE (obstructive sleep apnea) - ICD9: 327.23, ICD10: G47.33 -Wears bipap nightly 10. Gastroesophageal reflux disease, unspecified whether esophagitis present - ICD9: 530.81, ICD10:K21.9 - Discussed lifestyle modifications including losing weight, limiting caffeine, no meals three hours before sleep, and head of bed elevation - Continue treatment with Prilosec 20 mg QD E Brant [employer] Student I have personally seen and examined the patient and performed the medical- decision making components. I have reviewed the Advanced Practice Registered Nurse (STOVE POLISHER) student's documentation and verified the findings in the note as written. Any additions or changes are noted in bold/italics. Padmini Anguiano APRN.ENROLLMENT REPRESENTATIVE documented in this encounterThe [facility]03-21-[facility] Evaluation note* Diagnosis SOB (shortness of breath)- Primary Shortness of breath Type 2 diabetes mellitus with stage 3a chronic kidney disease, with long-term current use of insulin (HCC) Hyperlipidemia, mixed Mixed hyperlipidemia Vitamin D deficiency Unspecified vitamin D deficiency Medication management Encounter for long-term (current) use of other medications Morbid obesity due to excess calories (HCC) documented in this encounter [facility]02-22-[facility] Miscellaneous Notes* Telephone Encounter - Willard Henriquez MD - 10/26/2023 12:03 PM EST Patient completed US and was negative. See other TE from today 10/26/2023. * Telephone Encounter - Love Freeman LPN - 10/26/2023 8:31 AM EST Appointment is scheduled at 11 am today at our facility. Spoke with pt and she is aware of same. Ptwants to let Dr Henriquez know that when her tried giving the first Lovenox injection it misfired so she didn't get that dose. States the directions weren't very good so went to ER for instructions. She did get one dose of the medication and is taking another dose in about 1/2 he. She will only have one dose left. Love Freeman LPN * Telephone Encounter - Kay Newman MA - 10/25/2023 8:54 PM EST Schedulers soheila were not able to get a STAT CT for tomorrow. The soonest was 11/01/2023. Chief Mechanical Engineer (dot) is having someone work on tomorrow morning. They may need an order for [facility] if cannot get patient. I did let patient know she should be expecting a call in the morning. Kay Newman MA documented in this encounterThe [facility]02-22-[facility]24 Miscellaneous Notes* Telephone Encounter - Love Freeman LPN - 10/26/2023 11:54 AM EST Pt notified of results and instructions. Pt verbalizes understanding. Love Freeman LPN * Telephone Encounter - Willard Henriquez MD - 10/26/2023 11:48 AM EST Let patient know US was negative for blood clots. Does not need to take any further Lovenox shots. documented in this encounterThe [facility]02-[facility] History of Present illness Narrative* Kay Newman MA - 10/25/2023 6:06 PM EST Patient indicated that the prescription were sent to [facility]. MA contacted [facility] and spoke withLena at 6;06 pm this date to cancel. Kay Newman MA * Willard Henriquez MD - 10/25/2023 4:00 PM EST Chief Complaint Patient presents with: Medicare Wellness Exam HPI Derrell German is a 67 year old female who presents here today for Chronic Medical Conditions. and Medicare Annual Visit. Patient with hx of ASHD, DM 2, Hyperlipidemia, HTN, Mild Asthma, hypothyroidism, CKD, morbid obesity, NATALIE, Vit D def, spinal stenosis with neurogenic claudication. Any new concerns today? See below Any recent ER/hospital visits? None Patient saw Dr. Marques 10/24/2023 A1C 7.4 Patient saw [facility] 10/25/2023 Patient was seen today by cardiology (reviewed in scannedsection). Patient has been having increased SOB with exertion and edema. They are obtaining a BNP and ECHO. Patient to be wearing compression stockings. They were concerned about increasing her diuretic due to being on 60 mg of lasix a day. She also has stage 3a-3b CKD. Patient sees Dr. Chris last visit 05/2023 Patient has had redness of both legs off and on for several months. Legs are tender to touch. Has not had an US completed to eval for a clot. The shortness of breath has been going on for about 2 weeks. Patient does sit a lot throughout the day and when she does she does not have her legs elevated above her heart. She does limit her salt intake. Past medical history, appointments, medications, allergies reviewed. Previous Medical History PAST MEDICAL HISTORY Diagnosis Date Advance directive discussed with patient 04/06/2022 Discussed 04/2022 Allergic rhinitis 02/10/2011 ASHD (arteriosclerotic heart disease) 03/08/[address] [place] Asthma Dr. 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 History of left heart catheterization HEART CATH X2 STENTS X 3 NASH GARCIA Hyperlipidemia, mixed 06/30/2015 DR HUDSON, Hypertension, essential 06/30/2015 ANSH GARCIA CARD- controlled with medication Joint pain PAIN MANAGMENT WILLARD CRUZ Living will on file 04/06/2022 DPA: Ever () Lumbar radiculopathy 04/28/2020 R L4 radiculopathy 04/2020 Medicare annual wellness visit, initial 04/06/2022 Medicare part B: 11/03/2019 Last done: 04/06/2022 Mild intermittent asthma without complication 02/10/2011 DENIES PROBLEMS, DENIES INHALERS Morbid obesity (HCC) 01/10/2012 NATALIE (obstructive sleep apnea) 09/10/2019 On BiPAP and sees VENTURA Schaffer Osteoarthritis of both knees 02/02/2017 PONV (postoperative nausea and vomiting) Postherpetic neuralgia 03/14/2014 Right mid-trunk area. 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 Psoriasis 10/23/2017 Rash bilateral forearms Rosacea 04/19/2013 Shingles 2014 Spinal stenosis of lumbar region without neurogenic claudication 03/19/2021 DR SANDOVAL FOLLOWING Stage 3a chronic kidney disease (HCC) 03/19/2021 GERALD CALHOUN AND WILLARD HARRINGTON Uncontrolled type 2 diabetes mellitus with hyperglycemia ([facility]) 12/24/2019 Seeing GERALD Marte Uses roller walker Vitamin D deficiency 03/19/2021 Wears glasses reading Previous Surgical History PAST SURGICAL HISTORY Procedure Laterality Date ANESTH, HYSTERECTOMY 2000 ANESTHESIA NOSE & ACCESSORY SINUSES NOS 1995 CHOLECYSTECTOMY 1989 COLONOSCOPY FLX DX W/COLLJ SPEC WHEN PFRMD 04/18/2011 X3 HEART CATHETERIZATION 2002 HEART CATH X2 2001 & 2019 STENTS X3 2019 PAST SURGICAL HISTORY OF L. knee PAST SURGICAL HISTORY OF kidney stones PAST SURGICAL HISTORY OF Right 2007 Knee PAST SURGICAL HISTORY OF NERVE STIMULATOR AND REMOVAL MELISSA ORTH REMV CATARACT EXTRACAP,INSERT LENS Bilateral Rt 08/2019, Lt 11/2019 STRESS TEST ADENOSINE 05/11/2013 THYROIDECTOMY TOTAL/COMPLETE 2000 TONSILLECTOMY HX 1963 Family History FAMILY HISTORY Problem Relation Age of Onset Diabetes Mother Thyroid Mother Diabetes Father Diabetes Paternal Aunt Patient Allergies ALLERGIES Allergen Reactions Amlodipine Swelling Diphth,Pertus(Acell* Hives Diflucan [Fluconazo* Hives Actos [Pioglitazone* Other: See Comments Edema BLE AND OLGA HANDS Bactrim [Sulfametho* Hives HIVES Betadine [Povidone-* Anaphylaxis SEVERE ALLERGY TO IODINE AND BETADINE Fish Anaphylaxis ALL FISH Iodine Anaphylaxis IV contrast Lipitor [Atorvastat* Rash, Itching Metformin Diarrhea, GI Upset [place] Anaphylaxis Penicillins Unknown NOT SURE A CHILD Sulfa (Sulfonamide * Swelling SWELLING AND HIVES Current Medications Current Outpatient Medications on File Prior to Visit Medication Sig rosuvastatin (CRESTOR) 20 mg tablet Take 1 tablet by mouth once daily. potassium chloride (K-TAB) 10 mEq tablet Take 2 tablets by mouth two times a day. clobetasol (TEMOVATE) 0.05 % ointment Apply to affected area two times a day. famotidine (PEPCID) 20 mg tablet Take 1 tablet by mouth twice daily. gabapentin (NEURONTIN) 100 mg capsule 300 mg by mouth three times/day levothyroxine (SYNTHROID) 175 mcg tablet Take 1 tablet by mouth once daily. Mon- Sat and none on Sun. Take on empty stomach. For Thyroid. Per endo: Dr. Marques metoprolol succinate ER (TOPROL XL) 25 mg 24 hr tablet Take 1 tablet by mouth every morning. montelukast (SINGULAIR) 10 mg tablet Take 1 tablet by mouth daily at bedtime. spironolactone (ALDACTONE) 25 mg tablet Take 1 tablet by mouth twice daily. HYDROcodone-acetaminophen (NORCO) 5-325 mg per tablet Take 1 tablet by mouth every 6 hours as needed. polyethylene glycol 3350 17 gram packet Take 1 Packet by mouth once daily. Dissolve dose in 4 - 8 ounces of liquid and take as directed. acetaminophen (TYLENOL) 500 mg tablet Take 2 tablets by mouth every 6 hours as needed for pain. bisacodyl EC (DULCOLAX) 5 mg EC tablet Take 2 tablets by mouth once daily as needed for constipation. cyclobenzaprine (FLEXERIL) 10 mg tablet Take 1 tablet by mouth three times daily as needed. docusate sodium (COLACE) 100 mg capsule Take 1 capsule by mouth twice daily. ondansetron (ZOFRAN) 4 mg tablet Take 1 tablet by mouth every 6 hours as needed. polyethylene glycol 3350 17 gram packet Take 1 Packet by mouth once daily as needed. Dissolve dose in 4 - 8 ounces of liquid and take as directed. calcium carbonate (ANTACID CALCIUM ORAL) Take by mouth as needed. Last dose 02/09 melatonin 10 mg cap Take 5-10 mg by mouth daily at bedtime. BIPAP daily at bedtime. dapagliflozin (FARXIGA) 10 mg tablet Take 10 mg by mouth daily with breakfast. Take 1 tablet daily TRULICITY 3 mg/0.5 mL pen injector Inject 4.5 mg subcutaneously one time a week. Monday furosemide (LASIX) 40 mg tablet Take 1 tablet by mouth twice daily. Per [facility] (Patient taking differently: Take 60 mg by mouth twice daily. NASH GARCIA) EPINEPHrine (EPIPEN) 0.3 mg/0.3 mL auto-injector Use auto-injector x 1 for allergic reaction. (Patient taking differently: Inject 0.3 mg intramuscularly as needed. Use auto-injector x 1 for allergic reaction.) Cholecalciferol, Vitamin D3, 125 mcg (5,000 unit) cap Take 1 capsule by mouth once daily. (Patient taking differently: Take 5,000 Units by mouth every morning. Last dose 02/07/23) isosorbide mononitrate ER (IMDUR) 30 mg 24 hr tablet Take 60 mg by mouth every morning. insulin regular human, CONCENTRATED 500 UNIT/ML, (HUMULIN R) 500 unit/mL soln Inject 15 units ac brkt; 10 unts ac lunch; 15 units ac supper (Patient taking differently: Inject subcutaneously. 175 units before breakfast 175 units before lunch 185 units before dinner 80 units at bedtime Depends on BS tests) nitroglycerin sublingual (NITROQUICK) 0.4 mg SL tablet Dissolve 1 tablet under the tongue every 5 minutes as needed for Chest Pain. flash glucose scanning reader (FREESTYLE OCTAVIA 14 DAY READER) misc 1 Device every 2 weeks. No current facility-administered medications on file prior to visit. Social History Social History Tobacco Use Smoking status: Never Passive exposure: Never Smokeless tobacco: Never Vaping Use Vaping Use: Never used Substance Use Topics Alcohol use: Never Drug use: Never Review of Symptoms REVIEW OF SYSTEMS See HPI EXAM: BP 124/70 (BP Site: Left Arm, BP Position: Sitting, BP Cuff Size: Large Adult) Pulse 76 Resp 16 Wt 122 kg (269 lb) BMI 49.20 kg/m Last 4 Encounter Wt Readings: Date: Wt: 10/25/2023 122 kg (269 lb) 04/24/2023 108.4 kg (239 lb) 02/20/2023 108 kg (238 lb) 02/16/2023 105.4 kg (232 lb 6.4 oz) General Appearance: Well appearing, alert, in no acute distress, well-hydrated, well nourished. andMorbidly obese. Lungs: Lungs clear to auscultation. No wheezing, rhonchi, rales.. Heart: RRR without murmur, gallop, or rubs. No ectopy. Extremities: No deformities, there is 2-3+ pitting edema in bother lower legs. The skin is tight. There is some mild blistering on the lower anterior lower legs. There is tenderness to palpation of both calf's, Lt>Rt. There is mild venous congestion. Positive homans' on the right and negative onthe left. No signes of infection. Health Maintenance List RSV Vaccine(1 - 1-dose 60+ series) Never done Shingrix Vaccine(2 of 3) due on 03/13/2015 Mammogram Screening due on 07/13/2022 Diabetic Foot Exam due on 02/22/2023 Urine Albumin:Creatinine Ratio due on 04/26/2023 Dilated Retinal Exam due on 08/09/2023 Advance Directive Discussion due on 09/04/2023 Depression Assessment due on 09/04/2023 HbA1C due on 04/09/2024 LDL Cholesterol due on 04/18/2024 Serum Creatinine due on 04/18/2024 Annual PCP Team Chronic Disease Visit due on 04/24/2024 BP Controlled (<130/80) due on 04/24/2024 DTaP,Tdap,Td Vaccine(5 - Td or Tdap) due on 06/30/2025 Colorectal Cancer Screening due on 05/24/2027 Bone Density Screening Completed Influenza Vaccine Completed Hepatitis C Screening Completed Covid-19 Vaccine Completed Pneumococcal Vaccine: 65+ Completed Spirometry Discontinued Data reviewed Patient brought in some labs done per cardio today her urine showed she was spilling protein but there was no CMP to see what her protein and albumin are at. Her GFR was at 47 and creatine was 1.21 A/P ASSESSMENT/PLAN: 1. Bilateral leg edema - ICD9: 782.3, ICD10: R60.0 (primary diagnosis) - US LEG VEIN DVT [facility]: STAT 2. Bilateral calf pain - ICD9: 729.5, ICD10: M79.661, M79.662 - US LEG VEIN DVT [facility]: STAT 3. Acute on chronic diastolic congestive heart failure (HCC) - ICD9: 428.33, 428.0, ICD10: I50.33 - management per cardiology 4. Advance directive discussed with patient - ICD9: V65.49, ICD10: Z71.89 - up to date. Will place patient on Lovenox 40 mg twice a day till US completed. Requested Prescriptions Signed Prescriptions Disp Refills montelukast (SINGULAIR) 10 mg tablet 90 tablet 1 Sig: Take 1 tablet by mouth daily at bedtime. metoprolol succinate ER (TOPROL XL) 25 mg 24 hr tablet 90 tablet 1 Sig: Take 1 tablet by mouth every morning. levothyroxine (SYNTHROID) 175 mcg tablet 34 tablet 5 Sig: Take 1 tablet by mouth once daily. Mon- Sat and none on Sun. Take on empty stomach. For Thyroid. Per endo: Dr. Marques gabapentin (NEURONTIN) 100 mg capsule 270 capsule 1 Si mg by mouth three times/day famotidine (PEPCID) 20 mg tablet 180 tablet 1 Sig: Take 1 tablet by mouth two times a day. enoxaparin (LOVENOX) 40 mg/0.4 mL 4 Each 0 Si mg sub Q twice a day. Will reschedule routine in 2-4 weeks I spent a total of 42 minutes on the date of the service which included preparing to see the patient, [id number] patient care, completing clinical documentation, performing a medically appropriate examination, counseling and educating the patient/family/caregiver and ordering medications, tests, or procedures. Willard Henriquez MD documented in this encounterThe [facility]02-21-[facility]24 Instructions* Patient Instructions* Willard Henriquez MD - 10/25/2023 5:32 PM EST Gets labs done for Dr. Henriquez prior to next visit. documented in this encounterThe [facility]02-21-[facility]24 History of Present illness Narrative* Love Freeman LPN - 10/25/2023 1:00 PM EST Scan on 10/25/2023 12:13 PM by ProviderMary PA-C: Consultation - Cardiology Scan on 10/25/2023 1:40 PM by ProviderMary PA-C: Chemistry documented in this encounterThe [facility]02-20-2024 History of Present illness Narrative* Love Freeman LPN - 10/24/2023 9:27 AM EST Scan on 10/24/2023 7:56 AM by ProviderMary PA-C: Consultation - Endocrinology documented in this encounterThe [facility]02-14-2024 Miscellaneous Notes* Telephone Encounter - Love Freeman LPN - 10/18/2023 9:14 AM EST Patient has been identified by name and date of : Yes, Provider Dr Henriquez Date 10/18/23 Time 9:17 am Patient phones for refill(s): Requested Prescriptions Pending Prescriptions Disp Refills rosuvastatin (CRESTOR) 20 mg tablet 90 tablet 1 Sig: Take 1 tablet by mouth once daily. Date of last office visit in primary care: 04/24/2023 Date of next office visit in primary care: 10/25/2023 Please advise. Thank you. Love Freeman LPN. documented in this encounter[address]08-2024 History of Present illness Narrative* Love Freeman LPN - 10/12/2023 11:49 AM EST Scan on 10/12/2023 11:36 AM by ProviderMary PA-C: Microbiology documented in this encounterThe [facility]02-07-2024 History of Present illness Narrative* Love Freeman LPN - 10/11/2023 9:15 AM EST Scan on 10/10/2023 6:21 PM by ProviderMary PA-C: Miscellaneous Lab Scan on 10/10/2023 7:11 PM by ProviderMary PA-C: Microbiology documented in this encounterThe [facility]02-05-2024 Discharge summary Author Stevenson Chi [facility] October 09, 2023 6:45pm Note Date/Time October 09, 2023 6 :45pm [facility] Physical Therapy Health[address] [place] [address] / REHABILITATION SERVICES DISCHARGE SUMMARY MR#: [id number] Acct: [id number] Name: DERRELL GERMAN Rep #: [id number] : 1955 67 From: Cert. SAVANNAH Kam, OCS Referring DrKelle: OUT OF TOWN DOCTOR Status: REG RCR Insurance: MEDICARE PART A B ANTHEM <Electronically signed by Cert. SAVANNAH Hinson PT, OCS> 10/09/23 1845 CC: Dr. Willard Henriquez MD; ANDREA CARVALHO ~ XANDER Signed [facility] Work Phone: [phone]) 977-475111-30-2023 Evaluation note* Diagnosis Type 2 diabetes mellitus with stage 3a chronic kidney disease, with long-term current use of insulin (HCC)- Primary documented in this encounter [facility]11[facility]29-[facility] Miscellaneous Notes* Telephone Encounter - Kay Newman MA - 08/02/2023 4:37 PM EST Changed per provider. Kay Newman MA * Telephone Encounter - Willard Henriquez MD - 08/02/2023 4:27 PM EST Please extend patient's appt on 10/25/2023 another 20 min and make a medicare extensive. Last one was done in 2021. Las placed to due prior. documented in this encounterThe [facility]11-29-2023 History of Present illness Narrative* Silke Erazo MA - 08/02/2023 2:45 PM EST POPULATION HEALTH NAVIGATION OUTREACH Action/FYI Spoke to Claudia. Please order labs. Thanks Spoke with Claudia. She would like to get labs before appointment on 10-25-23 Patient Identified by Name and : YES, via phone Outreach Outcome/Action Spoke to patient / parent / legal guardian: No action required (information or reminder only) Did you use a PCP flex slot to schedule this appointment? N/A Reason for Outreach Care Gap or Scheduling/Wellness visits Payer: Payor: MEDICARE / Plan: MEDICARE A AND B / Product Type: Medicare / Care Gap Reviewed:: Annual Wellness visit Breast Cancer screening HBA1C Nephropathy (Albumin/Creatinine) Urine Reminder: Reminder note to check Health Maintenance for items below Health Maintenance items due: Hepatitis B Vaccine(1 of 3 - Risk 3-dose series) Never done RSV Vaccine(1 - 1-dose 60+ series) Never done Shingrix Vaccine(2 of 3) due on 03/13/2015 Mammogram Screening due on 07/13/2022 Diabetic Foot Exam due on 02/22/2023 Urine Albumin:Creatinine Ratio due on 04/26/2023 HbA1C due on 07/19/2023 Dilated Retinal Exam due on 08/09/2023 Navigation Signature: Silke Erazo MA August 02, 2023 2:45 PM documented in this encounterThe [facility]08-24-2023 History of Present illness Narrative* Kay Newman MA - 04/27/2023 1:30 PM EDT Scan on 04/26/2023 5:00 PM by Provider, TRINA Hernandez: Consultation - Cardiology Kay Newman MA documented in this encounterThe [facility]08-22-2023 Miscellaneous Notes* Telephone Encounter - Love Freeman LPN - 04/25/2023 2:27 PM EDT Pt notified of same. Love Freeman DIRECTOR OF SPORTS MEDICINE * Telephone Encounter - Jesica Sierra PA-C - 04/25/2023 1:53 PM EDT Repeat blood counts are back to normal. Jesica Sierra PA-C documented in this encounterThe [facility]08-21-2023 History of Present illness Narrative* Padmini Anguiano APRN.CNP - 04/24/2023 1:40 PM EDT Derrell German is a 67 year old female here for a Medicare wellness visit. Health Risk Assessment In general, health is: Very good Concerns with balance:Several days Concerns with teeth or dentures:Not at all Concerns with sexual function:Not at all [place] anxious, stressed, angry, irritable, lonely, isolated, or had thoughts of hurting themself: Not at all Has little interest or pleasure in doing things: Not at all Bothered by feeling down, depressed, or hopeless: Not at all Needs help with grocery shopping, cooking, housework, bathing, grooming, dressing, eating, sitting or standing, walking, using the toilet, handling finances, taking medications, using the telephone, or driving: Yes Following safety precautions in the home environment and vehicle: removed throw rugs from floors, installed grab bars in the bathroom, handrails in stairwells, having adequate lighting, wearing seatbelt at all times?: Yes Smokes cigarettes, vapes, or chew tobacco: No Eats healthy foods including fruits, vegetables, whole grains, and fiber-rich foods: Nearly every day Number of days per week engages in exercise: 0 days Average alcohol consumption: Never Current Providers Specialists: I have reviewed specialist-related care of the patient in the medical record. Medical/Family history review Reviewed and updated problem list, medical/surgical/family/social history, medications, and allergies. Opioid use review Patient is currently using opioids. Prescribed hydrocodone/acetaminophen, oxycodone HCl, tramadol HCl (last 90 days) Does patient have risk factors for opioid abuse? No Pain overview Current pain concerns and treatment plan reviewed. Patient stable on current treatment plan. Depression screening Depression Screening PHQ-2 Score BEVERLY-2 Total Score 04/06/2022 0 - Depression screening tool completed and reviewed. Based on score and interview, patient is not at risk for depression. Screening tool discussed with patient, and I recommended no further interventionat this time. Cognitive screening Mini Cog Score: Score: 5 Functional Observation Was the patient's timed Up & Go test unsteady or ? 12 seconds? Yes Advance Care Planning End of Life planning discussed, including patient's advanced directive wishes: Yes Measurements BP 128/70 Pulse 84 Resp 16 Wt 239 lb (108.4kg) Visual acuity (required for Welcome to Medicare): follows with optometry/ophthalmology Hearing Evaluation: within normal limits Assessment/Plan Medicare annual wellness visit, subsequent (Z00.00) - Counseled on healthy diet and regular exercise - Discussed need for and benefit of weight loss. BMI 43.71 kg/(m^2) - Fall avoidance - Depression screening Chief Complaint No chief complaint on file. HPI Derrell German is a 67 year old female who presents here today for Above Complaints.. Patient presents for annual wellness. PMH includes ASHD, Asthma, CHF, DDD, GERD, HLP, HTN, DMII with stage 3 CKD, hypothyroidism. Patient had back surgery in February and is recovering well. Patient feels good and has no current concerns regarding her health. Past medical history, appointments, medications, allergies reviewed. Previous Medical History PAST MEDICAL HISTORY Diagnosis Date Advance directive discussed with patient 04/06/2022 Discussed 04/2022 Allergic rhinitis 02/10/2011 ASHD (arteriosclerotic heart disease) 03/08/[address] [place] Ast[address] Dr[address] 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 History of left heart catheterization HEART CATH X2 STENTS X 3 NASH GARCIA Hyperlipidemia, mixed 06/30/2015 DR HUDSON, Hypertension, essential 06/30/2015 NASH GARCIA CARD- controlled with medication Joint pain PAIN MANAGMENT [facility] Living will on file 04/06/2022 DPA: Ever () Lumbar radiculopathy 04/28/2020 R L4 radiculopathy 04/2020 Medicare annual wellness visit, initial 04/06/2022 Medicare part B: 11/03/2019 Last done: 04/06/2022 Mild intermittent asthma without complication 02/10/2011 DENIES PROBLEMS, DENIES INHALERS Morbid obesity (HCC) 01/10/2012 NATALIE (obstructive sleep apnea) 09/10/2019 On BiPAP and sees VENTURA Schaffer Osteoarthritis of both knees 02/02/2017 PONV (postoperative nausea and vomiting) Postherpetic neuralgia 03/14/2014 Right mid-trunk area. 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 Psoriasis 10/23/2017 Rash bilateral forearms Rosacea 04/19/2013 Shingles 2014 Spinal stenosis of lumbar region without neurogenic claudication 03/19/2021 DR SANDOVAL FOLLOWING Stage 3a chronic kidney disease (HCC) 03/19/2021 GERALD CALHOUN AND WILLARD [facility] Uncontrolled type 2 diabetes mellitus with hyperglycemia ([facility]) 12/24/2019 Seeing GERALD Marte Uses roller walker Vitamin D deficiency 03/19/2021 Wears glasses reading Previous Surgical History PAST SURGICAL HISTORY Procedure Laterality Date ANESTH, HYSTERECTOMY 2000 ANESTHESIA NOSE & ACCESSORY SINUSES NOS 1995 CHOLECYSTECTOMY 1989 COLONOSCOPY FLX DX W/COLLJ SPEC WHEN PFRMD 04/18/2011 X3 HEART CATHETERIZATION 2002 HEART CATH X2 2001 & 2019 STENTS X3 2019 PAST SURGICAL HISTORY OF L. knee PAST SURGICAL HISTORY OF kidney stones PAST SURGICAL HISTORY OF Right 2007 Knee PAST SURGICAL HISTORY OF NERVE STIMULATOR AND REMOVAL MELISSA ORTH REMV CATARACT EXTRACAP,INSERT LENS Bilateral Rt 08/2019, Lt 11/2019 STRESS TEST ADENOSINE 05/11/2013 THYROIDECTOMY TOTAL/COMPLETE 2000 TONSILLECTOMY HX 1963 Family History FAMILY HISTORY Problem Relation Age of Onset Diabetes Mother Thyroid Mother Diabetes Father Diabetes Paternal Aunt Patient Allergies ALLERGIES Allergen Reactions Amlodipine Swelling Diphth,Pertus(Acell* Hives Diflucan [Fluconazo* Hives Actos [Pioglitazone* Other: See Comments Edema BLE AND OLGA HANDS Bactrim [Sulfametho* Hives HIVES Betadine [Povidone-* Anaphylaxis SEVERE ALLERGY TO IODINE AND BETADINE Fish Anaphylaxis ALL FISH Iodine Anaphylaxis IV contrast Lipitor [Atorvastat* Rash, Itching Metformin Diarrhea, GI Upset [place] Anaphylaxis Penicillins Unknown NOT SURE A CHILD Sulfa (Sulfonamide * Swelling SWELLING AND HIVES Current Medications Current Outpatient Medications on File Prior to Visit Medication Sig HYDROcodone-acetaminophen (NORCO) 5-325 mg per tablet Take 1 tablet by mouth every 6 hours as needed. polyethylene glycol 3350 17 gram packet Take 1 Packet by mouth once daily. Dissolve dose in 4 - 8 ounces of liquid and take as directed. acetaminophen (TYLENOL) 500 mg tablet Take 2 tablets by mouth every 6 hours as needed for pain. bisacodyl EC (DULCOLAX) 5 mg EC tablet Take 2 tablets by mouth once daily as needed for constipation. cyclobenzaprine (FLEXERIL) 10 mg tablet Take 1 tablet by mouth three times daily as needed. docusate sodium (COLACE) 100 mg capsule Take 1 capsule by mouth twice daily. ondansetron (ZOFRAN) 4 mg tablet Take 1 tablet by mouth every 6 hours as needed. polyethylene glycol 3350 17 gram packet Take 1 Packet by mouth once daily as needed. Dissolve dose in 4 - 8 ounces of liquid and take as directed. levothyroxine (SYNTHROID) 175 mcg tablet Take 1 tablet by mouth once daily. Mon- Sat and none on Sun. Take on empty stomach. For Thyroid. Per endo: Dr. Marques montelukast (SINGULAIR) 10 mg tablet Take 1 tablet by mouth daily at bedtime. rosuvastatin (CRESTOR) 20 mg tablet Take 1 tablet by mouth once daily. (Patient taking differently:Take 20 mg by mouth every morning.) clobetasol (TEMOVATE) 0.05 % ointment Apply to affected area twice daily. gabapentin (NEURONTIN) 100 mg capsule 300 mg by mouth three times/day calcium carbonate (ANTACID CALCIUM ORAL) Take by mouth as needed. Last dose 02/09 melatonin 10 mg cap Take 5-10 mg by mouth daily at bedtime. BIPAP daily at bedtime. spironolactone (ALDACTONE) 25 mg tablet TAKE 1 TABLET BY MOUTH TWICE DAILY potassium chloride (K-TAB) 10 mEq tablet Take 2 tablets by mouth twice daily. famotidine (PEPCID) 20 mg tablet Take 1 tablet by mouth at bedtime as needed. (Patient taking differently: Take 20 mg by mouth twice daily.) dapagliflozin (FARXIGA) 10 mg tablet Take 10 mg by mouth daily with breakfast. Take 1 tablet daily TRULICITY 3 mg/0.5 mL pen injector Inject 4.5 mg subcutaneously one time a week. Monday furosemide (LASIX) 40 mg tablet Take 1 tablet by mouth twice daily. Per [place] [facility] (Patient taking differently: Take 60 mg by mouth twice daily. NASH GARCIA) EPINEPHrine (EPIPEN) 0.3 mg/0.3 mL auto-injector Use auto-injector x 1 for allergic reaction. (Patient taking differently: Inject 0.3 mg intramuscularly as needed. Use auto-injector x 1 for allergic reaction.) Cholecalciferol, Vitamin D3, 125 mcg (5,000 unit) cap Take 1 capsule by mouth once daily. (Patient taking differently: Take 5,000 Units by mouth every morning. Last dose 02/07/23) isosorbide mononitrate ER (IMDUR) 30 mg 24 hr tablet Take 60 mg by mouth every morning. insulin regular human, CONCENTRATED 500 UNIT/ML, (HUMULIN R) 500 unit/mL soln Inject 15 units ac brkt; 10 unts ac lunch; 15 units ac supper (Patient taking differently: Inject subcutaneously. 175 units before breakfast 175 units before lunch 185 units before dinner 80 units at bedtime Depends on BS tests) nitroglycerin sublingual (NITROQUICK) 0.4 mg SL tablet Dissolve 1 tablet under the tongue every 5 minutes as needed for Chest Pain. flash glucose scanning reader ([employer] 14 DAY READER) misc 1 Device every 2 weeks. metoprolol succinate ER (TOPROL XL) 25 mg 24 hr tablet Take 1 tablet by mouth twice daily. (Patienttaking differently: Take 25 mg by mouth every morning.) No current facility-administered medications on file prior to visit. Social History Social History Tobacco Use Smoking status: Never Passive exposure: Never Smokeless tobacco: Never Vaping Use Vaping Use: Never used Substance Use Topics Alcohol use: Never Drug use: Never Review of Symptoms REVIEW OF SYSTEMS SEE HPI EXAM: BP 128/70 Pulse 84 Resp 16 Wt 108.4 kg (239 lb) BMI 43.71 kg/m General Appearance: Well appearing, alert, in no acute distress, well-hydrated, well nourished.. Skin: Skin color, texture, turgor normal, no suspicious rashes or lesions. Lungs: Lungs clear to auscultation. No wheezing, rhonchi, rales.. Heart: RRR without murmur, gallop, or rubs. No ectopy. Abdomen: Normal abdominal exam, Abdomen soft, non-tender. Bowel sounds normal. No masses, organomegaly. Musculoskeletal: No joint swelling, deformity, or tenderness. Peripheral Pulses: Normal. Neurologic: Gait normal. Reflexes normal and symmetric. Sensation grossly intact.. Health Maintenance List SHINGRIX VACCINE(2 of 3) due on 03/13/2015 MAMMOGRAM due on 07/13/2022 ADVANCE DIRECTIVE DISCUSSION due on 09/04/2022 DEPRESSION ASSESSMENT Never done COVID-19 VACCINE(4 - Additional dose for Kalani series) due on 10/26/2022 DIABETIC FOOT EXAM due on 02/22/2023 URINE ALBUMIN:CREATININE RATIO due on 04/26/2023 INFLUENZA(1) due on 05/05/2023 HBA1C due on 07/19/2023 DILATED RETINAL EXAM due on 08/09/2023 ANNUAL PCP TEAM CHRONIC DISEASE VISIT due on 02/21/2024 BP CONTROLLED (<130/80) due on 02/21/2024 LDL CHOLESTEROL due on 04/18/2024 SERUM CREATININE due on 04/18/2024 DTAP,TDAP,TD(5 - Td or Tdap) due on 06/30/2025 COLORECTAL CANCER SCREENING due on 05/24/2027 BONE DENSITY Completed HEPATITIS C SCREENING Completed PNEUMOCOCCAL: 65+ Completed SPIROMETRY Discontinued Data reviewed Component Latest Ref Rng & Units 04/18/2023 Protein, Total 6.3 - 8.0 g/dL 6.7 Albumin 3.9 - 4.9 g/dL 3.8 (L) Calcium 8.5 - 10.2 mg/dL 9.2 Bilirubin, Total 0.2 - 1.3 mg/dL 0.4 Alkaline Phosphatase 34 - 123 U/L 106 AST 13 - 35 U/L 21 ALT 7 - 38 U/L 10 Glucose 74 - 99 mg/dL 143 (H) BUN 7 - 21 mg/dL 9 Creatinine 0.58 - 0.96 mg/dL 0.90 Sodium 136 - 144 mmol/L 137 Potassium 3.7 - 5.1 mmol/L 4.7 Chloride 97 - 105 mmol/L 101 CO2 22 - 30 mmol/L 22 Anion Gap 9 - 18 mmol/L 14 eGFR >=60 mL/min/1.73m 70 Color Yellow Light Yellow Clarity Clear Clear Glucose, Urine Trace, Negative 4+ (A) Bilirubin, Urine Negative Negative Ketones, Urine Trace, Negative Negative Specific [place], Ur 1.005 - 1.030 1.020 Hemoglobin/Blood,Ur Negative, Trace Negative pH, Urine 5.0 - 8.0 6.0 Protein, Urine Trace, Negative Negative Urobilinogen Negative Negative Nitrites Negative Negative Leukest Negative, 25 Shauna/uL Negative WBC, Urine 0-5 /HPF 0-5 /HPF RBC, Urine 0-3 /HPF 0-3 /HPF Epithelial Cells /HPF Few Total Cholesterol, Nonfasting <200 mg/dL 149 Triglycerides, Nonfasting <150 mg/dL 130 HDL Cholesterol, Nonfasting >39 mg/dL 49 LDL Cholesterol, Nonfasting <100 mg/dL 74 Non HDL Cholesterol, Nonfasting <130 mg/dL 100 VLDL Cholesterol, Nonfasting <30 mg/dL 26 Total Chol/HDL Ratio, Nonfasting <5.10 mg/dL 3.04 LDL/HDL Ratio, Nonfasting <2.54 mg/dL 1.51 Hemoglobin A1C 4.3 - 5.6 % 8.0 (H) Estimated Average Glucose mg/dL 183 Vitamin D 25 Hydroxy 31.0 - 80.0 ng/mL 21.6 (L) TSH 0.270 - 4.200 mIU/L 2.780 ASSESSMENT/PLAN: 1. Medicare annual wellness visit, initial - ICD9: V70.0, ICD10: Z00.00 (primary diagnosis) - Counseled on healthy diet and regular exercise - Calcium intake with supplements or by diet of 1000 mg/day for under 50, 1200- 1500 mg/day for 50+ - Discussed need and benefit for weight loss. BMI 43.71 kg/(m^2) - Depression screening tool completed and reviewed with patient. Based on score and interview, patient is not at risk for depression and recommended no further intervention at this time. - Follow up for annual exam in one year 2. Lumbar radiculopathy - ICD9: 724.4, ICD10: M54.16 Recent surgery - GABAPENTIN 100 MG CAPSULE 3. Seasonal allergic rhinitis due to pollen - ICD9: 477.0, ICD10: J30.1 - MONTELUKAST 10 MG TABLET 4. Benign hypertension - ICD9: 401.1, ICD10: I10 - Controlled - Continue current medications - Recommend home blood pressure monitoring, to bring results to next visit - Encouraged sodium restriction, DASH or Mediterranean diet - Recommend regular aerobic exercise - Discussed need for and benefit of weight loss. BMI 43.71 kg/(m^2) - SPIRONOLACTONE 25 MG TABLET 5. Obesity, Class III, BMI >= 40 - ICD9: 278.01, ICD10: E66.01 Stable 6. Stage 3a chronic kidney disease (HCC) - ICD9: 585.3, ICD10: N18.31 - eGFR: Stable - Counseled on avoiding NSAIDs, adequate hydration - Counseled on low sodium diet 7. Spinal stenosis, lumbar region, with neurogenic claudication - ICD9: 724.03, ICD10: M48.062 - Recently had surgery, improved 8. DDD (degenerative disc disease), lumbar - ICD9: 722.52, ICD10: M51.36 -Recently had surgery , improved -Bone stimulator 9. NATALIE (obstructive sleep apnea) - ICD9: 327.23, ICD10: G47.33 -Bipap compliant 10. Vitamin D deficiency - ICD9: 268.9, ICD10: E55.9 -Restart Vitamin D 11. ASHD (arteriosclerotic heart disease) - ICD9: 414.00, ICD10: I25.10 -Follows with Cardiology 12. Type 2 diabetes mellitus with stage 3a chronic kidney disease, with long- term current use of insulin (HCC) - ICD9: 250.40, 585.3, V58.67, ICD10: E11.22, N18.31, Z79.4 - Worsening control - Continue current medications - eGFR: Stable Likely worsening from surgery and trulicity shortage 13. Mild intermittent asthma without complication - ICD9: 493.90, ICD10: J45.20 - Mild intermittent asthma stable - Continue current medications - Avoidance of triggers recommended 14. Hyperlipidemia, mixed - ICD9: 272.2, ICD10: E78.2 - Controlled - Continue current medications - Counseled on healthy diet and regular exercise 15. Gastroesophageal reflux disease, unspecified whether esophagitis present - ICD9: 530.81, ICD10:K21.9 - Discussed lifestyle modifications including losing weight, limiting caffeine, no meals three hours before sleep, and head of bed elevation 17. Postsurgical hypothyroidism - ICD9: 244.0, ICD10: E89.0 - Instructed patient on importance of taking on an empty stomach either first thing in the morning or at bedtime. - continue current dose of Synthroid 0.157mcg Padmini Anguiano APRN.ENROLLMENT REPRESENTATIVE documented in this encounterThe [facility]08-16-2023 Miscellaneous Notes* Telephone Encounter - Abby Cox RN - 04/19/2023 8:57 AM EDT Pt called and is notified of providers message and instructions. Pt voices understanding. Abby Cox RN * Telephone Encounter - Willard Henriquez MD - 04/19/2023 12:13 AM EDT Let patient know the blood count lab test had to be cancelled because it clotted. I placed a new order for her to get this repeated. documented in this encounterThe [facility]08-16-2023 Evaluation note* Diagnosis Postsurgical hypothyroidism- Primary Stage 3a chronic kidney disease (HCC) Type 2 diabetes mellitus with stage 3a chronic kidney disease, with long-term current use of insulin (HCC) documented in this encounter [facility] History of Present illness Narrative* Ely Merchant Ma - 04/07/2023 12:15 PM EDT Note from pulmonary appointment Scan on 04/06/2023 12:23 PM by ProviderMary PAAndresC: Consultation - Pulmonary documented in this encounterThe [facility]07-24-2023 History of Present illness Narrative* Kay Newman MA - 03/27/2023 3:24 PM EDT Scan on 03/24/2023 2:40 PM by Provider, Mary PAAndresC: Miscellaneous Clinical Documents Kay Newman MA documented in this encounterThe [facility]06-26-2023 NoteHNO ID: [id number] Author: Niesha Vera RN Service: Care Management Author Type: Registered Nurse Type: Care Mgt Progress Note Filed: 02/27/2023 3:12 PM Note Text: CARE MANAGEMENT PROGRESS NOTE SERVICE DATE: 02/27/2023 SERVICE TIME: 1510 LOS: 4 days Presented for sched surgery. Inpt HC Status s/p TLIF L5-S1, PLIF L4-S1, decompression L4-S1, BMA by Dr. Sandoval. Is A/O x4 and usually independent with most ADL's when takes intermittent breaks. Lives with Ever [phone]. Has medical and Rx coverage. PCP is . Surgical Site WNL. FABRICE Drain d/c'd. LSO brace. PT/OT recommend Home with HEP. Has cane and rollator. D/C plan is home with HEP and assistance from S.O. when med cleared. No DME or d/c needs identified at this time. Will cont to follow and assist with safe d/c planning. SIGNATURE: Niesha Vera RN PATIENT NAME: Derrell German DATE: February 27, 2023 TIME: 3:11 PM PAGER/CONTACT #: [phone] HNO ID: [id number] Author: Rui Kimbrough DO Service: Endocrinology Author Type: Physician Type: Progress Notes Filed: 02/27/2023 12:29 PM Note Text: ENDOCRINOLOGY PROGRESS NOTE SERVICE DATE: 02/27/2023 SERVICE TIME: 8:13 AM Requesting Provider: Andrea Sandoval DO Opinion/Advice Regarding: Management of Diabetes Mellitus Type 2 hyperglycemia Service: Endocrinology Consult Service Subjective HPI: Patient admitted for surgery, uses u500 inuslin at home. Managed by Dr. Marques Also on farciga 10mg daily and trulicity 3mg once weekly. Most recent a1c 7.6% per anesthesiology note. Outpatient regimen:u500 pens 185 with breakfast, 175 with lunch and dinner COMPLETE REVIEW OF SYSTEMS: WEIGHT: Stable EYES: Normal HYDRATION: No polydypsia or thirst CARDIAC: No chest pain, dyspnea, palpitations or edema RESPIRATORY: Negative for cough, wheezing or shortness of breath GI: no nausea, fullness, vomiting, diarrhea, constipation, GI bleeding or heartburn : no dysuria, frequency, hesitancy, hematuria, polyuria or nocturia SKIN: normal MUSCULOSKELETAL: No joint pain, stiffness, swelling, cramping or weakness NERVOUS SYSTEM: no numbness, paresthesias, weakness, cramping, burning or dizziness ALL OTHER SYSTEMS: normal Objective PHYSICAL EXAM: General: Well appearing, alert, in no acute distress, well-hydrated, well nourished. Skin: skin color, texture, turgor normal, no rashes or lesions. Head: normocephalic, no masses, lesions, tenderness or abnormalities. Eyes: Anicteric sclera. Pupils are equally round and reactive to light. Extraocular movements are intact. Oropharynx: Lips, mucosa, and tongue normal, teeth and gums normal, oropharynx normal Neck: Supple, no adenopathy; thyroid symmetric, normal size, no bruits Heart: RRR without murmur, gallop, or rubs. No ectopy Abdomen: soft, non-tender, positive bowel sounds Extremities: no edema, no calluses or ulcers present. Peripheral Pulses: posterior tibial and doralis pedis pulses 2+ and symmetrical Laboratory Results: Hemoglobin (g/dL) Date Value 02/26/2023 11.4 03/19/2021 14.0 Hematocrit (%) Date Value 02/26/2023 36.2 03/19/2021 42.8 WBC (k/uL) Date Value 02/26/2023 13.12 03/19/2021 10.84 Platelet Count (k/uL) Date Value 02/26/2023 242 03/19/2021 319 Potassium (mmol/L) Date Value 02/26/2023 4.3 04/05/2021 3.8 K (mmol/L) Date Value 02/22/2022 4.1 Sodium (mmol/L) Date Value 02/26/2023 137 04/05/2021 137 NA (mmol/L) Date Value 02/22/2022 138 Creatinine Date Value 02/26/2023 1.11 mg/dL 02/22/2022 1.10 MG/DL 04/05/2021 0.94 mg/dL BUN Date Value 02/26/2023 19 mg/dL 02/22/2022 15 MG/DL 04/05/2021 16 mg/dL Glucose Date Value 02/26/2023 205 mg/dL 02/22/2022 115 MG/DL 04/05/2021 277 mg/dL INR (no units) Date Value 02/16/2023 1.0 TSH Date Value 06/28/2022 0.335 mIU/L 02/22/2022 0.41 IU/ml 06/08/2021 1.080 uU/mL NT Pro BNP (pg/mL) Date Value 02/16/2023 80 Lipids: Total Cholesterol, Nonfasting (mg/dL) Date Value 03/19/2021 136 Cholesterol (mg/dL) Date Value 02/22/2022 114 HDL Cholesterol (no units) Date Value 02/22/2022 40 HDL Cholesterol, Nonfasting (mg/dL) Date Value 03/19/2021 54 LDL Cholesterol (no units) Date Value 02/22/2022 48 LDL Cholesterol, Nonfasting (mg/dL) Date Value 03/19/2021 56 Triglyceride (no units) Date Value 02/22/2022 131 Triglycerides, Nonfasting (mg/dL) Date Value 03/19/2021 128 Albumin (g/dL) Date Value 09/20/2022 3.9 Bilirubin, Total (mg/dL) Date Value 09/20/2022 0.4 Alkaline Phosphatase (U/L) Date Value 09/20/2022 86 AST (U/L) Date Value 09/20/2022 24 ALT (U/L) Date Value 09/20/2022 12 Protein, Total (g/dL) Date Value 09/20/2022 6.8 No results found for: LVEF Hemoglobin A1C Date Value 11/07/2022 8.7 % 02/22/2022 8.1 % 10/05/2021 9.6 02/25/2020 9.6 09/03/2018 8.8 % 05/18/2017 10.3 12/08/2016 8.9(ext) 08/18/2016 12.3 % Hemoglobin A1c (%) Date Value 12/17/2014 11.7 09/15/2014 11.7 03/14/2014 12.0 HGB A1C (no units) Date Value 12/19/2019 9.1 09/03/2019 9.1 12/07/2018 8.0 04/27/2018 9.6 Most recent labs and imaging results. Assessment/Plan Principal Problem: Spinal stenosis, lumbar region, with neurogenic claudication POA: Yes Assessment AND Plan: Per primary team Diabetes Mellitus: Patient uses u500 at home for management, as well as farxiga and trulicity. Kalina resumed this AM. BS are relatively stable given that patient has not had u500, Has been intermittently receiving insulin doses. Endocrinology needs to be notified if Insulin is being refused/held so appropriate dosing can be done. Patient will need to continue to follow as outpatient with endocrinology Resolved Problems: * No resolved hospital problems. * Physician making all medical decisions/reviewing case and placing orders SIGNATURE (more content not included)...[facility] NoteHNO ID: [id number] Author: Tona Cifuentes APRN.ENROLLMENT REPRESENTATIVE Service: ? Author Type: Nurse Practitioner Type: Progress Notes Filed: 02/26/2023 12:45 PM Note Text: INPATIENT PROGRESS NOTE PRIMARY SERVICE: Hospitalist Subjective EMR and notes reviewed pt seen and examined. No acute events overnight. Up in chair, pain improved. No new complaints. Reports she gets to go home today. INTERVAL HPI: Objective Ms. German is a 67 year old female with history of obesity, diabetes, ASHD, degenerative disc disease, hypertension who presents for decompression of L4-S1. Patient had ongoing hip pain related to stenosis. We have been asked to see postoperatively for medical management. Patient seen lying in bed complains of back pain 03/13. FABRICE drain present. Patient on U500 insulin, consulted endocrine as bs noted in the 300's. Appreciate recommendations. PHYSICAL EXAM: BP 107/49 Pulse 112 Temp (Src) 97.8 (Oral) Resp 16 Ht 5' 2 (1.58m) Wt 239 lb 11.2 oz (108.7kg) SpO2 95% BMI 43.83 kg/(m2). O2 Therapy: Room Air Physical Exam Performed Physical Exam Vitals reviewed. Constitutional: Appearance: She is obese. Cardiovascular: Rate and Rhythm: Normal rate and regular rhythm. Pulses: Normal pulses. Heart sounds: Normal heart sounds. Pulmonary: Effort: Pulmonary effort is normal. Breath sounds: Normal breath sounds. Abdominal: General: Bowel sounds are normal. There is no distension. Palpations: Abdomen is soft. Tenderness: There is no abdominal tenderness. Musculoskeletal: General: No swelling or tenderness. Skin: General: Skin is warm and dry. Comments: BACk dressing intact Neurological: General: No focal deficit present. Mental Status: She is alert and oriented to person, place, and time. Psychiatric: Mood and Affect: Mood normal. Behavior: Behavior normal. DATA: Intake/Output Summary (Last 24 hours) at 02/26/2023 1244 Last data filed at 02/26/2023 0944 Gross per 24 hour Intake 800 ml Output 410 ml Net 390 ml Current Facility-Administered Medications Medication Dose Route Frequency Provider Last Rate Last Admin traMADol 50 mg tab(s) (ULTRAM) 50 mg ORAL q 6 H PRN Andrea Sandoval DO HYDROcodone 5 mg - acetaminophen 325 mg tablet (NORCO) 1 tablet ORAL q 6 H PRN Andrea Sandoval DO keTORolac 30 mg injection (Toradol) 30 mg INTRAVENOUS q 6 H Andrea Sandoval DO 30 mg at 02/26/23 1155 insulin glargine 100 Units pen (long acting) 100 Units SUBCUTANEOUS DAILY (8 AM) Rui Kimbrough DO 100 Units at 02/26/23 0950 insulin lispro 28 Units injection (rapid acting) (HumaLOG) 28 Units SUBCUTANEOUS w MEALS Rui G Kaylan, DO 28 Units at 02/26/23 1151 dapagliflozin 10 mg tab(s) (FARXIGA) 10 mg ORAL DAILY WITH BREAKFAST Cecilia Farfan APRN.ENROLLMENT REPRESENTATIVE 10 mg at 02/26/23 0619 dextrose 40 % 15 g 15 g ORAL PRN Cecilia Farfan APRN.ENROLLMENT REPRESENTATIVE Or glucagon 1 mg injection 1 mg INTRAMUSCULAR PRN Cecilia Farfan APRN.ENROLLMENT REPRESENTATIVE Or dextrose 10% iv bolus 12.5 g INTRAVENOUS PRN Cecilia Farfan APRN.ENROLLMENT REPRESENTATIVE insulin lispro injection (rapid acting) (HumaLOG) SUBCUTANEOUS w MEALS Cecilia Farfan APRN.ENROLLMENT REPRESENTATIVE 4 Units at 02/26/23 1155 insulin lispro injection (rapid acting) (HumaLOG) SUBCUTANEOUS w MEALS Rui Kimbrough DO 4 Units at 02/26/23 1152 insulin lispro injection (rapid acting) (HumaLOG) SUBCUTANEOUS AT BEDTIME Rui Kimbrough DO 2 Units at 02/25/23 205 polyethylene glycol 3350 17 g packet 17 g ORAL DAILY Cecilia Farfan APRN.ENROLLMENT REPRESENTATIVE 17 g at 02/26/23 0953 gabapentin 100 mg cap(s) (NEURONTIN) 100 mg ORAL q 8 H Andrea Sandoval, DO 100 mg at 02/26/23 0620 rosuvastatin 20 mg tab(s) (CRESTOR) 20 mg ORAL DAILY Andrea Sandoval DO 20 mg at 02/26/23 0953 metoprolol succinate ER 25 mg tab(s) (TOPROL XL) 25 mg ORAL DAILY Andrea Sandoval DO 25 mg at 02/26/23 0954 famotidine 20 mg tab(s) (PEPCID) 20 mg ORAL AT BEDTIME PRN Andrea Sandoval DO montelukast 10 mg tab(s) (SINGULAIR) 10 mg ORAL AT BEDTIME Andrea Sandoval DO 10 mg at 02/25/232033 furosemide 40 mg tab(s) (LASIX) 40 mg ORAL BID Andrea Sandoval DO 40 mg at 02/26/2351 melatonin 9 mg tab(s) 9 mg ORAL AT BEDTIME Andrea Sandoval, DO 9 mg at 02/25/232033 potassium chloride ER 20 mEq tab(s) (KLOR-CON M10) 20 mEq ORAL BID Andrea Kandis Sandoval, DO 20 mEq at 02/26/2353 spironolactone 25 mg tab(s) (ALDACTONE) 25 mg ORAL BID Andrea Kandis Sandoval, DO 25 mg at 02/26/23952 levothyroxine (SYNTHROID) tab(s) 175 mcg 175 mcg ORAL DAILY Andrea Sandoval DO 175 mcg at 02/26/2351 cholecalciferol 5,000 Units tab(s) (VITAMIN D3) 5,000 Units ORAL DAILY Andrea Sandoval DO 5,000 Units at 02/26/23 0953 acetaminophen 1,000 mg tab(s) (TYLENOL) 1,000 mg ORAL q 6 H Andrea Sandoval DO 1,000 mg at 02/26/23 1155 cyclobenzaprine 10 mg tab(s) (FLEXERIL) 10 mg ORAL TID PRN Andrea Sandoval DO 10 mg at 02/26/2353 ondansetron 4 mg tab(s) (ZOFRAN) 4 mg ORAL q 6 H PRN Andrea Sandoval, (more content not included)...[facility]06-25-2023 NoteHNO ID: [id number] Author: Andrea Sandoval DO Service: Orthopaedic Surgery Author Type: Physician Type: Progress Notes Filed: 02/26/2023 11:22 AM Note Text: Patient seen and examined. Patient is status post L5-S1 TLIF with posterior lateral fusion with instrumentation L4-S1. Patient is postop day #3. Patient states she is doing fairly well she does have some left groin pain which could be could side up with the TLIF cage and causing some stretch around the L5 nerve root. Otherwise the bigger concern is that PT OT feels that she is very drowsy. Cleared PT OT but she seems drowsy and they are hesitant for her to be discharged today. We will change some of her pain medications She is sitting up in chair vital signs are stable distally she is neurologically intact Plan for this patient is we will change her medications we will have the Hemovac drain pulled today we will see how she does today if she feels better maybe we can discharge patient to home if not we will keep her tonight . And assess her tomorrow.[facility]23 NoteHNO ID: [id number] Author: Tona Cifuentes APRN.ENROLLMENT REPRESENTATIVE Service: ? Author Type: Nurse Practitioner Type: Progress Notes Filed: 02/25/2023 5:14 PM Note Text: INPATIENT PROGRESS NOTE PRIMARY SERVICE: Hospitalist Subjective EMR and notes reviewed pt seen and examined. No acute events overnight. INTERVAL HPI: Objective Ms. German is a 67 year old female with history of obesity, diabetes, ASHD, degenerative disc disease, hypertension who presents for decompression of L4-S1. Patient had ongoing hip pain related to stenosis. We have been asked to see postoperatively for medical management. Patient seen lying in bed complains of back pain 03/13. FABRICE drain present. Patient on U500 insulin, consulted endocrine as bs noted in the 300's. Appreciate recommendations. PHYSICAL EXAM: BP 105/51 Pulse 85 Temp (Src) 98.3 (Oral) Resp 18 Ht 5' 2 (1.58m) Wt 239 lb 11.2 oz (108.7kg) SpO2 93% BMI 43.83 kg/(m2). O2 Therapy: Room Air, Liters: 2 Physical Exam Performed Physical Exam Vitals reviewed. Constitutional: Appearance: She is obese. Cardiovascular: Rate and Rhythm: Normal rate and regular rhythm. Pulses: Normal pulses. Heart sounds: Normal heart sounds. Pulmonary: Effort: Pulmonary effort is normal. Breath sounds: Normal breath sounds. Abdominal: General: Bowel sounds are normal. There is no distension. Palpations: Abdomen is soft. Tenderness: There is no abdominal tenderness. Musculoskeletal: General: No swelling or tenderness. Skin: General: Skin is warm and dry. Comments: BACk dressing intact Neurological: General: No focal deficit present. Mental Status: She is alert and oriented to person, place, and time. Psychiatric: Mood and Affect: Mood normal. Behavior: Behavior normal. DATA: Intake/Output Summary (Last 24 hours) at 02/25/2023 1656 Last data filed at 02/25/2023 1400 Gross per 24 hour Intake -- Output 3865 ml Net -3865 ml Current Facility-Administered Medications Medication Dose Route Frequency Provider Last Rate Last Admin [START ON 02/26/2023] insulin glargine 100 Units pen (long acting) 100 Units SUBCUTANEOUS DAILY (8 AM) Rui Kimbrough DO insulin lispro 28 Units injection (rapid acting) (HumaLOG) 28 Units SUBCUTANEOUS w MEALS Rui Kimbrough DO 28 Units at 02/25/23 1142 dapagliflozin 10 mg tab(s) (FARXIGA) 10 mg ORAL DAILY WITH BREAKFAST Cecilia Farfan APRN.ENROLLMENT REPRESENTATIVE 10 mg at 02/25/23 0830 dextrose 40 % 15 g 15 g ORAL PRN Cecilia Farfan APRN.ENROLLMENT REPRESENTATIVE Or glucagon 1 mg injection 1 mg INTRAMUSCULAR PRN Cecilia Farfan APRN.ENROLLMENT REPRESENTATIVE Or dextrose 10% iv bolus 12.5 g INTRAVENOUS PRN Cecilia Farfan APRN.ENROLLMENT REPRESENTATIVE insulin lispro injection (rapid acting) (HumaLOG) SUBCUTANEOUS w MEALS Cecilia Farfan APRN.ENROLLMENT REPRESENTATIVE 6 Units at 02/25/23 1147 insulin lispro injection (rapid acting) (HumaLOG) SUBCUTANEOUS w MEALS Rui Kimbrough DO 6 Units at 02/25/23 1145 insulin lispro injection (rapid acting) (HumaLOG) SUBCUTANEOUS AT BEDTIME Rui Kimbrough DO 4 Units at 02/24/232007 polyethylene glycol 3350 17 g packet 17 g ORAL DAILY Cecilia Farfan APRN.ENROLLMENT REPRESENTATIVE 17 g at 02/25/23 0832 gabapentin 100 mg cap(s) (NEURONTIN) 100 mg ORAL q 8 H Andrea Sandoval DO 100 mg at 02/25/23 0454 rosuvastatin 20 mg tab(s) (CRESTOR) 20 mg ORAL DAILY Andrea Sandoval DO 20 mg at 02/25/23 0830 metoprolol succinate ER 25 mg tab(s) (TOPROL XL) 25 mg ORAL DAILY Andrea Sandoval DO 25 mg at 02/25/23 0831 famotidine 20 mg tab(s) (PEPCID) 20 mg ORAL AT BEDTIME PRN Andrea J Stefanko, DO montelukast 10 mg tab(s) (SINGULAIR) 10 mg ORAL AT BEDTIME Andrea Kandis Garciako, DO 10 mg at 02/24/232007 furosemide 40 mg tab(s) (LASIX) 40 mg ORAL BID Andrea Kandis Garciako, DO 40 mg at 02/25/23 0831 melatonin 9 mg tab(s) 9 mg ORAL AT BEDTIME Andrea Kandis Sandoval, DO 9 mg at 02/24/232006 potassium chloride ER 20 mEq tab(s) (KLOR-CON M10) 20 mEq ORAL BID Andrea Kandis Garciako, DO 20 mEq at 02/25/23 0830 spironolactone 25 mg tab(s) (ALDACTONE) 25 mg ORAL BID Andrea Kandis Garciako, DO 25 mg at 02/25/23 0831 levothyroxine (SYNTHROID) tab(s) 175 mcg 175 mcg ORAL DAILY Andrea Kandis Sandoval, DO 175 mcg at 02/25/23 0831 cholecalciferol 5,000 Units tab(s) (VITAMIN D3) 5,000 Units ORAL DAILY Andrea Kandis Garciako, DO 5,000 Units at 02/25/23 0830 acetaminophen 1,000 mg tab(s) (TYLENOL) 1,000 mg ORAL q 6 H Andrea Garciako, DO 1,000 mg at 02/25/23 1139 HYDROmorphone HCl 1 mg injection (DILAUDID) 1 mg INTRAVENOUS q 2 H PRN Andrea Garciako, DO 1 mg at 02/25/23 0034 oxyCODONE IR 5-10 mg tab(s) (ROXICODONE) 5-10 mg ORAL q 6 H PRN Andrea Grayfanko, DO 10 mg at 02/25/23 1139 cyclobenzaprine 10 mg tab(s) (FLEXERIL) 10 mg ORAL TID PRN Andrea Garciako, DO 10 mg at 02/24/232007 ondansetron 4 mg tab(s) (ZOFRAN) 4 mg ORAL q 6 H PRN Andrea Sandoval, DO Or ondansetron (PF) 4 mg injection (ZOFRAN) 4 mg INTRAVENOUS q 6 H PRN Andrea Garciako, DO docusate sodium 100 mg cap(s) (CO (more content not included)...[facility]06-24-2023 NoteHNO ID: [id number] Author: Rianna Forbes PA-C Service: Orthopaedic Surgery Author Type: Physician Contract Lead Type: Progress Notes Filed: 02/25/2023 10:34 AM Note Text: ORTHO SPINE INPATIENT PROGRESS NOTE SERVICE DATE: 02/25/2023 SERVICE TIME: 10:20 AM PRIMARY SERVICE: ORTHO SPINE Subjective CHIEF COMPLAINT: back pain INTERVAL HPI: Patient with increased pain overnight. She states all day yesterday she only took Tylenol, and then the pain got ahead of her. She started with oxycodone overnight and now feels much more comfortable. She is sitting up in a chair, but states she feels very exhausted because she just got done working with therapy. Denies any leg pain or weakness. Current Facility-Administered Medications Medication Dose Route Frequency gabapentin 100 mg cap(s) (NEURONTIN) 100 mg ORAL q 8 H rosuvastatin 20 mg tab(s) (CRESTOR) 20 mg ORAL DAILY metoprolol succinate ER 25 mg tab(s) (TOPROL XL) 25 mg ORAL DAILY famotidine 20 mg tab(s) (PEPCID) 20 mg ORAL AT BEDTIME PRN montelukast 10 mg tab(s) (SINGULAIR) 10 mg ORAL AT BEDTIME furosemide 40 mg tab(s) (LASIX) 40 mg ORAL BID melatonin 9 mg tab(s) 9 mg ORAL AT BEDTIME potassium chloride ER 20 mEq tab(s) (KLOR-CON M10) 20 mEq ORAL BID spironolactone 25 mg tab(s) (ALDACTONE) 25 mg ORAL BID levothyroxine (SYNTHROID) tab(s) 175 mcg 175 mcg ORAL DAILY cholecalciferol 5,000 Units tab(s) (VITAMIN D3) 5,000 Units ORAL DAILY acetaminophen 1,000 mg tab(s) (TYLENOL) 1,000 mg ORAL q 6 H HYDROmorphone HCl 1 mg injection (DILAUDID) 1 mg INTRAVENOUS q 2 H PRN oxyCODONE IR 5-10 mg tab(s) (ROXICODONE) 5-10 mg ORAL q 6 H PRN cyclobenzaprine 10 mg tab(s) (FLEXERIL) 10 mg ORAL TID PRN ondansetron 4 mg tab(s) (ZOFRAN) 4 mg ORAL q 6 H PRN Or ondansetron (PF) 4 mg injection (ZOFRAN) 4 mg INTRAVENOUS q 6 H PRN docusate sodium 100 mg cap(s) (COLACE) 100 mg ORAL BID polyethylene glycol 3350 17 g packet 17 g ORAL DAILY PRN bisacodyl EC 10 mg tab(s) (DULCOLAX) 10 mg ORAL DAILY lactated ringers iv infusion 75 mL/hr INTRAVENOUS CONTINUOUS dapagliflozin 10 mg tab(s) (FARXIGA) 10 mg ORAL DAILY WITH BREAKFAST dextrose 40 % 15 g 15 g ORAL PRN Or glucagon 1 mg injection 1 mg INTRAMUSCULAR PRN Or dextrose 10% iv bolus 12.5 g INTRAVENOUS PRN insulin lispro injection (rapid acting) (HumaLOG) SUBCUTANEOUS w MEALS insulin lispro injection (rapid acting) (HumaLOG) SUBCUTANEOUS w MEALS insulin lispro injection (rapid acting) (HumaLOG) SUBCUTANEOUS AT BEDTIME polyethylene glycol 3350 17 g packet 17 g ORAL DAILY [START ON 02/26/2023] insulin glargine 100 Units pen (long acting) 100 Units SUBCUTANEOUS DAILY (8 AM) insulin lispro 28 Units injection (rapid acting) (HumaLOG) 28 Units SUBCUTANEOUS w MEALS Objective PHYSICAL EXAM: BP 111/48 Pulse 101 Temp (Src) 98.2 (Oral) Resp 16 Ht 5' 2 (1.58m) Wt 239 lb 11.2 oz (108.7kg) SpO2 94% BMI 43.83 kg/(m2). O2 Therapy: Room Air, Liters: 2 Physical Exam Performed GENERAL: Alert, no distress, cooperative NEURO: Moves all extremities well x4 WOUND: Clean, dry and intact, drain: 30+10+25= 65 cc DATA: Diagnostic tests reviewed for today's visit: Latest Reference Range AND Units 02/25/23 05:16 Sodium 136 - 145 mmol/L 141 Potassium 3.5 - 5.1 mmol/L 4.3 Chloride 98 - 107 mmol/L 99 CO2 21 - 32 mmol/L 34 (H) BUN 7 - 26 mg/dL 17 Creatinine 0.51 - 0.95 mg/dL 1.16 (H) Glucose 70 - 100 mg/dL 268 (H) Calcium 8.5 - 10.5 mg/dL 8.7 Anion Gap 5 - 16 mmol/L 8 eGFR >=60 mL/min/1.73m? 51 (L) WBC 3.70 - 11.00 k/uL 14.25 (H) RBC 3.90 - 5.20 m/uL 4.12 Hemoglobin 11.5 - 15.5 g/dL 11.3 (L) Hematocrit 36.0 - 46.0 % 36.5 Platelet Count 150 - 400 k/uL 220 MCV 80.0 - 100.0 fL 88.6 MCH 26.0 - 34.0 pg 27.4 MCHC 30.5 - 36.0 g/dL 31.0 MPV 9.0 - 12.7 fL 9.2 RDW-CV 11.5 - 15.0 % 14.0 Absolute nRBC <0.01 k/uL <0.01 (H): Data is abnormally high (L): Data is abnormally low Assessment/Plan Principal Problem: Spinal stenosis, lumbar region, with neurogenic claudication POA: Yes Assessment AND Plan: 67-year-old female status post L5-S1 TLIF, L4-S1 PLF with instrumentation and decompression, BMA by Dr. Sandoval on 02/23/23, POD#2. -Neuro status stable -Continue Hemovac drain; likely discontinue later today. -Increase activity with PT/OT with LSO brace on when out of bed. -Discharge planning: Possibly today vs tomorrow. Active Problems: Obesity, Class III, BMI >= 40 POA: Unknown Assessment AND Plan: Per internal medicine Spondylolisthesis of lumbar region POA: Yes Assessment AND Plan: See above Other intervertebral disc displacement, lumbosacral region POA: Yes Assessment AND Plan: See above Other intervertebral disc degeneration, lumbar region POA: Yes Assessment AND Plan: See above Spinal stenosis, lumbar region with neurogenic claudication POA: Yes Assessment AND Plan: See above Resolved Problems: * No resolved hospital problems. * Medication and Non-Pharmacologic (more content not included)...[facility]06-23-2023 NoteHNO ID: [id number] Author: Niesha Vera RN Service: Care Management Author Type: Registered Nurse Type: Care Mgt Progress Note Filed: 02/24/2023 2:34 PM Note Text: CARE MANAGEMENT PROGRESS NOTE SERVICE DATE: 02/24/2023 SERVICE TIME: 1430 LOS: 1 day Presented for sched surgery. Inpt HC Status s/p TLIF L5-S1, PLIF L4-S1, decompression L4-S1, BMA by Dr. Sandoval. Is A/O x4 and usually independent with most ADL's when takes intermittent breaks. Lives with Ever [phone]. Has medical and Rx coverage. PCP is . Surgical Site WNL. FABRICE Drain Patent. LSO brace. PT/OT recommend Home with HEP. Has cane and rollator. D/C plan is home with HEP and assistance from S.O. when med cleared. No DME or d/c needs identified at this time. Will cont to follow and assist with safe d/c planning. SIGNATURE: Niesha Vera RN PATIENT NAME: Derrell German DATE: February 24, 2023 TIME: 2:31 PM PAGER/CONTACT #: [phone] HNO ID: [id number] Author: Rianna Forbes PA-C Service: Orthopaedic Surgery Author Type: Physician Contract Lead Type: Progress Notes Filed: 02/24/2023 7:57 AM Note Text: ORTHO SPINE INPATIENT PROGRESS NOTE SERVICE DATE: 02/24/2023 SERVICE TIME: 7:42 AM PRIMARY SERVICE: ORTHO SPINE Subjective CHIEF COMPLAINT: back pain INTERVAL HPI: No acute events overnight. Patient is having a lot of back pain today. She has not been out of bed yet. She denies any leg pain. Current Facility-Administered Medications Medication Dose Route Frequency gabapentin 100 mg cap(s) (NEURONTIN) 100 mg ORAL q 8 H rosuvastatin 20 mg tab(s) (CRESTOR) 20 mg ORAL DAILY metoprolol succinate ER 25 mg tab(s) (TOPROL XL) 25 mg ORAL DAILY famotidine 20 mg tab(s) (PEPCID) 20 mg ORAL AT BEDTIME PRN montelukast 10 mg tab(s) (SINGULAIR) 10 mg ORAL AT BEDTIME furosemide 40 mg tab(s) (LASIX) 40 mg ORAL BID melatonin 9 mg tab(s) 9 mg ORAL AT BEDTIME potassium chloride ER 20 mEq tab(s) (KLOR-CON M10) 20 mEq ORAL BID spironolactone 25 mg tab(s) (ALDACTONE) 25 mg ORAL BID levothyroxine (SYNTHROID) tab(s) 175 mcg 175 mcg ORAL DAILY cholecalciferol 5,000 Units tab(s) (VITAMIN D3) 5,000 Units ORAL DAILY acetaminophen 1,000 mg tab(s) (TYLENOL) 1,000 mg ORAL q 6 H HYDROmorphone HCl 1 mg injection (DILAUDID) 1 mg INTRAVENOUS q 2 H PRN oxyCODONE IR 5-10 mg tab(s) (ROXICODONE) 5-10 mg ORAL q 6 H PRN cyclobenzaprine 10 mg tab(s) (FLEXERIL) 10 mg ORAL TID PRN ondansetron 4 mg tab(s) (ZOFRAN) 4 mg ORAL q 6 H PRN Or ondansetron (PF) 4 mg injection (ZOFRAN) 4 mg INTRAVENOUS q 6 H PRN docusate sodium 100 mg cap(s) (COLACE) 100 mg ORAL BID polyethylene glycol 3350 17 g packet 17 g ORAL DAILY PRN [START ON 02/25/2023] bisacodyl EC 10 mg tab(s) (DULCOLAX) 10 mg ORAL DAILY lactated ringers iv infusion 75 mL/hr INTRAVENOUS CONTINUOUS ceFAZolin iv piggyback 2 g in D5W (iso-osmotic) 100 mL (ANCEF) 2 g INTRAVENOUS q 8 HR dapagliflozin 10 mg tab(s) (FARXIGA) 10 mg ORAL DAILY WITH BREAKFAST insulin regular human (CONCENTRATED 500 UNIT/ML) 10-15 Units injection (HumuLIN R) 10-15 Units SUBCUTANEOUS AC and HS dextrose 40 % 15 g 15 g ORAL PRN Or glucagon 1 mg injection 1 mg INTRAMUSCULAR PRN Or dextrose 10% iv bolus 12.5 g INTRAVENOUS PRN insulin lispro injection (rapid acting) (HumaLOG) SUBCUTANEOUS w MEALS Objective PHYSICAL EXAM: BP 143/61 Pulse 100 Temp (Src) 97.6 (Oral) Resp 18 Ht 5' 2 (1.58m) Wt 239 lb 11.2 oz (108.7kg) SpO2 95% BMI 43.83 kg/(m2). O2 Therapy: Room Air, Liters: 2 Physical Exam Performed GENERAL: Alert, no distress, cooperative NEURO: Moves all extremities well x4, strength within normal limits WOUND: Clean, dry and intact, drain: 30 cc DATA: Diagnostic tests reviewed for today's visit: Latest Reference Range AND Units 6/23/23 06:01 Sodium 136 - 145 mmol/L 137 Potassium 3.5 - 5.1 mmol/L 5.2 (H) Chloride 98 - 107 mmol/L 101 CO2 21 - 32 mmol/L 29 BUN 7 - 26 mg/dL 16 Creatinine 0.51 - 0.95 mg/dL 0.97 (H) Glucose 70 - 100 mg/dL 366 (H) Calcium 8.5 - 10.5 mg/dL 8.6 Anion Gap 5 - 16 mmol/L 7 eGFR >=60 mL/min/1.73m? 64 WBC 3.70 - 11.00 k/uL 15.42 (H) RBC 3.90 - 5.20 m/uL 4.19 Hemoglobin 11.5 - 15.5 g/dL 11.6 Hematocrit 36.0 - 46.0 % 36.1 Platelet Count 150 - 400 k/uL 255 MCV 80.0 - 100.0 fL 86.2 MCH 26.0 - 34.0 pg 27.7 MCHC 30.5 - 36.0 g/dL 32.1 MPV 9.0 - 12.7 fL 8.9 (L) RDW-CV 11.5 - 15.0 % 13.8 Absolute nRBC <0.01 k/uL <0.01 (H): Data is abnormally high (L): Data is abnormally low Assessment/Plan Principal Problem: Spinal stenosis, lumbar region, with neurogenic claudication POA: Yes Assessment AND Plan: 67-year-old female status post L5-S1 TLIF, L4-S1 PLF with instrumentation and decompression, BMA by Dr. Sandoval on 02/23/23, POD#1. -Neuro status stable -Continue Hemovac drain -Increase activity with PT/OT with LSO brace on when out of bed. -Discharge planning: Likely 1 to 2 days Active Problems: Obesity, Class III, BMI >= 40 POA: Unknown Assessment AND Plan: Per internal medicine Spondylolisthesis of lumbar region POA: Yes Assessment AND Plan: See above Other intervertebral disc displacement, lumbosacral region POA: Yes Assessment AND Plan: See above Other intervertebral disc degeneration, lumbar region POA: Yes Assessment AND Plan: See above Spinal stenosis, lumbar region with neurogenic claudication POA: Yes Assessment AND Plan: See above Resolved Problems: * No resolved hospital problems. * Medication and Non-Pharmacologic VTE Prophylaxis/Anticoagulants 02/23/232129 vte pharmacologic prophylaxis contraindicated (fl,oh) 02/23/232129 pneumatic compression stockings (id,oh) 02/23/232129 graduated compression stockings (id,oh) 02/23/232129 activity - mobilize patient (id,oh) VTE Prophylaxis: VTE prophylaxis appropriate SIGNATURE: Rianna Forbes PA-C PATIENT NAME: Derrell German DATE: February 24, 2023 TIME (more content not included)...[facility]06-22-2023 NoteHNO ID: [id number] Author: Asia Sanz APRN.CRNA Service: ? Author Type: Nurse Low Heel Builder Type: Anesthesia Procedure Notes Filed: 02/23/2023 3:26 PM Note Text: ANESTHESIOLOGY PROCEDURE NOTE Airway General Information Procedure Start Time/Medication Administration: 02/23/2023 2:47 PM Patient location during procedure: OR Timeout Performed Pre-procedure: timeout performed Consent Obtained: Yes Patient identity confirmed: care steam tender and patient Staffing Anesthesiologist: Rahul Villalobos DO MORTGAGE BRANCH MANAGER: Asia Sanz APRN.MORTGAGE BRANCH MANAGER Performed by: UCHE Indications and Patient Condition Indications for airway management: anesthesia and airway protection Preoxygenated: yes anesthesia circuit Patient position: sniffing Method: asleep Cricoid Pressure: Yes Manual In-Line Stabilization: Yes Difficult Mask: No Final Airway Details Final airway type: endotracheal airway Final Endotracheal Airway: ETT Cuffed: yes Successful intubation technique: direct laryngoscopy Devices used: intubating stylet Endotracheal tube insertion site: oral Blade: Bety Blade size: #3 ETT size (mm): 7.0 Measured from: lips Measurement (cm): 22 Placement verified by: chest auscultation and capnometry Cormack-Lehane Classification: grade IIa - partial view of glottis Number of attempts at approach: 1 Failed airway: no Unrecognized esophageal intubation: no Airway not difficult SIGNATURE: Asia Sanz APRN.CRNA PATIENT NAME: Derrell German DATE: February 23, 2023 TIME: 3:24 PM CSN: [id number] NoteHNO ID: [id number] Author: Erin Petit RN Service: Nursing Author Type: Registered Nurse Type: Progress Notes Filed: 02/22/2023 2:50 PM Note Text: PRE-PROCEDURE INSTRUCTIONS TO PREPARE FOR YOUR PROCEDURE: Your arrival time for your procedure is 0745. Do NOT eat any solid foods after MIDNIGHT the night prior to your procedure - this includes gum or mints. You can drink clear liquids* up until 0545, which is 2 hours before your arrival time. *Clear liquids = water, carbohydrate drink (sports drink that is clear or yellow in color), Ensure Pre-Surgery (given by MAZIN or monique López), fruit juice without pulp (apple/cranberry), clear tea, black coffee (no cream). NO CARBONATED BEVERAGES AND NO ALCOHOL. Shower the morning of the procedure, put on clean clothes, and have clean sheets for your bed to help prevent infection after your procedure. Leave all valuables such as jewelry including rings, piercings, wallets, and purses at home. Wear comfortable, loose-fitting clothing. If you wear glasses or contacts, please bring a case. SPECIAL INSTRUCTIONS: If instructed, bring your first voided urine specimen with you. If you were provided skin preparation to use prior to your procedure, complete this as directed. If you were provided Ensure Pre-Surgery drink, you need to drink this at N/A. This should be consumed quickly (in less than 5 minutes, rather than sipped over time) If you use crutches or a walker, bring them with you. If you have a home CPAP/BIPAP machine, bring it with you. If you were instructed to complete a fleets enema or bowel prep, complete as directed. Bring copy of Living Will/Power of Marketing Area Manager. Do not smoke or chew. If you use tobacco, quit or at least cut down before surgery. Do not smoke or chew after midnight the day before your surgery. This effects bleeding, infection, healing, and so much more. Do not take any Diet or Herbal Supplements 2 weeks prior to your surgery date. Please notify your physician if there is any change in your physical condition such as a cold, cough, fever, sore throat, or skin irritation near the surgical site. Visitors under the age of 14 are restricted in the Surgery Center. UPON ARRIVAL: Access to [facility] ([facility]) is located on [address] [employer] parking is available for your convenience from 5am-5pm- there is a $5.00 charge for this service. Take the elevators directly inside the entrance to the 1st Floor Surgery Lobby. Sign in at the podium located to the left when you get off the elevators. A payment may be expected at the time of service. One visitor may come back to the preoperative area with you. The preoperative staff will be reviewing your medical history, please let them know if you prefer not to have a visitor with you during this time. Once you are ready for surgery, two visitors at a time are permitted in your preoperative room. PATIENT MEDICATION INSTRUCTIONS Please read below carefully for your personalized instructions. Medications: If you are on blood thinner or anticoagulants including aspirin, please confirm with your surgical team on when to stop these medications. Unless instructed differently by your surgical team, stay on all of your medications until your surgery. Pre-Surgery Med Instructions Medication Instructions rosuvastatin (CRESTOR) 20 mg tablet Take morning of surgery with a sip of water, no other fluids clobetasol (TEMOVATE) 0.05 % ointment DO NOT TAKE MORNING OF SURGERY gabapentin (NEURONTIN) 100 mg capsule Take morning of surgery with a sip of water, no other fluids acetaminophen (TYLENOL) 500 mg tablet DO NOT TAKE MORNING OF SURGERY ibuprofen (MOTRIN) 200 mg tablet DO NOT TAKE MORNING OF SURGERY calcium carbonate (ANTACID CALCIUM ORAL) DO NOT TAKE MORNING OF SURGERY HYDROcodone-acetaminophen (NORCO) 5-325 mg per tablet PRN if needed melatonin 10 mg cap DO NOT TAKE MORNING OF SURGERY BIPAP Bring with you spironolactone (ALDACTONE) 25 mg tablet DO NOT TAKE MORNING OF SURGERY potassium chloride (K-TAB) 10 mEq tablet DO NOT TAKE MORNING OF SURGERY levothyroxine (SYNTHROID) 175 mcg tablet Take morning of surgery with a sip of water, no other fluids famotidine (PEPCID) 20 mg tablet Take morning of surgery with a sip of water, no other fluids dapagliflozin (FARXIGA) 10 mg tablet DO NOT TAKE MORNING OF SURGERY TRULICITY 3 mg/0.5 mL pen injector DO NOT TAKE MORNING OF SURGERY furosemide (LASIX) 40 mg tablet DO NOT TAKE MORNING OF SURGERY EPINEPHrine (EPIPEN) 0.3 mg/0.3 mL auto-injector PRN if needed Cholecalciferol, Vitamin D3, 125 mcg (5,000 unit) cap DO NOT TAKE MORNING OF SURGERY isosorbide mononitrate ER (IMDUR) 30 mg 24 hr tablet Take morning of surgery with a sip of water, no other fluids insulin regular human, CONCENTRATED 500 UNIT/ML, (HUMULIN R) 500 unit/mL soln DO NOT TAKE MORNING OF SURGERY nitroglycerin (more content not included)...[facility]06-20-2023 Note HNO ID: [id number] Author: Karen Foster MD Service: ? Author Type: Physician Type: Progress Notes Filed: 02/21/2023 3:35 PM Note Text: Summary: ENDO and CARDIAC CLEARANCES: Endo: Jorje Jerald - A1C 7.6, cleared Moodispaw: 5 day hold on DAPT, [facility]06-20-2023 Miscellaneous Notes* Telephone Encounter - Love Freeman LPN - 02/21/2023 12:20 PM EDT Pre-op clearance forms and info have been faxed back to [employer] [phone]. Love Freeman LPN documented in [facility]The [facility] Instructions* Patient Instructions* Willard Henriquez MD - 02/20/2023 4:10 PM EDT Please start over the counter Claritin 10 mg a day documented in this encounterThe [facility] History of Present illness Narrative* Willard Henriquez MD - 02/20/2023 3:44 PM EDT Chief Complaint Patient presents with: Pre-Op Exam HPI Derrell German is a 67 year old female who presents here today for Above Complaints.. Patient has a Hx of lumbar spinal stenosis and is scheduled to have a left L5-S1 trans foraminal lumbar interbody fusion on 02/23/[address] Sandoval. Patient has already seen by Endo and cardio and cleared for surgery on 02/09/2023 and copies of reports in chart.. Patient has been doing ok other then the back issues. Last A1c was 7.6 early February. Past medical history, appointments, medications, allergies reviewed. Previous Medical History PAST MEDICAL HISTORY Diagnosis Date Advance directive discussed with patient 04/06/2022 Discussed 04/2022 Allergic rhinitis 02/10/2011 ASHD (arteriosclerotic heart disease) 03/08/[address] [place] Asthma Dr[address] 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 History of left heart catheterization HEART CATH X2 STENTS X 3 NASH GARCIA Hyperlipidemia, mixed 06/30/2015 DR HUDSON, Hypertension, essential 06/30/2015 NASH GARCIA CARD- controlled with medication Joint pain PAIN MANAGMENT WILLARD CRUZ Living will on file 04/06/2022 DPA: Ever () Lumbar radiculopathy 04/28/2020 R L4 radiculopathy 04/2020 Medicare annual wellness visit, initial 04/06/2022 Medicare part B: 11/03/2019 Last done: 04/06/2022 Mild intermittent asthma without complication 02/10/2011 DENIES PROBLEMS, DENIES INHALERS Morbid obesity (HCC) 01/10/2012 NATALIE (obstructive sleep apnea) 09/10/2019 On BiPAP and sees VENTURA Schaffer Osteoarthritis of both knees 02/02/2017 PONV (postoperative nausea and vomiting) Postherpetic neuralgia 03/14/2014 Right mid-trunk area. 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 Psoriasis 10/23/2017 Rash bilateral forearms Rosacea 04/19/2013 Shingles 2014 Spinal stenosis of lumbar region without neurogenic claudication 03/19/2021 DR SANDOVAL FOLLOWING Stage 3a chronic kidney disease ([facility]) 03/19/2021 GERALD CALHOUN AND WILLARD HARRINGTON Uncontrolled type 2 diabetes mellitus with hyperglycemia ([facility]) 12/24/2019 Seeing GERALD Marte Uses roller walker Vitamin D deficiency 03/19/2021 Wears glasses reading Previous Surgical History PAST SURGICAL HISTORY Procedure Laterality Date ANESTH, HYSTERECTOMY 2000 ANESTHESIA NOSE & ACCESSORY SINUSES NOS 1995 CHOLECYSTECTOMY 1989 COLONOSCOPY FLX DX W/COLLJ SPEC WHEN PFRMD 04/18/2011 X3 HEART CATHETERIZATION 2001 HEART CATH X2 2001 & 2019 STENTS X3 2019 PAST SURGICAL HISTORY OF L. knee PAST SURGICAL HISTORY OF kidney stones PAST SURGICAL HISTORY OF Right 2007 Knee PAST SURGICAL HISTORY OF NERVE STIMULATOR AND REMOVAL MELISSA ORTH REMV CATARACT EXTRACAP,INSERT LENS Bilateral Rt 08/2019, Lt 11/2019 STRESS TEST ADENOSINE 05/11/2013 THYROIDECTOMY TOTAL/COMPLETE 2000 TONSILLECTOMY HX 1963 Family History FAMILY HISTORY Problem Relation Age of Onset Diabetes Mother Thyroid Mother Diabetes Father Diabetes Paternal Aunt Patient Allergies ALLERGIES Allergen Reactions Amlodipine Swelling Diphth,Pertus(Acell* Hives Diflucan [Fluconazo* Hives Actos [Pioglitazone* Other: See Comments Edema BLE AND OLGA HANDS Bactrim [Sulfametho* Hives HIVES Betadine [Povidone-* Anaphylaxis SEVERE ALLERGY TO IODINE AND BETADINE Fish Anaphylaxis ALL FISH Iodine Anaphylaxis IV contrast Lipitor [Atorvastat* Rash, Itching Metformin Diarrhea, GI Upset [place] Anaphylaxis Penicillins Unknown NOT SURE A CHILD Sulfa (Sulfonamide * Swelling SWELLING AND HIVES Current Medications Current Outpatient Medications on File Prior to Visit Medication Sig rosuvastatin (CRESTOR) 20 mg tablet Take 1 tablet by mouth once daily. (Patient taking differently:Take 20 mg by mouth every morning.) clobetasol (TEMOVATE) 0.05 % ointment Apply to affected area twice daily. gabapentin (NEURONTIN) 100 mg capsule 300 mg by mouth three times/day acetaminophen (TYLENOL) 500 mg tablet Take 500 mg by mouth every 8 hours as needed. ibuprofen (MOTRIN) 200 mg tablet Take 200 mg by mouth every 6 hours as needed. Last dose 02/07/23 calcium carbonate (ANTACID CALCIUM ORAL) Take by mouth as needed. Last dose 02/09 melatonin 10 mg cap Take 5-10 mg by mouth daily at bedtime. BIPAP daily at bedtime. spironolactone (ALDACTONE) 25 mg tablet TAKE 1 TABLET BY MOUTH TWICE DAILY potassium chloride (K-TAB) 10 mEq tablet Take 2 tablets by mouth twice daily. famotidine (PEPCID) 20 mg tablet Take 1 tablet by mouth at bedtime as needed. (Patient taking differently: Take 20 mg by mouth twice daily.) dapagliflozin (FARXIGA) 10 mg tablet Take 10 mg by mouth daily with breakfast. Take 1 tablet daily TRULICITY 3 mg/0.5 mL pen injector Inject 4.5 mg subcutaneously one time a week. Monday furosemide (LASIX) 40 mg tablet Take 1 tablet by mouth twice daily. Per Melissa Cardio (Patient taking differently: Take 60 mg by mouth twice daily. NASH GARCIA) EPINEPHrine (EPIPEN) 0.3 mg/0.3 mL auto-injector Use auto-injector x 1 for allergic reaction. (Patient taking differently: Inject 0.3 mg intramuscularly as needed. Use auto-injector x 1 for allergic reaction.) Cholecalciferol, Vitamin D3, 125 mcg (5,000 unit) cap Take 1 capsule by mouth once daily. (Patient taking differently: Take 5,000 Units by mouth every morning. Last dose 02/07/23) isosorbide mononitrate ER (IMDUR) 30 mg 24 hr tablet Take 60 mg by mouth every morning. insulin regular human, CONCENTRATED 500 UNIT/ML, (HUMULIN R) 500 unit/mL soln Inject 15 units ac brkt; 10 unts ac lunch; 15 units ac supper (Patient taking differently: Inject subcutaneously. 175 units before breakfast 175 units before lunch 185 units before dinner 80 units at bedtime Depends on BS tests) nitroglycerin sublingual (NITROQUICK) 0.4 mg SL tablet Dissolve 1 tablet under the tongue every 5 minutes as needed for Chest Pain. flash glucose scanning reader ([employer] OCTAVIA 14 DAY READER) misc 1 Device every 2 weeks. aspirin 81 mg chewable tablet Take 81 mg by mouth every morning. HOLD 5 DAYS PRE OP PER DR SANDOVAL, AND DR HUDSON'S office is aware clopidogrel (PLAVIX) 75 mg tablet Take 75 mg by mouth every morning. HOLD 5 DAYS PRE OP PER DR SANDOVAL AND NASH GARCIA metoprolol succinate ER (TOPROL XL) 25 mg 24 hr tablet Take 1 tablet by mouth twice daily. (Patienttaking differently: Take 25 mg by mouth every morning.) HYDROcodone-acetaminophen (NORCO) 5-325 mg per tablet Take 1 tablet by mouth every 8 hours as needed for pain. No current facility-administered medications on file prior to visit. Social History Social History Tobacco Use Smoking status: Never Passive exposure: Never Smokeless tobacco: Never Vaping Use Vaping Use: Never used Substance Use Topics Alcohol use: Never Drug use: Never Review of Symptoms REVIEW OF SYSTEMS GENERAL: No weight loss, malaise or fevers HEENT: Negative for frequent or significant headaches, No changes in hearing or vision patient has summer allergies and has itchy water eyes, burning of the eyes and sinus headache's. No nose bleed. Has rhinorrhea with her allergies. Not on H1 destiney at this time. NECK: Negative for lumps, goiter, pain and significant neck swelling RESPIRATORY: Negative for cough, hemoptysis, wheezing, COPD, dyspnea or shortness of breath CARDIOVASCULAR: Negative for chest pain, increased leg swelling, hypertension, CHF or palpitations GI: No nausea, vomiting, or diarrhea and no pain : No history of dysuria, blood MUSCULOSKELETAL: chronic low back pain with radicular pain. SKIN: Negative for lesions. Developed a rash on her forearms after sun exposure and almost gone. HEMATOLOGY/LYMPHOLOGY: Negative for prolonged bleeding, bruising easily or swollen nodes ENDOCRINE: Negative for frequent low BS's NEURO: No history of syncope, paralysis, seizures or tremors EXAM: BP 126/72 (BP Site: Left Arm, BP Position: Sitting, BP Cuff Size: Large Adult) Pulse 72 Resp 16 Wt 108 kg (238 lb) BMI 43.53 kg/m Last 4 Encounter Wt Readings: Date: Wt: 02/20/2023 108 kg (238 lb) 02/16/2023 105.4 kg (232 lb 6.4 oz) 02/07/2023 108 kg (238 lb) 11/07/2022 110.7 kg (244 lb) General Appearance: Well appearing, alert, in no acute distress, well-hydrated, well nourished. andMorbidly obese. Skin: Skin color, texture, turgor normal, no suspicious rashes or lesions. Head: Normocephalic, no masses, lesions, tenderness or abnormalities. Eyes: Anicteric sclera. Pupils are equally round and reactive to light. Extraocular movements are intact. . Ears: External ears normal, canals clear. Nose/Sinuses: Nares normal, septum midline, mucosa normal, no drainage or sinus tenderness. Oropharynx: Lips, mucosa, and tongue normal, teeth and gums normal, oropharynx normal. Neck: Supple, no adenopathy; thyroid symmetric, normal size, no bruits. Lungs: Lungs clear to auscultation. No wheezing, rhonchi, rales.. Heart: RRR without murmur, gallop, or rubs. No ectopy. Abdomen: Normal abdominal exam, Abdomen soft, non-tender. Bowel sounds normal. No masses, organomegaly. Extremities: No deformities, skin discoloration, Good capillary refill. Has chronic stable 1+ edemain both lower legs. . Musculoskeletal: Muscular strength intact. Peripheral Pulses: Normal. Neurologic: Gait normal. Sensation to light touch and crainal nerves 2-12 intact.. Health Maintenance List MAMMOGRAM due on 07/13/2022 ADVANCE DIRECTIVE DISCUSSION due on 09/04/2022 DEPRESSION ASSESSMENT Never done HBA1C due on 02/07/2023 LDL CHOLESTEROL due on 02/22/2023 DIABETIC FOOT EXAM due on 02/22/2023 SHINGRIX VACCINE(2 of 3) due on 04/06/2023 URINE ALBUMIN:CREATININE RATIO due on 04/26/2023 DILATED RETINAL EXAM due on 08/09/2023 ANNUAL PCP TEAM CHRONIC DISEASE VISIT due on 10/24/2023 SERUM CREATININE due on 11/08/2023 BP CONTROLLED (<130/80) due on 02/17/2024 DTAP,TDAP,TD(4 - Tdap) due on 06/30/2025 COLORECTAL CANCER SCREENING due on 05/24/2027 BONE DENSITY Completed INFLUENZA Completed HEPATITIS C SCREENING Completed COVID-19 VACCINE Completed PNEUMOCOCCAL: 65+ Completed SPIROMETRY Discontinued Data reviewed Labs 02/02/2023: H.1, WBC: 10.5. Plt: 292 and Cre: 1.09. A/P ASSESSMENT/PLAN: 1. Pre-op examination - ICD9: V72.84, ICD10: Z01.818 (primary diagnosis) Based on the ACC/AHA classification of surgical procedure risk this is a Mod risk procedure. Based on the Mychal's Simple Cardiac Risk index there is less than a 0.9% cardiac Risk. Patient has already been cleared by cardiology and endocrinology and from my stand point is medically optimized to proceed with surgery. 2. Spinal stenosis of lumbar region without neurogenic claudication - ICD9: 724.02, ICD10: M48.061 - scheduled for surgery on 02/23/[address] Garcia. 3. Mild intermittent asthma without complication - ICD9: 493.90, ICD10: J45.20 - Mild intermittent asthma stable - Continue current medications - Avoidance of triggers recommended 4. Hypertension, essential - ICD9: 401.9, ICD10: I10 - Controlled - Continue current medications - Recommend home blood pressure monitoring, to bring results to next visit - Encouraged sodium restriction, DASH or Mediterranean diet - Recommend regular aerobic exercise 5. Seasonal allergic rhinitis due to pollen - ICD9: 477.0, ICD10: J30.1 - patient to picking tech OTC Claritin 10 mg a day and will add. - MONTELUKAST 10 MG TABLET I spent a total of 37 minutes on the date of the service which included preparing to see the patient, [id number] patient care, completing clinical documentation, performing a medically appropriate examination, counseling and educating the patient/family/caregiver and ordering medications, tests, or procedures. Willard Henriquez MD documented in this encounterThe [facility]06[facility] History of Present illness Narrative* Kay Newman MA - 02/20/2023 1:21 PM EDT Scan on 02/13/2023 8:23 AM by External Provider, PAAndresC: endocrinology and cardiac clearance Scan on 02/17/2023 8:22 AM by External Provider, TRINA: Consultation - Endocrinology Scan on 02/17/2023 12:03 PM by External Provider, TRINA Patient has pre op 02/20/2023 Kay Newman MA documented in this encounterThe [facility]06-[facility]23 NoteHNO ID: [id number] Author: Diana Lutz APRN.CHAZ Service: ? Author Type: Nurse Practitioner Type: Progress Notes Filed: 02/20/2023 3:47 PM Note Text: PACC Consult SERVICE DATE: 02/16/2023 SERVICE TIME: 2:27 PM PRIMARY CARE PHYSICIAN: Willard Henriquez MD REASON FOR VISIT: Derrell German is a 67 year old female who is scheduled for 3hr PLF at the request of Dr. Sandoval for PACC consult The patient has the following: ACTIVE PROBLEM LIST Type 2 Diabetes Mellitus With Stage 3a Chronic Kidney Disease, With Long-Term Current Use of Insulin (Hcc) Postsurgical Hypothyroidism Mild Intermittent Asthma Without Complication Allergic Rhinitis Gerd (Gastroesophageal Reflux Disease) Postherpetic Neuralgia Morbid Obesity Due to Excess Calories (Hcc) Hypertension, Essential Hyperlipidemia, Mixed History of Chapman's Palsy Osteoarthritis of Both Knees Psoriasis Ashd (Arteriosclerotic Heart Disease) Natalie (Obstructive Sleep Apnea) Lumbar Radiculopathy Stage 3a Chronic Kidney Disease (Hcc) Spinal Stenosis of Lumbar 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 HTN, HLP, cAD s.p LHC X2 with stents X3 (Melissa Hudosn - 2001 X2 and 2019)), mild asthma, NATALIE on BiPAP (Ventura Chris), PONV, Post-herpetic neuralgia, post-surgical hypothyroidism, DM-2 on insulin with Stage IIIa CKD (Jorje Jerald Endo - cleared with A1C of 7.6 on 02/02/23), psoriasis. Echo 09/25: LVEF 65%, MAC, mild LAE. EK11/07/22: NSR 73 bpm Regadenason SPECT 09/25: LVEF 84% without scar or rev ischemia PAST MEDICAL HISTORY Diagnosis Date Advance directive discussed with patient 04/06/2022 Discussed 04/2022 Allergic rhinitis 02/10/2011 ASHD (arteriosclerotic heart disease) 03/08/[address] Hudson Asthma Dr[address] 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 History of left heart catheterization HEART CATH X2 STENTS X 3 NASH GARCIA Hyperlipidemia, mixed 06/30/2015 DR HUDSON, Hypertension, essential 06/30/2015 NASH GARCIA CARD- controlled with medication Joint pain PAIN MANAGMENT WILLARD CRUZ [place] Living will on file 04/06/2022 DPA: Ever () Lumbar radiculopathy 04/28/2020 R L4 radiculopathy 04/2020 Medicare annual wellness visit, initial 04/06/2022 Medicare part B: 11/03/2019 Last done: 04/06/2022 Mild intermittent asthma without complication 02/10/2011 DENIES PROBLEMS, DENIES INHALERS Morbid obesity (HCC) 01/10/2012 NATALIE (obstructive sleep apnea) 09/10/2019 On BiPAP and sees VENTURA Schaffer Osteoarthritis of both knees 02/02/2017 PONV (postoperative nausea and vomiting) Postherpetic neuralgia 03/14/2014 Right mid-trunk area. 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 Psoriasis 10/23/2017 Rash bilateral forearms Rosacea 04/19/2013 Shingles 2014 Spinal stenosis of lumbar region without neurogenic claudication 03/19/2021 DR SANDOVAL FOLLOWING Stage 3a chronic kidney disease (HCC) 03/19/2021 GERALD CALHOUN AND WILLARD HARRINGTON Uncontrolled type 2 diabetes mellitus with hyperglycemia ([facility]) 12/24/2019 Seeing GERALD Marte Uses roller walker Vitamin D deficiency 03/19/2021 Wears glasses reading PAST SURGICAL HISTORY Procedure Laterality Date ANESTH, HYSTERECTOMY 2000 ANESTHESIA NOSE AND ACCESSORY SINUSES NOS 1996 CHOLECYSTECTOMY 1989 COLONOSCOPY FLX DX W/COLLJ SPEC WHEN PFRMD 04/18/2011 X3 HEART CATHETERIZATION 2002 HEART CATH X2 2001 AND 2019 STENTS X3 2019 PAST SURGICAL HISTORY OF L. knee PAST SURGICAL HISTORY OF kidney stones PAST SURGICAL HISTORY OF Right 2007 Knee PAST SURGICAL HISTORY OF NERVE STIMULATOR AND REMOVAL MELISSA ORTH REMV CATARACT EXTRACAP,INSERT LENS Bilateral Rt 08/2019, Lt 11/2019 STRESS TEST ADENOSINE 05/11/2013 THYROIDECTOMY TOTAL/COMPLETE 2000 TONSILLECTOMY HX 1963 FAMILY HISTORY Problem Relation Age of Onset Diabetes Mother Thyroid Mother Diabetes Father Diabetes Paternal Aunt SOCIAL HISTORY: Social History Tobacco Use Smoking status: Never Passive exposure: Never Smokeless tobacco: Never Vaping Use Vaping Use: Never used Substance Use Topics Alcohol use: Never Drug use: Never Prior to Admission medications as of 02/16/23 1332 Medication Sig Last Dose Taking rosuvastatin (CRESTOR) 20 mg tablet Take 1 tablet by (more content not included)...[facility]06-15-2023 NoteHNO ID: [id number] Author: Diana Lutz APRN.ENROLLMENT REPRESENTATIVE Service: ? Author Type: Nurse Practitioner Type: Progress Notes Filed: 02/17/2023 4:05 PM Note Text: Summary: dos meds PATIENT MEDICATION INSTRUCTIONS Please read below carefully for your personalized instructions. Medications: If you are on blood thinner or anticoagulants including aspirin, please confirm with your surgical team on when to stop these medications. Unless instructed differently by your surgical team, stay on all of your medications until your surgery. Pre-Surgery Med Instructions Medication Instructions rosuvastatin (CRESTOR) 20 mg tablet Take morning of surgery with a sip of water, no other fluids clobetasol (TEMOVATE) 0.05 % ointment DO NOT TAKE MORNING OF SURGERY gabapentin (NEURONTIN) 100 mg capsule Take morning of surgery with a sip of water, no other fluids acetaminophen (TYLENOL) 500 mg tablet DO NOT TAKE MORNING OF SURGERY ibuprofen (MOTRIN) 200 mg tablet DO NOT TAKE MORNING OF SURGERY calcium carbonate (ANTACID CALCIUM ORAL) DO NOT TAKE MORNING OF SURGERY HYDROcodone-acetaminophen (NORCO) 5-325 mg per tablet PRN if needed melatonin 10 mg cap DO NOT TAKE MORNING OF SURGERY BIPAP Bring with you spironolactone (ALDACTONE) 25 mg tablet DO NOT TAKE MORNING OF SURGERY potassium chloride (K-TAB) 10 mEq tablet DO NOT TAKE MORNING OF SURGERY levothyroxine (SYNTHROID) 175 mcg tablet Take morning of surgery with a sip of water, no other fluids famotidine (PEPCID) 20 mg tablet Take morning of surgery with a sip of water, no other fluids dapagliflozin (FARXIGA) 10 mg tablet DO NOT TAKE MORNING OF SURGERY TRULICITY 3 mg/0.5 mL pen injector DO NOT TAKE MORNING OF SURGERY furosemide (LASIX) 40 mg tablet DO NOT TAKE MORNING OF SURGERY EPINEPHrine (EPIPEN) 0.3 mg/0.3 mL auto-injector PRN if needed Cholecalciferol, Vitamin D3, 125 mcg (5,000 unit) cap DO NOT TAKE MORNING OF SURGERY isosorbide mononitrate ER (IMDUR) 30 mg 24 hr tablet Take morning of surgery with a sip of water, no other fluids insulin regular human, CONCENTRATED 500 UNIT/ML, (HUMULIN R) 500 unit/mL soln DO NOT TAKE MORNING OF SURGERY nitroglycerin sublingual (NITROQUICK) 0.4 mg SL tablet PRN if needed aspirin 81 mg chewable tablet Follow Footwear Production Machine Operator's instructions clopidogrel (PLAVIX) 75 mg tablet Follow Footwear Production Machine Operator's instructions metoprolol succinate ER (TOPROL XL) 25 mg 24 hr tablet Take morning of surgery with a sip of water, no other fluids - No diabetic medication the morning of surgery. - Accucheck day of surgery. - If you take Invokana, Farxiga or Jardiance, hold 3 day pre-op If you have any medication changes between receiving these instructions and your surgery date, please provide this updated information with the nurse who calls you the week day prior to your surgical procedure so we can update your list and provide you with updated instructions for the morning of your procedure.[facility]06-15-2023 NoteHNO ID: [id number] Author: Karen Foster MD Service: ? Author Type: Physician Type: Progress Notes Filed: 02/17/2023 4:05 PM Note Text: 02/23/23 - left L4-5 and L5-S1 PLF - Jaime 67 yo [place] woman, non-smoker with extensive PMHx. HTN, HLP, cAD s.p LHC X2 with stents X3 (Melissa Hudson - 2001 X2 and 2019)), mild asthma, NATALIE on BiPAP (Ventura Chris), PONV, Post-herpetic neuralgia, post-surgical hypothyroidism, DM-2 on insulin with Stage IIIa CKD ([facility] - cleared with A1C of 7.6 on 02/02/23), psoriasis. Echo 09/25: LVEF 65%, MAC, mild LAE. EK11/07/22: NSR 73 bpm Regadenason SPECT 09/25: LVEF 84% without scar or rev ischemiaCo[facility]ille [facility]06-15-[facility] History of Present illness Narrative* Diana Lutz APRN.ENROLLMENT REPRESENTATIVE - 02/16/2023 2:27 PM EDT PACC Consult SERVICE DATE: 02/16/2023 SERVICE TIME: 2:27 PM PRIMARY CARE PHYSICIAN: Willard Henriquez MD REASON FOR VISIT: Derrell German is a 67 year old female who is scheduled for 3hr PLF at the request of Dr. 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 HTN, HLP, cAD s.p LHC X2 with stents X3 (Melissa Hudson - 2001 X2 and 2019)), mild asthma, NATALIE on BiPAP (Ventura Chris), PONV, Post-herpetic neuralgia, post-surgical hypothyroidism, DM- 2 on insulin with Stage IIIa CKD ([facility] - cleared [id number] of 7.6 on 02/02/23), psoriasis. Echo 09/25: LVEF 65%, MAC, mild LAE. EK11/07/22: NSR 73 bpm Regadenason SPECT 09/25: LVEF 84% without scar or rev ischemia PAST MEDICAL HISTORY Diagnosis Date Advance directive discussed with patient 04/06/2022 Discussed 04/2022 Allergic rhinitis 02/10/2011 ASHD (arteriosclerotic heart disease) 03/08/[address] Hudson Asthma Dr. 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 History of left heart catheterization HEART CATH X2 STENTS X 3 NASH GARCIA Hyperlipidemia, mixed 06/30/2015 DR HUDSON, Hypertension, essential 06/30/2015 NASH GARCIA CARD- controlled with medication Joint pain PAIN MANAGMENT WILLARD CRUZ Living will on file 04/06/2022 DPA: Ever () Lumbar radiculopathy 04/28/2020 R L4 radiculopathy 04/2020 Medicare annual wellness visit, initial 04/06/2022 Medicare part B: 11/03/2019 Last done: 04/06/2022 Mild intermittent asthma without complication 02/10/2011 DENIES PROBLEMS, DENIES INHALERS Morbid obesity (HCC) 01/10/2012 NATALIE (obstructive sleep apnea) 09/10/2019 On BiPAP and sees VENTURA Schaffer Osteoarthritis of both knees 02/02/2017 PONV (postoperative nausea and vomiting) Postherpetic neuralgia 03/14/2014 Right mid-trunk area. 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 Psoriasis 10/23/2017 Rash bilateral forearms Rosacea 04/19/2013 Shingles 2014 Spinal stenosis of lumbar region without neurogenic claudication 03/19/2021 DR SANDOVAL FOLLOWING Stage 3a chronic kidney disease ([facility]) 03/19/2021 GERALD CALHOUN AND WILLARD HARRINGTON Uncontrolled type 2 diabetes mellitus with hyperglycemia ([facility]) 12/24/2019 Seeing GERALD Marte Uses roller walker Vitamin D deficiency 03/19/2021 Wears glasses reading PAST SURGICAL HISTORY Procedure Laterality Date ANESTH, HYSTERECTOMY 2000 ANESTHESIA NOSE & ACCESSORY SINUSES NOS 1995 CHOLECYSTECTOMY 1989 COLONOSCOPY FLX DX W/COLLJ SPEC WHEN PFRMD 04/18/2011 X3 HEART CATHETERIZATION 2002 HEART CATH X2 2001 & 2019 STENTS X3 2019 PAST SURGICAL HISTORY OF L. knee PAST SURGICAL HISTORY OF kidney stones PAST SURGICAL HISTORY OF Right 2007 Knee PAST SURGICAL HISTORY OF NERVE STIMULATOR AND REMOVAL MELISSA ORTH REMV CATARACT EXTRACAP,INSERT LENS Bilateral Rt 08/2019, Lt 11/2019 STRESS TEST ADENOSINE 05/11/2013 THYROIDECTOMY TOTAL/COMPLETE 2000 TONSILLECTOMY HX 1963 FAMILY HISTORY Problem Relation Age of Onset Diabetes Mother Thyroid Mother Diabetes Father Diabetes Paternal Aunt SOCIAL HISTORY: Social History Tobacco Use Smoking status: Never Passive exposure: Never Smokeless tobacco: Never Vaping Use Vaping Use: Never used Substance Use Topics Alcohol use: Never Drug use: Never Prior to Admission medications as of 02/16/23 1332 Medication Sig Last Dose Taking rosuvastatin (CRESTOR) 20 mg tablet Take 1 tablet by mouth once daily. Patient taking differently: Take 20 mg by mouth every morning. Yes clobetasol (TEMOVATE) 0.05 % ointment Apply to affected area twice daily. Yes gabapentin (NEURONTIN) 100 mg capsule 300 mg by mouth three times/day Yes acetaminophen (TYLENOL) 500 mg tablet Take 500 mg by mouth every 8 hours as needed. Yes ibuprofen (MOTRIN) 200 mg tablet Take 200 mg by mouth every 6 hours as needed. Last dose 02/07/23 Yes calcium carbonate (ANTACID CALCIUM ORAL) Take by mouth as needed. Last dose 02/09 Yes HYDROcodone-acetaminophen (NORCO) 5-325 mg per tablet Take 1 tablet by mouth every 8 hours as needed for pain. Yes melatonin 10 mg cap Take 5-10 mg by mouth daily at bedtime. Yes BIPAP daily at bedtime. Yes spironolactone (ALDACTONE) 25 mg tablet TAKE 1 TABLET BY MOUTH TWICE DAILY Yes potassium chloride (K-TAB) 10 mEq tablet Take 2 tablets by mouth twice daily. Yes levothyroxine (SYNTHROID) 175 mcg tablet Take 1 tablet by mouth once daily. Mon- Sat and 1.5 tabs on Sun. Take on empty stomach. For Thyroid. Patient taking differently: Take 175 mcg by mouth once daily. Mon- Sat only. None on Monday Take onempty stomach. For Thyroid. Yes famotidine (PEPCID) 20 mg tablet Take 1 tablet by mouth at bedtime as needed. Patient taking differently: Take 20 mg by mouth twice daily. Yes dapagliflozin (FARXIGA) 10 mg tablet Take 10 mg by mouth daily with breakfast. Take 1 tablet daily Yes TRULICITY 3 mg/0.5 mL pen injector Inject 4.5 mg subcutaneously one time a week. Monday Yes furosemide (LASIX) 40 mg tablet Take 1 tablet by mouth twice daily. Per [facility] Patient taking differently: Take 60 mg by mouth twice daily. NASH GARCIA Yes EPINEPHrine (EPIPEN) 0.3 mg/0.3 mL auto-injector Use auto-injector x 1 for allergic reaction. Patient taking differently: Inject 0.3 mg intramuscularly as needed. Use auto- injector x 1 for allergic reaction. Yes Cholecalciferol, Vitamin D3, 125 mcg (5,000 unit) cap Take 1 capsule by mouth once daily. Patient taking differently: Take 5,000 Units by mouth every morning. Last dose 02/07/23 Yes isosorbide mononitrate ER (IMDUR) 30 mg 24 hr tablet Take 60 mg by mouth every morning. Yes insulin regular human, CONCENTRATED 500 UNIT/ML, (HUMULIN R) 500 unit/mL soln Inject 15 units ac brkt; 10 unts ac lunch; 15 units ac supper Patient taking differently: Inject subcutaneously. 175 units before breakfast 175 units before lunch 185 units before dinner 80 units at bedtime Depends on BS tests Yes nitroglycerin sublingual (NITROQUICK) 0.4 mg SL tablet Dissolve 1 tablet under the tongue every 5 minutes as needed for Chest Pain. Yes aspirin 81 mg chewable tablet Take 81 mg by mouth every morning. HOLD 5 DAYS PRE OP PER DR SANDOVAL, AND DR HUDSON'S office is aware Yes clopidogrel (PLAVIX) 75 mg tablet Take 75 mg by mouth every morning. HOLD 5 DAYS PRE OP PER DR SANDOVAL AND NASH GARCIA Yes metoprolol succinate ER (TOPROL XL) 25 mg 24 hr tablet Take 1 tablet by mouth twice daily. Patient taking differently: Take 25 mg by mouth every morning. Yes flash glucose scanning reader (MAD Incubator OCTAVIA 14 DAY READER) misc 1 Device every 2 weeks. No medication comments found. ALLERGIES Allergen Reactions Amlodipine Swelling Diphth,Pertus(Acell* Hives Diflucan [Fluconazo* Hives Actos [Pioglitazone* Other: See Comments Edema BLE AND OLGA HANDS Bactrim [Sulfametho* Hives HIVES Betadine [Povidone-* Anaphylaxis SEVERE ALLERGY TO IODINE AND BETADINE Fish Anaphylaxis ALL FISH Iodine Anaphylaxis IV contrast Lipitor [Atorvastat* Rash, Itching Metformin Diarrhea, GI Upset [place] Anaphylaxis Penicillins Unknown NOT SURE A CHILD Sulfa (Sulfonamide * Swelling SWELLING AND HIVES REVIEW OF SYSTEMS: PAIN ASSESSMENT: Pain Pain Level: 6 Pain Location: Back-Lower Description: Aching Duration Units: Years Frequency: Continuous Intervention/Comfort measure: Medication, Reposition, Positioning General: No weight loss, malaise or fevers. Neuro: No history of TIA's, stroke, POULTRY RAISER tumor, impaired sensorium, hemiplegia, paraplegia or quadraplegia. No neurological symptoms or problems. Respiratory: Positive for Asthma, NATALIE on bipap Cardiovascular: Positive for: CAD; Footwear Production Machine Operator: LORIN Hudson, Hypertension, PTCA GI: No history of GI symptoms or problems. No history of esophageal varices, recent ascites, or ETOH greater than 2 drinks per day. : Positive for renal failure CKD3 CIRCULAR SAW FILER: Negative for abnormal vaginal bleeding, abnormal vaginal discharge., N/A : N/A, No LMP recorded. Patient has had a hysterectomy. Endocrine: Diabetes Mellitus on insulin, Diabetes Mellitus on oral agent, Hypothyroidism Hematology: Chronic anti-coagulation / platelet meds (Aspirin, Plavix) Oncology: No history of CA metastasis, chemo within 30 days, or radiotherapy within 90 days. Has not lost 10% of body wt in 6 months. No history of oncological symptoms or problems. Psych: No history of psychiatric symptoms or problems. Musculoskeletal: Back pain Skin: Negative for lesions, rash and itching. Objective PHYSICAL EXAM: VITALS: BP 120/54 Pulse 70 Resp 20 Ht 5' 2 (1.58m) Wt 232 lb 6.4 oz (105.4kg) SpO2 97% BMI 42.50 kg/(m^2). General: Alert and oriented, No acute distress, Morbidly obese Diagnostic tests reviewed for today's visit: LABS DONE ON 02/02 IN [place]: h&h 13.1/42.4, CRE 1.09, K 3.9, A1C 7.6 Assessment/Plan We saw Claudia lofton in November 2022 for this procedure. She was delayed as her A1C was 8.9 [facility]). When we last saw her, she had to brought up in a . Today she was able to ambulate with a rollator. Ongoing back issues since a fall in 2020. Main complaints are back pain, hip pain R>L. Anginal equiv is CP- had stents in 2019 following an abnorma l stress test. [employer] approved 5 day hold of DAPT. She has a severe IVP dye allergy, as well as anaphylaxis with oranges and iodine. Denies CP/SOB/orthopnea. She wears a dexcom for continuous monitoring. Difficult IV access. METS: Walk indoors, such as around the house (1.75 METs) Do light work around the house, such as dusting or washing dishes (2.70 METs) Patient denies any chest pain or undue shortness of breath with the above physical activity. Limited most or all of the time (uses scooter, mobility device) ANESTHESIA FINDINGS: Intubation History: No history of difficult intubation Significant Anesthesia Considerations: Postop nausea/vomiting Airway History: No abnormal airway history PLAN This patient is optimally prepared for surgery pending LABS. The Following Tests/Procedures Have Been Initiated: PACC labs, eKG Planned Anesthetic: Per anesthesia choice Instructions Given to Patient: Instructions located in the after visit summary. Patient given verbal and written preop instructions and voices comprehension and compliance. SIGNATURE: Diana Lutz APRN.CNP PATIENT NAME: Derrell German DATE: February 16, 2023 TIME: 2:27 PM * Diana Lutz APRN.CNP - 02/16/2023 2:08 PM EDTSummary: dos meds PATIENT MEDICATION INSTRUCTIONS Please read below carefully for your personalized instructions. Medications: If you are on blood thinner or anticoagulants including aspirin, please confirm with your surgical team on when to stop these medications. Unless instructed differently by your surgical team, stay on all of your medications until your surgery. Pre-Surgery Med Instructions Medication Instructions rosuvastatin (CRESTOR) 20 mg tablet Take morning of surgery with a sip of water, no other fluids clobetasol (TEMOVATE) 0.05 % ointment DO NOT TAKE MORNING OF SURGERY gabapentin (NEURONTIN) 100 mg capsule Take morning of surgery with a sip of water, no other fluids acetaminophen (TYLENOL) 500 mg tablet DO NOT TAKE MORNING OF SURGERY ibuprofen (MOTRIN) 200 mg tablet DO NOT TAKE MORNING OF SURGERY calcium carbonate (ANTACID CALCIUM ORAL) DO NOT TAKE MORNING OF SURGERY HYDROcodone-acetaminophen (NORCO) 5-325 mg per tablet PRN if needed melatonin 10 mg cap DO NOT TAKE MORNING OF SURGERY BIPAP Bring with you spironolactone (ALDACTONE) 25 mg tablet DO NOT TAKE MORNING OF SURGERY potassium chloride (K-TAB) 10 mEq tablet DO NOT TAKE MORNING OF SURGERY levothyroxine (SYNTHROID) 175 mcg tablet Take morning of surgery with a sip of water, no other fluids famotidine (PEPCID) 20 mg tablet Take morning of surgery with a sip of water, no other fluids dapagliflozin (FARXIGA) 10 mg tablet DO NOT TAKE MORNING OF SURGERY TRULICITY 3 mg/0.5 mL pen injector DO NOT TAKE MORNING OF SURGERY furosemide (LASIX) 40 mg tablet DO NOT TAKE MORNING OF SURGERY EPINEPHrine (EPIPEN) 0.3 mg/0.3 mL auto-injector PRN if needed Cholecalciferol, Vitamin D3, 125 mcg (5,000 unit) cap DO NOT TAKE MORNING OF SURGERY isosorbide mononitrate ER (IMDUR) 30 mg 24 hr tablet Take morning of surgery with a sip of water, no other fluids insulin regular human, CONCENTRATED 500 UNIT/ML, (HUMULIN R) 500 unit/mL soln DO NOT TAKE MORNING OF SURGERY nitroglycerin sublingual (NITROQUICK) 0.4 mg SL tablet PRN if needed aspirin 81 mg chewable tablet Follow Footwear Production Machine Operator's instructions clopidogrel (PLAVIX) 75 mg tablet Follow Footwear Production Machine Operator's instructions metoprolol succinate ER (TOPROL XL) 25 mg 24 hr tablet Take morning of surgery with a sip of water,no other fluids - No diabetic medication the morning of surgery. - Accucheck day of surgery. - If you take Invokana, Farxiga or Jardiance, hold 3 day pre-op If you have any medication changes between receiving these instructions and your surgery date, please provide this updated information with the nurse who calls you the week day prior to your surgicalprocedure so we can update your list and provide you with updated instructions for the morning of your procedure. * Karen Foster MD - 02/16/2023 1:00 PM EDT 02/23/23 - left L4-5 and L5-S1 [facility] 67 [facility] [place], non-smoker with extensive PMHx. HTN, HLP, cAD s.p LHC X2 with stents X3 (Melissa Hudson - 2001 X2 and 2019)), mild asthma, NATALIE on BiPAP (Ventura Chris), PONV, Post-herpetic neuralgia, post-surgical hypothyroidism, DM- 2 on insulin with Stage IIIa CKD ([facility] - cleared [id number] of 7.6 on 02/02/23), psoriasis. Echo 09/25: LVEF 65%, MAC, mild LAE. EK11/07/22: NSR 73 bpm Regadenason SPECT 09/25: LVEF 84% without scar or rev ischemia documented in [facility]The [facility] Instructions* Patient Instructions* Diana Lutz APRN.ENROLLMENT REPRESENTATIVE - 02/16/2023 2:10 PM EDT PATIENT MEDICATION INSTRUCTIONS Please read below carefully for your personalized instructions. Medications: If you are on blood thinner or anticoagulants including aspirin, please confirm with your surgical team on when to stop these medications. Unless instructed differently by your surgical team, stay on all of your medications until your surgery. Pre-Surgery Med Instructions Medication Instructions rosuvastatin (CRESTOR) 20 mg tablet Take morning of surgery with a sip of water, no other fluids clobetasol (TEMOVATE) 0.05 % ointment DO NOT TAKE MORNING OF SURGERY gabapentin (NEURONTIN) 100 mg capsule Take morning of surgery with a sip of water, no other fluids acetaminophen (TYLENOL) 500 mg tablet DO NOT TAKE MORNING OF SURGERY ibuprofen (MOTRIN) 200 mg tablet DO NOT TAKE MORNING OF SURGERY calcium carbonate (ANTACID CALCIUM ORAL) DO NOT TAKE MORNING OF SURGERY HYDROcodone-acetaminophen (NORCO) 5-325 mg per tablet PRN if needed melatonin 10 mg cap DO NOT TAKE MORNING OF SURGERY BIPAP Bring with you spironolactone (ALDACTONE) 25 mg tablet DO NOT TAKE MORNING OF SURGERY potassium chloride (K-TAB) 10 mEq tablet DO NOT TAKE MORNING OF SURGERY levothyroxine (SYNTHROID) 175 mcg tablet Take morning of surgery with a sip of water, no other fluids famotidine (PEPCID) 20 mg tablet Take morning of surgery with a sip of water, no other fluids dapagliflozin (FARXIGA) 10 mg tablet DO NOT TAKE MORNING OF SURGERY TRULICITY 3 mg/0.5 mL pen injector DO NOT TAKE MORNING OF SURGERY furosemide (LASIX) 40 mg tablet DO NOT TAKE MORNING OF SURGERY EPINEPHrine (EPIPEN) 0.3 mg/0.3 mL auto-injector PRN if needed Cholecalciferol, Vitamin D3, 125 mcg (5,000 unit) cap DO NOT TAKE MORNING OF SURGERY isosorbide mononitrate ER (IMDUR) 30 mg 24 hr tablet Take morning of surgery with a sip of water, no other fluids insulin regular human, CONCENTRATED 500 UNIT/ML, (HUMULIN R) 500 unit/mL soln DO NOT TAKE MORNING OF SURGERY nitroglycerin sublingual (NITROQUICK) 0.4 mg SL tablet PRN if needed aspirin 81 mg chewable tablet Follow Footwear Production Machine Operator's instructions clopidogrel (PLAVIX) 75 mg tablet Follow Footwear Production Machine Operator's instructions metoprolol succinate ER (TOPROL XL) 25 mg 24 hr tablet Take morning of surgery with a sip of water,no other fluids - No diabetic medication the morning of surgery. - Accucheck day of surgery. - If you take Invokana, Farxiga or Jardiance, hold 3 day pre-op If you have any medication changes between receiving these instructions and your surgery date, please provide this updated information with the nurse who calls you the week day prior to your surgicalprocedure so we can update your list and provide you with updated instructions for the morning of your procedure. [facility] History of Present illness Narrative* Kay Newman MA - 02/06/2023 5:07 PM EDT Scan on 02/02/2023 6:39 PM by External Provider, DAYSIC: Hematology Kay Newman MA documented in this [facility]The [facility] Miscellaneous Notes* Telephone Encounter - Hina Live RN - 02/06/2023 2:18 PM EDT Patient has been identified by name and date of : Yes, Provider Date Time Patient phones for refill(s): Requested Prescriptions Pending Prescriptions Disp Refills rosuvastatin (CRESTOR) 20 mg tablet 90 tablet 1 Sig: Take 1 tablet by mouth once daily. Date of last office visit with pcp: 10/27/22 Date of last office visit in primary care: Last 2 Encounter Wt Readings: Date: Wt: 11/07/2022 110.7 kg (244 lb) 10/26/2022 107.5 kg (237 lb) Previous labs/tests for medication: Cholesterol: Triglycerides (mg/dL) Date Value 12/19/2019 122 HDL Cholesterol (no units) Date Value 02/22/2022 40 HDL Cholesterol, Nonfasting (mg/dL) Date Value 03/19/2021 54 LDL Cholesterol (no units) Date Value 02/22/2022 48 LDL Cholesterol, Nonfasting (mg/dL) Date Value 03/19/2021 56 ALT (U/L) Date Value 09/20/2022 12 03/19/2021 22 ALT (SGPT) (U/L) Date Value 02/22/2022 25 Non HDL Cholesterol, Nonfasting (mg/dL) Date Value 03/19/2021 82 Please advise. Thank you. Hina Live RN documented in [facility]The [facility] Miscellaneous Notes* Telephone Encounter - Gris Daley LPN - 02/02/2023 1:14 PM EDT Patient has been identified by name and date of : Yes Patient phones for refill(s): Requested Prescriptions Pending Prescriptions Disp Refills clobetasol (TEMOVATE) 0.05 % ointment 30 g 1 Sig: Apply to affected area twice daily. Date of last office visit in primary care: 10/24/2022 Next appointment scheduled 04/24/2023 Please advise. Thank you. Gris Daley LPN documented in this [facility]04-24-2023 Miscellaneous Notes* Telephone Encounter - Tayler Guillen MA - 12/26/2022 8:35 AM EDT Patient has been identified by name and date of : Yes Requested Prescriptions Pending Prescriptions Disp Refills gabapentin (NEURONTIN) 100 mg capsule 270 capsule 1 Si mg by mouth three times/day RX INSTRUCTIONS: Patient aware RX will be sent to pharmacy. No need to notify patient. Patient last office visit: 10/24/22 Patient next office visit: 04/24/23 Tayler Guillen MA documented in this [facility]03-06-2023 Miscellaneous Notes* Addendum Note - Amado Daley RN - 11/07/2022 2:19 PM ESTAddended by: AMADO DALEY on: 11/07/2022 02:19 PM Modules accepted: Orders documented in this encounterThe [facility]03-[facility]23 NoteHNO ID: [id number] Author: Claudine Bell APRN.CNP Service: ? Author Type: Nurse Practitioner Type: Progress Notes Filed: 11/07/2022 1:36 PM Note Text: Summary: DOS MEDS PATIENT MEDICATION INSTRUCTIONS Please read below carefully for your personalized instructions. Medications: If you are on blood thinner or anticoagulants including aspirin, please confirm with your surgical team on when to stop these medications. Unless instructed differently by your surgical team, stay on all of your medications until your surgery. Pre-Surgery Med Instructions Medication Instructions acetaminophen (TYLENOL EXTRA STRENGTH) 500 mg tablet Do not take the morning of surgery ibuprofen (MOTRIN) 200 mg tablet Follow Surgeon's instructions naproxen (NAPROSYN) 250 mg tablet Follow Surgeon's instructions calcium carbonate (ANTACID CALCIUM ORAL) Do not take the morning of surgery HYDROcodone-acetaminophen (NORCO) 5-325 mg per tablet IF NEEDED melatonin 10 mg cap Continue until the night before surgery spironolactone (ALDACTONE) 25 mg tablet Do not take the morning of surgery potassium chloride (K-TAB) 10 mEq tablet Do not take the morning of surgery levothyroxine (SYNTHROID) 175 mcg tablet Take morning of surgery with a sip of water, no other fluids gabapentin (NEURONTIN) 100 mg capsule Take morning of surgery with a sip of water, no other fluids famotidine (PEPCID) 20 mg tablet Take morning of surgery with a sip of water, no other fluids rosuvastatin (CRESTOR) 20 mg tablet Take morning of surgery with a sip of water, no other fluids dapagliflozin (FARXIGA) 10 mg tablet Do not take the morning of surgery TRULICITY 3 mg/0.5 mL pen injector MAY CONTINUE, TAKE AFTER SURGERY-DUE ON MONDAY furosemide (LASIX) 40 mg tablet Do not take the morning of surgery EPINEPHrine (EPIPEN) 0.3 mg/0.3 mL auto-injector IF NEEDED Cholecalciferol, Vitamin D3, 125 mcg (5,000 unit) cap Do not take the morning of surgery clobetasol (TEMOVATE) 0.05 % ointment Do not take the morning of surgery isosorbide mononitrate ER (IMDUR) 30 mg 24 hr tablet Take morning of surgery with a sip of water, no other fluids insulin regular human, CONCENTRATED 500 UNIT/ML, (HUMULIN R) 500 unit/mL soln Do not take the morning of surgery--follow wood machine carver's instructions nitroglycerin sublingual (NITROQUICK) 0.4 mg SL tablet IF NEEDED aspirin 81 mg chewable tablet Follow Footwear Production Machine Operator's instructions clopidogrel (PLAVIX) 75 mg tablet Follow Footwear Production Machine Operator's instructions metoprolol succinate ER (TOPROL XL) 25 mg 24 hr tablet Take morning of surgery with a sip of water, no other fluids - No diabetic medication the morning of surgery. - Accucheck day of surgery. - Take full dose of insulin the day before surgery. -hold farxiga 3 days prior to OR If you have any medication changes between receiving these instructions and your surgery date, please provide this updated information with the nurse who calls you the week day prior to your surgical procedure so we can update your list and provide you with updated instructions for the morning of your procedure.[facility]03-06-[facility]23 NoteHNO ID: [id number] Author: Claudine Bell APRN.CHAZ Service: ? Author Type: Nurse Practitioner Type: Progress Notes Filed: 11/09/2022 8:22 AM Note Text: PACC Consult SERVICE DATE: 11/07/2022 SERVICE TIME: 11:36 AM PRIMARY CARE PHYSICIAN: Willard Henriquez MD REASON FOR VISIT: Derrell German is a 66 year old female who is scheduled for L5-S1 LIF, L4-S1 PLF with instrumentation at the request of Dr. sandoval for consultation. My final recommendation will be communicated back to the requesting physician by way of shared medical record or letter. 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 PMH: obesity hypovent syndrome on bipap (Aries), asthma, HTN, HLD, CAD s/p PCI x2 2019 on imdur, CHF, IDDM on farxiga, CKD3, GERD, thyroid replacement, chapman's palsy. Follows with [facility]. Previous SCS s/p removal 2/2 infection. Already received cardiac clearance at intermediate risk with LD plavix 5 days preop. The OV note from 08/2022 states ok to hold DAPT 7 days. Will need to clarify. ECHO 2019 EF 65, LAE, mild MAC LHC 2019 LAD distal PCI patent, Lcx mid PCI patent. PAST MEDICAL HISTORY Diagnosis Date Advance directive discussed with patient 04/06/2022 Discussed 04/2022 Allergic rhinitis 02/10/2011 ASHD (arteriosclerotic heart disease) 03/08/[address] Hudson Congestive heart failure (HCC) DDD (degenerative disc disease), lumbar 03/19/2021 Diabetic eye exam (HCC) 08/10/2022 Last done 08/09/22 [facility] DIFFUS CYSTIC MASTOPATHY 04/22/2006 GERD (gastroesophageal reflux disease) 08/07/2012 History of Chapman's palsy 10/31/2016 History of left heart catheterization HEART CATH X2 STENTS X 3 NASH GARCIA Hyperlipidemia with target LDL less than 100 06/30/2015 Hyperlipidemia, mixed 06/30/2015 DR HUDSON, Hypertension, essential 06/30/2015 NASH GARCIA CARD Joint pain PAIN MANAGMENT WILLARD CRUZ Living will on file 04/06/2022 DPA: Ever () Lumbar radiculopathy 04/28/2020 R L4 radiculopathy 04/2020 Medicare annual wellness visit, initial 04/06/2022 Medicare part B: 11/03/2019 Last done: 04/06/2022 Mild intermittent asthma without complication 02/10/2011 DENIES PROBLEMS, DENIES INHALERS Morbid obesity (HCC) 01/10/2012 NATALIE (obstructive sleep apnea) 09/10/2019 On BiPAP and sees VENTURA Schaffer Osteoarthritis of both knees 02/02/2017 PONV (postoperative nausea and vomiting) Postherpetic neuralgia 03/14/2014 Right mid-trunk area. Postsurgical hypothyroidism Psoriasis 10/23/2017 Rosacea 04/19/2013 Shingles 2014 Spinal stenosis of lumbar region without neurogenic claudication 03/19/2021 DR SANDOVAL FOLLOWING Stage 3a chronic kidney disease (HCC) 03/19/2021 GERALD CALHOUN AND WILLARD HARRINGTON Uncontrolled type 2 diabetes mellitus with hyperglycemia ([facility]) 12/24/2019 Seeing GERALD Marte Vitamin D deficiency 03/19/2021 PAST SURGICAL HISTORY Procedure Laterality Date ANESTH, HYSTERECTOMY 2000 ANESTHESIA NOSE AND ACCESSORY SINUSES NOS 1995 CHOLECYSTECTOMY 1989 COLONOSCOPY FLX DX W/COLLJ SPEC WHEN PFRMD 04/18/2011 X3 HEART CATHETERIZATION 2002 HEART CATH X2 2001 AND 2019 STENTS X3 2019 PAST SURGICAL HISTORY OF L. knee PAST SURGICAL HISTORY OF kidney stones PAST SURGICAL HISTORY OF Right 2007 Knee PAST SURGICAL HISTORY OF NERVE STIMULATOR AND REMOVAL MELISSA ORTH REMV CATARACT EXTRACAP,INSERT LENS Bilateral Rt 08/2019, Lt 11/2019 STRESS TEST ADENOSINE 05/11/2013 THYROIDECTOMY TOTAL/COMPLETE 2000 TONSILLECTOMY HX 1963 FAMILY HISTORY Problem Relation Age of Onset Diabetes Mother Thyroid Mother Diabetes Father Diabetes Paternal Aunt SOCIAL HISTORY: Social History Tobacco Use Smoking status: Never Smokeless tobacco: Never Vaping Use Vaping Use: Never used Substance Use Topics Alcohol use: Never Drug use: Never Prior to Admission medications as of 11/07/22 1132 Medication Sig Last Dose Taking acetaminophen (TYLENOL EXTRA STRENGTH) (more content not included)...[facility]03-06-2023 NoteHNO ID: [id number] Author: Diana Lutz APRN.ENROLLMENT REPRESENTATIVE Service: ? Author Type: Nurse Practitioner Type: Progress Notes Filed: 11/07/2022 1:36 PM Note Text: L5-S1 LIF, L4-S1 PLF with instr 12/08 Stefanko 66yo [place] female, nonsmoker. PMH: obesity hypovent syndrome on bipap (Aries), asthma, HTN, HLD, CAD s/p PCI x2 2019 on imdur, CHF, IDDM on farxiga, CKD3, GERD, thyroid replacement, chapman's palsy. Follows with [facility]. Previous SCS s/p removal 2/2 infection. Already received cardiac clearance at intermediate risk with LD plavix 5 days preop. The OV note from 08/2022 states ok to hold DAPT 7 days. Will need to clarify. ECHO 2019 EF 65, LAE, mild MAC LHC 2019 LAD distal PCI patent, Lcx mid PCI patent.[facility] 11-07-2022 Instructions* Patient Instructions* Claudine Bell APRN.ENROLLMENT REPRESENTATIVE - 11/07/2022 11:47 AM EST PATIENT MEDICATION INSTRUCTIONS Please read below carefully for your personalized instructions. Medications: If you are on blood thinner or anticoagulants including aspirin, please confirm with your surgical team on when to stop these medications. Unless instructed differently by your surgical team, stay on all of your medications until your surgery. Pre-Surgery Med Instructions Medication Instructions acetaminophen (TYLENOL EXTRA STRENGTH) 500 mg tablet Do not take the morning of surgery ibuprofen (MOTRIN) 200 mg tablet Follow Surgeon's instructions naproxen (NAPROSYN) 250 mg tablet Follow Surgeon's instructions calcium carbonate (ANTACID CALCIUM ORAL) Do not take the morning of surgery HYDROcodone-acetaminophen (NORCO) 5-325 mg per tablet IF NEEDED melatonin 10 mg cap Continue until the night before surgery spironolactone (ALDACTONE) 25 mg tablet Do not take the morning of surgery potassium chloride (K-TAB) 10 mEq tablet Do not take the morning of surgery levothyroxine (SYNTHROID) 175 mcg tablet Take morning of surgery with a sip of water, no other fluids gabapentin (NEURONTIN) 100 mg capsule Take morning of surgery with a sip of water, no other fluids famotidine (PEPCID) 20 mg tablet Take morning of surgery with a sip of water, no other fluids rosuvastatin (CRESTOR) 20 mg tablet Take morning of surgery with a sip of water, no other fluids dapagliflozin (FARXIGA) 10 mg tablet Do not take the morning of surgery TRULICITY 3 mg/0.5 mL pen injector MAY CONTINUE, TAKE AFTER SURGERY-DUE ON MONDAY furosemide (LASIX) 40 mg tablet Do not take the morning of surgery EPINEPHrine (EPIPEN) 0.3 mg/0.3 mL auto-injector IF NEEDED Cholecalciferol, Vitamin D3, 125 mcg (5,000 unit) cap Do not take the morning of surgery clobetasol (TEMOVATE) 0.05 % ointment Do not take the morning of surgery isosorbide mononitrate ER (IMDUR) 30 mg 24 hr tablet Take morning of surgery with a sip of water, no other fluids insulin regular human, CONCENTRATED 500 UNIT/ML, (HUMULIN R) 500 unit/mL soln Do not take the morning of surgery--FOLLOW STUDIO DIRECTOR'S INSTRUCTIONS nitroglycerin sublingual (NITROQUICK) 0.4 mg SL tablet IF NEEDED aspirin 81 mg chewable tablet Follow Footwear Production Machine Operator's instructions clopidogrel (PLAVIX) 75 mg tablet Follow Footwear Production Machine Operator's instructions metoprolol succinate ER (TOPROL XL) 25 mg 24 hr tablet Take morning of surgery with a sip of water,no other fluids - No diabetic medication the morning of surgery. -Hold farxiga 3 days prior to OR - Accucheck day of surgery. - Take full dose of insulin the day before surgery. If you have any medication changes between receiving these instructions and your surgery date, please provide this updated information with the nurse who calls you the week day prior to your surgicalprocedure so we can update your list and provide you with updated instructions for the morning of your procedure. [facility] History of Present illness Narrative* Claudine Bell APRN.CNP - 11/07/2022 11:41 AM ALEJOumhema: DOS MEDS PATIENT MEDICATION INSTRUCTIONS Please read below carefully for your personalized instructions. Medications: If you are on blood thinner or anticoagulants including aspirin, please confirm with your surgical team on when to stop these medications. Unless instructed differently by your surgical team, stay on all of your medications until your surgery. Pre-Surgery Med Instructions Medication Instructions acetaminophen (TYLENOL EXTRA STRENGTH) 500 mg tablet Do not take the morning of surgery ibuprofen (MOTRIN) 200 mg tablet Follow Surgeon's instructions naproxen (NAPROSYN) 250 mg tablet Follow Surgeon's instructions calcium carbonate (ANTACID CALCIUM ORAL) Do not take the morning of surgery HYDROcodone-acetaminophen (NORCO) 5-325 mg per tablet IF NEEDED melatonin 10 mg cap Continue until the night before surgery spironolactone (ALDACTONE) 25 mg tablet Do not take the morning of surgery potassium chloride (K-TAB) 10 mEq tablet Do not take the morning of surgery levothyroxine (SYNTHROID) 175 mcg tablet Take morning of surgery with a sip of water, no other fluids gabapentin (NEURONTIN) 100 mg capsule Take morning of surgery with a sip of water, no other fluids famotidine (PEPCID) 20 mg tablet Take morning of surgery with a sip of water, no other fluids rosuvastatin (CRESTOR) 20 mg tablet Take morning of surgery with a sip of water, no other fluids dapagliflozin (FARXIGA) 10 mg tablet Do not take the morning of surgery TRULICITY 3 mg/0.5 mL pen injector MAY CONTINUE, TAKE AFTER SURGERY-DUE ON MONDAY furosemide (LASIX) 40 mg tablet Do not take the morning of surgery EPINEPHrine (EPIPEN) 0.3 mg/0.3 mL auto-injector IF NEEDED Cholecalciferol, Vitamin D3, 125 mcg (5,000 unit) cap Do not take the morning of surgery clobetasol (TEMOVATE) 0.05 % ointment Do not take the morning of surgery isosorbide mononitrate ER (IMDUR) 30 mg 24 hr tablet Take morning of surgery with a sip of water, no other fluids insulin regular human, CONCENTRATED 500 UNIT/ML, (HUMULIN R) 500 unit/mL soln Do not take the morning of surgery--follow wood machine carver's instructions nitroglycerin sublingual (NITROQUICK) 0.4 mg SL tablet IF NEEDED aspirin 81 mg chewable tablet Follow Footwear Production Machine Operator's instructions clopidogrel (PLAVIX) 75 mg tablet Follow Footwear Production Machine Operator's instructions metoprolol succinate ER (TOPROL XL) 25 mg 24 hr tablet Take morning of surgery with a sip of water,no other fluids - No diabetic medication the morning of surgery. - Accucheck day of surgery. - Take full dose of insulin the day before surgery. -hold farxiga 3 days prior to OR If you have any medication changes between receiving these instructions and your surgery date, please provide this updated information with the nurse who calls you the week day prior to your surgicalprocedure so we can update your list and provide you with updated instructions for the morning of your procedure. * Claudine Bell APRN.CNP - 11/07/2022 11:36 AM EST PACC Consult SERVICE DATE: 11/07/2022 SERVICE TIME: 11:36 AM PRIMARY CARE PHYSICIAN: Willard Henriquez MD REASON FOR VISIT: Derrell German is a 66 year old female who is scheduled for L5-S1 LIF, L4-S1 PLF with instrumentation at the request of Dr. sandoval for consultation. My final recommendation will be communicated back to the requesting physician by way of shared medical record or letter. The patient has the following: ACTIVE PROBLEM LIST Type 2 Diabetes Mellitus With Stage 3a Chronic Kidney Disease, With Long-Term Current Use of Insulin ([facility]) Postsurgical Hypothyroidism Mild Intermittent Asthma Without Complication Allergic Rhinitis Gerd (Gastroesophageal Reflux Disease) Postherpetic Neuralgia Morbid Obesity Due to Excess Calories ([facility]) Hypertension, Essential Hyperlipidemia, Mixed History of Chapman's Palsy Osteoarthritis of Both Knees Psoriasis Ashd (Arteriosclerotic Heart Disease) Natalie (Obstructive Sleep Apnea) Lumbar Radiculopathy Stage 3a Chronic Kidney Disease ([facility]) Spinal Stenosis of Lumbar 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 PMH: obesity hypovent syndrome on bipap (Aries), asthma, HTN, HLD, CAD s/p PCI x2 2019 on imdur, CHF, IDDM on farxiga, CKD3, GERD, thyroid replacement, chapman's palsy. Follows with [facility]. Previous SCS s/p removal 2/2 infection. Already received cardiac clearance at intermediate risk with LD plavix 5 days preop. The OV note from 08/2022 states ok to hold DAPT 7 days. Will need to clarify. ECHO 2019 EF 65, LAE, mild MAC LHC 2019 LAD distal PCI patent, Lcx mid PCI patent. PAST MEDICAL HISTORY Diagnosis Date Advance directive discussed with patient 04/06/2022 Discussed 04/2022 Allergic rhinitis 02/10/2011 ASHD (arteriosclerotic heart disease) 03/08/[address] Hudson Congestive heart failure (HCC) DDD (degenerative disc disease), lumbar 03/19/2021 Diabetic eye exam (HCC) 08/10/2022 Last done 08/09/22 [facility] DIFFUS CYSTIC MASTOPATHY 04/22/2006 GERD (gastroesophageal reflux disease) 08/07/2012 History of Chapman's palsy 10/31/2016 History of left heart catheterization HEART CATH X2 STENTS X 3 NASH GARCIA Hyperlipidemia with target LDL less than 100 06/30/2015 Hyperlipidemia, mixed 06/30/2015 DR HUDSON, Hypertension, essential 06/30/2015 NASH GARCIA CARD Joint pain PAIN MANAGMENT WILLARD CRUZ [place] Living will on file 04/06/2022 DPA: Ever () Lumbar radiculopathy 04/28/2020 R L4 radiculopathy 04/2020 Medicare annual wellness visit, initial 04/06/2022 Medicare part B: 11/03/2019 Last done: 04/06/2022 Mild intermittent asthma without complication 02/10/2011 DENIES PROBLEMS, DENIES INHALERS Morbid obesity (HCC) 01/10/2012 NATALIE (obstructive sleep apnea) 09/10/2019 On BiPAP and sees VENTURA Schaffer Osteoarthritis of both knees 02/02/2017 PONV (postoperative nausea and vomiting) Postherpetic neuralgia 03/14/2014 Right mid-trunk area. Postsurgical hypothyroidism Psoriasis 10/23/2017 Rosacea 04/19/2013 Shingles 2014 Spinal stenosis of lumbar region without neurogenic claudication 03/19/2021 DR SANDOVAL FOLLOWING Stage 3a chronic kidney disease (HCC) 03/19/2021 [facility] CALHOUN AND WILLARD HARRINGTON Uncontrolled type 2 diabetes mellitus with hyperglycemia (HCC) 12/24/2019 Seeing GERALD Marte Vitamin D deficiency 03/19/2021 PAST SURGICAL HISTORY Procedure Laterality Date ANESTH, HYSTERECTOMY 2000 ANESTHESIA NOSE & ACCESSORY SINUSES NOS 1995 CHOLECYSTECTOMY 1989 COLONOSCOPY FLX DX W/COLLJ SPEC WHEN PFRMD 04/18/2011 X3 HEART CATHETERIZATION 2002 HEART CATH X2 2001 & 2019 STENTS X3 2019 PAST SURGICAL HISTORY OF L. knee PAST SURGICAL HISTORY OF kidney stones PAST SURGICAL HISTORY OF Right 2007 Knee PAST SURGICAL HISTORY OF NERVE STIMULATOR AND REMOVAL MELISSA ORTH REMV CATARACT EXTRACAP,INSERT LENS Bilateral Rt 08/2019, Lt 11/2019 STRESS TEST ADENOSINE 05/11/2013 THYROIDECTOMY TOTAL/COMPLETE 2000 TONSILLECTOMY HX 1963 FAMILY HISTORY Problem Relation Age of Onset Diabetes Mother Thyroid Mother Diabetes Father Diabetes Paternal Aunt SOCIAL HISTORY: Social History Tobacco Use Smoking status: Never Smokeless tobacco: Never Vaping Use Vaping Use: Never used Substance Use Topics Alcohol use: Never Drug use: Never Prior to Admission medications as of 11/07/22 1132 Medication Sig Last Dose Taking acetaminophen (TYLENOL EXTRA STRENGTH) 500 mg tablet Take 500 mg by mouth every 8 hours as needed. Yes ibuprofen (MOTRIN) 200 mg tablet Take 200 mg by mouth every 6 hours as needed. Last dose 11/23/22 Yes naproxen (NAPROSYN) 250 mg tablet Take 250 mg by mouth as needed. Last dose 11/23/22 Yes calcium carbonate (ANTACID CALCIUM ORAL) Take by mouth as needed. Yes HYDROcodone-acetaminophen (NORCO) 5-325 mg per tablet Take 1 tablet by mouth every 8 hours as needed for pain. Yes melatonin 10 mg cap Take 5-10 mg by mouth daily at bedtime. Yes spironolactone (ALDACTONE) 25 mg tablet TAKE 1 TABLET BY MOUTH TWICE DAILY Yes potassium chloride (K-TAB) 10 mEq tablet Take 2 tablets by mouth twice daily. Yes levothyroxine (SYNTHROID) 175 mcg tablet Take 1 tablet by mouth once daily. Mon- Sat and 1.5 tabs on Sun. Take on empty stomach. For Thyroid. Patient taking differently: Take 175 mcg by mouth every morning. Yes gabapentin (NEURONTIN) 100 mg capsule 300 mg by mouth three times/day Patient taking differently: Take 100-300 mg by mouth three times daily. Yes famotidine (PEPCID) 20 mg tablet Take 1 tablet by mouth at bedtime as needed. Patient taking differently: Take 20 mg by mouth every morning. Yes rosuvastatin (CRESTOR) 20 mg tablet Take 1 tablet by mouth once daily. Patient taking differently: Take 20 mg by mouth every morning. Yes dapagliflozin (FARXIGA) 10 mg tablet Take 10 mg by mouth daily with breakfast. Take 1 tablet daily Yes TRULICITY 3 mg/0.5 mL pen injector Inject 4.5 mg subcutaneously one time a week. MONDAY Yes furosemide (LASIX) 40 mg tablet Take 1 tablet by mouth twice daily. Per [facility] Patient taking differently: Take 60 mg by mouth twice daily. NASH GARCIA Yes EPINEPHrine (EPIPEN) 0.3 mg/0.3 mL auto-injector Use auto-injector x 1 for allergic reaction. Patient taking differently: Inject 0.3 mg intramuscularly as needed. Use auto- injector x 1 for allergic reaction. Yes Cholecalciferol, Vitamin D3, 125 mcg (5,000 unit) cap Take 1 capsule by mouth once daily. Patient taking differently: Take 5,000 Units by mouth every morning. Last dose 11/23/22 Yes clobetasol (TEMOVATE) 0.05 % ointment Apply to affected area twice daily. Patient taking differently: Apply to affected area as needed. Yes isosorbide mononitrate ER (IMDUR) 30 mg 24 hr tablet Take 60 mg by mouth every morning. Yes insulin regular human, CONCENTRATED 500 UNIT/ML, (HUMULIN R) 500 unit/mL soln Inject 15 units ac brkt; 10 unts ac lunch; 15 units ac supper Patient taking differently: Inject 200 Units subcutaneously three times daily before meals. 80 UNITS WITH SNACK, UP TO TWICE DAILY PER GERALD CALHOUN Yes nitroglycerin sublingual (NITROQUICK) 0.4 mg SL tablet Dissolve 1 tablet under the tongue every 5 minutes as needed for Chest Pain. Yes aspirin 81 mg chewable tablet Take 81 mg by mouth every morning. HOLD 5 DAYS PRE OP PER DR SANDOVAL, AND NASH GARCIA Yes clopidogrel (PLAVIX) 75 mg tablet Take 75 mg by mouth every morning. HOLD 5 DAYS PRE OP PER DR SANDOVAL AND NASH GARCIA Yes metoprolol succinate ER (TOPROL XL) 25 mg 24 hr tablet Take 1 tablet by mouth twice daily. Patient taking differently: Take 25 mg by mouth every morning. Yes BIPAP daily at bedtime. flash glucose scanning reader ([employer] OCTAVIA 14 DAY READER) misc 1 Device every 2 weeks. No medication comments found. ALLERGIES Allergen Reactions Diflucan [Fluconazo* Hives Actos [Pioglitazone* Other: See Comments Edema BLE AND OLGA HANDS Bactrim [Sulfametho* Hives HIVES Betadine [Povidone-* Anaphylaxis SEVERE ALLERGY TO IODINE AND BETADINE Fish Anaphylaxis ALL FISH Iodine Anaphylaxis IV contrast Lipitor [Atorvastat* Rash, Itching Metformin Diarrhea, GI Upset [place] Anaphylaxis Penicillins Unknown NOT SURE A CHILD Sulfa (Sulfonamide * Swelling SWELLING AND HIVES REVIEW OF SYSTEMS: PAIN ASSESSMENT: Pain Pain Level: 5 Pain Location: Back Description: Sharp, Dull Frequency: Intermittent Intervention/Comfort measure: Medication, Reposition, Heat General: No weight loss, malaise or fevers. Neuro: + N/T in right leg down to her ankle Respiratory: hypoventilation syndrome-bipap, asthma Cardiovascular: Positive for: CAD; Footwear Production Machine Operator: Tristan, CHF, HLD, Hypertension, PTCA GI: Positive for GERD, CKD, PONV Endocrine: Diabetes Mellitus on insulin, Hypothyroidism Musculoskeletal: Back pain radiating into legs Skin: Negative for lesions, rash and itching. Objective PHYSICAL EXAM: VITALS: BP 163/73 Pulse 77 Resp 20 Ht 5' 2 (1.58m) Wt 244 lb (110.7kg) SpO2 97% BMI 44.62 kg/(m^2). General: Alert and oriented, No acute distress, Morbidly obese Skin: Normal color, no rash, no lesions. Neurological: Normal cognition and motor skills. Diagnostic tests reviewed for today's visit: Lab Value Units Date High Low HB No results within date range. HCT No results within date range. WBC No results within date range. PLT No results within date range. NA 138 mmol/L 09/20/2022 144 136 K 4.1 mmol/L 10/04/2022 5.1 3.7 GLUC 297 mg/dL 09/20/2022 99 74 BUN 17 mg/dL 09/20/2022 21 7 CREAT 0.92 mg/dL 09/20/2022 0.96 0.58 PTSEC No results within date range. INR No results within date range. APTT No results within date range. ALT 12 U/L 09/20/2022 38 7 AST 24 U/L 09/20/2022 35 13 TBILI 0.4 mg/dL 09/20/2022 1.3 0.2 TSH 0.335 mIU/L 06/28/2022 4.200 0.270 Lab Value Units Date High Low HCGQT No results within date range. UHCG No results within date range. HCG, BODY* No results within date range. Lab Value Units Date High Low ABORHD No results within date range. ABSCREEN No results within date range. Hemoglobin A1C Date Value 02/22/2022 8.1 % 10/05/2021 9.6 02/25/2020 9.6 09/03/2018 8.8 % 05/18/2017 10.3 12/08/2016 8.9(ext) 08/18/2016 12.3 % Hemoglobin A1c (%) Date Value 12/17/2014 11.7 09/15/2014 11.7 03/14/2014 12.0 HGB A1C (no units) Date Value 12/19/2019 9.1 09/03/2019 9.1 12/07/2018 8.0 04/27/2018 9.6 PENDING Assessment/Plan I had the pleasure of meeting Claudia today in [facility]. She is using a cane and wheelchair today but uses a walker most of the time. She is able to complete her ADLs at home. She denies CP or SOB. Her anginal equivalent symptoms in 2019 were midsternal chest pain and SOB and she felt poorly. She has not felt that since. She has taken nitro in the past but not in the last recent few months. She is on Imdur. She has +1 BLLE edema. She admits to sleeping upright but states it is due to her GERD. GERD is controlled; takes TUMS rarely. Claudia follows with Gerald Marques for endocrine. Her BS have been higher because she was off of her trulicity and just resumed 30 days ago; last A1C 8.1 and she was already told it has to be <8.0 per Stefanko. She has a continuous monitor on her right arm. She endorses PONV and being a difficult IV stick. She states she has approval to hold her ASA and plavix 5 days. METS: Walk indoors, such as around the house (1.75 METs) Do light work around the house, such as dusting or washing dishes (2.70 METs) Take care of self; that is eating, dressing, bathing, using the toilet (2.75 METs) ANESTHESIA FINDINGS: Intubation History: No history of difficult intubation Significant Anesthesia Considerations: Postop nausea/vomiting, difficult IV access Airway History: No abnormal airway history PLAN Clearance and pending labs Planned Anesthetic: General Instructions Given to Patient: Instructions located in the after visit summary. Patient given verbal and written preop instructions and voices comprehension and compliance. SIGNATURE: Claudine Bell APRN.CNP PATIENT NAME: Derrell German DATE: November 07, 2022 TIME: 11:36 AM * Diana Lutz APRN.CNP - 11/07/2022 11:30 AM EST L5-S1 LIF, L4-S1 PLF with instr 12/08 Stefanko 66yo [place] female, nonsmoker. PMH: obesity hypovent syndrome on bipap (Aries), asthma, HTN, HLD, CAD s/p PCI x2 2019 on imdur, CHF, IDDM on farxiga, CKD3, GERD, thyroid replacement, chapman's palsy. Follows with [facility]. Previous SCS s/p removal 2/2 infection. Already received cardiac clearance at intermediate risk with LD plavix 5 days preop. The OV note from 08/2022 states ok to hold DAPT 7 days. Will need to clarify. ECHO 2019 EF 65, LAE, mild MAC LHC 2019 LAD distal PCI patent, Lcx mid PCI patent. documented in this encounterThe [facility]02-27-[facility]23 Miscellaneous Notes* Telephone Encounter - Kay Newman MA - 10/31/2022 2:28 PM EST Patient notified and scheduled. Paperwork in green folder on PCP desk. Kay Newman MA * Telephone Encounter - Willard Henriquez MD - 10/31/2022 1:25 PM EST Kay, please help get patient set up with pre-op appt. documented in this encounterThe [facility]02-27-2023 Miscellaneous Notes* Telephone Encounter - Kay Newman MA - 10/31/2022 7:30 AM EST Patient has been identified by name and date of : Yes Requested Prescriptions Pending Prescriptions Disp Refills spironolactone (ALDACTONE) 25 mg tablet [Pharmacy Med Name: Spironolactone 25 MG Oral Tablet] 180 tablet 3 Sig: TAKE 1 TABLET BY MOUTH TWICE DAILY RX INSTRUCTIONS: Patient aware RX will be sent to pharmacy. No need to notify patient. Kay Newman MA Scar: 10/2022 Nov; 04/2023 Last refill: 11/2021 documented in this encounterThe [facility]02-20-2023 Instructions* Patient Instructions* Willard Henriquez MD - 10/24/2022 2:33 PM EST Please get labs and urine test done on or after 04/14/2023 prior to your next visit. documented in this encounterThe [facility]02-20-2023 History of Present illness Narrative* Willard Henriquez MD - 10/24/2022 1:58 PM EST Chief Complaint Patient presents with: F/U 6 months HPI Derrell German is a 66 year old female who presents here today for 6 month follow up. Patient with hx of ASHD, DM 2, Hyperlipidemia, HTN, Mild Asthma, hypothyroidism, CKD, morbid obesity, NATALIE, Vit D def, spinal stenosis with neurogenic claudication. A1c is at 8.2 but was at 7.5 but then was of the Trulicty due to shortage. Seeing Dr. Marques. Is getting set up to have low back surgery in the next few months. L4-L5 and L5- S1 with a cage. Along with screws. Still wearing BiPAP and seeing Dr. Chris. Past medical history, appointments, medications, allergies reviewed. Previous Medical History PAST MEDICAL HISTORY Diagnosis Date Advance directive discussed with patient 04/06/2022 Discussed 04/2022 Allergic rhinitis 02/10/2011 ASHD (arteriosclerotic heart disease) 03/08/[address] 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 Seeing NISH ARCINIEGA CYSTIC MASTOPATHY 04/22/2006 GERD (gastroesophageal reflux disease) 08/07/2012 History of Chapman's palsy 10/31/2016 Hyperlipidemia with target LDL less than 100 06/30/2015 Hyperlipidemia, mixed 06/30/2015 Hypertension, essential 06/30/2015 Living will on file 04/06/2022 DPA: Ever () Lumbar radiculopathy 04/28/2020 R L4 radiculopathy 04/2020 Medicare annual wellness visit, initial 04/06/2022 Medicare part B: 11/03/2019 Last done: 04/06/2022 Mild intermittent asthma without complication 02/10/2011 Morbid obesity (HCC) 01/10/2012 Morbid obesity due to excess calories (HCC) 06/30/2015 NATALIE (obstructive sleep apnea) 09/10/2019 On BiPAP and sees Dr. Chris Osteoarthritis of both knees 02/02/2017 Postherpetic neuralgia 03/14/2014 Right mid-trunk area. Postsurgical hypothyroidism Psoriasis 10/23/2017 Rosacea 04/19/2013 Shingles Spinal stenosis of lumbar region without neurogenic claudication 03/19/2021 Seeing Melissa Simpson Stage 3a chronic kidney disease (HCC) 03/19/2021 Type II or unspecified type diabetes mellitus without mention of complication, uncontrolled Uncontrolled type 2 diabetes mellitus with hyperglycemia (HCC) 12/24/[address] Marques Vitamin D deficiency 03/19/2021 Previous Surgical History PAST SURGICAL HISTORY Procedure Laterality Date ANESTH, HYSTERECTOMY 2000 ANESTHESIA NOSE & ACCESSORY SINUSES NOS 1995 CHOLECYSTECTOMY 1989 COLONOSCOPY FLX DX W/COLLJ SPEC WHEN PFRMD 04/18/2011 [facility] HEART CATHETERIZATION 2001 PAST SURGICAL HISTORY OF L. knee PAST SURGICAL HISTORY OF kidney stones PAST SURGICAL HISTORY OF Right 2007 Knee REMV CATARACT EXTRACAP,INSERT LENS Bilateral Rt 08/2019, Lt 11/2019 STRESS TEST ADENOSINE 05/11/2013 THYROIDECTOMY TOTAL/COMPLETE 2000 TONSILLECTOMY HX 1963 Family History FAMILY HISTORY Problem Relation Age of Onset Diabetes Mother Thyroid Mother Diabetes Father Diabetes Paternal Aunt Patient Allergies ALLERGIES Allergen Reactions Diflucan [Fluconazo* Hives Actos [Pioglitazone* Other: See Comments edema Bactrim [Sulfametho* Unknown Betadine [Povidone-* Unknown Fish Unknown Iodine Anaphylaxis IV contrast Lipitor [Atorvastat* Rash, Itching Metformin Diarrhea, GI Upset [place] Unknown Penicillins Unknown Sulfa (Sulfonamide * Unknown Current Medications Current Outpatient Medications on File Prior to Visit Medication Sig potassium chloride (K-TAB) 10 mEq tablet Take 2 tablets by mouth twice daily. levothyroxine (SYNTHROID) 175 mcg tablet Take 1 tablet by mouth once daily. Mon- Sat and 1.5 tabs on Sun. Take on empty stomach. For Thyroid. gabapentin (NEURONTIN) 100 mg capsule 300 mg by mouth three times/day hydroCHLOROthiazide (HYDRODIURIL, ESIDRIX) 12.5 mg tablet Take 1 tablet by mouth once daily. famotidine (PEPCID) 20 mg tablet Take 1 tablet by mouth at bedtime as needed. rosuvastatin (CRESTOR) 20 mg tablet Take 1 tablet by mouth once daily. dapagliflozin (FARXIGA) 10 mg tablet Take by mouth daily with breakfast. Take 1 tablet daily TRULICITY 3 mg/0.5 mL pen injector 4.5 mg daily spironolactone (ALDACTONE) 25 mg tablet Take 1 tablet by mouth twice daily. furosemide (LASIX) 40 mg tablet Take 1 tablet by mouth twice daily. Per [facility] flash glucose sensor (FREESTYLE OCTAVIA 14 DAY SENSOR) kit Apply new sensor every 14 days as directed. E11.65. Insulin: yes EPINEPHrine (EPIPEN) 0.3 mg/0.3 mL auto-injector Use auto-injector x 1 for allergic reaction. Cholecalciferol, Vitamin D3, 125 mcg (5,000 unit) cap Take 1 capsule by mouth once daily. clobetasol (TEMOVATE) 0.05 % ointment Apply to affected area twice daily. isosorbide mononitrate ER (IMDUR) 30 mg 24 hr tablet Take 60 mg by mouth once daily. insulin regular human, CONCENTRATED 500 UNIT/ML, (HUMULIN R) 500 unit/mL soln Inject 15 units ac brkt; 10 unts ac lunch; 15 units ac supper (Patient taking differently: Inject 185 units ac brkt; 175 unts ac lunch; 175 units ac supper (3) 280 if her sugars go up. ) nitroglycerin sublingual (NITROQUICK) 0.4 mg SL tablet Dissolve 1 tablet under the tongue every 5 minutes as needed for Chest Pain. flash glucose scanning reader ([employer] OCTAVIA 14 DAY READER) misc 1 Device every 2 weeks. aspirin (VIJAYA CHEWABLE ASPIRIN) 81 mg chewable tablet Take 81 mg by mouth once daily. fluticasone (FLONASE) 50 mcg/actuation nasal spray Use 2 Sprays in each nostril once daily. clopidogrel (PLAVIX) 75 mg tablet Take 75 mg by mouth once daily. metoprolol succinate ER (TOPROL XL) 25 mg 24 hr tablet Take 1 tablet by mouth twice daily. Insulin Syringe-Needle U-100 (BD INSULIN SYRINGE UF II) 0.5 mL 31 gauge x 5/16 syrg 3 daily for insulin injections. DX: E11.65, Z79.4 Insulin use: yes insulin needles, DISPOSABLE, (BD INSULIN PEN NEEDLE UF) 31 gauge x 5/16 ndle 1 Each twice daily. COMPOUNDED PRESCRIPTION pair of zippered support hose blood sugar diagnostic (FREESTYLE LITE STRIPS) test strip Test blood sugar(s) 4 times daily. Dx: E11.65. Insulin: Yes Lancets lancets Test blood sugar(s) 4 times daily. Dx: 250.02. Insulin: Yes COMPOUNDED PRESCRIPTION Cbc Bmp tsh DX: tachycardia, hypokalemia Please do stat and call to [phone] No current facility-administered medications on file prior to visit. Social History Social History Tobacco Use Smoking status: Never Smokeless tobacco: Never Vaping Use Vaping Use: Never used Substance Use Topics Alcohol use: No Drug use: No Review of Symptoms REVIEW OF SYSTEMS GENERAL: No weight loss, malaise or fevers NECK: Negative for lumps, goiter, pain and significant neck swelling RESPIRATORY: Negative for cough, hemoptysis, wheezing, COPD, dyspnea or shortness of breath CVS: no chest pain, leg swelling or palpitations. GI: No vomiting, or diarrhea and No heartburn or reflux symptoms. Some nausea with the Trulicity. : No history of dysuria, blood ENDOCRINE: has had some lows on occasional and knows how to address. NEURO: No history of headaches, syncope, paralysis, seizures or tremors EXAM: BP 124/74 (BP Site: Right Arm, BP Position: Sitting, BP Cuff Size: Large Adult) Pulse 70 Resp 16 Wt 109.8 kg (242 lb) BMI 44.26 kg/m Last 3 Encounter Wt Readings: Date: Wt: 10/24/2022 109.8 kg (242 lb) 04/06/2022 112.5 kg (248 lb) 01/24/2022 115.1 kg (253 lb 12.8 oz) General Appearance: Well appearing, alert, in no acute distress, well-hydrated, well nourished. andObese. Eyes: Anicteric sclera. Pupils are equally round and reactive to light. Extraocular movements are intact. Has a small stye on the right upper outer eye lid.. Neck: Supple, no adenopathy; thyroid symmetric, normal size, no bruits. Lungs: Lungs clear to auscultation. No wheezing, rhonchi, rales.. Heart: RRR without murmur, gallop, or rubs. No ectopy. Abdomen: Normal abdominal exam, Abdomen soft, non-tender. Bowel sounds normal. No masses, organomegaly. Extremities: No deformities, skin discoloration, Good capillary refill. Minimal edema bilaterally. Peripheral Pulses: Normal. Neurologic: Gait normal. Reflexes normal and symmetric. Sensation to light touch and crainal nerves2-12 intact.. Health Maintenance List HBA1C due on 05/25/2022 MAMMOGRAM due on 07/13/2022 ADVANCE DIRECTIVE DISCUSSION due on 09/04/2022 DEPRESSION ASSESSMENT Never done SHINGRIX VACCINE(2 of 3) due on 04/06/2023 LDL CHOLESTEROL due on 02/22/2023 DIABETIC FOOT EXAM due on 02/22/2023 ANNUAL PCP TEAM CHRONIC DISEASE VISIT due on 04/06/2023 BP CONTROLLED (<130/80) due on 04/06/2023 URINE ALBUMIN:CREATININE RATIO due on 04/26/2023 DILATED RETINAL EXAM due on 08/09/2023 SERUM CREATININE due on 09/20/2023 DTAP,TDAP,TD(4 - Td or Tdap) due on 06/30/2025 COLORECTAL CANCER SCREENING due on 05/24/2027 BONE DENSITY Completed INFLUENZA Completed HEPATITIS C SCREENING Completed COVID-19 VACCINE Completed PNEUMOCOCCAL: 65+ Completed SPIROMETRY Discontinued Data reviewed Component Latest Ref Rng & Units 02/22/2022 04/26/2022 05/10/2022 06/28/2022 09/20/2022 10/04/2022 WBC 3.70 - 11.00 k/uL 11.12 (H) RBC 3.90 - 5.20 m/uL 4.50 Hemoglobin 11.5 - 15.5 g/dL 12.8 Hematocrit 36.0 - 46.0 % 41.3 MCV 80.0 - 100.0 fL 91.8 MCH 26.0 - 34.0 pg 28.4 MCHC 30.5 - 36.0 g/dL 31.0 RDW-CV 11.5 - 15.0 % 14.1 Platelet Count 150 - 400 k/uL 305 MPV 9.0 - 12.7 fL 9.4 Neut% % 70.2 Abs Neut (ANC) 1.45 - 7.50 k/uL 7.80 (H) Lymph% % 20.3 Abs Lymph 1.00 - 4.00 k/uL 2.26 [place]% % 7.2 Abs [place] <0.87 k/uL 0.80 Eosin% % 1.2 Abs Eosin <0.46 k/uL 0.13 Baso% % 0.6 Abs Baso <0.11 k/uL 0.07 Immature Gran % % 0.5 IMMATURE GRANS (ABS) <0.10 k/uL 0.06 NRBC /100 WBC 0.0 Absolute nRBC <0.01 k/uL <0.01 DTYPE Auto NA 136 - 145 mmol/L 138 K 3.5 - 5.1 mmol/L 4.1 Chloride 97 - 105 mmol/L 100 100 CO2 22 - 30 mmol/L 32.0 26 Glucose 74 - 99 mg/dL 115 (A) 297 (H) BUN 7 - 21 mg/dL 15 17 Creatinine 0.58 - 0.96 mg/dL 1.10 0.92 GFR mL/MIN 53 GFR AFR AMER mL/MIN 64 Total Protein 6.4 - 8.2 gm/dL 7.2 Albumin 3.9 - 4.9 g/dL 3.4 3.9 Calcium 8.5 - 10.1 mg/dL 9.7 Bili Total 0.2 - 1 mg/dL 0.30 KYLAH/P 13 - 35 U/L 37 24 ALT (SGPT) 12 - 78 U/L 25 Alk Phos Total 45 - 117 U/L 110 Anion Gap 9 - 18 mmol/L 6 12 BUN/CREATININE RATIO 9 - 20 RATIO 13.6 GLOBULIN 2.2 - 4.2 g/dL 3.8 ALBUMIN/GLOBULIN RATIO 0.9 - 2.4 RATIO 0.9 Protein, Total 6.3 - 8.0 g/dL 6.8 Calcium 8.5 - 10.2 mg/dL 9.1 Bilirubin, Total 0.2 - 1.3 mg/dL 0.4 Alkaline Phosphatase 34 - 123 U/L 86 ALT 7 - 38 U/L 12 Sodium 136 - 144 mmol/L 138 Potassium 3.7 - 5.1 mmol/L 3.1 (L) 4.1 eGFR >=60 mL/min/1.73m 68 Cholesterol, Total 200 mg/dL 114 Triglyceride 131 HDL CHOLESTEROL 40 LDL Cholesterol 48 VLDL Cholesterol 26 Creatinine, Ur Random (UCRR) 20.0 - 300.0 mg/dL 48.7 Albumin, Urine Random mg/L <12.0 Albumin/Creat Ratio <30 mg/g <25 TSH 0.270 - 4.200 mIU/L 0.41 0.048 (L) 0.335 T4,FREE (DIRECT) 0.76 - 1.46 ng/dL 1.51 (A) Vitamin D 25 OH 30 - 100 ng/mL 36.5 Hemoglobin A1C 0 - 5.7 % 8.1 (A) A/P ASSESSMENT/PLAN: 1. Type 2 diabetes mellitus with stage 3a chronic kidney disease, with long-term current use of insulin (HCC) - ICD9: 250.40, 585.3, V58.67, ICD10: E11.22, N18.31, Z79.4 (primary diagnosis) improved control - Continue current medications - Encouraged regular aerobic exercise and weight loss - BP goal of <130/80 - LDL goal of <100 - management per Endo 2. Diabetic eye exam (HCC) - ICD9: V72.0, 250.00, ICD10: Z01.00, E11.9 - up to date 3. Hypertension, essential - ICD9: 401.9, ICD10: I10 - good control - Continue current medication(s) - Recommended regular aerobic exercise. - Recommend home blood pressure monitoring, to bring results in on next visit - Goal of BP <130/80 4. Hyperlipidemia, mixed - ICD9: 272.2, ICD10: E78.2 - good control - Encouraged following a low fat, low cholesterol diet. - Discussed the benefits of regular aerobic exercise and weight loss. - Encouraged following a low carbohydrate, healthy oil intake diet. - Continue current therapy. 5. Gastroesophageal reflux disease, unspecified whether esophagitis present - ICD9: 530.81, ICD10: K21.9 - Continue treatment with Pepcid 20 mg QD 6. Postsurgical hypothyroidism - ICD9: 244.0, ICD10: E89.0 - Instructed patient on importance of taking on an empty stomach either first thing in the morning or at bedtime. - continue current dose of Synthroid 7. Mild intermittent asthma without complication - ICD9: 493.90, ICD10: J45.20 Mild intermittent Asthma stable - Avoidance of triggers recommended 8. ASHD (arteriosclerotic heart disease) - ICD9: 414.00, ICD10: I25.10 - clinically stable no changes and cont f/u with cardio. 9. Stage 3a chronic kidney disease (HCC) - ICD9: 585.3, ICD10: N18.31 - no changes. 10. Morbid obesity due to excess calories (HCC) - ICD9: 278.01, ICD10: E66.01 Weight decreasing - Behavioral intervention 11. NATALIE (obstructive sleep apnea) - ICD9: 327.23, ICD10: G47.33 - benefiting from nightly BiPAP 12. Vitamin D deficiency - ICD9: 268.9, ICD10: E55.9 - cont replacement F/u 6 months extensive check CMP, Lipid, UA, CBC, Vit D and TSH prior. I spent a total of 30 minutes on the date of the service which included preparing to see the patient, [id number] patient care, completing clinical documentation, performing a medically appropriate examination, counseling and educating the patient/family/caregiver and ordering medications, tests, or procedures. Willard Henriquez MD documented in this encounterThe [facility]01-18-2023 Miscellaneous Notes* Telephone Encounter - Carrie Pierre LPN - 09/21/2022 1:08 PM EST Patient is currently taking furosemide 60mg twice a day per [facility]. Gave patient below message and instructed her to start the potassium at this time. Voices understanding. Patient has Potassium 10meq tabs at home. She requests if you reorder any more for her that they be 10meq as she has trouble swallowing the 20s. Patient will take 2 tabs of 10meg twice daily. Does have enough tablets to get her appointment. Carrie Pierre LPN * Telephone Encounter - Willard Henriquez MD - 09/21/2022 12:55 PM EST Find out from Derrell if she still takes the Furosamide 40 mg twice a day. If so then we blake to restart her potassium at 20 Meq twice ad ay and get a repeat potassium in 10-14 days after starting it.. * Telephone Encounter - Carrie Pierre LPN - 09/21/2022 12:50 PM EST Patient telephoned and made aware of message below. States she currently is not taking potassium, Dr. Hudson discontinued some time ago (thinks a year ago). Carrie Pierre LPN * Telephone Encounter - Willard Henriquez MD - 09/21/2022 12:20 PM EST Let patient know her potasium was low on her recent blood work and want to repeat it to make sure she does not require a higher dose of potassium replacement. Order placed. * Telephone Encounter - Freeman Hernandez APRN.SUJATHA WARE - 09/21/2022 8:14 AM EST Team - Patient has an appt with Dr. Henriquez on 10/07. Please inform Dr. Henriquez of recent lab results. Potassium 3.1 Derrell German Component Latest Ref Rng & Units 09/20/2022 Protein, Total 6.3 - 8.0 g/dL 6.8 Albumin 3.9 - 4.9 g/dL 3.9 Calcium 8.5 - 10.2 mg/dL 9.1 Bilirubin, Total 0.2 - 1.3 mg/dL 0.4 Alkaline Phosphatase 34 - 123 U/L 86 AST 13 - 35 U/L 24 ALT 7 - 38 U/L 12 Glucose 74 - 99 mg/dL 297 (H) BUN 7 - 21 mg/dL 17 Creatinine 0.58 - 0.96 mg/dL 0.92 Sodium 136 - 144 mmol/L 138 Potassium 3.7 - 5.1 mmol/L 3.1 (L) Chloride 97 - 105 mmol/L 100 CO2 22 - 30 mmol/L 26 Anion Gap 9 - 18 mmol/L 12 eGFR >=60 mL/min/1.73m 68 Freeman Hernandez APRN.SUJATHA WARE documented in this encounterThe [facility]01-08-2023 Miscellaneous Notes* Telephone Encounter - Ilsa Obrien - 09/11/2022 11:40 AM EST Spoke with patient she declined to schedule an appointment with discuss further with her family physician Ilsa Obrien September 11, 2022 11:41 AM documented in this encounterThe [facility]12-23-2022 Miscellaneous Notes* Telephone Encounter - Nelly Lewis LPN - 08/26/2022 11:05 AM EST Spoke with pt and information listed below given. Pt verbalizes understanding. Nelly Lewis LPN * Telephone Encounter - Padmini Anguiano APRN.CNP - 08/26/2022 9:20 AM EST Please let patient know that I sent in enough refills until her appointment with Dr. Henriquez in October. She is due for a CMP for her medication management which was ordered and should be completed prior to her office visit. * Telephone Encounter - Tigist Funk LPN - 08/26/2022 9:05 AM EST Patient phones requesting refills as follows: Requested Prescriptions Pending Prescriptions Disp Refills gabapentin (NEURONTIN) 100 mg capsule 180 capsule 3 Si mg by mouth three times/day SCAR 04/06/22 10/07/22 Please review and advise. Tigist Funk LPN documented in this [facility]12-23-[facility] Miscellaneous Notes* Telephone Encounter - Tigist Funk LPN - 08/26/2022 9:08 AM EST Patient phones requesting refills as follows: Requested Prescriptions Pending Prescriptions Disp Refills levothyroxine (SYNTHROID) 175 mcg tablet 34 tablet 5 Sig: Take 1 tablet by mouth once daily. Mon- Sat and 1.5 tabs on Sun. Take on empty stomach. For Thyroid. SCAR 04/06/22 10/07/22 Please review and advise. Tigist Funk LPN documented [facility] this [facility] Miscellaneous Notes* Telephone Encounter - Love Freeman LPN - 06/29/2022 2:29 PM EDT Pt notified of same, verbalizes understanding. Love Freeman LPN * Telephone Encounter - Jesica Sierra PA-C - 06/29/2022 2:21 PM EDT Thyroid is back in normal range. Continue current dosing. [facility] Miscellaneous Notes* Telephone Encounter - Nelly Lewis LPN - 06/10/2022 7:39 AM EDT Patient has been identified by name and date of : Yes Patient phones for refill(s): Requested Prescriptions Pending Prescriptions Disp Refills hydroCHLOROthiazide (HYDRODIURIL, ESIDRIX) 12.5 mg tablet 90 tablet 3 Sig: Take 1 tablet by mouth once daily. Date of last office visit in primary care: 04/06/22 next apt 10/07/22 Last 2 Encounter Wt Readings: Date: Wt: 04/06/2022 112.5 kg (248 lb) 01/24/2022 115.1 kg (253 lb 12.8 oz) Previous labs/tests for medication: Blood Pressure: BUN Date Value 02/22/2022 15 MG/DL 04/05/2021 16 mg/dL Sodium (mmol/L) Date Value 04/05/2021 137 NA (mmol/L) Date Value 02/22/2022 138 Last 1 Encounter BP Readings: Date: BP: 04/06/2022 122/84 Thank you. Nelly Lewis LPN documented in [facility] Miscellaneous Notes* Telephone Encounter - Willard Henriquez MD - 06/09/2022 4:48 PM EDT The following approved medication requests have been transmitted electronically. Requested Prescriptions Signed Prescriptions Disp Refills famotidine (PEPCID) 20 mg tablet 90 tablet 1 Sig: Take 1 tablet by mouth at bedtime as needed. Authorizing Provider: WILLARD HENRIQUEZ rosuvastatin (CRESTOR) 20 mg tablet 90 tablet 1 Sig: Take 1 tablet by mouth once daily. Authorizing Provider: WILLARD HENRIQUEZ MD * Telephone Encounter - Nelly Lewis LPN - 06/09/2022 4:40 PM EDT Patient has been identified by name and date of : Yes Patient phones for refill(s): Requested Prescriptions Pending Prescriptions Disp Refills famotidine (PEPCID) 20 mg tablet 90 tablet 3 Sig: Take 1 tablet by mouth at bedtime as needed. rosuvastatin (CRESTOR) 20 mg tablet 90 tablet 3 Sig: Take 1 tablet by mouth once daily. Date of last office visit in primary care: 04/06/22 next apt 10/07/22 Last 2 Encounter Wt Readings: Date: Wt: 04/06/2022 112.5 kg (248 lb) 01/24/2022 115.1 kg (253 lb 12.8 oz) Previous labs/tests for medication: Cholesterol: Triglycerides (mg/dL) Date Value 12/19/2019 122 HDL Cholesterol (no units) Date Value 02/22/2022 40 HDL Cholesterol, Nonfasting (mg/dL) Date Value 03/19/2021 54 LDL Cholesterol (no units) Date Value 02/22/2022 48 LDL Cholesterol, Nonfasting (mg/dL) Date Value 03/19/2021 56 ALT (U/L) Date Value 03/19/2021 22 ALT (SGPT) (U/L) Date Value 02/22/2022 25 Non HDL Cholesterol, Nonfasting (mg/dL) Date Value 03/19/2021 82 Thank you. Nelly Lewis LPN documented in [facility]09[facility] History of Present illness Narrative* Love Freeman LPN - 05/27/2022 7:[address] Garzon's office sending FYI regarding pt's path report from colonoscopy. Love Freeman LPN Scan on 05/26/2022 3:44 PM by External Provider: Pathology documented in this [facility]The [facility]09-07-2022 Miscellaneous Notes* Telephone Encounter - Marcie Sharma Cma - 05/11/2022 8:43 AM EDT Patient notified and verbalized understanding Marcie Sharma Cma * Telephone Encounter - Willard Henriquez MD - 05/10/2022 9:16 PM EDT Let patient know CBC was ok. documented in this [facility]The [facility]08-[facility]22 Miscellaneous Notes* Telephone Encounter - Kay Newman MA - 04/29/2022 8:35 AM EDT Patient notified and voiced understanding. Kay Newman MA * Telephone Encounter - Willard Henriquez MD - 04/28/2022 5:05 PM EDT Let patient know the urine test was ok. Her TSH shows she is getting too much replacement medication. I want to keep her on the levothyroxine 175 mcg pills and instead of taking 2 on Monday only take 1.5 tabs. The other dasy are still one a day. The MAR is corrected. She will need a TSH in 2 months and order placed. * Telephone Encounter - Abby Cox RN - 04/28/2022 5:00 PM EDT Pt called and is notified of providers message and instructions. Pt voices understanding. Pt askingprovider to review her TSH labs and advise. Abby Cox, RN * Telephone Encounter - Willard Henriquez MD - 04/28/2022 4:51 PM EDT Let patient know her CBC could not be run because the blood clotted. I new order has been placed ifshe can come in a do. documented in this [facility]08-[facility] History of Present illness Narrative* Willard Henriquez MD - 04/06/2022 4:00 PM EDT Medicare Yearly Visit Medical B eligibilty date 11/03/2019 Date of last exam NA PAST MEDICAL HISTORY Diagnosis Date Allergic rhinitis 02/10/2011 ASHD (arteriosclerotic heart disease) 03/08/[address] 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 Seeing NISH ARCINIEGA CYSTIC MASTOPATHY 04/22/2006 GERD (gastroesophageal reflux disease) 08/07/2012 History of Chapman's palsy 10/31/2016 Hyperlipidemia with target LDL less than 100 06/30/2015 Hyperlipidemia, mixed 06/30/2015 Hypertension, essential 06/30/2015 Lumbar radiculopathy 04/28/2020 R L4 radiculopathy 04/2020 Medicare annual wellness visit, initial 04/06/2022 Medicare part B: 11/03/2019 Last done: 04/06/2022 Morbid obesity (HCC) 01/10/2012 Morbid obesity due to excess calories (HCC) 06/30/2015 NATALIE (obstructive sleep apnea) 09/10/2019 On BiPAP and sees Dr. Chris Osteoarthritis of both knees 02/02/2017 Postherpetic neuralgia 03/14/2014 Right mid-trunk area. Postsurgical hypothyroidism Psoriasis 10/23/2017 Rosacea 04/19/2013 Shingles Spinal stenosis of lumbar region without neurogenic claudication 03/19/2021 Seeing Melissa Simpson Stage 3a chronic kidney disease (HCC) 03/19/2021 Type II or unspecified type diabetes mellitus without mention of complication, uncontrolled Vitamin D deficiency 03/19/2021 PAST SURGICAL HISTORY Procedure Laterality Date ANESTH, HYSTERECTOMY 2000 ANESTHESIA NOSE & ACCESSORY SINUSES NOS 1996 CHOLECYSTECTOMY 1989 COLONOSCOPY FLX DX W/COLLJ SPEC WHEN PFRMD 04/18/2011 [facility] HEART CATHETERIZATION 2001 PAST SURGICAL HISTORY OF L. knee PAST SURGICAL HISTORY OF kidney stones PAST SURGICAL HISTORY OF Right 2007 Knee REMV CATARACT EXTRACAP,INSERT LENS Bilateral Rt 08/2019, Lt 11/2019 STRESS TEST ADENOSINE 05/11/2013 THYROIDECTOMY TOTAL/COMPLETE 2000 TONSILLECTOMY HX 1963 ALLERGIES: Diflucan [Fluconazole], Actos [Pioglitazone Hcl], Bactrim [Sulfamethoxazole- Trimethoprim], Betadine[Povidone-Iodine], Fish, Iodine, Lipitor [Atorvastatin Calcium], Metformin, [place], Penicillins, and Sulfa (Sulfonamide Antibiotics) Medications reviewed: Yes FAMILY HISTORY Problem Relation Age of Onset Diabetes Mother Thyroid Mother Diabetes Father Diabetes Paternal Aunt SOCIAL HISTORY: Social History Tobacco Use Smoking status: Never Smoker Smokeless tobacco: Never Used Vaping Use Vaping Use: Never used Substance Use Topics Alcohol use: No Drug use: No Derrell denies regular aerobic exercise. She watches her diet for sodium, low fat and low cholesterolmost of the time. List of current specialists seen: Dr. Marques (Endo) Dr. Hudson (cardio) Dr. Chris (pulm) Dr. Yeager (Derm) Melissa aviles End of Live Planning discussed including patients advanced directive wishes: Yes I am willing to follow Derrell's advanced directives. PHQ-2 / Depression screen Depression Screening 01/22/2018 02/05/2019 04/27/2020 04/06/2022 PHQ-2 Score 0 0 0 0 BEVERLY-2 Total Score - - - - Depression screening tool completed and reviewed. Based on score and interview, patient is not at risk for depression. Screening tool discussed with patient, and I recommended no further interventionat this time. Functional Ability/Safety Screen 1. Was the patient's timed Up and Go test unsteady or longer than 30 seconds? has diffculty and uses a walker. 2. Does the patient need help with the phone, transportation, shopping,preparing meals, housework, laundry, medications or managing money? No 3. Does your home have rugs in the hallway, lack of grab bars in the bathroom, lack of handrails onthe stairs or have poor lighting? No Hearing Evaluation: normal PHYSICAL EXAM BP 122/84 (BP Site: Right Arm, BP Position: Standing, BP Cuff Size: Large Adult) Pulse 84 Resp 16 Ht 157.5 cm (5' 2) Wt 112.5 kg (248 lb) BMI 45.36 kg/m Alert and oriented X 3: YES Body mass index is 45.36 kg/m . Visual acuity: seeing optho See below ASSESSMENT/PLAN: 66 year old female The following prevention plan was discussed during the office visit and provided to the patient: See below Willard Henriquez MD Chief Complaint Patient presents with: Physical HPI Derrell German is a 66 year old female who presents here today for extensive Visit. First time seeing the patient. Patient with hx of ASHD, DM 2, Hyperlipidemia, HTN, Mild Asthma, hypothyroidism, CKD, morbid obesity, NATALIE, Vit D def, spinal stenosis with neurogenic claudication. Patient continues to follow with cardio, Endo, Pulm on a regular basis. Patient still waiting to get her spine stimulate in place once her A1c is low enough. Most recent was 8.1% Past medical history, appointments, medications, allergies reviewed. 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 Benign hypertension 06/30/2015 DDD (degenerative disc disease), lumbar 03/19/2021 DIFFUS CYSTIC MASTOPATHY 04/22/2006 GERD (gastroesophageal reflux disease) 08/07/2012 Hyperlipidemia with target LDL less than 100 06/30/2015 Morbid obesity (HCC) 01/10/2012 Postsurgical hypothyroidism Psoriasis 10/23/2017 Rosacea 04/19/2013 Shingles Spinal stenosis of lumbar region without neurogenic claudication 03/19/2021 Seeing Melissa Simpson Type II or unspecified type diabetes mellitus without mention of complication, uncontrolled Vitamin D deficiency 03/19/2021 Previous Surgical History PAST SURGICAL HISTORY Procedure Laterality Date ANESTH, HYSTERECTOMY 2000 ANESTHESIA NOSE & ACCESSORY SINUSES NOS 1995 CHOLECYSTECTOMY 1989 COLONOSCOPY FLX DX W/COLLJ SPEC WHEN PFRMD 04/18/2011 [facility] HEART CATHETERIZATION 2001 PAST SURGICAL HISTORY OF L. knee PAST SURGICAL HISTORY OF kidney stones PAST SURGICAL HISTORY OF Right 2007 Knee REMV CATARACT EXTRACAP,INSERT LENS Bilateral Rt 08/2019, Lt 11/2019 STRESS TEST ADENOSINE 05/11/2013 THYROIDECTOMY TOTAL/COMPLETE 2000 TONSILLECTOMY HX 1963 Family History FAMILY HISTORY Problem Relation Age of Onset Diabetes Mother Thyroid Mother Diabetes Father Diabetes Paternal Aunt Patient Allergies ALLERGIES Allergen Reactions Diflucan [Fluconazo* Hives Actos [Pioglitazone* Other: See Comments edema Bactrim [Sulfametho* Unknown Betadine [Povidone-* Unknown Fish Unknown Iodine Anaphylaxis IV contrast Lipitor [Atorvastat* Rash, Itching Metformin Diarrhea, GI Upset [place] Unknown Penicillins Unknown Sulfa (Sulfonamide * Unknown Current Medications Current Outpatient Medications on File Prior to Visit Medication Sig TRULICITY 3 mg/0.5 mL pen injector INJECT THE CONTENTS OF ONE SYRINGE SUBCUTANEOUSLY ONCE A WEEK. levothyroxine (SYNTHROID) 175 mcg tablet Take 1 tablet by mouth once daily. Mon- Sat and two on Sun. Take on empty stomach. For Thyroid. gabapentin (NEURONTIN) 100 mg capsule 300 mg by mouth three times/day Do not start before January 02, 2022. hydroCHLOROthiazide 12.5 mg capsule Take 1 capsule by mouth once daily. spironolactone (ALDACTONE) 25 mg tablet Take 1 tablet by mouth twice daily. furosemide (LASIX) 40 mg tablet Take 1 tablet by mouth twice daily. Per [facility] potassium chloride 20 mEq TbER Take 1 tablet by mouth twice daily. Per [facility] famotidine (PEPCID) 20 mg tablet Take 1 tablet by mouth at bedtime as needed. rosuvastatin (CRESTOR) 20 mg tablet Take 1 tablet by mouth once daily. flash glucose sensor (FREESTYLE OCTAVIA 14 DAY SENSOR) kit Apply new sensor every 14 days as directed. E11.65. Insulin: yes EPINEPHrine (EPIPEN) 0.3 mg/0.3 mL auto-injector Use auto-injector x 1 for allergic reaction. Cholecalciferol, Vitamin D3, 125 mcg (5,000 unit) cap Take 1 capsule by mouth once daily. clobetasol (TEMOVATE) 0.05 % ointment Apply to affected area twice daily. isosorbide mononitrate ER (IMDUR) 30 mg 24 hr tablet Take 30 mg by mouth once daily. insulin regular human, CONCENTRATED 500 UNIT/ML, (HUMULIN R) 500 unit/mL soln Inject 15 units ac brkt; 10 unts ac lunch; 15 units ac supper nitroglycerin sublingual (NITROQUICK) 0.4 mg SL tablet Dissolve 1 tablet under the tongue every 5 minutes as needed for Chest Pain. flash glucose scanning reader (MAD Incubator OCTAVIA 14 DAY READER) misc 1 Device every 2 weeks. aspirin (VIJAYA CHEWABLE ASPIRIN) 81 mg chewable tablet Take 81 mg by mouth once daily. fluticasone (FLONASE) 50 mcg/actuation nasal spray Use 2 Sprays in each nostril once daily. clopidogrel (PLAVIX) 75 mg tablet Take 75 mg by mouth once daily. metoprolol succinate ER (TOPROL XL) 25 mg 24 hr tablet Take 1 tablet by mouth twice daily. Insulin Syringe-Needle U-100 (BD INSULIN SYRINGE UF II) 0.5 mL 31 gauge x 5/16 syrg 3 daily for insulin injections. DX: E11.65, Z79.4 Insulin use: yes insulin needles, DISPOSABLE, (BD INSULIN PEN NEEDLE UF) 31 gauge x 5/16 ndle 1 Each twice daily. COMPOUNDED PRESCRIPTION pair of zippered support hose blood sugar diagnostic (FREESTYLE LITE STRIPS) test strip Test blood sugar(s) 4 times daily. Dx: E11.65. Insulin: Yes Lancets lancets Test blood sugar(s) 4 times daily. Dx: 250.02. Insulin: Yes COMPOUNDED PRESCRIPTION Cbc Bmp tsh DX: tachycardia, hypokalemia Please do stat and call to [phone] No current facility-administered medications on file prior to visit. Social History Social History Tobacco Use Smoking status: Never Smoker Smokeless tobacco: Never Used Vaping Use Vaping Use: Never used Substance Use Topics Alcohol use: No Drug use: No Review of Symptoms REVIEW OF SYSTEMS GENERAL: No unintentional weight loss, malaise or fevers HEENT: Negative for frequent or significant headaches, No changes in hearing or vision, no nose bleeds or other nasal problems. Just allergies. NECK: Negative for lumps, goiter, pain and significant neck swelling RESPIRATORY: Negative for cough, hemoptysis, wheezing, COPD, dyspnea or shortness of breath CARDIOVASCULAR: Negative for chest pain, hypertension, CHF or palpitations. Swelling of feet has decreased. GI: No nausea, vomiting, or diarrhea, No heartburn or reflux symptoms and blood : No history of dysuria, blood MUSCULOSKELETAL: has chronic back pain SKIN: Negative for lesions, rash, and itching PSYCH: Negative for sleep disturbance, mood disorder and recent psychosocial stressors HEMATOLOGY/LYMPHOLOGY: Negative for prolonged bleeding, bruising easily or swollen nodes ENDOCRINE: Negative for cold or heat intolerance. Has had occasional low BS's and working with Endo. NEURO: No history of headaches, syncope, paralysis, seizures or tremors EXAM: BP 122/84 (BP Site: Right Arm, BP Position: Standing, BP Cuff Size: Large Adult) Pulse 84 Resp 16 Ht 157.5 cm (5' 2) Wt 112.5 kg (248 lb) BMI 45.36 kg/m Last 5 Encounter Wt Readings: Date: Wt: 04/06/2022 112.5 kg (248 lb) 01/24/2022 115.1 kg (253 lb 12.8 oz) 11/05/2021 120.2 kg (265 lb) 03/19/2021 122.9 kg (271 lb) 10/29/2020 118.8 kg (262 lb) General Appearance: Well appearing, alert, in no acute distress, well-hydrated, well nourished. andMorbidly obese. Head: Normocephalic, no masses, lesions, tenderness or abnormalities. Eyes: Anicteric sclera. Pupils are equally round and reactive to light. Extraocular movements are intact. . Ears: External ears, TM's normal, canals clear. Neck: Supple, no adenopathy; thyroid symmetric, normal size, no bruits. Lungs: Lungs clear to auscultation. No wheezing, rhonchi, rales.. Heart: RRR without murmur, gallop, or rubs. No ectopy. Abdomen: Normal abdominal exam, Abdomen soft, non-tender. Bowel sounds normal. No masses, organomegaly. Extremities: No deformities, edema, skin discoloration, Good capillary refill. . Musculoskeletal: Muscular strength intact, No joint swelling, deformity, or tenderness. Peripheral Pulses: Normal. Neurologic: Gait normal. Sensation to light touch and crainal nerves 2-12 intact.. Health Maintenance List SPIROMETRY Never done PNEUMOCOCCAL: 65+(2 - PCV) due on 05/23/2014 SHINGRIX VACCINE(2 of 3) due on 03/13/2015 DIABETIC FOOT EXAM due on 09/10/2020 COLORECTAL CANCER SCREENING due on 04/18/2021 ADVANCE DIRECTIVE DISCUSSION Never done COVID-19 VACCINE(3 - Booster for Kalani series) due on 11/20/2021 DILATED RETINAL EXAM due on 12/04/2021 HBA1C due on 01/02/2022 HEMOGLOBIN/HEMATOCRIT due on 03/19/2022 SERUM CREATININE due on 04/05/2022 URINE ALBUMIN:CREATININE RATIO due on 03/19/2022 INFLUENZA(1) due on 05/05/2022 MAMMOGRAM due on 07/13/2022 ANNUAL PCP TEAM CHRONIC DISEASE VISIT due on 01/24/2023 BP CONTROLLED (<130/80) due on 01/24/2023 LDL CHOLESTEROL due on 02/22/2023 DTAP,TDAP,TD(4 - Td or Tdap) due on 06/30/2025 BONE DENSITY Completed HEPATITIS C SCREENING Completed DEPRESSION SCREENING Discontinued Data reviewed Component Latest Ref Rng & Units 02/22/2022 NA 136 - 145 mmol/L 138 K 3.5 - 5.1 mmol/L 4.1 Chloride 98 - 107 MEQ/L 100 CO2 21 - 32 MEQ/L 32.0 Glucose 74 - 106 MG/DL 115 (A) BUN 7 - 18 MG/DL 15 Creatinine 0.6 - 1.3 MG/DL 1.10 GFR mL/MIN 53 GFR AFR AMER mL/MIN 64 Total Protein 6.4 - 8.2 gm/dL 7.2 Albumin 3.2 - 4.6 gm/dL 3.4 Calcium 8.5 - 10.1 mg/dL 9.7 Bili Total 0.2 - 1 mg/dL 0.30 AST 8 - 37 U/L 37 ALT (SGPT) 12 - 78 U/L 25 Alk Phos Total 45 - 117 U/L 110 Anion Gap 5 - 15 mg/dL 6 BUN/CREATININE RATIO 9 - 20 RATIO 13.6 GLOBULIN 2.2 - 4.2 g/dL 3.8 ALBUMIN/GLOBULIN RATIO 0.9 - 2.4 RATIO 0.9 Cholesterol, Total 200 mg/dL 114 Triglyceride 131 HDL CHOLESTEROL 40 LDL Cholesterol 48 VLDL Cholesterol 26 TSH 0.2 - 5.6 IU/ml 0.41 T4,FREE (DIRECT) 0.76 - 1.46 ng/dL 1.51 (A) Vitamin D 25 OH 30 - 100 ng/mL 36.5 Hemoglobin A1C 0 - 5.7 % 8.1 (A) A/P ASSESSMENT/PLAN: 1. Medicare annual wellness visit, initial - ICD9: V70.0, ICD10: Z00.00 (primary diagnosis) - Counseled on healthy diet and regular exercise - Calcium intake with supplements or by diet of 1000 mg/day for under 50, 1200- 1500 mg/day for 50+ - Patient was counseled [id number] by myself (the billing provider) for the following immunizations and vaccine components, including side effects: Pneumococcal PCV-20. Patient consents for immunization and understands risks and benefits. A VIS sheet on each immunization was given to the patient. - Follow up for annual exam in one year 2. Diabetes mellitus type 2 (HCC) - ICD9: 250.00, ICD10: E11.9 uncontrolled improved control - Continue current medications - Encouraged regular aerobic exercise and weight loss - BP goal of <130/80 - LDL goal of <100 - Management per Endo Check - ALBUMIN/CREAT RATIO RND UR - CBC + DIFF 3. Uncontrolled type 2 diabetes mellitus with hyperglycemia (HCC) - ICD9: 250.02, ICD10: E11.65 - As per #2 - ALBUMIN/CREAT RATIO RND UR - CBC + DIFF 4. Hypertension, essential - ICD9: 401.9, ICD10: I10 - good control - Continue current medication(s) - Recommended regular aerobic exercise. - Recommend home blood pressure monitoring, to bring results in on next visit - Goal of BP <130/80 5. Hyperlipidemia, mixed - ICD9: 272.2, ICD10: E78.2 - good control - Encouraged following a low fat, low cholesterol diet. - Discussed the benefits of regular aerobic exercise and weight loss. - Encouraged following a low carbohydrate, healthy oil intake diet. - Continue current therapy. 6. Postsurgical hypothyroidism - ICD9: 244.0, ICD10: E89.0 - Instructed patient on importance of taking on an empty stomach either first thing in the morning or at bedtime. - continue current dose of Synthroid Check - TSH BLD 7. Gastroesophageal reflux disease, unspecified whether esophagitis present - ICD9: 530.81, ICD10: K21.9 - Continue treatment with Pepcid 20 mg QD 8. ASHD (arteriosclerotic heart disease) - ICD9: 414.00, ICD10: I25.10 - Clinically stable no changes cont f/u with cardio 9. Stage 3a chronic kidney disease (HCC) - ICD9: 585.3, ICD10: N18.31 Stable - CBC + DIFF 10. Mild intermittent asthma without complication - ICD9: 493.90, ICD10: J45.20 Mild intermittent Asthma stable - Avoidance of triggers recommended 11. Morbid obesity due to excess calories (HCC) - ICD9: 278.01, ICD10: E66.01 Weight decreasing - Behavioral intervention 12. NATALIE (obstructive sleep apnea) - ICD9: 327.23, ICD10: G47.33 - Management per sleep Med. 13. Vitamin D deficiency - ICD9: 268.9, ICD10: E55.9 - controlled 14. Spinal stenosis of lumbar region without neurogenic claudication - ICD9: 724.02, ICD10: M48.061 - Seeing ortho - Cont gabapentin 15. Lumbar radiculopathy - ICD9: 724.4, ICD10: M54.16 - Chronic, stable 16. Psoriasis - ICD9: 696.1, ICD10: L40.9 - Per derm 17. Living will on file - ICD9: V49.89, ICD10: Z87.898 - In chart and reviewed 18. Advance directive discussed with patient - ICD9: V65.49, ICD10: Z71.89 - As per #19 19. Screening for colon cancer - ICD9: V76.51, ICD10: Z12.11 - CONSULT TO GENERAL SURGERY 20. Encounter for immunization - ICD9: V03.89, ICD10: Z23 - PNEUMOCOCCAL VACCINE (PREVNAR 20): given F/u 6 months routine I spent a total of 40 minutes on the date of the service which included preparing to see the patient, [id number] patient care, completing clinical documentation, performing a medically appropriate examination, counseling and educating the patient/family/caregiver and ordering medications, tests, or procedures. Willard Henriquez MD documented in this [facility]The [facility]07[facility] Miscellaneous Notes* Telephone Encounter - Love Freeman LPN - 03/14/2022 3:09 PM EDT Received fax from Carey SHANNON requesting office notes related to pt's Octavia. Notes faxed back as requested also noted on fax that pt sees Dr Marques/Debbie. Love Freeman LPN documented in this encounterThe [facility]06-28-2022 Miscellaneous Notes* Telephone Encounter - Love Freeman LPN - 03/01/2022 7:51 AM EDT Letter placed in Med Rec. Pt notified of same. Love Freeman LPN * Telephone Encounter - Jesica Sierra PA-C - 03/01/2022 7:40 AM EDT Letter ready documented in this encounterThe [facility]06-[facility] History of Present illness Narrative* Love Freeman LPN - 02/25/2022 6:38 AM EDT Scan on 02/24/2022 4:46 PM by External Provider: Consultation - Cardiology documented [facility] Instructions* Patient Instructions* Za Stearns APRN.CNP - 01/24/2022 1:53 PM EDT 1. Start the macrobid. 2. Push fluids. 3. We'll send urine for culture. We'll let you know when that is back. 4. If you develop any severe pain, fever/chills, inability to urinate, etc -- to the ER. documented in this [facility] History of Present illness Narrative* Za Stearns APRN.ENROLLMENT REPRESENTATIVE - 01/24/2022 1:43 PM EDT This is a 66 year old female who presents today with: Patient presents with: Hematuria: x3 days with painful urination HISTORY OF PRESENT ILLNESS: Derrell German is a 66 year old female. Patient presents with: Hematuria: x3 days with painful urination Pt presents today with UTI symptoms/hematuria. Refers that she noticed hematuria 3 days ago. It did improved with increased fluid intake, but then started again this morning. + dysuria. + frequency. + urgency. No fevers/chills. A little bit of leaking urine. Chronic back pain. No abdominal pain. Hx of kidney stones. 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 Benign hypertension 06/30/2015 DDD (degenerative disc disease), lumbar 03/19/2021 DIFFUS CYSTIC MASTOPATHY 04/22/2006 GERD (gastroesophageal reflux disease) 08/07/2012 Hyperlipidemia with target LDL less than 100 06/30/2015 Morbid obesity (HCC) 01/10/2012 Postsurgical hypothyroidism Psoriasis 10/23/2017 Rosacea 04/19/2013 Shingles Spinal stenosis of lumbar region without neurogenic claudication 03/19/2021 Seeing Melissa Simpson Type II or unspecified type diabetes mellitus without mention of complication, uncontrolled Vitamin D deficiency 03/19/2021 PAST SURGICAL HISTORY Procedure Laterality Date ANESTH, HYSTERECTOMY 2000 ANESTHESIA NOSE & ACCESSORY SINUSES NOS 1995 CHOLECYSTECTOMY 1989 COLONOSCOPY FLX DX W/COLLJ SPEC WHEN PFRMD 04/18/2011 [facility] HEART CATHETERIZATION 2001 PAST SURGICAL HISTORY OF L. knee PAST SURGICAL HISTORY OF kidney stones PAST SURGICAL HISTORY OF Right 2007 Knee REMV CATARACT EXTRACAP,INSERT LENS Bilateral Rt 08/2019, Lt 11/2019 STRESS TEST ADENOSINE 05/11/2013 THYROIDECTOMY TOTAL/COMPLETE 2000 TONSILLECTOMY HX 1963 ALLERGIES Diflucan [Fluconazole], Actos [Pioglitazone Hcl], Bactrim [Sulfamethoxazole-Trimethoprim], Betadine [Povidone-Iodine], Fish, Iodine, Lipitor [Atorvastatin Calcium], Metformin, [place], Penicillins, and Sulfa (Sulfonamide Antibiotics) MEDICATIONS Current Outpatient Medications Medication Sig TRULICITY 3 mg/0.5 mL pen injector INJECT THE CONTENTS OF ONE SYRINGE SUBCUTANEOUSLY ONCE A WEEK. levothyroxine (SYNTHROID) 175 mcg tablet Take 1 tablet by mouth once daily. Mon- Sat and two on Sun. Take on empty stomach. For Thyroid. gabapentin (NEURONTIN) 100 mg capsule 300 mg by mouth three times/day Do not start before January 02, 2022. hydroCHLOROthiazide 12.5 mg capsule Take 1 capsule by mouth once daily. spironolactone (ALDACTONE) 25 mg tablet Take 1 tablet by mouth twice daily. furosemide (LASIX) 40 mg tablet Take 1 tablet by mouth twice daily. Per [facility] potassium chloride 20 mEq TbER Take 1 tablet by mouth twice daily. Per [place] [facility] famotidine (PEPCID) 20 mg tablet Take 1 tablet by mouth at bedtime as needed. rosuvastatin (CRESTOR) 20 mg tablet Take 1 tablet by mouth once daily. flash glucose sensor ([employer] TransportSTYLE OCTAVIA 14 DAY SENSOR) kit Apply new sensor every 14 days as directed. E11.65. Insulin: yes EPINEPHrine (EPIPEN) 0.3 mg/0.3 mL auto-injector Use auto-injector x 1 for allergic reaction. Cholecalciferol, Vitamin D3, 125 mcg (5,000 unit) cap Take 1 capsule by mouth once daily. clobetasol (TEMOVATE) 0.05 % ointment Apply to affected area twice daily. isosorbide mononitrate ER (IMDUR) 30 mg 24 hr tablet Take 30 mg by mouth once daily. insulin regular human, CONCENTRATED 500 UNIT/ML, (HUMULIN R) 500 unit/mL soln Inject 15 units ac brkt; 10 unts ac lunch; 15 units ac supper nitroglycerin sublingual (NITROQUICK) 0.4 mg SL tablet Dissolve 1 tablet under the tongue every 5 minutes as needed for Chest Pain. flash glucose scanning reader (MAD Incubator OCTAVIA 14 DAY READER) misc 1 Device every 2 weeks. aspirin (VIJAYA CHEWABLE ASPIRIN) 81 mg chewable tablet Take 81 mg by mouth once daily. fluticasone (FLONASE) 50 mcg/actuation nasal spray Use 2 Sprays in each nostril once daily. clopidogrel (PLAVIX) 75 mg tablet Take 75 mg by mouth once daily. metoprolol succinate ER (TOPROL XL) 25 mg 24 hr tablet Take 1 tablet by mouth twice daily. Insulin Syringe-Needle U-100 (BD INSULIN SYRINGE UF II) 0.5 mL 31 gauge x 5/16 syrg 3 daily for insulin injections. DX: E11.65, Z79.4 Insulin use: yes insulin needles, DISPOSABLE, (BD INSULIN PEN NEEDLE UF) 31 gauge x 5/16 ndle 1 Each twice daily. COMPOUNDED PRESCRIPTION pair of zippered support hose blood sugar diagnostic (FREESTYLE LITE STRIPS) test strip Test blood sugar(s) 4 times daily. Dx: E11.65. Insulin: Yes Lancets lancets Test blood sugar(s) 4 times daily. Dx: 250.02. Insulin: Yes COMPOUNDED PRESCRIPTION Cbc Bmp tsh DX: tachycardia, hypokalemia Please do stat and call to [phone] No current facility-administered medications for this visit. FAMILY HISTORY Problem Relation Age of Onset Diabetes Mother Thyroid Mother Diabetes Father Diabetes Paternal Aunt Social History Tobacco Use Smoking status: Never Smoker Smokeless tobacco: Never Used Vaping Use Vaping Use: Never used Substance Use Topics Alcohol use: No Drug use: No EXAM: BP 124/72 Pulse 89 Resp 18 Wt 115.1 kg (253 lb 12.8 oz) SpO2 98% BMI 46.42 kg/m PHYSICAL EXAM: General Appearance: Well appearing, alert, in no acute distress, well-hydrated, well nourished.. Skin: Skin color, texture, turgor normal, no suspicious rashes or lesions. Head: Normocephalic, no masses, lesions, tenderness or abnormalities. Eyes: Anicteric sclera. Pupils are equally round and reactive to light. Extraocular movements are intact. . Lungs: Lungs clear to auscultation. No wheezing, rhonchi, rales.. Heart: RRR without murmur, gallop, or rubs. No ectopy. Abdomen: Abdomen soft, non-tender. Bowel sounds normal. No masses, organomegaly, Negative CVA tenderness. Neurologic: Gait normal. ASSESSMENT/PLAN: 1. Acute cystitis with hematuria - ICD9: 595.0, ICD10: N30.01 (primary diagnosis) Urine w/ nitrites, gross blood, leuks. Will go ahead and start macrobid. Discussed w/ patient that if urine culture returns negative, will likely need cystoscopy. Also discussed with patient if she should have worsening symptoms (fever/chills, pain, vomiting, inability to urinate), she should proceed to the ER. - NITROFURANTOIN MONOHYDRATE & MACROCRYSTAL 100 MG ORAL CAP 2. UTI symptoms - ICD9: 788.99, ICD10: R39.9 - UA DIP, URINE (POC) - URINALYSIS, WITH MICROSCOPIC - URINE CULTURE Discussed treatment plan and patient voices understanding. Patient's questions answered appropriately. Medications and potential side effects were discussed and patient voices understanding. Return to the office as scheduled or as needed for worsening/no improvement. Za Stearns APRN.CHAZ documented in [facility] Miscellaneous Notes* Telephone Encounter - Chantell Carmona Ma - 01/14/2022 2:31 PM EDT Last office visit: 11/05/21 F/u scheduled: 04/06/22 Chantell Carmona Ma documented in this encounterThe [facility]10[facility] Hospital Discharge instructions Patient Education 06/22/2021 16:06:42 General Anesthesia, Adult, Care After General Anesthesia, Adult, Care After This sheet gives you information about how to care for yourself after your procedure. Your health care provider may also give you more specific instructions. If you have problems or questions, contact your health care provider. What can I expect after the procedure? After the procedure, the following side effects are common: Pain or discomfort at the IV site. Nausea. Vomiting. Sore throat. Trouble concentrating. Feeling cold or chills. Weak or tired. Sleepiness and fatigue. Soreness and body aches. These side effects can affect parts of the body that were not involved in surgery. Follow these instructions at home: For at least 24 hours after the procedure: Have a responsible adult stay with you. It is important to have someone help care for you until youare awake and alert. Rest as needed. Do not: ?Participate in activities in which you could fall or become injured. ?Drive. ?Use heavy machinery. ?Drink alcohol. ?Take sleeping pills or medicines that cause drowsiness. ?Make important decisions or sign legal documents. ?Take care of children on your own. Eating and drinking Follow any instructions from your health care provider about eating or drinking restrictions. When you feel hungry, start by eating small amounts of foods that are soft and easy to digest (bland), such as toast. Gradually return to your regular diet. Drink enough fluid to keep your urine pale yellow. If you vomit, rehydrate by drinking water, juice, or clear broth. General instructions If you have sleep apnea, surgery and certain medicines can increase your risk for breathing problems. Follow instructions from your health care provider about wearing your sleep device: ?Anytime you are sleeping, including during daytime naps. ?While taking prescription pain medicines, sleeping medicines, or medicines that make you drowsy. Return to your normal activities as told by your health care provider. Ask your health care provider what activities are safe for you. Take cvhf-asx-cwezwvy and prescription medicines only as told by your health care provider. If you smoke, do not smoke without supervision. Keep all follow-up visits as told by your health care provider. This is important. Contact a health care provider if: You have nausea or vomiting that does not get better with medicine. You cannot eat or drink without vomiting. You have pain that does not get better with medicine. You are unable to pass urine. You develop a skin rash. You have a fever. You have redness around your IV site that gets worse. Get help right away if: You have difficulty breathing. You have chest pain. You have blood in your urine or stool, or you vomit blood. Summary After the procedure, it is common to have a sore throat or nausea. It is also common to feel tired. Have a responsible adult stay with you for the first 24 hours after general anesthesia. It is important to have someone help care for you until you are awake and alert. When you feel hungry, start by eating small amounts of foods that are soft and easy to digest (bland), such as toast. Gradually return to your regular diet. Drink enough fluid to keep your urine pale yellow. Return to your normal activities as told by your health care provider. Ask your health care provider what activities are safe for you. This information is not intended to replace advice given to you by your health care provider. Make sure you discuss any questions you have with your health care provider. Document Released: 11/27/2001 Document Revised: 08/24/2018 Document Reviewed: 04/06/2018 [employer] Patient Education 2020 [email or web address]. 06/22/2021 16:05:30 Outpatient Surgery, Adult, Care After Outpatient Surgery, Adult, Care After These instructions provide you with information about caring for yourself after your procedure. Your health care provider may also give you more specific instructions. Your treatment has been plannedaccording to current medical practices, but problems sometimes occur. Call your health care provider if you have any problems or questions after your procedure. What can I expect after the procedure? After the procedure, it is common to have: Tenderness and numbness at the surgical site. Swelling and bruising around the surgical site. Nausea. Follow these instructions at home: For at least 24 hours after the procedure: Have a responsible adult stay with you. It is important to have someone help care for you until youare awake and alert. Rest as needed. Do not: ?Participate in activities in which you could fall or become injured. ?Drive. ?Use heavy machinery. ?Drink alcohol. ?Take sleeping pills or medicines that cause drowsiness. ?Make important decisions or sign legal documents. ?Take care of children on your own. Activity Return to your normal activities as told by your health care provider. Ask your health care provider what activities are safe for you. Do not lift anything that is heavier than 10 lb (4.5 kg), or the limit that your health care provider tells you, until your health care provider says it is okay. Do not play contact sports until your health care provider says it is okay. Incision care Follow instructions from your health care provider about how to take care of an incision, if you have one. Make sure you: ?Wash your hands with soap and water before you change your bandage (dressing). If soap and water are not available, use hand loan operations specialist. ?Change your dressing as told by your health care provider. ?Leave stitches (sutures), skin glue, or adhesive strips in place. These skin closures may need to stay in place for 2 weeks or longer. If adhesive strip edges start to loosen and curl up, you may trim the loose edges. Do not remove adhesive strips completely unless your health care provider tells you to do that. Check your incision area every day for signs of infection. Check for: ?More redness, swelling, or pain. ?More fluid or blood. ?Warmth. ?Pus or a bad smell. Medicines Take mfqr-qdv-vuxkruw and prescription medicines only as told by your health care provider. Do not drive or use heavy machinery while taking prescription pain medicines. Eating and drinking Follow the diet recommended by your health care provider. When you are hungry, begin eating light and bland foods such as toast. Gradually return to your regular diet. If you vomit: ?Drink water, juice, or soup when you can drink without vomiting. ?Make sure you have little or no nausea before eating solid foods. General instructions If you have sleep apnea, surgery and certain medicines can increase your risk for breathing problems. Follow instructions from your HCP about wearing your sleep device: ?Anytime you are sleeping, including during daytime naps. ?While taking prescription pain medicines, sleeping medicines, or medicines that make you drowsy. Do not use any tobacco products, such as cigarettes, chewing tobacco, and e- cigarettes, for as longas possible. If you smoke, do not smoke without supervision. Keep all follow-up visits as told by your health care provider. This is important. Contact a health care provider if: You have more redness, swelling, or pain around your incision. You have more fluid or blood coming from your incision. Your incision feels warm to the touch. You have pus or a bad smell coming from your incision. You have a fever. You feel light-headed or you faint. You develop a rash. You keep feeling nauseous or keep vomiting. You have very bad pain, even after taking the medicines your health care provider has prescribed orrecommended. You have constipation. Get help right away if: You are unable to pass urine. You have trouble breathing. Summary Have a responsible adult stay with you for at least 24 hours after the procedure. Nausea is common after a procedure. Make sure you have little or no nausea before eating solid foods. Follow the diet recommended by your health care provider. Ask your health care provider what activities are safe for you. This information is not intended to replace advice given to you by your health care provider. Make sure you discuss any questions you have with your health care provider. Document Released: 12/11/2016 Document Revised: 11/19/2018 Document Reviewed: 12/11/2016 [employer] Patient Education 2020 [employer]. Follow Up Care 06/21/2021 11:07:00 With:CHUNGWILLARD DO, Orthopedic Address: [phone] When:06/28/2021 13:15:00 Comments:Follow-up as scheduled [facility] 06-01[facility]2017 History of Past illness Narrative* Problem Noted Date Resolved Date Diuretic-induced hypokalemia 02/02/2017 Chest pain, unspecified 06/15/2007 03/14/20 14 documented as of this encounter (statuses as of 01/14/2022) [facility] of [facility] illness Narrative* Problem Noted Date Resolved Date Diuretic-induced hypokalemia 02/02/2017 Chest pain, unspecified 06/15/2007 03/14/20 14 documented as of this encounter (statuses as of 01/24/2022) [facility] Narrative* Problem Noted Date Resolved Date Diuretic-induced hypokalemia 02/02/2017 Chest pain, unspecified 06/15/2007 03/14/20 14 documented as of this encounter (statuses as of 02/23/2022) [facility] Narrative* Problem Noted Date Resolved Date Diuretic-induced hypokalemia 02/02/2017 Chest pain, unspecified 06/15/2007 03/14/20 14 documented as of this encounter (statuses as of 02/25/2022) [facility] Narrative* Problem Noted Date Resolved Date Diuretic-induced hypokalemia 02/02/2017 Chest pain, unspecified 06/15/2007 03/14/20 14 documented as of this encounter (statuses as of 03/01/2022) [facility]* Problem Noted Date Resolved Date Diuretic-induced hypokalemia 02/02/2017 Chest pain, unspecified 06/15/2007 03/14/20 14 documented as of this encounter (statuses as of 03/14/2022) [facility]* Problem Noted Date Resolved Date Diuretic-induced hypokalemia 02/02/2017 Chest pain, unspecified 06/15/2007 03/14/20 14 documented as of this encounter (statuses as of 04/08/2022) [facility]* Problem Noted Date Resolved Date Diuretic-induced hypokalemia 02/02/2017 Chest pain, unspecified 06/15/2007 03/14/20 14 documented as of this encounter (statuses as of 04/29/2022) [facility]* Problem Noted Date Resolved Date Diuretic-induced hypokalemia 02/02/2017 Chest pain, unspecified 06/15/2007 03/14/20 14 documented as of this encounter (statuses as of 05/11/2022) [facility]* Problem Noted Date Resolved Date Diuretic-induced hypokalemia 02/02/2017 Chest pain, unspecified 06/15/2007 03/14/20 14 documented as of this encounter (statuses as of 05/27/2022) [facility]* Problem Noted Date Resolved Date Diuretic-induced hypokalemia 02/02/2017 Chest pain, unspecified 06/15/2007 03/14/20 14 documented as of this encounter (statuses as of 06/09/2022) [facility]* Problem Noted Date Resolved Date Diuretic-induced hypokalemia 02/02/2017 Chest pain, unspecified 06/15/2007 03/14/20 14 documented as of this encounter (statuses as of 06/10/2022) [facility]* Problem Noted Date Resolved Date Diuretic-induced hypokalemia 02/02/2017 Chest pain, unspecified 06/15/2007 03/14/20 14 documented as of this encounter (statuses as of 06/29/2022) [facility]* Problem Noted Date Resolved Date Diuretic-induced hypokalemia 02/02/2017 Chest pain, unspecified 06/15/2007 03/14/20 14 documented as of this encounter (statuses as of 08/22/2022) [facility]* Problem Noted Date Resolved Date Diuretic-induced hypokalemia 02/02/2017 Chest pain, unspecified 06/15/2007 03/14/20 14 documented as of this encounter (statuses as of 08/27/2022) [facility] Problem Noted Date Resolved Date Diuretic-induced hypokalemia 02/02/2017 Chest pain, unspecified 06/15/2007 03/14/20 14 documented as of this encounter (statuses as of 08/28/2022) [facility] Problem Noted Date Resolved Date Diuretic-induced hypokalemia 02/02/2017 Chest pain, unspecified 06/15/2007 03/14/20 14 documented as of this encounter (statuses as of 09/11/2022) [facility] Problem Noted Date Resolved Date Diuretic-induced hypokalemia 02/02/2017 Chest pain, unspecified 06/15/2007 03/14/20 14 documented as of this encounter (statuses as of 09/21/2022) [facility] Problem Noted Date Resolved Date Diuretic-induced hypokalemia 02/02/2017 Chest pain, unspecified 06/15/2007 03/14/20 14 documented as of this encounter (statuses as of 10/25/2022) [facility] Problem Noted Date Resolved Date Diuretic-induced hypokalemia 02/02/2017 Chest pain, unspecified 06/15/2007 03/14/20 14 documented as of this encounter (statuses as of 10/31/2022) [facility] Problem Noted Date Resolved Date Diuretic-induced hypokalemia 02/02/2017 Chest pain, unspecified 06/15/2007 03/14/20 14 documented as of this encounter (statuses as of 10/31/2022) [facility] Problem Noted Date Resolved Date Diuretic-induced hypokalemia 02/02/2017 Chest pain, unspecified 06/15/2007 03/14/20 14 documented as of this encounter (statuses as of 11/07/2022) [facility] Problem Noted Date Resolved Date Diuretic-induced hypokalemia 02/02/2017 Chest pain, unspecified 06/15/2007 03/14/20 14 documented as of this encounter (statuses as of 12/26/2022) [facility] Problem Noted Date Resolved Date Diuretic-induced hypokalemia 02/02/2017 Chest pain, unspecified 06/15/2007 03/14/20 14 documented as of this encounter (statuses as of 02/02/2023) [facility] Problem Noted Date Resolved Date Diuretic-induced hypokalemia 02/02/2017 Chest pain, unspecified 06/15/2007 03/14/20 14 documented as of this encounter (statuses as of 02/07/2023) [facility] Problem Noted Date Resolved Date Diuretic-induced hypokalemia 02/02/2017 Chest pain, unspecified 06/15/2007 03/14/20 14 documented as of this encounter (statuses as of 02/07/2023) [facility] Problem Noted Date Resolved Date Diuretic-induced hypokalemia 02/02/2017 Chest pain, unspecified 06/15/2007 03/14/20 14 documented as of this encounter (statuses as of 02/17/2023) [facility] Problem Noted Date Resolved Date Diuretic-induced hypokalemia 02/02/2017 Chest pain, unspecified 06/15/2007 03/14/20 14 documented as of this encounter (statuses as of 02/20/2023) [facility] Problem Noted Date Resolved Date Diuretic-induced hypokalemia 02/02/2017 Chest pain, unspecified 06/15/2007 03/14/20 14 documented as of this encounter (statuses as of 02/21/2023) [facility] Problem Noted Date Resolved Date Diuretic-induced hypokalemia 02/02/2017 Chest pain, unspecified 06/15/2007 03/14/20 14 documented as of this encounter (statuses as of 02/21/2023) [facility]* Problem Noted Date Diagnosed Date Resolved Date Diuretic-induced hypokalemia 02/02/2017 05/25/2017 Chest pain, unspecified 06/15/200703/04 documented as of this encounter (statuses as of 03/29/2023) [facility]* Problem Noted Date Diagnosed Date Resolved Date Diuretic-induced hypokalemia 02/02/2017 05/25/2017 Chest pain, unspecified 06/15/200703/04 documented as of this encounter (statuses as of 04/07/2023) [facility]* Problem Noted Date Diagnosed Date Resolved Date Diuretic-induced hypokalemia 02/02/2017 05/25/2017 Chest pain, unspecified 06/15/200703/04 documented as of this encounter (statuses as of 04/19/2023) [facility] Problem Noted Date Diagnosed Date Resolved Date Diuretic-induced hypokalemia 02/02/2017 05/25/2017 Chest pain, unspecified 06/15/200703/04 documented as of this encounter (statuses as of 04/25/2023) [facility] Problem Noted Date Diagnosed Date Resolved Date Diuretic-induced hypokalemia 02/02/2017 05/25/2017 Chest pain, unspecified 06/15/200703/04 documented as of this encounter (statuses as of 04/26/2023) [facility] [facility] Narrative* Problem Noted Date Diagnosed Date Resolved Date Diuretic-induced hypokalemia 02/02/2017 05/25/2017 Chest pain, unspecified 06/15/200703/04 documented as of this encounter (statuses as of 05/01/2023) [facility] History of Past illness Narrative* Problem Noted Date Diagnosed Date Resolved Date Diuretic-induced hypokalemia 02/02/2017 05/25/2017 Chest pain, unspecified 06/15/200703/04 documented as of this encounter (statuses as of 07/31/2023) [facility] History of Past illness Narrative* Problem Noted Date Diagnosed Date Resolved Date Diuretic-induced hypokalemia 02/02/2017 05/25/2017 Chest pain, unspecified 06/15/200703/04 documented as of this encounter (statuses as of 08/03/2023) [facility] History of Past illness Narrative* Problem Noted Date Diagnosed Date Resolved Date Diuretic-induced hypokalemia 02/02/2017 05/25/2017 Chest pain, unspecified 06/15/200703/04 documented as of this encounter (statuses as of 08/03/2023) [facility] of Past illness Narrative* Problem Noted Date Diagnosed Date Resolved Date Diuretic-induced hypokalemia 02/02/2017 05/25/2017 Chest pain, unspecified 06/15/200703/04 documented as of this encounter (statuses as of 10/11/2023) [facility] of Past illness Narrative* Problem Noted Date Diagnosed Date Resolved Date Diuretic-induced hypokalemia 02/02/2017 05/25/2017 Chest pain, unspecified 06/15/200703/04 documented as of this encounter (statuses as of 10/12/2023) [facility] of Past illness Narrative* Problem Noted Date Diagnosed Date Resolved Date Diuretic-induced hypokalemia 02/02/2017 05/25/2017 Chest pain, unspecified 06/15/200703/04 documented as of this encounter (statuses as of 10/18/2023) [facility] of Past illness Narrative* Problem Noted Date Diagnosed Date Resolved Date Diuretic-induced hypokalemia 02/02/2017 05/25/2017 Chest pain, unspecified 06/15/200703/04 documented as of this encounter (statuses as of 10/24/2023) [facility] of [facility] illness Narrative* Problem Noted Date Diagnosed Date Resolved Date Diuretic-induced hypokalemia 02/02/2017 05/25/2017 Chest pain, unspecified 06/15/200703/04 documented as of this encounter (statuses as of 10/25/2023) [facility] Narrative* Problem Noted Date Diagnosed Date Resolved Date Diuretic-induced hypokalemia 02/02/2017 05/25/2017 Chest pain, unspecified 06/15/200703/04 documented as of this encounter (statuses as of 10/26/2023) [facility] Narrative* Problem Noted Date Diagnosed Date Resolved Date Diuretic-induced hypokalemia 02/02/2017 05/25/2017 Chest pain, unspecified 06/15/200703/04 documented as of this encounter (statuses as of 10/26/2023) [facility] Narrative* Problem Noted Date Diagnosed Date Resolved Date Diuretic-induced hypokalemia 02/02/2017 05/25/2017 Chest pain, unspecified 06/15/200703/04 documented as of this encounter (statuses as of 11/06/2023) [facility] Narrative* Problem Noted Date Diagnosed Date Resolved Date Diuretic-induced hypokalemia 02/02/2017 05/25/2017 Chest pain, unspecified 06/15/200703/04 documented as of this encounter (statuses as of 2023) [facility] of [facility] illness Narrative* Problem Noted Date Diagnosed Date Resolved Date Diuretic-induced hypokalemia 02/02/2017 05/25/2017 Chest pain, unspecified 06/15/200703/04 documented as of this encounter (statuses as of 11/24/2023) [facility]* Chief Complaint 6 MO F/U (WITH PFM) CHEST PAIN CHEST PAIN A1 C- PREP FOR PROCEDURE 4 M FU Reason for Visit Chest pain, unspecif ied Edema Atherosclerotic heart disease of [place] coronary artery without angina pectoris Benign essential hypertension Mixed hyperlipidemia Stented coronary artery Diabetes Vitamin D deficiency Benign essential hypertension Hypothyroidism (acquired) Mixed hyperlipidemia Obesity Osteoporosis 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 2 diabetes mellitus [facility] Work Phone: Chief complaint+Reason for visit Narrative* Chief Complaint A1 C- PREP FOR PROCE DURE 4 M FU 2 M FU PROLIA Reason for Visit Diabetes Vitamin D deficiency Benign essential hypertension Hypothyroidism (acquired) Mixed hyperlipidemia Obesity Osteoporosis 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 2 diabetes mellitus Diabetes Obesity 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 2 diabetes mellitus [facility] Work Phone: Evaluation + Plan note No data available for this section [facility] Evaluation note* Diagnosis Onset Date Resolution Status Chest pain, unspecified acut e Edema acute Atherosclerotic heart diseas e of [place] coronary artery without angina pectoris chronic Benign essential hypertension chronic Mixed hyperlipidemia chronic Stented coronary artery March 13, 2019 c hronic Diabetes acute Vitamin D deficiency acute Benign essential hypertension chronic Hypothyroidism (acquired) ch ronic Mixed hyperlipidemia chronic Obesity chronic Osteoporosis chronic 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 2 diabetes mellitus [facility] Work Phone: Evaluation note* Diagnosis Acute cystitis with hematuria- Primary Acute cystitis UTI symptoms Other symptoms involving urinary system [facility] Diagnosis Onset Date Resolution Status Diabetes acute Vitamin D deficiency acute Benign essential hypertension chronic Hypothyroidism (acquired) ch ronic Mixed hyperlipidemia chronic Obesity chronic Osteoporosis chronic 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 2 diabetes mellitus chronic Diabetes acute Obesity chronic 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 2 diabetes mellitus [facility] Work Phone: Evaluation note* Diagnosis Onset Date Resolution Status Diabetes acute Obesity chronic 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 2 diabetes mellitus chronic Obesity chronic NATALIE (obstructive sleep apnea) chronic Diabetes acute Vitamin D deficiency acute Hypothyroidism (acquired) ch ronic Mixed hyperlipidemia chronic Obesity chronic 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 2 diabetes mellitus chronic Edema acute Atherosclerotic heart diseas e of [place] coronary artery without angina pectoris chronic Benign essential hypertension chronic Mixed hyperlipidemia chronic Stented coronary artery March 13, 2019 c Guided Interventions [facility] Work Phone: Evaluation note* Diagnosis Medicare annual wellness visit, initial- Primary Routine general medical examination at a health care facility Diabetes mellitus type 2 (HCC) Uncontrolled type 2 diabetes mellitus with hyperglycemia (HCC) Hypertension, essential Unspecified essential hypertension Hyperlipidemia, mixed Mixed hyperlipidemia Postsurgical hypothyroidism Gastroesophageal reflux disease, unspecified whether esophagitis present ASHD (arteriosclerotic heart disease) Coronary atherosclerosis of unspecified type of vessel, [place] or graft Stage 3a chronic kidney disease (HCC) Mild intermittent asthma without complication Unspecified asthma Morbid obesity due to excess calories (HCC) NATALIE (obstructive sleep apnea) Obstructive sleep apnea (adult) (pediatric) Vitamin D deficiency Unspecified vitamin D deficiency Spinal stenosis of lumbar region without neurogenic claudication Spinal stenosis, lumbar region, without neurogenic claudication Lumbar radiculopathy Thoracic or lumbosacral neuritis or radiculitis, unspecified Psoriasis Other psoriasis Living will on file Advance directive discussed with patient Other specified counseling Screening for colon cancer Special screening for malignant neoplasms, colon Encounter for immunization Need for other specified prophylactic vaccination against single bacterial disease [facility] Diagnosis Diabetes mellitus type 2 (HCC)- Primary Uncontrolled type 2 diabetes mellitus with hyperglycemia (HCC) Stage 3a chronic kidney disease (HCC) Postsurgical hypothy[facility] Onset Date Resolution Status Obesity chronic NATALIE (obstructive sleep apnea) chronic Diabetes acute Vitamin D deficiency acute Hypothyroidism (acquired) ch ronic Mixed hyperlipidemia chronic Obesity chronic 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 2 diabetes mellitus chronic Edema acute Atherosclerotic heart diseas e of [place] coronary artery without angina pectoris chronic Benign essential hypertension chronic Mixed hyperlipidemia chronic Stented coronary artery March 13, 2019 c Guided Interventions Screening for intestinal cancer acute [facility] Work Phone: Evaluation note* Diagnosis Hyperlipidemia with target LDL less than 100 Other and unspecified hyperlipidemia [facility] Diagnosis Benign hypertension Essential hypertension, benign [facility] Diagnosis Onset Date Resolution Status Screening for intestinal cancer acute Diabetes acute Benign essential hypertension chronic Hypothyroidism (acquired) ch ronic Mixed hyperlipidemia chronic Obesity chronic Osteoporosis chronic 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 2 diabetes mellitus [facility] Work Phone: Evaluation note* Diagnosis Encounter for screening mammogram for breast cancer [facility] [place] [facility]* Diagnosis Medication management- Primary Encounter for long-term (current) use of other medications Lumbar radiculopathy Thoracic or lumbosacral neuritis or radiculitis, unspecified [facility] [place] [facility]* Diagnosis Hypokalemia- Primary Hypopotassemia [facility] [place] [facility]* Diagnosis Type 2 diabetes mellitus with stage 3a chronic kidney disease, with long-term current use of insulin ([facility])- Primary Diabetic eye exam ([facility]) Type II or unspecified type diabetes mellitus without mention of complication, not stated as uncontrolled Hypertension, essential Unspecified essential hypertension Hyperlipidemia, mixed Mixed hyperlipidemia Gastroesophageal reflux disease, unspecified whether esophagitis present Postsurgical hypothyroidism Mild intermittent asthma without complication Unspecified asthma ASHD (arteriosclerotic heart disease) Coronary atherosclerosis of unspecified type of vessel, [place] or graft Stage 3a chronic kidney disease (HCC) Morbid obesity due to excess calories (HCC) NATALIE (obstructive sleep apnea) Obstructive sleep apnea (adult) (pediatric) Vitamin D deficiency Unspecified vitamin D deficiency [facility] [place] [facility]* Diagnosis Onset Date Resolution Status Edema acute Atherosclerotic heart diseas e of [place] coronary artery without angina pectoris chronic Benign essential hypertension chronic Mixed hyperlipidemia chronic Diabetes acute Hypothyroidism (acquired) ch ronic Obesity chronic Osteoporosis chronic 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 2 diabetes mellitus [facility] Work Phone: Evaluation note* Diagnosis Benign hypertension Essential hypertension, benign Other intervertebral disc degeneration, lumbar region Spinal stenosis, lumbar region with neurogenic claudication Spondylolisthesis of lumbar region Acquired spondylolisthesis Other intervertebral disc displacement, lumbosacral region [facility] [place] [facility]* Diagnosis Preop testing- Primary Preoperative examination, unspecified Pain, unspecified Postprocedural hypoinsulinemia Postsurgical hypoinsulinemia Pain in other joint Unspecified diastolic (congestive) heart failure (HCC) Other intervertebral disc degeneration, lumbar region Spinal stenosis, lumbar region with neurogenic claudication Spondylolisthesis of lumbar region Acquired spondylolisthesis Other intervertebral disc displacement, lumbosacral region [facility] Diagnosis Lumbar radiculopathy Thoracic or lumbosacral neuritis or radiculitis, unspecified [facility] [place] [facility]* Diagnosis Psoriasis Other psoriasis [facility] [place] [facility]* Diagnosis Hyperlipidemia with target LDL less than 100 Other and unspecified hyperlipidemia [facility] [place] [facility]* Diagnosis Onset Date Resolution Status Diabetes acute Cataract associated with type 2 diabetes mellitus chronic Hypothyroidism (acquired) ch ronic Obesity chronic 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 2 diabetes mellitus [facility] Work Phone: Evaluation note* Diagnosis Coronary artery disease involving [place] heart, unspecified vessel or lesion type, unspecified whether angina present- Primary Wheezing Wheezing Preop testing Preoperative examination, unspecified Pain, unspecified Pain in other specified joint Other intervertebral disc degeneration, lumbar region Spinal stenosis, lumbar region, with neurogenic claudication Spondylolisthesis of lumbar region Acquired spondylolisthesis Other intervertebral disc displacement, lumbosacral region Spinal stenosis of lumbar region with neurogenic claudication Spinal stenosis, lumbar region, with neurogenic claudication [facility] [place] [facility]* Diagnosis Postsurgical hypothyroidism Other intervertebral disc degeneration, lumbar region Spinal stenosis, lumbar region, with neurogenic claudication Spondylolisthesis of lumbar region Acquired spondylolisthesis Other intervertebral disc displacement, lumbosacral region Spinal stenosis of lumbar region with neurogenic claudication Spinal stenosis, lumbar region, with neurogenic claudication [facility] [place] [facility]* Diagnosis Pre-op examination- Primary Preoperative examination, unspecified Spinal stenosis of lumbar region without neurogenic claudication Spinal stenosis, lumbar region, without neurogenic claudication Mild intermittent asthma without complication Unspecified asthma Hypertension, essential Unspecified essential hypertension Seasonal allergic rhinitis due to pollen Other intervertebral disc degeneration, lumbar region Spinal stenosis, lumbar region, with neurogenic claudication Spondylolisthesis of lumbar region Acquired spondylolisthesis Other intervertebral disc displacement, lumbosacral region Spinal stenosis of lumbar region with neurogenic claudication Spinal stenosis, lumbar region, with neurogenic claudication [facility] [place] [facility]* Diagnosis Lumbar radiculopathy- Primary Thoracic or lumbosacral neuritis or radiculitis, unspecified Seasonal allergic rhinitis due to pollen Benign hypertension Essential hypertension, benign Obesity, Class III, BMI >= 40 Morbid obesity Stage 3a chronic kidney disease (HCC) Spinal stenosis, lumbar region, with neurogenic claudication DDD (degenerative disc disease), lumbar Degeneration of lumbar or lumbosacral intervertebral disc NATALIE (obstructive sleep apnea) Obstructive sleep apnea (adult) (pediatric) Vitamin D deficiency Unspecified vitamin D deficiency ASHD (arteriosclerotic heart disease) Coronary atherosclerosis of unspecified type of vessel, [place] or graft Type 2 diabetes mellitus with stage 3a chronic kidney disease, with long-term current use of insulin (HCC) Mild intermittent asthma without complication Unspecified asthma Hyperlipidemia, mixed Mixed hyperlipidemia Hypertension, essential Unspecified essential hypertension Gastroesophageal reflux disease, unspecified whether esophagitis present Postsurgical hypothyroidism Medicare annual wellness visit, subsequent Routine general medical examination at a health care facility Acute on chronic diastolic congestive heart failure (HCC) Acute on chronic diastolic heart failure [facility] [place] [facility]* Diagnosis Onset Date Resolution Status Cataract associated with type 2 diabetes mellitus chronic Diabetes chronic Hypothyroidism (acquired) ch ronic Obesity chronic Osteoporosis chronic 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 2 diabetes mellitus chronic Obesity chronic NATALIE (obstructive sleep apnea) chronic Benign essential hypertension chronic Mixed hyperlipidemia [facility] Work Phone: Evaluation note* Diagnosis Onset Date Resolution Status Obesity chronic NATALIE (obstructive sleep apnea) chronic Benign essential hypertension chronic Mixed hyperlipidemia chronic Benign essential hypertension chronic Diabetes chronic Hypothyroidism (acquired) ch ronic Obesity chronic 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 2 diabetes mellitus [facility] Work Phone: Evaluation note* Diagnosis Encounter for screening mammogram for breast cancer [facility] [place] [facility]* Diagnosis Hyperlipidemia, mixed- Primary Mixed hyperlipidemia Hypertension, essential Unspecified essential hypertension Postsurgical hypothyroidism Stage 3a chronic kidney disease (HCC) Type 2 diabetes mellitus with stage 3a chronic kidney disease, with long-term current use of insulin (HCC) Vitamin D deficiency Unspecified vitamin D deficiency [facility] [place] [facility]* Diagnosis Onset Date Resolution Status Diabetes chronic Hypothyroidism (acquired) ch ronic Mixed hyperlipidemia chronic Osteoporosis chronic 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 2 diabetes mellitus [facility] Work Phone: Evaluation note* Diagnosis Hyperlipidemia with target LDL less than 100 Other and unspecified hyperlipidemia documented in this encounter [facility] note* Diagnosis Bilateral leg edema- Primary Edema Bilateral calf pain Pain in limb Acute on chronic diastolic congestive heart failure (HCC) Acute on chronic diastolic heart failure Advance directive discussed with patient Other specified counseling [facility] Diagnosis Onset Date Resolution Status Diabetes chronic Hypothyroidism (acquired) ch ronic Mixed hyperlipidemia chronic Obesity chronic Osteoporosis chronic Presence of insulin pump chr onic 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 2 diabetes mellitus chronic MIRAMONTES (dyspnea on exertion) ac brina Benign essential hypertension chronic Mixed hyperlipidemia chronic Stented coronary artery March 13, 2019 c hronic Left knee DJD acute Right knee DJD acute Obesity chronic Bilateral primary osteoarthritis of knee noneactive Left knee DJD acute Right knee DJD acute Left knee DJD acute Right knee DJD acute [facility] Work Phone: Evaluation note* Diagnosis Ischemic optic neuropathy of both eyes- Primary Ischemic optic neuropathy Category 4 blindness of right eye, unspecified left eye visual impairment category [facility] Petechial rash- Primary Spontaneous ecchymoses [facility] [place] [facility]* Diagnosis SOB (shortness of breath) Shortness of breath [facility] [place] [facility]* Diagnosis Hyperlipidemia with target LDL less than 100 Other and unspecified hyperlipidemia [facility] Diagnosis Hyperlipidemia with target LDL less than 100 Other and unspecified hyperlipidemia [facility] Diagnosis Postsurgical hypothyroidism- Primary Screening for depression Encounter for screening examination for other mental health and behavioral disorders Uncontrolled type 2 diabetes mellitus with hyperglycemia (HCC) Lumbar radiculopathy Thoracic or lumbosacral neuritis or radiculitis, unspecified Hypertension, essential Unspecified essential hypertension Hyperlipidemia, mixed Mixed hyperlipidemia ASHD (arteriosclerotic heart disease) Coronary atherosclerosis of unspecified type of vessel, [place] or graft Stage 3a chronic kidney disease (HCC) Type 2 diabetes mellitus with stage 3a chronic kidney disease, with long-term current use of insulin (HCC) Gastroesophageal reflux disease, unspecified whether esophagitis present NATALIE (obstructive sleep apnea) Obstructive sleep apnea (adult) (pediatric) Mild intermittent asthma without complication Unspecified asthma Advance directive discussed with patient Other specified counseling Encounter for Medicare annual wellness exam Routine general medical examination at a health care facility Morbid obesity due to excess calories (HCC) Vitamin D deficiency Unspecified vitamin D deficiency DDD (degenerative disc disease), lumbar Degeneration of lumbar or lumbosacral intervertebral disc Osteoarthritis of both knees, unspecified osteoarthritis type Obesity, Class III, BMI >= 40 Morbid obesity [facility] Diagnosis Postsurgical hypothyroidism- Primary [facility] [place] [facility]* Diagnosis Encounter for screening mammogram for breast cancer [facility] [place] [facility]* Diagnosis Uncontrolled type 2 diabetes mellitus with hyperglycemia (HCC)- Primary Postsurgical hypothyroidism Hyperlipidemia, mixed Mixed hyperlipidemia Type 2 diabetes mellitus with stage 3a chronic kidney disease, with long-term current use of insulin (HCC) Hypertension, essential Unspecified essential hypertension Stage 3a chronic kidney disease (HCC) [facility] [place] [facility]* Diagnosis Acute on chronic diastolic congestive heart failure (HCC)- Primary Acute on chronic diastolic heart failure ASHD (arteriosclerotic heart disease) Coronary atherosclerosis of unspecified type of vessel, [place] or graft Orthopnea Stage 3a chronic kidney disease (HCC) Mild intermittent asthma without complication (HCC) Unspecified asthma MIRAMONTES (dyspnea on exertion) Other dyspnea and respiratory abnormality [facility] [place] [facility]* Diagnosis Acute pulmonary embolism, unspecified pulmonary embolism type, unspecified whether acute cor pulmonale present (HCC)- Primary [facility] [place] [facility]* Diagnosis Postsurgical hypothyroidism [facility] Diagnosis Multiple subsegmental pulmonary emboli without acute cor pulmonale (HCC)- Primary Anemia, unspecified type SOB (shortness of breath) Shortness of breath Atypical chest pain Other chest pain Palpitations [facility] [place] [facility]* Diagnosis Iron deficiency anemia, unspecified iron deficiency anemia type- Primary [facility] [place] note* Diagnosis Ischemic optic neuropathy of both eyes- Primary Ischemic optic neuropathy Category 4 blindness of right eye, unspecified left eye visual impairment category [facility] Benign hypertension Essential hypertension, benign [facility] Additional Instructions You have blood clots in both sides your lungs. That is why you get short of breath. You will be started on the blood thinner Eliquis. Take as prescribed. You need to follow-up with your primary care physician Dr. Henriquez for further evaluation. You also need to follow-up with the carton folder Dr. Florez. Call their office on Monday let them know you were seen emergency department and you were diagnosed with blood clots. [facility] Work Phone: Reason for referral (narrative)* Diagnostic Procedure Only (Routine) - Pending Review Specialty Diagnoses / Procedures Referred By Chantelle warren Referred To Contact [facility] Diagnoses Encounter for screening mammogram for breast cancer Procedures JOSE SCREENING SCREENING MAMMOGRAPHY BI 2-VIEW BREAST INC CAD Willard Henriquez MD [address] [place] [address] [facility] [address] [place] [address] Referral ID Status Reason Start Date Expiration Date Visits Requested Visits Authorized [id number] Pending Review Auto-Generat ed Referral 09/16/2023 1 1 [facility] for referral (narrative)* Outpatient Procedure (Routine) - Closed Specialty Diagnoses / Procedures Referred By Chantelle t Referred To [facility] Diagnoses Preop testing Procedures ECG COMPLETE ECG ROUTINE ECG W/LEAST 12 LDS W/I&R Andrea Sandoval DO [address] [place] [address] [facility] [address] [place] [address] Referral ID Status Reason Start Date Expiration Date V isits Requested Visits Authorized [id number] Closed Auto-Generate d Referral 11/03/2022 11/03/2023 1 1 [facility] for referral (narrative)* Diagnostic Procedure Only (Routine) - Pending Review Specialty Diagnoses / Procedures Referred By Christiac t Referred To Contact [facility] Diagnoses Encounter for screening mammogram for breast cancer Procedures JOSE SCREENING SCREENING MAMMOGRAPHY BI 2-VIEW BREAST INC CAD Willard Henriquez MD [address] [place] [address] [facility] [address] [place] [address] Referral ID Status Reason Start Date Expiration Date Visits Requested Visits Authorized [id number] Pending Review Auto-Generat ed Referral 3 08/24/2024 1 1 [facility] for referral (narrative)* Outpatient Procedure (Urgent) - Pending Review Specialty Diagnoses / Procedures Referred By Contac t Referred To Contact [facility] Diagnoses Bilateral leg edema Bilateral calf pain Procedures US LEG VEIN DVT OLGA VAS LAB DUP-SCAN XTR VEINS COMPLETE BILATERAL STUDY Willard Henriquez MD [address] [place] [address] [facility] [place] [address] [place] [address] Referral ID Status Reason Start Date Expiration Date Visits Requested Visits Authorized [id number] Pending Review Auto-Generat ed Referral 10/25/2023 10/24/2024 1 1 [facility] for referral (narrative)* Diagnostic Procedure Only (Routine) - New Request Specialty Diagnoses / Procedures Referred By Contac t Referred To Contact [facility] Diagnoses Encounter for screening mammogram for breast cancer Procedures JOSE SCREENING W JAYNE SCREENING DIGITAL BREAST TOMOSYNTHESIS BI SCREENING MAMMOGRAPHY BI 2-VIEW BREAST INC CAD Willard Henriquez MD [address] [place] [address] [facility] [address] [place] [address] Referral ID Status Reason Start Date Expiration Date Visits Requested Visits Authorized [id number] New Request Auto-Generat ed Referral 4 08/02/2025 1 1 [facility] for referral (narrative)No reason for referral information [facility]WFairfield [facility] Work Phone: Reason for visit Narrative* Outpatient Procedure (Routine) - Closed Specialty Diagnoses / Procedures Referred By Contac t Referred To Contact [facility] [place] Diagnoses Preop testing Procedures ECG COMPLETE ECG ROUTINE ECG W/LEAST 12 LDS W/I&R Andrea Sandoval, DO [address] [place] [address] [facility] [address] Referral ID Status Reason Start Date Expiration Date V isits Requested Visits Authorized [id number] Closed Auto-Generate d Referral 11/03/2022 11/03/2023 1 1 [facility] Family History No Family History Records Found Relationship Condition Age at Onset Recorded Date/T javier mother Diabetes mellitus Unknown Cardiac disease Unknown Hypertension Unknown High blood cholesterol Unknown Kidney disorder Unknown Malignant neoplasm Unknown father Diabetes mellitus Unknown sister Malignant neoplasm Unknown Advance Directives No Advanced Directives Records FoundDocuments on File Type Date Recorded Patient Padder Expl anation Advance Directive(s) 03/24/2021 11:33 AM Date Activated Date Inactivated Comments 02/23/2023 9:17 PM 02/27/2023 8:21 PM Question Answer Comments Full Code Order Discussed With: Discussion Not M edically Appropriate Latest Code Status on File Code Status Date Activated Date Inactivated Comments Full Code 02/23/2023 9:17 PM 02/27/2023 8:21 PM Question Answer Comments Full Code Order Discussed With: Discussion Not Medically Appropriate Advance Directive Response Recorded Date/ Time Advance Directives No March 03 8:34am Living Will No November 29, 2020 2:00pm Power of Marketing Area Manager No November 29 2:00pm Documents on File Type Date Recorded Patient Padder Expl anation Advance Directive(s) 03/24/2021 11:33 AM Advance Directive Response Recorded Date/ Time Advance Directives No March 03 8:34am Living Will No May 23, 2022 8:43am Power of Marketing Area Manager No May 8:43am Advance Directive Response Recorded Date/ Time Advance Directives No March 03 7:34am Living Will No May 23, 2022 7:43am Power of Marketing Area Manager No May 7:43am Latest Code Status on File Code Status Date Activated Date Inactivated Comments Full Code 02/23/2023 9:17 PM 02/27/2023 8:21 PM Question Answer Comments Full Code Order Discussed With: Discussion Not Medically Appropriate Date Activated Date Inactivated Comments 02/23/2023 9:17 PM 02/27/2023 8:21 PM Question Answer Comments Full Code Order Discussed With: Discussion Not M edically Appropriate Advance Directive Response Recorded Date/ Time Living Will Yes May 09, 4:06pm Power of Marketing Area Manager Yes May 09, 2024 4:06pm Advance Directives No March 03 8:34am Advance Directive Response Recorded Date/ Time Living Will Yes May 09, 4:06pm Do you have a Healthcare Power of Marketing Area Manager? Yes May 09, 2024 4:06pm Living Will No November 29, 2024 3:30pm Do you have a Healthcare Power of Marketing Area Manager? No November 29, 2024 3:30pm Advance Directives No March 03 8:34am Advance Directive Response Recorded Date/ Time Living Will Yes May 09 4:06pm Do you have a Healthcare Pow er of Marketing Area Manager? Yes May 09, 2024 4:06pm Living Will No November 29, 2024 3:30pm Do you have a Healthcare Pow er of Marketing Area Manager? No November 29, 2024 3:30pm Living Will Yes December 17, 2024 6:45pm Do you have a Healthcare Pow er of Marketing Area Manager? Yes December 17, 2024 6:45pm Name of Medical Power of Marketing Area Manager Wil German- December 17, 2024 6:45pm Advance Directives No March 03 8:34am Documents on File Type Date Recorded Patient Padder Expl anation HealthCare Power of Marketing Area Manager 03/28/2024 [facility] Power of Marketing Area Manager Advance Directives/Living Will 03/28/2024 Chief Complaint and Reason for Visit Chief Complaint 2 M FU PROLIA 1 Y FU 2 M FU 6 M FU Reason for Visit Diabetes Obesity 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 2 diabetes mellitus Obesity NATALIE (obstructive sleep apnea) Diabetes Vitamin D deficiency Hypothyroidism (acquired) Mixed hyperlipidemia Obesity 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 2 diabetes mellitus Edema Atherosclerotic heart disease of [place] coronary artery without angina pectoris Benign essential hypertension Mixed hyperlipidemia Stented coronary artery Chief Complaint 2 M FU PROLIA 1 Y FU 2 M FU 6 M FU EORDER Reason for Visit Diabetes Obesity 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 2 diabetes mellitus Obesity NATALIE (obstructive sleep apnea) Diabetes Vitamin D deficiency Hypothyroidism (acquired) Mixed hyperlipidemia Obesity 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 2 diabetes mellitus Edema Atherosclerotic heart disease [place] coronary artery without angina pectoris Benign essential hypertension Mixed hyperlipidemia Stented coronary artery Chief Complaint 1 Y FU 2 M FU 6 M FU EORDER C SCOPE ENDO ENDO Reason for Visit Obesity NATALIE (obstructive sleep apnea) Diabetes Vitamin D deficiency Hypothyroidism (acquired) Mixed hyperlipidemia Obesity 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 2 diabetes mellitus Edema Atherosclerotic heart disease [place] coronary artery without angina pectoris Benign essential hypertension Mixed hyperlipidemia Stented coronary artery Screening for intestinal cancer Chief Complaint C SCOPE ENDO ENDO 3 M FU PRE-OP PROLIA Reason for Visit Screening for intest inal cancer Diabetes Benign essential hypertension Hypothyroidism (acquired) Mixed hyperlipidemia Obesity Osteoporosis 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 2 diabetes mellitus Chief Complaint PRE-OP PROLIA 6 M FU 4 M FU SPINAL STENOSIS Reason for Visit Edema Atherosclerotic heart disease [place] coronary artery without angina pectoris Benign essential hypertension Mixed hyperlipidemia Diabetes Hypothyroidism (acquired) Obesity Osteoporosis 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 2 diabetes mellitus Chief Complaint SPINAL STENOSIS PROLIA 4 M FU EORDER Reason for Visit Diabetes Cataract associated with type 2 diabetes mellitus Hypothyroidism (acquired) Obesity 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 2 diabetes mellitus Chief Complaint PROLIA 4 M FU EORDER 1 Y FU 1 Y FU NATALIE; 04/07/23 NB TR APPROVED SPINAL STENOSIS RX HERE Reason for Visit Cataract associated with type 2 diabetes mellitus Diabetes Hypothyroidism (acquired) Obesity Osteoporosis 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 2 diabetes mellitus Obesity NATALIE (obstructive sleep apnea) Benign essential hypertension Mixed hyperlipidemia Chief Complaint 1 Y FU 1 Y FU NATALIE; 04/07/23 NB TR APPROVED 4 M FU SPINAL STENOSIS RX HERE PROLIA Reason for Visit Obesity NATALIE (obstructive sleep apnea) Benign essential hypertension Mixed hyperlipidemia Benign essential hypertension Diabetes Hypothyroidism (acquired) Obesity 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 2 diabetes mellitus Chief Complaint PROLIA 4 M FU EORDER SPINAL STENOSIS RX HERE Reason for Visit Diabetes Hypothyroidism (acquired) Mixed hyperlipidemia Osteoporosis 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 2 diabetes mellitus Chief Complaint 4 M FU EORDER SPINAL STENOSIS RX HERE 6 M FU INT LABS RIGHT KNEE room 1 BILATERAL KNEES BILATERAL KNEES DYSPNEA/SOB SPINAL STENOSIS RX HERE Reason for Visit Diabetes Hypothyroidism (acquired) Mixed hyperlipidemia Obesity Osteoporosis Presence of insulin pump 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 2 diabetes mellitus MIRAMONTES (dyspnea on exertion) Benign essential hypertension Mixed hyperlipidemia Stented coronary artery Left knee DJD Right knee DJD Obesity Bilateral primary osteoarthritis of knee 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 Chief Complaint Admit Date PAIN- COPY PCP September 30, 2024 2 :13pm 6 M FU October 23, 2024 1:59pm 4 M FU November 11, 2024 2:1 3pm Reason for Visit Admit Date Chest pain, unspecified October 23, 2 025 1:59pm Atherosclerotic heart diseas e of [place] coronary artery without angina pectoris October 23, 2024 1:59pm MIRAMONTES (dyspnea on exertion) October 23, 2024 1:59pm Chief Complaint Admit Date PAIN- COPY PCP September 30, 2024 2 :13pm 6 M FU October 23, 2024 1:59pm 4 M FU November 11, 2024 2:1 3pm 6 M FU November 27, 2024 2:3 3pm CHEST PAIN November 29, 2024 2:5 9pm Reason for Visit Admit Date Chest pain, unspecified October 23, 2 025 1:59pm Atherosclerotic heart diseas e of [place] coronary artery without angina pectoris October 23, 2024 1:59pm MIRAMONTES (dyspnea on exertion) October 23, 2024 1:59pm Benign essential hypertension November 2:13pm Diabetes November 11, 2024 2:1 3pm Hypothyroidism (acquired) November 11 2:13pm Mixed hyperlipidemia November 11, 2024 2: 13pm Obesity November 11, 2024 2:1 3pm Osteoporosis November 11, 2024 2:1 3pm Presence of stent in coronary artery Nov 2:13pm 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 2 diabetes mellitus November 11, 2024 2:13pm Hypoxia November 27, 2024 2:3 3pm MIRAMONTES (dyspnea on exertion) November 27 2:33pm Obesity November 27, 2024 2:3 3pm NATALIE (obstructive sleep apnea) November 2:33pm Chief Complaint Admit Date PAIN- COPY PCP September 30, 2024 2 :13pm 6 M FU October 23, 2024 1:59pm 4 M FU November 11, 2024 2:1 3pm 6 M FU November 27, 2024 2:3 3pm CHEST PAIN November 29, 2024 2:5 9pm Hypoxemia December 03, 2024 11:0 5am Hypoxemia December 05, 2024 10:1 1am Chief Complaint Admit Date PAIN- COPY PCP September 30, 2024 2 :13pm 6 M FU October 23, 2024 1:59pm 4 M FU November 11, 2024 2:1 3pm 6 M FU November 27, 2024 2:3 3pm CHEST PAIN November 29, 2024 2:5 9pm Hypoxemia December 03, 2024 11:0 5am Hypoxemia December 05, 2024 10:1 1am PALPITATIONS December 17, 2024 6:3 3pm Chief Complaint Admit Date PAIN- COPY PCP September 30, 2024 2 :13pm 6 M FU October 23, 2024 1:59pm 4 M FU November 11, 2024 2:1 3pm 6 M FU November 27, 2024 2:3 3pm CHEST PAIN November 29, 2024 2:5 9pm Hypoxemia December 03, 2024 11:0 5am Hypoxemia December 05, 2024 10:1 1am PALPITATIONS December 17, 2024 6:3 3pm Tachycardia/SOB/Weakness January 01 10:49am INT LAB ORDERS January 01, 2025 12: 33pm 1 M FU January 09, 2025 1:38pm IRON DEFICIENCY ANEMIA January 16, 2025 12 :53pm INT LAB ORDERS January 16, 2025 2:14p m Reason for Visit Admit Date Chest pain, unspecified October 23, 1:59pm Atherosclerotic heart diseas e of [place] coronary artery without angina pectoris October 23, 2024 1:59pm MIRAMONTES (dyspnea on exertion) October 23, 2024 1:59pm Benign essential hypertension November 2:13pm Diabetes November 11, 2024 2:1 3pm Hypothyroidism (acquired) November 11 2:13pm Mixed hyperlipidemia November 11, 2024 2: 13pm Obesity November 11, 2024 2:1 3pm Osteoporosis November 11, 2024 2:1 3pm Presence of stent in coronary artery Nov 2:13pm 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 2 diabetes mellitus November 11, 2024 2:13pm Hypoxia November 27, 2024 2:3 3pm MIRAMONTES (dyspnea on exertion) November 27 2:33pm Obesity November 27, 2024 2:3 3pm NATALIE (obstructive sleep apnea) November 2:33pm Palpitations January 01, 2025 10: 49am Pulmonary embolism January 01, 2025 10: 49am Benign essential hypertension December 10:49am MIRAMONTES (dyspnea on exertion) January 01 10:49am Mixed hyperlipidemia January 01, 2025 10 :49am Obesity January 01, 2025 10: 49am Stented coronary artery January 01, 2025 10:49am Hypoxia January 09, 2025 1:38pm Pulmonary embolism January 09, 2025 1:38pm Obesity January 09, 2025 1:38pm NATALIE (obstructive sleep apnea) January 09 1:38pm Abdominal pain January 16, 2025 12:53 pm Diarrhea January 16, 2025 12:53 pm Fecal incontinence January 16, 2025 12:53 pm Iron deficiency anemia January 16, 2025 12 :53pm Chief Complaint Admit Date PAIN- COPY PCP September 30, 2024 2 :13pm 6 M FU October 23, 2024 1:59pm 4 M FU November 11, 2024 2:1 3pm 6 M FU November 27, 2024 2:3 3pm CHEST PAIN November 29, 2024 2:5 9pm Hypoxemia December 03, 2024 11:0 5am Hypoxemia December 05, 2024 10:1 1am PALPITATIONS December 17, 2024 6:3 3pm Tachycardia/SOB/Weakness January 01 10:49am INT LAB ORDERS January 01, 2025 12: 33pm 1 M FU January 09, 2025 1:38pm IRON DEFICIENCY ANEMIA January 16, 2025 12 :53pm INT LAB ORDERS January 16, 2025 2:14p m INT ORDER January 17, 2025 1:28p m 2 M FU January 20, 2025 1:49p m Chief Complaint Admit Date 6 M FU October 23, 2024 1:59pm 4 M FU November 11, 2024 2:1 3pm 6 M FU November 27, 2024 2:3 3pm CHEST PAIN November 29, 2024 2:5 9pm Hypoxemia December 03, 2024 11:0 5am Hypoxemia December 05, 2024 10:1 1am PALPITATIONS December 17, 2024 6:3 3pm Tachycardia/SOB/Weakness January 01 10:49am INT LAB ORDERS January 01, 2025 12: 33pm 1 M FU January 09, 2025 1:38pm IRON DEFICIENCY ANEMIA January 16, 2025 12 :53pm INT LAB ORDERS January 16, 2025 2:14p m INT ORDER January 17, 2025 1:28p m 2 M FU January 20, 2025 1:49p m DYSPNEA, SOB January 28, 2025 9:58a m Reason for Visit Admit Date Chest pain, unspecified October 23, 2 025 1:59pm Atherosclerotic heart diseas e of [place] coronary artery without angina pectoris October 23, 2024 1:59pm MIRAMONTES (dyspnea on exertion) October 23, 2024 1:59pm Benign essential hypertension November 2:13pm Diabetes November 11, 2024 2:1 3pm Hypothyroidism (acquired) November 11 2:13pm Mixed hyperlipidemia November 11, 2024 2: 13pm Obesity November 11, 2024 2:1 3pm Osteoporosis November 11, 2024 2:1 3pm Presence of stent in coronary artery Nov 2:13pm 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 2 diabetes mellitus November 11, 2024 2:13pm Hypoxia November 27, 2024 2:3 3pm MIRAMONTES (dyspnea on exertion) November 27 2:33pm Obesity November 27, 2024 2:3 3pm NATALIE (obstructive sleep apnea) November 2:33pm Palpitations January 01, 2025 10: 49am Pulmonary embolism January 01, 2025 10: 49am Benign essential hypertension December 10:49am MIRAMONTES (dyspnea on exertion) January 01 10:49am Mixed hyperlipidemia January 01, 2025 10 :49am Obesity January 01, 2025 10: 49am Stented coronary artery January 01, 2025 10:49am Hypoxia January 09, 2025 1:38pm Pulmonary embolism January 09, 2025 1:38pm Obesity January 09, 2025 1:38pm NATALIE (obstructive sleep apnea) January 09, 2 025 1:38pm Abdominal pain January 16, 2025 12:53 pm Diarrhea January 16, 2025 12:53 pm Fecal incontinence January 16, 2025 12:53 pm Iron deficiency anemia January 16, 2025 12 :53pm Benign essential hypertension January 20, 2025 1:49pm Diabetes January 20, 2025 1:49p m Hypothyroidism (acquired) January 20, 2025 1:49pm Mixed hyperlipidemia January 20, 2025 1:49 pm Obesity January 20, 2025 1:49p m Osteoporosis January 20, 2025 1:49p m 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 2 diabetes mellitus January 20, 2025 1:49pm Reason for Referral Specialty Diagnoses / Procedures Referred By Contac t Referred To Contact General Surgery Diagnoses Screening for colon cancer Procedures CONSULT TO GENERAL SURGERY OFFICE/OUTPATIENT [facility] 60-74 MINUTES Willard Henriquez MD [address] [place] [address] Referral ID Status Reason Start Date Expiration Date Visits Requested Visits Authorized [id number] Authorized PCP Requested Referral 04/06/2022 04/06/2023 1 1 Summary Purpose Additional Source Comments Goals (unrecognized section and content) Goals may be documented in a n alternate section Source Comments (unrecognize d section and content) In the event this informatio n is protected by the Federal Confidentiality of Alcohol and Drug Abuse Patient Records regulations: The Federal rules restrict any use of the information to criminally investigate or prosecute any alcohol or drug abuse patient.[facility] the event this information is protected by the Federal Confidentiality of Alcohol and Drug Abuse Patient Records regulations: The Federal rules restrict any use of the information to criminally investigate or prosecute any alcohol or drug abuse patient.[facility] the event this information is protected by the Federal Confidentiality of Alcohol and Drug Abuse Patient Records regulations: The Federal rules restrict any use of the information to criminally investigate or prosecute any alcohol or drug abuse patient.[facility] the event this information is protected by the Federal Confidentiality of Alcohol and Drug Abuse Patient Records regulations: The Federal rules restrict any use of the information to criminally investigate or prosecute any alcohol or drug abuse patient.[facility] the event this information is protected by the Federal Confidentiality of Alcohol and Drug Abuse Patient Records regulations: The Federal rules restrict any use of the information to criminally investigate or prosecute any alcohol or drug abuse patient.[facility] the event this information is protected by the Federal Confidentiality of Alcohol and Drug Abuse Patient Records regulations: The Federal rules restrict any use of the information to criminally investigate or prosecute any alcohol or drug abuse patient.[facility] the event this information is protected by the Federal Confidentiality of Alcohol and Drug Abuse Patient Records regulations: The Federal rules restrict any use of the information to criminally investigate or prosecute any alcohol or drug abuse patient.[facility] the event this information is protected by the Federal Confidentiality of Alcohol and Drug Abuse Patient Records regulations: The Federal rules restrict any use of the information to criminally investigate or prosecute any alcohol or drug abuse patient.[facility] the event this information is protected by the Federal Confidentiality of Alcohol and Drug Abuse Patient Records regulations: The Federal rules restrict any use of the information to criminally investigate or prosecute any alcohol or drug abuse patient.[facility] the event this information is protected by the Federal Confidentiality of Alcohol and Drug Abuse Patient Records regulations: The Federal rules restrict any use of the information to criminally investigate or prosecute any alcohol or drug abuse patient.[facility] the event this information is protected by the Federal Confidentiality of Alcohol and Drug Abuse Patient Records regulations: The Federal rules restrict any use of the information to criminally investigate or prosecute any alcohol or drug abuse patient.[facility] the event this information is protected by the Federal Confidentiality of Alcohol and Drug Abuse Patient Records regulations: The Federal rules restrict any use of the information to criminally investigate or prosecute any alcohol or drug abuse patient.[facility] the event this information is protected by the Federal Confidentiality of Alcohol and Drug Abuse Patient Records regulations: The Federal rules restrict any use of the information to criminally investigate or prosecute any alcohol or drug abuse patient.[facility] the event this information is protected by the Federal Confidentiality of Alcohol and Drug Abuse Patient Records regulations: The Federal rules restrict any use of the information to criminally investigate or prosecute any alcohol or drug abuse patient.[facility] the event this information is protected by the Federal Confidentiality of Alcohol and Drug Abuse Patient Records regulations: The Federal rules restrict any use of the information to criminally investigate or prosecute any alcohol or drug abuse patient.[facility] the event this information is protected by the Federal Confidentiality of Alcohol and Drug Abuse Patient Records regulations: The Federal rules restrict any use of the information to criminally investigate or prosecute any alcohol or drug abuse patient.[facility] the event this information is protected by the Federal Confidentiality of Alcohol and Drug Abuse Patient Records regulations: The Federal rules restrict any use of the information to criminally investigate or prosecute any alcohol or drug abuse patient.[facility] the event this information is protected by the Federal Confidentiality of Alcohol and Drug Abuse Patient Records regulations: The Federal rules restrict any use of the information to criminally investigate or prosecute any alcohol or drug abuse patient.[facility]In the event this information is protected by the Federal Confidentiality of Alcohol and Drug Abuse Patient Records regulations: The Federal rules restrict any use of the information to criminally investigate or prosecute any alcohol or drug abuse patient.[facility]In the event this information is protected by the Federal Confidentiality of Alcohol and Drug Abuse Patient Records regulations: The Federal rules restrict any use of the information to criminally investigate or prosecute any alcohol or drug abuse patient.[facility]In the event this information is protected by the Federal Confidentiality of Alcohol and Drug Abuse Patient Records regulations: The Federal rules restrict any use of the information to criminally investigate or prosecute any alcohol or drug abuse patient.[facility]In the event this information is protected by the Federal Confidentiality of Alcohol and Drug Abuse Patient Records regulations: The Federal rules restrict any use of the information to criminally investigate or prosecute any alcohol or drug abuse patient.[facility]In the event this information is protected by the Federal Confidentiality of Alcohol and Drug Abuse Patient Records regulations: The Federal rules restrict any use of the information to criminally investigate or prosecute any alcohol or drug abuse patient.[facility]In the event this information is protected by the Federal Confidentiality of Alcohol and Drug Abuse Patient Records regulations: The Federal rules restrict any use of the information to criminally investigate or prosecute any alcohol or drug abuse patient.[facility]In the event this information is protected by the Federal Confidentiality of Alcohol and Drug Abuse Patient Records regulations: The Federal rules restrict any use of the information to criminally investigate or prosecute any alcohol or drug abuse patient.[facility]In the event this information is protected by the Federal Confidentiality of Alcohol and Drug Abuse Patient Records regulations: The Federal rules restrict any use of the information to criminally investigate or prosecute any alcohol or drug abuse patient.[facility]In the event this information is protected by the Federal Confidentiality of Alcohol and Drug Abuse Patient Records regulations: The Federal rules restrict any use of the information to criminally investigate or prosecute any alcohol or drug abuse patient.[facility]In the event this information is protected by the Federal Confidentiality of Alcohol and Drug Abuse Patient Records regulations: The Federal rules restrict any use of the information to criminally investigate or prosecute any alcohol or drug abuse patient.[facility]In the event this information is protected by the Federal Confidentiality of Alcohol and Drug Abuse Patient Records regulations: The Federal rules restrict any use of the information to criminally investigate or prosecute any alcohol or drug abuse patient.[facility]In the event this information is protected by the Federal Confidentiality of Alcohol and Drug Abuse Patient Records regulations: The Federal rules restrict any use of the information to criminally investigate or prosecute any alcohol or drug abuse patient.[facility]In the event this information is protected by the Federal Confidentiality of Alcohol and Drug Abuse Patient Records regulations: The Federal rules restrict any use of the information to criminally investigate or prosecute any alcohol or drug abuse patient.[facility]In the event this information is protected by the Federal Confidentiality of Alcohol and Drug Abuse Patient Records regulations: The Federal rules restrict any use of the information to criminally investigate or prosecute any alcohol or drug abuse patient.[facility]In the event this information is protected by the Federal Confidentiality of Alcohol and Drug Abuse Patient Records regulations: The Federal rules restrict any use of the information to criminally investigate or prosecute any alcohol or drug abuse patient.[facility]In the event this information is protected by the Federal Confidentiality of Alcohol and Drug Abuse Patient Records regulations: The Federal rules restrict any use of the information to criminally investigate or prosecute any alcohol or drug abuse patient.[facility]In the event this information is protected by the Federal Confidentiality of Alcohol and Drug Abuse Patient Records regulations: The Federal rules restrict any use of the information to criminally investigate or prosecute any alcohol or drug abuse patient.[facility]In the event this information is protected by the Federal Confidentiality of Alcohol and Drug Abuse Patient Records regulations: The Federal rules restrict any use of the information to criminally investigate or prosecute any alcohol or drug abuse patient.[facility]In the event this information is protected by the Federal Confidentiality of Alcohol and Drug Abuse Patient Records regulations: The Federal rules restrict any use of the information to criminally investigate or prosecute any alcohol or drug abuse patient.[facility]In the event this information is protected by the Federal Confidentiality of Alcohol and Drug Abuse Patient Records regulations: The Federal rules restrict any use of the information to criminally investigate or prosecute any alcohol or drug abuse patient.[facility]In the event this information is protected by the Federal Confidentiality of Alcohol and Drug Abuse Patient Records regulations: The Federal rules restrict any use of the information to criminally investigate or prosecute any alcohol or drug abuse patient.[facility]In the event this information is protected by the Federal Confidentiality of Alcohol and Drug Abuse Patient Records regulations: The Federal rules restrict any use of the information to criminally investigate or prosecute any alcohol or drug abuse patient.[facility]In the event this information is protected by the Federal Confidentiality of Alcohol and Drug Abuse Patient Records regulations: The Federal rules restrict any use of the information to criminally investigate or prosecute any alcohol or drug abuse patient.[facility]In the event this information is protected by the Federal Confidentiality of Alcohol and Drug Abuse Patient Records regulations: The Federal rules restrict any use of the information to criminally investigate or prosecute any alcohol or drug abuse patient.[facility]In the event this information is protected by the Federal Confidentiality of Alcohol and Drug Abuse Patient Records regulations: The Federal rules restrict any use of the information to criminally investigate or prosecute any alcohol or drug abuse patient.[facility]In the event this information is protected by the Federal Confidentiality of Alcohol and Drug Abuse Patient Records regulations: The Federal rules restrict any use of the information to criminally investigate or prosecute any alcohol or drug abuse patient.[facility]In the event this information is protected by the Federal Confidentiality of Alcohol and Drug Abuse Patient Records regulations: The Federal rules restrict any use of the information to criminally investigate or prosecute any alcohol or drug abuse patient.[facility]In the event this information is protected by the Federal Confidentiality of Alcohol and Drug Abuse Patient Records regulations: The Federal rules restrict any use of the information to criminally investigate or prosecute any alcohol or drug abuse patient.[facility]In the event this information is protected by the Federal Confidentiality of Alcohol and Drug Abuse Patient Records regulations: The Federal rules restrict any use of the information to criminally investigate or prosecute any alcohol or drug abuse patient.[facility]In the event this information is protected by the Federal Confidentiality of Alcohol and Drug Abuse Patient Records regulations: The Federal rules restrict any use of the information to criminally investigate or prosecute any alcohol or drug abuse patient.[facility]In the event this information is protected by the Federal Confidentiality of Alcohol and Drug Abuse Patient Records regulations: The Federal rules restrict any use of the information to criminally investigate or prosecute any alcohol or drug abuse patient.[facility]In the event this information is protected by the Federal Confidentiality of Alcohol and Drug Abuse Patient Records regulations: The Federal rules restrict any use of the information to criminally investigate or prosecute any alcohol or drug abuse patient.[facility]In the event this information is protected by the Federal Confidentiality of Alcohol and Drug Abuse Patient Records regulations: The Federal rules restrict any use of the information to criminally investigate or prosecute any alcohol or drug abuse patient.[facility]In the event this information is protected by the Federal Confidentiality of Alcohol and Drug Abuse Patient Records regulations: The Federal rules restrict any use of the information to criminally investigate or prosecute any alcohol or drug abuse patient.[facility]In the event this information is protected by the Federal Confidentiality of Alcohol and Drug Abuse Patient Records regulations: The Federal rules restrict any use of the information to criminally investigate or prosecute any alcohol or drug abuse patient.[facility]In the event this information is protected by the Federal Confidentiality of Alcohol and Drug Abuse Patient Records regulations: The Federal rules restrict any use of the information to criminally investigate or prosecute any alcohol or drug abuse patient.[facility]In the event this information is protected by the Federal Confidentiality of Alcohol and Drug Abuse Patient Records regulations: The Federal rules restrict any use of the information to criminally investigate or prosecute any alcohol or drug abuse patient.[facility]In the event this information is protected by the Federal Confidentiality of Alcohol and Drug Abuse Patient Records regulations: The Federal rules restrict any use of the information to criminally investigate or prosecute any alcohol or drug abuse patient.[facility]In the event this information is protected by the Federal Confidentiality of Alcohol and Drug Abuse Patient Records regulations: The Federal rules restrict any use of the information to criminally investigate or prosecute any alcohol or drug abuse patient.[facility]In the event this information is protected by the Federal Confidentiality of Alcohol and Drug Abuse Patient Records regulations: The Federal rules restrict any use of the information to criminally investigate or prosecute any alcohol or drug abuse patient.[facility]In the event this information is protected by the Federal Confidentiality of Alcohol and Drug Abuse Patient Records regulations: The Federal rules restrict any use of the information to criminally investigate or prosecute any alcohol or drug abuse patient.[facility]In the event this information is protected by the Federal Confidentiality of Alcohol and Drug Abuse Patient Records regulations: The Federal rules restrict any use of the information to criminally investigate or prosecute any alcohol or drug abuse patient.[facility]In the event this information is protected by the Federal Confidentiality of Alcohol and Drug Abuse Patient Records regulations: The Federal rules restrict any use of the information to criminally investigate or prosecute any alcohol or drug abuse patient.[facility]In the event this information is protected by the Federal Confidentiality of Alcohol and Drug Abuse Patient Records regulations: The Federal rules restrict any use of the information to criminally investigate or prosecute any alcohol or drug abuse patient.[facility]In the event this information is protected by the Federal Confidentiality of Alcohol and Drug Abuse Patient Records regulations: The Federal rules restrict any use of the information to criminally investigate or prosecute any alcohol or drug abuse patient.[facility]In the event this information is protected by the Federal Confidentiality of Alcohol and Drug Abuse Patient Records regulations: The Federal rules restrict any use of the information to criminally investigate or prosecute any alcohol or drug abuse patient.[facility]In the event this information is protected by the Federal Confidentiality of Alcohol and Drug Abuse Patient Records regulations: The Federal rules restrict any use of the information to criminally investigate or prosecute any alcohol or drug abuse patient.[facility]In the event this information is protected by the Federal Confidentiality of Alcohol and Drug Abuse Patient Records regulations: The Federal rules restrict any use of the information to criminally investigate or prosecute any alcohol or drug abuse patient.[facility]In the event this information is protected by the Federal Confidentiality of Alcohol and Drug Abuse Patient Records regulations: The Federal rules restrict any use of the information to criminally investigate or prosecute any alcohol or drug abuse patient.[facility]In the event this information is protected by the Federal Confidentiality of Alcohol and Drug Abuse Patient Records regulations: The Federal rules restrict any use of the information to criminally investigate or prosecute any alcohol or drug abuse patient.[facility]In the event this information is protected by the Federal Confidentiality of Alcohol and Drug Abuse Patient Records regulations: The Federal rules restrict any use of the information to criminally investigate or prosecute any alcohol or drug abuse patient.[facility]In the event this information is protected by the Federal Confidentiality of Alcohol and Drug Abuse Patient Records regulations: The Federal rules restrict any use of the information to criminally investigate or prosecute any alcohol or drug abuse patient.[facility]In the event this information is protected by the Federal Confidentiality of Alcohol and Drug Abuse Patient Records regulations: The Federal rules restrict any use of the information to criminally investigate or prosecute any alcohol or drug abuse patient.[facility]In the event this information is protected by the Federal Confidentiality of Alcohol and Drug Abuse Patient Records regulations: The Federal rules restrict any use of the information to criminally investigate or prosecute any alcohol or drug abuse patient.[facility]In the event this information is protected by the Federal Confidentiality of Alcohol and Drug Abuse Patient Records regulations: The Federal rules restrict any use of the information to criminally investigate or prosecute any alcohol or drug abuse patient.[facility]In the event this information is protected by the Federal Confidentiality of Alcohol and Drug Abuse Patient Records regulations: The Federal rules restrict any use of the information to criminally investigate or prosecute any alcohol or drug abuse patient.[facility]In the event this information is protected by the Federal Confidentiality of Alcohol and Drug Abuse Patient Records regulations: The Federal rules restrict any use of the information to criminally investigate or prosecute any alcohol or drug abuse patient.[facility]In the event this information is protected by the Federal Confidentiality of Alcohol and Drug Abuse Patient Records regulations: The Federal rules restrict any use of the information to criminally investigate or prosecute any alcohol or drug abuse patient.[facility]In the event this information is protected by the Federal Confidentiality of Alcohol and Drug Abuse Patient Records regulations: The Federal rules restrict any use of the information to criminally investigate or prosecute any alcohol or drug abuse patient.[facility]In the event this information is protected by the Federal Confidentiality of Alcohol and Drug Abuse Patient Records regulations: The Federal rules restrict any use of the information to criminally investigate or prosecute any alcohol or drug abuse patient.[facility]In the event this information is protected by the Federal Confidentiality of Alcohol and Drug Abuse Patient Records regulations: The Federal rules restrict any use of the information to criminally investigate or prosecute any alcohol or drug abuse patient.[facility]In the event this information is protected by the Federal Confidentiality of Alcohol and Drug Abuse Patient Records regulations: The Federal rules restrict any use of the information to criminally investigate or prosecute any alcohol or drug abuse patient.[facility]In the event this information is protected by the Federal Confidentiality of Alcohol and Drug Abuse Patient Records regulations: The Federal rules restrict any use of the information to criminally investigate or prosecute any alcohol or drug abuse patient.[facility]In the event this information is protected by the Federal Confidentiality of Alcohol and Drug Abuse Patient Records regulations: The Federal rules restrict any use of the information to criminally investigate or prosecute any alcohol or drug abuse patient.[facility]In the event this information is protected by the Federal Confidentiality of Alcohol and Drug Abuse Patient Records regulations: The Federal rules restrict any use of the information to criminally investigate or prosecute any alcohol or drug abuse patient.[facility]In the event this information is protected by the Federal Confidentiality of Alcohol and Drug Abuse Patient Records regulations: The Federal rules restrict any use of the information to criminally investigate or prosecute any alcohol or drug abuse patient.[facility]In the event this information is protected by the Federal Confidentiality of Alcohol and Drug Abuse Patient Records regulations: The Federal rules restrict any use of the information to criminally investigate or prosecute any alcohol or drug abuse patient.[facility]In the event this information is protected by the Federal Confidentiality of Alcohol and Drug Abuse Patient Records regulations: The Federal rules restrict any use of the information to criminally investigate or prosecute any alcohol or drug abuse patient.[facility]In the event this information is protected by the Federal Confidentiality of Alcohol and Drug Abuse Patient Records regulations: The Federal rules restrict any use of the information to criminally investigate or prosecute any alcohol or drug abuse patient.[facility]In the event this information is protected by the Federal Confidentiality of Alcohol and Drug Abuse Patient Records regulations: The Federal rules restrict any use of the information to criminally investigate or prosecute any alcohol or drug abuse patient.[facility]In the event this information is protected by the Federal Confidentiality of Alcohol and Drug Abuse Patient Records regulations: The Federal rules restrict any use of the information to criminally investigate or prosecute any alcohol or drug abuse patient.[facility]In the event this information is protected by the Federal Confidentiality of Alcohol and Drug Abuse Patient Records regulations: The Federal rules restrict any use of the information to criminally investigate or prosecute any alcohol or drug abuse patient.[facility]In the event this information is protected by the Federal Confidentiality of Alcohol and Drug Abuse Patient Records regulations: The Federal rules restrict any use of the information to criminally investigate or prosecute any alcohol or drug abuse patient.[facility]In the event this information is protected by the Federal Confidentiality of Alcohol and Drug Abuse Patient Records regulations: The Federal rules restrict any use of the information to criminally investigate or prosecute any alcohol or drug abuse patient.[facility]In the event this information is protected by the Federal Confidentiality of Alcohol and Drug Abuse Patient Records regulations: The Federal rules restrict any use of the information to criminally investigate or prosecute any alcohol or drug abuse patient.[facility]In the event this information is protected by the Federal Confidentiality of Alcohol and Drug Abuse Patient Records regulations: The Federal rules restrict any use of the information to criminally investigate or prosecute any alcohol or drug abuse patient.[facility]In the event this information is protected by the Federal Confidentiality of Alcohol and Drug Abuse Patient Records regulations: The Federal rules restrict any use of the information to criminally investigate or prosecute any alcohol or drug abuse patient.[facility]In the event this information is protected by the Federal Confidentiality of Alcohol and Drug Abuse Patient Records regulations: The Federal rules restrict any use of the information to criminally investigate or prosecute any alcohol or drug abuse patient.[facility]In the event this information is protected by the Federal Confidentiality of Alcohol and Drug Abuse Patient Records regulations: The Federal rules restrict any use of the information to criminally investigate or prosecute any alcohol or drug abuse patient.[facility]In the event this information is protected by the Federal Confidentiality of Alcohol and Drug Abuse Patient Records regulations: The Federal rules restrict any use of the information to criminally investigate or prosecute any alcohol or drug abuse patient.[facility]In the event this information is protected by the Federal Confidentiality of Alcohol and Drug Abuse Patient Records regulations: The Federal rules restrict any use of the information to criminally investigate or prosecute any alcohol or drug abuse patient.[facility]In the event this information is protected by the Federal Confidentiality of Alcohol and Drug Abuse Patient Records regulations: The Federal rules restrict any use of the information to criminally investigate or prosecute any alcohol or drug abuse patient.[facility]In the event this information is protected by the Federal Confidentiality of Alcohol and Drug Abuse Patient Records regulations: The Federal rules restrict any use of the information to criminally investigate or prosecute any alcohol or drug abuse patient.[facility]In the event this information is protected by the Federal Confidentiality of Alcohol and Drug Abuse Patient Records regulations: The Federal rules restrict any use of the information to criminally investigate or prosecute any alcohol or drug abuse patient.[facility]In the event this information is protected by the Federal Confidentiality of Alcohol and Drug Abuse Patient Records regulations: The Federal rules restrict any use of the information to criminally investigate or prosecute any alcohol or drug abuse patient.[facility]In the event this information is protected by the Federal Confidentiality of Alcohol and Drug Abuse Patient Records regulations: The Federal rules restrict any use of the information to criminally investigate or prosecute any alcohol or drug abuse patient.[facility]In the event this information is protected by the Federal Confidentiality of Alcohol and Drug Abuse Patient Records regulations: The Federal rules restrict any use of the information to criminally investigate or prosecute any alcohol or drug abuse patient.[facility] the event this information is protected by the Federal Confidentiality of Alcohol and Drug Abuse Patient Records regulations: The Federal rules restrict any use of the information to criminally investigate or prosecute any alcohol or drug abuse patient.[facility] Reason for Visit (unrecogniz ed section and content) Reason Onset Date Comments Refill Request 01/14/2022 Reason Comments Hematuria x3 days with painful urination Reason Comments Outside Labs Results Reason Comments outside cardiology Reason Comments requesting office notes Reason Comments Physical Reason Comments Lab Orders Reason Comments Results Reason Comments Pathology Report colonoscopy Reason Onset Date Comments Refill Request 06/09/2022 Reason Onset Date Comments Refill Request 08/25/2022 Reason Onset Date Comments Refill Request 08/25/2022 Refill Request 08/26/2022 Reason Comments Appointment Reason Comments F/U 6 months Reason Comments Refill Request Reason Onset Date Comments Refill Request 12/24/2022 Reason Onset Date Comments Refill Request 02/02/2023 Reason Onset Date Comments Refill Request 02/06/2023 Reason Comments Results, Lab Reason Comments Consult Reason Comments Pre-Op Exam Reason Comments Forms Reason Comments Orders Reason Comments Medicare Wellness Exam Reason Onset Date Comments Population Health Navigation Outreach 08/02/2023 ACO CARE GAPS Reason Comments Outside [id number] Ordered Reason Onset Date Comments Refill Request 10/17/2023 Reason Comments Outside Endocrinology Reason Comments Outside Cardiology Lab Reason Comments Medicare Wellness Exam Reason Comments 6 Month Exam Reason Comments ext document Endo report Reason Comments Ext / Physical Therapy Reason Comments Outside Surgery Consult Reason Comments Outside Cardiac Reason Comments Outside Lab Results Reason Comments Outside Surgical Consult Reason Comments Outside Imaging Reason Comments New Patient Specialty Diagnoses / Procedures Referred By Contac t Referred To Contact Ophthalmology Diagnoses Papilledema Dee Euceda MD [address] [place] [address] Phillip Whelan MD [address] [facility] [address] [place] [address] Referral ID Status Reason Start Date Expiration Date V isits Requested Visits Authorized [id number] Pending Review 02/20/2024 03/16/2025 1 1 Reason Comments Consult PT Reason Comments Edema Left leg X 1 day Reason Comments Outside Rheumatology Reason Comments ER Discharge Summary Reason Onset Date Comments Refill Request 05/18/2024 Reason Comments Results Outside labs Reason Onset Date Comments Refill Request 08/12/2024 Reason Comments Consult Outside cardiology Reason Comments Results Outside lab results Reason Comments Consult Outside Endocrinolog y Reason Comments ER F/U [facility] ER Reason Comments ER F/U Reason Onset Date Comments Refill Request 12/31/2024 Reason Comments Outside Cardiology Labs Reason Comments Hospital F/U Reason Comments Outside Pulmonary Reason Onset Date Comments Population Health Navigation Outreach 01/13/2025 ACO WORKBENCH MELISSA PCSA Reason Comments Follow-up Reason Comments Outside Echo Reason Comments Follow Up Reason Onset Date Comments Refill Request 02/06/2025 Care Teams (unrecognized sec tion and content) Director Of Speech Pathology Relationship Specialty Start Date End Date Willard Henriquez MD [address] [place] [address] PCP - General Family Practice 03/19/21 Director Of Speech Pathology Relationship Specialty Start Date End Date Willard Henriquez MD [address] [place] [address] PCP - General Family Practice 03/19/21 Director Of Speech Pathology Relationship Specialty Start Date End Date Willard Henriquez MD [address] [place] [address] PCP - General Family Practice 03/19/21 Director Of Speech Pathology Relationship Specialty Start Date End Date Willard Henriquez MD [address] [place] [address] PCP - General Family Practice 03/19/21 Director Of Speech Pathology Relationship Specialty Start Date End Date Willard Henriquez MD [address] [place] [address] PCP - General Family Practice 03/19/21 Director Of Speech Pathology Relationship Specialty Start Date End Date Willard Henriquez MD [address] [place] [address] PCP - General Family Practice 03/19/21 Director Of Speech Pathology Relationship Specialty Start Date End Date Willard Henriquez MD [facility] [place] [address] PCP - General Family Practice 03/19/21 Director Of Speech Pathology Relationship Specialty Start Date End Date Willard Henriquez MD [address] [place] [address] PCP - General Family Practice 03/19/21 Director Of Speech Pathology Relationship Specialty Start Date End Date Willard Henriquez MD [address] [place] [address] PCP - General Family Medicine 03/19/21 Director Of Speech Pathology Relationship Specialty Start Date End Date Willard Henriquez MD [address] [place] [address] PCP - General Family Medicine 03/19/21 Director Of Speech Pathology Relationship Specialty Start Date End Date Willard Henriquez MD [address] [place] [address] PCP - General Family Medicine 03/19/21 Director Of Speech Pathology Relationship Specialty Start Date End Date Willard Henriquez MD [address] [place] [address] PCP - General Family Medicine 03/19/21 Director Of Speech Pathology Relationship Specialty Start Date End Date Willard Henriquez MD [address] [facility] [place] [address] PCP - General Family Medicine 03/19/21 Director Of Speech Pathology Relationship Specialty Start Date End Date Willard Henriquez MD [address] [place] [address] PCP - General Family Medicine 03/19/21 Director Of Speech Pathology Relationship Specialty Start Date End Date Willard Henriquez MD [address] [place] [address] PCP - General Family Medicine 03/19/21 Director Of Speech Pathology Relationship Specialty Start Date End Date Willard Henriquez MD [address] [place] [address] PCP - General Family Medicine 03/19/21 Team Status: Active Member Role Status Dates Dr. Porfirio Garzon III, MD Family Provider Active Dr. Willard Henriquez MD Primary Care Provider Active Team Status: Inactive Member Role Status Dates Dr. Willard Henriquez MD Primary Care Provider, Referri ng Provider Active Robert Cheng OIL REFINERY OPERATOR, OIL REFINERY OPERATOR-C Attending Provider Active Team Status: Inactive Member Role Status Dates Dr. Willard Henriquez MD Primary Care Provider, Referri ng Provider Active Dr. Jorje Marques MD Attending Provider Active Team Status: Inactive Member Role Status Dates Dr. Willard Henriquez MD Primary Care Provider Active Dr. Jorje Marques MD Attending Provider, Referring Provi gayle Active Team Status: Inactive Member Role Status Dates Dr. Willard Henriquez MD Primary Care Provider Active JAIME MENDEZ Attending Provider, Referring Provider Active Team Status: Inactive Member Role Status Dates Dr. Willard Henriquez MD Primary Care Provider Active JAIME MENDEZ Attending Provider Active Director Of Speech Pathology Relationship Specialty Start Date End Date Willard Henriquez MD [facility] [place] [address] PCP - General Family Medicine 03/19/21 Director Of Speech Pathology Relationship Specialty Start Date End Date Willard Henriquez MD [facility] [place] [address] PCP - General Family Medicine 03/19/21 Director Of Speech Pathology Relationship Specialty Start Date End Date Willard Henriquez MD [address] [place] [address] PCP - General Family Medicine 03/19/21 Director Of Speech Pathology Relationship Specialty Start Date End Date Willard Henriquez MD [address] [place] [address] PCP - General Family Medicine 03/19/21 Director Of Speech Pathology Relationship Specialty Start Date End Date Willard Henriquez MD [address] [place] [address] PCP - General Family Medicine 03/19/21 Director Of Speech Pathology Relationship Specialty Start Date End Date Willard Henriquez MD [address] [place] [address] PCP - General Family Medicine 03/19/21 Director Of Speech Pathology Relationship Specialty Start Date End Date Willard Henriquez MD [address] [place] [address] PCP - General Family Medicine 03/19/21 Director Of Speech Pathology Relationship Specialty Start Date End Date Willard Henriquez MD [address] [place] [address] PCP - General Family Medicine 03/19/21 Director Of Speech Pathology Relationship Specialty Start Date End Date Willard Henriquez MD [address] [place] [address] PCP - General Family Medicine 03/19/21 Director Of Speech Pathology Relationship Specialty Start Date End Date Willard Henriquez MD [address] [place] [address] PCP - General Family Medicine 03/19/21 Director Of Speech Pathology Relationship Specialty Start Date End Date Willard Henriquez MD [address] [place] [address] PCP - General Family Medicine 03/19/21 Director Of Speech Pathology Relationship Specialty Start Date End Date Willard Henriquez MD [address] [place] [address] PCP - General Family Medicine 03/19/21 Director Of Speech Pathology Relationship Specialty Start Date End Date Willard Henriquez MD [address] [place] [address] PCP - General Family Medicine 03/19/21 Director Of Speech Pathology Relationship Specialty Start Date End Date Willard Henriquez MD [address] [place] [address] PCP - General Family Medicine 03/19/21 Team Status: Inactive Member Role Status Dates Dr. Willard Henriquez MD Primary Care Provider, Referri ng Provider Active Dr. Ventura Chris MD Attending Provider Active Team Status: Inactive Member Role Status Dates Dr. Willard Henriquez MD Primary Care Provider, Referri ng Provider Active Carrie Waters PA, PA Attending Provider Active Team Status: Active Member Role Status Dates Dr. Willard Henriquez MD Primary Care Provider Active DEVEN MENDEZ Attending Provider, Referring Provider Active Team Status: Inactive Member Role Status Dates Dr. Willard Henriquez MD Primary Care Provider Active Dr. Ventura Chris MD Attending Provider, Referring Pr ovider Active Director Of Speech Pathology Relationship Specialty Start Date End Date Willard Henriquez MD [address] [place] [address] PCP - General Family Medicine 03/19/21 Director Of Speech Pathology Relationship Specialty Start Date End Date Willard Henriquez MD [address] [place] [address] PCP - General Family Medicine 03/19/21 Director Of Speech Pathology Relationship Specialty Start Date End Date Willard Henriquez MD [address] [place] [address] PCP - General Family Medicine 03/19/21 Director Of Speech Pathology Relationship Specialty Start Date End Date Willard Henriquez MD [address] [place] [address] PCP - General Family Medicine 03/19/21 Team Status: Inactive Member Role Status Dates Dr. Willard Henriquez MD Primary Care Provider Active DEVEN MENDEZ Attending Provider, Referring Provider Active Director Of Speech Pathology Relationship Specialty Start Date End Date Willard Henriquez MD [address] [place] [address] PCP - General Family Medicine 03/19/21 Director Of Speech Pathology Relationship Specialty Start Date End Date Willard Henriquez MD [address] [place] [address] PCP - General Family Medicine 03/19/21 Director Of Speech Pathology Relationship Specialty Start Date End Date Willard Henriquez MD [address] [place] [address] PCP - General Family Medicine 03/19/21 Director Of Speech Pathology Relationship Specialty Start Date End Date Willard Henriquez MD [address] [place] [address] PCP - General Family Medicine 03/19/21 Director Of Speech Pathology Relationship Specialty Start Date End Date Willard Henriquez MD [address] [place] [address] PCP - General Family Medicine 03/19/21 Director Of Speech Pathology Relationship Specialty Start Date End Date Willard Henriquez MD [address] [place] [address] PCP - General Family Medicine 03/19/21 Team Status: Inactive Member Role Status Dates Dr. Willard Henriquez MD Primary Care Provider, Referri ng Provider Active Dr. Rahul Stone DO Attending Provider Active Team Status: Inactive Member Role Status Dates Dr. Willard Henriquez MD Primary Care Provider Active Dr. Kilo Rey MD Attending Provider Active Team Status: Active Member Role Status Dates Dr. Willard Henriquez MD Primary Care Provider Active Dr. Kilo Rey MD Attending Provider Active Team Status: Inactive Member Role Status Dates Dr. Willard Henriquez MD Primary Care Provider Active Carrie Waters PA, PA Attending Provider, Referr ing Provider Active Director Of Speech Pathology Relationship Specialty Start Date End Date Willard Henriquez MD [address] [place] [address] PCP - General Family Medicine 03/19/21 Director Of Speech Pathology Relationship Specialty Start Date End Date Willard Henriquez MD [address] [place] [address] PCP - General Family Medicine 03/28/24 Rahul Stone Jr., MD [address] [place] [address] Orthopaedic Surgery 03/28/24 David Florez DO [address] [place] [phone] Resident Pulmonary Disease 03/28/24 Nic Coleman MD [address] [place] [phone] General Surgery 03/28/24 Chilo Yeager MD [address] [place] [address] Dermatology 03/28/24 Kilo Rey MD [address] [place] [phone] Cardiovascular Disease 03/28/24 Nikki Dangelo MD [address] [facility] [address] [place] [phone] Rheumatology 03/28/24 Andrea Sandoval MD [address] [place] [address] Orthopaedic Surgery 03/28/24 Director Of Speech Pathology Relationship Specialty Start Date End Date Willard Henriquez MD [address] [place] [address] PCP - General Family Medicine 03/19/21 Director Of Speech Pathology Relationship Specialty Start Date End Date Willard Henriquez MD [address] [place] [address] PCP - General Family Medicine 03/19/21 Director Of Speech Pathology Relationship Specialty Start Date End Date Willard Henriquez MD [address] [place] [address] PCP - General Family Medicine 03/19/21 Director Of Speech Pathology Relationship Specialty Start Date End Date Willard Henriquez MD [address] [place] [address] PCP - General Family Medicine 03/19/21 Director Of Speech Pathology Relationship Specialty Start Date End Date Willard Henriquez MD [address] [place] [address] PCP - General Family Medicine 03/19/21 Director Of Speech Pathology Relationship Specialty Start Date End Date Willard Henriquez MD [address] [place] [address] PCP - General Family Medicine 03/19/21 Padmini Anguiano APRN.CNP [address] [place] [address] [facility] 08/10/24 Jesica Sierra PA-C [address] [place] [address] [facility] 08/10/24 Director Of Speech Pathology Relationship Specialty Start Date End Date Willard Henriquez MD [address] [place] [address] PCP - General Family Medicine 03/19/21 Padmini Anguiano APRN.ENROLLMENT REPRESENTATIVE [address] [place] [address] [facility] 08/10/24 Jesica Sierra PA-C [address] [place] [address] [facility] 08/10/24 Director Of Speech Pathology Relationship Specialty Start Date End Date Willard Henriquez MD [address] [place] [address] PCP - General Family Medicine 03/19/21 Padmini Anguiano APRN.ENROLLMENT REPRESENTATIVE [address] [place] [address] [facility] 08/10/24 Jesica Sierra PA-C [address] [place] [address] [facility] 08/10/24 Director Of Speech Pathology Relationship Specialty Start Date End Date Willard Henriquez MD [address] [place] [address] PCP - General Family Medicine 03/19/21 Padmini Anguaino APRN.ENROLLMENT REPRESENTATIVE [address] [place] [address] [phone] [facility] 08/10/24 Jesica Sierra PA-C [address] [place], [place] [address] [phone] [facility] 08/10/24 Director Of Speech Pathology Relationship Specialty Start Date End Date Willard Henriquez MD [address] [place] [address] PCP - General Family Medicine 03/19/21 Padmini Anguiano APRN.ENROLLMENT REPRESENTATIVE [address] [place] [address] [facility] 08/10/24 Jesica Sierra PA-C [address] [place] [address] [facility] 08/10/24 Director Of Speech Pathology Relationship Specialty Start Date End Date Willard Henriquez MD [address] [place] [address] PCP - General Family Medicine 03/19/21 Padmini Anguiano APRN.ENROLLMENT REPRESENTATIVE [address] [place] [address] [facility] 08/10/24 Jesica Sierra PA-C [address] [place], [place] [address] [phone] [facility] 08/10/24 Team Status: Inactive Member Role Status Dates Dr. Willard Henriquez MD Primary Care Provider Active Start: July 31, 2024 End: July 31, 2024 Dr. Nikki Dangelo MD Attending Provider Active Start: July 31, 2024 End: July 31, 2024 Dr. Nikki Dangelo MD Referring Provider Active Start: July 31, 2024 End: July 31, 2024 Team Status: Inactive Member Role Status Dates Dr. Willard Henriquez MD Primary Care Provider Active Start: September 30, 2024 End: September 30, 2024 Dr. Nikki Dangelo MD Attending Provider Active Start: September 30, 2024 End: September 30, 2024 Dr. Nikki Dangelo MD Referring Provider Active Start: September 30, 2024 End: September 30, 2024 Team Status: Inactive Member Role Status Dates Dr. Willard Henriquez MD Primary Care Provider Active Start: October 23, 2024 End: October 23, 2024 Dr. Willard Henriquez MD Referring Provider Active Start: October 23, 2024 End: October 23, 2024 Dr. Jericho Cervantes MD Attending Provider Active Start: October 23, 2024 End: October 23, 2024 Team Status: Inactive Member Role Status Dates Dr. Willard Henriquez MD Primary Care Provider Active Start: October 31, 2024 End: October 31, 2024 Dr. Nikki Dangelo MD Attending Provider Active Start: October 31, 2024 End: October 31, 2024 Dr. Nikki Dangelo MD Referring Provider Active Start: October 31, 2024 End: October 31, 2024 Team Status: Inactive Member Role Status Dates Dr. Willard Henriquez MD Primary Care Provider Active Start: November 11, 2024 End: November 11, 2024 Dr. Willard Henriquez MD Referring Provider Active Start: November 11, 2024 End: November 11, 2024 Dr. Jorje Marques MD Attending Provider Active Sta rt: November 11, 2024 End: November 11, 2024 Team Status: Active Member Role Status Dates Dr. Willard Henriquez MD Primary Care Provider Active Team Status: Inactive Member Role Status Dates Dr. Willard Henriquez MD Primary Care Provider Active Start: November 27, 2024 End: November 27, 2024 Dr. Willard Henriquez MD Referring Provider Active Start: November 27, 2024 End: November 27, 2024 Cathy Darling NP, OIL REFINERY OPERATOR-C Attending Provider Active Start: November 27, 2024 End: March 26th, 2025 Team Status: Inactive Member Role Status Dates Dr. Willard Henriquez MD Primary Care Provider Active Start: November 29, 2024 End: November 29, 2024 Dr. Glen Vital MD Emergency Provider Active S tart: November 29, 2024 End: November 29, 2024 Director Of Speech Pathology Relationship Specialty Start Date End Date Willard Henriquez MD [address] [place] [address] PCP - General Family Medicine 03/19/21 Padmini Anguiano, STOVE POLISHER.ENROLLMENT REPRESENTATIVE [address] [place] [id number] [facility] 08/10/24 Jesica Sierra PA-C [address] [place] [address] [facility] 08/10/24 Director Of Speech Pathology Relationship Specialty Start Date End Date Willard Henriquez MD [address] [place] [address] PCP - General Family Medicine 03/19/21 Padmini Anguiano, STOVE POLISHER.ENROLLMENT REPRESENTATIVE [address] [place] [phone] [facility] 08/10/24 Jesica Sierra PA-C [facility] [place] [address] [facility] Medicine 08/10/24 Team Status: Inactive Member Role Status Dates Dr. Willard Henriquez MD Primary Care Provider Active Start: November 29, 2024 End: November 29, 2024 Dr. Glen Vital MD Attending Provider Active S tart: November 29, 2024 End: November 29, 2024 Dr. Glen Vital MD Emergency Provider Active S tart: November 29, 2024 End: November 29, 2024 Team Status: Inactive Member Role Status Dates Dr. Willard Henriquez MD Primary Care Provider Active Start: December 03, 2024 End: December 03, 2024 Cathy Darling OIL REFINERY OPERATOR, OIL REFINERY OPERATOR-C Attending Provider Active Start: December 03, 2024 End: December 03, 2024 Cathy Darling OIL REFINERY OPERATOR, OIL REFINERY OPERATOR-C Referring Provider Active Start: December 03, 2024 End: December 03, 2024 Team Status: Active Member Role Status Dates Dr. Willard Henriquez MD Primary Care Provider Active Start: December 05, 2024 Cathy Darling OIL REFINERY OPERATOR, OIL REFINERY OPERATOR-C Referring Provider Active Start: December 05, 2024 Cathy Darling OIL REFINERY OPERATOR, OIL REFINERY OPERATOR-C Other Provider Active Start: December 05, 2024 Dr. David Florez DO Attending Provider Active S tart: December 05, 2024 Team Status: Inactive Member Role Status Dates Dr. Willard Henriquez MD Primary Care Provider Active Start: December 12, 2024 End: December 12, 2024 Dr. Nikki Dangelo MD Attending Provider Active Start: December 12, 2024 End: December 12, 2024 Dr. Nikki Dangelo MD Referring Provider Active Start: December 12, 2024 End: December 12, 2024 Team Status: Inactive Member Role Status Dates Dr. Willard Henriquez MD Primary Care Provider Active Start: December 17, 2024 End: December 17, 2024 Son Craft MD Emergency Provider Active Star t: December 17, 2024 End: December 17, 2024 Director Of Speech Pathology Relationship Specialty Start Date End Date Willard Henriquez MD [address] [place] [address] PCP - General Family Medicine 12/09/24 Padmini Anguiano APRN.CNP [address] [place] [phone] [facility] Family Medicine 08/10/24 Jesica Sierra PA-C [address] [place] [phone] [facility] 08/10/24 Director Of Speech Pathology Relationship Specialty Start Date End Date Willard Henriquez MD [address] [place] [address] PCP - General Family Medicine 12/09/24 Padmini Anguiano, OSCAR.ENROLLMENT REPRESENTATIVE [address] [place] [address] [facility] 08/10/24 Jesica Sierra PA-C [address] [place] [address] [facility] 08/10/24 Director Of Speech Pathology Relationship Specialty Start Date End Date Willard Henriquez MD [address] [place] [address] PCP - General Family Medicine 12/09/24 Padmini Anguiano, STOVE POLISHER.ENROLLMENT REPRESENTATIVE [facility] [place] [address] [facility] 08/10/24 Jesica Sierra PA-C [address] [place] [address] [facility] 08/10/24 Director Of Speech Pathology Relationship Specialty Start Date End Date Willard Henriquez MD [address] [place] [address] PCP - General Family Medicine 12/09/24 Padmini Anguiano STOVE POLISHER.ENROLLMENT REPRESENTATIVE [address] [place] [address] [facility] 08/10/24 Jesica Sierra PA-C [address] [place] [address] [facility] 08/10/24 Team Status: Inactive Member Role Status Dates Dr. Willard Henriquez MD Primary Care Provider Active Start: December 17, 2024 End: December 17, 2024 Son Craft MD Attending Provider Active Star t: December 17, 2024 End: December 17, 2024 Son Craft MD Emergency Provider Active Star t: December 17, 2024 End: December 17, 2024 Team Status: Inactive Member Role Status Dates Dr. Willard Henriquez MD Primary Care Provider Active Start: January 01, 2025 End: January 01, 2025 Dr. Willard Henriquez MD Referring Provider Active Start: January 01, 2025 End: January 01, 2025 Robert Cheng OIL REFINERY OPERATOR, OIL REFINERY OPERATOR-C Attending Provider Active S tart: January 01, 2025 End: January 01, 2025 Team Status: Inactive Member Role Status Dates Dr. Willard Henriquez MD Primary Care Provider Active Start: January 01, 2025 End: January 01, 2025 Robert Cheng OIL REFINERY OPERATOR, OIL REFINERY OPERATOR-C Attending Provider Active S tart: January 01, 2025 End: January 01, 2025 Robert Cheng OIL REFINERY OPERATOR, OIL REFINERY OPERATOR-C Referring Provider Active S tart: January 01, 2025 End: January 01, 2025 Team Status: Inactive Member Role Status Dates Dr. Willard Henriquez MD Primary Care Provider Active Start: January 09, 2025 End: January 09, 2025 Dr. Willard Henriquez MD Referring Provider Active Start: January 09, 2025 End: January 09, 2025 Cathy Darling NP, OIL REFINERY OPERATOR-C Attending Provider Active Start: January 09, 2025 End: January 09, 2025 Team Status: Inactive Member Role Status Dates Dr. Willard Henriquez MD Primary Care Provider Active Start: January 16, 2025 End: January 16, 2025 Dr. Willard Henriquez MD Referring Provider Active Start: January 16, 2025 End: January 16, 2025 Shelli Petit NP-C Attending Provider Active S tart: January 16, 2025 End: January 16, 2025 Team Status: Active Member Role Status Dates Dr. Willard Henriquez MD Primary Care Provider Active Start: January 16, 2025 MABLE Whiteside Attending Provider Active S tart: January 16, 2025 MABLE Whiteside Referring Provider Active S tart: January 16, 2025 Director Of Speech Pathology Relationship Specialty Start Date End Date Willard Henriquez MD [address] [place] [address] PCP - General Family Medicine 03/28/24 Rahul Stone Jr., MD [address] [place] [address] Orthopaedic Surgery 03/28/24 David Florez DO [address] [place] [address] Resident Pulmonary Disease 03/28/24 Nic Coleman MD [address] [place] [address] General Surgery 03/28/24 Chilo Yeager MD [address] [place] [address] Dermatology 03/28/24 Kilo Rey MD [address] [place] [address] Cardiovascular Disease 03/28/24 Nikki Dangelo MD [address] [place] [address] Rheumatology 03/28/24 Andrea Sandoval MD [address] [place] [address] Orthopaedic Surgery 03/28/24 Team Status: Active Member Role Status Dates Dr. Willard Henriquez MD Primary Care Provider Active Start: January 17, 2025 MABLE Whiteside Attending Provider Active S tart: January 17, 2025 MABLE Whiteside Referring Provider Active S tart: January 17, 2025 Team Status: Inactive Member Role Status Dates Dr. Willard Henriquez MD Primary Care Provider Active Start: January 20, 2025 End: January 20, 2025 Dr. Willard Henriquez MD Referring Provider Active Start: January 20, 2025 End: January 20, 2025 Dr. Jorje Marques MD Attending Provider Active Sta rt: January 20, 2025 End: January 20, 2025 Director Of Speech Pathology Relationship Specialty Start Date End Date Willard Henriquez MD [address] [place], [place] [phone] PCP - [facility] 12/09/24 Jesica Sierra PA-C [address] [place] [address] [phone] [facility] 08/10/24 Team Status: Inactive Member Role Status Dates Dr. Willard Henriquez MD Primary Care Provider Active Start: January 16, 2025 End: January 16, 2025 MABLE Whiteside Attending Provider Active S tart: January 16, 2025 End: January 16, 2025 MABLE Whiteside Referring Provider Active S tart: January 16, 2025 End: January 16, 2025 Team Status: Inactive Member Role Status Dates Dr. Willard Henriquez MD Primary Care Provider Active Start: January 17, 2025 End: January 17, 2025 MABLE Whiteside Attending Provider Active S tart: January 17, 2025 End: January 17, 2025 MABLE Whiteside Referring Provider Active S tart: January 17, 2025 End: January 17, 2025 Director Of Speech Pathology Relationship Specialty Start Date End Date Willard Henriquez MD [address] [place] [address] [facility] 12/09/24 Jesica Sierra PA-C [address] [place], [place] [id number] [facility] 08/10/24 Team Status: Inactive Member Role Status Dates Dr. Willard Henriquez MD Primary Care Provider Active Start: January 28, 2025 End: January 28, 2025 Robert Cheng OIL REFINERY OPERATOR, OIL REFINERY OPERATOR-C Attending Provider Active S tart: January 28, 2025 End: January 28, 2025 Robert Cheng OIL REFINERY OPERATOR, OIL REFINERY OPERATOR-C Referring Provider Active S tart: January 28, 2025 End: January 28, 2025 Team Status: Active Member Role Status Dates Dr. Willard Henriquez MD Primary Care Provider Active Start: January 28, 2025 Dr. Dong Alegria MD Attending Provider Active Start: January 28, 2025 Director Of Speech Pathology Relationship Specialty Start Date End Date Willard Henriquez MD [address] [place] [phone] PCP - General Family Medicine 12/09/24 Padmini Anguiano APRN.ENROLLMENT REPRESENTATIVE [address] [place] [phone] [facility] 02/03/25 Jesica Sierra PA-C [address] [place] [phone] [facility] 02/03/25 INFORMATION SOURCE (unrecogn ized section and content) DATE CREATED AUTHOR 10/22/2022 [facility] ([place]) DATE CREATED AUTHOR AUTHOR'S ORGANIZ ATION 03/22/2023 [facility] DATE CREATED AUTHOR AUTHOR'S ORGANIZ ATION 01/18/2025 [facility] DATE CREATED AUTHOR AUTHOR'S ORGANIZ ATION 01/31/2025 [facility] DATE CREATED AUTHOR AUTHOR'S ORGANIZ ATION 02/17/2025 [facility] FOR RECORDS PERTAINING TO PATIENTS WHO ARE OR HAVE BEEN ENROLLED IN A CHEMICAL DEPENDENCY/SUBSTANCEABUSE PROGRAM, SOME INFORMATION MAY BE OMITTED. This clinical summary was aggregated from multiple sources. Caution should be exercised in using it in the provision of clinical care. This summary normalizes information from multiple sources, and as a consequence, information in this document may materially change the coding, format and clinical context of patient data. In addition, data may be omitted in some cases. CLINICAL DECISIONS SHOULD BE BASED ON THE PRIMARY CLINICAL RECORDS. [facility] provides no warranty or guarantee of the accuracy or completeness of information in this document.
[2025-02-18] MEDS: Lactated Ringers 1,000 ML 15 ML IV (06:18)
--- NOTE | 2025-02-18 06:30 | EGD_PTH ---
PATIENT: DERRELL GERMAN LOC: EN U#:[id number] AGE/SX: 69/F ROOM: RE02/18/[address]: Dr. Ata Portillo DO : 1955 BED: DIS: 02/18/2025 SPEC #: [id number] RECD: 02/18/25 10:43 STATUS: DALLIN REErnst #: [id number] ABNER: 02/18/25 06:[address]: Ata Portillo DEPT: SURGICAL PATHOLOGY RECD BY: Holger Sanford ENTERED: 02/18/25 12:06 SP TYPE: EGD BIOPSY ALEX DR: Dr. Willard Friedman MD Tissues: A - Duodenum, NOS B - Gastric mucous membrane C - Cecum, NOS D - SPLENIC FLEXURE Procedures: Immunohistochemical Stains Surgery Specimen Level IV HEADER OPERATION: Colonoscopy with biopsy, EGD with biopsy PRE-OP DIAGNOSIS: Iron deficiency anemia, diarrhea, abdominal pain, fecal incontinence TISSUE SUBMITTED: A- Duodenum biopsy, B- Gastric antrum biopsy, C- Cecal cap biopsy, D- Splenic flexure polyp biopsy MICROSCOPIC DIAGNOSIS A. Duodenum, biopsy: Normal villous morphology with no specific pathologic change. B. Gastric antrum, biopsy: Antral mucosa with features of reactive gastropathy. IHC negative for H.pylori organisms. C. Colon, cecal cap, biopsy: Sessile serrated lesion. D. Colon, splenic flexure, polyp, biopsy: Tubular adenoma. MICROSCOPIC DESCRIPTION Slides are reviewed. All matched controls reacted appropriately. These tests were developed and their performance characteristics determined by [facility]. They may not have been cleared or approved by the U.S. Food and Drug Administration. The FDA has determined that such clearance or approval is not necessary. The above immunohistochemical/dualISH markers are reviewed by the Pathologist. GROSS DESCRIPTION A. Received in fixative is one container labeled with the patient's name and designated Duodenum biopsy. The specimen consists of one irregular fragment of light galindo soft tissue that measures 0.5 cm. The specimen is totally submitted in one cassette. B. Received in fixative is one container labeled with the patient's name and designated Gastric antrum biopsy. The specimen consists of one irregular fragment of light galindo soft tissue that measures 0.3 cm. The specimen is totally submitted in one cassette. C. Received in fixative is one container labeled with the patient's name and designated Cecal cap biopsy. The specimen consists of two irregular fragments of light galindo soft tissue that in aggregate measure 0.4 and 0.6 cm. The specimen is totally submitted in one cassette. D. Received in fixative is one container labeled with the patient's name and designated Splenic flexure polyp biopsy. The specimen consists of one irregular fragment of light galindo soft tissue that measures 0.6 cm. The specimen is totally submitted in one cassette. AR 02/18/2025 CPT:09118x3,82687
--- NOTE | 2025-02-18 06:32 | PCM.PRE.AN2 ---
ASA Classification* ASA Classification ASA Classification: 4 (BMI > 50, CKD3, Hx DVT, HTN, GERD, DM, Afib hx, NATALIE, SEVERE Pulm HTN -- do not allow patient to become hypoxic. Will recommend ETT for this case given her size and pulm HTN, cannot afford her to go apneic. ) Assessment & Plan Anesthesia* Anesthesia Assessment Anesthesia Assessment: Discussed sedation and/or anesthesia options, risks, benefits, and alternatives with patient/parents/legal guardian/POA. Questions invited. The patient/parents/legal guardian/POA seems to understand and agrees to proceed with anesthesia plan. Reviewed the physical assessment, medical history, allergy history and patient home medications list prior to surgery/procedure/anesthetic and documented any changes. Performed airway and anesthesia risk assessments. Anesthesia Type Anesthesia Type: General (ETT to help prevent any hypoxia during case) History Source History Obtained from:: Patient and Chart Anesthesia Focused Assessment* Temperature: 97.8 F Pulse Rate: 84 Blood Pressure: 134/48 Respiratory Rate: 18 Pulse Ox: 97 Oxygen Delivery Method: Room Air Oxygen Flow Rate (L/min): 2 (at night) Airway Assessment Mouth opens: 2 cm Mallampati Score: IV Teeth Condition: Intact Neck Range of motion (ROM): Full ROM Labs Anesthesia Preop lab: CBC WBC 9.3 K/mm3 (4.4-11.0) 01/01/25 12:01/01/25 RBC 4.03 M/mm3 (4.2-5.4) L 01/01/25 12:01/01/25 Hgb 10.3 g/dL (12.0-15.0) L 01/01/25 12:01/01/25 Hct 35.0 % (37-47) L 01/01/25 12:01/01/25 Plt Count 222 K/mm3 (150-450) 01/01/25 12:41 01/01/25 CHEMISTRY Potassium 3.1 mmol/L (3.3-5.1) L 01/01/25 12:41 01/01/25 Sodium 141 mmol/L (133-145) 01/01/25 12:41 01/01/25 Magnesium 1.7 mg/dL (1.5-2.2) 12/17/24 18:55 12/17/24 BUN 7 mg/dL (4-19) 01/01/25 12:41 01/01/25 Creatinine 1.13 mg/dL (0.70-1.20) 01/01/25 12:41 01/01/25 Glucose 202 mg/dL (70-99) H 01/01/25 12:41 01/01/25 POC Glucose 91 mg/dL (74-106) 02/12/24 11:18 02/12/24 TSH 0.75 uIU/mL (0.358-3.74) 10/10/23 14:58 10/10/23 COAG PT 16.8 SECONDS (11.7-14.9) H 12/17/24 18:55 12/17/24 Pre-Assessment Diagnosis/Proposed Procedure Planned Operative Procedure(s): COLONOSCOPY/EGD Anesthesia History Anesthesia History - account financial manager: Anesthesia History - account financial manager Hx Hospitalization Yes: BACK SURGERY FEBRUARY 2023 02/17/25 09:37 Any Problems With Anesthesia No 02/17/25 09:37 Cholinesterase deficiency No 02/17/25 09:37 You/Your Family Experience No 02/17/25 09:37 fever (hyperthermia) with Relationship Recent Exposure to Contagious No 02/18/25 06:21 Disease Does patient have nerve No 02/17/25 09:37 stimulator Patient instructed to have device shut off --Does patient have Pacemaker No 02/18/25 06:21 or ICD? When Was Last Pacemaker Check QUESTION #4 FULL TEXT: You/Your Family Experience fever (hyperthermia) with Anesthesia Last Oral Intake Last Oral intake: Last Oral Intake NPO since 03:30 02/18/25 06:21 Meds taken in AM with sips of Yes 02/18/25 06:21 water? Meds patient instructed to gabapentin, isosorbide, 02/18/25 06:21 take am of surgery prednisone, levothyroxine, metoprolol PONV PONV - account financial manager: PONV - account financial manager Female Yes 02/17/25 09:37 HX of Motion Sickness No 02/17/25 09:37 HX of N/V After Surgery No 02/17/25 09:37 Non-Smoker Yes 02/17/25 09:37 Duration of Surgery greater No 02/17/25 09:37 than 60 minutes Number of Risk Factors 2 02/17/25 09:37 PONV Score Moderate Risk 02/17/25 09:37 Height & Weight Height & Weight: Anesthesia: Height & Weight Height 5 ft 1 in 02/18/25 06:21 Weight: 136 kg 02/18/25 06:21 Body Mass Index (BMI) 56.6 02/18/25 06:21 Respiratory Assessment Respiratory Assessment - account financial manager: Respiratory Tract Infection Hx - account financial manager Hx Respiratory Tract Infection No 02/17/25 09:37 STOP Sleep Apnea STOP Sleep Apnea - account financial manager: STOP Sleep Apnea - account financial manager Hx Hypertension Yes: CONTROLLED WITH MEDS 02/17/25 09:37 Hx Sleep Apnea Yes 02/17/25 09:37 CPAP No 02/17/25 09:37 BIPAP Yes 02/17/25 09:37 Do you snore loudly (louder than talking or can be heard Do you often feel tired/ fatigued/ sleepy during daytime? Has anyone observed you stop breathing during sleep? STOP Results Positive 02/17/25 09:37 QUESTION #5 FULL TEXT : Do you snore loudly (louder than talking or can be heard through closed doors)? Tobacco Use History Tobacco Use History - account financial manager: Tobacco Use History - account financial manager Tobacco Use Smoking Status Never smoker 02/17/25 09:37 Hx Tobacco Use No 02/17/25 09:37 Years Smoking Packs Smoked per Day Smoking Cessation Date was within the last 15 years Hx Smoking Cessation Date Hx Smoking Cessation Counseling Hematologic Medial History Hematologic Hx - account financial manager: Hematologic Medical Hx - clinical documentation improvement specialist Hx of Blood Transfusion No 02/17/25 09:37 Hx of Transfusion in last 3 No 02/17/25 09:37 Months Date of Last Transfusion (if within last 3 months) Ever experience any problems No 02/17/25 09:37 with transfusion(s)? Specify any problems Hx of Preganancy in last 3 No 02/17/25 09:37 Months Nurse Filling Out Transfusion VCHRISTIN 02/17/25 09:37 & Questions: Date: 02/17/25 02/17/25 09:37 Time: 09:41 02/17/25 09:37 Patient unable to answer at this time (ie. confused, unrespo /Reproduction History /Reproductive History - account financial manager: /Reproductive Hx- account financial manager Hx Now No 02/17/25 09:37 Gestational Age (in weeks): EDC: Hx Hx Para Hx Section SAB No 02/17/25 09:37 Active Medications Active Medications: Current Medications Generic Name Dose Route Start Last Admin Trade Name Freq PRN Reason Stop Dose Admin Lactated Ringer's 1,000 mls @ 15 mls/hr 02/18/25 05:45 02/18/25 06:18 IV 15 mls/hr .Q48H JENNIFER Administration PFSH Medical History (Updated 02/17/25 @ 09:37 by Felecia Rey) History of Holter monitoring Iron deficiency anemia Pulmonary embolism DVT (deep venous thrombosis) Giant cell arteritis Wears glasses Post-menopausal Psoriasis Walker as ambulation aid Fatty liver History of migraine Seasonal allergies PONV (postoperative nausea and vomiting) Back pain Dietary restriction History of diverticulitis History of GI bleed Gastric reflux Non-smoker BiPAP (biphasic positive airway pressure) dependence Shortness of breath on exertion History of edema History of CHF (congestive heart failure) History of atrial fibrillation History of echocardiogram History of stress test Cardiology follow-up encounter Edema Chest pain, unspecified Diabetes Vitamin D deficiency Osteoporosis Acute on chronic diastolic (congestive) heart failure History of left heart catheterization (LHC) (~03/03/20) Hypothyroidism (acquired) Mixed hyperlipidemia Benign essential hypertension Cataract associated with type 2 diabetes mellitus 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 2 diabetes mellitus NATALIE (obstructive sleep apnea) Abnormal stress test Chest pain Chapman's palsy Thyroid disease Heart murmur Hives Recurrent UTI Bone fracture Back problem Arthritis Kidney stones HTN (hypertension) Anemia Asthma Obesity Home Medications ?Medication ?Instructions ?Recorded ?Last Taken ?Type epinephrine 0.3 mg/0.3 mL 0.3 mg IM ONCE 10/30/17 Unknown History injection, auto-injector (EpiPen) rosuvastatin 20 mg tablet 20 mg PO QDAY Cholesterol 11/22/17 02/11/24 History gabapentin 100 mg capsule 100 - 300 mg PO TID 05/27/20 02/18/25 History pen needle, diabetic 32 gauge x #100 ea 10/01/20 Unknown Rx (BD Ultra-Fine Eva Pen Needle) cholecalciferol (vitamin D3) 125 125 mcg PO DAILY 12/02/20 02/11/24 History mcg (5,000 unit) tablet spironolactone 25 mg tablet 25 mg PO BID water pill 04/26/22 02/11/24 History metoprolol tartrate 25 mg tablet 25 mg PO DAILY 05/23/22 02/18/25 History clobetasol 0.05 % topical cream 1 applic topical DAILY PRN psorasis 04/06/23 02/11/24 History montelukast 10 mg tablet 10 mg PO QHS 04/06/23 02/11/24 History (Hattie) nitroglycerin 0.4 mg sublingual 0.4 mg sublingual Q5M PRN .CHEST 04/26/23 Unknown Rx tablet PAIN #25 tabs blood-glucose sensor (Dexcom G7 #3 ea 06/08/23 Unknown Rx Sensor device) blood-glucose sensor (Dexcom G7 #3 ea 06/08/23 Unknown Rx Sensor device) blood-glucose,sales promotion manager,cont #1 ea 06/19/23 Unknown Rx (Dexcom G7 Generator Mechanic) denosumab 60 mg/mL subcutaneous 60 mg subcut [id number] #1 mL 07/12/23 Unknown Rx syringe (Prolia) clopidogrel 75 mg tablet 75 mg PO DAILY #90 tabs 01/22/24 02/13/25 Rx furosemide 20 mg tablet 20 mg PO .COMPLEX #180 tabs 01/22/24 02/11/24 Rx furosemide 40 mg tablet 40 mg PO .COMPLEX #180 tabs 01/22/24 02/11/24 Rx omeprazole 20 mg capsule,delayed 20 mg PO QDAY 02/26/24 Unknown History release melatonin 10 mg capsule 10 mg PO HS PRN sleep 10/23/24 Unknown History tocilizumab 162 mg/0.9 mL 162 mg subcut QWEEK ARTHRITIS 10/23/24 01/27/25 History subcutaneous pen injector (Actemra ACTPen) dapagliflozin propanediol 10 mg 10 mg PO DAILY #90 tabs 11/11/24 02/15/25 Rx tablet (Farxiga) famotidine 20 mg tablet 20 mg PO BID 11/27/24 Unknown History nystatin 100,000 unit/gram topical 1 applic topical TID PRN yeast 11/29/24 Unknown History powder dematitis prednisone 5 mg tablet 5 mg PO QDAY 01/01/25 02/18/25 History potassium chloride 10 mEq 30 meq PO BID 01/05/25 Unknown History tablet,extended release apixaban 5 mg (74 tabs) tablets in 5 mg PO BID 01/09/25 02/13/25 History a dose pack (Eliquis DVT-PE Treat 30D Start) mecobalamin (vitamin B12) 500 mcg 500 mcg PO DAILY 01/09/25 Unknown History chewable tablet Mounjaro 10 mg/0.5 mL subcutaneous 10 mg (0.5 mL) subcut QWEEK #2 mL 01/20/25 02/08/25 Rx pen injector (tirzepatide) insulin regular hum U-500 conc 500 300 unit (0.6 mL) subcut TID #54 mL 01/20/25 Unknown Rx unit/mL(3 mL) subcut pen (Humulin R U-500 (Conc) Insulin Kwikpen) isosorbide mononitrate 60 mg 60 mg PO DAILY #90 tabs 01/22/25 02/18/25 Rx tablet,extended release 24 hr levothyroxine 175 mcg tablet 175 mcg PO [id number] 02/17/25 02/18/25 History Allergy/AdvReac Type Severity Reaction Status Date / Time adhesive Allergy Other Verified 02/18/25 06:19 Fish Containing Products Allergy Hives Verified 02/18/25 06:19 fluconazole (From Diflucan) Allergy Hives Verified 02/18/25 06:19 iodine Allergy Unknown Verified 02/18/25 06:19 orange Allergy Hives Verified 02/18/25 06:19 Penicillins Allergy Unknown Verified 02/18/25 06:19 pioglitazone (From Actos) Allergy Hives Verified 02/18/25 06:19 povidone-iodine (From Allergy Unknown Verified 02/18/25 06:19 Betadine) soap (From Betadine) Allergy Unknown Verified 02/18/25 06:19 Sulfa (Sulfonamide Allergy Unknown Verified 02/18/25 06:19 Antibiotics) sulfamethoxazole (From Allergy Unknown Verified 02/18/25 06:19 Bactrim) tetanus and diphtheria Allergy Hives Verified 02/18/25 06:19 toxoids trimethoprim (From Bactrim) Allergy Unknown Verified 02/18/25 06:19 amlodipine AdvReac Severe Swelling Verified 02/18/25 06:19 Family History Mother Diabetes Heart disease Hypertension High cholesterol Kidney disease Cancer Father Diabetes Hypertension High cholesterol Cancer Sister Cancer Surgical History (Updated 02/17/25 @ 09:37 by Felecia Rey) History of temporal artery biopsy Presence of stent in coronary artery (~03/13/19) History of surgery History of back surgery Presence of coronary angioplasty implant and graft (~03/13/19) Cataract extraction status, left eye Cataract extraction status, right eye History of left heart catheterization (LHC) H/O colonoscopy H/O right heart catheterization H/O thyroidectomy H/O sinus surgery History of tonsillectomy History of total abdominal hysterectomy H/O arthroscopic knee surgery Hx of cholecystectomy Social History Smoking Status: Never smoker second hand exposure: No alcohol intake: never substance use type: does not use caffeine: Yes Type: carbonated beverages Number of servings: 1 and tea Number of servings: 1 Review of Systems (Anesthesia) ROS Narrative System reviewed and no additional complaints, except as documented. Physical Exam Const alert and oriented x3 Nutritional Appearance: morbidly obese Resp normal respiratory effort, normal air movement and clear to auscultation bilaterally Cardio regular rate, regular rhythm, no murmurs and diaphoretic
--- NOTE | 2025-02-18 06:47 | PCM.HP.STD ---
HPI - General General Date of Admission: 02/18/25 Date of Service: 02/18/25 Chief Complaint: Anemia HPI Narrative DERRELL GERMAN, is a 69 F who presents to the office today for establishment with I regarding concerns of iron deficiency anemia from PCP and diarrhea with urgency incontinence by pt. She was recently diagnosed with bilateral PEs on 11.29.24 and placed on Eliquis. 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 PCP provided iron studies: iron is low normal at 49, vit B12 271, ferritin 26.6. Folate normal at 6. TiBC 404, transferrin saturation 12.1%, hgb 11.3, plt 214, MCV 84.8, PT 16.8. She reports physical limitations on distance due to continued recovery from PEs. BLEs are wrapped in compression boots and she uses a rollator. She complains of bowel urgency through the day, denies having BMs wake her. She c/o diffuse lower abdominal cramping pain prior to BMs. She is not physically able to make it to the toilet in time and will experience partial incontinence. She denies noting rose bleeding, but states the stools are darker than normal. She just started PO iron and Vitamin B12 supplementation this last Monday. She is taking omeprazole 20mg daily to control her heartburn, she denies difficulty chewing and swallowing, cough, throat clearing, sinus drainage, reflux, nausea, emesis, constipation, hematochezia. She has not traveled out of the country recently, changed her water source, or been around ill persons. [facility] Medical History (Updated 02/18/25 @ 06:[address] Berumen Friend, DO) History of Holter monitoring Iron deficiency anemia Pulmonary embolism DVT (deep venous thrombosis) Giant cell arteritis Wears glasses Post-menopausal Psoriasis Walker as ambulation aid Fatty liver History of migraine Seasonal allergies PONV (postoperative nausea and vomiting) Back pain Dietary restriction History of diverticulitis History of GI bleed Gastric reflux Non-smoker BiPAP (biphasic positive airway pressure) dependence Shortness of breath on exertion History of edema History of CHF (congestive heart failure) History of atrial fibrillation History of echocardiogram History of stress test Cardiology follow-up encounter Edema Chest pain, unspecified Diabetes Vitamin D deficiency Osteoporosis Acute on chronic diastolic (congestive) heart failure History of left heart catheterization (LHC) (~03/03/20) Hypothyroidism (acquired) Mixed hyperlipidemia Benign essential hypertension Cataract associated with type 2 diabetes mellitus 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 2 diabetes mellitus NATALIE (obstructive sleep apnea) Abnormal stress test Chest pain Chapman's palsy Thyroid disease Heart murmur Hives Recurrent UTI Bone fracture Back problem Arthritis Kidney stones HTN (hypertension) Anemia Asthma Obesity Home Medications ?Medication ?Instructions ?Recorded ?Last Taken ?Type epinephrine 0.3 mg/0.3 mL 0.3 mg IM ONCE 10/30/17 Unknown History injection, auto-injector (EpiPen) rosuvastatin 20 mg tablet 20 mg PO QDAY Cholesterol 11/22/17 02/11/24 History gabapentin 100 mg capsule 100 - 300 mg PO TID 05/27/20 02/18/25 History pen needle, diabetic 32 gauge x #100 ea 10/01/20 Unknown Rx (BD Ultra-Fine Eva Pen Needle) cholecalciferol (vitamin D3) 125 125 mcg PO DAILY 12/02/20 02/11/24 History mcg (5,000 unit) tablet spironolactone 25 mg tablet 25 mg PO BID water pill 04/26/22 02/11/24 History metoprolol tartrate 25 mg tablet 25 mg PO DAILY 05/23/22 02/18/25 History clobetasol 0.05 % topical cream 1 applic topical DAILY PRN psorasis 04/06/23 02/11/24 History montelukast 10 mg tablet 10 mg PO QHS 04/06/23 02/11/24 History (Singulair) nitroglycerin 0.4 mg sublingual 0.4 mg sublingual Q5M PRN .CHEST 04/26/23 Unknown Rx tablet PAIN #25 tabs blood-glucose sensor (Dexcom G7 #3 ea 06/08/23 Unknown Rx Sensor device) blood-glucose sensor (Dexcom G7 #3 ea 06/08/23 Unknown Rx Sensor device) blood-glucose,risk management specialist,cont #1 ea 06/19/23 Unknown Rx (Dexcom G7 Continuous Improvement Engineer) denosumab 60 mg/mL subcutaneous 60 mg subcut [id number] #1 mL 07/12/23 Unknown Rx syringe (Prolia) clopidogrel 75 mg tablet 75 mg PO DAILY #90 tabs 01/22/24 02/13/25 Rx furosemide 20 mg tablet 20 mg PO .COMPLEX #180 tabs 01/22/24 02/11/24 Rx furosemide 40 mg tablet 40 mg PO .COMPLEX #180 tabs 01/22/24 02/11/24 Rx omeprazole 20 mg capsule,delayed 20 mg PO QDAY 02/26/24 Unknown History release melatonin 10 mg capsule 10 mg PO HS PRN sleep 10/23/24 Unknown History tocilizumab 162 mg/0.9 mL 162 mg subcut QWEEK ARTHRITIS 10/23/24 01/27/25 History subcutaneous pen injector (Actemra ACTPen) dapagliflozin propanediol 10 mg 10 mg PO DAILY #90 tabs 11/11/24 02/15/25 Rx tablet (Farxiga) famotidine 20 mg tablet 20 mg PO BID 11/27/24 Unknown History nystatin 100,000 unit/gram topical 1 applic topical TID PRN yeast 11/29/24 Unknown History powder dematitis prednisone 5 mg tablet 5 mg PO QDAY 01/01/25 02/18/25 History potassium chloride 10 mEq 30 meq PO BID 01/05/25 Unknown History tablet,extended release apixaban 5 mg (74 tabs) tablets in 5 mg PO BID 01/09/25 02/13/25 History a dose pack (ViaBill DVT-PE Treat 30D Start) mecobalamin (vitamin B12) 500 mcg 500 mcg PO DAILY 01/09/25 Unknown History chewable tablet Mounjaro 10 mg/0.5 mL subcutaneous 10 mg (0.5 mL) subcut QWEEK #2 mL 01/20/25 02/08/25 Rx pen injector (tirzepatide) insulin regular hum U-500 conc 500 300 unit (0.6 mL) subcut TID #54 mL 01/20/25 Unknown Rx unit/mL(3 mL) subcut pen (Humulin R U-500 (Conc) Insulin Kwikpen) isosorbide mononitrate 60 mg 60 mg PO DAILY #90 tabs 01/22/25 02/18/25 Rx tablet,extended release 24 hr levothyroxine 175 mcg tablet 175 mcg PO MOTUWETHFRSA 02/17/25 02/18/25 History Allergy/AdvReac Type Severity Reaction Status Date / Time adhesive Allergy Other Verified 02/18/25 06:19 Fish Containing Products Allergy Hives Verified 02/18/25 06:19 fluconazole (From Diflucan) Allergy Hives Verified 02/18/25 06:19 iodine Allergy Unknown Verified 02/18/25 06:19 orange Allergy Hives Verified 02/18/25 06:19 Penicillins Allergy Unknown Verified 02/18/25 06:19 pioglitazone (From Actos) Allergy Hives Verified 02/18/25 06:19 povidone-iodine (From Allergy Unknown Verified 02/18/25 06:19 Betadine) soap (From Betadine) Allergy Unknown Verified 02/18/25 06:19 Sulfa (Sulfonamide Allergy Unknown Verified 02/18/25 06:19 Antibiotics) sulfamethoxazole (From Allergy Unknown Verified 02/18/25 06:19 Bactrim) tetanus and diphtheria Allergy Hives Verified 02/18/25 06:19 toxoids trimethoprim (From Bactrim) Allergy Unknown Verified 02/18/25 06:19 amlodipine AdvReac Severe Swelling Verified 02/18/25 06:19 Family History Mother Diabetes Heart disease Hypertension High cholesterol Kidney disease Cancer Father Diabetes Hypertension High cholesterol Cancer Sister Cancer Surgical History History of temporal artery biopsy Presence of stent in coronary artery (~03/13/19) History of surgery History of back surgery Presence of coronary angioplasty implant and graft (~03/13/19) Cataract extraction status, left eye Cataract extraction status, right eye History of left heart catheterization (LHC) H/O colonoscopy H/O right heart catheterization H/O thyroidectomy H/O sinus surgery History of tonsillectomy History of total abdominal hysterectomy H/O arthroscopic knee surgery Hx of cholecystectomy Social History Smoking Status: Never smoker second hand exposure: No alcohol intake: never substance use type: does not use caffeine: Yes Type: carbonated beverages Number of servings: 1 and tea Number of servings: 1 ROS Constitutional Constitutional: Denies fatigue, fever(s), poor appetite, weight gain or weight loss Gastrointestinal Gastrointestinal: Denies belching, bloating, change in bowel habits, change in stool character, chewing difficulty, coffee ground emesis, constipation, cramping, diarrhea, dyspepsia, dysphagia, early satiety, excessive flatus, fecal incontinence, heartburn, hematemesis, hematochezia, hemorrhoids, loose stools, melena, nausea, odynophagia, rectal bleeding, tenesmus, vomiting or weight changes Vital Signs Vital Signs Vital Signs: 02/18/25 06:21 02/18/25 06:21 02/18/25 06:35 Temperature 97.8 F 97.8 F Temperature Source Temporal Pulse Rate 84 84 Respiratory Rate 18 18 Respiratory Pattern Normal Blood Pressure 134/48 H 134/48 H Blood Pressure Mean 76 Blood Pressure Source Monitor Blood Pressure Position Sitting Blood Pressure Location Right Forearm Pulse Ox 97 97 Oxygen Delivery Method Room Air Room Air Oxygen Flow Rate (L/min) 2 Weight Weight: 299 lb 13.259 oz Body Mass Index (BMI) 56.6 Physical Exam Const alert, oriented x3, no apparent distress and healthy appearing General Appearance: cooperative GI normal to inspection, nondistended, normoactive bowel sounds, soft to palpation, non-tender and non-distended Percussion: normal to percussion Rectal Exam: deferred Assessment & Plan Assessment/Plan (1) Fecal incontinence: QUALIFIERS: Fecal incontinence type: incomplete defecation Qualified Code(s): R15.0 - Incomplete defecation (2) Abdominal pain: QUALIFIERS: Abdominal location: generalized Qualified Code(s): R10.84 - Generalized abdominal pain (3) Anemia: PLAN: Assessment and Plan Assessment and Plan (1) Iron deficiency anemia: Status: Acute Qualifiers: Iron deficiency anemia type: unspecified iron deficiency Qualified Code(s): D50.9 - Iron deficiency anemia, unspecified (2) Diarrhea: Status: Acute Qualifiers: Diarrhea type: unspecified type Qualified Code(s): R19.7 - Diarrhea, unspecified (3) Abdominal pain: Status: Acute Qualifiers: Abdominal location: generalized Qualified Code(s): R10.84 - Generalized abdominal pain (4) Fecal incontinence: Status: Acute Qualifiers: Fecal incontinence type: incomplete defecation Qualified Code(s): R15.0 - Incomplete defecation Orders: Orders Stool Occult Blood iFOB Today D50.9 - Iron deficiency anemia, unspecified Calprotectin, Stool Today D50.9 - Iron deficiency anemia, unspecified, R10.9 - Unspecified abdominal pain, R15.9 - Full incontinence of feces, R19.7 - Diarrhea, unspecified Pancreatic Elastase, Fecal Today D50.9 - Iron deficiency anemia, unspecified, R10.9 - Unspecified abdominal pain, R15.9 - Full incontinence of feces, R19.7 - Diarrhea, unspecified Immunoglobulins G/A/M/E Today D50.9 - Iron deficiency anemia, unspecified, R10.9 - Unspecified abdominal pain, R15.9 - Full incontinence of feces, R19.7 - Diarrhea, unspecified ALAN Comprehensive Panel Today D50.9 - Iron deficiency anemia, unspecified, R10.9 - Unspecified abdominal pain, R15.9 - Full incontinence of feces, R19.7 - Diarrhea, unspecified ANCA Today D50.9 - Iron deficiency anemia, unspecified, R10.9 - Unspecified abdominal pain, R15.9 - Full incontinence of feces, R19.7 - Diarrhea, unspecified Celiac Disease Profile Today D50.9 - Iron deficiency anemia, unspecified, R10.9 - Unspecified abdominal pain, R15.9 - Full incontinence of feces, R19.7 - Diarrhea, unspecified Liver Profile Today D50.9 - Iron deficiency anemia, unspecified, R10.9 - Unspecified abdominal pain, R15.9 - Full incontinence of feces, R19.7 - Diarrhea, unspecified Plan DERRELL GERMAN, is a 69 F who presents to the office today for establishment with [facility] regarding concerns of iron deficiency anemia from PCP and diarrhea with urgency incontinence by pt. She was recently diagnosed with bilateral PEs on 11.29.24 and placed on Eliquis. 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 Discussed plan with her and her . stool for OB, calprotectin, pancreatic elastase blood for IBD, celiac, and liver panel review case w/ regarding iron supplementation with GCA and risk for increased inflammation communicate via portal for results
[2025-02-18 06:54] LABS: Bedside Glucose 278 mg/dL (74-106)
--- NOTE | 2025-02-18 07:40 | OP.EGD_ITS ---
Patient Name: Hermelinda Chong Procedure Date: 02/18/2025 6:26 AM Date of : 1955 Age: 69 Procedure: Upper GI endoscopy Indications: Epigastric abdominal pain, Iron deficiency anemia Providers: Ata Portillo DO Referring MD: Willard Friedman MD Medicines: Monitored Anesthesia Care Patient Profile: This is a 69 year old female. Refer to note in patient chart for documentation of history and physical. Patient has symptoms. Complications: No immediate complications. Procedure: Pre-Anesthesia Assessment: - Prior to the procedure, a History and Physical was performed, and patient medications and allergies were reviewed. The patient is competent. The risks and benefits of the procedure and the sedation options and risks were discussed with the patient. All questions were answered and informed consent was obtained. Patient identification and proposed procedure were verified by the physician in the pre-procedure area. Mental Status Examination: alert and oriented. Airway Examination: normal oropharyngeal airway and neck mobility. Respiratory Examination: clear to auscultation. CV Examination: normal. Prophylactic Antibiotics: The patient does not require prophylactic antibiotics. Prior Anticoagulants: The patient has taken no anticoagulant or antiplatelet agents. ASA Grade Assessment: II - A patient with mild systemic disease. After reviewing the risks and benefits, the patient was deemed in satisfactory condition to undergo the procedure. The anesthesia plan was to use monitored anesthesia care (MAC). Immediately prior to administration of medications, the patient was re-assessed for adequacy to receive sedatives. The heart rate, respiratory rate, oxygen saturations, blood pressure, adequacy of pulmonary ventilation, and response to care were monitored throughout the procedure. The physical status of the patient was re-assessed after the procedure. After obtaining informed consent, the endoscope was passed under direct vision. Throughout the procedure, the patient's blood pressure, pulse, and oxygen saturations were monitored continuously. The pediatric colonoscope was introduced through the mouth, and advanced to the fourth part of the duodenum. Small bowel enteroscopy was deemed necessary. The upper GI endoscopy was accomplished without difficulty. The patient tolerated the procedure well. Scope In: 7:08:27 AM Scope Out: 7:11:28 AM Total Procedure Duration Time 0 hours 3 minutes 1 second Findings: The examined esophagus was normal. Patchy mildly erythematous mucosa without bleeding was found in the gastric body. Biopsies were taken with a cold forceps for histology. Verification of patient identification for the specimen was done. Estimated blood loss was minimal. Biopsies were taken with a cold forceps for Helicobacter pylori testing. Verification of patient identification for the specimen was done. Estimated blood loss was minimal. Patchy mildly erythematous mucosa without active bleeding and with no stigmata of bleeding was found in the entire duodenum. Biopsies were taken with a cold forceps for histology. Verification of patient identification for the specimen was done. Estimated blood loss was minimal. Impression: - Normal esophagus. - Erythematous mucosa in the gastric body. Biopsied. - Erythematous duodenopathy. Biopsied. Recommendation: - Discharge patient to home. - Resume previous diet. - Continue present medications. - Await pathology results. Procedure Code(s): --- Professional --- 13747, Small intestinal endoscopy, enteroscopy beyond second portion of duodenum, not including ileum; with biopsy, single or multiple CPT copyright 2021 [employer]. All rights reserved. The codes documented in this report are preliminary and upon sleeping car conductor review may be revised to meet current compliance requirements. Ata Portillo DO 02/18/2025 7:38:54 AM This report has been signed electronically. Number of Addenda: 0 Note Initiated On: 02/18/2025 6:26 AM
--- NOTE | 2025-02-18 07:40 | OP.CCLET_ITS ---
02/18/2025 Willard Friedman MD Re : Upper GI endoscopy procedure for Hermelinda Chong Dear Dr. Friedman This procedure was performed on Tuesday, February 18, 2025. My impressions and recommendations are as follows: Impressions : - Normal esophagus. - Erythematous mucosa in the gastric body. Biopsied. - Erythematous duodenopathy. Biopsied. Recommendations : - Discharge patient to home. - Resume previous diet. - Continue present medications. - Await pathology results. My findings are described in the full procedure note, which is enclosed. If I can be of further assistance, please feel free to contact me at . Sincerely, Ata Portillo DO 02/18/2025 7:38:54 AM This report has been signed electronically.
--- NOTE | 2025-02-18 07:42 | OP.COLON_ITS ---
Patient Name: Hermelinda Chong Procedure Date: 02/18/2025 7:11 AM Date of : 1955 Age: 69 Procedure: Colonoscopy Indications: Last colonoscopy: May 2022, Iron deficiency anemia Providers: Ata Portillo DO Referring MD: Willard Friedman MD Medicines: Monitored Anesthesia Care Patient Profile: This is a 69 year old female. Refer to note in patient chart for documentation of history and physical. Patient has symptoms. Last Colonoscopy: 3 years ago. Complications: No immediate complications. Procedure: Pre-Anesthesia Assessment: - Prior to the procedure, a History and Physical was performed, and patient medications and allergies were reviewed. The patient is competent. The risks and benefits of the procedure and the sedation options and risks were discussed with the patient. All questions were answered and informed consent was obtained. Patient identification and proposed procedure were verified by the physician in the pre-procedure area. Mental Status Examination: alert and oriented. Airway Examination: normal oropharyngeal airway and neck mobility. Respiratory Examination: clear to auscultation. CV Examination: normal. Prophylactic Antibiotics: The patient does not require prophylactic antibiotics. Prior Anticoagulants: The patient has taken no anticoagulant or antiplatelet agents. ASA Grade Assessment: II - A patient with mild systemic disease. After reviewing the risks and benefits, the patient was deemed in satisfactory condition to undergo the procedure. The anesthesia plan was to use monitored anesthesia care (MAC). Immediately prior to administration of medications, the patient was re-assessed for adequacy to receive sedatives. The heart rate, respiratory rate, oxygen saturations, blood pressure, adequacy of pulmonary ventilation, and response to care were monitored throughout the procedure. The physical status of the patient was re-assessed after the procedure. After I obtained informed consent, the scope was passed under direct vision. Throughout the procedure, the patient's blood pressure, pulse, and oxygen saturations were monitored continuously. The pediatric colonoscope was introduced through the anus and advanced to the terminal ileum. The colonoscopy was performed without difficulty. The patient tolerated the procedure well. Scope In: 7:13:55 AM Scope Withdrawal Time 0 hours 17 minutes 34 seconds Scope Out: 7:35:16 AM Total Procedure Duration Time 0 hours 21 minutes 21 seconds Findings: The perianal and digital rectal examinations were normal. A 5 mm polyp was found in the splenic flexure. The polyp was sessile. The polyp was removed with a jumbo cold forceps. Resection and retrieval were complete. Verification of patient identification for the specimen was done. Estimated blood loss was minimal. An area of mildly congested mucosa was found in the cecum. Biopsies were taken with a cold forceps for histology. Verification of patient identification for the specimen was done. Estimated blood loss was minimal. Impression: - One 5 mm polyp at the splenic flexure, removed with a jumbo cold forceps. Resected and retrieved. - Congested mucosa in the cecum. Biopsied. Recommendation: - Discharge patient to home. - Resume previous diet. - Continue present medications. - Await pathology results. - Repeat colonoscopy in 3 years for surveillance. Procedure Code(s): --- Professional --- 67033, Colonoscopy, flexible; with biopsy, single or multiple CPT copyright 2021 [employer]. All rights reserved. The codes documented in this report are preliminary and upon stand up forklift operator review may be revised to meet current compliance requirements. Ata Portillo DO 02/18/2025 7:42:08 AM This report has been signed electronically. Number of Addenda: 0 Note Initiated On: 02/18/2025 7:11 AM
--- NOTE | 2025-02-18 07:42 | OP.CCLET_ITS ---
02/18/2025 Willard Friedman MD Re : Colonoscopy procedure for Hermelinda Chong Dear Dr. Friedman This procedure was performed on Tuesday, February 18, 2025. My impressions and recommendations are as follows: Impressions : - One 5 mm polyp at the splenic flexure, removed with a jumbo cold forceps. Resected and retrieved. - Congested mucosa in the cecum. Biopsied. Recommendations : - Discharge patient to home. - Resume previous diet. - Continue present medications. - Await pathology results. - Repeat colonoscopy in 3 years for surveillance. My findings are described in the full procedure note, which is enclosed. If I can be of further assistance, please feel free to contact me at . Sincerely, Ata Portillo, 02/18/2025 7:42:08 AM This report has been signed electronically.
--- NOTE | 2025-02-18 07:56 | PCM.POST.ANE ---
Anesthesia: Postop Eval I Current Vital Signs Temperature: 97.6 F Pulse Rate: 94 Blood Pressure: 151/79 Respiratory Rate: 18 Pulse Ox: 96 Oxygen Delivery Method: Room Air Assessment Airway patent: Yes Spontaneous unlabored respirations: Yes Mental status: Awake and Calm nausea: No Vomiting: No Anesthesia Complication: No Fluid Hydration Crystalloid volume administer (ml): 600 Total IV fluid infused: 600 Progress Note Anesthesia document: Postop Eval 1 completed: Yes
[2025-02-18 08:28] LABS: Bedside Glucose 303 mg/dL (74-106)
[2025-02-18] MEDS: Insulin U-500 UNITS/ML PEN 300 UNITS SC (09:05)
--- NOTE | 2025-02-18 09:49 | POSTOPAN2_ITS ---
Anesthesia Postop Eval I Sum Postop Eval Completion status Anesthesia document: Postop Eval 1 completed: Yes Anesthesia Postop Eval I Summary Anesthesia Postop Eval I Summary: Anesthesia Postop Eval I: Assessment Summary Airway patent Yes 02/18/25 07:57 [email or web address] Spontaneous unlabored Yes 02/18/25 07:57 [email or web address] respirations Mental status Awake,Calm 02/18/25 07:57 [email or web address] nausea No 02/18/25 07:57 [email or web address] Vomiting No 02/18/25 07:57 [email or web address] Anesthesia Postop Eval I: Fluid Summary Crystalloid volume administer 600 02/18/25 07:57 [email or web address] (ml) Colloids volume administered ( ml) Blood Product volume administered (ml) Total IV fluid infused 600 02/18/25 07:57 [email or web address] Anesthesia Postop Eval I: Summary Notes Anesthesia Complication No 02/18/25 07:57 [email or web address] Anesthesia Complication Comment: Post-operative progress note Anesthesia: Postop Eval II Evaluation Mental status: Awake Pain Level: 0 nausea: No Vomiting: No Progress Note Post-operative progress note: The patient's latest glucose was around 320, after receiving 300 units of humalog u-500, which is her at home dose. The patient follows with Dr. Marques (endocrinology), and is prescribed 300 units q8h. Given th at she manages her diabetes at home, and the time required for humalog, I am comfortable discharging the patient at this time with clear instructions to monitor her glucose at home and to contact her repairer handtools if glucoses remain uncontrolled. I anticipate her glucose returning WNL now that she received her humalog in PACU. Complications Anesthesia Complication: No
[2025-02-18 09:58] LABS: Bedside Glucose 338 mg/dL (74-106)
== END 2025-02-18 10:07 | disposition home or self-care (01) ==
LOC: EN 05:23 → AC 06:01
PROVIDERS: PCP Family Medicine; Referring Provider Family Medicine; Visit Provider Internal Medicine Gastroenterology
PROC: 0DJD8ZZ Inspection of Lower Intestinal Tract, Via Natural or Artificial Opening Endoscopic (ICD-10-PCS; CPT 45378; principal; 2025-02-18 06:25)
DX: D12.0 Benign neoplasm of cecum (principal); M06.9 Rheumatoid arthritis, unspecified; I50.32 Chronic diastolic (congestive) heart failure; I13.0 Hypertensive heart and chronic kidney disease with heart failure and stage 1 through stage 4 chronic kidney disease, or unspecified chronic kidney disease; E11.22 Type 2 diabetes mellitus with diabetic chronic kidney disease; Z79.4 Long term (current) use of insulin; N18.30 Chronic kidney disease, stage 3 unspecified; D12.3 Benign neoplasm of transverse colon; D50.9 Iron deficiency anemia, unspecified; R19.7 Diarrhea, unspecified; R10.84 Generalized abdominal pain; E78.2 Mixed hyperlipidemia; R10.13 Epigastric pain; R15.9 Full incontinence of feces; Z79.01 Long term (current) use of anticoagulants; Z79.02 Long term (current) use of antithrombotics/antiplatelets; Z79.52 Long term (current) use of systemic steroids; Z79.85 Long-term (current) use of injectable non-insulin antidiabetic drugs; Z79.890 Hormone replacement therapy; Z79.899 Other long term (current) drug therapy
CPT/HCPCS: 44361; 45380; 82962; 88305; 88342; J2405

== ENCOUNTER → 2025-02-26 | Outpatient (CLI) | payer MEDICARE, BC, SELFPAY ==
[2019-03-13 13:12] VITALS: BMI 46.6
[2025-02-26 17:46] LABS: Absolute Neutrophil Count 9.6 X10^3/uL (2.0-7.7); Basophil# 0.06 X10^3/uL; Basophil% 0.5 % (0-1); Eosinophil# 0.14 X10^3/uL; Eosinophils% 1.2 % (0-5); Hematocrit 32.8 % (37-47); Hemoglobin 9.5 g/dL (12.0-15.0); Lymphocyte % 10.8 % (19-41); Mean Corpuscular Hgb 24.9 pg (27.0-32.0); Mean Corpuscular Volume 85.9 fL (81-99); Mean Platelet Vol. 9.6 fl (6.2-12.0); Monocyte# 0.77 X10^3/uL; Monocyte% 6.4 % (0-10); NRBC Flagged by Analyzer 0 % (0-5); Neutrophil % 79.6 % (47-70); Platelet Count 278 K/mm3 (150-450); RBC Distribution Width CV 16.1 % (11.6-14.6); RBC Distribution Width SD 50.7 fl (35.1-43.9); Red Blood Count 3.82 M/mm3 (4.2-5.4); White Blood Count 12.1 K/mm3 (4.4-11.0)
[2025-02-26 18:12] LABS: CRP 3.89 mg/L (0.0-3.0); Erythrocyte Sedimentation Rate 6 mm/hr (0-30)
[2025-02-26 18:17] LABS: ALB/GLOB Ratio 1.7 RATIO (0.9-2.4); Alanine Aminotransfer ALT/SGPT 22 U/L (<=34); Albumin, Serum 3.9 g/dL (3.4-4.8); Alkaline Phosphatase 75 U/L (35-104); Anion Gap 23 (5-15); BUN 8 mg/dL (4-19); Calcium,Total 9.3 mg/dL (7.6-11.0); Carbon Dioxide 22.6 mmol/L (21.0-32.0); Chloride 96 mmol/L (98-108); Creatinine, Serum 1.17 mg/dL (0.70-1.20); EST Glomerular Filtration Rate 50 (>60); Globulin 2.3 g/dL (2.2-4.2); Glucose 333 mg/dL (70-99); Potassium 3.4 mmol/L (3.3-5.1); Protein, Total 6.3 g/dL (5.9-8.4); Sodium Level 142 mmol/L (133-145); Total Bilirubin 0.75 mg/dL (0.00-1.30)
[2025-02-26 18:51] LABS: AST(SGOT) 43 U/L (<=31)
== END | disposition home or self-care (01) ==
LOC: MTLAB 15:27
PROVIDERS: PCP Family Medicine; Referring Provider Internal Medicine Rheumatology; Visit Provider Internal Medicine Rheumatology
DX: M31.6 Other giant cell arteritis (principal); L40.59 Other psoriatic arthropathy; Z79.52 Long term (current) use of systemic steroids
CPT/HCPCS: 36415; 80053; 85025; 85652; 86140

== ENCOUNTER → 2025-03-05 | Outpatient (CLI) | payer MEDICARE, BC, SELFPAY ==
[2019-03-13 13:12] VITALS: BMI 46.6
--- NOTE | 2025-03-05 14:54 | NEURO_ITS ---
NCS and/or EMG Patient Report Ordering Doctor: Willard Friedman DATE OF SERVICE: 03/05/25 Hermelinda presents for electrodiagnostic testing of the lower limbs. She reports numbness and tingling in both legs. Electrodiagnostic findings: Peroneal motor response measures the EDB could not be obtained. Left tibial motor nerve demonstrates normal distal latency with reduced amplitude and normal conduction velocity. Right tibial motor response demonstrates prolonged distal latency with reduced amplitude and reduced con duction velocity. Prolonged tibial F?wave bilaterally. Prolonged right tibial H reflex. Due to excessive bleeding secondary to blood thinner, needle EMG was limited. No denervation was noted in the left tibialis anterior and gastrocnemius. No further muscles were tested. Electrodiagnostic assessment: This is an abnormal study in the lower limbs 1. 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 Study is somewhat limited as needle EMG testing could not be completed. Multi Select Codes Neurology Neurology Interp Codes: 59127-51 Musc test done w/n test comp (interp) (2) and 15792-93 Nrv cndj test 9-10 studies (interp)
--- NOTE | 2025-03-05 14:54 | NEURO_ITS ---
NCS and/or EMG Patient Report Ordering Doctor: Willard Friedman DATE OF SERVICE: 03/05/25 Hermelinda presents for electrodiagnostic testing of the lower limbs. She reports numbness and tingling in both legs. Electrodiagnostic findings: Peroneal motor response measures the EDB could not be obtained. Left tibial motor nerve demonstrates normal distal latency with reduced amplitude and normal conduction velocity. Right tibial motor response demonstrates prolonged distal latency with reduced amplitude and reduced con duction velocity. Prolonged tibial F?wave bilaterally. Prolonged right tibial H reflex. Due to excessive bleeding secondary to blood thinner, needle EMG was limited. No denervation was noted in the left tibialis anterior and gastrocnemius. No further muscles were tested. Electrodiagnostic assessment: This is an abnormal study in the lower limbs 1. 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 Study is somewhat limited as needle EMG testing could not be completed. Multi Select Codes Neurology Neurology Interp Codes: 07930-82 Musc test done w/n test comp (interp) (2) and 54266-16 Nrv cndj test 9-10 studies (interp)
== END | disposition home or self-care (01) ==
LOC: PSN 12:22
PROVIDERS: PCP Family Medicine; Referring Provider Family Medicine; Visit Provider Family Medicine
DX: R20.8 Other disturbances of skin sensation (principal)
CPT/HCPCS: 95885; 95886; 95911

== ENCOUNTER → 2025-04-16 | Outpatient (CLI) | payer MEDICARE, BC, SELFPAY ==
[2019-03-13 13:12] VITALS: BMI 46.6
[2025-04-16 18:04] LABS: CRP < 3.00 mg/L (0.0-3.0)
== END | disposition home or self-care (01) ==
LOC: MTLAB 15:38
PROVIDERS: PCP Family Medicine; Referring Provider Internal Medicine Rheumatology; Visit Provider Internal Medicine Rheumatology
DX: M31.6 Other giant cell arteritis (principal); L40.59 Other psoriatic arthropathy; M17.0 Bilateral primary osteoarthritis of knee; Z79.52 Long term (current) use of systemic steroids
CPT/HCPCS: 36415; 85652; 86140

== ENCOUNTER → 2025-04-23 | Outpatient (CLI) | payer MEDICARE, BC, SELFPAY ==
[2019-03-13 13:12] VITALS: BMI 46.6
[2025-04-23 16:50] LABS: Hematocrit 30.8 % (37-47); Hemoglobin 8.9 g/dL (12.0-15.0); Immature Granulocytes Count 0.120 X10^3/uL (0.0-0.0); Mean Corp Hgb Conc 28.9 g/dL (32-36); Mean Corpuscular Volume 83.7 fL (81-99); Mean Platelet Vol. 9.8 fl (6.2-12.0); NRBC Flagged by Analyzer 0.2 % (0-5); Platelet Count 267 K/mm3 (150-450); RBC Distribution Width CV 17.7 % (11.6-14.6); RBC Distribution Width SD 53.9 fl (35.1-43.9); Red Blood Count 3.68 M/mm3 (4.2-5.4); White Blood Count 8.8 K/mm3 (4.4-11.0)
== END | disposition home or self-care (01) ==
LOC: LAB 16:00
PROVIDERS: PCP Family Medicine; Referring Provider Physician Assistant Medical; Visit Provider Physician Assistant Medical
DX: D50.9 Iron deficiency anemia, unspecified (principal)
CPT/HCPCS: 36415; 85025

== ENCOUNTER → 2025-05-15 | Outpatient (CLI) | payer MEDICARE, BC, SELFPAY ==
[2019-03-13 13:12] VITALS: BMI 46.6
[2025-05-15 13:26] VITALS: PULSE 117; PULSE 124; PULSE 125; PULSE 127; PULSE 82; PULSE 89; PULSE 97; O2SAT 92; O2SAT 93; O2SAT 94; O2SAT 95; O2SAT 98
--- NOTE | 2025-05-15 13:29 | CPS ---
Patient uses 2 lpm O2 at home with her Bipap. Patient was able to walk the entire 6 minutes with her walker with no breaks but was severely short of breath.
--- NOTE | 2025-05-19 09:58 | WT_ITS ---
PSN 6 Minute Walk Test 6 Minute Walk Test 6 Minute Walk Test: 6 Minute Walk Test PSN:6-Minute Walk Test Start: 05/15/25 13:26 Freq: Status: Active Protocol: [id number] Document 05/15/25 13:26 BERTOOREN (Rec: 05/15/25 13:31 BELINDA [id number]) 6 Minute Walk Test Date Performed 05/15/25 Time Performed 12:30 Height 5 ft 2 in Weight: 290 lb Weight in Pounds [address]: Cathy Darling [employer] Assistive device Walker used: Pre-test Oxygen Delivery Room Air Method Pulse Ox (%) 98 Pulse Rate (60-100 89 beats/min) 1st minute Oxygen Delivery Room Air Method Pulse Ox (%) 92 Pulse Rate (60-100 97 beats/min) 2nd minute Oxygen Delivery Room Air Method Pulse Ox (%) 93 Pulse Rate (60-100 117 H beats/min) 3rd minute Oxygen Delivery Room Air Method Pulse Ox (%) 95 Pulse Rate (60-100 124 H beats/min) Reported Symptoms Increased Work of Breathing 4th minute Oxygen Delivery Room Air Method Pulse Ox (%) 94 Pulse Rate (60-100 127 H beats/min) Reported Symptoms Increased Work of Breathing 5th minute Oxygen Delivery Room Air Method Pulse Ox (%) 92 Pulse Rate (60-100 125 H beats/min) Reported Symptoms Increased Work of Breathing 6th minute Oxygen Delivery Room Air Method Pulse Ox (%) 93 Pulse Rate (60-100 125 H beats/min) Dyspnea Arielle Scale ( 5 0-10) Exertion Arielle Scale 14 (6-20) Reported Symptoms Increased Work of Breathing Post-test Oxygen Delivery Room Air Method Pulse Ox (%) 98 Pulse Rate (60-100 82 beats/min) Full Laps Walked 10 Partial Lap, Number 10 of Tiles Walked Total Distance 600 Walked (ft) 05/15/25 13:29 Cardiopulmonary Services by Temi Hernandez Patient uses 2 lpm O2 at home with her Bipap. Patient was able to walk the entire 6 minutes with her walker with no breaks but was severely short of breath. Initialized on 05/15/25 13:29 - END OF NOTE Interpretation Interpretation: The patient ambulated 600 feet over the course of 6 minutes beginning on room air with use of a walker. Pretesting oxygen saturation was noted to be 98% on room air. With ambulation, the kenna oxygen saturation was 92%. This represents a significant exertional oxygen desaturation, consistent with a pulmonary limitation to exercise tolerance. Recommendations Recommendations: There is no indication for the use of supplemental oxygen at this time. However, close interval follow-up is recommended, given the degree of oxygen desaturation noted during this study.
== END | disposition home or self-care (01) ==
LOC: PSN 12:18
PROVIDERS: PCP Family Medicine; Referring Provider Nurse Practitioner Acute Care; Visit Provider Nurse Practitioner Acute Care
DX: R06.09 Other forms of dyspnea (principal)
CPT/HCPCS: 94618

== ENCOUNTER → 2025-05-28 | Outpatient (CLI) | payer MEDICARE, BC, SELFPAY ==
[2019-03-13 13:12] VITALS: BMI 46.6
== END | disposition home or self-care (01) ==
LOC: LABSPEC 14:32
PROVIDERS: PCP Family Medicine; Referring Provider Internal Medicine Medical Oncology; Visit Provider Internal Medicine Medical Oncology
DX: D64.9 Anemia, unspecified (principal)
CPT/HCPCS: 82274

== ENCOUNTER → 2025-06-10 | Outpatient (CLI) | payer MEDICARE, BC, SELFPAY ==
[2019-03-13 13:12] VITALS: BMI 46.6
[2025-06-10 14:22] LABS: CRP 25.10 mg/L (0.0-3.0)
== END | disposition home or self-care (01) ==
LOC: PAVLAB 13:25
PROVIDERS: PCP Family Medicine; Referring Provider Internal Medicine Rheumatology; Visit Provider Internal Medicine Rheumatology
DX: M31.6 Other giant cell arteritis (principal); L40.8 Other psoriasis; Z79.52 Long term (current) use of systemic steroids
CPT/HCPCS: 36415; 85652; 86140

== ENCOUNTER → 2025-07-10 | Outpatient (CLI) | payer MEDICARE, BC, SELFPAY ==
[2019-03-13 13:12] VITALS: BMI 46.6
--- NOTE | 2025-07-10 14:40 | BI_ITS ---
EXAM: SCRN MAMM (CAD)W/JAYNE BILAT DATE: 07/10/2025 CLINICAL HISTORY: F, Age 69 y/o , SCREENING No family history. TECHNIQUE: Procedure Code: [id number] Modality: MG Procedure: SCRN MAMM (CAD)W/JAYNE BILAT COMPARISON: Prior exam(s) dated July 01, 2020.. FINDINGS: TISSUE DENSITY: There are scattered areas of fibroglandular density. Bilateral Breast Mammographic Findings: No significant masses, calcifications or other abnormalities are identified. Stable bilateral secretory calcifications. No suspicious masses, areas of developing architectural distortion, or suspicious calcifications. There has been no significant interval change. BI/SCRN MAMM (CAD)W/JAYNE BILAT IMPRESSION: Stable bilateral screening mammogram. OVERALL FINAL ASSESSMENT BI-RADS 2: BENIGN RECOMMENDATION: Routine annual follow-up in 1 Year Additional Recommendation none A letter with findings and recommendations will be mailed to the patient. Reading Location: [facility]
== END | disposition home or self-care (01) ==
LOC: OPBI 14:35
PROVIDERS: PCP Family Medicine; Referring Provider Family Medicine; Visit Provider Family Medicine
DX: Z12.31 Encounter for screening mammogram for malignant neoplasm of breast (principal)
CPT/HCPCS: 77063; 77067